=== PATIENT | female | born 1965 ===

== ENCOUNTER 2020-03-19 13:12 | Outpatient (REF) | payer OTHER, SELFPAY ==
[2020-03-19 14:03] LABS: Basophils Percent Auto 0.3 % (0-2); Eosinophils Percent Auto 1.1 % (0-4); Hematocrit 34.5 % (37-47); Hemoglobin 10.8 g/dl (12.0-16.0); Imm Gran Abs Auto 0.01 X10*3/uL (0.00-0.03); Imm Gran Pct Auto 0.3 % (0.0-0.4); Lymphocytes Absolute Auto 0.6 X10*3/uL (1.2-4.9); Lymphocytes Percent Auto 16.9 % (20-40); MANUAL DIFF FLAG SCAN; Mean Corpuscular HGB Conc 31.3 g/dl (31.0-35.0); Mean Corpuscular Hemoglobin 28.4 pg (27.0-33.0); Mean Corpuscular Volume 90.8 fL (80-98); Mean Platelet Volume 9.9 fL (9.4-12.3); Monocytes Absolute Auto 0.3 X10*3/uL (0.1-1.2); Monocytes Percent Auto 6.7 % (2-11); Neutrophils Absolute Auto 2.8 X10*3/uL (2.0-8.3); Neutrophils Percent Auto 74.7 % (45-73); Platelet Count 166 X10*3/uL (160-400); Red Cell Distribution Width 12.4 % (11.0-16.0); SCAN SMEAR FLAG 1; White Blood Count 3.7 X10*3/uL (4.8-10.8)
[2020-03-19 14:36] LABS: Alanine Aminotransferase 18 U/L (0-31); Albumin Level 4.2 g/dL (3.5-5.0); Alkaline Phosphatase 45 U/L (39-117); Anion Gap 12 (12-20); Aspartate Amino Transferase 18 U/L (5-31); Bilirubin Total 0.4 mg/dL (0.0-1.0); Blood Urea Nitrogen 21 mg/dL (9-16); Calcium 8.8 mg/dL (8.4-10.2); Carbon Dioxide 27 mmol/L (22-29); Chloride 103 mmol/L (96-108); Estimated Glomerular Filt Rate > 60; Glucose Random 76 mg/dL (60-115); Sodium 138 mmol/L (135-145); Total Protein 6.6 g/dL (6.5-8.0)
[2020-03-19 14:44] LABS: SLIDE REVIEW VERIFIED
[2020-03-20 13:01] LABS: CA 27.29 23 U/mL (<38)
== END 2020-03-19 13:13 | disposition home or self-care (01) ==
LOC: HO.LAB 13:12
PROVIDERS: Visit Provider Internal Medicine Medical Oncology
DX: D72.819 Decreased white blood cell count, unspecified (principal)
CPT/HCPCS: 36415; 80053; 85025; 86300

== ENCOUNTER 2020-03-30 11:50 | Outpatient (REF) | payer OTHER, SELFPAY ==
[2020-03-30 13:22] LABS: MANUAL DIFF FLAG NO
[2020-03-30 13:28] LABS: Basophils Percent Auto 0.3 % (0-2); Eosinophils Percent Auto 0.6 % (0-4); Hematocrit 35.1 % (37-47); Hemoglobin 11.1 g/dl (12.0-16.0); Imm Gran Abs Auto 0.02 X10*3/uL (0.00-0.03); Imm Gran Pct Auto 0.6 % (0.0-0.4); Lymphocytes Absolute Auto 0.8 X10*3/uL (1.2-4.9); Lymphocytes Percent Auto 22.8 % (20-40); Mean Corpuscular HGB Conc 31.6 g/dl (31.0-35.0); Mean Corpuscular Hemoglobin 28.9 pg (27.0-33.0); Mean Corpuscular Volume 91.4 fL (80-98); Mean Platelet Volume 9.8 fL (9.4-12.3); Monocytes Absolute Auto 0.3 X10*3/uL (0.1-1.2); Monocytes Percent Auto 9.8 % (2-11); Neutrophils Absolute Auto 2.2 X10*3/uL (2.0-8.3); Neutrophils Percent Auto 65.9 % (45-73); Platelet Count 177 X10*3/uL (160-400); Red Blood Count 3.84 X10*6/uL (4.20-5.50); White Blood Count 3.4 X10*3/uL (4.8-10.8)
[2020-03-30 13:56] LABS: Glucose Urine UA NEG (NEG); Leukocyte Esterase Urine NEG (NEG); Nitrite Urine NEG (NEG); Urine Blood NEG (NEG); Urine Ketones NEG (NEG); Urine Protein NEG (NEG-TRACE)
[2020-03-30 13:59] LABS: Alanine Aminotransferase 24 U/L (0-31); Albumin Level 4.3 g/dL (3.5-5.0); Alkaline Phosphatase 41 U/L (39-117); Anion Gap 12 (12-20); Aspartate Amino Transferase 22 U/L (5-31); Bilirubin Total 0.4 mg/dL (0.0-1.0); Blood Urea Nitrogen 18 mg/dL (9-16); C Reactive Protein 0.05 mg/dL (< or = 0.50); Calcium 8.7 mg/dL (8.4-10.2); Carbon Dioxide 29 mmol/L (22-29); Chloride 104 mmol/L (96-108); Estimated Glomerular Filt Rate > 60; Glucose Random 74 mg/dL (60-115); Potassium 4.4 mmol/l (3.3-5.1); Sodium 141 mmol/L (135-145); Total Protein 6.9 g/dL (6.5-8.0)
[2020-03-30 14:06] LABS: Appearance Urine HAZY; Color Urine YELLOW
[2020-03-30 14:13] LABS: Erythrocyte Sedimentation Rate 7 MM/HR (0-20)
[2020-03-31 12:08] LABS: Complement C3 99 mg/dL (83-193)
[2020-04-02 13:53] LABS: DNAds, Crithidia Antibody Negative (Negative)
== END 2020-03-30 11:51 | disposition home or self-care (01) ==
LOC: HO.LAB 11:50
PROVIDERS: PCP Internal Medicine; Visit Provider Student in an Organized Health Care Education/Training Program
DX: M05.79 Rheumatoid arthritis with rheumatoid factor of multiple sites without organ or systems involvement (principal); M32.9 Systemic lupus erythematosus, unspecified; I73.00 Raynaud's syndrome without gangrene
CPT/HCPCS: 36415; 80053; 81003; 85025; 85652; 86140; 86160; 86255

== ENCOUNTER → 2020-04-03 11:04 | Outpatient (BNVA) | payer OTHER, SELFPAY | PROVIDERS: PCP Internal Medicine; Referring Provider Internal Medicine; Visit Provider Nurse Practitioner | DX: Z76.89 Persons encountering health services in other specified circumstances (principal) ==

== ENCOUNTER 2020-05-26 15:23 | Outpatient (REF) | payer OTHER, SELFPAY ==
--- NOTE | 2020-05-26 17:15 | XR_ITS ---
EXAMINATION: XR MANDIBLE CLINICAL INFORMATION: Jaw pain. COMPARISON: None. TECHNIQUE: 4 views of the mandible were obtained. FINDINGS: No acute fracture or dislocation. No lytic or blastic osseous lesion. Mild asymmetric sclerosis at the right temporomandibular joint. The visualized paraspinal soft tissues are clear. No air-fluid level. No abnormal soft tissue calcification. XR/XR mandible min 4V IMPRESSION: Asymmetric sclerosis at the right temporomandibular joint.
[2020-05-26 18:20] LABS: Basophils Percent Auto 0.2 % (0-2); Eosinophils Percent Auto 0.5 % (0-4); Hematocrit 36.8 % (37-47); Hemoglobin 11.5 g/dl (12.0-16.0); Imm Gran Abs Auto 0.01 X10*3/uL (0.00-0.03); Imm Gran Pct Auto 0.2 % (0.0-0.4); Lymphocytes Absolute Auto 0.7 X10*3/uL (1.2-4.9); Lymphocytes Percent Auto 17.7 % (20-40); MANUAL DIFF FLAG NO; Mean Corpuscular HGB Conc 31.3 g/dl (31.0-35.0); Mean Corpuscular Hemoglobin 28.4 pg (27.0-33.0); Mean Corpuscular Volume 90.9 fL (80-98); Mean Platelet Volume 10.1 fL (9.4-12.3); Monocytes Absolute Auto 0.3 X10*3/uL (0.1-1.2); Monocytes Percent Auto 7.8 % (2-11); Neutrophils Percent Auto 73.6 % (45-73); Platelet Count 190 X10*3/uL (160-400); Red Blood Count 4.05 X10*6/uL (4.20-5.50); Red Cell Distribution Width 12.4 % (11.0-16.0); White Blood Count 4.1 X10*3/uL (4.8-10.8)
[2020-05-26 18:30] LABS: Glucose Urine UA NEG (NEG); Leukocyte Esterase Urine TRACE (NEG); Nitrite Urine NEG (NEG); Specific Gravity - Urine >= 1.030 (1.005-1.025); Urine Blood NEG (NEG); Urine Ketones NEG (NEG); Urine Protein TRACE MG/DL (NEG-TRACE)
[2020-05-26 18:32] LABS: Appearance Urine CLOUDY; Color Urine DARK YELLOW
[2020-05-26 18:41] LABS: Bacteria Urine 1+ /LPF; Calcium Oxalate Crystals Urine 1+ /LPF; Mucus Urine 1+ /LPF; RBC Urine 0 /HPF (0); Squamous Epithelial Cell Urine TRACE /LPF
[2020-05-26 18:54] LABS: Alanine Aminotransferase 36 U/L (0-31); Albumin Level 4.4 g/dL (3.5-5.0); Alkaline Phosphatase 50 U/L (39-117); Anion Gap 13 (12-20); Aspartate Amino Transferase 27 U/L (5-31); Bilirubin Total 0.6 mg/dL (0.0-1.0); Blood Urea Nitrogen 13 mg/dL (9-16); C Reactive Protein 0.12 mg/dL (< or = 0.50); Calcium 9.3 mg/dL (8.4-10.2); Carbon Dioxide 31 mmol/L (22-29); Chloride 105 mmol/L (96-108); Estimated Glomerular Filt Rate > 60; Glucose Random 76 mg/dL (60-115); Potassium 3.8 mmol/l (3.3-5.1); Sodium 145 mmol/L (135-145)
[2020-05-26 19:09] LABS: Erythrocyte Sedimentation Rate 12 MM/HR (0-20)
[2020-05-28 12:02] LABS: Complement C3 72 mg/dL (83-193)
[2020-05-28 12:26] LABS: Anti DNA DS Antibody 1 IU/mL
== END 2020-05-26 15:24 | disposition home or self-care (01) ==
LOC: HO.LAB 15:23
PROVIDERS: PCP Internal Medicine; Referring Provider Internal Medicine; Visit Provider Student in an Organized Health Care Education/Training Program
DX: M32.9 Systemic lupus erythematosus, unspecified (principal); R68.84 Jaw pain; E03.9 Hypothyroidism, unspecified
CPT/HCPCS: 36415; 70110; 80053; 81001; 85025; 85652; 86140; 86160; 86225; 99212

== ENCOUNTER 2020-06-01 12:24 | Outpatient (REF) | payer OTHER, SELFPAY ==
[2020-06-01 13:55] LABS: Alanine Aminotransferase 30 U/L (0-31); Albumin Level 4.2 g/dL (3.5-5.0); Alkaline Phosphatase 40 U/L (39-117); Anion Gap 12 (12-20); Aspartate Amino Transferase 21 U/L (5-31); Bilirubin Total 0.6 mg/dL (0.0-1.0); Blood Urea Nitrogen 18 mg/dL (9-16); Calcium 8.7 mg/dL (8.4-10.2); Carbon Dioxide 29 mmol/L (22-29); Chloride 107 mmol/L (96-108); Estimated Glomerular Filt Rate > 60; Glucose Fasting 88 mg/dL (60-99); Potassium 4.7 mmol/L (3.3-5.1); Sodium 143 mmol/L (135-145); Total Protein 6.7 g/dL (6.5-8.0)
[2020-06-01 14:03] LABS: Glucose Urine UA NEG (NEG); Leukocyte Esterase Urine 1+ (NEG); Nitrite Urine NEG (NEG); Specific Gravity - Urine >= 1.030 (1.005-1.025); Urine Blood TRACE (NEG); Urine Ketones NEG (NEG); Urine Protein NEG (NEG-TRACE)
[2020-06-01 14:06] LABS: Appearance Urine HAZY; Color Urine YELLOW
[2020-06-01 14:16] LABS: Free T4 (Free Thyroxine) 1.22 ng/dL (0.71-1.85); Thyroid Stimulating Hormone 0.39 uIU/mL (0.32-4.0); Vitamin D 25-OH Total 82.9 ng/mL (>30)
[2020-06-01 14:31] LABS: Bacteria Urine TRACE /LPF; Mucus Urine 4+ /LPF; RBC Urine 0-2 /HPF (0); Squamous Epithelial Cell Urine 2+ /LPF
[2020-06-04 16:42] LABS: N-Telopeptide 34 (see note); NTXCreaRU 207 mg/dL (20-275)
== END 2020-06-01 12:25 | disposition home or self-care (01) ==
LOC: HO.LAB 12:24
PROVIDERS: Internal Medicine Endocrinology, Diabetes & Metabolism; PCP Internal Medicine; Visit Provider Student in an Organized Health Care Education/Training Program
DX: M32.9 Systemic lupus erythematosus, unspecified (principal)
CPT/HCPCS: 36415; 80053; 81001; 82306; 82523; 84439; 84443

== ENCOUNTER → 2020-06-04 12:48 | Outpatient (BNVA) | payer OTHER, SELFPAY | PROVIDERS: PCP Internal Medicine; Visit Provider Internal Medicine Endocrinology, Diabetes & Metabolism ==

== ENCOUNTER 2020-06-05 14:21 | Outpatient (REF) | payer OTHER, SELFPAY | END 2020-06-05 14:22 | disposition home or self-care (01) | LOC: HO.LAB 14:21 | PROVIDERS: PCP Internal Medicine; Visit Provider Internal Medicine | DX: Z20.822 Contact with and (suspected) exposure to COVID-19 (principal) | CPT/HCPCS: 36415; C9803; U0003; U0005 ==

== ENCOUNTER → 2020-06-12 10:06 | Outpatient (BNVA) | payer OTHER, SELFPAY | PROVIDERS: PCP Internal Medicine; Visit Provider Nurse Practitioner ==

== ENCOUNTER 2020-06-12 16:46 | Outpatient (REF) | payer OTHER, SELFPAY | END 2020-06-12 16:47 | disposition home or self-care (01) | LOC: HO.LAB 16:46 | PROVIDERS: Visit Provider Internal Medicine | DX: Z20.822 Contact with and (suspected) exposure to COVID-19 (principal) | CPT/HCPCS: 36415; C9803; U0003; U0005 ==

== ENCOUNTER → 2020-07-02 12:46 | Outpatient (BNVA) | payer OTHER, SELFPAY | PROVIDERS: PCP Internal Medicine; Visit Provider Nurse Practitioner ==

== ENCOUNTER 2020-08-01 10:19 | Outpatient (REF) | payer OTHER, SELFPAY ==
[2020-08-01 11:30] LABS: MANUAL DIFF FLAG NO
[2020-08-01 11:37] LABS: Basophils Percent Auto 0.6 % (0-2); Eosinophils Percent Auto 0.6 % (0-4); Hematocrit 36.1 % (37-47); Hemoglobin 11.3 g/dl (12.0-16.0); Lymphocytes Absolute Auto 0.8 X10*3/uL (1.2-4.9); Lymphocytes Percent Auto 22.9 % (20-40); Mean Corpuscular HGB Conc 31.3 g/dl (31.0-35.0); Mean Corpuscular Hemoglobin 28.3 pg (27.0-33.0); Mean Corpuscular Volume 90.3 fL (80-98); Mean Platelet Volume 9.6 fL (9.4-12.3); Monocytes Absolute Auto 0.2 X10*3/uL (0.1-1.2); Monocytes Percent Auto 7.1 % (2-11); Neutrophils Absolute Auto 2.3 X10*3/uL (2.0-8.3); Neutrophils Percent Auto 68.8 % (45-73); Platelet Count 178 X10*3/uL (160-400); Red Cell Distribution Width 12.5 % (11.0-16.0); White Blood Count 3.4 X10*3/uL (4.8-10.8)
[2020-08-01 12:12] LABS: Alanine Aminotransferase 36 U/L (0-31); Albumin Level 4.3 g/dL (3.5-5.0); Alkaline Phosphatase 44 U/L (39-117); Anion Gap 13 (12-20); Aspartate Amino Transferase 29 U/L (5-31); Bilirubin Total 0.3 mg/dL (0.0-1.0); Blood Urea Nitrogen 18 mg/dL (9-16); Calcium 8.9 mg/dL (8.4-10.2); Carbon Dioxide 28 mmol/L (22-29); Chloride 104 mmol/L (96-108); Estimated Glomerular Filt Rate > 60; Glucose Random 75 mg/dL (60-115); Potassium 4.1 mmol/L (3.3-5.1); Sodium 141 mmol/L (135-145); Total Protein 7.1 g/dL (6.5-8.0)
[2020-08-01 12:37] LABS: Vitamin D 25-OH Total 59.1 ng/mL (>30)
[2020-08-03 11:11] LABS: CA 27.29 24 U/mL (<38)
== END 2020-08-01 10:20 | disposition home or self-care (01) ==
LOC: HO.LAB 10:19
PROVIDERS: Absent Provider Internal Medicine Endocrinology, Diabetes & Metabolism; PCP Internal Medicine; Visit Provider Internal Medicine Medical Oncology
DX: E55.9 Vitamin D deficiency, unspecified (principal); D72.819 Decreased white blood cell count, unspecified
CPT/HCPCS: 36415; 80053; 82306; 85025; 86300

== ENCOUNTER → 2020-08-26 16:23 | Outpatient (BNVA) | payer OTHER, SELFPAY | PROVIDERS: Visit Provider Student in an Organized Health Care Education/Training Program | DX: M05.9 Rheumatoid arthritis with rheumatoid factor, unspecified (principal); M32.9 Systemic lupus erythematosus, unspecified; I73.00 Raynaud's syndrome without gangrene | CPT/HCPCS: 99212 ==

== ENCOUNTER 2020-09-07 07:54 | Day surgery (SDC) | payer OTHER, SELFPAY ==
[2020-09-02 10:16] VITALS: BMI 18.8
--- NOTE | 2020-09-03 13:26 | P.CONAN_ITS ---
Documented by User: Henny Dolly 09/03/20 13:28 HPI - Anesthesia Eval Consult details Narrative: 55yo F for Upper Endoscopy Multiple med allergies PMFSH Active Problems Active Problems: All Active Problems (Updated 07/02/20 @ 13:51 by AICHA Manzo) Small bowel motility disorder (Acute) Tubular adenoma of colon (Acute) Chronic gastritis (Acute) Vitamin D deficiency (Acute) Hypothyroidism (Acute) Osteoporosis (Acute) Raynaud's disease without gangrene (Acute) Lupus (systemic lupus erythematosus) (Acute) Seropositive rheumatoid arthritis (Acute) Headache (Acute) Jaw pain (Acute) Small bowel motility disorder (Acute) GERD (gastroesophageal reflux disease) (Acute) Chronic idiopathic constipation (Acute) Bipolar depression (Acute) Anxiety (Acute) Primary insomnia (Acute) History of breast cancer (Acute) Polyarthralgia (Acute) Leukopenia (Acute) Acquired hypothyroidism (Acute) Systemic lupus erythematosus (Acute) Gingivitis (Acute) Left temporomandibular joint disorder, unspecified (Acute) Past Medical History Medical History Acquired hypothyroidism Anxiety Bipolar depression Constipation Gingivitis Headache History of breast cancer Hypothyroidism Jaw pain Left temporomandibular joint disorder, unspecified Leukopenia Lupus (systemic lupus erythematosus) Osteoporosis Polyarthralgia Primary insomnia Raynaud's disease without gangrene Seropositive rheumatoid arthritis Systemic lupus erythematosus Vitamin D deficiency Family History Family History Father Hypertension Prostate cancer Mother Breast cancer Hypertension Asthma Maternal Aunt Breast cancer Maternal Grandmother Colon cancer Maternal Aunt Breast cancer Surgical History Surgical History History of bilateral mastectomy History of section History of cholecystectomy History of esophagogastroduodenoscopy (EGD) History of total abdominal hysterectomy and bilateral salpingo-oophorectomy History of tubal ligation Hx of colonoscopy Social History Social History Household Members: Children Household Members Other:: 2 daughters Alcohol intake: current Alcohol intake frequency: does not drink Smoking Status: Never smoker Meds Allergies Allergy/AdvReac Type Severity Reaction Status Date / Time codeine [CODEINE] Allergy Intermediate ITCHING Verified 08/26/20 16:27 hydroxychloroquine Allergy Intermediate VOMITING Verified 08/26/20 16:27 [From PLAQUENIL] morphine [MORPHINE] Allergy Intermediate ITCHING Verified 08/26/20 16:27 oxycodone [From PERCOCET] Allergy Intermediate ITCHING Verified 08/26/20 16:27 tramadol [From ULTRAM] Allergy Intermediate ITCHING Verified 08/26/20 16:27 Cortisone Allergy Unknown Unknown Verified 08/26/20 16:27 levothyroxine sodium Allergy Unknown rash,throat Verified 08/26/20 16:27 closes prednisone Allergy Unknown unknown Verified 08/26/20 16:27 Corticosteroids AdvReac Severe DIFFICULTY Verified 07/02/20 12:50 (Glucocorticoids) BREATHING [CORTICOSTEROIDS (GLUCOCORTICOIDS)] acetaminophen [Percocet] AdvReac Unknown Unknown Verified 07/02/20 12:50 duloxetine AdvReac Unknown Unknown Verified 07/02/20 12:50 Home Medications Medication Instructions Recorded Confirmed Last Taken Type bupropion HCl 300 mg 24 hr tablet, 300 mg PO DAILY 02/24/20 06/04/20 Unknown History extended release docusate sodium 100 mg capsule 100 mg PO DAILY 04/03/20 06/04/20 Unknown History trazodone 150 mg tablet 150 mg PO BEDTIME tab 05/25/20 06/04/20 Unknown History aripiprazole 5 mg tablet 5 mg PO DAILY 06/04/20 06/04/20 Unknown History bupropion HCl 150 mg 24 hr tablet, 150 mg PO QAM 06/04/20 06/04/20 Unknown History extended release orphenadrine citrate 100 mg 100 mg PO BID tab 06/04/20 06/04/20 Unknown History tablet,extended release bisacodyl 5 mg tablet,delayed 10 mg PO DAILY tab 06/12/20 06/12/20 Unknown History release Exam Exam Date and Time: September 03, 2020 1326 Height,Weight and Vital Signs: Height 5 ft 2 in Weight 46.72 kg Pertinent Lab Results Pertinent Lab Results: Laboratory Tests 08/01/20 08/01/20 10:40 10:40 WBC 3.4 L Hgb 11.3 L Hct 36.1 L Plt Count 178 Sodium 141 Potassium 4.1 Chloride 104 Carbon Dioxide 28 BUN 18 H Creatinine 0.68 Assessment and Plan Assessment Anesthesia Assessment: Chart Reviewed Documented by User: Ursula Paz 09/07/20 14:09 [facility] Past Medical History Medical History Acquired hypothyroidism Anxiety Bipolar depression Constipation Gingivitis Headache History of breast cancer Hypothyroidism Jaw pain Left temporomandibular joint disorder, unspecified Leukopenia Lupus (systemic lupus erythematosus) Osteoporosis Polyarthralgia Primary insomnia Raynaud's disease without gangrene Seropositive rheumatoid arthritis Systemic lupus erythematosus Vitamin D deficiency Family History Family History Father Hypertension Prostate cancer Mother Breast cancer Hypertension Asthma Maternal Aunt Breast cancer Maternal Grandmother Colon cancer Maternal Aunt Breast cancer Family history of problems with anesthesia: No Surgical History Surgical History History of bilateral mastectomy History of section History of cholecystectomy History of esophagogastroduodenoscopy (EGD) History of total abdominal hysterectomy and bilateral salpingo-oophorectomy History of tubal ligation Hx of colonoscopy History of Problems with Anesthesia: No Social History Social History Household Members: Children Household Members Other:: 2 daughters Alcohol intake: current Alcohol intake frequency: does not drink Smoking Status: Never smoker Meds Allergies Allergy/AdvReac Type Severity Reaction Status Date / Time codeine [CODEINE] Allergy Intermediate ITCHING Verified 08/26/20 16:27 hydroxychloroquine Allergy Intermediate VOMITING Verified 08/26/20 16:27 [From PLAQUENIL] morphine [MORPHINE] Allergy Intermediate ITCHING Verified 08/26/20 16:27 oxycodone [From PERCOCET] Allergy Intermediate ITCHING Verified 08/26/20 16:27 tramadol [From ULTRAM] Allergy Intermediate ITCHING Verified 08/26/20 16:27 Cortisone Allergy Unknown Unknown Verified 08/26/20 16:27 levothyroxine sodium Allergy Unknown rash,throat Verified 08/26/20 16:27 closes prednisone Allergy Unknown unknown Verified 08/26/20 16:27 Corticosteroids AdvReac Severe DIFFICULTY Verified 07/02/20 12:50 (Glucocorticoids) BREATHING [CORTICOSTEROIDS (GLUCOCORTICOIDS)] acetaminophen [Percocet] AdvReac Unknown Unknown Verified 07/02/20 12:50 duloxetine AdvReac Unknown Unknown Verified 07/02/20 12:50 Home Medications Medication Instructions Recorded Confirmed Last Taken Type bupropion HCl 300 mg 24 hr tablet, 300 mg PO DAILY 02/24/20 06/04/20 Unknown History extended release docusate sodium 100 mg capsule 100 mg PO DAILY 04/03/20 06/04/20 Unknown History trazodone 150 mg tablet 150 mg PO BEDTIME tab 05/25/20 06/04/20 Unknown History aripiprazole 5 mg tablet 5 mg PO DAILY 06/04/20 06/04/20 Unknown History bupropion HCl 150 mg 24 hr tablet, 150 mg PO QAM 06/04/20 06/04/20 Unknown History extended release orphenadrine citrate 100 mg 100 mg PO BID tab 06/04/20 06/04/20 Unknown History tablet,extended release bisacodyl 5 mg tablet,delayed 10 mg PO DAILY tab 06/12/20 06/12/20 Unknown History release Exam Height,Weight and Vital Signs: Vital Signs Temp Pulse Resp BP Pulse Ox 97.6 F 72 15 127/78 99 09/07/20 08:53 09/07/20 08:53 09/07/20 08:53 09/07/20 08:53 09/07/20 08:53 Narrative Narrative: Jaw clicks occasionally but does not think dislocates Airway Mallampati Class: IV (Limited opening secondary to pain and ? TMJ syndrome. Sli ght overbite) TM Dist: >3cm Neck ROM: Full Heart: RRR Lungs: CTAB Assessment and Plan Assessment Anesthesia Assessment: Anesthesia Plan Discussed and Chart Reviewed Final Anesthetic Review NPO: Yes ASA Class: III Final Preanesthetic Review: No Changes in Pt Med Stat, Meds/Allgs Chart Reviewed, Consent Obtained/Reviewed and Anes Risks/Benef Reviewed Patient Risk: Intermediate Procedure Risk: Low Assessment/Block/Sedation in SS: Assess/Block/Sedation-SS Anesthetic Plan Anesthetic Plan: MAC: Disposition: Standard PACU
[2020-09-07 08:53] VITALS: BP 127/78; PULSE 72; RESP 15; TEMP 36.4; O2SAT 99; BMI 18.8
[2020-09-07] MEDS: Lactated Ringers 1,000 ML 100 ML IVCONT (09:11)
--- NOTE | 2020-09-07 09:12 | MHC.SHP ---
Pre-Procedural Eval Section B Chief Complaint: GERD Relevant Family History (Specify if Yes): No Relevant Social History: None Present Medications: see Short Stay Collaborative assessment Medical History: Significant History (Acquired hypothyroidism Anxiety Bipolar depression Constipation Gingivitis Headache History of breast cancer Hypothyroidism Jaw pain Left temporomandibular joint disorder, unspecified Leukopenia Lupus (systemic lupus erythematosus) Osteoporosis Polyarthralgia Primary insomnia Raynaud's disease witho) History of Previous Operations: Relevant previous surgery/procedure and date(s) (History of bilateral mastectomy History of section History of cholecystectomy History of esophagogastroduodenoscopy (EGD) History of total abdominal hysterectomy and bilateral salpingo-oophorectomy History of tubal ligation Hx of colonoscopy) Allergies: Allergies Allergy/AdvReac Type Severity Reaction Status Date / Time codeine [CODEINE] Allergy Intermediate ITCHING Verified 08/26/20 16:27 hydroxychloroquine Allergy Intermediate VOMITING Verified 08/26/20 16:27 [From PLAQUENIL] morphine [MORPHINE] Allergy Intermediate ITCHING Verified 08/26/20 16:27 oxycodone [From PERCOCET] Allergy Intermediate ITCHING Verified 08/26/20 16:27 tramadol [From ULTRAM] Allergy Intermediate ITCHING Verified 08/26/20 16:27 Cortisone Allergy Unknown Unknown Verified 08/26/20 16:27 levothyroxine sodium Allergy Unknown rash,throat Verified 08/26/20 16:27 closes prednisone Allergy Unknown unknown Verified 08/26/20 16:27 Corticosteroids AdvReac Severe DIFFICULTY Verified 07/02/20 12:50 (Glucocorticoids) BREATHING [CORTICOSTEROIDS (GLUCOCORTICOIDS)] acetaminophen [Percocet] AdvReac Unknown Unknown Verified 07/02/20 12:50 duloxetine AdvReac Unknown Unknown Verified 07/02/20 12:50 Review of Systems Sugical H&P ROS: Negative: Constitution, Cardiovascular, Respiratory, Neurological, Psychiatric, Hem-Onc, Allergic/Immunologic, Gastrointestinal, Genitourinary, Musculoskeletal, Integumentary, Endocrine and Eyes/Ears/Nose/Throat Exam Surgical H&P Exam: Normal: HEENT, Normal: Heart, Normal: Lungs, Normal: Extremities, Normal: Abdomen, Normal: Skin and Normal: Neurological Plan Diagnosis/Plan: Unchanged I have reviewed the history and physical and performed a pertinent physical examination on my patient. No changes have occurred unless specified.
--- NOTE | 2020-09-07 09:35 | P.BOP_ITS ---
Brief Operative Note Date of Service: 09/07/20 Pre-op diagnosis: epigastric pain and dysphagia Post-op diagnosis: same Procedure: see op note Surgeon: Adenike Shelton MD Anesthesia: MAC Was an Physical Therapy Assistant Instructor used for this Procedure?: No Estimated blood loss (mL): 0 Condition: stable Disposition: PACU
--- NOTE | 2020-09-07 09:47 | W.PM.OPN ---
Operative Note Operative Note Date of Service: 09/07/20 Narrative: Procedure Description: EGD FLEXIBLE TRANSORAL UPPER GASTROINTESTINAL ENDOSCOPY UPPER ENDOSCOPY Consent: Indications for the procedure and potential complications of bleeding, perforation, reaction to medications and missed diagnosis were discussed with the patient and informed consent was obtained. Instrument: Olympus GIF H 190 J mid size upper endoscope Monitoring: Vital signs and clinical assessment, continuous EKG monitoring, Pulse oximetry, Carbon Dioxide monitoring and blood pressure monitoring were done throughout the procedure. Procedure: The patient was placed in the left lateral decubitis position and pre-procedure medications were administered and a bite block was placed. The endoscope was inserted into the mouth and advanced under direct vision to the third part of duodenum. A careful inspection was made as the upper endoscope was withdrawn including a retroflexed examination of the proximal stomach; Findings and interventions are described below. Findings: Larynx:normal Esophagus: GE junction at 36 cm, diaphragm hiatus at 36 cm, no varices or esophagitis. Random esophageal bx taken as well as from GEJ. Balloon dilation done at GEJ to 20 mm-no disruption noted, balloon then stretched at UES to 19 mm with superficial tear and disruption noted Stomach: Patchy gastric erythema. Biopsies were obtained. Grade 2 flap valve on retroflexed examination of the cardia. There was also a lack of peristalsis. Duodenum: Patchy erythema, bx taken Intervention: Biopsies as noted above, ballon dilation Impression/Findings: duodenitis gastritis upper esophageal stricture possible gastroparesis PLAN: clears today and advance diet tomorrow will send magic mouthwash for any discomfort from stretching today stick to the PPi consider gastric emptying study
[2020-09-07 09:55] VITALS: BP 118/68; PULSE 77; TEMP 37.2; O2SAT 100
[2020-09-07 10:10] VITALS: BP 124/63; PULSE 72; RESP 18; TEMP 37.2; O2SAT 99
== END 2020-09-07 11:09 | disposition home or self-care (01) ==
PROVIDERS: PCP Internal Medicine; Visit Provider Internal Medicine Gastroenterology
PROC: 0DJ08ZZ Inspection of Upper Intestinal Tract, Via Natural or Artificial Opening Endoscopic (ICD-10-PCS; CPT 43235; principal; 2020-09-07 09:20)
DX: K21.9 Gastro-esophageal reflux disease without esophagitis (principal); R13.10 Dysphagia, unspecified; K20.80 Other esophagitis without bleeding; K31.84 Gastroparesis; K29.80 Duodenitis without bleeding; K59.04 Chronic idiopathic constipation; K44.9 Diaphragmatic hernia without obstruction or gangrene; M32.9 Systemic lupus erythematosus, unspecified; I73.00 Raynaud's syndrome without gangrene; M81.0 Age-related osteoporosis without current pathological fracture; M05.9 Rheumatoid arthritis with rheumatoid factor, unspecified; Z90.49 Acquired absence of other specified parts of digestive tract; Z85.3 Personal history of malignant neoplasm of breast; Z79.899 Other long term (current) drug therapy
CPT/HCPCS: 43249; 43239; 88305; 88312; 88342; C1726

== ENCOUNTER → 2020-10-19 09:08 | Outpatient (BNVA) | payer OTHER, SELFPAY | PROVIDERS: PCP Internal Medicine; Visit Provider Nurse Practitioner ==

== ENCOUNTER 2020-11-07 10:13 | Outpatient (REF) | payer OTHER, SELFPAY ==
[2020-11-07 11:04] LABS: MANUAL DIFF FLAG NO
[2020-11-07 11:06] LABS: Basophils Percent Auto 0.3 % (0-2); Hematocrit 34.4 % (37-47); Hemoglobin 10.9 g/dl (12.0-16.0); Imm Gran Abs Auto 0.01 X10*3/uL (0.00-0.03); Imm Gran Pct Auto 0.3 % (0.0-0.4); Lymphocytes Absolute Auto 0.7 X10*3/uL (1.2-4.9); Lymphocytes Percent Auto 24.9 % (20-40); Mean Corpuscular HGB Conc 31.7 g/dl (31.0-35.0); Mean Corpuscular Hemoglobin 27.9 pg (27.0-33.0); Mean Corpuscular Volume 88.2 fL (80-98); Mean Platelet Volume 9.4 fL (9.4-12.3); Monocytes Absolute Auto 0.3 X10*3/uL (0.1-1.2); Monocytes Percent Auto 10.7 % (2-11); Neutrophils Absolute Auto 1.8 X10*3/uL (2.0-8.3); Neutrophils Percent Auto 62.8 % (45-73); Platelet Count 167 X10*3/uL (160-400); Red Cell Distribution Width 13.1 % (11.0-16.0); White Blood Count 2.9 X10*3/uL (4.8-10.8)
[2020-11-07 11:09] LABS: Glucose Urine UA NEG (NEG); Leukocyte Esterase Urine NEG (NEG); Nitrite Urine NEG (NEG); PH 6.5 (5.0-8.0); Urine Blood NEG (NEG); Urine Ketones NEG (NEG); Urine Protein NEG (NEG-TRACE)
[2020-11-07 11:19] LABS: Appearance Urine CLEAR; Color Urine YELLOW
[2020-11-07 11:31] LABS: Alanine Aminotransferase 33 U/L (0-31); Albumin Level 4.1 g/dL (3.5-5.0); Alkaline Phosphatase 47 U/L (39-117); Anion Gap 13 (12-20); Aspartate Amino Transferase 28 U/L (5-31); Bilirubin Total 0.4 mg/dL (0.0-1.0); Blood Urea Nitrogen 16 mg/dL (9-16); C Reactive Protein 0.12 mg/dL (< or = 0.50); Calcium 9.4 mg/dL (8.4-10.2); Carbon Dioxide 29 mmol/L (22-29); Chloride 105 mmol/L (96-108); Estimated Glomerular Filt Rate > 60; Glucose Random 82 mg/dL (60-115); Potassium 4.1 mmol/L (3.3-5.1); Sodium 143 mmol/L (135-145); Total Protein 6.8 g/dL (6.5-8.0)
[2020-11-07 11:46] LABS: Erythrocyte Sedimentation Rate 11 MM/HR (0-20)
[2020-11-07 11:56] LABS: RBC Urine 0 /HPF (0); Squamous Epithelial Cell Urine 1+ /LPF; WBC Urine 0-2 /HPF (0-4)
[2020-11-09 11:37] LABS: Complement C3 81 mg/dL (83-193)
[2020-11-11 07:12] LABS: Anti DNA DS Antibody 1 IU/mL
== END 2020-11-07 10:14 | disposition home or self-care (01) ==
LOC: HO.LAB 10:13
PROVIDERS: Absent Provider Nurse Practitioner; PCP Internal Medicine; Visit Provider Student in an Organized Health Care Education/Training Program
DX: M32.9 Systemic lupus erythematosus, unspecified (principal)
CPT/HCPCS: 36415; 80053; 81001; 85025; 85652; 86140; 86160; 86225

== ENCOUNTER → 2020-11-19 08:38 | Outpatient (BNVA) | payer OTHER, SELFPAY | PROVIDERS: PCP Internal Medicine; Visit Provider Nurse Practitioner ==

== ENCOUNTER 2020-11-30 15:58 | Outpatient (REF) | payer OTHER, SELFPAY ==
--- NOTE | ~2020-11-30 | XR_ITS ---
EXAMINATION: XR LUMBOSACRAL SPINE CLINICAL INFORMATION: Low back pain COMPARISON: None TECHNIQUE: Three views of the lumbosacral spine. FINDINGS: The vertebral bodies and posterior elements are normal. The disc spaces are preserved and the vertebral alignment is normal. The paraspinal soft tissues are normal. There are postsurgical darrius along the right midabdomen. XR/XR lumbar spine 2-3V IMPRESSION: Unremarkable lumbar spine exam.
== END 2020-11-30 15:59 | disposition home or self-care (01) ==
LOC: HO.XRAY 15:58
PROVIDERS: PCP Internal Medicine; Visit Provider Internal Medicine
DX: M54.5 Low back pain (principal)
CPT/HCPCS: 72100

== ENCOUNTER 2021-01-02 10:21 | Outpatient (REF) | payer OTHER, SELFPAY ==
[2021-01-02 11:22] LABS: MANUAL DIFF FLAG NO
[2021-01-02 11:36] LABS: Prothrombin Time 11.6 SEC (9.9-13.0)
[2021-01-02 11:37] LABS: Basophils Percent Auto 0.4 % (0-2); Eosinophils Percent Auto 1.1 % (0-4); Hemoglobin 10.9 g/dl (12.0-16.0); Lymphocytes Absolute Auto 0.7 X10*3/uL (1.2-4.9); Lymphocytes Percent Auto 26.4 % (20-40); Mean Corpuscular HGB Conc 32.1 g/dl (31.0-35.0); Mean Corpuscular Hemoglobin 28.5 pg (27.0-33.0); Mean Platelet Volume 9.7 fL (9.4-12.3); Monocytes Absolute Auto 0.3 X10*3/uL (0.1-1.2); Monocytes Percent Auto 10.5 % (2-11); Neutrophils Absolute Auto 1.7 X10*3/uL (2.0-8.3); Neutrophils Percent Auto 61.6 % (45-73); Platelet Count 184 X10*3/uL (160-400); Red Blood Count 3.82 X10*6/uL (4.20-5.50); Retic HGB Equivalent 32.5 pg (30.0-35.0); Reticulocyte Percent 0.7 % (0.5-1.8); Reticulocytes Absolute 0.026 X10*6/uL (0.026-0.095); White Blood Count 2.8 X10*3/uL (4.8-10.8)
[2021-01-02 11:38] LABS: Partial Thromboplastin Time 32.1 SEC (24.1-38.0)
[2021-01-02 11:41] LABS: Iron 110 mcg/dL (30-160); Percent Iron Saturation 34 % (15-50); Total Iron Binding Capacity 324 mcg/dL (228-428); Unsaturated Iron Binding 214 ug/dL
[2021-01-02 12:03] LABS: TSH reflex Free T4 1.02 uIU/mL (0.32-4.0)
[2021-01-04 08:29] LABS: Folate 12.7 ng/mL (> or = 4.0); Vitamin B12 1663 pg/mL (200-900)
[2021-01-06 06:36] LABS: Erythropoietin (EPO) 14.7 mIU/mL (2.6-18.5)
== END 2021-01-02 10:22 | disposition home or self-care (01) ==
LOC: HO.LAB 10:21
PROVIDERS: Absent Provider Nurse Practitioner; PCP Internal Medicine; Visit Provider Internal Medicine
DX: I10 Essential (primary) hypertension (principal); R23.3 Spontaneous ecchymoses; E53.8 Deficiency of other specified B group vitamins; D50.9 Iron deficiency anemia, unspecified; K59.04 Chronic idiopathic constipation
CPT/HCPCS: 36415; 81241; 82607; 82668; 82746; 83540; 84443; 85025; 85045; 85610; 85730

== ENCOUNTER → 2021-02-03 08:33 | Outpatient (BNVA) | payer OTHER, SELFPAY | PROVIDERS: PCP Internal Medicine; Referring Provider Internal Medicine; Visit Provider Internal Medicine | DX: R06.02 Shortness of breath (principal) | CPT/HCPCS: 93005; 99202 ==

== ENCOUNTER → 2021-03-19 08:33 | Outpatient (REF) | payer OTHER, SELFPAY ==
--- NOTE | 2021-03-19 08:41 | CA_ITS ---
Transthoracic Echocardiogram Patient (Last, First, Middle): Zara Velez E Gender: Female Date of : 1965 Age: 55 Procedure Date: 03/19/2021 Procedure Type: Transthoracic Echocardiogram Location: OP Height: 157.48 cm Weight: 47.63 kg BSA: 1.45 m2 Heart Rate: bpm BP: 120 / 65 mmHg [employer] Systems Designer: KASANDRA Referring MD: Ian Mishra MD Symptoms: R06.02 - Shortness of breath Conclusions: - Normal left ventricular size, thickness, systolic function, and wall motion. - Normal right ventricular cavity size and systolic function. Findings Left Ventricle Normal left ventricular size, thickness, systolic function, and wall motion. The visually estimated ejection fraction is between 55-60%. Diastolic function is normal for age. Right Ventricle Normal right ventricular cavity size and systolic function. Atria Both atria are normal in size. Aortic Valve Normal aortic valve structure and function. There is no aortic valve stenosis. There is no aortic valve regurgitation. Mitral Valve Normal mitral valve structure and function. There is trace mitral valve regurgitation. There is no mitral valve stenosis. Pulmonic Valve The pulmonic valve was not well visualized. Tricuspid Valve Normal tricuspid valve structure and function. There is no tricuspid valve regurgitation. Normal right atrial pressure. There is no evidence of pulmonary hypertension. Great Vessels All visible segments of the aorta are normal in size. The visualized portions of the pulmonary artery and branches are normal. Venous The inferior vena cava is normal in size and collapses greater than 50% with inspiration. Pericardium/Pleural Prominent epicardial adipose tissue noted. There is no evidence of pericardial effusion. Prior Study Comparison No prior study available for comparison. Measurements M-Mode Liner Measurements Normals - Women/Men LVIDd: 4.19 3.9-5.3/4.2-5.9 cm LVIDd Index: 2.89 1.9-3.2 cm/m2 LVIDs: 2.94 2.0-3.8 cm M-Mode Volumes LV EDV: 78.10 LV ESV: 33.30 2D Linear Measurements IVSd: 0.62 0.6-0.9/0.6-1.0 cm LVIDd: 4.32 3.9-5.3/4.2-5.9 cm LVIDd Index: 2.98 2.4-3.2/2.2-3.1 cm/m2 LVIDs: 3.13 2.0-3.6 cm LVPWd: 0.62 0.7-1.1 cm Ao Root: 2.40 2.1-3.5 cm LA Diam: 2.40 2.7-3.8/3.0-4.0 cm LAIDs Index: 1.66 1.5-2.3 cm/m2 LV Mass: 95.29 67-162/88-224 g LV Mass Index: 65.72 43-95/49-115 g/m2 LVOT Diam: 1.80 3.0+(-)1.3 cm 2D Systolic Function EF 4C: 53.80 >55% EF 2C: 59.50 >55% EF BiP: 57.00 >55% M-Mode Systolic Function FS: 29.80 27-47/25-43% LVEF: 57.40 >55% Mitral Valve MV Pk E: 0.92 MV PK A: 1.00 MV Decel Time: 146.00 E/A: 0.90 E'Lateral: 7.72 E'Medial: 8.05 E/E' Med: 11.50 E/E' Lat: 12.00 PHT: 43.00 MVA PHT: 5.12 Decel [place]: 6.32 Aortic Valve AoV Pk Binh: 1.14 AoV Pk Grad: 5.00 LVOT LVOT Pk Binh: 0.90 LVOT Mn Binh: 0.58 LVOT VTI: 0.18 LVOT Pk Grad: 3.00 LVOT Mn Grad: 2.00 LVOT Diam: 1.80 LVOT Area: 2.54 Diastolic Function MV Pk E: 0.92 MV Pk A: 1.00 E/A: 0.90 E'Medial: 8.05 E/E' Med: 11.50 E' Laterial: 7.72 E/E' Lat: 12.00 Right Ventricle TAPSE (mm): 2.07 Tricuspid Valve TR Pk Binh: 2.29 TR Pk Grad: 21.00 RA Press: 3.00 RVSP: 24.00 Great Vessels Aorta Ao Root-2D: 2.40 2.0-3.7 cm Updated in Other Vendor System with Status of Final Cipriano Hudson MD electronically signed on 03/22/2021 9:39:43 PM with status of Final
== END ==
LOC: HO.CARD 08:33
PROVIDERS: PCP Internal Medicine; Visit Provider Internal Medicine
DX: R06.02 Shortness of breath (principal)
CPT/HCPCS: 93306

== ENCOUNTER 2021-03-23 15:35 | Outpatient (REF) | payer OTHER, SELFPAY ==
--- NOTE | ~2021-03-23 | XR_ITS ---
EXAMINATION: XR HAND, RIGHT. XR HUMERUS, RIGHT CLINICAL INFORMATION: Right hand and arm pain COMPARISON: None TECHNIQUE: AP and lateral views of the right humerus. 3 views of the right hand. FINDINGS: Right humerus: No fracture or focal osseous lesion. Multiple surgical clips are noted in the right axilla. Right hand: Normal mineralization. Normal alignment with no fracture. No periarticular osteopenia, erosions, or suspicious soft tissue calcifications. XR/XR humerus RT IMPRESSION: Right humerus: Normal. Right hand: Normal.
--- NOTE | ~2021-03-23 | XR_ITS ---
EXAMINATION: XR HAND, RIGHT. XR HUMERUS, RIGHT CLINICAL INFORMATION: Right hand and arm pain COMPARISON: None TECHNIQUE: AP and lateral views of the right humerus. 3 views of the right hand. FINDINGS: Right humerus: No fracture or focal osseous lesion. Multiple surgical clips are noted in the right axilla. Right hand: Normal mineralization. Normal alignment with no fracture. No periarticular osteopenia, erosions, or suspicious soft tissue calcifications. XR/XR hand RT min 3V IMPRESSION: Right humerus: Normal. Right hand: Normal.
== END 2021-03-23 15:36 | disposition home or self-care (01) ==
LOC: HO.XRAY 15:35
PROVIDERS: PCP Internal Medicine; Visit Provider Nurse Practitioner Family
DX: M79.641 Pain in right hand (principal); M79.601 Pain in right arm
CPT/HCPCS: 73060; 73130

== ENCOUNTER 2021-07-01 10:28 | Outpatient (REF) | payer OTHER, SELFPAY ==
[2021-07-01 11:12] LABS: MANUAL DIFF FLAG NO
[2021-07-01 11:40] LABS: Basophils Percent Auto 0.6 % (0-2); Eosinophils Percent Auto 0.8 % (0-4); Hematocrit 38.2 % (37.0-47.0); Hemoglobin 11.9 g/dl (12.0-16.0); Imm Gran Abs Auto 0.01 X10*3/uL (0.00-0.03); Imm Gran Pct Auto 0.3 % (0.0-0.4); Lymphocytes Absolute Auto 0.7 X10*3/uL (1.2-4.9); Lymphocytes Percent Auto 18.7 % (20-40); Mean Corpuscular HGB Conc 31.2 g/dl (31.0-35.0); Mean Corpuscular Hemoglobin 28.1 pg (27.0-33.0); Mean Corpuscular Volume 90.1 fL (80.0-98.0); Mean Platelet Volume 9.5 fL (9.4-12.3); Monocytes Absolute Auto 0.4 X10*3/uL (0.1-1.2); Monocytes Percent Auto 11.4 % (2-11); Neutrophils Absolute Auto 2.5 x10*3/uL (2.0-8.3); Neutrophils Percent Auto 68.2 % (45-73); Platelet Count 224 X10*3/uL (160-400); Red Blood Count 4.24 X10*6/uL (4.20-5.50); Red Cell Distribution Width 12.7 % (11.0-16.0); White Blood Count 3.6 X10*3/uL (4.8-10.8)
[2021-07-01 11:45] LABS: Appearance Urine CLEAR; Color Urine YELLOW; Glucose Urine UA NEG (NEG); Leukocyte Esterase Urine NEG (NEG); Nitrite Urine NEG (NEG); Specific Gravity - Urine 1.025 (1.005-1.025); Urine Blood NEG (NEG); Urine Ketones 5 MG/DL (NEG); Urine Protein TRACE MG/DL (NEG-TRACE)
[2021-07-01 12:21] LABS: Erythrocyte Sedimentation Rate 14 MM/HR (0-20)
[2021-07-01 12:47] LABS: Alanine Aminotransferase 21 U/L (0-31); Albumin Level 4.4 g/dL (3.5-5.0); Alkaline Phosphatase 54 U/L (39-117); Anion Gap 13 (12-20); Aspartate Amino Transferase 19 U/L (5-31); Bilirubin Total 0.4 mg/dL (0.0-1.0); Blood Urea Nitrogen 21 mg/dL (9-16); Calcium 9.8 mg/dL (8.4-10.2); Carbon Dioxide 30 mmol/L (22-29); Chloride 103 mmol/L (96-108); Estimated Glomerular Filt Rate > 60; Glucose Random 74 mg/dL (60-115); Potassium 4.6 mmol/L (3.3-5.1); Sodium 141 mmol/L (135-145); Total Protein 7.4 g/dL (6.5-8.0)
[2021-07-01 12:59] LABS: Free T4 (Free Thyroxine) 1.23 ng/dL (0.71-1.85); Thyroid Stimulating Hormone 1.16 uIU/mL (0.32-4.0); Vitamin D 25-OH Total 61.7 ng/mL (>30)
[2021-07-01 13:13] LABS: Folate 12.9 ng/mL (> or = 4.0); Vitamin B12 902 pg/mL (200-900)
== END 2021-07-01 10:29 | disposition home or self-care (01) ==
LOC: HO.LAB 10:28
PROVIDERS: Absent Provider Internal Medicine Endocrinology, Diabetes & Metabolism; PCP Internal Medicine; Visit Provider Internal Medicine
DX: I10 Essential (primary) hypertension (principal); M25.50 Pain in unspecified joint; R53.83 Other fatigue; E03.9 Hypothyroidism, unspecified; M81.0 Age-related osteoporosis without current pathological fracture; E53.8 Deficiency of other specified B group vitamins; E55.9 Vitamin D deficiency, unspecified; M79.7 Fibromyalgia
CPT/HCPCS: 36415; 80053; 81003; 82306; 82607; 82746; 84439; 84443; 85025; 85652

== ENCOUNTER → 2021-07-09 15:29 | Outpatient (BNVA) | payer OTHER, SELFPAY | PROVIDERS: PCP Internal Medicine; Visit Provider Internal Medicine Endocrinology, Diabetes & Metabolism | DX: M81.0 Age-related osteoporosis without current pathological fracture (principal); E03.9 Hypothyroidism, unspecified | CPT/HCPCS: 99212 ==

== ENCOUNTER 2021-07-12 08:47 | Outpatient (REF) | payer OTHER, SELFPAY ==
[2021-07-12 09:16] LABS: Total Volume 24 Hour Urine 1500 mL
[2021-07-12 09:26] LABS: Creatinine, mg/dL 67.73
[2021-07-14 16:41] LABS: Calcium, 24 Hr Urine 134 mg/24 h; Calcium/Creatinine Ratio 127 mg/g creat (30-275); Creatinine 24Hr Urine 1.05 g/24 h (0.50-2.15)
[2021-07-19 20:21] LABS: N-Telopeptide 30 (see note); NTXCreaRU 50 mg/dL (20-275)
== END 2021-07-12 08:48 | disposition home or self-care (01) ==
LOC: HO.LNP 08:47
PROVIDERS: Visit Provider Internal Medicine Endocrinology, Diabetes & Metabolism
DX: M81.0 Age-related osteoporosis without current pathological fracture (principal)
CPT/HCPCS: 82340; 82523; 82570

== ENCOUNTER → 2021-07-19 08:05 | Outpatient (BNVA) | payer OTHER, SELFPAY | PROVIDERS: PCP Internal Medicine; Referring Provider Internal Medicine; Visit Provider Internal Medicine | DX: R03.0 Elevated blood-pressure reading, without diagnosis of hypertension (principal) | CPT/HCPCS: 99212 ==

== ENCOUNTER → 2021-08-09 16:03 | Outpatient (BNVA) | payer OTHER, SELFPAY | PROVIDERS: PCP Internal Medicine; Referring Provider Internal Medicine; Visit Provider Nurse Practitioner | DX: K21.9 Gastro-esophageal reflux disease without esophagitis (principal); K59.04 Chronic idiopathic constipation; Z83.71 Family history of colonic polyps | CPT/HCPCS: 99212 ==

== ENCOUNTER 2021-08-13 13:10 | Outpatient (REF) | payer OTHER, SELFPAY ==
--- NOTE | ~2021-08-13 | MM_ITS ---
EXAMINATION: BONE DENSITOMETRY CLINICAL INDICATION: Age-related osteoporosis without current pathological fracture. COMPARISON: Baseline BD dated 05/02/2019. TECHNIQUE: Using a [employer] DXA System (software version: 13.1) manufactured by [employer], dual-energy x-ray absorptiometry was performed of the lumbar spine and left hip. The images are of good technical quality. Summary results are attached. FINDINGS: AP SPINE L1-L4: Current: BMD 1.074 g/cm2, Z-score 0.5, T-score -0.9, normal, 3.9% decrease from baseline (<5% change is not significant). Baseline: BMD 1.118 g/cm2. LEFT FEMUR, NECK: Current: BMD 0.913 g/cm2, Z-score 0.5, T-score -0.9, normal. Baseline: BMD 0.958 g/cm2. LEFT FEMUR, TOTAL: Current: BMD 0.983 g/cm2, Z-score 0.9, T-score -0.2, normal, 3.3% decrease from baseline (<5% change is not significant). Baseline: BMD 1.017 g/cm2. IDENTIFIED RISK FACTORS: Rheumatoid arthritis, recurrent falls, history of fracture (adult), menopause, hysterectomy, bilateral oophorectomy. HISTORY OF FRACTURE: Humerus. MEDICATIONS: Calcium supplements or multivitamin, vitamin D, bisphosphonate. MM/XR DEXA axial skeleton IMPRESSION: 1. DIAGNOSIS: Normal bone density based on the lowest T-score value of -0.9 in the femoral neck and lumbar spine applying World Health Organization criteria. 2. 10-YEAR FRACTURE RISK PREDICTION, FRAX: According to the guidelines, FRAX calculation should only be performed on patients in the osteopenia bone density category. Therefore, FRAX was not performed on this patient. 3. Treatment Recommendations: NOF guidelines recommend consideration for treatment in postmenopausal women and men age 50 and older presenting with the following: -A hip or vertebral (clinical or morphometric) fracture. -T-score less than or equal to -2.5 at the femoral neck or spine after appropriate evaluation to exclude secondary causes. -Low bone mass at the hip or spine and a 10-year fracture probability by FRAX of greater than or equal to 3% for hip fracture or greater than or equal to 20% for major osteoporotic fracture based on the [place] adapted WHO algorithm. 4. Other Recommendations: All treatment decisions require clinical judgment and consideration of individual patient factors, including patient preferences, comorbidities, previous drug use, risk factors not captured in the FRAX model (e.g. frailty, falls, vitamin D deficiency, increased bone turnover, interval significant decline in bone density) and possible under or overestimation of fracture risk by FRAX. FUTURE SCAN RECOMMENDATION: People with diagnosed cases of osteoporosis or at high risk for fracture should have regular bone mineral density tests. For patients eligible for Medicare, routine testing is allowed once every 2 years. The testing frequency can be increased to one year for patients who have rapidly progressing disease, those who are receiving or discontinuing medical therapy to restore bone mass, or have additional risk factors.
== END 2021-08-13 13:11 | disposition home or self-care (01) ==
LOC: HO.MAMMO 13:10
PROVIDERS: PCP Internal Medicine; Visit Provider Internal Medicine
DX: Z13.820 Encounter for screening for osteoporosis (principal); M81.0 Age-related osteoporosis without current pathological fracture; Z78.0 Asymptomatic menopausal state
CPT/HCPCS: 77080

== ENCOUNTER 2021-08-16 12:16 | Outpatient (REF) | payer OTHER, SELFPAY ==
[2021-08-16 12:53] LABS: MANUAL DIFF FLAG NO
[2021-08-16 13:25] LABS: Basophils Percent Auto 0.3 % (0-2); Eosinophils Percent Auto 0.3 % (0-4); Hematocrit 38.3 % (37.0-47.0); Hemoglobin 12.1 g/dl (12.0-16.0); Imm Gran Abs Auto 0.01 X10*3/uL (0.00-0.03); Imm Gran Pct Auto 0.3 % (0.0-0.4); Lymphocytes Absolute Auto 0.7 X10*3/uL (1.2-4.9); Mean Corpuscular HGB Conc 31.6 g/dl (31.0-35.0); Mean Corpuscular Hemoglobin 28.1 pg (27.0-33.0); Mean Corpuscular Volume 89.1 fL (80.0-98.0); Mean Platelet Volume 10.1 fL (9.4-12.3); Monocytes Absolute Auto 0.4 X10*3/uL (0.1-1.2); Monocytes Percent Auto 9.9 % (2-11); Neutrophils Absolute Auto 2.6 x10*3/uL (2.0-8.3); Neutrophils Percent Auto 70.2 % (45-73); Platelet Count 191 X10*3/uL (160-400); Red Cell Distribution Width 12.3 % (11.0-16.0); White Blood Count 3.6 X10*3/uL (4.8-10.8)
[2021-08-16 13:46] LABS: Albumin Level 4.2 g/dL (3.5-5.0); Calcium 9.7 mg/dL (8.4-10.2)
[2021-08-16 13:52] LABS: Alanine Aminotransferase 27 U/L (0-31); Albumin Level 4.2 g/dL (3.5-5.0); Alkaline Phosphatase 52 U/L (39-117); Anion Gap 14 (12-20); Aspartate Amino Transferase 23 U/L (5-31); Bilirubin Total 0.3 mg/dL (0.0-1.0); Blood Urea Nitrogen 23 mg/dL (9-16); Calcium 9.5 mg/dL (8.4-10.2); Carbon Dioxide 28 mmol/L (22-29); Chloride 102 mmol/L (96-108); Estimated Glomerular Filt Rate > 60; Glucose Random 87 mg/dL (60-115); Potassium 4.9 mmol/L (3.3-5.1); Sodium 139 mmol/L (135-145); Total Protein 6.9 g/dL (6.5-8.0)
[2021-08-16 14:14] LABS: Vitamin D 25-OH Total 51.6 ng/mL (>30)
[2021-08-20 12:02] LABS: CA 27.29 24 U/mL (<38)
[2021-08-22 15:07] LABS: N-Telopeptide 63 (see note); NTXCreaRU 185 mg/dL (20-275)
== END 2021-08-16 12:17 | disposition home or self-care (01) ==
LOC: HO.LAB 12:16
PROVIDERS: Internal Medicine Endocrinology, Diabetes & Metabolism; PCP Internal Medicine; Visit Provider Internal Medicine Medical Oncology
DX: D72.819 Decreased white blood cell count, unspecified (principal); M81.0 Age-related osteoporosis without current pathological fracture; C50.911 Malignant neoplasm of unspecified site of right female breast
CPT/HCPCS: 36415; 80053; 82040; 82306; 82310; 82523; 85025; 86300

== ENCOUNTER → 2021-11-05 15:48 | Outpatient (BNVA) | payer OTHER, SELFPAY | PROVIDERS: PCP Internal Medicine; Visit Provider Internal Medicine Endocrinology, Diabetes & Metabolism | DX: M81.0 Age-related osteoporosis without current pathological fracture (principal); E03.9 Hypothyroidism, unspecified; Z79.899 Other long term (current) drug therapy | CPT/HCPCS: 99212 ==

== ENCOUNTER 2021-12-16 10:06 | Outpatient (REF) | payer OTHER, SELFPAY ==
[2021-12-16 10:54] LABS: MANUAL DIFF FLAG NO
[2021-12-16 11:07] LABS: Basophils Percent Auto 0.3 % (0-2); Eosinophils Percent Auto 0.5 % (0-4); Hematocrit 37.5 % (37.0-47.0); Imm Gran Abs Auto 0.01 X10*3/uL (0.00-0.03); Imm Gran Pct Auto 0.3 % (0.0-0.4); Lymphocytes Absolute Auto 0.6 X10*3/uL (1.2-4.9); Lymphocytes Percent Auto 15.9 % (20-40); Mean Corpuscular Hemoglobin 28.4 pg (27.0-33.0); Mean Corpuscular Volume 88.7 fL (80.0-98.0); Mean Platelet Volume 9.8 fL (9.4-12.3); Monocytes Absolute Auto 0.3 X10*3/uL (0.1-1.2); Monocytes Percent Auto 8.6 % (2-11); Neutrophils Absolute Auto 2.8 x10*3/uL (2.0-8.3); Neutrophils Percent Auto 74.4 % (45-73); Platelet Count 226 X10*3/uL (160-400); Red Blood Count 4.23 X10*6/uL (4.20-5.50); Red Cell Distribution Width 12.7 % (11.0-16.0); White Blood Count 3.7 X10*3/uL (4.8-10.8)
[2021-12-16 11:46] LABS: Erythrocyte Sedimentation Rate 13 MM/HR (0-20)
[2021-12-16 11:57] LABS: Alanine Aminotransferase 40 U/L (0-31); Albumin Level 4.5 g/dL (3.5-5.0); Alkaline Phosphatase 62 U/L (39-117); Anion Gap 16 (12-20); Aspartate Amino Transferase 30 U/L (5-31); Bilirubin Total 0.2 mg/dL (0.0-1.0); Blood Urea Nitrogen 17 mg/dL (9-16); C Reactive Protein 0.07 mg/dL (< or = 0.50); Carbon Dioxide 26 mmol/L (22-29); Chloride 105 mmol/L (96-108); Estimated Glomerular Filt Rate > 60; Glucose Random 82 mg/dL (60-115); Phosphorus 4.1 mg/dL (2.7-4.5); Potassium 4.4 mmol/L (3.3-5.1); Sodium 143 mmol/L (135-145); Total Protein 7.6 g/dL (6.5-8.0)
[2021-12-16 15:39] LABS: Creatinine Urine 251.77 mg/dL; Microalbum/Creatinine Ratio Ur 10.7 ug/mg cr
[2021-12-20 21:03] LABS: Anti DNA DS Antibody 1 IU/mL; SM/Ribonucleoprotein Ab >8.0 POS AI (<1.0 NEG); Smith Protein <1.0 NEG AI (<1.0 NEG)
[2021-12-22 00:31] LABS: Prot Elec - Albumin 4.4 g/dL (3.8-4.8); Prot Elec - Alpha1 0.3 g/dL (0.2-0.3); Prot Elec - Alpha2 0.8 g/dL (0.5-0.9); Prot Elec - Beta 1 0.6 g/dL (0.4-0.6); Prot Elec - Beta 2 0.3 g/dL (0.2-0.5); Prot Elec - Total Protein 7.4 g/dL (6.1-8.1)
[2021-12-24 17:16] LABS: Histamine Plasma <1.5 ng/mL (< OR = 1.8)
== END 2021-12-16 10:07 | disposition home or self-care (01) ==
LOC: HO.LAB 10:06
PROVIDERS: Absent Provider Internal Medicine Endocrinology, Diabetes & Metabolism; PCP Internal Medicine; Visit Provider Nurse Practitioner Family
DX: M81.0 Age-related osteoporosis without current pathological fracture (principal); M25.551 Pain in right hip; M25.552 Pain in left hip; M05.9 Rheumatoid arthritis with rheumatoid factor, unspecified; I73.00 Raynaud's syndrome without gangrene; Z79.899 Other long term (current) drug therapy
CPT/HCPCS: 36415; 80053; 82043; 83088; 83520; 84100; 84165; 85025; 85652; 86140; 86225; 86235; 86335; 99212

== ENCOUNTER 2021-12-18 10:27 | Outpatient (REF) | payer OTHER, SELFPAY ==
--- NOTE | ~2021-12-18 | XR_ITS ---
EXAMINATION: XR HIP-BILATERAL CLINICAL INFORMATION: Bilateral hip pain. COMPARISON: None TECHNIQUE: Frontal, frog-leg lateral views of each hip were obtained. FINDINGS: Right hip: The bony alignments are intact. Cortices are intact. Articular margins, joint space appear unremarkable. Mild diffuse osteopenia is noted. Phleboliths are present, otherwise soft tissues are unremarkable. Left hip: The bony alignments are intact. The cortices are intact. Mild diffuse osteopenia. Soft tissues are unremarkable. XR/XR hip LT min 2V IMPRESSION: 1. Mild diffuse osteopenia. 2. Otherwise radiographically unremarkable appearance of both hips.
--- NOTE | ~2021-12-18 | XR_ITS ---
EXAMINATION: XR HIP-BILATERAL CLINICAL INFORMATION: Bilateral hip pain. COMPARISON: None TECHNIQUE: Frontal, frog-leg lateral views of each hip were obtained. FINDINGS: Right hip: The bony alignments are intact. Cortices are intact. Articular margins, joint space appear unremarkable. Mild diffuse osteopenia is noted. Phleboliths are present, otherwise soft tissues are unremarkable. Left hip: The bony alignments are intact. The cortices are intact. Mild diffuse osteopenia. Soft tissues are unremarkable. XR/XR hip RT min 2V IMPRESSION: 1. Mild diffuse osteopenia. 2. Otherwise radiographically unremarkable appearance of both hips.
[2021-12-18 11:06] LABS: Total Volume 24 Hour Urine 700 mL
[2021-12-18 11:26] LABS: Creatinine, 24Hr Urine 0.8 G/Day (1.0-2.0); Creatinine, mg/dL 109.27
[2021-12-27 08:23] LABS: Cortisol Free, 24 Hr Urine 6.8 mcg/24 h (4.0-50.0); Creatinine, 24 Hr Urine 0.77 g/24 h (0.50-2.15); Total Volume, 24 Hr Urine 700 mL
== END 2021-12-18 10:28 | disposition home or self-care (01) ==
LOC: HO.XRAY 10:27
PROVIDERS: Internal Medicine Endocrinology, Diabetes & Metabolism; PCP Internal Medicine; Visit Provider Nurse Practitioner Family
DX: M25.551 Pain in right hip (principal); M25.552 Pain in left hip; M81.0 Age-related osteoporosis without current pathological fracture
CPT/HCPCS: 73502; 82530; 82570

== ENCOUNTER 2022-02-04 13:56 | Outpatient (REF) | payer OTHER, SELFPAY ==
--- NOTE | ~2022-02-04 | XR_ITS ---
EXAMINATION: 1. RADIOGRAPHS LUMBAR SPINE 2. RADIOGRAPHS RIGHT KNEE 3. RADIOGRAPHS LEFT KNEE CLINICAL INFORMATION: Osteoporosis. Diffuse pain. COMPARISON: Lumbar spine x-rays 11/30/2020 and radiographs of the bilateral knees 12/10/2019 TECHNIQUE: 5 views of the lumbar spine and 4 views of each knee were obtained. FINDINGS: Lumbar spine: 5 nonrib-bearing lumbar vertebral bodies are visualized. There is mild dextroscoliosis of the lumbar spine which may be positional in nature. Lumbar vertebral body heights are maintained. There is mild narrowing of the L5/S1 disc space height. Surgical clips in the right upper abdomen. Right knee: No fracture or dislocation. No suprapatellar joint effusion. Mild narrowing of the medial joint space height. Tiny tricompartmental marginal osteophytes. No focal soft tissue swelling the anterior knee. Left knee: No fracture or dislocation of the left knee. No suprapatellar joint effusion. Mild narrowing of the medial joint space height. Tiny tricompartmental marginal osteophytes. No focal soft tissue swelling of the anterior knee. XR/XR knee LT 4V IMPRESSION: -Mild degenerative changes of the lower lumbar spine without compression deformity. -Mild degenerative changes of the bilateral knees, particularly involving the medial compartments.
--- NOTE | ~2022-02-04 | XR_ITS ---
EXAMINATION: 1. RADIOGRAPHS LUMBAR SPINE 2. RADIOGRAPHS RIGHT KNEE 3. RADIOGRAPHS LEFT KNEE CLINICAL INFORMATION: Osteoporosis. Diffuse pain. COMPARISON: Lumbar spine x-rays 11/30/2020 and radiographs of the bilateral knees 12/10/2019 TECHNIQUE: 5 views of the lumbar spine and 4 views of each knee were obtained. FINDINGS: Lumbar spine: 5 nonrib-bearing lumbar vertebral bodies are visualized. There is mild dextroscoliosis of the lumbar spine which may be positional in nature. Lumbar vertebral body heights are maintained. There is mild narrowing of the L5/S1 disc space height. Surgical clips in the right upper abdomen. Right knee: No fracture or dislocation. No suprapatellar joint effusion. Mild narrowing of the medial joint space height. Tiny tricompartmental marginal osteophytes. No focal soft tissue swelling the anterior knee. Left knee: No fracture or dislocation of the left knee. No suprapatellar joint effusion. Mild narrowing of the medial joint space height. Tiny tricompartmental marginal osteophytes. No focal soft tissue swelling of the anterior knee. XR/XR lumbar spine 4V min IMPRESSION: -Mild degenerative changes of the lower lumbar spine without compression deformity. -Mild degenerative changes of the bilateral knees, particularly involving the medial compartments.
--- NOTE | ~2022-02-04 | XR_ITS ---
EXAMINATION: 1. RADIOGRAPHS LUMBAR SPINE 2. RADIOGRAPHS RIGHT KNEE 3. RADIOGRAPHS LEFT KNEE CLINICAL INFORMATION: Osteoporosis. Diffuse pain. COMPARISON: Lumbar spine x-rays 11/30/2020 and radiographs of the bilateral knees 12/10/2019 TECHNIQUE: 5 views of the lumbar spine and 4 views of each knee were obtained. FINDINGS: Lumbar spine: 5 nonrib-bearing lumbar vertebral bodies are visualized. There is mild dextroscoliosis of the lumbar spine which may be positional in nature. Lumbar vertebral body heights are maintained. There is mild narrowing of the L5/S1 disc space height. Surgical clips in the right upper abdomen. Right knee: No fracture or dislocation. No suprapatellar joint effusion. Mild narrowing of the medial joint space height. Tiny tricompartmental marginal osteophytes. No focal soft tissue swelling the anterior knee. Left knee: No fracture or dislocation of the left knee. No suprapatellar joint effusion. Mild narrowing of the medial joint space height. Tiny tricompartmental marginal osteophytes. No focal soft tissue swelling of the anterior knee. XR/XR knee RT 4V IMPRESSION: -Mild degenerative changes of the lower lumbar spine without compression deformity. -Mild degenerative changes of the bilateral knees, particularly involving the medial compartments.
== END 2022-02-04 13:57 | disposition home or self-care (01) ==
LOC: HO.XRAY 13:56
PROVIDERS: Absent Provider Internal Medicine Endocrinology, Diabetes & Metabolism; PCP Internal Medicine; Visit Provider Internal Medicine
DX: M81.0 Age-related osteoporosis without current pathological fracture (principal); E03.9 Hypothyroidism, unspecified; M25.561 Pain in right knee; M25.562 Pain in left knee; M32.9 Systemic lupus erythematosus, unspecified; M06.9 Rheumatoid arthritis, unspecified; M79.7 Fibromyalgia; E55.9 Vitamin D deficiency, unspecified; Z85.3 Personal history of malignant neoplasm of breast
CPT/HCPCS: 72110; 73564; 99212

== ENCOUNTER 2022-02-16 14:39 | Outpatient (REF) | payer OTHER, SELFPAY ==
[2022-02-17 09:46] LABS: BV Int Neg Control Negative (Negative); BV Int Pos Control Positive (Positive)
== END 2022-02-16 14:40 | disposition home or self-care (01) ==
LOC: HO.LNP 14:39
PROVIDERS: Visit Provider Advanced Practice Midwife
DX: N89.8 Other specified noninflammatory disorders of vagina (principal); Z78.0 Asymptomatic menopausal state
CPT/HCPCS: 87480; 87510; 87660; 99202

== ENCOUNTER 2022-02-22 16:45 | Outpatient (REF) | payer OTHER, SELFPAY ==
[2022-02-22 17:00] LABS: MANUAL DIFF FLAG NO
[2022-02-22 17:14] LABS: Basophils Percent Auto 0.5 % (0-2); Eosinophils Absolute Auto 0.1 X10*3/uL (0.0-0.4); Eosinophils Percent Auto 1.4 % (0-4); Hematocrit 36.5 % (37.0-47.0); Hemoglobin 11.5 g/dl (12.0-16.0); Imm Gran Abs Auto 0.01 X10*3/uL (0.00-0.03); Imm Gran Pct Auto 0.2 % (0.0-0.4); Lymphocytes Absolute Auto 0.8 X10*3/uL (1.2-4.9); Lymphocytes Percent Auto 17.6 % (20-40); Mean Corpuscular HGB Conc 31.5 g/dl (31.0-35.0); Mean Corpuscular Hemoglobin 27.5 pg (27.0-33.0); Mean Corpuscular Volume 87.3 fL (80.0-98.0); Mean Platelet Volume 9.6 fL (9.4-12.3); Monocytes Absolute Auto 0.3 X10*3/uL (0.1-1.2); Neutrophils Absolute Auto 3.1 x10*3/uL (2.0-8.3); Neutrophils Percent Auto 72.3 % (45-73); Platelet Count 179 X10*3/uL (160-400); Red Blood Count 4.18 X10*6/uL (4.20-5.50); Red Cell Distribution Width 12.6 % (11.0-16.0); White Blood Count 4.3 X10*3/uL (4.8-10.8)
[2022-02-22 17:55] LABS: Alanine Aminotransferase 17 U/L (0-31); Albumin Level 4.5 g/dL (3.5-5.0); Alkaline Phosphatase 53 U/L (39-117); Anion Gap 18 (12-20); Aspartate Amino Transferase 26 U/L (5-31); Bilirubin Total 0.5 mg/dL (0.0-1.0); Blood Urea Nitrogen 26 mg/dL (9-16); Calcium 9.4 mg/dL (8.4-10.2); Carbon Dioxide 25 mmol/L (22-29); Chloride 103 mmol/L (96-108); Estimated Glomerular Filt Rate > 60; Glucose Random 70 mg/dL (60-115); Potassium 4.5 mmol/L (3.3-5.1); Sodium 141 mmol/L (135-145); Total Protein 7.5 g/dL (6.5-8.0)
[2022-02-22 18:02] LABS: Appearance Urine Cloudy; Color Urine Dark Yellow; Glucose Urine UA Negative (Negative); Leukocyte Esterase Urine Moderate (2+) (Negative); Nitrite Urine Positive (Negative); PH 5.5 (5.0-9.0); Specific Gravity - Urine >= 1.030 (1.005-1.025); UMIC TRIGGER UACC YES; Urine Blood Small (1+) (Negative); Urine Ketones 80 mg/dL (Negative); Urine Protein 30 (1+) mg/dL (Neg-Trace)
[2022-02-22 18:11] LABS: Erythrocyte Sedimentation Rate 12 MM/HR (0-20)
[2022-02-22 18:21] LABS: Bacteria Urine 4+ (None Seen); Hyaline Casts Urine 0-2 /LPF (0-2); RBC Urine 0-2 /HPF (0-2); Squamous Epithelial Cell Urine 0-2 /HPF (0-2); UACC Culture Trigger YES; WBC Urine >50 /HPF (0-5)
== END 2022-02-22 16:46 | disposition home or self-care (01) ==
LOC: HO.LAB 16:45
PROVIDERS: PCP Internal Medicine; Visit Provider Internal Medicine Medical Oncology
DX: D72.819 Decreased white blood cell count, unspecified (principal); R39.9 Unspecified symptoms and signs involving the genitourinary system
CPT/HCPCS: 36415; 80053; 81001; 85025; 85652; 87086; 87088; 87186

== ENCOUNTER → 2022-02-23 15:16 | Outpatient (BNVA) | payer OTHER, SELFPAY | PROVIDERS: PCP Internal Medicine; Visit Provider Nurse Practitioner | DX: K21.9 Gastro-esophageal reflux disease without esophagitis (principal); K59.04 Chronic idiopathic constipation; K59.9 Functional intestinal disorder, unspecified; Z79.899 Other long term (current) drug therapy | CPT/HCPCS: 99212 ==

== ENCOUNTER 2022-03-26 09:47 | Emergency (ER) | payer OTHER, SELFPAY ==
--- NOTE | ~2022-03-26 | CT_ITS ---
EXAMINATION: CT ABDOMEN AND PELVIS WITHOUT CONTRAST CLINICAL INFORMATION: Suprapubic and right flank pain COMPARISON: CT abdomen 10/30/2018 TECHNIQUE: Multidetector volumetric imaging was performed from the superior aspect of the liver through the pubic symphysis. Sagittal and coronal reformatted images were obtained on the technologist's workstation. This CT examination was performed using dose optimization techniques as appropriate, variously including the following: *Automated exposure control *Adjustment of mA and/or kV according to patient size (this includes techniques or standardized protocols for targeted exams where dose is matched to indication/reason for exam; i.e. extremities or head) *Use of iterative reconstruction technique DLP: 353 mGy-cm FINDINGS: LUNG BASES: Bibasilar atelectasis. No pericardial or pleural effusion. Partially imaged breast implants. LIVER, GALLBLADDER, AND BILIARY TREE: No focal liver lesions. The liver attenuation is within normal limits. There is a small air within the intrahepatic biliary tree, which could be related to postsurgical changes/cholecystectomy. Status postcholecystectomy. CBD proximally measures 8 mm, distally tapering, probably related to prior cholecystectomy. No radiodense calculi identified within the CBD. PANCREAS: Unremarkable. No inflammatory changes seen. SPLEEN: Unremarkable. ADRENAL GLANDS: Unremarkable. KIDNEYS AND URETERS: No renal calculi seen. No evidence of hydroureter or hydronephrosis. Portions of bilateral ureters are difficult to follow. No definite radiodense calculi in the ureter/expected course of the ureter is identified. Small hypodense left renal lesion, too small to characterize. No suspicious renal lesion seen.. No significant perinephric stranding. BLADDER: Partially distended. No significant abnormality identified. No radiodense calculi within the bladder. GASTROINTESTINAL TRACT: Stomach is nondistended limiting evaluation. Apparent wall thickening of the stomach, could be related to degree of distention. No dilated small bowel loops seen. There is moderate to large stool throughout the large colon. No focal colonic wall thickening seen. The appendix is difficult to visualize. Tubular structure containing air, suspected to be the appendix appears unremarkable. No inflammatory changes are seen in the expected region of the appendix. No free fluid. No free air. ABDOMINAL WALL: No significant hernia is appreciated. LYMPH NODES: No adenopathy is identified in the abdomen or pelvis. VASCULAR: Normal caliber aorta. Scattered atherosclerotic vascular calcification. PELVIC VISCERA: Uterus is absent. No adnexal masses seen. OSSEOUS STRUCTURES: No acute or suspicious osseous abnormality. CT/CT abdomen pelvis wo IV con IMPRESSION: 1. No definite radiodense renal or ureteral calculi seen. No evidence of significant hydronephrosis. 2. Status postcholecystectomy. There is small volume air within the intrahepatic biliary tree, which could be related to postsurgical changes/cholecystectomy. 3. Moderate to large volume stool in the large colon. 4. Apparent wall thickening of the stomach related to lack of distention. Clinically correlate, further evaluation with upper GI as clinically warranted. 5. No acute findings otherwise identified in the abdomen or pelvis. Fleischner guidelines were followed.
[2022-03-26 10:06] VITALS: BP 116/55; PULSE 82; RESP 18; TEMP 36.9; O2SAT 98; BMI 24.7
--- NOTE | 2022-03-26 11:05 | ED_ITS ---
HPI - Female Genitourinary General Chief complaint: Urogenital-Female Stated complaint: uti Time Seen by Provider: 03/26/22 10:32 Source: patient and family (daughter) Mode of arrival: ambulatory Limitations: no limitations History of Present Illness HPI Narrative: 56-year-old female came in for evaluation of suprapubic pain with dysuria and frequent urination now pain is moving to the right flank area, patient had a recent UTI that was treated with Bactrim and ciprofloxacin patient grew E coli in the urine culture, 5 days ago patient went to an urgent care for similar symptoms patient was started on Macrobid with no improvement of her symptoms and worsening of the right flank area pain. No fever or chills. No nausea, no vomiting. Related Data Home Medications Medication Instructions Recorded Confirmed amitriptyline 50 mg tablet 50 mg PO BEDTIME 02/04/22 aripiprazole 5 mg tablet 1.5 tab PO QAM 03/26/22 bupropion HCl 150 mg 24 hr tablet, 150 mg PO USEASDIRECTD 03/26/22 extended release fluconazole 150 mg tablet mg PO 03/26/22 fluvoxamine 50 mg tablet 1 tab DAILY 03/26/22 ketoconazole 2 % shampoo topical Q OTHER DAY 03/26/22 lidocaine 5 % topical patch 1 patch topical DAILY 03/26/22 nitrofurantoin 1 cap PO BID 03/26/22 monohydrate/macrocrystals 100 mg capsule Previous Rx's Medication Instructions Recorded ondansetron 4 mg disintegrating 4 mg PO Q8H PRN nausea and 07/01/21 tablet vomiting 30 days #90 tabs Synthroid 50 mcg tablet 50 mcg PO DAILY 90 days #90 tabs 07/09/21 (levothyroxine) bisacodyl 5 mg tablet,delayed 10 mg PO DAILY constipation #60 08/09/21 release tabs calcium citrate 500 mg PO BID #120 tabs 10/18/21 chlorhexidine gluconate 0.12 % 15 ml buccal BID #473 mL 01/10/22 mouthwash trazodone 50 mg tablet 50 mg PO BEDTIME PRN insomnia 30 02/28/22 days #30 tabs famotidine 40 mg tablet 40 mg PO BEDTIME #30 tabs 03/18/22 Denta 5000 Plus 1.1 % cream 1 appl dental DAILY #51 grams 03/20/22 (fluoride (sodium)) Magic Mouthwash 10 ml PO Q8H #240 mL 03/20/22 Diphen/Lido/Antacid 1:1:1 240 mL suspension clonazepam 1 mg tablet 1 mg PO BID PRN anxiety 30 days 03/21/22 #60 tabs oxyquinoline 0.025 %-sodium lauryl 1 ea vaginal .QD #113.4 grams 03/21/22 sulfate 0.01 % vaginal gel (Trimo-Dueñas Jelly) Allergies Allergy/AdvReac Type Severity Reaction Status Date / Time codeine [CODEINE] Allergy Intermediate ITCHING Verified 02/23/22 15:23 hydroxychloroquine Allergy Intermediate VOMITING Verified 02/23/22 15:23 [From PLAQUENIL] morphine [MORPHINE] Allergy Intermediate ITCHING Verified 02/23/22 15:23 oxycodone [From PERCOCET] Allergy Intermediate ITCHING Verified 02/23/22 15:23 tramadol [From ULTRAM] Allergy Intermediate ITCHING Verified 02/23/22 15:23 Cortisone Allergy Unknown Unknown Verified 02/23/22 15:23 levothyroxine sodium Allergy Unknown rash,throat Verified 02/23/22 15:23 closes prednisone Allergy Unknown unknown Verified 02/23/22 15:23 Corticosteroids AdvReac Severe DIFFICULTY Verified 02/23/22 15:23 (Glucocorticoids) BREATHING [CORTICOSTEROIDS (GLUCOCORTICOIDS)] acetaminophen [Percocet] AdvReac Unknown Unknown Verified 02/23/22 15:23 duloxetine AdvReac Unknown Unknown Verified 02/23/22 15:23 Review of Systems Review of Systems: All other systems are reviewed and are negative Constitutional: Reports as per HPI and Reports no additional constitutional complaints Eyes: Reports as per HPI and Reports no additional eye complaints Reports system reviewed and no additional complaints, except as documented Cardiovascular: Reports as per HPI and Reports no additional cardiovascular complaints Respiratory: Reports as per HPI and Reports no additional respiratory complaints Gastrointestinal: Reports as per HPI and Reports no additional gastrointestinal complaints Genitourinary: Reports no additional female genitourinary complaints Musculoskeletal: Reports no additional musculoskeletal complaints Skin/Breast: Reports system reviewed and no additional complaints, except as docu Psychiatric: Reports no additional psychiatric complaints Endocrine: Reports no additional endocrine complaints Hematologic/Lymphatic: Reports no additional hematologic/lymphatic complaints Allergic/Immunologic: Reports no additional allergic/immunologic complaints Reports system reviewed and no additional complaints, except as documented and Reports Abnormal speech present [facility] Past Medical History Medical History Acquired hypothyroidism Anxiety Bipolar depression Constipation Fibromyalgia Gingivitis History of breast cancer Hypothyroidism Insomnia Left temporomandibular joint disorder, unspecified Leukopenia Lupus (systemic lupus erythematosus) Osteoporosis Polyarthralgia Primary insomnia Raynaud's disease without gangrene Rheumatoid arthritis Schatzki's ring 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 Systemic lupus erythematosus Vitamin D deficiency Surgical History History of bilateral mastectomy History of section History of cholecystectomy History of esophagogastroduodenoscopy (EGD) History of total abdominal hysterectomy and bilateral salpingo-oophorectomy History of tubal ligation Hx of colonoscopy Family History Family History Father Hypertension Prostate cancer Mother Breast cancer Hypertension Asthma Maternal Aunt Breast cancer Maternal Grandmother Colon cancer Maternal Aunt Breast cancer Social History Social History Household Members: Children Household Members Other:: 2 daughters Housing: Apartment Alcohol intake: never Patient Tobacco Use Status: Never used Tobacco e-Cigarette/Vaping Use: Never Used Second Hand Smoke Exposure: Yes Advance Directives: Yes Advance Directives on File: Yes Advance Directives Date on File: 08/12/20 service: No Current occupational status: disabled Cognitive needs: Yes (cane) Hearing needs: No Vision needs: Yes (Glasses) Physical Exam Vital Signs: Vital Signs: Last Vital Signs Temp 98.1 F 03/26/22 11:08 Pulse 68 03/26/22 11:08 Resp 16 03/26/22 11:08 BP 114/58 L 03/26/22 11:08 Pulse Ox 100 03/26/22 11:08 O2 Del Method 03/26/22 11:08 BMI result Body Mass Index 24.7 Vital signs have been reviewed as appeared to be correct. Blood pressure normal. Heart rate normal. Respiration rate normal. Temperature normal. Oxygen saturation normal. Appearance: Alert. Oriented X3. No acute distress. Head: Normal external exam. Normocephalic. Atraumatic. No Schmidt signs noted. No raccoon eyes noted Eyes: PERRLA. EOMI. Conjunctiva and sclera normal. Eyelids normal. ENT: TM's Normal. Pharynx normal. Uvula midline. Moist mucous membranes. No trismus noted. No drooling noted. No muffled voice noted. Neck: Normal inspection. Neck supple. FROM. No adenopathy. Thyroid Normal. No meningeal signs. No neck mass noted. CVS: Normal heart rate and rhythm. Heart sound normal. No murmurs noted. Pulses normal throughout. Respiratory: No respiratory distress. Painless inspiration. Breath sounds normal. No wheezes/rales/rhonchi noted. Chest nontender. No accessory muscle usage noted or decreased air movement noted. Abdomen: Soft, mild suprapubic tenderness, no rebound tenderness, no guarding.. Bowel sounds normal in all 4 quadrants. No distention noted. No organomegaly noted. No visible injury noted. Back: Right CVA tenderness. Full range of motion noted. Skin: Skin warm and dry. Normal skin color. Normal skin turgor. No rashes/lesions/lacerations noted. Extremities: No lower extremity edema. Extremities exhibit normal range of motion. Extremities nontender. Neuro: Oriented X 3. Cranial nerve exam: II-XII are grossly intact No motor deficit. No sensory deficit. Reflexes normal. Course Course Course Narrative: 56-year-old female came in for evaluation of dysuria and increased frequency urination patient recently received Macrobid for symptoms today's labs are unremarkable no UTI, CT of the abdomen pelvis showed no acute intra-abdominal pathology to explain patient's symptoms patient was reassured and was encouraged to drink plenty of fluids. Medications Administered Discontinued Medications Generic Name Dose Route Start Last Admin Trade Name Freq PRN Reason Stop Dose Admin Sodium Chloride 1,000 mls @ 999 mls/hr 03/26/22 11:01 03/26/22 13:30 Ns IV 03/26/22 12:01 999 mls/hr .Q1H1M ONE Administration MDM - Female Genitourinary Medical Records Attestation: I reviewed the patient's medical records. Lab Data Attestation: I reviewed the patient's lab results. Result diagrams: 03/26/22 11:24 03/26/22 11:24 Labs: Lab Results 03/26/22 03/26/22 03/26/22 Range/Units 11:24 11:24 11:24 WBC 3.5 L (4.8-10.8) X10*3/uL RBC 4.37 (4.20-5.50) X10*6/uL Hgb 12.2 (12.0-16.0) g/dl Hct 38.2 (37.0-47.0) % MCV 87.4 (80.0-98.0) fL MCH 27.9 (27.0-33.0) pg MCHC 31.9 (31.0-35.0) g/dl RDW 12.8 (11.0-16.0) % Plt Count 179 (160-400) X10*3/uL MPV 9.6 (9.4-12.3) fL Immature Gran % (Auto) 0.0 (0.0-0.4) % Neut % (Auto) 60.5 (45-73) % Lymph % (Auto) 27.0 (20-40) % [place] % (Auto) 11.0 (2-11) % Eos % (Auto) 0.9 (0-4) % Baso % (Auto) 0.6 (0-2) % Lymph # (Auto) 0.9 L (1.2-4.9) X10*3/uL [place] # (Auto) 0.4 (0.1-1.2) X10*3/uL Eos # (Auto) 0.0 (0.0-0.4) X10*3/uL Baso # (Auto) 0.0 (0.0-0.2) X10*3/uL Abs Immat Gran (auto) 0.00 (0.00-0.03) X10*3/uL Absolute Neuts (auto) 2.1 (2.0-8.3) x10*3/uL Absolute Nucleated RBC 0.000 (0.0-0.012) X10*3/uL Nucleated RBC % (auto) 0.0 (0.0-0.2) /100WBC Sodium 141 (135-145) mmol/L Potassium 4.2 (3.3-5.1) mmol/L Chloride 104 (96-108) mmol/L Carbon Dioxide 27 (22-29) mmol/L Anion Gap 14 (12-20) BUN 18 H (9-16) mg/dL Creatinine 0.64 (0.5-1.4) mg/dL Estim Creat Clear Calc 82.5 Estimated GFR > 60 Random Glucose 82 (60-115) mg/dL Calcium 9.5 (8.4-10.2) mg/dL Total Bilirubin 0.3 (0.0-1.0) mg/dL Direct Bilirubin 0.2 (0.0-0.5) mg/dL AST 22 (5-31) U/L ALT 18 (0-31) U/L Alkaline Phosphatase 57 (39-117) U/L Total Protein 7.2 (6.5-8.0) g/dL Albumin 4.4 (3.5-5.0) g/dL Lipase 199 H (8-78) U/L Urine Color Yellow Urine Appearance Clear Urine pH 6.5 (5.0-9.0) Ur Specific Ellinger 1.015 (1.005-1.025) Urine Protein Negative (Neg-Trace) mg/dL Urine Glucose (UA) Negative (Negative) mg/dL Urine Ketones Negative (Negative) mg/dL Urine Blood Negative (Negative) Urine Nitrite Negative (Negative) Ur Leukocyte Esterase Negative (Negative) Influenza Type A (PCR) (Negative) Influenza Type B (PCR) (Negative) RSV RNA Qual (PCR) (Negative) SARS-CoV-2 RNA (RT-PCR) (Negative) 03/26/22 Range/Units 12:10 WBC (4.8-10.8) X10*3/uL RBC (4.20-5.50) X10*6/uL Hgb (12.0-16.0) g/dl Hct (37.0-47.0) % MCV (80.0-98.0) fL MCH (27.0-33.0) pg MCHC (31.0-35.0) g/dl RDW (11.0-16.0) % Plt Count (160-400) X10*3/uL MPV (9.4-12.3) fL Immature Gran % (Auto) (0.0-0.4) % Neut % (Auto) (45-73) % Lymph % (Auto) (20-40) % [place] % (Auto) (2-11) % Eos % (Auto) (0-4) % Baso % (Auto) (0-2) % Lymph # (Auto) (1.2-4.9) X10*3/uL [place] # (Auto) (0.1-1.2) X10*3/uL Eos # (Auto) (0.0-0.4) X10*3/uL Baso # (Auto) (0.0-0.2) X10*3/uL Abs Immat Gran (auto) (0.00-0.03) X10*3/uL Absolute Neuts (auto) (2.0-8.3) x10*3/uL Absolute Nucleated RBC (0.0-0.012) X10*3/uL Nucleated RBC % (auto) (0.0-0.2) /100WBC Sodium (135-145) mmol/L Potassium (3.3-5.1) mmol/L Chloride (96-108) mmol/L Carbon Dioxide (22-29) mmol/L Anion Gap (12-20) BUN (9-16) mg/dL Creatinine (0.5-1.4) mg/dL Estim Creat Clear Calc Estimated GFR Random Glucose (60-115) mg/dL Calcium (8.4-10.2) mg/dL Total Bilirubin (0.0-1.0) mg/dL Direct Bilirubin (0.0-0.5) mg/dL AST (5-31) U/L ALT (0-31) U/L Alkaline Phosphatase (39-117) U/L Total Protein (6.5-8.0) g/dL Albumin (3.5-5.0) g/dL Lipase (8-78) U/L Urine Color Urine Appearance Urine pH (5.0-9.0) Ur Specific Ellinger (1.005-1.025) Urine Protein (Neg-Trace) mg/dL Urine Glucose (UA) (Negative) mg/dL Urine Ketones (Negative) mg/dL Urine Blood (Negative) Urine Nitrite (Negative) Ur Leukocyte Esterase (Negative) Influenza Type A (PCR) NEGATIVE (Negative) Influenza Type B (PCR) NEGATIVE (Negative) RSV RNA Qual (PCR) NEGATIVE (Negative) SARS-CoV-2 RNA (RT-PCR) NEGATIVE (Negative) Imaging Data Abdomen and pelvis CT: Attestation: I personally reviewed and interpreted this imaging study as follows: Radiologist's impression: 1. No definite radiodense renal or ureteral calculi seen. No evidence of significant hydronephrosis. ? 2. Status postcholecystectomy. There is small volume air within the intrahepatic biliary tree, which could be related to postsurgical changes/cholecystectomy. ? 3. Moderate to large volume stool in the large colon. ? 4. Apparent wall thickening of the stomach related to lack of distention. Clinically correlate, further evaluation with upper GI as clinically warranted. ? 5. No acute findings otherwise identified in the abdomen or pelvis. ? Discharge Plan Discharge Clinical Impression: Dysuria Patient Disposition: Home, Self-Care Instructions: Dysuria (ED) Prescriptions: No Action calcium citrate 250 mg calcium tablet 500 mg PO BID Qty: 120 5RF trazodone 50 mg tablet 50 mg PO BEDTIME PRN (Reason: insomnia) 30 Days Qty: 30 1RF famotidine 40 mg tablet 40 mg PO BEDTIME Qty: 30 0RF fluoride (sodium) [Denta 5000 Plus] 1.1 % cream 1 appl dental DAILY Qty: 51 3RF Magic Mouthwash Diphen/Lido/Antacid 1:1:1 240 mL suspension 10 ml PO Q8H Qty: 240 0RF Rx Instructions: Lidocaine Viscous 2 % 80mL; diphenhydramine 12.5 mg/5 mL 80mL; aluminum-mag h ydrox-simeth [id number]/5mL 80mL clonazepam 1 mg tablet 1 mg PO BID PRN (Reason: anxiety) 30 Days Qty: 60 0RF Trimo-Dueñas Jelly 0.025-0.01 % gel 1 ea vaginal .QD Qty: 113.4 5RF ketoconazole 2 % shampoo topical Q OTHER DAY fluconazole 150 mg tablet PO lidocaine 5 % adhesive patch,medicated 1 patch topical DAILY fluvoxamine 50 mg tablet 1 tab DAILY aripiprazole 5 mg tablet 1.5 tab PO QAM nitrofurantoin monohyd/m-cryst 100 mg capsule 1 cap PO BID bupropion HCl 150 mg tablet extended release 24 hr 150 mg PO USEASDIRECTD Rx Instructions: EVERY OTHER DAY ondansetron 4 mg tablet,disintegrating 4 mg PO Q8H PRN (Reason: nausea and vomiting) 30 Days Qty: 90 3RF chlorhexidine gluconate 0.12 % mouthwash 15 ml buccal BID Qty: 473 3RF levothyroxine [Synthroid] 50 mcg tablet 50 mcg PO DAILY 90 Days Qty: 90 4RF bisacodyl 5 mg tablet,delayed release (DR/EC) 10 mg PO DAILY Qty: 60 6RF amitriptyline 50 mg tablet 50 mg PO BEDTIME Referrals: Chuck Davila MD [Primary Care Provider] -
[2022-03-26 11:08] VITALS: BP 114/58; PULSE 68; RESP 16; TEMP 36.7; O2SAT 100
[2022-03-26 11:28] LABS: MANUAL DIFF FLAG NO
[2022-03-26 11:29] LABS: Basophils Percent Auto 0.6 % (0-2); Eosinophils Percent Auto 0.9 % (0-4); Hematocrit 38.2 % (37.0-47.0); Hemoglobin 12.2 g/dl (12.0-16.0); Lymphocytes Absolute Auto 0.9 X10*3/uL (1.2-4.9); Mean Corpuscular HGB Conc 31.9 g/dl (31.0-35.0); Mean Corpuscular Hemoglobin 27.9 pg (27.0-33.0); Mean Corpuscular Volume 87.4 fL (80.0-98.0); Mean Platelet Volume 9.6 fL (9.4-12.3); Monocytes Absolute Auto 0.4 X10*3/uL (0.1-1.2); Neutrophils Absolute Auto 2.1 x10*3/uL (2.0-8.3); Neutrophils Percent Auto 60.5 % (45-73); Platelet Count 179 X10*3/uL (160-400); Red Blood Count 4.37 X10*6/uL (4.20-5.50); Red Cell Distribution Width 12.8 % (11.0-16.0); White Blood Count 3.5 X10*3/uL (4.8-10.8)
[2022-03-26 11:34] LABS: Appearance Urine Clear; Color Urine Yellow; Glucose Urine UA Negative (Negative); Leukocyte Esterase Urine Negative (Negative); Nitrite Urine Negative (Negative); PH 6.5 (5.0-9.0); Specific Gravity - Urine 1.015 (1.005-1.025); Urine Blood Negative (Negative); Urine Ketones Negative (Negative); Urine Protein Negative (Neg-Trace)
[2022-03-26 11:50] LABS: Alanine Aminotransferase 18 U/L (0-31); Albumin Level 4.4 g/dL (3.5-5.0); Alkaline Phosphatase 57 U/L (39-117); Anion Gap 14 (12-20); Aspartate Amino Transferase 22 U/L (5-31); Bilirubin Direct 0.2 mg/dL (0.0-0.5); Bilirubin Total 0.3 mg/dL (0.0-1.0); Blood Urea Nitrogen 18 mg/dL (9-16); Calcium 9.5 mg/dL (8.4-10.2); Carbon Dioxide 27 mmol/L (22-29); Chloride 104 mmol/L (96-108); Creatinine Clr Calc Pharmacy 82.5; Estimated Glomerular Filt Rate > 60; Glucose Random 82 mg/dL (60-115); Lipase 199 U/L (8-78); Potassium 4.2 mmol/L (3.3-5.1); Sodium 141 mmol/L (135-145); Total Protein 7.2 g/dL (6.5-8.0)
[2022-03-26 12:54] LABS: Influenza A PCR NEGATIVE (Negative); Influenza B PCR NEGATIVE (Negative); Resp Syncy Virus RNA Qual PCR NEGATIVE (Negative); SARS COV2 PCR INHOUSE NEGATIVE (Negative)
[2022-03-26] MEDS: 0.9 % Sodium Chloride 1,000 ML 999 ML IV (13:30)
[2022-03-26 14:11] VITALS: BP 114/61; PULSE 74; RESP 16; O2SAT 99
--- NOTE | 2022-03-26 14:15 | PHA.MEDREC ---
Pharmacy Consult ? Medication Reconciliation Pharmacy has completed the medication reconciliation. Patient had a medication list that she and her daughter helped me review. She recently finished courses of ciprofloxacin and fluconazole with only 3 tablets remaining on courses of bactrim ds and nitrofurantoin.
== END 2022-03-26 14:46 | disposition home or self-care (01) ==
PROVIDERS: Emergency Provider Emergency Medicine; PCP Internal Medicine
DX: R30.0 Dysuria (principal); R10.9 Unspecified abdominal pain; Z20.822 Contact with and (suspected) exposure to COVID-19
CPT/HCPCS: 0241U; 36415; 74176; 80048; 80076; 81003; 83690; 85025; 99284

== ENCOUNTER 2022-04-11 12:43 | Emergency (ER) | payer OTHER, SELFPAY ==
--- NOTE | ~2022-04-11 | XR_ITS ---
EXAMINATION: XR CHEST CLINICAL INFORMATION: Cough. COMPARISON: None TECHNIQUE: 2 views of the chest were obtained. FINDINGS: The lungs are well-expanded and clear of acute process. Heart size and pulmonary vascularity is normal. There are surgical darrius in the right anterior axilla from previous intervention. No gross bony abnormality seen. XR/XR chest 2V IMPRESSION: Unremarkable chest exam.
--- NOTE | 2022-04-11 12:55 | ED.URI ---
HPI - URI/Sore Throat General Chief Complaint: General Medical Stated Complaint: covid symptoms, low blood sugar Related Data Home Medications Medication Instructions Recorded Confirmed aripiprazole 5 mg tablet 5 mg PO QAM 03/26/22 03/26/22 bupropion HCl 150 mg 24 hr tablet, 150 mg PO Q48H 03/26/22 03/26/22 extended release cholecalciferol (vitamin D3) 1,250 1,250 mcg PO QWEEK 03/26/22 03/26/22 mcg (50,000 unit) capsule dexlansoprazole 60 mg 60 mg PO DAILY 03/26/22 03/26/22 capsule,biphase delayed release diclofenac sodium 1 % topical gel 2 g topical DAILY PRN pain 03/26/22 03/26/22 diclofenac sodium 75 mg 75 mg PO BID 03/26/22 03/26/22 tablet,delayed release diphenhydramine HCl 25 mg capsule 25 mg PO TID PRN Itching 03/26/22 03/26/22 (Benadryl) glycerin (adult) 1 supp [place] BID PRN Constipation 03/26/22 03/26/22 ibuprofen 800 mg tablet 800 mg PO Q8H PRN pain 03/26/22 03/26/22 lidocaine 5 % topical patch 1 patch topical DAILY 03/26/22 03/26/22 meloxicam 15 mg tablet 15 mg PO DAILY PRN Pain 03/26/22 03/26/22 nitrofurantoin 100 mg PO Q12H 03/26/22 03/26/22 monohydrate/macrocrystals 100 mg capsule sulfamethoxazole 800 1 tab PO Q12H 03/26/22 03/26/22 mg-trimethoprim 160 mg tablet (Bactrim DS) Previous Rx's Medication Instructions Recorded ondansetron 4 mg disintegrating 4 mg PO Q8H PRN nausea and 07/01/21 tablet vomiting 30 days #90 tabs Synthroid 50 mcg tablet 50 mcg PO DAILY 90 days #90 tabs 07/09/21 (levothyroxine) bisacodyl 5 mg tablet,delayed 10 mg PO DAILY constipation #60 08/09/21 release tabs calcium citrate 500 mg PO BID #120 tabs 10/18/21 Magic Mouthwash 10 ml PO Q8H #240 mL 03/20/22 Diphen/Lido/Antacid 1:1:1 240 mL suspension clonazepam 1 mg tablet 1 mg PO BID PRN anxiety 30 days 03/21/22 #60 tabs trazodone 50 mg tablet 50 mg PO BEDTIME PRN insomnia 30 03/27/22 days #30 tabs Allergies Allergy/AdvReac Type Severity Reaction Status Date / Time codeine [CODEINE] Allergy Intermediate ITCHING Verified 04/11/22 12:52 hydroxychloroquine Allergy Intermediate VOMITING Verified 04/11/22 12:52 [From PLAQUENIL] morphine [MORPHINE] Allergy Intermediate ITCHING Verified 04/11/22 12:52 oxycodone [From PERCOCET] Allergy Intermediate ITCHING Verified 04/11/22 12:52 tramadol [From ULTRAM] Allergy Intermediate ITCHING Verified 04/11/22 12:52 Cortisone Allergy Unknown Unknown Verified 04/11/22 12:52 levothyroxine sodium Allergy Unknown rash,throat Verified 04/11/22 12:52 closes prednisone Allergy Unknown unknown Verified 04/11/22 12:52 Corticosteroids AdvReac Severe DIFFICULTY Verified 04/11/22 12:52 (Glucocorticoids) BREATHING [CORTICOSTEROIDS (GLUCOCORTICOIDS)] acetaminophen [Percocet] AdvReac Unknown Unknown Verified 04/11/22 12:52 duloxetine AdvReac Unknown Unknown Verified 04/11/22 12:52 [facility] Past Medical History Medical History Acquired hypothyroidism Anxiety Bipolar depression Constipation Fibromyalgia Gingivitis History of breast cancer Hypothyroidism Insomnia Left temporomandibular joint disorder, unspecified Leukopenia Lupus (systemic lupus erythematosus) Osteoporosis Polyarthralgia Primary insomnia Raynaud's disease without gangrene Rheumatoid arthritis Schatzki's ring 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 Systemic lupus erythematosus Vitamin D deficiency Surgical History History of bilateral mastectomy History of section History of cholecystectomy History of esophagogastroduodenoscopy (EGD) History of total abdominal hysterectomy and bilateral salpingo-oophorectomy History of tubal ligation Hx of colonoscopy Family History Family History Father Hypertension Prostate cancer Mother Breast cancer Hypertension Asthma Maternal Aunt Breast cancer Maternal Grandmother Colon cancer Maternal Aunt Breast cancer Social History Social History Household Members: Children Household Members Other:: 2 daughters Housing: Apartment Alcohol intake: never Patient Tobacco Use Status: Never used Tobacco e-Cigarette/Vaping Use: Never Used Second Hand Smoke Exposure: Yes Advance Directives: Yes Advance Directives on File: Yes Advance Directives Date on File: 08/12/20 service: No Current occupational status: disabled Cognitive needs: Yes (cane) Hearing needs: No Vision needs: Yes (Glasses) Physical Exam Vital Signs: Vital Signs: Last Vital Signs Temp 98.2 F 04/11/22 12:57 Pulse 93 04/11/22 12:57 Resp 18 04/11/22 12:57 BP 110/69 04/11/22 12:57 Pulse Ox 97 04/11/22 12:57 O2 Del Method 04/11/22 12:57 BMI result Body Mass Index 20.3 Course Course Course Narrative: This is a rapid medical exam. Deferred additional HPI, ROS, PE to primary provider. 56 yo female with history hypothyroidism, lupus, anxiety, bipolar disorder, GERD, fibromyalgia here with complaints of headache, diarrhea, loss of taste and smell, cough, feeling like blood sugars are low (no history of DM but using a family members glucometer-lowest blood sugar 60). Diagnosed with COVID 04/05 but reports continued symptoms. VSS. Will check labs, CXR, UA, viral testing. Discharge Plan Discharge Clinical Impression: Weakness Patient Disposition: Elopement Prescriptions: No Action calcium citrate 250 mg calcium tablet 500 mg PO BID Qty: 120 5RF Magic Mouthwash Diphen/Lido/Antacid 1:1:1 240 mL suspension 10 ml PO Q8H Qty: 240 0RF Rx Instructions: Lidocaine Viscous 2 % 80mL; diphenhydramine 12.5 mg/5 mL 80mL; aluminum-mag hydrox-simeth [id number]/5mL 80mL clonazepam 1 mg tablet 1 mg PO BID PRN (Reason: anxiety) 30 Days Qty: 60 0RF trazodone 50 mg tablet 50 mg PO BEDTIME PRN (Reason: insomnia) 30 Days Qty: 30 1RF lidocaine 5 % adhesive patch,medicated 1 patch topical DAILY aripiprazole 5 mg tablet 5 mg PO QAM bupropion HCl 150 mg tablet extended release 24 hr 150 mg PO Q48H Rx Instructions: EVERY OTHER DAY glycerin (adult) Suppository 1 supp [place] BID PRN (Reason: Constipation) cholecalciferol (vitamin D3) 1,250 mcg (50,000 unit) capsule 1,250 mcg PO QWEEK diclofenac sodium 1 % gel 2 g topical DAILY PRN (Reason: pain) ibuprofen 800 mg tablet 800 mg PO Q8H PRN (Reason: pain) meloxicam 15 mg tablet 15 mg PO DAILY PRN (Reason: Pain) diclofenac sodium 75 mg tablet,delayed release (DR/EC) 75 mg PO BID dexlansoprazole 60 mg capsule,biphase delayed releas 60 mg PO DAILY sulfamethoxazole-trimethoprim [Bactrim DS] 800-160 mg Tablet 1 tab PO Q12H Rx Instructions: TREATMENT FOR 10 DAYS WITH 2 DAYS LEFT FINISHING ON 03/27/22 nitrofurantoin monohyd/m-cryst 100 mg capsule 100 mg PO Q12H Rx Instructions: FOR 10 DAYS WITH 2 DAYS OF TREATMENT LEFT ENDING ON 03/27/22 diphenhydramine HCl [Benadryl] 25 mg Capsule 25 mg PO TID PRN (Reason: Itching) ondansetron 4 mg tablet,disintegrating 4 mg PO Q8H PRN (Reason: nausea and vomiting) 30 Days Qty: 90 3RF levothyroxine [Synthroid] 50 mcg tablet 50 mcg PO DAILY 90 Days Qty: 90 4RF bisacodyl 5 mg tablet,delayed release (DR/EC) 10 mg PO DAILY Qty: 60 6RF Interventions: ED Discharge Assessment Last Done: 04/11/22 14:55 Discharge Date/Time: 04/11/22 15:58
[2022-04-11 12:57] VITALS: BP 110/69; PULSE 93; RESP 18; TEMP 36.8; O2SAT 97; BMI 20.3
== END 2022-04-11 15:58 | disposition left against medical advice (07) ==
LOC: HO.ED 15:47
PROVIDERS: Emergency Provider Emergency Medicine; PCP Internal Medicine
DX: R53.1 Weakness (principal); R05.9 Cough, unspecified
CPT/HCPCS: 71046; 99282; 99283

== ENCOUNTER 2022-04-20 10:54 | Outpatient (REF) | payer OTHER, SELFPAY ==
[2022-04-20 11:08] LABS: MANUAL DIFF FLAG NO
[2022-04-20 11:31] LABS: Basophils Percent Auto 0.7 % (0-2); Hematocrit 33.8 % (37.0-47.0); Hemoglobin 10.6 g/dl (12.0-16.0); Imm Gran Abs Auto 0.01 X10*3/uL (0.00-0.03); Imm Gran Pct Auto 0.3 % (0.0-0.4); Lymphocytes Percent Auto 33.8 % (20-40); Mean Corpuscular HGB Conc 31.4 g/dl (31.0-35.0); Mean Corpuscular Hemoglobin 27.6 pg (27.0-33.0); Mean Platelet Volume 9.7 fL (9.4-12.3); Monocytes Absolute Auto 0.4 X10*3/uL (0.1-1.2); Monocytes Percent Auto 13.6 % (2-11); Neutrophils Absolute Auto 1.5 x10*3/uL (2.0-8.3); Neutrophils Percent Auto 50.6 % (45-73); Platelet Count 224 X10*3/uL (160-400); Red Blood Count 3.84 X10*6/uL (4.20-5.50); Red Cell Distribution Width 12.7 % (11.0-16.0); White Blood Count 2.9 X10*3/uL (4.8-10.8)
[2022-04-20 11:58] LABS: Appearance Urine Clear; Color Urine Yellow; Glucose Urine UA Negative (Negative); Leukocyte Esterase Urine Negative (Negative); Nitrite Urine Negative (Negative); PH 8.5 (5.0-9.0); Specific Gravity - Urine 1.015 (1.005-1.025); Urine Blood Negative (Negative); Urine Ketones Negative (Negative); Urine Protein Negative (Neg-Trace)
[2022-04-20 12:05] LABS: Alanine Aminotransferase 20 U/L (0-31); Albumin Level 3.8 g/dL (3.5-5.0); Alkaline Phosphatase 59 U/L (39-117); Anion Gap 11 (12-20); Aspartate Amino Transferase 21 U/L (5-31); Bilirubin Total 0.5 mg/dL (0.0-1.0); Blood Urea Nitrogen 16 mg/dL (9-16); Carbon Dioxide 30 mmol/L (22-29); Chloride 106 mmol/L (96-108); Estimated Glomerular Filt Rate > 60; Glucose Random 84 mg/dL (60-115); Potassium 3.8 mmol/L (3.3-5.1); Sodium 143 mmol/L (135-145); Total Protein 6.2 g/dL (6.5-8.0)
== END 2022-04-20 10:55 | disposition home or self-care (01) ==
LOC: HO.LAB 10:54
PROVIDERS: PCP Internal Medicine; Visit Provider Internal Medicine
DX: R30.0 Dysuria (principal); R53.1 Weakness
CPT/HCPCS: 36415; 80053; 81003; 85025

== ENCOUNTER 2022-05-24 12:48 | Outpatient (REF) | payer OTHER, SELFPAY ==
[2022-05-24 16:10] LABS: C Reactive Protein < 0.10 mg/dL (< or = 0.50)
== END 2022-05-24 12:49 | disposition home or self-care (01) ==
LOC: HO.LAB 12:48
PROVIDERS: PCP Internal Medicine; Visit Provider Nurse Practitioner
DX: R19.7 Diarrhea, unspecified (principal); K59.04 Chronic idiopathic constipation; K21.9 Gastro-esophageal reflux disease without esophagitis
CPT/HCPCS: 36415; 86140; 99212

== ENCOUNTER 2022-06-01 16:39 | Outpatient (REF) | payer OTHER, SELFPAY ==
[2022-06-02 14:17] LABS: Adenovirus F 40/41 Not Detected (Not Detect.); Astrovirus Not Detected (Not Detect.); Campylobacter Not Detected (Not Detect.); Cryptosporidium Not Detected (Not Detect.); Cyclospora cayetanensis Not Detected (Not Detect.); E. coli EAEC Not Detected (Not Detect.); E. coli EPEC Not Detected (Not Detect.); E. coli ETEC Not Detected (Not Detect.); E. coli STEC Not Detected (Not Detect.); Entamoeba histolytica Not Detected (Not Detect.); Giardia lamblia Not Detected (Not Detect.); Norovirus GI/GII Not Detected (Not Detect.); Plesiomonas shigelloides Not Detected (Not Detect.); Rotavirus A Not Detected (Not Detect.); Salmonella Not Detected (Not Detect.); Sapovirus Not Detected (Not Detect.); Shigella sp./EIEC Not Detected (Not Detect.); Vibrio Not Detected (Not Detect.); Vibrio Cholerae Not Detected (Not Detect.); Yersinia enterocolitica Not Detected (Not Detect.)
== END 2022-06-01 16:40 | disposition home or self-care (01) ==
LOC: HO.LNP 16:39
PROVIDERS: Visit Provider Nurse Practitioner
DX: R19.7 Diarrhea, unspecified (principal)
CPT/HCPCS: 87507

== ENCOUNTER → 2022-06-15 14:13 | Outpatient (BNVA) | payer OTHER, SELFPAY | PROVIDERS: PCP Internal Medicine; Visit Provider Nurse Practitioner Family | DX: M05.9 Rheumatoid arthritis with rheumatoid factor, unspecified (principal); M32.9 Systemic lupus erythematosus, unspecified; I73.00 Raynaud's syndrome without gangrene; M79.7 Fibromyalgia; D64.9 Anemia, unspecified; Z79.899 Other long term (current) drug therapy | CPT/HCPCS: 99212 ==

== ENCOUNTER 2022-07-22 15:36 | Outpatient (REF) | payer OTHER, SELFPAY ==
--- NOTE | ~2022-07-22 | US_ITS ---
EXAMINATION: US PELVIS LIMITED (BLADDER) CLINICAL INFORMATION: Cystitis, unspecified without hematuria. COMPARISON: CT abdomen and pelvis 03/26/2022. TECHNIQUE: Real-time imaging of the bladder. FINDINGS: BLADDER: Well distended and normal. Bilateral ureteral jets are demonstrated. Prevoid bladder volume is 148 mL. Postvoid bladder volume is 12 mL. There are posterior wall trabeculations. US/US bladder IMPRESSION: There are posterior bladder wall trabeculations, possibly related to the provided history of cystitis or hypertrophy. There is no generalized bladder wall thickening. No mass or calculus is noted.
== END 2022-07-22 15:37 | disposition home or self-care (01) ==
LOC: HO.US 15:36
PROVIDERS: Visit Provider Internal Medicine
DX: N30.90 Cystitis, unspecified without hematuria (principal); R10.2 Pelvic and perineal pain
CPT/HCPCS: 76857

== ENCOUNTER 2022-07-25 10:18 | Outpatient (REF) | payer OTHER, SELFPAY ==
[2022-07-25 10:31] LABS: MANUAL DIFF FLAG NO
[2022-07-25 11:43] LABS: Appearance Urine Clear; Color Urine Yellow; Glucose Urine UA Negative (Negative); Leukocyte Esterase Urine Negative (Negative); Nitrite Urine Negative (Negative); PH 5.5 (5.0-9.0); Specific Gravity - Urine 1.015 (1.005-1.025); Urine Blood Negative (Negative); Urine Ketones Negative (Negative); Urine Protein Negative (Neg-Trace)
[2022-07-25 11:44] LABS: Basophils Percent Auto 0.3 % (0-2); Eosinophils Absolute Auto 0.1 X10*3/uL (0.0-0.4); Eosinophils Percent Auto 1.5 % (0-4); Hemoglobin 11.2 g/dl (12.0-16.0); Imm Gran Abs Auto 0.01 X10*3/uL (0.00-0.03); Imm Gran Pct Auto 0.3 % (0.0-0.4); Mean Corpuscular Hemoglobin 28.1 pg (27.0-33.0); Mean Corpuscular Volume 87.7 fL (80.0-98.0); Mean Platelet Volume 10.2 fL (9.4-12.3); Monocytes Absolute Auto 0.3 X10*3/uL (0.1-1.2); Monocytes Percent Auto 9.6 % (2-11); Neutrophils Absolute Auto 1.9 x10*3/uL (2.0-8.3); Neutrophils Percent Auto 58.3 % (45-73); Platelet Count 187 X10*3/uL (160-400); Red Blood Count 3.99 X10*6/uL (4.20-5.50); Red Cell Distribution Width 12.8 % (11.0-16.0); White Blood Count 3.3 X10*3/uL (4.8-10.8)
[2022-07-25 12:31] LABS: Creatinine Urine 92.31 mg/dL; Total Protein Urine Random 9 mg/dL (<12)
[2022-07-25 12:38] LABS: Erythrocyte Sedimentation Rate 10 MM/HR (0-20)
[2022-07-25 12:52] LABS: Alanine Aminotransferase 16 U/L (0-31); Alkaline Phosphatase 55 U/L (39-117); Anion Gap 15 (12-20); Aspartate Amino Transferase 19 U/L (5-31); Bilirubin Total 0.6 mg/dL (0.0-1.0); Blood Urea Nitrogen 13 mg/dL (9-16); C Reactive Protein < 0.10 mg/dL (< or = 0.50); Calcium 8.8 mg/dL (8.4-10.2); Carbon Dioxide 27 mmol/L (22-29); Chloride 101 mmol/L (96-108); Cholesterol 191 mg/dL; Estimated Glomerular Filt Rate > 60; Glucose Fasting 77 mg/dL (60-99); HDL Cholesterol 77 mg/dL; Iron 69 mcg/dL (30-160); LDL Cholesterol Calculated 103 mg/dl; Percent Iron Saturation 21 % (15-50); Potassium 3.7 mmol/L (3.3-5.1); Sodium 139 mmol/L (135-145); Total Iron Binding Capacity 329 mcg/dL (228-428); Total Protein 6.4 g/dL (6.5-8.0); Triglycerides 55 mg/dL; Unsaturated Iron Binding 260 ug/dL
[2022-07-25 13:12] LABS: Vitamin D 25-OH Total 43.3 ng/mL (>30)
[2022-07-25 13:24] LABS: Ferritin 20 ng/mL (10-250); Folate 12.6 ng/mL (> or = 4.0); Thyroid Stimulating Hormone 1.37 uIU/mL (0.32-4.0); Vitamin B12 543 pg/mL (200-900)
== END 2022-07-25 10:19 | disposition home or self-care (01) ==
LOC: HO.LAB 10:18
PROVIDERS: Internal Medicine; PCP Nurse Practitioner Family; Visit Provider Nurse Practitioner Family
DX: D64.9 Anemia, unspecified (principal); M32.9 Systemic lupus erythematosus, unspecified; M79.7 Fibromyalgia; E78.00 Pure hypercholesterolemia, unspecified; E03.9 Hypothyroidism, unspecified; E55.9 Vitamin D deficiency, unspecified; I10 Essential (primary) hypertension; R30.0 Dysuria
CPT/HCPCS: 36415; 80053; 80061; 81003; 82306; 82607; 82728; 82746; 83540; 84156; 84439; 84443; 85025; 85652; 86140

== ENCOUNTER → 2022-08-12 10:00 | Outpatient (BNVA) | payer OTHER, SELFPAY | PROVIDERS: PCP Internal Medicine; Visit Provider Nurse Practitioner Family | DX: R10.2 Pelvic and perineal pain (principal); R30.0 Dysuria; R35.0 Frequency of micturition | CPT/HCPCS: 51700; 51701; 51798; 99202; J1643 ==

== ENCOUNTER 2022-08-27 15:04 | Inpatient (IN) | payer OTHER, SELFPAY ==
[2022-08-27 15:16] VITALS: BP 133/82; PULSE 78; RESP 16; TEMP 36.6; O2SAT 100; BMI 20.8
--- NOTE | 2022-08-27 15:17 | ED_ITS ---
HPI - General Adult General Chief complaint: Anxiety <EMIR Singh Last Filed: 08/27/22 15:25> Stated complaint: panic attack <EMIR Singh Last Filed: 08/27/22 15:25> Time Seen by Provider: 08/27/22 15:32 <EMIR Singh Last Filed: 08/27/22 15:25> Source: patient <EMIR Gee Last Filed: 08/27/22 16:16> Mode of arrival: ambulatory <EMIR Gee Last Filed: 08/27/22 16:16> Limitations: no limitations <EMIR Gee Last Filed: 08/27/22 16:16> History of Present Illness HPI narrative: Patient is a 57 year old assigned female at with a history of depression presenting to the emergency department today with suicidal ideation. Patient states that she recently went through a medication change and is now having an increase in panic attacks with suicidal ideation. Patient denies any dizziness, lightheadedness, abdominal pain, nausea, vomiting, fever, chills, blurry vision, double vision, loss of vision, chest pain, difficulty breathing, shortness of breath, back pain, night sweats, pain with urination, increased urinary frequency, increased urinary urgency, blood in her urine or stool, syncope or a near syncopal episode, recent trauma or falls, bowel incontinence, bladder incontinence, bowel retention, bladder retention, or any other complaints at this time. <EMIR Gee Last Filed: 08/27/22 16:16> Onset (ago): day(s) <EMIR Gee Last Filed: 08/27/22 16:16> Relieving factors: none <EMIR Gee Last Filed: 08/27/22 16:16> Exacerbating factors: none <EMIR Gee Last Filed: 08/27/22 16:16> Associated symptoms: denies other symptoms <EMIR Gee Last Filed: 08/27/22 16:16> Related Data Home medications: Home Medications Medication Instructions Recorded Confirmed cholecalciferol (vitamin D3) 1,250 1,250 mcg PO QWEEK 03/26/22 08/12/22 mcg (50,000 unit) capsule dexlansoprazole 60 mg 60 mg PO DAILY 03/26/22 08/12/22 capsule,biphase delayed release diphenhydramine HCl 25 mg capsule 25 mg PO TID PRN Itching 03/26/22 08/12/22 (Benadryl) lidocaine 5 % topical patch 1 patch topical DAILY 03/26/22 08/12/22 cyclosporine 0.09 % eye drops in a 1 drp ophthalmic (eye) BID 05/24/22 08/12/22 dropperette (Cequa) onabotulinumtoxinA 200 unit 200 unit IM 05/24/22 08/12/22 solution for injection (Botox) oxyquinoline 0.025 %-sodium lauryl ea vaginal DAILY 05/24/22 08/12/22 sulfate 0.01 % vaginal gel (Trimo-Dueñas Jelly) Previous Rx's Medication Instructions Recorded Synthroid 50 mcg tablet 50 mcg PO DAILY 90 days #90 tabs 07/09/21 (levothyroxine) calcium citrate 500 mg PO BID #120 tabs 10/18/21 Magic Mouthwash 10 ml PO Q8H #240 mL 03/20/22 Diphen/Lido/Antacid 1:1:1 240 mL suspension gabapentin 300 mg capsule 300 mg PO TID 30 days #90 caps 05/19/22 clonazepam 1 mg tablet 1 mg PO BID PRN anxiety 30 days 07/04/22 #60 tabs trazodone 50 mg tablet 50 mg PO BEDTIME PRN insomnia 30 07/13/22 days #30 tabs Ventolin HFA 90 mcg/actuation 2 puff inhalation Q6H PRN 07/16/22 aerosol inhaler (albuterol sulfate) shortness of breath or wheezing 30 days #18 grams bisacodyl 5 mg tablet,delayed 10 mg PO DAILY constipation #60 07/18/22 release tabs diclofenac sodium 1 % topical gel 2 g topical DAILY PRN pain #100 07/29/22 grams diclofenac sodium 75 mg 75 mg PO BID PRN pain 30 days #60 07/29/22 tablet,delayed release tabs oxybutynin chloride 10 mg 10 mg PO DAILY 30 days #30 tabs 08/12/22 tablet,extended release 24 hr phenazopyridine 100 mg tablet 100 mg PO Q8H 6 doses #6 tabs 08/12/22 meloxicam 15 mg tablet 15 mg PO DAILY #30 tabs 08/20/22 <EMIR Singh Last Filed: 08/27/22 15:25> Allergies/adverse reactions: Allergies Allergy/AdvReac Type Severity Reaction Status Date / Time Sulfa (Sulfonamide Allergy Severe Itching Verified 08/12/22 10:48 Antibiotics) codeine [CODEINE] Allergy Intermediate ITCHING Verified 08/12/22 10:48 hydroxychloroquine Allergy Intermediate VOMITING Verified 08/12/22 10:48 [From PLAQUENIL] morphine [MORPHINE] Allergy Intermediate ITCHING Verified 08/12/22 10:48 oxycodone [From PERCOCET] Allergy Intermediate ITCHING Verified 08/12/22 10:48 tramadol [From ULTRAM] Allergy Intermediate ITCHING Verified 08/12/22 10:48 levothyroxine sodium Allergy Unknown rash,throat Verified 08/12/22 10:48 closes Corticosteroids AdvReac Severe DIFFICULTY Verified 08/12/22 10:48 (Glucocorticoids) BREATHING [CORTICOSTEROIDS (GLUCOCORTICOIDS)] acetaminophen [Percocet] AdvReac Unknown Unknown Verified 08/12/22 10:48 duloxetine AdvReac Unknown Unknown Verified 08/12/22 10:48 <EMIR Singh Last Filed: 08/27/22 15:25> Review of Systems Constitutional: Constitutional: Reports no additional constitutional com plaints, Denies chills, Denies fever(s) and Denies night sweats <EMIR Gee Last Filed: 08/27/22 16:16> Eyes: Eyes: Reports no additional eye complaints, Denies blurry vision, Denies change in vision, Denies diplopia, Denies eye discharge, Denies loss of vision and Denies eye pain <EMIR Gee Last Filed: 08/27/22 16:16> ENT: Denies dizziness <EMIR Gee Last Filed: 08/27/22 16:16> Cardiovascular: Cardiovascular: Reports no additional cardiovascular complaints, Denies chest pain, Denies lightheadedness, Denies Loss of Consciousness and Denies dyspnea <EMIR Gee Last Filed: 08/27/22 16:16> Respiratory: Respiratory: Reports no additional respiratory complaints and Denies dyspnea <EMIR Gee Last Filed: 08/27/22 16:16> Gastrointestinal: Gastrointestinal: Reports no additional gastrointestinal complaints, Denies abdominal pain, Denies melena, Denies hematochezia, Denies change in bowel habits and Denies change in stool character <EMIR Gee - Last Filed: 08/27/22 16:16> Genitourinary: Genitourinary: Denies hematuria, Denies urinary frequency, Denies dysuria, Denies urinary incontinence, Denies urinary hesitancy and Denies urinary urgency <EMIR Gee - Last Filed: 08/27/22 16:16> Musculoskeletal: Musculoskeletal: Reports no additional musculoskeletal complaints, Denies numbness and Denies tingling <EMIR Gee - Last Filed: 08/27/22 16:16> Neurologic: Denies dizziness, Denies loss of vision, Denies numbness and Denies tingling <EMIR Gee - Last Filed: 08/27/22 16:16> Psychiatric: Psychiatric: Reports homicidal ideation and Reports suicidal ideation <EMIR Gee - Last Filed: 08/27/22 16:16> Endocrine: Endocrine: Reports no additional endocrine complaints <EMIR Gee - Last Filed: 08/27/22 16:16> Hematologic/Lymphatic: Hematologic/Lymphatic: Reports no additional hematologic/lymphatic complaints <EMIR Gee - Last Filed: 08/27/22 16:16> Allergic/Immunologic: Allergic/Immunologic: Reports no additional allergic/immunologic complaints <EMIR Gee - Last Filed: 08/27/22 16:16> [facility] Past Medical History Attestation statement: The following information was validated with the patient. 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 Systemic lupus erythematosus Vitamin D deficiency <EMIR Singh - Last Filed: 08/27/22 15:25> Surgical History: Surgical History History of bilateral mastectomy History of section History of cholecystectomy History of esophagogastroduodenoscopy (EGD) History of total abdominal hysterectomy and bilateral salpingo-oophorectomy History of tubal ligation Hx of colonoscopy <EMIR Singh - Last Filed: 08/27/22 15:25> Family History Family History: Family History Father Hypertension Prostate cancer Mother Breast cancer Hypertension Asthma Maternal Aunt Breast cancer Maternal Grandmother Colon cancer Maternal Aunt Breast cancer <EMIR Singh - Last Filed: 08/27/22 15:25> Social History Social History: Social History Household Members: Children Household Members Other:: 2 daughters Housing: Apartment Alcohol intake: never Patient Tobacco Use Status: Never used Tobacco e-Cigarette/Vaping Use: Never Used Second Hand Smoke Exposure: Yes Advance Directives: Yes Advance Directives on File: Yes Advance Directives Date on File: 08/12/20 service: No Current occupational status: disabled Cognitive needs: Yes (cane) Hearing needs: No Vision needs: Yes (Glasses) <EMIR Singh - Last Filed: 08/27/22 15:25> Physical Exam ED Vital Signs: Vital Signs - 24 hr 08/27/22 15:16 Temperature 98 F Pulse Rate 78 Respiratory Rate 16 Blood Pressure 133/82 Pulse Oximetry 100 Oxygen Delivery Method Room Air BMI result Body Mass Index 20.8 <EMIR Singh - Last Filed: 08/27/22 15:25> Vital Signs - 24 hr 08/27/22 15:16 Temperature 98 F Pulse Rate 78 Respiratory Rate 16 Blood Pressure 133/82 Pulse Oximetry 100 Oxygen Delivery Method Room Air BMI result Body Mass Index 20.8 <EMIR Gee - Last Filed: 08/27/22 16:16> Const General: cooperative, no acute distress, alert and awake <Minerva Stuart [employer] Last Filed: 08/27/22 16:16> Nutritional Appearance: well nourished <Minerva Stuart [place] - Last Filed: 08/27/22 16:16> Orientation/consciousness: patient oriented x3 <Minerva Stuart [employer] [facility] Last Filed: 08/27/22 16:16> Limitations: no limitations <Minerva Stuart [employer] [facility] Last Filed: 08/27/22 16:16> HENMT Head: Yes normal to inspection and Yes atraumatic <Minerva Stuart [employer] [facility] Last Filed: 08/27/22 16:16> Ears: hearing grossly normal bilaterally and external ears normal <Minerva Stuart [employer] [facility] Last Filed: 08/27/22 16:16> General nose exam: Normal external nose present, no nasal discharge noted and no epistaxis <Minerva Stuart [employer] [facility] Last Filed: 08/27/22 16:16> Face and sinus: Yes normal facial exam, No abrasion and No laceration <Minerva Stuart [employer] [facility] Last Filed: 08/27/22 16:16> Mouth: Normal oral and palatal mucosa present, no drooling and no muffled voice <Minerva Stuart [employer] [facility] Last Filed: 08/27/22 16:16> Eyes General: appearance normal, both eyes and all related structures <Minerva Stuart [employer] [facility] Last Filed: 08/27/22 16:16> Periorbital: periorbital findings normal <Minerva Stuart [employer] [facility] Last Filed: 08/27/22 16:16> Eyelids: Yes eyelids normal <Minerva Stuart [employer] [facility] Last Filed: 08/27/22 16:16> Conjunctivae: conjunctivae normal <Minerva Stuart [employer] [facility] Last Filed: 08/27/22 16:16> Pupils: Equal, round and reactive pupils present <Minerva Stuart [employer] [facility] Last Filed: 08/27/22 16:16> EOM: EOMs intact bilaterally <Minerva Stuart [employer] [facility] Last Filed: 08/27/22 16:16> Neck Neck: Yes normal visual inspection, Yes full ROM and Yes no lymphadenopathy <Minerva Stuart [employer] [facility] Last Filed: 08/27/22 16:16> Chest Chest palpation & inspection: normal inspection of the chest <Minerva Stuart [place] - Last Filed: 08/27/22 16:16> Resp Effort & Inspection: normal respiratory effort and able to speak in complete sentences <Minerva Stuart [employer] [facility] Last Filed: 08/27/22 16:16> GI Inspection: Yes normal to inspection <Minerva Stuart [employer] [facility] Last Filed: 08/27/22 16:16> Neuro General: patient oriented x3 and moves all extremities <Minerva Stuart [employer] [facility] Last Filed: 08/27/22 16:16> Cranial nerves: Yes Equal, round and reactive pupils present <Minerva Stuart [employer] [facility] Last Filed: 08/27/22 16:16> Cognition (Neuro): normal cognition <Minerva Stuart [employer] [facility] Last Filed: 08/27/22 16:16> Motor exam (neuro): 5/5 motor strength present throughout <Minerva Stuart [employer] [facility] Last Filed: 08/27/22 16:16> Sensory Exam: Normal double simultaneous stimulation for sensation <Minerva Stuart [employer] [facility] Last Filed: 08/27/22 16:16> Coordination: [id number] test normal <Minerva Stuart [employer] [facility] Last Filed: 08/27/22 16:16> Extrem General: Yes normal to inspection, Yes full ROM and Yes capillary refill normal <Minerva Stuart [place] - Last Filed: 08/27/22 16:16> Psych Appearance: grossly normal <Minerva Stuart [employer] [facility] Last Filed: 08/27/22 16:16> Mental Status: mental status grossly normal <Minerva Stuart [employer] [facility] Last Filed: 08/27/22 16:16> Affect: normal affect <Minerva Stuart [employer] [facility] Last Filed: 08/27/22 16:16> Attitude: cooperative <Minerva Stuart [employer] [facility] Last Filed: 08/27/22 16:16> Thought process: Normal thought process present <Minerva Stuart [employer] [facility] Last Filed: 08/27/22 16:16> Thought content: Normal thought content present <Minerva Stuart [employer] [facility] Last Filed: 08/27/22 16:16> Insight: Good insight present (Psych) <Minerva Stuart [place] - Last Filed: 08/27/22 16:16> Course Course Course Narrative: This is an RME: Additional HPI, ROS, PE not included below will be deferred to primary provider. This is a 57 [id number], hx of hypothyroidism, bipolar depression, lupus, presenting to the ER for worsening anxiety and panic attacks. States that her doctor recently changed her medication from Wellbutrin to Lexapro on July 11. She has been calling the last two days to follow up but no one has been returning her phone calls. She has been having nausea, panic attacks, insomnia, and headaches since this medication adjustment. She is having suicidal and homicidal ideations. Plan: Labs, EKG, Psych pod notified about crisis <EMIR Singh - Last Filed: 08/27/22 15:25> Medical Decision Making Medical Decision Making [facility] Narrative: Patient is a 57 year old assigned female at with a history of depression presenting to the emergency department today with suicidal ideation. Patient's physical exam was unremarkable. Patient's blood work is pending. Patient is awaiting evaluation by CARE team. <EMIR Gee - Last Filed: 08/27/22 16:16> Differential Diagnosis Differential Diagnoses: The differential diagnosis associated with the presentation includes <EMIR Gee - Last Filed: 08/27/22 16:16> suicidal ideation <EMIR Gee - Last Filed: 08/27/22 16:16> Lab Data [facility] Lab Attestation statement: I reviewed the patient's lab results. <EMIR Gee - Last Filed: 08/27/22 16:16> Labs: Lab Results 08/27/22 Range/Units 15:59 Urine Color Yellow Urine Appearance Clear Urine pH 6.0 (5.0-9.0) Ur Specific [place] 1.015 (1.005-1.025) Urine Protein Negative (Neg-Trace) mg/dL Urine Glucose (UA) Negative (Negative) mg/dL Urine Ketones Negative (Negative) mg/dL Urine Blood Negative (Negative) Urine Nitrite Negative (Negative) Ur Leukocyte Esterase Small (1+) H (Negative) <EMIR Singh - Last Filed: 08/27/22 15:25> Lab Results 08/27/22 Range/Units 15:59 Urine Color Yellow Urine Appearance Clear Urine pH 6.0 (5.0-9.0) Ur Specific [place] 1.015 (1.005-1.025) Urine Protein Negative (Neg-Trace) mg/dL Urine Glucose (UA) Negative (Negative) mg/dL Urine Ketones Negative (Negative) mg/dL Urine Blood Negative (Negative) Urine Nitrite Negative (Negative) Ur Leukocyte Esterase Small (1+) H (Negative) <EMIR Gee - Last Filed: 08/27/22 16:16> Discharge Plan Discharge Clinical Impression: Feeling suicidal <EMIR Singh - Last Filed: 08/27/22 15:25> Patient Disposition: Still a Patient <EMIR Singh - Last Filed: 08/27/22 15:25> Prescriptions: No Action calcium citrate 250 mg calcium tablet 500 mg PO BID Qty: 120 5RF Magic Mouthwash Diphen/Lido/Antacid 1:1:1 240 mL suspension 10 ml PO Q8H Qty: 240 0RF Rx Instructions: Lidocaine Viscous 2 % 80mL; diphenhydramine 12.5 mg/5 mL 80mL; aluminum-mag hydrox-simeth [id number]/5mL 80mL clonazepam 1 mg tablet 1 mg PO BID PRN (Reason: anxiety) 30 Days Qty: 60 0RF trazodone 50 mg tablet 50 mg PO BEDTIME PRN (Reason: insomnia) 30 Days Qty: 30 1RF albuterol sulfate [Ventolin HFA] 90 mcg/actuation HFA aerosol inhaler 2 puff inhalation Q6H PRN (Reason: shortness of breath or wheezing) 30 Days Qty: 18 1RF bisacodyl 5 mg tablet,delayed release (DR/EC) 10 mg PO DAILY Qty: 60 1RF meloxicam 15 mg tablet 15 mg PO DAILY Qty: 30 0RF lidocaine 5 % adhesive patch,medicated 1 patch topical DAILY cholecalciferol (vitamin D3) 1,250 mcg (50,000 unit) capsule 1,250 mcg PO QWEEK dexlansoprazole 60 mg capsule,biphase delayed releas 60 mg PO DAILY diphenhydramine HCl [Benadryl] 25 mg Capsule 25 mg PO TID PRN (Reason: Itching) diclofenac sodium 1 % gel 2 g topical DAILY PRN (Reason: pain) Qty: 100 2RF diclofenac sodium 75 mg tablet,delayed release (DR/EC) 75 mg PO BID PRN (Reason: pain) 30 Days Qty: 60 1RF Rx Instructions: Take with food gabapentin 300 mg capsule 300 mg PO TID 30 Days Qty: 90 3RF levothyroxine [Synthroid] 50 mcg tablet 50 mcg PO DAILY 90 Days Qty: 90 4RF oxybutynin chloride 10 mg tablet extended release 24hr 10 mg PO DAILY 30 Days Qty: 30 1RF phenazopyridine 100 mg tablet 100 mg PO Q8H 0 Days Qty: 6 0RF Cequa 0.09 % dropperette 1 drp ophthalmic (eye) BID Botox 200 unit recon soln 200 unit IM Trimo-Dueñas Jelly 0.025-0.01 % gel vaginal DAILY <EMIR Singh - Last Filed: 08/27/22 15:25>
--- OUTSIDE RECORDS SUMMARY | 2022-08-27 15:32 | XMS_ITS ---
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 264496464 Problem Family history of breast cancer Z80.3 Active 755106302 Problem Leukopenia, unspecified type D72.819 Active 53334675 Problem Hypothyroidism (acquired) E03.9 Active 48834558 Problem Severe episode of recurrent major depressive disorder, without psychotic features F33.2 Active 13615239 Problem Estrogen receptor positive status [ER+] Z17.0 Active 471371655 Problem Malignant neoplasm of unspecified site of right female breast C50.911 Active 553954177 ALLERGIES Substance Reaction Event Type Date Status Percocet Unknown Drug Allergy Jul, Active OxyCODONE HCl ER Unknown Drug Allergy Jul, Acti ve Tramadol HCl Unknown Drug Allergy Jul, Active PredniSONE Unknown Drug Allergy Jul, Active Plaquenil Unknown Drug Allergy 15 Jul, 2022 Active Levothyroxine Sodium Unknown Drug Allergy 15 Jul, 2022 Active Cortisone Unknown Drug Allergy 15 Jul, 2022 Active Codeine Sulfate Unknown Drug Allergy 15 Jul, 2022 Activ e Morphine Sulfate Unknown Drug Allergy 15 Jul, 2022 Acti ve ENCOUNTERS Encounter Location Date Diagnosis Som Nevarez III, MD [address] [place] [address] [place] [address] 13 Jul, 2022 Leukopenia, unspecified type D72.819 ; Ductal carcinoma in situ (DCIS) of left breast D05.12 ; Malignant neoplasm of unspecified site of right female breast C50.911 ; Estrogen receptor positive status [ER+] Z17.0 ; Hypothyroidism (acquired) E03.9 and Family history of breast cancer Z80.3 Som Nevarez III, MD [address] [place] [address] [place] [address] 03 Jul, 2022 Som Nevarez III, MD [address] [place] [address] [place] [address] Jun, Leukopenia, unspecified type D72.819 ; Ductal carcinoma in situ (DCIS) of left breast D05.12 ; Malignant neoplasm of unspecified site of right female breast C50.911 ; Severe episode of recurrent major depressive disorder, without psychotic features F33.2 ; Hypothyroidism (acquired) E03.9 and Family history of breast cancer Z80.3 Som Nevarez III, MD [address] [place] [address] [place] [address] Jan, Som Nevarez III, MD [address] [place] [address] [place] [address] Jan, Som Nevarez III, MD [address] [place] [address] [place] [address] Jan, Som Nevarez III, MD [address] [place] [address] [place] [address] Jan, Leukopenia, unspecified type D72.819 ; UTI symptoms R39.9 ; Ductal carcinoma in situ (DCIS) of left breast D05.12 ; Malignant neoplasm of unspecified site of right female breast C50.911 ; Severe episode of recurrent major depressive disorder, without psychotic features F33.2 and Hypothyroidism (acquired) E03.9 Som Nevarez III, MD [address] [place] [address] [place] [address] Jul, Leukopenia, unspecified type D72.819 ; Hypothyroidism (acquired) E03.9 ; Severe episode of recurrent major depressive disorder, without psychotic features F33.2 ; Malignant neoplasm of unspecified site of right female breast C50.911 ; Family history of breast cancer Z80.3 and Weight loss R63.4 Som Nevarez III, MD [address] [place] [address] [place] [address] Jan, Leukopenia, unspecified type D72.819 ; Malignant neoplasm of unspecified site of right female breast C50.911 ; Ductal carcinoma in situ (DCIS) of left breast D05.12 and Underweight R63.6 Som Nevarez III, MD [address] [place] [address] [place] [address] Jul, Leukopenia, unspecified type D72.819 ; Ductal carcinoma in situ (DCIS) of left breast D05.12 ; Malignant neoplasm of unspecified site of right female breast C50.911 ; Severe episode of recurrent major depressive disorder, without psychotic features F33.2 ; Hypothyroidism (acquired) E03.9 and Weight loss R63.4 Som Nevarez III, MD [address] [place] [address] [place] [address] Mar, Leukopenia, unspecified type D72.819 ; Malignant neoplasm of unspecified site of right female breast C50.911 ; Hypothyroidism (acquired) E03.9 and Severe episode of recurrent major depressive disorder, without psychotic features F33.2 Som Nevarez III, MD [address] [place] [address] [place] [address] Dec, Som Nevarez III, MD [address] [place] [address] [place] [address] Nov, Leukopenia, unspecified type D72.819 ; HX: breast cancer Z85.3 ; Malignant neoplasm of unspecified site of right female breast C50.911 ; Ductal carcinoma in situ (DCIS) of left breast D05.12 ; Estrogen receptor positive status [ER+] Z17.0 ; Severe episode of recurrent major depressive disorder, without psychotic features F33.2 and Hypothyroidism (acquired) E03.9 Som Nevarez III, MD [address] [place] [address] [place] [address] August, Leukopenia, unspecified type D72.819 ; Ductal carcinoma in situ (DCIS) of left breast D05.12 ; Hypothyroidism (acquired) E03.9 and Family history of breast cancer Z80.3 Som Nevarez III, MD [address] [place] [address] [place] [address] Jun, Leukopenia, unspecified type D72.819 ; Ductal carcinoma in situ (DCIS) of left breast D05.12 ; Severe episode of recurrent major depressive disorder, without psychotic features F33.2 ; Hypothyroidism (acquired) E03.9 and Postmenopausal Z78.0 Som Nevarez III, MD [address] [place] [address] [place] [address] May, Leukopenia, unspecified type D72.819 Som Nevarez III, MD [address] [place] [address] [place] [address] Mar, Leukopenia, unspecified type D72.819 ; Ductal carcinoma in situ (DCIS) of left breast D05.12 ; Malignant neoplasm of unspecified site of right female breast C50.911 ; Estrogen receptor positive status [ER+] Z17.0 ; Severe episode of recurrent major depressive disorder, without psychotic features F33.2 ; Hypothyroidism (acquired) E03.9 ; Pulmonary nodule R91.1 ; Postmenopausal Z78.0 ; 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 and Family history of breast cancer Z80.3 IMMUNIZATIONS No Known Immunizations SOCIAL HISTORY Qualifiers Date Never Smoker REASON FOR REFERRAL FUNCTIONAL STATUS PLAN OF CARE Activity Details VITAL SIGNS Height 62 in 2022-08-11 Height 62 in 2022-07-29 Height 62 in 2022-02-22 Height 62 in 2021-08-23 Height 62 in 2021-02-10 Height 62 in 2020-08-04 Height 62 in 2020-03-30 Height 62 in 2019-12-25 Height 62 in 2019-05-16 Height 62 in 2019-04-08 Weight 116 lbs 2022-07-29 Weight 113 lbs 2022-02-22 Weight 111 lbs 2021-08-23 Weight 105 lbs 2021-02-10 Weight 103 lbs 2020-08-04 Weight 108 lbs 2020-03-30 Weight 112 lbs 2019-12-25 Weight 119 lbs 2019-05-16 Weight 118 lbs 2019-04-08 BMI 21.21 kg/m2 2022-07-29 BMI 20.67 kg/m2 2022-02-22 BMI 20.30 kg/m2 2021-08-23 BMI 19.20 kg/m2 2021-02-10 BMI 18.84 kg/m2 2020-08-04 BMI 19.75 kg/m2 2020-03-30 BMI 20.48 kg/m2 2019-12-25 BMI 21.76 kg/m2 2019-05-16 BMI 21.58 kg/m2 2019-04-08 Heart Rate 65 /min 2022-07-29 Heart Rate 84 /min 2022-02-22 Heart Rate 94 /min 2021-08-23 Heart Rate 82 /min 2021-02-10 Heart Rate 88 /min 2020-08-04 Heart Rate 86 /min 2020-03-30 Heart Rate 82 /min 2019-12-25 Heart Rate 80 /min 2019-05-16 Heart Rate 82 /min 2019-04-08 Temperature 98.6 degrees Fahrenheit Temperature 96.7 degrees Fahrenheit Temperature 96.7 degrees Fahrenheit Temperature 97.0 degrees Fahrenheit Temperature 97.0 degrees Fahrenheit Temperature 97.4 degrees Fahrenheit Temperature 96.5 degrees Fahrenheit Temperature 96.7 degrees Fahrenheit Blood pressure systolic 112 mm Hg Blood pressure diastolic 82 mm Hg 2022-01 MEDICATIONS Medication Instructions Dosage Frequency Start Date End Date Duration Status levoFLOXacin 500 MG TAKE 1 TABLET ORALLY DAILY FOR 7 DAYS Active Dexlansoprazole 60 MG Orally Once a day 1 capsule 24h Active clonazePAM 1 MG (Schedule IV Drug) (Prior Auth: Rx Ref#:[id number]) Active Ventolin HFA 108 (90 Base) MCG/ACT Inhalation every 4 hrs 1 puff as needed 4h Active diphenhydrAMINE HCl 25 MG Orally Once a day 1 capsule at bedtime as needed 24h Jun, Active cycloSPORINE (PF) 0.09 % Ophthalmic every 12 hrs 1 drop into affected eye 12h Active Bisacodyl 5 MG Orally Once a day 1 tablet as needed 24h Active Linzess 290 MCG Orally Once a day 1 capsule at least 30 minutes before the first meal of the day on an empty stomach 24h Active Lidocaine 5 % APLIQUE UN PARCHE AL VICKEY EXTERNALLY AND REMOVE AFTER 12 HOURS FOR 30 DAYS. Active traZODone HCl 50 MG Orally Once a day (Prior Auth: Rx Ref#:[id number]) 24h Active Botox 200 UNIT A ctive Trimo-Dueñas 0.025-0.01 % USE VAGINALLY ONCE DAILY Active Calcium Citrate 250 MG Orally Once a day 1 tablet 24h Active Escitalopram Oxalate 10 MG TOME TRUDY TABLETA TODOS LOS D EN LA MA DANA Active Meloxicam 15 MG Orally Once a day 1 tablet 24h Active D3-50 1.25 MG (13993 UT) TOME 1 C PSULA POR V A ORAL ONCE EVERY WEEK Active Gabapentin 100 MG TAKE 1 CAPSULE BY MOUTH 3 TIMES DAILY Active Diclofenac Sodium 1 % (Prior Auth: Rx Ref#:[id number]) Active PROCEDURES Procedure Date Ordered Result Body Site PHONE E/M BY PHYS -20 MIN September 24, 2019 PHONE E/M BY PHYS 11-20 MIN July 29, 2019 RESULTS Name Result Date Reference Range Complete Blood Count Auto Diff 2022-02-22 White Blood Count 4.3 4.8-10.8 Red Blood Count 4.18 4.20-5.50 Hemoglobin 11.5 12.0-16.0 Hematocrit 36.5 37.0-47.0 Mean Corpuscular Volume 87.3 80.0 -98.0 Mean Corpuscular Hemoglobin 27.5 27.0-33.0 Mean Corpuscular HGB Conc 31.5 31 .0-35.0 Red Cell Distribution Width 12.6 11.0-16.0 Platelet Count 179 160-400 Mean Platelet Volume 9.6 9.4-12. 3 Neutrophils Percent Auto 72.3 45- 73 Imm Gran Pct Auto 0.2 0.0-0.4 Lymphocytes Percent Auto 17.6 20- 40 Monocytes Percent Auto 8.0 2-11 Eosinophils Percent Auto 1.4 0-4 Basophils Percent Auto 0.5 0-2 NRBC Pct Auto 0.0 0.0-0.2 Neutrophils Absolute Auto 3.1 2. 0-8.3 Imm Gran Abs Auto 0.01 0.00-0.03 Lymphocytes Absolute Auto 0.8 1. 2-4.9 Monocytes Absolute Auto 0.3 0.1- 1.2 Eosinophils Absolute Auto 0.1 0. 0-0.4 Basophils Absolute Auto 0.0 0.0- 0.2 NRBC Abs Auto 0.000 0.0-0.012 Erythrocyte Sedimentation Rate 2022-02-22 Erythrocyte Sedimentation Rate 12 0-20 Comprehensive Met. Panel 2022-02-22 Sodium 141 135-145 Potassium 4.5 3.3-5.1 Chloride 103 96-108 Carbon Dioxide 25 22-29 Anion Gap 18 12-20 Blood Urea Nitrogen 26 9-16 Creatinine 0.65 0.5-1.4 Estimated Glomerular Filt Rate >60 Glucose Random 70 60-115 Calcium 9.4 8.4-10.2 Bilirubin Total 0.5 0.0-1.0 Aspartate Amino Transferase 26 5-31 Alanine Aminotransferase 17 0-3 1 Total Protein 7.5 6.5-8.0 Albumin Level 4.5 3.5-5.0 Alkaline Phosphatase 53 39-117 Urine Culture 2022-02-22 O:ESCCOL Escherichia coli Urine Culture Quant Urine Culture >100,000 cfu/mL Ampicillin 4 Extended Spectrum Beta Lactam NEG Ceftriaxone <=1 Gentamicin <=1 Levofloxacin <=0.12 Nitrofurantoin <=16 Trimethoprim/Sulfamethoxazole <=20 UA ClnCatch+Micro w/rflx Cult 2022-02-22 Color Urine Dark Yellow Appearance Urine Cloudy PH 5.5 5.0-9.0 Glucose Urine UA Negative Negative Urine Blood Small (1+) Negative Specific [facility] - Urine >= 1.030 1.0 05-1.025 Urine Protein 30 (1+) Neg-Trace Urine Ketones 80 Negative Nitrite Urine Positive Negative Leukocyte Esterase Urine Moderate (2+) Ne gative RBC Urine 0-2 0-2 WBC Urine >50 0-5 Squamous Epithelial Cell Urine 0-2 0-2 Bacteria Urine 4+ None Seen Hyaline Casts Urine 0-2 0-2 Yeast Urine Present Complete Blood Count Auto Diff 2021-08-16 White Blood Count 3.6 4.8-10.8 Red Blood Count 4.30 4.20-5.50 Hemoglobin 12.1 12.0-16.0 Hematocrit 38.3 37.0-47.0 Mean Corpuscular Volume 89.1 80.0 -98.0 Mean Corpuscular Hemoglobin 28.1 27.0-33.0 Mean Corpuscular HGB Conc 31.6 31 .0-35.0 Red Cell Distribution Width 12.3 11.0-16.0 Platelet Count 191 160-400 Mean Platelet Volume 10.1 9.4-12. 3 Neutrophils Percent Auto 70.2 45- 73 Imm Gran Pct Auto 0.3 0.0-0.4 Lymphocytes Percent Auto 19.0 20- 40 Monocytes Percent Auto 9.9 2-11 Eosinophils Percent Auto 0.3 0-4 Basophils Percent Auto 0.3 0-2 NRBC Pct Auto 0.0 0.0-0.2 Neutrophils Absolute Auto 2.6 2. 0-8.3 Imm Gran Abs Auto 0.01 0.00-0.03 Lymphocytes Absolute Auto 0.7 1. 2-4.9 Monocytes Absolute Auto 0.4 0.1- 1.2 Eosinophils Absolute Auto 0.0 0. 0-0.4 Basophils Absolute Auto 0.0 0.0- 0.2 NRBC Abs Auto 0.000 0.0-0.012 Comprehensive Met. Panel 2021-08-16 Sodium 139 135-145 Potassium 4.9 3.3-5.1 Chloride 102 96-108 Carbon Dioxide 28 22-29 Anion Gap 14 12-20 Blood Urea Nitrogen 23 9-16 Creatinine 0.70 0.5-1.4 Estimated Glomerular Filt Rate >60 Glucose Random 87 60-115 Calcium 9.5 8.4-10.2 Bilirubin Total 0.3 0.0-1.0 Aspartate Amino Transferase 23 5-31 Alanine Aminotransferase 27 0-3 1 Total Protein 6.9 6.5-8.0 Albumin Level 4.2 3.5-5.0 Alkaline Phosphatase 52 39-117 Albumin Level 2021-08-16 Albumin Level 4.2 3.5-5.0 Vitamin D 25-OH Total 2021-08-16 Vitamin D 25-OH Total 51.6 >30 Collagen Crosslinks NTX 2021-08-16 N-Telopeptide 63 see note NTXCreaRU 185 20-275 CA 27.29 2021-08-16 CA 27.29 24 <38 Complete Blood Count Auto Diff 2020-08-01 White Blood Count 3.4 4.8-10.8 Red Blood Count 4.00 4.20-5.50 Hemoglobin 11.3 12.0-16.0 Hematocrit 36.1 37-47 Mean Corpuscular Volume 90.3 80-9 8 Mean Corpuscular Hemoglobin 28.3 27.0-33.0 Mean Corpuscular HGB Conc 31.3 31 .0-35.0 Red Cell Distribution Width 12.5 11.0-16.0 Platelet Count 178 160-400 Mean Platelet Volume 9.6 9.4-12. 3 Neutrophils Percent Auto 68.8 45- 73 Imm Gran Pct Auto 0.0 0.0-0.4 Lymphocytes Percent Auto 22.9 20- 40 Monocytes Percent Auto 7.1 2-11 Eosinophils Percent Auto 0.6 0-4 Basophils Percent Auto 0.6 0-2 NRBC Pct Auto 0.0 0.0-0.2 Neutrophils Absolute Auto 2.3 2. 0-8.3 Imm Gran Abs Auto 0.00 0.00-0.03 Lymphocytes Absolute Auto 0.8 1. 2-4.9 Monocytes Absolute Auto 0.2 0.1- 1.2 Eosinophils Absolute Auto 0.0 0. 0-0.4 Basophils Absolute Auto 0.0 0.0- 0.2 NRBC Abs Auto 0.000 0.0-0.012 Comprehensive Met. Panel 2020-08-01 Sodium 141 135-145 Potassium 4.1 3.3-5.1 Chloride 104 96-108 Carbon Dioxide 28 22-29 Anion Gap 13 12-20 Blood Urea Nitrogen 18 9-16 Creatinine 0.68 0.5-1.4 Estimated Glomerular Filt Rate >60 Glucose Random 75 60-115 Calcium 8.9 8.4-10.2 Bilirubin Total 0.3 0.0-1.0 Aspartate Amino Transferase 29 5-31 Alanine Aminotransferase 36 0-3 1 Total Protein 7.1 6.5-8.0 Albumin Level 4.3 3.5-5.0 Alkaline Phosphatase 44 39-117 CA 27.29 2020-08-01 CA 27.29 24 <38 PROFILE, RANDOM (COMPREHENSI VE METABOLIC) 2019-12-17 NA 141 135-145 K 4.0 3.3-5.1 CL 105 96-108 CO2 29 22-29 ANION GAP 11 12-20 GLUCOSE,RANDOM 83 60-115 BUN 18 9-16 CREATININE 0.74 0.5-1.4 ESTIMATED GFR >60 PROTEIN, TOTAL 6.9 6.5-8.0 ALBUMIN 4.3 3.5-5.0 BILIRUBIN, TOTAL 0.3 0.0-1.0 CALCIUM 9.2 8.4-10.2 ALK. PHOS. 47 39-117 GOT 34 5-31 GPT 45 0-31 CBC w DIFF 2019-12-17 WBC 3.6 4.8-10.8 RBC 3.98 4.20-5.50 HEMOGLOBIN 11.2 12.0-16.0 HEMATOCRIT 35.8 37-47 MCV 89.9 80-98 MCH 28.1 27.0-33.0 MCHC 31.3 31.0-35.0 PLATELET COUNT 177 160-400 RDW 12.8 11.0-16.0 NEUTROPHILS 69.6 45-73 LYMPHOCYTES 18.7 20-40 MONOCYTES 10.0 2-11 EOSINOPHILS 1.1 0-4 BASOPHILS 0.3 0-2 ABSOLUTE NEUTROPHIL COUNT 2.5 2. 0-8.3 ABSOLUTE LYMPHOCYTE COUNT 0.7 1. 2-4.9 ABSOLUTE MONOCYTE COUNT 0.4 0.1- 1.2 ABSOLUTE EOSINOPHIL COUNT 0.0 0. 0-0.4 ABSOLUTE BASOPHIL COUNT 0.0 0.0- 0.2 PROFILE, RANDOM (COMPREHENSI VE METABOLIC) 2019-07-26 NA 142 135-145 K 3.8 3.3-5.1 CL 102 96-108 CO2 31 22-29 ANION GAP 13 12-20 GLUCOSE,RANDOM 77 60-115 BUN 16 9-16 CREATININE 0.74 0.5-1.4 ESTIMATED GFR >60 PROTEIN, TOTAL 7.0 6.5-8.0 ALBUMIN 4.4 3.5-5.0 BILIRUBIN, TOTAL 0.4 0.0-1.0 CALCIUM 9.2 8.4-10.2 ALK. PHOS. 47 39-117 GOT 26 5-31 GPT 33 0-31 FREE T4 (FT4) 2019-07-26 FREE T4 1.01 0.71-1.85 TSH (THYROID STIMULATING HORMONE) 2019-06 TSH 1.12 0.32-4.0 CBC w DIFF 2019-07-26 WBC 2.8 4.8-10.8 ABSOLUTE NEUTROPHIL COUNT 1.8 2. 2-7.9 RBC 4.12 4.20-5.50 HEMOGLOBIN 11.9 12.0-16.0 HEMATOCRIT 36.7 37-47 MCV 89.0 80-98 MCH 28.8 27.0-33.0 MCHC 32.4 31.0-35.0 PLATELET COUNT 184 160-400 RDW 13.1 11.0-16.0 NEUTROPHILS 61.6 45-73 LYMPHOCYTES 28.3 20-40 MONOCYTES 7.9 2-11 EOSINOPHILS 0.7 0-4 BASOPHILS 1.5 0-2 PROFILE, RANDOM (COMPREHENSI VE METABOLIC) 2019-05-14 NA 141 135-145 K 3.9 3.3-5.1 CL 104 96-108 CO2 28 22-29 ANION GAP 13 12-20 GLUCOSE,RANDOM 77 60-115 BUN 19 9-16 CREATININE 0.69 0.5-1.4 ESTIMATED GFR >60 PROTEIN, TOTAL 6.9 6.5-8.0 ALBUMIN 4.2 3.5-5.0 BILIRUBIN, TOTAL 0.4 0.0-1.0 CALCIUM 8.6 8.4-10.2 ALK. PHOS. 52 39-117 GOT 62 5-31 GPT 80 0-31 CBC with MANUAL DIFFERENTIAL 2019-05-14 WBC 2.5 4.8-10.8 ABSOLUTE NEUTROPHIL COUNT 1.3 2. 2-7.9 RBC 4.09 4.20-5.50 HEMOGLOBIN 11.7 12.0-16.0 HEMATOCRIT 35.0 37-47 MCV 85.5 80-98 MCH 28.7 27.0-33.0 MCHC 33.5 31.0-35.0 PLATELET COUNT 180 160-400 RDW 13.1 11.0-16.0 SEGS 55 45-73 LYMPHOCYTES 40 20-40 MONOCYTES 4 2-11 EOSINOPHILS 1 0-4 NUCLEATED RED CELLS 2 0-0 PLATELET ESTIMATE NORMAL NORMAL PLATELET MORPHOLOGY NORMAL NORMAL RBC MORPHOLOGY 1+ POIK NORMAL RBC MORPHOLOGY ELLIPTOCYTES NORMAL RBC MORPHOLOGY ACANTHOCYTES NORMAL PROTHROMBIN TIME (PT, INR) 2019-05-14 INTERNATIONAL NORM. RATIO 0.9 SE E NOTE PROTHROMBIN TIME 10.3 10.8-13.0 PARTIAL THROMBOPLASTIN TIME (PTT) 2019-05 PARTIAL THROMBOPLASTIN TIME 31.9 24.1-38.0 WBC NEUTROPHIL CYTOPLASMA AB (NCA ANCA) 2 NEUTROPHIL CYTO AB SCREEN Negative Ne gative C-ANCA TITER Test not performed P-ANCA TITER Test not performed ATYPICAL P-ANCA TITER Test not performed REASON FOR VISIT Followup, Hereditary Cancer Test, Hereditary Cancer Test, Hereditary Cancer Test, will not see patient , History of bilateral breast cancer, in remission, Chronic Leukopenia, Depression, Hypothyroid,Strong family history of breast cancer, lab results , Leukopenia, Breast Cancer, History of major depression, Hypothyroid, Followup, Leukopenia, Breast Cancer, DCIS left breast, Leukopenia, Carcinomaof the right breast, Hypothyroid, Major depression, leukopenia, History of Breast Cancer, Leukopenia, History of Breast Cancer, invasive ductal carcinoma of the right breast, 2010, DCIS left breast, leukopenia, major depression, hypothyroid, Updated Medication list, leukopenia, History of breast cancer, leukopenia, history of ductal carcinoma in situ right breast, major depression, hypothyroidism, leukopenia, right breast cancer, depression, hypothyroid, leukopenia/H/O breast cancer , leukopenia, history of breast cancer, major depression, hypothyroid, autoimmune disorder, leukopenia, invasive ductal carcinoma of the right breast. 2010, DCIS left breast. 2010, leukopenia/H/O breast cancer Insurance Providers Health Insurance Type Health Plan Insurance Address Health Plan Insurance Phone Health Plan Insurance Name Health Plan Coverage Dates Member ID Patient Relationship to Subscriber Patient Address Patient Phone Patient Name Patient Date of Subscriber ID Subscriber Name Subscriber Date of Group No [employer] [address] [address] [facility] [id number] [employer] self Iris Velez-V ega [id number]
[2022-08-27 16:10] LABS: Appearance Urine Clear; Color Urine Yellow; Glucose Urine UA Negative (Negative); Leukocyte Esterase Urine Small (1+) (Negative); Nitrite Urine Negative (Negative); Specific Gravity - Urine 1.015 (1.005-1.025); UMIC TRIGGER UACC YES; Urine Blood Negative (Negative); Urine Ketones Negative (Negative); Urine Protein Negative (Neg-Trace)
[2022-08-27 16:18] LABS: Bacteria Urine None Seen (None Seen); Hyaline Casts Urine 0-2 /LPF (0-2); RBC Urine 0-2 /HPF (0-2); Squamous Epithelial Cell Urine 0-2 /HPF (0-2); UACC Culture Trigger YES; WBC Urine 0-5 /HPF (0-5)
[2022-08-27 16:19] LABS: Amphetamine Screen Urine Not Detected (Not Detect); Barbiturates, Urine Not Detected (Not Detect); Benzodiazepines Screen Urine POSITIVE (Not Detect); Cannabinoid Screen Urine Not Detected (Not Detect); Cocaine Screen Urine Not Detected (Not Detect); Fentanyl, urine POSITIVE (Not Detect); Opiate Screen Urine Not Detected (Not Detect); Phencyclidine Screen Urine Not Detected (Not Detect)
[2022-08-27 16:22] LABS: COVID-19 Test Negative (Negative); IDNOW Serial# 08D9AD1C
[2022-08-27 17:31] LABS: MANUAL DIFF FLAG NO
[2022-08-27 17:34] LABS: Basophils Percent Auto 0.6 % (0-2); Eosinophils Absolute Auto 0.1 X10*3/uL (0.0-0.4); Eosinophils Percent Auto 2.6 % (0-4); Hematocrit 34.2 % (37.0-47.0); Hemoglobin 11.1 g/dl (12.0-16.0); Imm Gran Abs Auto 0.04 X10*3/uL (0.00-0.03); Imm Gran Pct Auto 0.8 % (0.0-0.4); Lymphocytes Absolute Auto 1.4 X10*3/uL (1.2-4.9); Mean Corpuscular HGB Conc 32.5 g/dl (31.0-35.0); Mean Corpuscular Volume 86.1 fL (80.0-98.0); Mean Platelet Volume 10.5 fL (9.4-12.3); Monocytes Absolute Auto 0.5 X10*3/uL (0.1-1.2); Monocytes Percent Auto 9.5 % (2-11); Neutrophils Absolute Auto 2.9 x10*3/uL (2.0-8.3); Neutrophils Percent Auto 58.5 % (45-73); Platelet Count 175 X10*3/uL (160-400); Red Blood Count 3.97 X10*6/uL (4.20-5.50); Red Cell Distribution Width 13.1 % (11.0-16.0)
[2022-08-27 17:57] LABS: Alanine Aminotransferase 11 U/L (0-31); Albumin Level 3.7 g/dL (3.5-5.0); Alkaline Phosphatase 55 U/L (39-117); Anion Gap 9 (12-20); Aspartate Amino Transferase 19 U/L (5-31); Bilirubin Direct 0.1 mg/dL (0.0-0.5); Bilirubin Total 0.3 mg/dL (0.0-1.0); Blood Urea Nitrogen 19 mg/dL (9-16); Calcium 8.8 mg/dL (8.4-10.2); Carbon Dioxide 25 mmol/L (22-29); Chloride 111 mmol/L (96-108); Creatinine Clr Calc Pharmacy 82.5; Estimated Glomerular Filt Rate > 60; Ethanol < 10 mg/dL; Glucose Random 88 mg/dL (60-115); Magnesium 1.9 mg/dL (1.6-2.6); Potassium 4.1 mmol/L (3.3-5.1); Sodium 141 mmol/L (135-145); Total Protein 6.3 g/dL (6.5-8.0)
[2022-08-27 18:10] LABS: TSH reflex Free T4 0.66 uIU/mL (0.32-4.0)
--- NOTE | 2022-08-27 19:14 | MHC.EDTECH ---
pt walked placed in laundry in [facility] POD.
[2022-08-28 00:11] VITALS: BP 129/69; PULSE 72; RESP 16; TEMP 36.5; O2SAT 100
[2022-08-28] MEDS: clonazePAM 1 MG TABLET PO ×3 (00:15→21:36)
[2022-08-28] MEDS: traZODone HCL 50 MG TABLET PO ×2 (00:53→21:40)
--- NOTE | 2022-08-28 00:58 | PC.NURSE ---
Patient requested for Trazodone and Klonopin, provider notified ordered Klonopin 1 mg PO and Trazodone 50 mg administered @ 0015 & 0053 respectively with pending effect, patient currently tearful wanted to go home, patient was made aware of her disposition, patient is primarily French speaking with limited Greek comprehension, VSS, disposition per care team is section 12 inpatient bed search, med rec completed/pending provider's approval, behavior non concerning, will continue to monitor.
--- NOTE | 2022-08-28 07:39 | HE.PHANOTE ---
Pharmacy has received patient own Synthyoid. While patient is located the ER, pharmacy will send med done daily in the morning until patient is either discharged or moved to a unit.
[2022-08-28] MEDS: NaPROXEN 500 MG TABLET PO ×2 (09:14→21:35)
[2022-08-28] MEDS: Gabapentin 300 MG CAPSULE PO ×3 (09:14→21:37)
[2022-08-28] MEDS: oxyBUTYnin chloride ER 5 MG TAB.ER.24 10 MG PO (09:15)
--- NOTE | 2022-08-28 14:23 | ECG_ITS ---
Test Reason : OVER 50 Blood Pressure : / mmHG Vent. Rate : 072 BPM Atrial Rate : 072 BPM P-R Int : 162 ms QRS Dur : 072 ms QT Int : 408 ms P-R-T Axes : 068 060 071 degrees QTc Int : 446 ms Normal sinus rhythm with sinus arrhythmia Normal ECG When compared with ECG of 03-JAN-2019 15:22, No significant change was found Referred By: Tiffany Rodriguez Electronically Signed By:ALISA ADAMS MD
[2022-08-28 19:20] VITALS: BP 113/56; PULSE 79; TEMP 36.4
[2022-08-28] MEDS: Amitriptyline HCl 50 MG TABLET PO (21:36)
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
[2022-08-29 08:58] VITALS: BP 135/69; PULSE 78; TEMP 36.6
[2022-08-29] MEDS: oxyBUTYnin chloride ER 5 MG TAB.ER.24 10 MG PO (08:59)
[2022-08-29] MEDS: NaPROXEN 500 MG TABLET PO (09:00)
[2022-08-29] MEDS: Gabapentin 300 MG CAPSULE PO ×3 (09:00→22:04)
[2022-08-29] MEDS: clonazePAM 1 MG TABLET PO ×2 (09:00→22:04)
[2022-08-29 09:53] LABS: Folate 8.5 ng/mL (> or = 4.0); Free T4 (Free Thyroxine) 0.95 ng/dL (0.71-1.85); Thyroid Stimulating Hormone 0.61 uIU/mL (0.32-4.0); Vitamin B12 402 pg/mL (200-900)
[2022-08-29 10:21] LABS: Cholesterol 173 mg/dL; HDL Cholesterol 69 mg/dL; LDL Cholesterol Calculated 96 mg/dl; Triglycerides 42 mg/dL
[2022-08-29] MEDS: hydrOXYzine HCL 25 MG TABLET PO (11:15)
[2022-08-29 12:40] LABS: Estimated Average Glucose 105 mg/dL; Hemoglobin A1c % 5.3 %
--- NOTE | 2022-08-29 17:05 | P.HPPS_ITS ---
HPI Date of Service: 08/29/22 Chief Complaint: Suicidal Ideation Sources of Information: patient interviewed, chart reviewed and crisis/core team assessment reviewed HPI Subjective Notes: Love Warning and Conditional Voluntary Healthcare Proxy: No Guardianship: No Medical Problems Affecting Mental Status: No Narrative: [facility] [place] present. 57 yo female, history of reported PTSD and bipolar depression to ER with SI/HI with a plan to OD on her medicine. Reports stopping Lexapro 2 weeks ago due to reported adverse response including SI and increase in depressive sx. Reports feeling impulsive and worries she will harm herself. Her daughters concur. Pt reports she has been unable to contact her out patient team to discuss effects and changes. States I want to feel peace. The Lexapro, Wellbutrin, Trazodone gave me an attack and my daughter found me on the ground. Reports seizure and damage as a result. Describes panic, thinking she would , pruritis, headache, stomach pain, elevated blood pressure, anxiety. Several medicine sensitivities/allergies. Pt asks for changes to feel her like herself again. Describes current target sx as insomnia, hearing her daughter calling, hearing others call her, panic, pain, shortness of breath, shaking, nausea and imbalance. Declines to re-initiated Calcium, Vitamin D3 with regime. Past Psychiatric History: IP: 2017, 2018, [facility] [facility] Ulloa, tanesha and Laura Haley-prescriber SA: One by history Medical Evaluation Reviewed: Yes [facility] Medical History (Updated 08/29/22 @ 20:57 by Hannah Alan APRN) Acquired hypothyroidism Anxiety Bipolar depression Constipation Fibromyalgia Gingivitis History of breast cancer Hypothyroidism Insomnia Left temporomandibular joint disorder, unspecified Leukopenia Lupus (systemic lupus erythematosus) Osteoporosis Polyarthralgia Primary insomnia PTSD (post-traumatic stress disorder) Raynaud's disease without gangrene Rheumatoid arthritis Schatzki's ring 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 Parents are in [place], 2 sisters 1 brother. 2014- and his family mistreated her. He left her when she was diagnosed with cancer and took their home. He attempted lawsuit for alimony. Two daughters, pt lives above one daughter. 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 She is a [employer] Substance History: Denies Trauma History: Childhood-father Chetan and in laws. Diagnostics Vital Signs (24Hr): Vital Signs - 24 hr 08/28/22 19:20 08/29/22 08:58 Temperature 97.5 F 97.8 F Pulse Rate 79 78 Blood Pressure 113/56 L 135/69 BMI result Body Mass Index 20.8 Labs 08/27/22 17:16 08/27/22 17:16 Labs: Laboratory Results - last 48 hr 08/27/22 08/27/22 08/29/22 17:16 17:16 08:21 WBC 5.0 RBC 3.97 L Hgb 11.1 L Hct 34.2 L MCV 86.1 MCH 28.0 MCHC 32.5 RDW 13.1 Plt Count 175 MPV 10.5 Immature Gran % (Auto) 0.8 H Neut % (Auto) 58.5 Lymph % (Auto) 28.0 Lares % (Auto) 9.5 Eos % (Auto) 2.6 Baso % (Auto) 0.6 Lymph # (Auto) 1.4 Lares # (Auto) 0.5 Eos # (Auto) 0.1 Baso # (Auto) 0.0 Abs Immat Gran (auto) 0.04 H Absolute Neuts (auto) 2.9 Absolute Nucleated RBC 0.000 Nucleated RBC % (auto) 0.0 Sodium 141 Potassium 4.1 Chloride 111 H Carbon Dioxide 25 Anion Gap 9 L BUN 19 H Creatinine 0.58 Estim Creat Clear Calc 82.5 Estimated GFR > 60 Random Glucose 88 Estimat Average Glucose 105 Hemoglobin A1c % 5.3 Calcium 8.8 Magnesium 1.9 Total Bilirubin 0.3 Direct Bilirubin 0.1 AST 19 ALT 11 Alkaline Phosphatase 55 Total Protein 6.3 L Albumin 3.7 Triglycerides Cholesterol LDL Cholesterol, Calc HDL Cholesterol Vitamin B12 Folate TSH 0.66 Free T4 Ethyl Alcohol < 10 08/29/22 08:21 WBC RBC Hgb Hct MCV MCH MCHC RDW Plt Count MPV Immature Gran % (Auto) Neut % (Auto) Lymph % (Auto) Lares % (Auto) Eos % (Auto) Baso % (Auto) Lymph # (Auto) Lares # (Auto) Eos # (Auto) Baso # (Auto) Abs Immat Gran (auto) Absolute Neuts (auto) Absolute Nucleated RBC Nucleated RBC % (auto) Sodium Potassium Chloride Carbon Dioxide Anion Gap BUN Creatinine Estim Creat Clear Calc Estimated GFR Random Glucose Estimat Average Glucose Hemoglobin A1c % Calcium Magnesium Total Bilirubin Direct Bilirubin AST ALT Alkaline Phosphatase Total Protein Albumin Triglycerides 42 Cholesterol 173 LDL Cholesterol, Calc 96 HDL Cholesterol 69 Vitamin B12 402 Folate 8.5 TSH 0.61 Free T4 0.95 Ethyl Alcohol Meds/Allergies Meds Home Medications Medication Instructions Recorded Confirmed Type albuterol sulfate 90 mcg/actuation 2 puff inhalation Q6H PRN wheezing 08/27/22 08/27/22 History aerosol inhaler (Ventolin HFA) amitriptyline 50 mg tablet 50 mg PO BEDTIME 08/27/22 08/27/22 History bupropion HCl 150 mg 24 hr tablet, 150 mg PO Q OTHER DAY 08/27/22 08/27/22 History extended release clonazepam 1 mg tablet 1 mg PO BID 08/27/22 08/27/22 History gabapentin 300 mg capsule 300 mg PO TID 08/27/22 08/27/22 History meloxicam 15 mg tablet 15 mg PO DAILY 08/27/22 08/27/22 History oxybutynin chloride 10 mg 10 mg PO DAILY 08/27/22 08/27/22 History tablet,extended release 24 hr trazodone 50 mg tablet 50 mg PO BEDTIME PRN insomnia 08/27/22 08/27/22 History Allergies Allergies Allergy/AdvReac Type Severity Reaction Status Date / Time Sulfa (Sulfonamide Allergy Severe Itching Verified 08/12/22 10:48 Antibiotics) codeine [CODEINE] Allergy Intermediate ITCHING Verified 08/12/22 10:48 hydroxychloroquine Allergy Intermediate VOMITING Verified 08/12/22 10:48 [From PLAQUENIL] morphine [MORPHINE] Allergy Intermediate ITCHING Verified 08/12/22 10:48 oxycodone [From PERCOCET] Allergy Intermediate ITCHING Verified 08/12/22 10:48 tramadol [From ULTRAM] Allergy Intermediate ITCHING Verified 08/12/22 10:48 levothyroxine sodium Allergy Unknown rash,throat Verified 08/12/22 10:48 closes bupropion [From Wellbutrin] AdvReac Severe Seizure Verified 08/28/22 09:28 Corticosteroids AdvReac Severe DIFFICULTY Verified 08/12/22 10:48 (Glucocorticoids) BREATHING [CORTICOSTEROIDS (GLUCOCORTICOIDS)] acetaminophen [Percocet] AdvReac Unknown Unknown Verified 08/12/22 10:48 duloxetine AdvReac Unknown Unknown Verified 08/12/22 10:48 Mental Status Exam Mental Status Exam Patient Appearance: Appropriate Patient Orientation: Person, Place, Time and Situation Level of Consciousness: Alert Patient Behavior: Appropriate, Talkative, Cooperative, Anxious and Good Eye Contact Mood Description: Depressed and Anxious Affect Description: Anxious Patient Cognition Impaired: No Ability to Follow Directions: Good Speech Pattern: Spontaneous Speech and Soft-Spoken Memory Description: Intact Hallucinations: Auditory Perceptual Disturbances: Depersonalization and Derealization Thought Process: Rumination Thought Content: positive for Perseveration and positive for Suicidal Ideation Depressive Symptoms: Increased Anxiety Judgement: Fair Assessment & Plan Assessment & Plan (1) PTSD (post-traumatic stress disorder): Status: Acute Code(s): F43.10 - Post-traumatic stress disorder, unspecified (2) Bipolar depression: Status: Acute Code(s): F31.9 - Bipolar disorder, unspecified Plan 57 yo female, presents with reports of recent seizure while on Wellbutrin after several years of compliance, changing to Lexapro and experiencing an increase in depression, SI and physical symptoms. Pt would like to make medication changes and target sleep, anxiety, pain. Review of medications with pt. Plan: Remeron 3.75 mg hs trial MVI 1 tab daily Med changes with close observation, pt describes feeling traumatized by the SE over the past few weeks with changes. Collateral contact Continue remainder of regime Patient educated on: medication risk/benefits and therapeutic strategies Informed Consent: further education needed Reason for continued inpatient stay Substantial Risk for: inability to function and rapid decompensation Statement Statement: I have reviewed the history and physical and performed a pertinent examination on my patient. No changes have occurred unless specified. If the History and Physical was not performed prior to admission, the Hospitalist's service will be consulted for completing the admission physical. Time Spent With Patient Time: Total time managing care of this patient today ____ minutes.
[2022-08-29 20:35] VITALS: BP 124/70; TEMP 36.7
[2022-08-29] MEDS: Amitriptyline HCl 50 MG TABLET PO (22:03)
[2022-08-29] MEDS: Mirtazapine 7.5 MG TABLET 3.75 MG PO (22:04)
[2022-08-29] MEDS: traZODone HCL 50 MG TABLET PO (22:07)
[2022-08-30 06:00] VITALS: BP 119/64; PULSE 71; RESP 16
[2022-08-30] MEDS: Gabapentin 300 MG CAPSULE PO ×3 (08:20→22:16)
[2022-08-30] MEDS: oxyBUTYnin chloride ER 5 MG TAB.ER.24 10 MG PO (08:20)
[2022-08-30] MEDS: clonazePAM 1 MG TABLET PO ×2 (08:20→22:16)
[2022-08-30] MEDS: Multivitamin TABLET 1 TAB PO (08:20)
[2022-08-30] MEDS: Lidocaine 4 % Patch ADH..PATCH 1 PATCH TRANSDERMA (11:08)
[2022-08-30] MEDS: hydrOXYzine HCL 25 MG TABLET PO ×2 (12:15→22:16)
--- NOTE | 2022-08-30 16:36 | HO.PSYCHPN ---
Subjective Subjective Date of Service: 08/30/22 Reason For Visit: Suicidal Ideation Subjective Notes: Conditional Voluntary Healthcare Proxy: No Guardianship: No Medical Problems Affecting Mental Status: No Interim History: Pt reports some improvement in sleep. She continues to hear voices. Discussed interventions. She continues with anxiety. She asks for a new referral as she does not want to return to [facility] at this time due to the conflict she has prior to her admission. Medication Compliance: Yes Side effects from medications: No Attending Groups: Yes Review of Systems Acute medical concerns: No Medical Review of Systems: unchanged Mental Status Exam Mental Status Exam Patient Appearance: Appropriate Patient Orientation: Person, Place, Time and Situation Level of Consciousness: Alert Patient Behavior: Appropriate, Talkative, Cooperative, Anxious and Good Eye Contact Mood Description: Depressed and Anxious Affect Description: Anxious Patient Cognition Impaired: No Ability to Follow Directions: Good Speech Pattern: Spontaneous Speech and Soft-Spoken Memory Description: Intact Hallucinations: Auditory Perceptual Disturbances: Depersonalization and Derealization Thought Process: Rumination Thought Content: positive for Perseveration and positive for Suicidal Ideation Depressive Symptoms: Increased Anxiety Judgement: Fair Diagnostics Vital Signs (24Hr): Vital Signs - 24 hr 08/29/22 20:35 08/30/22 06:00 Temperature 98.0 F Pulse Rate 71 Respiratory Rate 16 Blood Pressure 124/70 119/64 Oxygen Delivery Method Room Air BMI result Body Mass Index 20.8 Labs 08/27/22 17:16 08/27/22 17:16 Labs: Laboratory Results - last 48 hr 08/29/22 08/29/22 08:21 08:21 Estimat Average Glucose 105 Hemoglobin A1c % 5.3 Triglycerides 42 Cholesterol 173 LDL Cholesterol, Calc 96 HDL Cholesterol 69 Vitamin B12 402 Folate 8.5 TSH 0.61 Free T4 0.95 Medications Medications Current Medications Al Hydroxide/Mg Hydroxide (Magnesium Hydrox/Alum Hydrox 30 Ml Oral.Susp) 30 ml PO Q6H PRN PRN Reason: Heartburn/Nausea Albuterol Sulfate (Albuterol Sulfate 90 Mcg 8 Gm Inhaler) 2 puff INHALE Q6H PRN PRN Reason: wheezing Amitriptyline HCl (Amitriptyline Hcl 50 Mg Tablet) 50 mg PO BEDTIME [facility] Last Admin: 08/29/22 22:03 Dose: 50 mg Clonazepam (Clonazepam 1 Mg Tablet) 1 mg PO BID [facility] Last Admin: 08/30/22 08:20 Dose: 1 mg Gabapentin (Gabapentin 300 Mg Capsule) 300 mg PO TID [facility] Last Admin: 08/30/22 14:59 Dose: 300 mg Hydroxyzine HCl (Hydroxyzine Hcl 25 Mg Tablet) 25 mg PO Q6H PRN PRN Reason: Anxiety Last Admin: 08/30/22 12:15 Dose: 25 mg Lidocaine (Lidocaine 4 % Patch Adh..Patch) 1 patch TRANSDERMA DAILY [facility]; Protocol Last Admin: 08/30/22 11:08 Dose: 1 patch Magnesium Hydroxide (Milk Of Magnesia 30 Ml Oral.Susp) 30 ml PO DAILY PRN PRN Reason: Constipation Mirtazapine (Mirtazapine 7.5 Mg Tablet) 3.75 mg PO BEDTIME [facility] Last Admin: 08/29/22 22:04 Dose: 3.75 mg Multivitamins/Vitamin C (Multivitamin Tablet) 1 tab PO DAILY [facility] Last Admin: 08/30/22 08:20 Dose: 1 tab Pt Own (Synthroid ( Levothyroxine) 50 Mcg Tablet) 50 mcg PO DAILY@0600 [facility] Last Admin: 08/30/22 05:59 Dose: 50 mcg Oxybutynin Chloride (Oxybutynin Chloride Er 5 Mg Tab.Er.24) 10 mg PO DAILY [facility] Last Admin: 08/30/22 08:20 Dose: 10 mg Trazodone HCl (Trazodone Hcl 50 Mg Tablet) 50 mg PO BEDTIME PRN PRN Reason: insomnia Last Admin: 08/29/22 22:07 Dose: 50 mg Allergies Allergies Allergy/AdvReac Type Severity Reaction Status Date / Time Sulfa (Sulfonamide Allergy Severe Itching Verified 08/12/22 10:48 Antibiotics) codeine [CODEINE] Allergy Intermediate ITCHING Verified 08/12/22 10:48 hydroxychloroquine Allergy Intermediate VOMITING Verified 08/12/22 10:48 [From PLAQUENIL] morphine [MORPHINE] Allergy Intermediate ITCHING Verified 08/12/22 10:48 oxycodone [From PERCOCET] Allergy Intermediate ITCHING Verified 08/12/22 10:48 tramadol [From ULTRAM] Allergy Intermediate ITCHING Verified 08/12/22 10:48 levothyroxine sodium Allergy Unknown rash,throat Verified 08/12/22 10:48 closes bupropion [From Wellbutrin] AdvReac Severe Seizure Verified 08/28/22 09:28 Corticosteroids AdvReac Severe DIFFICULTY Verified 08/12/22 10:48 (Glucocorticoids) BREATHING [CORTICOSTEROIDS (GLUCOCORTICOIDS)] acetaminophen [Percocet] AdvReac Unknown Unknown Verified 08/12/22 10:48 duloxetine AdvReac Unknown Unknown Verified 08/12/22 10:48 Assessment & Plan Assessment & Plan (1) PTSD (post-traumatic stress disorder): Status: Acute Code(s): F43.10 - Post-traumatic stress disorder, unspecified (2) Bipolar depression: Status: Acute Code(s): F31.9 - Bipolar disorder, unspecified Plan 57 yo female, presents with reports of recent seizure while on Wellbutrin after several years of compliance, changing to Lexapro and experiencing an increase in depression, SI and physical symptoms. Pt would like to make medication changes and target sleep, anxiety, pain. Review of medications with pt. Plan: Remeron 3.75 mg hs trial MVI 1 tab daily Med changes with close observation, pt describes feeling traumatized by the SE over the past few weeks with changes. Collateral contact Continue remainder of regime 08/30/22: Risperdal 0.25 mg HS to address auditory perceptual alterations. Patient educated on: medication risk/benefits Informed Consent: further education needed Reason for continued inpatient stay Substantial Risk for: rapid decompensation Time Spent With Patient Time: Total time managing care of this patient today ____ minutes.
[2022-08-30 22:05] VITALS: BP 131/66; PULSE 79; TEMP 36.6
[2022-08-30] MEDS: Mirtazapine 7.5 MG TABLET 3.75 MG PO (22:14)
[2022-08-30] MEDS: Amitriptyline HCl 50 MG TABLET PO (22:14)
[2022-08-30] MEDS: risperiDONE 0.25 MG TABLET PO (22:16)
[2022-08-30] MEDS: traZODone HCL 50 MG TABLET PO (22:16)
[2022-08-31 07:50] VITALS: BP 138/60; PULSE 73; RESP 16; TEMP 36.2; O2SAT 97
[2022-08-31] MEDS: oxyBUTYnin chloride ER 5 MG TAB.ER.24 10 MG PO (07:52)
[2022-08-31] MEDS: Gabapentin 300 MG CAPSULE PO ×3 (07:52→21:58)
[2022-08-31] MEDS: Multivitamin TABLET 1 TAB PO (07:53)
[2022-08-31] MEDS: clonazePAM 1 MG TABLET PO ×2 (07:53→21:58)
[2022-08-31] MEDS: Lidocaine 4 % Patch ADH..PATCH 1 PATCH TRANSDERMA (07:53)
[2022-08-31] MEDS: hydrOXYzine HCL 25 MG TABLET PO (12:21)
--- NOTE | 2022-08-31 16:29 | HO.PSYCHPN ---
Subjective Subjective Date of Service: 08/31/22 Reason For Visit: Suicidal Ideation Subjective Notes: Conditional Voluntary Healthcare Proxy: No Guardianship: No Medical Problems Affecting Mental Status: No Interim History: Reports poor sleep, racing thoughts, anxiety. States this a.m. she experienced tremors, anxiety, crying and shortness of breath with her anxiety. Discussed medicine changes and rationale for small changes, allowing time given her history of sensitivity. Reports taking HS meds ~10:30 pm and being up at 1am, not due to interruptions or noise, just awakening. Reports some racing of thought, voices have decreased as well. Medication Compliance: Yes Side effects from medications: No Attending Groups: Intermittent Review of Systems Acute medical concerns: No Medical Review of Systems: unchanged Mental Status Exam Mental Status Exam Patient Appearance: Appropriate Patient Orientation: Person, Place, Time and Situation Level of Consciousness: Alert Patient Behavior: Appropriate, Talkative, Cooperative, Anxious and Good Eye Contact Mood Description: Depressed and Anxious Affect Description: Anxious Patient Cognition Impaired: No Ability to Follow Directions: Good Speech Pattern: Spontaneous Speech and Soft-Spoken Memory Description: Intact Hallucinations: Auditory Perceptual Disturbances: Depersonalization and Derealization Thought Process: Rumination Thought Content: positive for Perseveration and positive for Suicidal Ideation Depressive Symptoms: Increased Anxiety Judgement: Fair Diagnostics Vital Signs (24Hr): Vital Signs - 24 hr 08/30/22 22:05 08/31/22 07:50 Temperature 97.8 F 97.1 F Pulse Rate 79 73 Respiratory Rate 16 Blood Pressure 131/66 138/60 Pulse Oximetry 97 Oxygen Delivery Method Room Air Room Air BMI result Body Mass Index 20.8 Labs 08/27/22 17:16 08/27/22 17:16 Medications Medications Current Medications Al Hydroxide/Mg Hydroxide (Magnesium Hydrox/Alum Hydrox 30 Ml Oral.Susp) 30 ml PO Q6H PRN PRN Reason: Heartburn/Nausea Albuterol Sulfate (Albuterol Sulfate 90 Mcg 8 Gm Inhaler) 2 puff INHALE Q6H PRN PRN Reason: wheezing Amitriptyline HCl (Amitriptyline Hcl 50 Mg Tablet) 50 mg PO BEDTIME [facility] Last Admin: 08/30/22 22:14 Dose: 50 mg Clonazepam (Clonazepam 1 Mg Tablet) 1 mg PO BID [facility] Last Admin: 08/31/22 07:53 Dose: 1 mg Gabapentin (Gabapentin 300 Mg Capsule) 300 mg PO TID [facility] Last Admin: 08/31/22 14:20 Dose: 300 mg Hydroxyzine HCl (Hydroxyzine Hcl 25 Mg Tablet) 25 mg PO Q6H PRN PRN Reason: Anxiety Last Admin: 08/31/22 12:21 Dose: 25 mg Lidocaine (Lidocaine 4 % Patch Adh..Patch) 1 patch TRANSDERMA DAILY [facility]; Protocol Last Admin: 08/31/22 07:53 Dose: 1 patch Magnesium Hydroxide (Milk Of Magnesia 30 Ml Oral.Susp) 30 ml PO DAILY PRN PRN Reason: Constipation Mirtazapine (Mirtazapine 7.5 Mg Tablet) 3.75 mg PO BEDTIME [facility] Last Admin: 08/30/22 22:14 Dose: 3.75 mg Multivitamins/Vitamin C (Multivitamin Tablet) 1 tab PO DAILY [facility] Last Admin: 08/31/22 07:53 Dose: 1 tab Pt Own (Synthroid ( Levothyroxine) 50 Mcg Tablet) 50 mcg PO DAILY@0600 [facility] Last Admin: 08/31/22 07:51 Dose: 50 mcg Oxybutynin Chloride (Oxybutynin Chloride Er 5 Mg Tab.Er.24) 10 mg PO DAILY [facility] Last Admin: 08/31/22 07:52 Dose: 10 mg Risperidone (Risperidone 0.25 Mg Tablet) 0.25 mg PO BEDTIME [facility] Last Admin: 08/30/22 22:16 Dose: 0.25 mg Trazodone HCl (Trazodone Hcl 50 Mg Tablet) 50 mg PO BEDTIME PRN PRN Reason: insomnia Last Admin: 08/30/22 22:16 Dose: 50 mg Allergies Allergies Allergy/AdvReac Type Severity Reaction Status Date / Time Sulfa (Sulfonamide Allergy Severe Itching Verified 08/12/22 10:48 Antibiotics) codeine [CODEINE] Allergy Intermediate ITCHING Verified 08/12/22 10:48 hydroxychloroquine Allergy Intermediate VOMITING Verified 08/12/22 10:48 [From PLAQUENIL] morphine [MORPHINE] Allergy Intermediate ITCHING Verified 08/12/22 10:48 oxycodone [From PERCOCET] Allergy Intermediate ITCHING Verified 08/12/22 10:48 tramadol [From ULTRAM] Allergy Intermediate ITCHING Verified 08/12/22 10:48 levothyroxine sodium Allergy Unknown rash,throat Verified 08/12/22 10:48 closes bupropion [From Wellbutrin] AdvReac Severe Seizure Verified 08/28/22 09:28 Corticosteroids AdvReac Severe DIFFICULTY Verified 08/12/22 10:48 (Glucocorticoids) BREATHING [CORTICOSTEROIDS (GLUCOCORTICOIDS)] acetaminophen [Percocet] AdvReac Unknown Unknown Verified 08/12/22 10:48 duloxetine AdvReac Unknown Unknown Verified 08/12/22 10:48 Assessment & Plan Assessment & Plan (1) PTSD (post-traumatic stress disorder): Status: Acute Code(s): F43.10 - Post-traumatic stress disorder, unspecified (2) Bipolar depression: Status: Acute Code(s): F31.9 - Bipolar disorder, unspecified Plan 57 yo female, presents with reports of recent seizure while on Wellbutrin after several years of compliance, changing to Lexapro and experiencing an increase in depression, SI and physical symptoms. Pt would like to make medication changes and target sleep, anxiety, pain. Review of medications with pt. Plan: Remeron 3.75 mg hs trial MVI 1 tab daily Med changes with close observation, pt describes feeling traumatized by the SE over the past few weeks with changes. Collateral contact Continue remainder of regime 08/30/22: Risperdal 0.25 mg HS to address auditory perceptual alterations. 08/31/22: Increase Remeron to 7.5 mg HS Continue Risperdal Trileptal 150 mg bid Patient educated on: medication risk/benefits and therapeutic strategies Informed Consent: further education needed Reason for continued inpatient stay Substantial Risk for: rapid decompensation Time Spent With Patient Time: Total time managing care of this patient today ____ minutes.
[2022-08-31 18:40] VITALS: BP 124/60; PULSE 83; TEMP 36.6
[2022-08-31] MEDS: risperiDONE 0.25 MG TABLET PO (21:58)
[2022-08-31] MEDS: traZODone HCL 50 MG TABLET PO (21:58)
[2022-08-31] MEDS: Mirtazapine 7.5 MG TABLET PO (21:58)
[2022-08-31] MEDS: Amitriptyline HCl 50 MG TABLET PO (21:58)
[2022-09-01 07:00] VITALS: BMI 21.9
[2022-09-01] MEDS: oxyBUTYnin chloride ER 5 MG TAB.ER.24 10 MG PO (07:50)
[2022-09-01] MEDS: clonazePAM 1 MG TABLET PO ×2 (07:50→20:59)
[2022-09-01] MEDS: OXcarbazepine 150 MG TABLET PO ×2 (07:50→21:00)
[2022-09-01] MEDS: Multivitamin TABLET 1 TAB PO (07:50)
[2022-09-01] MEDS: Gabapentin 300 MG CAPSULE PO ×3 (07:50→20:59)
[2022-09-01] MEDS: Lidocaine 4 % Patch ADH..PATCH 1 PATCH TRANSDERMA (07:51)
[2022-09-01 08:00] VITALS: BP 110/63; PULSE 73; RESP 18; TEMP 36.4; O2SAT 97
[2022-09-01] MEDS: hydrOXYzine HCL 25 MG TABLET PO (11:10)
--- NOTE | 2022-09-01 15:04 | P.PNPSI_ITS ---
Subjective Subjective Date of Service: 09/01/22 Reason For Visit: Suicidal Ideation Subjective Notes: Conditional Voluntary Healthcare Proxy: No Guardianship: No Medical Problems Affecting Mental Status: No Interim History: Reports she is feeling much improved-able to sleep. Denies perceptual alterations. Saw one shadow yesterday briefly. Asks for discharge as she reports she has achieved relief. She is wanting to return to her dogs. Discussed remaining in pt for a few more days to make sure regime is tolerated and helpful. She declines. Will plan for discharge on 09/02/22. Medication Compliance: Yes Side effects from medications: No Attending Groups: Intermittent Review of Systems Acute medical concerns: No Medical Review of Systems: unchanged Mental Status Exam Mental Status Exam Patient Appearance: Appropriate Patient Orientation: Person, Place, Time and Situation Level of Consciousness: Alert Patient Behavior: Appropriate, Talkative, Cooperative, Anxious and Good Eye Con tact Mood Description: Depressed and Anxious Affect Description: Anxious Patient Cognition Impaired: No Ability to Follow Directions: Good Speech Pattern: Spontaneous Speech and Soft-Spoken Memory Description: Intact Hallucinations: Auditory Perceptual Disturbances: Depersonalization and Derealization Thought Process: Rumination Thought Content: positive for Perseveration and positive for Suicidal Ideation Depressive Symptoms: Increased Anxiety Judgement: Fair Diagnostics Vital Signs (24Hr): Vital Signs - 24 hr 08/31/22 18:40 09/01/22 08:00 Temperature 97.9 F 97.6 F Pulse Rate 83 73 Respiratory Rate 18 Blood Pressure 124/60 110/63 Pulse Oximetry 97 Oxygen Delivery Method Room Air BMI result Body Mass Index 21.9 Labs 08/27/22 17:16 08/27/22 17:16 Medications Medications Current Medications Al Hydroxide/Mg Hydroxide (Magnesium Hydrox/Alum Hydrox 30 Ml Oral.Susp) 30 ml PO Q6H PRN PRN Reason: Heartburn/Nausea Albuterol Sulfate (Albuterol Sulfate 90 Mcg 8 Gm Inhaler) 2 puff INHALE Q6H PRN PRN Reason: wheezing Amitriptyline HCl (Amitriptyline Hcl 50 Mg Tablet) 50 mg PO BEDTIME [facility] Last Admin: 08/31/22 21:58 Dose: 50 mg Clonazepam (Clonazepam 1 Mg Tablet) 1 mg PO BID [facility] Last Admin: 09/01/22 07:50 Dose: 1 mg Gabapentin (Gabapentin 300 Mg Capsule) 300 mg PO TID [facility] Last Admin: 09/01/22 14:18 Dose: 300 mg Hydroxyzine HCl (Hydroxyzine Hcl 25 Mg Tablet) 25 mg PO Q6H PRN PRN Reason: Anxiety Last Admin: 09/01/22 11:10 Dose: 25 mg Lidocaine (Lidocaine 4 % Patch Adh..Patch) 1 patch TRANSDERMA DAILY [facility]; Protocol Last Admin: 09/01/22 07:51 Dose: 1 patch Magnesium Hydroxide (Milk Of Magnesia 30 Ml Oral.Susp) 30 ml PO DAILY PRN PRN Reason: Constipation Mirtazapine (Mirtazapine 7.5 Mg Tablet) 7.5 mg PO BEDTIME [facility] Last Admin: 08/31/22 21:58 Dose: 7.5 mg Multivitamins/Vitamin C (Multivitamin Tablet) 1 tab PO DAILY [facility] Last Admin: 09/01/22 07:50 Dose: 1 tab Pt Own (Synthroid ( Levothyroxine) 50 Mcg Tablet) 50 mcg PO DAILY@0600 [facility] Last Admin: 09/01/22 07:54 Dose: 50 mcg Oxcarbazepine (Oxcarbazepine 150 Mg Tablet) 150 mg PO BID [facility] Last Admin: 09/01/22 08:48 Dose: Not Given Oxybutynin Chloride (Oxybutynin Chloride Er 5 Mg Tab.Er.24) 10 mg PO DAILY [facility] Last Admin: 09/01/22 07:50 Dose: 10 mg Risperidone (Risperidone 0.25 Mg Tablet) 0.25 mg PO BEDTIME [facility] Last Admin: 08/31/22 21:58 Dose: 0.25 mg Trazodone HCl (Trazodone Hcl 50 Mg Tablet) 50 mg PO BEDTIME PRN PRN Reason: insomnia Last Admin: 08/31/22 21:58 Dose: 50 mg Allergies Allergies Allergy/AdvReac Type Severity Reaction Status Date / Time Sulfa (Sulfonamide Allergy Severe Itching Verified 08/12/22 10:48 Antibiotics) codeine [CODEINE] Allergy Intermediate ITCHING Verified 08/12/22 10:48 hydroxychloroquine Allergy Intermediate VOMITING Verified 08/12/22 10:48 [From PLAQUENIL] morphine [MORPHINE] Allergy Intermediate ITCHING Verified 08/12/22 10:48 oxycodone [From PERCOCET] Allergy Intermediate ITCHING Verified 08/12/22 10:48 tramadol [From ULTRAM] Allergy Intermediate ITCHING Verified 08/12/22 10:48 levothyroxine sodium Allergy Unknown rash,throat Verified 08/12/22 10:48 closes bupropion [From Wellbutrin] AdvReac Severe Seizure Verified 08/28/22 09:28 Corticosteroids AdvReac Severe DIFFICULTY Verified 08/12/22 10:48 (Glucocorticoids) BREATHING [CORTICOSTEROIDS (GLUCOCORTICOIDS)] acetaminophen [Percocet] AdvReac Unknown Unknown Verified 08/12/22 10:48 duloxetine AdvReac Unknown Unknown Verified 08/12/22 10:48 Assessment & Plan Assessment & Plan (1) PTSD (post-traumatic stress disorder): Status: Acute Code(s): F43.10 - Post-traumatic stress disorder, unspecified (2) Bipolar depression: Status: Acute Code(s): F31.9 - Bipolar disorder, unspecified Plan 57 yo female, presents with reports of recent seizure while on Wellbutrin after several years of compliance, changing to Lexapro and experiencing an increase in depression, SI and physical symptoms. Pt would like to make medication changes and target sleep, anxiety, pain. Review of medications with pt. Plan: Remeron 3.75 mg hs trial MVI 1 tab daily Med changes with close observation, pt describes feeling traumatized by the SE over the past few weeks with changes. Collateral contact Continue remainder of regime 08/30/22: Risperdal 0.25 mg HS to address auditory perceptual alterations. 08/31/22: Increase Remeron to 7.5 mg HS Continue Risperdal Trileptal 150 mg bid 09/01/22: Continue current regime Discharge tentative for 09/02/22 if sx remain in appropriate control. Patient educated on: medication risk/benefits and therapeutic strategies Informed Consent: understands and further education needed Reason for continued inpatient stay Substantial Risk for: rapid decompensation Time Spent With Patient Time: Total time managing care of this patient today ____ minutes.
[2022-09-01 17:00] VITALS: BP 125/67; PULSE 98; TEMP 36
[2022-09-01 20:50] VITALS: O2SAT 100
[2022-09-01] MEDS: risperiDONE 0.25 MG TABLET PO (20:59)
[2022-09-01] MEDS: Amitriptyline HCl 50 MG TABLET PO (20:59)
[2022-09-01] MEDS: Mirtazapine 7.5 MG TABLET PO (20:59)
[2022-09-01] MEDS: traZODone HCL 50 MG TABLET PO (21:00)
--- NOTE | 2022-09-02 | ECG_ITS ---
Test Reason : cp Blood Pressure : / mmHG Vent. Rate : 083 BPM Atrial Rate : 083 BPM P-R Int : 158 ms QRS Dur : 076 ms QT Int : 384 ms P-R-T Axes : 074 065 069 degrees QTc Int : 451 ms Normal sinus rhythm Normal ECG When compared with ECG of 28-AUG-2022 14:27, No significant change was found Referred By: Hannah Alan Electronically Signed By:ALISA ADAMS MD
[2022-09-02] MEDS: hydrOXYzine HCL 25 MG TABLET PO (05:28)
[2022-09-02] MEDS: Lidocaine 4 % Patch ADH..PATCH 1 PATCH TRANSDERMA (08:11)
[2022-09-02] MEDS: OXcarbazepine 150 MG TABLET PO (08:12)
[2022-09-02] MEDS: Multivitamin TABLET 1 TAB PO (08:12)
[2022-09-02] MEDS: Gabapentin 300 MG CAPSULE PO (08:12)
[2022-09-02] MEDS: clonazePAM 1 MG TABLET PO (08:13)
[2022-09-02] MEDS: oxyBUTYnin chloride ER 5 MG TAB.ER.24 10 MG PO (08:13)
[2022-09-02 08:25] VITALS: BP 119/59; PULSE 88; RESP 18; TEMP 36.3; O2SAT 100
--- NOTE | 2022-09-02 15:02 | P.DS_ITS ---
DS: Providers Provider Date of Service: 09/02/22 Date of admission: 08/28/22 14:44 Date of discharge: 09/02/22 Primary care physician: Chuck Davila MD Admitting clinician: Hannah Alan Attending physician on admission: Dilshad Gimenez Attending physician on discharge: Dilshad Gimenez Discharging clinician: Hannah Alan DS: Diagnosis Discharge Diagnosis (1) PTSD (post-traumatic stress disorder): Status: Acute (2) Bipolar depression: Status: Acute DS: Medications Discharge Medications Home Medications: Home Medications Medication Instructions Recorded Confirmed albuterol sulfate 90 mcg/actuation 2 puff inhalation Q6H PRN wheezing 08/27/22 08/27/22 aerosol inhaler (Ventolin HFA) amitriptyline 50 mg tablet 50 mg PO BEDTIME 08/27/22 08/27/22 clonazepam 1 mg tablet 1 mg PO BID 08/27/22 08/27/22 gabapentin 300 mg capsule 300 mg PO TID 08/27/22 08/27/22 meloxicam 15 mg tablet 15 mg PO DAILY 08/27/22 08/27/22 oxybutynin chloride 10 mg 10 mg PO DAILY 08/27/22 08/27/22 tablet,extended release 24 hr Previous Rx's Medication Instructions Recorded Synthroid 50 mcg tablet 50 mcg PO DAILY 90 days 09/01/22 (levothyroxine) lidocaine 4 % topical patch 1 patch transdermal DAILY pain #30 09/01/22 (Lidocaine Pain Relief) ea mirtazapine 7.5 mg tablet 7.5 mg PO BEDTIME #30 tabs 09/01/22 multivitamin (Daily-Dottie tablet) 1 tab PO DAILY #30 tabs 09/01/22 oxcarbazepine 150 mg tablet 150 mg PO BID #60 tabs 09/01/22 risperidone 0.25 mg tablet 0.25 mg PO BEDTIME #30 tabs 09/01/22 Mental Status Exam Mental Status Exam Patient Appearance: Appropriate Patient Orientation: Person, Place, Time and Situation Level of Consciousness: Alert Patient Behavior: Appropriate, Talkative, Cooperative and Good Eye Contact Mood Description: Apprehensive Affect Description: Apprehensive Patient Cognition Impaired: No Ability to Follow Directions: Good Speech Pattern: Spontaneous Speech and Soft-Spoken Memory Description: Intact Hallucinations: None Perceptual Disturbances: Depersonalization and Derealization Thought Process: Intact Thought Content: positive for Suicidal Ideation (denies) Judgement: Good Data Data Completed and Pending Completed studies during hospitalization [Text1]: 08/27/22 08/27/22 08/27/22 15:59 15:59 15:59 WBC RBC Hgb Hct MCV MCH MCHC RDW Plt Count MPV Immature Gran % (Auto) Neut % (Auto) Lymph % (Auto) Humphreys % (Auto) Eos % (Auto) Baso % (Auto) Lymph # (Auto) Humphreys # (Auto) Eos # (Auto) Baso # (Auto) Abs Immat Gran (auto) Absolute Neuts (auto) Absolute Nucleated RBC Nucleated RBC % (auto) Sodium Potassium Chloride Carbon Dioxide Anion Gap BUN Creatinine Estim Creat Clear Calc Estimated GFR Random Glucose Estimat Average Glucose Hemoglobin A1c % Calcium Magnesium Total Bilirubin Direct Bilirubin AST ALT Alkaline Phosphatase Total Protein Albumin Triglycerides Cholesterol LDL Cholesterol, Calc HDL Cholesterol Vitamin B12 Folate TSH Free T4 Urine Color Yellow Urine Appearance Clear Urine pH 6.0 Ur Specific Garland 1.015 Urine Protein Negative Urine Glucose (UA) Negative Urine Ketones Negative Urine Blood Negative Urine Nitrite Negative Ur Leukocyte Esterase Small (1+) H Urine RBC 0-2 Urine WBC 0-5 Ur Squamous Epith Cells 0-2 Urine Bacteria None Seen Hyaline Casts 0-2 Urine Opiates Screen Not Detected Urine Fentanyl Screen POSITIVE H Ur Barbiturates Screen Not Detected Ur Phencyclidine Scrn Not Detected Ur Amphetamines Screen Not Detected U Benzodiazepines Scrn POSITIVE H Urine Cocaine Screen Not Detected U Marijuana (THC) Screen Not Detected Ethyl Alcohol COVID-19 (FRANK) Negative COVID-19 Clin Com See Note 08/27/22 08/27/22 08/29/22 17:16 17:16 08:21 WBC 5.0 RBC 3.97 L Hgb 11.1 L Hct 34.2 L MCV 86.1 MCH 28.0 MCHC 32.5 RDW 13.1 Plt Count 175 MPV 10.5 Immature Gran % (Auto) 0.8 H Neut % (Auto) 58.5 Lymph % (Auto) 28.0 Humphreys % (Auto) 9.5 Eos % (Auto) 2.6 Baso % (Auto) 0.6 Lymph # (Auto) 1.4 Humphreys # (Auto) 0.5 Eos # (Auto) 0.1 Baso # (Auto) 0.0 Abs Immat Gran (auto) 0.04 H Absolute Neuts (auto) 2.9 Absolute Nucleated RBC 0.000 Nucleated RBC % (auto) 0.0 Sodium 141 Potassium 4.1 Chloride 111 H Carbon Dioxide 25 Anion Gap 9 L BUN 19 H Creatinine 0.58 Estim Creat Clear Calc 82.5 Estimated GFR > 60 Random Glucose 88 Estimat Average Glucose 105 Hemoglobin A1c % 5.3 Calcium 8.8 Magnesium 1.9 Total Bilirubin 0.3 Direct Bilirubin 0.1 AST 19 ALT 11 Alkaline Phosphatase 55 Total Protein 6.3 L Albumin 3.7 Triglycerides Cholesterol LDL Cholesterol, Calc HDL Cholesterol Vitamin B12 Folate TSH 0.66 Free T4 Urine Color Urine Appearance Urine pH Ur Specific Gar[place] Urine Protein Urine Glucose (UA) Urine Ketones Urine Blood Urine Nitrite Ur Leukocyte Esterase Urine RBC Urine WBC Ur Squamous Epith Cells Urine Bacteria Hyaline Casts Urine Opiates Screen Urine Fentanyl Screen Ur Barbiturates Screen Ur Phencyclidine Scrn Ur Amphetamines Screen U Benzodiazepines Scrn Urine Cocaine Screen U Marijuana (THC) Screen Ethyl Alcohol < 10 COVID-19 (FRANK) COVID-Match 08/29/22 08:21 WBC RBC Hgb Hct MCV MCH MCHC RDW Plt Count MPV Immature Gran % (Auto) Neut % (Auto) Lymph % (Auto) Humphreys % (Auto) Eos % (Auto) Baso % (Auto) Lymph # (Auto) Humphreys # (Auto) Eos # (Auto) Baso # (Auto) Abs Immat Gran (auto) Absolute Neuts (auto) Absolute Nucleated RBC Nucleated RBC % (auto) Sodium Potassium Chloride Carbon Dioxide Anion Gap BUN Creatinine Estim Creat Clear Calc Estimated GFR Random Glucose Estimat Average Glucose Hemoglobin A1c % Calcium Magnesium Total Bilirubin Direct Bilirubin AST ALT Alkaline Phosphatase Total Protein Albumin Triglycerides 42 Cholesterol 173 LDL Cholesterol, Calc 96 HDL Cholesterol 69 Vitamin B12 402 Folate 8.5 TSH 0.61 Free T4 0.95 Urine Color Urine Appearance Urine pH Ur Specific [place] Urine Protein Urine Glucose (UA) Urine Ketones Urine Blood Urine Nitrite Ur Leukocyte Esterase Urine RBC Urine WBC Ur Squamous Epith Cells Urine Bacteria Hyaline Casts Urine Opiates Screen Urine Fentanyl Screen Ur Barbiturates Screen Ur Phencyclidine Scrn Ur Amphetamines Screen U Benzodiazepines Scrn Urine Cocaine Screen U Marijuana (THC) Screen Ethyl Alcohol COVID-19 (FRANK) COVID-19 [employer] 08/27/22 Unknown Urine clean catch - Urine messer top Urine Culture - Final DS: Summary Hospital Course Hospital Course: Admission to adult psychiatry for exacerbation of symptoms of PTSD, Bipolar Depression, SI as a result of an adverse medication reaction. By history, Zara reports medication sensitivity. She reported adverse response to a combination of Lexapro, Wellbutrin, and Trazodone with a reported seizure prior to admission. Low doses of Remeron and Risperdal were initiated with efficacy. Klonopin, Gabapentin, Trileptal and Amitriptyline were continued. Wellbutrin, Lexapro, and Trazodone were stopped. Iris reported feeling improved and without side effects and asked to return to her family. Time spent discussing smoking cessation with patient: 3 to 10 minutes Status at Discharge Functional status at discharge: independent ambulation Overall status at discharge: patient is progressing back to baseline Time Spent with Patient Time attestation: Total time managing care of this patient today ____ minutes. Time spent: Greater than 30 minutes Discharge Plan Discharge Anticipated Discharge Date/Time: 09/02/22 12:59 Patient Disposition: Home, Self-Care Discharge Diagnosis: Bipolar Disorder, Depressed PTSD Referrals: [facility] Therapy [Other] - 09/08/22 11:00 am (With Nando Menjivar - in office) [facility] Medication Management [Other] - 11/02/22 11:00 am (Telehealth with Samara Crowder) [facility] [Other] - 09/02/22 2:00 pm (Kwaku will call you today around 2 or 3pm.) [facility] Counseling Psyche Evaluation Samara Crowder [Other] - 10/03/22 11:00 am (Telehealth) Chuck Davila MD [Primary Care Provider] - 09/14/22 2:45 pm (in office) Discharge Medications: New risperidone 0.25 mg Tablet 0.25 mg PO BEDTIME Qty: 30 0RF mirtazapine 7.5 mg Tablet 7.5 mg PO BEDTIME Qty: 30 0RF multivitamin [Daily-Dottie] Tablet 1 tab PO DAILY Qty: 30 0RF lidocaine [Lidocaine Pain Relief] 4 % Adhesive Patch,Medicated 1 patch transdermal DAILY Qty: 30 0RF Protocol: Apply to: Apply to: lower back meloxicam 15 mg tablet 15 mg PO DAILY 30 Days Qty: 30 0RF Continued oxybutynin chloride 10 mg tablet extended release 24hr 10 mg PO DAILY gabapentin 300 mg capsule 300 mg PO TID clonazepam 1 mg tablet 1 mg PO BID Discontinued trazodone 50 mg tablet 50 mg PO BEDTIME PRN (Reason: insomnia) bupropion HCl 150 mg tablet extended release 24 hr 150 mg PO Q OTHER DAY levothyroxine [Synthroid] 50 mcg tablet 50 mcg PO DAILY 90 Days Qty: 90 4RF No Action albuterol sulfate [Ventolin HFA] 90 mcg/actuation HFA aerosol inhaler 2 puff inhalation Q6H PRN (Reason: for wheezing) Qty: 18 1RF levothyroxine [Synthroid] 50 mcg tablet 50 mcg PO DAILY 90 Days Qty: 90 1RF oxcarbazepine 150 mg tablet 150 mg PO BID Qty: 60 0RF amitriptyline 50 mg tablet 50 mg PO BEDTIME 30 Days Qty: 30 0RF clonazepam 1 mg tablet 1 mg PO BID PRN (Reason: anxiety) 30 Days Qty: 60 0RF bupropion HCl 150 mg tablet extended release 24 hr 150 mg PO Q OTHER DAY Qty: 15 1RF ondansetron 4 mg tablet,disintegrating PO ammonium lactate 12 % cream 1 appl topical BID multivitamin with folic acid [Daily-Dottie (with folic acid)] 400 mcg tablet 1 tab PO DAILY bisacodyl [Laxative (bisacodyl)] 5 mg tablet,delayed release (DR/EC) PO gabapentin 300 mg capsule 300 mg PO BEDTIME 30 Days Qty: 30 0RF simethicone 180 mg capsule 180 mg PO QID 30 Days Qty: 120 3RF Rx Instructions: after meals Discharge Orders: Discharge Order (Routine); Ordered 09/01/22 Ordered By: Hannah Alan Diet: Advance to usual diet Activity on Discharge: As tolerated Stand Alone Forms: Patient Portal Discharge page, Community Support Care Plan Goals: Mood and behavioral stabilization Health Concerns: Mood and behavioral stabilization Plan of Treatment: Follow up with scheduled provider appointments Take medications as directed Call and or return as needed Assessment: Pt interviewed prior to discharge and found to be fully oriented and without any SI/HI. Pt has insight and demonstrates good judgment in terms of wanting to pursue treatment. Pt is not in imminent risk of harm to self or others and has a safety plan that includes presenting to the closest ER or calling 911 if feeling unsafe. Pt has been observed closely by nursing and unit staff throughout admission. Pt has not engaged in any behaviors that suggest dangerousness to self or others and has demonstrated appropriate behaviors and impulse control. Discharge Date/Time: 09/02/22 11:42
== END 2022-09-02 11:42 | disposition home or self-care (01) | DRG 753 ==
LOC: HO.ED 16:16 → HO.PM5 08-28 14:51
PROVIDERS: Physician Assistant Medical; Psychiatry & Neurology Psychiatry; Admitting Provider Psychiatry & Neurology Psychiatry; Emergency Provider Emergency Medicine; PCP Internal Medicine; Visit Provider Clinical Nurse Specialist Psychiatric/Mental Health, Adult
DX: F31.30 Bipolar disorder, current episode depressed, mild or moderate severity, unspecified (principal); R45.851 Suicidal ideations; M32.9 Systemic lupus erythematosus, unspecified; F43.10 Post-traumatic stress disorder, unspecified; Z20.822 Contact with and (suspected) exposure to COVID-19; Z88.2 Allergy status to sulfonamides; Z88.5 Allergy status to narcotic agent; Z88.6 Allergy status to analgesic agent; Z88.8 Allergy status to other drugs, medicaments and biological substances; Z79.890 Hormone replacement therapy; Z79.899 Other long term (current) drug therapy
CPT/HCPCS: 36415; 80048; 80061; 80076; 80307; 81001; 82077; 82607; 82746; 83036; 83735; 84439; 84443; 85025; 87086; 87635; 93005; 99285; S9485

== ENCOUNTER → 2022-09-08 15:06 | Outpatient (BNVA) | payer OTHER, SELFPAY | PROVIDERS: PCP Internal Medicine; Visit Provider Urology | DX: N30.10 Interstitial cystitis (chronic) without hematuria (principal); R35.0 Frequency of micturition; R10.2 Pelvic and perineal pain; Z79.899 Other long term (current) drug therapy | CPT/HCPCS: 52000; 99212 ==

== ENCOUNTER → 2022-09-12 08:26 | Outpatient (BNVA) | payer OTHER, SELFPAY | PROVIDERS: PCP Internal Medicine; Visit Provider Urology | DX: N30.10 Interstitial cystitis (chronic) without hematuria (principal) | CPT/HCPCS: 51700; 51701; J1643 ==

== ENCOUNTER → 2022-09-13 08:30 | Outpatient (BNVA) | payer OTHER, SELFPAY | PROVIDERS: PCP Internal Medicine; Visit Provider Urology | DX: N30.10 Interstitial cystitis (chronic) without hematuria (principal) | CPT/HCPCS: 51700; 51701; J1643 ==

== ENCOUNTER → 2022-09-14 13:03 | Outpatient (BNVA) | payer OTHER, SELFPAY | PROVIDERS: PCP Internal Medicine; Visit Provider Urology | DX: N30.10 Interstitial cystitis (chronic) without hematuria (principal); E03.9 Hypothyroidism, unspecified | CPT/HCPCS: 51700; 51701; J1643 ==

== ENCOUNTER 2022-09-14 14:33 | Outpatient (AMB) | payer OTHER, SELFPAY ==
[2022-09-14 14:45] VITALS: BP 126/90; PULSE 80; O2SAT 96; BMI 21.3
--- NOTE | 2022-09-14 14:45 | MHC.PC.OV ---
Vital Signs 09/14/22 14:45 Height 5 ft 3 in Weight 120 lb 8 oz BMI 21.3 BP 126/90 H Blood Pressure Location Lt brachial Position Sitting Pulse 80 Pulse Source Pulse Oximeter Pulse Oximetry (%) 96 Oxygen Delivery Method Room Air Int[place] [facility] Intake Note: Patient is here for a discharge follow up patient was in [facility] due to depression. First Aid Director Required: No Accompanied by: Self / Same As Patient Allergies Sulfa (Sulfonamide Antibiotics) Allergy (Severe, Verified 06/07/23 12:33) Itching codeine [CODEINE] Allergy (Intermediate, Verified 06/07/23 12:33) ITCHING hydroxychloroquine [From PLAQUENIL] Allergy (Intermediate, Verified 06/07/23 12:33) VOMITING morphine [MORPHINE] Allergy (Intermediate, Verified 06/07/23 12:33) ITCHING oxycodone [From PERCOCET] Allergy (Intermediate, Verified 06/07/23 12:33) ITCHING tramadol [From ULTRAM] Allergy (Intermediate, Verified 06/07/23 12:33) ITCHING Estrogens Allergy (Mild, Verified 06/07/23 12:33) Unknown levothyroxine sodium Allergy (Unknown, Verified 06/07/23 12:33) rash,throat closes bupropion [From Wellbutrin] Adverse Reaction (Severe, Verified 06/07/23 12:33) Seizure Corticosteroids (Glucocorticoids) [CORTICOSTEROIDS (GLUCOCORTICOIDS)] Adverse Reaction (Severe, Verified 06/07/23 12:33) DIFFICULTY BREATHING escitalopram [From Lexapro] Adverse Reaction (Severe, Verified 06/07/23 12:33) seizure meloxicam Adverse Reaction (Severe, Verified 06/07/23 12:33) Gastrointestinal Upset trazodone Adverse Reaction (Severe, Verified 06/07/23 12:33) Seizure tadalafil [From Cialis] Adverse Reaction (Intermediate, Verified 06/07/23 12:33) Nausea and Vomiting acetaminophen [Percocet] Adverse Reaction (Unknown, Verified 06/07/23 12:33) Unknown duloxetine Adverse Reaction (Unknown, Verified 06/07/23 12:33) Unknown Medication List - Last Reconciled 09/14/22 by Chuck Davila MD amitriptyline 50 mg PO BEDTIME 30 days ammonium lactate 12% 1 appl topical BID bisacodyl (Laxative (bisacodyl)) mg PO clonazepam 1 mg PO BID clonazepam 1 mg PO BID PRN 30 days gabapentin 300 mg PO TID gabapentin 300 mg PO BEDTIME 30 days lidocaine 4% (Lidocaine Pain Relief) 1 patch See Protocol transdermal DAILY meloxicam 15 mg PO DAILY 30 days mirtazapine 7.5 mg PO BEDTIME multivitamin (Daily-Dottie tablet) 1 tab PO DAILY multivitamin with folic acid 400 mcg (Daily-Dottie (with folic acid)) 1 tab PO DAILY ondansetron mg PO oxcarbazepine 150 mg PO BID oxybutynin chloride ER 10 mg PO DAILY risperidone 0.25 mg PO BEDTIME Synthroid (levothyroxine) 50 mcg PO DAILY 90 days NS Ventolin HFA 90 mcg/actuation (albuterol sulfate) 2 puffs inhalation Q6H PRN NS Tobacco use date assessed: 09/14/22 H[place] [facility] [place] HPI Details Patient comes in today for her follow up visit She was admitted to the psychiatry unit at [facility] [place]/28/22 to 09/02/22 after she presented to the ER with increasing depression and suicidal and homicidal ideation as well as worsening anxiety and panic attacks She was taken off her Wellbutrin a couple of months ago due to concerns that the medication is increasing her risks of seizures in light of her recent seizure episodes and was switched over to Lexapro - feels her anxiety increasing lately and states that she has been calling psychiatry for help recently but no one is reportedly returning her phone calls Reports experiencing recurrent headaches, nausea, insomnia and recurrent panic attacks since her Rx was switched a couple of months ago Work ups done in the ER were unremarkable and she was eventually admitted for further management She was started additionally on Oxcarbazepine, Risperidone and Mirtazapine and taken off Escitalopram and Trazodone at discharge and she will continue to follow up closely with psychiatry for her mood disorder and psychiatry issues She was also diagnosed with interstitial cystitis by urology when she underwent an office cystoscopy last week and was started on Gabapentin 300 mg TID States that she is currently still experiencing increased anxiety but not to the extent of what she had a few weeks ago Is also still experiencing a lot of suprapubic discomfort and at times, pain, as well as frequent dysuria and urinary frequency She denies any fever or sore throat; still has on and off headaches and dizziness and reports feeling fatigued all the time She denies any exertional chest pains; has some HARTMAN but this is mostly due to her physical deconditioning (+) on and off nausea but no vomiting and no change in bowel habits recently [facility] Medical History Estrogen receptor positive status [ER+] Ductal carcinoma in situ (DCIS) of left breast Autoimmune disorder PTSD (post-traumatic stress disorder) COVID-19 Insomnia Bilateral knee pain Fibromyalgia Schatzki's ring Rheumatoid arthritis Small bowel motility disorder Vitamin D deficiency Hypothyroidism Osteoporosis Raynaud's disease without gangrene Lupus (systemic lupus erythematosus) Seropositive rheumatoid arthritis Bipolar depression Anxiety Primary insomnia History of breast cancer Constipation Polyarthralgia Leukopenia Acquired hypothyroidism Systemic lupus erythematosus Gingivitis Left temporomandibular joint disorder, unspecified Surgical History History of esophagogastroduodenoscopy (EGD) Hx of colonoscopy History of bilateral mastectomy History of total abdominal hysterectomy and bilateral salpingo-oophorectomy History of cholecystectomy History of tubal ligation History of section Family History Father Hypertension Prostate cancer Mother Breast cancer Hypertension Asthma Maternal Aunt Breast cancer Maternal Grandmother Colon cancer Maternal Aunt Breast cancer Social History Household Members: Children Household Members Other:: 2 daughters Housing: House Do you presently have visiting nurse or other home services: No Alcohol intake: current Alcohol intake frequency: does not drink Patient Tobacco Use Status: Never used Tobacco e-Cigarette/Vaping Use: Never Used Second Hand Smoke Exposure: No Advance Directives Date on File: 08/12/20 service: No Current occupational status: disabled Sexual orientation: Straight/Heterosexual Cognitive needs: Yes (cane) Hearing needs: No Vision needs: Yes (Glasses) Female Reproductive History Menstrual Age of Menarche: 10 Questionnaire PHQ-9 Over the last 2 weeks, how often have you been bothered by any of the following problems? 1. Little interest or pleasure in doing things: several days 2. Feeling down, depressed, or hopeless: several days 3. Trouble falling or staying asleep, or sleeping too much: several days 4. Feeling tired or having little energy: several days 5. Poor appetite or overeating: several days 6. Feeling bad about yourself - or that you are a failure or have let yourself or your family down: several days 7. Trouble concentrating on things, such as reading the newspaper or watching television: not at all 8. Moving or speaking so slowly that other people could have noticed. Or the opposite - being so fidgety or restless that you have been moving around a lot more than usual: not at all 9. Thoughts that you would be better off or of hurting yourself in some way: not at all Total score: 6 Depression Screening Interpretation: Positive Depression Screening Follow-up: Existing condition and In treatment 93795 - PHQ-9 Billing: Yes Source: Developed by Drs. Som Barrera, Stephy Taylor, Michele Li and colleagues, with an educational coleman from [employer]. Thrive Questionnaire Date Thrive assessed: 09/14/22 I am a: Patient What is your living situation today?: I have a steady place to live Within the past 12 months, did the food you bought not last and you didn't have the money to get more?: Never true Within the past 12 months, did you worry whether your food would run out before you got money to buy more?: Never true Do you have trouble paying for medicines?: No Do you have trouble getting transportation to medical appointments?: No Do you have trouble paying your heating and electricity bill?: No Do you have trouble taking care of your child, family member or friend?: No Do you have trouble with day-to-day activities such as bathing, preparing meals, shopping, managing finances, etc.?: No Are you currently unemployed and looking for a job?: No Are you interested in more education?: No Currently or been in a relationship where the following occur: no concerns reported AUDIT C Alcohol Use Questionnaire (AUDIT-C) 1. How often do you have a drink containing alcohol?: Never 3. How often do you have six or more drinks on one occasion?: Never Total Score: 0 Score Reviewed/Action Taken: Yes MOSHE-7 AMB Questionnaire MOSHE-7 Date MOSHE - 7 assessed: 09/14/22 Feeling nervous, anxious, or on edge: 1 = Several days Not being able to stop or control worryin = Several days Worrying too much about different things: 1 = Several days Trouble relaxin = Several days Being so restless that it is hard to sit still: 1 = Several days Becoming easily annoyed or irritable: 1 = Several days Feeling afraid as if something awful might happen: 1 = Several days Total MOSHE-7 score (0-4 normal; 5-9 mild; 10-14 moderate; 15-21 severe): 7 Source: Developed by Drs. Som Barrera, Stephy Taylor, Michele Li and colleagues, with an educational coleman from [employer]. Review of Systems Const Denies chills, Reports fatigue (chronic), Denies fever(s), Reports headache(s) (on and off) and Reports lethargy ENT Denies dysphagia, Reports dizziness (on and off), Reports headache(s) (on and off), Denies odynophagia, Denies sinus pain and Denies sore throat Card Denies chest pain, Denies palpitations and Reports dyspnea on exertion (mild, chronic) Resp Denies chest congestion, Denies cough and Reports dyspnea on exertion (mild, chronic) GI Reports abdominal pain (over the suprapubic area - see HPI), Reports constipation (Rx help), Denies dysphagia, Denies heartburn, Denies diarrhea, Reports nausea (on and off), Denies odynophagia and Denies vomiting Details: (+) suprapubic discomfort Denies hematuria, Reports nocturia, Reports dysuria, Reports urinary hesitancy and Reports urinary urgency Musc Reports back pain (over the lower back, on and off) Neuro Reports dizziness (on and off) and Reports headache(s) (on and off) Endo Reports fatigue (chronic) and Denies palpitations Physical exam (Primary Care) Vital Signs: Last Vital Signs Pulse 80 09/14/22 14:45 BP 126/90 H 09/14/22 14:45 Pulse Ox 96 09/14/22 14:45 Oxygen Delivery Method Room Air 09/14/22 14:45 BMI result Body Mass Index 21.3 Tobacco/Smoking Status: Tobacco use Status Tobacco use date assessed 09/14/22 09/14/22 14:56 Patient Tobacco Use Status Never used Tobacco 09/14/22 14:56 e-Cigarette/Vaping Use Never Used 09/14/22 14:56 PHQ-9: PHQ-9 Score PHQ-9: Total score 6 09/15/22 09:30 Depression Screening Interpretation: Positive Depression Screening Follow-up: Existing condition and In treatment Thrive Assessment: Date of Thrive Assessment Date Thrive assessed 09/14/22 09/14/22 14:56 Currently or been in a relationship where the following occur: no concerns reported Const General: no acute distress, alert and tired appearing HENMT Throat: Yes posterior oropharynx normal and Yes tonsils normal Neck Neck: Yes no lymphadenopathy and Yes supple Resp Auscultation: clear to auscultation bilaterally, no rales and no wheezes Cardio Rate: regular rate Rhythm: regular rhythm Heart sounds: no murmurs GI Palpation (GI): Soft to palpation, Tenderness to palpation present (GI) suprapubicly, no guarding, not rigid, no hernias and no masses Back/Spine/Pelvis Thoracic/Lumbar Spine: paraspinal muscle tenderness bilaterally in the mid lumbar and in the lower lumbar Skin Rashes: no rashes Extrem General: Yes no clubbing, cyanosis or edema Assessment and Plan Assessment & Plan (1) Interstitial cystitis: Code(s): N30.10 - Interstitial cystitis (chronic) without hematuria Plan: Urinary bladder US done a few months ago revealed (+) posterior wall trabeculations but no generalized bladder wall thickening and no masses or calculi noted Continue Gabapentin 300 mg TID Follow up with urology as scheduled (2) Fibromyalgia: Code(s): M79.7 - Fibromyalgia Plan: Was seeing Dr. Castrejon [facility] [place] previously Has been advised that although she tested positive for DANA, all other workups were negative and she has no clinical evidence of active disease and there is no indication for treatment for lupus or RA at the time She was seen by rheumatology here at [facility] more recently last year and was advised of the same - that she has no evidence of active inflammatory joint disease and there is no indication for therapy Lumbar spine x-rays done last year came back normal Continue Lidocaine patches PRN and Gabapentin 300 mg TID Patient is again encouraged to stay active and exercise regularly (as tolerated) to help manage her fibromyalgia symptoms (3) Polyarthralgia: Code(s): M25.50 - Pain in unspecified joint Plan: Continue Orphenadrine ER 100 mg BID, Diclofenac sodium 1% gel topically PRN Follow up with [facility] as scheduled She did not respond much to physical therapy previously and she was referred instead to physiatry at [facility] at her last visit for further evaluation and management (4) Dystonia: Code(s): G24.9 - Dystonia, unspecified Plan: Was being scheduled for botox injection by neurology sometime in mid-January 2022 but this was later postponed and has yet to be rescheduled Follow up with neurology as scheduled (5) Headache: Code(s): R51.9 - Headache, unspecified Qualifiers: Headache chronicity pattern: episodic headache Headache type: unspecified Intractability: not intractable Qualified Code(s): R51.9 - Headache, unspecified Plan: Was also seen by neurology a few months ago for this - was diagnosed with possible tension headaches and started on Amitriptyline 50 mg Q HS with (+) significant improvement of symptoms Follow up with neurology as scheduled (6) Acquired hypothyroidism: Code(s): E03.9 - Hypothyroidism, unspecified Plan: Continue Synthroid 50 mcg QD Follow up with endocrinology as scheduled (7) GERD (gastroesophageal reflux disease): Code(s): K21.9 - Gastro-esophageal reflux disease without esophagitis Qualifiers: Esophagitis presence: without esophagitis Qualified Code(s): K21.9 - Gastro-esophageal reflux disease without esophagitis Plan: Dietary restrictions reinforced Continue Dexilant 60 mg QD (8) Anemia: Code(s): D64.9 - Anemia, unspecified Qualifiers: Anemia type: unspecified type Qualified Code(s): D64.9 - Anemia, unspecified Plan: Continue Feosol 65 mg every other day - gets very constipated when she takes Rx daily Will continue to monitor her CBC regularly (9) Osteoporosis: Code(s): M81.0 - Age-related osteoporosis without current pathological fracture Qualifiers: Osteoporosis type: unspecified Presence of current pathological fracture: without current pathological fracture Qualified Code(s): M81.0 - Age-related osteoporosis without current pathological fracture Plan: Continue daily oral calcium and Vitamin D supplements Fall precautions reinforced Follow up with endocrinology as scheduled (10) Chronic idiopathic constipation: Code(s): K59.04 - Chronic idiopathic constipation Plan: Continue Bisacodyl PRN and Colace 100 mg QD PRN Encouraged increased oral fluids and disetary fiber Follow up with GI as scheduled (11) Vitamin D deficiency: Code(s): E55.9 - Vitamin D deficiency, unspecified Plan: Continue Vitamin D2 12445 units once a week (12) Insomnia: Code(s): G47.00 - Insomnia, unspecified Qualifiers: Insomnia type: unspecified Qualified Code(s): G47.00 - Insomnia, unspecified Plan: Sleep hygiene reinforced Continue Trazodone 50 mg Q HS (13) Anxiety: Code(s): F41.9 - Anxiety disorder, unspecified Plan: Continue Clonazepam 1 mg BID PRN (14) PTSD (post-traumatic stress disorder): Code(s): F43.10 - Post-traumatic stress disorder, unspecified Plan: Continue Bupropion ER 150 mg QOD Follow up with psychiatry as scheduled (15) Bipolar depression: Code(s): F31.9 - Bipolar disorder, unspecified Plan: Continue Bupropion ER 150 mg QOD, Oxcarbazepine 150 mg BID, Risperidone 0.25 mg Q HS and Mirtazapine 7.5 mg Q HS Follow-up with Psychiatry as scheduled Plan Follow up in 3 months Coding Level of Care Code Est Pt Level 4 (80468) Diagnoses Interstitial cystitis N30.10 Fibromyalgia M79.7 Polyarthralgia M25.50 Dystonia G24.9 Nonintractable episodic headache, unspecified headache type R51.9 Headache chronicity pattern: episodic headache Headache type: unspecified Intractability: not intractable Acquired hypothyroidism E03.9 Gastroesophageal reflux disease without esophagitis K21.9 Esophagitis presence: without esophagitis Anemia, unspecified type D64.9 Anemia type: unspecified type Osteoporosis without current pathological fracture, unspecified osteoporosis type M81.0 Osteoporosis type: unspecified Presence of current pathological fracture: without current pathological fracture Chronic idiopathic constipation K59.04 Vitamin D deficiency E55.9 Insomnia, unspecified type G47.00 Insomnia type: unspecified Anxiety F41.9 PTSD (post-traumatic stress disorder) F43.10 Bipolar depression F31.9
== END 2022-09-14 15:54 | disposition home or self-care (01) ==
LOC: HO.HMGH 14:33
PROVIDERS: PCP Internal Medicine; Visit Provider Internal Medicine
DX: N30.10 Interstitial cystitis (chronic) without hematuria (principal); F31.9 Bipolar disorder, unspecified; M79.7 Fibromyalgia; M25.50 Pain in unspecified joint; G24.9 Dystonia, unspecified; R51.9 Headache, unspecified; E03.9 Hypothyroidism, unspecified; K21.9 Gastro-esophageal reflux disease without esophagitis; D64.9 Anemia, unspecified; M81.0 Age-related osteoporosis without current pathological fracture; K59.04 Chronic idiopathic constipation; E55.9 Vitamin D deficiency, unspecified
CPT/HCPCS: 99214

== ENCOUNTER → 2022-09-15 08:33 | Outpatient (BNVA) | payer OTHER, SELFPAY | PROVIDERS: PCP Internal Medicine; Visit Provider Urology | DX: N30.10 Interstitial cystitis (chronic) without hematuria (principal); E03.9 Hypothyroidism, unspecified | CPT/HCPCS: 51700; 51701; J1643 ==

== ENCOUNTER → 2022-09-16 08:38 | Outpatient (BNVA) | payer OTHER, SELFPAY | PROVIDERS: PCP Internal Medicine; Visit Provider Urology | DX: N30.10 Interstitial cystitis (chronic) without hematuria (principal); E03.9 Hypothyroidism, unspecified | CPT/HCPCS: 51700; 51701; J1643 ==

== ENCOUNTER → 2022-09-19 12:50 | Outpatient (BNVA) | payer OTHER, SELFPAY | PROVIDERS: PCP Internal Medicine; Visit Provider Urology | DX: N30.10 Interstitial cystitis (chronic) without hematuria (principal) | CPT/HCPCS: 51700; 51701; J1643; J1885 ==

== ENCOUNTER → 2022-09-20 09:03 | Outpatient (BNVA) | payer OTHER, SELFPAY | PROVIDERS: PCP Internal Medicine; Visit Provider Urology | DX: N30.10 Interstitial cystitis (chronic) without hematuria (principal); R35.0 Frequency of micturition; N30.90 Cystitis, unspecified without hematuria; E03.9 Hypothyroidism, unspecified | CPT/HCPCS: 51700; 51701; J1643 ==

== ENCOUNTER → 2022-09-27 12:59 | Outpatient (BNVA) | payer OTHER, SELFPAY | PROVIDERS: PCP Internal Medicine; Visit Provider Urology | DX: N30.10 Interstitial cystitis (chronic) without hematuria (principal) | CPT/HCPCS: 51700; 51701; J1643; J1885 ==

== ENCOUNTER → 2022-10-03 10:40 | Outpatient (BNVA) | payer OTHER, SELFPAY | PROVIDERS: PCP Internal Medicine; Visit Provider Urology | DX: N30.10 Interstitial cystitis (chronic) without hematuria (principal); E03.9 Hypothyroidism, unspecified | CPT/HCPCS: 51700; 51701; J1643; J1885 ==

== ENCOUNTER → 2022-10-07 12:27 | Outpatient (BNVA) | payer OTHER, SELFPAY | PROVIDERS: PCP Internal Medicine; Visit Provider Nurse Practitioner | DX: K21.9 Gastro-esophageal reflux disease without esophagitis (principal); K59.04 Chronic idiopathic constipation; R19.7 Diarrhea, unspecified | CPT/HCPCS: 99212 ==

== ENCOUNTER 2022-11-24 13:04 | Outpatient (AMB) | payer OTHER, SELFPAY ==
--- NOTE | 2022-11-24 14:19 | AM.OFFWIN_ITS ---
Intake Vital Signs 11/24/22 14:27 BP 120/72 Blood Pressure Location Lt brachial Position Sitting Pulse 80 Pulse Source Pulse Oximeter Pulse Oximetry (%) 100 Oxygen Delivery Method Room Air Intake Visit Reasons: EP RT hand pain (lobby) Intake Note: Patient here for right hand pain that radiates to the neck, she is having a hard time using that hand and closing it. no known injury. Patient Tobacco Use Status: Never used Tobacco Allergies Sulfa (Sulfonamide Antibiotics) Allergy (Severe, Verified 11/24/22 14:26) Itching codeine [CODEINE] Allergy (Intermediate, Verified 11/24/22 14:26) ITCHING hydroxychloroquine [From PLAQUENIL] Allergy (Intermediate, Verified 11/24/22 14:26) VOMITING morphine [MORPHINE] Allergy (Intermediate, Verified 11/24/22 14:26) ITCHING oxycodone [From PERCOCET] Allergy (Intermediate, Verified 11/24/22 14:26) ITCHING tramadol [From ULTRAM] Allergy (Intermediate, Verified 11/24/22 14:26) ITCHING levothyroxine sodium Allergy (Unknown, Verified 11/24/22 14:26) rash,throat closes bupropion [From Wellbutrin] Adverse Reaction (Severe, Verified 11/24/22 14:26) Seizure Corticosteroids (Glucocorticoids) [CORTICOSTEROIDS (GLUCOCORTICOIDS)] Adverse Reaction (Severe, Verified 11/24/22 14:26) DIFFICULTY BREATHING escitalopram [From Lexapro] Adverse Reaction (Severe, Verified 11/24/22 14:26) seizure trazodone Adverse Reaction (Severe, Verified 11/24/22 14:26) Seizure acetaminophen [Percocet] Adverse Reaction (Unknown, Verified 11/24/22 14:26) Unknown duloxetine Adverse Reaction (Unknown, Verified 11/24/22 14:26) Unknown Do you need a note to return to daycare/school/sports/work: No HPI HPI Comments History of Present Illness Details 57-year-old female history fibromyalgia rheumatoid arthritis that presents for right arm pain. She states that for the past week his experience right hand arm in shoulder pain radiating up to the neck. States this feels like her normal rheumatoid arthritis flare ups. She currently does not have a bread molder a social is left the practice. She denies any fevers chills trauma to the area with sinuses 2 units [facility] Medical History Acquired hypothyroidism Anxiety Autoimmune disorder Bipolar depression Constipation Ductal carcinoma in situ (DCIS) of left breast Estrogen receptor positive status [ER+] Fibromyalgia Gingivitis History of breast cancer Hypothyroidism Insomnia Left temporomandibular joint disorder, unspecified Leukopenia Lupus (systemic lupus erythematosus) Osteoporosis Polyarthralgia Primary insomnia PTSD (post-traumatic stress disorder) Raynaud's disease without gangrene Rheumatoid arthritis Schatzki's ring 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 Systemic lupus erythematosus Vitamin D deficiency Surgical History History of bilateral mastectomy History of section History of cholecystectomy History of esophagogastroduodenoscopy (EGD) History of total abdominal hysterectomy and bilateral salpingo-oophorectomy History of tubal ligation Hx of colonoscopy Family History Father Hypertension Prostate cancer Mother Breast cancer Hypertension Asthma Maternal Aunt Breast cancer Maternal Grandmother Colon cancer Maternal Aunt Breast cancer Social History Household Members: Children Household Members Other:: 2 daughters Housing: House Do you presently have visiting nurse or other home services: No Alcohol intake: never Patient Tobacco Use Status: Never used Tobacco e-Cigarette/Vaping Use: Never Used Second Hand Smoke Exposure: No Advance Directives Date on File: 08/12/20 service: No Current occupational status: disabled Sexual orientation: Straight/Heterosexual Cognitive needs: Yes (cane) Hearing needs: No Vision needs: Yes (Glasses) Female Reproductive History Menstrual Age of Menarche: 10 Review of Systems Musc Reports arthralgias and Reports joint swelling Physical Exam Vital Signs: Last Vital Signs Pulse 80 11/24/22 14:27 BP 120/72 11/24/22 14:27 Pulse Ox 100 11/24/22 14:27 Oxygen Delivery Method Room Air 11/24/22 14:27 Const General: cooperative, healthy appearing, comfortable, no acute distress and alert Extrem Other: TTP with palpation to the right wrist forearm and shoulder. Mild pain with Range of motion pulses sensation intact. Office Meds ketorolac Performing Provider: EMIR Garcia Administered by: Radha Angelo RN on 11/24/22 15:17 Dose Route Admin Location Lot Number Expiration Date NDC [employer] Professor 30 mg IM left gluteal [id number] 08/30/23 77063-557-90 [employer] Assessment & Plan Assessment & Plan (1) Rheumatoid arthritis: Code(s): M06.9 - Rheumatoid arthritis, unspecified Qualifiers: Rheumatoid arthritis location: unspecified site Rheumatoid factor presence: with rheumatoid factor Qualified Code(s): M05.9 - Rheumatoid arthritis with rheumatoid factor, unspecified Plan 57-year-old female history fibromyalgia rheumatoid arthritis that presents for right arm pain. VSS. On exam patient presents alert and oriented no acute distress. Exam was notable tenderness to palpation on the right full on wrist and shoulder. Mild pain with range of motion. No overlying erythema. No concerning features for septic joint arthritis. Patient's symptoms consistent with past rheumatoid arthritis flares. Patient currently does not have a bread molder. Patient st ates previously Toradol a new reflects works she has significant allergies. Will provide prescription as well as referral for rheumatology. Discharge instructions, follow up and treatment are discussed with patient in my usual fashion. Alternatives in treatment are also discussed. The patient will return for worsening symptoms or as needed. Advised that any labs/imaging ordered will be followed up on and contact made if further treatment needed. Counseled that patient's condition may require further evaluation and/or treatment. Symptoms of concern for worsening disorder discussed in detail in my customary manner. Patient does verbalize understanding of the plan, there are no apparent barriers to communication. The patient is given the opportunity to ask questions and have them answered to his/her satisfaction Orders: Orders AMB Ketorolac Injection Today M06.9 - Rheumatoid arthritis, unspecified Referrals Rheumatology Referral M06.9 - Rheumatoid arthritis, unspecified Medications: New ketorolac 20 mg (2 x 10 mg) PO ONCE PRN 8 tabs 0RF pain 4 days orphenadrine citrate ER 100 mg PO BID 8 tabs 0RF 4 days Discontinued Synthroid 50 mcg PO DAILY 90 days 90 tabs 4RF NS E03.9 - Hypothyroidism, unspecified Patient Instructions: You were seen and evaluated in the walk-in clinic for your pain. You treated with Toradol. A short course of Toradol and Norflex as prescribed he states directed been given a referral for Rheumatology please establish care dispensing worsening symptoms such as fever worsening pain redness or swelling please present to the emergency Coding Level of Care Code Est Pt Level 4 (56444) Diagnoses Rheumatoid arthritis M05.9 Rheumatoid arthritis location: unspecified site Rheumatoid factor presence: with rheumatoid factor
[2022-11-24 14:27] VITALS: BP 120/72; PULSE 80; O2SAT 100
== END 2022-11-24 15:24 | disposition home or self-care (01) ==
PROVIDERS: PCP Internal Medicine; Visit Provider Physician Assistant
DX: M06.9 Rheumatoid arthritis, unspecified (principal); M05.9 Rheumatoid arthritis with rheumatoid factor, unspecified
CPT/HCPCS: 96372; 99214; J1885

== ENCOUNTER 2022-11-29 11:58 | Outpatient (AMB) | payer OTHER, SELFPAY ==
[2022-11-29 12:06] VITALS: BP 108/72; PULSE 77; TEMP 36.9; O2SAT 99; BMI 22.0
--- NOTE | 2022-11-29 12:06 | A.OFFVIS_ITS ---
Intake Vital Signs 11/29/22 12:06 Height 5 ft 3 in Weight 124 lb 1.924 oz BMI 22.0 BP 108/72 Blood Pressure Location Lt brachial Position Sitting Pulse 77 Pulse Source Pulse Oximeter Temp 98.4 F Temp Source Skin Pulse Oximetry (%) 99 Intake Visit Reasons: RA Electric Deicer Inspector Required: Yes Electric Deicer Inspector Language: Bolting Machine Operator Name: Daughter Accompanied by: Daughter Allergies Sulfa (Sulfonamide Antibiotics) Allergy (Severe, Verified 11/29/22 12:10) Itching codeine [CODEINE] Allergy (Intermediate, Verified 11/29/22 12:10) ITCHING hydroxychloroquine [From PLAQUENIL] Allergy (Intermediate, Verified 11/29/22 12:10) VOMITING morphine [MORPHINE] Allergy (Intermediate, Verified 11/29/22 12:10) ITCHING oxycodone [From PERCOCET] Allergy (Intermediate, Verified 11/29/22 12:10) ITCHING tramadol [From ULTRAM] Allergy (Intermediate, Verified 11/29/22 12:10) ITCHING levothyroxine sodium Allergy (Unknown, Verified 11/29/22 12:10) rash,throat closes bupropion [From Wellbutrin] Adverse Reaction (Severe, Verified 11/29/22 12:10) Seizure Corticosteroids (Glucocorticoids) [CORTICOSTEROIDS (GLUCOCORTICOIDS)] Adverse Reaction (Severe, Verified 11/29/22 12:10) DIFFICULTY BREATHING escitalopram [From Lexapro] Adverse Reaction (Severe, Verified 11/29/22 12:10) seizure meloxicam Adverse Reaction (Severe, Verified 11/29/22 12:10) Gastrointestinal Upset trazodone Adverse Reaction (Severe, Verified 11/29/22 12:10) Seizure acetaminophen [Percocet] Adverse Reaction (Unknown, Verified 11/29/22 12:10) Unknown duloxetine Adverse Reaction (Unknown, Verified 11/29/22 12:10) Unknown Medication List - Last Reconciled 11/29/22 by Candido Izquierdo MD amitriptyline 50 mg PO BEDTIME 30 days ammonium lactate 12% 1 appl topical BID bisacodyl (Laxative (bisacodyl)) mg PO bupropion HCl 150 mg PO Q OTHER DAY clonazepam 1 mg PO BID gabapentin 300 mg PO TID lidocaine 5% 0 patches topical multivitamin (Daily-Dottie tablet) 1 tab PO DAILY multivitamin with folic acid 400 mcg (Daily-Dottie (with folic acid)) 1 tab PO DAILY onabotulinumtoxinA (Botox) 200 units IM ondansetron mg PO orphenadrine citrate ER 100 mg PO BID 4 days oxcarbazepine 150 mg PO BID oxybutynin chloride ER 10 mg PO DAILY phenazopyridine (Pyridium) 100 mg PO Q8H PRN risperidone 0.25 mg PO BEDTIME simethicone 180 mg PO QID 30 days Synthroid (levothyroxine) 50 mcg PO DAILY 90 days NS trazodone 50 mg PO BEDTIME PRN Ventolin HFA 90 mcg/actuation (albuterol sulfate) 2 puffs inhalation Q6H PRN NS HPI HPI Comments History of Present Illness Details The patient returns with her daughter for evaluation of her fibromyalgi a and positive serologies for DANA and anti LYNNETTE. The daughter translates for us and adds additional history. The patient has in the past been treated for inflammatory arthritis with multiple regimens; they did not really help that much and seemed to cause side effects. Presently she is taking treatment for fibromyalgia. She is also on medications for her anxiety and depression. She was hospitalized in August for depression. She did visit an urgent care area recently. The gave her a Toradol shot and some Norflex and that seemed to help her pains. Mostly she complaining of pain in the neck, right shoulder, right hand and right wrist. This is on top of her otherwise widespread pains involving all muscles and bones in the body. She is getting occasional bruising which she has noted before. Her antidepressant regimen was recently changed. She says she is now on on bupropion, clonazepam, oxcarbazepine, risperidone, amitriptyline, and trazodone. She is on oxybutynin for urinary symptoms. She was on an antibiotic for and suppression of UTI but she stopped that. She takes simethicone and odansetron for stomach upset. She gets occasional Botox injection for headaches. For the fibromyalgia she is taking gabapentin 300 mg 3 times a day and uses lidocaine patches. [facility] Medical History (Updated 11/29/22 @ 12:17 by Candido Izquierdo MD) Acquired hypothyroidism Anxiety Autoimmune disorder Bilateral knee pain Bipolar depression Constipation Ductal carcinoma in situ (DCIS) of left breast Estrogen receptor positive status [ER+] Fibromyalgia Gingivitis History of breast cancer Hypothyroidism Insomnia Left temporomandibular joint disorder, unspecified Leukopenia Lupus (systemic lupus erythematosus) Osteoporosis Polyarthralgia Primary insomnia PTSD (post-traumatic stress disorder) Raynaud's disease without gangrene Rheumatoid arthritis Schatzki's ring 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 Systemic lupus erythematosus Vitamin D deficiency Surgical History History of bilateral mastectomy History of section History of cholecystectomy History of esophagogastroduodenoscopy (EGD) History of total abdominal hysterectomy and bilateral salpingo-oophorectomy History of tubal ligation Hx of colonoscopy Family History Father Hypertension Prostate cancer Mother Breast cancer Hypertension Asthma Maternal Aunt Breast cancer Maternal Grandmother Colon cancer Maternal Aunt Breast cancer Social History Household Members: Children Household Members Other:: 2 daughters Housing: House Do you presently have visiting nurse or other home services: No Alcohol intake: never Patient Tobacco Use Status: Never used Tobacco e-Cigarette/Vaping Use: Never Used Second Hand Smoke Exposure: No Advance Directives Date on File: 08/12/20 service: No Current occupational status: disabled Sexual orientation: Straight/Heterosexual Cognitive needs: Yes (cane) Hearing needs: No Vision needs: Yes (Glasses) Female Reproductive History Menstrual Age of Menarche: 10 Review of Systems Const Details: Fatigue and low energy. She does not sound like she does most physical activity at home. Negative for appetite change, weight change, fever, chills, malaise Card Details: Negative chest pain, edema and syncope Resp Details: Negative for SOB, cough and wheezing GI Details: Negative indigestion/heartburn, nausea, abdominal pain, bowel changes, diarrhea, constipation and bloody stool. Neuro Details: Intermittent tingling in the hands and feet. Negative for epilepsy, palsy, stroke, changes in speech and weakness Psych Details: anxiety, depression stable for now with current treatment. Endo Details: Negative for polyuria and polydypsia Mo/Lymph Details: Negative for excessive bruising or bleeding. Physical Exam Vital Signs: Last Vital Signs Temp 98.4 F 11/29/22 12:06 Pulse 77 11/29/22 12:06 BP 108/72 11/29/22 12:06 Pulse Ox 99 11/29/22 12:06 BMI result Body Mass Index 22.0 APPEARANCE: Patient in no acute distress EYES no redness, pupils equal and reactive to light, eyelids normal ABD: Normal bowel sounds, no organomegaly, masses or tenderness. EXTREMITIES: No edema, no calf tenderness, normal peripheral pulses. NEURO: Oriented and alert x3. No focal weakness. Reflexes symmetric. Gait normal. SKIN: No inflammatory or neoplastic lesions. There are few spots of nontender bruises on the left pretibial region. She does not recall any trauma. JOINT EXAM:.?? Cervical Spine:? Full range of motion with mild pain at the extremes. There is some posterior cervical muscle tenderness. Thoracic Spine:? No scoliosis.? No tenderness on palpation. Lumbar Spine:? Alignment normal.? Pain with flexion? at 45 degrees and pain with any attempts at hyperextension. There is tenderness to palpation lumbar spine and lumbar spinal muscles. Hands:? Right: There is tenderness across the 1st 3 MCP and 1st and 2nd PIP joints. There is pain with motion of the 1st 3 digits. There is no triggering or swelling. No redness or warmth. No sensory loss. Left: Normal pain-free range of motion without swelling, increased warmth or erythema. There is some slight MCP and PIP tenderness but no swelling. No triggering, sensory loss or thenar atrophy. Wrists:? Left: Mild to moderate pain with flexion of 45 degrees. There is some mild tenderness but no redness or swelling. Right: Normal pain-free range of motion without tenderness, swelling, increased warmth or erythema. Elbows: Right: Mild pain with full extension or flexion. Mild tenderness over the lateral epicondyle mostly but also over the joint space. No swelling, redness or warmth. Left: Normal pain-free range of motion with mild tenderness at the lateral epicondyle. Over the joint space there is no tenderness, swe lling, increased warmth or erythema. Shoulders:??Right: Mild to moderate pain with abduction 100 degrees or attempts at rotation. The pain is felt anteriorly but also up over the trapezius region. She has mild anterior, subacromial and posterior tenderness. There is no swelling or adenopathy. There may be some abductor weakness. Left: Full range of motion with mild pain at the extremes of motion. There is mild anterior tenderness without weakness, swelling, increased warmth or erythema over the joints.? Hips:? Full range of motion with buttock and lateral pain at the extremes of motion. She also has, widespread diffuse tenderness reported in all areas of both legs, from hill, calf, knee, thigh, hip regions. Hip bursa:? Tenderness to palpation bilaterally, widespread diffuse tenderness to palpation reported. Knees:?? Normal range of motion. No tenderness, swelling, increased warmth erythema.? No effusion or crepitation noted. Ankles:? Normal pain-free range of motion without tenderness, swelling, increased warmth or erythema. Feet: Normal pain-free range of motion with tenderness across the MTP joints and the insteps. However there is no swelling, increased warmth or erythema. Tender points:? Tenderness to digital palpation at the occiput, trapezius, second rib, lateral epicondyle, knees, greater trochanter and gluteal area bilaterally. ? Results Reviewed Results Reviewed: Laboratory Tests 07/25/22 07/25/22 08/27/22 10:30 10:30 17:16 WBC 5.0 Hgb 11.1 L Plt Count 175 ESR 10 C-Reactive Protein < 0.10 Assessment & Plan Assessment & Plan (1) Osteoarthritis of lumbar spine: Code(s): M47.816 - Spondylosis without myelopathy or radiculopathy, lumbar region (2) Osteoarthritis of knees, bilateral: Code(s): M17.0 - Bilateral primary osteoarthritis of knee (3) Positive sm/SUPERVISORY CLERK antibody: Code(s): R76.8 - Other specified abnormal immunological findings in serum (4) Fibromyalgia: Code(s): M79.7 - Fibromyalgia Plan She has widespread pain but no signs on exam of swelling to suggest an active inflammatory disease. She has many tender points so this is likely to be fibromyalgia. There is radiographic evidence of mild osteoarthritis in the knees. She is already on many medications for her fibromyalgia and psychiatric disorder. She wants me to prescribe Norflex. I told her given the multiple sedating drug she is already taking I think that would be somewhat risky and not likely to make a big difference in her pain syndrome. We did put her back on some diclofenac gel that she could put on painful areas once or twice a day. I talked to the daughter and told the daughter to encourage the patient to do more physical activity such as stretching and walking. Although this is likely to cause more pain she should not be damaged by that and in fact if she could improve her fitness she would have better functioning. We will recheck things again in 3-4 months. Medications: New diclofenac sodium 1% 2 grams topical QID 100 grams 3RF M17.0 - Bilateral primary osteoarthritis of knee Discontinued Synthroid 50 mcg PO DAILY 90 days 90 tabs 4RF NS E03.9 - Hypothyroidism, unspecified Coding Level of Care Code Est Pt Level 3 (62683) Diagnoses Osteoarthritis of lumbar spine M47.816 Osteoarthritis of knees, bilateral M17.0 Positive sm/SUPERVISORY CLERK antibody R76.8 Fibromyalgia M79.7
== END 2022-11-29 12:45 | disposition home or self-care (01) ==
LOC: HO.RHE 11:58
PROVIDERS: PCP Internal Medicine; Visit Provider Internal Medicine Rheumatology
DX: M47.816 Spondylosis without myelopathy or radiculopathy, lumbar region (principal); M17.0 Bilateral primary osteoarthritis of knee; R76.8 Other specified abnormal immunological findings in serum; M79.7 Fibromyalgia
CPT/HCPCS: 99213

== ENCOUNTER → 2022-11-29 11:58 | Outpatient (BNVA) | payer OTHER, SELFPAY | PROVIDERS: PCP Internal Medicine; Visit Provider Internal Medicine Rheumatology | DX: M79.7 Fibromyalgia (principal); R76.8 Other specified abnormal immunological findings in serum; M17.0 Bilateral primary osteoarthritis of knee; M05.9 Rheumatoid arthritis with rheumatoid factor, unspecified; M47.816 Spondylosis without myelopathy or radiculopathy, lumbar region | CPT/HCPCS: 99212 ==

== ENCOUNTER 2022-12-01 14:53 | Outpatient (AMB) | payer OTHER, SELFPAY ==
--- NOTE | 2022-12-01 14:57 | MHC.OFFVIS ---
Intake Vital Signs 12/01/22 14:58 Height 5 ft 3 in Weight 124 lb 5.451 oz BMI 22.0 BP 136/68 Blood Pressure Location Lt brachial Position Sitting Pulse 64 Intake Visit Reasons: follow up r/s from 11/18 Intake Note: Zara presents in office today in follow up of PT CC: Patient reports doing a lot better after starting Simethicone. She c/o epigastric pain, she states from gastritis. Denies other GI symptoms today. Leasing Representative Required: Yes Leasing Representative Language: Monegasque Accompanied by: Self / Same As Patient Allergies Sulfa (Sulfonamide Antibiotics) Allergy (Severe, Verified 12/01/22 15:06) Itching codeine [CODEINE] Allergy (Intermediate, Verified 12/01/22 15:06) ITCHING hydroxychloroquine [From PLAQUENIL] Allergy (Intermediate, Verified 12/01/22 15:06) VOMITING morphine [MORPHINE] Allergy (Intermediate, Verified 12/01/22 15:06) ITCHING oxycodone [From PERCOCET] Allergy (Intermediate, Verified 12/01/22 15:06) ITCHING tramadol [From ULTRAM] Allergy (Intermediate, Verified 12/01/22 15:06) ITCHING levothyroxine sodium Allergy (Unknown, Verified 12/01/22 15:06) rash,throat closes bupropion [From Wellbutrin] Adverse Reaction (Severe, Verified 12/01/22 15:06) Seizure Corticosteroids (Glucocorticoids) [CORTICOSTEROIDS (GLUCOCORTICOIDS)] Adverse Reaction (Severe, Verified 12/01/22 15:06) DIFFICULTY BREATHING escitalopram [From Lexapro] Adverse Reaction (Severe, Verified 12/01/22 15:06) seizure meloxicam Adverse Reaction (Severe, Verified 12/01/22 15:06) Gastrointestinal Upset trazodone Adverse Reaction (Severe, Verified 12/01/22 15:06) Seizure acetaminophen [Percocet] Adverse Reaction (Unknown, Verified 12/01/22 15:06) Unknown duloxetine Adverse Reaction (Unknown, Verified 12/01/22 15:06) Unknown HPI follow up r/s from 11/18 HPI Details Assessment & Plan (1) GERD (gastroesophageal reflux disease): ?Code(s): K21.9 - Gastro-esophageal reflux disease without esophagitis ?Qualifiers: ?Esophagitis presence:?without esophagitis? Qualified Code(s):?K21.9 - Gastro-esophageal reflux disease without esophagitis ?Plan: [place]ER #Desiree lIVE She is having pain in the RUQ that radiates to her back; for over a month. She is now moving her bowels normally and not taking any medications. It is described as a sharp/inflamed pain that moves from front to back. It is not r/t eating and it occurs every day for varying lengths of time. She will have some periods of no pain. She notes increased burping and some nausea - she is s/p shameka. She has a new dx of IC. She is due for colonoscopy next year. She asks about EGD but she just had one in 2019.? This may be gas trapping, so will try simethicone qid and eval. Does not sound GI, she has extensive problems with RA and other autoimmune problems so could be muscular as well. Could consider XR of t spine. ROV 4 weeks. . (2) Chronic idiopathic constipation: ?Code(s): K59.04 - Chronic idiopathic constipation (3) Diarrhea: ?Code(s): R19.7 - Diarrhea, unspecified ? ? ? Medications: New simethicone ?? aft er meals 180 mg PO QID 120 caps 3RF 30 days ? ? Discontinued Synthroid 50 mcg? PO DAILY 9 0 days 90 tabs 4RF NS E03.9 - Hypothyroi dism, unspecified ? phenazopyridine (P yridium) ?? Discon tinued Reason:? En tered in error 200 mg? PO TID 6 t abs 2RF ? ? nitrofurantoin mon ohyd/m-cryst 100 m g (Macrobid) ?? mu st administer with a meal/food ?? Di scontinued Reason: ? Entered in error 50 caps? PO DAILY 90 caps 0R TODAY'S VISIT [place]ER #Leigha Live She received the simethicone and it helped with her RUQ pain and back pain a great deal and right away. But, her upper stomach, my gastritis is now a problem as she has been out of the Dexilant for a few months. I was unaware of this, and it is likely because it needs a yearly PA. I will get our staff to work on this. In the past she has failed famotidine, omeprazole, pantoprazole, cimetiidne in the past. She has IC and is sensitive to many medicines. She also admits that she was restarted on meloxicam for her OA and this may be driving her stomach discomfort. ROV 6 weeks. [facility] Medical History (Updated 11/29/22 @ 12:17 by Candido Izquierdo MD) Acquired hypothyroidism Anxiety Autoimmune disorder Bilateral knee pain Bipolar depression Constipation Ductal carcinoma in situ (DCIS) of left breast Estrogen receptor positive status [ER+] Fibromyalgia Gingivitis History of breast cancer Hypothyroidism Insomnia Left temporomandibular joint disorder, unspecified Leukopenia Lupus (systemic lupus erythematosus) Osteoporosis Polyarthralgia Primary insomnia PTSD (post-traumatic stress disorder) Raynaud's disease without gangrene Rheumatoid arthritis Schatzki's ring 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 Systemic lupus erythematosus Vitamin D deficiency Surgical History History of bilateral mastectomy History of section History of cholecystectomy History of esophagogastroduodenoscopy (EGD) History of total abdominal hysterectomy and bilateral salpingo-oophorectomy History of tubal ligation Hx of colonoscopy Family History Father Hypertension Prostate cancer Mother Breast cancer Hypertension Asthma Maternal Aunt Breast cancer Maternal Grandmother Colon cancer Maternal Aunt Breast cancer Social History Household Members: Children Household Members Other:: 2 daughters Housing: House Do you presently have visiting nurse or other home services: No Alcohol intake: never Patient Tobacco Use Status: Never used Tobacco e-Cigarette/Vaping Use: Never Used Second Hand Smoke Exposure: No Advance Directives Date on File: 08/12/20 service: No Current occupational status: disabled Sexual orientation: Straight/Heterosexual Cognitive needs: Yes (cane) Hearing needs: No Vision needs: Yes (Glasses) Female Reproductive History Menstrual Age of Menarche: 10 Review of Systems Const Denies fatigue, Denies fever(s), Denies night sweats, Denies poor appetite and Denies weight loss Eyes Details: glasses Reports requires corrective lenses ENT Reports Normal hearing present, Denies dental pain, Denies dysphagia, Denies hearing loss, Denies mouth pain, Denies odynophagia, Denies throat swelling, Denies tongue swelling and Reports other (Dentition adequate) Card Reports no additional complaints Resp Reports no additional complaints GI Denies abdominal pain, Denies melena, Reports bloating, Denies hematochezia, Denies constipation, Denies GI cramping, Denies dysphagia, Denies excessive flatus, Denies early satiety, Reports heartburn, Denies diarrhea, Denies nausea, Denies odynophagia, Denies vomiting and Denies hematemesis Skin/Breast Denies pruritus, Denies lesions, Denies rash and Denies jaundice Neuro Reports Normal hearing present and Denies Abnormal speech present Endo Denies fatigue Aller/Immun Denies throat swelling and Denies tongue swelling Physical Exam Vital Signs: Last Vital Signs Pulse 64 12/01/22 14:58 BP 136/68 12/01/22 14:58 BMI result Body Mass Index 22.0 Const General: cooperative, no acute distress, well developed and well groomed Nutritional Appearance: average body habitus and well nourished Orientation/consciousness: oriented to person, oriented to place and oriented to time Limitations: language barrier HEENT Head: Yes normocephalic and Yes atraumatic Eyes General: appearance normal, both eyes and all related structures Pupils: Equal, round and reactive pupils present Neck Neck: Yes normal visual inspection and Yes no lymphadenopathy Thyroid: Thyroid normal Resp Effort & Inspection: normal respiratory effort and able to speak in complete sentences Auscultation: clear to auscultation bilaterally Cardio Rate: regular rate Rhythm: regular rhythm Heart sounds: Normal, physiologic split S2 sound present Peripheral pulses: radial pulses present and posterior tibial pulses present GI Inspection: No distended and No Abdominal panniculus present Palpation (GI): Soft to palpation, nontender, no guarding, not rigid and No hepatosplenomegaly present Percussion: Yes normal to percussion Auscultation: normal bowel sounds Rectal Exam - Female: deferred Skin General skin exam: no rashes or lesions noted, turgor normal, skin not dry, no jaundice, No spider nevi and no striae Rashes: no rashes Nails: normal Neuro General: oriented to person, oriented to place and oriented to time Cranial nerves: Yes Equal, round and reactive pupils present and Yes Normal hearing present Speech: No Abnormal speech present Extrem General: Yes normal to inspection, No clubbing, No cyanosis and No edema Psych Appearance: grossly normal and well kempt Mental Status: mental status grossly normal Speech and movement: Normal speech and movement present Affect: normal affect Attitude: cooperative Thought process: Normal thought process present and not confabulating Thought content: Normal thought content present Insight: Limited insight present (Psych) Judgement: Limited judgement present (Psych) Assessment & Plan Assessment & Plan (1) GERD (gastroesophageal reflux disease): Code(s): K21.9 - Gastro-esophageal reflux disease without esophagitis Qualifiers: Esophagitis presence: without esophagitis Qualified Code(s): K21.9 - Gastro-esophageal reflux disease without esophagitis Plan: [place] #Leigha Live She received the simethicone and it helped with her RUQ pain and back pain a great deal and right away. But, her upper stomach, my gastritis is now a problem as she has been out of the Dexilant for a few months. I was unaware of this, and it is likely because it needs a yearly PA. I will get our staff to work on this. In the past she has failed famotidine, omeprazole, pantoprazole, cimetiidne in the past. She has IC and is sensitive to many medicines. She also admits that she was restarted on meloxicam for her OA and this may be driving her stomach discomfort. ROV 6 weeks. (2) Tubular adenoma of colon: Comment: scope 2019 severe TICS, no polyps repeat 5 years 2023 Code(s): D12.6 - Benign neoplasm of colon, unspecified (3) Family history of polyps in the colon: Comment: father and maternal grandmother crc Code(s): Z83.71 - Family history of colonic polyps Medications: New dexlansoprazole (Dexilant) 60 mg PO DAILY 30 days 30 caps 6RF Discontinued Synthroid 50 mcg PO DAILY 90 days 90 tabs 4RF NS E03.9 - Hypothyroidism, unspecified Coding Level of Care Code Est Pt Level 3 (39430) Diagnoses GERD (gastroesophageal reflux disease) K21.9 Esophagitis presence: without esophagitis Tubular adenoma of colon D12.6 Family history of polyps in the colon Z83.71
[2022-12-01 14:58] VITALS: BP 136/68; PULSE 64; BMI 22.0
== END 2022-12-01 15:33 | disposition home or self-care (01) ==
PROVIDERS: PCP Internal Medicine; Visit Provider Nurse Practitioner
DX: K21.9 Gastro-esophageal reflux disease without esophagitis (principal); D12.6 Benign neoplasm of colon, unspecified; Z83.71 Family history of colonic polyps
CPT/HCPCS: 99213

== ENCOUNTER → 2022-12-01 14:53 | Outpatient (BNVA) | payer OTHER, SELFPAY | PROVIDERS: PCP Internal Medicine; Visit Provider Nurse Practitioner | DX: K21.9 Gastro-esophageal reflux disease without esophagitis (principal); D12.6 Benign neoplasm of colon, unspecified; Z83.71 Family history of colonic polyps | CPT/HCPCS: 99212 ==

== ENCOUNTER 2022-12-14 11:24 | Outpatient (REF) | payer OTHER, SELFPAY ==
[2022-12-14 11:55] LABS: MANUAL DIFF FLAG NO
[2022-12-14 12:13] LABS: Basophils Percent Auto 0.3 % (0-2); Eosinophils Percent Auto 0.8 % (0-4); Hematocrit 35.9 % (37.0-47.0); Hemoglobin 11.5 g/dl (12.0-16.0); Lymphocytes Absolute Auto 0.8 X10*3/uL (1.2-4.9); Lymphocytes Percent Auto 22.1 % (20-40); Mean Corpuscular Hemoglobin 27.4 pg (27.0-33.0); Mean Corpuscular Volume 85.7 fL (80.0-98.0); Mean Platelet Volume 10.3 fL (9.4-12.3); Monocytes Absolute Auto 0.3 X10*3/uL (0.1-1.2); Monocytes Percent Auto 7.2 % (2-11); Neutrophils Absolute Auto 2.6 x10*3/uL (2.0-8.3); Neutrophils Percent Auto 69.6 % (45-73); Platelet Count 180 X10*3/uL (160-400); Red Blood Count 4.19 X10*6/uL (4.20-5.50); Red Cell Distribution Width 13.2 % (11.0-16.0); White Blood Count 3.8 X10*3/uL (4.8-10.8)
[2022-12-14 12:44] LABS: Appearance Urine Clear; Color Urine Dark Yellow; Glucose Urine UA Negative (Negative); Leukocyte Esterase Urine Trace (Negative); Nitrite Urine Negative (Negative); UMIC TRIGGER UACC YES; Urine Blood Negative (Negative); Urine Ketones Trace mg/dL (Negative); Urine Protein 30 (1+) mg/dL (Neg-Trace)
[2022-12-14 12:46] LABS: Bacteria Urine None Seen (None Seen); RBC Urine 0-2 /HPF (0-2); WBC Urine 0-5 /HPF (0-5)
[2022-12-14 12:49] LABS: Alanine Aminotransferase 12 U/L (0-31); Albumin Level 4.1 g/dL (3.5-5.0); Alkaline Phosphatase 63 U/L (39-117); Anion Gap 13 (12-20); Aspartate Amino Transferase 17 U/L (5-31); Bilirubin Total 0.2 mg/dL (0.0-1.0); Blood Urea Nitrogen 17 mg/dL (9-16); Calcium 9.1 mg/dL (8.4-10.2); Carbon Dioxide 25 mmol/L (22-29); Chloride 108 mmol/L (96-108); Cholesterol 168 mg/dL; Estimated Glomerular Filt Rate > 60; Glucose Fasting 79 mg/dL (60-99); HDL Cholesterol 74 mg/dL; LDL Cholesterol Calculated 89 mg/dl; Potassium 3.7 mmol/L (3.3-5.1); Sodium 142 mmol/L (135-145); Total Protein 7.3 g/dL (6.5-8.0); Triglycerides 26 mg/dL
[2022-12-14 12:53] LABS: Erythrocyte Sedimentation Rate 13 MM/HR (0-20)
[2022-12-14 13:05] LABS: Free T4 (Free Thyroxine) 1.11 ng/dL (0.71-1.85); Thyroid Stimulating Hormone 1.12 uIU/mL (0.32-4.0); Vitamin D 25-OH Total 42.2 ng/mL (>30)
== END 2022-12-14 11:25 | disposition home or self-care (01) ==
LOC: HO.LAB 11:24
PROVIDERS: PCP Internal Medicine; Visit Provider Internal Medicine
DX: I10 Essential (primary) hypertension (principal); E78.00 Pure hypercholesterolemia, unspecified; M79.7 Fibromyalgia; E03.9 Hypothyroidism, unspecified; E55.9 Vitamin D deficiency, unspecified; R30.0 Dysuria
CPT/HCPCS: 36415; 80053; 80061; 81001; 82306; 84439; 84443; 85025; 85652

== ENCOUNTER 2022-12-19 16:55 | Outpatient (AMB) | payer OTHER, SELFPAY ==
--- NOTE | 2022-12-19 16:58 | MHC.PC.OV ---
Vital Signs 12/19/22 16:59 Height 5 ft 3 in Weight 120 lb 8 oz BMI 21.3 BP 122/78 Blood Pressure Location Lt brachial Position Sitting Pulse 90 Pulse Source Pulse Oximeter Pulse Oximetry (%) 97 Oxygen Delivery Method Room Air Intake Visit Reasons: 3 MONTH F/U Incident Response Consultant Required: No Accompanied by: Self / Same As Patient Allergies Sulfa (Sulfonamide Antibiotics) Allergy (Severe, Verified 12/19/22 17:25) Itching codeine [CODEINE] Allergy (Intermediate, Verified 12/19/22 17:25) ITCHING hydroxychloroquine [From PLAQUENIL] Allergy (Intermediate, Verified 12/19/22 17:25) VOMITING morphine [MORPHINE] Allergy (Intermediate, Verified 12/19/22 17:25) ITCHING oxycodone [From PERCOCET] Allergy (Intermediate, Verified 12/19/22 17:25) ITCHING tramadol [From ULTRAM] Allergy (Intermediate, Verified 12/19/22 17:25) ITCHING levothyroxine sodium Allergy (Unknown, Verified 12/19/22 17:25) rash,throat closes bupropion [From Wellbutrin] Adverse Reaction (Severe, Verified 12/19/22 17:25) Seizure Corticosteroids (Glucocorticoids) [CORTICOSTEROIDS (GLUCOCORTICOIDS)] Adverse Reaction (Severe, Verified 12/19/22 17:25) DIFFICULTY BREATHING escitalopram [From Lexapro] Adverse Reaction (Severe, Verified 12/19/22 17:25) seizure meloxicam Adverse Reaction (Severe, Verified 12/19/22 17:25) Gastrointestinal Upset trazodone Adverse Reaction (Severe, Verified 12/19/22 17:25) Seizure acetaminophen [Percocet] Adverse Reaction (Unknown, Verified 12/19/22 17:25) Unknown duloxetine Adverse Reaction (Unknown, Verified 12/19/22 17:25) Unknown Medication List - Last Reconciled 12/19/22 by Chuck Davila MD amitriptyline 50 mg PO BEDTIME 30 days ammonium lactate 12% 1 appl topical BID bisacodyl (Laxative (bisacodyl)) mg PO bupropion HCl 150 mg PO Q OTHER DAY chlorhexidine gluconate 0.12% 15 mL PO BID clonazepam 1 mg PO BID dexlansoprazole (Dexilant) 60 mg PO DAILY 30 days diclofenac sodium 1% 2 grams topical QID gabapentin 300 mg PO TID lidocaine 5% 1 patch topical DAILY PRN multivitamin with folic acid 400 mcg (Daily-Dottie (with folic acid)) 1 tab PO DAILY onabotulinumtoxinA (Botox) 200 units IM ondansetron mg PO orphenadrine citrate ER 100 mg PO BID 4 days oxcarbazepine 150 mg PO BID oxybutynin chloride ER 10 mg PO DAILY phenazopyridine (Pyridium) 100 mg PO Q8H PRN risperidone 0.25 mg PO BEDTIME simethicone 180 mg PO QID 30 days Synthroid (levothyroxine) 50 mcg PO DAILY 90 days NS trazodone 50 mg PO BEDTIME PRN Ventolin HFA 90 mcg/actuation (albuterol sulfate) 2 puffs inhalation Q6H PRN NS Tobacco use date assessed: 12/19/22 Dental Screening Dental Screen Date: 12/19/22 Did you have a dental visit in the last 12 months?: Yes Did you have a dental problem in the last 6 months where you did not have access to dental care?: No Was dental information given to patient?: Patient has dentist HPI 3 MONTH F/U HPI Details Patient comes in today for her follow up visit States that she continues to experience diffuse chronic aches and pains Also still has recurrent headaches and on and off dizziness - states that her current Rx help with her symptoms Denies any exertional chest pains but still has frequent HARTMAN, which appears to be mostly due to poor activity tolerance (+) on and off nausea but denies any vomiting or abdominal pain recently No change in bowel habits noted States that she had to stop taking her Meloxicam a few weeks ago as it was starting to bother her stomach Recalls being prescribed some Toradol at the walk-in clinic sometime last month and she has been able to take the Rx with no problems Recalls also taking Toradol in the past while she was in [place] with no issues and would like to see if she can be prescribed this again Would also like to get a referral to see a different bankruptcy legal assistant in [place] for her conditions as she feels that the bankruptcy legal assistant here at [facility] is not really doing anything helpful for her States that she has been experiencing some swelling and increased pain on her right hand (knuckles) lately and was reportedly told by rheumatology that this is just due to a fibromyalgia flare up Had her follow up labs done a few days ago - to discuss her results [facility] Medical History Acquired hypothyroidism Anxiety Autoimmune disorder Bilateral knee pain Bipolar depression Constipation Ductal carcinoma in situ (DCIS) of left breast Estrogen receptor positive status [ER+] Fibromyalgia Gingivitis History of breast cancer Hypothyroidism Insomnia Left temporomandibular joint disorder, unspecified Leukopenia Lupus (systemic lupus erythematosus) Osteoporosis Polyarthralgia Primary insomnia PTSD (post-traumatic stress disorder) Raynaud's disease without gangrene Rheumatoid arthritis Schatzki's ring 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 Systemic lupus erythematosus Vitamin D deficiency Surgical History History of bilateral mastectomy History of section History of cholecystectomy History of esophagogastroduodenoscopy (EGD) History of total abdominal hysterectomy and bilateral salpingo-oophorectomy History of tubal ligation Hx of colonoscopy Family History Father Hypertension Prostate cancer Mother Breast cancer Hypertension Asthma Maternal Aunt Breast cancer Maternal Grandmother Colon cancer Maternal Aunt Breast cancer Social History Household Members: Children Household Members Other:: 2 daughters Housing: House Do you presently have visiting nurse or other home services: No Alcohol intake: never Patient Tobacco Use Status: Never used Tobacco e-Cigarette/Vaping Use: Never Used Second Hand Smoke Exposure: No Advance Directives Date on File: 08/12/20 service: No Current occupational status: disabled Sexual orientation: Straight/Heterosexual Cognitive needs: Yes (cane) Hearing needs: No Vision needs: Yes (Glasses) Female Reproductive History Menstrual Age of Menarche: 10 Questionnaire PHQ-9 Over the last 2 weeks, how often have you been bothered by any of the following problems? 1. Little interest or pleasure in doing things: several days 2. Feeling down, depressed, or hopeless: several days 3. Trouble falling or staying asleep, or sleeping too much: several days 4. Feeling tired or having little energy: several days 5. Poor appetite or overeating: several days 6. Feeling bad about yourself - or that you are a failure or have let yourself or your family down: several days 7. Trouble concentrating on things, such as reading the newspaper or watching television: not at all 8. Moving or speaking so slowly that other people could have noticed. Or the opposite - being so fidgety or restless that you have been moving around a lot more than usual: not at all 9. Thoughts that you would be better off or of hurting yourself in some way: not at all Total score: 6 Depression Screening Interpretation: Positive Depression Screening Follow-up: Existing condition and In treatment 99969 - PHQ-9 Billing: Yes Source: Developed by Drs. Som Barrera, Stephy Taylor, Michele Li and colleagues, with an educational coleman from [employer]. Thrive Questionnaire Date Thrive assessed: 12/19/22 I am a: Patient What is your living situation today?: I have a steady place to live Within the past 12 months, did the food you bought not last and you didn't have the money to get more?: Never true Within the past 12 months, did you worry whether your food would run out before you got money to buy more?: Never true Do you have trouble paying for medicines?: No Do you have trouble getting transportation to medical appointments?: No Do you have trouble paying your heating and electricity bill?: No Do you have trouble taking care of your child, family member or friend?: No Do you have trouble with day-to-day activities such as bathing, preparing meals, shopping, managing finances, etc.?: No Are you currently unemployed and looking for a job?: No Are you interested in more education?: No Please select the resources that you would like help with: None Currently or been in a relationship where the following occur: no concerns reported AUDIT C Alcohol Use Questionnaire (AUDIT-C) 1. How often do you have a drink containing alcohol?: Never 3. How often do you have six or more drinks on one occasion?: Never Total Score: 0 Score Reviewed/Action Taken: Yes MOSHE-7 AMB Questionnaire MOSHE-7 Date MOSHE - 7 assessed: 12/19/22 Feeling nervous, anxious, or on edge: 1 = Several days Not being able to stop or control worryin = Several days Worrying too much about different things: 1 = Several days Trouble relaxin = Several days Being so restless that it is hard to sit still: 1 = Several days Becoming easily annoyed or irritable: 1 = Several days Feeling afraid as if something awful might happen: 1 = Several days Total MOSHE-7 score (0-4 normal; 5-9 mild; 10-14 moderate; 15-21 severe): 7 Source: Developed by Drs. Som Barrera, Stephy Taylor, Michele Li and colleagues, with an educational coleman from [employer]. Review of Systems Const Denies chills, Reports fatigue (chronic), Denies fever(s), Reports headache(s) (on and off) and Reports lethargy ENT Denies dysphagia, Reports dizziness (on and off), Reports headache(s) (on and off), Denies odynophagia, Denies sinus pain and Denies sore throat Card Denies chest pain, Denies palpitations and Reports dyspnea on exertion (mild, chronic) Resp Denies chest congestion, Denies cough and Reports dyspnea on exertion (mild, chronic) GI Denies abdominal pain, Reports constipation (Rx help), Denies dysphagia, Denies heartburn, Denies diarrhea, Reports nausea (on and off), Denies odynophagia and Denies vomiting Details: (+) suprapubic discomfort Denies hematuria, Reports nocturia, Reports dysuria (at times), Reports urinary hesitancy and Reports urinary urgency Musc Reports back pain (over the lower back, on and off) Neuro Reports dizziness (on and off) and Reports headache(s) (on and off) Endo Reports fatigue (chronic) and Denies palpitations Physical exam (Primary Care) Vital Signs: Last Vital Signs Pulse 90 12/19/22 16:59 BP 122/78 12/19/22 16:59 Pulse Ox 97 12/19/22 16:59 Oxygen Delivery Method Room Air 12/19/22 16:59 BMI result Body Mass Index 21.3 Tobacco/Smoking Status: Tobacco use Status Tobacco use date assessed 12/19/22 12/19/22 17:07 Patient Tobacco Use Status Never used Tobacco 12/19/22 17:07 e-Cigarette/Vaping Use Never Used 12/19/22 17:07 PHQ-9: PHQ-9 Score PHQ-9: Total score 6 12/20/22 03:07 Depression Screening Interpretation: Positive Depression Screening Follow-up: Existing condition and In treatment Thrive Assessment: Date of Thrive Assessment Date Thrive assessed 12/19/22 12/19/22 17:07 Currently or been in a relationship where the following occur: no concerns reported Const General: no acute distress, alert and tired appearing HENMT Ears: TM's normal bilaterally and EAC's normal Throat: Yes posterior oropharynx normal and Yes tonsils normal Neck Neck: Yes no lymphadenopathy and Yes supple Resp Auscultation: clear to auscultation bilaterally, no rales and no wheezes Cardio Rate: regular rate Rhythm: regular rhythm Heart sounds: no murmurs GI Palpation (GI): Soft to palpation, Tenderness to palpation present (GI) suprapubicly, no guarding, not rigid, no hernias and no masses Auscultation: normal bowel sounds Back/Spine/Pelvis Thoracic/Lumbar Spine: paraspinal muscle tenderness bilaterally in the mid lumbar and in the lower lumbar Skin Rashes: no rashes Extrem General: Yes no clubbing, cyanosis or edema Results Reviewed Results Reviewed: Laboratory Tests 12/14/22 12/14/22 12/14/22 11:53 11:53 11:53 WBC 3.8 L Hgb 11.5 L Hct 35.9 L Plt Count 180 ESR 13 Sodium 142 Potassium 3.7 Creatinine 0.74 Estimated GFR > 60 Fasting Glucose 79 Calcium 9.1 AST 17 ALT 12 Triglycerides 26 Cholesterol 168 LDL Cholesterol, Calc 89 HDL Cholesterol 74 25-OH Vitamin D Total 42.2 TSH 1.12 Free T4 1.11 Ur Specific [place] Urine Protein Urine Glucose (UA) Urine Blood 12/14/22 11:55 WBC Hgb Hct Plt Count ESR Sodium Potassium Creatinine Estimated GFR Fasting Glucose Calcium AST ALT Triglycerides Cholesterol LDL Cholesterol, Calc HDL Cholesterol 25-OH Vitamin D Total TSH Free T4 Ur Specific [place] 1.020 Urine Protein 30 (1+) H Urine Glucose (UA) Negative Urine Blood Negative Assessment and Plan Assessment & Plan (1) Fibromyalgia: Code(s): M79.7 - Fibromyalgia Plan: Patient was seeing [facility]re[facility] [place] previously and has been reportedly advised that although she tested positive for DANA, all other workups were negative and she has no clinical evidence of active disease and there is no indication for treatment for lupus or RA at the time She was seen by rheumatology here at [facility] and was advised of the same - that she has no evidence of active inflammatory joint disease and there is no indication for therapy Lumbar spine x-rays done last year came back normal Continue Lidocaine patches PRN and Gabapentin 300 mg TID Patient is again encouraged to stay active and exercise regularly (as tolerated) to help manage her fibromyalgia symptoms She currently feels that rheumatology here at [facility] is not really doing much to help her and she is requesting a referral again to go back to rheumatology in [place] - referral done, per request (2) Polyarthralgia: Code(s): M25.50 - Pain in unspecified joint Plan: Continue Orphenadrine ER 100 mg BID, Diclofenac sodium 1% gel topically PRN Follow up with [facility] Pain Management as scheduled Per request, will start her on Toradol 10 mg Q 8 hours with food PRN - have cautioned patient that Toradol, like Meloxicam, is an NSAID and may also potentially bother her stomach at some point Have also cautioned her that Toradol has been known to be associated with a slightly higher risk of GI side effects and bleeding compared to other NSAIDs and should be taken with caution Patient states that she has tried several other NSAIDs in the past, including Meloxicam, and so far, Toradol is the only one that she knows of that she can take and is kind of desperate at this point for anything that can help with her chronic symptoms but will keep my warnings in mind She was going to physical therapy previously but states that she did not experience any relief from PT; has been advised to consider a referral to physiatry in the past and a referral was done to [facility] for physiatry evaluation and management at her last visit (3) Bilateral hand pain: Code(s): M79.641 - Pain in right hand; M79.642 - Pain in left hand Plan: She currently also appears to have some painful swelling noted over some of the proximal IP joints (knuckles) of the right hand Will send her for x-rays of both hands for further evaluation (4) Dystonia: Code(s): G24.9 - Dystonia, unspecified Plan: Is receiving botox injections from neurology when needed Follow up with neurology as scheduled (5) Headache: Code(s): R51.9 - Headache, unspecified Qualifiers: Headache chronicity pattern: episodic headache Headache type: unspecified Intractability: not intractable Qualified Code(s): R51.9 - Headache, unspecified Plan: Was diagnosed with possible tension headaches by neurology and started on Amitriptyline 50 mg Q HS Follow up with neurology as scheduled (6) Acquired hypothyroidism: Code(s): E03.9 - Hypothyroidism, unspecified Plan: TFTs on her recent labs were normal Continue Synthroid 50 mcg QD Follow up with endocrinology as scheduled (7) Anemia: Code(s): D64.9 - Anemia, unspecified Qualifiers: Anemia type: unspecified type Qualified Code(s): D64.9 - Anemia, unspecified Plan: Results of her labs done a few days ago reviewed and discussed with patient - reassured that ALL of her recent labs came back NORMAL Her H/H have improved slightly on her recent labs Continue Feosol 65 mg every other day - patient gets very constipated when she takes Rx daily Will recheck CBC in 4 months for follow up (8) Osteoporosis: Code(s): M81.0 - Age-related osteoporosis without current pathological fracture Qualifiers: Osteoporosis type: unspecified Presence of current pathological fracture: without current pathological fracture Qualified Code(s): M81.0 - Age-related osteoporosis without current pathological fracture Plan: Continue daily oral calcium and Vitamin D supplements Fall precautions reinforced Follow up with endocrinology as scheduled (9) Vitamin D deficiency: Code(s): E55.9 - Vitamin D deficiency, unspecified Plan: Continue Vitamin D2 55116 units once a week (10) GERD (gastroesophageal reflux disease): Code(s): K21.9 - Gastro-esophageal reflux disease without esophagitis Qualifiers: Esophagitis presence: without esophagitis Qualified Code(s): K21.9 - Gastro-esophageal reflux disease without esophagitis Plan: Dietary restrictions reinforced Continue Dexilant 60 mg QD (11) Chronic idiopathic constipation: Code(s): K59.04 - Chronic idiopathic constipation Plan: Continue Bisacodyl PRN and Colace 100 mg QD PRN Encouraged increased oral fluids and disetary fiber Follow up with GI as scheduled (12) Interstitial cystitis: Code(s): N30.10 - Interstitial cystitis (chronic) without hematuria Plan: Her urinalysis on her recent labs is again mostly unremarkable - was negative for nitrates and leucocytes Her symptoms did not rspond to empiric Abx Tx (with Levofloxacin) in the past Urinary bladder US done a few months ago revealed (+) posterior wall trabeculations but no generalized bladder wall thickening and no masses or calculi noted Patient is again encouraged to increase her oral fluid intake; advised that drinking cranberry juice may help with her symptoms Follow up with urology as scheduled (13) Insomnia: Code(s): G47.00 - Insomnia, unspecified Qualifiers: Insomnia type: unspecified Qualified Code(s): G47.00 - Insomnia, unspecified Plan: Sleep hygiene reinforced Continue Trazodone 50 mg Q HS (14) Anxiety: Code(s): F41.9 - Anxiety disorder, unspecified Plan: Continue Clonazepam 1 mg BID PRN (15) Bipolar depression: Code(s): F31.9 - Bipolar disorder, unspecified Plan: Continue Bupropion ER 150 mg QOD Follow-up with Psychiatry as scheduled Plan Follow up in 4 months Orders: Orders XR hand LT min 3V 12/19/22 M79.641 - Pain in right hand, M79.642 - Pain in left hand XR hand RT min 3V 12/19/22 M79.641 - Pain in right hand, M79.642 - Pain in left hand Referrals Rheumatology Referral M25.50 - Pain in unspecified joint, M32.9 - Systemic lupus erythematosus, unspecified, M79.7 - Fibromyalgia Medications: New ketorolac Take WITH FOOD and ONLY NEEDED for severe pain 10 mg PO Q8H 7 days PRN 20 tabs 0RF pain Discontinued Synthroid 50 mcg PO DAILY 90 days 90 tabs 4RF NS E03.9 - Hypothyroidism, unspecified Coding Level of Care Code Est Pt Level 4 (00747) Diagnoses Fibromyalgia M79.7 Polyarthralgia M25.50 Bilateral hand pain M79.641; M79.642 Dystonia G24.9 Headache R51.9 Headache chronicity pattern: episodic headache Headache type: unspecified Intractability: not intractable Acquired hypothyroidism E03.9 Anemia D64.9 Anemia type: unspecified type Osteoporosis M81.0 Osteoporosis type: unspecified Presence of current pathological fracture: without current pathological fracture Vitamin D deficiency E55.9 GERD (gastroesophageal reflux disease) K21.9 Esophagitis presence: without esophagitis Chronic idiopathic constipation K59.04 Interstitial cystitis N30.10 Insomnia G47.00 Insomnia type: unspecified Anxiety F41.9 Bipolar depression F31.9
[2022-12-19 16:59] VITALS: BP 122/78; PULSE 90; O2SAT 97; BMI 21.3
== END 2022-12-19 17:43 | disposition home or self-care (01) ==
PROVIDERS: Visit Provider Internal Medicine
DX: E03.9 Hypothyroidism, unspecified (principal); E55.9 Vitamin D deficiency, unspecified; F41.9 Anxiety disorder, unspecified; K21.9 Gastro-esophageal reflux disease without esophagitis; M79.7 Fibromyalgia; M25.50 Pain in unspecified joint; M79.641 Pain in right hand; M79.642 Pain in left hand; G24.9 Dystonia, unspecified; R51.9 Headache, unspecified; D64.9 Anemia, unspecified; M81.0 Age-related osteoporosis without current pathological fracture
CPT/HCPCS: 99214

== ENCOUNTER 2022-12-20 09:15 | Outpatient (REF) | payer OTHER, SELFPAY ==
--- NOTE | ~2022-12-20 | XR_ITS ---
EXAMINATION: Bilateral hand x-ray CLINICAL INFORMATION: Pain COMPARISON: Previous x-ray July 2017 TECHNIQUE: 3 views of each hand FINDINGS: Bone alignment is normal. No fracture or dislocation. Normal joint spaces. Normal soft tissues. XR/XR hand RT min 3V IMPRESSION: Unremarkable examination.
--- NOTE | ~2022-12-20 | XR_ITS ---
EXAMINATION: Bilateral hand x-ray CLINICAL INFORMATION: Pain COMPARISON: Previous x-ray July 2017 TECHNIQUE: 3 views of each hand FINDINGS: Bone alignment is normal. No fracture or dislocation. Normal joint spaces. Normal soft tissues. XR/XR hand LT min 3V IMPRESSION: Unremarkable examination.
== END 2022-12-20 09:16 | disposition home or self-care (01) ==
LOC: HO.XRAY 09:15
PROVIDERS: PCP Internal Medicine; Visit Provider Internal Medicine
DX: M79.642 Pain in left hand (principal); M79.641 Pain in right hand
CPT/HCPCS: 73130

== ENCOUNTER 2023-01-03 12:32 | Outpatient (AMB) | payer OTHER, SELFPAY ==
--- NOTE | 2023-01-03 13:03 | MHC.OFFVIS ---
Intake Intake Visit Reasons: 3m/IC Intake Note: Patient is present for follow up interstitial cystitis Urology Med: oxybutynin Blood Thinner:none PVR: 0ml Spare Fixer Required: Yes Accompanied by: Daughter Allergies Sulfa (Sulfonamide Antibiotics) Allergy (Severe, Verified 01/03/23 22:18) Itching codeine [CODEINE] Allergy (Intermediate, Verified 01/03/23 22:18) ITCHING hydroxychloroquine [From PLAQUENIL] Allergy (Intermediate, Verified 01/03/23 22:18) VOMITING morphine [MORPHINE] Allergy (Intermediate, Verified 01/03/23 22:18) ITCHING oxycodone [From PERCOCET] Allergy (Intermediate, Verified 01/03/23 22:18) ITCHING tramadol [From ULTRAM] Allergy (Intermediate, Verified 01/03/23 22:18) ITCHING levothyroxine sodium Allergy (Unknown, Verified 01/03/23 22:18) rash,throat closes bupropion [From Wellbutrin] Adverse Reaction (Severe, Verified 01/03/23 22:18) Seizure Corticosteroids (Glucocorticoids) [CORTICOSTEROIDS (GLUCOCORTICOIDS)] Adverse Reaction (Severe, Verified 01/03/23 22:18) DIFFICULTY BREATHING escitalopram [From Lexapro] Adverse Reaction (Severe, Verified 01/03/23 22:18) seizure meloxicam Adverse Reaction (Severe, Verified 01/03/23 22:18) Gastrointestinal Upset trazodone Adverse Reaction (Severe, Verified 01/03/23 22:18) Seizure acetaminophen [Percocet] Adverse Reaction (Unknown, Verified 01/03/23 22:18) Unknown duloxetine Adverse Reaction (Unknown, Verified 01/03/23 22:18) Unknown Medication List - Last Reconciled 01/03/23 by TRINY Jiang amitriptyline 50 mg PO BEDTIME 30 days ammonium lactate 12% 1 appl topical BID bisacodyl (Laxative (bisacodyl)) mg PO bupropion HCl 150 mg PO Q OTHER DAY chlorhexidine gluconate 0.12% 15 mL PO BID clonazepam 1 mg PO BID dexlansoprazole (Dexilant) 60 mg PO DAILY 30 days diclofenac sodium 1% 2 grams topical QID gabapentin 300 mg PO TID ketorolac 10 mg PO Q8H PRN 7 days lidocaine 5% 1 patch topical DAILY PRN multivitamin with folic acid 400 mcg (Daily-Dottie (with folic acid)) 1 tab PO DAILY onabotulinumtoxinA (Botox) 200 units IM ondansetron mg PO orphenadrine citrate ER 100 mg PO BID 4 days oxcarbazepine 150 mg PO BID oxybutynin chloride ER 10 mg PO DAILY phenazopyridine (Pyridium) 100 mg PO Q8H PRN risperidone 0.25 mg PO BEDTIME simethicone 180 mg PO QID 30 days Synthroid (levothyroxine) 50 mcg PO DAILY 90 days NS trazodone 50 mg PO BEDTIME PRN Ventolin HFA 90 mcg/actuation (albuterol sulfate) 2 puffs inhalation Q6H PRN NS HPI HPI Comments History of Present Illness Details Zara is a very pleasant 57-year-old Belarusian-speaking female patient of Dr. Davila who was accompanied by her daughter at today's visit. She has a past medical history of hypothyroidism, anxiety, bipolar, depression, constipation, ductal carcinoma in Situ of left breast, fibromyalgia, insomnia, leukopenia, lupus, osteoporosis, polyarthralgia, PTSD, Raynaud's, rheumatoid arthritis, and vitamin-D deficiency. She presents to the office today for follow-up of her lower urinary tract symptoms (urinary urgency, frequency, dysuria with bladder spasm) most likely interstitial cystitis. Of note, patient previously underwent a series of daily rescue solutions as well as weekly for presumed interstitial cystitis. She underwent an office cystoscopy with Dr. Keita August 2022 noting low capacity bladder, injected mucosa with extensive submucosal vein patent. Consistent with cystitis. Most likely interstitial cystitis. In discussion with the patient today she reports she continues with urinary urgency, frequency, and bladder pressure. However, she does report symptoms to be much more improved since receiving bladder instillations. Previous workup has included a retroperitoneal ultrasound noting posterior bladder wall trabeculations possibly related to history of cystitis or hypertrophy. She has trialed low-dose Cialis however experienced reaction of swelling and itching. Initial trial of Pyridium with oxybutynin however she did not find this helpful. Discussed low-dose antibiotic therapy verses cystoscopy hydrodistention versus surveillance monitoring. Discussed risks and benefits of all interventions mention. Discussed and stressed the importance of bladder triggers/irritants. In office urinalysis results reviewed with the patient today. PVR 0ml's. 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 Systemic lupus erythematosus Vitamin D deficiency Surgical History History of bilateral mastectomy History of section History of cholecystectomy History of esophagogastroduodenoscopy (EGD) History of total abdominal hysterectomy and bilateral salpingo-oophorectomy History of tubal ligation Hx of colonoscopy Family History Father Hypertension Prostate cancer Mother Breast cancer Hypertension Asthma Maternal Aunt Breast cancer Maternal Grandmother Colon cancer Maternal Aunt Breast cancer Social History Household Members: Children Household Members Other:: 2 daughters Housing: House Do you presently have visiting nurse or other home services: No Alcohol intake: never Patient Tobacco Use Status: Never used Tobacco e-Cigarette/Vaping Use: Never Used Second Hand Smoke Exposure: No Advance Directives Date on File: 08/12/20 service: No Current occupational status: disabled Sexual orientation: Straight/Heterosexual Cognitive needs: Yes (cane) Hearing needs: No Vision needs: Yes (Glasses) Female Reproductive History Menstrual Age of Menarche: 10 Review of Systems Const Reports as per HPI Eyes Reports no additional complaints ENT Reports no additional complaints Card Reports as per HPI Resp Reports no additional complaints GI Reports as per HPI Reports as per HPI Musc Reports as per HPI Skin/Breast Reports as per HPI Neuro Reports as per HPI Psych Reports as per HPI Endo Reports as per HPI Aller/Immun Reports as per HPI Physical Exam Const General: cooperative, healthy appearing, comfortable, no acute distress, well developed, alert and awake Nutritional Appearance: average body habitus Orientation/consciousness: patient oriented x3 Limitations: ambulation with cane HEENT Head: Yes normal to inspection, Yes normocephalic and Yes atraumatic Ears: hearing grossly normal bilaterally Eyes General: appearance normal, both eyes and all related structures Neck Neck: Yes normal visual inspection and Yes trachea midline Chest Chest palpation & inspection: normal inspection of the chest Resp Effort & Inspection: normal respiratory effort and able to speak in complete sentences Cardio Rate: regular rate GI Inspection: Yes normal to inspection General: Yes no CVA tenderness Back/Spine/Pelvis Back: no CVA tenderness Skin General skin exam: no rashes or lesions noted Neuro General: patient oriented x3 Extrem General: Yes normal to inspection Psych Appearance: grossly normal and well kempt Mental Status: mental status grossly normal Speech and movement: Normal speech and movement present and Clear speech present Affect: normal affect Attitude: cooperative Thought process: Normal thought process present Thought content: Normal thought content present Insight: Fair insight present (Psych) Judgement: Fair judgement present (Psych) Office Procedures Post Void Residual Post Residual Void Post Void Residual (PVR): 0 86200-Cgbo Void Residual by ultrasound Results AMB Urinalysis, Automated UA Leukoctes 15 Kristie/uL Last Edit by [employer] on 01/03/23 13:31 UA Nitrite Negative Last Edit by [employer] on 01/03/23 13:31 UA Urobilinogen 0.2 mg/dL Last Edit by [employer] on 01/03/23 13:31 UA Protein 15 mg/dL Last Edit by [employer] on 01/03/23 13:31 UA pH 6.0 Last Edit by [employer] on 01/03/23 13:31 UA Blood 0 Josue/uL Last Edit by [employer] on 01/03/23 13:31 UA Specific [place] 1.030 Last Edit by [employer] on 01/03/23 13:31 UA Ketone Last Edit by [employer] on 01/03/23 13:31 UA Bilirubin 1 mg/dL Last Edit by [employer] on 01/03/23 13:31 UA Glucose 0 mg/dL Last Edit by [employer] on 01/03/23 13:31 Results Reviewed Results Reviewed: Laboratory Last Values Urine pH (Auto) 6.0 01/03/23 13:16 Specific [place] (Auto) 1.030 01/03/23 13:16 Urine Protein (Auto) 15 mg/dL 01/03/23 13:16 Glucose (UA)(Auto) 0 mg/dL 01/03/23 13:16 Urine Blood (Auto) 0 Josue/uL 01/03/23 13:16 Urine Nitrite (Auto) Negative 01/03/23 13:16 Urine Bilirubin (Auto) 1 mg/dL 01/03/23 13:16 Urine Urobilinogen (Auto) 0.2 mg/dL 01/03/23 13:16 Leukocyte Esterase (Auto) 15 Kristie/uL 01/03/23 13:16 Assessment & Plan Assessment & Plan (1) Recurrent cystitis: Code(s): N30.90 - Cystitis, unspecified without hematuria (2) Urinary frequency: Code(s): R35.0 - Frequency of micturition (3) Lower urinary tract symptoms: Code(s): R39.9 - Unspecified symptoms and signs involving the genitourinary system Plan: Risks, benefits and alternatives to therapy were discussed. These include but are not limited to infection, bleeding, damage to local organs and tissues, need for further interventions. ? Anesthetic risks regarding cardiac arrhythmia, blood clots, and potential mortality were discussed. The patient understands the typical recovery time and the outpatient nature of the procedure. After consideration of these risks the patient gives full informed consent and they wish to move ahead with the procedure. Plan In office urinalysis results reviewed with patient and her daughter today; as noted above. Discussed at length pelvic floor therapy, low-dose antibiotic, cystoscopy hydrodistention, and or surveillance monitoring of interstitial cystitis. Discussed risks and benefits of asforementioned treatment options/interventions All questions were answered. Discussed at length bladder triggers/irritants. Will schedule for cystoscopy hydrodistention in or as discussed and planned Follow-up postprocedure or sooner with any questions, concerns, and or issues. Orders: Orders AMB Urinalysis Automated Today Z13.9 - Encounter for screening, unspecified AMB Post Void Residual by ultrasound Today N30.10 - Interstitial cystitis (chronic) without hematuria Medications: Discontinued Synthroid 50 mcg PO DAILY 90 days 90 tabs 4RF NS E03.9 - Hypothyroidism, unspecified Patient Instructions: The patient had an opportunity to ask questions regarding the treatment plan. All questions were answered. Physical exam, labs, and imaging were discussed and reviewed in detail. As well as risks, benefits, and discussion of treatment choices. No major barriers to understanding were identified. The patient expressed understanding and agreement with the above treatment plan. The patient was made aware they should contact our office by phone for worsening of their current condition, the appearance of new symptoms, or with any questions or concerns. Compliance is encouraged with any medications and follow up testing that is ordered. It is a privilege to be allowed the opportunity to participate in? your urological care.? Again, if you have any questions or concerns If you have any questions or concerns please do not hesitate to contact me. The office is [phone]. This note is constructed using voice recognition software. While every effort has been made to ensure accuracy finger grip machine operator errors may have been included. Yours sincerely, TRINY Jiang Coding Level of Care Code Est Pt Level 4 (59741) Diagnoses Recurrent cystitis N30.90 Urinary frequency R35.0 Lower urinary tract symptoms R39.9 CPT Codes Post Residual Void - PVR CPT Code: 08850-Mldy Void Residual by ultrasound ([id number])
== END 2023-01-03 13:54 | disposition home or self-care (01) ==
PROVIDERS: PCP Internal Medicine; Visit Provider Nurse Practitioner Family
DX: N30.90 Cystitis, unspecified without hematuria (principal); R35.0 Frequency of micturition; R39.9 Unspecified symptoms and signs involving the genitourinary system
CPT/HCPCS: 99214

== ENCOUNTER → 2023-01-03 12:32 | Outpatient (BNVA) | payer OTHER, SELFPAY | PROVIDERS: PCP Internal Medicine; Visit Provider Nurse Practitioner Family | DX: N30.90 Cystitis, unspecified without hematuria (principal); R35.0 Frequency of micturition; R39.9 Unspecified symptoms and signs involving the genitourinary system | CPT/HCPCS: 51798; 81003; 99212 ==

== ENCOUNTER 2023-01-12 15:02 | Outpatient (AMB) | payer OTHER, SELFPAY ==
[2023-01-12 15:05] VITALS: BP 122/65; PULSE 91; BMI 21.3
--- NOTE | 2023-01-12 15:05 | MHC.OFFVIS ---
Intake Vital Signs 01/12/23 15:05 Height 5 ft 3 in Weight 120 lb 5.958 oz BMI 21.3 BP 122/65 Blood Pressure Location Lt brachial Position Sitting Pulse 91 Intake Visit Reasons: 6 week follow up Intake Note: Zara presents to in office visit for a 6 weeks follow up. CC: Patient reports she was not able to obtain Dexilant d/t insurance issuea. She continues to have epigastric pain. Injection Molding Operator Required: Yes Injection Molding Operator Language: Bengali Accompanied by: Self / Same As Patient Allergies Sulfa (Sulfonamide Antibiotics) Allergy (Severe, Verified 01/12/23 15:13) Itching codeine [CODEINE] Allergy (Intermediate, Verified 01/12/23 15:13) ITCHING hydroxychloroquine [From PLAQUENIL] Allergy (Intermediate, Verified 01/12/23 15:13) VOMITING morphine [MORPHINE] Allergy (Intermediate, Verified 01/12/23 15:13) ITCHING oxycodone [From PERCOCET] Allergy (Intermediate, Verified 01/12/23 15:13) ITCHING tramadol [From ULTRAM] Allergy (Intermediate, Verified 01/12/23 15:13) ITCHING levothyroxine sodium Allergy (Unknown, Verified 01/12/23 15:13) rash,throat closes bupropion [From Wellbutrin] Adverse Reaction (Severe, Verified 01/12/23 15:13) Seizure Corticosteroids (Glucocorticoids) [CORTICOSTEROIDS (GLUCOCORTICOIDS)] Adverse Reaction (Severe, Verified 01/12/23 15:13) DIFFICULTY BREATHING escitalopram [From Lexapro] Adverse Reaction (Severe, Verified 01/12/23 15:13) seizure meloxicam Adverse Reaction (Severe, Verified 01/12/23 15:13) Gastrointestinal Upset trazodone Adverse Reaction (Severe, Verified 01/12/23 15:13) Seizure acetaminophen [Percocet] Adverse Reaction (Unknown, Verified 01/12/23 15:13) Unknown duloxetine Adverse Reaction (Unknown, Verified 01/12/23 15:13) Unknown HPI 6 week follow up HPI Details Assessment & Plan (1) GERD (gastroesophageal reflux disease): Code(s): K21.9 - Gastro-esophageal reflux disease without esophagitis Qualifiers: Esophagitis presence: without esophagitis Qualified Code(s): K21.9 - Gastro-esophageal reflux disease without esophagitis Plan: POLISH #Leigha Live She received the simethicone and it helped with her RUQ pain and back pain a great deal and right away. But, her upper stomach, my gastritis is now a problem as she has been out of the Dexilant for a few months. I was unaware of this, and it is likely because it needs a yearly PA. I will get our staff to work on this. In the past she has failed famotidine, omeprazole, pantoprazole, cimetiidne in the past. She has IC and is sensitive to many medicines. She also admits that she was restarted on meloxicam for her OA and this may be driving her stomach discomfort. ROV 6 weeks. (2) Tubular adenoma of colon: Comment: scope 2019 severe TICS, no polyps repeat 5 years 2023 Code(s): D12.6 - Benign neoplasm of colon, unspecified (3) Family history of polyps in the colon: Comment: father and maternal grandmother crc Code(s): Z83.71 - Family history of colonic polyps Medications: New dexlansoprazole (D exilant) 60 mg PO DAILY 30 days 30 caps 6RF Discontinued Synthroid 50 mcg PO DAILY 9 0 days 90 tabs 4RF NS E03.9 - Hypothyroi dism, unspecified TODAY'S VISIT POLISH #Stephane Tatum translates per pt request She did not get the Dexilant and this is the only med that helps her. We have conflicting information as she says she got a letter from the insurance saying they would not pay anymore, but the pharmacist says she picked up a 90 day supple 12/01....She denies taking it more than qd. Dtjudie Deepti will recheck the medications and I will try to send a temp supply of cimetidine 800m gbid. She uses bisacodyl prn for CIC and has simethicone available for bloating ROV 4 weeks. [facility] Medical History (Updated 01/26/23 @ 16:51 by AICHA Manzo) Constipation Estrogen receptor positive status [ER+] Ductal carcinoma in situ (DCIS) of left breast Autoimmune disorder PTSD (post-traumatic stress disorder) Insomnia Bilateral knee pain Fibromyalgia Schatzki's ring Rheumatoid arthritis Small bowel motility disorder Vitamin D deficiency Hypothyroidism Osteoporosis Raynaud's disease without gangrene Lupus (systemic lupus erythematosus) Seropositive rheumatoid arthritis Bipolar depression Anxiety Primary insomnia History of breast cancer Polyarthralgia Leukopenia Acquired hypothyroidism Systemic lupus erythematosus Gingivitis Left temporomandibular joint disorder, unspecified Surgical History History of esophagogastroduodenoscopy (EGD) Hx of colonoscopy History of bilateral mastectomy History of total abdominal hysterectomy and bilateral salpingo-oophorectomy History of cholecystectomy History of tubal ligation History of section Family History Father Hypertension Prostate cancer Mother Breast cancer Hypertension Asthma Maternal Aunt Breast cancer Maternal Grandmother Colon cancer Maternal Aunt Breast cancer Social History Household Members: Children Household Members Other:: 2 daughters Housing: House Do you presently have visiting nurse or other home services: No Alcohol intake: never Patient Tobacco Use Status: Never used Tobacco e-Cigarette/Vaping Use: Never Used Second Hand Smoke Exposure: No Advance Directives Date on File: 08/12/20 service: No Current occupational status: disabled Sexual orientation: Straight/Heterosexual Cognitive needs: Yes (cane) Hearing needs: No Vision needs: Yes (Glasses) Female Reproductive History Menstrual Age of Menarche: 10 Review of Systems Const Denies fatigue, Denies fever(s), Denies night sweats, Denies poor appetite and Denies weight loss Eyes Details: glasses Reports requires corrective lenses ENT Reports Normal hearing present, Denies dental pain, Denies dysphagia, Denies hearing loss, Denies mouth pain, Denies odynophagia, Denies throat swelling, Denies tongue swelling and Reports other (Dentition adequate) Card Reports no additional complaints Resp Reports no additional complaints GI Denies abdominal pain, Denies melena, Denies bloating, Denies hematochezia, Reports constipation, Denies GI cramping, Denies dysphagia, Denies excessive flatus, Denies early satiety, Reports heartburn, Denies diarrhea, Denies nausea, Denies odynophagia, Denies vomiting and Denies hematemesis Skin/Breast Denies pruritus, Denies lesions, Denies rash and Denies jaundice Neuro Reports Normal hearing present and Denies Abnormal speech present Endo Denies fatigue Aller/Immun Denies throat swelling and Denies tongue swelling Physical Exam Vital Signs: Last Vital Signs Pulse 91 01/12/23 15:05 BP 122/65 01/12/23 15:05 BMI result Body Mass Index 21.3 Const General: cooperative, no acute distress, well developed and well groomed Nutritional Appearance: well nourished and thin Orientation/consciousness: oriented to person, oriented to place and oriented to time Limitations: language barrier HEENT Head: Yes normocephalic and Yes atraumatic Eyes General: appearance normal, both eyes and all related structures Pupils: Equal, round and reactive pupils present Neck Neck: Yes normal visual inspection and Yes no lymphadenopathy Thyroid: Thyroid normal Resp Effort & Inspection: normal respiratory effort and able to speak in complete sentences Auscultation: clear to auscultation bilaterally Cardio Rate: regular rate Rhythm: regular rhythm Heart sounds: Normal, physiologic split S2 sound present Peripheral pulses: radial pulses present and posterior tibial pulses present GI Inspection: No distended and No Abdominal panniculus present Palpation (GI): Soft to palpation, Tenderness to palpation present (GI) in the epigastrum, no guarding, not rigid and No hepatosplenomegaly present Percussion: Yes normal to percussion Auscultation: normal bowel sounds Rectal Exam - Female: deferred Skin General skin exam: no rashes or lesions noted, turgor normal, skin not dry, no jaundice, No spider nevi and no striae Rashes: no rashes Nails: normal Neuro General: oriented to person, oriented to place and oriented to time Cranial nerves: Yes Equal, round and reactive pupils present and Yes Normal hearing present Speech: No Abnormal speech present Extrem General: Yes normal to inspection, No clubbing, No cyanosis and No edema Psych Appearance: grossly normal and well kempt Mental Status: mental status grossly normal Speech and movement: Normal speech and movement present Affect: normal affect Attitude: cooperative Thought process: Normal thought process present and not confabulating Thought content: Normal thought content present Insight: Limited insight present (Psych) Judgement: Limited judgement present (Psych) Assessment & Plan Assessment & Plan (1) GERD (gastroesophageal reflux disease): Code(s): K21.9 - Gastro-esophageal reflux disease without esophagitis Qualifiers: Esophagitis presence: without esophagitis Qualified Code(s): K21.9 - Gastro-esophageal reflux disease without esophagitis Plan: POLISH #Dtr Deepti translates per pt request She did not get the Dexilant and this is the only med that helps her. We have conflicting information as she says she got a letter from the insurance saying they would not pay anymore, but the pharmacist says she picked up a 90 day supple 12/01....She denies taking it more than qd. Dtr Deepti will recheck the medications and I will try to send a temp supply of cimetidine 800m gbid. She uses bisacodyl prn for CIC and has simethicone available for bloating ROV 4 weeks. (2) Constipation: Code(s): K59.00 - Constipation, unspecified Medications: New cimetidine temp med until Dexilant is available 800 mg PO BID 60 tabs 0RF Changed From bisacodyl PO To bisacodyl (Laxative (bisacodyl)) 10 mg (2 x 5 mg) PO BEDTIME 60 tabs 3RF Refilled simethicone after meals 180 mg PO QID 120 caps 6RF 30 days Coding Level of Care Code Est Pt Level 3 (51465) Diagnoses Gastroesophageal reflux disease without esophagitis K21.9 Esophagitis presence: without esophagitis Constipation K59.00
== END 2023-01-12 15:28 | disposition home or self-care (01) ==
PROVIDERS: PCP Internal Medicine; Visit Provider Nurse Practitioner
DX: K21.9 Gastro-esophageal reflux disease without esophagitis (principal); K59.00 Constipation, unspecified
CPT/HCPCS: 99213

== ENCOUNTER → 2023-01-12 15:02 | Outpatient (BNVA) | payer OTHER, SELFPAY | PROVIDERS: PCP Internal Medicine; Visit Provider Nurse Practitioner | DX: K21.9 Gastro-esophageal reflux disease without esophagitis (principal); K59.00 Constipation, unspecified | CPT/HCPCS: 99212 ==

== ENCOUNTER 2023-01-20 10:38 | Outpatient (REF) | payer OTHER, SELFPAY ==
[2023-01-20 11:09] LABS: MANUAL DIFF FLAG NO
[2023-01-20 11:43] LABS: Basophils Percent Auto 0.6 % (0-2); Eosinophils Absolute Auto 0.1 X10*3/uL (0.0-0.4); Eosinophils Percent Auto 2.1 % (0-4); Hematocrit 38.6 % (37.0-47.0); Hemoglobin 12.1 g/dl (12.0-16.0); Lymphocytes Absolute Auto 0.7 X10*3/uL (1.2-4.9); Lymphocytes Percent Auto 21.3 % (20-40); Mean Corpuscular HGB Conc 31.3 g/dl (31.0-35.0); Mean Corpuscular Hemoglobin 27.1 pg (27.0-33.0); Mean Corpuscular Volume 86.4 fL (80.0-98.0); Mean Platelet Volume 10.1 fL (9.4-12.3); Monocytes Absolute Auto 0.3 X10*3/uL (0.1-1.2); Monocytes Percent Auto 9.6 % (2-11); Neutrophils Absolute Auto 2.2 x10*3/uL (2.0-8.3); Neutrophils Percent Auto 66.4 % (45-73); Platelet Count 184 X10*3/uL (160-400); Red Blood Count 4.47 X10*6/uL (4.20-5.50); Red Cell Distribution Width 13.3 % (11.0-16.0); White Blood Count 3.3 X10*3/uL (4.8-10.8)
[2023-01-20 13:09] LABS: Alanine Aminotransferase 17 U/L (0-31); Albumin Level 4.2 g/dL (3.5-5.0); Alkaline Phosphatase 57 U/L (39-117); Anion Gap 12 (12-20); Aspartate Amino Transferase 20 U/L (5-31); Bilirubin Total 0.4 mg/dL (0.0-1.0); Blood Urea Nitrogen 12 mg/dL (9-16); Calcium 9.2 mg/dL (8.4-10.2); Carbon Dioxide 26 mmol/L (22-29); Chloride 107 mmol/L (96-108); Estimated Glomerular Filt Rate > 60; Glucose Random 72 mg/dL (60-115); Potassium 3.9 mmol/L (3.3-5.1); Sodium 141 mmol/L (135-145); Total Protein 7.4 g/dL (6.5-8.0)
== END 2023-01-20 10:39 | disposition home or self-care (01) ==
LOC: HO.LAB 10:38
PROVIDERS: PCP Internal Medicine Medical Oncology; Visit Provider Internal Medicine Medical Oncology
DX: D72.819 Decreased white blood cell count, unspecified (principal); D05.12 Intraductal carcinoma in situ of left breast; C50.911 Malignant neoplasm of unspecified site of right female breast
CPT/HCPCS: 36415; 80053; 85025

== ENCOUNTER 2023-02-02 11:59 | Outpatient (AMB) | payer OTHER, SELFPAY ==
[2023-02-02 12:14] VITALS: BP 120/74; PULSE 68; O2SAT 97; BMI 21.1
--- NOTE | 2023-02-02 12:14 | MHC.PC.OV ---
Vital Signs 02/02/23 12:14 Height 5 ft 3 in Weight 119 lb 0.4 oz BMI 21.1 BP 120/74 Blood Pressure Location Lt brachial Position Sitting Pulse 68 Pulse Source Pulse Oximeter Temp Source Skin Pulse Oximetry (%) 97 Oxygen Delivery Method Room Air Intake Visit Reasons: Pre-Op Cyst Hydrodistension Dr. Keita 03/06/23 Intake Note: Patient is here for a Pre-op for Hydrodistention scheduled with Dr. Keita on 03/06/23. Hand Mica Plate Layer Required: No Allergies Sulfa (Sulfonamide Antibiotics) Allergy (Severe, Verified 02/02/23 12:24) Itching codeine [CODEINE] Allergy (Intermediate, Verified 02/02/23 12:24) ITCHING hydroxychloroquine [From PLAQUENIL] Allergy (Intermediate, Verified 02/02/23 12:24) VOMITING morphine [MORPHINE] Allergy (Intermediate, Verified 02/02/23 12:24) ITCHING oxycodone [From PERCOCET] Allergy (Intermediate, Verified 02/02/23 12:24) ITCHING tramadol [From ULTRAM] Allergy (Intermediate, Verified 02/02/23 12:24) ITCHING levothyroxine sodium Allergy (Unknown, Verified 02/02/23 12:24) rash,throat closes bupropion [From Wellbutrin] Adverse Reaction (Severe, Verified 02/02/23 12:24) Seizure Corticosteroids (Glucocorticoids) [CORTICOSTEROIDS (GLUCOCORTICOIDS)] Adverse Reaction (Severe, Verified 02/02/23 12:24) DIFFICULTY BREATHING escitalopram [From Lexapro] Adverse Reaction (Severe, Verified 02/02/23 12:24) seizure meloxicam Adverse Reaction (Severe, Verified 02/02/23 12:24) Gastrointestinal Upset trazodone Adverse Reaction (Severe, Verified 02/02/23 12:24) Seizure acetaminophen [Percocet] Adverse Reaction (Unknown, Verified 02/02/23 12:24) Unknown duloxetine Adverse Reaction (Unknown, Verified 02/02/23 12:24) Unknown Medication List - Last Reconciled 02/02/23 by FABIAN Santa amitriptyline 50 mg PO BEDTIME 30 days ammonium lactate 12% 1 appl topical BID bisacodyl (Laxative (bisacodyl)) 10 mg (2 x 5 mg) PO BEDTIME bupropion HCl 150 mg PO Q OTHER DAY chlorhexidine gluconate 0.12% 15 mL PO BID cimetidine 800 mg PO BID clonazepam 1 mg PO BID dexlansoprazole (Dexilant) 60 mg PO DAILY 30 days diclofenac sodium 1% 2 grams topical QID gabapentin 300 mg PO TID ketorolac 10 mg PO Q8H PRN 7 days lidocaine 5% 1 patch topical DAILY PRN multivitamin with folic acid 400 mcg (Daily-Dottie (with folic acid)) 1 tab PO DAILY onabotulinumtoxinA (Botox) 200 units IM ondansetron mg PO orphenadrine citrate ER 100 mg PO BID 4 days oxcarbazepine 150 mg PO BID oxybutynin chloride ER 10 mg PO DAILY phenazopyridine (Pyridium) 100 mg PO Q8H PRN risperidone 0.25 mg PO BEDTIME simethicone 180 mg PO QID 30 days Synthroid (levothyroxine) 50 mcg PO DAILY 90 days NS trazodone 50 mg PO BEDTIME PRN Ventolin HFA 90 mcg/actuation (albuterol sulfate) 2 puffs inhalation Q6H PRN NS Tobacco use date assessed: 02/02/23 Dental Screening Dental Screen Date: 02/02/23 Did you have a dental visit in the last 12 months?: Yes Did you have a dental problem in the last 6 months where you did not have access to dental care?: No Was dental information given to patient?: Patient has dentist HPI Pre-Op Cyst Hydrodistension Dr. Keita 03/06/23 HPI Details Patient is a 54-year-old female who presents today for preop clearance. Patient of Dr. Davila. Surgery: Cystoscopy hydrodistention - patient reports urinary urgency, frequency, and ongoing lower abdominal pain Date: 03/06/2023 Surgeon: Dr. Keita Location: [facility] Anaesthesia: General. Patient reports history of general anesthesia in the past that she tolerated well, except patient reports she feels shaky and cold after anaesthesia. Patient denies history of perioperative hypothermia or blood clotting disorders. She is not on anticoagulation. Medical history significant for SLE, hypothyroidism, polyarthralgia, history of breast cancer, insomnia, bipolar depression, anxiety, GERD, seropositive rheumatoid arthritis, osteoporosis fibromyalgia, anemia, bilateral sciatica, interstitial cystitis, PTSD, and constipation among others. Patient denies shortness of breath or chest pain. Patient is a Khmer-speaking and her daughter Deepti was helping with interpretation. [facility] Medical History COVID-19 Constipation Estrogen receptor positive status [ER+] Ductal carcinoma in situ (DCIS) of left breast Autoimmune disorder PTSD (post-traumatic stress disorder) Insomnia Bilateral knee pain Fibromyalgia Schatzki's ring Rheumatoid arthritis Small bowel motility disorder Vitamin D deficiency Hypothyroidism Osteoporosis Raynaud's disease without gangrene Lupus (systemic lupus erythematosus) Seropositive rheumatoid arthritis Bipolar depression Anxiety Primary insomnia History of breast cancer Polyarthralgia Leukopenia Acquired hypothyroidism Systemic lupus erythematosus Gingivitis Left temporomandibular joint disorder, unspecified Surgical History History of esophagogastroduodenoscopy (EGD) Hx of colonoscopy History of bilateral mastectomy History of total abdominal hysterectomy and bilateral salpingo-oophorectomy History of cholecystectomy History of tubal ligation History of section Family History Father Hypertension Prostate cancer Mother Breast cancer Hypertension Asthma Maternal Aunt Breast cancer Maternal Grandmother Colon cancer Maternal Aunt Breast cancer Social History Household Members: Children Household Members Other:: 2 daughters Housing: House Do you presently have visiting nurse or other home services: No Alcohol intake: never Patient Tobacco Use Status: Never used Tobacco e-Cigarette/Vaping Use: Never Used Second Hand Smoke Exposure: No Advance Directives Date on File: 08/12/20 service: No Current occupational status: disabled Sexual orientation: Straight/Heterosexual Cognitive needs: Yes (cane) Hearing needs: No Vision needs: Yes (Glasses) Female Reproductive History Menstrual Age of Menarche: 10 Questionnaire Thrive Questionnaire Date Thrive assessed: 12/19/22 AUDIT C Alcohol Use Questionnaire (AUDIT-C) 1. How often do you have a drink containing alcohol?: Never 3. How often do you have six or more drinks on one occasion?: Never Total Score: 0 Score Reviewed/Action Taken: No MOSHE-7 AMB Questionnaire MOSHE-7 Date MOSHE - 7 assessed: 12/19/22 Source: Developed by Drs. Sae L. Stephy Barrera, Michele Li and colleagues, with an educational coleman from [employer]. Review of Systems Const Denies body aches, Denies chills, Denies fever(s) and Denies headache(s) Eyes Denies change in vision ENT Denies dizziness, Denies otalgia, Denies headache(s), Denies nasal discharge, Denies sinus pain and Denies sore throat Card Denies chest pain, Denies edema, Denies lightheadedness and Denies dyspnea Resp Denies cough, Denies dyspnea and Denies wheezing GI Reports abdominal pain, Denies constipation, Denies diarrhea, Denies nausea and Denies vomiting Reports as per HPI, Denies hematuria, Denies dysuria, Denies flank pain and Reports urinary urgency Musc Denies myalgias Skin/Breast Denies rash Neuro Denies dizziness and Denies headache(s) Aller/Immun Denies wheezing Physical exam (Primary Care) Vital Signs: Last Vital Signs Pulse 68 02/02/23 12:14 BP 120/74 02/02/23 12:14 Pulse Ox 97 02/02/23 12:14 Oxygen Delivery Method Room Air 02/02/23 12:14 BMI result Body Mass Index 21.1 Tobacco/Smoking Status: Tobacco use Status Tobacco use date assessed 02/02/23 02/02/23 12:21 Patient Tobacco Use Status Never used Tobacco 02/02/23 12:21 e-Cigarette/Vaping Use Never Used 02/02/23 12:21 Thrive Assessment: Date of Thrive Assessment Date Thrive assessed 12/19/22 02/02/23 12:21 Const General: cooperative and no acute distress Orientation/consciousness: patient oriented x3 HENMT Head: Yes normocephalic and Yes atraumatic Ears: TM's normal bilaterally Face and sinus: Yes sinuses nontender Mouth: oropharynx normal and moist mucous membranes Throat: Yes posterior oropharynx normal Eyes General: appearance normal, both eyes and all related structures Pupils: Equal, round and reactive pupils present EOM: EOMs intact bilaterally Neck Neck: Yes normal visual inspection, Yes full ROM and Yes no lymphadenopathy Thyroid: Thyroid normal Resp Effort & Inspection: normal respiratory effort and able to speak in complete sentences Auscultation: clear to auscultation bilaterally, no crackles, no rales, no rhonchi and no wheezes Cardio Rate: regular rate Rhythm: regular rhythm Heart sounds: S1 normal heart sound present, S2 normal heart sound present and no murmurs GI Palpation (GI): Soft to palpation, not firm, Tenderness to palpation present (GI) suprapubicly; with no rebound tenderness, no guarding, not rigid and no hepatosplenomegaly Auscultation: normal bowel sounds General: No CVA tenderness Back/Spine/Pelvis Back: No CVA tenderness Skin General skin exam: no rashes or lesions noted Neuro General: patient oriented x3 Cranial nerves: Yes Equal, round and reactive pupils present Gait exam (Neuro): Normal gait present Extrem General: Yes full ROM and No edema Results Reviewed Results Reviewed: Laboratory Tests 02/02/23 13:08 WBC 3.5 L RBC 4.33 Hgb 12.0 Hct 37.4 MCV 86.4 MCH 27.7 MCHC 32.1 RDW 13.2 Plt Count 192 MPV 10.4 Absolute Nucleated RBC 0.000 Nucleated RBC % (auto) 0.0 PT 11.0 L INR 0.9 Sodium 142 Potassium 4.0 Chloride 104 Carbon Dioxide 26 Anion Gap 16 BUN 18 H Creatinine 0.62 Estim Creat Clear Calc Not Reportable Estimated GFR > 60 Random Glucose 77 Calcium 9.6 TSH 0.42 Assessment and Plan Assessment & Plan (1) Preoperative clearance: Code(s): Z01.818 - Encounter for other preprocedural examination Plan: METs > 4; RCRI Class 1 cardiovascular risk 0.4% for an intermediate risk surgery (recent blood work 01/2023) Regarding preop clearance, the patient is at acceptable risk for proposed surgery. Reviewed with the patient that no surgery is completely free of risk and that this examination is to assist the surgeon in reviewing informed consent. Postop care including DVT prophylaxis per surgeon. Patient is cleared for surgery. Patient is to hold NSAIDs 5 days before surgery. 02/02/2023 EKG with no acute findings, reviewed by Dr. Busch. Ordering Physician: Mercedes Lockett Date of Service: 02/02/23 Procedure(s): ECG 12 lead EKG Accession Number(s): [id number] cc: Mercedes Lockett~ Test Reason : PREOP Blood Pressure : / mmHG Vent. Rate : 068 BPM Atrial Rate : 068 BPM P-R Int : 152 ms QRS Dur : 074 ms QT Int : 402 ms P-R-T Axes : 064 057 072 degrees QTc Int : 427 ms Normal sinus rhythm Normal ECG When compared with ECG of 02-SEP-2022 11:16, No significant change was found Referred By: Mercedes Lockett Electronically Signed By:SAE SORENSON (2) Interstitial cystitis: Code(s): N30.10 - Interstitial cystitis (chronic) without hematuria Plan: Surgery: Cystoscopy hydrodistention - patient reports urinary urgency, frequency, and ongoing lower abdominal pain Date: 03/06/2023 Surgeon: Dr. Keita Location: [facility] Orders: Orders TSH reflex Free T4 02/02/23 Z.818 - Encounter for other preprocedural examination Complete Blood Count no Diff 02/02/23 Z.818 - Encounter for other preprocedural examination Basic Metabolic Panel 02/02/23 Z.818 - Encounter for other preprocedural examination ECG 12 lead EKG 02/02/23 Z.818 - Encounter for other preprocedural examination Prothrombin Time INR 02/02/23 Z.818 - Encounter for other preprocedural examination Coding Level of Care Code Est Pt Level 3 (57887) Diagnoses Preoperative clearance Z.818 Interstitial cystitis N30.10
== END 2023-02-02 13:14 | disposition home or self-care (01) ==
PROVIDERS: PCP Internal Medicine; Visit Provider Nurse Practitioner Family
DX: Z01.818 Encounter for other preprocedural examination (principal); N30.10 Interstitial cystitis (chronic) without hematuria
CPT/HCPCS: 99213

== ENCOUNTER 2023-02-02 12:45 | Outpatient (REF) | payer OTHER, SELFPAY ==
[2023-02-02 14:58] LABS: Anion Gap 16 (12-20); Blood Urea Nitrogen 18 mg/dL (9-16); Calcium 9.6 mg/dL (8.4-10.2); Carbon Dioxide 26 mmol/L (22-29); Chloride 104 mmol/L (96-108); Estimated Glomerular Filt Rate > 60; Glucose Random 77 mg/dL (60-115); Sodium 142 mmol/L (135-145)
[2023-02-02 15:16] LABS: TSH reflex Free T4 0.42 uIU/mL (0.32-4.0)
== END 2023-02-02 12:46 | disposition home or self-care (01) ==
LOC: HO.LAB 12:45
PROVIDERS: Visit Provider Nurse Practitioner Family
DX: Z01.818 Encounter for other preprocedural examination (principal)
CPT/HCPCS: 36415; 80048; 84443; 85027; 85610; 93005

== ENCOUNTER 2023-02-07 15:45 | Outpatient (AMB) | payer OTHER, SELFPAY ==
--- NOTE | 2023-02-07 15:49 | MHC.OFFVIS ---
Intake Vital Signs 02/07/23 15:50 Height 5 ft 3 in Weight 120 lb 2.431 oz BMI 21.3 BP 110/70 Blood Pressure Location Lt brachial Position Sitting Pulse 80 Pulse Source Pulse Oximeter Intake Visit Reasons: f/u osteoporosis, appt confirmed Intake Note: Patient present for Osteoporosis follow up visit. Peeler Operator Required: No Accompanied by: Daughter Allergies Sulfa (Sulfonamide Antibiotics) Allergy (Severe, Verified 02/02/23 12:24) Itching codeine [CODEINE] Allergy (Intermediate, Verified 02/02/23 12:24) ITCHING hydroxychloroquine [From PLAQUENIL] Allergy (Intermediate, Verified 02/02/23 12:24) VOMITING morphine [MORPHINE] Allergy (Intermediate, Verified 02/02/23 12:24) ITCHING oxycodone [From PERCOCET] Allergy (Intermediate, Verified 02/02/23 12:24) ITCHING tramadol [From ULTRAM] Allergy (Intermediate, Verified 02/02/23 12:24) ITCHING levothyroxine sodium Allergy (Unknown, Verified 02/02/23 12:24) rash,throat closes bupropion [From Wellbutrin] Adverse Reaction (Severe, Verified 02/02/23 12:24) Seizure Corticosteroids (Glucocorticoids) [CORTICOSTEROIDS (GLUCOCORTICOIDS)] Adverse Reaction (Severe, Verified 02/02/23 12:24) DIFFICULTY BREATHING escitalopram [From Lexapro] Adverse Reaction (Severe, Verified 02/02/23 12:24) seizure meloxicam Adverse Reaction (Severe, Verified 02/02/23 12:24) Gastrointestinal Upset trazodone Adverse Reaction (Severe, Verified 02/02/23 12:24) Seizure tadalafil [From Cialis] Adverse Reaction (Intermediate, Unverified 02/07/23 15:57) Nausea and Vomiting acetaminophen [Percocet] Adverse Reaction (Unknown, Verified 02/02/23 12:24) Unknown duloxetine Adverse Reaction (Unknown, Verified 02/02/23 12:24) Unknown Medication List - Last Reconciled 02/07/23 by Som Brandon MD amitriptyline 50 mg PO BEDTIME 30 days ammonium lactate 12% 1 appl topical BID bisacodyl (Laxative (bisacodyl)) 10 mg (2 x 5 mg) PO BEDTIME bupropion HCl 150 mg PO Q OTHER DAY chlorhexidine gluconate 0.12% 15 mL PO BID cimetidine 800 mg PO BID clonazepam 1 mg PO BID dexlansoprazole (Dexilant) 60 mg PO DAILY 30 days diclofenac sodium 1% 2 grams topical QID gabapentin 300 mg PO TID ketorolac 10 mg PO Q8H PRN 7 days lidocaine 5% 1 patch topical DAILY PRN multivitamin with folic acid 400 mcg (Daily-Dottie (with folic acid)) 1 tab PO DAILY onabotulinumtoxinA (Botox) 200 units IM ondansetron mg PO orphenadrine citrate ER 100 mg PO BID 4 days oxcarbazepine 150 mg PO BID oxybutynin chloride ER 10 mg PO DAILY phenazopyridine (Pyridium) 100 mg PO Q8H PRN risperidone 0.25 mg PO BEDTIME simethicone 180 mg PO QID 30 days Synthroid (levothyroxine) 50 mcg PO DAILY 90 days NS trazodone 50 mg PO BEDTIME PRN Ventolin HFA 90 mcg/actuation (albuterol sulfate) 2 puffs inhalation Q6H PRN NS HPI HPI Comments History of Present Illness Details 56-year-old female, today for follow-up visit, for evaluation of hypothyroidism and osteoporosis . Recetly fell forward and fx humerus in 03/2021 Has a subsequent fx of L shoulder . Shoulder fx happened after waking up felt a pop. . DEXA showed nl bone density She was diagnosed with breast cancer in 2010 she spent 7 years on aromatase inhibitors. No radiotherapy given. She took alendronate 70 mg weekly for 3 years. Medication was stopped the medication last year. She has lupus and rheumatoid arthritis she has never been on prednisone long-term she has adverse reactions to steroids. She has past medical history of breast cancer, SLE, rheumatoid arthritis, hypothyroidism, vitamin-D deficiency and depression, fibromyalgia. She denies prior fragilityb fractures, positive GERD on chronic PPI use, she has positive FH of osteoporosis in her mother, nephrolithiasis, never smoker, never on anti seizures medications. Bisphosphonates use: Alendronate 70 mg weekly since 2015. Stopped in May 2019. Calcium intake: 500 mg bid. Vitamin D: 100,000 international units weekly. Herbal medications. None. A complete secondary workup including workup for mastocytosis, Ely's, hypercalciuria, multiple myeloma was completely normal She reports she was diagnosed with hypothyroidism a 20 years ago. She has negative antibodies. She is currently on Synthroid 50 mcg daily. She reports she has been on the same dose for 20 years. She is 100% compliance with LT4, she takes Prilosec 1 hour after Synthroid. She has cold intolerance, she denies heat intolerance, she denies weigth loss or gain, is postmenopausal , denies diarrhea, positive constipation, positive imsomnia but results with treatment, positive fatigue, denies dry skin, denies dyspnea, dysphonia, tremors, palpitations, irritability, anxiety. She has a swallowing problem, she reports she has choking sensation with swallowing solid. She had normal EGD. The barium swallowing study was not completed due to choking with barium. Family History: Her sister has thyroid nodules. 03/13/19 US thyroid Right Thyroid Lobe: 4.4 x 1.3 x 1.3 cm, volume 3.4 mL. Parenchyma: The gland echotexture is homogeneous. Thyroid vascularity is increased. Left Thyroid Lobe: 3.7 x 1.0 x 1.3 cm, volume 2.5 mL. Parenchyma: The gland echotexture is homogeneous. Thyroid vascularity is increased. Isthmus: 0.3 cm in maximum AP dimension. RIGHT THYROID LOBE: There are 2 nodules seen. 1. Location: Mid/lower pole. Size: 0.1 x 0.1 x 0.2 cm. Nodule characteristics: Well-circumscribed hypoechoic cyst with a punctate echogenic focus. No calcification or intranodular flow. This has the appearance of a colloid cyst. 2. Location: Lower pole. Size: 0.2 x 0.1 x 0.2 cm. Nodule characteristics: Well-circumscribed anechoic simple cyst with no microcalcification or intranodular flow. ISTHMUS: No nodules. LEFT THYROID LOBE: No nodules. NODES: No lymphadenopathy is seen in the tissue surrounding the thyroid gland. Trended TSH from 2119-4393 range 0.39 to 2.44 mIU/mL. 05/02/2019 DEXA scan FINDINGS: AP SPINE L1-L4: BMD 1.118 g/cm2, Z-score 0.7, T-score -0.5, normal. LEFT FEMUR, NECK: BMD 0.958 g/cm2, Z-score 0.7, T-score -0.6, normal. LEFT FEMUR, TOTAL: BMD 1.017 g/cm2, Z-score 1.0, T-score 0.1, normal. Laboratory Tests 11/25/19 06/01/20 11:03 12:58 Sodium 143 Potassium 4.7 Creatinine 0.66 Estimated GFR > 60 Calcium 8.7 D Alkaline Phosphata se 40 Albumin 4.2 N-Telopeptide X-li nked 18 25-OH Vitamin D To carolann 82.9 TSH 0.39 Free T4 1.22 currently on calcium and vitamin-D supplementation [facility] Medical History COVID-19 Constipation Estrogen receptor positive status [ER+] Ductal carcinoma in situ (DCIS) of left breast Autoimmune disorder PTSD (post-traumatic stress disorder) Insomnia Bilateral knee pain Fibromyalgia Schatzki's ring Rheumatoid arthritis Small bowel motility disorder Vitamin D deficiency Hypothyroidism Osteoporosis Raynaud's disease without gangrene Lupus (systemic lupus erythematosus) Seropositive rheumatoid arthritis Bipolar depression Anxiety Primary insomnia History of breast cancer Polyarthralgia Leukopenia Acquired hypothyroidism Systemic lupus erythematosus Gingivitis Left temporomandibular joint disorder, unspecified Surgical History History of esophagogastroduodenoscopy (EGD) Hx of colonoscopy History of bilateral mastectomy History of total abdominal hysterectomy and bilateral salpingo-oophorectomy History of cholecystectomy History of tubal ligation History of section Family History Father Hypertension Prostate cancer Mother Breast cancer Hypertension Asthma Maternal Aunt Breast cancer Maternal Grandmother Colon cancer Maternal Aunt Breast cancer Social History Household Members: Children Household Members Other:: 2 daughters Housing: House Do you presently have visiting nurse or other home services: No Alcohol intake: current Alcohol intake frequency: does not drink Patient Tobacco Use Status: Never used Tobacco e-Cigarette/Vaping Use: Never Used Second Hand Smoke Exposure: No Advance Directives Date on File: 08/12/20 service: No Current occupational status: disabled Sexual orientation: Straight/Heterosexual Cognitive needs: Yes (cane) Hearing needs: No Vision needs: Yes (Glasses) Female Reproductive History Menstrual Age of Menarche: 10 Physical Exam Vital Signs: Last Vital Signs Pulse 80 02/07/23 15:50 BP 110/70 02/07/23 15:50 BMI result Body Mass Index 21.3 Assessment & Plan Assessment & Plan (1) Hypothyroidism: Code(s): E03.9 - Hypothyroidism, unspecified Plan: This is a 56-year-old female with a history of hypothyroidism being treated with 50 mcg levothyroxine appears to be clinically and biochemically euthyroid. Plan is to continue the current therapy. (2) Osteoporosis: Code(s): M81.0 - Age-related osteoporosis without current pathological fracture Qualifiers: Osteoporosis type: unspecified Presence of current pathological fracture: without current pathological fracture Qualified Code(s): M81.0 - Age-related osteoporosis without current pathological fracture Plan: Multiple risk factors for osteoporosis with normal DEXA and completed a course of multiple years of bisphosphonate with suppressed but treading upward NTX. She recently sustained a fragility fracture of the shoulder. Concurrently taking calcium and vitamin-D supplementation. F/U DeXA was nl . Mal[place] syndrome, multiple myeloma and systemic mastocytosis and hypophosphatemia have been ruled out Plan is to continue calcium and vitamin-D supplementation. Will check urine NTX and if elevated may consider using an anti resorptive agent like resumption of bisphosphonate or Prolia . . . I will atempt to get the records regarding the recent fx from [facility]. I may arrange a second opinion with one of the bone units [facility]. Orders: Orders Collagen Crosslinks NTX Today M81.0 - Age-related osteoporosis without current pathological fracture Referrals Endocrinology Referral M81.0 - Age-related osteoporosis without current pathological fracture Medications: New calcium citrate 500 mg (2 x 250 mg calcium) PO BID 60 tabs 5RF cholecalciferol (vitamin D3) 50 mcg PO DAILY 30 caps 5RF Coding Level of Care Code Est Pt Level 3 (06850) Diagnoses Hypothyroidism E03.9 Osteoporosis without current pathological fracture, unspecified osteoporosis type M81.0 Osteoporosis type: unspecified Presence of current pathological fracture: without current pathological fracture
[2023-02-07 15:50] VITALS: BP 110/70; PULSE 80; BMI 21.3
== END 2023-02-07 16:40 | disposition home or self-care (01) ==
PROVIDERS: PCP Internal Medicine Medical Oncology; Visit Provider Internal Medicine Endocrinology, Diabetes & Metabolism
DX: E03.9 Hypothyroidism, unspecified (principal); M81.0 Age-related osteoporosis without current pathological fracture
CPT/HCPCS: 99213

== ENCOUNTER → 2023-02-07 15:45 | Outpatient (BNVA) | payer OTHER, SELFPAY | PROVIDERS: Visit Provider Internal Medicine Endocrinology, Diabetes & Metabolism | DX: E03.9 Hypothyroidism, unspecified (principal); M81.0 Age-related osteoporosis without current pathological fracture | CPT/HCPCS: 99212 ==

== ENCOUNTER 2023-02-28 09:39 | Outpatient (REF) | payer OTHER, SELFPAY ==
[2023-03-08 09:03] LABS: N-Telopeptide 66 (see note); NTXCreaRU 139 mg/dL (20-275)
== END 2023-02-28 09:40 | disposition home or self-care (01) ==
LOC: HO.LAB 09:39
PROVIDERS: Absent Provider Internal Medicine Endocrinology, Diabetes & Metabolism; PCP Internal Medicine; Visit Provider Internal Medicine
DX: M81.0 Age-related osteoporosis without current pathological fracture (principal)
CPT/HCPCS: 82523

== ENCOUNTER 2023-03-06 06:11 | Day surgery (SDC) | payer OTHER, SELFPAY ==
[2023-03-02 10:43] VITALS: BMI 21.1
--- NOTE | 2023-03-03 09:05 | HO.ANESPROP2 ---
Documented by User: Henny Alberto NP 03/03/23 09:07 HPI - Anesthesia Eval Consult details Narrative: 57yo F for Cystoscopy Hydrodistention of Bladder Medically optimized per PCP *Multiple Allergies* PMFSH Active Problems Active Problems: All Active Problems (Updated 02/02/23 @ 12:31 by FABIAN Santa) Preoperative clearance (Acute) Lower urinary tract symptoms (Acute) Bilateral hand pain (Acute) Positive sm/[employer] antibody (Acute) Osteoarthritis of lumbar spine (Acute) Osteoarthritis of knees, bilateral (Acute) Interstitial cystitis (Acute) Urinary frequency (Acute) Recurrent cystitis (Acute) Bilateral carpal tunnel syndrome (Acute) Dry mouth and eyes (Acute) Dystonia (Acute) Bilateral sciatica (Acute) Urticaria (Acute) Seborrhea capitis in adult (Acute) Family history of polyps in the colon (Acute) Elevated BP without diagnosis of hypertension (Acute) Fracture of neck of left humerus (Acute) Humeral head fracture (Acute) Mild depression (Acute) Anemia (Acute) Dyspnea (Acute) Tubular adenoma of colon (Acute) Chronic gastritis (Acute) Small bowel motility disorder (Acute) GERD (gastroesophageal reflux disease) (Acute) Constipation (Acute) PTSD (post-traumatic stress disorder) (Acute) Insomnia (Acute) Fibromyalgia (Acute) Vitamin D deficiency (Acute) Hypothyroidism (Acute) Osteoporosis (Acute) Raynaud's disease without gangrene (Acute) Lupus (systemic lupus erythematosus) (Acute) Seropositive rheumatoid arthritis (Acute) Bipolar depression (Acute) Anxiety (Acute) Primary insomnia (Acute) History of breast cancer (Acute) Polyarthralgia (Acute) Leukopenia (Acute) Acquired hypothyroidism (Acute) Systemic lupus erythematosus (Acute) Gingivitis (Acute) Left temporomandibular joint disorder, unspecified (Acute) Past Medical History Medical History Estrogen receptor positive status [ER+] Ductal carcinoma in situ (DCIS) of left breast Autoimmune disorder PTSD (post-traumatic stress disorder) COVID-19 Insomnia Bilateral knee pain Fibromyalgia Schatzki's ring Rheumatoid arthritis Small bowel motility disorder Vitamin D deficiency Hypothyroidism Osteoporosis Raynaud's disease without gangrene Lupus (systemic lupus erythematosus) Seropositive rheumatoid arthritis Bipolar depression Anxiety Primary insomnia History of breast cancer Constipation Polyarthralgia Leukopenia Acquired hypothyroidism Systemic lupus erythematosus Gingivitis Left temporomandibular joint disorder, unspecified Family History Family History Father Hypertension Prostate cancer Mother Breast cancer Hypertension Asthma Maternal Aunt Breast cancer Maternal Grandmother Colon cancer Maternal Aunt Breast cancer Family history of problems with anesthesia: No Surgical History Surgical History History of esophagogastroduodenoscopy (EGD) Hx of colonoscopy History of bilateral mastectomy History of total abdominal hysterectomy and bilateral salpingo-oophorectomy History of cholecystectomy History of tubal ligation History of section History of Problems with Anesthesia: No Social History Social History Household Members: Children Household Members Other:: 2 daughters Housing: House Do you presently have visiting nurse or other home services: No Alcohol intake: current Alcohol intake frequency: does not drink Patient Tobacco Use Status: Never used Tobacco e-Cigarette/Vaping Use: Never Used Second Hand Smoke Exposure: No Use of substances other than those prescribed or required for medical reasons: No Are you DNR?: No Advance Directives: No Advance Directives Information Provided: Yes Advance Directives Date on File: 08/12/20 service: No Current occupational status: disabled Sexual orientation: Straight/Heterosexual Cognitive needs: Yes (cane) Hearing needs: No Vision needs: Yes (Glasses) Meds Allergies Allergy/AdvReac Type Severity Reaction Status Date / Time Sulfa (Sulfonamide Allergy Severe Itching Verified 03/06/23 06:24 Antibiotics) codeine [CODEINE] Allergy Intermediate ITCHING Verified 03/06/23 06:24 hydroxychloroquine Allergy Intermediate VOMITING Verified 03/06/23 06:24 [From PLAQUENIL] morphine [MORPHINE] Allergy Intermediate ITCHING Verified 03/06/23 06:24 oxycodone [From PERCOCET] Allergy Intermediate ITCHING Verified 03/06/23 06:24 tramadol [From ULTRAM] Allergy Intermediate ITCHING Verified 03/06/23 06:24 levothyroxine sodium Allergy Unknown rash,throat Verified 03/06/23 06:24 closes bupropion [From Wellbutrin] AdvReac Severe Seizure Verified 03/06/23 06:24 Corticosteroids AdvReac Severe DIFFICULTY Verified 03/06/23 06:24 (Glucocorticoids) BREATHING [CORTICOSTEROIDS (GLUCOCORTICOIDS)] escitalopram [From Lexapro] AdvReac Severe seizure Verified 03/06/23 06:24 meloxicam AdvReac Severe Gastrointestinal Verified 03/06/23 06:24 Upset trazodone AdvReac Severe Seizure Verified 03/06/23 06:24 tadalafil [From Cialis] AdvReac Intermediate Nausea and Verified 03/06/23 06:24 Vomiting acetaminophen [Percocet] AdvReac Unknown Unknown Verified 03/06/23 06:24 duloxetine AdvReac Unknown Unknown Verified 03/06/23 06:24 Home Medications Medication Instructions Recorded Confirmed Last Taken Type clonazepam 1 mg tablet 1 mg PO BID 08/27/22 03/06/23 03/06/23 History gabapentin 300 mg capsule 300 mg PO TID 08/27/22 03/02/23 Unknown History ammonium lactate 12 % topical cream 1 appl topical BID 09/14/22 03/02/23 Unknown History multivitamin with folic acid 400 1 tab PO DAILY 09/14/22 03/02/23 Unknown History mcg tablet (Daily-Dottie (with folic acid)) ondansetron 4 mg disintegrating mg PO 09/14/22 02/02/23 Unknown History tablet onabotulinumtoxinA 200 unit 200 unit IM 11/29/22 02/02/23 Unknown History solution for injection (Botox) trazodone 50 mg tablet 50 mg PO BEDTIME PRN Insomnia 11/29/22 03/02/23 Unknown History chlorhexidine gluconate 0.12 % 15 ml PO BID 12/01/22 03/02/23 Unknown History mouthwash lidocaine 5 % topical patch 1 patch topical DAILY PRN Pain 12/01/22 03/02/23 Unknown History Exam Exam Date and Time: March 03, 2023 0905 Height,Weight and Vital Signs: Height 5 ft 3 in Weight 53.977 kg Pertinent Lab Results Pertinent Lab Results: Laboratory Tests 02/02/23 13:08 WBC 3.5 L Hgb 12.0 Hct 37.4 Plt Count 192 Sodium 142 Potassium 4.0 Chloride 104 Carbon Dioxide 26 BUN 18 H Creatinine 0.62 Narrative Narrative: EKG 01/2023 Vent. Rate : 068 BPM Atrial Rate : 068 BPM P-R Int : 152 ms QRS Dur : 074 ms QT Int : 402 ms P-R-T Axes : 064 057 072 degrees QTc Int : 427 ms Normal sinus rhythm Normal ECG When compared with ECG of 02-SEP-2022 11:16, No significant change was found Assessment and Plan Assessment Anesthesia Assessment: Chart Reviewed Final Anesthetic Review Family History of Problems with Anesthesia: No History of Problems with Anesthesia: No Documented by User: Maldonado Martin MD 03/06/23 07:38 PMFSH Past Medical History Medical History Estrogen receptor positive status [ER+] Ductal carcinoma in situ (DCIS) of left breast Autoimmune disorder PTSD (post-traumatic stress disorder) COVID-19 Insomnia Bilateral knee pain Fibromyalgia Schatzki's ring Rheumatoid arthritis Small bowel motility disorder Vitamin D deficiency Hypothyroidism Osteoporosis Raynaud's disease without gangrene Lupus (systemic lupus erythematosus) Seropositive rheumatoid arthritis Bipolar depression Anxiety Primary insomnia History of breast cancer Constipation Polyarthralgia Leukopenia Acquired hypothyroidism Systemic lupus erythematosus Gingivitis Left temporomandibular joint disorder, unspecified Family History Family History Father Hypertension Prostate cancer Mother Breast cancer Hypertension Asthma Maternal Aunt Breast cancer Maternal Grandmother Colon cancer Maternal Aunt Breast cancer Surgical History Surgical History History of esophagogastroduodenoscopy (EGD) Hx of colonoscopy History of bilateral mastectomy History of total abdominal hysterectomy and bilateral salpingo-oophorectomy History of cholecystectomy History of tubal ligation History of section Social History Social History Household Members: Children Household Members Other:: 2 daughters Housing: House Do you presently have visiting nurse or other home services: No Alcohol intake: current Alcohol intake frequency: does not drink Patient Tobacco Use Status: Never used Tobacco e-Cigarette/Vaping Use: Never Used Second Hand Smoke Exposure: No Use of substances other than those prescribed or required for medical reasons: No Are you DNR?: No Advance Directives: No Advance Directives Information Provided: Yes Advance Directives Date on File: 08/12/20 service: No Current occupational status: disabled Sexual orientation: Straight/Heterosexual Cognitive needs: Yes (cane) Hearing needs: No Vision needs: Yes (Glasses) Meds Allergies Allergy/AdvReac Type Severity Reaction Status Date / Time Sulfa (Sulfonamide Allergy Severe Itching Verified 03/06/23 06:24 Antibiotics) codeine [CODEINE] Allergy Intermediate ITCHING Verified 03/06/23 06:24 hydroxychloroquine Allergy Intermediate VOMITING Verified 03/06/23 06:24 [From PLAQUENIL] morphine [MORPHINE] Allergy Intermediate ITCHING Verified 03/06/23 06:24 oxycodone [From PERCOCET] Allergy Intermediate ITCHING Verified 03/06/23 06:24 tramadol [From ULTRAM] Allergy Intermediate ITCHING Verified 03/06/23 06:24 levothyroxine sodium Allergy Unknown rash,throat Verified 03/06/23 06:24 closes bupropion [From Wellbutrin] AdvReac Severe Seizure Verified 03/06/23 06:24 Corticosteroids AdvReac Severe DIFFICULTY Verified 03/06/23 06:24 (Glucocorticoids) BREATHING [CORTICOSTEROIDS (GLUCOCORTICOIDS)] escitalopram [From Lexapro] AdvReac Severe seizure Verified 03/06/23 06:24 meloxicam AdvReac Severe Gastrointestinal Verified 03/06/23 06:24 Upset trazodone AdvReac Severe Seizure Verified 03/06/23 06:24 tadalafil [From Cialis] AdvReac Intermediate Nausea and Verified 03/06/23 06:24 Vomiting acetaminophen [Percocet] AdvReac Unknown Unknown Verified 03/06/23 06:24 duloxetine AdvReac Unknown Unknown Verified 03/06/23 06:24 Home Medications Medication Instructions Recorded Confirmed Last Taken Type clonazepam 1 mg tablet 1 mg PO BID 08/27/22 03/06/23 03/06/23 History gabapentin 300 mg capsule 300 mg PO TID 08/27/22 03/02/23 Unknown History ammonium lactate 12 % topical cream 1 appl topical BID 09/14/22 03/02/23 Unknown History multivitamin with folic acid 400 1 tab PO DAILY 09/14/22 03/02/23 Unknown History mcg tablet (Daily-Dottie (with folic acid)) ondansetron 4 mg disintegrating mg PO 09/14/22 02/02/23 Unknown History tablet onabotulinumtoxinA 200 unit 200 unit IM 11/29/22 02/02/23 Unknown History solution for injection (Botox) trazodone 50 mg tablet 50 mg PO BEDTIME PRN Insomnia 11/29/22 03/02/23 Unknown History chlorhexidine gluconate 0.12 % 15 ml PO BID 12/01/22 03/02/23 Unknown History mouthwash lidocaine 5 % topical patch 1 patch topical DAILY PRN Pain 12/01/22 03/02/23 Unknown History Exam Airway Mallampati Class: I TM Dist: >3cm Neck ROM: Full Loose/Missing/Broken Teeth: No Heart: ok Lungs: ok Assessment and Plan Assessment Anesthesia Assessment: Anesthesia Plan Discussed Final Anesthetic Review NPO: Yes ASA Class: III Final Preanesthetic Review: No Changes in Pt Med Stat, Meds/Allgs Chart Reviewed, Consent Obtained/Reviewed and Anes Risks/Benef Reviewed Patient Risk: Intermediate Procedure Risk: Low Anesthetic Plan Anesthetic Plan: GA and Agree w/ Assess. and Plan Disposition: Standard PACU
[2023-03-06] VITALS (7 sets, daily range): BP systolic 103–130; BP diastolic 61–69; PULSE 67–79; RESP 12–17; TEMP 36.1–37.1; O2SAT 95–100; BMI 20.7
[2023-03-06] MEDS: Lactated Ringers 1,000 ML 100 ML IVCONT (06:45)
--- NOTE | 2023-03-06 07:27 | MHC.SHP ---
Pre-Procedural Eval Section A Date of Service: 03/06/23 The patient is an INPATIENT: No Changes since office visit: No Cold of Flu in the past 2 weeks, No New Medical Problems, No Changes in Medication and No Patient answered all questions The History & Physical has been completed within 30 days and I have reviewed it.: Yes Section B Chief Complaint: Interstitial cystitis (chronic) without hematuria Allergies: Allergies Allergy/AdvReac Type Severity Reaction Status Date / Time Sulfa (Sulfonamide Allergy Severe Itching Verified 03/06/23 06:24 Antibiotics) codeine [CODEINE] Allergy Intermediate ITCHING Verified 03/06/23 06:24 hydroxychloroquine Allergy Intermediate VOMITING Verified 03/06/23 06:24 [From PLAQUENIL] morphine [MORPHINE] Allergy Intermediate ITCHING Verified 03/06/23 06:24 oxycodone [From PERCOCET] Allergy Intermediate ITCHING Verified 03/06/23 06:24 tramadol [From ULTRAM] Allergy Intermediate ITCHING Verified 03/06/23 06:24 levothyroxine sodium Allergy Unknown rash,throat Verified 03/06/23 06:24 closes bupropion [From Wellbutrin] AdvReac Severe Seizure Verified 03/06/23 06:24 Corticosteroids AdvReac Severe DIFFICULTY Verified 03/06/23 06:24 (Glucocorticoids) BREATHING [CORTICOSTEROIDS (GLUCOCORTICOIDS)] escitalopram [From Lexapro] AdvReac Severe seizure Verified 03/06/23 06:24 meloxicam AdvReac Severe Gastrointestinal Verified 03/06/23 06:24 Upset trazodone AdvReac Severe Seizure Verified 03/06/23 06:24 tadalafil [From Cialis] AdvReac Intermediate Nausea and Verified 03/06/23 06:24 Vomiting acetaminophen [Percocet] AdvReac Unknown Unknown Verified 03/06/23 06:24 duloxetine AdvReac Unknown Unknown Verified 03/06/23 06:24 Plan Diagnosis/Plan: Unchanged (interstitial cystitis) I have reviewed the history and physical and performed a pertinent physical examination on my patient. No changes have occurred unless specified. Time Spent With Patient Time: Total time managing care of this patient today ____ minutes.
[2023-03-06] MEDS: levoFLOXacin 500 MG TABLET PO (07:40)
--- NOTE | 2023-03-06 08:24 | P.OP_ITS ---
Operative Note Operative Note Date of Service: 03/06/23 Narrative: PreOperative Diagnosis: Interstitial cystitis with pelvic pain Post Operative Diagnosis: Interstitial cystitis with pelvic pain Procedure: Hydrodistention Surgeon: Dr Randall Keita Anesthesia: General Indications for procedure: IC symptoms Procedure: After informed consent was verified the patient was brought to the operating room and placed in a supine position. Anesthesia was administered per protocol. The patient was placed in a modified dorsal lithotomy position and prepped and draped in sterile fashion. Safety pause time-out was observed. Antibiotics being given. A 22 Portuguese cystoscope was used to empty the bladder. A mixture of bupivacaine lidocaine gel 20 cc was instilled into the bladder and allowed to sit for 2-3 minutes. A belladonna and opiate rectal suppository was placed. Urethral atrophy noted. Hydrodistention of the bladder was performed. The bladder was filled and allowed to sit for 2 minutes. Filling was from a height of 1 m. On the 1st fill there was 700 cc within the bladder. Cystoscopy revealed increased collagen deposition with submucosal vessel proliferation consistent with interstitial cystitis. Second filling of the bladder was performed in similar fashion. Volume was approximately 700 cc. Terminal hematuria noted. The the bladder was emptied. The patient tolerated procedure well was extubated in operating room transferred in stable condition to the recovery area. Appropriate postprocedure pain medication was provided. Pathology: Drains: None
[2023-03-06] MEDS: Acetaminophen 325 MG TABLET 650 MG PO (08:31)
[2023-03-06] MEDS: Ketorolac Tromethamine 15 MG/ML VIAL IVPUSH (08:33)
[2023-03-06] MEDS: Phenazopyridine HCL 100 MG TABLET PO (08:42)
[2023-03-06] MEDS: diphenhydrAMINE HCL 25 MG CAPSULE PO (09:01)
== END 2023-03-06 09:57 | disposition home or self-care (01) ==
PROVIDERS: PCP Internal Medicine Medical Oncology; Visit Provider Urology
PROC: 0T7B7ZZ Dilation of Bladder, Via Natural or Artificial Opening (ICD-10-PCS; CPT 52260; principal; 2023-03-06 07:30)
DX: N30.10 Interstitial cystitis (chronic) without hematuria (principal); R10.2 Pelvic and perineal pain; R35.0 Frequency of micturition; R39.15 Urgency of urination; M32.9 Systemic lupus erythematosus, unspecified; M79.7 Fibromyalgia; M81.0 Age-related osteoporosis without current pathological fracture; M05.9 Rheumatoid arthritis with rheumatoid factor, unspecified; D64.9 Anemia, unspecified; E03.9 Hypothyroidism, unspecified; F31.9 Bipolar disorder, unspecified; Z85.3 Personal history of malignant neoplasm of breast; Z88.2 Allergy status to sulfonamides; Z88.5 Allergy status to narcotic agent; Z88.8 Allergy status to other drugs, medicaments and biological substances; Z79.899 Other long term (current) drug therapy
CPT/HCPCS: 52260; J1885; J3010

== ENCOUNTER → 2023-03-06 06:11 | Outpatient (BNV) | payer OTHER, SELFPAY | PROVIDERS: PCP Internal Medicine Medical Oncology; Visit Provider Urology | DX: N30.10 Interstitial cystitis (chronic) without hematuria (principal) | CPT/HCPCS: 52260 ==

== ENCOUNTER → 2023-03-21 11:23 | Outpatient (BNVA) | payer OTHER, SELFPAY | PROVIDERS: PCP Internal Medicine; Visit Provider Urology ==

== ENCOUNTER 2023-03-28 09:53 | Outpatient (REF) | payer OTHER, SELFPAY ==
[2023-03-28 10:12] LABS: MANUAL DIFF FLAG NO
[2023-03-28 10:22] LABS: Basophils Percent Auto 0.7 % (0-2); Eosinophils Percent Auto 0.7 % (0-4); Hematocrit 36.5 % (37.0-47.0); Hemoglobin 11.5 g/dl (12.0-16.0); Imm Gran Abs Auto 0.01 X10*3/uL (0.00-0.03); Imm Gran Pct Auto 0.3 % (0.0-0.4); Lymphocytes Absolute Auto 0.7 X10*3/uL (1.2-4.9); Lymphocytes Percent Auto 24.4 % (20-40); Mean Corpuscular HGB Conc 31.5 g/dl (31.0-35.0); Mean Corpuscular Hemoglobin 27.6 pg (27.0-33.0); Mean Corpuscular Volume 87.5 fL (80.0-98.0); Mean Platelet Volume 9.7 fL (9.4-12.3); Monocytes Absolute Auto 0.3 X10*3/uL (0.1-1.2); Monocytes Percent Auto 9.8 % (2-11); Neutrophils Absolute Auto 1.9 x10*3/uL (2.0-8.3); Neutrophils Percent Auto 64.1 % (45-73); Platelet Count 165 X10*3/uL (160-400); Red Blood Count 4.17 X10*6/uL (4.20-5.50); Red Cell Distribution Width 13.5 % (11.0-16.0)
[2023-03-28 10:58] LABS: Alanine Aminotransferase 17 U/L (0-31); Albumin Level 4.2 g/dL (3.5-5.0); Alkaline Phosphatase 56 U/L (39-117); Anion Gap 13 (12-20); Aspartate Amino Transferase 20 U/L (5-31); Bilirubin Total 0.5 mg/dL (0.0-1.0); Blood Urea Nitrogen 19 mg/dL (9-16); Calcium 9.3 mg/dL (8.4-10.2); Carbon Dioxide 28 mmol/L (22-29); Chloride 104 mmol/L (96-108); Cholesterol 195 mg/dL (<200); Estimated Glomerular Filt Rate > 60; Glucose Fasting 77 mg/dL (60-99); HDL Cholesterol 66 mg/dL (>40); LDL Cholesterol Calculated 113 mg/dL (<100); Potassium 3.6 mmol/L (3.3-5.1); Sodium 141 mmol/L (135-145); Total Protein 7.3 g/dL (6.5-8.0); Triglycerides 80 mg/dL (<150)
[2023-03-28 11:18] LABS: Vitamin D 25-OH Total 40.3 ng/mL (>30)
== END 2023-03-28 09:54 | disposition home or self-care (01) ==
LOC: HO.LAB 09:53
PROVIDERS: PCP Internal Medicine; Visit Provider Internal Medicine Medical Oncology
DX: R63.4 Abnormal weight loss (principal); D72.819 Decreased white blood cell count, unspecified; E55.9 Vitamin D deficiency, unspecified
CPT/HCPCS: 36415; 80053; 80061; 82306; 85025

== ENCOUNTER 2023-03-28 10:00 | Outpatient (RCR) | payer OTHER, SELFPAY ==
--- NOTE | 2023-02-21 12:50 | MHC.PT.EP ---
[facility] [place] [facility] [place] [facility] [place] [facility] [address] Britton Lee [address] [phone] F: [phone] F: [phone] F: [phone] F: [phone] Physical Therapy Plan of Care Date of Evaluation: 02/21/23 Date of Surgery: Diagnosis: IC Assessment: 57 y/o female referred to PT with IC. She reports lower abdominal stabbing pain with urinating, bowel movements, sitting > 10min, standing > 10min, walking > 15min, and lying down. She also reports UI with strong urge as well as functional mobility when her bladder is full. She has a PMH significant for Breast CA 2010 with B radical mastectomy, hysterectomy, osteoporosis, RA, lupus, fibromyalgia. Pt provided consent for pelvic floor assessment and will perform next visit. Currently she presents with impaired posture, poor breathing mechanics, decreased LE strength, decreased hip mobility, and impaired gait pattern. Recommend PT 1x/week for 8 weeks to address impairments, implement HEP, and optimize functional mobility. Frequency and Duration: The patient will be seen 1x/week for 8 weeks Short Term Goals: 4 weeks 1. Pt to be able to correctly activate and relax her PFM to allow improved support to bowel and bladder. 2. Pt to be able to demonstrate diaphragmatic breathing to improve pressure exchange and intra abdominal load management. 3. Pt to be educated on bladder irritants in order to decrease UI triggers 4. Pt to complete a voiding log in order to accurately assess her bladder habits 5. Pt to be educated on behavior training to help decrease urge incontinence. Assisted Goals: 8 weeks 1. Pt to be able to show improved PFM contraction during functional movements such as a bridge or squat to help prevent or limit POP. 2. Pt to reduce # of episodes of MADINA during the day by 50% to help improve quality of life and reduce pad usage. 3. Pt to be independent with her final HEP for PFM in order to help maintain gains made in therapy. Treatment Plan: Modalities to reduce pain, spasms and effusion. Manual therapy to restore motion and function. Therapeutic exercise to improve strength and flexibility. Neuromuscular re-education for posture and balance. Therapeutic activities to return to functional activities of daily living. Electronically signed by: Please sign and return to therapist. Thank you for your referral.
--- NOTE | 2023-05-04 08:20 | MHC.PT.DC ---
[facility] [place] Office [place] Office [place] Office [address] Britton Lee [address] [phone] F: [phone] F: [phone] F: [phone] F: [phone] Physical Therapy Discharge Report Diagnosis: IC Date of Surgery: Date of Evaluation: 02/21/23 Date of Discharge: 05/04/23 Treatments to Date: 4 Cancellations to Date: 3 No Shows to Date: 0 Discharge Status: Improved Function Independent with HEP Discharge Summary: Pt did not f/u with final visit d/t illness, however at time of last attended visit, pt had less abdominal pain, I with HEP and urge deferment strategies. Will d/c chart at this time. Electronically signed by: Cyndi Santacruz PT Please sign and return to therapist. Thank you for your referral.
== END 2023-05-04 08:21 | disposition home or self-care (01) ==
LOC: HO.PT 10:00
PROVIDERS: PCP Internal Medicine; Visit Provider Nurse Practitioner Family
DX: N30.10 Interstitial cystitis (chronic) without hematuria (principal); R35.0 Frequency of micturition; N30.90 Cystitis, unspecified without hematuria
CPT/HCPCS: 97110; 97112; 97140; 97162

== ENCOUNTER 2023-04-17 12:25 | Outpatient (AMB) | payer OTHER, SELFPAY ==
--- NOTE | 2023-04-17 12:35 | A.OFFPC_ITS ---
Vital Signs 04/17/23 12:36 Height 5 ft 3 in Weight 116 lb 6 oz BMI 20.6 BP 100/68 Blood Pressure Location Lt brachial Position Sitting Pulse 83 Pulse Source Pulse Oximeter Pulse Oximetry (%) 98 Oxygen Delivery Method Room Air Intake Visit Reasons: 4 month f/u Nuisance Animal Damage Control Agent Required: No Accompanied by: Self / Same As Patient Allergies Sulfa (Sulfonamide Antibiotics) Allergy (Severe, Verified 04/17/23 12:50) Itching codeine [CODEINE] Allergy (Intermediate, Verified 04/17/23 12:50) ITCHING hydroxychloroquine [From PLAQUENIL] Allergy (Intermediate, Verified 04/17/23 12:50) VOMITING morphine [MORPHINE] Allergy (Intermediate, Verified 04/17/23 12:50) ITCHING oxycodone [From PERCOCET] Allergy (Intermediate, Verified 04/17/23 12:50) ITCHING tramadol [From ULTRAM] Allergy (Intermediate, Verified 04/17/23 12:50) ITCHING Estrogens Allergy (Mild, Verified 04/17/23 12:50) Unknown levothyroxine sodium Allergy (Unknown, Verified 04/17/23 12:50) rash,throat closes bupropion [From Wellbutrin] Adverse Reaction (Severe, Verified 04/17/23 12:50) Seizure Corticosteroids (Glucocorticoids) [CORTICOSTEROIDS (GLUCOCORTICOIDS)] Adverse Reaction (Severe, Verified 04/17/23 12:50) DIFFICULTY BREATHING escitalopram [From Lexapro] Adverse Reaction (Severe, Verified 04/17/23 12:50) seizure meloxicam Adverse Reaction (Severe, Verified 04/17/23 12:50) Gastrointestinal Upset trazodone Adverse Reaction (Severe, Verified 04/17/23 12:50) Seizure tadalafil [From Cialis] Adverse Reaction (Intermediate, Verified 04/17/23 12:50) Nausea and Vomiting acetaminophen [Percocet] Adverse Reaction (Unknown, Verified 04/17/23 12:50) Unknown duloxetine Adverse Reaction (Unknown, Verified 04/17/23 12:50) Unknown Medication List - Last Reconciled 04/17/23 by Chuck Davila MD amitriptyline 50 mg PO BEDTIME ammonium lactate 12% 1 appl topical BID bisacodyl (Laxative (bisacodyl)) 10 mg (2 x 5 mg) PO BEDTIME bupropion HCl 150 mg PO Q OTHER DAY calcipotriene 0.005% 1 appl topical QAM calcium citrate 500 mg (2 x 250 mg calcium) PO BID chlorhexidine gluconate 0.12% 15 mL PO BID cholecalciferol (vitamin D3) 50 mcg PO DAILY cimetidine 800 mg PO BID 90 days clonazepam 1 mg PO BID dexlansoprazole (Dexilant) 60 mg PO DAILY 30 days diclofenac sodium 1% 2 grams topical QID gabapentin 300 mg PO TID ketorolac 10 mg PO Q8H PRN 7 days ketorolac 10 mg PO Q8H PRN 7 days lidocaine 5% 1 patch topical DAILY PRN multivitamin with folic acid 400 mcg (Daily-Dottie (with folic acid)) 1 tab PO DAILY nitrofurantoin macrocrystal 50 mg PO DAILY onabotulinumtoxinA (Botox) 200 units IM ondansetron mg PO orphenadrine citrate ER 100 mg PO BID 4 days oxcarbazepine 150 mg PO BID oxybutynin chloride ER 10 mg PO DAILY phenazopyridine (Pyridium) 100 mg PO TID PRN 4 days phenazopyridine (Pyridium) 100 mg PO Q8H PRN risperidone 0.25 mg PO BEDTIME simethicone 180 mg PO QID 30 days Synthroid (levothyroxine) 50 mcg PO DAILY 90 days NS tramadol 50 mg PO Q6H PRN trazodone 50 mg PO BEDTIME PRN Ventolin HFA 90 mcg/actuation (albuterol sulfate) 2 puffs inhalation Q6H PRN NS Tobacco use date assessed: 04/17/23 Dental Screening Dental Screen Date: 04/17/23 Did you have a dental visit in the last 12 months?: Yes Did you have a dental problem in the last 6 months where you did not have access to dental care?: No Was dental information given to patient?: Patient has dentist HPI 4 month f/u HPI Details Patient comes in today for her follow up visit States that she currently feels okay Still has on and off headaches and dizziness (has migraine headaches) but states that they have been fairly well-controlled lately She denies any chest pains, no increased SOB No nausea/vomiting, no abdominal pain No change in bowel habits noted Would like to get a refill on her Toradol, which she states she only takes as needed Had her follow up labs done a couple of weeks ago - to discuss her results She was also seen at [facility] last month and she is planning to have abdominoplasty with liposuction done although this has not been scheduled yet She was advised that she will need a medical clearance from her PCP before she can go for her surgery and is wondering when she can be scheduled for this [facility] Medical History Estrogen receptor positive status [ER+] Ductal carcinoma in situ (DCIS) of left breast Autoimmune disorder PTSD (post-traumatic stress disorder) COVID-19 Insomnia Bilateral knee pain Fibromyalgia Schatzki's ring Rheumatoid arthritis Small bowel motility disorder Vitamin D deficiency Hypothyroidism Osteoporosis Raynaud's disease without gangrene Lupus (systemic lupus erythematosus) Seropositive rheumatoid arthritis Bipolar depression Anxiety Primary insomnia History of breast cancer Constipation Polyarthralgia Leukopenia Acquired hypothyroidism Systemic lupus erythematosus Gingivitis Left temporomandibular joint disorder, unspecified Surgical History History of esophagogastroduodenoscopy (EGD) Hx of colonoscopy History of bilateral mastectomy History of total abdominal hysterectomy and bilateral salpingo-oophorectomy History of cholecystectomy History of tubal ligation History of section Family History Father Hypertension Prostate cancer Mother Breast cancer Hypertension Asthma Maternal Aunt Breast cancer Maternal Grandmother Colon cancer Maternal Aunt Breast cancer Social History Household Members: Children Household Members Other:: 2 daughters Housing: House Do you presently have visiting nurse or other home services: No Alcohol intake: never Patient Tobacco Use Status: Never used Tobacco e-Cigarette/Vaping Use: Never Used Second Hand Smoke Exposure: No Advance Directives Date on File: 08/12/20 service: No Current occupational status: disabled Sexual orientation: Straight/Heterosexual Cognitive needs: Yes (cane) Hearing needs: No Vision needs: Yes (Glasses) Female Reproductive History Menstrual Age of Menarche: 10 Questionnaire PHQ-9 Over the last 2 weeks, how often have you been bothered by any of the following problems? 1. Little interest or pleasure in doing things: several days 2. Feeling down, depressed, or hopeless: several days 3. Trouble falling or staying asleep, or sleeping too much: several days 4. Feeling tired or having little energy: several days 5. Poor appetite or overeating: several days 6. Feeling bad about yourself - or that you are a failure or have let yourself or your family down: several days 7. Trouble concentrating on things, such as reading the newspaper or watching television: not at all 8. Moving or speaking so slowly that other people could have noticed. Or the opposite - being so fidgety or restless that you have been moving around a lot more than usual: not at all 9. Thoughts that you would be better off or of hurting yourself in some way: not at all Total score: 6 Depression Screening Interpretation: Positive Depression Screening Follow-up: Existing condition and In treatment Depression Screening Done: Yes 69323 - PHQ-9 Billing: Yes Source: Developed by Drs. Som Barrera, Stephy Taylor, Michele Li and colleagues, with an educational coleman from [employer]. Thrive Questionnaire Date Thrive assessed: 04/17/23 I am a: Patient What is your living situation today?: I have a steady place to live Within the past 12 months, did the food you bought not last and you didn't have the money to get more?: Never true Within the past 12 months, did you worry whether your food would run out before you got money to buy more?: Never true Do you have trouble paying for medicines?: No Do you have trouble getting transportation to medical appointments?: No Do you have trouble paying your heating and electricity bill?: No Do you have trouble taking care of your child, family member or friend?: No Do you have trouble with day-to-day activities such as bathing, preparing meals, shopping, managing finances, etc.?: No Are you currently unemployed and looking for a job?: No Are you interested in more education?: No Please select the resources that you would like help with: None Currently or been in a relationship where the following occur: no concerns reported AUDIT C Alcohol Use Questionnaire (AUDIT-C) 1. How often do you have a drink containing alcohol?: Never 3. How often do you have six or more drinks on one occasion?: Never Total Score: 0 Score Reviewed/Action Taken: Yes MOSHE-7 AMB Questionnaire MOSHE-7 Date MOSHE - 7 assessed: 04/17/23 Feeling nervous, anxious, or on edge: 0 = Not at all Not being able to stop or control worryin = Not at all Worrying too much about different things: 0 = Not at all Trouble relaxin = Not at all Being so restless that it is hard to sit still: 0 = Not at all Becoming easily annoyed or irritable: 0 = Not at all Feeling afraid as if something awful might happen: 0 = Not at all Total MOSHE-7 score (0-4 normal; 5-9 mild; 10-14 moderate; 15-21 severe): 0 Source: Developed by Drs. Som Barrera, Stephy Taylor, Michele Li and colleagues, with an educational coleman from [employer]. Review of Systems Const Denies chills, Reports fatigue (chronic), Denies fever(s) and Reports headache(s) (on and off) ENT Denies dysphagia, Reports dizziness (on and off), Denies otalgia, Reports headache(s) (on and off), Denies odynophagia, Denies sinus pain and Denies sore throat Card Denies chest pain, Denies palpitations and Reports dyspnea on exertion (mild, chronic) Resp Denies chest congestion, Denies cough and Reports dyspnea on exertion (mild, chronic) GI Denies abdominal pain, Reports constipation (Rx helping), Denies dysphagia, Denies heartburn, Denies diarrhea, Denies nausea, Denies odynophagia and Denies vomiting Denies hematuria, Reports nocturia, Denies dysuria and Denies urinary urgency Musc Reports back pain (over the lower back, on and off) Skin/Breast Denies rash Neuro Reports dizziness (on and off) and Reports headache(s) (on and off) Endo Reports fatigue (chronic) and Denies palpitations Physical exam (Primary Care) Vital Signs: Last Vital Signs Pulse 83 04/17/23 12:36 BP 100/68 04/17/23 12:36 Pulse Ox 98 04/17/23 12:36 Oxygen Delivery Method Room Air 12/18/23 12:36 BMI result Body Mass Index 20.6 Tobacco/Smoking Status: Tobacco use Status Tobacco use date assessed 04/17/23 04/17/23 12:45 Patient Tobacco Use Status Never used Tobacco 04/17/23 12:45 e-Cigarette/Vaping Use Never Used 04/17/23 12:45 PHQ-9: PHQ-9 Score PHQ-9: Total score 6 04/17/23 12:45 Depression Screening Interpretation: Positive Depression Screening Follow-up: Existing condition and In treatment Thrive Assessment: Date of Thrive Assessment Date Thrive assessed 04/17/23 12 12:45 Currently or been in a relationship where the following occur: no concerns reported Const General: no acute distress and alert HENMT Ears: TM's normal bilaterally and EAC's normal Throat: Yes posterior oropharynx normal and Yes tonsils normal Neck Neck: Yes no lymphadenopathy and Yes supple Resp Auscultation: clear to auscultation bilaterally, no rales and no wheezes Cardio Rate: regular rate Rhythm: regular rhythm Heart sounds: no murmurs GI Palpation (GI): Soft to palpation and nontender Auscultation: normal bowel sounds Back/Spine/Pelvis Thoracic/Lumbar Spine: paraspinal muscle tenderness bilaterally in the mid lumbar and in the lower lumbar Skin Rashes: no rashes Extrem General: Yes no clubbing, cyanosis or edema Results Reviewed Results Reviewed: Laboratory Tests 03/28/23 10:11 WBC 3.0 L Hgb 11.5 L Hct 36.5 L Plt Count 165 Sodium 141 Potassium 3.6 Creatinine 0.66 Estimated GFR > 60 Fasting Glucose 77 Calcium 9.3 AST 20 ALT 17 Triglycerides 80 Cholesterol 195 LDL Cholesterol, Calc 113 H HDL Cholesterol 66 25-OH Vitamin D Total 40.3 Assessment and Plan Assessment & Plan (1) Fibromyalgia: Code(s): M79.7 - Fibromyalgia Plan: Patient was seeing Dr. Castrejon [facility] [place] previously and has been reportedly advised that although she tested positive for DANA, all other workups were negative and she has no clinical evidence of active disease and there is no indication for treatment for lupus or RA at the time She was seen by rheumatology [place] [facility] and was advised of the same - that she has no evidence of active inflammatory joint disease and there is no indication for therapy Lumbar spine x-rays done last year came back normal Continue Lidocaine patches PRN and Gabapentin 300 mg TID Patient is again encouraged to stay active and exercise regularly (as tolerated) to help manage her fibromyalgia symptoms She previously requested for a referral to rheumatology in [place] as she felt that rheumatology here at [facility] is not really doing much to help her (2) Polyarthralgia: Code(s): M25.50 - Pain in unspecified joint Plan: Continue Orphenadrine ER 100 mg BID, Diclofenac sodium 1% gel topically PRN and Toradol 10 mg Q 8 hours PRN (Rx refilled) Follow up with [facility] as scheduled She was going to physical therapy previously but states that she did not experience any relief from PT; has been advised to consider a referral to physiatry in the past and a referral was done to [facility] for physiatry evaluation and management at one of her previous visits (3) Dystonia: Code(s): G24.9 - Dystonia, unspecified Plan: Is receiving botox injections from neurology when needed Follow up with neurology as scheduled (4) Headache: Code(s): R51.9 - Headache, unspecified Qualifiers: Headache type: unspecified Headache chronicity pattern: episodic headache Intractability: not intractable Qualified Code(s): R51.9 - Headache, unspecified Plan: Was diagnosed with possible tension headaches by neurology and started on Amitriptyline 50 mg Q HS - states that Rx has been helping a lot Follow up with neurology as scheduled (5) Acquired hypothyroidism: Code(s): E03.9 - Hypothyroidism, unspecified Plan: Results of her labs done a couple of weeks ago reviewed and discussed with patient - TFTs were normal on her recent labs but her LDL cholesterol has increased from previous Continue Synthroid 50 mcg QD Follow up with endocrinology as scheduled (6) Anemia: Code(s): D64.9 - Anemia, unspecified Qualifiers: Anemia type: unspecified type Qualified Code(s): D64.9 - Anemia, unspecified Plan: Results of her labs done a couple of weeks ago reviewed and discussed with patient - she still has mild anemis but reassured that ALL of her other labs have come back NORMAL Continue Feosol 65 mg every other day - patient gets very constipated when she takes Rx daily Will recheck her CBC in 4 months for follow up (7) Osteoporosis: Code(s): M81.0 - Age-related osteoporosis without current pathological fracture Qualifiers: Osteoporosis type: unspecified Presence of current pathological fracture: without current pathological fracture Qualified Code(s): M81.0 - Age- related osteoporosis without current pathological fracture Plan: Continue daily oral calcium and Vitamin D supplements Fall precautions reinforced Follow up with endocrinology as scheduled but she has been referred by Dr. Brandon to [place] for a second opinion (8) Vitamin D deficiency: Code(s): E55.9 - Vitamin D deficiency, unspecified Plan: Continue Vitamin D2 91536 units once a week (9) GERD (gastroesophageal reflux disease): Code(s): K21.9 - Gastro-esophageal reflux disease without esophagitis Qualifiers: Esophagitis presence: without esophagitis Qualified Code(s): K21.9 - Gastro-esophageal reflux disease without esophagitis Plan: Dietary restrictions reinforced Continue Dexilant 60 mg QD (10) Chronic idiopathic constipation: Code(s): K59.04 - Chronic idiopathic constipation Plan: Continue Bisacodyl PRN and Colace 100 mg QD PRN Encouraged increased oral fluids and disetary fiber Follow up with GI as scheduled (11) Interstitial cystitis: Code(s): N30.10 - Interstitial cystitis (chronic) without hematuria Plan: Urinary bladder US done a few months ago revealed (+) posterior wall trabeculations but no generalized bladder wall thickening and no masses or calculi noted S/P cystoscopy with hydrodistention by urology last month - she appears to have experienced significant improvement of her symptoms with the procedure Patient is again encouraged to increase her oral fluid intake and advised that drinking cranberry juice may help with her symptoms Follow up with urology as scheduled (12) Insomnia: Code(s): G47.00 - Insomnia, unspecified Qualifiers: Insomnia type: unspecified Qualified Code(s): G47.00 - Insomnia, unspecified Plan: Sleep hygiene reinforced Continue Trazodone 50 mg Q HS (13) Anxiety: Code(s): F41.9 - Anxiety disorder, unspecified Plan: Continue Clonazepam 1 mg BID PRN (14) Bipolar depression: Code(s): F31.9 - Bipolar disorder, unspecified Plan: Continue Bupropion ER 150 mg QOD Follow-up with Psychiatry as scheduled Plan Patient is advised that she will need to find out first when she will be scheduled for her abdominoplasty with liposuction before we can schedule her for a preop exam as the medical clearance for surgery has to be provided WITHIN A MONTH of her surgery date Follow up in 4 months Orders: Orders Comprehensive [place]. Panel Fast 4 Months E78.00 - Pure hypercholesterolemia, unspecified Complete Blood Count Auto Diff 4 Months I10 - Essential (primary) hypertension UA CC w/rflx Micro + Cult 4 Months R30.0 - Dysuria Lipid Panel 4 Months E78.00 - Pure hypercholesterolemia, unspecified Thyroid Stimulating Hormone 4 Months E03.9 - Hypothyroidism, unspecified Free T4 (Free Thyroxine) 4 Months E03.9 - Hypothyroidism, unspecified Vitamin D 25-OH Total 4 Months E55.9 - Vitamin D deficiency, unspecified Medications: Refilled ketorolac Take WITH FOOD and ONLY NEEDED for severe pain 10 mg PO Q8H 7 days PRN 20 tabs 1RF pain Coding Level of Care Code Est Pt Level 4 (49336) Diagnoses Fibromyalgia M79.7 Polyarthralgia M25.50 Dystonia G24.9 Nonintractable episodic headache, unspecified headache type R51.9 Headache type: unspecified Headache chronicity pattern: episodic headache Intractability: not intractable Acquired hypothyroidism E03.9 Anemia, unspecified type D64.9 Anemia type: unspecified type Osteoporosis without current pathological fracture, unspecified osteoporosis type M81.0 Osteoporosis type: unspecified Presence of current pathological fracture: without current pathological fracture Vitamin D deficiency E55.9 Gastroesophageal reflux disease without esophagitis K21.9 Esophagitis presence: without esophagitis Chronic idiopathic constipation K59.04 Interstitial cystitis N30.10 Insomnia, unspecified type G47.00 Insomnia type: unspecified Anxiety F41.9 Bipolar depression F31.9
[2023-04-17 12:36] VITALS: BP 100/68; PULSE 83; O2SAT 98; BMI 20.6
== END 2023-04-17 13:19 | disposition home or self-care (01) ==
PROVIDERS: PCP Internal Medicine; Visit Provider Internal Medicine
DX: M79.7 Fibromyalgia (principal); M25.50 Pain in unspecified joint; G24.9 Dystonia, unspecified; F31.9 Bipolar disorder, unspecified; R51.9 Headache, unspecified; E03.9 Hypothyroidism, unspecified; D64.9 Anemia, unspecified; M81.0 Age-related osteoporosis without current pathological fracture; E55.9 Vitamin D deficiency, unspecified; K21.9 Gastro-esophageal reflux disease without esophagitis; K59.04 Chronic idiopathic constipation; N30.10 Interstitial cystitis (chronic) without hematuria
CPT/HCPCS: 99214

== ENCOUNTER 2023-05-09 11:36 | Outpatient (AMB) | payer OTHER, SELFPAY ==
[2023-05-09 11:41] VITALS: BP 135/63; BMI 20.9
--- NOTE | 2023-05-09 11:41 | MHC.OFFVIS ---
Intake Vital Signs 05/09/23 11:41 Height 5 ft 3 in Weight 118 lb 2.684 oz BMI 20.9 BP 135/63 Blood Pressure Location Lt brachial Position Sitting Intake Visit Reasons: Follow Up Colonoscopy Intake Note: Patient presents to in office visit today in follow up to discuss colonoscopy. CC: Patient reports having abdominal pain and GERD and she would like to have EGD done with colonoscopy. [place]p[employer] Buyer Required: Yes Pulpwood Buyer Name: daughter Accompanied by: Daughter Allergies Sulfa (Sulfonamide Antibiotics) Allergy (Severe, Verified 05/09/23 11:46) Itching codeine [CODEINE] Allergy (Intermediate, Verified 05/09/23 11:46) ITCHING hydroxychloroquine [From PLAQUENIL] Allergy (Intermediate, Verified 05/09/23 11:46) VOMITING morphine [MORPHINE] Allergy (Intermediate, Verified 05/09/23 11:46) ITCHING oxycodone [From PERCOCET] Allergy (Intermediate, Verified 05/09/23 11:46) ITCHING tramadol [From ULTRAM] Allergy (Intermediate, Verified 05/09/23 11:46) ITCHING Estrogens Allergy (Mild, Verified 05/09/23 11:46) Unknown levothyroxine sodium Allergy (Unknown, Verified 05/09/23 11:46) rash,throat closes bupropion [From Wellbutrin] Adverse Reaction (Severe, Verified 05/09/23 11:46) Seizure Corticosteroids (Glucocorticoids) [CORTICOSTEROIDS (GLUCOCORTICOIDS)] Adverse Reaction (Severe, Verified 05/09/23 11:46) DIFFICULTY BREATHING escitalopram [From Lexapro] Adverse Reaction (Severe, Verified 05/09/23 11:46) seizure meloxicam Adverse Reaction (Severe, Verified 05/09/23 11:46) Gastrointestinal Upset trazodone Adverse Reaction (Severe, Verified 05/09/23 11:46) Seizure tadalafil [From Cialis] Adverse Reaction (Intermediate, Verified 05/09/23 11:46) Nausea and Vomiting acetaminophen [Percocet] Adverse Reaction (Unknown, Verified 05/09/23 11:46) Unknown duloxetine Adverse Reaction (Unknown, Verified 05/09/23 11:46) Unknown HPI Follow Up Colonoscopy HPI Details Assessment & Plan (1) GERD (gastroesophageal reflux disease): Code(s): K21.9 - Gastro-esophageal reflux disease without esophagitis Qualifiers: Esophagitis presence: without esophagitis Qualified Code(s): K21.9 - Gastro-esophageal reflux disease without esophagitis Plan: AFGHAN #Dtr Deepti translates per pt request She did not get the Dexilant and this is the only med that helps her. We have conflicting information as she says she got a letter from the insurance saying they would not pay anymore, but the pharmacist says she picked up a 90 day supple 12/01....She denies taking it more than qd. Dtr Deepti will recheck the medications and I will try to send a temp supply of cimetidine 800m gbid. She uses bisacodyl prn for CIC and has simethicone available for bloating ROV 4 weeks. (2) Constipation: Code(s): K59.00 - Constipation, unspecified Medications: New cimetidine temp med until Dexilan t is available 800 mg PO BID 60 t abs 0RF Changed From bisacodyl PO To bisacodyl (Laxativ e (bisacodyl)) 10 mg (2 x 5 mg) P O BEDTIME 60 tabs 3RF Refilled simethicone aft er meals 180 mg PO QID 120 caps 6RF 30 days Laboratory Tests 02/02/23 03/28/23 13:08 10:11 WBC 3.0 L Hgb 11.5 L Hct 36.5 L MCV 87.5 MCH 27.6 Plt Count 165 Estimated GFR > 60 Total Bilirubin 0.5 AST 20 ALT 17 Alkaline Phosphata se 56 TSH 0.42 2018 EGD/COLONOSCOPY Findings: Terminal Ileum Not evaluated Cecum Patchy erythema in the right colon - random biopsies were obtained to check for microscopic colitis. Ascending Colon Patchy erythema in the right colon - random biopsies were obtained to check for microscopic colitis. Transverse Colon - Normal Descending Colon Moderate diverticulosis Sigmoid Colon Severe divsrticulosis with luminal narrowing Rectum Normal Anorectum - Lax anal sphincter. Colon preparation: Excellent. Impression and Post Procedure Diagnosis: Endoscopy Findings: LARYNX: Normal ESOPHAGUS: Dysphagia likely due to esophageal motility disorder versus EOE STOMACH: Decreased fundal folds suggetive of atrophic gastritis DUODENUM: normal Colonoscopy Findings: No polyps were detected. Moderate to severe diverticulosis seen in the left colon Plan: Await pathology results Patient has an appointment on 10/16/18 in the GI Clinic with Dianne Rodgers, SHUTTLE PREPARATION SUPERVISOR. Repeat Colonoscopy interval in 5 years due to past history of colon polyps. BIOPSY A. Stomach, biops y: Mild chronic, inactive gastritis ; no Helicobacter pylori organisms 0 seen. B. Esophagus, biopsy: Scant fra gments of squamous epithelium with r eactive features 0 suggestive of reflux disease; ne gative for dysplas ia. C. Colon, righ t, biopsies: Carson alyce mucosa within normal limits. TODAY'S VISIT AFGHAN #dtr interprets per pt request She is telling us she is due for colonoscopy. She also wants and EGD but she just had one in 2020, I explain this and that it is not warranted given the benign findings on her last exam. Apparently, the patient is worried because she has 2 relatives dx'ed with bone cancer and multiple myeloma. She is not getting her Dexilant but also still has the cimetidine. She says she has been using both of these because she has been having more abdominal cramping recently. She says that this starts in the lower abdomen but then progresses upwards although appt to her throat. She is also complaining of a dry mouth and very dry throat and trouble swallowing in the early oral phase. She has apparently had a couple of episodes of choking especially on grapes. While I feel this is likely r/t her autoimmune conditions, she seems to feel that these have been in remission for many years. She expresses concern that her blood pressure has suddenly increased from being around 100 systolic to 130. She has discussed this with her primary care provider who is monitoring the situation and does not seem overly concerned. I did tell her that taking her blood pressure twice a day at the same time every day and writing it down so that she can give her Dr. Of all get a better idea of what is happening on a daily basis might be helpful in determining if there is actually a problem. Likewise she says she is concerned that her ?bad? cholesterol has jumped and she does not eat meat as she is a vegetarian. She only eats cheese very rarely and does not do fried or fatty foods only uses extra virgin olive oil. I did tell her that we do monitor cholesterol at 3 to 6 month intervals and sometimes 1 reading can be misleading so I think that her primary care provider will likely continue to monitor this. I did try to reassure her that her good cholesterol is quite high and this frequently will offset the effects of the bad cholesterol. There are no prior problems with anesthesia or sedation. She denies any cardiac or respiratory problems. No ID problems. She has a past hx of TA many years back. ROV 6 mos, and after barium swallow and colonoscopy. [facility] Medical History Estrogen receptor positive status [ER+] Ductal carcinoma in situ (DCIS) of left breast Autoimmune disorder PTSD (post-traumatic stress disorder) COVID-19 Insomnia Bilateral knee pain Fibromyalgia Schatzki's ring Rheumatoid arthritis Small bowel motility disorder Vitamin D deficiency Hypothyroidism Osteoporosis Raynaud's disease without gangrene Lupus (systemic lupus erythematosus) Seropositive rheumatoid arthritis Bipolar depression Anxiety Primary insomnia History of breast cancer Constipation Polyarthralgia Leukopenia Acquired hypothyroidism Systemic lupus erythematosus Gingivitis Left temporomandibular joint disorder, unspecified Surgical History History of esophagogastroduodenoscopy (EGD) Hx of colonoscopy History of bilateral mastectomy History of total abdominal hysterectomy and bilateral salpingo-oophorectomy History of cholecystectomy History of tubal ligation History of section Family History Father Hypertension Prostate cancer Mother Breast cancer Hypertension Asthma Maternal Aunt Breast cancer Maternal Grandmother Colon cancer Maternal Aunt Breast cancer Social History Household Members: Children Household Members Other:: 2 daughters Housing: House Do you presently have visiting nurse or other home services: No Alcohol intake: current Alcohol intake frequency: does not drink Patient Tobacco Use Status: Never used Tobacco e-Cigarette/Vaping Use: Never Used Second Hand Smoke Exposure: No Advance Directives Date on File: 08/12/20 service: No Current occupational status: disabled Sexual orientation: Straight/Heterosexual Cognitive needs: Yes (cane) Hearing needs: No Vision needs: Yes (Glasses) Female Reproductive History Menstrual Age of Menarche: 10 Review of Systems Const Denies fatigue, Denies fever(s), Denies night sweats, Denies poor appetite and Denies weight loss Eyes Details: glasses Reports requires corrective lenses ENT Details: dry mouith and throat Reports Normal hearing present, Denies dental pain, Reports dysphagia, Denies hearing loss, Denies mouth pain, Denies odynophagia, Denies throat swelling, Denies tongue swelling and Reports other (Dentition adequate) Card Reports no additional complaints Resp Reports no additional complaints GI Denies abdominal pain, Denies melena, Denies bloating, Denies hematochezia, Reports constipation, Reports GI cramping, Reports dysphagia, Denies excessive flatus, Denies early satiety, Reports heartburn, Denies diarrhea, Reports nausea, Denies odynophagia, Denies vomiting and Denies hematemesis Skin/Breast Denies pruritus, Denies lesions, Denies rash and Denies jaundice Neuro Reports Normal hearing present and Denies Abnormal speech present Psych Reports anxiety Endo Denies fatigue Aller/Immun Denies throat swelling and Denies tongue swelling Physical Exam Vital Signs: Last Vital Signs BP 135/63 05/09/23 11:41 BMI result Body Mass Index 20.9 Const General: cooperative, no acute distress, well developed and well groomed Nutritional Appearance: average body habitus and well nourished Orientation/consciousness: oriented to person, oriented to place and oriented to time Limitations: language barrier HEENT Head: Yes normocephalic and Yes atraumatic Eyes General: appearance normal, both eyes and all related structures Pupils: Equal, round and reactive pupils present Neck Neck: Yes normal visual inspection and Yes no lymphadenopathy Thyroid: Thyroid normal Resp Effort & Inspection: normal respiratory effort and able to speak in complete sentences Auscultation: clear to auscultation bilaterally Cardio Rate: regular rate Rhythm: regular rhythm Heart sounds: Normal, physiologic split S2 sound present Peripheral pulses: radial pulses present and posterior tibial pulses present GI Inspection: No distended and No Abdominal panniculus present Palpation (GI): Soft to palpation, nontender, no guarding, not rigid and No hepatosplenomegaly present Percussion: Yes normal to percussion Auscultation: normal bowel sounds Rectal Exam - Female: deferred Skin General skin exam: no rashes or lesions noted, turgor normal, skin not dry, no jaundice, No spider nevi and no striae Rashes: no rashes Nails: normal Neuro General: oriented to person, oriented to place and oriented to time Cranial nerves: Yes Equal, round and reactive pupils present and Yes Normal hearing present Speech: No Abnormal speech present Extrem General: Yes normal to inspection, No clubbing, No cyanosis and No edema Psych Appearance: grossly normal and well kempt Mental Status: mental status grossly normal Speech and movement: Normal speech and movement present Affect: normal affect Attitude: cooperative Thought process: Circumstantial thought process present and not confabulating Thought content: Normal thought content present Insight: Limited insight present (Psych) Judgement: Limited judgement present (Psych) Assessment & Plan Assessment & Plan (1) Constipation: Code(s): K59.00 - Constipation, unspecified (2) GERD (gastroesophageal reflux disease): Code(s): K21.9 - Gastro-esophageal reflux disease without esophagitis Qualifiers: Esophagitis presence: without esophagitis Qualified Code(s): K21.9 - Gastro-esophageal reflux disease without esophagitis (3) Preoperative clearance: Code(s): Z01.818 - Encounter for other preprocedural examination (4) Family history of polyps in the colon: Comment: father and maternal grandmother crc Code(s): Z83.71 - Family history of colonic polyps (5) Tubular adenoma of colon: Comment: scope 2019 severe TICS, no polyps repeat 5 years 2023 Code(s): D12.6 - Benign neoplasm of colon, unspecified (6) Dysphagia: Comment: ORAL PHASE WITH CHOKING ON SOLID FOODS Code(s): R13.10 - Dysphagia, unspecified (7) Nausea: Code(s): R11.0 - Nausea Plan AFGHAN #dtr interprets per pt request She is telling us she is due for colonoscopy. She also wants and EGD but she just had one in 2020, I explain this and that it is not warranted given the benign findings on her last exam. Apparently, the patient is worried because she has 2 relatives dx'ed with bone cancer and multiple myeloma. She is not getting her Dexilant but also still has the cimetidine. She says she has been using both of these because she has been having more abdominal cramping recently. She says that this starts in the lower abdomen but then progresses upwards although appt to her throat. She is also complaining of a dry mouth and very dry throat and trouble swallowing in the early oral phase. She has apparently had a couple of episodes of choking especially on grapes. While I feel this is likely r/t her autoimmune conditions, she seems to feel that these have been in remission for many years. She expresses concern that her blood pressure has suddenly increased from being around 100 systolic to 130. She has discussed this with her primary care provider who is monitoring the situation and does not seem overly concerned. I did tell her that taking her blood pressure twice a day at the same time every day and writing it down so that she can give her Dr. Of all get a better idea of what is happening on a daily basis might be helpful in determining if there is actually a problem. Likewise she says she is concerned that her ?bad? cholesterol has jumped and she does not eat meat as she is a vegetarian. She only eats cheese very rarely and does not do fried or fatty foods only uses extra virgin olive oil. I did tell her that we do monitor cholesterol at 3 to 6 month intervals and sometimes 1 reading can be misleading so I think that her primary care provider will likely continue to monitor this. I did try to reassure her that her good cholesterol is quite high and this frequently will offset the effects of the bad cholesterol. She is for refill of her Zofran but she does not do well with the sublingual version so I will see if I can get her the tablet version. She has frequent nausea but no vomiting. There are no prior problems with anesthesia or sedation. She denies any cardiac or respiratory problems. No ID problems. She has a past hx of TA many years back. ROV 6 mos, and after barium swallow and colonoscopy. Orders: Orders EGD/[place] Combo - GI Use Only Today D12.6 - Benign neoplasm of colon, unspecified, R13.10 - Dysphagia, unspecified, Z01.818 - Encounter for other preprocedural examination, Z83.71 - Family history of colonic polyps [place] barium swallow modified Today R13.10 - Dysphagia, unspecified Medications: New ondansetron HCl 4 mg PO BID-TID 30 days PRN 60 tabs 6RF nausea and vomiting R11.0 - Nausea Refilled dexlansoprazole (Dexilant) 60 mg PO DAILY 30 days 30 caps 6RF bisacodyl (Laxative (bisacodyl)) 10 mg (2 x 5 mg) PO BEDTIME 60 tabs 6RF K21.9 - Gastro-esophageal reflux disease without esophagitis, K59.00 - Constipation, unspecified simethicone after meals 180 mg PO QID 30 days 120 caps 6RF Discontinued ondansetron Discontinued Reason: Doctor's Order 4 mg PO Q8H PRN 30 tabs 3RF for nausea/vomiting Coding Level of Care Code Est Pt Level 4 (93784) Diagnoses Constipation K59.00 Gastroesophageal reflux disease without esophagitis K21.9 Esophagitis presence: without esophagitis Preoperative clearance Z01.818 Family history of polyps in the colon Z83.71 Tubular adenoma of colon D12.6 Dysphagia R13.10 Nausea R11.0
== END 2023-05-09 12:44 | disposition home or self-care (01) ==
PROVIDERS: PCP Internal Medicine; Visit Provider Nurse Practitioner
DX: K59.00 Constipation, unspecified (principal); K21.9 Gastro-esophageal reflux disease without esophagitis; Z01.818 Encounter for other preprocedural examination; Z83.71 Family history of colonic polyps; D12.6 Benign neoplasm of colon, unspecified; R13.10 Dysphagia, unspecified; R11.0 Nausea
CPT/HCPCS: 99214

== ENCOUNTER → 2023-05-09 11:36 | Outpatient (BNVA) | payer OTHER, SELFPAY | PROVIDERS: PCP Internal Medicine; Visit Provider Nurse Practitioner | DX: Z01.818 Encounter for other preprocedural examination (principal); K59.00 Constipation, unspecified; K21.9 Gastro-esophageal reflux disease without esophagitis; D12.6 Benign neoplasm of colon, unspecified; R13.10 Dysphagia, unspecified; R11.0 Nausea; Z83.719 Family history of colon polyps, unspecified | CPT/HCPCS: 99212 ==

== ENCOUNTER 2023-05-24 12:26 | Outpatient (AMB) | payer OTHER, SELFPAY ==
[2023-05-24 12:37] VITALS: BP 126/70; PULSE 77; TEMP 36.6; O2SAT 97; BMI 20.5
--- NOTE | 2023-05-24 12:37 | AM.OFFWIN_ITS ---
Intake Vital Signs 05/24/23 12:37 Height 5 ft 3 in Weight 116 lb BMI 20.5 BP 126/70 Blood Pressure Location Lt brachial Position Sitting Pulse 77 Pulse Source Pulse Oximeter Temp 97.9 F Temp Source Temporal Artery Scan Pulse Oximetry (%) 97 Oxygen Delivery Method Room Air Intake Visit Reasons: EP [place] on head due to fall/Headache/neck pain Intake Note: pt is here today for myrtle on head due to fall/headache/neck pain started monday Patient Tobacco Use Status: Never used Tobacco Allergies Sulfa (Sulfonamide Antibiotics) Allergy (Severe, Verified 05/24/23 13:33) Itching codeine [CODEINE] Allergy (Intermediate, Verified 05/24/23 13:33) ITCHING hydroxychloroquine [From PLAQUENIL] Allergy (Intermediate, Verified 05/24/23 13:33) VOMITING morphine [MORPHINE] Allergy (Intermediate, Verified 05/24/23 13:33) ITCHING oxycodone [From PERCOCET] Allergy (Intermediate, Verified 05/24/23 13:33) ITCHING tramadol [From ULTRAM] Allergy (Intermediate, Verified 05/24/23 13:33) ITCHING Estrogens Allergy (Mild, Verified 05/24/23 13:33) Unknown levothyroxine sodium Allergy (Unknown, Verified 05/24/23 13:33) rash,throat closes bupropion [From Wellbutrin] Adverse Reaction (Severe, Verified 05/24/23 13:33) Seizure Corticosteroids (Glucocorticoids) [CORTICOSTEROIDS (GLUCOCORTICOIDS)] Adverse Reaction (Severe, Verified 05/24/23 13:33) DIFFICULTY BREATHING escitalopram [From Lexapro] Adverse Reaction (Severe, Verified 05/24/23 13:33) seizure meloxicam Adverse Reaction (Severe, Verified 05/24/23 13:33) Gastrointestinal Upset trazodone Adverse Reaction (Severe, Verified 05/24/23 13:33) Seizure tadalafil [From Cialis] Adverse Reaction (Intermediate, Verified 05/24/23 13:33) Nausea and Vomiting acetaminophen [Percocet] Adverse Reaction (Unknown, Verified 05/24/23 13:33) Unknown duloxetine Adverse Reaction (Unknown, Verified 05/24/23 13:33) Unknown Medication List - Last Reconciled 05/24/23 by Harsh Shah MD amitriptyline 50 mg PO BEDTIME ammonium lactate 12% 1 appl topical BID bisacodyl (Laxative (bisacodyl)) 10 mg (2 x 5 mg) PO BEDTIME bupropion HCl 150 mg PO Q OTHER DAY calcipotriene 0.005% 1 appl topical QAM calcium citrate 500 mg (2 x 250 mg calcium) PO BID chlorhexidine gluconate 0.12% 15 mL PO BID cholecalciferol (vitamin D3) 50 mcg PO DAILY cimetidine 800 mg PO BID 90 days clonazepam 1 mg PO BID dexlansoprazole (Dexilant) 60 mg PO DAILY 30 days diclofenac sodium 1% 2 grams topical QID gabapentin 300 mg PO TID ketorolac 10 mg PO Q8H PRN 7 days lidocaine 5% 1 patch topical DAILY PRN multivitamin with folic acid 400 mcg (Daily-Dottie (with folic acid)) 1 tab PO DAILY onabotulinumtoxinA (Botox) 200 units IM ondansetron HCl 4 mg PO BID-TID PRN 30 days orphenadrine citrate ER 100 mg PO BID 4 days oxcarbazepine 150 mg PO BID oxybutynin chloride ER 10 mg PO DAILY simethicone 180 mg PO QID 30 days sod picosulf-mag ox-citric ac 10 mg-3.5 gram- 12 gram/160 mL (Clenpiq) 160 mL PO DAILY 2 doses Synthroid (levothyroxine) 50 mcg PO DAILY 90 days NS tramadol 50 mg PO Q6H PRN trazodone 50 mg PO BEDTIME PRN Ventolin HFA 90 mcg/actuation (albuterol sulfate) 2 puffs inhalation Q6H PRN NS Do you need a note to return to daycare/school/sports/work: No HPI EP [place] on head due to fall/Headache/neck pain HPI Details 57 yr old female presents to the office for a sick visit. She is accompanied by her daughter who is also her LEGAL ADMINISTRATIVE ASSISTANT. Daughter is translating. Patient had a fall insided the house a few days ago. This caused a scalp laceration. She was seen at [facility] and 4 myrtle placed. Patient was discharged home on Motrin. Patient returns here today with persisting pain in the neck. She reports her neck is stiff. She already has chronic medical problems with pain including lupus. No nausea, vomiting or double vision. [facility] Medical History Estrogen receptor positive status [ER+] Ductal carcinoma in situ (DCIS) of left breast Autoimmune disorder PTSD (post-traumatic stress disorder) COVID-19 Insomnia Bilateral knee pain Fibromyalgia Schatzki's ring Rheumatoid arthritis Small bowel motility disorder Vitamin D deficiency Hypothyroidism Osteoporosis Raynaud's disease without gangrene Lupus (systemic lupus erythematosus) Seropositive rheumatoid arthritis Bipolar depression Anxiety Primary insomnia History of breast cancer Constipation Polyarthralgia Leukopenia Acquired hypothyroidism Systemic lupus erythematosus Gingivitis Left temporomandibular joint disorder, unspecified Surgical History History of esophagogastroduodenoscopy (EGD) Hx of colonoscopy History of bilateral mastectomy History of total abdominal hysterectomy and bilateral salpingo-oophorectomy History of cholecystectomy History of tubal ligation History of section Family History Father Hypertension Prostate cancer Mother Breast cancer Hypertension Asthma Maternal Aunt Breast cancer Maternal Grandmother Colon cancer Maternal Aunt Breast cancer Social History Household Members: Children Household Members Other:: 2 daughters Housing: House Do you presently have visiting nurse or other home services: No Alcohol intake: current Alcohol intake frequency: does not drink Patient Tobacco Use Status: Never used Tobacco e-Cigarette/Vaping Use: Never Used Second Hand Smoke Exposure: No Advance Directives Date on File: 08/12/20 service: No Current occupational status: disabled Sexual orientation: Straight/Heterosexual Cognitive needs: Yes (cane) Hearing needs: No Vision needs: Yes (Glasses) Female Reproductive History Menstrual Age of Menarche: 10 Physical Exam Vital Signs: Last Vital Signs Temp 97.9 F 05/24/23 12:37 Pulse 77 05/24/23 12:37 BP 126/70 05/24/23 12:37 Pulse Ox 97 05/24/23 12:37 Oxygen Delivery Method Room Air 05/24/23 12:37 BMI result Body Mass Index 20.5 Const General: cooperative and healthy appearing Nutritional Appearance: well nourished Orientation/consciousness: patient oriented x3 Limitations: no limitations HEENT Head: Yes normal to inspection Eyes General: appearance normal, both eyes and all related structures Neck Other: Bilateral trapezius muscle tenderness Neck: Yes normal visual inspection Chest Chest palpation & inspection: normal palpation of entire chest wall Resp Effort & Inspection: normal respiratory effort Skin Other: Myrtle in place on the scalp. Wound approx is adequate. Neuro General: patient oriented x3 Assessment & Plan Assessment & Plan (1) Acute neck sprain: Code(s): S13.9XXA - Sprain of joints and ligaments of unspecified parts of neck, initial encounter Plan: Pt reassured that scalp wound looks intact. Muscle relaxants added to the regimen. If sx do not improve to follow up here. Coding Level of Care Code Est Pt Level 3 (00674) Diagnoses Acute neck sprain S13.9XXA
== END 2023-05-24 13:48 | disposition home or self-care (01) ==
PROVIDERS: PCP Internal Medicine; Visit Provider Internal Medicine
DX: S13.9XXA Sprain of joints and ligaments of unspecified parts of neck, initial encounter (principal)
CPT/HCPCS: 99213

== ENCOUNTER 2023-07-04 11:43 | Outpatient (REF) | payer OTHER, SELFPAY | END 2023-07-04 11:44 | disposition home or self-care (01) | LOC: HO.LAB 11:43 | PROVIDERS: PCP Internal Medicine; Visit Provider Internal Medicine | DX: Z13.89 Encounter for screening for other disorder (principal) ==

== ENCOUNTER 2023-07-07 12:02 | Outpatient (REF) | payer OTHER, SELFPAY ==
[2023-07-11 21:34] LABS: Antibody to SS-A Antigen <1.0 NEG AI (<1.0 NEG); Antibody to SS-B Antigen <1.0 NEG AI (<1.0 NEG); Scleroderma 70 Antibody <1.0 NEG AI (<1.0 NEG)
== END 2023-07-07 12:03 | disposition home or self-care (01) ==
LOC: HO.LAB 12:02
PROVIDERS: PCP Internal Medicine; Visit Provider Internal Medicine
DX: R76.8 Other specified abnormal immunological findings in serum (principal); R68.2 Dry mouth, unspecified; H04.123 Dry eye syndrome of bilateral lacrimal glands; M79.7 Fibromyalgia
CPT/HCPCS: 36415; 86235

== ENCOUNTER 2023-07-26 08:55 | Outpatient (REF) | payer OTHER, SELFPAY ==
--- NOTE | 2023-07-26 09:03 | ECG_ITS ---
Test Reason : preop Blood Pressure : / mmHG Vent. Rate : 074 BPM Atrial Rate : 074 BPM P-R Int : 156 ms QRS Dur : 074 ms QT Int : 398 ms P-R-T Axes : 073 061 074 degrees QTc Int : 441 ms Normal sinus rhythm Normal ECG When compared with ECG of 02-FEB-2023 13:02, No significant change was found Referred By: Chuck Davila Electronically Signed By:Cipriano Hudson
[2023-07-26 09:10] LABS: MANUAL DIFF FLAG NO
[2023-07-26 09:37] LABS: Basophils Percent Auto 0.3 % (0-2); Eosinophils Percent Auto 1.3 % (0-4); Hematocrit 34.6 % (37.0-47.0); Hemoglobin 11.2 g/dl (12.0-16.0); Imm Gran Abs Auto 0.01 X10*3/uL (0.00-0.03); Imm Gran Pct Auto 0.3 % (0.0-0.4); Lymphocytes Absolute Auto 0.8 X10*3/uL (1.2-4.9); Lymphocytes Percent Auto 25.4 % (20-40); Mean Corpuscular HGB Conc 32.4 g/dl (31.0-35.0); Mean Corpuscular Hemoglobin 27.4 pg (27.0-33.0); Mean Corpuscular Volume 84.6 fL (80.0-98.0); Mean Platelet Volume 9.8 fL (9.4-12.3); Monocytes Absolute Auto 0.2 X10*3/uL (0.1-1.2); Monocytes Percent Auto 7.8 % (2-11); Neutrophils Percent Auto 64.9 % (45-73); Platelet Count 189 X10*3/uL (160-400); Red Blood Count 4.09 X10*6/uL (4.20-5.50); Red Cell Distribution Width 13.2 % (11.0-16.0); White Blood Count 3.1 X10*3/uL (4.8-10.8)
[2023-07-26 10:06] LABS: Alanine Aminotransferase 11 U/L (0-31); Alkaline Phosphatase 59 U/L (39-117); Anion Gap 12 (12-20); Aspartate Amino Transferase 17 U/L (5-31); Bilirubin Total 0.5 mg/dL (0.0-1.0); Blood Urea Nitrogen 16 mg/dL (9-16); Calcium 9.5 mg/dL (8.4-10.2); Carbon Dioxide 28 mmol/L (22-29); Chloride 104 mmol/L (96-108); Cholesterol 208 mg/dL (<200); Estimated Glomerular Filt Rate > 60; Glucose Fasting 68 mg/dL (60-99); Glucose Random 68 mg/dL (60-115); HDL Cholesterol 76 mg/dL (>40); LDL Cholesterol Calculated 120 mg/dL (<100); Potassium 3.6 mmol/L (3.3-5.1); Sodium 140 mmol/L (135-145); Total Protein 6.9 g/dL (6.5-8.0); Triglycerides 63 mg/dL (<150)
[2023-07-26 10:26] LABS: Free T4 (Free Thyroxine) 1.08 ng/dL (0.71-1.85); Thyroid Stimulating Hormone 1.23 uIU/mL (0.32-4.0); Vitamin D 25-OH Total 39.4 ng/mL (>30)
[2023-07-26 10:27] LABS: Appearance Urine Hazy; Color Urine Yellow; Glucose Urine UA Negative (Negative); Leukocyte Esterase Urine Negative (Negative); Nitrite Urine Negative (Negative); Urine Blood Negative (Negative); Urine Ketones Negative (Negative); Urine Protein Negative (Neg-Trace)
== END 2023-07-26 08:56 | disposition home or self-care (01) ==
LOC: HO.LAB 08:55
PROVIDERS: PCP Internal Medicine; Visit Provider Internal Medicine
DX: Z01.818 Encounter for other preprocedural examination (principal); I10 Essential (primary) hypertension; E03.9 Hypothyroidism, unspecified; E78.00 Pure hypercholesterolemia, unspecified; R30.0 Dysuria; E55.9 Vitamin D deficiency, unspecified
CPT/HCPCS: 36415; 80053; 80061; 81003; 82306; 84439; 84443; 85025; 93005

== ENCOUNTER → 2023-07-26 09:03 | Outpatient (BNV) | payer OTHER, SELFPAY | PROVIDERS: PCP Internal Medicine; Visit Provider Internal Medicine Cardiovascular Disease | DX: I10 Essential (primary) hypertension (principal); Z01.810 Encounter for preprocedural cardiovascular examination | CPT/HCPCS: 93010 ==

== ENCOUNTER 2023-07-26 09:32 | Outpatient (AMB) | payer OTHER, SELFPAY ==
--- NOTE | 2023-07-26 09:34 | A.OFFPC_ITS ---
Vital Signs 07/26/23 09:40 Height 5 ft 3 in Weight 118 lb 6 oz BMI 21.0 BP 118/74 Blood Pressure Location Lt brachial Position Sitting Pulse 81 Pulse Source Pulse Oximeter Pulse Oximetry (%) 97 Oxygen Delivery Method Room Air Intake Visit Reasons: Clearance for Tummy Tuck08/01/23 Intake Note: Patient is here for a Pre-op for Tummy Tuck scheduled with Dr Jayde Quick([facility] fax [phone]) on 08/01/23. Sensor Technician Required: Yes Sensor Technician Language: High Density Talc Coater Operator Name: Trudi (daughter) Information Interpreted: non-clinical & clinical Resist Coater Developer: Present Accompanied by: Daughter Allergies Sulfa (Sulfonamide Antibiotics) Allergy (Severe, Verified 07/26/23 10:28) Itching codeine [CODEINE] Allergy (Intermediate, Verified 07/26/23 10:28) ITCHING hydroxychloroquine [From PLAQUENIL] Allergy (Intermediate, Verified 07/26/23 10:28) VOMITING morphine [MORPHINE] Allergy (Intermediate, Verified 07/26/23 10:28) ITCHING Estrogens Allergy (Mild, Verified 07/26/23 10:28) Unknown levothyroxine sodium Allergy (Unknown, Verified 07/26/23 10:28) rash,throat closes prednisone Allergy (Unknown, Verified 07/26/23 10:28) Unknown Corticosteroids (Glucocorticoids) [CORTICOSTEROIDS (GLUCOCORTICOIDS)] Adverse Reaction (Severe, Verified 07/26/23 10:28) DIFFICULTY BREATHING escitalopram [From Lexapro] Adverse Reaction (Severe, Verified 07/26/23 10:28) seizure meloxicam Adverse Reaction (Severe, Verified 07/26/23 10:28) Gastrointestinal Upset tadalafil [From Cialis] Adverse Reaction (Intermediate, Verified 07/26/23 10:28) Nausea and Vomiting acetaminophen [Percocet] Adverse Reaction (Unknown, Verified 07/26/23 10:28) Unknown duloxetine Adverse Reaction (Unknown, Verified 07/26/23 10:28) Unknown Medication List - Last Reconciled 07/26/23 by Chuck Davila MD amitriptyline 50 mg PO BEDTIME ammonium lactate 12% 1 appl topical BID bisacodyl (Laxative (bisacodyl)) 10 mg (2 x 5 mg) PO BEDTIME bupropion HCl 150 mg PO Q OTHER DAY calcipotriene 0.005% 1 appl topical QAM calcium citrate 500 mg (2 x 250 mg calcium) PO BID chlorhexidine gluconate 0.12% 15 mL PO BID cholecalciferol (vitamin D3) 50 mcg PO DAILY cimetidine 800 mg PO BID 90 days clonazepam 1 mg PO BID dexlansoprazole (Dexilant) 60 mg PO DAILY 30 days diclofenac sodium 1% 2 grams topical QID doxepin 10 mg PO BEDTIME PRN 30 days [EMERGENCY ALERT BRACELET As directed] gabapentin 300 mg PO TID ketorolac 10 mg PO Q8H PRN 7 days lidocaine 5% 1 patch topical DAILY PRN lifitegrast 5% (Xiidra) 1 drp ophthalmic (eye) BID [LIGHTWEIGHT WALKER (child size) As directed] multivitamin with folic acid 400 mcg (Daily-Dottie (with folic acid)) 1 tab PO DAILY onabotulinumtoxinA (Botox) 200 units IM ondansetron HCl 4 mg PO BID-TID PRN 30 days orphenadrine citrate ER 100 mg PO BID 4 days oxcarbazepine 150 mg PO BID oxybutynin chloride ER 10 mg PO DAILY simethicone 180 mg PO QID 30 days sod picosulf-mag ox-citric ac 10 mg-3.5 gram- 12 gram/160 mL (Clenpiq) 160 mL PO DAILY 2 doses sod picosulf-mag ox-citric ac 10 mg-3.5 gram- 12 gram/175 mL (Clenpiq) 175 mL PO ONCE 2 doses Synthroid (levothyroxine) 50 mcg PO DAILY 90 days NS tramadol 50 mg PO Q6H PRN trazodone 50 mg PO BEDTIME PRN Ventolin HFA 90 mcg/actuation (albuterol sulfate) 2 puffs inhalation Q6H PRN NS Tobacco use date assessed: 07/26/23 Dental Screening Dental Screen Date: 07/26/23 Did you have a dental visit in the last 12 months?: Yes Did you have a dental problem in the last 6 months where you did not have access to dental care?: No Was dental information given to patient?: Patient has dentist HPI Clearance for Doc [facility]08/01/23 HPI Details Patient comes in today at the request of Dr. Jayde Quick for a preoperative medical examination for clearance for surgery She is scheduled for abdominoplasty with liposuction under general anesthesia on 08/01/2023 Patient states that she still has occasional headaches (migraine) but they have been better controlled lately; denies any dizziness She denies any chest pains, no increased SOB No nausea/vomiting, no abdominal pain No change in bowel habits noted States that she had her preop EKG and labs done at the hospital earlier today She continues to [place] [facility] and at her last visit with Dr. Izquierdo in November 2022, was advised that she did not appear to have any evidence of an inflammatory joint disease even though some of her disease markers were positive and that most of her symptoms are likely due to fibromyalgia and her mood disorder She does have a follow up appointment scheduled with Dr. Jimenez on 07/31/[address] Izquierdo has since retired from active practice [facility] Medical History Estrogen receptor positive status [ER+] Ductal carcinoma in situ (DCIS) of left breast Autoimmune disorder PTSD (post-traumatic stress disorder) COVID-19 Insomnia Bilateral knee pain Fibromyalgia Schatzki's ring Rheumatoid arthritis Small bowel motility disorder Vitamin D deficiency Hypothyroidism Osteoporosis Raynaud's disease without gangrene Lupus (systemic lupus erythematosus) Seropositive rheumatoid arthritis Bipolar depression Anxiety Primary insomnia History of breast cancer Constipation Polyarthralgia Leukopenia Acquired hypothyroidism Systemic lupus erythematosus Gingivitis Left temporomandibular joint disorder, unspecified Surgical History History of esophagogastroduodenoscopy (EGD) Hx of colonoscopy History of bilateral mastectomy History of total abdominal hysterectomy and bilateral salpingo-oophorectomy History of cholecystectomy History of tubal ligation History of section Family History Father Hypertension Prostate cancer Mother Breast cancer Hypertension Asthma Maternal Aunt Breast cancer Maternal Grandmother Colon cancer Maternal Aunt Breast cancer Social History Household Members: Children Household Members Other:: 2 daughters Housing: House Do you presently have visiting nurse or other home services: No Alcohol intake: current Alcohol intake frequency: does not drink Patient Tobacco Use Status: Never used Tobacco e-Cigarette/Vaping Use: Never Used Second Hand Smoke Exposure: No Advance Directives Date on File: 08/12/20 service: No Current occupational status: disabled Sexual orientation: Straight/Heterosexual Cognitive needs: Yes (cane) Hearing needs: No Vision needs: Yes (Glasses) Female Reproductive History Menstrual Age of Menarche: 10 Questionnaire Thrive Questionnaire Date Thrive assessed: 04/17/23 I am a: Patient What is your living situation today?: I have a steady place to live Within the past 12 months, did the food you bought not last and you didn't have the money to get more?: Never true Within the past 12 months, did you worry whether your food would run out before you got money to buy more?: Never true Do you have trouble paying for medicines?: No Do you have trouble getting transportation to medical appointments?: No Do you have trouble paying your heating and electricity bill?: No Do you have trouble taking care of your child, family member or friend?: No Do you have trouble with day-to-day activities such as bathing, preparing meals, shopping, managing finances, etc.?: No Are you currently unemployed and looking for a job?: No Are you interested in more education?: No THRIVE Score: 0 MOSHE-7 AMB Questionnaire MOSHE-7 Date MOSHE - 7 assessed: 07/26/23 Feeling nervous, anxious, or on edge: 1 = Several days (on medication) Not being able to stop or control worryin = Not at all Worrying too much about different things: 0 = Not at all Trouble relaxin = Not at all Being so restless that it is hard to sit still: 0 = Not at all Becoming easily annoyed or irritable: 0 = Not at all Feeling afraid as if something awful might happen: 0 = Not at all Total MOSHE-7 score (0-4 normal; 5-9 mild; 10-14 moderate; 15-21 severe): 1 Source: Developed by Drs. Som Barrera, Stephy Taylor, Michele Li and colleagues, with an educational coleman from [employer]. Review of Systems Const Denies chills, Reports fatigue (chronic), Denies fever(s) and Reports headache(s) (on and off) ENT Denies dysphagia, Denies dizziness, Denies otalgia, Reports headache(s) (on and off), Reports neck pain, Denies odynophagia, Denies sinus pain and Denies sore throat Card Denies chest pain, Denies palpitations and Reports dyspnea on exertion (mild, chronic) Resp Denies chest congestion, Denies cough, Reports dyspnea on exertion (mild, chronic) and Denies wheezing GI Denies abdominal pain, Reports constipation (Rx helping), Denies dysphagia, Denies heartburn, Denies diarrhea, Denies nausea, Denies odynophagia and Denies vomiting Denies hematuria, Reports nocturia, Denies dysuria and Denies urinary urgency Musc Reports back pain (over the lower back, on and off), Reports arthralgias (involving multiple joints but no consistency noted) and Reports neck pain Skin/Breast Denies rash Neuro Denies dizziness and Reports headache(s) (on and off) Psych Reports anxiety Endo Reports fatigue (chronic) and Denies palpitations Aller/Immun Denies wheezing Physical exam (Primary Care) Vital Signs: Last Vital Signs Pulse 81 07/26/23 09:40 BP 118/74 07/26/23 09:40 Pulse Ox 97 07/26/23 09:40 Oxygen Delivery Method Room Air 07/26/23 09:40 BMI result Body Mass Index 21.0 Tobacco/Smoking Status: Tobacco use Status Tobacco use date assessed 07/26/23 07/26/23 09:52 Patient Tobacco Use Status Never used Tobacco 07/26/23 09:52 e-Cigarette/Vaping Use Never Used 07/26/23 09:52 Thrive Assessment: Date of Thrive Assessment Date Thrive assessed 04/17/23 07/26/23 09:52 Const General: no acute distress and alert HENMT Ears: TM's normal bilaterally and EAC's normal Throat: Yes posterior oropharynx normal and Yes tonsils normal Neck Neck: Yes no lymphadenopathy and Yes supple Thyroid: Thyroid normal Resp Auscultation: clear to auscultation bilaterally, no rales and no wheezes Cardio Rate: regular rate Rhythm: regular rhythm Heart sounds: no murmurs GI Other: (+) excess pannus over the entire anterior aspect of her lower abdomen Palpation (GI): Soft to palpation and nontender Auscultation: normal bowel sounds General: Yes no CVA tenderness Back/Spine/Pelvis Back: no CVA tenderness Thoracic/Lumbar Spine: paraspinal muscle tenderness (mild) bilaterally in the mid lumbar and in the lower lumbar Skin Rashes: no rashes Extrem General: Yes no clubbing, cyanosis or edema Results Reviewed Results Reviewed: Laboratory Tests 07/26/23 09:04 WBC 3.1 L Hgb 11.2 L Hct 34.6 L Plt Count 189 Sodium 140 Potassium 3.6 Creatinine 0.65 Estimated GFR > 60 Fasting Glucose 68 Calcium 9.5 AST 17 ALT 11 Triglycerides 63 Cholesterol 208 H LDL Cholesterol, Calc 120 H HDL Cholesterol 76 Laboratory Tests 07/26/23 09:04 25-OH Vitamin D Total 39.4 TSH 1.23 Free T4 1.08 Assessment and Plan Assessment & Plan (1) Preoperative examination: Code(s): Z01.818 - Encounter for other preprocedural examination Plan: Patient presents with acceptable risks for planned intermediate cardiac risk procedure She does not have any preexisting cardiac history or diabetes that can significantly elevate her risks for abdominoplasty and currently does not appear to have any medical contraindications to undergo said procedure Her 12 lead EKG done at the hospital earlier today came out normal Results of her labs done earlier today reviewed and discussed with patient - labs are all mostly within normal or acceptable range (2) Abdominal pannus: Code(s): E65 - Localized adiposity Plan: She is scheduled for abdominoplasty with liposuction under general anesthesia on 08/01/[address] Jayde Quick (3) Fibromyalgia: Code(s): M79.7 - Fibromyalgia Plan: Patient was seeing Dr. [facility]re[facility] [place] previously and has been reportedly advised that although she tested positive for DANA, all other workups were negative and she has no clinical evidence of active disease and there is no indication for treatment for lupus or RA at the time She was seen by rheumatology here [place] [facility] and was advised of the same - that she has no evidence of active inflammatory joint disease and there is no indication for therapy Lumbar spine x-rays done last year came back normal Continue Lidocaine patches PRN and Gabapentin 300 mg TID Patient is again encouraged to stay active and exercise regularly (as tolerated) to help manage her fibromyalgia symptoms (4) Polyarthralgia: Code(s): M25.50 - Pain in unspecified joint Plan: Continue Orphenadrine ER 100 mg BID, Diclofenac sodium 1% gel topically PRN and Toradol 10 mg Q 8 hours PRN Follow up with [facility] as scheduled She was going to physical therapy previously but states that she did not experience any relief from PT and has been advised to consider a referral to physiatry instead (5) Dystonia: Code(s): G24.9 - Dystonia, unspecified Plan: She is receiving botox injections from neurology when needed Follow up with neurology as scheduled (6) Headache: Code(s): R51.9 - Headache, unspecified Qualifiers: Headache type: unspecified Headache chronicity pattern: episodic headache Intractability: not intractable Qualified Code(s): R51.9 - Headache, unspecified Plan: She was diagnosed with possible tension headaches by neurology and started on Amitriptyline 50 mg Q HS and states that Rx has been helping a lot Follow up with neurology as scheduled (7) Acquired hypothyroidism: Code(s): E03.9 - Hypothyroidism, unspecified Plan: Her TFTs were normal on her recent labs Continue Synthroid 50 mcg QD Follow up with endocrinology as scheduled (8) Anemia: Code(s): D64.9 - Anemia, unspecified Qualifiers: Anemia type: unspecified type Qualified Code(s): D64.9 - Anemia, unspecified Plan: Mild Continue Feosol 65 mg every other day - patient gets very constipated when she takes Rx daily Will recheck her CBC in 4 months for follow up (9) Osteoporosis: Code(s): M81.0 - Age-related osteoporosis without current pathological fracture Qualifiers: Osteoporosis type: unspecified Presence of current pathological fracture: without current pathological fracture Qualified Code(s): M81.0 - Age- related osteoporosis without current pathological fracture Plan: Continue daily oral calcium and Vitamin D supplements Fall precautions reinforced Follow up with endocrinology as scheduled - she has been referred by Dr. Brandon to [place] for a second opinion (10) Vitamin D deficiency: Code(s): E55.9 - Vitamin D deficiency, unspecified Plan: Continue Vitamin D2 [id number] units once a week (11) GERD (gastroesophageal reflux disease): Code(s): K21.9 - Gastro-esophageal reflux disease without esophagitis Qualifiers: Esophagitis presence: without esophagitis Qualified Code(s): K21.9 - Gastro-esophageal reflux disease without esophagitis Plan: Dietary restrictions reinforced Continue Dexilant 60 mg QD (12) Chronic idiopathic constipation: Code(s): K59.04 - Chronic idiopathic constipation Plan: Continue Bisacodyl PRN and Colace 100 mg QD PRN Encouraged increased oral fluids and disetary fiber Follow up with GI as scheduled (13) Interstitial cystitis: Code(s): N30.10 - Interstitial cystitis (chronic) without hematuria Plan: Urinary bladder US done a few months ago revealed (+) posterior wall trabeculations but no generalized bladder wall thickening and no masses or calculi noted S/P cystoscopy with hydrodistention by urology a couple of months ago - she appears to have experienced significant improvement of her symptoms with the procedure Patient is again encouraged to increase her oral fluid intake and advised that drinking cranberry juice may help with her symptoms Follow up with urology as scheduled (14) Insomnia: Code(s): G47.00 - Insomnia, unspecified Qualifiers: Insomnia type: unspecified Qualified Code(s): G47.00 - Insomnia, uns pecified Plan: Sleep hygiene reinforced Continue Trazodone 50 mg Q HS (15) Anxiety: Code(s): F41.9 - Anxiety disorder, unspecified Plan: Continue Clonazepam 1 mg BID PRN (16) Bipolar depression: Code(s): F31.9 - Bipolar disorder, unspecified Plan: Continue Bupropion ER 150 mg QOD Follow-up with Psychiatry as scheduled Plan Patient is currently medically optimized and has NO CONTRAINDICATIONS to undergo abdominoplasty with liposuction next week as planned Follow up in 4 months Orders: Orders Complete Blood Count Auto Diff 4 Months D64.9 - Anemia, unspecified Comprehensive [place]. Panel Fast 4 Months E78.00 - Pure hypercholesterolemia, unspecified Free T4 (Free Thyroxine) 4 Months E03.9 - Hypothyroidism, unspecified Lipid Panel 4 Months E78.00 - Pure hypercholesterolemia, unspecified Vitamin D 25-OH Total 4 Months E55.9 - Vitamin D deficiency, unspecified UA CC w/rflx Micro + Cult 4 Months R30.0 - Dysuria Thyroid Stimulating Hormone 4 Months E03.9 - Hypothyroidism, unspecified Coding Level of Care Code Est Pt Level 4 (87110) Diagnoses Preoperative examination Z01.818 Abdominal pannus E65 Fibromyalgia M79.7 Polyarthralgia M25.50 Dystonia G24.9 Nonintractable episodic headache, unspecified headache type R51.9 Headache type: unspecified Headache chronicity pattern: episodic headache Intractability: not intractable Acquired hypothyroidism E03.9 Anemia, unspecified type D64.9 Anemia type: unspecified type Osteoporosis without current pathological fracture, unspecified osteoporosis type M81.0 Osteoporosis type: unspecified Presence of current pathological fracture: without current pathological fracture Vitamin D deficiency E55.9 Gastroesophageal reflux disease without esophagitis K21.9 Esophagitis presence: without esophagitis Chronic idiopathic constipation K59.04 Interstitial cystitis N30.10 Insomnia, unspecified type G47.00 Insomnia type: unspecified Anxiety F41.9 Bipolar depression F31.9
[2023-07-26 09:40] VITALS: BP 118/74; PULSE 81; O2SAT 97; BMI 21.0
== END 2023-07-26 10:30 | disposition home or self-care (01) ==
PROVIDERS: PCP Internal Medicine; Visit Provider Internal Medicine
DX: E65 Localized adiposity (principal); F31.9 Bipolar disorder, unspecified; Z01.818 Encounter for other preprocedural examination; M79.7 Fibromyalgia; M25.50 Pain in unspecified joint; G24.9 Dystonia, unspecified; R51.9 Headache, unspecified; E03.9 Hypothyroidism, unspecified; D64.9 Anemia, unspecified; M81.0 Age-related osteoporosis without current pathological fracture; E55.9 Vitamin D deficiency, unspecified; K21.9 Gastro-esophageal reflux disease without esophagitis
CPT/HCPCS: 99214

== ENCOUNTER 2023-09-11 10:00 | Outpatient (AMB) | payer OTHER, SELFPAY ==
--- NOTE | 2023-09-11 10:24 | A.OFFVIS_ITS ---
Intake Visit Reasons: 6m follow up Intake Note: Patient is present for follow up interstitial cystitis Urology Medications: oxybutynin Blood Thinner:none PVR: 31ml's Modeling Director Required: Yes Accompanied by: Daughter Allergies Sulfa (Sulfonamide Antibiotics) Allergy (Severe, Verified 09/11/23 11:00) Itching codeine [CODEINE] Allergy (Intermediate, Verified 09/11/23 11:00) ITCHING hydroxychloroquine [From PLAQUENIL] Allergy (Intermediate, Verified 09/11/23 11:00) VOMITING morphine [MORPHINE] Allergy (Intermediate, Verified 09/11/23 11:00) ITCHING Estrogens Allergy (Mild, Verified 09/11/23 11:00) Unknown levothyroxine sodium Allergy (Unknown, Verified 09/11/23 11:00) rash,throat closes prednisone Allergy (Unknown, Verified 09/11/23 11:00) Unknown Corticosteroids (Glucocorticoids) [CORTICOSTEROIDS (GLUCOCORTICOIDS)] Adverse Reaction (Severe, Verified 09/11/23 11:00) DIFFICULTY BREATHING escitalopram [From Lexapro] Adverse Reaction (Severe, Verified 09/11/23 11:00) seizure meloxicam Adverse Reaction (Severe, Verified 09/11/23 11:00) Gastrointestinal Upset tadalafil [From Cialis] Adverse Reaction (Intermediate, Verified 09/11/23 11:00) Nausea and Vomiting acetaminophen [Percocet] Adverse Reaction (Unknown, Verified 09/11/23 11:00) Unknown duloxetine Adverse Reaction (Unknown, Verified 09/11/23 11:00) Unknown Medication List - Last Reconciled 09/11/23 by TRINY Jiang amitriptyline 50 mg PO BEDTIME ammonium lactate 12% 1 appl topical BID bisacodyl (Laxative (bisacodyl)) 10 mg (2 x 5 mg) PO BEDTIME bupropion HCl XL 150 mg PO Q OTHER DAY calcipotriene 0.005% 1 appl topical QAM calcium citrate 500 mg (2 x 250 mg calcium) PO BID chlorhexidine gluconate 0.12% 15 mL PO BID cholecalciferol (vitamin D3) (Vitamin D3) 50 mcg PO DAILY cimetidine 800 mg PO BID 90 days clonazepam 1 mg PO BID dexlansoprazole (Dexilant) 60 mg PO DAILY 30 days diclofenac sodium 1% 2 grams topical QID doxepin 10 mg PO BEDTIME PRN 30 days [EMERGENCY ALERT BRACELET As directed] gabapentin 300 mg PO TID ketorolac 10 mg PO Q8H PRN 7 days lidocaine 5% 1 patch topical DAILY PRN lifitegrast 5% (Xiidra) 1 drp ophthalmic (eye) BID [LIGHTWEIGHT WALKER (child size) As directed] multivitamin with folic acid 400 mcg (Daily-Dottie (with folic acid)) 1 tab PO DAILY onabotulinumtoxinA (Botox) 200 units IM ondansetron HCl 4 mg PO BID-TID PRN 30 days orphenadrine citrate ER 100 mg PO BID 4 days oxcarbazepine 150 mg PO BID oxybutynin chloride ER 10 mg PO DAILY simethicone 180 mg PO QID 30 days sod picosulf-mag ox-citric ac 10 mg-3.5 gram- 12 gram/160 mL (Clenpiq) 160 mL PO DAILY 2 doses sod picosulf-mag ox-citric ac 10 mg-3.5 gram- 12 gram/175 mL (Clenpiq) 175 mL PO ONCE 2 doses Synthroid (levothyroxine) 50 mcg PO DAILY 90 days NS tramadol 50 mg PO Q6H PRN trazodone 50 mg PO BEDTIME PRN Ventolin HFA 90 mcg/actuation (albuterol sulfate) 2 puffs inhalation Q6H PRN NS HPI Comments Details: Zara is a very pleasant 57-year-old Danish-speaking female patient of Dr. Davila who was accompanied by her daughter at today's visit. She has a past medical history of hypothyroidism, anxiety, bipolar, depression, constipation, ductal carcinoma in Situ of left breast, fibromyalgia, insomnia, leukopenia, lupus, osteoporosis, polyarthralgia, PTSD, Raynaud's, rheumatoid arthritis, and vitamin-D deficiency. She presents to the office today for follow-up of her lo wer urinary tract symptoms (urinary urgency, frequency, dysuria with bladder spasm) most likely interstitial cystitis. In discussion with the patient today she reports to be doing and feeling well. She reports having had no flare-ups of her interstitial cystitis. She reports ever since she underwent cystoscopy hydrodistention with Dr. Keita 03/23 she has been doing and feeling well. She currently denies any bothersome urinary issues or concerns. She denies urinary urgency, urinary frequency, incontinence, nocturia, hematuria, dysuria, foul smelling urine, changes to urinary stream, flank pain, fever, and or chills. She is happy with her current voiding parameters. In office urinalysis results reviewed with the patient today. PVR 31 mL. Previous workup has included a retroperitoneal ultrasound noting posterior bladder wall trabeculations possibly related to history of cystitis or hypertrophy. She has trialed low-dose Cialis however experienced reaction of swelling and itching. Initial trial of Pyridium with oxybutynin however she did not find this helpful. Discussed and stressed the importance of bladder triggers/irritants. She otherwise offers no other issues or concerns at this time. [facility] Medical History Estrogen receptor positive status [ER+] Ductal carcinoma in situ (DCIS) of left breast Autoimmune disorder PTSD (post-traumatic stress disorder) COVID-19 Insomnia Bilateral knee pain Fibromyalgia Schatzki's ring Rheumatoid arthritis Small bowel motility disorder Vitamin D deficiency Hypothyroidism Osteoporosis Raynaud's disease without gangrene Lupus (systemic lupus erythematosus) Seropositive rheumatoid arthritis Bipolar depression Anxiety Primary insomnia History of breast cancer Constipation Polyarthralgia Leukopenia Acquired hypothyroidism Systemic lupus erythematosus Gingivitis Left temporomandibular joint disorder, unspecified Surgical History History of esophagogastroduodenoscopy (EGD) Hx of colonoscopy History of bilateral mastectomy History of total abdominal hysterectomy and bilateral salpingo-oophorectomy History of cholecystectomy History of tubal ligation History of section Family History Father Hypertension Prostate cancer Mother Breast cancer Hypertension Asthma Maternal Aunt Breast cancer Maternal Grandmother Colon cancer Maternal Aunt Breast cancer Social History Household Members: Children Household Members Other:: 2 daughters Housing: House Do you presently have visiting nurse or other home services: No Alcohol intake: current Alcohol intake frequency: does not drink Patient Tobacco Use Status: Never used Tobacco e-Cigarette/Vaping Use: Never Used Second Hand Smoke Exposure: No Advance Directives Date on File: 08/12/20 service: No Current occupational status: disabled Sexual orientation: Straight/Heterosexual Cognitive needs: Yes (cane) Hearing needs: No Vision needs: Yes (Glasses) Female Reproductive History Menstrual Age of Menarche: 10 Review of Systems Const Reports as per [facility] Eyes Reports no additional complaints ENT Reports no additional complaints Card Reports as per [facility] Resp Reports no additional complaints GI Reports as per [facility] Reports as per [facility] Musc Reports as per [facility] Skin/Breast Reports as per [facility] Neuro Reports as per [facility] Psych Reports as per [facility] Endo Reports as per HPI Aller/Immun Reports as per HPI Physical Exam Const General: cooperative, healthy appearing, comfortable, no acute distress, well developed, alert and awake Nutritional Appearance: average body habitus Orientation/consciousness: patient oriented x3 Limitations: ambulation with cane HEENT Head: Yes normal to inspection, Yes normocephalic and Yes atraumatic Ears: hearing grossly normal bilaterally Eyes General: appearance normal, both eyes and all related structures Neck Neck: Yes normal visual inspection and Yes trachea midline Chest Chest palpation & inspection: normal inspection of the chest Resp Effort & Inspection: normal respiratory effort and able to speak in complete sentences Cardio Rate: regular rate GI Inspection: Yes normal to inspection General: Yes no CVA tenderness Back/Spine/Pelvis Back: no CVA tenderness Skin General skin exam: no rashes or lesions noted Neuro General: patient oriented x3 Extrem General: Yes normal to inspection Psych Appearance: grossly normal and well kempt Mental Status: mental status grossly normal Speech and movement: Normal speech and movement present and Clear speech present Affect: normal affect Attitude: cooperative Thought process: Normal thought process present Thought content: Normal thought content present Insight: Fair insight present (Psych) Judgement: Fair judgement present (Psych) Office Procedures Post Void Residual Post Residual Void Post Void Residual (PVR): 31 [id number] Void Residual by ultrasound Results AMB Urinalysis, Automated UA Leukoctes 0 Kristie/uL Last Edit by Tina Cabral on 09/11/23 10:45 UA Nitrite Negative Last Edit by Tina Cabral on 09/11/23 10:45 UA Urobilinogen 0.2 mg/dL Last Edit by [employer] Cabral on 09/11/23 10:45 UA Protein 15 mg/dL Last Edit by Tina Cabral on 09/11/23 10:45 UA pH 6.0 Last Edit by Tina Cabral on 09/11/23 10:45 UA Blood 0 Josue/uL Last Edit by Tina Mariamcolby on 09/11/23 10:45 UA Specific [place] 1.025 Last Edit by Tina Mariamcolby on 09/11/23 10:45 UA Ketone Negative Last Edit by Tina Cabral on 09/11/23 10:45 UA Bilirubin 1 mg/dL Last Edit by Tina Cabral on 09/11/23 10:45 UA Glucose 0 mg/dL Last Edit by Tina Cabral on 09/11/23 10:45 Results Reviewed Results Reviewed: Laboratory Last Values Urine pH (Auto) 6.0 09/11/23 10:31 Specific [place] (Auto) 1.025 09/11/23 10:31 Urine Protein (Auto) 15 mg/dL 09/11/23 10:31 Glucose (UA)(Auto) 0 mg/dL 09/11/23 10:31 Urine Ketones (Auto) Negative 09/11/23 10:31 Urine Blood (Auto) 0 Josue/uL 09/11/23 10:31 Urine Nitrite (Auto) Negative 09/11/23 10:31 Urine Bilirubin (Auto) 1 mg/dL 09/11/23 10:31 Urine Urobilinogen (Auto) 0.2 mg/dL 09/11/23 10:31 Leukocyte Esterase (Auto) 0 Kristie/uL 09/11/23 10:31 Assessment & Plan Assessment & Plan (1) Lower urinary tract symptoms: Code(s): R39.9 - Unspecified symptoms and signs involving the genitourinary system Category: Medical (2) Interstitial cystitis: Code(s): N30.10 - Interstitial cystitis (chronic) without hematuria Category: Medical (3) Urinary frequency: Code(s): R35.0 - Frequency of micturition Category: Medical (4) Recurrent cystitis: Code(s): N30.90 - Cystitis, unspecified without hematuria Category: Medical Plan In office urinalysis results reviewed with the patient today; as noted above. PVR 31 mL. Continue oxybutynin as needed for bladder spasms; however patient reports she has not needed to utilize this medication since March of 2023. Patient currently denies any bothersome urinary issues or concerns. She reports be happy with current voiding parameters. Discussed bladder triggers/irritants. Discussed importance of drinking plenty of water daily. Follow-up in 6 months with PVR; or sooner with any issues, concerns, and or questions. Orders: Orders AMB Urinalysis Automated Today Z13.9 - Encounter for screening, unspecified AMB Post Void Residual by ultrasound Today R39.9 - Unspecified symptoms and signs involving the genitourinary system Medications: Discontinued tramadol Discontinued Reason: Patient Completed Course 50 mg PO Q6H PRN 14 tabs 0RF pain (scale score 4-6) Patient Instructions: The patient had an opportunity to ask questions regarding the treatment plan. All questions were answered. Physical exam, labs, and imaging were discussed and reviewed in detail. As well as risks, benefits, and discussion of treatment choices. No major barriers to understanding were identified. The patient expressed understanding and agreement with the above treatment plan. The patient was made aware they should contact our office by phone for worsening of their current condition, the appearance of new symptoms, or with any questions or concerns. Compliance is encouraged with any medications and follow up testing that is ordered. It is a privilege to be allowed the opportunity to participate in? your urological care.? Again, if you have any questions or concerns If you have any questions or concerns please do not hesitate to contact me. The office is [phone]. This note is constructed using voice recognition software. While every effort has been made to ensure accuracy pain medicine physician errors may have been included. Yours sincerely, TRINY Jiang Coding Level of Care Code Est Pt Level 3 (74357) Diagnoses Lower urinary tract symptoms R39.9 Interstitial cystitis N30.10 Urinary frequency R35.0 Recurrent cystitis N30.90 CPT Codes Post Residual Void - PVR CPT Code: 90599-Ffmj Void Residual by ultrasound ([id number])
== END 2023-09-11 10:59 | disposition home or self-care (01) ==
PROVIDERS: PCP Internal Medicine; Visit Provider Nurse Practitioner Family
DX: R39.9 Unspecified symptoms and signs involving the genitourinary system (principal); N30.10 Interstitial cystitis (chronic) without hematuria; R35.0 Frequency of micturition; N30.90 Cystitis, unspecified without hematuria; Z13.9 Encounter for screening, unspecified
CPT/HCPCS: 99213

== ENCOUNTER → 2023-09-11 10:00 | Outpatient (BNVA) | payer OTHER, SELFPAY | PROVIDERS: PCP Internal Medicine; Visit Provider Nurse Practitioner Family | DX: R39.9 Unspecified symptoms and signs involving the genitourinary system (principal); R35.0 Frequency of micturition; N30.10 Interstitial cystitis (chronic) without hematuria; N30.90 Cystitis, unspecified without hematuria | CPT/HCPCS: 51798; 81003; 99212 ==

== ENCOUNTER 2023-11-15 12:28 | Outpatient (AMB) | payer OTHER, SELFPAY ==
--- NOTE | 2023-11-15 12:30 | MHC.OFFVIS ---
Vital Signs 11/15/23 12:33 Height 5 ft 3 in BP 110/61 Blood Pressure Location Rt brachial Position Sitting Pulse 86 Pulse Source Monitor Intake Visit Reasons: 6 months follow up Intake Note: Patient is present for follow up Sales Contracts Analyst Required: Yes Sales Contracts Analyst Language: Field Support Rep Services: Sales Contracts Analyst Present Sales Contracts Analyst Name: Daughter Information Interpreted: non-clinical & clinical Surgical Services Tech: Surgical Services Tech Present Accompanied by: Daughter Allergies Sulfa (Sulfonamide Antibiotics) Allergy (Severe, Verified 11/15/23 12:36) Itching codeine [CODEINE] Allergy (Intermediate, Verified 11/15/23 12:36) ITCHING hydroxychloroquine [From PLAQUENIL] Allergy (Intermediate, Verified 11/15/23 12:36) VOMITING morphine [MORPHINE] Allergy (Intermediate, Verified 11/15/23 12:36) ITCHING Estrogens Allergy (Mild, Verified 11/15/23 12:36) Unknown levothyroxine sodium Allergy (Unknown, Verified 11/15/23 12:36) rash,throat closes prednisone Allergy (Unknown, Verified 11/15/23 12:36) Unknown Corticosteroids (Glucocorticoids) [CORTICOSTEROIDS (GLUCOCORTICOIDS)] Adverse Reaction (Severe, Verified 11/15/23 12:36) DIFFICULTY BREATHING escitalopram [From Lexapro] Adverse Reaction (Severe, Verified 11/15/23 12:36) seizure meloxicam Adverse Reaction (Severe, Verified 11/15/23 12:36) Gastrointestinal Upset tadalafil [From Cialis] Adverse Reaction (Intermediate, Verified 11/15/23 12:36) Nausea and Vomiting acetaminophen [Percocet] Adverse Reaction (Unknown, Verified 11/15/23 12:36) Unknown duloxetine Adverse Reaction (Unknown, Verified 11/15/23 12:36) Unknown HPI HPI 6 months follow up: Details: Assessment & Plan (1) Constipation: Code(s): K59.00 - Constipation, unspecified (2) GERD (gastroesophageal reflux disease): Code(s): K21.9 - Gastro-esophageal reflux disease without esophagitis Qualifiers: Esophagitis presence: without esophagitis Qualified Code(s): K21.9 - Gastro-esophageal reflux disease without esophagitis (3) Preoperative clearance: Code(s): Z01.818 - Encounter for other preprocedural examination (4) Family history of polyps in the colon: Comment: father and maternal grandmother crc Code(s): Z83.71 - Family history of colonic polyps (5) Tubular adenoma of colon: Comment: scope 2019 severe TICS, no polyps repeat 5 years 2023 Code(s): D12.6 - Benign neoplasm of colon, unspecified (6) Dysphagia: Comment: ORAL PHASE WITH CHOKING ON SOLID FOODS Code(s): R13.10 - Dysphagia, unspecified (7) Nausea: Code(s): R11.0 - Nausea Plan TURKISH #dtr interprets per pt request She is telling us she is due for colonoscopy. She also wants and EGD but she just had one in 2020, I explain this and that it is not warranted given the benign findings on her last exam. Apparently, the patient is worried because she has 2 relatives dx'ed with bone cancer and multiple myeloma. She is not getting her Dexilant but also still has the cimetidine. She says she has been using both of these because she has been having more abdominal cramping recently. She says that this starts in the lower abdomen but then progresses upwards although appt to her throat. She is also complaining of a dry mouth and very dry throat and trouble swallowing in the early oral phase. She has apparently had a couple of episodes of choking especially on grapes. While I feel this is likely r/t her autoimmune conditions, she seems to feel that these have been in remission for many years. She expresses concern that her blood pressure has suddenly increased from being around 100 systolic to 130. She has discussed this with her primary care provider who is monitoring the situation and does not seem overly concerned. I did tell her that taking her blood pressure twice a day at the same time every day and writing it down so that she can give her Dr. Of all get a better idea of what is happening on a daily basis might be helpful in determining if there is actually a problem. Likewise she says she is concerned that her ?bad? cholesterol has jumped and she does not eat meat as she is a vegetarian. She only eats cheese very rarely and does not do fried or fatty foods only uses extra virgin olive oil. I did tell her that we do monitor cholesterol at 3 to 6 month intervals and sometimes 1 reading can be misleading so I think that her primary care provider will likely continue to monitor this. I did try to reassure her that her good cholesterol is quite high and this frequently will offset the effects of the bad cholesterol. She is for refill of her Zofran but she does not do well with the sublingual version so I will see if I can get her the tablet version. She has frequent nausea but no vomiting. There are no prior problems with anesthesia or sedation. She denies any cardiac or respiratory problems. No ID problems. She has a past hx of TA many years back. ROV 6 mos, and after barium swallow and colonoscopy. Orders: Orders EGD/[place] [facility] - GI Use Only Today D12.6 - Benign neoplasm of colon, unspecified, R13.10 - Dysphagia, unspecified, Z01.818 - Encounter for other preprocedural examination, Z83.71 - Family history of colonic polyps [place] barium swallow modified Today R13.10 - Dysphagia, unspecified Medications: New ondansetron HCl 4 mg PO BID-TID 30 days PRN 60 tabs 6RF nausea and vomiting R11.0 - Nausea Refilled dexlansoprazole (Dexilant) 60 mg PO DAILY 30 days 30 caps 6RF bisacodyl (Laxative (bisacodyl)) 10 mg (2 x 5 mg) PO BEDTIME 60 tabs 6RF K21.9 - Gastro-esophageal reflux disease without esophagitis, K59.00 - Constipation, unspecified simethicone after meals 180 mg PO QID 30 days 120 caps 6RF Discontinued ondansetron Discontinued Reason: Doctor's Order 4 mg PO Q8H PRN 30 tabs 3RF for nausea/vomiting BARIUM SWALLOW 11/29/2023 EGD/COLONOSCOPY BIOPSY TODAY'S VISIT TURK[place] #dtr translates per pt request They had a scope date but she had a surgery that was earlier than expected and s/p surgery she had a bad infection. She had abdminoplasty. They are now ready for scope scheduling. Her nausea. which is not every day but intermittent is more severe and the zofran is no longer working well for her. The pt feels it may be tension or stress induced. She continues on her Dexilant, simethicone. She still has dysphagia in the oral phase with solid foods and at times it jose roberto not go up or down. She is aware of upcoming barium swallow. FORMERLY [facility], [facility]1983 Medical History (Updated 11/30/23 @ 13:31 by AICHA Manzo) Dry mouth and eyes Urticaria Mild depression Vitamin D deficiency Polyarthralgia Dyspnea Seborrhea capitis in adult Bilateral sciatica Urinary frequency Abdominal pannus Preoperative examination Preoperative clearance Lower urinary tract symptoms Bilateral hand pain Positive sm/VOUCHER CLERK antibody Family history of polyps in the colon Fracture of neck of left humerus Humeral head fracture Chronic gastritis Insomnia Hypothyroidism Lupus (systemic lupus erythematosus) Seropositive rheumatoid arthritis Leukopenia Gingivitis History of breast cancer Estrogen receptor positive status [ER+] Ductal carcinoma in situ (DCIS) of left breast Autoimmune disorder PTSD (post-traumatic stress disorder) COVID-19 Bilateral knee pain Fibromyalgia Schatzki's ring Rheumatoid arthritis Small bowel motility disorder Osteoporosis Raynaud's disease without gangrene Bipolar depression Anxiety Primary insomnia Constipation Acquired hypothyroidism Systemic lupus erythematosus Left temporomandibular joint disorder, unspecified Surgical History History of esophagogastroduodenoscopy (EGD) Hx of colonoscopy History of bilateral mastectomy History of total abdominal hysterectomy and bilateral salpingo-oophorectomy History of cholecystectomy History of tubal ligation History of section Family History Father Hypertension Prostate cancer Mother Breast cancer Hypertension Asthma Maternal Aunt Breast cancer Maternal Grandmother Colon cancer Maternal Aunt Breast cancer Social History Household Members: Children Household Members Other:: 2 daughters Housing: House Do you presently have visiting nurse or other home services: No Alcohol intake: current Alcohol intake frequency: does not drink Patient Tobacco Use Status: Never used Tobacco e-Cigarette/Vaping Use: Never Used Second Hand Smoke Exposure: No Advance Directives Date on File: 08/12/20 service: No Current occupational status: disabled Sexual orientation: Straight/Heterosexual Cognitive needs: Yes (cane) Hearing needs: No Vision needs: Yes (Glasses) Female Reproductive History Menstrual Age of Menarche: 10 Review of Systems Const Denies fatigue, Denies fever(s), Denies night sweats, Denies poor appetite and Denies weight loss ENT Reports Normal hearing present, Denies dental pain, Reports dysphagia, Denies hearing loss, Denies mouth pain, Denies odynophagia, Denies throat swelling, Denies tongue swelling and Reports other (Dentition adequate) Card Reports no additional complaints Resp Reports no additional complaints GI Details: Denies abdominal pain, Denies melena, Denies bloating, Denies hematochezia, Denies constipation, Denies GI cramping, Reports dysphagia, Denies excessive flatus, Denies early satiety, Reports heartburn, Denies diarrhea, Reports nausea, Denies odynophagia, Denies vomiting and Denies hematemesis Skin/Breast Denies pruritus, Denies lesions, Denies rash and Denies jaundice Neuro Reports Normal hearing present and Denies Abnormal speech present Endo Denies fatigue Aller/Immun Denies throat swelling and Denies tongue swelling Physical Exam Vital Signs: Last Vital Signs Pulse 86 11/15/23 12:33 BP 110/61 11/15/23 12:33 Const General: cooperative, no acute distress, well developed and well groomed Nutritional Appearance: average body habitus and well nourished Orientation/consciousness: oriented to person, oriented to place and oriented to time Limitations: language barrier HEENT Head: Yes normocephalic and Yes atraumatic Eyes General: appearance normal, both eyes and all related structures Pupils: Equal, round and reactive pupils present Neck Neck: Yes normal visual inspection and Yes no lymphadenopathy Thyroid: Thyroid normal Resp Effort & Inspection: normal respiratory effort and able to speak in complete sentences Auscultation: clear to auscultation bilaterally Cardio Rate: regular rate Rhythm: regular rhythm Heart sounds: Normal, physiologic split S2 sound present Peripheral pulses: radial pulses present and posterior tibial pulses present GI Other: did not visualize abd r/t clothing Inspection: No distended and No Abdominal panniculus present Palpation (GI): Soft to palpation, nontender, no guarding, not rigid and No hepatosplenomegaly present Percussion: Yes normal to percussion Auscultation: normal bowel sounds Rectal Exam - Female: deferred Skin General skin exam: no rashes or lesions noted, turgor normal, skin not dry, no jaundice, No spider nevi and no striae Rashes: no rashes Nails: normal Neuro General: oriented to person, oriented to place and oriented to time Cranial nerves: Yes Equal, round and reactive pupils present and Yes Normal hearing present Speech: No Abnormal speech present Extrem General: Yes normal to inspection, No clubbing, No cyanosis and No edema Psych Appearance: grossly normal and well kempt Mental Status: mental status grossly normal Speech and movement: Normal speech and movement present Affect: normal affect Attitude: cooperative Thought process: Normal thought process present and not confabulating Thought content: Normal thought content present Insight: Limited insight present (Psych) Judgement: Limited judgement present (Psych) Assessment & Plan Assessment & Plan (1) Dysphagia: Comment: ORAL PHASE WITH CHOKING ON SOLID FOODS Code(s): R13.10 - Dysphagia, unspecified Category: Medical (2) Tubular adenoma of colon: Comment: scope 2019 severe TICS, no polyps repeat 5 years 2023 Code(s): D12.6 - Benign neoplasm of colon, unspecified Category: Medical (3) GERD (gastroesophageal reflux disease): Code(s): K21.9 - Gastro-esophageal reflux disease without esophagitis Category: Medical Qualifiers: Esophagitis presence: without esophagitis Qualified Code(s): K21.9 - Gastro-esophageal reflux disease without esophagitis (4) Small bowel motility disorder: Code(s): K59.9 - Functional intestinal disorder, unspecified Category: Medical (5) Constipation: Code(s): K59.00 - Constipation, unspecified Category: Medical Plan TURK[place] #dtr translates per pt request They had a scope date but she had a surgery that was earlier than expected and s/p surgery she had a bad infection. She had abdminoplasty. They are now ready for scope scheduling. Her nausea. which is not every day but intermittent is more severe and the zofran is no longer working well for her. The pt feels it may be tension or stress induced. She continues on her Dexilant, simethicone. She still has dysphagia in the oral phase with solid foods and at times it jose roberto not go up or down. She is aware of upcoming barium swallow. Medications: New ondansetron HCl 8 mg PO BEDTIME 15 tabs 3RF 15 days Coding Level of Care Code Est Pt Level 3 (82853) Diagnoses Dysphagia R13.10 Tubular adenoma of colon D12.6 Gastroesophageal reflux disease without esophagitis K21.9 Esophagitis presence: without esophagitis Small bowel motility disorder K59.9 Constipation K59.00
[2023-11-15 12:33] VITALS: BP 110/61; PULSE 86
== END 2023-11-15 12:54 | disposition home or self-care (01) ==
PROVIDERS: PCP Internal Medicine; Visit Provider Nurse Practitioner
DX: R13.10 Dysphagia, unspecified (principal); D12.6 Benign neoplasm of colon, unspecified; K21.9 Gastro-esophageal reflux disease without esophagitis; K59.9 Functional intestinal disorder, unspecified; K59.00 Constipation, unspecified
CPT/HCPCS: 99213

== ENCOUNTER → 2023-11-15 12:28 | Outpatient (BNVA) | payer OTHER, SELFPAY | PROVIDERS: PCP Internal Medicine; Visit Provider Nurse Practitioner | DX: K59.00 Constipation, unspecified (principal); K21.9 Gastro-esophageal reflux disease without esophagitis; K59.9 Functional intestinal disorder, unspecified; R13.10 Dysphagia, unspecified; R11.0 Nausea; Z86.010 Personal history of colon polyps; Z80.0 Family history of malignant neoplasm of digestive organs | CPT/HCPCS: 99212 ==

== ENCOUNTER 2023-11-29 10:21 | Outpatient (REF) | payer OTHER, SELFPAY ==
--- NOTE | ~2023-11-29 | FL_ITS ---
EXAMINATION: Modified Barium Swallow CLINICAL INFORMATION: Dysphagia. COMPARISON: None. TECHNIQUE: Modified barium swallow was performed under lateral fluoroscopy with patient in standing position. Barium mixed with solids and liquids of different consistencies was administered by the speech pathologist. Examination was recorded in the fluoroscopy suite. FINDINGS: No laryngeal penetration or aspiration was observed during this examination. 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 FLUOROSCOPY TIME: 39 seconds Number of Spot Images: N/A DOSE AREA PRODUCT: 264.7 uGy-m2 (microgray-meter squared) FL/FL barium swallow modified IMPRESSION: 1. No laryngeal penetration or aspiration was observed during this examination. 2. 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 Refer to the speech therapy report for further clarification This procedure was performed by Ravin Treviño PA-C, and supervised by Dr. Beltran
--- NOTE | 2023-12-11 12:14 | MHC.SL.IMP ---
Date of Plan of Treatment: 11/29/23 Onset of Symptoms/Illness: 11/14/23 Date Treatment Started: 11/29/23 Admitting Diagnosis: Dysphagia, unspecified (R13.10) Primary Speech & Language Diagnosis: R13.10 Dysphagia Reason for Today's Visit: 40981 Modified Barium Swallow Study Pre-evaluation Dietary Consistencies: Regular Pre-evaluation Liquid Consistency: Thin Pre-evaluation Medication Administration: Whole with Liquid Medical History: Other: See below Comments: Medical History (Updated 11/30/23 @ 13:31 by AICHA Manzo) Dry mouth and eyes Urticaria Mild depression Vitamin D deficiency Polyarthralgia Dyspnea Seborrhea capitis in adult Bilateral sciatica Urinary frequency Abdominal pannus Preoperative examination Preoperative clearance Lower urinary tract symptoms Bilateral hand pain Positive sm/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 antibody Family history of polyps in the colon Fracture of neck of left humerus Humeral head fracture Chronic gastritis Insomnia Hypothyroidism Lupus (systemic lupus erythematosus) Seropositive rheumatoid arthritis Leukopenia Gingivitis History of breast cancer Estrogen receptor positive status [ER+] Ductal carcinoma in situ (DCIS) of left breast Autoimmune disorder PTSD (post-traumatic stress disorder) COVID-19 Bilateral knee pain Fibromyalgia Schatzki's ring Rheumatoid arthritis Small bowel motility disorder Osteoporosis Raynaud's disease without gangrene Bipolar depression Anxiety Primary insomnia Constipation Acquired hypothyroidism Systemic lupus erythematosus Left temporomandibular joint disorder, unspecified Surgical History History of esophagogastroduodenoscopy (EGD) Hx of colonoscopy History of bilateral mastectomy History of total abdominal hysterectomy and bilateral salpingo-oophorectomy History of cholecystectomy History of tubal ligation History of section Oral Motor Exam Facial Symmetry: Normal for Patient Symmetrical Mouth Occlusion: Normal Oral-Facial Teeth Characteristics: Partially Missing Oral-Facial Teeth Miscellaneous Observation: Oral-Facial Lip Pucker Description: Normal Oral-Facial Smile (Lips) Description: Normal Oral-Facial Puff Cheeks Description: Normal Oral Expression Ability: No Impairment Is patient able to manage secretions?: Yes Is patient able to produce volitional cough?: Yes Food and Liquid Trials: Oral Impairment: Lip Closure: Did not test Oral Impairment: Tongue Control During Bolus Hold: 0=Cohesive bolus between tongue to palatal seal Oral Impairment: Bolus Preparation/Mastication: 1=Slow prolonged chewing/mashing with complete re-collection Oral Impairment: Bolus Transport/Lingual Motion: 0=Brisk tongue motion Oral Impairment: Oral Residue: 3=Majority of bolus remaining Oral Impairment:Initiation of Pharyngeal Swallow: 0=Bolus head at posterior angle of ramus (first hyoid excursion) Pharyngeal Impairment: Soft Palate Elevation: 0=No bolus between soft palate (SP)/pharyngeal wall (PW) Pharyngeal Impairment: Laryngeal Elevation: 0=Complete superior movement of thyroid cartilage (see description) Pharyngeal Impairment: Anterior Hyoid Excursion: 0=Complete anterior movement Pharyngeal Impairment: Epiglottic Movement: 0=Complete inversion Pharyngeal Impairment: Laryngeal Vestibular Closure:: 0=Complete: no air/contrast in laryngeal vestibule Pharyngeal Impairment: Pharyngeal Stripping Wave: 0=Present: complete Pharyngeal Impairment: Pharyngeal Contraction: Did not test Pharyngeal Impairment: Pharyngoesophageal Segment Openin=Partial distention/partial duration: partial obstruction of flow Pharyngeal Impairment: Tongue Base (TB) Retraction: 1=Trace column of contrast/air between TB and posterior PW Pharyngeal Impairment: Pharyngeal Residue: 1=Trace residue within or on pharyngeal structures Pharyngeal Impairment: Esophageal Clearance Upright Position: Did not test Impressions and Recommendations Clinical Observations: Current (pre-evaluation) Intake/Diet: Pre-Study Functional Oral Intake Scale (FOIS): 7- Total oral intake with no restrictions [id number] ID: [id number] [facility] [place] [facility]: Lip closure for intraoral bolus containment could not be assessed due to logistical reasons not related to physiologic impairment. Tongue control during bolus hold maintained a cohesive bolus held between tongue to palate seal. Bolus preparation and mastication resulted in slow, prolonged chewing/mashing but with complete re-collection. Bolus transport/lingual motion was with brisk tongue motion. Oral residue was a trace, lining oral structures. Initiation of the pharyngeal swallow occurred when the bolus head was in the pyriform sinuses. Soft palate elevation resulted in no bolus between the soft palate and the pharyngeal wall. Laryngeal elevation demonstrated complete superior movement of the thyroid cartilage with complete approximation of the arytenoids to the epiglottic petiole. Anterior hyoid excursion demonstrated complete anterior movement. Epiglottic movement resulted in complete inversion. Laryngeal vestibular closure was complete, as indicated by no air or contrast within the laryngeal vestibule at the height of the swallow. Pharyngeal stripping wave was present and complete. Pharyngeal contraction could not be determined due to logistical reasons not related to physiologic impairment. Pharyngoesophageal segment opening demonstrated partial distension/partial duration, with partial obstruction of bolus flow. Tongue base retraction allowed a trace column of contrast or air between the retracted tongue base and the posterior pharyngeal wall. Pharyngeal residue was a trace within or on pharyngeal structures. Esophageal clearance in the upright position could not be assessed due to logistical reasons not related to physiologic impairment. Oral Impairment Score: 4 (absence of score, component 1) Pharyngeal Impairment Score: 1 (absence of score, component 13) Esophageal Impairment Score: --- (absence of score, component 17) Laryngeal Penetration and Aspiration: Neither penetration nor aspiration was observed in today's study with Cookie, Pudding-thick, Thin. SUMMARY: Zara was provided Thin Liquids, Puree and Regular Solids coated in barium contrast. She was observed in the lateral position while standing. No aspiration or penetration into the airway was observed across all consistencies and trial conditions. Mild oral and pharyngeal residue was present, but cleared eventually with secondary swallows. The attending Radiologist notes mild esophageal webbing at the level of C5. The results of today's study demonstrate a functional oral and pharyngeal phase of the swallow. Further correlation of her symptoms may benefit from and Upper GI series or Esophagram. Liquid Intake Recommendation: Thin Liquid Intake Strategies: Unrestricted Dietary Recommendations: Regular Medication Administration: Whole with Liquid Please contact the pharmacy regarding appropriate crushable or liquid drug formulations that are available whenever modified delivery is recommended. Compensatory Strategies Recommended: Sitting Upright (90 deg) Small Bites and Sips Alternate Liquids/Solids Rate of Ingestion Change Supervision during eating and or drinking: NA Recommended Treatments: Compens. Strategy Educat. Recommendation for Speech Therapy: NA:Typical Evaluation Timeline to reassess: PRN Assistant Accounting Manager Clinician/Clinical Fellow: No Supervisory Statement: N/A Speech Language Pathologist: Rm Ramírez M.A., CCC-BOOKKEEPERS SUPERVISOR
== END 2023-11-29 10:22 | disposition home or self-care (01) ==
LOC: HO.XRAY 10:21
PROVIDERS: PCP Internal Medicine; Visit Provider Nurse Practitioner
DX: R13.10 Dysphagia, unspecified (principal)
CPT/HCPCS: 74230; 92611

== ENCOUNTER → 2023-11-29 10:30 | Outpatient (BNV) | payer OTHER, SELFPAY | PROVIDERS: PCP Internal Medicine; Visit Provider Physician Assistant Surgical | DX: R13.10 Dysphagia, unspecified (principal) | CPT/HCPCS: 74230 ==

== ENCOUNTER 2024-01-08 15:54 | Outpatient (AMB) | payer OTHER, SELFPAY ==
--- NOTE | 2024-01-08 16:00 | MHC.PC.OV ---
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 Required: No Accompanied by: Self / Same As Patient Allergies Sulfa (Sulfonamide Antibiotics) Allergy (Severe, Verified 01/08/24 16:32) Itching codeine [CODEINE] Allergy (Intermediate, Verified 01/08/24 16:32) ITCHING hydroxychloroquine [From PLAQUENIL] Allergy (Intermediate, Verified 01/08/24 16:32) VOMITING morphine [MORPHINE] Allergy (Intermediate, Verified 01/08/24 16:32) ITCHING Estrogens Allergy (Mild, Verified 01/08/24 16:32) Unknown levothyroxine sodium Allergy (Unknown, Verified 01/08/24 16:32) rash,throat closes prednisone Allergy (Unknown, Verified 01/08/24 16:32) Unknown Corticosteroids (Glucocorticoids) [CORTICOSTEROIDS (GLUCOCORTICOIDS)] Adverse Reaction (Severe, Verified 01/08/24 16:32) DIFFICULTY BREATHING escitalopram [From Lexapro] Adverse Reaction (Severe, Verified 01/08/24 16:32) seizure meloxicam Adverse Reaction (Severe, Verified 01/08/24 16:32) Gastrointestinal Upset tadalafil [From Cialis] Adverse Reaction (Intermediate, Verified 01/08/24 16:32) Nausea and Vomiting acetaminophen [Percocet] Adverse Reaction (Unknown, Verified 01/08/24 16:32) Unknown duloxetine Adverse Reaction (Unknown, Verified 01/08/24 16:32) Unknown Medication List - Last Reconciled 01/08/24 by Chuck Davila MD amitriptyline 50 mg PO BEDTIME ammonium lactate 12% 1 appl topical BID bisacodyl (Laxative (bisacodyl)) 10 mg (2 x 5 mg) PO BEDTIME bupropion HCl XL 150 mg PO Q OTHER DAY calcipotriene 0.005% 1 appl topical QAM calcium citrate 500 mg (2 x 250 mg calcium) PO BID chlorhexidine gluconate 0.12% 15 mL PO BID cholecalciferol (vitamin D3) (Vitamin D3) 50 mcg PO DAILY cimetidine 800 mg PO BID 90 days clonazepam 1 mg PO BID dexlansoprazole (Dexilant) 60 mg PO DAILY 90 days diclofenac sodium 1% 2 grams topical QID doxepin 10 mg PO BEDTIME PRN 30 days [EMERGENCY ALERT BRACELET As directed] gabapentin 300 mg PO TID ketorolac 10 mg PO Q8H PRN 7 days lidocaine 5% 1 patch topical DAILY PRN lifitegrast 5% (Xiidra) 1 drp ophthalmic (eye) BID [LIGHTWEIGHT WALKER (child size) As directed] multivitamin with folic acid 400 mcg (Daily-Dottie (with folic acid)) 1 tab PO DAILY onabotulinumtoxinA (Botox) 200 units IM ondansetron HCl 4 mg PO BID-TID PRN 30 days ondansetron HCl 8 mg PO BEDTIME 15 days orphenadrine citrate ER 100 mg PO BID 4 days oxcarbazepine 150 mg PO BID oxybutynin chloride ER 10 mg PO DAILY simethicone 180 mg PO QID 30 days sod picosulf-mag ox-citric ac 10 mg-3.5 gram- 12 gram/160 mL (Clenpiq) 160 mL PO DAILY 2 doses sod picosulf-mag ox-citric ac 10 mg-3.5 gram- 12 gram/175 mL (Clenpiq) 175 mL PO ONCE 2 doses Synthroid (levothyroxine) 50 mcg PO DAILY 90 days NS trazodone 50 mg PO BEDTIME PRN Ventolin HFA 90 mcg/actuation (albuterol sulfate) 2 puffs inhalation Q6H PRN NS Tobacco use date assessed: 01/08/24 Dental Screening Dental Screen Date: 01/08/24 Did you have a dental visit in the last 12 months?: Yes Did you have a dental problem in the last 6 months where you did not have access to dental care?: No Was dental information given to patient?: Patient has dentist HPI neck pain, headaches, trouble sleeping HPI Details Patient comes in today for her follow up visit States that she did undergo abdominoplasty with liposuction with Dr. Jayde Quick as scheduled on 08/01/2023 but apparently developed some post-op cellulitis around the surgical site and she was prescribed Bactrim DS x 2 weeks, which she states cleared up her infection initially but the infection recurred after she was done with the Abx She went back to the ER at [facility] in mid-August 2023 and this time, was started on oral Doxycycline x 14 days States that her infection gradually cleared up with Abx Tx and this time did not recur after she completed her Abx regimen States that her surgical wounds have all completely healed up since and she's had no further issues there She continues to complain of diffuse pain, especially over her cervical area and around the back of both shoulders and over the scapular areas bilaterally She has been advised that she'd had these pain and symptoms for years now and they are mostly due to her fibromyalgia, which she's struggled with for many years She relates (+) fatigue often, which is also commonly seen in fibromyalgia She is still experiencing frequent dysphagia and recently had a modified barium swallow done for further evaluation and she has a follow up appointment coming up with Dianne Rodgers next month regarding this She denies any increased headaches or dizziness lately Denies any exertional chest pains or increased SOB No nausea/vomiting, no abdominal pain No change in bowel habits noted She has not had her follow up labs done recently [facility] Medical History (Updated 01/08/24 @ 17:53 by Chuck Davila MD) Dry mouth and eyes Urticaria Mild depression Vitamin D deficiency Polyarthralgia Dyspnea Seborrhea capitis in adult Bilateral sciatica Urinary frequency Abdominal pannus Preoperative examination Preoperative clearance Lower urinary tract symptoms Bilateral hand pain Positive sm/QUOTATION CLERK antibody Family history of polyps in the colon Fracture of neck of left humerus Humeral head fracture Chronic gastritis Insomnia Hypothyroidism Lupus (systemic lupus erythematosus) Seropositive rheumatoid arthritis Leukopenia Gingivitis History of breast cancer Estrogen receptor positive status [ER+] Ductal carcinoma in situ (DCIS) of left breast Autoimmune disorder PTSD (post-traumatic stress disorder) COVID-19 Bilateral knee pain Fibromyalgia Schatzki's ring Rheumatoid arthritis Small bowel motility disorder Osteoporosis Raynaud's disease without gangrene Bipolar depression Anxiety Primary insomnia Constipation Acquired hypothyroidism Systemic lupus erythematosus Left temporomandibular joint disorder, unspecified Surgical History (Updated 01/08/24 @ 17:44 by Chuck Davila MD) Hx of abdominoplasty History of esophagogastroduodenoscopy (EGD) Hx of colonoscopy History of bilateral mastectomy History of total abdominal hysterectomy and bilateral salpingo-oophorectomy History of cholecystectomy History of tubal ligation History of section Family History Father Hypertension Prostate cancer Mother Breast cancer Hypertension Asthma Maternal Aunt Breast cancer Maternal Grandmother Colon cancer Maternal Aunt Breast cancer Social History Household Members: Children Household Members Other:: 2 daughters Housing: House Do you presently have visiting nurse or other home services: No Alcohol intake: current Alcohol intake frequency: does not drink Patient Tobacco Use Status: Never used Tobacco e-Cigarette/Vaping Use: Never Used Second Hand Smoke Exposure: No Advance Directives Date on File: 08/12/20 service: No Current occupational status: disabled Sexual orientation: Straight/Heterosexual Cognitive needs: Yes (cane) Hearing needs: No Vision needs: Yes (Glasses) Female Reproductive History Menstrual Age of Menarche: 10 Questionnaire PHQ-9 Over the last 2 weeks, how often have you been bothered by any of the following problems? 1. Little interest or pleasure in doing things: several days 2. Feeling down, depressed, or hopeless: several days 3. Trouble falling or staying asleep, or sleeping too much: several days 4. Feeling tired or having little energy: several days 5. Poor appetite or overeating: several days 6. Feeling bad about yourself - or that you are a failure or have let yourself or your family down: several days 7. Trouble concentrating on things, such as reading the newspaper or watching television: not at all 8. Moving or speaking so slowly that other people could have noticed. Or the opposite - being so fidgety or restless that you have been moving around a lot more than usual: not at all 9. Thoughts that you would be better off or of hurting yourself in some way: not at all Total score: 6 Depression Screening Interpretation: Positive Depression Screening Follow-up: Existing condition and In treatment Depression Screening Done: Yes 92237 - PHQ-9 Billing: Yes Source: Developed by Drs. Som Barrera, Stephy Taylor, Michele Li and colleagues, with an educational coleman from [employer]. Thrive Questionnaire Date Thrive assessed: 01/08/24 I am a: Patient What is your living situation today?: I have a steady place to live Within the past 12 months, did the food you bought not last and you didn't have the money to get more?: Never true Within the past 12 months, did you worry whether your food would run out before you got money to buy more?: Never true Do you have trouble paying for medicines?: No Do you have trouble getting transportation to medical appointments?: No Do you have trouble paying your heating and electricity bill?: No Do you have trouble taking care of your child, family member or friend?: No Do you have trouble with day-to-day activities such as bathing, preparing meals, shopping, managing finances, etc.?: No Are you currently unemployed and looking for a job?: No Are you interested in more education?: No Please select the resources that you would like help with: None Currently or been in a relationship where the following occur: No concerns reported THRIVE Score: 0 AUDIT C Alcohol Use Questionnaire (AUDIT-C) 1. How often do you have a drink containing alcohol?: Never 3. How often do you have six or more drinks on one occasion?: Never Total Score: 0 Score Reviewed/Action Taken: Yes MOSHE-7 AMB Questionnaire MOSHE-7 Date MOSHE - 7 assessed: 01/08/24 Feeling nervous, anxious, or on edge: 1 = Several days (on medication) Not being able to stop or control worryin = Not at all Worrying too much about different things: 0 = Not at all Trouble relaxin = Not at all Being so restless that it is hard to sit still: 0 = Not at all Becoming easily annoyed or irritable: 0 = Not at all Feeling afraid as if something awful might happen: 0 = Not at all Total MOSHE-7 score (0-4 normal; 5-9 mild; 10-14 moderate; 15-21 severe): 1 Source: Developed by Drs. Som Barrera, Stephy Taylor, Michele Li and colleagues, with an educational coleman from [employer]. Review of Systems Const Denies chills, Reports fatigue (chronic), Denies fever(s) and Denies headache(s) ENT Reports dysphagia (see HPI), Denies dizziness, Denies otalgia, Denies headache(s), Reports neck pain (chronic), Denies odynophagia and Denies sore throat Card Denies chest pain, Denies palpitations and Reports dyspnea on exertion (mild, chronic) Resp Denies chest congestion, Denies cough, Reports dyspnea on exertion (mild, chronic) and Denies wheezing GI Denies abdominal pain, Reports constipation (Rx helping), Reports dysphagia (see HPI), Denies heartburn, Denies diarrhea, Denies nausea, Denies odynophagia and Denies vomiting Denies hematuria, Reports nocturia, Denies dysuria and Denies urinary urgency Musc Reports back pain (over the lower back, on and off; also over both shoulder areas ), Reports arthralgias (involving multiple joints, especially both shoulders/scapular areas) and Reports neck pain (chronic) Skin/Breast Denies rash Neuro Denies dizziness and Denies headache(s) Psych Reports anxiety Endo Reports fatigue (chronic) and Denies palpitations Aller/Immun Denies wheezing Physical exam (Primary Care) Vital Signs: Last Vital Signs Pulse 77 01/08/24 16:01 BP 110/78 01/08/24 16:01 Pulse Ox 98 01/08/24 16:01 Oxygen Delivery Method Room Air 01/08/24 16:01 BMI result Body Mass Index 20.5 Tobacco/Smoking Status: Tobacco use Status Tobacco use date assessed 01/08/24 01/08/24 16:03 Patient Tobacco Use Status Never used Tobacco 01/08/24 16:03 e-Cigarette/Vaping Use Never Used 01/08/24 16:03 PHQ-9: PHQ-9 Score PHQ-9: Total score 6 01/08/24 16:52 Depression Screening Interpretation: Positive Depression Screening Follow-up: Existing condition and In treatment Thrive Assessment: Date of Thrive Assessment Date Thrive assessed 01/08/24 01/08/24 16:03 Currently or been in a relationship where the following occur: No concerns reported Const General: no acute distress and alert HENMT Ears: TM's normal bilaterally and EAC's normal Throat: Yes posterior oropharynx normal and Yes tonsils normal Neck Neck: Yes no lymphadenopathy and Yes tender (over the cervical spine and paraspinal areas bilaterally) Thyroid: Thyroid normal Resp Auscultation: clear to auscultation bilaterally, no rales and no wheezes Cardio Rate: regular rate Rhythm: regular rhythm Heart sounds: no murmurs GI Palpation (GI): Soft to palpation and nontender Auscultation: normal bowel sounds General: Yes no CVA tenderness Back/Spine/Pelvis Back: no CVA tenderness Thoracic/Lumbar Spine: paraspinal muscle tenderness bilaterally (over the cervical and thoracolumbar spine (diffuse)) and lumbar spinal tenderness Skin Rashes: no rashes Extrem General: Yes no clubbing, cyanosis or edema Right upper extremity: shoulder/upper arm Details: tenderness (diffusely over the scapular area) Left upper extremity: shoulder/upper arm Details: tenderness (diffusely over the scapular areas) Assessment and Plan Assessment & Plan (1) Fibromyalgia: Code(s): M79.7 - Fibromyalgia Plan: She is advised that her current neck and shoulder/scapular pains are consistent with symptoms from her fibromyalgia Patient was seeing Dr. Castrejon at [facility] [place] previously and has been reportedly advised that although she tested positive for DANA, all other workups were negative and she has no clinical evidence of active disease and there is no indication for treatment for lupus or RA at the time She was seen by rheumatology here at [facility] and was advised of the same - that she has no evidence of active inflammatory joint disease and there is no indication for therapy Lumbar spine x-rays done last year came back normal Continue Lidocaine patches PRN and Gabapentin 300 mg TID Patient is again encouraged to stay active and exercise regularly (as tolerated) to help manage her fibromyalgia symptoms (2) Polyarthralgia: Code(s): M25.50 - Pain in unspecified joint Plan: Continue Orphenadrine ER 100 mg BID, Diclofenac sodium 1% gel topically PRN and Toradol 10 mg Q 8 hours PRN Follow up with [facility] Pain Management as scheduled She was going to physical therapy previously but states that she did not experience any relief from PT and has been advised to consider a referral to physiatry instead (3) Dystonia: Code(s): G24.9 - Dystonia, unspecified Plan: She is receiving botox injections from neurology when needed for cervical dystonia Follow up with neurology as scheduled (4) Dysphagia: Comment: ORAL PHASE WITH CHOKING ON SOLID FOODS Code(s): R13.10 - Dysphagia, unspecified Qualifiers: Dysphagia type: oral phase Qualified Code(s): R13.11 - Dysphagia, oral phase Plan: She had a modified barium swallow done last month, which apparently revealed the presence of a mild esophageal webbing at the level of C5 Follow up with GI as scheduled - she has an appointment with Dianne Rodgers of GI early next month (5) Headache: Code(s): R51.9 - Headache, unspecified Qualifiers: Headache type: unspecified Headache chronicity pattern: episodic headache Intractability: not intractable Qualified Code(s): R51.9 - Headache, unspecified Plan: She was diagnosed with possible tension headaches by neurology and started on Amitriptyline 50 mg Q HS - states that the Rx has been helping a lot Follow up with neurology as scheduled (6) Acquired hypothyroidism: Code(s): E03.9 - Hypothyroidism, unspecified Plan: Her TFTs were normal on her recent labs Continue Synthroid 50 mcg QD Follow up with endocrinology as scheduled (7) Anemia: Comment: mild Code(s): D64.9 - Anemia, unspecified Qualifiers: Anemia type: unspecified type Qualified Code(s): D64.9 - Anemia, unspecified Plan: Continue Feosol 65 mg every other day - patient gets very constipated when she takes Rx daily Will recheck her CBC in a couple of months for follow up (8) Osteoporosis: Code(s): M81.0 - Age-related osteoporosis without current pathological fracture Qualifiers: Osteoporosis type: unspecified Presence of current pathological fracture: without current pathological fracture Qualified Code(s): M81.0 - Age-related osteoporosis without current pathological fracture Plan: Continue daily oral calcium and Vitamin D supplements Fall precautions reinforced Follow up with endocrinology as scheduled - she has been referred by Dr. Brandon to [facility] for a second opinion (9) Vitamin D deficiency: Code(s): E55.9 - Vitamin D deficiency, unspecified Plan: Continue Vitamin D2 80348 units once a week (10) GERD (gastroesophageal reflux disease): Code(s): K21.9 - Gastro-esophageal reflux disease without esophagitis Qualifiers: Esophagitis presence: without esophagitis Qualified Code(s): K21.9 - Gastro-esophageal reflux disease without esophagitis Plan: Dietary restrictions reinforced Continue Dexilant 60 mg QD (11) Chronic idiopathic constipation: Code(s): K59.04 - Chronic idiopathic constipation Plan: Continue Bisacodyl PRN and Colace 100 mg QD PRN Encouraged increased oral fluids and disetary fiber Follow up with GI as scheduled (12) Interstitial cystitis: Code(s): N30.10 - Interstitial cystitis (chronic) without hematuria Plan: Urinary bladder US done months ago revealed (+) posterior wall trabeculations but no generalized bladder wall thickening and no masses or calculi noted S/P cystoscopy with hydrodistention by urology a few months ago, with apparent significant improvement of her symptoms following the procedure Patient is again encouraged to increase her oral fluid intake and advised that drinking cranberry juice may help with her symptoms Follow up with urology as scheduled (13) Insomnia: Code(s): G47.00 - Insomnia, unspecified Qualifiers: Insomnia type: unspecified Qualified Code(s): G47.00 - Insomnia, unspecified Plan: Sleep hygiene reinforced Continue Trazodone 50 mg Q HS (14) Anxiety: Code(s): F41.9 - Anxiety disorder, unspecified Plan: Continue Clonazepam 1 mg BID PRN (15) Bipolar depression: Code(s): F31.9 - Bipolar disorder, unspecified Plan: Continue Bupropion ER 150 mg QOD Follow-up with Psychiatry as scheduled Plan Follow up as scheduled in March 2024 She is advised to just get her follow up labs done (updated) before her next appointment in March 2024 Coding Level of Care Code Est Pt Level 4 (84729) Diagnoses Fibromyalgia M79.7 Polyarthralgia M25.50 Dystonia G24.9 Oral phase dysphagia R13.11 Dysphagia type: oral phase Nonintractable episodic headache, unspecified headache type R51.9 Headache type: unspecified Headache chronicity pattern: episodic headache Intractability: not intractable Acquired hypothyroidism E03.9 Anemia, unspecified type D64.9 Anemia type: unspecified type Osteoporosis without current pathological fracture, unspecified osteoporosis type M81.0 Osteoporosis type: unspecified Presence of current pathological fracture: without current pathological fracture Vitamin D deficiency E55.9 Gastroesophageal reflux disease without esophagitis K21.9 Esophagitis presence: without esophagitis Chronic idiopathic constipation K59.04 Interstitial cystitis N30.10 Insomnia, unspecified type G47.00 Insomnia type: unspecified Anxiety F41.9 Bipolar depression F31.9
[2024-01-08 16:01] VITALS: BP 110/78; PULSE 77; O2SAT 98; BMI 20.5
== END 2024-01-08 16:38 | disposition home or self-care (01) ==
PROVIDERS: PCP Internal Medicine; Visit Provider Internal Medicine
DX: M79.7 Fibromyalgia (principal); F31.9 Bipolar disorder, unspecified; M25.50 Pain in unspecified joint; G24.9 Dystonia, unspecified; R13.11 Dysphagia, oral phase; R51.9 Headache, unspecified; E03.9 Hypothyroidism, unspecified; D64.9 Anemia, unspecified; M81.0 Age-related osteoporosis without current pathological fracture; E55.9 Vitamin D deficiency, unspecified
CPT/HCPCS: 99214

== ENCOUNTER 2024-01-09 11:04 | Outpatient (REF) | payer OTHER, SELFPAY ==
[2024-01-09 11:36] LABS: MANUAL DIFF FLAG NO
[2024-01-09 12:36] LABS: Basophils Percent Auto 0.5 % (0-2); Eosinophils Percent Auto 0.2 % (0-4); Hematocrit 36.4 % (37.0-47.0); Hemoglobin 11.3 g/dl (12.0-16.0); Imm Gran Abs Auto 0.01 X10*3/uL (0.00-0.03); Imm Gran Pct Auto 0.2 % (0.0-0.4); Lymphocytes Absolute Auto 0.9 X10*3/uL (1.2-4.9); Lymphocytes Percent Auto 22.4 % (20-40); Mean Corpuscular Hemoglobin 26.7 pg (27.0-33.0); Mean Corpuscular Volume 86.1 fL (80.0-98.0); Mean Platelet Volume 10.8 fL (9.4-12.3); Monocytes Absolute Auto 0.4 X10*3/uL (0.1-1.2); Monocytes Percent Auto 9.2 % (2-11); Neutrophils Absolute Auto 2.7 x10*3/uL (2.0-8.3); Neutrophils Percent Auto 67.5 % (45-73); Platelet Count 214 X10*3/uL (160-400); Red Blood Count 4.23 X10*6/uL (4.20-5.50); Red Cell Distribution Width 14.5 % (11.0-16.0)
[2024-01-09 13:15] LABS: Alanine Aminotransferase 15 U/L (0-31); Albumin Level 4.2 g/dL (3.5-5.0); Alkaline Phosphatase 57 U/L (39-117); Anion Gap 12 (12-20); Aspartate Amino Transferase 22 U/L (5-31); Bilirubin Total 0.5 mg/dL (0.0-1.0); Blood Urea Nitrogen 14 mg/dL (9-16); Calcium 9.4 mg/dL (8.4-10.2); Carbon Dioxide 25 mmol/L (22-29); Chloride 108 mmol/L (96-108); Estimated Glomerular Filt Rate > 60; Glucose Random 84 mg/dL (60-115); Potassium 4.5 mmol/L (3.3-5.1); Sodium 140 mmol/L (135-145); Total Protein 7.4 g/dL (6.5-8.0)
[2024-01-09 13:20] LABS: Free T4 (Free Thyroxine) 1.09 ng/dL (0.71-1.85); Vitamin D 25-OH Total 41.3 ng/mL (>30)
[2024-01-10 22:33] LABS: Immunoglobulin E 9 kU/L (<OR=114)
== END 2024-01-09 11:05 | disposition home or self-care (01) ==
LOC: HO.LAB 11:04
PROVIDERS: PCP Internal Medicine; Visit Provider Physician Assistant
DX: L50.9 Urticaria, unspecified (principal)
CPT/HCPCS: 36415; 80053; 82306; 82785; 83520; 84439; 84443; 85025

== ENCOUNTER 2024-01-31 11:21 | Outpatient (AMB) | payer OTHER, SELFPAY ==
[2024-01-31 11:25] VITALS: BP 134/80; PULSE 84; BMI 20.3
--- NOTE | 2024-01-31 11:25 | A.OFFVIS_ITS ---
Vital Signs 01/31/24 11:25 Height 5 ft 3 in Weight 114 lb 10.246 oz BMI 20.3 BP 134/80 Blood Pressure Location Lt brachial Position Sitting Pulse 84 Intake Visit Reasons: barrium swallow f/u Intake Note: Iris returns to in office follow up of Barium swallow. CC: Patient reports that she continues to choke with food. 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 Accompanied by: Self / Same As Patient Allergies Sulfa (Sulfonamide Antibiotics) Allergy (Severe, Verified 01/31/24 11:32) Itching codeine [CODEINE] Allergy (Intermediate, Verified 01/31/24 11:32) ITCHING hydroxychloroquine [From PLAQUENIL] Allergy (Intermediate, Verified 01/31/24 11:32) VOMITING morphine [MORPHINE] Allergy (Intermediate, Verified 01/31/24 11:32) ITCHING Estrogens Allergy (Mild, Verified 01/31/24 11:32) Unknown levothyroxine sodium Allergy (Unknown, Verified 01/31/24 11:32) rash,throat closes prednisone Allergy (Unknown, Verified 01/31/24 11:32) Unknown Corticosteroids (Glucocorticoids) [CORTICOSTEROIDS (GLUCOCORTICOIDS)] Adverse Reaction (Severe, Verified 01/31/24 11:32) DIFFICULTY BREATHING escitalopram [From Lexapro] Adverse Reaction (Severe, Verified 01/31/24 11:32) seizure meloxicam Adverse Reaction (Severe, Verified 01/31/24 11:32) Gastrointestinal Upset tadalafil [From Cialis] Adverse Reaction (Intermediate, Verified 01/31/24 11:32) Nausea and Vomiting acetaminophen [Percocet] Adverse Reaction (Unknown, Verified 01/31/24 11:32) Unknown duloxetine Adverse Reaction (Unknown, Verified 01/31/24 11:32) Unknown HPI HPI barrium swallow f/u: Details: Assessment & Plan (1) Dysphagia: Comment: ORAL PHASE WITH CHOKING ON SOLID FOODS Code(s): R13.10 - Dysphagia, unspecified Category: Medical (2) Tubular adenoma of colon: Comment: scope 2019 severe TICS, no polyps repeat 5 years 2023 Code(s): D12.6 - Benign neoplasm of colon, unspecified Category: Medical (3) GERD (gastroesophageal reflux disease): Code(s): K21.9 - Gastro-esophageal reflux disease without esophagitis Category: Medical Qualifiers: Esophagitis presence: without esophagitis Qualified Code(s): K21.9 - Gastro-esophageal reflux disease without esophagitis (4) Small bowel motility disorder: Code(s): K59.9 - Functional intestinal disorder, unspecified Category: Medical (5) Constipation: Code(s): K59.00 - Constipation, unspecified Category: Medical Plan TURKMEN #dtr translates per pt request They had a scope date but she had a surgery that was earlier than expected and s/p surgery she had a bad infection. She had abdminoplasty. They are now ready for scope scheduling. Her nausea. which is not every day but intermittent is more severe and the zofran is no longer working well for her. The pt feels it may be tension or stress induced. She continues on her Dexilant, simethicone. She still has dysphagia in the oral phase with solid foods and at times it willing not go up or down. She is aware of upcoming barium swallow. Medications: New ondansetron HCl 8 mg PO BEDTIME 15 tabs 3RF 15 days BARIUM SWALLOW 12/04/23 IMPRESSION: 1. No laryngeal penetration or aspiration was observed during this examination. 2. 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 Refer to the speech therapy report for further clarification This procedure was performed by Ravin Treviño PA-C, and supervised by Dr. Beltran SPEECH THERAPY REPORT SUMMARY: Zara was provided Thin Liquids, Puree and Regular Solids coated in barium contrast. She was observed in the lateral position while standing. No aspiration or penetration into the airway was observed across all consistencies and trial conditions. Mild oral and pharyngeal residue was present, but cleared eventually with secondary swallows. The attending Radiologist notes mild esophageal webbing at the level of C5. The results of today's study demonstrate a functional oral and pharyngeal phase of the swallow. Further correlation of her symptoms may benefit from and Upper GI series or Esophagram. Liquid Intake Recommendation: Thin Liquid Intake Strategies: Unrestricted Dietary Recommendations: Regular Medication Administration: Whole with Liquid Please contact the pharmacy regarding appropriate crushable or liquid drug formulations that are available whenever modified delivery is recommended. Compensatory Strategies Recommended: Sitting Upright (90 deg)Small Bites and Sips Alternate Liquids/Solids Rate of Ingestion Change EGD/COLONOSCOPY 03/19/2024 BIOPSY TODAY'S VISIT TURKMEN #Emelia Card She was very upset at the radiologist who did the study because he told her she was not having choking, but she feels that the amt they gave even a child would not choke. She feels this was disrespectful. 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 She also is having increasing constipation. This is likely because she can only eat very small amounts as she is very fearful of choking. She eats mostly salads and does try to get fiber via Chick peas it etc. but she probably isn't having much ball. We do discuss using something like Citrucel since she has less choking with liquids and this may facilitate the constipation until we can salt the swallowing problem. She also continues on her Dexilant, simethicone and Zofran. The insurance did not approve the lower volume prep so she says she will do all right with a MiraLax and Dulcolax prep so I will send this to the pharmacy. I also treat her daughter! She has an appt 04/02 after the EGD/colonoscopy. [facility] Medical History (Updated 01/31/24 @ 12:16 by AICHA Manzo) Small bowel motility disorder Dry mouth and eyes Urticaria Mild depression Vitamin D deficiency Polyarthralgia Dyspnea Seborrhea capitis in adult Bilateral sciatica Urinary frequency Abdominal pannus Preoperative examination Preoperative clearance Lower urinary tract symptoms Bilateral hand pain Positive sm/[employer] antibody Family history of polyps in the colon Fracture of neck of left humerus Humeral head fracture Chronic gastritis Insomnia Hypothyroidism Lupus (systemic lupus erythematosus) Seropositive rheumatoid arthritis Leukopenia Gingivitis History of breast cancer Estrogen receptor positive status [ER+] Ductal carcinoma in situ (DCIS) of left breast Autoimmune disorder PTSD (post-traumatic stress disorder) COVID-19 Bilateral knee pain Fibromyalgia Schatzki's ring Rheumatoid arthritis Small bowel motility disorder Osteoporosis Raynaud's disease without gangrene Bipolar depression Anxiety Primary insomnia Constipation Acquired hypothyroidism Systemic lupus erythematosus Left temporomandibular joint disorder, unspecified Surgical History Hx of abdominoplasty History of esophagogastroduodenoscopy (EGD) Hx of colonoscopy History of bilateral mastectomy History of total abdominal hysterectomy and bilateral salpingo-oophorectomy History of cholecystectomy History of tubal ligation History of section Family History Father Hypertension Prostate cancer Mother Breast cancer Hypertension Asthma Maternal Aunt Breast cancer Maternal Grandmother Colon cancer Maternal Aunt Breast cancer Social History Household Members: Children Household Members Other:: 2 daughters Housing: House Do you presently have visiting nurse or other home services: No Alcohol intake: current Alcohol intake frequency: does not drink Patient Tobacco Use Status: Never used Tobacco e-Cigarette/Vaping Use: Never Used Second Hand Smoke Exposure: No Advance Directives Date on File: 08/12/20 service: No Current occupational status: disabled Sexual orientation: Straight/Heterosexual Cognitive needs: Yes (cane) Hearing needs: No Vision needs: Yes (Glasses) Female Reproductive History Menstrual Age of Menarche: 10 Review of Systems Const Denies fatigue, Denies fever(s), Denies night sweats, Reports poor appetite and Denies weight loss Eyes Details: glasses Reports requires corrective lenses ENT Reports Normal hearing present, Denies dental pain, Reports dysphagia, Denies hearing loss, Denies mouth pain, Denies odynophagia, Denies throat swelling, Denies tongue swelling and Reports other (Dentition adequate) Card Reports no additional complaints Resp Reports no additional complaints GI Details: Denies abdominal pain, Denies melena, Denies bloating, Denies hematochezia, Reports constipation, Denies GI cramping, Reports dysphagia, Denies excessive flatus, Denies early satiety, Reports heartburn, Denies diarrhea, Reports nausea, Denies odynophagia, Denies vomiting and Denies hematemesis Skin/Breast Denies pruritus, Denies lesions, Denies rash and Denies jaundice Neuro Reports Normal hearing present and Denies Abnormal speech present Endo Denies fatigue Aller/Immun Denies throat swelling and Denies tongue swelling Physical Exam Vital Signs: Last Vital Signs Pulse 84 01/31/24 11:25 BP 134/80 01/31/24 11:25 BMI result Body Mass Index 20.3 Const General: cooperative, no acute distress, well developed and well groomed Nutritional Appearance: average body habitus and well nourished Orientation/consciousness: oriented to person, oriented to place and oriented to time Limitations: language barrier HEENT Head: Yes normocephalic and Yes atraumatic Eyes General: appearance normal, both eyes and all related structures Pupils: Equal, round and reactive pupils present Neck Neck: Yes normal visual inspection and Yes no lymphadenopathy Thyroid: Thyroid normal Resp Effort & Inspection: normal respiratory effort and able to speak in complete sentences Auscultation: clear to auscultation bilaterally Cardio Rate: regular rate Rhythm: regular rhythm Heart sounds: Normal, physiologic split S2 sound present Peripheral pulses: radial pulses present and posterior tibial pulses present GI Inspection: No distended and No Abdominal panniculus present Palpation (GI): Soft to palpation, nontender, no guarding, not rigid and No hepatosplenomegaly present Percussion: Yes normal to percussion Auscultation: normal bowel sounds Rectal Exam - Female: deferred Skin General skin exam: no rashes or lesions noted, turgor normal, skin not dry, no jaundice, No spider nevi and no striae Rashes: no rashes Nails: normal Neuro General: oriented to person, oriented to place and oriented to time Cranial nerves: Yes Equal, round and reactive pupils present and Yes Normal hearing present Speech: No Abnormal speech present Extrem General: Yes normal to inspection, No clubbing, No cyanosis and No edema Psych Appearance: grossly normal and well kempt Mental Status: mental status grossly normal Speech and movement: Normal speech and movement present Affect: normal affect Attitude: cooperative Thought process: Normal thought process present and not confabulating Thought content: Normal thought content present Insight: Fair insight present (Psych) Judgement: Fair judgement present (Psych) Results Reviewed Results Reviewed: BARIUM SWALLOW 12/04/23 IMPRESSION: 1. No laryngeal penetration or aspiration was observed during this examination. 2. 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 Refer to the speech therapy report for further clarification This procedure was performed by Ravin Treviño PA-C, and supervised by Dr. Beltran SPEECH THERAPY REPORT SUMMARY: Iris was provided Thin Liquids, Puree and Regular Solids coated in barium contrast. She was observed in the lateral position while standing. No aspiration or penetration into the airway was observed across all consistencies and trial conditions. Mild oral and pharyngeal residue was present, but cleared eventually with secondary swallows. The attending Radiologist notes mild esophageal webbing at the level of C5. The results of today's study demonstrate a functional oral and pharyngeal phase of the swallow. Further correlation of her symptoms may benefit from and Upper GI series or Esophagram. Liquid Intake Recommendation: Thin Liquid Intake Strategies: Unrestricted Dietary Recommendations: Regular Medication Administration: Whole with Liquid Please contact the pharmacy regarding appropriate crushable or liquid drug formulations that are available whenever modified delivery is recommended. Compensatory Strategies Recommended: Sitting Upright (90 deg)Small Bites and Sips Alternate Liquids/Solids Rate of Ingestion Change Assessment & Plan Assessment & Plan (1) Dysphagia: Comment: ORAL PHASE WITH CHOKING ON SOLID FOODS Code(s): R13.10 - Dysphagia, unspecified Category: Medical Qualifiers: Dysphagia type: oral phase Qualified Code(s): R13.11 - Dysphagia, oral phase (2) Nausea: Code(s): R11.0 - Nausea Category: Medical (3) Tubular adenoma of colon: Comment: scope 2019 severe TICS, no polyps repeat 5 years 2023 Code(s): D12.6 - Benign neoplasm of colon, unspecified Category: Medical (4) GERD (gastroesophageal reflux disease): Code(s): K21.9 - Gastro-esophageal reflux disease without esophagitis Category: Medical Qualifiers: Esophagitis presence: without esophagitis Qualified Code(s): K21.9 - Gastro-esophageal reflux disease without esophagitis (5) Constipation: Code(s): K59.00 - Constipation, unspecified Category: Medical Plan TURKMEN #Emelia Card She was very upset at the radiologist who did the study because he told her she was not having choking, but she feels that the amt they gave even a child would not choke. She feels this was disrespectful. 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 She also is having increasing constipation. This is likely because she can only eat very small amounts as she is very fearful of choking. She eats mostly salads and does try to get fiber via Chick peas it etc. but she probably isn't having much ball. We do discuss using something like Citrucel since she has less choking with liquids and this may facilitate the constipation until we can salt the swallowing problem. She also continues on her Dexilant, simethicone and Zofran. The insurance did not approve the lower volume prep so she says she will do all right with a MiraLax and Dulcolax prep so I will send this to the pharmacy. I also treat her daughter! She has an appt 04/02 after the EGD/colonoscopy. EGD/COLONOSCOPY 03/19/2024 BIOPSY Medications: New polyethylene glycol 3350 (Miralax) 238 grams PO ONCE 238 grams 0RF 1 day bisacodyl (Dulcolax (bisacodyl)) 10 mg (2 x 5 mg) PO BEDTIME 4 tabs 0RF 2 days Discontinued sod picosulf-mag ox-citric ac 10 mg-3.5 gram- 12 gram/175 mL (Clenpiq) take first bottle at 5PM evening before colonoscopy follow with at least 5cups (40oz) of clear liquids within 5 hours ; 2nd bottle the next day approximately 8 hours before colonoscopy follow by 4cups (32oz) of clear liquids- need to finish the 4cups of clear liquids 4 hours before your colonoscopy. Discontinued Reason: Insurance Denied 175 mL PO ONCE 350 mL 0RF Coding Level of Care Code Est Pt Level 3 (86478) Diagnoses Oral phase dysphagia R13.11 Dysphagia type: oral phase Nausea R11.0 Tubular adenoma of colon D12.6 Gastroesophageal reflux disease without esophagitis K21.9 Esophagitis presence: without esophagitis Constipation K59.00
== END 2024-01-31 13:21 | disposition home or self-care (01) ==
PROVIDERS: PCP Internal Medicine; Visit Provider Nurse Practitioner
DX: R13.11 Dysphagia, oral phase (principal); R11.0 Nausea; D12.6 Benign neoplasm of colon, unspecified; K21.9 Gastro-esophageal reflux disease without esophagitis; K59.00 Constipation, unspecified
CPT/HCPCS: 99213

== ENCOUNTER → 2024-01-31 11:21 | Outpatient (BNVA) | payer OTHER, SELFPAY | PROVIDERS: PCP Internal Medicine; Visit Provider Nurse Practitioner | DX: K21.9 Gastro-esophageal reflux disease without esophagitis (principal); K59.00 Constipation, unspecified; R13.11 Dysphagia, oral phase; R11.0 Nausea; D12.6 Benign neoplasm of colon, unspecified | CPT/HCPCS: 99212 ==

== ENCOUNTER 2024-02-21 12:07 | Outpatient (REF) | payer OTHER, SELFPAY ==
[2024-02-24 12:12] LABS: TS Negative Control Passed; TS Panel A 0; TS Panel B 0; TS Positive Control Passed; TSpotTB Negative (Negative)
== END 2024-02-21 12:08 | disposition home or self-care (01) ==
LOC: HO.HMGCLNP 12:07
PROVIDERS: PCP Internal Medicine; Visit Provider Internal Medicine
DX: Z11.1 Encounter for screening for respiratory tuberculosis (principal)
CPT/HCPCS: 86481

== ENCOUNTER 2024-03-12 11:06 | Outpatient (REF) | payer OTHER, SELFPAY ==
[2024-03-12 13:17] LABS: MANUAL DIFF FLAG NO
[2024-03-12 13:31] LABS: Appearance Urine Turbid; Color Urine Dark Yellow; Glucose Urine UA Negative (Negative); Leukocyte Esterase Urine Trace (Negative); Nitrite Urine Negative (Negative); PH 5.5 (5.0-9.0); UMIC TRIGGER UACC YES; Urine Blood Negative (Negative); Urine Ketones Trace mg/dL (Negative); Urine Protein Trace mg/dL (Neg-Trace)
[2024-03-12 13:34] LABS: Basophils Percent Auto 0.6 % (0-2); Eosinophils Absolute Auto 0.1 X10*3/uL (0.0-0.4); Eosinophils Percent Auto 1.7 % (0-4); Hematocrit 35.3 % (37.0-47.0); Hemoglobin 11.5 g/dl (12.0-16.0); Imm Gran Abs Auto 0.01 X10*3/uL (0.00-0.03); Imm Gran Pct Auto 0.2 % (0.0-0.4); Lymphocytes Absolute Auto 0.8 X10*3/uL (1.2-4.9); Lymphocytes Percent Auto 14.8 % (20-40); Mean Corpuscular HGB Conc 32.6 g/dl (31.0-35.0); Mean Corpuscular Hemoglobin 27.6 pg (27.0-33.0); Mean Corpuscular Volume 84.9 fL (80.0-98.0); Mean Platelet Volume 10.7 fL (9.4-12.3); Monocytes Absolute Auto 0.5 X10*3/uL (0.1-1.2); Monocytes Percent Auto 8.7 % (2-11); Neutrophils Absolute Auto 3.8 x10*3/uL (2.0-8.3); Platelet Count 198 X10*3/uL (160-400); Red Blood Count 4.16 X10*6/uL (4.20-5.50); Red Cell Distribution Width 14.1 % (11.0-16.0); White Blood Count 5.2 X10*3/uL (4.8-10.8)
[2024-03-12 13:36] LABS: Bacteria Urine None Seen (None Seen); Hyaline Casts Urine 0-2 /LPF (0-2); RBC Urine 0-2 /HPF (0-2); Squamous Epithelial Cell Urine 0-2 /HPF (0-2); WBC Urine 0-5 /HPF (0-5)
[2024-03-12 14:30] LABS: Alanine Aminotransferase 17 U/L (0-31); Albumin Level 4.1 g/dL (3.5-5.0); Alkaline Phosphatase 67 U/L (39-117); Anion Gap 11 (12-20); Aspartate Amino Transferase 25 U/L (5-31); Bilirubin Total 0.4 mg/dL (0.0-1.0); Blood Urea Nitrogen 13 mg/dL (9-16); Calcium 9.4 mg/dL (8.4-10.2); Carbon Dioxide 28 mmol/L (22-29); Chloride 106 mmol/L (96-108); Cholesterol 202 mg/dL (<200); Estimated Glomerular Filt Rate > 60; Glucose Fasting 75 mg/dL (60-99); HDL Cholesterol 74 mg/dL (>40); LDL Cholesterol Calculated 111 mg/dL (<100); Potassium 3.9 mmol/L (3.3-5.1); Sodium 141 mmol/L (135-145); Total Protein 7.3 g/dL (6.5-8.0); Triglycerides 89 mg/dL (<150)
[2024-03-12 14:34] LABS: Free T4 (Free Thyroxine) 1.13 ng/dL (0.71-1.85); Thyroid Stimulating Hormone 0.42 uIU/mL (0.32-4.0); Vitamin D 25-OH Total 42.4 ng/mL (>30)
== END 2024-03-12 11:07 | disposition home or self-care (01) ==
LOC: HO.HMGCLDS 11:06
PROVIDERS: PCP Internal Medicine; Visit Provider Internal Medicine
DX: E78.00 Pure hypercholesterolemia, unspecified (principal); E03.9 Hypothyroidism, unspecified; D64.9 Anemia, unspecified; E55.9 Vitamin D deficiency, unspecified
CPT/HCPCS: 36415; 80053; 80061; 81001; 82306; 84439; 84443; 85025

== ENCOUNTER 2024-03-13 13:42 | Outpatient (AMB) | payer OTHER, SELFPAY ==
--- NOTE | 2024-03-13 13:44 | MHC.OFFVIS ---
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 Accompanied by: Daughter Allergies Sulfa (Sulfonamide Antibiotics) Allergy (Severe, Verified 03/13/24 14:14) Itching codeine [CODEINE] Allergy (Intermediate, Verified 03/13/24 14:14) ITCHING hydroxychloroquine [From PLAQUENIL] Allergy (Intermediate, Verified 03/13/24 14:14) VOMITING morphine [MORPHINE] Allergy (Intermediate, Verified 03/13/24 14:14) ITCHING Estrogens Allergy (Mild, Verified 03/13/24 14:14) Unknown levothyroxine sodium Allergy (Unknown, Verified 03/13/24 14:14) rash,throat closes prednisone Allergy (Unknown, Verified 03/13/24 14:14) Unknown Corticosteroids (Glucocorticoids) [CORTICOSTEROIDS (GLUCOCORTICOIDS)] Adverse Reaction (Severe, Verified 03/13/24 14:14) DIFFICULTY BREATHING escitalopram [From Lexapro] Adverse Reaction (Severe, Verified 03/13/24 14:14) seizure meloxicam Adverse Reaction (Severe, Verified 03/13/24 14:14) Gastrointestinal Upset tadalafil [From Cialis] Adverse Reaction (Intermediate, Verified 03/13/24 14:14) Nausea and Vomiting acetaminophen [Percocet] Adverse Reaction (Unknown, Verified 03/13/24 14:14) Unknown duloxetine Adverse Reaction (Unknown, Verified 03/13/24 14:14) Unknown Medication List - Last Reconciled 03/13/24 by TRINY Jiang amitriptyline 50 mg PO BEDTIME ammonium lactate 12% 1 appl topical BID bisacodyl (Laxative (bisacodyl)) 10 mg (2 x 5 mg) PO BEDTIME bisacodyl (Dulcolax (bisacodyl)) 10 mg (2 x 5 mg) PO BEDTIME 2 days bupropion HCl XL 150 mg PO Q OTHER DAY calcipotriene 0.005% 1 appl topical QAM calcium citrate 500 mg (2 x 250 mg calcium) PO BID cetirizine mg PO chlorhexidine gluconate 0.12% 15 mL PO BID cholecalciferol (vitamin D3) (Vitamin D3) 50 mcg PO DAILY cimetidine 800 mg PO BID clonazepam 1 mg PO BID cyclosporine 0.05% (Restasis) drps ophthalmic (eye) cyproheptadine mg PO dexlansoprazole (Dexilant) 60 mg PO DAILY 90 days diclofenac sodium 1% 2 grams topical QID doxepin 10 mg PO BEDTIME PRN 30 days [EMERGENCY ALERT BRACELET As directed] gabapentin 300 mg PO TID hydroxyzine HCl 25 mg PO TID ketorolac 10 mg PO Q8H PRN 7 days lidocaine 5% 1 patch topical DAILY PRN lifitegrast 5% (Xiidra) 1 drp ophthalmic (eye) BID [LIGHTWEIGHT WALKER (child size) As directed] loratadine 10 mg PO DAILY multivitamin with folic acid 400 mcg (Daily-Dottie (with folic acid)) 1 tab PO DAILY ofloxacin 0.3% drps ophthalmic (eye) ONCE onabotulinumtoxinA (Botox) 200 units IM ondansetron HCl 4 mg PO BID-TID PRN 30 days ondansetron HCl 8 mg PO BEDTIME 15 days orphenadrine citrate ER 100 mg PO BID 4 days oxcarbazepine 150 mg PO BID oxybutynin chloride ER 10 mg PO DAILY polyethylene glycol 3350 (Miralax) 238 grams PO ONCE 1 day simethicone 180 mg PO QID 30 days Synthroid (levothyroxine) 50 mcg PO DAILY 90 days NS trazodone 50 mg PO BEDTIME PRN Ventolin HFA 90 mcg/actuation (albuterol sulfate) 2 puffs inhalation Q6H PRN NS HPI Comments Details: Zara is a very pleasant 58-year-old [place]ayan-speaking female patient of Dr. Davila who was accompanied by her daughter at today's visit. She has a past medical history of hypothyroidism, anxiety, bipolar, depression, constipation, ductal carcinoma in Situ of left breast, fibromyalgia, insomnia, leukopenia, lupus, osteoporosis, polyarthralgia, PTSD, Raynaud's, rheumatoid arthritis, and vitamin-D deficiency. She presents to the office today for follow-up of her lower urinary tract symptoms (urinary urgency, frequency, dysuria with bladder spasm) most likely interstitial cystitis. In discussion with the patient today she reports to be doing and feeling well. She reports having had no flare-ups of her interstitial cystitis. She discusses at length the significant improvement she has been feeling. She denies any bothersome urinary issues or concerns. In office urinalysis results reviewed with the patient today. PVR 0 mL. Of note patient has a history of undergoing cystoscopy hydrodistention with Dr. Keita 03/23. She denies urinary urgency, urinary frequency, incontinence, nocturia, hematuria, dysuria, foul smelling urine, changes to urinary stream, flank pain, fever, and or chills. She is happy with her current voiding parameters. Previous workup has included a retroperitoneal ultrasound noting posterior bladder wall trabeculations possibly related to history of cystitis or hypertrophy. She has trialed low-dose Cialis however experienced reaction of swelling and itching. Discussed and stressed the importance of avoiding bladder triggers/irritants. She otherwise offers no other issues or concerns at this time. 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 Family history of polyps in the colon Fracture of neck of left humerus Humeral head fracture Chronic gastritis Insomnia Hypothyroidism Lupus (systemic lupus erythematosus) Seropositive rheumatoid arthritis Leukopenia Gingivitis History of breast cancer Estrogen receptor positive status [ER+] Ductal carcinoma in situ (DCIS) of left breast Autoimmune disorder PTSD (post-traumatic stress disorder) COVID-19 Bilateral knee pain Fibromyalgia Schatzki's ring Rheumatoid arthritis Small bowel motility disorder Osteoporosis Raynaud's disease without gangrene Bipolar depression Anxiety Primary insomnia Constipation Acquired hypothyroidism Systemic lupus erythematosus Left temporomandibular joint disorder, unspecified Surgical History Hx of abdominoplasty History of esophagogastroduodenoscopy (EGD) Hx of colonoscopy History of bilateral mastectomy History of total abdominal hysterectomy and bilateral salpingo-oophorectomy History of cholecystectomy History of tubal ligation History of section Family History Father Hypertension Prostate cancer Mother Breast cancer Hypertension Asthma Maternal Aunt Breast cancer Maternal Grandmother Colon cancer Maternal Aunt Breast cancer Social History Household Members: Children Household Members Other:: 2 daughters Housing: House Do you presently have visiting nurse or other home services: No Alcohol intake: current Alcohol intake frequency: does not drink Patient Tobacco Use Status: Never used Tobacco e-Cigarette/Vaping Use: Never Used Second Hand Smoke Exposure: No Advance Directives Date on File: 08/12/20 service: No Current occupational status: disabled Sexual orientation: Straight/Heterosexual Cognitive needs: Yes (cane) Hearing needs: No Vision needs: Yes (Glasses) Female Reproductive History Menstrual Age of Menarche: 10 Review of Systems Const Reports as per [facility] Eyes Reports no additional complaints ENT Reports no additional complaints Card Reports as per [facility] Resp Reports no additional complaints GI Reports as per [facility] Reports as per [facility] Musc Reports as per [facility] Skin/Breast Reports as per [facility] Neuro Reports as per [facility] Psych Reports as per [facility] Endo Reports as per [facility] Aller/Immun Reports as per HPI Physical Exam Const General: cooperative, healthy appearing, comfortable, no acute distress, well developed, alert and awake Nutritional Appearance: average body habitus Orientation/consciousness: patient oriented x3 Limitations: ambulation with cane HEENT Head: Yes normal to inspection, Yes normocephalic and Yes atraumatic Ears: hearing grossly normal bilaterally Eyes General: appearance normal, both eyes and all related structures Neck Neck: Yes normal visual inspection and Yes trachea midline Chest Chest palpation & inspection: normal inspection of the chest Resp Effort & Inspection: normal respiratory effort and able to speak in complete sentences Cardio Rate: regular rate GI Inspection: Yes normal to inspection General: Yes no CVA tenderness Back/Spine/Pelvis Back: no CVA tenderness Skin General skin exam: no rashes or lesions noted Neuro General: patient oriented x3 Extrem General: Yes normal to inspection Psych Appearance: grossly normal and well kempt Mental Status: mental status grossly normal Speech and movement: Normal speech and movement present and Clear speech present Affect: normal affect Attitude: cooperative Thought process: Normal thought process present Thought content: Normal thought content present Insight: Fair insight present (Psych) Judgement: Fair judgement present (Psych) Office Procedures Post Void Residual Post Residual Void Post Void Residual (PVR): 0 20570-Mmix Void Residual by ultrasound Results AMB Urinalysis, Automated UA Leukoctes 15 Kristie/uL Last Edit by Tina Cabral on 03/13/24 14:16 UA Nitrite Last Edit by Tina Cabral on 03/13/24 14:16 UA Urobilinogen 0.2 mg/dL Last Edit by Tina Cabral on 03/13/24 14:16 UA Protein 15 mg/dL Last Edit by Tina Cabral on 03/13/24 14:16 UA pH 6.0 Last Edit by Tina Cabral on 03/13/24 14:16 UA Blood 0 Josue/uL Last Edit by Tina Cabral on 03/13/24 14:16 UA Specific Pana 1.020 Last Edit by Tina Cabral on 03/13/24 14:16 UA Ketone Negative Last Edit by Tina Cabral on 03/13/24 14:16 UA Bilirubin 0 mg/dL Last Edit by Tina Cabral on 03/13/24 14:16 UA Glucose 0 mg/dL Last Edit by Tina Cabral on 03/13/24 14:16 Assessment & Plan Assessment & Plan (1) Interstitial cystitis: Code(s): N30.10 - Interstitial cystitis (chronic) without hematuria Category: Medical (2) Recurrent cystitis: Code(s): N30.90 - Cystitis, unspecified without hematuria Category: Medical Plan In office urinalysis results reviewed the patient today; as noted above. PVR 0 mL. Continue oxybutynin 10 mg daily as discussed and prescribed. Patient currently denies any bothersome urinary issues or concerns. She reports be happy with her current voiding parameters. We discussed importance of avoiding bladder triggers/irritants. Follow-up in 1 year straining with PVR; or sooner with any issues, concerns, and or questions. Orders: Orders AMB Urinalysis Automated Today Z13.9 - Encounter for screening, unspecified AMB Post Void Residual by ultrasound Today N30.10 - Interstitial cystitis (chronic) without hematuria Medications: Refilled oxybutynin chloride ER 10 mg PO DAILY 90 tabs 1RF Patient Instructions: The patient had an opportunity to ask questions regarding the treatment plan. All questions were answered. Physical exam, labs, and imaging were discussed and reviewed in detail. As well as risks, benefits, and discussion of treatment choices. No major barriers to understanding were identified. The patient expressed understanding and agreement with the above treatment plan. The patient was made aware they should contact our office by phone for worsening of their current condition, the appearance of new symptoms, or with any questions or concerns. Compliance is encouraged with any medications and follow up testing that is ordered. It is a privilege to be allowed the opportunity to participate in? your urological care.? Again, if you have any questions or concerns If you have any questions or concerns please do not hesitate to contact me. The office is [phone]. This note is constructed using voice recognition software. While every effort has been made to ensure accuracy blog writer errors may have been included. Yours sincerely, TRINY Jiang Coding Level of Care Code Est Pt Level 3 (79538) Complex EM visit Add On G2211 Diagnoses Interstitial cystitis N30.10 Recurrent cystitis N30.90 CPT Codes Post Residual Void - PVR CPT Code: 68016-Vhco Void Residual by ultrasound ([id number])
== END 2024-03-13 14:38 | disposition home or self-care (01) ==
PROVIDERS: PCP Internal Medicine; Visit Provider Nurse Practitioner Family
DX: N30.10 Interstitial cystitis (chronic) without hematuria (principal); N30.90 Cystitis, unspecified without hematuria; Z13.9 Encounter for screening, unspecified
CPT/HCPCS: 99213; G2211

== ENCOUNTER → 2024-03-13 13:42 | Outpatient (BNVA) | payer OTHER, SELFPAY | PROVIDERS: PCP Internal Medicine; Visit Provider Nurse Practitioner Family | DX: N30.10 Interstitial cystitis (chronic) without hematuria (principal); N30.90 Cystitis, unspecified without hematuria | CPT/HCPCS: 51798; 81003; 99212 ==

== ENCOUNTER 2024-03-15 15:46 | Outpatient (AMB) | payer OTHER, SELFPAY ==
[2024-03-15 16:01] VITALS: BP 100/72; PULSE 76; O2SAT 97; BMI 20.4
--- NOTE | 2024-03-15 16:01 | A.OFFPC_ITS ---
Vital Signs 03/15/24 16:01 Height 5 ft 3 in Weight 115 lb BMI 20.4 BP 100/72 Blood Pressure Location Lt brachial Position Sitting Pulse 76 Pulse Source Pulse Oximeter Pulse Oximetry (%) 97 Oxygen Delivery Method Room Air Intake Visit Reasons: hypothyroidism, asthma, fibromyalgia Contact Manager Required: No Accompanied by: Self / Same As Patient Allergies Sulfa (Sulfonamide Antibiotics) Allergy (Severe, Verified 03/15/24 17:11) Itching codeine [CODEINE] Allergy (Intermediate, Verified 03/15/24 17:11) ITCHING hydroxychloroquine [From PLAQUENIL] Allergy (Intermediate, Verified 03/15/24 17:11) VOMITING morphine [MORPHINE] Allergy (Intermediate, Verified 03/15/24 17:11) ITCHING Estrogens Allergy (Mild, Verified 03/15/24 17:11) Unknown levothyroxine sodium Allergy (Unknown, Verified 03/15/24 17:11) rash,throat closes prednisone Allergy (Unknown, Verified 03/15/24 17:11) Unknown Corticosteroids (Glucocorticoids) [CORTICOSTEROIDS (GLUCOCORTICOIDS)] Adverse Reaction (Severe, Verified 03/15/24 17:11) DIFFICULTY BREATHING escitalopram [From Lexapro] Adverse Reaction (Severe, Verified 03/15/24 17:11) seizure meloxicam Adverse Reaction (Severe, Verified 03/15/24 17:11) Gastrointestinal Upset tadalafil [From Cialis] Adverse Reaction (Intermediate, Verified 03/15/24 17:11) Nausea and Vomiting acetaminophen [Percocet] Adverse Reaction (Unknown, Verified 03/15/24 17:11) Unknown duloxetine Adverse Reaction (Unknown, Verified 03/15/24 17:11) Unknown Medication List - Last Reconciled 03/15/24 by Chuck Davila MD amitriptyline 50 mg PO BEDTIME ammonium lactate 12% 1 appl topical BID bisacodyl (Laxative (bisacodyl)) 10 mg (2 x 5 mg) PO BEDTIME bisacodyl (Dulcolax (bisacodyl)) 10 mg (2 x 5 mg) PO BEDTIME 2 days bupropion HCl XL 150 mg PO Q OTHER DAY calcipotriene 0.005% 1 appl topical QAM calcium citrate 500 mg (2 x 250 mg calcium) PO BID cetirizine mg PO chlorhexidine gluconate 0.12% 15 mL PO BID cholecalciferol (vitamin D3) (Vitamin D3) 50 mcg PO DAILY cimetidine 800 mg PO BID clonazepam 1 mg PO BID cyclosporine 0.05% (Restasis) drps ophthalmic (eye) cyproheptadine mg PO dexlansoprazole (Dexilant) 60 mg PO DAILY 90 days diclofenac sodium 1% 2 grams topical QID doxepin 10 mg PO BEDTIME PRN 30 days [EMERGENCY ALERT BRACELET As directed] gabapentin 300 mg PO TID hydroxyzine HCl 25 mg PO TID ketorolac 10 mg PO Q8H PRN 7 days lidocaine 5% 1 patch topical DAILY PRN lifitegrast 5% (Xiidra) 1 drp ophthalmic (eye) BID [LIGHTWEIGHT WALKER (child size) As directed] loratadine 10 mg PO DAILY multivitamin with folic acid 400 mcg (Daily-Dottie (with folic acid)) 1 tab PO DAILY ofloxacin 0.3% drps ophthalmic (eye) ONCE onabotulinumtoxinA (Botox) 200 units IM ondansetron HCl 4 mg PO BID-TID PRN 30 days ondansetron HCl 8 mg PO BEDTIME 15 days orphenadrine citrate ER 100 mg PO BID 4 days oxcarbazepine 150 mg PO BID oxybutynin chloride ER 10 mg PO DAILY polyethylene glycol 3350 (Miralax) 238 grams PO ONCE 1 day simethicone 180 mg PO QID 30 days Synthroid (levothyroxine) 50 mcg PO DAILY 90 days NS trazodone 50 mg PO BEDTIME PRN Ventolin HFA 90 mcg/actuation (albuterol sulfate) 2 puffs inhalation Q6H PRN NS Tobacco use date assessed: 03/15/24 Dental Screening Dental Screen Date: 03/15/24 Did you have a dental visit in the last 12 months?: Yes Did you have a dental problem in the last 6 months where you did not have access to dental care?: No Was dental information given to patient?: Patient has dentist HPI hypothyroidism, asthma, fibromyalgia HPI Details Patient comes in today for her follow up visit She continues to complain of increased pain all over due to her fibromyalgia She is requesting a referral to another transmission and protection engineer she states that the last one she saw in [place] advised her that they do not need to continue following her up for her fibromyalgia, which she finds strange Adds that she also needs a referral to Dr. Gale at [facility] for follow-up of her breast cancer as her previous oncologist, Dr. Nevarez, just recently retired from active practice Patient states that she has been experiencing recurrent sore throat for the past few days Relates that she had sore throat a couple weeks ago as well as some respiratory symptoms, which gradually improved, but other members of the family got sick afterwards and states that over the past couple weeks, they have just been spreading the cold and respiratory symptoms from one family member to another She also relates (+) nasal and sinus congestion and occasional nonproductive cough as well as some fatigue She denies any fever but reports (+) on and off headaches and she is concerned that her migraine headaches are starting to flare up again and she currently does not have any medication to take for migraine Denies any dizziness Denies any exertional chest pains but she still has recurrent HARTMAN No nausea/vomiting, no abdominal pain No change in bowel habits noted She had her follow-up labs done a few days ago - to discuss her results [facility] Medical History (Updated 03/16/24 @ 08:41 by Chuck Davila MD) Chronic pruritus Urticaria Vitamin D deficiency Polyarthralgia Small bowel motility disorder Dry mouth and eyes Seborrhea capitis in adult Bilateral sciatica Urinary frequency Abdominal pannus Positive sm/LDR RN antibody Family history of polyps in the colon Fracture of neck of left humerus Humeral head fracture Chronic gastritis Insomnia Hypothyroidism Seropositive rheumatoid arthritis Leukopenia Gingivitis History of breast cancer Estrogen receptor positive status [ER+] Ductal carcinoma in situ (DCIS) of left breast Autoimmune disorder PTSD (post-traumatic stress disorder) COVID-19 Bilateral knee pain Fibromyalgia Schatzki's ring Rheumatoid arthritis Small bowel motility disorder Osteoporosis Raynaud's disease without gangrene Bipolar depression Anxiety Primary insomnia Constipation Acquired hypothyroidism Systemic lupus erythematosus Left temporomandibular joint disorder, unspecified Surgical History Hx of abdominoplasty History of esophagogastroduodenoscopy (EGD) Hx of colonoscopy History of bilateral mastectomy History of total abdominal hysterectomy and bilateral salpingo-oophorectomy History of cholecystectomy History of tubal ligation History of section Family History Father Hypertension Prostate cancer Mother Breast cancer Hypertension Asthma Maternal Aunt Breast cancer Maternal Grandmother Colon cancer Maternal Aunt Breast cancer Social History Household Members: Children Household Members Other:: 2 daughters Housing: House Do you presently have visiting nurse or other home services: No Alcohol intake: current Alcohol intake frequency: does not drink Patient Tobacco Use Status: Never used Tobacco e-Cigarette/Vaping Use: Never Used Second Hand Smoke Exposure: No Advance Directives Date on File: 08/12/20 service: No Current occupational status: disabled Sexual orientation: Straight/Heterosexual Cognitive needs: Yes (cane) Hearing needs: No Vision needs: Yes (Glasses) Female Reproductive History Menstrual Age of Menarche: 10 Questionnaire PHQ-9 Over the last 2 weeks, how often have you been bothered by any of the following problems? 1. Little interest or pleasure in doing things: several days 2. Feeling down, depressed, or hopeless: several days 3. Trouble falling or staying asleep, or sleeping too much: several days 4. Feeling tired or having little energy: several days 5. Poor appetite or overeating: several days 6. Feeling bad about yourself - or that you are a failure or have let yourself or your family down: several days 7. Trouble concentrating on things, such as reading the newspaper or watching television: not at all 8. Moving or speaking so slowly that other people could have noticed. Or the opposite - being so fidgety or restless that you have been moving around a lot more than usual: not at all 9. Thoughts that you would be better off or of hurting yourself in some way: not at all Total score: 6 Depression Screening Interpretation: Positive Depression Screening Follow-up: Existing condition and In treatment Depression Screening Done: Yes 67697 - PHQ-9 Billing: Yes Source: Developed by Drs. Som Barrera, Stephy Taylor, Michele Li and colleagues, with an educational coleman from [employer]. Thrive Questionnaire Date Thrive assessed: 03/15/24 I am a: Patient What is your living situation today?: I have a steady place to live Within the past 12 months, did the food you bought not last and you didn't have the money to get more?: Never true Within the past 12 months, did you worry whether your food would run out before you got money to buy more?: Never true Do you have trouble paying for medicines?: No Do you have trouble getting transportation to medical appointments?: No Do you have trouble paying your heating and electricity bill?: No Do you have trouble taking care of your child, family member or friend?: No Do you have trouble with day-to-day activities such as bathing, preparing meals, shopping, managing finances, etc.?: No Are you currently unemployed and looking for a job?: No Are you interested in more education?: No Please select the resources that you would like help with: None Currently or been in a relationship where the following occur: No concerns reported THRIVE Score: 0 AUDIT C Alcohol Use Questionnaire (AUDIT-C) 1. How often do you have a drink containing alcohol?: Never 3. How often do you have six or more drinks on one occasion?: Never Total Score: 0 Score Reviewed/Action Taken: Yes MOSHE-7 AMB Questionnaire MOSHE-7 Date MOSHE - 7 assessed: 03/15/24 Feeling nervous, anxious, or on edge: 1 = Several days (on medication) Not being able to stop or control worryin = Not at all Worrying too much about different things: 0 = Not at all Trouble relaxin = Not at all Being so restless that it is hard to sit still: 0 = Not at all Becoming easily annoyed or irritable: 0 = Not at all Feeling afraid as if something awful might happen: 0 = Not at all Total MOSHE-7 score (0-4 normal; 5-9 mild; 10-14 moderate; 15-21 severe): 1 Source: Developed by Drs. Som Barrera, Stephy Taylor, Michele Li and colleagues, with an educational coleman from [employer]. Review of Systems Const Reports body aches (diffuse), Denies chills, Reports fatigue (chronic), Denies fever(s) and Reports headache(s) (recurrent lately) ENT Reports dysphagia (on and off), Denies dizziness, Denies otalgia, Reports headache(s) (recurrent lately), Reports neck pain (chronic), Denies odynophagia and Reports sore throat Card Denies chest pain, Denies palpitations and Reports dyspnea on exertion (mild, chronic) Resp Denies chest congestion, Reports cough (on and off, nonproductive), Reports dyspnea on exertion (mild, chronic) and Denies wheezing GI Denies abdominal pain, Reports constipation (Rx helping), Reports dysphagia (on and off), Denies heartburn, Denies diarrhea, Denies nausea, Denies odynophagia and Denies vomiting Denies hematuria, Reports nocturia, Denies dysuria and Denies urinary urgency Musc Reports back pain (over the lower back, on and off; also over both shoulder areas ), Reports arthralgias (involving multiple joints, especially both s houlders/scapular areas) and Reports neck pain (chronic) Skin/Breast Denies rash Neuro Denies dizziness and Reports headache(s) (recurrent lately) Psych Reports anxiety Endo Reports fatigue (chronic) and Denies palpitations Aller/Immun Denies wheezing Physical exam (Primary Care) Vital Signs: Last Vital Signs Pulse 76 03/15/24 16:01 BP 100/72 03/15/24 16:01 Pulse Ox 97 03/15/24 16:01 Oxygen Delivery Method Room Air 03/15/24 16:01 BMI result Body Mass Index 20.4 Tobacco/Smoking Status: Tobacco use Status Tobacco use date assessed 03/15/24 03/15/24 16:06 Patient Tobacco Use Status Never used Tobacco 03/15/24 16:06 e-Cigarette/Vaping Use Never Used 03/15/24 16:06 PHQ-9: PHQ-9 Score PHQ-9: Total score 6 03/15/24 17:14 Depression Screening Interpretation: Positive Depression Screening Follow-up: Existing condition and In treatment Thrive Assessment: Date of Thrive Assessment Date Thrive assessed 03/15/24 03/15/24 16:06 Currently or been in a relationship where the following occur: No concerns reported Const General: no acute distress and alert HENMT Ears: TM's normal bilaterally and EAC's normal Throat: Yes tonsils normal and Yes posterior oropharynx abnormal (increased erythema of the posterior pharynx) Neck Neck: Yes no lymphadenopathy and Yes tender (over the cervical spine and paraspinal areas bilaterally) Thyroid: Thyroid normal Resp Auscultation: clear to auscultation bilaterally, no rales and no wheezes Cardio Rate: regular rate Rhythm: regular rhythm Heart sounds: no murmurs GI Palpation (GI): Soft to palpation and nontender Auscultation: normal bowel sounds General: Yes no CVA tenderness Back/Spine/Pelvis Back: no CVA tenderness Thoracic/Lumbar Spine: paraspinal muscle tenderness bilaterally (over the cervical and thoracolumbar spine (diffuse)) and lumbar spinal tenderness Skin Rashes: no rashes Extrem General: Yes no clubbing, cyanosis or edema Right upper extremity: shoulder/upper arm Details: tenderness (diffusely over the scapular area) Left upper extremity: shoulder/upper arm Details: tenderness (diffusely over the scapular areas) Results Reviewed Results Reviewed: Laboratory Tests 03/12/24 03/13/24 11:10 13:52 WBC 5.2 Hgb 11.5 L Hct 35.3 L Plt Count 198 Sodium 141 Potassium 3.9 Creatinine 0.67 Estimated GFR > 60 Fasting Glucose 75 Calcium 9.4 AST 25 ALT 17 Triglycerides 89 Cholesterol 202 H LDL Cholesterol, Calc 111 H HDL Cholesterol 74 25-OH Vitamin D Total 42.4 TSH 0.42 Free T4 1.13 Ur Specific [place] 1.020 Specific [place] (Auto) 1.020 Urine Protein Trace Urine Glucose (UA) Negative Urine Blood Negative Urine Nitrite Negative Ur Leukocyte Esterase Trace H Coding Level of Care Code Est Pt Level 4 (40017) Complex EM visit Add On G2211 Diagnoses Pharyngitis, unspecified etiology J02.9 Pharyngitis/tonsillitis etiology: unspecified etiology Fibromyalgia M79.7 Polyarthralgia M25.50 Systemic lupus erythematosus, unspecified SLE type, unspecified organ involvement status M32.9 Systemic lupus erythematosus type: unspecified Systemic lupus erythematosus organ involvement: unspecified Dystonia G24.9 Nonintractable episodic headache, unspecified headache type R51.9 Headache type: unspecified Headache chronicity pattern: episodic headache Intractability: not intractable Oral phase dysphagia R13.11 Dysphagia type: oral phase Acquired hypothyroidism E03.9 Chronic pruritus L29.9 Anemia, unspecified type D64.9 Anemia type: unspecified type Osteoporosis without current pathological fracture, unspecified osteoporosis type M81.0 Osteoporosis type: unspecified Presence of current pathological fracture: without current pathological fracture Vitamin D deficiency E55.9 Gastroesophageal reflux disease without esophagitis K21.9 Esophagitis presence: without esophagitis Chronic idiopathic constipation K59.04 Interstitial cystitis N30.10 Primary insomnia F51.01 Anxiety F41.9 Bipolar depression F31.9 Additional Codes PHQ-9 - 00030 - PHQ-9 Billing: Yes ([id number]) Assessment & Plan Assessment & Plan (1) Pharyngitis: Code(s): J02.9 - Acute pharyngitis, unspecified Category: Medical Qualifiers: Pharyngitis/tonsillitis etiology: unspecified etiology Qualified Code(s): J02.9 - Acute pharyngitis, unspecified Plan: Will go ahead and start patient empirically on Amxocillin 875 mg BID x 7 days (2) Fibromyalgia: Code(s): M79.7 - Fibromyalgia Category: Medical Plan: She is advised again that a lot of her current symptoms, including her recurrent neck and shoulder/scapular pains, are consistent with symptoms of fibromyalgia Patient was seeing Dr. Castrejon at [facility] in [place] previously and has been reportedly advised that although she tested positive for DANA, all other workups were negative and she has no clinical evidence of active disease and there is no indication for treatment for lupus or RA at the time She was seen by rheumatology here at [facility] previously and was advised of the same - that she has no evidence of active inflammatory joint disease and there is no indication for therapy; was also reportedly advised that she may have fibromyalgia but to continue following up with her PCP for this, which she finds strange Have advised patient that rheumatology nowadays mostly do not see fibromyalgia patients anymore and management of these are often left up to the patient's PCP to handle Her lumbar spine x-rays done last year came back normal Patient is again encouraged to stay active and exercise regularly (as tolerated) to help manage her fibromyalgia symptoms Continue Lidocaine patches PRN and Gabapentin 300 mg TID (3) Polyarthralgia: Code(s): M25.50 - Pain in unspecified joint Category: Medical Plan: Continue Orphenadrine ER 100 mg BID, Diclofenac sodium 1% gel topically PRN and Toradol 10 mg Q 8 hours PRN Follow up with [facility] Pain Management as scheduled She was going to physical therapy previously but states that she did not experience any relief from PT and has been advised to consider a referral to physiatry instead Per her request we did refer her back to Rheumatology for reassessment and also to recheck her history of SLE (4) Systemic lupus erythematosus: Code(s): M32.9 - Systemic lupus erythematosus, unspecified Category: Medical Qualifiers: Systemic lupus erythematosus type: unspecified Systemic lupus erythematosus organ involvement: unspecified Qualified Code(s): M32.9 - Systemic lupus erythematosus, unspecified Plan: Patient reports (+) Hx of SLE and she received some unrecalled Tx for lupus while she was still living in [place] many years ago but did not tolerate the Tx (5) Dystonia: Code(s): G24.9 - Dystonia, unspecified Category: Medical Plan: She continues to receive botox injections from neurology when needed for cervical dystonia Follow up with neurology as scheduled (6) Headache: Code(s): R51.9 - Headache, unspecified Category: Medical Qualifiers: Headache type: unspecified Headache chronicity pattern: episodic headache Intractability: not intractable Qualified Code(s): R51.9 - Headache, unspecified Plan: Patient reports that she has been experiencing frequent headaches lately and is concerned that her migraine headaches may be flaring up again Have advised her that she needs to discuss this with Neurology at her next appointment with them to see if Botox injection can also be an option for her headaches, especially if they do not respond adequately to medications Will start her back on Sumatriptan 50 mg PRN for now Patient is reminded to continue avoiding any potential migraine triggers as best as she can (7) Dysphagia: Comment: ORAL PHASE WITH CHOKING ON SOLID FOODS Code(s): R13.10 - Dysphagia, unspecified Category: Medical Qualifiers: Dysphagia type: oral phase Qualified Code(s): R13.11 - Dysphagia, oral phase Plan: Modified barium swallow done last month revealed the presence of a mild esophageal webbing at the level of C5 She was seen by GI for follow up last month and she is now scheduled for her EGD as well as her colonoscopy next week for further evaluation (8) Acquired hypothyroidism: Code(s): E03.9 - Hypothyroidism, unspecified Category: Medical Plan: Her TFTs were normal on her recent labs Continue Synthroid 50 mcg QD Follow up with endocrinology as scheduled (9) Chronic pruritus: Code(s): L29.9 - Pruritus, unspecified Category: Medical Plan: She is currently still taking Loratadine 10 mg Q AM and Cetirizine 10 mg 1 to 2 tablets Q HS PRN for her symptoms She has been seeing allergists at [facility] for a couple of years now She recently failed Xolair and is being started on a trial of Dupixent instead (10) Anemia: Comment: mild Code(s): D64.9 - Anemia, unspecified Category: Medical Qualifiers: Anemia type: unspecified type Qualified Code(s): D64.9 - Anemia, unspecified Plan: Continue Feosol 65 mg every other day - patient gets very constipated when she takes Rx daily She is also undergoing colonoscopy next week further evaluation (11) Osteoporosis: Code(s): M81.0 - Age-related osteoporosis without current pathological fracture Category: Medical Qualifiers: Osteoporosis type: unspecified Presence of current pathological fracture: without current pathological fracture Qualified Code(s): M81.0 - Age- related osteoporosis without current pathological fracture Plan: Continue oral calcium and Vitamin D supplements daily Fall precautions reinforced Follow up with endocrinology as scheduled - she was referred by Dr. Brandon to the [facility] Vitamin D and bone metabolism unit for a second opinion but states that she has not yet been contacted for an appointment Have advised patient / daughter to reach out to Dr. Brandon regarding this as I am not familiar with the place that she was referred to nor with the reason as to why she is being referred there (12) Vitamin D deficiency: Code(s): E55.9 - Vitamin D deficiency, unspecified Category: Medical Plan: Continue Vitamin D2 75254 units once a week (13) GERD (gastroesophageal reflux disease): Code(s): K21.9 - Gastro-esophageal reflux disease without esophagitis Category: Medical Qualifiers: Esophagitis presence: without esophagitis Qualified Code(s): K21.9 - Gastro-esophageal reflux disease without esophagitis Plan: Dietary restrictions reinforced Continue Dexilant 60 mg QD (14) Chronic idiopathic constipation: Code(s): K59.04 - Chronic idiopathic constipation Category: Medical Plan: Continue Bisacodyl PRN and Colace 100 mg QD PRN Patient is again encouraged on increased oral fluids and dietary fiber Follow up with GI as scheduled (15) Interstitial cystitis: Code(s): N30.10 - Interstitial cystitis (chronic) without hematuria Category: Medical Plan: Her urinary bladder US done months ago revealed (+) posterior wall trabeculations but no generalized bladder wall thickening and no masses or calculi noted S/P cystoscopy with hydrodistention by urology a few months ago, with reported significant improvement of her symptoms following the procedure Patient is again encouraged to increase her oral fluid intake and was advised that drinking cranberry juice may help with her symptoms Follow up with urology as scheduled (16) Primary insomnia: Code(s): F51.01 - Primary insomnia Category: Medical Plan: Sleep hygiene reinforced Continue Trazodone 50 mg Q HS (17) Anxiety: Code(s): F41.9 - Anxiety disorder, unspecified Category: Medical Plan: Continue Clonazepam 1 mg BID PRN (18) Bipolar depression: Code(s): F31.9 - Bipolar disorder, unspecified Category: Medical Plan: Continue Bupropion XL 150 mg QOD Follow-up with Psychiatry as scheduled Plan Follow up in 4 months Orders: Orders Lipid Panel 4 Months E78.00 - Pure hypercholesterolemia, unspecified Erythrocyte Sedimentation Rate 4 Months M25.50 - Pain in unspecified joint, M79.7 - Fibromyalgia Free T4 (Free Thyroxine) 4 Months E03.9 - Hypothyroidism, unspecified Vitamin B12 and Folate 4 Months E53.8 - Deficiency of other specified B group vitamins Complete Blood Count Auto Diff 4 Months D64.9 - Anemia, unspecified Comprehensive [place]. Panel Fast 4 Months E78.00 - Pure hypercholesterolemia, unspecified C Reactive Protein 4 Months M25.50 - Pain in unspecified joint Thyroid Stimulating Hormone 4 Months E03.9 - Hypothyroidism, unspecified UA CC w/rflx Micro + Cult 4 Months R30.0 - Dysuria Vitamin D 25-OH Total 4 Months E55.9 - Vitamin D deficiency, unspecified Referrals Hematology & Oncology Referral Z85.3 - Personal history of malignant neoplasm of breast Rheumatology Referral M25.50 - Pain in unspecified joint, M32.9 - Systemic lupus erythematosus, unspecified Medications: New amoxicillin 875 mg PO BID 7 days 14 tabs 0RF sumatriptan succinate take 1 tab at onset of headache; if no relief may repeat 1 tab after at least 2 hrs; max = 4 tabs/24 hr PO 10 tabs 3RF Changed From cetirizine PO To cetirizine 10 mg PO DAILY PRN allergy symptoms
== END 2024-03-15 17:25 | disposition home or self-care (01) ==
PROVIDERS: PCP Internal Medicine; Visit Provider Internal Medicine
DX: J02.9 Acute pharyngitis, unspecified (principal); M32.9 Systemic lupus erythematosus, unspecified; F31.9 Bipolar disorder, unspecified; M79.7 Fibromyalgia; M25.50 Pain in unspecified joint; G24.9 Dystonia, unspecified; R51.9 Headache, unspecified; R13.11 Dysphagia, oral phase; E03.9 Hypothyroidism, unspecified; L29.9 Pruritus, unspecified; D64.9 Anemia, unspecified; M81.0 Age-related osteoporosis without current pathological fracture

== ENCOUNTER → 2024-03-15 15:46 | Outpatient (BNVA) | payer OTHER, SELFPAY | PROVIDERS: PCP Internal Medicine; Visit Provider Internal Medicine | DX: J02.9 Acute pharyngitis, unspecified (principal); M79.7 Fibromyalgia; M32.9 Systemic lupus erythematosus, unspecified; G24.9 Dystonia, unspecified; R51.9 Headache, unspecified; R13.11 Dysphagia, oral phase; E03.9 Hypothyroidism, unspecified; L29.9 Pruritus, unspecified; D64.9 Anemia, unspecified; M81.0 Age-related osteoporosis without current pathological fracture; E55.9 Vitamin D deficiency, unspecified; K21.9 Gastro-esophageal reflux disease without esophagitis; K59.04 Chronic idiopathic constipation; N30.01 Acute cystitis with hematuria; F51.01 Primary insomnia; F41.9 Anxiety disorder, unspecified; F31.9 Bipolar disorder, unspecified | CPT/HCPCS: 96127; 99212 ==

== ENCOUNTER 2024-03-19 12:02 | Day surgery (SDC) | payer OTHER, SELFPAY ==
--- NOTE | 2024-03-19 12:59 | P.HPSUR_ITS ---
Pre-Procedural Eval Section A - 24 Hr Update-Section A only Date of Service: 03/19/24 Section B - Complete if H&P > 30 days Chief Complaint: Benign neoplasm of colon, unspecified Relevant Family History (Specify if Yes): No Relevant Social History: None Present Medications: see Short Stay Collaborative assessment Medical History: Significant History (Chronic pruritus Urticaria Vitamin D deficiency Polyarthralgia Small bowel motility disorder Dry mouth and eyes Seborrhea capitis in adult Bilateral sciatica Urinary frequency Abdominal pannus Positive sm/[employer] antibody Family history of polyps in the colon Fracture of neck of left humerus Humeral hea) History of Previous Operations: Relevant previous surgery/procedure and date(s) ( Hx of abdominoplasty History of esophagogastroduodenoscopy (EGD) Hx of colonoscopy History of bilateral mastectomy History of total abdominal hysterectomy and bilateral salpingo-oophorectomy History of cholecystectomy History of tubal ligation History of section) Allergies: Allergies Allergy/AdvReac Type Severity Reaction Status Date / Time Sulfa (Sulfonamide Allergy Severe Itching Verified 03/15/24 17:11 Antibiotics) codeine [CODEINE] Allergy Intermediate ITCHING Verified 03/15/24 17:11 hydroxychloroquine Allergy Intermediate VOMITING Verified 03/15/24 17:11 [From PLAQUENIL] morphine [MORPHINE] Allergy Intermediate ITCHING Verified 03/15/24 17:11 Estrogens Allergy Mild Unknown Verified 03/15/24 17:11 levothyroxine sodium Allergy Unknown rash,throat Verified 03/15/24 17:11 closes prednisone Allergy Unknown Unknown Verified 03/15/24 17:11 Corticosteroids AdvReac Severe DIFFICULTY Verified 03/15/24 17:11 (Glucocorticoids) BREATHING [CORTICOSTEROIDS (GLUCOCORTICOIDS)] escitalopram [From Lexapro] AdvReac Severe seizure Verified 03/15/24 17:11 meloxicam AdvReac Severe Gastrointestinal Verified 03/15/24 17:11 Upset tadalafil [From Cialis] AdvReac Intermediate Nausea and Verified 03/15/24 17:11 Vomiting acetaminophen [Percocet] AdvReac Unknown Unknown Verified 03/15/24 17:11 duloxetine AdvReac Unknown Unknown Verified 03/15/24 17:11 Review of Systems Sugical H&P ROS: Negative: Constitution, Cardiovascular, Respiratory, Neurolo gical, Psychiatric, Hem-Onc, Allergic/Immunologic, Gastrointestinal, Genitourinary, Musculoskeletal, Integumentary, Endocrine and Eyes/Ears/Nose/Throat Exam Surgical H&P Exam: Normal: HEENT, Normal: Heart, Normal: Lungs, Normal: Extremities, Normal: Abdomen, Normal: Skin and Normal: Neurological Plan Diagnosis/Plan: Unchanged I have reviewed the history and physical and performed a pertinent physical examination on my patient. No changes have occurred unless specified. Time Spent With Patient Time: Total time managing care of this patient today ____ minutes.
[2024-03-19 13:07] VITALS: BMI 20.8
--- NOTE | 2024-03-19 13:15 | P.CONAN_ITS ---
Documented by User: Henny Alberto NP 03/18/24 13:39 HPI - Anesthesia Eval Consult details Narrative: 58yo F for Upper Endoscopy Multiple Allergies PMFSH Active Problems Active Problems: All Active Problems Chronic pruritus (Acute) Chronic idiopathic constipation (Acute) Vitamin D deficiency (Acute) Headache (Acute) Polyarthralgia (Acute) Pharyngitis (Acute) Arthralgia (Acute) History of breast cancer in female (Acute) Screening for tuberculosis (Acute) Nausea (Acute) Dysphagia (Acute) Osteoarthritis of lumbar spine (Acute) Osteoarthritis of knees, bilateral (Acute) Interstitial cystitis (Acute) Recurrent cystitis (Acute) Bilateral carpal tunnel syndrome (Acute) Dystonia (Acute) Elevated BP without diagnosis of hypertension (Acute) Anemia (Acute) Tubular adenoma of colon (Acute) GERD (gastroesophageal reflux disease) (Acute) Constipation (Acute) PTSD (post-traumatic stress disorder) (Acute) Fibromyalgia (Acute) Osteoporosis (Acute) Raynaud's disease without gangrene (Acute) Bipolar depression (Acute) Anxiety (Acute) Primary insomnia (Acute) Acquired hypothyroidism (Acute) Systemic lupus erythematosus (Acute) Left temporomandibular joint disorder, unspecified (Acute) Past Medical History Medical History (Updated 03/16/24 @ 08:41 by Chuck Davila MD) Chronic pruritus Urticaria Vitamin D deficiency Polyarthralgia Small bowel motility disorder Dry mouth and eyes Seborrhea capitis in adult Bilateral sciatica Urinary frequency Abdominal pannus 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 Family history of polyps in the colon Fracture of neck of left humerus Humeral head fracture Chronic gastritis Insomnia Hypothyroidism Seropositive rheumatoid arthritis Leukopenia Gingivitis History of breast cancer Estrogen receptor positive status [ER+] Ductal carcinoma in situ (DCIS) of left breast Autoimmune disorder PTSD (post-traumatic stress disorder) COVID-19 Bilateral knee pain Fibromyalgia Schatzki's ring Rheumatoid arthritis Small bowel motility disorder Osteoporosis Raynaud's disease without gangrene Bipolar depression Anxiety Primary insomnia Constipation Acquired hypothyroidism Systemic lupus erythematosus Left temporomandibular joint disorder, unspecified Family History Family History Father Hypertension Prostate cancer Mother Breast cancer Hypertension Asthma Maternal Aunt Breast cancer Maternal Grandmother Colon cancer Maternal Aunt Breast cancer Family history of problems with anesthesia: No Surgical History Surgical History Hx of abdominoplasty History of esophagogastroduodenoscopy (EGD) Hx of colonoscopy History of bilateral mastectomy History of total abdominal hysterectomy and bilateral salpingo-oophorectomy History of cholecystectomy History of tubal ligation History of section History of Problems with Anesthesia: No Social History Social History Household Members: Children Household Members Other:: 2 daughters Housing: House Do you presently have visiting nurse or other home services: No Alcohol intake: current Alcohol intake frequency: does not drink Patient Tobacco Use Status: Never used Tobacco e-Cigarette/Vaping Use: Never Used Second Hand Smoke Exposure: No Advance Directives: No Advance Directives Information Provided: Yes Advance Directives Date on File: 08/12/20 service: No Current occupational status: disabled Sexual orientation: Straight/Heterosexual Cognitive needs: Yes (cane) Hearing needs: No Vision needs: Yes (Glasses) Meds Allergies Allergy/AdvReac Type Severity Reaction Status Date / Time Sulfa (Sulfonamide Allergy Severe Itching Verified 03/15/24 17:11 Antibiotics) codeine [CODEINE] Allergy Intermediate ITCHING Verified 03/15/24 17:11 hydroxychloroquine Allergy Intermediate VOMITING Verified 03/15/24 17:11 [From PLAQUENIL] morphine [MORPHINE] Allergy Intermediate ITCHING Verified 03/15/24 17:11 Estrogens Allergy Mild Unknown Verified 03/15/24 17:11 levothyroxine sodium Allergy Unknown rash,throat Verified 03/15/24 17:11 closes prednisone Allergy Unknown Unknown Verified 03/15/24 17:11 Corticosteroids AdvReac Severe DIFFICULTY Verified 03/15/24 17:11 (Glucocorticoids) BREATHING [CORTICOSTEROIDS (GLUCOCORTICOIDS)] escitalopram [From Lexapro] AdvReac Severe seizure Verified 03/15/24 17:11 meloxicam AdvReac Severe Gastrointestinal Verified 03/15/24 17:11 Upset tadalafil [From Cialis] AdvReac Intermediate Nausea and Verified 03/15/24 17:11 Vomiting acetaminophen [Percocet] AdvReac Unknown Unknown Verified 03/15/24 17:11 duloxetine AdvReac Unknown Unknown Verified 03/15/24 17:11 Home Medications ?Medication ?Instructions ?Recorded ?Confirmed ?Last Taken ?Type clonazepam 1 mg tablet 1 mg PO BID 08/27/22 03/15/24 03/06/23 History ammonium lactate 12 % topical cream 1 appl topical BID 09/14/22 03/15/24 Unknown History multivitamin with folic acid 400 1 tab PO DAILY 09/14/22 03/15/24 Unknown History mcg tablet (Daily-Dottie (with folic acid)) onabotulinumtoxinA 200 unit 200 unit IM 11/29/22 03/15/24 Unknown History solution for injection (Botox) trazodone 50 mg tablet 50 mg PO BEDTIME PRN Insomnia 11/29/22 03/15/24 Unknown History chlorhexidine gluconate 0.12 % 15 ml PO BID 12/01/22 03/15/24 Unknown History mouthwash lidocaine 5 % topical patch 1 patch topical DAILY PRN Pain 12/01/22 03/15/24 Unknown History amitriptyline 50 mg tablet 50 mg PO BEDTIME 04/17/23 03/15/24 Unknown History calcipotriene 0.005 % topical cream 1 appl topical QAM 04/17/23 03/15/24 Unknown History lifitegrast 5 % eye drops in a 1 drp ophthalmic (eye) BID 07/26/23 03/15/24 Unknown History dropperette (Xiidra) cyclosporine 0.05 % eye drops in a drp ophthalmic (eye) 01/31/24 03/15/24 Unknown History dropperette (Restasis) cyproheptadine 4 mg tablet mg PO 01/31/24 03/15/24 Unknown History hydroxyzine HCl 25 mg tablet 25 mg PO TID 01/31/24 03/15/24 Unknown History loratadine 10 mg tablet 10 mg PO DAILY 01/31/24 03/15/24 Unknown History ofloxacin 0.3 % eye drops drp ophthalmic (eye) ONCE 03/13/24 03/15/24 Unknown History cetirizine 10 mg tablet 10 mg PO DAILY PRN allergy symptoms 03/15/24 03/15/24 Unknown History Exam Pertinent Lab Results Pertinent Lab Results: Laboratory Tests 03/12/24 11:10 WBC 5.2 Hgb 11.5 L Hct 35.3 L Plt Count 198 Sodium 141 Potassium 3.9 Chloride 106 Carbon Dioxide 28 BUN 13 Creatinine 0.67 Assessment and Plan Assessment Anesthesia Assessment: Chart Reviewed Final Anesthetic Review Family History of Problems with Anesthesia: No History of Problems with Anesthesia: No Documented by User: Jocy Chamberlain DO 03/19/24 13:35 [facility] Past Medical History Medical History (Updated 03/16/24 @ 08:41 by Chuck Davila MD) Chronic pruritus Urticaria Vitamin D deficiency Polyarthralgia Small bowel motility disorder Dry mouth and eyes Seborrhea capitis in adult Bilateral sciatica Urinary frequency Abdominal pannus 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 Family history of polyps in the colon Fracture of neck of left humerus Humeral head fracture Chronic gastritis Insomnia Hypothyroidism Seropositive rheumatoid arthritis Leukopenia Gingivitis History of breast cancer Estrogen receptor positive status [ER+] Ductal carcinoma in situ (DCIS) of left breast Autoimmune disorder PTSD (post-traumatic stress disorder) COVID-19 Bilateral knee pain Fibromyalgia Schatzki's ring Rheumatoid arthritis Small bowel motility disorder Osteoporosis Raynaud's disease without gangrene Bipolar depression Anxiety Primary insomnia Constipation Acquired hypothyroidism Systemic lupus erythematosus Left temporomandibular joint disorder, unspecified Family History Family History Father Hypertension Prostate cancer Mother Breast cancer Hypertension Asthma Maternal Aunt Breast cancer Maternal Grandmother Colon cancer Maternal Aunt Breast cancer Family history of problems with anesthesia: No Surgical History Surgical History Hx of abdominoplasty History of esophagogastroduodenoscopy (EGD) Hx of colonoscopy History of bilateral mastectomy History of total abdominal hysterectomy and bilateral salpingo-oophorectomy History of cholecystectomy History of tubal ligation History of section History of Problems with Anesthesia: No Social History Social History Household Members: Children Household Members Other:: 2 daughters Housing: House Do you presently have visiting nurse or other home services: No Alcohol intake: current Alcohol intake frequency: does not drink Patient Tobacco Use Status: Never used Tobacco e-Cigarette/Vaping Use: Never Used Second Hand Smoke Exposure: No Advance Directives: No Advance Directives Information Provided: Yes Advance Directives Date on File: 08/12/20 service: No Current occupational status: disabled Sexual orientation: Straight/Heterosexual Cognitive needs: Yes (cane) Hearing needs: No Vision needs: Yes (Glasses) Meds Allergies Allergy/AdvReac Type Severity Reaction Status Date / Time Sulfa (Sulfonamide Allergy Severe Itching Verified 03/15/24 17:11 Antibiotics) codeine [CODEINE] Allergy Intermediate ITCHING Verified 03/15/24 17:11 hydroxychloroquine Allergy Intermediate VOMITING Verified 03/15/24 17:11 [From PLAQUENIL] morphine [MORPHINE] Allergy Intermediate ITCHING Verified 03/15/24 17:11 Estrogens Allergy Mild Unknown Verified 03/15/24 17:11 levothyroxine sodium Allergy Unknown rash,throat Verified 03/15/24 17:11 closes prednisone Allergy Unknown Unknown Verified 03/15/24 17:11 Corticosteroids AdvReac Severe DIFFICULTY Verified 03/15/24 17:11 (Glucocorticoids) BREATHING [CORTICOSTEROIDS (GLUCOCORTICOIDS)] escitalopram [From Lexapro] AdvReac Severe seizure Verified 03/15/24 17:11 meloxicam AdvReac Severe Gastrointestinal Verified 03/15/24 17:11 Upset tadalafil [From Cialis] AdvReac Intermediate Nausea and Verified 03/15/24 17:11 Vomiting acetaminophen [Percocet] AdvReac Unknown Unknown Verified 03/15/24 17:11 duloxetine AdvReac Unknown Unknown Verified 03/15/24 17:11 Home Medications ?Medication ?Instructions ?Recorded ?Confirmed ?Last Taken ?Type clonazepam 1 mg tablet 1 mg PO BID 08/27/22 03/15/24 03/06/23 History ammonium lactate 12 % topical cream 1 appl topical BID 09/14/22 03/15/24 Unknown History multivitamin with folic acid 400 1 tab PO DAILY 09/14/22 03/15/24 Unknown History mcg tablet (Daily-Dottie (with folic acid)) onabotulinumtoxinA 200 unit 200 unit IM 11/29/22 03/15/24 Unknown History solution for injection (Botox) trazodone 50 mg tablet 50 mg PO BEDTIME PRN Insomnia 11/29/22 03/15/24 Unknown History chlorhexidine gluconate 0.12 % 15 ml PO BID 12/01/22 03/15/24 Unknown History mouthwash lidocaine 5 % topical patch 1 patch topical DAILY PRN Pain 12/01/22 03/15/24 Unknown History amitriptyline 50 mg tablet 50 mg PO BEDTIME 04/17/23 03/15/24 Unknown History calcipotriene 0.005 % topical cream 1 appl topical QAM 04/17/23 03/15/24 Unknown History lifitegrast 5 % eye drops in a 1 drp ophthalmic (eye) BID 07/26/23 03/15/24 Unknown History dropperette (Xiidra) cyclosporine 0.05 % eye drops in a drp ophthalmic (eye) 01/31/24 03/15/24 Unknown History dropperette (Restasis) cyproheptadine 4 mg tablet mg PO 01/31/24 03/15/24 Unknown History hydroxyzine HCl 25 mg tablet 25 mg PO TID 01/31/24 03/15/24 Unknown History loratadine 10 mg tablet 10 mg PO DAILY 01/31/24 03/15/24 Unknown History ofloxacin 0.3 % eye drops drp ophthalmic (eye) ONCE 03/13/24 03/15/24 Unknown History cetirizine 10 mg tablet 10 mg PO DAILY PRN allergy symptoms 03/15/24 03/15/24 Unknown History Exam Exam Date and Time: 03/19/24 1315 Height,Weight and Vital Signs: Height 5 ft 2 in Weight 51.71 kg Airway Mallampati Class: II TM Dist: >3cm Neck ROM: Full Loose/Missing/Broken Teeth: Yes (Several missing teeth - dentures removed already) Heart: S1S2 Lungs: CTAB Assessment and Plan Assessment Anesthesia Assessment: Anesthesia Plan Discussed and Chart Reviewed Final Anesthetic Review Family History of Problems with Anesthesia: No History of Problems with Anesthesia: No NPO: Yes ASA Class: II Final Preanesthetic Review: No Changes in Pt Med Stat, Meds/Allgs Chart Reviewed, Consent Obtained/Reviewed (electronic operator at bedside for translation) and Anes Risks/Benef Reviewed Patient Risk: Low Procedure Risk: Low Anesthetic Plan Anesthetic Plan: MAC: and Agree w/ Assess. and Plan Disposition: Standard PACU
[2024-03-19 13:32] VITALS: BP 133/73; PULSE 72; RESP 16; TEMP 36.6; O2SAT 98
[2024-03-19] MEDS: Lactated Ringers 1,000 ML 100 ML IVCONT (13:43)
--- NOTE | 2024-03-19 14:00 | P.OPN-COLO_ITS ---
Colonoscopy Operative Note Operative Note Date of Service: 03/19/24 Narrative: Operative Information Procedure Description: EGD, Colonoscopy Indication: dysphagia, colon screening Anesthesia: MAC FLEXIBLE TRANSORAL UPPER GASTROINTESTINAL ENDOSCOPY AND COLONOSCOPY PROCEDURE NOTE UPPER ENDOSCOPY Consent: Indications for the procedure and potential complications of bleeding, perforation, reaction to medications and missed diagnosis were discussed with the patient and informed consent was obtained. Instrument: Olympus GIF H 190 J mid size upper endoscope Monitoring: Vital signs and clinical assessment, continuous EKG monitoring, Pulse oximetry, Carbon Dioxide monitoring and blood pressure monitoring were done throughout the procedure. Procedure: The patient was placed in the left lateral decubitis position and pre-procedure medications were administered and a bite block was placed. The endoscope was inserted into the mouth and advanced under direct vision to the third part of duodenum. A careful inspection was made as the upper endoscope was withdrawn including a retroflexed examination of the proximal stomach; Findings and interventions are described below. Findings: Larynx:normal Esophagus: GE junction at 35 cm, diaphragm hiatus at 35 cm, mild esophagitis, bx taken from GEJ, dsital and proximal esophagus, balloon dilation done to 18 mm at LES and UES-no tears seen Stomach: Patchy erythema and scarring with few erosions seen. Biopsies were obtained. Grade 2 flap valve on retroflexed examination of the cardia. Duodenum: Normal bulb and descending duodenum, Intervention: Biopsies as noted above, balloon dilation COLONOSCOPY Instrument: Olympus variable stiffness pediatric scope 190L Colonoscopy Monitoring: Vital signs and clinical assessment, continuous EKG monitoring, Pulse oximetry, Carbon Dioxide monitoring and blood pressure monitoring were done throughout the procedure. Colon withdrawal time was 10 minutes. Procedure: The patient was placed in the left lateral decubitis position and pre-procedure medications were administered. After a digital rectal examination of the ano-rectum, the video colonoscope was inserted into the rectum and advanced through the colon to the cecum/TI. The colonoscope was slowly withdrawn in a retrograde panoramic fashion and the colon mucosa was carefully examined including a retroflexed view of the rectum. Findings and interventions are described below. Procedure Difficulty:moderate Findings: Terminal Ileum-not intubated due to looping melanosis coli noted Cecum:normal Right sided retroflexion- normal Ascending Colon: normal Transverse Colon -normal Descending Colon:normal Sigmoid Colon: normal Rectum: Retroflexion with small internal hemorrhoids, grade I Anorectum - normal Colon preparation: [place] Bowel Preparation Scale Right colon; 2 Transverse colon: 2 Left colon; 2 (0 = Unprepared colon segment with mucosa not seen due to solid stool that cannot be cleared. 1 = Portion of mucosa of the colon segment seen, but other areas of the colon segment not well seen due to staining, residual stool and/or opaque liquid. 2 = Minor amount of residual staining, small fragments of stool and/or opaque liquid, but mucosa of colon segment seen well. 3 = Entire mucosa of colon segment seen well with no residual staining, small fragments of stool or opaque liquid) Impression and Post Procedure Diagnosis: Endoscopy Findings: mild esophagitis gastritis Colonoscopy Findings: melanosis coli internal hemorrhoids Plan: Await Pathology results Repeat Colonoscopy in 5 years due to some areas with fair prep or earlier if clinically indicated High fiber diet leaflet avoid straining at stool, epsom salts and sitz bath, anusol supps or cream if H pylori pos then treat Above findings were reviewed with the patient and relevant handouts were provided if indicated.
[2024-03-19 14:25] VITALS: BP 124/63; PULSE 71; RESP 16; TEMP 36.9; O2SAT 99
[2024-03-19 14:40] VITALS: BP 113/50; PULSE 70; RESP 16; TEMP 36.6; O2SAT 98
== END 2024-03-19 15:07 | disposition home or self-care (01) ==
PROVIDERS: PCP Internal Medicine; Visit Provider Internal Medicine Gastroenterology
PROC: (CPT 45378; principal; 2024-03-19 14:10)
DX: Z12.11 Encounter for screening for malignant neoplasm of colon (principal); Z86.0101 Personal history of adenomatous and serrated colon polyps; Z83.719 Family history of colon polyps, unspecified; K63.89 Other specified diseases of intestine; K64.0 First degree hemorrhoids; R13.10 Dysphagia, unspecified; K29.50 Unspecified chronic gastritis without bleeding; K44.9 Diaphragmatic hernia without obstruction or gangrene; K20.80 Other esophagitis without bleeding; K59.89 Other specified functional intestinal disorders; M25.50 Pain in unspecified joint; E55.9 Vitamin D deficiency, unspecified; Z85.3 Personal history of malignant neoplasm of breast; L29.89 Other pruritus; L50.9 Urticaria, unspecified; L21.0 Seborrhea capitis; Z79.899 Other long term (current) drug therapy; Z88.8 Allergy status to other drugs, medicaments and biological substances; Z98.890 Other specified postprocedural states
CPT/HCPCS: 45378; 43249; 43239; 88305; 88313; 88342; C1726; J2003; J2704

== ENCOUNTER → 2024-03-19 12:02 | Outpatient (BNV) | payer OTHER, SELFPAY | PROVIDERS: PCP Internal Medicine; Visit Provider Internal Medicine Gastroenterology | DX: Z12.11 Encounter for screening for malignant neoplasm of colon (principal); K63.89 Other specified diseases of intestine; K64.0 First degree hemorrhoids; R13.10 Dysphagia, unspecified; K20.90 Esophagitis, unspecified without bleeding; K29.70 Gastritis, unspecified, without bleeding | CPT/HCPCS: 43239; 43249; 45378 ==

== ENCOUNTER 2024-04-05 11:44 | Outpatient (AMB) | payer OTHER, SELFPAY ==
--- NOTE | 2024-04-05 11:57 | AM.OFFWIN_ITS ---
Intake Vital Signs 04/05/24 12:01 Weight 117 lb BP 120/82 Blood Pressure Location Lt brachial Position Sitting Pulse 80 Pulse Source Pulse Oximeter Pulse Oximetry (%) 100 Oxygen Delivery Method Room Air Intake Visit Reasons: EP sore throat, vomiting, nauseaus Intake Note: Patient here for gum sensitivity, vomiting, nausea, gums are peeling, tongue weird sensation which has been going on for about 1 week. she states she recently had an endoscopy. Patient Tobacco Use Status: Never used Tobacco Allergies Sulfa (Sulfonamide Antibiotics) Allergy (Severe, Verified 04/05/24 12:04) Itching codeine [CODEINE] Allergy (Intermediate, Verified 04/05/24 12:04) ITCHING hydroxychloroquine [From PLAQUENIL] Allergy (Intermediate, Verified 04/05/24 1 2:04) VOMITING morphine [MORPHINE] Allergy (Intermediate, Verified 04/05/24 12:04) ITCHING Estrogens Allergy (Mild, Verified 04/05/24 12:04) Unknown levothyroxine sodium Allergy (Unknown, Verified 04/05/24 12:04) rash,throat closes prednisone Allergy (Unknown, Verified 04/05/24 12:04) Unknown Corticosteroids (Glucocorticoids) [CORTICOSTEROIDS (GLUCOCORTICOIDS)] Adverse Reaction (Severe, Verified 04/05/24 12:04) DIFFICULTY BREATHING escitalopram [From Lexapro] Adverse Reaction (Severe, Verified 04/05/24 12:04) seizure meloxicam Adverse Reaction (Severe, Verified 04/05/24 12:04) Gastrointestinal Upset tadalafil [From Cialis] Adverse Reaction (Intermediate, Verified 04/05/24 12:04) Nausea and Vomiting acetaminophen [Percocet] Adverse Reaction (Unknown, Verified 04/05/24 12:04) Unknown duloxetine Adverse Reaction (Unknown, Verified 04/05/24 12:04) Unknown Do you need a note to return to daycare/school/sports/work: No HPI HPI Comments History of Present Illness Details History of Present Illness The patient is a 58-year-old female presenting with oral discomfort and swallowing difficulties post-upper endoscopy. Approximately one week ago, she underwent an upper endoscopy to investigate swallowing issues. The procedure revealed esophagitis. Since then, she has experienced sensitive gums, a peeling sensation, an unusual coating on her tongue, and nausea with episodes of vomiting, most recently occurring last night. These symptoms have impeded her ability to eat, as her throat also causes her pain and discomfort in swallowing. She reports the presence of headaches associated with the symptoms. Treatments tried include sulfram for nausea, which has been ineffective. Upon examination, oral candidiasis was suspected as there is a white coating in the oral cavity, indicative of thrush. The patient denies cough, respiratory distress, or signs of infection such as fever. Her medical history is notable for episodes of blood pressure elevation, with recent spikes to 167/139, lasting 3-4 hours. Normally, she reports having low blood pressure but notes her discomfort with these episodes as it feels like her heart is racing. Regular monitoring shows her blood pressure normalizes thereafter. Physical Exam General: Cooperative, healthy appearing, comfortable, no acute distress and well developed Orientation: Patient oriented x3 Limitations: Yi speaking Head: Normal to inspection mouth: erythematous mucosa with white spots and small white patches Ears: Hearing grossly normal bilaterally Nose: Normal external nose present Face and sinus: Normal facial exam Eyes: Appearance normal, both eyes and all related structures Neck: Normal visual inspection and Yes full ROM Respiratory: Normal respiratory effort and able to speak in complete sentences. Skin: No rashes or lesions noted Neuro: Patient oriented x3 Extremities: Normal to inspection [facility] Medical History (Updated 04/05/24 @ 12:35 by Hedy Cerda PA-C) Chronic pruritus Urticaria Vitamin D deficiency Polyarthralgia Small bowel motility disorder Dry mouth and eyes Seborrhea capitis in adult Bilateral sciatica Urinary frequency Abdominal pannus Positive sm/[employer] antibody Family history of polyps in the colon Fracture of neck of left humerus Humeral head fracture Chronic gastritis Insomnia Hypothyroidism Seropositive rheumatoid arthritis Leukopenia Gingivitis History of breast cancer Estrogen receptor positive status [ER+] Ductal carcinoma in situ (DCIS) of left breast Autoimmune disorder PTSD (post-traumatic stress disorder) COVID-19 Bilateral knee pain Fibromyalgia Schatzki's ring Rheumatoid arthritis Small bowel motility disorder Osteoporosis Raynaud's disease without gangrene Bipolar depression Anxiety Primary insomnia Constipation Acquired hypothyroidism Systemic lupus erythematosus Left temporomandibular joint disorder, unspecified Surgical History Hx of abdominoplasty History of esophagogastroduodenoscopy (EGD) Hx of colonoscopy History of bilateral mastectomy History of total abdominal hysterectomy and bilateral salpingo-oophorectomy History of cholecystectomy History of tubal ligation History of section Family History Father Hypertension Prostate cancer Mother Breast cancer Hypertension Asthma Maternal Aunt Breast cancer Maternal Grandmother Colon cancer Maternal Aunt Breast cancer Social History Household Members: Children Household Members Other:: 2 daughters Housing: House Do you presently have visiting nurse or other home services: No Alcohol intake: never Patient Tobacco Use Status: Never used Tobacco e-Cigarette/Vaping Use: Never Used Second Hand Smoke Exposure: No Advance Directives Date on File: 08/12/20 service: No Current occupational status: disabled Sexual orientation: Straight/Heterosexual Cognitive needs: Yes (cane) Hearing needs: No Vision needs: Yes (Glasses) Female Reproductive History Menstrual Age of Menarche: 10 Review of Systems Const All systems reviewed & are unremarkable except as noted in HPI and below Physical Exam Vital Signs: Last Vital Signs Pulse 80 04/05/24 12:01 BP 120/82 04/05/24 12:01 Pulse Ox 100 04/05/24 12:01 Oxygen Delivery Method Room Air 04/05/24 12:01 Assessment & Plan Assessment & Plan (1) Oral pharyngeal candidiasis: Code(s): B37.0 - Candidal stomatitis Plan: Plan 1. Oral candidiasis thrush: - Recommend the use of magic mouthwash as needed for symptomatic relief without ingestion. Advise against using hydroxyzine due to possible QT prolongation. Prescribed oral fluconazole and recommended she take it for 1 week. If symptoms improve, advised we will do an EKG in 1 week to ensure the medication did not prolong her QT, last QT was 441 milliseconds on 07/26/2023. As long as her QT is still normal, we can prescribe it for another week. If her symptoms do not improve, recommended she follow up with her PCP. 2. Upper gastrointestinal esophagitis: - The management of esophagitis will continue with the GI specialist. Ensure the patient maintains adequate hydration and nutrition, suggesting liquids use through a straw if easier to swallow. 3. Hypertension: - Blood pressure spikes will be monitored. Advise seeking emergency care if symptoms such as dizziness, lightheadedness, or unresolved severe headaches occur. Ensure recording of any future blood pressure fluctuations for continued monitoring. Patient was informed and verbally consented to the use of an ambient scribe for clinic note documentation during this visit. Medications: New fluconazole (Diflucan) take 2 tablets on day one and 1 tablet daily for days 2-7 100 mg PO DAILY 8 tabs 0RF Magic Mouthwash Diphen/Nystat/Antacid 1:1:1 nystatin 100,000 unit/mL oral suspension 80 mL; diphenhydramine 12.5 mg/5 mL oral liquid 80 mL; aluminum-mag hydroxide-simethicone 400 mg-400 mg-40 mg/5 mL oral susp 80 mL; Per 240 mL 5 mL PO Q8H PRN 240 mL 0RF mouth pain Coding Level of Care Code Est Pt Level 4 (77240) Diagnoses Oral pharyngeal candidiasis B37.0
[2024-04-05 12:01] VITALS: BP 120/82; PULSE 80; O2SAT 100
== END 2024-04-05 12:55 | disposition home or self-care (01) ==
PROVIDERS: PCP Internal Medicine; Visit Provider Physician Assistant
DX: B37.0 Candidal stomatitis (principal)

== ENCOUNTER → 2024-04-05 11:44 | Outpatient (BNVA) | payer OTHER, SELFPAY | PROVIDERS: PCP Internal Medicine; Visit Provider Physician Assistant | DX: B37.0 Candidal stomatitis (principal) | CPT/HCPCS: 99212 ==

== ENCOUNTER 2024-04-10 12:38 | Outpatient (AMB) | payer OTHER, SELFPAY ==
[2024-04-10 13:26] VITALS: BP 126/82; PULSE 89; TEMP 36.6; O2SAT 99; BMI 20.7
--- NOTE | 2024-04-10 13:26 | MHC.OFFWIV ---
Intake Vital Signs 04/10/24 13:26 Height 5 ft 2 in Weight 113 lb 4 oz BMI 20.7 BP 126/82 Blood Pressure Location Lt brachial Position Sitting Pulse 89 Pulse Source Pulse Oximeter Temp 97.8 F Temp Source Temporal Artery Scan Pulse Oximetry (%) 99 Oxygen Delivery Method Room Air Intake Visit Reasons: EP re-eval/ekg Patient Tobacco Use Status: Never used Tobacco Allergies Sulfa (Sulfonamide Antibiotics) Allergy (Severe, Verified 04/10/24 13:29) Itching codeine [CODEINE] Allergy (Intermediate, Verified 04/10/24 13:29) ITCHING hydroxychloroquine [From PLAQUENIL] Allergy (Intermediate, Verified 04/10/24 13:29) VOMITING morphine [MORPHINE] Allergy (Intermediate, Verified 04/10/24 13:29) ITCHING Estrogens Allergy (Mild, Verified 04/10/24 13:29) Unknown levothyroxine sodium Allergy (Unknown, Verified 04/10/24 13:29) rash,throat closes prednisone Allergy (Unknown, Verified 04/10/24 13:29) Unknown Corticosteroids (Glucocorticoids) [CORTICOSTEROIDS (GLUCOCORTICOIDS)] Adverse Reaction (Severe, Verified 04/10/24 13:29) DIFFICULTY BREATHING escitalopram [From Lexapro] Adverse Reaction (Severe, Verified 04/10/24 13:29) seizure meloxicam Adverse Reaction (Severe, Verified 04/10/24 13:29) Gastrointestinal Upset tadalafil [From Cialis] Adverse Reaction (Intermediate, Verified 04/10/24 13:29) Nausea and Vomiting acetaminophen [Percocet] Adverse Reaction (Unknown, Verified 04/10/24 13:29) Unknown duloxetine Adverse Reaction (Unknown, Verified 04/10/24 13:29) Unknown HPI EP re-eval/ekg HPI Details This note is constructed using voice recognition software. While every effort has been made to ensure accuracy, harvesting supervisor errors may have been included. The patient is a 58 year old female who presents to the clinic today with request for EKG. Patient was last seen in the clinic on 04/05/2024 for oral candidiasis, which she was treated with fluconazole and magic mouthwash. She was advised if the symptoms were not resolve to return for evaluation including EKG due to risk of prolonged QT with use of fluconazole. She reports the symptoms have improved, however have not completely resolved, and the pain is worse on the side of her tongue, and the corners of her mouth. She denies fever, chills, difficulty swallowing. She feels the symptoms have improved since onset. [facility] Medical History (Updated 04/05/24 @ 12:35 by Hedy Cerda PA-C) Chronic pruritus Urticaria Vitamin D deficiency Polyarthralgia Small bowel motility disorder Dry mouth and eyes Seborrhea capitis in adult Bilateral sciatica Urinary frequency Abdominal pannus Positive sm/[employer] antibody Family history of polyps in the colon Fracture of neck of left humerus Humeral head fracture Chronic gastritis Insomnia Hypothyroidism Seropositive rheumatoid arthritis Leukopenia Gingivitis History of breast cancer Estrogen receptor positive status [ER+] Ductal carcinoma in situ (DCIS) of left breast Autoimmune disorder PTSD (post-traumatic stress disorder) COVID-19 Bilateral knee pain Fibromyalgia Schatzki's ring Rheumatoid arthritis Small bowel motility disorder Osteoporosis Raynaud's disease without gangrene Bipolar depression Anxiety Primary insomnia Constipation Acquired hypothyroidism Systemic lupus erythematosus Left temporomandibular joint disorder, unspecified Surgical History Hx of abdominoplasty History of esophagogastroduodenoscopy (EGD) Hx of colonoscopy History of bilateral mastectomy History of total abdominal hysterectomy and bilateral salpingo-oophorectomy History of cholecystectomy History of tubal ligation History of section Family History Father Hypertension Prostate cancer Mother Breast cancer Hypertension Asthma Maternal Aunt Breast cancer Maternal Grandmother Colon cancer Maternal Aunt Breast cancer Social History Household Members: Children Household Members Other:: 2 daughters Housing: House Do you presently have visiting nurse or other home services: No Alcohol intake: never Patient Tobacco Use Status: Never used Tobacco e-Cigarette/Vaping Use: Never Used Second Hand Smoke Exposure: No Advance Directives Date on File: 08/12/20 service: No Current occupational status: disabled Sexual orientation: Straight/Heterosexual Cognitive needs: Yes (cane) Hearing needs: No Vision needs: Yes (Glasses) Female Reproductive History Menstrual Age of Menarche: 10 Review of Systems Const All systems reviewed & are unremarkable except as noted in HPI and below Physical Exam Vital Signs: Last Vital Signs Temp 97.8 F 04/10/24 13:26 Pulse 89 04/10/24 13:26 BP 126/82 04/10/24 13:26 Pulse Ox 99 04/10/24 13:26 Oxygen Delivery Method Room Air 04/10/24 13:26 BMI result Body Mass Index 20.7 Const General: cooperative, healthy appearing, comfortable, no acute distress and well developed Orientation/consciousness: patient oriented x3 Limitations: no limitations HEENT Other: Patient is done with patches of erythema, with slight amount of white. No discharge, lesions, odor present Head: Yes normal to inspection Ears: hearing grossly normal bilaterally General nose exam: Normal external nose present Face and sinus: Yes normal facial exam Neck Neck: Yes normal visual inspection and Yes full ROM Resp Effort & Inspection: normal respiratory effort and able to speak in complete sentences Cardio Rate: regular rate Rhythm: regular rhythm Heart sounds: normal S1 and S2 Neuro General: patient oriented x3 Assessment & Plan Assessment & Plan (1) Oral pharyngeal candidiasis: Code(s): B37.0 - Candidal stomatitis Plan: Case discussed with previous provider. Previous notes reviewed. In office EKG with slight prolongation in QT, discussed with patient avoidance of use of fluconazole. Patient has had significant improvement since symptom onset, we will refill magic mouthwash. Advised follow up as needed with worsening or failure to resolve. Patient happy with plan of care. Plan See above for full details and plan. Orders: Orders AMB EKG-In Office Today B37.0 - Candidal stomatitis Medications: Refilled Magic Mouthwash Diphen/Nystat/Antacid 1:1:1 nystatin 100,000 unit/mL oral suspension 80 mL; diphenhydramine 12.5 mg/5 mL oral liquid 80 mL; aluminum-mag hydroxide-simethicone 400 mg-400 mg-40 mg/5 mL oral susp 80 mL; Per 240 mL 5 mL PO Q8H PRN 240 mL 0RF mouth pain Coding Level of Care Code Est Pt Level 4 (52000) Diagnoses Oral pharyngeal candidiasis B37.0
== END 2024-04-10 13:56 | disposition home or self-care (01) ==
PROVIDERS: PCP Internal Medicine; Visit Provider Registered Nurse
DX: B37.0 Candidal stomatitis (principal)

== ENCOUNTER → 2024-04-10 12:38 | Outpatient (BNVA) | payer OTHER, SELFPAY | PROVIDERS: PCP Internal Medicine; Visit Provider Registered Nurse | DX: B37.0 Candidal stomatitis (principal) | CPT/HCPCS: 99212 ==

== ENCOUNTER 2024-04-12 15:14 | Outpatient (AMB) | payer OTHER, SELFPAY ==
[2024-04-12 15:15] VITALS: BP 110/80; PULSE 83; O2SAT 95; BMI 20.1
--- NOTE | 2024-04-12 15:15 | A.OFFPC_ITS ---
Vital Signs 04/12/24 15:15 Height 5 ft 2 in Weight 110 lb 2 oz BMI 20.1 BP 110/80 Blood Pressure Location Lt brachial Position Sitting Pulse 83 Pulse Source Pulse Oximeter Pulse Oximetry (%) 95 Oxygen Delivery Method Room Air Intake Visit Reasons: heart rate is prolonging Torch Heater Required: No Accompanied by: Self / Same As Patient Allergies Sulfa (Sulfonamide Antibiotics) Allergy (Severe, Verified 04/12/24 15:16) Itching codeine [CODEINE] Allergy (Intermediate, Verified 04/12/24 15:16) ITCHING hydroxychloroquine [From PLAQUENIL] Allergy (Intermediate, Verified 04/12/24 15:16) VOMITING morphine [MORPHINE] Allergy (Intermediate, Verified 04/12/24 15:16) ITCHING Estrogens Allergy (Mild, Verified 04/12/24 15:16) Unknown levothyroxine sodium Allergy (Unknown, Verified 04/12/24 15:16) rash,throat closes prednisone Allergy (Unknown, Verified 04/12/24 15:16) Unknown Corticosteroids (Glucocorticoids) [CORTICOSTEROIDS (GLUCOCORTICOIDS)] Adverse Reaction (Severe, Verified 04/12/24 15:16) DIFFICULTY BREATHING escitalopram [From Lexapro] Adverse Reaction (Severe, Verified 04/12/24 15:16) seizure meloxicam Adverse Reaction (Severe, Verified 04/12/24 15:16) Gastrointestinal Upset tadalafil [From Cialis] Adverse Reaction (Intermediate, Verified 04/12/24 15:16) Nausea and Vomiting acetaminophen [Percocet] Adverse Reaction (Unknown, Verified 04/12/24 15:16) Unknown duloxetine Adverse Reaction (Unknown, Verified 04/12/24 15:16) Unknown Tobacco use date assessed: 04/12/24 Dental Screening Dental Screen Date: 04/12/24 Did you have a dental visit in the last 12 months?: Yes Did you have a dental problem in the last 6 months where you did not have access to dental care?: No Was dental information given to patient?: Patient has dentist HPI heart rate is prolonging HPI Details Patient comes in today for follow-up of a prolonged QT noted on her EKG done at the walk-in clinic a couple of days ago following treatment with oral fluconazole x1 week for oral thrush, which was diagnosed when she presented to the walk-in clinic for increasing sore throat and alteration of taste in her mouth about 1 week ago States that she was advised to see her PCP for further evaluation when her EKG done showed (+) QT prolongation Patient states that her previous throat and mouth symptoms have all mostly cleared up but she continues to notice excessive peeling on her lips and she is wondering if this is considered normal She denies any sore throat or fever and states that she has had no problems swallowing when she eats or drinks Reports that she continues to feel very fatigued often although this is not new for her and has been going on for the past few years now She denies any chest pains, no increased shortness of breath but she continues to experience on and off fluttering sensation/palpitation from her heart - would like to see Cardiology for further evaluation of these symptoms No nausea/vomiting, no abdominal pain No change in bowel habits noted [facility] Medical History (Updated 04/12/24 @ 15:48 by Chuck Davila MD) Chronic pruritus Urticaria Vitamin D deficiency Polyarthralgia Small bowel motility disorder Dry mouth and eyes Seborrhea capitis in adult Bilateral sciatica Urinary frequency Abdominal pannus 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 antibody Family history of polyps in the colon Fracture of neck of left humerus Humeral head fracture Chronic gastritis Insomnia Hypothyroidism Seropositive rheumatoid arthritis Leukopenia Gingivitis History of breast cancer Estrogen receptor positive status [ER+] Ductal carcinoma in situ (DCIS) of left breast Autoimmune disorder PTSD (post-traumatic stress disorder) COVID-19 Bilateral knee pain Fibromyalgia Schatzki's ring Rheumatoid arthritis Small bowel motility disorder Osteoporosis Raynaud's disease without gangrene Bipolar depression Anxiety Primary insomnia Constipation Acquired hypothyroidism Systemic lupus erythematosus Left temporomandibular joint disorder, unspecified Surgical History Hx of abdominoplasty History of esophagogastroduodenoscopy (EGD) Hx of colonoscopy History of bilateral mastectomy History of total abdominal hysterectomy and bilateral salpingo-oophorectomy History of cholecystectomy History of tubal ligation History of section Family History Father Hypertension Prostate cancer Mother Breast cancer Hypertension Asthma Maternal Aunt Breast cancer Maternal Grandmother Colon cancer Maternal Aunt Breast cancer Social History Household Members: Children Household Members Other:: 2 daughters Housing: House Do you presently have visiting nurse or other home services: No Alcohol intake: never Patient Tobacco Use Status: Never used Tobacco e-Cigarette/Vaping Use: Never Used Second Hand Smoke Exposure: No Advance Directives Date on File: 08/12/20 service: No Current occupational status: disabled Sexual orientation: Straight/Heterosexual Cognitive needs: Yes (cane) Hearing needs: No Vision needs: Yes (Glasses) Female Reproductive History Menstrual Age of Menarche: 10 Questionnaire PHQ-9 Over the last 2 weeks, how often have you been bothered by any of the following problems? 1. Little interest or pleasure in doing things: several days 2. Feeling down, depressed, or hopeless: several days 3. Trouble falling or staying asleep, or sleeping too much: several days 4. Feeling tired or having little energy: several days 5. Poor appetite or overeating: several days 6. Feeling bad about yourself - or that you are a failure or have let yourself or your family down: several days 7. Trouble concentrating on things, such as reading the newspaper or watching television: not at all 8. Moving or speaking so slowly that other people could have noticed. Or the opposite - being so fidgety or restless that you have been moving around a lot more than usual: not at all 9. Thoughts that you would be better off or of hurting yourself in some way: not at all Total score: 6 Depression Screening Interpretation: Positive Depression Screening Follow-up: Existing condition and In treatment Depression Screening Done: Yes 61998 - PHQ-9 Billing: Yes Source: Developed by Drs. Som Barrera, Stephy Taylor, Michele Li and colleagues, with an educational coleman from [employer]. Thrive Questionnaire Date Thrive assessed: 04/12/24 I am a: Patient What is your living situation today?: I have a steady place to live Within the past 12 months, did the food you bought not last and you didn't have the money to get more?: Never true Within the past 12 months, did you worry whether your food would run out before you got money to buy more?: Never true Do you have trouble paying for medicines?: No Do you have trouble getting transportation to medical appointments?: No Do you have trouble paying your heating and electricity bill?: No Do you have trouble taking care of your child, family member or friend?: No Do you have trouble with day-to-day activities such as bathing, preparing meals, shopping, managing finances, etc.?: No Are you currently unemployed and looking for a job?: No Are you interested in more education?: No Please select the resources that you would like help with: None Currently or been in a relationship where the following occur: No concerns reported THRIVE Score: 0 AUDIT C Alcohol Use Questionnaire (AUDIT-C) 1. How often do you have a drink containing alcohol?: Never 3. How often do you have six or more drinks on one occasion?: Never Total Score: 0 Score Reviewed/Action Taken: Yes MOSHE-7 AMB Questionnaire MOSHE-7 Date MOSHE - 7 assessed: 04/12/24 Feeling nervous, anxious, or on edge: 1 = Several days (on medication) Not being able to stop or control worryin = Not at all Worrying too much about different things: 0 = Not at all Trouble relaxin = Not at all Being so restless that it is hard to sit still: 0 = Not at all Becoming easily annoyed or irritable: 0 = Not at all Feeling afraid as if something awful might happen: 0 = Not at all Total MOSHE-7 score (0-4 normal; 5-9 mild; 10-14 moderate; 15-21 severe): 1 Source: Developed by Drs. Som Barrera, Stephy Taylor, Michele Li and colleagues, with an educational coleman from [employer]. Review of Systems Const Reports body aches (diffuse), Denies chills, Reports fatigue (chronic), Denies fever(s) and Denies headache(s) ENT Denies dysphagia, Denies dizziness, Denies otalgia, Denies headache(s), Reports neck pain (chronic), Denies odynophagia and Denies sore throat Card Denies chest pain, Reports irregular heart rhythm (c/o on and off sensations of flutterring or palpitations of her heart), Denies palpitations and Reports dyspnea on exertion (mild, chronic) Resp Denies chest congestion, Denies cough, Reports dyspnea on exertion (mild, chronic) and Denies wheezing GI Denies abdominal pain, Reports constipation (Rx helping), Denies dysphagia, Denies heartburn, Denies diarrhea, Denies nausea, Denies odynophagia and Denies vomiting Denies hematuria, Reports nocturia, Denies dysuria and Denies urinary urgency Musc Reports back pain (over the lower back, on and off; also over both shoulder areas ), Reports arthralgias (involving multiple joints, especially both shoulders/scapular areas) and Reports neck pain (chronic) Skin/Breast Denies rash Neuro Denies dizziness and Denies headache(s) Psych Reports anxiety Endo Reports fatigue (chronic) and Denies palpitations Aller/Immun Denies wheezing Physical exam (Primary Care) Vital Signs: Last Vital Signs Pulse 83 04/12/24 15:15 BP 110/80 04/12/24 15:15 Pulse Ox 95 04/12/24 15:15 Oxygen Delivery Method Room Air 04/12/24 15:15 BMI result Body Mass Index 20.1 Tobacco/Smoking Status: Tobacco use Status Tobacco use date assessed 04/12/24 04/12/24 15:21 Patient Tobacco Use Status Never used Tobacco 04/12/24 15:21 e-Cigarette/Vaping Use Never Used 04/12/24 15:21 PHQ-9: PHQ-9 Score PHQ-9: Total score 6 04/12/24 15:53 Depression Screening Interpretation: Positive Depression Screening Follow-up: Existing condition and In treatment Thrive Assessment: Date of Thrive Assessment Date Thrive assessed 04/12/24 04/12/24 15:21 Currently or been in a relationship where the following occur: No concerns reported Const General: no acute distress and alert HENMT Ears: TM's normal bilaterally and EAC's normal Throat: Yes posterior oropharynx normal and Yes tonsils normal Neck Neck: No lymphadenopathy and Yes tender (over the cervical spine and paraspinal areas bilaterally) Thyroid: Thyroid normal Resp Auscultation: clear to auscultation bilaterally, no rales and no wheezes Cardio Rate: regular rate Rhythm: regular rhythm Heart sounds: no murmurs GI Palpation (GI): Soft to palpation and nontender Auscultation: normal bowel sounds General: Yes no CVA tenderness Back/Spine/Pelvis Back: no CVA tenderness Thoracic/Lumbar Spine: paraspinal muscle tenderness bilaterally (over the cervical and thoracolumbar spine (diffuse)) and lumbar spinal tenderness Skin Rashes: no rashes Extrem General: Yes no clubbing, cyanosis or edema Right upper extremity: shoulder/upper arm Details: tenderness (diffusely over the scapular area) Left upper extremity: shoulder/upper arm Details: tenderness (diffusely over the scapular areas) Coding Level of Care Code Est Pt Level 3 (37544) Diagnoses Prolonged Q-T interval on ECG R94.31 Anxiety F41.9 Bipolar depression F31.9 Additional Codes PHQ-9 - 51729 - PHQ-9 Billing: Yes ([id number]) Assessment & Plan Assessment & Plan (1) Prolonged Q-T interval on ECG: Code(s): R94.31 - Abnormal electrocardiogram [ECG] [EKG] Category: Medical Plan: This is most likely due to her recent treatment with oral fluconazole for a week Have advised patient that one would normally not experience any evident symptoms in prolonged QT so her recurrent sensations of chest pains and fluttering are not related to this condition Will just have her recheck her EKG in 1 week for follow-up as it usually takes about 6 days for fluconazole to clear out completely from her system Per request, will refer her to Cardiology as well for further evaluation and management of her recurrent dyspnea and palpitations/fluttering (2) Anxiety: Code(s): F41.9 - Anxiety disorder, unspecified Category: Medical Plan: Continue Clonazepam 1 mg BID PRN (3) Bipolar depression: Code(s): F31.9 - Bipolar disorder, unspecified Category: Medical Plan: Continue Bupropion XL 150 mg QOD Follow-up with Psychiatry as scheduled Plan Follow up as scheduled in June 2024 Orders: Orders ECG 12 lead EKG 04/18/24 R94.31 - Abnormal electrocardiogram [ECG] [EKG] Referrals Cardiology Referral R06.09 - Other forms of dyspnea, R42 - Dizziness and giddiness
== END 2024-04-12 16:31 | disposition home or self-care (01) ==
PROVIDERS: PCP Internal Medicine; Visit Provider Internal Medicine
DX: R94.31 Abnormal electrocardiogram [ECG] [EKG] (principal); F41.9 Anxiety disorder, unspecified; F31.9 Bipolar disorder, unspecified

== ENCOUNTER → 2024-04-12 15:14 | Outpatient (BNVA) | payer OTHER, SELFPAY | PROVIDERS: PCP Internal Medicine; Visit Provider Internal Medicine | DX: R94.31 Abnormal electrocardiogram [ECG] [EKG] (principal); F41.9 Anxiety disorder, unspecified; F31.9 Bipolar disorder, unspecified | CPT/HCPCS: 96127; 99212 ==

== ENCOUNTER → 2024-04-18 11:08 | Outpatient (REF) | payer OTHER, SELFPAY ==
--- NOTE | 2024-04-18 11:13 | ECG_ITS ---
Test Reason : abn ekg Blood Pressure : / mmHG Vent. Rate : 088 BPM Atrial Rate : 088 BPM P-R Int : 142 ms QRS Dur : 080 ms QT Int : 380 ms P-R-T Axes : 076 063 077 degrees QTc Int : 459 ms Normal sinus rhythm Normal ECG When compared with ECG of 26-JUL-2023 09:22, No significant change was found Referred By: Chuck Davila Electronically Signed By:ASIF GORDON
== END ==
LOC: HO.CARD 11:08
PROVIDERS: PCP Internal Medicine; Visit Provider Internal Medicine
DX: R94.31 Abnormal electrocardiogram [ECG] [EKG] (principal)
CPT/HCPCS: 93005

== ENCOUNTER → 2024-04-18 11:13 | Outpatient (BNV) | payer OTHER, SELFPAY | PROVIDERS: PCP Internal Medicine; Visit Provider Internal Medicine | DX: R94.31 Abnormal electrocardiogram [ECG] [EKG] (principal) | CPT/HCPCS: 93010 ==

== ENCOUNTER → 2024-04-18 13:00 | Outpatient (BNV) | payer OTHER, SELFPAY | PROVIDERS: PCP Internal Medicine; Referring Provider Internal Medicine; Visit Provider Internal Medicine | DX: D64.9 Anemia, unspecified (principal); Z85.3 Personal history of malignant neoplasm of breast; Z92.21 Personal history of antineoplastic chemotherapy; Z80.3 Family history of malignant neoplasm of breast | CPT/HCPCS: 99204; G2211 ==

== ENCOUNTER 2024-04-30 13:39 | Outpatient (AMB) | payer OTHER, SELFPAY ==
--- NOTE | 2024-04-30 13:45 | A.OFFVIS_ITS ---
Vital Signs 04/30/24 13:49 Height 5 ft 1.26 in Weight 117 lb 4.575 oz BMI 22.0 BP 100/70 Blood Pressure Location Lt brachial Position Sitting Pulse 81 Pulse Source Pulse Oximeter Intake Visit Reasons: F/u-osteoporosis Intake Note: Patient present today for Osteoporosis follow up. News Librarian Required: Yes News Librarian Language: Outside Parts Sales Services: News Librarian Offered & Declined News Librarian Name: Daughter will interpret Accompanied by: Daughter Allergies Sulfa (Sulfonamide Antibiotics) Allergy (Severe, Verified 04/30/24 13:51) Itching codeine [CODEINE] Allergy (Intermediate, Verified 04/30/24 13:51) ITCHING hydroxychloroquine [From PLAQUENIL] Allergy (Intermediate, Verified 04/30/24 13:51) VOMITING morphine [MORPHINE] Allergy (Intermediate, Verified 04/30/24 13:51) ITCHING Estrogens Allergy (Mild, Verified 04/30/24 13:51) Unknown levothyroxine sodium Allergy (Unknown, Verified 04/30/24 13:51) rash,throat closes prednisone Allergy (Unknown, Verified 04/30/24 13:51) Unknown Corticosteroids (Glucocorticoids) [CORTICOSTEROIDS (GLUCOCORTICOIDS)] Adverse Reaction (Severe, Verified 04/30/24 13:51) DIFFICULTY BREATHING escitalopram [From Lexapro] Adverse Reaction (Severe, Verified 04/30/24 13:51) seizure meloxicam Adverse Reaction (Severe, Verified 04/30/24 13:51) Gastrointestinal Upset tadalafil [From Cialis] Adverse Reaction (Intermediate, Verified 04/30/24 13:51) Nausea and Vomiting acetaminophen [Percocet] Adverse Reaction (Unknown, Verified 04/30/24 13:51) Unknown duloxetine Adverse Reaction (Unknown, Verified 04/30/24 13:51) Unknown fluconazole Adverse Reaction (Unknown, Verified 04/30/24 13:56) Itch, pain, HPI Comments Details: 56-year-old female, today for follow-up visit, for evaluation of hypothyroidism and osteoporosis . Recetly fell forward and fx humerus in 03/2021 Has a subsequent fx of L shoulder . Shoulder fx happened after waking up felt a pop. . DEXA showed nl bone density She was diagnosed with breast cancer in 2010 she spent 7 years on aromat ase inhibitors. No radiotherapy given. She took alendronate 70 mg weekly for 3 years. Medication was stopped the medication last year. She has lupus and rheumatoid arthritis she has never been on prednisone long-term she has adverse reactions to steroids. She has past medical history of breast cancer, SLE, rheumatoid arthritis, hypothyroidism, vitamin-D deficiency and depression, fibromyalgia. She denies prior fragilityb fractures, positive GERD on chronic PPI use, she has positive FH of osteoporosis in her mother, nephrolithiasis, never smoker, never on anti seizures medications. Bisphosphonates use: Alendronate 70 mg weekly since 2015. Stopped in May 2019. Calcium intake: 500 mg bid. Vitamin D: 100,000 international units weekly. Herbal medications. None. A complete secondary workup including workup for mastocytosis, Ely's, hypercalciuria, multiple myeloma was completely normal She reports she was diagnosed with hypothyroidism a 20 years ago. She has negative antibodies. She is currently on Synthroid 50 mcg daily. She reports she has been on the same dose for 20 years. She is 100% compliance with LT4, she takes Prilosec 1 hour after Synthroid. She has cold intolerance, she denies heat intolerance, she denies weigth loss or gain, is postmenopausal , denies diarrhea, positive constipation, positive imsomnia but results with treatment, positive fatigue, denies dry skin, denies dyspnea, dysphonia, tremors, palpitations, irritability, anxiety. She has a swallowing problem, she reports she has choking sensation with swallowing solid. She had normal EGD. The barium swallowing study was not completed due to choking with barium. Family History: Her sister has thyroid nodules. 03/13/19 US thyroid Right Thyroid Lobe: 4.4 x 1.3 x 1.3 cm, volume 3.4 mL. Parenchyma: The gland echotexture is homogeneous. Thyroid vascularity is increased. Left Thyroid Lobe: 3.7 x 1.0 x 1.3 cm, volume 2.5 mL. Parenchyma: The gland echotexture is homogeneous. Thyroid vascularity is increased. Isthmus: 0.3 cm in maximum AP dimension. RIGHT THYROID LOBE: There are 2 nodules seen. 1. Location: Mid/lower pole. Size: 0.1 x 0.1 x 0.2 cm. Nodule characteristics: Well-circumscribed hypoechoic cyst with a punctate echogenic focus. No calcification or intranodular flow. This has the appearance of a colloid cyst. 2. Location: Lower pole. Size: 0.2 x 0.1 x 0.2 cm. Nodule characteristics: Well-circumscribed anechoic simple cyst with no microcalcification or intranodular flow. ISTHMUS: No nodules. LEFT THYROID LOBE: No nodules. NODES: No lymphadenopathy is seen in the tissue surrounding the thyroid gland. Trended TSH from 5601-8454 range 0.39 to 2.44 mIU/mL. 05/02/2019 DEXA scan FINDINGS: AP SPINE L1-L4: BMD 1.118 g/cm2, Z-score 0.7, T-score -0.5, normal. LEFT FEMUR, NECK: BMD 0.958 g/cm2, Z-score 0.7, T-score -0.6, normal. LEFT FEMUR, TOTAL: BMD 1.017 g/cm2, Z-score 1.0, T-score 0.1, normal. Laboratory Tests 11/25/19 06/01/20 11:03 12:58 Sodium 143 Potassium 4.7 Creatinine 0.66 Estimated GFR > 60 Calcium 8.7 D Alkaline Phosphatase 40 Albumin 4.2 N-Telopeptide X-linked 18 25-OH Vitamin D Total 82.9 TSH 0.39 Free T4 1.22 currently on calcium and vitamin-D supplementation. 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 Family history of polyps in the colon Fracture of neck of left humerus Humeral head fracture Chronic gastritis Insomnia Hypothyroidism Seropositive rheumatoid arthritis Leukopenia Gingivitis History of breast cancer Estrogen receptor positive status [ER+] Ductal carcinoma in situ (DCIS) of left breast Autoimmune disorder PTSD (post-traumatic stress disorder) COVID-19 Bilateral knee pain Fibromyalgia Schatzki's ring Rheumatoid arthritis Small bowel motility disorder Osteoporosis Raynaud's disease without gangrene Bipolar depression Anxiety Primary insomnia Constipation Acquired hypothyroidism Systemic lupus erythematosus Left temporomandibular joint disorder, unspecified Surgical History Hx of abdominoplasty History of esophagogastroduodenoscopy (EGD) Hx of colonoscopy History of bilateral mastectomy History of total abdominal hysterectomy and bilateral salpingo-oophorectomy History of cholecystectomy History of tubal ligation History of section Family History Father Hypertension Prostate cancer Mother Breast cancer Hypertension Asthma Maternal Aunt Breast cancer Maternal Grandmother Colon cancer Maternal Aunt Breast cancer Social History (Updated 04/18/24 @ 13:13 by Alverto Shrestha) Household Members: Children Household Members Other:: 2 daughters Housing: House Do you presently have visiting nurse or other home services: No Alcohol intake: never Patient Tobacco Use Status: Never used Tobacco e-Cigarette/Vaping Use: Never Used Second Hand Smoke Exposure: No Advance Directives Date on File: 08/12/20 service: No Current occupational status: disabled Sexual orientation: Straight/Heterosexual Gender identity: Female Cognitive needs: Yes (cane) Hearing needs: No Vision needs: Yes (Glasses) Female Reproductive History Menstrual Age of Menarche: 10 Physical Exam Vital Signs: Last Vital Signs Pulse 81 04/30/24 13:49 BP 100/70 04/30/24 13:49 BMI result Body Mass Index 22.0 Assessment & Plan Assessment & Plan (1) Osteoporosis: Code(s): M81.0 - Age-related osteoporosis without current pathological fracture Category: Medical Qualifiers: Osteoporosis type: unspecified Presence of current pathological fracture: without current pathological fracture Qualified Code(s): M81.0 - Age- related osteoporosis without current pathological fracture Plan: Multiple risk factors for osteoporosis with normal DEXA and completed a course of multiple years of bisphosphonate with suppressed but treading upward NTX. She recently sustained a fragility fracture of the shoulder. Concurrently taking calcium and vitamin-D supplementation. F/U DeXA was nl . Ely syndrome, multiple myeloma and systemic mastocytosis and hypophosphatemia have been ruled out Plan is to continue calcium and vitamin-D supplementation. Will recheck DEXA and urine NTX and if elevated may consider using an anti resorptive agent like resumption of bisphosphonate or Prolia . I sent another referral for 2nd opinion to [facility] [place] [facility] Orders: Orders Collagen Crosslinks NTX Today M81.0 - Age-related osteoporosis without current pathological fracture XR DEXA axial skeleton Today M81.0 - Age-related osteoporosis without current pathological fracture Medications: Refilled Synthroid (levothyroxine) 50 mcg PO DAILY 90 days 90 tabs 1RF NS E03.9 - Hypothyroidism, unspecified Coding Level of Care Code Est Pt Level 3 (17424) Diagnoses Osteoporosis without current pathological fracture, unspecified osteoporosis type M81.0 Osteoporosis type: unspecified Presence of current pathological fracture: without current pathological fracture
[2024-04-30 13:49] VITALS: BP 100/70; PULSE 81; BMI 22.0
== END 2024-04-30 14:09 | disposition home or self-care (01) ==
PROVIDERS: PCP Internal Medicine; Visit Provider Internal Medicine Endocrinology, Diabetes & Metabolism
DX: M81.0 Age-related osteoporosis without current pathological fracture (principal)
CPT/HCPCS: 99213

== ENCOUNTER → 2024-04-30 13:39 | Outpatient (BNVA) | payer OTHER, SELFPAY | PROVIDERS: PCP Internal Medicine; Visit Provider Internal Medicine Endocrinology, Diabetes & Metabolism | DX: M81.0 Age-related osteoporosis without current pathological fracture (principal) | CPT/HCPCS: 99212 ==

== ENCOUNTER 2024-05-16 18:37 | Inpatient (IN) | payer OTHER, SELFPAY ==
--- NOTE | ~2024-05-16 | CT_ITS ---
EXAMINATION: CT HEAD WITHOUT CONTRAST CLINICAL INFORMATION: Unwitnessed fall with head strike. COMPARISON: None available. TECHNIQUE: Contiguous axial imaging was performed from the skull base to vertex without intravenous administration of contrast. This CT examination was performed using dose optimization techniques as appropriate, variously including the following: *Automated exposure control *Adjustment of mA and/or kV according to patient size (this includes techniques or standardized protocols for targeted exams where dose is matched to indication/reason for exam; i.e. extremities or head) *Use of iterative reconstruction technique DLP: 858 mGy/cm. FINDINGS: There is no acute intra-axial, extra-axial bleed, masses or midline shift. There is no acute infarction evolution. There is no edema. The zee to white matter differentiation is maintained normal. The lateral ventricles are symmetrical in size and configuration without enlargement. Bone windows reveal no calvarial abnormality. There is no scalp soft tissue abnormality. There is mild mucoperiosteal thickening right sphenoid and posterior ethmoid sinus. There is polyp or retention cyst in the left sphenoid sinus. CT/CT head/brain wo IV con IMPRESSION: No acute intracranial process seen. Electronically signed by: Augusto Ozuna MD 06/06/2024 07:10 AM BI
--- NOTE | ~2024-05-16 | CT_ITS ---
EXAMINATION: CT CERVICAL SPINE WITHOUT CONTRAST CLINICAL INFORMATION: Unwitnessed fall with head strike and neck pain COMPARISON: None available. TECHNIQUE: Axial 3 mm thin and reformatted 2 mm thin sagittal and coronal images of cervical spine were obtained without contrast. This CT examination was performed using dose optimization techniques as appropriate, variously including the following: *Automated exposure control *Adjustment of mA and/or kV according to patient size (this includes techniques or standardized protocols for targeted exams where dose is matched to indication/reason for exam; i.e. extremities or head) *Use of iterative reconstruction technique DLP: 858 FINDINGS: There is mild straightening of cervical lordosis. The vertebral heights, alignment and disc heights are normal. There is mild rotatory subluxation or spasm at the C1-C2 alignment. No visible acute fracture, dislocation or subluxation seen. The prevertebral and paravertebral soft tissues are normal. Lung apices are clear. The pharyngeal and tracheal airway appears widely patent. CT/CT cervical spine wo IV con IMPRESSION: Mild Rotary subluxation or spasm C1-C2 alignment. Otherwise no acute fracture or dislocation seen. Mild straightening of cervical lordosis likely spasm Fleischner guidelines were followed. Electronically signed by: Augusto Ozuna MD 06/06/2024 07:17 AM BI
--- NOTE | 2024-05-16 19:10 | ED.PSYCH ---
HPI - Psych General Chief Complaint: Psychiatric Symptoms Stated Complaint: SI , tried to OD 5 days ago Time Seen by Provider: 05/16/24 18:56 History of Present Illness ED Provider: Nas Arellano MD HPI Narrative: 58-year-old female with history of depression comes to the ED by ambulance after crisis and/or therapist over the phone had a meeting with her today and felt she was extremely depressed and suicidal. The patient endorses as suicidal intent and intentional overdose of her home medication she is unclear exactly how much she describes to me essentially pouring a few of the bottles into her hand she can not even estimated exactly how many tablets she took this was Monday, 5 he gets. She tells me she laid in bed all day felt dizzy. She did not vomit she denies losing consciousness or having other symptoms after taking his meds. Subsequent to this she has continued to feel suicidal but felt she would go back to taking her regular prescribed dosing of her medications yesterday. No acute medical complaints she has lupus underlying Related Data Home Medications ?Medication ?Instructions ?Recorded ?Confirmed clonazepam 1 mg tablet 1 mg PO TID Anxiety 08/27/22 05/17/24 trazodone 50 mg tablet 50 mg PO BEDTIME Insomnia 11/29/22 05/17/24 hydroxyzine HCl 25 mg tablet 25 mg PO TID 01/31/24 05/17/24 Synthroid 50 mcg PO DAILY 05/17/24 05/17/24 bisacodyl 5 mg tablet,delayed 10 mg PO BEDTIME PRN Constipation 05/17/24 05/17/24 release bupropion HCl 150 mg 24 hr tablet, 150 mg PO DAILY 05/17/24 05/17/24 extended release cimetidine 800 mg tablet 800 mg PO BID PRN Acid Reflux 05/17/24 05/17/24 cyclosporine 0.05 % eye drops in a 1 drp ophthalmic (eye) BID 05/17/24 05/17/24 dropperette (Restasis) dexlansoprazole 60 mg 60 mg PO DAILY PRN Acid Reflux 05/17/24 05/17/24 capsule,biphase delayed release (Dexilant) doxepin 10 mg capsule 10 mg PO BEDTIME PRN itch 05/17/24 05/17/24 lidocaine 5 % topical patch 1 patch topical DAILY 05/17/24 05/17/24 lifitegrast 5 % eye drops in a 1 drp ophthalmic (eye) BID 05/17/24 05/17/24 dropperette (Xiidra) ondansetron HCl 8 mg tablet 8 mg PO BEDTIME PRN Nausea 05/17/24 05/17/24 oxybutynin chloride 10 mg 10 mg PO DAILY PRN OVERACTIVE 05/17/24 05/17/24 tablet,extended release 24 hr BLADDER perfluorohexyloctane (PF) 100 % 1 drp ophthalmic (eye) TID 05/17/24 05/17/24 eye drops (Miebo (PF)) simethicone 180 mg capsule 180 mg PO QID PRN Abdominal 05/17/24 05/17/24 Distention Previous Rx's ?Medication ?Instructions ?Recorded gabapentin 300 mg capsule 300 mg PO TID #90 caps 02/16/24 Ventolin HFA 90 mcg/actuation 2 puff inhalation Q6H PRN for 03/06/24 aerosol inhaler (albuterol sulfate) wheezing #18 ea sumatriptan succinate 50 mg tablet See Rx Instructions PO .COMPLEX 03/15/24 #10 tabs cholecalciferol (vitamin D3) 50 50 mcg PO DAILY #90 caps 04/18/24 mcg (2,000 unit) capsule (Vitamin D3) diclofenac sodium 1 % topical gel 2 g topical QID #100 grams 04/19/24 Allergies Allergy/AdvReac Type Severity Reaction Status Date / Time Sulfa (Sulfonamide Allergy Severe Itching Verified 05/16/24 19:20 Antibiotics) codeine [CODEINE] Allergy Intermediate ITCHING Verified 05/16/24 19:20 hydroxychloroquine Allergy Intermediate VOMITING Verified 05/16/24 19:20 [From PLAQUENIL] morphine [MORPHINE] Allergy Intermediate ITCHING Verified 05/16/24 19:20 Estrogens Allergy Mild Unknown Verified 05/16/24 19:20 levothyroxine sodium Allergy Unknown rash,throat Verified 05/16/24 19:20 closes prednisone Allergy Unknown Unknown Verified 05/16/24 19:20 Corticosteroids AdvReac Severe DIFFICULTY Verified 05/16/24 19:20 (Glucocorticoids) BREATHING [CORTICOSTEROIDS (GLUCOCORTICOIDS)] escitalopram [From Lexapro] AdvReac Severe seizure Verified 05/16/24 19:20 meloxicam AdvReac Severe Gastrointestinal Verified 05/16/24 19:20 Upset tadalafil [From Cialis] AdvReac Intermediate Nausea and Verified 05/16/24 19:20 Vomiting acetaminophen [Percocet] AdvReac Unknown Unknown Verified 05/16/24 19:20 duloxetine AdvReac Unknown Unknown Verified 05/16/24 19:20 fluconazole AdvReac Unknown Itch, pain, Verified 05/16/24 19:20 PMFSH Past Medical History Medical History (Updated 05/18/24 @ 15:07 by Nas Arellano MD) Chronic pruritus Urticaria Vitamin D deficiency Polyarthralgia Small bowel motility disorder Dry mouth and eyes Seborrhea capitis in adult Bilateral sciatica Urinary frequency Abdominal pannus Positive sm/[employer] antibody Family history of polyps in the colon Fracture of neck of left humerus Humeral head fracture Chronic gastritis Insomnia Hypothyroidism Seropositive rheumatoid arthritis Leukopenia Gingivitis History of breast cancer Estrogen receptor positive status [ER+] Ductal carcinoma in situ (DCIS) of left breast Autoimmune disorder PTSD (post-traumatic stress disorder) COVID-19 Bilateral knee pain Fibromyalgia Schatzki's ring Rheumatoid arthritis Small bowel motility disorder Osteoporosis Raynaud's disease without gangrene Bipolar depression Anxiety Primary insomnia Constipation Acquired hypothyroidism Systemic lupus erythematosus Left temporomandibular joint disorder, unspecified Surgical History Hx of abdominoplasty History of esophagogastroduodenoscopy (EGD) Hx of colonoscopy History of bilateral mastectomy History of total abdominal hysterectomy and bilateral salpingo-oophorectomy History of cholecystectomy History of tubal ligation History of section Family History Family History Father Hypertension Prostate cancer Mother Breast cancer Hypertension Asthma Maternal Aunt Breast cancer Maternal Grandmother Colon cancer Maternal Aunt Breast cancer Social History Social History Household Members: Children Household Members Other:: 2 daughters Housing: House Do you presently have visiting nurse or other home services: No Alcohol intake: never Patient Tobacco Use Status: Never used Tobacco Smoked in Last 30 Days: No e-Cigarette/Vaping Use: Never Used Second Hand Smoke Exposure: No Use of substances other than those prescribed or required for medical reasons: No Advance Directives: Yes Advance Directives on File: Yes Advance Directives Date on File: 08/12/20 Do you have a plan to hurt others: No Plan Patient : No service: No Current occupational status: disabled Sexual orientation: Straight/Heterosexual Gender identity: Female Cognitive needs: Yes (cane) Hearing needs: No Vision needs: Yes (Glasses) Physical Exam Vital Signs: Vital Signs: Last Vital Signs Temp 98.0 F 05/18/24 06:00 Pulse 73 05/18/24 06:00 Resp 16 05/18/24 06:00 BP 111/63 05/18/24 06:00 Pulse Ox 98 05/18/24 06:00 O2 Del Method Room Air 05/18/24 06:00 BMI result Body Mass Index 18.9 Const: Other: EXAM: Gen: Alert, awake, well appearing, anxious, dry mouth, tearful and sad Head: Atraumatic Eyes: Anicteric, Normal conjunctiva. ENT: Dry mouth Neck: Supple. Respiratory: Breathing comfortably, No distress.Clear to auscultation bilaterally, symmetric chest expansion, No wheeze, rales, ronchi. Cardiovascular: Regular rate and rhythm. No murmurs or rub. Well perfused periphery, warm extremities. No edema. ? Abdominal: Soft, no objective distension. No palpable masses or obvious organomegaly. No focal tenderness, no guarding, no rebound tenderness or other peritoneal findings. : No flank tenderness. Neuro: Alert. Gross movement of all extremities intact. ? Psych home suicidal depressed, continues to have suicidal ideation feeling hopeless. Vital signs: See flowsheet Course Course Course Narrative: Physician observation continued. VS stable, no acute events overnight, IPLOC. will continue to monitor MARGARETTE 05/18/24 724am Medications Administered Generic Name Dose Route Start Last Admin Trade Name Freq PRN Reason Stop Dose Admin Bupropion HCl 150 mg 05/17/24 11:00 05/18/24 08:01 Bupropion Hcl Xl 150 Mg Tab.Er.24h PO 150 mg DAILY TINO Administration Clonazepam 1 mg 05/17/24 10:57 05/18/24 13:41 Clonazepam 1 Mg Tablet PO 1 mg TID PRN Administration Anxiety Famotidine 40 mg 05/17/24 21:00 05/18/24 08:00 Famotidine 20 Mg Tablet PO 40 mg BID TINO Administration Gabapentin 300 mg 05/17/24 15:00 05/18/24 08:03 Gabapentin 300 Mg Capsule PO 300 mg TID TINO Administration Pt Own (Lifitegrast 1 drop 05/17/24 21:00 05/18/24 08:01 [Xiidra] 5 % EYE-BOTH 1 drop Dropperette) BID TINO Administration Pt Own (Synthroid 50 mcg 05/17/24 12:00 05/18/24 06:07 50 Mcg Tablet) PO 50 mcg DAILY@0600 TINO Administration Trazodone HCl 50 mg 05/17/24 21:00 05/17/24 22:14 Trazodone Hcl 50 Mg Tablet PO 50 mg BEDTIME TINO Administration Vitamin D 50 mcg 05/18/24 09:00 05/18/24 08:00 Cholecalciferol (Vitamin D3) 25 Mcg Tablet PO 50 mcg DAILY TINO Administration Discontinued Medications Generic Name Dose Route Start Last Admin Trade Name Freq PRN Reason Stop Dose Admin Acetaminophen 975 mg 05/17/24 01:20 05/17/24 01:36 Acetaminophen 325 Mg Tablet PO 05/17/24 01:21 975 mg ONCE ONE Administration Lorazepam 1 mg 05/17/24 01:39 05/17/24 02:10 Lorazepam 1 Mg Tablet PO 05/17/24 01:40 1 mg ONCE ONE Administration Lorazepam 1 mg 05/17/24 14:34 05/17/24 14:40 Lorazepam 1 Mg Tablet PO 05/17/24 14:35 1 mg ONCE ONE Administration Non-Formulary Medication 2 gm 05/17/24 13:00 05/17/24 14:33 Diclofenac Sodium TOPICAL Not Given QID [facility] Non-Formulary Medication 180 mg 05/17/24 13:00 05/17/24 14:33 Simethicone PO Not Given QID [facility] Trazodone HCl 50 mg 05/17/24 01:39 05/17/24 02:10 Trazodone Hcl 50 Mg Tablet PO 05/17/24 01:40 50 mg ONCE ONE Administration Medical Decision Making Medical Decision Making MDM Narrative: [age] female with lupus, depression, suicidal ideation and polypharmacy overdose several days ago. Given the time delay since presentation and clinical examination unlikely to represent and current toxidrome/overdose we will get basic labs and ECG check QT given the underlying prolonged QT. needs crisis evaluation. After medical clearance PTs labs and ECG ok. No acute medical issues. Medically clear Crisis accepts pt for IPLOC. 12a signed. Lab Data 05/16/24 19:53 05/16/24 19:53 Labs: Lab Results 05/16/24 05/16/24 Range/Units 19: 19:53 WBC 4.2 L (4.8-10.8) X10*3/uL RBC 4.15 L (4.20-5.50) X10*6/uL Hgb 11.3 L (12.0-16.0) g/dl Hct 34.8 L (37.0-47.0) % MCV 83.9 (80.0-98.0) fL MCH 27.2 (27.0-33.0) pg MCHC 32.5 (31.0-35.0) g/dl RDW 14.6 (11.0-16.0) % Plt Count 211 (160-400) X10*3/uL MPV 10.3 (9.4-12.3) fL Immature Gran % (Auto) 0.2 (0.0-0.4) % Neut % (Auto) 55.5 (45-73) % Lymph % (Auto) 33.4 (20-40) % Ware % (Auto) 10.0 (2-11) % Eos % (Auto) 0.7 (0-4) % Baso % (Auto) 0.2 (0-2) % Lymph # (Auto) 1.4 (1.2-4.9) X10*3/uL [place] # (Auto) 0.4 (0.1-1.2) X10*3/uL Eos # (Auto) 0.0 (0.0-0.4) X10*3/uL Baso # (Auto) 0.0 (0.0-0.2) X10*3/uL Abs Immat Gran (auto) 0.01 (0.00-0.03) X10*3/uL Absolute Neuts (auto) 2.3 (2.0-8.3) x10*3/uL Absolute Nucleated RBC 0.000 (0.0-0.012) X10*3/uL Nucleated RBC % (auto) 0.0 (0.0-0.2) /100WBC Sodium 146 H (135-145) mmol/L Potassium 4.1 (3.3-5.1) mmol/L Chloride 112 H (96-108) mmol/L Carbon Dioxide 28 (22-29) mmol/L Anion Gap 10 L (12-20) BUN 11 (9-16) mg/dL Creatinine 0.63 (0.5-1.4) mg/dL Estim Creat Clear Calc 67.9 Estimated GFR > 60 Random Glucose 72 (60-115) mg/dL Calcium 9.0 (8.4-10.2) mg/dL Magnesium 2.1 (1.6-2.6) mg/dL Total Bilirubin 0.3 (0.0-1.0) mg/dL AST 22 (5-31) U/L ALT 20 (0-31) U/L Alkaline Phosphatase 57 (39-117) U/L Total Protein 7.1 (6.5-8.0) g/dL Albumin 3.9 (3.5-5.0) g/dL TSH 0.87 (0.32-4.0) uIU/mL Urine Color Yellow Urine Appearance Clear Urine pH 6.0 (5.0-9.0) Ur Specific [place] 1.015 (1.005-1.025) Urine Protein Negative (Neg-Trace) mg/dL Urine Glucose (UA) Negative (Negative) mg/dL Urine Ketones Negative (Negative) mg/dL Urine Blood Negative (Negative) Urine Nitrite Negative (Negative) Ur Leukocyte Esterase Negative (Negative) Salicylates < 5.0 L (15-30) mg/dL Urine Opiates Screen Not Detected (Not Detect) Ur Buprenorphine Scrn Not Detected (Not Detect) ng/mL Ur Oxycodone Screen Not Detected (Not Detect) ng/mL Urine Methadone Screen Not Detected (Not Detect) ng/mL Urine Fentanyl Screen Not Detected (Not Detect) Acetaminophen < 3 (<30) mcg/mL Ur Barbiturates Screen Not Detected (Not Detect) Ur Phencyclidine Scrn Not Detected (Not Detect) Ur Amphetamines Screen Not Detected (Not Detect) U Benzodiazepines Scrn Not Detected (Not Detect) Urine Cocaine Screen Not Detected (Not Detect) U Marijuana (THC) Screen Not Detected (Not Detect) Ethyl Alcohol < 10 mg/dL COVID-19 (FRANK) Negative (Negative) COVID-19 Clin Com See Note Independent Interpretation I performed an independent interpretation of an: EKG Independent Historian Clinical information obtained from an independent historian. History obtained from or confirmed by: EMS Chronic Conditions Patient?s care impacted by: Hypertension Discharge Plan Discharge Clinical Impression: Bipolar depression Patient Disposition: Admitted As Inpatient Interventions: Chaves-Suicide Risk Severity Scale Last Done: 05/18/24 06:44 Admission Worksheet (ED) Last Done: 05/18/24 14:52
[2024-05-16 19:13] VITALS: BP 150/76; BP 153/87; PULSE 42; PULSE 74; RESP 16; TEMP 37.1; O2SAT 97; BMI 18.9
--- NOTE | 2024-05-16 19:15 | ECG_ITS ---
Test Reason : OVERDOSE Blood Pressure : */* mmHG Vent. Rate : 69 BPM Atrial Rate : 69 BPM P-R Int : 158 ms QRS Dur : 132 ms QT Int : 458 ms P-R-T Axes : 67 -4 88 degrees QTcB Int : 490 ms Normal sinus rhythm Left bundle branch block Abnormal ECG When compared with ECG of 18-Apr-2024 11:12, Left bundle branch block is now Present Referred By: Nas Arellano Electronically Signed By: ALISA ADAMS MD
--- NOTE | 2024-05-16 19:38 | PC.NURSE ---
daughter relays that client cant take generic synthroid and that client has medication with her in a purple bag.
[2024-05-16 19:40] LABS: Appearance Urine Clear; Color Urine Yellow; Glucose Urine UA Negative (Negative); Leukocyte Esterase Urine Negative (Negative); Nitrite Urine Negative (Negative); Specific Gravity - Urine 1.015 (1.005-1.025); Urine Blood Negative (Negative); Urine Ketones Negative (Negative); Urine Protein Negative (Neg-Trace)
[2024-05-16 19:46] LABS: COVID-19 Test Negative (Negative); IDNOW Serial# 55D5AD1C
[2024-05-16 19:49] LABS: Amphetamine Screen Urine Not Detected (Not Detect); Barbiturates, Urine Not Detected (Not Detect); Benzodiazepines Screen Urine Not Detected (Not Detect); Buprenorphine Scr Not Detected (Not Detect); Cannabinoid Screen Urine Not Detected (Not Detect); Cocaine Screen Urine Not Detected (Not Detect); Fentanyl, urine Not Detected (Not Detect); Methadone Screen, Urine Not Detected (Not Detect); Opiate Screen Urine Not Detected (Not Detect); Oxycodone Screen Urine Not Detected (Not Detect); Phencyclidine Screen Urine Not Detected (Not Detect)
[2024-05-16 19:58] LABS: MANUAL DIFF FLAG NO
[2024-05-16 20:14] LABS: Acetaminophen LAB < 3 mcg/mL (<30); Salicylate < 5.0 mg/dL (15-30)
[2024-05-16 20:22] LABS: Alanine Aminotransferase 20 U/L (0-31); Albumin Level 3.9 g/dL (3.5-5.0); Alkaline Phosphatase 57 U/L (39-117); Anion Gap 10 (12-20); Aspartate Amino Transferase 22 U/L (5-31); Bilirubin Total 0.3 mg/dL (0.0-1.0); Blood Urea Nitrogen 11 mg/dL (9-16); Carbon Dioxide 28 mmol/L (22-29); Chloride 112 mmol/L (96-108); Creatinine Clr Calc Pharmacy 67.9; Estimated Glomerular Filt Rate > 60; Ethanol < 10 mg/dL; Glucose Random 72 mg/dL (60-115); Magnesium 2.1 mg/dL (1.6-2.6); Potassium 4.1 mmol/L (3.3-5.1); Sodium 146 mmol/L (135-145); Total Protein 7.1 g/dL (6.5-8.0)
[2024-05-16 20:34] LABS: Basophils Percent Auto 0.2 % (0-2); Eosinophils Percent Auto 0.7 % (0-4); Hematocrit 34.8 % (37.0-47.0); Hemoglobin 11.3 g/dl (12.0-16.0); Imm Gran Abs Auto 0.01 X10*3/uL (0.00-0.03); Imm Gran Pct Auto 0.2 % (0.0-0.4); Lymphocytes Absolute Auto 1.4 X10*3/uL (1.2-4.9); Lymphocytes Percent Auto 33.4 % (20-40); Mean Corpuscular HGB Conc 32.5 g/dl (31.0-35.0); Mean Corpuscular Hemoglobin 27.2 pg (27.0-33.0); Mean Corpuscular Volume 83.9 fL (80.0-98.0); Mean Platelet Volume 10.3 fL (9.4-12.3); Monocytes Absolute Auto 0.4 X10*3/uL (0.1-1.2); Neutrophils Absolute Auto 2.3 x10*3/uL (2.0-8.3); Neutrophils Percent Auto 55.5 % (45-73); Platelet Count 211 X10*3/uL (160-400); Red Blood Count 4.15 X10*6/uL (4.20-5.50); Red Cell Distribution Width 14.6 % (11.0-16.0); Thyroid Stimulating Hormone 0.87 uIU/mL (0.32-4.0); White Blood Count 4.2 X10*3/uL (4.8-10.8)
[2024-05-16 22:48] VITALS: BP 123/61; PULSE 72; RESP 20; TEMP 36.7; O2SAT 98
--- NOTE | 2024-05-16 23:22 | PC.NURSE ---
pt moved to [address]. sitter in place. pt is calm, drinking water
[2024-05-17 00:17] VITALS: BP 119/71; PULSE 63; RESP 18; TEMP 36.7; O2SAT 98
[2024-05-17] MEDS: Acetaminophen 325 MG TABLET 975 MG PO (01:36)
[2024-05-17] MEDS: traZODone HCL 50 MG TABLET PO ×2 (02:10→22:14)
[2024-05-17] MEDS: LORazepam 1 MG TABLET PO ×2 (02:10→14:40)
[2024-05-17 02:35] VITALS: RESP 16
--- NOTE | 2024-05-17 03:22 | PC.NURSE ---
pt received home dose of trazodone and clonazepam. pt currently sleeping with eyes closed in fowlers position with even, nonlabored respirations. sitter remains in place
--- NOTE | 2024-05-17 07:45 | PC.NURSE ---
patient was okayd to be in pod with compression sleeve on arm for breast CA. No 1:1 needed per CC Sixto
[2024-05-17 09:17] VITALS: BP 138/72; PULSE 67; RESP 14; TEMP 36.3; O2SAT 98
[2024-05-17] MEDS: clonazePAM 1 MG TABLET PO ×2 (11:23→21:25)
[2024-05-17] MEDS: SYNTHROID 50 MCG 50 EACH PO (11:39)
[2024-05-17] MEDS: buPROPion HCl XL 150 MG TAB.ER.24H PO (14:25)
--- NOTE | 2024-05-17 14:30 | PHA.MEDREC ---
Pharmacy Consult ? Medication Reconciliation Pharmacy has reviewed the medication reconciliation done by nursing and also spoke to patient and Deepti (daughter) at bedside. They confirmed patient is on multiple eye drops (Xiidra, Miebo and Restasis). Patient takes cimetidine, doxepin, simethicone, sumatriptan, ventolin, dexilant, bisacodyl, oxybutynin and ondansetron as PRN. She takes clonazepam and trazodone on SCHEDULED.
[2024-05-17] MEDS: Gabapentin 300 MG CAPSULE PO ×2 (14:57→21:25)
--- NOTE | 2024-05-17 18:08 | PC.NURSE ---
Patient has had uneventful day, ambulating around BH pod with steady gait, calm and cooperative, alert and oriented x4, reporting generalized sadness. Patient's medications were reviewed by pharmacy, all medications were ordered. patient has spent most of her day sleeping, daughter did come to visit for a bit. Daughter aware of plan of care for inpatient bedsearch. patient offers no complaints to this RN at this time. Now eating dinner
[2024-05-17] MEDS: LIFITEGRAST 5% 1 EACH EYE-BOTH (21:24)
[2024-05-17] MEDS: Famotidine 20 MG TABLET 40 MG PO (21:24)
[2024-05-17 21:43] VITALS: BP 131/68; PULSE 70; RESP 18; TEMP 36.8; O2SAT 97
[2024-05-18 06:00] VITALS: BP 111/63; PULSE 73; RESP 16; TEMP 36.7; O2SAT 98
[2024-05-18] MEDS: SYNTHROID 50 MCG 50 EACH PO (06:07)
[2024-05-18] MEDS: Cholecalciferol (Vitamin D3) 25 MCG TABLET 50 MCG PO (08:00)
[2024-05-18] MEDS: Famotidine 20 MG TABLET 40 MG PO ×2 (08:00→21:05)
[2024-05-18] MEDS: LIFITEGRAST 5% 1 EACH EYE-BOTH (08:01)
[2024-05-18] MEDS: buPROPion HCl XL 150 MG TAB.ER.24H PO (08:01)
[2024-05-18] MEDS: Gabapentin 300 MG CAPSULE PO ×3 (08:03→21:06)
[2024-05-18] MEDS: clonazePAM 1 MG TABLET PO ×3 (08:07→21:07)
--- NOTE | 2024-05-18 14:03 | PC.NURSE ---
Nurse to Nurse given to S1 RN.
--- NOTE | 2024-05-18 15:11 | PC.NURSE ---
new section 12 signed by care team prior to transfer upstairs. patient transported by 2 RN in wheelchair, with all belongings.
[2024-05-18 15:20] VITALS: BP 117/61; PULSE 81; RESP 18; TEMP 36.2; O2SAT 99
[2024-05-18 15:22] VITALS: BMI 21.4
[2024-05-18 16:10] LABS: Alanine Aminotransferase 14 U/L (0-31); Albumin Level 4.1 g/dL (3.5-5.0); Alkaline Phosphatase 62 U/L (39-117); Anion Gap 12 (12-20); Aspartate Amino Transferase 23 U/L (5-31); Bilirubin Total 0.4 mg/dL (0.0-1.0); Blood Urea Nitrogen 11 mg/dL (9-16); Calcium 9.2 mg/dL (8.4-10.2); Carbon Dioxide 26 mmol/L (22-29); Chloride 108 mmol/L (96-108); Creatinine Clr Calc Pharmacy 68.3; Estimated Glomerular Filt Rate > 60; Glucose Random 90 mg/dL (60-115); Potassium 3.4 mmol/L (3.3-5.1); Sodium 143 mmol/L (135-145); Total Protein 7.6 g/dL (6.5-8.0)
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
[2024-05-18 20:00] VITALS: BP 135/68; PULSE 79; RESP 18; TEMP 36.2; O2SAT 100
[2024-05-18] MEDS: traZODone HCL 50 MG TABLET PO ×2 (21:06→22:58)
[2024-05-19] MEDS: SYNTHROID 50 MCG 50 EACH PO (06:32)
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
[2024-05-19 08:23] LABS: Cholesterol 175 mg/dL (<200); HDL Cholesterol 64 mg/dL (>40); LDL Cholesterol Calculated 99 mg/dL (<100); Triglycerides 63 mg/dL (<150)
[2024-05-19 08:34] VITALS: BP 121/78; PULSE 81; RESP 18; TEMP 2.7; TEMP 36.9; O2SAT 99
[2024-05-19] MEDS: Gabapentin 300 MG CAPSULE PO ×3 (08:41→20:19)
[2024-05-19] MEDS: Cholecalciferol (Vitamin D3) 25 MCG TABLET 50 MCG PO (08:41)
[2024-05-19] MEDS: Famotidine 20 MG TABLET 40 MG PO ×2 (08:41→20:19)
[2024-05-19] MEDS: buPROPion HCl XL 150 MG TAB.ER.24H PO (08:41)
[2024-05-19] MEDS: LIFITEGRAST 5% 1 EACH EYE-BOTH ×2 (08:42→20:19)
[2024-05-19] MEDS: clonazePAM 1 MG TABLET PO ×3 (08:49→20:22)
[2024-05-19 20:00] VITALS: BP 134/63; PULSE 80; RESP 16; TEMP 36.6; O2SAT 100
[2024-05-19] MEDS: OLANZapine 2.5 MG TABLET PO (20:19)
[2024-05-19] MEDS: traZODone HCL 50 MG TABLET PO (20:19)
[2024-05-19] MEDS: hydrOXYzine HCL 25 MG TABLET PO (20:20)
[2024-05-20] MEDS: SYNTHROID 50 MCG 50 EACH PO (05:50)
[2024-05-20 08:00] VITALS: BP 122/60; PULSE 88; RESP 18; TEMP 36.8; O2SAT 98
[2024-05-20] MEDS: Cholecalciferol (Vitamin D3) 25 MCG TABLET 50 MCG PO (08:36)
[2024-05-20] MEDS: buPROPion HCl XL 150 MG TAB.ER.24H PO (08:37)
[2024-05-20] MEDS: Ondansetron ODT 4 MG TAB.RAPDIS TRANSLINGU (08:37)
[2024-05-20] MEDS: Famotidine 20 MG TABLET 40 MG PO ×2 (08:37→20:38)
[2024-05-20] MEDS: Gabapentin 300 MG CAPSULE PO ×3 (08:37→20:38)
[2024-05-20] MEDS: LIFITEGRAST 5% 1 EACH EYE-BOTH ×2 (08:49→20:45)
[2024-05-20] MEDS: clonazePAM 1 MG TABLET PO ×3 (08:50→20:39)
--- NOTE | 2024-05-20 12:21 | P.PNPSI_ITS ---
Subjective Subjective Date of Service: 05/20/24 Reason For Visit: SI Subjective Notes: Conditional Voluntary Interim History: The nursing staff reported the patient has verbalized suicidal ideation but she is able to contract for safety in the facility. Yesterday I started her on a low dose of olanzapine as a mood stabilizer. Today on interview the patient reported that she wants the Klonopin t.i.d. schedule since she had been taking that for years, she reports anxiety and dysphoria. Mental Status Exam Mental Status Exam Patient Appearance: Appropriate Patient Orientation: Person and Situation Level of Consciousness: Awake Patient Behavior: Guarded and Passive Mood Description: Withdrawn Affect Description: Constricted Patient Cognition Impaired: Yes Ability to Follow Directions: Good Speech Pattern: Clear Hallucinations: None Delusions: Paranoid Ideation and Ideas of Reference Thought Process: Distracted and Slowed Thinking Thought Content: positive for [place] and positive for Poverty of Content Judgement: Fair Diagnostics Vital Signs (24Hr): Vital Signs - 24 hr 05/19/24 20:00 05/20/24 08:00 Temperature 98 F 98.2 F Pulse Rate 80 88 Respiratory Rate 16 18 Blood Pressure 134/63 122/60 Pulse Oximetry 100 98 Oxygen Delivery Method Room Air Room Air BMI result Body Mass Index 21.4 Labs 05/16/24 19:53 05/18/24 15:34 Labs: Laboratory Results - last 48 hr 05/18/24 05/19/24 15:34 07:22 Sodium 143 Potassium 3.4 Chloride 108 Carbon Dioxide 26 Anion Gap 12 BUN 11 Creatinine 0.66 Estim Creat Clear Calc 68.3 Estimated GFR > 60 Random Glucose 90 Calcium 9.2 Total Bilirubin 0.4 AST 23 ALT 14 Alkaline Phosphatase 62 Total Protein 7.6 Albumin 4.1 Triglycerides 63 Cholesterol 175 LDL Cholesterol, Calc 99 HDL Cholesterol 64 Medications Medications Current Medications Al Hydroxide/Mg Hydroxide (Magnesium Hydrox/Alum Hydrox 30 Ml Oral.Susp) 30 ml PO Q6H PRN PRN Reason: Heartburn/Nausea Albuterol Sulfate (Albuterol Sulfate 90 Mcg 8 Gm Inhaler) 2 puff INHALE Q6H PRN PRN Reason: for wheezing Bupropion HCl (Bupropion Hcl Xl 150 Mg Tab.Er.24h) 150 mg PO DAILY [facility] Last Admin: 05/20/24 08:37 Dose: 150 mg Clonazepam (Clonazepam 1 Mg Tablet) 1 mg PO TID PRN PRN Reason: Anxiety Last Admin: 05/20/24 08:50 Dose: 1 mg Famotidine (Famotidine 20 Mg Tablet) 40 mg PO BID [facility] Last Admin: 05/20/24 08:37 Dose: 40 mg Gabapentin (Gabapentin 300 Mg Capsule) 300 mg PO TID [facility] Last Admin: 05/20/24 08:37 Dose: 300 mg Hydroxyzine HCl (Hydroxyzine Hcl 25 Mg Tablet) 25 mg PO Q6H PRN PRN Reason: Anxiety Last Admin: 05/19/24 20:20 Dose: 25 mg Magnesium Hydroxide (Milk Of Magnesia 30 Ml Oral.Susp) 30 ml PO DAILY PRN PRN Reason: Constipation Pt Own (Lifitegrast [Xiidra] 5 % Dropperette) 1 drop EYE-BOTH BID [facility] Last Admin: 05/20/24 08:49 Dose: 1 drop Non-Formulary Medication (Perfluorohexyloctane (Pf) [Miebo (Pf)]) 1 drop EYE- BOTH BID [facility] Pt Own (Synthroid (50 Mcg Tablet)) 50 mcg PO DAILY@0600 [facility] Last Admin: 05/20/24 05:50 Dose: 50 mcg Olanzapine (Olanzapine 2.5 Mg Tablet) 2.5 mg PO BEDTIME [facility] Last Admin: 05/19/24 20:19 Dose: 2.5 mg Ondansetron HCl (Ondansetron Odt 4 Mg Tab.Rapdis) 4 mg TRANSLINGU Q8H PRN PRN Reason: Nausea and Vomiting Last Admin: 05/20/24 08:37 Dose: 4 mg Simethicone (Simethicone 80 Mg Tab.Chew) 160 mg PO QID PRN PRN Reason: Gas Sumatriptan Succinate (Sumatriptan Succinate 50 Mg Tablet) 50 mg PO DAILY PRN PRN Reason: Migraine Headache Trazodone HCl (Trazodone Hcl 50 Mg Tablet) 50 mg PO BEDTIME [facility] Last Admin: 05/19/24 20:19 Dose: 50 mg Trazodone HCl (Trazodone Hcl 50 Mg Tablet) 50 mg PO BEDTIME MRX1 PRN PRN Reason: Insomnia Last Admin: 05/18/24 22:58 Dose: 50 mg Vitamin D (Cholecalciferol (Vitamin D3) 25 Mcg Tablet) 50 mcg PO DAILY [facility] Last Admin: 05/20/24 08:36 Dose: 50 mcg Allergies Allergies Allergy/AdvReac Type Severity Reaction Status Date / Time Sulfa (Sulfonamide Allergy Severe Itching Verified 05/16/24 19:20 Antibiotics) codeine [CODEINE] Allergy Intermediate ITCHING Verified 05/16/24 19:20 hydroxychloroquine Allergy Intermediate VOMITING Verified 05/16/24 19:20 [From PLAQUENIL] morphine [MORPHINE] Allergy Intermediate ITCHING Verified 05/16/24 19:20 Estrogens Allergy Mild Unknown Verified 05/16/24 19:20 levothyroxine sodium Allergy Unknown rash,throat Verified 05/16/24 19:20 closes prednisone Allergy Unknown Unknown Verified 05/16/24 19:20 Corticosteroids AdvReac Severe DIFFICULTY Verified 05/16/24 19:20 (Glucocorticoids) BREATHING [CORTICOSTEROIDS (GLUCOCORTICOIDS)] escitalopram [From Lexapro] AdvReac Severe seizure Verified 05/16/24 19:20 meloxicam AdvReac Severe Gastrointestinal Verified 05/16/24 19:20 Upset tadalafil [From Cialis] AdvReac Intermediate Nausea and Verified 05/16/24 19:20 Vomiting acetaminophen [Percocet] AdvReac Unknown Unknown Verified 05/16/24 19:20 duloxetine AdvReac Unknown Unknown Verified 05/16/24 19:20 fluconazole AdvReac Unknown Itch, pain, Verified 05/16/24 19:20 Assessment & Plan Assessment & Plan (1) Bipolar depression: Status: Acute Code(s): F31.9 - Bipolar disorder, unspecified (2) PTSD (post-traumatic stress disorder): Status: Acute Code(s): F43.10 - Post-traumatic stress disorder, unspecified Plan The patient is a middle-aged black female with a past history of bipolar disorder who had been depressed with suicidal ideation for the last weeks. The patient had been admitted before and she had had traumatic experiences in the past with signs and symptoms compatible with PTSD. The patient overdosed on medications a few days ago but so far she is medically cleared. Plan 1. 15 minute checks since the patient is able to contract for safety in the facility. 2. Gather more collateral information. 3. Continue with Wellbutrin as prescribed. 4. We will start a mood stabilizer in order to help her on her depression. Started on Zyprexa 2.5 p.o. q.h.s. on May 19. 5. Continue with medical workout. 6. Reassessment with results. Reason for continued inpatient stay Substantial Risk for: inability to function, rapid decompensation and med/psych decompensation Time Spent With Patient Time: Total time managing care of this patient today __20__ minutes.
[2024-05-20 20:00] VITALS: BP 123/57; PULSE 96; TEMP 37.7; O2SAT 97
[2024-05-20 20:38] VITALS: BP 123/57
[2024-05-20] MEDS: Prazosin HCL 1 MG CAPSULE PO (20:38)
[2024-05-20] MEDS: traZODone HCL 50 MG TABLET PO (20:39)
[2024-05-20] MEDS: OLANZapine 2.5 MG TABLET PO (20:39)
[2024-05-21] MEDS: SYNTHROID 50 MCG 50 EACH PO (05:30)
[2024-05-21] MEDS: SUMAtriptan succinate 50 MG TABLET PO (05:34)
[2024-05-21 08:00] VITALS: BP 93/56; PULSE 97; RESP 18; TEMP 36.8; O2SAT 97
[2024-05-21] MEDS: Cholecalciferol (Vitamin D3) 25 MCG TABLET 50 MCG PO (08:48)
[2024-05-21] MEDS: LIFITEGRAST 5% 1 EACH EYE-BOTH ×2 (08:48→20:05)
[2024-05-21] MEDS: buPROPion HCl XL 150 MG TAB.ER.24H PO (08:48)
[2024-05-21] MEDS: Famotidine 20 MG TABLET 40 MG PO ×2 (08:48→20:04)
[2024-05-21] MEDS: clonazePAM 1 MG TABLET PO ×3 (08:48→20:04)
[2024-05-21] MEDS: Gabapentin 300 MG CAPSULE PO ×3 (08:48→20:04)
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
[2024-05-21 17:20] VITALS: BP 100/59; PULSE 95; RESP 18; TEMP 36.7; O2SAT 97
--- NOTE | 2024-05-21 17:52 | PC.NURSE ---
Zara was eating dinner per [facility] she held hands up and and clutched at her throat, per [facility] she approached Zara, she reported that she appeared to be choking, she started to perform the heimlich maneuver. She reported that after the third thrust Iris spit out food and then saliva, HAND LEATHER TRIMMER was called. When automobile and property underwriter arrived Zara was sipping on water, she appeared tearful, was assessed by HAND LEATHER TRIMMER. VS obtained, she denied having pain, Tonio FENCE MAKER notified.
[2024-05-21 20:00] VITALS: BP 118/62; PULSE 77; RESP 16; TEMP 2.7; TEMP 36.9; O2SAT 97
[2024-05-21 20:04] VITALS: BP 118/62
[2024-05-21] MEDS: OLANZapine 2.5 MG TABLET PO (20:04)
[2024-05-21] MEDS: Prazosin HCL 1 MG CAPSULE PO (20:04)
[2024-05-21] MEDS: traZODone HCL 50 MG TABLET PO (20:05)
[2024-05-22] MEDS: SYNTHROID 50 MCG 50 EACH PO (06:21)
[2024-05-22 08:19] VITALS: BP 95/54; PULSE 85; RESP 15; TEMP 36.8; O2SAT 97
[2024-05-22] MEDS: Gabapentin 300 MG CAPSULE PO ×3 (08:21→20:51)
[2024-05-22] MEDS: Famotidine 20 MG TABLET 40 MG PO ×2 (08:21→20:52)
[2024-05-22] MEDS: clonazePAM 1 MG TABLET PO ×3 (08:21→20:52)
[2024-05-22] MEDS: Cholecalciferol (Vitamin D3) 25 MCG TABLET 50 MCG PO (08:21)
[2024-05-22] MEDS: buPROPion HCl XL 150 MG TAB.ER.24H PO (08:21)
[2024-05-22] MEDS: LIFITEGRAST 5% 1 EACH EYE-BOTH ×2 (08:29→20:48)
--- NOTE | 2024-05-22 09:52 | PC.NURSE ---
Pt was seen by speech for a swallow evaluation, due to choking at meal time yesterday, and requiring the Heimlich maneuver. Speech is recommending that pt be seen by ENT due to several other complaints (please see report for specific information). This tech writer texted Dr Zuluaga via [employer], and send recommendations to him. Answer/action pending.
--- NOTE | 2024-05-22 10:16 | MHC.SL.SWA ---
Speech Pathologist Impression: Adequate oropharyngeal coordination; pt c/o pain on swallow, hx of nasal and oral regurgitation, changes to her voice, and dry mouth Risk of Aspiration Due to: Weak Voice Dysphasia Diet Status: Hx of difficulty with swallowing reported by pt, nasopharyngeal involvement endorsed[facility] for more comprehensive assessment of pathology Liquid Consistency and Strategies for Safe Swallow: Liquid Intake Recommendation: Thin Liquid Intake Strategies: Unrestricted Solid Food Consistency: Dietary Recommendations: Regular Additional Modifications to Solid Foods: Oral Medication Intake: Whole with Liquid Please contact the pharmacy regarding appropriate crushable or liquid drug formulations that are available whenever modified delivery is recommended. Compensatory Strategies and Precautions to be Taken for Safe Swallow: Sitting Upright (90 deg) Double Swallow Small Bites and Sips Alternate Liquids/Solids Supervision While Eating and Drinking for Safe Swallow: Intermittent Supervision Foods to Avoid: Swallowing Recommended Treatments: Compens. Strategy Educat. Recommendation for Speech: Further Testing Needed Inpatient Speech Therapy Comment: Pt is Vegan Frequency/Duration: Daily M-F Date Range for Service Req: Timeline to reassess: Technology Advisor Clinican/Clinical Fellow: No Supervisory Statement: I have reviewed and agree with the student/clinical fellow's documentation: N/A Speech Language Pathologist: Bety Back M.S., CCC-LEAD BURNER SUPERVISOR
[2024-05-22] MEDS: Ondansetron ODT 4 MG TAB.RAPDIS TRANSLINGU (11:24)
[2024-05-22] MEDS: Simethicone 80 MG TAB.CHEW 160 MG PO (11:24)
--- NOTE | 2024-05-22 11:35 | PC.NURSE ---
Pt c/o nasea and gas. VSS. Dr Zuluaga made aware via [employer] connect-response/action pending. Shannen and Alex provided.
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
[2024-05-22 20:00] VITALS: BP 124/68; PULSE 81; RESP 16; TEMP 36.8; O2SAT 100
[2024-05-22 20:51] VITALS: BP 124/68
[2024-05-22] MEDS: Prazosin HCL 1 MG CAPSULE PO (20:51)
[2024-05-22] MEDS: traZODone HCL 50 MG TABLET PO (20:52)
[2024-05-22] MEDS: lamoTRIgine 25 MG TABLET PO (20:52)
[2024-05-22] MEDS: OLANZapine 2.5 MG TABLET PO (20:52)
[2024-05-23] MEDS: SYNTHROID 50 MCG 50 EACH PO (06:05)
[2024-05-23 09:21] VITALS: BP 106/56; PULSE 95; RESP 18; TEMP 36.6; O2SAT 98
[2024-05-23] MEDS: Cholecalciferol (Vitamin D3) 25 MCG TABLET 50 MCG PO (09:24)
[2024-05-23] MEDS: Milk of Magnesia 30 ML ORAL.SUSP PO (09:24)
[2024-05-23] MEDS: Gabapentin 300 MG CAPSULE PO ×3 (09:25→20:23)
[2024-05-23] MEDS: buPROPion HCl XL 150 MG TAB.ER.24H PO (09:25)
[2024-05-23] MEDS: clonazePAM 1 MG TABLET PO ×3 (09:25→20:23)
[2024-05-23] MEDS: Famotidine 20 MG TABLET 40 MG PO ×2 (09:25→20:22)
[2024-05-23] MEDS: LIFITEGRAST 5% 1 EACH EYE-BOTH ×2 (10:00→20:31)
--- NOTE | 2024-05-23 13:37 | PC.NURSE ---
I asked patient about NF eye medication Miebo and she stated that she does not have it at home because it has not been delivered yet. When it does come in, her daughter will bring it in.
[2024-05-23 16:05] VITALS: BMI 21.4
--- NOTE | 2024-05-23 16:05 | P.PNPSI_ITS ---
Subjective Subjective Date of Service: 05/23/24 Reason For Visit: SI Subjective Notes: Conditional Voluntary Interim History: The nursing staff reported the patient has some nausea and received Zofran. The occupational therapist will do a [place] in Amharic today. On interview the patient reports that she still dysphoric she agreed to continue with Lamictal. Mental Status Exam Mental Status Exam Patient Appearance: Well Grooomed Patient Orientation: Person and Situation Level of Consciousness: Awake Patient Behavior: Guarded and Passive Mood Description: Withdrawn Affect Description: Constricted Patient Cognition Impaired: Yes Ability to Follow Directions: Good Speech Pattern: Clear Hallucinations: None Delusions: Not Present Thought Process: Distracted and Slowed Thinking Thought Content: positive for [place] and positive for Poverty of Content Judgement: Fair Diagnostics Vital Signs (24Hr): Vital Signs - 24 hr 05/22/24 20:00 05/22/24 20:51 05/23/24 09:21 Temperature 98.2 F 97.9 F Pulse Rate 81 95 Respiratory Rate 16 18 Blood Pressure 124/68 124/68 106/56 L Pulse Oximetry 100 98 Oxygen Delivery Method Room Air Room Air BMI result Body Mass Index 21.4 Labs 05/16/24 19:53 05/18/24 15:34 Medications Medications Current Medications Al Hydroxide/Mg Hydroxide (Magnesium Hydrox/Alum Hydrox 30 Ml Oral.Susp) 30 ml PO Q6H PRN PRN Reason: Heartburn/Nausea Albuterol Sulfate (Albuterol Sulfate 90 Mcg 8 Gm Inhaler) 2 puff INHALE Q6H PRN PRN Reason: for wheezing Bupropion HCl (Bupropion Hcl Xl 150 Mg Tab.Er.24h) 150 mg PO DAILY [facility] Last Admin: 05/23/24 09:25 Dose: 150 mg Clonazepam (Clonazepam 1 Mg Tablet) 1 mg PO TID [facility] Last Admin: 05/23/24 14:43 Dose: 1 mg Famotidine (Famotidine 20 Mg Tablet) 40 mg PO BID [facility] Last Admin: 05/23/24 09:25 Dose: 40 mg Gabapentin (Gabapentin 300 Mg Capsule) 300 mg PO TID [facility] Last Admin: 05/23/24 14:43 Dose: 300 mg Hydroxyzine HCl (Hydroxyzine Hcl 25 Mg Tablet) 25 mg PO Q6H PRN PRN Reason: Anxiety Last Admin: 05/19/24 20:20 Dose: 25 mg Lamotrigine (Lamotrigine 25 Mg Tablet) 25 mg PO BEDTIME [facility] Last Admin: 05/22/24 20:52 Dose: 25 mg Magnesium Hydroxide (Milk Of Magnesia 30 Ml Oral.Susp) 30 ml PO DAILY PRN PRN Reason: Constipation Last Admin: 05/23/24 09:24 Dose: 30 ml Pt Own (Lifitegrast [Xiidra] 5 % Dropperette) 1 drop EYE-BOTH BID [facility] Last Admin: 05/23/24 10:00 Dose: 1 drop Non-Formulary Medication (Perfluorohexyloctane (Pf) [Miebo (Pf)]) 1 drop EYE- BOTH BID [facility] Pt Own (Synthroid (50 Mcg Tablet)) 50 mcg PO DAILY@0600 [facility] Last Admin: 05/23/24 06:05 Dose: 50 mcg Olanzapine (Olanzapine 2.5 Mg Tablet) 2.5 mg PO BEDTIME [facility] Last Admin: 05/22/24 20:52 Dose: 2.5 mg Ondansetron HCl (Ondansetron Odt 4 Mg Tab.Rapdis) 4 mg TRANSLINGU Q8H PRN PRN Reason: Nausea and Vomiting Last Admin: 05/22/24 11:24 Dose: 4 mg Prazosin HCl (Prazosin Hcl 1 Mg Capsule) 1 mg PO BEDTIME [facility]; Protocol Last Admin: 05/22/24 20:51 Dose: 1 mg Simethicone (Simethicone 80 Mg Tab.Chew) 160 mg PO QID PRN PRN Reason: Gas Last Admin: 05/22/24 11:24 Dose: 160 mg Sumatriptan Succinate (Sumatriptan Succinate 50 Mg Tablet) 50 mg PO DAILY PRN PRN Reason: Migraine Headache Last Admin: 05/21/24 05:34 Dose: 50 mg Trazodone HCl (Trazodone Hcl 50 Mg Tablet) 50 mg PO BEDTIME [facility] Last Admin: 05/22/24 20:52 Dose: 50 mg Trazodone HCl (Trazodone Hcl 50 Mg Tablet) 50 mg PO BEDTIME MRX1 PRN PRN Reason: Insomnia Last Admin: 05/18/24 22:58 Dose: 50 mg Vitamin D (Cholecalciferol (Vitamin D3) 25 Mcg Tablet) 50 mcg PO DAILY [facility] Last Admin: 05/23/24 09:24 Dose: 50 mcg Allergies Allergies Allergy/AdvReac Type Severity Reaction Status Date / Time Sulfa (Sulfonamide Allergy Severe Itching Verified 05/16/24 19:20 Antibiotics) codeine [CODEINE] Allergy Intermediate ITCHING Verified 05/16/24 19:20 hydroxychloroquine Allergy Intermediate VOMITING Verified 05/16/24 19:20 [From PLAQUENIL] morphine [MORPHINE] Allergy Intermediate ITCHING Verified 05/16/24 19:20 Estrogens Allergy Mild Unknown Verified 05/16/24 19:20 levothyroxine sodium Allergy Unknown rash,throat Verified 05/16/24 19:20 closes prednisone Allergy Unknown Unknown Verified 05/16/24 19:20 Corticosteroids AdvReac Severe DIFFICULTY Verified 05/16/24 19:20 (Glucocorticoids) BREATHING [CORTICOSTEROIDS (GLUCOCORTICOIDS)] escitalopram [From Lexapro] AdvReac Severe seizure Verified 05/16/24 19:20 meloxicam AdvReac Severe Gastrointestinal Verified 05/16/24 19:20 Upset tadalafil [From Cialis] AdvReac Intermediate Nausea and Verified 05/16/24 19:20 Vomiting acetaminophen [Percocet] AdvReac Unknown Unknown Verified 05/16/24 19:20 duloxetine AdvReac Unknown Unknown Verified 05/16/24 19:20 fluconazole AdvReac Unknown Itch, pain, Verified 05/16/24 19:20 Assessment & Plan Assessment & Plan (1) Bipolar depression: Status: Acute Code(s): F31.9 - Bipolar disorder, unspecified (2) PTSD (post-traumatic stress disorder): Status: Acute Code(s): F43.10 - Post-traumatic stress disorder, unspecified Plan The patient is a middle-aged black female with a past history of bipolar disorder who had been depressed with suicidal ideation for the last weeks. The patient had been admitted before and she had had traumatic experiences in the past with signs and symptoms compatible with PTSD. The patient overdosed on medications a few days ago but so far she is medically cleared. Plan 1. 15 minute checks since the patient is able to contract for safety in the facility. 2. Gather more collateral information. 3. Continue with Wellbutrin as prescribed. 4. We will start a mood stabilizer in order to help her on her depression. Started on Zyprexa 2.5 p.o. q.h.s. on May 19. 5. Continue with medical workout. 6. Reassessment with results. 7. On May 22 we started Lamictal 25 p.o. daily. Reason for continued inpatient stay Substantial Risk for: inability to function, rapid decompensation and med/psych decompensation Time Spent With Patient Time: Total time managing care of this patient today __20__ minutes.
[2024-05-23 20:00] VITALS: BP 120/59; PULSE 78; RESP 16; TEMP 37.2; O2SAT 98
[2024-05-23 20:23] VITALS: BP 120/59
[2024-05-23] MEDS: Prazosin HCL 1 MG CAPSULE PO (20:23)
[2024-05-23] MEDS: traZODone HCL 50 MG TABLET PO (20:23)
[2024-05-23] MEDS: lamoTRIgine 25 MG TABLET PO (20:24)
[2024-05-23] MEDS: OLANZapine 2.5 MG TABLET PO (20:24)
[2024-05-24] MEDS: SYNTHROID 50 MCG 50 EACH PO (05:27)
[2024-05-24 08:15] VITALS: BP 121/69; PULSE 80; RESP 18; TEMP 36.6; O2SAT 98
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
[2024-05-24] MEDS: Gabapentin 300 MG CAPSULE PO ×3 (08:58→20:29)
[2024-05-24] MEDS: LIFITEGRAST 5% 1 EACH EYE-BOTH ×2 (08:58→20:29)
[2024-05-24] MEDS: clonazePAM 1 MG TABLET PO ×3 (08:58→20:29)
[2024-05-24] MEDS: Cholecalciferol (Vitamin D3) 25 MCG TABLET 50 MCG PO (08:59)
[2024-05-24] MEDS: buPROPion HCl XL 150 MG TAB.ER.24H PO (08:59)
[2024-05-24] MEDS: Famotidine 20 MG TABLET 40 MG PO ×2 (08:59→20:28)
--- NOTE | 2024-05-24 17:03 | MHC.SPEECHCO ---
Per review of EMR, patient had an outpatient MBSS on 11/29/23 demonstrating a functional oral and pharyngeal phase of swallow. Findings showed no aspiration or penetration into the airway. Mild oral and pharyngeal residue cleared eventually with secondary swallows. PRIMARY CARE NURSE PRACTITIONER recommended continue with unmodified diet textures regular solids and thin liquids. The attending Radiologist noted mild esophageal webbing at the level of C5. Further speech therapy was not indicated for dysphagia at the time and patient was recommended further workup with upper GI series or Esophagram. Patient currently admitted [facility]. Patient managed liquid and solid textures well with no overt difficulties when patient was seen for bedside dysphagia evaluation 05/22. Patient reported odynophagia and voice changes over the past few months. Patient is recommended ENT consult and GI followup d/t nature of complaints and recent changes to nasopharyngeal anatomy.
[2024-05-24 20:00] VITALS: BP 121/88; PULSE 83; RESP 18; TEMP 36.9; O2SAT 99
[2024-05-24] MEDS: Prazosin HCL 1 MG CAPSULE PO (20:28)
[2024-05-24] MEDS: traZODone HCL 50 MG TABLET PO (20:29)
[2024-05-24] MEDS: OLANZapine 2.5 MG TABLET PO (20:29)
[2024-05-24] MEDS: lamoTRIgine 25 MG TABLET PO (20:29)
[2024-05-25] MEDS: SYNTHROID 50 MCG 50 EACH PO (06:05)
[2024-05-25 08:00] VITALS: BP 116/75; PULSE 87; RESP 18; TEMP 36.4; O2SAT 99
[2024-05-25] MEDS: Famotidine 20 MG TABLET 40 MG PO ×2 (08:37→20:30)
[2024-05-25] MEDS: Cholecalciferol (Vitamin D3) 25 MCG TABLET 50 MCG PO (08:38)
[2024-05-25] MEDS: buPROPion HCl XL 150 MG TAB.ER.24H PO (08:38)
[2024-05-25] MEDS: Gabapentin 300 MG CAPSULE PO ×3 (08:38→20:30)
[2024-05-25] MEDS: clonazePAM 1 MG TABLET PO ×3 (08:38→20:30)
[2024-05-25] MEDS: LIFITEGRAST 5% 1 EACH EYE-BOTH ×2 (08:39→20:29)
[2024-05-25] MEDS: SUMAtriptan succinate 50 MG TABLET PO (10:44)
[2024-05-25] MEDS: bisacodyL 5 MG TABLET.DR 10 MG PO (11:09)
--- NOTE | 2024-05-25 14:58 | P.PNPSI_ITS ---
Subjective Subjective Date of Service: 05/25/24 Reason For Visit: SI Interim History: Pt seen, reviewed with the team. Reports constipation and migraine Prefers miralax prn and imitrex which are ordered along with dulcolax Tells team anxiety is a 9/10, no SI, voices at times. Medication Compliance: Yes Side effects from medications: No Attending Groups: Intermittent Review of Systems Acute medical concerns: No Medical Review of Systems: unchanged Review of Systems Review of Systems constipation, migraine Mental Status Exam Mental Status Exam Patient Appearance: Well Grooomed Patient Orientation: Person and Situation Level of Consciousness: Awake Patient Behavior: Guarded and Passive Mood Description: Withdrawn Affect Description: Constricted Patient Cognition Impaired: Yes Ability to Follow Directions: Good Speech Pattern: Clear Diagnostics Vital Signs (24Hr): Vital Signs - 24 hr 05/24/24 20:00 05/25/24 08:00 Temperature 98.4 F 97.5 F Pulse Rate 83 87 Respiratory Rate 18 18 Blood Pressure 121/88 116/75 Pulse Oximetry 99 99 Oxygen Delivery Method Room Air Room Air BMI result Body Mass Index 21.4 Labs 05/16/24 19:53 05/18/24 15:34 Medications Medications Current Medications Al Hydroxide/Mg Hydroxide (Magnesium Hydrox/Alum Hydrox 30 Ml Oral.Susp) 30 ml PO Q6H PRN PRN Reason: Heartburn/Nausea Albuterol Sulfate (Albuterol Sulfate 90 Mcg 8 Gm Inhaler) 2 puff INHALE Q6H PRN PRN Reason: for wheezing Bisacodyl (Bisacodyl 5 Mg Tablet.Dr) 10 mg PO DAILY PRN PRN Reason: Constipation Last Admin: 05/25/24 11:09 Dose: 10 mg Bupropion HCl (Bupropion Hcl Xl 150 Mg Tab.Er.24h) 150 mg PO DAILY [facility] Last Admin: 05/25/24 08:38 Dose: 150 mg Clonazepam (Clonazepam 1 Mg Tablet) 1 mg PO TID [facility] Last Admin: 05/25/24 08:38 Dose: 1 mg Famotidine (Famotidine 20 Mg Tablet) 40 mg PO BID [facility] Last Admin: 05/25/24 08:37 Dose: 40 mg Gabapentin (Gabapentin 300 Mg Capsule) 300 mg PO TID [facility] Last Admin: 05/25/24 08:38 Dose: 300 mg Hydroxyzine HCl (Hydroxyzine Hcl 25 Mg Tablet) 25 mg PO Q6H PRN PRN Reason: Anxiety Last Admin: 05/19/24 20:20 Dose: 25 mg Lamotrigine (Lamotrigine 25 Mg Tablet) 25 mg PO BEDTIME [facility] Last Admin: 05/24/24 20:29 Dose: 25 mg Magnesium Hydroxide (Milk Of Magnesia 30 Ml Oral.Susp) 30 ml PO DAILY PRN PRN Reason: Constipation Last Admin: 05/23/24 09:24 Dose: 30 ml Pt Own (Lifitegrast [Xiidra] 5 % Dropperette) 1 drop EYE-BOTH BID [facility] Last Admin: 05/25/24 08:39 Dose: 1 drop Pt Own (Synthroid (50 Mcg Tablet)) 50 mcg PO DAILY@0600 [facility] Last Admin: 05/25/24 06:05 Dose: 50 mcg Olanzapine (Olanzapine 2.5 Mg Tablet) 2.5 mg PO BEDTIME [facility] Last Admin: 05/24/24 20:29 Dose: 2.5 mg Ondansetron HCl (Ondansetron Odt 4 Mg Tab.Rapdis) 4 mg TRANSLINGU Q8H PRN PRN Reason: Nausea and Vomiting Last Admin: 05/22/24 11:24 Dose: 4 mg Prazosin HCl (Prazosin Hcl 1 Mg Capsule) 1 mg PO BEDTIME [facility]; Protocol Last Admin: 05/24/24 20:28 Dose: 1 mg Simethicone (Simethicone 80 Mg Tab.Chew) 160 mg PO QID PRN PRN Reason: Gas Last Admin: 05/22/24 11:24 Dose: 160 mg Sumatriptan Succinate (Sumatriptan Succinate 50 Mg Tablet) 50 mg PO DAILY PRN PRN Reason: Migraine Headache Last Admin: 05/25/24 10:44 Dose: 50 mg Trazodone HCl (Trazodone Hcl 50 Mg Tablet) 50 mg PO BEDTIME [facility]INO Last Admin: 05/24/24 20:29 Dose: 50 mg Trazodone HCl (Trazodone Hcl 50 Mg Tablet) 50 mg PO BEDTIME MRX1 PRN PRN Reason: Insomnia Last Admin: 05/18/24 22:58 Dose: 50 mg Vitamin D (Cholecalciferol (Vitamin D3) 25 Mcg Tablet) 50 mcg PO DAILY [facility] Last Admin: 05/25/24 08:38 Dose: 50 mcg Allergies Allergies Allergy/AdvReac Type Severity Reaction Status Date / Time Sulfa (Sulfonamide Allergy Severe Itching Verified 05/16/24 19:20 Antibiotics) codeine [CODEINE] Allergy Intermediate ITCHING Verified 05/16/24 19:20 hydroxychloroquine Allergy Intermediate VOMITING Verified 05/16/24 19:20 [From PLAQUENIL] morphine [MORPHINE] Allergy Intermediate ITCHING Verified 05/16/24 19:20 Estrogens Allergy Mild Unknown Verified 05/16/24 19:20 levothyroxine sodium Allergy Unknown rash,throat Verified 05/16/24 19:20 closes prednisone Allergy Unknown Unknown Verified 05/16/24 19:20 Corticosteroids AdvReac Severe DIFFICULTY Verified 05/16/24 19:20 (Glucocorticoids) BREATHING [CORTICOSTEROIDS (GLUCOCORTICOIDS)] escitalopram [From Lexapro] AdvReac Severe seizure Verified 05/16/24 19:20 meloxicam AdvReac Severe Gastrointestinal Verified 05/16/24 19:20 Upset tadalafil [From Cialis] AdvReac Intermediate Nausea and Verified 05/16/24 19:20 Vomiting acetaminophen [Percocet] AdvReac Unknown Unknown Verified 05/16/24 19:20 duloxetine AdvReac Unknown Unknown Verified 05/16/24 19:20 fluconazole AdvReac Unknown Itch, pain, Verified 05/16/24 19:20 Assessment & Plan Assessment & Plan (1) Bipolar depression: Status: Acute Code(s): F31.9 - Bipolar disorder, unspecified (2) PTSD (post-traumatic stress disorder): Status: Acute Code(s): F43.10 - Post-traumatic stress disorder, unspecified Plan The patient is a middle-aged black female with a past history of bipolar disorder who had been depressed with suicidal ideation for the last weeks. The patient had been admitted before and she had had traumatic experiences in the past with signs and symptoms compatible with PTSD. The patient overdosed on medications a few days ago but so far she is medically cleared. Plan 05/24 continue tx. 05/25 continue plan of care Reason for continued inpatient stay Substantial Risk for: rapid decompensation Time Spent With Patient Time: Total time managing care of this patient today ____ minutes.
[2024-05-25] MEDS: polyethylene glycoL 3350 17 GM POWD.PACK PO (15:40)
[2024-05-25] MEDS: Simethicone 80 MG TAB.CHEW 160 MG PO (15:49)
[2024-05-25 19:56] VITALS: BP 117/61; PULSE 81; TEMP 36.9; O2SAT 100
[2024-05-25] MEDS: lamoTRIgine 25 MG TABLET PO (20:29)
[2024-05-25] MEDS: traZODone HCL 50 MG TABLET PO (20:30)
[2024-05-25] MEDS: Prazosin HCL 1 MG CAPSULE PO (20:30)
[2024-05-25] MEDS: OLANZapine 2.5 MG TABLET PO (20:30)
[2024-05-26] MEDS: SUMAtriptan succinate 50 MG TABLET PO (04:43)
[2024-05-26] MEDS: SYNTHROID 50 MCG 50 EACH PO (06:03)
[2024-05-26 08:00] VITALS: BP 129/60; PULSE 73; RESP 18; TEMP 36.8; O2SAT 98
[2024-05-26] MEDS: Famotidine 20 MG TABLET 40 MG PO ×2 (08:37→20:10)
[2024-05-26] MEDS: Gabapentin 300 MG CAPSULE PO ×3 (08:37→20:10)
[2024-05-26] MEDS: Cholecalciferol (Vitamin D3) 25 MCG TABLET 50 MCG PO (08:37)
[2024-05-26] MEDS: clonazePAM 1 MG TABLET PO ×3 (08:38→20:11)
[2024-05-26] MEDS: LIFITEGRAST 5% 1 EACH EYE-BOTH ×2 (08:38→20:15)
[2024-05-26] MEDS: buPROPion HCl XL 150 MG TAB.ER.24H PO (08:38)
[2024-05-26] MEDS: polyethylene glycoL 3350 17 GM POWD.PACK PO (08:40)
--- NOTE | 2024-05-26 08:43 | HO.PSYCHPN ---
Subjective Subjective Date of Service: 05/26/24 Reason For Visit: SI Interim History: Pt seen, discussed with the team Participating in group this a.m. Team reports migraine relief. Constipation persists. Team also reports that pt appears to have an increase in anxiety and confusion in the afternoon with an increase in physical reports of symptoms and distress. Medication Compliance: Yes Side effects from medications: Yes (?constipation) Attending Groups: Yes Review of Systems Medical Review of Systems: unchanged Review of Systems Review of Systems constipation Mental Status Exam Mental Status Exam Patient Appearance: Well Grooomed Patient Orientation: Person and Situation Level of Consciousness: Awake Patient Behavior: Guarded and Passive Mood Description: Withdrawn Affect Description: Constricted Patient Cognition Impaired: Yes Ability to Follow Directions: Good Speech Pattern: Clear Diagnostics Vital Signs (24Hr): Vital Signs - 24 hr 05/25/24 19:56 Temperature 98.4 F Pulse Rate 81 Blood Pressure 117/61 Pulse Oximetry 100 Oxygen Delivery Method Room Air BMI result Body Mass Index 21.4 Labs 05/16/24 19:53 05/18/24 15:34 Medications Medications Current Medications Al Hydroxide/Mg Hydroxide (Magnesium Hydrox/Alum Hydrox 30 Ml Oral.Susp) 30 ml PO Q6H PRN PRN Reason: Heartburn/Nausea Albuterol Sulfate (Albuterol Sulfate 90 Mcg 8 Gm Inhaler) 2 puff INHALE Q6H PRN PRN Reason: for wheezing Bisacodyl (Bisacodyl 5 Mg Tablet.Dr) 10 mg PO DAILY PRN PRN Reason: Constipation Last Admin: 05/25/24 11:09 Dose: 10 mg Bupropion HCl (Bupropion Hcl Xl 150 Mg Tab.Er.24h) 150 mg PO DAILY [facility] Last Admin: 05/25/24 08:38 Dose: 150 mg Clonazepam (Clonazepam 1 Mg Tablet) 1 mg PO TID [facility] Last Admin: 05/25/24 20:30 Dose: 1 mg Famotidine (Famotidine 20 Mg Tablet) 40 mg PO BID [facility] Last Admin: 05/25/24 20:30 Dose: 40 mg Gabapentin (Gabapentin 300 Mg Capsule) 300 mg PO TID [facility] Last Admin: 05/25/24 20:30 Dose: 300 mg Hydroxyzine HCl (Hydroxyzine Hcl 25 Mg Tablet) 25 mg PO Q6H PRN PRN Reason: Anxiety Last Admin: 05/19/24 20:20 Dose: 25 mg Lamotrigine (Lamotrigine 25 Mg Tablet) 25 mg PO BEDTIME [facility] Last Admin: 05/25/24 20:29 Dose: 25 mg Pt Own (Lifitegrast [Xiidra] 5 % Dropperette) 1 drop EYE-BOTH BID [facility] Last Admin: 05/25/24 20:29 Dose: 1 drop Pt Own (Synthroid (50 Mcg Tablet)) 50 mcg PO DAILY@0600 [facility] Last Admin: 05/26/24 06:03 Dose: 50 mcg Olanzapine (Olanzapine 2.5 Mg Tablet) 2.5 mg PO BEDTIME [facility] Last Admin: 05/25/24 20:30 Dose: 2.5 mg Ondansetron HCl (Ondansetron Odt 4 Mg Tab.Rapdis) 4 mg TRANSLINGU Q8H PRN PRN Reason: Nausea and Vomiting Last Admin: 05/22/24 11:24 Dose: 4 mg Polyethylene Glycol (Polyethylene Glycol 3350 17 Gm Powd.Pack) 17 gm PO DAILY PRN PRN Reason: Constipation Last Admin: 05/25/24 15:40 Dose: 17 gm Prazosin HCl (Prazosin Hcl 1 Mg Capsule) 1 mg PO BEDTIME [facility]; Protocol Last Admin: 05/25/24 20:30 Dose: 1 mg Simethicone (Simethicone 80 Mg Tab.Chew) 160 mg PO QID PRN PRN Reason: Gas Last Admin: 05/25/24 15:49 Dose: 160 mg Sumatriptan Succinate (Sumatriptan Succinate 50 Mg Tablet) 50 mg PO DAILY PRN PRN Reason: Migraine Headache Last Admin: 05/26/24 04:43 Dose: 50 mg Trazodone HCl (Trazodone Hcl 50 Mg Tablet) 50 mg PO BEDTIME [facility] Last Admin: 05/25/24 20:30 Dose: 50 mg Trazodone HCl (Trazodone Hcl 50 Mg Tablet) 50 mg PO BEDTIME MRX1 PRN PRN Reason: Insomnia Last Admin: 05/18/24 22:58 Dose: 50 mg Vitamin D (Cholecalciferol (Vitamin D3) 25 Mcg Tablet) 50 mcg PO DAILY [facility] Last Admin: 05/25/24 08:38 Dose: 50 mcg Allergies Allergies Allergy/AdvReac Type Severity Reaction Status Date / Time Sulfa (Sulfonamide Allergy Severe Itching Verified 05/16/24 19:20 Antibiotics) codeine [CODEINE] Allergy Intermediate ITCHING Verified 05/16/24 19:20 hydroxychloroquine Allergy Intermediate VOMITING Verified 05/16/24 19:20 [From PLAQUENIL] morphine [MORPHINE] Allergy Intermediate ITCHING Verified 05/16/24 19:20 Estrogens Allergy Mild Unknown Verified 05/16/24 19:20 levothyroxine sodium Allergy Unknown rash,throat Verified 05/16/24 19:20 closes prednisone Allergy Unknown Unknown Verified 05/16/24 19:20 Corticosteroids AdvReac Severe DIFFICULTY Verified 05/16/24 19:20 (Glucocorticoids) BREATHING [CORTICOSTEROIDS (GLUCOCORTICOIDS)] escitalopram [From Lexapro] AdvReac Severe seizure Verified 05/16/24 19:20 meloxicam AdvReac Severe Gastrointestinal Verified 05/16/24 19:20 Upset tadalafil [From Cialis] AdvReac Intermediate Nausea and Verified 05/16/24 19:20 Vomiting acetaminophen [Percocet] AdvReac Unknown Unknown Verified 05/16/24 19:20 duloxetine AdvReac Unknown Unknown Verified 05/16/24 19:20 fluconazole AdvReac Unknown Itch, pain, Verified 05/16/24 19:20 Assessment & Plan Assessment & Plan (1) Bipolar depression: Status: Acute Code(s): F31.9 - Bipolar disorder, unspecified (2) PTSD (post-traumatic stress disorder): Status: Acute Code(s): F43.10 - Post-traumatic stress disorder, unspecified Plan The patient is a middle-aged black female with a past history of bipolar disorder who had been depressed with suicidal ideation for the last weeks. The patient had been admitted before and she had had traumatic experiences in the past with signs and symptoms compatible with PTSD. The patient overdosed on medications a few days ago but so far she is medically cleared. Plan 05/24 continue tx. 05/25 continue plan of care 05/26 continue tx monitor constipation Reason for continued inpatient stay Substantial Risk for: rapid decompensation Time Spent With Patient Time: Total time managing care of this patient today ____ minutes.
[2024-05-26] MEDS: bisacodyL 5 MG TABLET.DR 10 MG PO (14:17)
[2024-05-26] MEDS: Simethicone 80 MG TAB.CHEW 160 MG PO (14:18)
[2024-05-26 20:00] VITALS: BP 113/63; PULSE 79; TEMP 36.6; O2SAT 99
[2024-05-26 20:10] VITALS: BP 113/63
[2024-05-26] MEDS: Prazosin HCL 1 MG CAPSULE PO (20:10)
[2024-05-26] MEDS: lamoTRIgine 25 MG TABLET PO (20:10)
[2024-05-26] MEDS: traZODone HCL 50 MG TABLET PO (20:10)
[2024-05-26] MEDS: OLANZapine 2.5 MG TABLET PO (20:11)
[2024-05-27] MEDS: SYNTHROID 50 MCG 50 EACH PO (05:00)
[2024-05-27 08:00] VITALS: BP 128/66; PULSE 88; RESP 18; TEMP 36.3; O2SAT 100
[2024-05-27] MEDS: LIFITEGRAST 5% 1 EACH EYE-BOTH ×2 (08:33→21:34)
[2024-05-27] MEDS: Cholecalciferol (Vitamin D3) 25 MCG TABLET 50 MCG PO (08:33)
[2024-05-27] MEDS: Gabapentin 300 MG CAPSULE PO ×3 (08:34→19:47)
[2024-05-27] MEDS: Famotidine 20 MG TABLET 40 MG PO ×2 (08:34→19:47)
[2024-05-27] MEDS: buPROPion HCl XL 150 MG TAB.ER.24H PO (08:34)
[2024-05-27] MEDS: clonazePAM 1 MG TABLET PO ×3 (08:34→19:48)
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
[2024-05-27] MEDS: lamoTRIgine 25 MG TABLET PO ×2 (10:54→19:45)
[2024-05-27 19:20] VITALS: BP 139/72; PULSE 91; RESP 16; TEMP 36.3; O2SAT 96
--- NOTE | 2024-05-27 19:39 | PM.EVENT ---
Event Note Date of Service: 05/27/24 Event Note: Patient had mechanical unwitnessed fall, so she was leaning towards her night stand and fell on her left knee with some pain. But she was able to stand ambulate and put full weight on her left leg no obvious deformities. Continue fall precautions, pain control. Time Spent With Patient Time: Total time managing care of this patient today ____ minutes.
[2024-05-27 19:44] VITALS: BP 130/69
[2024-05-27] MEDS: Prazosin HCL 1 MG CAPSULE PO (19:44)
[2024-05-27] MEDS: OLANZapine 2.5 MG TABLET PO (19:46)
[2024-05-27] MEDS: traZODone HCL 50 MG TABLET PO (19:46)
[2024-05-27 20:00] VITALS: BP 130/65; PULSE 87; RESP 16; TEMP 36.9; O2SAT 98
[2024-05-27] MEDS: Ketorolac Tromethamine 10 MG TABLET PO (21:32)
--- NOTE | 2024-05-28 00:58 | PC.NURSE ---
1919 pt rang call kerr and staff found pt kneeling on floor next to her bed. bed states that she fell by her night stand landing on her knees. she is ambulatory and there appears to be no apparent injury. pt does have c/o of bilat knee pain. the following implemented. 1. vital signs 97.3 p 91 bpm rr 1 sao2 96% b/p 139/72 2. mill platform supervisor therese notified of fall 3. hospitalist dr magaña notified of fall and bedside evaluation performed 4. absorption plant operator helper provider dr cdaet notified of fall and x1 toradol 10 mg po order obtained for bilat knee pain 5. daughter erica notified of unwitnessed fall.
[2024-05-28 02:46] VITALS: BP 139/72; PULSE 91; RESP 16; TEMP 36.3; O2SAT 96
[2024-05-28] MEDS: SYNTHROID 50 MCG 50 EACH PO (06:26)
[2024-05-28 08:00] VITALS: BP 131/63; PULSE 69; RESP 18; TEMP 36.8; O2SAT 98
[2024-05-28] MEDS: Gabapentin 300 MG CAPSULE PO ×3 (08:44→20:09)
[2024-05-28] MEDS: Cholecalciferol (Vitamin D3) 25 MCG TABLET 50 MCG PO (08:44)
[2024-05-28] MEDS: clonazePAM 1 MG TABLET PO ×3 (08:44→20:09)
[2024-05-28] MEDS: Famotidine 20 MG TABLET 40 MG PO ×2 (08:44→20:10)
[2024-05-28] MEDS: lamoTRIgine 25 MG TABLET PO ×2 (08:44→20:10)
[2024-05-28] MEDS: buPROPion HCl XL 150 MG TAB.ER.24H PO (08:44)
[2024-05-28] MEDS: LIFITEGRAST 5% 1 EACH EYE-BOTH ×2 (09:32→20:24)
--- NOTE | 2024-05-28 11:21 | P.PNPSI_ITS ---
Subjective Subjective Date of Service: 05/28/24 Reason For Visit: SI Subjective Notes: Conditional Voluntary Interim History: The nursing staff reported the patient had been intrusive with peers, tearful at times, last night there was the possible report of an unwitnessed fall. The in the afternoon the patient have an emotional dysregulation and she started throwing all her staff on the floor crying stating that she needs to go to see the neurologist for her appointment. I de- escalate her and explained her that her appointment can be rescheduled, she agreed to take Zydis 10 and Ativan 2. It seems that the patient has emotional dysregulation with episodes of agitation so we are going to increase Zyprexa tomorrow. Mental Status Exam Mental Status Exam Patient Appearance: Appropriate Patient Orientation: Person and Situation Level of Consciousness: Awake and Appropriate Patient Behavior: Guarded and Passive Mood Description: Withdrawn Affect Description: Constricted Patient Cognition Impaired: Yes Ability to Follow Directions: Good Speech Pattern: Clear Hallucinations: None Delusions: Ideas of Reference Thought Process: Distracted and Slowed Thinking Thought Content: positive for [place] and positive for [place] of Content Judgement: Fair Diagnostics Vital Signs (24Hr): Vital Signs - 24 hr 05/27/24 19:20 05/27/24 19:44 05/27/24 20:00 Temperature 97.3 F 98.5 F Pulse Rate 91 87 Respiratory Rate 16 16 Blood Pressure 139/72 130/69 130/65 Pulse Oximetry 96 98 Oxygen Delivery Method Room Air Room Air 05/28/24 02:46 05/28/24 08:00 Temperature 97.3 F 98.2 F Pulse Rate 91 69 Respiratory Rate 16 18 Blood Pressure 139/72 131/63 Pulse Oximetry 96 98 Oxygen Delivery Method Room Air BMI result Body Mass Index 21.4 Labs 05/16/24 19:53 05/18/24 15:34 Medications Medications Current Medications Al Hydroxide/Mg Hydroxide (Magnesium Hydrox/Alum Hydrox 30 Ml Oral.Susp) 30 ml PO Q6H PRN PRN Reason: Heartburn/Nausea Albuterol Sulfate (Albuterol Sulfate 90 Mcg 8 Gm Inhaler) 2 puff INHALE Q6H PRN PRN Reason: for wheezing Bisacodyl (Bisacodyl 5 Mg Tablet.Dr) 10 mg PO DAILY PRN PRN Reason: Constipation Last Admin: 05/26/24 14:17 Dose: 10 mg Bupropion HCl (Bupropion Hcl Xl 150 Mg Tab.Er.24h) 150 mg PO DAILY [facility] Last Admin: 05/28/24 08:44 Dose: 150 mg Clonazepam (Clonazepam 1 Mg Tablet) 1 mg PO TID [facility] Last Admin: 05/28/24 08:44 Dose: 1 mg Famotidine (Famotidine 20 Mg Tablet) 40 mg PO BID [facility] Last Admin: 05/28/24 08:44 Dose: 40 mg Gabapentin (Gabapentin 300 Mg Capsule) 300 mg PO TID [facility] Last Admin: 05/28/24 08:44 Dose: 300 mg Hydroxyzine HCl (Hydroxyzine Hcl 25 Mg Tablet) 25 mg PO Q6H PRN PRN Reason: Anxiety Last Admin: 05/19/24 20:20 Dose: 25 mg Lamotrigine (Lamotrigine 25 Mg Tablet) 25 mg PO BID [facility] Last Admin: 05/28/24 08:44 Dose: 25 mg Pt Own (Lifitegrast [Xiidra] 5 % Dropperette) 1 drop EYE-BOTH BID [facility] Last Admin: 05/28/24 09:32 Dose: 1 drop Pt Own (Synthroid (50 Mcg Tablet)) 50 mcg PO DAILY@0600 [facility] Last Admin: 05/28/24 06:26 Dose: 50 mcg Olanzapine (Olanzapine 2.5 Mg Tablet) 2.5 mg PO BEDTIME [facility] Last Admin: 05/27/24 19:46 Dose: 2.5 mg Ondansetron HCl (Ondansetron Odt 4 Mg Tab.Rapdis) 4 mg TRANSLINGU Q8H PRN PRN Reason: Nausea and Vomiting Last Admin: 05/22/24 11:24 Dose: 4 mg Polyethylene Glycol (Polyethylene Glycol 3350 17 Gm Powd.Pack) 17 gm PO DAILY PRN PRN Reason: Constipation Last Admin: 05/26/24 08:40 Dose: 17 gm Prazosin HCl (Prazosin Hcl 1 Mg Capsule) 1 mg PO BEDTIME [facility]; Protocol Last Admin: 05/27/24 19:44 Dose: 1 mg Simethicone (Simethicone 80 Mg Tab.Chew) 160 mg PO QID PRN PRN Reason: Gas Last Admin: 05/26/24 14:18 Dose: 160 mg Sumatriptan Succinate (Sumatriptan Succinate 50 Mg Tablet) 50 mg PO DAILY PRN PRN Reason: Migraine Headache Last Admin: 05/26/24 04:43 Dose: 50 mg Trazodone HCl (Trazodone Hcl 50 Mg Tablet) 50 mg PO BEDTIME [facility] Last Admin: 05/27/24 19:46 Dose: 50 mg Trazodone HCl (Trazodone Hcl 50 Mg Tablet) 50 mg PO BEDTIME MRX1 PRN PRN Reason: Insomnia Last Admin: 05/18/24 22:58 Dose: 50 mg Vitamin D (Cholecalciferol (Vitamin D3) 25 Mcg Tablet) 50 mcg PO DAILY [facility] Last Admin: 05/28/24 08:44 Dose: 50 mcg Allergies Allergies Allergy/AdvReac Type Severity Reaction Status Date / Time Sulfa (Sulfonamide Allergy Severe Itching Verified 05/16/24 19:20 Antibiotics) codeine [CODEINE] Allergy Intermediate ITCHING Verified 05/16/24 19:20 hydroxychloroquine Allergy Intermediate VOMITING Verified 05/16/24 19:20 [From PLAQUENIL] morphine [MORPHINE] Allergy Intermediate ITCHING Verified 05/16/24 19:20 Estrogens Allergy Mild Unknown Verified 05/16/24 19:20 levothyroxine sodium Allergy Unknown rash,throat Verified 05/16/24 19:20 closes prednisone Allergy Unknown Unknown Verified 05/16/24 19:20 Corticosteroids AdvReac Severe DIFFICULTY Verified 05/16/24 19:20 (Glucocorticoids) BREATHING [CORTICOSTEROIDS (GLUCOCORTICOIDS)] escitalopram [From Lexapro] AdvReac Severe seizure Verified 05/16/24 19:20 meloxicam AdvReac Severe Gastrointestinal Verified 05/16/24 19:20 Upset tadalafil [From Cialis] AdvReac Intermediate Nausea and Verified 05/16/24 19:20 Vomiting acetaminophen [Percocet] AdvReac Unknown Unknown Verified 05/16/24 19:20 duloxetine AdvReac Unknown Unknown Verified 05/16/24 19:20 fluconazole AdvReac Unknown Itch, pain, Verified 05/16/24 19:20 Assessment & Plan Assessment & Plan (1) Bipolar depression: Status: Acute Code(s): F31.9 - Bipolar disorder, unspecified (2) PTSD (post-traumatic stress disorder): Status: Acute Code(s): F43.10 - Post-traumatic stress disorder, unspecified Plan The patient is a middle-aged black female with a past history of bipolar disorder who had been depressed with suicidal ideation for the last weeks. The patient had been admitted before and she had had traumatic experiences in the past with signs and symptoms compatible with PTSD. The patient overdosed on medications a few days ago but so far she is medically cleared. Plan 05/24 continue tx. 05/25 continue plan of care 05/26 continue tx monitor constipation 05/27 we are going to increase Lamictal up to 25 mg p.o. b.i.d.. Also we are going to contact Neurology. We are keeping Zyprexa 2.5 p.o. q.h.s. and Wellbutrin for depression. 05/28 keep same treatment, we are going to titrate Lamictal the day after tomorrow. Tomorrow we will increase Zyprexa to 5 mg p.o. q.h.s. to target mood lability. Reason for continued inpatient stay Substantial Risk for: inability to function, rapid decompensation and med/psych decompensation Time Spent With Patient Time: Total time managing care of this patient today ___20_ minutes.
[2024-05-28] MEDS: hydrOXYzine HCL 25 MG TABLET PO (13:05)
[2024-05-28] MEDS: OLANZapine ODT 10 MG TAB.RAPDIS TRANSLINGU (14:41)
[2024-05-28] MEDS: Lidocaine 4 % Patch ADH..PATCH 2 PATCH TRANSDERMA (14:50)
[2024-05-28] MEDS: LORazepam 1 MG TABLET 2 MG PO (15:39)
[2024-05-28 20:00] VITALS: BP 132/65; PULSE 82; RESP 16; TEMP 35.8; O2SAT 98
[2024-05-28] MEDS: OLANZapine 2.5 MG TABLET PO (20:09)
[2024-05-28] MEDS: traZODone HCL 50 MG TABLET PO (20:09)
[2024-05-28 20:10] VITALS: BP 132/65
[2024-05-28] MEDS: Prazosin HCL 1 MG CAPSULE PO (20:10)
[2024-05-29] MEDS: SYNTHROID 50 MCG 50 EACH PO (05:54)
[2024-05-29 08:00] VITALS: BP 116/56; PULSE 96; RESP 18; TEMP 36.4; O2SAT 97
[2024-05-29] MEDS: buPROPion HCl XL 150 MG TAB.ER.24H PO (08:57)
[2024-05-29] MEDS: Cholecalciferol (Vitamin D3) 25 MCG TABLET 50 MCG PO (08:57)
[2024-05-29] MEDS: clonazePAM 1 MG TABLET PO ×3 (08:57→20:39)
[2024-05-29] MEDS: Famotidine 20 MG TABLET 40 MG PO ×2 (08:57→20:39)
[2024-05-29] MEDS: Gabapentin 300 MG CAPSULE PO ×3 (08:57→20:40)
[2024-05-29] MEDS: lamoTRIgine 25 MG TABLET 50 MG PO ×2 (09:42→20:39)
[2024-05-29] MEDS: LIFITEGRAST 5% 1 EACH EYE-BOTH ×2 (09:48→20:40)
--- NOTE | 2024-05-29 14:56 | HO.PSYCHPN ---
Subjective Subjective Date of Service: 05/29/24 Reason For Visit: SI Subjective Notes: Conditional Voluntary Interim History: The nursing staff reported the patient slept well after she was agitated in the afternoon and received Zyprexa and Ativan. She woke up like attend 30 p.m.. On interview the patient reports that she is feeling more anxious and she was ashamed of her behavior yesterday. We had a family meeting her daughter and explained her diagnosis we are continue with the titration of Lamictal and Zyprexa. Mental Status Exam Mental Status Exam Patient Appearance: Appropriate Patient Orientation: Person and Situation Level of Consciousness: Awake and Appropriate Patient Behavior: Guarded and Passive Mood Description: Calm Affect Description: Constricted Patient Cognition Impaired: Yes Ability to Follow Directions: Good Speech Pattern: Clear Hallucinations: None Delusions: Not Present Thought Process: Distracted and Slowed Thinking Thought Content: positive for [place] and positive for Circumstantial Judgement: Fair Diagnostics Vital Signs (24Hr): Vital Signs - 24 hr 05/28/24 20:00 05/28/24 20:10 05/29/24 08:00 Temperature 96.4 F L 97.5 F Pulse Rate 82 96 Respiratory Rate 16 18 Blood Pressure 132/65 132/65 116/56 L Pulse Oximetry 98 97 Oxygen Delivery Method Room Air Room Air BMI result Body Mass Index 21.4 Labs 05/16/24 19:53 05/18/24 15:34 Medications Medications Current Medications Al Hydroxide/Mg Hydroxide (Magnesium Hydrox/Alum Hydrox 30 Ml Oral.Susp) 30 ml PO Q6H PRN PRN Reason: Heartburn/Nausea Albuterol Sulfate (Albuterol Sulfate 90 Mcg 8 Gm Inhaler) 2 puff INHALE Q6H PRN PRN Reason: for wheezing Bisacodyl (Bisacodyl 5 Mg Tablet.Dr) 10 mg PO DAILY PRN PRN Reason: Constipation Last Admin: 05/26/24 14:17 Dose: 10 mg Bupropion HCl (Bupropion Hcl Xl 150 Mg Tab.Er.24h) 150 mg PO DAILY [facility] Last Admin: 05/29/24 08:57 Dose: 150 mg Clonazepam (Clonazepam 1 Mg Tablet) 1 mg PO TID [facility] Last Admin: 05/29/24 08:57 Dose: 1 mg Famotidine (Famotidine 20 Mg Tablet) 40 mg PO BID [facility] Last Admin: 05/29/24 08:57 Dose: 40 mg Gabapentin (Gabapentin 300 Mg Capsule) 300 mg PO TID [facility] Last Admin: 05/29/24 08:57 Dose: 300 mg Hydroxyzine HCl (Hydroxyzine Hcl 25 Mg Tablet) 25 mg PO Q6H PRN PRN Reason: Anxiety Last Admin: 05/28/24 13:05 Dose: 25 mg Lamotrigine (Lamotrigine 25 Mg Tablet) 50 mg PO BID [facility] Last Admin: 05/29/24 09:42 Dose: 50 mg Pt Own (Lifitegrast [Xiidra] 5 % Dropperette) 1 drop EYE-BOTH BID [facility] Last Admin: 05/29/24 09:48 Dose: 1 drop Pt Own (Synthroid (50 Mcg Tablet)) 50 mcg PO DAILY@0600 [facility] Last Admin: 05/29/24 05:54 Dose: 50 mcg Olanzapine (Olanzapine 5 Mg Tablet) 5 mg PO BEDTIME [facility] Ondansetron HCl (Ondansetron Odt 4 Mg Tab.Rapdis) 4 mg TRANSLINGU Q8H PRN PRN Reason: Nausea and Vomiting Last Admin: 05/22/24 11:24 Dose: 4 mg Polyethylene Glycol (Polyethylene Glycol 3350 17 Gm Powd.Pack) 17 gm PO DAILY PRN PRN Reason: Constipation Last Admin: 05/26/24 08:40 Dose: 17 gm Prazosin HCl (Prazosin Hcl 1 Mg Capsule) 1 mg PO BEDTIME [facility]; Protocol Last Admin: 05/28/24 20:10 Dose: 1 mg Simethicone (Simethicone 80 Mg Tab.Chew) 160 mg PO QID PRN PRN Reason: Gas Last Admin: 05/26/24 14:18 Dose: 160 mg Sumatriptan Succinate (Sumatriptan Succinate 50 Mg Tablet) 50 mg PO DAILY PRN PRN Reason: Migraine Headache Last Admin: 05/26/24 04:43 Dose: 50 mg Trazodone HCl (Trazodone Hcl 50 Mg Tablet) 50 mg PO BEDTIME [facility] Last Admin: 05/28/24 20:09 Dose: 50 mg Trazodone HCl (Trazodone Hcl 50 Mg Tablet) 50 mg PO BEDTIME MRX1 PRN PRN Reason: Insomnia Last Admin: 05/18/24 22:58 Dose: 50 mg Vitamin D (Cholecalciferol (Vitamin D3) 25 Mcg Tablet) 50 mcg PO DAILY [facility] Last Admin: 05/29/24 08:57 Dose: 50 mcg Allergies Allergies Allergy/AdvReac Type Severity Reaction Status Date / Time Sulfa (Sulfonamide Allergy Severe Itching Verified 05/16/24 19:20 Antibiotics) codeine [CODEINE] Allergy Intermediate ITCHING Verified 05/16/24 19:20 hydroxychloroquine Allergy Intermediate VOMITING Verified 05/16/24 19:20 [From PLAQUENIL] morphine [MORPHINE] Allergy Intermediate ITCHING Verified 05/16/24 19:20 Estrogens Allergy Mild Unknown Verified 05/16/24 19:20 levothyroxine sodium Allergy Unknown rash,throat Verified 05/16/24 19:20 closes prednisone Allergy Unknown Unknown Verified 05/16/24 19:20 Corticosteroids AdvReac Severe DIFFICULTY Verified 05/16/24 19:20 (Glucocorticoids) BREATHING [CORTICOSTEROIDS (GLUCOCORTICOIDS)] escitalopram [From Lexapro] AdvReac Severe seizure Verified 05/16/24 19:20 meloxicam AdvReac Severe Gastrointestinal Verified 05/16/24 19:20 Upset tadalafil [From Cialis] AdvReac Intermediate Nausea and Verified 05/16/24 19:20 Vomiting acetaminophen [Percocet] AdvReac Unknown Unknown Verified 05/16/24 19:20 duloxetine AdvReac Unknown Unknown Verified 05/16/24 19:20 fluconazole AdvReac Unknown Itch, pain, Verified 05/16/24 19:20 Assessment & Plan Assessment & Plan (1) Bipolar depression: Status: Acute Code(s): F31.9 - Bipolar disorder, unspecified (2) PTSD (post-traumatic stress disorder): Status: Acute Code(s): F43.10 - Post-traumatic stress disorder, unspecified Plan The patient is a middle-aged black female with a past history of bipolar disorder who had been depressed with suicidal ideation for the last weeks. The patient had been admitted before and she had had traumatic experiences in the past with signs and symptoms compatible with PTSD. The patient overdosed on medications a few days ago but so far she is medically cleared. Plan 05/24 continue tx. 05/25 continue plan of care 05/26 continue tx monitor constipation 05/27 we are going to increase Lamictal up to 25 mg p.o. b.i.d.. Also we are going to contact Neurology. We are keeping Zyprexa 2.5 p.o. q.h.s. and Wellbutrin for depression. 05/28 keep same treatment, we are going to titrate Lamictal the day after tomorrow. Tomorrow we will increase Zyprexa to 5 mg p.o. q.h.s. to target mood lability. 05/29 Lamictal 50 mg p.o. b.i.d. and Zyprexa 5 p.o. q.h.s.. Family meeting done with her daughter and psychoeducation into her condition was provided. Reason for continued inpatient stay Substantial Risk for: inability to function, rapid decompensation and med/psych decompensation Time Spent With Patient Time: Total time managing care of this patient today __20__ minutes.
[2024-05-29] MEDS: hydrOXYzine HCL 25 MG TABLET PO (17:55)
--- NOTE | 2024-05-29 18:02 | PC.NURSE ---
Patient put herself on the floor [id number], VS within normal limits 97.1-88-131/74-99% PRN hydroxyzine 25 mg administered.
[2024-05-29 20:00] VITALS: BP 139/63; PULSE 87; RESP 18; TEMP 36.8; O2SAT 98
[2024-05-29] MEDS: traZODone HCL 50 MG TABLET PO (20:39)
[2024-05-29] MEDS: Prazosin HCL 1 MG CAPSULE PO (20:40)
[2024-05-29] MEDS: OLANZapine 5 MG TABLET PO (20:40)
[2024-05-30] MEDS: hydrOXYzine HCL 25 MG TABLET PO ×2 (02:06→20:36)
[2024-05-30] MEDS: SUMAtriptan succinate 50 MG TABLET PO (02:06)
[2024-05-30] MEDS: SYNTHROID 50 MCG 50 EACH PO (06:28)
[2024-05-30 08:00] VITALS: BP 120/67; PULSE 81; RESP 16; TEMP 36; O2SAT 97
[2024-05-30] MEDS: lamoTRIgine 25 MG TABLET 50 MG PO ×2 (08:53→20:36)
[2024-05-30] MEDS: Cholecalciferol (Vitamin D3) 25 MCG TABLET 50 MCG PO (08:53)
[2024-05-30] MEDS: Famotidine 20 MG TABLET 40 MG PO ×2 (08:53→20:38)
[2024-05-30] MEDS: clonazePAM 1 MG TABLET PO ×3 (08:53→20:36)
[2024-05-30] MEDS: buPROPion HCl XL 150 MG TAB.ER.24H PO (08:53)
[2024-05-30] MEDS: Gabapentin 300 MG CAPSULE PO ×3 (08:53→20:36)
[2024-05-30] MEDS: LIFITEGRAST 5% 1 EACH EYE-BOTH ×2 (09:20→23:09)
[2024-05-30] MEDS: Lidocaine 4 % Patch ADH..PATCH 2 PATCH TRANSDERMA (12:08)
[2024-05-30 14:55] VITALS: BMI 21.0
--- NOTE | 2024-05-30 16:07 | HO.PSYCHPN ---
Subjective Subjective Date of Service: 05/30/24 Reason For Visit: SI Interim History: The nursing staff reported the patient slept at night and she put herself on the floor in the evening. She was anxious slept 6 hours. The social insurance adviser reported that we had a meeting her daughters and apparently they are going to be problems with housing later on. On interview the patient complained of pain, we are going to keep on Zyprexa 5 p.o. q.h.s. and Lamictal 50 b.i.d. Mental Status Exam Mental Status Exam Patient Appearance: Appropriate Patient Orientation: Person and Situation Level of Consciousness: Awake and Appropriate Patient Behavior: Guarded and Passive Mood Description: Withdrawn and Constricted Affect Description: Constricted Patient Cognition Impaired: Yes Ability to Follow Directions: Good Speech Pattern: Clear Hallucinations: None Delusions: Not Present Thought Process: [place] and Distracted Thought Content: positive for [place] Judgement: Poor Diagnostics Vital Signs (24Hr): Vital Signs - 24 hr 05/29/24 20:00 05/30/24 08:00 Temperature 98.3 F 96.8 F Pulse Rate 87 81 Respiratory Rate 18 16 Blood Pressure 139/63 120/67 Pulse Oximetry 98 97 Oxygen Delivery Method Room Air Room Air BMI result Body Mass Index 21.0 Labs 05/16/24 19:53 05/18/24 15:34 Medications Medications Current Medications Al Hydroxide/Mg Hydroxide (Magnesium Hydrox/Alum Hydrox 30 Ml Oral.Susp) 30 ml PO Q6H PRN PRN Reason: Heartburn/Nausea Albuterol Sulfate (Albuterol Sulfate 90 Mcg 8 Gm Inhaler) 2 puff INHALE Q6H PRN PRN Reason: for wheezing Bisacodyl (Bisacodyl 5 Mg Tablet.Dr) 10 mg PO DAILY PRN PRN Reason: Constipation Last Admin: 05/26/24 14:17 Dose: 10 mg Bupropion HCl (Bupropion Hcl Xl 150 Mg Tab.Er.24h) 150 mg PO DAILY [facility] Last Admin: 05/30/24 08:53 Dose: 150 mg Clonazepam (Clonazepam 1 Mg Tablet) 1 mg PO TID [facility] Last Admin: 05/30/24 14:37 Dose: 1 mg Famotidine (Famotidine 20 Mg Tablet) 40 mg PO BID [facility] Last Admin: 05/30/24 08:53 Dose: 40 mg Gabapentin (Gabapentin 300 Mg Capsule) 300 mg PO TID [facility] Last Admin: 05/30/24 14:32 Dose: 300 mg Hydroxyzine HCl (Hydroxyzine Hcl 25 Mg Tablet) 25 mg PO Q6H PRN PRN Reason: Anxiety Last Admin: 05/30/24 02:06 Dose: 25 mg Lamotrigine (Lamotrigine 25 Mg Tablet) 50 mg PO BID [facility] Last Admin: 05/30/24 08:53 Dose: 50 mg Lidocaine (Lidocaine 4 % Patch Adh..Patch) 2 patch TRANSDERMA DAILY [facility]; Protocol Pt Own (Lifitegrast [Xiidra] 5 % Dropperette) 1 drop EYE-BOTH BID [facility] Last Admin: 05/30/24 09:20 Dose: 1 drop Pt Own (Synthroid (50 Mcg Tablet)) 50 mcg PO DAILY@0600 [facility] Last Admin: 05/30/24 06:28 Dose: 50 mcg Olanzapine (Olanzapine 5 Mg Tablet) 5 mg PO BEDTIME [facility] Last Admin: 05/29/24 20:40 Dose: 5 mg Ondansetron HCl (Ondansetron Odt 4 Mg Tab.Rapdis) 4 mg TRANSLINGU Q8H PRN PRN Reason: Nausea and Vomiting Last Admin: 05/22/24 11:24 Dose: 4 mg Polyethylene Glycol (Polyethylene Glycol 3350 17 Gm Powd.Pack) 17 gm PO DAILY PRN PRN Reason: Constipation Last Admin: 05/26/24 08:40 Dose: 17 gm Prazosin HCl (Prazosin Hcl 1 Mg Capsule) 1 mg PO BEDTIME [facility]; Protocol Last Admin: 05/29/24 20:40 Dose: 1 mg Simethicone (Simethicone 80 Mg Tab.Chew) 160 mg PO QID PRN PRN Reason: Gas Last Admin: 05/26/24 14:18 Dose: 160 mg Sumatriptan Succinate (Sumatriptan Succinate 50 Mg Tablet) 50 mg PO DAILY PRN PRN Reason: Migraine Headache Last Admin: 05/30/24 02:06 Dose: 50 mg Trazodone HCl (Trazodone Hcl 50 Mg Tablet) 50 mg PO BEDTIME [facility] Last Admin: 05/29/24 20:39 Dose: 50 mg Trazodone HCl (Trazodone Hcl 50 Mg Tablet) 50 mg PO BEDTIME MRX1 PRN PRN Reason: Insomnia Last Admin: 05/18/24 22:58 Dose: 50 mg Vitamin D (Cholecalciferol (Vitamin D3) 25 Mcg Tablet) 50 mcg PO DAILY [facility] Last Admin: 05/30/24 08:53 Dose: 50 mcg Allergies Allergies Allergy/AdvReac Type Severity Reaction Status Date / Time Sulfa (Sulfonamide Allergy Severe Itching Verified 05/16/24 19:20 Antibiotics) codeine [CODEINE] Allergy Intermediate ITCHING Verified 05/16/24 19:20 hydroxychloroquine Allergy Intermediate VOMITING Verified 05/16/24 19:20 [From PLAQUENIL] morphine [MORPHINE] Allergy Intermediate ITCHING Verified 05/16/24 19:20 Estrogens Allergy Mild Unknown Verified 05/16/24 19:20 levothyroxine sodium Allergy Unknown rash,throat Verified 05/16/24 19:20 closes prednisone Allergy Unknown Unknown Verified 05/16/24 19:20 Corticosteroids AdvReac Severe DIFFICULTY Verified 05/16/24 19:20 (Glucocorticoids) BREATHING [CORTICOSTEROIDS (GLUCOCORTICOIDS)] escitalopram [From Lexapro] AdvReac Severe seizure Verified 05/16/24 19:20 meloxicam AdvReac Severe Gastrointestinal Verified 05/16/24 19:20 Upset tadalafil [From Cialis] AdvReac Intermediate Nausea and Verified 05/16/24 19:20 Vomiting acetaminophen [Percocet] AdvReac Unknown Unknown Verified 05/16/24 19:20 duloxetine AdvReac Unknown Unknown Verified 05/16/24 19:20 fluconazole AdvReac Unknown Itch, pain, Verified 05/16/24 19:20 Assessment & Plan Assessment & Plan (1) Bipolar depression: Status: Acute Code(s): F31.9 - Bipolar disorder, unspecified (2) PTSD (post-traumatic stress disorder): Status: Acute Code(s): F43.10 - Post-traumatic stress disorder, unspecified Plan The patient is a middle-aged black female with a past history of bipolar disorder who had been depressed with suicidal ideation for the last weeks. The patient had been admitted before and she had had traumatic experiences in the past with signs and symptoms compatible with PTSD. The patient overdosed on medications a few days ago but so far she is medically cleared. Plan 05/24 continue tx. 05/25 continue plan of care 05/26 continue tx monitor constipation 05/27 we are going to increase Lamictal up to 25 mg p.o. b.i.d.. Also we are going to contact Neurology. We are keeping Zyprexa 2.5 p.o. q.h.s. and Wellbutrin for depression. 05/28 keep same treatment, we are going to titrate Lamictal the day after tomorrow. Tomorrow we will increase Zyprexa to 5 mg p.o. q.h.s. to target mood lability. 05/29 Lamictal 50 mg p.o. b.i.d. and Zyprexa 5 p.o. q.h.s.. Family meeting done with her daughter and psychoeducation into her condition was provided. 05/30 keep on the same doses rhino Reason for continued inpatient stay Substantial Risk for: inability to function, rapid decompensation and med/psych decompensation Time Spent With Patient Time: Total time managing care of this patient today __20__ minutes.
[2024-05-30 20:00] VITALS: BP 130/61; PULSE 83; RESP 17; TEMP 36.6; O2SAT 98
[2024-05-30] MEDS: traZODone HCL 50 MG TABLET PO (20:36)
[2024-05-30] MEDS: OLANZapine 5 MG TABLET PO (20:36)
[2024-05-30 20:37] VITALS: BP 130/61
[2024-05-30] MEDS: Prazosin HCL 1 MG CAPSULE PO (20:37)
[2024-05-31] MEDS: SYNTHROID 50 MCG 50 EACH PO (05:44)
[2024-05-31 08:00] VITALS: BP 132/67; PULSE 67; TEMP 36.6; O2SAT 97
[2024-05-31] MEDS: buPROPion HCl XL 150 MG TAB.ER.24H PO (08:20)
[2024-05-31] MEDS: clonazePAM 1 MG TABLET PO ×3 (08:21→20:40)
[2024-05-31] MEDS: Famotidine 20 MG TABLET 40 MG PO ×2 (08:21→20:39)
[2024-05-31] MEDS: lamoTRIgine 25 MG TABLET 50 MG PO ×2 (08:22→20:40)
[2024-05-31] MEDS: Gabapentin 300 MG CAPSULE PO ×3 (08:22→20:39)
[2024-05-31] MEDS: Cholecalciferol (Vitamin D3) 25 MCG TABLET 50 MCG PO (08:23)
[2024-05-31] MEDS: Lidocaine 4 % Patch ADH..PATCH 2 PATCH TRANSDERMA (08:27)
--- NOTE | 2024-05-31 13:43 | HO.PSYCHPN ---
Subjective Subjective Date of Service: 05/31/24 Reason For Visit: SI Subjective Notes: Conditional Voluntary Interim History: The nursing staff reported the patient had been attention seeking, she reports better sleep in the last days but still with episodes of restlessness. On interview the patient was complaining about a fall that she had but there is no evidence according to the nursing staff. We are going to increase her Zyprexa to 7.5 p.o. q.h.s. to target mood lability. Mental Status Exam Mental Status Exam Patient Appearance: Appropriate Patient Orientation: Person and Situation Level of Consciousness: Awake and Appropriate Patient Behavior: Guarded and Passive Mood Description: Withdrawn Affect Description: Constricted Patient Cognition Impaired: Yes Ability to Follow Directions: Good Speech Pattern: Clear Hallucinations: None Delusions: Ideas of Reference Thought Process: Distracted and Slowed Thinking Thought Content: positive for [place] and positive for Poverty of Content Judgement: Fair Diagnostics Vital Signs (24Hr): Vital Signs - 24 hr 05/30/24 20:00 05/30/24 20:37 05/31/24 08:00 Temperature 97.9 F 97.8 F Pulse Rate 83 67 Respiratory Rate 17 Blood Pressure 130/61 130/61 132/67 Pulse Oximetry 98 97 Oxygen Delivery Method Room Air Room Air BMI result Body Mass Index 21.0 Labs 05/16/24 19:53 05/18/24 15:34 Medications Medications Current Medications Al Hydroxide/Mg Hydroxide (Magnesium Hydrox/Alum Hydrox 30 Ml Oral.Susp) 30 ml PO Q6H PRN PRN Reason: Heartburn/Nausea Albuterol Sulfate (Albuterol Sulfate 90 Mcg 8 Gm Inhaler) 2 puff INHALE Q6H PRN PRN Reason: for wheezing Bisacodyl (Bisacodyl 5 Mg Tablet.Dr) 10 mg PO DAILY PRN PRN Reason: Constipation Last Admin: 05/26/24 14:17 Dose: 10 mg Bupropion HCl (Bupropion Hcl Xl 150 Mg Tab.Er.24h) 150 mg PO DAILY COUNTS [facility]CLUDE 234 BEDS AT THE [facility] Last Admin: 05/31/24 08:20 Dose: 150 mg Clonazepam (Clonazepam 1 Mg Tablet) 1 mg PO TID COUNTS INCLUDE 234 BEDS AT THE [facility] Last Admin: 05/31/24 08:21 Dose: 1 mg Famotidine (Famotidine 20 Mg Tablet) 40 mg PO BID COUNTS INCLUDE 234 BEDS AT THE [facility] Last Admin: 05/31/24 08:21 Dose: 40 mg Gabapentin (Gabapentin 300 Mg Capsule) 300 mg PO TID COUNTS INCLUDE 234 BEDS AT THE [facility] Last Admin: 05/31/24 08:22 Dose: 300 mg Hydroxyzine HCl (Hydroxyzine Hcl 25 Mg Tablet) 25 mg PO Q6H PRN PRN Reason: Anxiety Last Admin: 05/30/24 20:36 Dose: 25 mg Lamotrigine (Lamotrigine 25 Mg Tablet) 50 mg PO BID COUNTS INCLUDE 234 BEDS AT THE [facility] Last Admin: 05/31/24 08:22 Dose: 50 mg Lidocaine (Lidocaine 4 % Patch Adh..Patch) 2 patch TRANSDERMA DAILY COUNTS INCLUDE 234 BEDS AT THE [facility]; Protocol Last Admin: 05/31/24 08:27 Dose: 2 patch Pt Own (Lifitegrast [Xiidra] 5 % Dropperette) 1 drop EYE-BOTH BID COUNTS INCLUDE 234 BEDS AT THE [facility] Last Admin: 05/30/24 23:09 Dose: 1 drop Pt Own (Synthroid (50 Mcg Tablet)) 50 mcg PO DAILY@0600 COUNTS INCLUDE 234 BEDS AT THE [facility] Last Admin: 05/31/24 05:44 Dose: 50 mcg Olanzapine (Olanzapine 7.5 Mg Tablet) 7.5 mg PO BEDTIME COUNTS INCLUDE 234 BEDS AT THE [facility] Ondansetron HCl (Ondansetron Odt 4 Mg Tab.Rapdis) 4 mg TRANSLINGU Q8H PRN PRN Reason: Nausea and Vomiting Last Admin: 05/22/24 11:24 Dose: 4 mg Polyethylene Glycol (Polyethylene Glycol 3350 17 Gm Powd.Pack) 17 gm PO DAILY PRN PRN Reason: Constipation Last Admin: 05/26/24 08:40 Dose: 17 gm Prazosin HCl (Prazosin Hcl 1 Mg Capsule) 1 mg PO BEDTIME COUNTS INCLUDE 234 BEDS AT THE [facility]; Protocol Last Admin: 05/30/24 20:37 Dose: 1 mg Simethicone (Simethicone 80 Mg Tab.Chew) 160 mg PO QID PRN PRN Reason: Gas Last Admin: 05/26/24 14:18 Dose: 160 mg Sumatriptan Succinate (Sumatriptan Succinate 50 Mg Tablet) 50 mg PO DAILY PRN PRN Reason: Migraine Headache Last Admin: 05/30/24 02:06 Dose: 50 mg Trazodone HCl (Trazodone Hcl 50 Mg Tablet) 50 mg PO BEDTIME [facility] Last Admin: 05/30/24 20:36 Dose: 50 mg Trazodone HCl (Trazodone Hcl 50 Mg Tablet) 50 mg PO BEDTIME MRX1 PRN PRN Reason: Insomnia Last Admin: 05/18/24 22:58 Dose: 50 mg Vitamin D (Cholecalciferol (Vitamin D3) 25 Mcg Tablet) 50 mcg PO DAILY [facility] Last Admin: 05/31/24 08:23 Dose: 50 mcg Allergies Allergies Allergy/AdvReac Type Severity Reaction Status Date / Time Sulfa (Sulfonamide Allergy Severe Itching Verified 05/16/24 19:20 Antibiotics) codeine [CODEINE] Allergy Intermediate ITCHING Verified 05/16/24 19:20 hydroxychloroquine Allergy Intermediate VOMITING Verified 05/16/24 19:20 [From PLAQUENIL] morphine [MORPHINE] Allergy Intermediate ITCHING Verified 05/16/24 19:20 Estrogens Allergy Mild Unknown Verified 05/16/24 19:20 levothyroxine sodium Allergy Unknown rash,throat Verified 05/16/24 19:20 closes prednisone Allergy Unknown Unknown Verified 05/16/24 19:20 Corticosteroids AdvReac Severe DIFFICULTY Verified 05/16/24 19:20 (Glucocorticoids) BREATHING [CORTICOSTEROIDS (GLUCOCORTICOIDS)] escitalopram [From Lexapro] AdvReac Severe seizure Verified 05/16/24 19:20 meloxicam AdvReac Severe Gastrointestinal Verified 05/16/24 19:20 Upset tadalafil [From Cialis] AdvReac Intermediate Nausea and Verified 05/16/24 19:20 Vomiting acetaminophen [Percocet] AdvReac Unknown Unknown Verified 05/16/24 19:20 duloxetine AdvReac Unknown Unknown Verified 05/16/24 19:20 fluconazole AdvReac Unknown Itch, pain, Verified 05/16/24 19:20 Assessment & Plan Assessment & Plan (1) Bipolar depression: Status: Acute Code(s): F31.9 - Bipolar disorder, unspecified (2) PTSD (post-traumatic stress disorder): Status: Acute Code(s): F43.10 - Post-traumatic stress disorder, unspecified Plan The patient is a middle-aged black female with a past history of bipolar disorder who had been depressed with suicidal ideation for the last weeks. The patient had been admitted before and she had had traumatic experiences in the past with signs and symptoms compatible with PTSD. The patient overdosed on medications a few days ago but so far she is medically cleared. Plan 05/24 continue tx. 05/25 continue plan of care 05/26 continue tx monitor constipation 05/27 we are going to increase Lamictal up to 25 mg p.o. b.i.d.. Also we are going to contact Neurology. We are keeping Zyprexa 2.5 p.o. q.h.s. and Wellbutrin for depression. 05/28 keep same treatment, we are going to titrate Lamictal the day after tomorrow. Tomorrow we will increase Zyprexa to 5 mg p.o. q.h.s. to target mood lability. 05/29 Lamictal 50 mg p.o. b.i.d. and Zyprexa 5 p.o. q.h.s.. Family meeting done with her daughter and psychoeducation into her condition was provided. 05/30 keep on the same doses 05/31 increase Zyprexa to 7.5 p.o. q.h.s. Reason for continued inpatient stay Substantial Risk for: inability to function, rapid decompensation and med/psych decompensation Time Spent With Patient Time: Total time managing care of this patient today _20___ minutes.
[2024-05-31] MEDS: LIFITEGRAST 5% 1 EACH EYE-BOTH ×2 (14:04→20:50)
[2024-05-31 20:00] VITALS: BP 131/79; PULSE 91; RESP 18; TEMP 36.7; O2SAT 100
[2024-05-31 20:39] VITALS: BP 131/79
[2024-05-31] MEDS: Prazosin HCL 1 MG CAPSULE PO (20:39)
[2024-05-31] MEDS: traZODone HCL 50 MG TABLET PO (20:39)
[2024-05-31] MEDS: OLANZapine 7.5 MG TABLET PO (20:40)
[2024-06-01] MEDS: SYNTHROID 50 MCG 50 EACH PO (05:40)
[2024-06-01 08:00] VITALS: BP 137/67; PULSE 81; RESP 18; TEMP 36.8; O2SAT 99
[2024-06-01] MEDS: Famotidine 20 MG TABLET 40 MG PO ×2 (08:56→20:35)
[2024-06-01] MEDS: Cholecalciferol (Vitamin D3) 25 MCG TABLET 50 MCG PO (08:56)
[2024-06-01] MEDS: Gabapentin 300 MG CAPSULE PO ×3 (08:56→20:36)
[2024-06-01] MEDS: lamoTRIgine 25 MG TABLET 50 MG PO ×2 (08:56→20:35)
[2024-06-01] MEDS: buPROPion HCl XL 150 MG TAB.ER.24H PO (08:56)
[2024-06-01] MEDS: clonazePAM 1 MG TABLET PO ×3 (08:56→20:37)
[2024-06-01] MEDS: Lidocaine 4 % Patch ADH..PATCH 2 PATCH TRANSDERMA (09:00)
[2024-06-01] MEDS: LIFITEGRAST 5% 1 EACH EYE-BOTH ×2 (09:11→20:39)
--- NOTE | 2024-06-01 14:10 | PC.NURSE ---
Patient lowered herself to the ground, got back to bed with minimal assistance.
--- NOTE | 2024-06-01 17:49 | P.PNPSI_ITS ---
Subjective Subjective Date of Service: 06/01/24 Reason For Visit: SI Subjective Notes: Conditional Voluntary Interim History: Patient anxious and withdrawn reportedly intermittently dramatic and attention seeking. Patient has been depressed and tearful Medication Compliance: Yes Mental Status Exam Mental Status Exam Patient Appearance: Appropriate Patient Orientation: Person, Place and Situation Level of Consciousness: Awake and Appropriate Patient Behavior: Guarded and Passive Mood Description: Withdrawn and Depressed Affect Description: Constricted Patient Cognition Impaired: Yes Ability to Follow Directions: Good Speech Pattern: Clear Hallucinations: None Delusions: Ideas of Reference Thought Process: Distracted and Slowed Thinking Thought Content: positive for [place] and positive for Poverty of Content Depressive Symptoms: Thoughts of /Suicide Judgement: Fair Diagnostics Vital Signs (24Hr): Vital Signs - 24 hr 05/31/24 20:00 05/31/24 20:39 06/01/24 08:00 Temperature 98.0 F 98.2 F Pulse Rate 91 81 Respiratory Rate 18 18 Blood Pressure 131/79 131/79 137/67 Pulse Oximetry 100 99 Oxygen Delivery Method Room Air Room Air BMI result Body Mass Index 21.0 Labs 05/16/24 19:53 05/18/24 15:34 Medications Medications Current Medications Al Hydroxide/Mg Hydroxide (Magnesium Hydrox/Alum Hydrox 30 Ml Oral.Susp) 30 ml PO Q6H PRN PRN Reason: Heartburn/Nausea Albuterol Sulfate (Albuterol Sulfate 90 Mcg 8 Gm Inhaler) 2 puff INHALE Q6H PRN PRN Reason: for wheezing Bisacodyl (Bisacodyl 5 Mg Tablet.Dr) 10 mg PO DAILY PRN PRN Reason: Constipation Last Admin: 05/26/24 14:17 Dose: 10 mg Bupropion HCl (Bupropion Hcl Xl 150 Mg Tab.Er.24h) 150 mg PO DAILY [facility] Last Admin: 06/01/24 08:56 Dose: 150 mg Clonazepam (Clonazepam 1 Mg Tablet) 1 mg PO TID [facility] Last Admin: 06/01/24 15:28 Dose: 1 mg Famotidine (Famotidine 20 Mg Tablet) 40 mg PO BID [facility] Last Admin: 06/01/24 08:56 Dose: 40 mg Gabapentin (Gabapentin 300 Mg Capsule) 300 mg PO TID [facility] Last Admin: 06/01/24 15:28 Dose: 300 mg Hydroxyzine HCl (Hydroxyzine Hcl 25 Mg Tablet) 25 mg PO Q6H PRN PRN Reason: Anxiety Last Admin: 05/30/24 20:36 Dose: 25 mg Lamotrigine (Lamotrigine 25 Mg Tablet) 50 mg PO BID [facility] Last Admin: 06/01/24 08:56 Dose: 50 mg Lidocaine (Lidocaine 4 % Patch Adh..Patch) 2 patch TRANSDERMA DAILY [facility]; Protocol Last Admin: 06/01/24 09:00 Dose: 2 patch Pt Own (Lifitegrast [Xiidra] 5 % Dropperette) 1 drop EYE-BOTH BID [facility] Last Admin: 06/01/24 09:11 Dose: 1 drop Pt Own (Synthroid (50 Mcg Tablet)) 50 mcg PO DAILY@0600 [facility] Last Admin: 06/01/24 05:40 Dose: 50 mcg Olanzapine (Olanzapine 7.5 Mg Tablet) 7.5 mg PO BEDTIME [facility] Last Admin: 05/31/24 20:40 Dose: 7.5 mg Ondansetron HCl (Ondansetron Odt 4 Mg Tab.Rapdis) 4 mg TRANSLINGU Q8H PRN PRN Reason: Nausea and Vomiting Last Admin: 05/22/24 11:24 Dose: 4 mg Polyethylene Glycol (Polyethylene Glycol 3350 17 Gm Powd.Pack) 17 gm PO DAILY PRN PRN Reason: Constipation Last Admin: 05/26/24 08:40 Dose: 17 gm Prazosin HCl (Prazosin Hcl 1 Mg Capsule) 1 mg PO BEDTIME [facility]; Protocol Last Admin: 05/31/24 20:39 Dose: 1 mg Simethicone (Simethicone 80 Mg Tab.Chew) 160 mg PO QID PRN PRN Reason: Gas Last Admin: 05/26/24 14:18 Dose: 160 mg Sumatriptan Succinate (Sumatriptan Succinate 50 Mg Tablet) 50 mg PO DAILY PRN PRN Reason: Migraine Headache Last Admin: 05/30/24 02:06 Dose: 50 mg Trazodone HCl (Trazodone Hcl 50 Mg Tablet) 50 mg PO BEDTIME [facility] Last Admin: 05/31/24 20:39 Dose: 50 mg Trazodone HCl (Trazodone Hcl 50 Mg Tablet) 50 mg PO BEDTIME MRX1 PRN PRN Reason: Insomnia Last Admin: 05/18/24 22:58 Dose: 50 mg Vitamin D (Cholecalciferol (Vitamin D3) 25 Mcg Tablet) 50 mcg PO DAILY [facility] Last Admin: 06/01/24 08:56 Dose: 50 mcg Allergies Allergies Allergy/AdvReac Type Severity Reaction Status Date / Time Sulfa (Sulfonamide Allergy Severe Itching Verified 05/16/24 19:20 Antibiotics) codeine [CODEINE] Allergy Intermediate ITCHING Verified 05/16/24 19:20 hydroxychloroquine Allergy Intermediate VOMITING Verified 05/16/24 19:20 [From PLAQUENIL] morphine [MORPHINE] Allergy Intermediate ITCHING Verified 05/16/24 19:20 Estrogens Allergy Mild Unknown Verified 05/16/24 19:20 levothyroxine sodium Allergy Unknown rash,throat Verified 05/16/24 19:20 closes prednisone Allergy Unknown Unknown Verified 05/16/24 19:20 Corticosteroids AdvReac Severe DIFFICULTY Verified 05/16/24 19:20 (Glucocorticoids) BREATHING [CORTICOSTEROIDS (GLUCOCORTICOIDS)] escitalopram [From Lexapro] AdvReac Severe seizure Verified 05/16/24 19:20 meloxicam AdvReac Severe Gastrointestinal Verified 05/16/24 19:20 Upset tadalafil [From Cialis] AdvReac Intermediate Nausea and Verified 05/16/24 19:20 Vomiting acetaminophen [Percocet] AdvReac Unknown Unknown Verified 05/16/24 19:20 duloxetine AdvReac Unknown Unknown Verified 05/16/24 19:20 fluconazole AdvReac Unknown Itch, pain, Verified 05/16/24 19:20 Assessment & Plan Assessment & Plan (1) Bipolar depression: Status: Acute Code(s): F31.9 - Bipolar disorder, unspecified (2) PTSD (post-traumatic stress disorder): Status: Acute Code(s): F43.10 - Post-traumatic stress disorder, unspecified Plan The patient is a middle-aged black female with a past history of bipolar disorder who had been depressed with suicidal ideation for the last weeks. The patient had been admitted before and she had had traumatic experiences in the past with signs and symptoms compatible with PTSD. The patient overdosed on medications a few days ago but so far she is medically cleared. Plan 05/24 continue tx. 05/25 continue plan of care 05/26 continue tx monitor constipation 05/27 we are going to increase Lamictal up to 25 mg p.o. b.i.d.. Also we are going to contact Neurology. We are keeping Zyprexa 2.5 p.o. q.h.s. and Wellbutrin for depression. 05/28 keep same treatment, we are going to titrate Lamictal the day after tomorrow. Tomorrow we will increase Zyprexa to 5 mg p.o. q.h.s. to target mood lability. 05/29 Lamictal 50 mg p.o. b.i.d. and Zyprexa 5 p.o. q.h.s.. Family meeting done with her daughter and psychoeducation into her condition was provided. 05/30 keep on the same doses 05/31 increase Zyprexa to 7.5 p.o. q.h.s. 06/01/24 The pt has had previous good response to ect in 2019 6 rul tx. pt quite depressed hopeless helpless passive si consider vyralar latuda if does not stabilize ? bipolar dep sig ptsd Patient educated on: medication risk/benefits Informed Consent: further education needed Reason for continued inpatient stay Substantial Risk for: harm to self and rapid decompensation Time Spent With Patient Time: Total time managing care of this patient today ____ minutes.
[2024-06-01 20:00] VITALS: BP 120/60; PULSE 95; RESP 16; TEMP 36.9; O2SAT 98
[2024-06-01 20:36] VITALS: BP 120/68
[2024-06-01] MEDS: Prazosin HCL 1 MG CAPSULE PO (20:36)
[2024-06-01] MEDS: traZODone HCL 50 MG TABLET PO (20:37)
[2024-06-01] MEDS: OLANZapine 7.5 MG TABLET PO (20:37)
[2024-06-01] MEDS: hydrOXYzine HCL 25 MG TABLET PO (20:38)
[2024-06-02] MEDS: SYNTHROID 50 MCG 50 EACH PO (06:30)
[2024-06-02 08:00] VITALS: BP 103/60; PULSE 99; RESP 16; TEMP 36.2; O2SAT 97
[2024-06-02] MEDS: clonazePAM 1 MG TABLET PO ×3 (08:42→20:50)
[2024-06-02] MEDS: lamoTRIgine 25 MG TABLET 50 MG PO ×2 (08:42→20:51)
[2024-06-02] MEDS: Gabapentin 300 MG CAPSULE PO ×3 (08:42→20:49)
[2024-06-02] MEDS: buPROPion HCl XL 150 MG TAB.ER.24H PO (08:43)
[2024-06-02] MEDS: Cholecalciferol (Vitamin D3) 25 MCG TABLET 50 MCG PO (08:43)
[2024-06-02] MEDS: Famotidine 20 MG TABLET 40 MG PO ×2 (08:43→20:49)
[2024-06-02] MEDS: LIFITEGRAST 5% 1 EACH EYE-BOTH ×2 (08:46→20:52)
[2024-06-02] MEDS: Lidocaine 4 % Patch ADH..PATCH 2 PATCH TRANSDERMA (08:49)
[2024-06-02 20:00] VITALS: BP 131/86; PULSE 102; RESP 16; TEMP 37.2; O2SAT 98
[2024-06-02] MEDS: Prazosin HCL 1 MG CAPSULE PO (20:49)
[2024-06-02] MEDS: traZODone HCL 50 MG TABLET PO (20:50)
[2024-06-02] MEDS: OLANZapine 7.5 MG TABLET PO (20:50)
[2024-06-02] MEDS: hydrOXYzine HCL 25 MG TABLET PO (20:50)
--- NOTE | 2024-06-02 23:54 | HO.PSYCHPN ---
Subjective Subjective Date of Service: 06/02/24 Reason For Visit: SI Subjective Notes: Conditional Voluntary Interim History: Patient seen she is quite anxious despondent. Has had intermittent anxiety mood instability in the milieu. Cooperative with care Medication Compliance: Yes Mental Status Exam Mental Status Exam Patient Appearance: Appropriate Patient Orientation: Person, Place and Situation Level of Consciousness: Awake and Appropriate Patient Behavior: Appropriate and Cooperative Mood Description: Withdrawn, Depressed and Apprehensive Affect Description: Constricted Patient Cognition Impaired: Yes Ability to Follow Directions: Good Speech Pattern: Clear Hallucinations: None Delusions: Ideas of Reference Thought Process: Rumination Thought Content: positive for [place] and positive for Preoccup[place] Depressive Symptoms: Increased Anxiety and Thoughts of /Suicide Judgement: Fair Diagnostics Vital Signs (24Hr): Vital Signs - 24 hr 06/02/24 08:00 06/02/24 20:00 Temperature 97.2 F 98.9 F Pulse Rate 99 102 H Respiratory Rate 16 16 Blood Pressure 103/60 131/86 Pulse Oximetry 97 98 Oxygen Delivery Method Room Air Room Air BMI result Body Mass Index 21.0 Labs 05/16/24 19:53 05/18/24 15:34 Medications Medications Current Medications Al Hydroxide/Mg Hydroxide (Magnesium Hydrox/Alum Hydrox 30 Ml Oral.Susp) 30 ml PO Q6H PRN PRN Reason: Heartburn/Nausea Albuterol Sulfate (Albuterol Sulfate 90 Mcg 8 Gm Inhaler) 2 puff INHALE Q6H PRN PRN Reason: for wheezing Bisacodyl (Bisacodyl 5 Mg Tablet.Dr) 10 mg PO DAILY PRN PRN Reason: Constipation Last Admin: 05/26/24 14:17 Dose: 10 mg Bupropion HCl (Bupropion Hcl Xl 150 Mg Tab.Er.24h) 150 mg PO DAILY [facility] [place] Last Admin: 06/02/24 08:43 Dose: 150 mg Clonazepam (Clonazepam 1 Mg Tablet) 1 mg PO TID [facility] Last Admin: 06/02/24 20:50 Dose: 1 mg Famotidine (Famotidine 20 Mg Tablet) 40 mg PO BID [facility] [place] Last Admin: 06/02/24 20:49 Dose: 40 mg Gabapentin (Gabapentin 300 Mg Capsule) 300 mg PO TID [facility] Last Admin: 06/02/24 20:49 Dose: 300 mg Hydroxyzine HCl (Hydroxyzine Hcl 25 Mg Tablet) 25 mg PO Q6H PRN PRN Reason: Anxiety Last Admin: 06/02/24 20:50 Dose: 25 mg Lamotrigine (Lamotrigine 25 Mg Tablet) 50 mg PO BID [facility] [place] Last Admin: 06/02/24 20:51 Dose: 50 mg Lidocaine (Lidocaine 4 % Patch Adh..Patch) 2 patch TRANSDERMA DAILY [facility]; Protocol Last Admin: 06/02/24 08:49 Dose: 2 patch Pt Own (Lifitegrast [Xiidra] 5 % Dropperette) 1 drop EYE-BOTH BID [facility] Last Admin: 06/02/24 20:52 Dose: 1 drop Pt Own (Synthroid (50 Mcg Tablet)) 50 mcg PO DAILY@0600 [facility] [place] Last Admin: 06/02/24 06:30 Dose: 50 mcg Olanzapine (Olanzapine 7.5 Mg Tablet) 7.5 mg PO BEDTIME [facility] [place] Last Admin: 06/02/24 20:50 Dose: 7.5 mg Ondansetron HCl (Ondansetron Odt 4 Mg Tab.Rapdis) 4 mg TRANSLINGU Q8H PRN PRN Reason: Nausea and Vomiting Last Admin: 05/22/24 11:24 Dose: 4 mg Polyethylene Glycol (Polyethylene Glycol 3350 17 Gm Powd.Pack) 17 gm PO DAILY PRN PRN Reason: Constipation Last Admin: 05/26/24 08:40 Dose: 17 gm Prazosin HCl (Prazosin Hcl 1 Mg Capsule) 1 mg PO BEDTIME [facility] [place]; Protocol Last Admin: 06/02/24 20:49 Dose: 1 mg Simethicone (Simethicone 80 Mg Tab.Chew) 160 mg PO QID PRN PRN Reason: Gas Last Admin: 05/26/24 14:18 Dose: 160 mg Sumatriptan Succinate (Sumatriptan Succinate 50 Mg Tablet) 50 mg PO DAILY PRN PRN Reason: Migraine Headache Last Admin: 05/30/24 02:06 Dose: 50 mg Trazodone HCl (Trazodone Hcl 50 Mg Tablet) 50 mg PO BEDTIME [facility] Last Admin: 06/02/24 20:50 Dose: 50 mg Trazodone HCl (Trazodone Hcl 50 Mg Tablet) 50 mg PO BEDTIME MRX1 PRN PRN Reason: Insomnia Last Admin: 05/18/24 22:58 Dose: 50 mg Vitamin D (Cholecalciferol (Vitamin D3) 25 Mcg Tablet) 50 mcg PO DAILY [facility] [place] Last Admin: 06/02/24 08:43 Dose: 50 mcg Allergies Allergies Allergy/AdvReac Type Severity Reaction Status Date / Time Sulfa (Sulfonamide Allergy Severe Itching Verified 05/16/24 19:20 Antibiotics) codeine [CODEINE] Allergy Intermediate ITCHING Verified 05/16/24 19:20 hydroxychloroquine Allergy Intermediate VOMITING Verified 05/16/24 19:20 [From PLAQUENIL] morphine [MORPHINE] Allergy Intermediate ITCHING Verified 05/16/24 19:20 Estrogens Allergy Mild Unknown Verified 05/16/24 19:20 levothyroxine sodium Allergy Unknown rash,throat Verified 05/16/24 19:20 closes prednisone Allergy Unknown Unknown Verified 05/16/24 19:20 Corticosteroids AdvReac Severe DIFFICULTY Verified 05/16/24 19:20 (Glucocorticoids) BREATHING [CORTICOSTEROIDS (GLUCOCORTICOIDS)] escitalopram [From Lexapro] AdvReac Severe seizure Verified 05/16/24 19:20 meloxicam AdvReac Severe Gastrointestinal Verified 05/16/24 19:20 Upset tadalafil [From Cialis] AdvReac Intermediate Nausea and Verified 05/16/24 19:20 Vomiting acetaminophen [Percocet] AdvReac Unknown Unknown Verified 05/16/24 19:20 duloxetine AdvReac Unknown Unknown Verified 05/16/24 19:20 fluconazole AdvReac Unknown Itch, pain, Verified 05/16/24 19:20 Assessment & Plan Assessment & Plan (1) Bipolar depression: Status: Acute Code(s): F31.9 - Bipolar disorder, unspecified (2) PTSD (post-traumatic stress disorder): Status: Acute Code(s): F43.10 - Post-traumatic stress disorder, unspecified Plan The patient is a middle-aged black female with a past history of bipolar disorder who had been depressed with suicidal ideation for the last weeks. The patient had been admitted before and she had had traumatic experiences in the past with signs and symptoms compatible with PTSD. The patient overdosed on medications a few days ago but so far she is medically cleared. Plan 05/24 continue tx. 05/25 continue plan of care 05/26 continue tx monitor constipation 05/27 we are going to increase Lamictal up to 25 mg p.o. b.i.d.. Also we are going to contact Neurology. We are keeping Zyprexa 2.5 p.o. q.h.s. and Wellbutrin for depression. 05/28 keep same treatment, we are going to titrate Lamictal the day after tomorrow. Tomorrow we will increase Zyprexa to 5 mg p.o. q.h.s. to target mood lability. 05/29 Lamictal 50 mg p.o. b.i.d. and Zyprexa 5 p.o. q.h.s.. Family meeting done with her daughter and psychoeducation into her condition was provided. 05/30 keep on the same doses 05/31 increase Zyprexa to 7.5 p.o. q.h.s. 06/01/24 The pt has had previous good response to ect in 2019 6 rul tx. pt quite depressed hopeless helpless passive si consider vyralar latuda if does not stabilize ? bipolar dep sig ptsd 06/02/2024 Question patient with dysarthric speech has history of question lupus no current active treatment. Hopeless helpless needs much reassurance feels rejected by her daughters. No active SI question visual hallucination unclear if patient has had imaging would consider brain imaging check DANA rheumatoid factor sed rate TSH unremarkable. Patient did have a response to ECT in 2019 this could be a potential option. If clear bipolar which is not totally clear to me by history would consider Vraylar Patient educated on: diagnosis, medication risk/benefits and medical condition Informed Consent: further education needed Reason for continued inpatient stay Substantial Risk for: harm to self and rapid decompensation Time Spent With Patient Time: Total time managing care of this patient today _35___ minutes.
[2024-06-03] MEDS: SYNTHROID 50 MCG 50 EACH PO (06:21)
[2024-06-03 08:03] LABS: Erythrocyte Sedimentation Rate 12 MM/HR (0-20)
[2024-06-03 08:18] VITALS: BP 115/65; PULSE 84; RESP 16; TEMP 36.2; O2SAT 97
[2024-06-03 08:39] LABS: Rheumatoid Factor 15.6 IU/mL (<15.0)
[2024-06-03] MEDS: Gabapentin 300 MG CAPSULE PO ×3 (08:50→20:28)
[2024-06-03] MEDS: clonazePAM 1 MG TABLET PO ×3 (08:50→20:29)
[2024-06-03] MEDS: Cholecalciferol (Vitamin D3) 25 MCG TABLET 50 MCG PO (08:50)
[2024-06-03] MEDS: buPROPion HCl XL 150 MG TAB.ER.24H PO (08:50)
[2024-06-03] MEDS: Famotidine 20 MG TABLET 40 MG PO ×2 (08:50→20:29)
[2024-06-03] MEDS: Lidocaine 4 % Patch ADH..PATCH 2 PATCH TRANSDERMA (08:51)
[2024-06-03] MEDS: LIFITEGRAST 5% 1 EACH EYE-BOTH ×2 (08:52→20:34)
[2024-06-03] MEDS: lamoTRIgine 25 MG TABLET 50 MG PO (08:53)
[2024-06-03] MEDS: SUMAtriptan succinate 50 MG TABLET PO (14:44)
--- NOTE | 2024-06-03 14:49 | P.PNPSI_ITS ---
Subjective Subjective Date of Service: 06/03/24 Reason For Visit: SI Subjective Notes: Conditional Voluntary Interim History: The nursing staff reported the patient had been attention seeking irritable at times. She slept 6 hours. On interview the patient was complaining about nursing staff, we are increasing Lamictal up to 100 mg p.o. b.i.d. to target depression. Mental Status Exam Mental Status Exam Patient Appearance: Appropriate Patient Orientation: Person and Situation Level of Consciousness: Awake Patient Behavior: Guarded and Passive Mood Description: Withdrawn Affect Description: Constricted Patient Cognition Impaired: Yes Ability to Follow Directions: Good Speech Pattern: Clear Hallucinations: None Delusions: Ideas of Reference Thought Process: Distracted and Slowed Thinking Thought Content: positive for [place] and positive for Poverty of Content Judgement: Fair Diagnostics Vital Signs (24Hr): Vital Signs - 24 hr 06/02/24 20:00 06/03/24 08:18 Temperature 98.9 F 97.2 F Pulse Rate 102 H 84 Respiratory Rate 16 16 Blood Pressure 131/86 115/65 Pulse Oximetry 98 97 Oxygen Delivery Method Room Air Room Air BMI result Body Mass Index 21.0 Labs 05/16/24 19:53 05/18/24 15:34 Labs: Laboratory Results - last 48 hr 06/03/24 07:11 ESR 12 Rheumatoid Factor 15.6 H Medications Medications Current Medications Al Hydroxide/Mg Hydroxide (Magnesium Hydrox/Alum Hydrox 30 Ml Oral.Susp) 30 ml PO Q6H PRN PRN Reason: Heartburn/Nausea Albuterol Sulfate (Albuterol Sulfate 90 Mcg 8 Gm Inhaler) 2 puff INHALE Q6H PRN PRN Reason: for wheezing Bisacodyl (Bisacodyl 5 Mg Tablet.) 10 mg PO DAILY PRN PRN Reason: Constipation Last Admin: 05/26/24 14:17 Dose: 10 mg Bupropion HCl (Bupropion Hcl Xl 150 Mg Tab.Er.24h) 150 mg PO DAILY [facility] Last Admin: 06/03/24 08:50 Dose: 150 mg Clonazepam (Clonazepam 1 Mg Tablet) 1 mg PO TID [facility] Last Admin: 06/03/24 14:41 Dose: 1 mg Famotidine (Famotidine 20 Mg Tablet) 40 mg PO BID [facility] Last Admin: 06/03/24 08:50 Dose: 40 mg Gabapentin (Gabapentin 300 Mg Capsule) 300 mg PO TID [facility] Last Admin: 06/03/24 14:41 Dose: 300 mg Hydroxyzine HCl (Hydroxyzine Hcl 25 Mg Tablet) 25 mg PO Q6H PRN PRN Reason: Anxiety Last Admin: 06/02/24 20:50 Dose: 25 mg Lamotrigine (Lamotrigine 100 Mg Tablet) 100 mg PO BID [facility] Last Admin: 06/03/24 09:44 Dose: Not Given Lidocaine (Lidocaine 4 % Patch Adh..Patch) 2 patch TRANSDERMA DAILY [facility]; Protocol Last Admin: 06/03/24 08:51 Dose: 2 patch Pt Own (Lifitegrast [Xiidra] 5 % Dropperette) 1 drop EYE-BOTH BID [facility] Last Admin: 06/03/24 08:52 Dose: 1 drop Pt Own (Synthroid (50 Mcg Tablet)) 50 mcg PO DAILY@0600 [facility] Last Admin: 06/03/24 06:21 Dose: 50 mcg Non-Formulary Medication (Cyclosporine [Restasis]) 1 drop EYE-BOTH BID [facility] Olanzapine (Olanzapine 7.5 Mg Tablet) 7.5 mg PO BEDTIME [facility] Last Admin: 06/02/24 20:50 Dose: 7.5 mg Ondansetron HCl (Ondansetron Odt 4 Mg Tab.Rapdis) 4 mg TRANSLINGU Q8H PRN PRN Reason: Nausea and Vomiting Last Admin: 05/22/24 11:24 Dose: 4 mg Oxybutynin Chloride (Oxybutynin Chloride Er 5 Mg Tab.Er.24) 10 mg PO DAILY PRN PRN Reason: OVERACTIVE BLADDER Polyethylene Glycol (Polyethylene Glycol 3350 17 Gm Powd.Pack) 17 gm PO DAILY PRN PRN Reason: Constipation Last Admin: 05/26/24 08:40 Dose: 17 gm Prazosin HCl (Prazosin Hcl 1 Mg Capsule) 1 mg PO BEDTIME [facility]; Protocol Last Admin: 06/02/24 20:49 Dose: 1 mg Simethicone (Simethicone 80 Mg Tab.Chew) 160 mg PO QID PRN PRN Reason: Gas Last Admin: 05/26/24 14:18 Dose: 160 mg Sumatriptan Succinate (Sumatriptan Succinate 50 Mg Tablet) 50 mg PO DAILY PRN PRN Reason: Migraine Headache Last Admin: 06/03/24 14:44 Dose: 50 mg Trazodone HCl (Trazodone Hcl 50 Mg Tablet) 50 mg PO BEDTIME [facility] Last Admin: 06/02/24 20:50 Dose: 50 mg Trazodone HCl (Trazodone Hcl 50 Mg Tablet) 50 mg PO BEDTIME MRX1 PRN PRN Reason: Insomnia Last Admin: 05/18/24 22:58 Dose: 50 mg Vitamin D (Cholecalciferol (Vitamin D3) 25 Mcg Tablet) 50 mcg PO DAILY [facility] Last Admin: 06/03/24 08:50 Dose: 50 mcg Allergies Allergies Allergy/AdvReac Type Severity Reaction Status Date / Time Sulfa (Sulfonamide Allergy Severe Itching Verified 05/16/24 19:20 Antibiotics) codeine [CODEINE] Allergy Intermediate ITCHING Verified 05/16/24 19:20 hydroxychloroquine Allergy Intermediate VOMITING Verified 05/16/24 19:20 [From PLAQUENIL] morphine [MORPHINE] Allergy Intermediate ITCHING Verified 05/16/24 19:20 Estrogens Allergy Mild Unknown Verified 05/16/24 19:20 levothyroxine sodium Allergy Unknown rash,throat Verified 05/16/24 19:20 closes prednisone Allergy Unknown Unknown Verified 05/16/24 19:20 Corticosteroids AdvReac Severe DIFFICULTY Verified 05/16/24 19:20 (Glucocorticoids) BREATHING [CORTICOSTEROIDS (GLUCOCORTICOIDS)] escitalopram [From Lexapro] AdvReac Severe seizure Verified 05/16/24 19:20 meloxicam AdvReac Severe Gastrointestinal Verified 05/16/24 19:20 Upset tadalafil [From Cialis] AdvReac Intermediate Nausea and Verified 05/16/24 19:20 Vomiting acetaminophen [Percocet] AdvReac Unknown Unknown Verified 05/16/24 19:20 duloxetine AdvReac Unknown Unknown Verified 05/16/24 19:20 fluconazole AdvReac Unknown Itch, pain, Verified 05/16/24 19:20 Assessment & Plan Assessment & Plan (1) Bipolar depression: Status: Acute Code(s): F31.9 - Bipolar disorder, unspecified (2) PTSD (post-traumatic stress disorder): Status: Acute Code(s): F43.10 - Post-traumatic stress disorder, unspecified Plan The patient is a middle-aged black female with a past history of bipolar disorder who had been depressed with suicidal ideation for the last weeks. The patient had been admitted before and she had had traumatic experiences in the past with signs and symptoms compatible with PTSD. The patient overdosed on medications a few days ago but so far she is medically cleared. Plan 05/24 continue tx. 05/25 continue plan of care 05/26 continue tx monitor constipation 05/27 we are going to increase Lamictal up to 25 mg p.o. b.i.d.. Also we are going to contact Neurology. We are keeping Zyprexa 2.5 p.o. q.h.s. and Wellbutrin for depression. 05/28 keep same treatment, we are going to titrate Lamictal the day after tomorrow. Tomorrow we will increase Zyprexa to 5 mg p.o. q.h.s. to target mood lability. 05/29 Lamictal 50 mg p.o. b.i.d. and Zyprexa 5 p.o. q.h.s.. Family meeting done with her daughter and psychoeducation into her condition was provided. 05/30 keep on the same doses 05/31 increase Zyprexa to 7.5 p.o. q.h.s. 06/01/24 The pt has had previous good response to ect in 2019 6 rul tx. pt quite depressed hopeless helpless passive si consider vyralar latuda if does not stabilize ? bipolar dep sig ptsd 06/02/2024 Question patient with dysarthric speech has history of question lupus no current active treatment. Hopeless helpless needs much reassurance feels rejected by her daughters. No active SI question visual hallucination unclear if patient has had imaging would consider brain imaging check DANA rheumatoid factor sed rate TSH unremarkable. Patient did have a response to ECT in 2019 this could be a potential option. If clear bipolar which is not totally clear to me by history would consider Vraylar. 06/03 increase Lamictal up to 100 mg p.o. b.i.d. to target depression Reason for continued inpatient stay Substantial Risk for: inability to function, rapid decompensation and med/psych decompensation Time Spent With Patient Time: Total time managing care of this patient today __20__ minutes.
[2024-06-03 20:00] VITALS: BP 138/75; PULSE 97; TEMP 35.9; O2SAT 98
[2024-06-03 20:28] VITALS: BP 138/75
[2024-06-03] MEDS: Prazosin HCL 1 MG CAPSULE PO (20:28)
[2024-06-03] MEDS: lamoTRIgine 100 MG TABLET PO (20:28)
[2024-06-03] MEDS: OLANZapine 7.5 MG TABLET PO (20:29)
[2024-06-03] MEDS: traZODone HCL 50 MG TABLET PO (20:29)
[2024-06-04] MEDS: SUMAtriptan succinate 50 MG TABLET PO (02:05)
--- NOTE | 2024-06-04 02:10 | PC.NURSE ---
Unscheduled PRN Imitrex administered per provider's order
[2024-06-04] MEDS: SYNTHROID 50 MCG 50 EACH PO (05:16)
[2024-06-04 07:55] VITALS: BP 138/75; PULSE 97; RESP 18; TEMP 36.6; O2SAT 98
[2024-06-04] MEDS: Lidocaine 4 % Patch ADH..PATCH 2 PATCH TRANSDERMA (08:46)
[2024-06-04] MEDS: Famotidine 20 MG TABLET 40 MG PO ×2 (08:46→20:11)
[2024-06-04] MEDS: clonazePAM 1 MG TABLET PO ×3 (08:46→20:12)
[2024-06-04] MEDS: Cholecalciferol (Vitamin D3) 25 MCG TABLET 50 MCG PO (08:46)
[2024-06-04] MEDS: lamoTRIgine 100 MG TABLET PO ×2 (08:46→20:13)
[2024-06-04] MEDS: buPROPion HCl XL 150 MG TAB.ER.24H PO (08:46)
[2024-06-04] MEDS: Gabapentin 300 MG CAPSULE PO ×3 (08:46→20:12)
[2024-06-04] MEDS: LIFITEGRAST 5% 1 EACH EYE-BOTH ×2 (09:26→20:13)
[2024-06-04] MEDS: hydrOXYzine HCL 25 MG TABLET PO (11:52)
[2024-06-04] MEDS: Ibuprofen 400 MG TABLET PO (14:12)
--- NOTE | 2024-06-04 15:39 | HO.PSYCHPN ---
Subjective Subjective Date of Service: 06/04/24 Reason For Visit: SI Subjective Notes: Conditional Voluntary Interim History: The nursing staff reported the patient can pleasant eating her meals she had been tearful in the afternoon. She slept well. On interview the patient reports that she is more anxious and needed Ativan p.r.n.. Mental Status Exam Mental Status Exam Patient Appearance: Well Grooomed Patient Orientation: Person and Situation Level of Consciousness: Awake and Appropriate Patient Behavior: Guarded and Passive Mood Description: Withdrawn Affect Description: Calm Patient Cognition Impaired: Yes Ability to Follow Directions: Good Speech Pattern: Clear Hallucinations: None Delusions: Ideas of Reference Thought Process: Distracted and Slowed Thinking Thought Content: positive for [place] and positive for Poverty of Content Judgement: Fair Diagnostics Vital Signs (24Hr): Vital Signs - 24 hr 06/03/24 20:00 06/03/24 20:28 06/04/24 07:55 Temperature 96.7 F L 97.9 F Pulse Rate 97 97 Respiratory Rate 18 Blood Pressure 138/75 138/75 138/75 Pulse Oximetry 98 98 Oxygen Delivery Method Room Air Room Air BMI result Body Mass Index 21.0 Labs 05/16/24 19:53 05/18/24 15:34 Labs: Laboratory Results - last 48 hr 06/03/24 07:11 ESR 12 Rheumatoid Factor 15.6 H Medications Medications Current Medications Al Hydroxide/Mg Hydroxide (Magnesium Hydrox/Alum Hydrox 30 Ml Oral.Susp) 30 ml PO Q6H PRN PRN Reason: Heartburn/Nausea Albuterol Sulfate (Albuterol Sulfate 90 Mcg 8 Gm Inhaler) 2 puff INHALE Q6H PRN PRN Reason: for wheezing Bisacodyl (Bisacodyl 5 Mg Tablet.Dr) 10 mg PO DAILY PRN PRN Reason: Constipation Last Admin: 05/26/24 14:17 Dose: 10 mg Bupropion HCl (Bupropion Hcl Xl 150 Mg Tab.Er.24h) 150 mg PO DAILY [facility] Last Admin: 06/04/24 08:46 Dose: 150 mg Clonazepam (Clonazepam 1 Mg Tablet) 1 mg PO TID [facility] Last Admin: 06/04/24 14:12 Dose: 1 mg Famotidine (Famotidine 20 Mg Tablet) 40 mg PO BID [facility] Last Admin: 06/04/24 08:46 Dose: 40 mg Gabapentin (Gabapentin 300 Mg Capsule) 300 mg PO TID [facility] Last Admin: 06/04/24 14:12 Dose: 300 mg Hydroxyzine HCl (Hydroxyzine Hcl 25 Mg Tablet) 25 mg PO Q6H PRN PRN Reason: Anxiety Last Admin: 06/04/24 11:52 Dose: 25 mg Ibuprofen (Ibuprofen 400 Mg Tablet) 400 mg PO Q6H PRN PRN Reason: Pain, Moderate(Pain Scale 4-6) Last Admin: 06/04/24 14:12 Dose: 400 mg Lamotrigine (Lamotrigine 100 Mg Tablet) 100 mg PO BID [facility] Last Admin: 06/04/24 08:46 Dose: 100 mg Lidocaine (Lidocaine 4 % Patch Adh..Patch) 2 patch TRANSDERMA DAILY [facility]; Protocol Last Admin: 06/04/24 08:46 Dose: 2 patch Lorazepam (Lorazepam 1 Mg Tablet) 1 mg PO Q4H PRN PRN Reason: Anxiety Pt Own (Lifitegrast [Xiidra] 5 % Dropperette) 1 drop EYE-BOTH BID [facility] Last Admin: 06/04/24 09:26 Dose: 1 drop Pt Own (Synthroid (50 Mcg Tablet)) 50 mcg PO DAILY@0600 [facility] Last Admin: 06/04/24 05:16 Dose: 50 mcg Non-Formulary Medication (Cyclosporine [Restasis]) 1 drop EYE-BOTH BID [facility] Olanzapine (Olanzapine 7.5 Mg Tablet) 7.5 mg PO BEDTIME [facility] Last Admin: 06/03/24 20:29 Dose: 7.5 mg Ondansetron HCl (Ondansetron Odt 4 Mg Tab.Rapdis) 4 mg TRANSLINGU Q8H PRN PRN Reason: Nausea and Vomiting Last Admin: 05/22/24 11:24 Dose: 4 mg Oxybutynin Chloride (Oxybutynin Chloride Er 5 Mg Tab.Er.24) 10 mg PO DAILY PRN PRN Reason: OVERACTIVE BLADDER Polyethylene Glycol (Polyethylene Glycol 3350 17 Gm Powd.Pack) 17 gm PO DAILY PRN PRN Reason: Constipation Last Admin: 05/26/24 08:40 Dose: 17 gm Prazosin HCl (Prazosin Hcl 1 Mg Capsule) 1 mg PO BEDTIME [facility]; Protocol Last Admin: 06/03/24 20:28 Dose: 1 mg Simethicone (Simethicone 80 Mg Tab.Chew) 160 mg PO QID PRN PRN Reason: Gas Last Admin: 05/26/24 14:18 Dose: 160 mg Sumatriptan Succinate (Sumatriptan Succinate 50 Mg Tablet) 50 mg PO DAILY PRN PRN Reason: Migraine Headache Last Admin: 06/04/24 02:05 Dose: 50 mg Trazodone HCl (Trazodone Hcl 50 Mg Tablet) 50 mg PO BEDTIME [facility] Last Admin: 06/03/24 20:29 Dose: 50 mg Trazodone HCl (Trazodone Hcl 50 Mg Tablet) 50 mg PO BEDTIME MRX1 PRN PRN Reason: Insomnia Last Admin: 05/18/24 22:58 Dose: 50 mg Vitamin D (Cholecalciferol (Vitamin D3) 25 Mcg Tablet) 50 mcg PO DAILY [facility] Last Admin: 06/04/24 08:46 Dose: 50 mcg Allergies Allergies Allergy/AdvReac Type Severity Reaction Status Date / Time Sulfa (Sulfonamide Allergy Severe Itching Verified 05/16/24 19:20 Antibiotics) codeine [CODEINE] Allergy Intermediate ITCHING Verified 05/16/24 19:20 hydroxychloroquine Allergy Intermediate VOMITING Verified 05/16/24 19:20 [From PLAQUENIL] morphine [MORPHINE] Allergy Intermediate ITCHING Verified 05/16/24 19:20 Estrogens Allergy Mild Unknown Verified 05/16/24 19:20 levothyroxine sodium Allergy Unknown rash,throat Verified 05/16/24 19:20 closes prednisone Allergy Unknown Unknown Verified 05/16/24 19:20 Corticosteroids AdvReac Severe DIFFICULTY Verified 05/16/24 19:20 (Glucocorticoids) BREATHING [CORTICOSTEROIDS (GLUCOCORTICOIDS)] escitalopram [From Lexapro] AdvReac Severe seizure Verified 05/16/24 19:20 meloxicam AdvReac Severe Gastrointestinal Verified 05/16/24 19:20 Upset tadalafil [From Cialis] AdvReac Intermediate Nausea and Verified 05/16/24 19:20 Vomiting acetaminophen [Percocet] AdvReac Unknown Unknown Verified 05/16/24 19:20 duloxetine AdvReac Unknown Unknown Verified 05/16/24 19:20 fluconazole AdvReac Unknown Itch, pain, Verified 05/16/24 19:20 Assessment & Plan Assessment & Plan (1) Bipolar depression: Status: Acute Code(s): F31.9 - Bipolar disorder, unspecified (2) PTSD (post-traumatic stress disorder): Status: Acute Code(s): F43.10 - Post-traumatic stress disorder, unspecified Plan The patient is a middle-aged black female with a past history of bipolar disorder who had been depressed with suicidal ideation for the last weeks. The patient had been admitted before and she had had traumatic experiences in the past with signs and symptoms compatible with PTSD. The patient overdosed on medications a few days ago but so far she is medically cleared. Plan 05/24 continue tx. 05/25 continue plan of care 05/26 continue tx monitor constipation 05/27 we are going to increase Lamictal up to 25 mg p.o. b.i.d.. Also we are going to contact Neurology. We are keeping Zyprexa 2.5 p.o. q.h.s. and Wellbutrin for depression. 05/28 keep same treatment, we are going to titrate Lamictal the day after tomorrow. Tomorrow we will increase Zyprexa to 5 mg p.o. q.h.s. to target mood lability. 05/29 Lamictal 50 mg p.o. b.i.d. and Zyprexa 5 p.o. q.h.s.. Family meeting done with her daughter and psychoeducation into her condition was provided. 05/30 keep on the same doses 05/31 increase Zyprexa to 7.5 p.o. q.h.s. 06/01/24 The pt has had previous good response to ect in 2019 6 rul tx. pt quite depressed hopeless helpless passive si consider vyralar latuda if does not stabilize ? bipolar dep sig ptsd 06/02/2024 Question patient with dysarthric speech has history of question lupus no current active treatment. Hopeless helpless needs much reassurance feels rejected by her daughters. No active SI question visual hallucination unclear if patient has had imaging would consider brain imaging check DANA rheumatoid factor sed rate TSH unremarkable. Patient did have a response to ECT in 2019 this could be a potential option. If clear bipolar which is not totally clear to me by history would consider Vraylar. 06/03 increase Lamictal up to 100 mg p.o. b.i.d. to target depression. 06/04 continue same treatment, add Ativan p.r.n. Reason for continued inpatient stay Substantial Risk for: inability to function, rapid decompensation and med/psych decompensation Time Spent With Patient Time: Total time managing care of this patient today __20__ minutes.
[2024-06-04 20:00] VITALS: BP 98/56; PULSE 77; RESP 18; TEMP 36.7; O2SAT 98
[2024-06-04 20:12] VITALS: BP 98/56
[2024-06-04] MEDS: Prazosin HCL 1 MG CAPSULE PO (20:12)
[2024-06-04] MEDS: OLANZapine 7.5 MG TABLET PO (20:12)
[2024-06-04] MEDS: traZODone HCL 50 MG TABLET PO (20:12)
[2024-06-05] MEDS: SYNTHROID 50 MCG 50 EACH PO (05:17)
[2024-06-05] MEDS: Ibuprofen 400 MG TABLET PO ×2 (05:20→12:22)
[2024-06-05] MEDS: hydrOXYzine HCL 25 MG TABLET PO (05:21)
[2024-06-05 08:00] VITALS: BP 119/78; PULSE 92; RESP 18; TEMP 36.4; O2SAT 98
[2024-06-05] MEDS: LIFITEGRAST 5% 1 EACH EYE-BOTH ×2 (09:02→20:57)
[2024-06-05] MEDS: Lidocaine 4 % Patch ADH..PATCH 2 PATCH TRANSDERMA (09:04)
[2024-06-05] MEDS: buPROPion HCl XL 150 MG TAB.ER.24H PO (09:05)
[2024-06-05] MEDS: lamoTRIgine 100 MG TABLET PO ×2 (09:05→20:45)
[2024-06-05] MEDS: Gabapentin 300 MG CAPSULE PO ×3 (09:05→20:47)
[2024-06-05] MEDS: clonazePAM 1 MG TABLET PO ×3 (09:05→20:47)
[2024-06-05] MEDS: Famotidine 20 MG TABLET 40 MG PO ×2 (09:05→20:45)
[2024-06-05] MEDS: Cholecalciferol (Vitamin D3) 25 MCG TABLET 50 MCG PO (09:05)
--- NOTE | 2024-06-05 14:35 | P.PNPSI_ITS ---
Subjective Subjective Date of Service: 06/05/24 Reason For Visit: SI Subjective Notes: Conditional Voluntary Interim History: The nursing staff reported the patient had been attention seeking, she slept 8 hours. On interview the patient reported that she fell several times and the staff was not taking care of her but apparently she is putting herself on the floor. We are going to increase Zyprexa to 10 mg p.o. q.h.s., she is asking for a nearly discharge. Mental Status Exam Mental Status Exam Patient Appearance: Well Grooomed and Appropriate Patient Orientation: Person and Situation Level of Consciousness: Awake Patient Behavior: Guarded and Passive Mood Description: Withdrawn Affect Description: Constricted Patient Cognition Impaired: Yes Ability to Follow Directions: Good Speech Pattern: Clear Hallucinations: None Delusions: Ideas of Reference Thought Process: Distracted and Slowed Thinking Thought Content: positive for [place] and positive for Poverty of Content Judgement: Fair Diagnostics Vital Signs (24Hr): Vital Signs - 24 hr 06/04/24 20:00 06/04/24 20:12 06/05/24 08:00 Temperature 98.0 F 97.6 F Pulse Rate 77 92 Respiratory Rate 18 18 Blood Pressure 98/56 L 98/56 L 119/78 Pulse Oximetry 98 98 Oxygen Delivery Method Room Air Room Air BMI result Body Mass Index 21.0 Labs 05/16/24 19:53 05/18/24 15:34 Medications Medications Current Medications Al Hydroxide/Mg Hydroxide (Magnesium Hydrox/Alum Hydrox 30 Ml Oral.Susp) 30 ml PO Q6H PRN PRN Reason: Heartburn/Nausea Albuterol Sulfate (Albuterol Sulfate 90 Mcg 8 Gm Inhaler) 2 puff INHALE Q6H PRN PRN Reason: for wheezing Bisacodyl (Bisacodyl 5 Mg Tablet.Dr) 10 mg PO DAILY PRN PRN Reason: Constipation Last Admin: 05/26/24 14:17 Dose: 10 mg Bupropion HCl (Bupropion Hcl Xl 150 Mg Tab.Er.24h) 150 mg PO DAILY [facility] Last Admin: 06/05/24 09:05 Dose: 150 mg Clonazepam (Clonazepam 1 Mg Tablet) 1 mg PO TID [facility] Last Admin: 06/05/24 09:05 Dose: 1 mg Famotidine (Famotidine 20 Mg Tablet) 40 mg PO BID [facility] Last Admin: 06/05/24 09:05 Dose: 40 mg Gabapentin (Gabapentin 300 Mg Capsule) 300 mg PO TID [facility] Last Admin: 06/05/24 09:05 Dose: 300 mg Hydroxyzine HCl (Hydroxyzine Hcl 25 Mg Tablet) 25 mg PO Q6H PRN PRN Reason: Anxiety Last Admin: 06/05/24 05:21 Dose: 25 mg Ibuprofen (Ibuprofen 400 Mg Tablet) 400 mg PO Q6H PRN PRN Reason: Pain, Moderate(Pain Scale 4-6) Last Admin: 06/05/24 12:22 Dose: 400 mg Lamotrigine (Lamotrigine 100 Mg Tablet) 100 mg PO BID [facility] Last Admin: 06/05/24 09:05 Dose: 100 mg Lidocaine (Lidocaine 4 % Patch Adh..Patch) 2 patch TRANSDERMA DAILY [facility]; Protocol Last Admin: 06/05/24 09:04 Dose: 2 patch Lorazepam (Lorazepam 1 Mg Tablet) 1 mg PO Q4H PRN PRN Reason: Anxiety Pt Own (Lifitegrast [Xiidra] 5 % Dropperette) 1 drop EYE-BOTH BID [facility] Last Admin: 06/05/24 09:02 Dose: 1 drop Pt Own (Synthroid (50 Mcg Tablet)) 50 mcg PO DAILY@0600 [facility] Last Admin: 06/05/24 05:17 Dose: 50 mcg Non-Formulary Medication (Cyclosporine [Restasis]) 1 drop EYE-BOTH BID [facility] Olanzapine (Olanzapine 10 Mg Tablet) 10 mg PO BEDTIME [facility] Ondansetron HCl (Ondansetron Odt 4 Mg Tab.Rapdis) 4 mg TRANSLINGU Q8H PRN PRN Reason: Nausea and Vomiting Last Admin: 05/22/24 11:24 Dose: 4 mg Oxybutynin Chloride (Oxybutynin Chloride Er 5 Mg Tab.Er.24) 10 mg PO DAILY PRN PRN Reason: OVERACTIVE BLADDER Polyethylene Glycol (Polyethylene Glycol 3350 17 Gm Powd.Pack) 17 gm PO DAILY PRN PRN Reason: Constipation Last Admin: 05/26/24 08:40 Dose: 17 gm Prazosin HCl (Prazosin Hcl 1 Mg Capsule) 1 mg PO BEDTIME [facility]; Protocol Last Admin: 06/04/24 20:12 Dose: 1 mg Simethicone (Simethicone 80 Mg Tab.Chew) 160 mg PO QID PRN PRN Reason: Gas Last Admin: 05/26/24 14:18 Dose: 160 mg Sumatriptan Succinate (Sumatriptan Succinate 50 Mg Tablet) 50 mg PO DAILY PRN PRN Reason: Migraine Headache Last Admin: 06/04/24 02:05 Dose: 50 mg Trazodone HCl (Trazodone Hcl 50 Mg Tablet) 50 mg PO BEDTIME [facility] Last Admin: 06/04/24 20:12 Dose: 50 mg Trazodone HCl (Trazodone Hcl 50 Mg Tablet) 50 mg PO BEDTIME MRX1 PRN PRN Reason: Insomnia Last Admin: 05/18/24 22:58 Dose: 50 mg Vitamin D (Cholecalciferol (Vitamin D3) 25 Mcg Tablet) 50 mcg PO DAILY [facility] Last Admin: 06/05/24 09:05 Dose: 50 mcg Allergies Allergies Allergy/AdvReac Type Severity Reaction Status Date / Time Sulfa (Sulfonamide Allergy Severe Itching Verified 05/16/24 19:20 Antibiotics) codeine [CODEINE] Allergy Intermediate ITCHING Verified 05/16/24 19:20 hydroxychloroquine Allergy Intermediate VOMITING Verified 05/16/24 19:20 [From PLAQUENIL] morphine [MORPHINE] Allergy Intermediate ITCHING Verified 05/16/24 19:20 Estrogens Allergy Mild Unknown Verified 05/16/24 19:20 levothyroxine sodium Allergy Unknown rash,throat Verified 05/16/24 19:20 closes prednisone Allergy Unknown Unknown Verified 05/16/24 19:20 Corticosteroids AdvReac Severe DIFFICULTY Verified 05/16/24 19:20 (Glucocorticoids) BREATHING [CORTICOSTEROIDS (GLUCOCORTICOIDS)] escitalopram [From Lexapro] AdvReac Severe seizure Verified 05/16/24 19:20 meloxicam AdvReac Severe Gastrointestinal Verified 05/16/24 19:20 Upset tadalafil [From Cialis] AdvReac Intermediate Nausea and Verified 05/16/24 19:20 Vomiting acetaminophen [Percocet] AdvReac Unknown Unknown Verified 05/16/24 19:20 duloxetine AdvReac Unknown Unknown Verified 05/16/24 19:20 fluconazole AdvReac Unknown Itch, pain, Verified 05/16/24 19:20 Assessment & Plan Assessment & Plan (1) Bipolar depression: Status: Acute Code(s): F31.9 - Bipolar disorder, unspecified (2) PTSD (post-traumatic stress disorder): Status: Acute Code(s): F43.10 - Post-traumatic stress disorder, unspecified Plan The patient is a middle-aged black female with a past history of bipolar disorder who had been depressed with suicidal ideation for the last weeks. The patient had been admitted before and she had had traumatic experiences in the past with signs and symptoms compatible with PTSD. The patient overdosed on medications a few days ago but so far she is medically cleared. Plan 05/24 continue tx. 05/25 continue plan of care 05/26 continue tx monitor constipation 05/27 we are going to increase Lamictal up to 25 mg p.o. b.i.d.. Also we are going to contact Neurology. We are keeping Zyprexa 2.5 p.o. q.h.s. and Wellbutrin for depression. 05/28 keep same treatment, we are going to titrate Lamictal the day after tomorrow. Tomorrow we will increase Zyprexa to 5 mg p.o. q.h.s. to target mood lability. 05/29 Lamictal 50 mg p.o. b.i.d. and Zyprexa 5 p.o. q.h.s.. Family meeting done with her daughter and psychoeducation into her condition was provided. 05/30 keep on the same doses 05/31 increase Zyprexa to 7.5 p.o. q.h.s. 06/01/24 The pt has had previous good response to ect in 2019 6 rul tx. pt quite depressed hopeless helpless passive si consider vyralar latuda if does not stabilize ? bipolar dep sig ptsd 06/02/2024 Question patient with dysarthric speech has history of question lupus no current active treatment. Hopeless helpless needs much reassurance feels rejected by her daughters. No active SI question visual hallucination unclear if patient has had imaging would consider brain imaging check DANA rheumatoid factor sed rate TSH unremarkable. Patient did have a response to ECT in 2019 this could be a potential option. If clear bipolar which is not totally clear to me by history would consider Vraylar. 06/03 increase Lamictal up to 100 mg p.o. b.i.d. to target depression. 06/04 continue same treatment, add Ativan p.r.n. 06/05 increased Zyprexa to 10 mg p.o. q.h.s. Reason for continued inpatient stay Substantial Risk for: inability to function, rapid decompensation and med/psych decompensation Time Spent With Patient Time: Total time managing care of this patient today __20__ minutes.
[2024-06-05] MEDS: LORazepam 1 MG TABLET PO (18:15)
[2024-06-05 20:00] VITALS: BP 129/70; PULSE 102; TEMP 36.2; O2SAT 96
[2024-06-05 20:45] VITALS: BP 129/70
[2024-06-05] MEDS: Prazosin HCL 1 MG CAPSULE PO (20:45)
[2024-06-05] MEDS: OLANZapine 10 MG TABLET PO (20:47)
[2024-06-05] MEDS: traZODone HCL 50 MG TABLET PO (20:47)
--- NOTE | 2024-06-06 | ECG_ITS ---
Test Reason : Dizziness with fall Blood Pressure : */* mmHG Vent. Rate : 86 BPM Atrial Rate : 86 BPM P-R Int : 158 ms QRS Dur : 130 ms QT Int : 434 ms P-R-T Axes : -20 27 89 degrees QTcB Int : 519 ms Normal sinus rhythm Left bundle branch block Abnormal ECG When compared with ECG of 16-May-2024 20:13, No significant change was found Referred By: Angelo Bolton Electronically Signed By: Cipriano Hudson
[2024-06-06] MEDS: Ibuprofen 400 MG TABLET PO (03:30)
[2024-06-06 05:40] VITALS: BP 129/82; PULSE 89; RESP 20; O2SAT 96
[2024-06-06 05:41] VITALS: BP 123/80; PULSE 87; RESP 16; TEMP 36.4; O2SAT 96
--- NOTE | 2024-06-06 05:55 | PM.EVENT ---
Event Note Date of Service: 06/06/24 Event Note: RAPID RESPONSE Rapid response called for patient with an unwitnessed fall. The patient is a middle-aged black female with a past history of bipolar disorder who had been depressed with suicidal ideation for the last weeks and admitted for further care. She apparently fell when she went to use the bathroom. The fall was not witnessed and her roommate who alerted the staff only saw her on the floor. She however admits to being dizzy just before the fall an also admits to head strike and now with neck pain. She however did not loose consciousness. Ass/Plan 1. Fall - with head trike and now with neck pain - will get CT head and cervical spine - will get EKG given reported dizziness Time Spent With Patient Time: Total time managing care of this patient today _30_ minutes.
--- NOTE | 2024-06-06 06:22 | MHC.EVENTN ---
@0541 pt had an unwitnessed fall. Per pt, she had gotten up to use the BR. she reports she lost balance walking back to her bed, she tried to hold unot the sink for support, missed it and landed on the floor, hitting the back of her head. pt reports headache, having dizziness and neck pain. ACADEMY EDUCATION DIRECTOR called. on call pharmacy technician psych provider notified. Vitals unremarkable. STAT orders for CT of cervical spine, head/brain and EKG ordered by Dr Caron Bolton. pt was taken down to tests by hearing aid consultant HS brush fabrication supervisor. Pt to remiain in [facility] until results are read.
[2024-06-06 07:55] VITALS: BP 123/80; PULSE 87; RESP 16; TEMP 36.4; O2SAT 96
[2024-06-06 08:00] VITALS: BP 111/73; PULSE 95; RESP 18; TEMP 36.3; O2SAT 99
[2024-06-06 09:20] LABS: MANUAL DIFF FLAG NO
[2024-06-06 09:23] LABS: Basophils Percent Auto 0.8 % (0-2); Eosinophils Percent Auto 0.4 % (0-4); Hematocrit 33.8 % (37.0-47.0); Hemoglobin 10.9 g/dl (12.0-16.0); Imm Gran Abs Auto 0.01 X10*3/uL (0.00-0.03); Imm Gran Pct Auto 0.4 % (0.0-0.4); Lymphocytes Absolute Auto 0.7 X10*3/uL (1.2-4.9); Lymphocytes Percent Auto 26.5 % (20-40); Mean Corpuscular HGB Conc 32.2 g/dl (31.0-35.0); Mean Corpuscular Volume 83.9 fL (80.0-98.0); Mean Platelet Volume 9.8 fL (9.4-12.3); Monocytes Absolute Auto 0.2 X10*3/uL (0.1-1.2); Monocytes Percent Auto 8.8 % (2-11); Neutrophils Absolute Auto 1.6 x10*3/uL (2.0-8.3); Neutrophils Percent Auto 63.1 % (45-73); Platelet Count 171 X10*3/uL (160-400); Red Blood Count 4.03 X10*6/uL (4.20-5.50); Red Cell Distribution Width 14.6 % (11.0-16.0); White Blood Count 2.6 X10*3/uL (4.8-10.8)
[2024-06-06] MEDS: Gabapentin 300 MG CAPSULE PO ×3 (09:40→20:21)
[2024-06-06] MEDS: lamoTRIgine 100 MG TABLET PO ×2 (09:40→20:21)
[2024-06-06] MEDS: buPROPion HCl XL 150 MG TAB.ER.24H PO (09:40)
[2024-06-06] MEDS: SYNTHROID 50 MCG 50 EACH PO (09:40)
[2024-06-06] MEDS: clonazePAM 1 MG TABLET PO ×3 (09:41→20:21)
[2024-06-06] MEDS: Lidocaine 4 % Patch ADH..PATCH 2 PATCH TRANSDERMA (09:41)
[2024-06-06] MEDS: Cholecalciferol (Vitamin D3) 25 MCG TABLET 50 MCG PO (09:41)
[2024-06-06] MEDS: Famotidine 20 MG TABLET 40 MG PO ×2 (09:41→20:21)
[2024-06-06 09:44] LABS: Alanine Aminotransferase 16 U/L (0-31); Albumin Level 3.7 g/dL (3.5-5.0); Alkaline Phosphatase 61 U/L (39-117); Anion Gap 12 (12-20); Aspartate Amino Transferase 35 U/L (5-31); Bilirubin Total 0.2 mg/dL (0.0-1.0); Blood Urea Nitrogen 16 mg/dL (9-16); Calcium 8.7 mg/dL (8.4-10.2); Carbon Dioxide 26 mmol/L (22-29); Chloride 106 mmol/L (96-108); Creatinine Clr Calc Pharmacy 62.7; Estimated Glomerular Filt Rate > 60; Glucose Random 77 mg/dL (60-115); Potassium 3.6 mmol/L (3.3-5.1); Sodium 140 mmol/L (135-145); Total Protein 6.6 g/dL (6.5-8.0)
[2024-06-06 09:47] LABS: Troponin-I High Sensitivity 3.4 ng/L (<3.5-17.0)
[2024-06-06] MEDS: LIFITEGRAST 5% 1 EACH EYE-BOTH ×2 (09:57→20:21)
[2024-06-06] MEDS: LORazepam 1 MG TABLET PO (13:59)
--- NOTE | 2024-06-06 14:05 | PC.NURSE ---
Patient attention seeking, wandering, restless and wobbly while ambulating. She lowered herself to the floor at 11:56, then lowered herself to the floor in her room. Desktop Publishing Associate, RN, and staff attempted to redirect Patient several times without success, PRN Ativan administered at 1359 with some effect.
--- NOTE | 2024-06-06 14:47 | P.PNPSI_ITS ---
Subjective Subjective Date of Service: 06/06/24 Reason For Visit: SI Subjective Notes: Conditional Voluntary Interim History: The nursing staff reported the patient had being attention seeking she reported she fell at 5 defined in the morning the in the bathroom and she was CT scan, EKG within normal limits. She requested to be discharged as soon as possible. On interview the patient asking for her discharge she reports that she is not suicidal anymore. We will prepare the discharge paperwork and aftercare for tomorrow morning. Mental Status Exam Mental Status Exam Patient Appearance: Appropriate Patient Orientation: Person and Situation Level of Consciousness: Awake Patient Behavior: Guarded and Passive Mood Description: Withdrawn Affect Description: Constricted Patient Cognition Impaired: Yes Ability to Follow Directions: Good Speech Pattern: Clear Hallucinations: None Delusions: Ideas of Reference Thought Process: Distracted and Slowed Thinking Thought Content: positive for [place] and positive for [place] of Content Judgement: Fair Diagnostics Vital Signs (24Hr): Vital Signs - 24 hr 06/05/24 20:00 06/05/24 20:45 06/06/24 05:40 Temperature 97.1 F Pulse Rate 102 H 89 Respiratory Rate 20 Blood Pressure 129/70 129/70 129/82 Pulse Oximetry 96 96 Oxygen Delivery Method Room Air Room Air 06/06/24 05:41 06/06/24 07:55 06/06/24 08:00 Temperature 97.6 F 97.6 F 97.4 F Pulse Rate 87 87 95 Respiratory Rate 16 16 18 Blood Pressure 123/80 123/80 111/73 Pulse Oximetry 96 96 99 Oxygen Delivery Method Room Air Room Air BMI result Body Mass Index 21.0 Labs 06/06/24 08:49 06/06/24 08:49 Labs: Laboratory Results - last 48 hr 06/06/24 08:49 WBC 2.6 L RBC 4.03 L Hgb 10.9 L Hct 33.8 L MCV 83.9 MCH 27.0 MCHC 32.2 RDW 14.6 Plt Count 171 MPV 9.8 Immature Gran % (Auto) 0.4 Neut % (Auto) 63.1 Lymph % (Auto) 26.5 Boundary % (Auto) 8.8 Eos % (Auto) 0.4 Baso % (Auto) 0.8 Lymph # (Auto) 0.7 L Boundary # (Auto) 0.2 Eos # (Auto) 0.0 Baso # (Auto) 0.0 Abs Immat Gran (auto) 0.01 Absolute Neuts (auto) 1.6 L Absolute Nucleated RBC 0.000 Nucleated RBC % (auto) 0.0 Sodium 140 Potassium 3.6 Chloride 106 Carbon Dioxide 26 Anion Gap 12 BUN 16 Creatinine 0.71 Estim Creat Clear Calc 62.7 Estimated GFR > 60 Random Glucose 77 Calcium 8.7 Total Bilirubin 0.2 AST 35 H ALT 16 Alkaline Phosphatase 61 Troponin I High Sens 3.4 Total Protein 6.6 Albumin 3.7 Imaging Radiology Impressions: ITS Impressions Head CT 06/06/24 06:00 IMPRESSION: No acute intracranial process seen. Electronically signed by: Augusto Ozuna MD 06/06/2024 07:10 AM EST RP Cervical Spine CT 06/06/24 06:27 IMPRESSION: Mild Rotary subluxation or spasm C1-C2 alignment. Otherwise no acute fracture or dislocation seen. Mild straightening of cervical lordosis likely spasm Fleischner guidelines were followed. Electronically signed by: Augusto Ozuna MD 06/06/2024 07:17 AM EST RP Medications Medications Current Medications Al Hydroxide/Mg Hydroxide (Magnesium Hydrox/Alum Hydrox 30 Ml Oral.Susp) 30 ml PO Q6H PRN PRN Reason: Heartburn/Nausea Albuterol Sulfate (Albuterol Sulfate 90 Mcg 8 Gm Inhaler) 2 puff INHALE Q6H PRN PRN Reason: for wheezing Bisacodyl (Bisacodyl 5 Mg Tablet.Dr) 10 mg PO DAILY PRN PRN Reason: Constipation Last Admin: 05/26/24 14:17 Dose: 10 mg Bupropion HCl (Bupropion Hcl Xl 150 Mg Tab.Er.24h) 150 mg PO DAILY [facility] Last Admin: 06/06/24 09:40 Dose: 150 mg Clonazepam (Clonazepam 1 Mg Tablet) 1 mg PO TID [facility] Last Admin: 06/06/24 09:41 Dose: 1 mg Famotidine (Famotidine 20 Mg Tablet) 40 mg PO BID [facility] Last Admin: 06/06/24 09:41 Dose: 40 mg Gabapentin (Gabapentin 300 Mg Capsule) 300 mg PO TID [facility] Last Admin: 06/06/24 09:40 Dose: 300 mg Hydroxyzine HCl (Hydroxyzine Hcl 25 Mg Tablet) 25 mg PO Q6H PRN PRN Reason: Anxiety Last Admin: 06/05/24 05:21 Dose: 25 mg Ibuprofen (Ibuprofen 400 Mg Tablet) 400 mg PO Q6H PRN PRN Reason: Pain, Moderate(Pain Scale 4-6) Last Admin: 06/06/24 03:30 Dose: 400 mg Lamotrigine (Lamotrigine 100 Mg Tablet) 100 mg PO BID [facility] Last Admin: 06/06/24 09:40 Dose: 100 mg Lidocaine (Lidocaine 4 % Patch Adh..Patch) 2 patch TRANSDERMA DAILY [facility]; Protocol Last Admin: 06/06/24 09:41 Dose: 2 patch Lorazepam (Lorazepam 1 Mg Tablet) 1 mg PO Q4H PRN PRN Reason: Anxiety Last Admin: 06/06/24 13:59 Dose: 1 mg Pt Own (Lifitegrast [Xiidra] 5 % Dropperette) 1 drop EYE-BOTH BID [facility] Last Admin: 06/06/24 09:57 Dose: 1 drop Pt Own (Synthroid (50 Mcg Tablet)) 50 mcg PO DAILY@0600 [facility] Last Admin: 06/06/24 09:40 Dose: 50 mcg Non-Formulary Medication (Cyclosporine [Restasis]) 1 drop EYE-BOTH BID [facility] Olanzapine (Olanzapine 10 Mg Tablet) 10 mg PO BEDTIME [facility] Last Admin: 06/05/24 20:47 Dose: 10 mg Ondansetron HCl (Ondansetron Odt 4 Mg Tab.Rapdis) 4 mg TRANSLINGU Q8H PRN PRN Reason: Nausea and Vomiting Last Admin: 05/22/24 11:24 Dose: 4 mg Oxybutynin Chloride (Oxybutynin Chloride Er 5 Mg Tab.Er.24) 10 mg PO DAILY PRN PRN Reason: OVERACTIVE BLADDER Polyethylene Glycol (Polyethylene Glycol 3350 17 Gm Powd.Pack) 17 gm PO DAILY PRN PRN Reason: Constipation Last Admin: 05/26/24 08:40 Dose: 17 gm Prazosin HCl (Prazosin Hcl 1 Mg Capsule) 1 mg PO BEDTIME [facility]; Protocol Last Admin: 06/05/24 20:45 Dose: 1 mg Simethicone (Simethicone 80 Mg Tab.Chew) 160 mg PO QID PRN PRN Reason: Gas Last Admin: 05/26/24 14:18 Dose: 160 mg Sumatriptan Succinate (Sumatriptan Succinate 50 Mg Tablet) 50 mg PO DAILY PRN PRN Reason: Migraine Headache Last Admin: 06/04/24 02:05 Dose: 50 mg Trazodone HCl (Trazodone Hcl 50 Mg Tablet) 50 mg PO BEDTIME [facility] Last Admin: 06/05/24 20:47 Dose: 50 mg Trazodone HCl (Trazodone Hcl 50 Mg Tablet) 50 mg PO BEDTIME MRX1 PRN PRN Reason: Insomnia Last Admin: 05/18/24 22:58 Dose: 50 mg Vitamin D (Cholecalciferol (Vitamin D3) 25 Mcg Tablet) 50 mcg PO DAILY [facility] Last Admin: 06/06/24 09:41 Dose: 50 mcg Allergies Allergies Allergy/AdvReac Type Severity Reaction Status Date / Time Sulfa (Sulfonamide Allergy Severe Itching Verified 05/16/24 19:20 Antibiotics) codeine [CODEINE] Allergy Intermediate ITCHING Verified 05/16/24 19:20 hydroxychloroquine Allergy Intermediate VOMITING Verified 05/16/24 19:20 [From PLAQUENIL] morphine [MORPHINE] Allergy Intermediate ITCHING Verified 05/16/24 19:20 Estrogens Allergy Mild Unknown Verified 05/16/24 19:20 levothyroxine sodium Allergy Unknown rash,throat Verified 05/16/24 19:20 closes prednisone Allergy Unknown Unknown Verified 05/16/24 19:20 Corticosteroids AdvReac Severe DIFFICULTY Verified 05/16/24 19:20 (Glucocorticoids) BREATHING [CORTICOSTEROIDS (GLUCOCORTICOIDS)] escitalopram [From Lexapro] AdvReac Severe seizure Verified 05/16/24 19:20 meloxicam AdvReac Severe Gastrointestinal Verified 05/16/24 19:20 Upset tadalafil [From Cialis] AdvReac Intermediate Nausea and Verified 05/16/24 19:20 Vomiting acetaminophen [Percocet] AdvReac Unknown Unknown Verified 05/16/24 19:20 duloxetine AdvReac Unknown Unknown Verified 05/16/24 19:20 fluconazole AdvReac Unknown Itch, pain, Verified 05/16/24 19:20 Assessment & Plan Assessment & Plan (1) Bipolar depression: Status: Acute Code(s): F31.9 - Bipolar disorder, unspecified (2) PTSD (post-traumatic stress disorder): Status: Acute Code(s): F43.10 - Post-traumatic stress disorder, unspecified Plan The patient is a middle-aged black female with a past history of bipolar disorder who had been depressed with suicidal ideation for the last weeks. The patient had been admitted before and she had had traumatic experiences in the past with signs and symptoms compatible with PTSD. The patient overdosed on medications a few days ago but so far she is medically cleared. Plan 05/24 continue tx. 05/25 continue plan of care 05/26 continue tx monitor constipation 05/27 we are going to increase Lamictal up to 25 mg p.o. b.i.d.. Also we are going to contact Neurology. We are keeping Zyprexa 2.5 p.o. q.h.s. and Wellbutrin for depression. 05/28 keep same treatment, we are going to titrate Lamictal the day after tomorrow. Tomorrow we will increase Zyprexa to 5 mg p.o. q.h.s. to target mood lability. 05/29 Lamictal 50 mg p.o. b.i.d. and Zyprexa 5 p.o. q.h.s.. Family meeting done with her daughter and psychoeducation into her condition was provided. 05/30 keep on the same doses 05/31 increase Zyprexa to 7.5 p.o. q.h.s. 06/01/24 The pt has had previous good response to ect in 2018 6 rul tx. pt quite depressed hopeless helpless passive si consider vyralar latuda if does not stabilize ? bipolar dep sig ptsd 06/02/2024 Question patient with dysarthric speech has history of question lupus no current active treatment. Hopeless helpless needs much reassurance feels rejected by her daughters. No active SI question visual hallucination unclear if patient has had imaging would consider brain imaging check DANA rheumatoid factor sed rate TSH unremarkable. Patient did have a response to ECT in 2019 this could be a potential option. If clear bipolar which is not totally clear to me by history would consider Vraylar. 06/03 increase Lamictal up to 100 mg p.o. b.i.d. to target depression. 06/04 continue same treatment, add Ativan p.r.n. 06/05 increased Zyprexa to 10 mg p.o. q.h.s. 06/06 continue same treatment discharge tomorrow. Reason for continued inpatient stay Substantial Risk for: inability to function, rapid decompensation and med/psych decompensation Time Spent With Patient Time: Total time managing care of this patient today __20__ minutes.
--- NOTE | 2024-06-06 14:58 | PM.PSYDC ---
DS: Providers Provider Date of Service: 06/06/24 Date of admission: 05/18/24 14:42 Date of discharge: 06/07/24 Primary care physician: Chuck Davila MD DS: Diagnosis Discharge Diagnosis (1) Bipolar depression: Status: Acute (2) PTSD (post-traumatic stress disorder): Status: Acute DS: Medications Discharge Medications Home Medications: Home Medications ?Medication ?Instructions ?Recorded ?Confirmed clonazepam 1 mg tablet 1 mg PO TID Anxiety 08/27/22 05/17/24 trazodone 50 mg tablet 50 mg PO BEDTIME Insomnia 11/29/22 05/17/24 hydroxyzine HCl 25 mg tablet 25 mg PO TID 01/31/24 05/17/24 Synthroid 50 mcg PO DAILY 05/17/24 05/17/24 bisacodyl 5 mg tablet,delayed 10 mg PO BEDTIME PRN Constipation 05/17/24 05/17/24 release bupropion HCl 150 mg 24 hr tablet, 150 mg PO DAILY 05/17/24 05/17/24 extended release cimetidine 800 mg tablet 800 mg PO BID PRN Acid Reflux 05/17/24 05/17/24 cyclosporine 0.05 % eye drops in a 1 drp ophthalmic (eye) BID 05/17/24 05/17/24 dropperette (Restasis) dexlansoprazole 60 mg 60 mg PO DAILY PRN Acid Reflux 05/17/24 05/17/24 capsule,biphase delayed release (Dexilant) lidocaine 5 % topical patch 1 patch topical DAILY 05/17/24 05/17/24 lifitegrast 5 % eye drops in a 1 drp ophthalmic (eye) BID 05/17/24 05/17/24 dropperette (Xiidra) ondansetron HCl 8 mg tablet 8 mg PO BEDTIME PRN Nausea 05/17/24 05/17/24 oxybutynin chloride 10 mg 10 mg PO DAILY PRN OVERACTIVE 05/17/24 05/17/24 tablet,extended release 24 hr BLADDER perfluorohexyloctane (PF) 100 % 1 drp ophthalmic (eye) TID 05/17/24 05/17/24 eye drops (Miebo (PF)) Previous Rx's ?Medication ?Instructions ?Recorded gabapentin 300 mg capsule 300 mg PO TID #90 caps 02/16/24 sumatriptan succinate 50 mg tablet See Rx Instructions PO .COMPLEX 03/15/24 #10 tabs cholecalciferol (vitamin D3) 50 50 mcg PO DAILY #90 caps 04/18/24 mcg (2,000 unit) capsule (Vitamin D3) diclofenac sodium 1 % topical gel 2 g topical QID #100 grams 04/19/24 Ventolin HFA 90 mcg/actuation 2 puff inhalation Q6H PRN for 05/25/24 aerosol inhaler (albuterol sulfate) wheezing #18 ea simethicone 180 mg capsule 180 mg PO QID #120 caps 05/27/24 doxepin 10 mg capsule 10 mg PO BEDTIME PRN for itch #90 06/03/24 caps Mental Status Exam Mental Status Exam Patient Appearance: Well Grooomed and Appropriate Patient Orientation: Person and Situation Level of Consciousness: Awake and Appropriate Patient Behavior: Guarded Mood Description: Calm Affect Description: Constricted Patient Cognition Impaired: Yes Ability to Follow Directions: Good Speech Pattern: Clear Hallucinations: None Delusions: Not Present Thought Process: Distracted and Slowed Thinking Thought Content: positive for [place] and positive for Circumstantial Judgement: Fair Data Data Completed and Pending Completed studies during hospitalization [Text1]: 06/03/24 06/06/24 07:11 08:49 WBC 2.6 L RBC 4.03 L Hgb 10.9 L Hct 33.8 L MCV 83.9 MCH 27.0 MCHC 32.2 RDW 14.6 Plt Count 171 MPV 9.8 Immature Gran % (Auto) 0.4 Neut % (Auto) 63.1 Lymph % (Auto) 26.5 [place] % (Auto) 8.8 Eos % (Auto) 0.4 Baso % (Auto) 0.8 Lymph # (Auto) 0.7 L [place] # (Auto) 0.2 Eos # (Auto) 0.0 Baso # (Auto) 0.0 Abs Immat Gran (auto) 0.01 Absolute Neuts (auto) 1.6 L Absolute Nucleated RBC 0.000 Nucleated RBC % (auto) 0.0 ESR 12 Sodium 140 Potassium 3.6 Chloride 106 Carbon Dioxide 26 Anion Gap 12 BUN 16 Creatinine 0.71 Estim Creat Clear Calc 62.7 Estimated GFR > 60 Random Glucose 77 Calcium 8.7 Total Bilirubin 0.2 AST 35 H ALT 16 Alkaline Phosphatase 61 Troponin I High Sens 3.4 Total Protein 6.6 Albumin 3.7 Rheumatoid Factor 15.6 H DANA Screen Pending DANA Titer Pending DANA Titer 2 Pending DANA Titer 3 Pending DANA Pattern Pending DANA Pattern 2 Pending DANA Pattern 3 Pending Imaging Diagnostic Imaging Impressions Head CT 06/06/24 06:00 IMPRESSION: No acute intracranial process seen. Electronically signed by: Augusto Ozuna MD 06/06/2024 07:10 AM EST RP Cervical Spine CT 06/06/24 06:27 IMPRESSION: Mild Rotary subluxation or spasm C1-C2 alignment. Otherwise no acute fracture or dislocation seen. Mild straightening of cervical lordosis likely spasm Fleischner guidelines were followed. Electronically signed by: Augusto Ozuna MD 06/06/2024 07:17 AM EST RP DS: Summary Hospital Course Hospital Course: The patient is a 59-year-old [place]ian female with a past history of bipolar depression who was brought to the emergency room for exacerbation of depression with suicidal ideation. The patient was assessed by the crisis team and transferring to this facility for psychiatric stabilization. Please see the HPI of the admission note for further details. On admission we review her list of medications and she was taking Wellbutrin but no mood stabilizers. We decided to add a mood stabilizer a low dose of Zyprexa 2.5 mg p.o. q.h.s. and reassess. While she was in the unit, we had a family meeting and the daughters reported the patient has episodes of violence with flight of ideas and irritability. When she was admitted, the 1st day she was doing fairly well she was able to contract for safety but later on, after a small altercation, she trashed her room and she was very angry and irritable. We decided to titrate Zyprexa to 10 mg p.o. q.h.s. and add Lamictal as an antidepressant/mood stabilizer titrated up to 100 mg p.o. b.i.d. with for improvement. The patient's behavior in the unit was compatible with cluster B traits with splitting and she reported that she was feeling not suicidal anymore since there were no safety concerns discharge planning was discussed. Time spent discussing smoking cessation with patient: 3 to 10 minutes Status at Discharge Functional status at discharge: uses cane/walker Overall status at discharge: patient is back to baseline Time Spent with Patient Time attestation: Total time managing care of this patient today __30__ minutes. Discharge Plan Discharge Anticipated Discharge Date/Time: 06/07/24 11:00 Patient Disposition: Home, Self-Care Discharge Diagnosis: Bipolar depression PTSD Cluster B personality traits. Referrals: Salvador Chang (Therapist) [Other] - 07/05/24 3:20 pm (You will see Salvador via telehealth on 07/05/24 at 3:20pm. If you have any questions or concerns about the appointment please call the number provided.) [facility] [Other] - 3-5 Days (You were referred to [facility] for medication management. They will come in daily to give you your medication and in between keep them safely locked up. They will start shortly after your discharge. If you have any questions or concerns please call the number listed.) Chuck Davila MD [Primary Care Provider] - 06/14/24 11:00 am Polly Key MD [Physician] - 08/07/24 10:30 am (Your original appointment had to be rescheduled due to your hospitalization. it was rescheduled for 08/07/24 at 10:30 AM. Your usual doctor will be on a sabbatical until then. if you have any questions or concerns please call the number listed) Gualberto Velasco ARNP [Advanced Practice Nurse] - 06/13/24 2:00 pm (You will be Brittany on 06/13/24 via telehealth. If you have any questions or concerns please call the number listed.) Discharge Medications: New trazodone 50 mg Tablet 50 mg PO BEDTIME 30 Days Qty: 30 0RF prazosin 1 mg Capsule 1 mg PO BEDTIME 30 Days Qty: 30 0RF Protocol: Hold for SBP< HOLD for SBP < : 90 clonazepam 1 mg Tablet 1 mg PO TID 30 Days Qty: 90 0RF olanzapine 10 mg Tablet 10 mg PO BEDTIME 30 Days Qty: 30 0RF ibuprofen 400 mg Tablet 400 mg PO Q6H PRN (Reason: Pain, Moderate(Pain Scale 4-6)) 30 Days Qty: 60 0RF gabapentin 300 mg Capsule 300 mg PO TID 30 Days Qty: 90 0RF hydroxyzine HCl 25 mg Tablet 25 mg PO Q6H PRN (Reason: Anxiety) 30 Days Qty: 60 0RF albuterol sulfate [Ventolin HFA] 90 mcg/actuation Hfa Aerosol Inhaler 2 puff inhalation Q6H PRN (Reason: for wheezing) 30 Days Qty: 1 0RF lamotrigine 100 mg Tablet 100 mg PO BID 30 Days Qty: 60 0RF cyclosporine 0.05 % Dropperette 1 drp ophthalmic (eye) BID 30 Days Qty: 60 0RF bupropion HCl 150 mg Tablet Extended Release 24 Hr 150 mg PO DAILY 30 Days Qty: 30 0RF lifitegrast 5 % Dropperette 1 drp ophthalmic (eye) BID Qty: 60 0RF bisacodyl 5 mg Tablet,Delayed Release (Dr/Ec) 10 mg PO DAILY PRN (Reason: Constipation) 30 Days Qty: 30 0RF lidocaine [Lidocaine Pain Relief] 4 % Adhesive Patch,Medicated 2 patch transdermal DAILY 30 Days Qty: 60 0RF Protocol: Apply to: Apply to: both knees oxybutynin chloride 5 mg Tablet Extended Release 24hr 10 mg PO DAILY PRN (Reason: OVERACTIVE BLADDER) 30 Days Qty: 30 0RF simethicone [Gas Relief (simethicone)] 80 mg Tablet,Chewable 160 mg PO QID PRN (Reason: Gas) 30 Days Qty: 60 0RF cholecalciferol (vitamin D3) 25 mcg (1,000 unit) Tablet 50 mcg PO DAILY 30 Days Qty: 60 0RF famotidine 40 mg tablet 40 mg PO BID 30 Days Qty: 60 0RF sumatriptan succinate 50 mg Tablet 50 mg PO DAILY PRN (Reason: Migraine Headache) 30 Days Qty: 30 0RF Continued ondansetron HCl 8 mg tablet 8 mg PO BEDTIME PRN (Reason: Nausea) 30 Days Qty: 30 0RF dexlansoprazole [Dexilant] 60 mg capsule,biphase delayed releas 60 mg PO DAILY PRN (Reason: Acid Reflux) 30 Days Qty: 30 0RF Synthroid 50 mcg tablet 50 mcg PO DAILY 30 Days Qty: 30 0RF Discontinued gabapentin 300 mg capsule 300 mg PO TID Qty: 90 3RF cholecalciferol (vitamin D3) [Vitamin D3] 50 mcg (2,000 unit) capsule 50 mcg PO DAILY Qty: 90 1RF diclofenac sodium 1 % gel 2 g topical QID Qty: 100 3RF albuterol sulfate [Ventolin HFA] 90 mcg/actuation HFA aerosol inhaler 2 puff inhalation Q6H PRN (Reason: for wheezing) Qty: 18 1RF simethicone 180 mg capsule 180 mg PO QID Qty: 120 6RF doxepin 10 mg capsule 10 mg PO BEDTIME PRN (Reason: for itch) Qty: 90 0RF clonazepam 1 mg tablet 1 mg PO TID Xiidra 5 % dropperette 1 drp ophthalmic (eye) BID cimetidine 800 mg tablet 800 mg PO BID PRN (Reason: Acid Reflux) lidocaine 5 % Adhesive Patch,Medicated 1 patch TOPICAL DAILY Rx Instructions: leave on most painful area for up to 12 hrs bupropion HCl 150 mg tablet extended release 24 hr 150 mg PO DAILY oxybutynin chloride 10 mg tablet extended release 24hr 10 mg PO DAILY PRN (Reason: OVERACTIVE BLADDER) bisacodyl 5 mg tablet,delayed release (DR/EC) 10 mg PO BEDTIME PRN (Reason: Constipation) cyclosporine [Restasis] 0.05 % dropperette 1 drp ophthalmic (eye) BID trazodone 50 mg tablet 50 mg PO BEDTIME sumatriptan succinate 50 mg tablet See Rx Instructions PO .COMPLEX Qty: 10 3RF Rx Instructions: take 1 tab at onset of headache; if no relief may repeat 1 tab after at least 2 hrs; max = 4 tabs/24 hr PO hydroxyzine HCl 25 mg tablet 25 mg PO TID No Action Miebo (PF) 100 % drops 1 drp ophthalmic (eye) TID Discharge Orders: Discharge Order (Routine); Ordered 06/07/24 Ordered By: Tristin Zuluaga Diet: Advance to usual diet Activity on Discharge: As tolerated Stand Alone Forms: Patient Portal Discharge page Print Language: Upper Sorbian Care Plan Goals: Care plan goals achieved in this admission Health Concerns: Continue treatment with primary care physician and other specialists as an outpatient. Plan of Treatment: Continue medication management and psychotherapy as an outpatient. Assessment: The patient is an elderly [place]ian female with bipolar depression, PTSD and cluster B personality traits admitted for exacerbation of depression in the context of several psychosocial stressors. We added a mood stabilizer Zyprexa titrated up to 10 mg p.o. q.h.s. and Lamictal titrated up to 100 mg p.o. b.i.d. on top of her regular Wellbutrin with for improvement. Since there were no safety concerns discharge planning was discussed.
[2024-06-06 20:00] VITALS: BP 131/74; PULSE 103; RESP 18; TEMP 37.2; O2SAT 100
[2024-06-06] MEDS: OLANZapine 10 MG TABLET PO (20:21)
[2024-06-06] MEDS: Prazosin HCL 1 MG CAPSULE PO (20:21)
[2024-06-06] MEDS: hydrOXYzine HCL 25 MG TABLET PO (20:21)
[2024-06-06] MEDS: traZODone HCL 50 MG TABLET PO (20:21)
[2024-06-07] MEDS: SYNTHROID 50 MCG 50 EACH PO (06:49)
[2024-06-07] MEDS: lamoTRIgine 100 MG TABLET PO (09:21)
[2024-06-07] MEDS: Famotidine 20 MG TABLET 40 MG PO (09:21)
[2024-06-07] MEDS: clonazePAM 1 MG TABLET PO (09:21)
[2024-06-07] MEDS: Cholecalciferol (Vitamin D3) 25 MCG TABLET 50 MCG PO (09:21)
[2024-06-07] MEDS: Lidocaine 4 % Patch ADH..PATCH 2 PATCH TRANSDERMA (09:21)
[2024-06-07] MEDS: buPROPion HCl XL 150 MG TAB.ER.24H PO (09:21)
[2024-06-07] MEDS: Gabapentin 300 MG CAPSULE PO (09:21)
[2024-06-07] MEDS: LIFITEGRAST 5% 1 EACH EYE-BOTH (09:23)
[2024-06-07 09:35] VITALS: BP 121/56; PULSE 104; RESP 18; TEMP 37.3
[2024-06-10 11:07] LABS: Anti Nuclear Antibody Pattern Nuclear, Speckled; Anti Nuclear Antibody Screen POSITIVE (NEGATIVE)
== END 2024-06-07 11:15 | disposition home or self-care (01) | DRG 753 ==
LOC: HO.ED 05-17 09:49 → HO.PGERI 05-18 14:46
PROVIDERS: Internal Medicine; Psychiatry & Neurology Psychiatry; Admitting Provider Psychiatry & Neurology Psychiatry; Emergency Provider Emergency Medicine; PCP Internal Medicine; Visit Provider Psychiatry & Neurology Psychiatry
DX: F31.9 Bipolar disorder, unspecified (principal); R45.851 Suicidal ideations; F43.10 Post-traumatic stress disorder, unspecified; W19.XXXA Unspecified fall, initial encounter; Z20.822 Contact with and (suspected) exposure to COVID-19; Z91.51 Personal history of suicidal behavior; Z79.899 Other long term (current) drug therapy
CPT/HCPCS: 36415; 70450; 72125; 80053; 80061; 80143; 80179; 80307; 81003; 83735; 84443; 84484; 85025; 85652; 86038; 86039; 86431; 87635; 92610; 93005; 99285; S9485

== ENCOUNTER → 2024-05-16 19:15 | Outpatient (BNV) | payer OTHER, SELFPAY | PROVIDERS: Emergency Provider Emergency Medicine; PCP Internal Medicine; Visit Provider Internal Medicine Cardiovascular Disease | DX: R94.31 Abnormal electrocardiogram [ECG] [EKG] (principal); I44.7 Left bundle-branch block, unspecified | CPT/HCPCS: 93010 ==

== ENCOUNTER 2024-05-18 14:42 | Outpatient (BNV) | payer OTHER, SELFPAY | END 2024-06-06 05:56 | CPT/HCPCS: 93010 ==

== ENCOUNTER 2024-05-18 14:42 | Outpatient (BNV) | payer OTHER, SELFPAY | END 2024-06-06 06:00 | PROVIDERS: Admitting Provider Psychiatry & Neurology Psychiatry; Emergency Provider Emergency Medicine; PCP Internal Medicine; Visit Provider Radiology Diagnostic Radiology | DX: M54.2 Cervicalgia (principal); S09.90XA Unspecified injury of head, initial encounter; W19.XXXA Unspecified fall, initial encounter | CPT/HCPCS: 70450; 72125 ==

== ENCOUNTER → 2024-05-18 14:42 | Outpatient (BNV) | payer OTHER, SELFPAY | PROVIDERS: Admitting Provider Psychiatry & Neurology Psychiatry; Emergency Provider Emergency Medicine; PCP Internal Medicine; Visit Provider Psychiatry & Neurology Psychiatry | DX: F31.4 Bipolar disorder, current episode depressed, severe, without psychotic features (principal); F43.10 Post-traumatic stress disorder, unspecified | CPT/HCPCS: 99232 ==

== ENCOUNTER → 2024-05-18 14:42 | Outpatient (BNV) | payer OTHER, SELFPAY | PROVIDERS: Admitting Provider Psychiatry & Neurology Psychiatry; Emergency Provider Emergency Medicine; PCP Internal Medicine; Visit Provider Psychiatry & Neurology Psychiatry | DX: F31.9 Bipolar disorder, unspecified (principal); F43.10 Post-traumatic stress disorder, unspecified | CPT/HCPCS: 90792; 99232 ==

== ENCOUNTER → 2024-05-18 14:42 | Outpatient (BNV) | payer OTHER, SELFPAY | PROVIDERS: Admitting Provider Psychiatry & Neurology Psychiatry; Emergency Provider Emergency Medicine; PCP Internal Medicine; Visit Provider Internal Medicine | DX: M54.2 Cervicalgia (principal) | CPT/HCPCS: 99232; 99499 ==

== ENCOUNTER 2024-06-13 16:39 | Inpatient (IN) | payer OTHER, SELFPAY ==
--- NOTE | ~2024-06-13 | XR_ITS ---
CLINICAL HISTORY: fall swelling 4 view right wrist Comparison: None Findings: No fracture or malalignment. No significant osteoarthritis. IMPRESSION: No acute findings. This document has been electronically signed by: Maxime Andres DO on 06/17/2024 10:30:58
--- NOTE | ~2024-06-13 | XR_ITS ---
CLINICAL HISTORY: R hip pain s p unwittnessed fall 3 view, pelvis and right hip Comparison: None Findings: The bones are intact. No significant arthritic change. The soft tissues are unremarkable. IMPRESSION: No acute findings. This document has been electronically signed by: Nai Gresham MD on 06/17/2024 08:23:52
--- NOTE | 2024-06-13 17:15 | MHC.CARE ---
Patient was assessed by [facility] in the community. Disposition is [facility]. [facility] will fax assessment once completed.
[2024-06-13 17:19] VITALS: BP 118/80; PULSE 74; PULSE 86; RESP 18; TEMP 37; O2SAT 97; O2SAT 98; BMI 19.4
--- NOTE | 2024-06-13 17:25 | ED.PSYCH ---
HPI - Psych General Chief Complaint: Psychiatric Symptoms Stated Complaint: si, sect 12 Time Seen by Provider: 06/13/24 17:08 Source: patient and EMS Mode of arrival: EMS Limitations: no limitations History of Present Illness ED Provider: Dr. Adele Mccormack HPI Narrative: Patient comes to the emergency room complaining of suicidal ideation. Patient states that yesterday she had an argument with her daughter which triggered patient's SI. According to the patient, today she had telehealth appointment with her therapist. Patient initially did not call, patient states that she was contemplating to take all of her medications at once and commit suicide. Patient states that just before she did not, her therapist called and the patient told her therapist what was on her mind. Patient's therapist called 911 in patient was brought to the emergency room. Patient states that she did not take any medications prior to arrival. Patient denies HI Related Data Previous Rx's ?Medication ?Instructions ?Recorded Synthroid 50 mcg PO DAILY 30 days #30 tabs 06/06/24 albuterol sulfate 90 mcg/actuation 2 puff inhalation Q6H PRN for 06/06/24 aerosol inhaler (Ventolin HFA) wheezing 30 days #1 inhaler bisacodyl 5 mg tablet,delayed 10 mg (2 x 5 mg) PO DAILY PRN 06/06/24 release Constipation 30 days #30 tabs bupropion HCl 150 mg 24 hr tablet, 150 mg PO DAILY 30 days #30 tabs 06/06/24 extended release cholecalciferol (vitamin D3) 25 50 mcg (2 x 25 mcg (1,000 unit)) 06/06/24 mcg (1,000 unit) tablet PO DAILY 30 days #60 tabs clonazepam 1 mg tablet 1 mg PO TID 30 days #90 tabs 06/06/24 cyclosporine 0.05 % eye drops in a 1 drp ophthalmic (eye) BID 30 days 06/06/24 dropperette #60 ea dexlansoprazole 60 mg 60 mg PO DAILY PRN Acid Reflux 30 06/06/24 capsule,biphase delayed release days #30 caps (Dexilant) famotidine 40 mg tablet 40 mg PO BID 30 days #60 tabs 06/06/24 gabapentin 300 mg capsule 300 mg PO TID 30 days #90 caps 06/06/24 hydroxyzine HCl 25 mg tablet 25 mg PO Q6H PRN Anxiety 30 days 06/06/24 #60 tabs ibuprofen 400 mg tablet 400 mg PO Q6H PRN Pain, 06/06/24 Moderate(Pain Scale 4-6) 30 days #60 tabs lamotrigine 100 mg tablet 100 mg PO BID 30 days #60 tabs 06/06/24 lidocaine 4 % topical patch 2 patch transdermal DAILY 30 days 06/06/24 (Lidocaine Pain Relief) #60 ea lifitegrast 5 % eye drops in a 1 drp ophthalmic (eye) BID #60 ea 06/06/24 dropperette olanzapine 10 mg tablet 10 mg PO BEDTIME 30 days #30 tabs 06/06/24 ondansetron HCl 8 mg tablet 8 mg PO BEDTIME PRN Nausea 30 days 06/06/24 #30 tabs oxybutynin chloride 5 mg 10 mg (2 x 5 mg) PO DAILY PRN 06/06/24 tablet,extended release 24 hr OVERACTIVE BLADDER 30 days #30 tabs perfluorohexyloctane (PF) 100 % 1 drp ophthalmic (eye) TID #5 mL 06/06/24 eye drops (Miebo (PF)) prazosin 1 mg capsule 1 mg PO BEDTIME 30 days #30 caps 06/06/24 simethicone 80 mg chewable tablet 160 mg (2 x 80 mg) PO QID PRN Gas 06/06/24 (Gas Relief (simethicone)) 30 days #60 tabs sumatriptan succinate 50 mg tablet 50 mg PO DAILY PRN Migraine 06/06/24 Headache 30 days #30 tabs trazodone 50 mg tablet 50 mg PO BEDTIME 30 days #30 tabs 06/06/24 Allergies Allergy/AdvReac Type Severity Reaction Status Date / Time Sulfa (Sulfonamide Allergy Severe Itching Verified 06/13/24 17:23 Antibiotics) codeine [CODEINE] Allergy Intermediate ITCHING Verified 06/13/24 17:23 hydroxychloroquine Allergy Intermediate VOMITING Verified 06/13/24 17:23 [From PLAQUENIL] morphine [MORPHINE] Allergy Intermediate ITCHING Verified 06/13/24 17:23 Estrogens Allergy Mild Unknown Verified 06/13/24 17:23 levothyroxine sodium Allergy Unknown rash,throat Verified 06/13/24 17:23 closes prednisone Allergy Unknown Unknown Verified 06/13/24 17:23 Corticosteroids AdvReac Severe DIFFICULTY Verified 06/13/24 17:23 (Glucocorticoids) BREATHING [CORTICOSTEROIDS (GLUCOCORTICOIDS)] escitalopram [From Lexapro] AdvReac Severe seizure Verified 06/13/24 17:23 meloxicam AdvReac Severe Gastrointestinal Verified 06/13/24 17:23 Upset tadalafil [From Cialis] AdvReac Intermediate Nausea and Verified 06/13/24 17:23 Vomiting acetaminophen [Percocet] AdvReac Unknown Unknown Verified 06/13/24 17:23 duloxetine AdvReac Unknown Unknown Verified 06/13/24 17:23 fluconazole AdvReac Unknown Itch, pain, Verified 06/13/24 17:23 Review of Systems Review of Systems: Constitutional : No Weight loss, No Fever, No Chills, No Night Sweats, No Fatigue, No Malaise ENT/Mouth : No Hearing loss, No Ear Pain, No Nasal Congestion, No Sinus Pain, No Hoarseness, No sore throat, No Rhinorrhea, No Swallowing Difficulty Eyes: No Eye Pain, No Swelling, No Redness, No Foreign Body, No Discharge, No Vision Changes Cardiovascular : No Chest Pain, No SOB, No Dyspnea on Exertion, No Orthopnea, No Edema, No Palpitations Respiratory : No Cough, No Sputum, No Wheezing, No Smoke Exposure, No Dyspnea Gastrointestinal : No Nausea, No Vomiting, No Diarrhea, No Constipation, No abdominal Pain, No Hematochezia, No Melena Genitourinary : no irregular bleeding, No Dysuria, No Urinary Frequency, No Hematuria, No Urinary Incontinence, No Urgency, No Flank Pain, No Urinary Flow Changes, No Hesitancy Musculoskeletal : No joint pain, No Myalgias, No Joint Swelling Skin : No Skin Lesions, No rash Neuro : No Weakness, No Numbness, No Paresthesias, No Loss of Consciousness, No Dizziness, No Headache Psych : No Anxiety/Panic, complaining of depression, suicidal ideation Heme/Lymph: No Bruising, No Bleeding,No Lymphadenopathy Endocrine : No Polyuria, No Polydipsia, No Temperature Intolerance PMFSH Past Medical History Medical History Chronic pruritus Urticaria Vitamin D deficiency Polyarthralgia Small bowel motility disorder Dry mouth and eyes Seborrhea capitis in adult Bilateral sciatica Urinary frequency Abdominal pannus 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 Family history of polyps in the colon Fracture of neck of left humerus Humeral head fracture Chronic gastritis Insomnia Hypothyroidism Seropositive rheumatoid arthritis Leukopenia Gingivitis History of breast cancer Estrogen receptor positive status [ER+] Ductal carcinoma in situ (DCIS) of left breast Autoimmune disorder PTSD (post-traumatic stress disorder) COVID-19 Bilateral knee pain Fibromyalgia Schatzki's ring Rheumatoid arthritis Small bowel motility disorder Osteoporosis Raynaud's disease without gangrene Bipolar depression Anxiety Primary insomnia Constipation Acquired hypothyroidism Systemic lupus erythematosus Left temporomandibular joint disorder, unspecified Surgical History Hx of abdominoplasty History of esophagogastroduodenoscopy (EGD) Hx of colonoscopy History of bilateral mastectomy History of total abdominal hysterectomy and bilateral salpingo-oophorectomy History of cholecystectomy History of tubal ligation History of section Family History Family History Father Hypertension Prostate cancer Mother Breast cancer Hypertension Asthma Maternal Aunt Breast cancer Maternal Grandmother Colon cancer Maternal Aunt Breast cancer Social History Social History Household Members: Children Household Members Other:: 2 daughters Housing: House Do you presently have visiting nurse or other home services: Yes Alcohol intake: never Patient Tobacco Use Status: Never used Tobacco Smoked in Last 30 Days: No e-Cigarette/Vaping Use: Never Used Second Hand Smoke Exposure: No Use of substances other than those prescribed or required for medical reasons: No Advance Directives Date on File: 08/12/20 Do you have a plan to hurt others: No Plan service: No Current occupational status: disabled Sexual orientation: Straight/Heterosexual Gender identity: Female Cognitive needs: Yes (cane) Hearing needs: No Vision needs: Yes (Glasses) Physical Exam Vital Signs: Vital Signs: Last Vital Signs Temp 98.6 F 06/13/24 17:19 Pulse 86 06/13/24 17:19 Resp 18 06/13/24 17:19 Pulse Ox 97 06/13/24 17:19 O2 Del Method Room Air 06/13/24 17:19 BMI result Body Mass Index 19.4 Const: Other: Constitutional : No Weight loss, No Fever, No Chills, No Night Sweats, No Fatigue, No Malaise ENT/Mouth : No Hearing loss, No Ear Pain, No Nasal Congestion, No Sinus Pain, No Hoarseness, No sore throat, No Rhinorrhea, No Swallowing Difficulty Eyes: No Eye Pain, No Swelling, No Redness, No Foreign Body, No Discharge, No Vision Changes Cardiovascular : No Chest Pain, No SOB, No Dyspnea on Exertion, No Orthopnea, No Edema, No Palpitations Respiratory : No Cough, No Sputum, No Wheezing, No Smoke Exposure, No Dyspnea Gastrointestinal : No Nausea, No Vomiting, No Diarrhea, No Constipation, No abdominal Pain, No Hematochezia, No Melena Genitourinary : no irregular bleeding, No Dysuria, No Urinary Frequency, No Hematuria, No Urinary Incontinence, No Urgency, No Flank Pain, No Urinary Flow Changes, No Hesitancy Musculoskeletal : No joint pain, No Myalgias, No Joint Swelling Skin : No Skin Lesions, No rash Neuro : No Weakness, No Numbness, No Paresthesias, No Loss of Consciousness, No Dizziness, No Headache Psych : No Anxiety/Panic, No Depression, No SI/HI/AH/VH, No Social Issues, Heme/Lymph: No Bruising, No Bleeding,No Lymphadenopathy Endocrine : No Polyuria, No Polydipsia, No Temperature Intolerance Course Course Course Narrative: All of patient's labs pending Patient is on a Section 12 Care team consult pending Physician observation started at 19:30 Medical Decision Making Differential Diagnosis Differential Diagnoses: The differential diagnosis associated with the presentation includes (Anxiety, depression, bipolar depression, suicidal ideation) Discharge Plan Discharge Clinical Impression: Depression Prescriptions: No Action trazodone 50 mg Tablet 50 mg PO BEDTIME 30 Days Qty: 30 0RF prazosin 1 mg Capsule 1 mg PO BEDTIME 30 Days Qty: 30 0RF Protocol: Hold for SBP< HOLD for SBP < : 90 clonazepam 1 mg Tablet 1 mg PO TID 30 Days Qty: 90 0RF sumatriptan succinate 50 mg Tablet 50 mg PO DAILY PRN (Reason: Migraine Headache) 30 Days Qty: 30 0RF olanzapine 10 mg Tablet 10 mg PO BEDTIME 30 Days Qty: 30 0RF ibuprofen 400 mg Tablet 400 mg PO Q6H PRN (Reason: Pain, Moderate(Pain Scale 4-6)) 30 Days Qty: 60 0RF gabapentin 300 mg Capsule 300 mg PO TID 30 Days Qty: 90 0RF hydroxyzine HCl 25 mg Tablet 25 mg PO Q6H PRN (Reason: Anxiety) 30 Days Qty: 60 0RF albuterol sulfate [Ventolin HFA] 90 mcg/actuation Hfa Aerosol Inhaler 2 puff inhalation Q6H PRN (Reason: for wheezing) 30 Days Qty: 1 0RF lamotrigine 100 mg Tablet 100 mg PO BID 30 Days Qty: 60 0RF cyclosporine 0.05 % Dropperette 1 drp ophthalmic (eye) BID 30 Days Qty: 60 0RF bupropion HCl 150 mg Tablet Extended Release 24 Hr 150 mg PO DAILY 30 Days Qty: 30 0RF lifitegrast 5 % Dropperette 1 drp ophthalmic (eye) BID Qty: 60 0RF bisacodyl 5 mg Tablet,Delayed Release (Dr/Ec) 10 mg PO DAILY PRN (Reason: Constipation) 30 Days Qty: 30 0RF famotidine 40 mg tablet 40 mg PO BID 30 Days Qty: 60 0RF lidocaine [Lidocaine Pain Relief] 4 % Adhesive Patch,Medicated 2 patch transdermal DAILY 30 Days Qty: 60 0RF Protocol: Apply to: Apply to: both knees oxybutynin chloride 5 mg Tablet Extended Release 24hr 10 mg PO DAILY PRN (Reason: OVERACTIVE BLADDER) 30 Days Qty: 30 0RF simethicone [Gas Relief (simethicone)] 80 mg Tablet,Chewable 160 mg PO QID PRN (Reason: Gas) 30 Days Qty: 60 0RF cholecalciferol (vitamin D3) 25 mcg (1,000 unit) Tablet 50 mcg PO DAILY 30 Days Qty: 60 0RF ondansetron HCl 8 mg tablet 8 mg PO BEDTIME PRN (Reason: Nausea) 30 Days Qty: 30 0RF dexlansoprazole [Dexilant] 60 mg capsule,biphase delayed releas 60 mg PO DAILY PRN (Reason: Acid Reflux) 30 Days Qty: 30 0RF Synthroid 50 mcg tablet 50 mcg PO DAILY 30 Days Qty: 30 0RF Miebo (PF) 100 % drops 1 drp ophthalmic (eye) TID Qty: 5 0RF Interventions: [place]-Suicide Risk Severity Scale Last Done: 06/13/24 17:23 Print Language: Iraqi
--- OUTSIDE RECORDS SUMMARY | 2024-06-13 17:41 | XMS_ITS | Clinical Summary ---
Author Organization [facility] Address [address] [place] [address] Care Team Providers Care Gear Finisher Name Role Phone Chuck Davila MD Primary Care Provider [phone] Surgical History Surgery Date Site/Laterality Comments SECTION PROCEDURE: SECTION TUBAL LIGATION PROCEDURE:TUBAL LIGATION MASTECTOMY PROCEDURE:MASTECTOMY COLONOSCOPY PROCEDURE:COLONOSCOPY HYSTERECTOMY PROCEDURE:HYSTERECTOMY Medical History Medical History Date Comments Breast cancer (CMS/HCC) DX:Breas t cancer (HCC) Disease of thyroid gland DX:Dise ase of thyroid gland Severe depression (CMS/HCC) DX:S evere depression (HCC) Family History Medical History Relation Name Comments Cancer Father prostate Cancer Mother breast Relation Name Status Comments Father Mother Social History Tobacco Use Types Packs/Day Years Used Date Smoking Tobacco: Never Smokeless Tobacco: Never Alcohol Use Standard Drinks/Week Comments Not Currently 0 (1 standard drink = 0.6 oz pur e alcohol) Comments Unknown Sex and Gender Information Value Date Recorded Sex Assigned at Not on file Legal Sex Female 10:11 AM EST Gender Identity Not on file Sexual Orientation Not on file Obstetrics History Last Filed Vital Signs Vital Sign Reading Time Taken Comments Blood Pressure 122/68 07/12/2023 4:11 PM EDT Sitting Left arm Pulse 73 07/12/2023 4:11 PM EDT Temperature - - Respiratory Rate - - Oxygen Saturation - - Inhaled Oxygen Concentration - - Weight 53.8 kg (118 lb 9.6 oz) 07/12/2023 4:11 PM EDT Height 152.4 cm (5') 07/12/2023 4:11 PM EDT Body Mass Index 23.16 07/12/2023 4:11 PM EDT Plan of Treatment Health Maintenance Due Date Last Done Comments Breast Cancer Screening 1963 COVID-19 Vaccine (#1) 1968 DTaP,Tdap,and Td Vaccines (1 - Tdap) 1982 Pneumococcal Vaccine: 50+ Ye ars (1 of 2 - PCV) 1982 Pneumococcal Vaccine: Pediat rics (0 to 5 Years) and At-Risk Patients (6 to 64 Years) (1 of 2 - PCV) 1982 Zoster Vaccines (1 of 2) 1982 Cervical Cancer Screening: P ap Smear 1984 Colorectal Cancer Screening: Colonoscopy 03/29/2022 Depression Screening 03/29/2022 HIV Screening 03/29/2022 Hepatitis C Screening 03/29/2022 Social Influencers of Health Screening 03/29/2022 Influenza Vaccine (#1) 2023 RSV Immunization Patients 60 + Years Old (1 - 1-dose 75+ series) 2038 HIB Vaccines Aged Out No longer eligi ble based on patient's age to complete this topic HPV Vaccines Aged Out No longer eligi ble based on patient's age to complete this topic Hepatitis A Vaccines Aged Out No long er eligible based on patient's age to complete this topic Hepatitis B Vaccines Aged Out No long er eligible based on patient's age to complete this topic IPV Vaccines Aged Out No longer eligi ble based on patient's age to complete this topic MMR Vaccines Aged Out No longer eligi ble based on patient's age to complete this topic Meningococcal ACWY Vaccine Aged Out N o longer eligible based on patient's age to complete this topic Meningococcal B Vacine Aged Out No lo nger eligible based on patient's age to complete this topic RSV Immunization Patients Un dana 20 months Aged Out No longer eligible b ased on patient's age to complete this topic Varicella Vaccines Aged Out No longer eligible based on patient's age to complete this topic Care Teams Gear Finisher Relationship Specialty Start Date End Date Chuck Davila MD [address] [place] [address] Dr [address] [place], [place] PCP - General 04/07/23
--- OUTSIDE RECORDS SUMMARY | 2024-06-13 17:41 | XMS_ITS | Clinical Summary ---
Author Organization [facility] Address [address] [place] [address] Care Team Providers Care Terrazzo Mechanic Name Role Phone Chuck Davila MD Primary Care Provider [phone] Allergies Active Allergy Reactions Criticality Noted Date Comments Codeine 06/09/2023 Levothyroxine 06/09/2023 Morphine 06/09/2023 Oxycodone 06/09/2023 Oxycodone-Acetaminophen 06/09/2023 Hydroxychloroquine 06/09/2023 Prednisone 06/09/2023 Tramadol 06/09/2023 Medications Medication Sig Dispensed Refills Start Date End Date Status amitriptyline (ELAVIL) tablet 50 mg TOME TRUDY TABLETA TODOS LOS POSADAS AL ACOSTARSE FOR 30 DAYS 0 04/07/2023 Active bisacodyl 5 MG EC tablet TOME DOS TABLETAS POR V A ORAL AL ACOSTARSE 0 05/07/2023 Active buPROPion (WELLBUTRIN XL) 150 MG 24 hr tablet TOME TRUDY TABLETA TODOS LOS D EN LA MA DANA SEG N LO INDICADO 0 05/01/2023 Active calcipotriene (DOVONOX) 0.005 % cream APPLY TO ARMS, TRUNK, AND LEGS TWICE DAILY 0 05/04/2023 Active Calcium Citrate 250 MG TABS TAKE 500 MG (2 X 250 MG CALCIUM) ORALLY 2 TIMES A DAY 0 04/20/2023 Active D3 Super Strength 50 MCG (1999) CAPS TOME TRUDY C PSULA TODOS LOS D 0 05/06/2023 Active clonazePAM (KlonoPIN) 1 MG tablet TOME TRUDY TABLETA QING VECES AL D A CUANDO SEA NECESARIO 0 05/29/2023 Active Dexilant 60 MG capsule TAKE 1 CAPSULE ORALLY DAILY FOR 30 DAYS 0 05/28/2023 Active doxepin (SINEquan) 10 MG capsule 0 06/05/2023 Active Synthroid 50 MCG tablet TOME TRUDY TABLETA TODOS LOS D 0 03/13/2023 Active ondansetron (ZOFRAN-ODT) 4 MG disintegrating tablet DISSOLVE 1 TABLET ORALLY EVERY 8 HOURS NEEDED FOR FOR NAUSEA/VOMITING 0 05/05/2023 Active Simethicone Ultra Strength 180 MG capsule TOME 1 C PSULA POR V A ORAL CUATRO VECES AL D A AFTER MEALS FOR 30 DAYS 0 05/30/2023 Active traMADol (ULTRAM) 50 MG tablet TOME TRUDY TABLETA CADA SEIS HORAS CUANDO SEA NECESARIO PARA EL DOLOR SCALE SCORE 4-6 0 05/08/2023 Active traZODone (DESYREL) 50 MG tablet TOME TRUDY TABLETA TODOS LOS D AL ACOSTARSE CUANDO SEA NECESARIO 0 04/28/2023 Active Active Problems Problem Noted Date Diagnosed Date Malignant neoplasm of overla pping sites of both breasts in female, estrogen receptor positive 06/09/2023 Leukopenia 06/09/2023 Family History Medical History Relation Name Comments Cancer Father prostate Cancer Mother breast Relation Name Status Comments Father Mother Social History Tobacco Use Types Packs/Day Years Used Date Smoking Tobacco: Never Smokeless Tobacco: Never Alcohol Use Standard Drinks/Week Comments Not Currently 0 (1 standard drink = 0.6 oz pur e alcohol) Sex and Gender Information Value Date Recorded Sex Assigned at Female 04/07/2023 2:18 PM EST Gender Identity Not on file Sexual Orientation Not on file Job Start Date Occupation Industry Not on file Not on file Not on file Last Filed Vital Signs Vital Sign Reading Time Taken Comments Blood Pressure 122/68 07/12/2023 4:11 PM EDT Pulse 73 07/12/2023 4:11 PM EDT Temperature 36.9 ??C (98.4 ??F) 07/12/2023 4:11 PM ED T Respiratory Rate - - Oxygen Saturation 100% 07/12/2023 4:11 PM EDT Inhaled Oxygen Concentration - - Weight 53.8 kg (118 lb 9.6 oz) 07/12/2023 4:11 P M EDT Height 152.4 cm (5') 07/12/2023 4:11 PM EDT Body Mass Index 23.16 07/12/2023 4:11 PM EDT Plan of Treatment Health Maintenance Due Date Last Done Comments Hepatitis C Screening 1963 COVID-19 Vaccine (#1) 1968 Pneumococcal Vaccine (1 of 2 - PCV) 1969 Depression Screening 1975 Preventative Health Evaluation 1981 DTap / Tdap / Td (1 - Tdap) 1982 Shingrix-Zoster Vaccine (1 of 2) 1982 Cervical Cancer Screening (P ap Smear) 1984 Colon Cancer Screening (Colonoscopy) 2008 Breast Cancer Screening (Mammogram) 2013 Influenza Vaccine (#1) 2023 RSV Adult > 60+ Yrs or Pregn ant (1 - 1-dose 75+ series) 2038 Hepatitis B Vaccines Aged Out No long er eligible based on patient's age to complete this topic RSV Ped < 20 months Aged Out No longe r eligible based on patient's age to complete this topic Care Teams Terrazzo Mechanic Relationship Specialty Start Date End Date Chuck Davila MD [address] [place] [address] [place] [address] PCP - General Internal Medicine 04/07/23
--- OUTSIDE RECORDS SUMMARY | 2024-06-13 17:41 | XMS_ITS | Clinical Summary ---
Author Organization Unknown Care Team Providers Care Assistant Import Manager Name Role Phone FELIPE GAMBOA, BETHANY Unavailable Unavailable NICHOLE PASTOR, CHRISTIE Unavailable Unavailable Payers Payer Name Policy Type Policy Number Effective Date Expira tion Date [facility] ([facility] [place] [facility] [id number] MEDICAID [facility] [id number] Problems Condition Name Condition Details Condition Category Status Onset Date Resolution Date Last Treatment Date Treating Clinician Comments BIPOLAR DISORDER, UNSPECIFIED Active 05-19 00:00: 00 MAJOR DEPRESSV DISORDER, RECURRENT SEVERE W/O PSYCH FEATURES Active 06-05 00:00: 00 POST-TRAUMAT IC STRESS DISORDER, UNSPECIFIED Active 05-19 00:00: 00 Allergies, Adverse Reactions, Alerts Allergy Name Allergy Type Status Severity Reaction(s) Onset Date Inactive Date Treating Clinician Comments STEROIDS Propensity to adverse reactions Active 06-08 10:20: 27 CODEINE SULFATES Propensity to adverse reactions Active 06-08 10:20: 53 MORPHINE ANALOUGES Propensity to adverse reactions Active 06-08 10:21: 14 LEVOTHYROXIN E SODIUM Propensity to adverse reactions Active 06-08 10:25: 15 DULOXETINE HCL Propensity to adverse reactions Active 06-08 10:26: 50 FLUCONAZOLE Propensity to adverse reactions Active 06-08 10:27: 14 HYDROXYCHLOR OQUINE Propensity to adverse reactions Active 06-10 09:32: 23 ESTROGEN Propensity to adverse reactions Active 06-10 09:32: 35 Medications Ordered Medication Name Filled Medication Name Start Date Stop Date Current Medication? Ordering Clinician Indication Dosage Frequency Signature (SIG) Comments Components ACETAMINOPH EN ORAL 11-16 00:00: 00 12-16 00:00 :00 No 500 mg 500 mg (route: ) Alternate Route: TOME DOS TABLETAS POR V?A ORAL . Med Classific ation: ANALGESIC , ANTI-INFL AMMATORY OR ANTIPYRET IC TIZANIDINE ORAL 0 8-14 00:00: 00 12-26 00:00 :00 No 2 mg 2 mg (route: ) Med Classific ation: LOCOMOTOR SYSTEM ALENDRONATE ORAL 0 2-13 00:00: 00 07-11 00:00 :00 No 70 mg EN LA MA?DANA SEMANALMEN TE AT 70 mg EN LA MA?DANA SEMANALMEN TE AT (route: ) Alternate Route: TOME TRUDY TABLETA POR V?A ORAL . Med Classific ation: ENDOCRINE AMOXICILLIN ORAL 0 7-08 00:00: 00 11-12 00:00 :00 No 500 mg 500 mg (route: ) Med Classific ation: ANTI-INFE CTIVE AGENTS AMOXICILLIN ORAL 2017-05 0-09 00:00: 00 02-13 00:00 :00 No 500 mg1 CAPSULE EVERY 8 HOURS 500 mg1 CAPSULE EVERY 8 HOURS (route: ) Alternate Route: BY MOUTH . Med Classific ation: ANTI-INFE CTIVE AGENTS SENNA ORAL 0 4-12 00:00: 00 09-09 00:00 :00 No 8.6 mg 8.6 mg (route: ) Alternate Route: TOME DOS TABLETAS POR V?A ORAL . Med Classific ation: GASTROINT ESTINAL THERAPY AGENTS AMOXICILLIN -POTASSIUM CLAVULANATE ORAL 0 5-14 00:00: 00 09-21 00:00 :00 No 500-125 mg 500-125 mg (route: ) Med Classific ation: ANTI-INFE CTIVE AGENTS OMEPRAZOLE ORAL 0 9-06 00:00: 00 01-14 14:30 :50 No 20 mg 20 mg (route: ) Med Classific ation: GASTROINT ESTINAL THERAPY AGENTS KETOROLAC ORAL 0 4-11 00:00: 00 08-13 00:00 :00 No 10 mg 10 mg (route: ) Alternate Route: TOME TRUDY TABLETA POR V?A ORAL . Med Classific ation: ANALGESIC , ANTI-INFL AMMATORY OR ANTIPYRET IC MECLIZINE ORAL 3-15 00:00: 00 08-12 00:00 :00 No 25 mg 25 mg (route: ) Med Classific ation: GASTROINT ESTINAL THERAPY AGENTS IBUPROFEN ORAL 2017-05 1-05 00:00: 00 03-06 00:00 :00 No 400 mg1 TABLET EVERY 4 TO 6 HOURS NEEDED 400 mg1 TABLET EVERY 4 TO 6 HOURS NEEDED (route: ) Alternate Route: BY MOUTH . Med Classific ation: ANALGESIC , ANTI-INFL AMMATORY OR ANTIPYRET IC IBUPROFEN ORAL 7- 00:00: 00 11-03 00:00 :00 No 800 mg 800 mg (route: ) Med Classific ation: ANALGESIC , ANTI-INFL AMMATORY OR ANTIPYRET IC CHLORHEXIDI NE GLUCONATE MOUTH AND THROAT 7-29 00:00: 00 12-11 00:00 :00 No 0.12 %ENJUAG UE CON 15 ML 0.12 %ENJUAGUE CON 15 ML (route: ) Med Classific ation: MOUTH-THR OAT-DENTA L - PREPARATI ONS BUTALBITAL- ACETAMINOPH EN-CAFFEINE ORAL 09 00:00: 00 12-06 00:00 :00 No 50-325- 40 mg 50-325-40 mg (route: ) Med Classific ation: ANALGESIC , ANTI-INFL AMMATORY OR ANTIPYRET IC BUTALBITAL- ACETAMINOPH EN-CAFFEINE ORAL 5-22 00:00: 00 10-19 00:00 :00 No 50-325- 40 mg 50-325-40 mg (route: ) Med Classific ation: ANALGESIC , ANTI-INFL AMMATORY OR ANTIPYRET IC RISPERIDONE ORAL 0 4-25 00:00: 00 09-22 00:00 :00 No 1 mg 1 mg (route: ) Med Classific ation: CENTRAL NERVOUS SYSTEM AGENTS HYDROXYZINE HCL ORAL 8-09 00:00: 00 12-17 00:00 :00 No 25 mg [place]A [place] SE[place] NECESARIO FOR 10 DAYS 25 mg CADA [place] CU[place] SEA NECESARIO FOR 10 DAYS (route: ) Alternate Route: TOME TRUDY TABLETA POR V?A ORAL . Med Classific ation: CENTRAL NERVOUS SYSTEM AGENTS FOLIC ACID ORAL 2017-05 00:00: 00 03-11 00:00 :00 No 1 mg1 TABLET EVERY DAY 1 mg1 TABLET EVERY DAY (route: ) Med Classific ation: ELECTROLY TE BALANCE-N UTRITIONA L PRODUCTS BUSPIRONE ORAL 19 00:00: 00 12-16 00:00 :00 No 10 mg 10 mg (route: ) Alternate Route: TOME TRUDY TABLETA POR V?A ORAL . Med Classific ation: CENTRAL NERVOUS SYSTEM AGENTS CYCLOBENZAP RINE ORAL 4-29 00:00: 00 09-01 00:00 :00 No 10 mg 10 mg (route: ) Med Classific ation: LOCOMOTOR SYSTEM CYCLOBENZAP RINE ORAL 3-28 00:00: 00 08-25 00:00 :00 No 5 mg 5 mg (route: ) Med Classific ation: LOCOMOTOR SYSTEM CYCLOBENZAP RINE ORAL 2017-05 00:00: 00 03-11 00:00 :00 No 5 mg1 TABLET AT BEDTIME NEEDED 5 mg1 TABLET AT BEDTIME NEEDED (route: ) Alternate Route: BY MOUTH . Med Classific ation: LOCOMOTOR SYSTEM TRAZODONE ORAL 2017-05 00:00: 00 03-31 00:00 :00 No 100 mg2 TABLETS AT BEDTIME 100 mg2 TABLETS AT BEDTIME (route: ) Alternate Route: BY MOUTH . Med Classific ation: CENTRAL NERVOUS SYSTEM AGENTS CLINDAMYCIN HCL ORAL 2017-05 00:00: 00 03-09 00:00 :00 No 150 mg1 CAPSULE EVERY 6 HOURS 150 mg1 CAPSULE EVERY 6 HOURS (route: ) Alternate Route: BY MOUTH . Med Classific ation: ANTI-INFE CTIVE AGENTS BISACODYL ORAL 16 00:00: 00 11-14 00:00 :00 No 5 mg2 TABLETS FOR 1 DOSE AT BEDTIME 5 mg2 TABLETS FOR 1 DOSE AT BEDTIME (route: ) Alternate Route: BY MOUTH . Med Classific ation: GASTROINT ESTINAL THERAPY AGENTS BISACODYL ORAL 12 00:00: 00 07-11 00:00 :00 No 5 mg 5 mg (route: ) Alternate Route: TOME DOS TABLETAS POR V?A ORAL . Med Classific ation: GASTROINT ESTINAL THERAPY AGENTS FLUOROMETHO LONE OPHTHALMIC (EYE) 2017-05 0-05 00:00: 00 03-04 00:00 :00 No 0.1 %1 DROP THREE TIMES DAILY 0.1 %1 DROP THREE TIMES DAILY (route: ) Alternate Route: IN THE RIGHT EYE . Med Classific ation: OPHTHALMI C AGENTS BUPROPION HCL ORAL 906 00:00: 00 01-14 14:30 :26 No 150 mg 150 mg (route: ) Med Classific ation: CENTRAL NERVOUS SYSTEM AGENTS BUPROPION HCL ORAL 2017-05 00:00: 00 03-31 00:00 :00 No 150 mg1 TABLET EVERY 150 mg1 TABLET EVERY (route: ) Alternate Route: BY MOUTH . Med Classific ation: CENTRAL NERVOUS SYSTEM AGENTS BUPROPION HCL ORAL 2017-05 00:00: 00 03-31 00:00 :00 No 300 mg1 TABLET EVERY 300 mg1 TABLET EVERY (route: ) Alternate Route: BY MOUTH . Med Classific ation: CENTRAL NERVOUS SYSTEM AGENTS PREDNISOLON E ACETATE OPHTHALMIC (EYE) 2017-05 00:00: 00 02-28 00:00 :00 No 1 %1 DROP EVERY DAY DIRECTED 1 %1 DROP EVERY DAY DIRECTED (route: ) Alternate Route: IN THE LEFT EYE . Med Classific ation: OPHTHALMI C AGENTS GABAPENTIN ORAL 12-14 00:00: 00 01-14 14:30 :09 No 300 mg 300 mg (route: ) Med Classific ation: CENTRAL NERVOUS SYSTEM AGENTS CLONAZEPAM ORAL 12-25 00:00: 00 01-14 14:30 :37 No 1 mg 1 mg (route: ) Med Classific ation: CENTRAL NERVOUS SYSTEM AGENTS CLONAZEPAM ORAL 06-27 00:00: 00 07-27 00:00 :00 No 1 mg 1 mg (route: ) Alternate Route: TOME TRUDY TABLETA QING VECES AL D?A CUANDO SEA NECESARIO PARA LA ANSIED AD . Med Classific ation: CENTRAL NERVOUS SYSTEM AGENTS CLONAZEPAM ORAL 2017-05 00:00: 05-02 00:00 :00 No 1 mg 1 mg (route: ) Med Classific ation: CENTRAL NERVOUS SYSTEM AGENTS CLONAZEPAM ORAL 2017-05 00:00: 00 03-31 00:00 :00 No 1 mg1 TABLET THREE TIMES DAILY NEEDED 1 mg1 TABLET THREE TIMES DAILY NEEDED (route: ) Alternate Route: BY MOUTH . Med Classific ation: CENTRAL NERVOUS SYSTEM AGENTS CLONAZEPAM ORAL 01-17 00:00: 02-16 00:00 :00 No 1 mg1 TABLET THREE TIMES DAILY NEEDED 1 mg1 TABLET THREE TIMES DAILY NEEDED (route: ) Alternate Route: BY MOUTH . Med Classific ation: CENTRAL NERVOUS SYSTEM AGENTS TYLENOL ARTHRITIS PAIN ORAL 04 00:00: 00 09-01 00:00 :00 No 650 mg 650 mg (route: ) Med Classific ation: ANALGESIC , ANTI-INFL AMMATORY OR ANTIPYRET IC METHOTREXAT E SODIUM ORAL 125 00:00: 00 06-22 00:00 :00 No 2.5 mg 2.5 mg (route: ) Alternate Route: TOME CUATRO TABLETAS POR V?A ORAL . Med Classific ation: ANALGESIC , ANTI-INFL AMMATORY OR ANTIPYRET IC METHOTREXAT E SODIUM ORAL 2017-05 00:00: 00 03-09 00:00 :00 No 2.5 mg4 TABLETS ONCE A WEEK 2.5 mg4 TABLETS ONCE A WEEK (route: ) Alternate Route: BY MOUTH . Med Classific ation: ANALGESIC , ANTI-INFL AMMATORY OR ANTIPYRET IC SENNA LAX ORAL 3-12 00:00: 00 08-09 00:00 :00 No 8.6 mg 8.6 mg (route: ) Alternate Route: TOME DOS TABLETAS POR V?A ORAL . Med Classific ation: GASTROINT ESTINAL THERAPY AGENTS DICLOFENAC SODIUM TOPICAL 8-05 00:00: 00 01-02 00:00 :00 No 1 % 1 % (route: ) Med Classific ation: DERMATOLO GICAL ARIPIPRAZOL E ORAL 2017-05 0-09 00:00: 00 03-08 00:00 :00 No 10 mg1 TABLET AT BEDTIME DIRECTED 10 mg1 TABLET AT BEDTIME DIRECTED (route: ) Alternate Route: BY MOUTH . Med Classific ation: CENTRAL NERVOUS SYSTEM AGENTS ARIPIPRAZOL E ORAL 01-17 00:00: 00 02-16 00:00 :00 No 5 mg1 TABLET AT BEDTIME DIRECTED 5 mg1 TABLET AT BEDTIME DIRECTED (route: ) Med Classific ation: CENTRAL NERVOUS SYSTEM AGENTS ARIPIPRAZOL E ORAL 08-06 00:00: 00 09-05 00:00 :00 No 15 mg 15 mg (route: ) Med Classific ation: CENTRAL NERVOUS SYSTEM AGENTS MOXIFLOXACI N OPHTHALMIC (EYE) 2017-05 0 00:00: 00 03-15 00:00 :00 No 0.5 %1 DROP THREE TIMES DAILY START 2 DAYS BEFOR E SURGERY THEN INCREASE OR DECREASE DIRECTED 0.5 %1 DROP THREE TIMES DAILY START 2 DAYS BEFOR E SURGERY THEN INCREASE OR DECREASE DIRECTED (route: ) Alternate Route: IN THE AFFECTED EYE . Med Classific ation: OPHTHALMI C AGENTS MOXIFLOXACI N OPHTHALMIC (EYE) 18 00:00: 00 02-05 00:00 :00 No 0.5 %1 DROP THREE TIMES DAILY START 2 DAYS BEFOR E SURGERY THEN INCREASE OR DECREASE DIRECTED 0.5 %1 DROP THREE TIMES DAILY START 2 DAYS BEFOR E SURGERY THEN INCREASE OR DECREASE DIRECTED (route: ) Alternate Route: IN THE AFFECTED EYE . Med Classific ation: OPHTHALMI C AGENTS READI-CAT 2 ORAL 18 00:00: 00 10-17 00:00 :00 No 2 % (w/v) 2 % (w/v) (route: ) Alternate Route: SEG?N LO INDICADO BY . Med Classific ation: DIAGNOSTI C AGENTS NITROFURANT OIN MONOHYDRATE /MACROCRYST ALS ORAL 2-27 00:00: 00 07-02 00:00 :00 No 100 mg1 CAPSULE EVERY TWELVE HOURS WITH FOOD FOR 5 DAYS 100 mg1 CAPSULE EVERY TWELVE HOURS WITH FOOD FOR 5 DAYS (route: ) Alternate Route: BY MOUTH . Med Classific ation: ANTI-INFE CTIVE AGENTS VOLTAREN TOPICAL 5-20 00:00: 00 10-17 00:00 :00 No 1 % 1 % (route: ) Med Classific ation: DERMATOLO GICAL GAVILYTE-G ORAL 3-12 00:00: 00 07-11 00:00 :00 No 236-22. 74-6.74 -5.86 gram 236-22.74- 6.74 -5.86 gram (route: ) Alternate Route: SEG?N LO INDICADO BY . Med Classific ation: GASTROINT ESTINAL THERAPY AGENTS LATUDA ORAL 10-02 00:00: 00 11-01 00:00 :00 No 20 mg1 TABLET ONCE A DAY 20 mg1 TABLET ONCE A DAY (route: ) Alternate Route: BY MOUTH . Med Classific ation: CENTRAL NERVOUS SYSTEM AGENTS ASPERCREME (LIDOCAINE HCL) TOPICAL 12-07 00:00: 00 12-17 00:00 :00 No 4 % APLIQUE AL ?JORGE AFECTADA DOS VECES AL D?A SEG?N LO INDICADO FOR 10 DAY 4 % APLIQUE AL ?JORGE AFECTADA DOS VECES AL D?A SEG?N LO INDICADO FOR 10 DAY (route: ) Med Classific ation: DERMATOLO GICAL Vital Signs Vital Name Observation Time Observation Value Commen ts Temperature 2024-06-10 16:17:00.000 96.9 [degF] Temperature 2024-06-08 10:07:00.000 98.6 [degF] BMI (%) 2024-06-08 10:07:00.000 21 kg/m2 Height 2024-06-08 10:07:00.000 61 [in_us] Pulse 2024-06-10 16:17:00.000 72 /min Pulse 2024-06-08 10:07:00.000 60 /min O2 Saturation (%) 2024-06-08 10:09:00.000 98 % Respirations 2024-06-10 16:17:00.000 16 /min Respirations 2024-06-08 10:07:00.000 18 /min Weight (lbs) 2024-06-08 10:07:00.000 112 [lb_av] Systolic Blood Pressure 2024-06-10 16:17:00.000 132 mm [Hg] Systolic Blood Pressure 2024-06-08 10:07:00.000 120 mm [Hg] Diastolic Blood Pressure 2024-06-10 16:17:00.000 70 mm [Hg] Diastolic Blood Pressure 2024-06-08 10:07:00.000 70 mm [Hg] Plan of Treatment Planned Activity Planned Date Details Comments Future Scheduled Test SKILLED NU RSE TO EVALUATE PATIENT, IDENTIFY PRIMARY AND CO-MORBID CONDITIONS CODED PER CODING GUIDELINES, AND DEVELOP PATIENT SPECIFIC PLAN OF CARE THAT INCLUDES PATIENT GOAL FOR HOME HEALTH. [code = SKILLED NURSE TO EVALUATE PATIENT, IDENTIFY PRIMARY AND CO-MORBID CONDITIONS CODED PER CODING GUIDELINES, AND DEVELOP PATIENT SPECIFIC PLAN OF CARE THAT INCLUDES PATIENT GOAL FOR HOME HEALTH.] Future Scheduled Test SKILLED NU RSE TO O/A OF PATIENTS MENTAL/BEHAVIORAL STATUS, ASSESS VITAL SIGNS 3WK8 ALLOW 2 PRNS FOR MEDICATION MANAGEMENT. [code = SKILLED NURSE TO O/A OF PATIENTS MENTAL/BEHAVIORAL STATUS, ASSESS VITAL SIGNS 3WK8 ALLOW 2 PRNS FOR MEDICATION MANAGEMENT.] Future Scheduled Test SKILLED NU RSE FOR O/A OF PATIENT'S RISK FOR VIOLENCE TOWARD SELF AND TO PROVIDE INTERVENTION TECHNIQUES TO PROMOTE SAFETY TO PATIENT AND OTHERS [code = SKILLED NURSE FOR O/A OF PATIENT'S RISK FOR VIOLENCE TOWARD SELF AND TO PROVIDE INTERVENTION TECHNIQUES TO PROMOTE SAFETY TO PATIENT AND OTHERS] Future Scheduled Test SKILLED NU RSE FOR O/A OF ALTERED MOOD [code = SKILLED NURSE FOR O/A OF ALTERED MOOD] Future Scheduled Test MEDICATION S WILL BE HELD AND STORED IN LOCKBOX [code = MEDICATIONS WILL BE HELD AND STORED IN LOCKBOX] Future Scheduled Test SKILLED NU RSE FOR O/A OF GENERAL HEALTH STATUS OF PAIN, CARDIAC, RESPIRATORY, GASTROINTESTINAL, GENITOURINARY, SKIN, NEUROLOGIC, ENDOCRINE SYSTEMS TO IDENTIFY CHANGES ASSOCIATED WITH EXACERBATION FOR EARLY INTERVENTION OF COMPLICATIONS 3WK8 [code = SKILLED NURSE FOR O/A OF GENERAL HEALTH STATUS OF PAIN, CARDIAC, RESPIRATORY, GASTROINTESTINAL, GENITOURINARY, SKIN, NEUROLOGIC, ENDOCRINE SYSTEMS TO IDENTIFY CHANGES ASSOCIATED WITH EXACERBATION FOR EARLY INTERVENTION OF COMPLICATIONS 3WK8 ] Future Scheduled Test SKILLED NU RSE FOR O/A AND SKILLED TEACHING OF COPING SKILLS TO MANAGE ANXIETY AND MAINTAIN SAFETY. [code = SKILLED NURSE FOR O/A AND SKILLED TEACHING OF COPING SKILLS TO MANAGE ANXIETY AND MAINTAIN SAFETY.] Future Scheduled Test SKILLED NU RSE FOR O/A AND SKILLED TEACHING RELATED TO MANAGEMENT OF DEPRESSIVE SYMPTOMS AND/OR DEPRESSION. SN TO REPORT SIGNIFICANT CHANGE IN DEPRESSIVE SYMPTOMS TO CLINICAL PROVIDER FOR EARLY INTERVENTION. [code = SKILLED NURSE FOR O/A AND SKILLED TEACHING RELATED TO MANAGEMENT OF DEPRESSIVE SYMPTOMS AND/OR DEPRESSION. SN TO REPORT SIGNIFICANT CHANGE IN DEPRESSIVE SYMPTOMS TO CLINICAL PROVIDER FOR EARLY INTERVENTION.] Future Scheduled Test SKILLED NU RSE FOR O/A OF SELF-CARE DEFICITS AND TO PROVIDE TEACHING RELATED TO SAFE PROVISION OF ADLS. [code = SKILLED NURSE FOR O/A OF SELF-CARE DEFICITS AND TO PROVIDE TEACHING RELATED TO SAFE PROVISION OF ADLS.] Future Scheduled Test SKILLED NU RSE TO PERFORM HOME SAFETY AND FALL ASSESSMENT AND PROVIDE INSTRUCTION TO IMPLEMENT HOME SAFETY AND FALL PREVENTION STRATEGIES. [code = SKILLED NURSE TO PERFORM HOME SAFETY AND FALL ASSESSMENT AND PROVIDE INSTRUCTION TO IMPLEMENT HOME SAFETY AND FALL PREVENTION STRATEGIES.] Future Scheduled Test SKILLED NU RSE FOR OBSERVATION AND ASSESSMENT OF PATIENTS PAIN LEVEL AND EFFECTIVENESS OF PAIN MANAGEMENT REGIMEN. SKILLED NURSE TO INSTRUCT PATIENT/CAREGIVER REGARDING PHARMACOLOGIC AND NON-PHARMACOLOGIC PAIN CONTROL MEASURES. SKILLED NURSE TO REPORT TO PHYSICIAN IF PAIN IS UNCONTROLLED WITH CURRENT PAIN MANAGEMENT REGIMEN. [code = SKILLED NURSE FOR OBSERVATION AND ASSESSMENT OF PATIENTS PAIN LEVEL AND EFFECTIVENESS OF PAIN MANAGEMENT REGIMEN. SKILLED NURSE TO INSTRUCT PATIENT/CAREGIVER REGARDING PHARMACOLOGIC AND NON-PHARMACOLOGIC PAIN CONTROL MEASURES. SKILLED NURSE TO REPORT TO PHYSICIAN IF PAIN IS UNCONTROLLED WITH CURRENT PAIN MANAGEMENT REGIMEN.] Future Scheduled Test SKILLED NU RSE TO ASSESS PATIENT'S SKIN INTEGRITY AND INSTRUCT PATIENT/CAREGIVER ON MEASURES TO PREVENT PRESSURE ULCERS. [code = SKILLED NURSE TO ASSESS PATIENT'S SKIN INTEGRITY AND INSTRUCT PATIENT/CAREGIVER ON MEASURES TO PREVENT PRESSURE ULCERS.] Future Scheduled Test SKILLED NU RSE FOR O/A OF RESPIRATORY SYSTEM TO IDENTIFY CHANGES ASSOCIATED WITH EXACERBATION AND TO PROVIDE SKILLED TEACHING ON MANAGEMENT OF SOB RESPIRATORY DISEASE PROCESS. [code = SKILLED NURSE FOR O/A OF RESPIRATORY SYSTEM TO IDENTIFY CHANGES ASSOCIATED WITH EXACERBATION AND TO PROVIDE SKILLED TEACHING ON MANAGEMENT OF SOB RESPIRATORY DISEASE PROCESS.] Future Scheduled Test SKILLED NU RSE FOR O/A AND TEACHING RELATED TO HISTORYOFBREASTCANCER) INCLUDING SIGNS AND SYMPTOMS OF DISEASE PROGRESSION, TREATMENT, AND MANAGEMENT OF POTENTIAL SIDE EFFECTS. [code = SKILLED NURSE FOR O/A AND TEACHING RELATED TO HISTORYOFBREASTCANCER) INCLUDING SIGNS AND SYMPTOMS OF DISEASE PROGRESSION, TREATMENT, AND MANAGEMENT OF POTENTIAL SIDE EFFECTS.] Future Scheduled Test PHYSICAL T HERAPIST TO EVALUATE PATIENT FOR EVALUATION [code = PHYSICAL THERAPIST TO EVALUATE PATIENT FOR EVALUATION ] Future Scheduled Test OCCUPATION AL THERAPIST TO EVALUATE PATIENT FOR OT EVALUATION [code = OCCUPATIONAL THERAPIST TO EVALUATE PATIENT FOR OT EVALUATION ] Future Scheduled Test SKILLED NU RSE TO PROVIDE TEACHING/REINFORCEMENT RELATED TO URINARY INCONTINENCE. [code = SKILLED NURSE TO PROVIDE TEACHING/REINFORCEMENT RELATED TO URINARY INCONTINENCE.] Future Scheduled Test PATIENT STOVALL S A RISK OF HOSPITALIZATION AND ED USE. SKILLED NURSE TO ESTABLISH SUPPORT MEASURES TO MINIMIZE RISK OF HOSPITALIZATION AND ED USE, AND INSTRUCT PATIENT/CAREGIVER ON METHODS TO REDUCE AVOIDABLE HOSPITALIZATION AND ED USE. [code = PATIENT HAS A RISK OF HOSPITALIZATION AND ED USE. SKILLED NURSE TO ESTABLISH SUPPORT MEASURES TO MINIMIZE RISK OF HOSPITALIZATION AND ED USE, AND INSTRUCT PATIENT/CAREGIVER ON METHODS TO REDUCE AVOIDABLE HOSPITALIZATION AND ED USE.] Future Scheduled Test SKILLED NU RSE TO REVIEW PATIENT MEDICATIONS. INSTRUCT PATIENT/CAREGIVER ON MONITORING OF EFFECTIVENESS, ADVERSE DRUG REACTIONS, SIDE EFFECTS OF ALL MEDICATIONS (PRESCRIPTION/-OTC), AND HOW AND WHEN TO REPORT PROBLEMS. [code = SKILLED NURSE TO REVIEW PATIENT MEDICATIONS. INSTRUCT PATIENT/CAREGIVER ON MONITORING OF EFFECTIVENESS, ADVERSE DRUG REACTIONS, SIDE EFFECTS OF ALL MEDICATIONS (PRESCRIPTION/-OTC), AND HOW AND WHEN TO REPORT PROBLEMS.] Future Scheduled Test SKILLED NU RSE FOR O/A AND SKILLED TEACHING RELATED TO SIGNS AND SYMPTOMS AND MANAGEMENT OF FIBROMYALGIA [code = SKILLED NURSE FOR O/A AND SKILLED TEACHING RELATED TO SIGNS AND SYMPTOMS AND MANAGEMENT OF FIBROMYALGIA ] Future Scheduled Test SKILLED NU RSE FOR O/A OF MUSCULOSKELETAL STATUS AND TEACHING ON MEASURES TO MANAGE MUSCLE WEAKNESS WHEN AND TO MAINTAIN SAFETY WITH ACTIVITY [code = SKILLED NURSE FOR O/A OF MUSCULOSKELETAL STATUS AND TEACHING ON MEASURES TO MANAGE MUSCLE WEAKNESS WHEN AND TO MAINTAIN SAFETY WITH ACTIVITY] Future Scheduled Test SKILLED NU RSE TO ASSESS PATIENTS PSYCHOSOCIAL STATUS TO IDENTIFY POTENTIAL ISSUES THAT MAY COMPLICATE THE PROVISION OF THE PLAN OF CARE INCLUDING THE PATIENTS ABILITY TO ACCESS COMMUNITY RESOURCES AND PSYCHOSOCIAL SUPPORT SERVICES. [code = SKILLED NURSE TO ASSESS PATIENTS PSYCHOSOCIAL STATUS TO IDENTIFY POTENTIAL ISSUES THAT MAY COMPLICATE THE PROVISION OF THE PLAN OF CARE INCLUDING THE PATIENTS ABILITY TO ACCESS COMMUNITY RESOURCES AND PSYCHOSOCIAL SUPPORT SERVICES.] Future Scheduled Test SKILLED NU RSE WILL MAINTAIN SITUATIONAL AWARENESS FOR SAFETY AND WILL NOTIFY CLINICAL CONDUCTOR SLEEPING CAR AND PHYSICIAN/PROVIDER WITH ANY CHANGE IN CONDITION. [code = SKILLED NURSE WILL MAINTAIN SITUATIONAL AWARENESS FOR SAFETY AND WILL NOTIFY CLINICAL CONDUCTOR SLEEPING CAR AND PHYSICIAN/PROVIDER WITH ANY CHANGE IN CONDITION.] Future Scheduled Test SKILLED NU RSE TO PROVIDE INSTRUCTION TO PATIENT/CAREGIVER RELATED TO DISCHARGE PLANNING. [code = SKILLED NURSE TO PROVIDE INSTRUCTION TO PATIENT/CAREGIVER RELATED TO DISCHARGE PLANNING.] Goal Patient Goal - P ATIENT VERBALIZED GOAL FOR IMPROVED STRENGTH AN ENDURANCE Goal Provider Goal - A PLAN OF CARE WILL BE ESTABLISHED THAT MEETS PATIENT'S NURSING HOME NEEDS AND INCLUDES PATIENT GOAL FOR HOME HEALTH. Goal Provider Goal - ALTERED MENTAL/BEHAVIORAL STATUS WILL BE IDENTIFIED PROMPTLY AND INTERVENTION INITIATED QUICKLY TO MINIMIZE ASSOCIATED RISKS THROUGHOUT CERTIFICATION PERIOD. Goal Provider Goal - PATIENT WILL REMAIN SAFE IN COMMUNITY WITHOUT EVIDENCE OF INJURY/HARM TO SELF OR OTHERS THROUGHOUT CERTIFICATION PERIOD. Goal Provider Goal - PATIENT WILL BE ABLE TO PERFORM DAILY FUNCTIONS AND HAVE OPTIMAL IMPROVEMENT IN MOOD STABILITY THROUGHOUT CERTIFICATION PERIOD. Goal Provider Goal - MEDICATION WILL BE STORED IN LOCKBOX FOR SAFETY. Goal Provider Goal - CHANGE IN GENERAL HEALTH STATUS WILL BE IDENTIFIED AND REPORTED TO PHYSICIAN FOR PROMPT INTERVENTION TO MINIMIZE ASSOCIATED RISKS THROUGHOUT CERTIFICATION PERIOD. Goal Provider Goal - PATIENT WILL BE ABLE TO PERFORM DAILY FUNCTIONS AND HAVE OPTIMAL IMPROVEMENT IN LEVEL OF ANXIETY THROUGHOUT CERTIFICATION PERIOD. Goal Provider Goal - PATIENT WILL REMAIN SAFE WITHOUT DECOMPENSATION IN DEPRESSIVE CONDITION, WHILE MAINTAINING OPTIMAL LEVEL OF MENTAL HEALTH AND WELL BEING THROUGHOUT CERTIFICATION PERIOD. Goal Provider Goal - PATIENT/CAREGIVER WILL VERBALIZE/DEMONSTRATE UNDERSTANDING OF SAFE PROVISION OF ADLS BY THE END OF THE CERTIFICATION PERIOD. Goal Provider Goal - PATIENT/CAREGIVER WILL VERBALIZE/DEMONSTRATE EFFECTIVE HOME SAFETY AND FALL PREVENTION STRATEGIES THROUGHOUT CERTIFICATION PERIOD. Goal Provider Goal - PATIENT/CAREGIVER WILL DEMONSTRATE UNDERSTANDING OF PHARMACOLOGIC AND NONPHARMACOLOGIC PAIN CONTROL MEASURES AND PATIENT WILL HAVE IMPROVEMENT IN PAIN INTERFERING WITH ACTIVITY EVIDENCED BY PAIN CONTROLLED AT LEVEL OF 0 OR LESS BY END OF CERTIFICATION PERIOD. Goal Provider Goal - PATIENT/CAREGIVER WILL VERBALIZE UNDERSTANDING OF PRESSURE ULCER PREVENTION BY END OF THE EPISODE. Goal Provider Goal - PATIENT/CAREGIVER WILL VERBALIZE/DEMONSTRATE MANAGEMENT OF SOB RESPIRATORY DISEASE PROCESS. CHANGES IN RESPIRATORY STATUS WILL BE IDENTIFIED AND REPORTED TO PHYSICIAN FOR PROMPT INTERVENTION THROUGHOUT THE CERTIFICATION PERIOD. Goal Provider Goal - PATIENT/CAREGIVER WILL VERBALIZE/DEMONSTRATE MANAGEMENT OF HISTORY OF BREAST CANCER CANCER/NEOPLASM DISEASE AND THE SIDE EFFECTS OF TREATMENTS DURING THIS EPISODE. Goal Provider Goal - A PHYSICAL THERAPY EVALUATION TO BE COMPLETED WITH RECOMMENDATIONS AND/OR WRITTEN PLAN OF TREATMENT ESTABLISHED FOR PHYSICIANS SIGNATURE. Goal Provider Goal - OCCUPATIONAL THERAPY EVALUATION TO BE COMPLETED WITH RECOMMENDATIONS AND WRITTEN PLAN OF TREATMENT ESTABLISHED FOR THE PHYSICIANS SIGNATURE. Goal Provider Goal - PATIENT / CAREGIVER WILL VERBALIZE UNDERSTANDING OF EFFECTS OF URINARY INCONTINENCE BY THE END OF THE CERTIFICATION PERIOD. Goal Provider Goal - PATIENT WILL HAVE SUPPORT MEASURES ESTABLISHED TO PREVENT HOSPITALIZATION AND ED USE AND PATIENT/CAREGIVER WILL VERBALIZE/DEMONSTRATE METHODS TO REDUCE AVOIDABLE HOSPITALIZATION AND ED USE BY END OF EPISODE. Goal Provider Goal - PATIENT/CAREGIVER WILL VERBALIZE UNDERSTANDING OF EDUCATION PROVIDED ON MEDICATIONS BY THE END OF THE CERTIFICATION PERIOD. Goal Provider Goal - PATIENT/CAREGIVER WILL VERBALIZE UNDERSTANDING OF FIBROMYALGIA MUSCULOSKELETAL DISEASE INCLUDING SIGNS AND SYMPTOMS, MANAGEMENT, AND PRESCRIBED TREATMENT REGIMEN BY END OF EPISODE. Goal Provider Goal - PATIENT/CAREGIVER WILL VERBALIZE/DEMONSTRATE ABILITY TO MANAGE MUSCLE WEAKNESS MUSCULOSKELETAL DISEASE WHILE MAINTAINING SAFETY THROUGHOUT THE EPISODE. Goal Provider Goal - PSYCHOSOCIAL NEEDS WILL BE IDENTIFIED AND PLAN IMPLEMENTED TO MINIMIZE RISK THROUGHOUT CERTIFICATION PERIOD. Goal Provider Goal - PATIENT WILL REMAIN SAFE IN THE COMMUNITY AND WILL BE FREE OF DANGER TO SELF AND OTHERS THROUGHOUT THE CERTIFICATION PERIOD. Goal Provider Goal - PATIENT/CAREGIVER WILL VERBALIZE UNDERSTANDING OF DISCHARGE PLANNING INSTRUCTIONS BY DATE OF DISCHARGE. Progress Notes Progress Notes <paragraph>[Visit Date: 2024 by PILY ACEVEDO RN]:</paragraph><paragraph>PETS TWO DOGS THAT ARE CONTAINED ALLERGIES MORPHINE MOTRIN CODEINE, STEROIDS LEVOTHYROXINE DULOXETINE FLUCONAZOLE IRIS EEmely ROSARIOS A 59 YEAR OLD FEMALE LIVING IN A SINGLE FAMILY HOME WITH HER TWO (2) ADULT DAUGHTER. SHE PRESENTS TODAY FOR NURSING HOME SERVICES WITH SHEREEN. ADMITTED TO [facility] [place] ON [25 FOR SUICIDAL IDEATION DISCHARGED ON 06/07/2024. 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, FAMILY HISTORY OF LOLYPS OF COLON, FRACTURE OF NECK OF LEFT HUMERUS, HUMERAL HEAD FRACTURE, CHRONIC GASTRITIS, INSOMNIA, HYPOTHYROIDISM, SEROPOSITIVE RHEUMATOUD ARTHRITIS, LEUKOPENIA, GINGIVITIS, HISTORY OF BREAST CANCER, ESTROGEN RECEPTOR POSITIVE STATUS (ER+1), DUCTAL CARCINOMA IN SITU, AUTOIMMUNE DISORDER, PTSD, COVID-19, BILATERAL KNEE PAIN, FIBROMYALGIA, SCHATZIS RING, RHEUMATOID ARTHRITIS, SMALL BOWEL MKTILIYY DISORDER, OSTEOPOROSIS, RAYNAUDS DISEASE WITHOUT GANGRENE, BIPOLAR DEPRESSION, ANXIETY, PRIMARY INSOMNIA, CONSTIPATION, ACQUIRED HYPOTHYROIDISM, SYSTEMIC LUPUS ERYTH MATOSIS, TMJ. PATIENT AOX3 FORGETFUL, AND SLIGHTLY CONFUSED. AMBULATES WITH WALKER, CG/DAUGHTER MUST MONITOR ALL FUNCTIONAL ACTIVITIES. BILATERAL LEG WEAKNESS. HIS OF FALLS LAST FALL IN BEDROOM DAUGHTER WAS PRESENT, NO INJURIES. APPETITE FAIR. SKIN DRY AND INTACT. DENIES SI AND AH, CONTINUES TO HAVE VH. CG/DAUGHTER AWARE. MEDICATIONS RECONCILED AND PREPOURED FOR WEEK. PCP INFORMED OF START OF CARE PATIENT TO RECEIVE NURSING HOME VISITS 3WK8 FOR MEDICATION EDUCATION AND MANAGEMENT. PATIENTS MEDICATIONS PREPOURED AND SECURED IN LOCKBOX. BIMS 10 MODERATELY IMPAIRED. PATIENT REMAINS HOMEBOUND DUE TO TAXING EFFORT TO LEAVE HOME SAFELY WITHOUT ASSISTANCE AND WEAKNESS. NEXT PCP FOLLOW-UP APPOINTMENT 06/14/2024, MENTAL HEALTH THERAPIST 07/05/2024, NEUROLOGIST 08/07/2024. PT AND OT EVALUATIONS</paragraph> Encounters Start Date/Time End Date/Time Encounter Type Admission Type Attending Clinicians Care Facility Care Department Encounter ID Discharge Date Discharge Status Discharge Condition Discharge Reason Percent Goals Met 2024-06-08 00:00:00 2024-08-06 00:00:00 Outpatient CHRISTIE VILLELA [facility] [id number] 12.20
[2024-06-13 17:48] VITALS: BP 119/62
[2024-06-13 17:49] LABS: Basophils Percent Auto 0.4 % (0-2); Eosinophils Absolute Auto 0.1 X10*3/uL (0.0-0.4); Eosinophils Percent Auto 1.2 % (0-4); Hematocrit 29.4 % (37.0-47.0); Hemoglobin 9.5 g/dl (12.0-16.0); Imm Gran Abs Auto 0.01 X10*3/uL (0.00-0.03); Imm Gran Pct Auto 0.2 % (0.0-0.4); Lymphocytes Absolute Auto 0.9 X10*3/uL (1.2-4.9); Lymphocytes Percent Auto 17.4 % (20-40); MANUAL DIFF FLAG NO; Mean Corpuscular HGB Conc 32.3 g/dl (31.0-35.0); Mean Corpuscular Hemoglobin 27.3 pg (27.0-33.0); Mean Corpuscular Volume 84.5 fL (80.0-98.0); Monocytes Absolute Auto 0.6 X10*3/uL (0.1-1.2); Monocytes Percent Auto 11.6 % (2-11); Neutrophils Absolute Auto 3.6 x10*3/uL (2.0-8.3); Neutrophils Percent Auto 69.2 % (45-73); Platelet Count 226 X10*3/uL (160-400); Red Blood Count 3.48 X10*6/uL (4.20-5.50); Red Cell Distribution Width 14.7 % (11.0-16.0); White Blood Count 5.2 X10*3/uL (4.8-10.8)
--- NOTE | 2024-06-13 17:53 | PC.NURSE ---
pt is a bed search from the community sitter in place patient is resting at this time, respirations even and unlabored
[2024-06-13 18:00] LABS: Amphetamine Screen Urine Not Detected (Not Detect); Barbiturates, Urine Not Detected (Not Detect); Benzodiazepines Screen Urine POSITIVE (Not Detect); Buprenorphine Scr Not Detected (Not Detect); Cannabinoid Screen Urine Not Detected (Not Detect); Cocaine Screen Urine Not Detected (Not Detect); Fentanyl, urine Not Detected (Not Detect); Methadone Screen, Urine Not Detected (Not Detect); Opiate Screen Urine Not Detected (Not Detect); Oxycodone Screen Urine Not Detected (Not Detect); Phencyclidine Screen Urine Not Detected (Not Detect)
[2024-06-13 18:07] LABS: Acetaminophen LAB < 3 mcg/mL (<30); Alanine Aminotransferase 21 U/L (0-31); Albumin Level 3.5 g/dL (3.5-5.0); Alkaline Phosphatase 57 U/L (39-117); Anion Gap 12 (12-20); Aspartate Amino Transferase 21 U/L (5-31); Bilirubin Direct 0.1 mg/dL (0.0-0.5); Bilirubin Total 0.3 mg/dL (0.0-1.0); Blood Urea Nitrogen 17 mg/dL (9-16); Calcium 8.7 mg/dL (8.4-10.2); Carbon Dioxide 28 mmol/L (22-29); Chloride 111 mmol/L (96-108); Creatinine Clr Calc Pharmacy 77.3; Estimated Glomerular Filt Rate > 60; Ethanol < 10 mg/dL; Glucose Random 96 mg/dL (60-115); Salicylate < 5.0 mg/dL (15-30); Sodium 147 mmol/L (135-145); Total Protein 6.4 g/dL (6.5-8.0)
[2024-06-13 23:58] VITALS: BP 129/69; PULSE 81; RESP 15; TEMP 36.4; O2SAT 99
[2024-06-14] MEDS: Gabapentin 300 MG CAPSULE PO ×4 (01:27→20:24)
[2024-06-14 01:28] VITALS: BP 129/69
[2024-06-14] MEDS: Prazosin HCL 1 MG CAPSULE PO ×2 (01:28→20:24)
[2024-06-14] MEDS: OLANZapine 10 MG TABLET PO ×2 (01:29→20:24)
[2024-06-14] MEDS: clonazePAM 1 MG TABLET PO ×4 (01:29→20:24)
[2024-06-14] MEDS: traZODone HCL 50 MG TABLET PO ×2 (01:43→20:24)
--- NOTE | 2024-06-14 07:06 | ECG_ITS ---
Test Reason : check qt Blood Pressure : */* mmHG Vent. Rate : 86 BPM Atrial Rate : 86 BPM P-R Int : 156 ms QRS Dur : 130 ms QT Int : 414 ms P-R-T Axes : 72 -5 84 degrees QTcB Int : 495 ms Normal sinus rhythm Left bundle branch block Abnormal ECG When compared with ECG of 06-Jun-2024 05:56, No significant change was found Referred By: Felisa Berry Electronically Signed By: ALISA ADAMS MD
[2024-06-14 07:39] LABS: Hematocrit 30.3 % (37.0-47.0); Hemoglobin 9.8 g/dl (12.0-16.0); Mean Corpuscular HGB Conc 32.3 g/dl (31.0-35.0); Mean Corpuscular Hemoglobin 27.1 pg (27.0-33.0); Mean Corpuscular Volume 83.9 fL (80.0-98.0); Mean Platelet Volume 9.1 fL (9.4-12.3); Platelet Count 228 X10*3/uL (160-400); Red Blood Count 3.61 X10*6/uL (4.20-5.50); Red Cell Distribution Width 14.8 % (11.0-16.0); White Blood Count 3.9 X10*3/uL (4.8-10.8)
[2024-06-14 08:29] LABS: Appearance Urine Clear; Color Urine Yellow; Glucose Urine UA Negative (Negative); Leukocyte Esterase Urine Negative (Negative); Nitrite Urine Negative (Negative); PH 6.5 (5.0-9.0); Urine Blood Negative (Negative); Urine Ketones Negative (Negative); Urine Protein Negative (Neg-Trace)
[2024-06-14] MEDS: Lidocaine 4 % Patch ADH..PATCH 2 PATCH TRANSDERMA (08:31)
[2024-06-14] MEDS: Cholecalciferol (Vitamin D3) 25 MCG TABLET 50 MCG PO (08:32)
[2024-06-14] MEDS: Famotidine 20 MG TABLET 40 MG PO ×2 (08:32→20:25)
[2024-06-14] MEDS: buPROPion HCl XL 150 MG TAB.ER.24H PO (08:32)
[2024-06-14] MEDS: lamoTRIgine 100 MG TABLET PO ×2 (08:32→20:24)
[2024-06-14 11:15] VITALS: BP 134/73; PULSE 81; RESP 16; TEMP 36.8; O2SAT 99
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
[2024-06-14 13:37] VITALS: BMI 20.3
--- NOTE | 2024-06-14 13:41 | PC.NURSE ---
pt refused flu vaccine at this time
[2024-06-14 14:42] LABS: Alanine Aminotransferase 22 U/L (0-31); Albumin Level 3.7 g/dL (3.5-5.0); Alkaline Phosphatase 67 U/L (39-117); Anion Gap 13 (12-20); Aspartate Amino Transferase 29 U/L (5-31); Bilirubin Total 0.5 mg/dL (0.0-1.0); Blood Urea Nitrogen 14 mg/dL (9-16); Calcium 8.8 mg/dL (8.4-10.2); Carbon Dioxide 23 mmol/L (22-29); Chloride 109 mmol/L (96-108); Creatinine Clr Calc Pharmacy 77.9; Estimated Glomerular Filt Rate > 60; Glucose Random 86 mg/dL (60-115); Potassium 3.5 mmol/L (3.3-5.1); Sodium 141 mmol/L (135-145); Total Protein 7.1 g/dL (6.5-8.0)
[2024-06-14 20:00] VITALS: RESP 14; TEMP 36.4; O2SAT 100
[2024-06-14 20:24] VITALS: BP 123/69
[2024-06-14] MEDS: Ibuprofen 400 MG TABLET PO (20:29)
[2024-06-15 07:54] VITALS: BP 108/62; PULSE 91; RESP 16; TEMP 36.5; O2SAT 100
[2024-06-15] MEDS: Lidocaine 4 % Patch ADH..PATCH 2 PATCH TRANSDERMA (08:44)
[2024-06-15] MEDS: Famotidine 20 MG TABLET 40 MG PO ×2 (08:44→21:17)
[2024-06-15] MEDS: SUMAtriptan succinate 50 MG TABLET PO (08:44)
[2024-06-15] MEDS: lamoTRIgine 100 MG TABLET PO ×2 (08:45→21:18)
[2024-06-15] MEDS: Cholecalciferol (Vitamin D3) 25 MCG TABLET 50 MCG PO (08:45)
[2024-06-15] MEDS: buPROPion HCl XL 150 MG TAB.ER.24H PO (08:45)
[2024-06-15] MEDS: clonazePAM 1 MG TABLET PO ×3 (08:45→21:17)
[2024-06-15] MEDS: Gabapentin 300 MG CAPSULE PO ×3 (08:45→21:17)
--- NOTE | 2024-06-15 09:17 | HO.PSYCHPN ---
Subjective Subjective Date of Service: 06/15/24 Reason For Visit: Crisis Subjective Notes: Conditional Voluntary Interim History: Patient was seen and discussed in rounds today. Records and plans were reviewed. She is settling in slowly. She uses a walker and is on 5 minute checks. Has been reported to have racing thoughts and auditory hallucinations. She had a suicide attempt 3 weeks ago with an overdose. Here she has been cooperative and compliant with treatment and meds. No complaints or side effects. Eating and sleeping adequately. No dangerous behaviors. No SI reported. Review of Systems Review of Systems Yes all other systems are reviewed and are negative Mental Status Exam Mental Status Exam Narrative: In today's visit she is alert, pleasant, cooperative and interactive. Soft-spoken speech. Broken Syriac. Able to understand. No acute signs of psychosis. Moderate dysphoria to depression present. No SI. Cognitively is grossly intact. Judgment is hard to assess Diagnostics Vital Signs (24Hr): Vital Signs - 24 hr 06/14/24 11:15 06/14/24 20:00 06/14/24 20:24 Temperature 98.2 F 97.5 F Pulse Rate 81 Respiratory Rate 16 14 Blood Pressure 134/73 123/69 Pulse Oximetry 99 100 Oxygen Delivery Method Room Air Room Air 06/15/24 07:54 Temperature 97.7 F Pulse Rate 91 Respiratory Rate 16 Blood Pressure 108/62 Pulse Oximetry 100 Oxygen Delivery Method Room Air BMI result Body Mass Index 20.3 Labs 06/14/24 07:33 06/14/24 14:03 Labs: Laboratory Results - last 48 hr 06/13/24 06/13/24 06/14/24 17:38 17:44 07:33 WBC 5.2 3.9 L RBC 3.48 L 3.61 L Hgb 9.5 L 9.8 L Hct 29.4 L 30.3 L MCV 84.5 83.9 MCH 27.3 27.1 MCHC 32.3 32.3 RDW 14.7 14.8 Plt Count 226 D 228 MPV 9.0 L 9.1 L Immature Gran % (Auto) 0.2 Neut % (Auto) 69.2 Lymph % (Auto) 17.4 L Monroe % (Auto) 11.6 H Eos % (Auto) 1.2 Baso % (Auto) 0.4 Lymph # (Auto) 0.9 L Monroe # (Auto) 0.6 Eos # (Auto) 0.1 Baso # (Auto) 0.0 Abs Immat Gran (auto) 0.01 Absolute Neuts (auto) 3.6 Absolute Nucleated RBC 0.000 0.000 Nucleated RBC % (auto) 0.0 0.0 Sodium 147 H Potassium 4.0 Chloride 111 H Carbon Dioxide 28 Anion Gap 12 BUN 17 H Creatinine 0.58 Estim Creat Clear Calc 77.3 Estimated GFR > 60 Random Glucose 96 Calcium 8.7 Total Bilirubin 0.3 Direct Bilirubin 0.1 AST 21 ALT 21 Alkaline Phosphatase 57 Total Protein 6.4 L Albumin 3.5 Urine Color Urine Appearance Urine pH Ur Specific [place] Urine Protein Urine Glucose (UA) Urine Ketones Urine Blood Urine Nitrite Ur Leukocyte Esterase Salicylates < 5.0 L Urine Opiates Screen Not Detected Ur Buprenorphine Scrn Not Detected Ur Oxycodone Screen Not Detected Urine Methadone Screen Not Detected Urine Fentanyl Screen Not Detected Acetaminophen < 3 Ur Barbiturates Screen Not Detected Ur Phencyclidine Scrn Not Detected Ur Amphetamines Screen Not Detected U Benzodiazepines Scrn POSITIVE H Urine Cocaine Screen Not Detected U Marijuana (THC) Screen Not Detected Ethyl Alcohol < 10 06/14/24 06/14/24 08:15 14:03 WBC RBC Hgb Hct MCV MCH MCHC RDW Plt Count MPV Immature Gran % (Auto) Neut % (Auto) Lymph % (Auto) Monroe % (Auto) Eos % (Auto) Baso % (Auto) Lymph # (Auto) Monroe # (Auto) Eos # (Auto) Baso # (Auto) Abs Immat Gran (auto) Absolute Neuts (auto) Absolute Nucleated RBC Nucleated RBC % (auto) Sodium 141 Potassium 3.5 Chloride 109 H Carbon Dioxide 23 Anion Gap 13 BUN 14 Creatinine 0.60 Estim Creat Clear Calc 77.9 Estimated GFR > 60 Random Glucose 86 Calcium 8.8 Total Bilirubin 0.5 Direct Bilirubin AST 29 ALT 22 Alkaline Phosphatase 67 Total Protein 7.1 Albumin 3.7 Urine Color Yellow Urine Appearance Clear Urine pH 6.5 Ur Specific [place] 1.020 Urine Protein Negative Urine Glucose (UA) Negative Urine Ketones Negative Urine Blood Negative Urine Nitrite Negative Ur Leukocyte Esterase Negative Salicylates Urine Opiates Screen Ur Buprenorphine Scrn Ur Oxycodone Screen Urine Methadone Screen Urine Fentanyl Screen Acetaminophen Ur Barbiturates Screen Ur Phencyclidine Scrn Ur Amphetamines Screen U Benzodiazepines Scrn Urine Cocaine Screen U Marijuana (THC) Screen Ethyl Alcohol Medications Medications Current Medications Al Hydroxide/Mg Hydroxide (Magnesium Hydrox/Alum Hydrox 30 Ml Oral.Susp) 30 ml PO Q6H PRN PRN Reason: Heartburn/Nausea Albuterol Sulfate (Albuterol Sulfate 90 Mcg 8 Gm Inhaler) 2 puff INHALE Q6H PRN PRN Reason: Wheezing Bisacodyl (Bisacodyl 5 Mg Tablet.Dr) 10 mg PO DAILY PRN PRN Reason: Constipation Bupropion HCl (Bupropion Hcl Xl 150 Mg Tab.Er.24h) 150 mg PO DAILY [facility] Last Admin: 06/15/24 08:45 Dose: 150 mg Clonazepam (Clonazepam 1 Mg Tablet) 1 mg PO TID [facility] Last Admin: 06/15/24 08:45 Dose: 1 mg Famotidine (Famotidine 20 Mg Tablet) 40 mg PO BID [facility] Last Admin: 06/15/24 08:44 Dose: 40 mg Gabapentin (Gabapentin 300 Mg Capsule) 300 mg PO TID [facility] Last Admin: 06/15/24 08:45 Dose: 300 mg Ibuprofen (Ibuprofen 400 Mg Tablet) 400 mg PO Q6H PRN PRN Reason: Pain, Moderate(Pain Scale 4-6) Last Admin: 06/14/24 20:29 Dose: 400 mg Lamotrigine (Lamotrigine 100 Mg Tablet) 100 mg PO BID [facility] Last Admin: 06/15/24 08:45 Dose: 100 mg Lidocaine (Lidocaine 4 % Patch Adh..Patch) 2 patch TRANSDERMA DAILY [facility]; Protocol Last Admin: 06/15/24 08:44 Dose: 2 patch Magnesium Hydroxide (Milk Of Magnesia 30 Ml Oral.Susp) 30 ml PO DAILY PRN PRN Reason: Constipation Nicotine (Nicotine 21 Mg Patch.Td24) 21 mg TRANSDERMA DAILY [facility] Last Admin: 06/15/24 08:50 Dose: Not Given Nicotine Polacrilex (Nicotine Polacrilex 2 Mg Gum) 4 mg BUCCAL Q2H PRN PRN Reason: Nicotine Cravings Non-Formulary Medication (Cyclosporine) 1 drop EYE-BOTH BID [facility] Non-Formulary Medication (Lifitegrast) 1 drop EYE-BOTH BID [facility] Non-Formulary Medication (Perfluorohexyloctane (Pf) [Miebo (Pf)]) 1 drop EYE-BOTH TID [facility] Last Admin: 06/14/24 01:38 Dose: Not Given Non-Formulary Medication (Synthroid) 50 mcg PO DAILY [facility]INO Olanzapine (Olanzapine 10 Mg Tablet) 10 mg PO BEDTIME [facility]INO Last Admin: 06/14/24 20:24 Dose: 10 mg Omeprazole (Omeprazole 40 Mg Capsule.Dr) 40 mg PO DAILY PRN PRN Reason: Acid Reflux Ondansetron HCl (Ondansetron Odt 8 Mg Tab.Rapdis) 8 mg TRANSLINGU BEDTIME PRN PRN Reason: Nausea Oxybutynin Chloride (Oxybutynin Chloride Er 5 Mg Tab.Er.24) 10 mg PO DAILY PRN PRN Reason: OVERACTIVE BLADDER Prazosin HCl (Prazosin Hcl 1 Mg Capsule) 1 mg PO BEDTIME [facility]INO; Protocol Last Admin: 06/14/24 20:24 Dose: 1 mg Simethicone (Simethicone 80 Mg Tab.Chew) 160 mg PO QID PRN PRN Reason: Gas Sumatriptan Succinate (Sumatriptan Succinate 50 Mg Tablet) 50 mg PO DAILY PRN PRN Reason: Migraine Headache Last Admin: 06/15/24 08:44 Dose: 50 mg Trazodone HCl (Trazodone Hcl 50 Mg Tablet) 50 mg PO BEDTIME TINO Last Admin: 06/14/24 20:24 Dose: 50 mg Vitamin D (Cholecalciferol (Vitamin D3) 25 Mcg Tablet) 50 mcg PO DAILY [facility] Last Admin: 06/15/24 08:45 Dose: 50 mcg Allergies Allergies Allergy/AdvReac Type Severity Reaction Status Date / Time Sulfa (Sulfonamide Allergy Severe Itching Verified 06/13/24 17:23 Antibiotics) codeine [CODEINE] Allergy Intermediate ITCHING Verified 06/13/24 17:23 hydroxychloroquine Allergy Intermediate VOMITING Verified 06/13/24 17:23 [From PLAQUENIL] morphine [MORPHINE] Allergy Intermediate ITCHING Verified 06/13/24 17:23 Estrogens Allergy Mild Unknown Verified 06/13/24 17:23 levothyroxine sodium Allergy Unknown rash,throat Verified 06/13/24 17:23 closes prednisone Allergy Unknown Unknown Verified 06/13/24 17:23 Corticosteroids AdvReac Severe DIFFICULTY Verified 06/13/24 17:23 (Glucocorticoids) BREATHING [CORTICOSTEROIDS (GLUCOCORTICOIDS)] escitalopram [From Lexapro] AdvReac Severe seizure Verified 06/13/24 17:23 meloxicam AdvReac Severe Gastrointestinal Verified 06/13/24 17:23 Upset tadalafil [From Cialis] AdvReac Intermediate Nausea and Verified 06/13/24 17:23 Vomiting acetaminophen [Percocet] AdvReac Unknown Unknown Verified 06/13/24 17:23 duloxetine AdvReac Unknown Unknown Verified 06/13/24 17:23 fluconazole AdvReac Unknown Itch, pain, Verified 06/13/24 17:23 Assessment & Plan Assessment & Plan (1) Bipolar 1 disorder: Status: Acute Code(s): F31.9 - Bipolar disorder, unspecified (2) PTSD (post-traumatic stress disorder): Status: Acute Code(s): F43.10 - Post-traumatic stress disorder, unspecified Plan Patient is a 59-year-old female with history of bipolar disorder and PTSD who presented to ER due to suicidal ideation with plan to overdose on her prescription medications secondary to increased life stressors. Plan: CV 5 minute safety checks due to walker Continue home medications Obtain collateral Encourage groups Discharge planning 06/15: Continue current regimen and plans Reason for continued inpatient stay Substantial Risk for: harm to self and med/psych decompensation Time Spent With Patient Time: Total time managing care of this patient today ____ minutes.
[2024-06-15 11:44] LABS: Cholesterol 159 mg/dL (<200); HDL Cholesterol 59 mg/dL (>40); LDL Cholesterol Calculated 85 mg/dL (<100); Triglycerides 76 mg/dL (<150)
[2024-06-15 20:00] VITALS: BP 118/58; PULSE 105; RESP 16; TEMP 36.3; O2SAT 99
[2024-06-15 21:17] VITALS: BP 132/67
[2024-06-15] MEDS: Prazosin HCL 1 MG CAPSULE PO (21:17)
[2024-06-15] MEDS: traZODone HCL 50 MG TABLET PO (21:17)
[2024-06-15] MEDS: OLANZapine 10 MG TABLET PO (21:18)
[2024-06-16 08:00] VITALS: BP 100/66; PULSE 99; RESP 16; TEMP 37.3; O2SAT 96
[2024-06-16] MEDS: lamoTRIgine 100 MG TABLET PO ×2 (08:38→22:46)
[2024-06-16] MEDS: Gabapentin 300 MG CAPSULE PO ×3 (08:38→22:46)
[2024-06-16] MEDS: buPROPion HCl XL 150 MG TAB.ER.24H PO (08:38)
[2024-06-16] MEDS: Cholecalciferol (Vitamin D3) 25 MCG TABLET 50 MCG PO (08:38)
[2024-06-16] MEDS: Famotidine 20 MG TABLET 40 MG PO ×2 (08:38→22:45)
[2024-06-16] MEDS: clonazePAM 1 MG TABLET PO ×3 (08:38→22:45)
[2024-06-16] MEDS: Lidocaine 4 % Patch ADH..PATCH 2 PATCH TRANSDERMA (08:40)
--- NOTE | 2024-06-16 09:47 | HO.PSYCHPN ---
Subjective Subjective Date of Service: 06/16/24 Reason For Visit: Crisis Subjective Notes: Conditional Voluntary Interim History: Patient was seen and discussed in rounds today. Records and plans were reviewed. She has been stable and continues to be on the fringe is an isolative. She is still having nightmares but I am a little reluctant to raise her prazosin billet assembler her frailty and marginal blood pressure. She also had an episode of incontinence last night. No SI. No changes were made today Review of Systems Review of Systems Yes all other systems are reviewed and are negative Mental Status Exam Mental Status Exam Narrative: In today's visit she is alert, pleasant, cooperative and interactive. Soft-spoken speech. Broken Kazakh. Able to understand. No acute signs of psychosis. Moderate dysphoria to depression present. Affect is a little better than yesterday. No SI. Cognitively is grossly intact. Judgment is hard to assess Diagnostics Vital Signs (24Hr): Vital Signs - 24 hr 06/15/24 20:00 06/15/24 21:17 06/16/24 08:00 Temperature 97.3 F 99.2 F Pulse Rate 105 H 99 Respiratory Rate 16 16 Blood Pressure 118/58 L 132/67 100/66 Pulse Oximetry 99 96 Oxygen Delivery Method Room Air Room Air BMI result Body Mass Index 20.3 Labs 06/14/24 07:33 06/14/24 14:03 Labs: Laboratory Results - last 48 hr 06/14/24 06/15/24 14:03 10:49 Sodium 141 Potassium 3.5 Chloride 109 H Carbon Dioxide 23 Anion Gap 13 BUN 14 Creatinine 0.60 Estim Creat Clear Calc 77.9 Estimated GFR > 60 Random Glucose 86 Calcium 8.8 Total Bilirubin 0.5 AST 29 ALT 22 Alkaline Phosphatase 67 Total Protein 7.1 Albumin 3.7 Triglycerides 76 Cholesterol 159 LDL Cholesterol, Calc 85 HDL Cholesterol 59 Medications Medications Current Medications Al Hydroxide/Mg Hydroxide (Magnesium Hydrox/Alum Hydrox 30 Ml Oral.Susp) 30 ml PO Q6H PRN PRN Reason: Heartburn/Nausea Albuterol Sulfate (Albuterol Sulfate 90 Mcg 8 Gm Inhaler) 2 puff INHALE Q6H PRN PRN Reason: Wheezing Bisacodyl (Bisacodyl 5 Mg Tablet.Dr) 10 mg PO DAILY PRN PRN Reason: Constipation Bupropion HCl (Bupropion Hcl Xl 150 Mg Tab.Er.24h) 150 mg PO DAILY [facility] Last Admin: 06/16/24 08:38 Dose: 150 mg Clonazepam (Clonazepam 1 Mg Tablet) 1 mg PO TID [facility] Last Admin: 06/16/24 08:38 Dose: 1 mg Famotidine (Famotidine 20 Mg Tablet) 40 mg PO BID [facility] Last Admin: 06/16/24 08:38 Dose: 40 mg Gabapentin (Gabapentin 300 Mg Capsule) 300 mg PO TID [facility] Last Admin: 06/16/24 08:38 Dose: 300 mg Ibuprofen (Ibuprofen 400 Mg Tablet) 400 mg PO Q6H PRN PRN Reason: Pain, Moderate(Pain Scale 4-6) Last Admin: 06/14/24 20:29 Dose: 400 mg Lamotrigine (Lamotrigine 100 Mg Tablet) 100 mg PO BID [facility] Last Admin: 06/16/24 08:38 Dose: 100 mg Lidocaine (Lidocaine 4 % Patch Adh..Patch) 2 patch TRANSDERMA DAILY [facility]; Protocol Last Admin: 06/16/24 08:40 Dose: 2 patch Magnesium Hydroxide (Milk Of Magnesia 30 Ml Oral.Susp) 30 ml PO DAILY PRN PRN Reason: Constipation Nicotine (Nicotine 21 Mg Patch.Td24) 21 mg TRANSDERMA DAILY [facility] Last Admin: 06/16/24 08:43 Dose: Not Given Nicotine Polacrilex (Nicotine Polacrilex 2 Mg Gum) 4 mg BUCCAL Q2H PRN PRN Reason: Nicotine Cravings Non-Formulary Medication (Cyclosporine) 1 drop EYE-BOTH BID [facility] Non-Formulary Medication (Lifitegrast) 1 drop EYE-BOTH BID [facility] Non-Formulary Medication (Perfluorohexyloctane (Pf) [Miebo (Pf)]) 1 drop EYE-BOTH TID [facility] Last Admin: 06/14/24 01:38 Dose: Not Given Non-Formulary Medication (Synthroid) 50 mcg PO DAILY [facility] Olanzapine (Olanzapine 10 Mg Tablet) 10 mg PO BEDTIME [facility] Last Admin: 06/15/24 21:18 Dose: 10 mg Omeprazole (Omeprazole 40 Mg Capsule.Dr) 40 mg PO DAILY PRN PRN Reason: Acid Reflux Ondansetron HCl (Ondansetron Odt 8 Mg Tab.Rapdis) 8 mg TRANSLINGU BEDTIME PRN PRN Reason: Nausea Oxybutynin Chloride (Oxybutynin Chloride Er 5 Mg Tab.Er.24) 10 mg PO DAILY PRN PRN Reason: OVERACTIVE BLADDER Prazosin HCl (Prazosin Hcl 1 Mg Capsule) 1 mg PO BEDTIME [facility]; Protocol Last Admin: 06/15/24 21:17 Dose: 1 mg Simethicone (Simethicone 80 Mg Tab.Chew) 160 mg PO QID PRN PRN Reason: Gas Sumatriptan Succinate (Sumatriptan Succinate 50 Mg Tablet) 50 mg PO DAILY PRN PRN Reason: Migraine Headache Last Admin: 06/15/24 08:44 Dose: 50 mg Trazodone HCl (Trazodone Hcl 50 Mg Tablet) 50 mg PO BEDTIME [facility] Last Admin: 06/15/24 21:17 Dose: 50 mg Vitamin D (Cholecalciferol (Vitamin D3) 25 Mcg Tablet) 50 mcg PO DAILY [facility] Last Admin: 06/16/24 08:38 Dose: 50 mcg Allergies Allergies Allergy/AdvReac Type Severity Reaction Status Date / Time Sulfa (Sulfonamide Allergy Severe Itching Verified 06/13/24 17:23 Antibiotics) codeine [CODEINE] Allergy Intermediate ITCHING Verified 06/13/24 17:23 hydroxychloroquine Allergy Intermediate VOMITING Verified 06/13/24 17:23 [From PLAQUENIL] morphine [MORPHINE] Allergy Intermediate ITCHING Verified 06/13/24 17:23 Estrogens Allergy Mild Unknown Verified 06/13/24 17:23 levothyroxine sodium Allergy Unknown rash,throat Verified 06/13/24 17:23 closes prednisone Allergy Unknown Unknown Verified 06/13/24 17:23 Corticosteroids AdvReac Severe DIFFICULTY Verified 06/13/24 17:23 (Glucocorticoids) BREATHING [CORTICOSTEROIDS (GLUCOCORTICOIDS)] escitalopram [From Lexapro] AdvReac Severe seizure Verified 06/13/24 17:23 meloxicam AdvReac Severe Gastrointestinal Verified 06/13/24 17:23 Upset tadalafil [From Cialis] AdvReac Intermediate Nausea and Verified 06/13/24 17:23 Vomiting acetaminophen [Percocet] AdvReac Unknown Unknown Verified 06/13/24 17:23 duloxetine AdvReac Unknown Unknown Verified 06/13/24 17:23 fluconazole AdvReac Unknown Itch, pain, Verified 06/13/24 17:23 Assessment & Plan Assessment & Plan (1) Bipolar 1 disorder: Status: Acute Code(s): F31.9 - Bipolar disorder, unspecified (2) PTSD (post-traumatic stress disorder): Status: Acute Code(s): F43.10 - Post-traumatic stress disorder, unspecified Plan Patient is a 59-year-old female with history of bipolar disorder and PTSD who presented to ER due to suicidal ideation with plan to overdose on her prescription medications secondary to increased life stressors. Plan: CV 5 minute safety checks due to walker Continue home medications Obtain collateral Encourage groups Discharge planning 06/15: Continue current regimen and plans 06/16: Continue current regimen and plans. Reason for continued inpatient stay Substantial Risk for: harm to self and med/psych decompensation Time Spent With Patient Time: Total time managing care of this patient today ____ minutes.
[2024-06-16 17:55] VITALS: TEMP 36.7
[2024-06-16] MEDS: OLANZapine 5 MG TABLET PO (18:27)
[2024-06-16 19:11] VITALS: BP 117/64; PULSE 99; RESP 16; TEMP 36.7; O2SAT 97
[2024-06-16 20:12] VITALS: BP 127/64; PULSE 100; TEMP 37; O2SAT 96
[2024-06-16 22:46] VITALS: BP 124/56
[2024-06-16] MEDS: traZODone HCL 50 MG TABLET PO (22:46)
[2024-06-16] MEDS: OLANZapine 10 MG TABLET PO (22:46)
[2024-06-16] MEDS: Prazosin HCL 1 MG CAPSULE PO (22:46)
[2024-06-16] MEDS: Ibuprofen 400 MG TABLET PO (23:00)
[2024-06-17 02:55] VITALS: BP 127/64; PULSE 100; TEMP 37; O2SAT 96
--- NOTE | 2024-06-17 03:09 | PC.NURSE ---
Entry for 06/16: At approx. 2000 the call kerr for room 322 alarmed at the nurses station. Upon arrival to the room staff observed pt sitting on the floor in the bathroom, stating she had just fallen. No evidence of altered mental status or injury was noted. Pt denied any complaints at this time. There were no apparent deficits of ROM, as pt was assisted to standing position with minimal assistance and able to ambulate using her walker, which she uses at baseline. Pt stated that she did not use her walker when she went to the bathroom. Vital signs were stable. Nursing transformer shop supervisor, Marcy Ta RN and provider employee relations director, Hannah Alan NP were notified of event.? Later in the evening while taking bedtime medications, pt c/o pain on her right side. She was observed changing positions without issue. PRN ibuprofen was administered. At approx. 0030 pt was observed in the hallway coming to the nurses station. Pt was ambulating with her walker, however appeared to have an unsteady gait. She continued to report pain on her right side, and stated that she did not feel any relief after taking the ibuprofen. A hospitalist consult was ordered for post-fall assessment; hospitalist Miles Campbell notified.?
--- NOTE | 2024-06-17 06:49 | PM.EVENT ---
Event Note Date of Service: 06/17/24 Event Note: S: Consult placed for unwitnessed fall complaining of R hip pain. rates pain 10/10. sounds to be mechanical, no CP, lightheadedness or SOB. no LOC. O: MSK: R hip pain with palpation. able to flex and extend hip. no obvious internal or external rotation. no obvious bruising. A/P: xray R hip, plan dependent on results. no SOB, headache, or additional pain. rest, ice and pain management in the interim. Thank you for allowing me to participate in the pt's care. Will follow for now. Please contact the medical team if any questions or concerns. Time Spent With Patient Time: Total time managing care of this patient today ____ minutes.
[2024-06-17 08:00] VITALS: BP 118/57; PULSE 93; RESP 14; TEMP 36.9; O2SAT 96
[2024-06-17] MEDS: Cholecalciferol (Vitamin D3) 25 MCG TABLET 50 MCG PO (09:01)
[2024-06-17] MEDS: buPROPion HCl XL 150 MG TAB.ER.24H PO (09:01)
[2024-06-17] MEDS: clonazePAM 1 MG TABLET PO ×2 (09:01→21:11)
[2024-06-17] MEDS: Famotidine 20 MG TABLET 40 MG PO ×2 (09:01→21:11)
[2024-06-17] MEDS: lamoTRIgine 100 MG TABLET PO ×2 (09:01→21:12)
[2024-06-17] MEDS: Gabapentin 300 MG CAPSULE PO ×2 (09:01→21:11)
[2024-06-17] MEDS: Lidocaine 4 % Patch ADH..PATCH 2 PATCH TRANSDERMA (09:07)
--- NOTE | 2024-06-17 09:10 | P.PNPSI_ITS ---
Subjective Subjective Date of Service: 06/17/24 Reason For Visit: Crisis Subjective Notes: Conditional Voluntary Interim History: Patient was seen and discussed in rounds today. Records and plans were reviewed. She had a fall yesterday evening and it appears to have been maybe self-induced because she rang the kerr before she went down because the kerr is not reachable from the floor. X-ray of the pelvis did not show any fractures. She also had another episode of incontinence and a urinalysis ordered. No other complaints or difficulties. She is on one-to-one for now Review of Systems Review of Systems Yes all other systems are reviewed and are negative Mental Status Exam Mental Status Exam Narrative: In today's visit she is alert, pleasant, cooperative and interactive. Soft- spoken speech. Broken Tristanian. Able to understand. No acute signs of psychosis. Moderate dysphoria to depression present. Affect is a little better than yesterday. No SI. Cognitively is grossly intact. Judgment is hard to assess Diagnostics Vital Signs (24Hr): Vital Signs - 24 hr 06/16/24 17:55 06/16/24 19:11 06/16/24 20:12 Temperature 98.1 F 98.0 F 98.6 F Pulse Rate 99 100 Respiratory Rate 16 Blood Pressure 117/64 127/64 Pulse Oximetry 97 96 Oxygen Delivery Method Room Air Room Air 06/16/24 22:46 06/17/24 02:55 06/17/24 08:00 Temperature 98.6 F 98.5 F Pulse Rate 100 93 Respiratory Rate 14 Blood Pressure 124/56 L 127/64 118/57 L Pulse Oximetry 96 96 Oxygen Delivery Method Room Air BMI result Body Mass Index 20.3 Labs 06/14/24 07:33 06/14/24 14:03 Labs: Laboratory Results - last 48 hr 06/15/24 10:49 Triglycerides 76 Cholesterol 159 LDL Cholesterol, Calc 85 HDL Cholesterol 59 Medications Medications Current Medications Al Hydroxide/Mg Hydroxide (Magnesium Hydrox/Alum Hydrox 30 Ml Oral.Susp) 30 ml PO Q6H PRN PRN Reason: Heartburn/Nausea Albuterol Sulfate (Albuterol Sulfate 90 Mcg 8 Gm Inhaler) 2 puff INHALE Q6H PRN PRN Reason: Wheezing Bisacodyl (Bisacodyl 5 Mg Tablet.Dr) 10 mg PO DAILY PRN PRN Reason: Constipation Bupropion HCl (Bupropion Hcl Xl 150 Mg Tab.Er.24h) 150 mg PO DAILY [facility] Last Admin: 06/16/24 08:38 Dose: 150 mg Clonazepam (Clonazepam 1 Mg Tablet) 1 mg PO TID [facility] Last Admin: 06/16/24 22:45 Dose: 1 mg Famotidine (Famotidine 20 Mg Tablet) 40 mg PO BID [facility] Last Admin: 06/16/24 22:45 Dose: 40 mg Gabapentin (Gabapentin 300 Mg Capsule) 300 mg PO TID [facility] Last Admin: 06/16/24 22:46 Dose: 300 mg Ibuprofen (Ibuprofen 400 Mg Tablet) 400 mg PO Q6H PRN PRN Reason: Pain, Moderate(Pain Scale 4-6) Last Admin: 06/16/24 23:00 Dose: 400 mg Lamotrigine (Lamotrigine 100 Mg Tablet) 100 mg PO BID [facility] Last Admin: 06/16/24 22:46 Dose: 100 mg Lidocaine (Lidocaine 4 % Patch Adh..Patch) 2 patch TRANSDERMA DAILY [facility]; Protocol Last Admin: 06/16/24 08:40 Dose: 2 patch Magnesium Hydroxide (Milk Of Magnesia 30 Ml Oral.Susp) 30 ml PO DAILY PRN PRN Reason: Constipation Nicotine (Nicotine 21 Mg Patch.Td24) 21 mg TRANSDERMA DAILY [facility] Last Admin: 06/16/24 08:43 Dose: Not Given Nicotine Polacrilex (Nicotine Polacrilex 2 Mg Gum) 4 mg BUCCAL Q2H PRN PRN Reason: Nicotine Cravings Non-Formulary Medication (Cyclosporine) 1 drop EYE-BOTH BID [facility] Non-Formulary Medication (Lifitegrast) 1 drop EYE-BOTH BID [facility] Non-Formulary Medication (Perfluorohexyloctane (Pf) [Miebo (Pf)]) 1 drop EYE- BOTH TID [facility] Last Admin: 06/14/24 01:38 Dose: Not Given Non-Formulary Medication (Synthroid) 50 mcg PO DAILY [facility] Olanzapine (Olanzapine 10 Mg Tablet) 10 mg PO BEDTIME [facility] Last Admin: 06/16/24 22:46 Dose: 10 mg Olanzapine (Olanzapine 5 Mg Tablet) 5 mg PO Q4H PRN PRN Reason: agitation, anxiety sx Last Admin: 06/16/24 18:27 Dose: 5 mg Omeprazole (Omeprazole 40 Mg Capsule.Dr) 40 mg PO DAILY PRN PRN Reason: Acid Reflux Ondansetron HCl (Ondansetron Odt 8 Mg Tab.Rapdis) 8 mg TRANSLINGU BEDTIME PRN PRN Reason: Nausea Oxybutynin Chloride (Oxybutynin Chloride Er 5 Mg Tab.Er.24) 10 mg PO DAILY PRN PRN Reason: OVERACTIVE BLADDER Prazosin HCl (Prazosin Hcl 1 Mg Capsule) 1 mg PO BEDTIME [facility]; Protocol Last Admin: 06/16/24 22:46 Dose: 1 mg Simethicone (Simethicone 80 Mg Tab.Chew) 160 mg PO QID PRN PRN Reason: Gas Sumatriptan Succinate (Sumatriptan Succinate 50 Mg Tablet) 50 mg PO DAILY PRN PRN Reason: Migraine Headache Last Admin: 06/15/24 08:44 Dose: 50 mg Trazodone HCl (Trazodone Hcl 50 Mg Tablet) 50 mg PO BEDTIME [facility] Last Admin: 06/16/24 22:46 Dose: 50 mg Vitamin D (Cholecalciferol (Vitamin D3) 25 Mcg Tablet) 50 mcg PO DAILY [facility] Last Admin: 06/16/24 08:38 Dose: 50 mcg Allergies Allergies Allergy/AdvReac Type Severity Reaction Status Date / Time Sulfa (Sulfonamide Allergy Severe Itching Verified 06/13/24 17:23 Antibiotics) codeine [CODEINE] Allergy Intermediate ITCHING Verified 06/13/24 17:23 hydroxychloroquine Allergy Intermediate VOMITING Verified 06/13/24 17:23 [From PLAQUENIL] morphine [MORPHINE] Allergy Intermediate ITCHING Verified 06/13/24 17:23 Estrogens Allergy Mild Unknown Verified 06/13/24 17:23 levothyroxine sodium Allergy Unknown rash,throat Verified 06/13/24 17:23 closes prednisone Allergy Unknown Unknown Verified 06/13/24 17:23 Corticosteroids AdvReac Severe DIFFICULTY Verified 06/13/24 17:23 (Glucocorticoids) BREATHING [CORTICOSTEROIDS (GLUCOCORTICOIDS)] escitalopram [From Lexapro] AdvReac Severe seizure Verified 06/13/24 17:23 meloxicam AdvReac Severe Gastrointestinal Verified 06/13/24 17:23 Upset tadalafil [From Cialis] AdvReac Intermediate Nausea and Verified 06/13/24 17:23 Vomiting acetaminophen [Percocet] AdvReac Unknown Unknown Verified 06/13/24 17:23 duloxetine AdvReac Unknown Unknown Verified 06/13/24 17:23 fluconazole AdvReac Unknown Itch, pain, Verified 06/13/24 17:23 Assessment & Plan Assessment & Plan (1) Bipolar 1 disorder: Status: Acute Code(s): F31.9 - Bipolar disorder, unspecified (2) PTSD (post-traumatic stress disorder): Status: Acute Code(s): F43.10 - Post-traumatic stress disorder, unspecified Plan Patient is a 59-year-old female with history of bipolar disorder and PTSD who presented to ER due to suicidal ideation with plan to overdose on her prescription medications secondary to increased life stressors. Plan: CV 5 minute safety checks due to walker Continue home medications Obtain collateral Encourage groups Discharge planning 06/15: Continue current regimen and plans 06/16: Continue current regimen and plans. 06/17: Continue current regimen and plans. X-rays to be done. UA to be done Reason for continued inpatient stay Substantial Risk for: med/psych decompensation Time Spent With Patient Time: Total time managing care of this patient today ____ minutes.
[2024-06-17 20:00] VITALS: BP 142/67; PULSE 100; RESP 16; TEMP 38.6; O2SAT 96
[2024-06-17] MEDS: Ibuprofen 400 MG TABLET PO (20:56)
[2024-06-17] MEDS: traZODone HCL 50 MG TABLET PO (21:11)
[2024-06-17] MEDS: OLANZapine 10 MG TABLET PO (21:11)
[2024-06-17] MEDS: Prazosin HCL 1 MG CAPSULE PO (21:12)
[2024-06-17] MEDS: bisacodyL 5 MG TABLET.DR 10 MG PO (21:31)
[2024-06-17] MEDS: CYCLOSPORINE 0.05% 1 EACH EYE-BOTH (21:33)
[2024-06-17] MEDS: LIFITEGRAST 5% 1 EACH EYE-BOTH (21:34)
--- NOTE | 2024-06-17 22:13 | PC.NURSE ---
Pt temp was 101.5, PRN Ibuprofen given at 2053, temp recheck @ 2129 reads 100.2. No c/o vomiting, diarrhoea, headache or body pains. Pt c/o constipation, PRN Ducolax given.
[2024-06-18 07:53] VITALS: BP 93/54; PULSE 79; RESP 16; TEMP 36.4; O2SAT 98
[2024-06-18] MEDS: Cholecalciferol (Vitamin D3) 25 MCG TABLET 50 MCG PO (09:24)
[2024-06-18] MEDS: buPROPion HCl XL 150 MG TAB.ER.24H PO (09:24)
[2024-06-18] MEDS: Famotidine 20 MG TABLET 40 MG PO ×2 (09:25→21:18)
[2024-06-18] MEDS: lamoTRIgine 100 MG TABLET PO ×2 (09:25→21:18)
[2024-06-18] MEDS: clonazePAM 1 MG TABLET PO ×3 (09:25→23:34)
[2024-06-18] MEDS: Gabapentin 300 MG CAPSULE PO ×3 (09:25→21:19)
[2024-06-18] MEDS: Lidocaine 4 % Patch ADH..PATCH 2 PATCH TRANSDERMA (09:26)
[2024-06-18] MEDS: CYCLOSPORINE 0.05% 1 EACH EYE-BOTH ×2 (09:32→21:30)
[2024-06-18] MEDS: LIFITEGRAST 5% 1 EACH EYE-BOTH ×2 (09:32→21:30)
--- NOTE | 2024-06-18 11:09 | HO.PSYCHPN ---
Subjective Subjective Date of Service: 06/18/24 Reason For Visit: Crisis Subjective Notes: Conditional Voluntary Interim History: Attending some groups. Pt continues focused on issues with her daughter and selling their home. Pt states she is aware that she needs to work on this problem with her daughters outpatient. She reports suicidal ideation that comes and goes ;denies HI/VH/AH. Discussed possibly discharging home this week if continues to improve. Medication Compliance: Yes Side effects from medications: No Attending Groups: Intermittent Mental Status Exam Mental Status Exam Narrative: Pt is alert and oriented; behavior is cooperative, calm; dressed in casual attire; mood is described as sad ; eye contact appropriate; Speech is normal rate, volume and not pressured; thought process is organized and goal directed; Thought content is on tx; denies HI/VH/AH. Pt reports suicidal ideation that comes and goes . Diagnostics Vital Signs (24Hr): Vital Signs - 24 hr 06/17/24 20:00 06/18/24 07:53 Temperature 101.5 F H 97.5 F Pulse Rate 100 79 Respiratory Rate 16 16 Blood Pressure 142/67 H 93/54 L Pulse Oximetry 96 98 Oxygen Delivery Method Room Air Room Air BMI result Body Mass Index 20.3 Labs 06/14/24 07:33 06/14/24 14:03 Medications Medications Current Medications Al Hydroxide/Mg Hydroxide (Magnesium Hydrox/Alum Hydrox 30 Ml Oral.Susp) 30 ml PO Q6H PRN PRN Reason: Heartburn/Nausea Albuterol Sulfate (Albuterol Sulfate 90 Mcg 8 Gm Inhaler) 2 puff INHALE Q6H PRN PRN Reason: Wheezing Bisacodyl (Bisacodyl 5 Mg Tablet.) 10 mg PO DAILY PRN PRN Reason: Constipation Last Admin: 06/17/24 21:31 Dose: 10 mg Bupropion HCl (Bupropion Hcl Xl 150 Mg Tab.Er.24h) 150 mg PO DAILY [facility] Last Admin: 06/18/24 09:24 Dose: 150 mg Clonazepam (Clonazepam 1 Mg Tablet) 1 mg PO TID [facility] Last Admin: 06/18/24 09:25 Dose: 1 mg Famotidine (Famotidine 20 Mg Tablet) 40 mg PO BID [facility] Last Admin: 06/18/24 09:25 Dose: 40 mg Gabapentin (Gabapentin 300 Mg Capsule) 300 mg PO TID [facility] Last Admin: 06/18/24 09:25 Dose: 300 mg Ibuprofen (Ibuprofen 400 Mg Tablet) 400 mg PO Q6H PRN PRN Reason: Pain, Moderate(Pain Scale 4-6) Last Admin: 06/17/24 20:56 Dose: 400 mg Lamotrigine (Lamotrigine 100 Mg Tablet) 100 mg PO BID [facility] Last Admin: 06/18/24 09:25 Dose: 100 mg Lidocaine (Lidocaine 4 % Patch Adh..Patch) 2 patch TRANSDERMA DAILY [facility]; Protocol Last Admin: 06/18/24 09:26 Dose: 2 patch Magnesium Hydroxide (Milk Of Magnesia 30 Ml Oral.Susp) 30 ml PO DAILY PRN PRN Reason: Constipation Nicotine (Nicotine 21 Mg Patch.Td24) 21 mg TRANSDERMA DAILY [facility] Last Admin: 06/18/24 09:24 Dose: Not Given Nicotine Polacrilex (Nicotine Polacrilex 2 Mg Gum) 4 mg BUCCAL Q2H PRN PRN Reason: Nicotine Cravings Pt Own Medication ( Cyclosporine 0.05 % Dropperette) 1 drop EYE-BOTH BID [facility] Last Admin: 06/18/24 09:32 Dose: 1 drop Pt Own Medication ( Lifitegrast 5 % Dropperette) 1 drop EYE-BOTH BID [facility] Last Admin: 06/18/24 09:32 Dose: 1 drop Non-Formulary Medication (Perfluorohexyloctane (Pf) [Miebo (Pf)]) 1 drop EYE-BOTH TID [facility] Last Admin: 06/14/24 01:38 Dose: Not Given Non-Formulary Medication (Synthroid) 50 mcg PO DAILY [facility] Olanzapine (Olanzapine 10 Mg Tablet) 10 mg PO BEDTIME [facility] Last Admin: 06/17/24 21:11 Dose: 10 mg Olanzapine (Olanzapine 5 Mg Tablet) 5 mg PO Q4H PRN PRN Reason: agitation, anxiety sx Last Admin: 06/16/24 18:27 Dose: 5 mg Omeprazole (Omeprazole 40 Mg Capsule.Dr) 40 mg PO DAILY PRN PRN Reason: Acid Reflux Ondansetron HCl (Ondansetron Odt 8 Mg Tab.Rapdis) 8 mg TRANSLINGU BEDTIME PRN PRN Reason: Nausea Oxybutynin Chloride (Oxybutynin Chloride Er 5 Mg Tab.Er.24) 10 mg PO DAILY PRN PRN Reason: OVERACTIVE BLADDER Prazosin HCl (Prazosin Hcl 1 Mg Capsule) 1 mg PO BEDTIME [facility]; Protocol Last Admin: 06/17/24 21:12 Dose: 1 mg Simethicone (Simethicone 80 Mg Tab.Chew) 160 mg PO QID PRN PRN Reason: Gas Sumatriptan Succinate (Sumatriptan Succinate 50 Mg Tablet) 50 mg PO DAILY PRN PRN Reason: Migraine Headache Last Admin: 06/15/24 08:44 Dose: 50 mg Trazodone HCl (Trazodone Hcl 50 Mg Tablet) 50 mg PO BEDTIME [facility] Last Admin: 06/17/24 21:11 Dose: 50 mg Vitamin D (Cholecalciferol (Vitamin D3) 25 Mcg Tablet) 50 mcg PO DAILY [facility] Last Admin: 06/18/24 09:24 Dose: 50 mcg Allergies Allergies Allergy/AdvReac Type Severity Reaction Status Date / Time Sulfa (Sulfonamide Allergy Severe Itching Verified 06/13/24 17:23 Antibiotics) codeine [CODEINE] Allergy Intermediate ITCHING Verified 06/13/24 17:23 hydroxychloroquine Allergy Intermediate VOMITING Verified 06/13/24 17:23 [From PLAQUENIL] morphine [MORPHINE] Allergy Intermediate ITCHING Verified 06/13/24 17:23 Estrogens Allergy Mild Unknown Verified 06/13/24 17:23 levothyroxine sodium Allergy Unknown rash,throat Verified 06/13/24 17:23 closes prednisone Allergy Unknown Unknown Verified 06/13/24 17:23 Corticosteroids AdvReac Severe DIFFICULTY Verified 06/13/24 17:23 (Glucocorticoids) BREATHING [CORTICOSTEROIDS (GLUCOCORTICOIDS)] escitalopram [From Lexapro] AdvReac Severe seizure Verified 06/13/24 17:23 meloxicam AdvReac Severe Gastrointestinal Verified 06/13/24 17:23 Upset tadalafil [From Cialis] AdvReac Intermediate Nausea and Verified 06/13/24 17:23 Vomiting acetaminophen [Percocet] AdvReac Unknown Unknown Verified 06/13/24 17:23 duloxetine AdvReac Unknown Unknown Verified 06/13/24 17:23 fluconazole AdvReac Unknown Itch, pain, Verified 06/13/24 17:23 Assessment & Plan Assessment & Plan (1) Bipolar 1 disorder: Status: Acute Code(s): F31.9 - Bipolar disorder, unspecified (2) PTSD (post-traumatic stress disorder): Status: Acute Code(s): F43.10 - Post-traumatic stress disorder, unspecified Plan Patient is a 59-year-old female with history of bipolar disorder and PTSD who presented to ER due to suicidal ideation with plan to overdose on her prescription medications secondary to increased life stressors. Plan: CV 5 minute safety checks due to walker Continue home medications Obtain collateral Encourage groups Discharge planning 06/15: Continue current regimen and plans 06/16: Continue current regimen and plans. 06/17: Continue current regimen and plans. X-rays to be done. UA to be done 06/18: Attending some groups. Pt continues focused on issues with her daughter and selling their home. Pt states she is aware that she needs to work on this problem with her daughters outpatient. She reports suicidal ideation that comes and goes ;denies HI/VH/AH. Discussed possibly discharging home this week if continues to improve. Patient educated on: diagnosis, medication risk/benefits and therapeutic strategies Reason for continued inpatient stay Substantial Risk for: med/psych decompensation Time Spent With Patient Time: Total time managing care of this patient today _20___ minutes.
[2024-06-18 11:15] VITALS: BP 124/69; PULSE 80
[2024-06-18 20:00] VITALS: BP 100/56; PULSE 89; RESP 16; TEMP 37.6; O2SAT 100
[2024-06-18] MEDS: OLANZapine 10 MG TABLET PO (21:18)
[2024-06-18] MEDS: traZODone HCL 50 MG TABLET PO (21:19)
[2024-06-18] MEDS: Prazosin HCL 1 MG CAPSULE PO (21:19)
[2024-06-19 07:44] VITALS: BP 114/56; PULSE 93; RESP 16; TEMP 36.6; O2SAT 98
[2024-06-19] MEDS: Gabapentin 300 MG CAPSULE PO ×3 (08:50→20:44)
[2024-06-19] MEDS: Cholecalciferol (Vitamin D3) 25 MCG TABLET 50 MCG PO (08:51)
[2024-06-19] MEDS: lamoTRIgine 100 MG TABLET PO ×2 (08:52→20:43)
[2024-06-19] MEDS: clonazePAM 1 MG TABLET PO ×3 (08:52→20:43)
[2024-06-19] MEDS: Famotidine 20 MG TABLET 40 MG PO ×2 (08:52→20:43)
[2024-06-19] MEDS: buPROPion HCl XL 150 MG TAB.ER.24H PO (08:52)
[2024-06-19] MEDS: CYCLOSPORINE 0.05% 1 EACH EYE-BOTH ×2 (08:53→20:42)
[2024-06-19] MEDS: LIFITEGRAST 5% 1 EACH EYE-BOTH ×2 (08:55→20:44)
[2024-06-19] MEDS: Lidocaine 4 % Patch ADH..PATCH 2 PATCH TRANSDERMA (08:57)
--- NOTE | 2024-06-19 09:13 | P.PNPSI_ITS ---
Subjective Subjective Date of Service: 06/19/24 Reason For Visit: Crisis Subjective Notes: Conditional Voluntary Interim History: Napping throughout the morning. active later in the day. Pt continues focused on issues with her daughter, states this is causing her anxiety and stress. denies SI/HI/VH/AH. Discussed plan for her daughter to filler picker pt when discharged. Per social work, pt has VNA services and lock box in place. Medication Compliance: Yes Side effects from medications: No Attending Groups: No Mental Status Exam Mental Status Exam Narrative: Pt is alert and oriented; behavior is cooperative, calm; dressed in casual attire; mood is described as anxious ; eye contact appropriate; Speech is normal rate, volume and not pressured; thought process is organized; Thought content is on discharge; denies SI/HI/VH/AH. Diagnostics Vital Signs (24Hr): Vital Signs - 24 hr 06/18/24 11:15 06/18/24 20:00 06/19/24 07:44 Temperature 99.6 F 97.8 F Pulse Rate 80 89 93 Respiratory Rate 16 16 Blood Pressure 124/69 100/56 L 114/56 L Pulse Oximetry 100 98 Oxygen Delivery Method Room Air Room Air BMI result Body Mass Index 20.3 Labs 06/14/24 07:33 06/14/24 14:03 Medications Medications Current Medications Al Hydroxide/Mg Hydroxide (Magnesium Hydrox/Alum Hydrox 30 Ml Oral.Susp) 30 ml PO Q6H PRN PRN Reason: Heartburn/Nausea Albuterol Sulfate (Albuterol Sulfate 90 Mcg 8 Gm Inhaler) 2 puff INHALE Q6H PRN PRN Reason: Wheezing Bisacodyl (Bisacodyl 5 Mg Tablet.Dr) 10 mg PO DAILY PRN PRN Reason: Constipation Last Admin: 06/17/24 21:31 Dose: 10 mg Bupropion HCl (Bupropion Hcl Xl 150 Mg Tab.Er.24h) 150 mg PO DAILY [facility] Last Admin: 06/19/24 08:52 Dose: 150 mg Clonazepam (Clonazepam 1 Mg Tablet) 1 mg PO TID [facility] Last Admin: 06/19/24 08:52 Dose: 1 mg Famotidine (Famotidine 20 Mg Tablet) 40 mg PO BID [facility] Last Admin: 06/19/24 08:52 Dose: 40 mg Gabapentin (Gabapentin 300 Mg Capsule) 300 mg PO TID [facility] Last Admin: 06/19/24 08:50 Dose: 300 mg Ibuprofen (Ibuprofen 400 Mg Tablet) 400 mg PO Q6H PRN PRN Reason: Pain, Moderate(Pain Scale 4-6) Last Admin: 06/17/24 20:56 Dose: 400 mg Lamotrigine (Lamotrigine 100 Mg Tablet) 100 mg PO BID [facility] Last Admin: 06/19/24 08:52 Dose: 100 mg Lidocaine (Lidocaine 4 % Patch Adh..Patch) 2 patch TRANSDERMA DAILY [facility]; Protocol Last Admin: 06/19/24 08:57 Dose: 2 patch Magnesium Hydroxide (Milk Of Magnesia 30 Ml Oral.Susp) 30 ml PO DAILY PRN PRN Reason: Constipation Nicotine (Nicotine 21 Mg Patch.Td24) 21 mg TRANSDERMA DAILY [facility] Last Admin: 06/18/24 09:24 Dose: Not Given Nicotine Polacrilex (Nicotine Polacrilex 2 Mg Gum) 4 mg BUCCAL Q2H PRN PRN Reason: Nicotine Cravings Pt Own Medication ( Cyclosporine 0.05 % Dropperette) 1 drop EYE-BOTH BID [facility] Last Admin: 06/19/24 08:53 Dose: 1 drop Pt Own Medication ( Lifitegrast 5 % Dropperette) 1 drop EYE-BOTH BID [facility] Last Admin: 06/19/24 08:55 Dose: 1 drop Non-Formulary Medication (Perfluorohexyloctane (Pf) [Miebo (Pf)]) 1 drop EYE- BOTH TID [facility] Last Admin: 06/14/24 01:38 Dose: Not Given Non-Formulary Medication (Synthroid) 50 mcg PO DAILY [facility] Olanzapine (Olanzapine 10 Mg Tablet) 10 mg PO BEDTIME [facility] Last Admin: 06/18/24 21:18 Dose: 10 mg Olanzapine (Olanzapine 5 Mg Tablet) 5 mg PO Q4H PRN PRN Reason: agitation, anxiety sx Last Admin: 06/16/24 18:27 Dose: 5 mg Omeprazole (Omeprazole 40 Mg Capsule.Dr) 40 mg PO DAILY PRN PRN Reason: Acid Reflux Ondansetron HCl (Ondansetron Odt 8 Mg Tab.Rapdis) 8 mg TRANSLINGU BEDTIME PRN PRN Reason: Nausea Oxybutynin Chloride (Oxybutynin Chloride Er 5 Mg Tab.Er.24) 10 mg PO DAILY PRN PRN Reason: OVERACTIVE BLADDER Prazosin HCl (Prazosin Hcl 1 Mg Capsule) 1 mg PO BEDTIME [facility]; Protocol Last Admin: 06/18/24 21:19 Dose: 1 mg Simethicone (Simethicone 80 Mg Tab.Chew) 160 mg PO QID PRN PRN Reason: Gas Sumatriptan Succinate (Sumatriptan Succinate 50 Mg Tablet) 50 mg PO DAILY PRN PRN Reason: Migraine Headache Last Admin: 06/15/24 08:44 Dose: 50 mg Trazodone HCl (Trazodone Hcl 50 Mg Tablet) 50 mg PO BEDTIME [facility] Last Admin: 06/18/24 21:19 Dose: 50 mg Vitamin D (Cholecalciferol (Vitamin D3) 25 Mcg Tablet) 50 mcg PO DAILY [facility] Last Admin: 06/19/24 08:51 Dose: 50 mcg Allergies Allergies Allergy/AdvReac Type Severity Reaction Status Date / Time Sulfa (Sulfonamide Allergy Severe Itching Verified 06/13/24 17:23 Antibiotics) codeine [CODEINE] Allergy Intermediate ITCHING Verified 06/13/24 17:23 hydroxychloroquine Allergy Intermediate VOMITING Verified 06/13/24 17:23 [From PLAQUENIL] morphine [MORPHINE] Allergy Intermediate ITCHING Verified 06/13/24 17:23 Estrogens Allergy Mild Unknown Verified 06/13/24 17:23 levothyroxine sodium Allergy Unknown rash,throat Verified 06/13/24 17:23 closes prednisone Allergy Unknown Unknown Verified 06/13/24 17:23 Corticosteroids AdvReac Severe DIFFICULTY Verified 06/13/24 17:23 (Glucocorticoids) BREATHING [CORTICOSTEROIDS (GLUCOCORTICOIDS)] escitalopram [From Lexapro] AdvReac Severe seizure Verified 06/13/24 17:23 meloxicam AdvReac Severe Gastrointestinal Verified 06/13/24 17:23 Upset tadalafil [From Cialis] AdvReac Intermediate Nausea and Verified 06/13/24 17:23 Vomiting acetaminophen [Percocet] AdvReac Unknown Unknown Verified 06/13/24 17:23 duloxetine AdvReac Unknown Unknown Verified 06/13/24 17:23 fluconazole AdvReac Unknown Itch, pain, Verified 06/13/24 17:23 Assessment & Plan Assessment & Plan (1) Bipolar 1 disorder: Status: Acute Code(s): F31.9 - Bipolar disorder, unspecified (2) PTSD (post-traumatic stress disorder): Status: Acute Code(s): F43.10 - Post-traumatic stress disorder, unspecified Plan Patient is a 59-year-old female with history of bipolar disorder and PTSD who presented to ER due to suicidal ideation with plan to overdose on her prescription medications secondary to increased life stressors. Plan: CV 5 minute safety checks due to walker Continue home medications Obtain collateral Encourage groups Discharge planning 06/15: Continue current regimen and plans 06/16: Continue current regimen and plans. 06/17: Continue current regimen and plans. X-rays to be done. UA to be done 06/18: Attending some groups. Pt continues focused on issues with her daughter and selling their home. Pt states she is aware that she needs to work on this problem with her daughters outpatient. She reports suicidal ideation that comes and goes ;denies HI/VH/AH. Discussed possibly discharging home this week if continues to improve. 06/19: Napping throughout the morning. active later in the day. Pt continues focused on issues with her daughter, states this is causing her anxiety and stress. denies SI/HI/VH/AH. Discussed plan for her daughter to filler picker pt when discharged. Per social work, pt has VNA services and lock box in place. Plan to discharge home tomorrow and to follow up with outpatient providers. Patient educated on: diagnosis, medication risk/benefits and therapeutic strategies Reason for continued inpatient stay Substantial Risk for: stable for discharge Time Spent With Patient Time: Total time managing care of this patient today _20___ minutes.
[2024-06-19 20:00] VITALS: BP 128/62; PULSE 95; RESP 16; TEMP 36.3; O2SAT 97
[2024-06-19 20:43] VITALS: BP 128/62
[2024-06-19] MEDS: traZODone HCL 50 MG TABLET PO (20:43)
[2024-06-19] MEDS: OLANZapine 10 MG TABLET PO (20:43)
[2024-06-19] MEDS: Prazosin HCL 1 MG CAPSULE PO (20:43)
[2024-06-20 07:50] VITALS: BP 125/63; PULSE 92; RESP 14; TEMP 37.2; O2SAT 97
[2024-06-20] MEDS: LIFITEGRAST 5% 1 EACH EYE-BOTH (09:45)
[2024-06-20] MEDS: CYCLOSPORINE 0.05% 1 EACH EYE-BOTH (09:45)
[2024-06-20] MEDS: Lidocaine 4 % Patch ADH..PATCH 2 PATCH TRANSDERMA (09:46)
[2024-06-20] MEDS: buPROPion HCl XL 150 MG TAB.ER.24H PO (09:50)
[2024-06-20] MEDS: Famotidine 20 MG TABLET 40 MG PO (09:51)
[2024-06-20] MEDS: clonazePAM 1 MG TABLET PO (09:51)
[2024-06-20] MEDS: Gabapentin 300 MG CAPSULE PO (09:51)
[2024-06-20] MEDS: lamoTRIgine 100 MG TABLET PO (09:51)
[2024-06-20] MEDS: Cholecalciferol (Vitamin D3) 25 MCG TABLET 50 MCG PO (09:52)
--- NOTE | 2024-06-20 10:15 | P.DS_ITS ---
DS: Providers Provider Date of Service: 06/20/24 Date of admission: 06/14/24 10:26 Date of discharge: 06/20/24 Primary care physician: Unknown Physician Admitting clinician: Mary Elizalde Attending physician on admission: Dilshad Gimenez Consults: 06/17/24 00:41 Consult to Hospitalist Routine Comment: Consulting Provider: [facility] Hospitalists Reason For Exam: s/p unwitnessed fall, c/o pain on R side Attending physician on discharge: Dilshad Gimenez Discharging clinician: Mary Elizalde DS: Diagnosis Discharge Diagnosis (1) Bipolar 1 disorder: Status: Acute (2) PTSD (post-traumatic stress disorder): Status: Acute DS: Medications Discharge Medications Home Medications: Previous Rx's ?Medication ?Instructions ?Recorded Synthroid 50 mcg PO DAILY 30 days #30 tabs 06/06/24 albuterol sulfate 90 mcg/actuation 2 puff inhalation Q6H PRN for 06/06/24 aerosol inhaler (Ventolin HFA) wheezing 30 days #1 inhaler bisacodyl 5 mg tablet,delayed 10 mg (2 x 5 mg) PO DAILY PRN 06/06/24 release Constipation 30 days #30 tabs bupropion HCl 150 mg 24 hr tablet, 150 mg PO DAILY 30 days #30 tabs 06/06/24 extended release cholecalciferol (vitamin D3) 25 50 mcg (2 x 25 mcg (1,000 unit)) 06/06/24 mcg (1,000 unit) tablet PO DAILY 30 days #60 tabs clonazepam 1 mg tablet 1 mg PO TID 30 days #90 tabs 06/06/24 cyclosporine 0.05 % eye drops in a 1 drp ophthalmic (eye) BID 30 days 06/06/24 dropperette #60 ea dexlansoprazole 60 mg 60 mg PO DAILY PRN Acid Reflux 30 06/06/24 capsule,biphase delayed release days #30 caps (Dexilant) famotidine 40 mg tablet 40 mg PO BID 30 days #60 tabs 06/06/24 gabapentin 300 mg capsule 300 mg PO TID 30 days #90 caps 06/06/24 ibuprofen 400 mg tablet 400 mg PO Q6H PRN Pain, 06/06/24 Moderate(Pain Scale 4-6) 30 days #60 tabs lamotrigine 100 mg tablet 100 mg PO BID 30 days #60 tabs 02/06/25 lidocaine 4 % topical patch 2 patch transdermal DAILY 30 days 06/06/24 (Lidocaine Pain Relief) #60 ea lifitegrast 5 % eye drops in a 1 drp ophthalmic (eye) BID #60 ea 06/06/24 dropperette olanzapine 10 mg tablet 10 mg PO BEDTIME 30 days #30 tabs 06/06/24 ondansetron HCl 8 mg tablet 8 mg PO BEDTIME PRN Nausea 30 days 06/06/24 #30 tabs oxybutynin chloride 5 mg 10 mg (2 x 5 mg) PO DAILY PRN 06/06/24 tablet,extended release 24 hr OVERACTIVE BLADDER 30 days #30 tabs perfluorohexyloctane (PF) 100 % 1 drp ophthalmic (eye) TID #5 mL 06/06/24 eye drops (Miebo (PF)) prazosin 1 mg capsule 1 mg PO BEDTIME 30 days #30 caps 06/06/24 simethicone 80 mg chewable tablet 160 mg (2 x 80 mg) PO QID PRN Gas 06/06/24 (Gas Relief (simethicone)) 30 days #60 tabs sumatriptan succinate 50 mg tablet 50 mg PO DAILY PRN Migraine 06/06/24 Headache 30 days #30 tabs trazodone 50 mg tablet 50 mg PO BEDTIME 30 days #30 tabs 06/06/24 Mental Status Exam Mental Status Exam Narrative: Pt is alert and oriented; behavior is cooperative, calm; dressed in casual attire; mood is described as anxious ; eye contact appropriate; Speech is normal rate, volume and not pressured; thought process is organized; Thought content is on discharge; denies SI/HI/VH/AH. Data Data Completed and Pending Completed studies during hospitalization [Text1]: 06/13/24 06/13/24 06/14/24 17:38 17:44 07:33 WBC 5.2 3.9 L RBC 3.48 L 3.61 L Hgb 9.5 L 9.8 L Hct 29.4 L 30.3 L MCV 84.5 83.9 MCH 27.3 27.1 MCHC 32.3 32.3 RDW 14.7 14.8 Plt Count 226 D 228 MPV 9.0 L 9.1 L Immature Gran % (Auto) 0.2 Neut % (Auto) 69.2 Lymph % (Auto) 17.4 L [place] % (Auto) 11.6 H Eos % (Auto) 1.2 Baso % (Auto) 0.4 Lymph # (Auto) 0.9 L [place] # (Auto) 0.6 Eos # (Auto) 0.1 Baso # (Auto) 0.0 Abs Immat Gran (auto) 0.01 Absolute Neuts (auto) 3.6 Absolute Nucleated RBC 0.000 0.000 Nucleated RBC % (auto) 0.0 0.0 Sodium 147 H Potassium 4.0 Chloride 111 H Carbon Dioxide 28 Anion Gap 12 BUN 17 H Creatinine 0.58 Estim Creat Clear Calc 77.3 Estimated GFR > 60 Random Glucose 96 Calcium 8.7 Total Bilirubin 0.3 Direct Bilirubin 0.1 AST 21 ALT 21 Alkaline Phosphatase 57 Total Protein 6.4 L Albumin 3.5 Triglycerides Cholesterol LDL Cholesterol, Calc HDL Cholesterol Urine Color Urine Appearance Urine pH Ur Specific [place] Urine Protein Urine Glucose (UA) Urine Ketones Urine Blood Urine Nitrite Ur Leukocyte Esterase Salicylates < 5.0 L Urine Opiates Screen Not Detected Ur Buprenorphine Scrn Not Detected Ur Oxycodone Screen Not Detected Urine Methadone Screen Not Detected Urine Fentanyl Screen Not Detected Acetaminophen < 3 Ur Barbiturates Screen Not Detected Ur Phencyclidine Scrn Not Detected Ur Amphetamines Screen Not Detected U Benzodiazepines Scrn POSITIVE H Urine Cocaine Screen Not Detected U Marijuana (THC) Screen Not Detected Ethyl Alcohol < 10 06/14/24 06/14/24 06/15/24 08:15 14:03 10:49 WBC RBC Hgb Hct MCV MCH MCHC RDW Plt Count MPV Immature Gran % (Auto) Neut % (Auto) Lymph % (Auto) [place] % (Auto) Eos % (Auto) Baso % (Auto) Lymph # (Auto) [place] # (Auto) Eos # (Auto) Baso # (Auto) Abs Immat Gran (auto) Absolute Neuts (auto) Absolute Nucleated RBC Nucleated RBC % (auto) Sodium 141 Potassium 3.5 Chloride 109 H Carbon Dioxide 23 Anion Gap 13 BUN 14 Creatinine 0.60 Estim Creat Clear Calc 77.9 Estimated GFR > 60 Random Glucose 86 Calcium 8.8 Total Bilirubin 0.5 Direct Bilirubin AST 29 ALT 22 Alkaline Phosphatase 67 Total Protein 7.1 Albumin 3.7 Triglycerides 76 Cholesterol 159 LDL Cholesterol, Calc 85 HDL Cholesterol 59 Urine Color Yellow Urine Appearance Clear Urine pH 6.5 Ur Specific [place] 1.020 Urine Protein Negative Urine Glucose (UA) Negative Urine Ketones Negative Urine Blood Negative Urine Nitrite Negative Ur Leukocyte Esterase Negative Salicylates Urine Opiates Screen Ur Buprenorphine Scrn Ur Oxycodone Screen Urine Methadone Screen Urine Fentanyl Screen Acetaminophen Ur Barbiturates Screen Ur Phencyclidine Scrn Ur Amphetamines Screen U Benzodiazepines Scrn Urine Cocaine Screen U Marijuana (THC) Screen Ethyl Alcohol DS: Summary Hospital Course Hospital Course: Patient is a 59-year-old female with history of bipolar disorder and PTSD who presented to ER due to suicidal ideation with plan to overdose on her prescription medications secondary to increased life stressors. Per crisis report, patient reports feeling depressed and anxious due to distress over the prospect of being homeless because her daughter wants to sell the home she lives in. She was recently discharged from [facility] following a suicide attempt on 05/20/2024. History of multiple SA via OD on prescription medications. She reports poor appetite and poor sleep. During admission assessment, patient presents alert and oriented x3. Calm and cooperative. historical interpreter present. Patient reports increased depression due to having problems at home with her daughter . Patient stated, my daughter wants me to sign the ownership paperwork for the house so she can sell it. I don't know where I would live. I'm feeling suicidal from all the stress because I see no light at the end of the tunnel. With what money and my supposed to go live somewhere . Patient reports suicidal ideation with no plan. Patient stated, I have hopes to . Denies HI/VH/AH. Denies any substance use. She reports being medication compliant. Plan: CV 5 minute safety checks due to walker Continue home medications Obtain collateral Encourage groups Discharge planning Continue current regimen and plans. X-rays to be done. UA to be done Attending some groups. Pt continues focused on issues with her daughter and selling their home. Pt states she is aware that she needs to work on this problem with her daughters outpatient. She reports suicidal ideation that comes and goes ;denies HI/VH/AH. Discussed possibly discharging home this week if continues to improve. Napping throughout the morning. active later in the day. Pt continues focused on issues with her daughter, states this is causing her anxiety and stress. denies SI/HI/VH/AH. Discussed plan for her daughter to picker feeder pt when discharged. Per social work, pt has VNA services and lock box in place. Plan to discharge home tomorrow and to follow up with outpatient providers. Patient reports feeling anxious about returning home; she states she plans on bringing up family counseling with her daughters. Denies SI/HI/VH/AH. Patient plans on following up with her outpatient providers. Status at Discharge Cognitive/behavioral status at discharge: Patient has insight and demonstrates good judgment in terms of wanting to pursue treatment. Patient has a safety plan that includes presenting to the closest ER or calling 911 if feeling unsafe. Functional status at discharge: independent ambulation Overall status at discharge: patient is back to baseline Time Spent with Patient Time attestation: Total time managing care of this patient today _20___ minutes. Time spent: Less than 30 minutes Discharge Plan Discharge Anticipated Discharge Date/Time: 06/20/24 12:30 Patient Disposition: Home, Self-Care Discharge Diagnosis: Bipolar d/o, PTSD Referrals: Salvador Hendricks (Therapy) [Other] - 06/27/24 2:00 pm (IN OFFICE APPOINTMENT) Gualberto Velasco (Psychiatry) [Other] - 07/05/24 3:20 pm (TELEHEALTH APPOINTMENT) Chuck Davila MD [Physician] - 06/25/24 11:00 am (06-19-24 We have contacted your primary care physician office and advised them of your upcoming discharge. They will contact either you or us with your follow up appt information. PCP's office returned call. 06-19-24 PCP F.U. scheduled for 06/25/24 @ 11:00AM. EMIR Nova will be seeing patient with Dr. Davila popping in. Please let PCP know if D/C date changes. T.Y.) Discharge Medications: Continued trazodone 50 mg Tablet 50 mg PO BEDTIME 30 Days Qty: 30 0RF prazosin 1 mg Capsule 1 mg PO BEDTIME 30 Days Qty: 30 0RF Protocol: Hold for SBP< HOLD for SBP < : 90 clonazepam 1 mg Tablet 1 mg PO TID 30 Days Qty: 90 0RF sumatriptan succinate 50 mg Tablet 50 mg PO DAILY PRN (Reason: Migraine Headache) 30 Days Qty: 30 0RF olanzapine 10 mg Tablet 10 mg PO BEDTIME 30 Days Qty: 30 0RF ibuprofen 400 mg Tablet 400 mg PO Q6H PRN (Reason: Pain, Moderate(Pain Scale 4-6)) 30 Days Qty: 60 0RF gabapentin 300 mg Capsule 300 mg PO TID 30 Days Qty: 90 0RF albuterol sulfate [Ventolin HFA] 90 mcg/actuation Hfa Aerosol Inhaler 2 puff inhalation Q6H PRN (Reason: for wheezing) 30 Days Qty: 1 0RF lamotrigine 100 mg Tablet 100 mg PO BID 30 Days Qty: 60 0RF cyclosporine 0.05 % Dropperette 1 drp ophthalmic (eye) BID 30 Days Qty: 60 0RF bupropion HCl 150 mg Tablet Extended Release 24 Hr 150 mg PO DAILY 30 Days Qty: 30 0RF lifitegrast 5 % Dropperette 1 drp ophthalmic (eye) BID Qty: 60 0RF bisacodyl 5 mg Tablet,Delayed Release (Dr/Ec) 10 mg PO DAILY PRN (Reason: Constipation) 30 Days Qty: 30 0RF famotidine 40 mg tablet 40 mg PO BID 30 Days Qty: 60 0RF lidocaine [Lidocaine Pain Relief] 4 % Adhesive Patch,Medicated 2 patch transdermal DAILY 30 Days Qty: 60 0RF Protocol: Apply to: Apply to: both knees oxybutynin chloride 5 mg Tablet Extended Release 24hr 10 mg PO DAILY PRN (Reason: OVERACTIVE BLADDER) 30 Days Qty: 30 0RF simethicone [Gas Relief (simethicone)] 80 mg Tablet,Chewable 160 mg PO QID PRN (Reason: Gas) 30 Days Qty: 60 0RF cholecalciferol (vitamin D3) 25 mcg (1,000 unit) Tablet 50 mcg PO DAILY 30 Days Qty: 60 0RF ondansetron HCl 8 mg tablet 8 mg PO BEDTIME PRN (Reason: Nausea) 30 Days Qty: 30 0RF dexlansoprazole [Dexilant] 60 mg capsule,biphase delayed releas 60 mg PO DAILY PRN (Reason: Acid Reflux) 30 Days Qty: 30 0RF Synthroid 50 mcg tablet 50 mcg PO DAILY 30 Days Qty: 30 0RF Miebo (PF) 100 % drops 1 drp ophthalmic (eye) TID Qty: 5 0RF Discontinued hydroxyzine HCl 25 mg Tablet 25 mg PO Q6H PRN (Reason: Anxiety) 30 Days Qty: 60 0RF Discharge Orders: Discharge Order (Routine); Ordered 06/20/24 Ordered By: Mary Elizalde Diet: Regular diet Activity on Discharge: As tolerated Stand Alone Forms: Patient Portal Discharge page, Community Support Print Language: Zambian Care Plan Goals: Maintain mood and safe behaviors Take medications as prescribed Practice coping skills Continue with outpatient providers and reach out to them as needed Health Concerns: Mood stability and behaviors Plan of Treatment: Follow up with your PCP, psychiatric provider and other outpatient providers regarding above concerns Take medications as prescribed Assessment: Patient has insight and demonstrates good judgment in terms of wanting to pursue treatment. Patient has a safety plan that includes presenting to the closest ER or calling 911 if feeling unsafe.
[2024-06-20] MEDS: OLANZapine 5 MG TABLET PO (11:09)
== END 2024-06-20 14:35 | disposition home or self-care (01) | DRG 753 ==
LOC: HO.ED 19:00 → HO.PADLT16 06-14 10:26
PROVIDERS: Emergency Medicine; Admitting Provider Registered Nurse; Emergency Provider Emergency Medicine; Responsible Provider Registered Nurse; Visit Provider Psychiatry & Neurology Psychiatry
DX: F31.9 Bipolar disorder, unspecified (principal); R45.851 Suicidal ideations; F43.10 Post-traumatic stress disorder, unspecified; E03.9 Hypothyroidism, unspecified; Z79.890 Hormone replacement therapy; Z79.899 Other long term (current) drug therapy
CPT/HCPCS: 36415; 73110; 73130; 73502; 80048; 80053; 80061; 80076; 80143; 80179; 80307; 81003; 85025; 85027; 93005; 99285

== ENCOUNTER → 2024-06-14 07:06 | Outpatient (BNV) | payer OTHER, SELFPAY | PROVIDERS: Admitting Provider Registered Nurse; Emergency Provider Emergency Medicine; Responsible Provider Registered Nurse; Visit Provider Internal Medicine Cardiovascular Disease | DX: I44.7 Left bundle-branch block, unspecified (principal) | CPT/HCPCS: 93010 ==

== ENCOUNTER 2024-06-14 10:26 | Outpatient (BNV) | payer OTHER, SELFPAY | END 2024-06-17 07:50 | PROVIDERS: Admitting Provider Registered Nurse; Emergency Provider Emergency Medicine; Responsible Provider Registered Nurse; Visit Provider Radiology Diagnostic Radiology | DX: M25.551 Pain in right hip (principal); M25.431 Effusion, right wrist | CPT/HCPCS: 73130; 73502 ==

== ENCOUNTER → 2024-06-14 10:26 | Outpatient (BNV) | payer OTHER, SELFPAY | PROVIDERS: Admitting Provider Registered Nurse; Emergency Provider Emergency Medicine; Responsible Provider Registered Nurse; Visit Provider Psychiatry & Neurology Psychiatry | DX: F31.4 Bipolar disorder, current episode depressed, severe, without psychotic features (principal); F43.11 Post-traumatic stress disorder, acute | CPT/HCPCS: 90792; 99231; 99232; 99238 ==

== ENCOUNTER 2024-06-25 11:03 | Outpatient (AMB) | payer OTHER, SELFPAY ==
[2024-06-25 11:15] VITALS: BP 132/78; PULSE 81; O2SAT 97; BMI 21.7
--- NOTE | 2024-06-25 11:15 | MHC.PC.OV ---
Vital Signs 06/25/24 11:15 Height 5 ft 1.26 in Weight 116 lb BMI 21.7 BP 132/78 Blood Pressure Location Lt brachial Position Sitting Pulse 81 Pulse Source Pulse Oximeter Pulse Oximetry (%) 97 Oxygen Delivery Method Room Air Intake Visit Reasons: [facility] 06/20 Major Depressive Disorder Clinical Research Nurse Coordinator Required: Yes Clinical Research Nurse Coordinator Language: Lithuanian Allergies Sulfa (Sulfonamide Antibiotics) Allergy (Severe, Verified 06/25/24 11:31) Itching codeine [CODEINE] Allergy (Intermediate, Verified 06/25/24 11:31) ITCHING hydroxychloroquine [From PLAQUENIL] Allergy (Intermediate, Verified 06/25/24 11:31) VOMITING morphine [MORPHINE] Allergy (Intermediate, Verified 06/25/24 11:31) ITCHING Estrogens Allergy (Mild, Verified 06/25/24 11:31) Unknown levothyroxine sodium Allergy (Unknown, Verified 06/25/24 11:31) rash,throat closes prednisone Allergy (Unknown, Verified 06/25/24 11:31) Unknown Corticosteroids (Glucocorticoids) [CORTICOSTEROIDS (GLUCOCORTICOIDS)] Adverse Reaction (Severe, Verified 06/25/24 11:31) DIFFICULTY BREATHING escitalopram [From Lexapro] Adverse Reaction (Severe, Verified 06/25/24 11:31) seizure meloxicam Adverse Reaction (Severe, Verified 06/25/24 11:31) Gastrointestinal Upset tadalafil [From Cialis] Adverse Reaction (Intermediate, Verified 06/25/24 11:31) Nausea and Vomiting acetaminophen [Percocet] Adverse Reaction (Unknown, Verified 06/25/24 11:31) Unknown duloxetine Adverse Reaction (Unknown, Verified 06/25/24 11:31) Unknown fluconazole Adverse Reaction (Unknown, Verified 06/25/24 11:31) Itch, pain, Medication List - Last Reconciled 06/25/24 by KATH Nova albuterol sulfate 90 mcg/actuation (Ventolin HFA) 2 puffs inhalation Q6H PRN 30 days bisacodyl 10 mg (2 x 5 mg) PO DAILY PRN 30 days bupropion HCl XL 150 mg PO DAILY 30 days cholecalciferol (vitamin D3) 50 mcg (2 x 25 mcg (1,000 unit)) PO DAILY 30 days clonazepam 1 mg PO TID 30 days cyclosporine 0.05% 1 drp ophthalmic (eye) BID 30 days dexlansoprazole (Dexilant) 60 mg PO DAILY PRN 30 days famotidine 40 mg PO BID 30 days gabapentin 300 mg PO TID 30 days ibuprofen 400 mg PO Q6H PRN 30 days lamotrigine 100 mg PO BID 30 days lidocaine 4% (Lidocaine Pain Relief) 2 patches See Protocol transdermal DAILY 30 days lifitegrast 5% 1 drp ophthalmic (eye) BID olanzapine 10 mg PO BEDTIME 30 days ondansetron HCl 8 mg PO BEDTIME PRN 30 days oxybutynin chloride ER 10 mg (2 x 5 mg) PO DAILY PRN 30 days perfluorohexyloctane (PF) 100% (Miebo (PF)) 1 drp ophthalmic (eye) TID prazosin 1 mg See Protocol PO BEDTIME 30 days simethicone (Gas Relief (simethicone)) 160 mg (2 x 80 mg) PO QID PRN 30 days sumatriptan succinate 50 mg PO DAILY PRN 30 days [Synthroid 50 mcg PO DAILY 30 days] trazodone 50 mg PO BEDTIME 30 days Tobacco use date assessed: 06/25/24 Dental Screening Dental Screen Date: 06/25/24 Did you have a dental visit in the last 12 months?: Yes Did you have a dental problem in the last 6 months where you did not have access to dental care?: No Was dental information given to patient?: Patient has dentist [facility] 06/20 Major Depressive Disorder [facility] Details The patient is a 59-year-old female with significant past medical history of bipolar disorder and PTSD, acquired hypothyroidism, systemic lupus erythematosus The patient is presenting today for post hospital visit follow up appointment The patient was hospitalized due to suicidal ideation secondary to increase life stressors Patient is accompanied by her daughter who reported that the patient has swelling in hands and feet that she never had before mild edema in bilateral hands and +1 pitting edema in lower extremities The patient denies pain to her extremities. Discussed with the patient's daughter and patient about the different possible causes of the swelling in her hands and feet Explained that this could be due to the patient recent hospitalization and possible that the patient was not moving around in the hospital The patient also have a diagnosis of Raynaud's disease and systemic lupus which might be playing a role in the patient mild swelling in her extremities The patient lungs are clear and no sign of respiratory distress noted. 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 applied for a medical bracelet for the patient due to her fall risk The daughter wanted to know if we had anything do with this process-informed the daughter that weren't involved The patient reports that she could feel that her legs are swollen because they feel slightly numb We will order ESR, CRP, BNP, B12 and folate due to the patient vegetarian status The patient daughter reports that the patient has a lazy bowel and sometimes she does not go for 2 weeks or sometimes she could go 3 times in 1 day The patient denies stomach pain, reports heartburn sometimes The patient also complained of left ear pain. Reports that she has on and off nasal congestion On exam: The right ear is impacted with cerumen-Debrox was ordered. Left ear TM was opaque and had no cone of light We will treat the patient with Augmentin b.i.d. times 10 days for otitis media The patient denies shortness of breath, denies chest pain, denies heart palpitation or dizziness The patient denies SI/HI PFSH Medical History Chronic pruritus Urticaria Vitamin D deficiency Polyarthralgia Small bowel motility disorder Dry mouth and eyes Seborrhea capitis in adult Bilateral sciatica Urinary frequency Abdominal pannus Positive sm/PRODUCT DEVELOPMENT COORDINATOR antibody Family history of polyps in the colon Fracture of neck of left humerus Humeral head fracture Chronic gastritis Insomnia Hypothyroidism Seropositive rheumatoid arthritis Leukopenia Gingivitis History of breast cancer Estrogen receptor positive status [ER+] Ductal carcinoma in situ (DCIS) of left breast Autoimmune disorder PTSD (post-traumatic stress disorder) COVID-19 Bilateral knee pain Fibromyalgia Schatzki's ring Rheumatoid arthritis Small bowel motility disorder Osteoporosis Raynaud's disease without gangrene Bipolar depression Anxiety Primary insomnia Constipation Acquired hypothyroidism Systemic lupus erythematosus Left temporomandibular joint disorder, unspecified Surgical History Hx of abdominoplasty History of esophagogastroduodenoscopy (EGD) Hx of colonoscopy History of bilateral mastectomy History of total abdominal hysterectomy and bilateral salpingo-oophorectomy History of cholecystectomy History of tubal ligation History of section Family History Father Hypertension Prostate cancer Mother Breast cancer Hypertension Asthma Maternal Aunt Breast cancer Maternal Grandmother Colon cancer Maternal Aunt Breast cancer Social History Household Members: Children Household Members Other:: 2 daughters Housing: House Do you presently have visiting nurse or other home services: Yes Alcohol intake: never Patient Tobacco Use Status: Never used Tobacco Tobacco use type: Cigarette e-Cigarette/Vaping Use: Never Used Second Hand Smoke Exposure: No Advance Directives Date on File: 08/12/20 service: No Current occupational status: disabled Sexual orientation: Straight/Heterosexual Gender identity: Female Cognitive needs: Yes (cane) Hearing needs: No Vision needs: Yes (Glasses) Female Reproductive History Menstrual Age of Menarche: 10 Questionnaire Thrive Questionnaire Date Thrive assessed: 06/18/24 MOSHE-7 AMB Questionnaire MOSHE-7 Date MOSHE - 7 assessed: 04/12/24 Source: Developed by Drs. Som Barrera, Stephy Taylor, Michele Li and colleagues, with an educational coleman from [employer]. Review of Systems Const Details: Denies chills, Denies fatigue, Denies fever(s), Denies headache(s) and Denies weakness HEENT Denies change in vision, Denies dizziness, Denies headache(s), Denies hearing loss, + left ear., reports intermittent nasal congestion, Denies sinus pain, Denies sinus pressure and Denies sore throat Card Denies chest pain, Denies lightheadedness, Denies dyspnea and Denies other (palpitations) Resp Denies cough, Denies dyspnea and Denies wheezing GI Denies abdominal pain, Denies melena, Denies hematochezia, Denies change in bowel habits, Denies dyspepsia and Denies nausea Denies hematuria and Denies dysuria Musc Denies abnormal gait, Denies myalgias, Denies arthralgias, +numbness (bilateral lower extremities) and Denies tingling Skin/Breast Denies rash, Denies unusual bruising and Denies wounds Neuro Denies abnormal gait, Denies dizziness, Denies headache(s), Denies memory loss, + numbness (bilateral lower extremities), Denies Sensory deficit (Neuro), Denies tingling and Denies weakness Psych + anxiety, + depression and Denies memory loss, + insomnia Endo Denies cold intolerance, Denies fatigue, Denies heat intolerance, Denies polydipsia and Denies polyuria Mo/Lymph Denies easy bleeding and Denies easy bruising Aller/Immun Denies wheezing Physical exam (Primary Care) Vital Signs: Last Vital Signs Pulse 81 06/25/24 11:15 BP 132/78 06/25/24 11:15 Pulse Ox 97 06/25/24 11:15 Oxygen Delivery Method Room Air 06/25/24 11:15 BMI result Body Mass Index 21.7 Tobacco/Smoking Status: Tobacco use Status Tobacco use date assessed 06/25/24 06/25/24 11:24 Patient Tobacco Use Status Never used Tobacco 06/25/24 11:24 Tobacco use type Cigarette 06/25/24 11:24 e-Cigarette/Vaping Use Never Used 06/25/24 11:24 Thrive Assessment: Date of Thrive Assessment Date Thrive assessed 06/18/24 06/25/24 11:24 Const Other: General: no acute distress, well developed, alert and awake Nutritional Appearance: well nourished Orientation/consciousness: patient oriented x3 HENMT Head: Yes normocephalic and Yes atraumatic Ears: hearing grossly normal bilaterally Detail: right ear impacted with cerumen blocking TM, left TM opaque without cone of light General nose exam: Normal external nose present and Normal nares present Mouth: Normal oral and palatal mucosa present and moist mucous membranes Throat: Yes oropharynx normal Eyes Pupils: Equal, round and reactive pupils present and Pupil accommodation reflex normal EOM: EOMs intact bilaterally Neck Neck: Yes normal visual inspection, Yes no lymphadenopathy and Yes trachea midline Thyroid: Thyroid normal Lymphatic: no lymphadenopathy noted Resp Effort & Inspection: normal respiratory effort Auscultation: clear to auscultation bilaterally Cardio Rate: regular rate Rhythm: regular rhythm Heart sounds: S1 normal heart sound present, S2 normal heart sound present, no gallops, no murmurs and no rubs GI Palpation (GI): Abdomen is soft and nontender to palpation Auscultation: normal bowel sounds General: Yes no CVA tenderness Back/Spine/Pelvis Back: no CVA tenderness Cervical Spine: cervical ROM normal and No Cervical spine tenderness Thoracic/Lumbar Spine: No lumbar tenderness Skin General: warm and dry. Normal skin color. Normal skin turgor Lesions: no lesions Nails: normal Neuro General: patient oriented x3, gait normal Cranial nerves: Yes Equal, round and reactive pupils present Cognition (Neuro): normal cognition Gait exam (Neuro): Normal gait present Extrem General: Yes normal to inspection, +pitting edema in BLE and No calf tenderness Psych Appearance: grossly normal Affect: normal affect Attitude: cooperative Thought process: Normal thought process present Coding Level of Care Code Est Pt Level 4 (28937) Diagnoses Bipolar 1 disorder F31.9 PTSD (post-traumatic stress disorder) F43.10 Impacted cerumen of right ear H61.21 Laterality: right Left non-suppurative otitis media H65.92 Otitis media type: unspecified nonsuppurative Laterality: left Time Spent (min) 39 Assessment & Plan Assessment & Plan (1) Bipolar 1 disorder: Code(s): F31.9 - Bipolar disorder, unspecified Category: Medical Plan: The patient present was brought to the ER due to suicidal ideation. She was recently discharged from [facility] following suicide attempt on 05/20/2024. History of multiple a SA via OD on prescription medications. She reports not sleeping and poor appetite. The patient was placed on 5 minutes safety checks and was continued on home medications. The patient showed good judgment in terms of wanting to pursue treatment. Patient had safety plan that includes presenting to the closest ER or calling 911 if feeling unsafe. The patient to follow up with Salvador Hendricks (therapy) and Gualberto Velasco (Psychiatry) (2) PTSD (post-traumatic stress disorder): Code(s): F43.10 - Post-traumatic stress disorder, unspecified Category: Medical Plan: same as above (3) Cerumen impaction: Code(s): H61.20 - Impacted cerumen, unspecified ear Category: Medical Qualifiers: Laterality: right Qualified Code(s): H61.21 - Impacted cerumen, right ear Plan: Debrox ear drops ordered (4) Otitis media: Code(s): H66.90 - Otitis media, unspecified, unspecified ear Category: Medical Qualifiers: Otitis media type: unspecified nonsuppurative Laterality: left Qualified Code(s): H65.92 - Unspecified nonsuppurative otitis media, left ear Plan: Augmentin bid x 10 days ordered Medications: New amoxicillin-pot clavulanate 500-125 mg (Augmentin) 1 tab PO BID 20 tabs 0RF 10 days H66.90 - Otitis media, unspecified, unspecified ear carbamide peroxide 6.5% (Debrox) 5 drps otic (ears) Q12H 15 mL 0RF 4 days
--- OUTSIDE RECORDS SUMMARY | 2024-06-25 13:27 | XMS_ITS | Clinical Summary ---
Author Organization [facility] Address [address] [place] [address] Care Team Providers Care Chief Embalmer Name Role Phone Chuck Davila MD Primary Care Provider [phone] Allergies Active Allergy Reactions Criticality Noted Date [...] Active traMADol (ULTRAM) 50 MG tablet TOME TURDY TABLETA CADA SEIS HORAS CUANDO SEA NECESARIO [...] age to complete this topic Care Teams Chief Embalmer Relationship Specialty Start Date End Date Chuck Davila MD [address] [place] [address] [place] [address] PCP - General Internal Medicine 04/07/23
--- OUTSIDE RECORDS SUMMARY | 2024-06-25 13:27 | XMS_ITS | Encounter Summary ---
Author Organization [employer] Address [address] [place] [address] Care Team Providers Care Dinkey Engineer Name Role Phone Unavailable Primary Care Provider Unavailabl e Encounter Details Date Type Department Care Team (Latest Contact Info) Description 07/09/2018 Abstract [facility] CONVERSIONS Dental, Provider, DDS Social History Tobacco Use Types Packs/Day Years Used Date Smoking Tobacco: Never Assessed Comments Unknown Sex and Gender Information Value Date Recorded Sex Assigned at Female 02/28/2022 10:14 AM EDT Legal Sex Female 10:14 AM EDT Gender Identity Not on file Sexual Orientation Not on file documented as of this encounter Plan of Treatment Not on file documented as of this encounter Visit Diagnoses Not on filedocumented in this encounter
--- OUTSIDE RECORDS SUMMARY | 2024-06-25 13:27 | XMS_ITS | Clinical Summary ---
Author Organization [employer] Address [address] [place] [address] [address] [place] [address] Care Team Providers Care Extruding Press Adjuster Name Role Phone Unavailable Primary Care Provider Unavailabl e Social History Tobacco Use Types Packs/Day Years Used Date Smoking Tobacco: Never Assessed Comments Unknown Sex and Gender Information Value Date Recorded Sex Assigned at Female 02/28/2022 10:14 AM EDT Legal Sex Female 10:14 AM EDT Gender Identity Not on file Sexual Orientation Not on file Plan of Treatment Health Maintenance Due Date Last Done Comments CT Colonography 1963 Colonoscopy 1963 Colorectal Cancer Screening 1963 Depression Screening 1963 FIT DNA/Cologuard 1963 FIT 1963 FOBT 1963 Sigmoidoscopy 1963 Alcohol/Substance Use Screening 1975 Tobacco Screening 1975 DTaP/Tdap/Td Vaccines (1 - Tdap) 1982 Pap Smear 1984 Cervical Cancer Screening 1993 HPV/Cotest 1993 Mammogram 2003 Pneumococcal Vaccine: 50+ Ye ars (1 of 1 - PCV) 2013 Zoster Vaccines (1 of 2) 2013 COVID-19 Vaccine ( - 2023-2 5 season) 2023 Influenza Vaccine (#1) 2023 RSV Patients and Pa tients Aged 60 years or older (1 - 1-dose 75+ series) 2038 HIB [...] patient's age to complete this topic Meningococcal Vaccine Aged Out No jesús warren eligible based on patient's age to complete this topic Pneumococcal Vaccine: Pediat rics (0 to 5 Years) and At-Risk Patients (6 to 49) Years) Aged Out No longer eligible b ased on patient's age to complete this topic RSV under 20 months Aged Out No longe r eligible based on patient's age to complete this topic Rotavirus Vaccines Aged Out No longer eligible based on patient's age to complete this topic
--- OUTSIDE RECORDS SUMMARY | 2024-06-25 13:27 | XMS_ITS | Clinical Summary ---
Author Organization [facility] Address [address] [place] [address] Care Team Providers Care Benefits Consultant Name Role Phone Chuck Davila MD Primary Care Provider [phone] Surgical History Surgery Date Site/Laterality Comments SECTION [...] age to complete this topic Care Teams Benefits Consultant Relationship Specialty Start Date End Date Chuck Davila MD [address] [place] [address] Dr [address] [place], [place] PCP - General 04/07/23
== END 2024-06-25 12:16 | disposition home or self-care (01) ==
PROVIDERS: PCP Internal Medicine
DX: F31.9 Bipolar disorder, unspecified (principal); F43.10 Post-traumatic stress disorder, unspecified; H61.21 Impacted cerumen, right ear; H65.92 Unspecified nonsuppurative otitis media, left ear

== ENCOUNTER → 2024-06-25 11:03 | Outpatient (BNVA) | payer OTHER, SELFPAY | PROVIDERS: PCP Internal Medicine | DX: F31.9 Bipolar disorder, unspecified (principal); F43.10 Post-traumatic stress disorder, unspecified; H61.21 Impacted cerumen, right ear; H65.92 Unspecified nonsuppurative otitis media, left ear | CPT/HCPCS: 99212 ==

== ENCOUNTER 2024-07-20 10:25 | Outpatient (REF) | payer OTHER, SELFPAY ==
[2024-07-20 10:53] LABS: MANUAL DIFF FLAG NO
[2024-07-20 11:15] LABS: Basophils Percent Auto 0.6 % (0-2); Eosinophils Absolute Auto 0.1 X10*3/uL (0.0-0.4); Eosinophils Percent Auto 2.1 % (0-4); Hematocrit 31.3 % (37.0-47.0); Hemoglobin 9.8 g/dl (12.0-16.0); Imm Gran Abs Auto 0.01 X10*3/uL (0.00-0.03); Imm Gran Pct Auto 0.2 % (0.0-0.4); Lymphocytes Absolute Auto 0.7 X10*3/uL (1.2-4.9); Lymphocytes Percent Auto 15.4 % (20-40); Mean Corpuscular HGB Conc 31.3 g/dl (31.0-35.0); Mean Corpuscular Hemoglobin 26.3 pg (27.0-33.0); Mean Corpuscular Volume 83.9 fL (80.0-98.0); Mean Platelet Volume 10.5 fL (9.4-12.3); Monocytes Absolute Auto 0.4 X10*3/uL (0.1-1.2); Monocytes Percent Auto 9.1 % (2-11); Neutrophils Absolute Auto 3.5 x10*3/uL (2.0-8.3); Neutrophils Percent Auto 72.6 % (45-73); Platelet Count 249 X10*3/uL (160-400); Red Blood Count 3.73 X10*6/uL (4.20-5.50); Red Cell Distribution Width 14.6 % (11.0-16.0); White Blood Count 4.8 X10*3/uL (4.8-10.8)
[2024-07-20 11:50] LABS: Alanine Aminotransferase 24 U/L (0-31); Albumin Level 3.9 g/dL (3.5-5.0); Alkaline Phosphatase 68 U/L (39-117); Anion Gap 13 (12-20); Aspartate Amino Transferase 26 U/L (5-31); Bilirubin Total 0.3 mg/dL (0.0-1.0); Blood Urea Nitrogen 19 mg/dL (9-16); C Reactive Protein 0.47 mg/dL (< or = 0.50); Calcium 8.9 mg/dL (8.4-10.2); Carbon Dioxide 24 mmol/L (22-29); Chloride 103 mmol/L (96-108); Cholesterol 178 mg/dL (<200); Estimated Glomerular Filt Rate > 60; Glucose Fasting 74 mg/dL (60-99); HDL Cholesterol 76 mg/dL (>40); LDL Cholesterol Calculated 93 mg/dL (<100); Sodium 136 mmol/L (135-145); Total Protein 7.5 g/dL (6.5-8.0); Triglycerides 45 mg/dL (<150)
[2024-07-20 11:50] LABS: Appearance Urine Turbid; Color Urine Dark Yellow; Glucose Urine UA Negative (Negative); Leukocyte Esterase Urine Moderate (2+) (Negative); Nitrite Urine Negative (Negative); PH 6.5 (5.0-9.0); Specific Gravity - Urine 1.015 (1.005-1.025); UMIC TRIGGER UACC YES; Urine Blood Trace (Negative); Urine Ketones Negative (Negative); Urine Protein Trace mg/dL (Neg-Trace)
[2024-07-20 12:00] LABS: Erythrocyte Sedimentation Rate 44 MM/HR (0-20)
[2024-07-20 12:06] LABS: Bacteria Urine 4+ (None Seen); Hyaline Casts Urine 0-2 /LPF (0-2); UACC Culture Trigger YES; WBC Urine 0-5 /HPF (0-5)
[2024-07-20 12:08] LABS: Free T4 (Free Thyroxine) 1.18 ng/dL (0.71-1.85); Thyroid Stimulating Hormone 0.68 uIU/mL (0.32-4.0)
[2024-07-20 12:18] LABS: Folate 9.4 ng/mL (> or = 4.0); Vitamin B12 452 pg/mL (200-900)
== END 2024-07-20 10:26 | disposition home or self-care (01) ==
LOC: HO.LAB 10:25
PROVIDERS: Absent Provider Nurse Practitioner Family; PCP Internal Medicine; Visit Provider Internal Medicine
DX: D64.9 Anemia, unspecified (principal); E78.00 Pure hypercholesterolemia, unspecified; M79.7 Fibromyalgia; M25.50 Pain in unspecified joint; E03.9 Hypothyroidism, unspecified; E53.8 Deficiency of other specified B group vitamins; E55.9 Vitamin D deficiency, unspecified; R39.9 Unspecified symptoms and signs involving the genitourinary system
CPT/HCPCS: 36415; 80053; 80061; 81001; 82306; 82607; 82746; 84439; 84443; 85025; 85652; 86140; 87086; 87088; 87186

== ENCOUNTER 2024-07-22 15:48 | Outpatient (AMB) | payer OTHER, SELFPAY ==
[2024-07-22 16:09] VITALS: BP 124/80; PULSE 86; O2SAT 99; BMI 21.9
--- NOTE | 2024-07-22 16:09 | A.OFFPC_ITS ---
Vital Signs 07/22/24 16:09 Height 5 ft 1.26 in Weight 117 lb 2 oz BMI 21.9 BP 124/80 Blood Pressure Location Lt brachial Position Sitting Pulse 86 Pulse Source Pulse Oximeter Pulse Oximetry (%) 99 Oxygen Delivery Method Room Air Intake Visit Reasons: 4 months Janitorial Cleaner Required: No Accompanied by: Self / Same As Patient Allergies Sulfa (Sulfonamide Antibiotics) Allergy (Severe, Verified 07/22/24 16:43) Itching codeine [CODEINE] Allergy (Intermediate, Verified 07/22/24 16:43) ITCHING hydroxychloroquine [From PLAQUENIL] Allergy (Intermediate, Verified 07/22/24 16:43) VOMITING morphine [MORPHINE] Allergy (Intermediate, Verified 07/22/24 16:43) ITCHING Estrogens Allergy (Mild, Verified 07/22/24 16:43) Unknown levothyroxine sodium Allergy (Unknown, Verified 07/22/24 16:43) rash,throat closes prednisone Allergy (Unknown, Verified 07/22/24 16:43) Unknown Corticosteroids (Glucocorticoids) [CORTICOSTEROIDS (GLUCOCORTICOIDS)] Adverse Reaction (Severe, Verified 07/22/24 16:43) DIFFICULTY BREATHING escitalopram [From Lexapro] Adverse Reaction (Severe, Verified 07/22/24 16:43) seizure meloxicam Adverse Reaction (Severe, Verified 07/22/24 16:43) Gastrointestinal Upset tadalafil [From Cialis] Adverse Reaction (Intermediate, Verified 07/22/24 16:43) Nausea and Vomiting acetaminophen [Percocet] Adverse Reaction (Unknown, Verified 07/22/24 16:43) Unknown duloxetine Adverse Reaction (Unknown, Verified 07/22/24 16:43) Unknown fluconazole Adverse Reaction (Unknown, Verified 07/22/24 16:43) Itch, pain, Medication List - Last Reconciled 07/22/24 by Chuck Davila MD albuterol sulfate 90 mcg/actuation (Ventolin HFA) 2 puffs inhalation Q6H PRN 30 days bisacodyl 10 mg (2 x 5 mg) PO DAILY PRN 30 days bupropion HCl XL 150 mg PO DAILY 30 days carbamide peroxide 6.5% (Debrox) 5 drps otic (ears) Q12H 4 days cholecalciferol (vitamin D3) 50 mcg (2 x 25 mcg (1,000 unit)) PO DAILY 30 days clonazepam 1 mg PO TID 30 days cyclosporine 0.05% 1 drp ophthalmic (eye) BID 30 days dexlansoprazole (Dexilant) 60 mg PO DAILY PRN 30 days famotidine 40 mg PO BID 30 days gabapentin 300 mg PO TID 30 days ibuprofen 400 mg PO Q6H PRN 30 days lamotrigine 100 mg PO BID 30 days lidocaine 4% (Lidocaine Pain Relief) 2 patches See Protocol transdermal DAILY 30 days lifitegrast 5% 1 drp ophthalmic (eye) BID olanzapine 10 mg PO BEDTIME 30 days ondansetron HCl 8 mg PO BEDTIME PRN 30 days oxybutynin chloride ER 10 mg (2 x 5 mg) PO DAILY PRN 30 days perfluorohexyloctane (PF) 100% (Miebo (PF)) 1 drp ophthalmic (eye) TID prazosin 1 mg See Protocol PO BEDTIME 30 days simethicone (Gas Relief (simethicone)) 160 mg (2 x 80 mg) PO QID PRN 30 days sumatriptan succinate 50 mg PO DAILY PRN 30 days [Synthroid 50 mcg PO DAILY 30 days] trazodone 50 mg PO BEDTIME 30 days Tobacco use date assessed: 07/22/24 Dental Screening Dental Screen Date: 07/22/24 Did you have a dental visit in the last 12 months?: No Did you have a dental problem in the last 6 months where you did not have access to dental care?: No Was dental information given to patient?: Patient has dentist HPI 4 months HPI Details Patient comes in today for her follow-up visit States that she has been experiencing increased pain over her lower back for the past couple of weeks She denies any recent injury or trauma to her lower back She also continues to complain of diffuse pain due to her fibromyalgia Relates feeling fatigued more than usual lately and is wondering if she is anemic again on her recent labs She was also admitted to [facility] Behavioral unit for a few days last month for increasing depression and suicide attempt She currently still has occasional migraine headaches but denies any dizziness Denies any chest pains, no increased shortness of breath No nausea/vomiting, no abdominal pain No change in bowel habits noted She is now following up with Dr. Gale for history breast cancer as her previous oncologist, Dr. Nevarez, is no longer practicing Oncology She had her follow-up labs done a couple of days ago - to discuss her results [facility] Medical History Depression Chronic pruritus Urticaria Vitamin D deficiency Polyarthralgia Small bowel motility disorder Dry mouth and eyes Seborrhea capitis in adult Bilateral sciatica Urinary frequency Abdominal pannus Positive sm/[employer]URNER antibody Family history of polyps in the colon Fracture of neck of left humerus Humeral head fracture Chronic gastritis Insomnia Hypothyroidism Seropositive rheumatoid arthritis Leukopenia Gingivitis History of breast cancer Estrogen receptor positive status [ER+] Ductal carcinoma in situ (DCIS) of left breast Autoimmune disorder PTSD (post-traumatic stress disorder) COVID-19 Bilateral knee pain Fibromyalgia Schatzki's ring Rheumatoid arthritis Small bowel motility disorder Osteoporosis Raynaud's disease without gangrene Bipolar depression Anxiety Primary insomnia Constipation Acquired hypothyroidism Systemic lupus erythematosus Left temporomandibular joint disorder, unspecified Surgical History Hx of abdominoplasty History of esophagogastroduodenoscopy (EGD) Hx of colonoscopy History of bilateral mastectomy History of total abdominal hysterectomy and bilateral salpingo-oophorectomy History of cholecystectomy History of tubal ligation History of section Family History Father Hypertension Prostate cancer Mother Breast cancer Hypertension Asthma Maternal Aunt Breast cancer Maternal Grandmother Colon cancer Maternal Aunt Breast cancer Social History Household Members: Children Household Members Other:: 2 daughters Housing: House Do you presently have visiting nurse or other home services: Yes Alcohol intake: never Patient Tobacco Use Status: Never used Tobacco Tobacco use type: Cigarette e-Cigarette/Vaping Use: Never Used Second Hand Smoke Exposure: No Advance Directives Date on File: 08/12/20 service: No Current occupational status: disabled Current occupational exposures/hazards: No Sexual orientation: Straight/Heterosexual Gender identity: Female Cognitive needs: Yes (cane) Hearing needs: No Vision needs: Yes (Glasses) Female Reproductive History Menstrual Age of Menarche: 10 Questionnaire PHQ-9 Over the last 2 weeks, how often have you been bothered by any of the following problems? 1. Little interest or pleasure in doing things: several days 2. Feeling down, depressed, or hopeless: several days 3. Trouble falling or staying asleep, or sleeping too much: several days 4. Feeling tired or having little energy: several days 5. Poor appetite or overeating: several days 6. Feeling bad about yourself - or that you are a failure or have let yourself or your family down: several days 7. Trouble concentrating on things, such as reading the newspaper or watching television: not at all 8. Moving or speaking so slowly that other people could have noticed. Or the opposite - being so fidgety or restless that you have been moving around a lot more than usual: not at all 9. Thoughts that you would be better off or of hurting yourself in some wa y: not at all Total score: 6 Depression Screening Interpretation: Positive Depression Screening Follow-up: Existing condition and In treatment Depression Screening Done: Yes 73922 - PHQ-9 Billing: Yes Source: Developed by Drs. Som Barrera, Stephy Taylor, Michele Li and colleagues, with an educational coleman from [employer] website. Thrive Questionnaire Date Thrive assessed: 07/22/24 I am a: Patient What is your living situation today?: I have a steady place to live Within the past 12 months, did the food you bought not last and you didn't have the money to get more?: Never true Within the past 12 months, did you worry whether your food would run out before you got money to buy more?: Never true Do you have trouble paying for medicines?: No Do you have trouble getting transportation to medical appointments?: No Do you have trouble paying your heating and electricity bill?: No Do you have trouble taking care of your child, family member or friend?: No Do you have trouble with day-to-day activities such as bathing, preparing meals, shopping, managing finances, etc.?: No Are you currently unemployed and looking for a job?: No Are you interested in more education?: No Please select the resources that you would like help with: None Currently or been in a relationship where the following occur: No concerns reported THRIVE Score: 0 AUDIT C Alcohol Use Questionnaire (AUDIT-C) 1. How often do you have a drink containing alcohol?: Never 3. How often do you have six or more drinks on one occasion?: Never Total Score: 0 Score Reviewed/Action Taken: Yes MOSHE-7 AMB Questionnaire MOSHE-7 Date MOSHE - 7 assessed: 07/22/24 Feeling nervous, anxious, or on edge: 0 = Not at all Not being able to stop or control worryin = Not at all Worrying too much about different things: 0 = Not at all Trouble relaxin = Not at all Being so restless that it is hard to sit still: 0 = Not at all Becoming easily annoyed or irritable: 0 = Not at all Feeling afraid as if something awful might happen: 0 = Not at all Total MOSHE-7 score (0-4 normal; 5-9 mild; 10-14 moderate; 15-21 severe): 0 Source: Developed by Drs. Som Barrera, Stephy Taylor, Michele Li and colleagues, with an educational coleman from [employer] website. Review of Systems Const Reports body aches (diffuse), Denies chills, Reports fatigue (chronic), Denies fever(s) and Reports headache(s) (occasional) ENT Denies dysphagia, Denies dizziness, Denies otalgia, Reports headache(s) (occasional), Reports neck pain (chronic), Denies odynophagia and Denies sore throat Card Denies chest pain, Reports irregular heart rhythm (c/o on and off sensations of flutterring or palpitations of her heart), Denies palpitations and Reports dyspnea on exertion (mild, chronic) Resp Denies chest congestion, Denies cough and Reports dyspnea on exertion (mild, chronic) GI Denies abdominal pain, Reports constipation (Rx helping), Denies dysphagia, Denies heartburn, Denies diarrhea, Denies nausea, Denies odynophagia and Denies vomiting Denies hematuria, Reports nocturia, Denies dysuria and Denies urinary urgency Musc Reports back pain (over the lower back, on and off; also over both shoulder areas ), Reports arthralgias (involving multiple joints, especially both shoulders/scapular areas) and Reports neck pain (chronic) Skin/Breast Denies rash Neuro Denies dizziness and Reports headache(s) (occasional) Psych Reports anxiety and Reports depression Endo Reports fatigue (chronic) and Denies palpitations Physical exam (Primary Care) Vital Signs: Last Vital Signs Pulse 86 07/22/24 16:09 BP 124/80 07/22/24 16:09 Pulse Ox 99 07/22/24 16:09 Oxygen Delivery Method Room Air 07/22/24 16:09 BMI result Body Mass Index 21.9 Tobacco/Smoking Status: Tobacco use Status Tobacco use date assessed 07/22/24 07/22/24 16:15 Patient Tobacco Use Status Never used Tobacco 07/22/24 16:15 Tobacco use type Cigarette 07/22/24 16:15 e-Cigarette/Vaping Use Never Used 07/22/24 16:15 PHQ-9: PHQ-9 Score PHQ-9: Total score 6 07/23/24 00:21 Depression Screening Interpretation: Positive Depression Screening Follow-up: Existing condition and In treatment Thrive Assessment: Date of Thrive Assessment Date Thrive assessed 07/22/24 07/22/24 16:15 Currently or been in a relationship where the following occur: No concerns reported Const General: no acute distress and alert HENMT Ears: TM's normal bilaterally and EAC's normal Throat: Yes posterior oropharynx normal and Yes tonsils normal Neck Neck: No lymphadenopathy and Yes tender (over the cervical spine and paraspinal areas bilaterally) Thyroid: Thyroid normal Resp Auscultation: clear to auscultation bilaterally, no rales and no wheezes Cardio Rate: regular rate Rhythm: regular rhythm Heart sounds: no murmurs GI Palpation (GI): Soft to palpation and nontender Auscultation: normal bowel sounds General: Yes no CVA tenderness Back/Spine/Pelvis Back: no CVA tenderness Thoracic/Lumbar Spine: paraspinal muscle tenderness bilaterally (over the cervical and thoracolumbar spine (diffuse)) and lumbar spinal tenderness Skin Rashes: no rashes Extrem General: Yes no clubbing, cyanosis or edema Right upper extremity: shoulder/upper arm Details: tenderness (diffusely over the scapular area) Left upper extremity: shoulder/upper arm Details: tenderness (diffusely over the scapular areas) Results Reviewed Results Reviewed: Laboratory Tests 07/20/24 07/20/24 10:51 10:52 WBC 4.8 Hgb 9.8 L Hct 31.3 L Plt Count 249 Sodium 136 Potassium 4.0 Creatinine 0.54 Estimated GFR > 60 Fasting Glucose 74 Calcium 8.9 AST 26 ALT 24 C-Reactive Protein 0.47 Triglycerides 45 Cholesterol 178 LDL Cholesterol, Calc 93 HDL Cholesterol 76 Vitamin B12 452 25-OH Vitamin D Total 40.0 TSH 0.68 Free T4 1.18 Ur Specific Crum 1.015 Urine Protein Trace Urine Glucose (UA) Negative Urine Ketones Negative Urine Blood Trace H Urine Nitrite Negative Ur Leukocyte Esterase Moderate (2+) H Coding Level of Care Code Est Pt Level 4 (77060) Complex EM visit Add On G2211 Diagnoses Fibromyalgia M79.7 Polyarthralgia M25.50 Systemic lupus erythematosus, unspecified SLE type, unspecified organ involvement status M32.9 Systemic lupus erythematosus type: unspecified Systemic lupus erythematosus organ involvement: unspecified Dystonia G24.9 Nonintractable episodic headache, unspecified headache type R51.9 Headache type: unspecified Headache chronicity pattern: episodic headache Intractability: not intractable Oral phase dysphagia R13.11 Dysphagia type: oral phase Acquired hypothyroidism E03.9 Chronic pruritus L29.9 Anemia, unspecified type D64.9 Anemia type: unspecified type Osteoporosis without current pathological fracture, unspecified osteoporosis type M81.0 Osteoporosis type: unspecified Presence of current pathological fracture: without current pathological fracture Midline low back pain without sciatica, unspecified chronicity M54.50 Chronicity: unspecified Back pain laterality: midline Sciatica presence: without sciatica Vitamin D deficiency E55.9 Gastroesophageal reflux disease without esophagitis K21.9 Esophagitis presence: without esophagitis Chronic idiopathic constipation K59.04 Interstitial cystitis N30.10 Primary insomnia F51.01 Anxiety F41.9 Bipolar depression F31.9 Additional Codes PHQ-9 - 19074 - PHQ-9 Billing: Yes ([id number]) Assessment & Plan Assessment & Plan (1) Fibromyalgia: Code(s): M79.7 - Fibromyalgia Category: Medical Plan: Patient used to see Dr. Castrejon at [facility] in [place] previously and was reportedly advised that although she tested positive for DANA, all other workups were negative and she has no clinical evidence of active disease and there is no indication for treatment for lupus or RA at the time Was advised that most of her pain symptoms are due to fibromyalgia She was seen by rheumatology here at [facility] previously and was advised of the same - that she has no evidence of active inflammatory joint disease and there is no indication for therapy; was also reportedly advised that she may have fibromyalgia but to continue following up with her PCP for this as they do NOT treat or manage fibromyalgia, which patient finds strange Have advised patient that rheumatology nowadays mostly do not see fibromyalgia patients anymore and management of these are often left up to the patient's PCP to handle Patient is again encouraged to stay active and exercise regularly (as tolerated) to help manage her fibromyalgia symptoms Continue Lidocaine patches PRN and Gabapentin 300 mg TID (2) Polyarthralgia: Code(s): M25.50 - Pain in unspecified joint Category: Medical Plan: Continue Orphenadrine ER 100 mg BID and Diclofenac sodium 1% gel topically PRN Follow up with [facility] Pain Management as scheduled She was going to physical therapy previously but states that she did not experience any relief from PT and has been advised to consider a referral to physiatry instead (3) Systemic lupus erythematosus: Code(s): M32.9 - Systemic lupus erythematosus, unspecified Category: Medical Qualifiers: Systemic lupus erythematosus type: unspecified Systemic lupus erythematosus organ involvement: unspecified Qualified Code(s): M32.9 - Systemic lupus erythematosus, unspecified Plan: Patient reports (+) Hx of SLE and she received some unrecalled Tx for lupus while she was still living in [place] many years ago but did not tolerate the Tx She has been advised by Rheumatology here on more than one occasion that although she tested positive for DANA, she has no clinical evidence of active disease and there is no indication for treatment for lupus or RA at this time (4) Dystonia: Code(s): G24.9 - Dystonia, unspecified Category: Medical Plan: She continues to receive botox injections from neurology when needed for cervical dystonia Follow up with neurology as scheduled (5) Headache: Code(s): R51.9 - Headache, unspecified Category: Medical Qualifiers: Headache type: unspecified Headache chronicity pattern: episodic headache Intractability: not intractable Qualified Code(s): R51.9 - Headache, unspecified Plan: Continue Sumatriptan 50 mg PRN Patient is reminded to continue avoiding any potential migraine triggers as best as she can Follow up with neurology as scheduled (6) Dysphagia: Comment: ORAL PHASE WITH CHOKING ON SOLID FOODS Code(s): R13.10 - Dysphagia, unspecified Category: Medical Qualifiers: Dysphagia type: oral phase Qualified Code(s): R13.11 - Dysphagia, oral phase Plan: Modified barium swallow done last year revealed the presence of a mild esophageal webbing at the level of C5 She was seen by GI for follow up and underwent EGD and colonoscopy a few months ago on 03/19/2024 EGD revealed findings of mild esophagitis and gastritis and she also underwent balloon dilatation of her esophagus, with (+) perceived improvement of her dysphagia since (7) Acquired hypothyroidism: Code(s): E03.9 - Hypothyroidism, unspecified Category: Medical Plan: Her TFTs were normal on her recent labs Continue Synthroid 50 mcg QD Follow up with endocrinology as scheduled (8) Chronic pruritus: Code(s): L29.9 - Pruritus, unspecified Category: Medical Plan: She is currently still taking Loratadine 10 mg Q AM and Cetirizine 10 mg 1 to 2 tablets Q HS PRN for her symptoms She has been seeing allergists at [facility] for the past couple of years She recently failed Xolair and was started on Dupixent instead (9) Anemia: Comment: mild Code(s): D64.9 - Anemia, unspecified Category: Medical Qualifiers: Anemia type: unspecified type Qualified Code(s): D64.9 - Anemia, unspecified Plan: Have advised patient that her anemia appears to have gotten worse lately and that she should go back on her iron supplements Will start her back on Ferrous Sulfate 325 mg QD - she is reminded that this can make her constipated and she needs to make sure she is taking her stool softeners daily to help alleviate her constipation symptoms Her colonoscopy done back in March 2024 came back showing only findings of melanosis coli and (+) internal hemorrhoids Due to fair colon prep, she was recommended to get a repeat colonoscopy in 5 years Will have patient recheck her labs in 4 months for follow up (10) Osteoporosis: Code(s): M81.0 - Age-related osteoporosis without current pathological fracture Category: Medical Qualifiers: Osteoporosis type: unspecified Presence of current pathological fracture: without current pathological fracture Qualified Code(s): M81.0 - Age- related osteoporosis without current pathological fracture Plan: Continue oral calcium and Vitamin D supplements daily Fall precautions reinforced Follow up with endocrinology as scheduled - she was referred by Dr. Brandon to the [facility] Vitamin D and bone metabolism unit for a second opinion but states that she has not yet been contacted for an appointment Have advised patient / daughter to reach out to Dr. Brandon regarding this as I am not familiar with the place that she was referred to nor with the reason as to why she is being referred there (11) Low back pain: Code(s): M54.5 - Low back pain Category: Medical Qualifiers: Chronicity: unspecified Back pain laterality: midline Sciatica presence: without sciatica Qualified Code(s): M54.50 - Low back pain, unspecified Plan: Will send patient for repeat lumbar spine x-rays for further evaluation (12) Vitamin D deficiency: Code(s): E55.9 - Vitamin D deficiency, unspecified Category: Medical Plan: Continue Vitamin D2 07201 units once a week (13) GERD (gastroesophageal reflux disease): Code(s): K21.9 - Gastro-esophageal reflux disease without esophagitis Category: Medical Qualifiers: Esophagitis presence: without esophagitis Qualified Code(s): K21.9 - Gastro-esophageal reflux disease without esophagitis Plan: Dietary restrictions reinforced Continue Dexilant 60 mg QD (14) Chronic idiopathic constipation: Code(s): K59.04 - Chronic idiopathic constipation Category: Medical Plan: Continue Bisacodyl PRN and Colace 100 mg QD PRN Patient is again encouraged on increased oral fluids and dietary fiber Follow up with GI as scheduled (15) Interstitial cystitis: Code(s): N30.10 - Interstitial cystitis (chronic) without hematuria Category: Medical Plan: Her urinary bladder US done last year revealed (+) posterior wall trabeculations but no generalized bladder wall thickening and no masses or calculi noted S/P cystoscopy with hydrodistention by urology last year, with reported significant improvement of her symptoms following the procedure Patient is again encouraged to increase her oral fluid intake and was advised that drinking cranberry juice may help with her symptoms Follow up with urology as scheduled (16) Primary insomnia: Code(s): F51.01 - Primary insomnia Category: Medical Plan: Sleep hygiene reinforced Continue Trazodone 50 mg Q HS (17) Anxiety: Code(s): F41.9 - Anxiety disorder, unspecified Category: Medical Plan: Continue Clonazepam 1 mg TID PRN Follow up with psychiatry as scheduled (18) Bipolar depression: Code(s): F31.9 - Bipolar disorder, unspecified Category: Medical Plan: Continue Bupropion XL 150 mg QD, Lamotrigine 100 mg BID, Prazosin 1 mg Q HS and Olanzapine 10 mg Q HS Follow-up with Psychiatry as scheduled Plan Follow-up in 4 months Orders: Orders Lipid Panel 4 Months E78.00 - Pure hypercholesterolemia, unspecified IRON PROFILE 4 Months D50.9 - Iron deficiency anemia, unspecified Complete Blood Count Auto Diff 4 Months D64.9 - Anemia, unspecified Comprehensive Story. Panel Fast 4 Months E78.00 - Pure hypercholesterolemia, unspecified TSH reflex Free T4 4 Months E78.00 - Pure hypercholesterolemia, unspecified UA CC w/rflx Micro + Cult 4 Months R30.0 - Dysuria Vitamin B12 and Folate 4 Months E53.8 - Deficiency of other specified B group vitamins XR lumbar spine 2-3V 07/22/24 M54.50 - Low back pain, unspecified Medications: New ferrous sulfate (Feosol) 325 mg PO DAILY 30 days 30 tabs 5RF
== END 2024-07-22 17:07 | disposition home or self-care (01) ==
LOC: HO.HMCH 15:49
PROVIDERS: PCP Internal Medicine; Visit Provider Internal Medicine
DX: M79.7 Fibromyalgia (principal); M32.9 Systemic lupus erythematosus, unspecified; F31.9 Bipolar disorder, unspecified; M25.50 Pain in unspecified joint; G24.9 Dystonia, unspecified; R51.9 Headache, unspecified; R13.11 Dysphagia, oral phase; E03.9 Hypothyroidism, unspecified; L29.9 Pruritus, unspecified; D64.9 Anemia, unspecified; M81.0 Age-related osteoporosis without current pathological fracture; M54.50 Low back pain, unspecified

== ENCOUNTER → 2024-07-22 15:48 | Outpatient (BNVA) | payer OTHER, SELFPAY | PROVIDERS: PCP Internal Medicine; Visit Provider Internal Medicine | DX: M79.7 Fibromyalgia (principal); M25.50 Pain in unspecified joint; M32.9 Systemic lupus erythematosus, unspecified; G24.9 Dystonia, unspecified; R51.9 Headache, unspecified; R13.11 Dysphagia, oral phase; E03.9 Hypothyroidism, unspecified; L29.9 Pruritus, unspecified; D64.9 Anemia, unspecified; M81.0 Age-related osteoporosis without current pathological fracture; M54.50 Low back pain, unspecified; E55.9 Vitamin D deficiency, unspecified; K21.9 Gastro-esophageal reflux disease without esophagitis; K59.04 Chronic idiopathic constipation; N30.10 Interstitial cystitis (chronic) without hematuria; F41.9 Anxiety disorder, unspecified; F31.9 Bipolar disorder, unspecified; F51.01 Primary insomnia | CPT/HCPCS: 96127; 99212 ==

== ENCOUNTER 2024-08-02 13:16 | Outpatient (AMB) | payer OTHER, SELFPAY ==
[2024-08-02 13:22] VITALS: BP 122/80; PULSE 78; O2SAT 97
--- NOTE | 2024-08-02 13:22 | MHC.OFFWIV ---
Intake Vital Signs 08/02/24 13:22 Height 5 ft 1 in BP 122/80 Blood Pressure Location Lt brachial Position Sitting Pulse 78 Pulse Source Pulse Oximeter Pulse Oximetry (%) 97 Oxygen Delivery Method Room Air Intake Visit Reasons: EP-uti Patient Tobacco Use Status: Never used Tobacco Allergies Sulfa (Sulfonamide Antibiotics) Allergy (Severe, Verified 08/02/24 13:22) Itching codeine [CODEINE] Allergy (Intermediate, Verified 08/02/24 13:22) ITCHING hydroxychloroquine [From PLAQUENIL] Allergy (Intermediate, Verified 08/02/24 13:22) VOMITING morphine [MORPHINE] Allergy (Intermediate, Verified 08/02/24 13:22) ITCHING Estrogens Allergy (Mild, Verified 08/02/24 13:22) Unknown levothyroxine sodium Allergy (Unknown, Verified 08/02/24 13:22) rash,throat closes prednisone Allergy (Unknown, Verified 08/02/24 13:22) Unknown Corticosteroids (Glucocorticoids) [CORTICOSTEROIDS (GLUCOCORTICOIDS)] Adverse Reaction (Severe, Verified 08/02/24 13:22) DIFFICULTY BREATHING escitalopram [From Lexapro] Adverse Reaction (Severe, Verified 08/02/24 13:22) seizure meloxicam Adverse Reaction (Severe, Verified 08/02/24 13:22) Gastrointestinal Upset tadalafil [From Cialis] Adverse Reaction (Intermediate, Verified 08/02/24 13:22) Nausea and Vomiting acetaminophen [Percocet] Adverse Reaction (Unknown, Verified 08/02/24 13:22) Unknown duloxetine Adverse Reaction (Unknown, Verified 08/02/24 13:22) Unknown fluconazole Adverse Reaction (Unknown, Verified 08/02/24 13:22) Itch, pain, Do you need a note to return to daycare/school/sports/work: No HPI EP-uti HPI Details This is a 59-year-old female patient who presents to the walk-in Clinic with report of UTI symptoms. She states that several weeks ago, she was diagnosed with a UTI and was prescribed nitrofurantoin for this. Unfortunately she only took 2 tablets, and then she misplaced the bottle, so did not continue the course. She continues to have urinary odor, frequency, urgency, burning. She denies any fever, however reports feeling ?hot and cold . Denies flank pain. [facility] Medical History Depression Chronic pruritus Urticaria Vitamin D deficiency Polyarthralgia Small bowel motility disorder Dry mouth and eyes Seborrhea capitis in adult Bilateral sciatica Urinary frequency Abdominal pannus Positive sm/[employer] antibody Family history of polyps in the colon Fracture of neck of left humerus Humeral head fracture Chronic gastritis Insomnia Hypothyroidism Seropositive rheumatoid arthritis Leukopenia Gingivitis History of breast cancer Estrogen receptor positive status [ER+] Ductal carcinoma in situ (DCIS) of left breast Autoimmune disorder PTSD (post-traumatic stress disorder) COVID-19 Bilateral knee pain Fibromyalgia Schatzki's ring Rheumatoid arthritis Small bowel motility disorder Osteoporosis Raynaud's disease without gangrene Bipolar depression Anxiety Primary insomnia Constipation Acquired hypothyroidism Systemic lupus erythematosus Left temporomandibular joint disorder, unspecified Surgical History Hx of abdominoplasty History of esophagogastroduodenoscopy (EGD) Hx of colonoscopy History of bilateral mastectomy History of total abdominal hysterectomy and bilateral salpingo-oophorectomy History of cholecystectomy History of tubal ligation History of section Family History Father Hypertension Prostate cancer Mother Breast cancer Hypertension Asthma Maternal Aunt Breast cancer Maternal Grandmother Colon cancer Maternal Aunt Breast cancer Social History Household Members: Children Household Members Other:: 2 daughters Housing: House Do you presently have visiting nurse or other home services: Yes Alcohol intake: never Patient Tobacco Use Status: Never used Tobacco Tobacco use type: Cigarette e-Cigarette/Vaping Use: Never Used Second Hand Smoke Exposure: No Advance Directives Date on File: 08/12/20 service: No Current occupational status: disabled Current occupational exposures/hazards: No Sexual orientation: Straight/Heterosexual Gender identity: Female Cognitive needs: Yes (cane) Hearing needs: No Vision needs: Yes (Glasses) Female Reproductive History Menstrual Age of Menarche: 10 Review of Systems Const All systems reviewed & are unremarkable except as noted in HPI and below Physical Exam Vital Signs: Last Vital Signs Pulse 78 08/02/24 13:22 BP 122/80 08/02/24 13:22 Pulse Ox 97 08/02/24 13:22 Oxygen Delivery Method Room Air 08/02/24 13:22 Const General: cooperative, healthy appearing, comfortable and no acute distress Resp Effort & Inspection: normal respiratory effort Auscultation: clear to auscultation bilaterally Cardio Rate: regular rate Rhythm: regular rhythm General: Yes bladder normal to palpation (mild pressure with palp) and Yes no CVA tenderness Bimanual exam- vagina & uterus: bladder normal to palpation (mild pressure with palp) Back/Spine/Pelvis Back: no CVA tenderness Skin General skin exam: no rashes or lesions noted Extrem General: Yes capillary refill normal and Yes no clubbing, cyanosis or edema Psych Appearance: grossly normal Mental Status: mental status grossly normal Speech and movement: Normal speech and movement present Results AMB Urinalysis, Automated UA Leukoctes 15 Kristie/uL Last Edit by Tyson Latif CMA on 08/02/24 15:00 UA Nitrite Negative Last Edit by Tysno Latif CMA on 08/02/24 15:00 UA Urobilinogen 0.2 mg/dL Last Edit by Tyson Latif CMA on 08/02/24 15:00 UA Protein 30 mg/dL Last Edit by Tyson Latif CMA on 08/02/24 15:00 UA pH 6.0 Last Edit by Tyson Latif CMA on 08/02/24 15:00 UA Blood 0 Josue/uL Last Edit by Tyson Latif CMA on 08/02/24 15:00 UA Specific [place] 1.030 Last Edit by Tyson Latif CMA on 08/02/24 15:00 UA Ketone Positive Last Edit by Tyson Latif CMA on 08/02/24 15:00 UA Bilirubin 1 mg/dL Last Edit by Tyson Latif CMA on 08/02/24 15:00 UA Glucose 0 mg/dL Last Edit by Tyson Latif CMA on 08/02/24 15:00 Assessment & Plan Assessment & Plan (1) UTI (urinary tract infection): Code(s): N39.0 - Urinary tract infection, site not specified Plan: Will restart the nitrofurantoin course. She only had 2 tablets of the prior course several weeks ago. Also will prescribe Pyridium for her dysuria. We reviewed indications, use, possible side effects of these medications. I encouraged increased hydration. She can also take Tylenol/Motrin as needed. If she does not improve with treatment, or if symptoms worsen, she can return to the clinic for further evaluation. Patient and her daughter present at visit verbalized understanding and agreed to plan. (2) Dysuria: Code(s): R30.0 - Dysuria Plan: As above Orders: Orders AMB Urinalysis Automated Today Z13.9 - Encounter for screening, unspecified Medications: New nitrofurantoin macrocrystal Take twice a day with food for 5 days. 100 mg PO BID 10 caps 0RF 5 days N39.0 - Urinary tract infection, site not specified phenazopyridine 200 mg PO TID PRN 6 tabs 0RF pain 6 doses R30.0 - Dysuria Coding Level of Care Code Est Pt Level 4 (08188) Diagnoses UTI (urinary tract infection) N39.0 Dysuria R30.0
--- OUTSIDE RECORDS SUMMARY | 2024-08-02 15:08 | XMS_ITS | Clinical Summary ---
Author Organization [facility] Address [address] [place] [address] Care Team Providers Care Brick Stacker Name Role Phone Chuck Davila MD Primary Care Provider Surgical History Surgery Date Site/Laterality Comments SECTION PROCEDURE: SECTION TUBAL LIGATION PROCEDURE:TUBAL LIGATION MASTECTOMY PROCEDURE:MASTECTOMY COLONOSCOPY PROCEDURE:COLONOSCOPY HYSTERECTOMY PROCEDURE:HYSTERECTOMY Medical History Medical History Date Comments Breast cancer DX:Breast cancer (HCC) Disease of thyroid gland DX:Dise [...] Last Done Comments Breast Cancer Screening 1963 DTaP,Tdap,and Td Vaccines (1 - Tdap) 1982 Cervical Cancer Screening: P ap Smear 1984 Pneumococcal Vaccine: 50+ Ye ars (1 of 1 - PCV) 2013 Zoster Vaccines (1 of 2) 2013 Colorectal Cancer Screening: Colonoscopy 03/29/2022 Depression Screening 03/29/2022 HIV Screening 03/29/2022 Hepatitis C Screening 03/29/2022 Social Influencers of Health Screening 03/29/2022 COVID-19 Vaccine ( - 2023-2 5 season) 2023 Influenza Vaccine (#1) 2023 RSV Immunization Adult Patie nts (1 - 1-dose 75+ series) 2038 HIB [...] and At-Risk Patients (6 to 64 Years) Aged Out No longer eligible b ased on patient's age to complete this topic RSV Immunization Patients Un dana 20 months Aged Out No longer eligible b ased on patient's age to complete this topic Varicella Vaccines Aged Out No longer eligible based on patient's age to complete this topic Care Teams Brick Stacker Relationship Specialty Start Date End Date Chuck Davila MD [address] [place] [address] Dr [address] [place] PCP - General 04/07/23
--- OUTSIDE RECORDS SUMMARY | 2024-08-02 15:08 | XMS_ITS | Clinical Summary ---
Author Organization [employer] Address [address] [place] [address] [address] [place] [address] Care Team Providers Care Vice President Fixed Income Name Role Phone Unavailable Primary Care Provider [...]
--- OUTSIDE RECORDS SUMMARY | 2024-08-02 15:08 | XMS_ITS | Encounter Summary ---
Author Organization [employer] Address [address] [place] [address] Care Team Providers Care Occupational Health And Safety Manager Name Role Phone Unavailable Primary Care Provider Unavailabl e Encounter Details Date Type Department Care Team (Latest Contact Info) Description 07/09/2018 Abstract [facility] CONVERSIONS Dental, Provider, DDS Social History Tobacco [...]
--- OUTSIDE RECORDS SUMMARY | 2024-08-02 15:08 | XMS_ITS | Clinical Summary ---
Author Organization [facility] Address [address] [place] [address] Care Team Providers Care Instructional Developer Name Role Phone Chuck Davila MD Primary Care Provider [phone]- [phone] Allergies Active Allergy Reactions Criticality Noted Date [...] age to complete this topic Care Teams Instructional Developer Relationship Specialty Start Date End Date Chuck Davila MD [address] [place] [address] [place] [address] PCP - General Internal Medicine 04/07/23
== END 2024-08-02 14:11 | disposition home or self-care (01) ==
PROVIDERS: PCP Internal Medicine; Visit Provider Nurse Practitioner Family
DX: N39.0 Urinary tract infection, site not specified (principal); R30.0 Dysuria; Z13.9 Encounter for screening, unspecified

== ENCOUNTER → 2024-08-02 13:16 | Outpatient (BNVA) | payer OTHER, SELFPAY | PROVIDERS: PCP Internal Medicine | DX: N39.0 Urinary tract infection, site not specified (principal); R30.0 Dysuria | CPT/HCPCS: 81003; 99212 ==

== ENCOUNTER → 2024-08-07 15:22 | Outpatient (BNV) | payer OTHER, SELFPAY | PROVIDERS: PCP Internal Medicine; Referring Provider Internal Medicine; Visit Provider Radiology Diagnostic Radiology | DX: M54.50 Low back pain, unspecified (principal); M47.896 Other spondylosis, lumbar region | CPT/HCPCS: 72100 ==

== ENCOUNTER 2024-08-12 15:38 | Inpatient (IN) | payer OTHER, SELFPAY ==
--- NOTE | 2024-08-12 | ECG_ITS ---
Test Reason : TOXIC INGESTION Blood Pressure : */* mmHG Vent. Rate : 76 BPM Atrial Rate : 76 BPM P-R Int : 148 ms QRS Dur : 78 ms QT Int : 406 ms P-R-T Axes : 72 65 79 degrees QTcB Int : 456 ms Normal sinus rhythm Normal ECG When compared with ECG of 12-Aug-2024 16:17, No significant change was found Referred By: Sarah Huber Electronically Signed By: ALISA ADAMS MD
--- NOTE | 2024-08-12 16:03 | ECG_ITS ---
Test Reason : OVERDOSE Blood Pressure : */* mmHG Vent. Rate : 80 BPM Atrial Rate : 80 BPM P-R Int : 148 ms QRS Dur : 72 ms QT Int : 396 ms P-R-T Axes : 71 60 79 degrees QTcB Int : 456 ms Normal sinus rhythm Septal infarct , age undetermined Abnormal ECG When compared with ECG of 14-Jun-2024 07:39, Left bundle branch block is no longer Present Septal infarct is now Present Referred By: Minerva Stuart Electronically Signed By: ALISA ADAMS MD
[2024-08-12 16:04] VITALS: BP 128/72; PULSE 79; O2SAT 100
[2024-08-12 16:16] VITALS: BP 134/73; PULSE 79; RESP 14; TEMP 36.4; O2SAT 99
[2024-08-12 16:22] VITALS: BP 134/73; PULSE 81; RESP 18; TEMP 36.3; O2SAT 99; BMI 19.9
--- NOTE | 2024-08-12 16:41 | MHC.EDTECH ---
pt belongings secured in bottom shelf of [facility] closet
[2024-08-12 16:56] LABS: MANUAL DIFF FLAG NO
[2024-08-12 16:57] LABS: Basophils Percent Auto 0.5 % (0-2); Eosinophils Absolute Auto 0.1 X10*3/uL (0.0-0.4); Eosinophils Percent Auto 1.6 % (0-4); Hematocrit 31.8 % (37.0-47.0); Hemoglobin 10.1 g/dl (12.0-16.0); Imm Gran Abs Auto 0.01 X10*3/uL (0.00-0.03); Imm Gran Pct Auto 0.2 % (0.0-0.4); Lymphocytes Absolute Auto 1.1 X10*3/uL (1.2-4.9); Lymphocytes Percent Auto 25.1 % (20-40); Mean Corpuscular HGB Conc 31.8 g/dl (31.0-35.0); Mean Corpuscular Hemoglobin 26.4 pg (27.0-33.0); Mean Corpuscular Volume 83.2 fL (80.0-98.0); Monocytes Absolute Auto 0.5 X10*3/uL (0.1-1.2); Monocytes Percent Auto 10.8 % (2-11); Neutrophils Absolute Auto 2.7 x10*3/uL (2.0-8.3); Neutrophils Percent Auto 61.8 % (45-73); Platelet Count 212 X10*3/uL (160-400); Red Blood Count 3.82 X10*6/uL (4.20-5.50); Red Cell Distribution Width 14.7 % (11.0-16.0); White Blood Count 4.4 X10*3/uL (4.8-10.8)
[2024-08-12 17:16] LABS: Acetaminophen LAB < 3 mcg/mL (<30); Alanine Aminotransferase 13 U/L (0-31); Albumin Level 3.6 g/dL (3.5-5.0); Alkaline Phosphatase 58 U/L (39-117); Anion Gap 9 (12-20); Aspartate Amino Transferase 20 U/L (5-31); Bilirubin Total 0.2 mg/dL (0.0-1.0); Blood Urea Nitrogen 13 mg/dL (9-16); Calcium 8.8 mg/dL (8.4-10.2); Carbon Dioxide 30 mmol/L (22-29); Chloride 110 mmol/L (96-108); Creatinine Clr Calc Pharmacy 80.8; Estimated Glomerular Filt Rate > 60; Ethanol < 10 mg/dL; Glucose Random 79 mg/dL (60-115); Potassium 3.9 mmol/L (3.3-5.1); Salicylate < 5.0 mg/dL (15-30); Sodium 145 mmol/L (135-145); Total Protein 6.4 g/dL (6.5-8.0)
--- NOTE | 2024-08-12 17:24 | ED_ITS ---
HPI - General Adult General Chief complaint: Psychiatric Symptoms Stated complaint: took pills, suicidal x bipolar depression Time Seen by Provider: 08/12/24 16:33 Source: patient Limitations: no limitations History of Present Illness ED Provider: Jessica Allred PA-C HPI narrative: 59-year-old female with a history of bipolar disorder, PTSD, depression, anxiety, lupus, hypothyroidism, Raynaud's, fibromyalgia, osteoarthritis, osteoporosis, chronic pain who presents with toxic ingestion. Patient states she has numerous psychosocial stressors in regard to her finances. She states she is having difficulty making ends me, that she is afraid she is not going to pay her mortgage. She states that her daughter is a co-employment specialist/program manager of the home. She states that the daughter left and now has her own apartment. Patient states ?I want to , I have too many problems, they are getting worse?. Patient consumed an unknown quantity of some of her prescribed medications. The patient was not being forthcoming about how many pills she took of each medication, she is also not being forthcoming about which medications she consumed. The patient has bupropion 150 mg, clonazepam 1 mg, gabapentin 300 mg, trazodone 50 mg, at her disposal. Related Data Home Medications ?Medication ?Instructions ?Recorded ?Confirmed cholecalciferol (vitamin D3) 50 50 mcg PO DAILY 08/02/24 mcg (2,000 unit) capsule (Vitamin D3) cimetidine 800 mg tablet 800 mg PO BID 08/02/24 diclofenac sodium 1 % topical gel topical BID 08/02/24 diclofenac sodium 75 mg 75 mg PO BID 08/02/24 tablet,delayed release doxepin 10 mg capsule 10 mg PO BEDTIME 08/02/24 levothyroxine 50 mcg tablet 50 mcg PO DAILY 08/02/24 (Synthroid) oxybutynin chloride 10 mg 10 mg PO DAILY 08/02/24 tablet,extended release 24 hr sertraline 50 mg tablet 50 mg PO DAILY 08/02/24 Previous Rx's ?Medication ?Instructions ?Recorded bisacodyl 5 mg tablet,delayed 10 mg (2 x 5 mg) PO DAILY PRN 06/06/24 release Constipation 30 days #30 tabs bupropion HCl 150 mg 24 hr tablet, 150 mg PO DAILY 30 days #30 tabs 06/06/24 extended release cholecalciferol (vitamin D3) 25 50 mcg (2 x 25 mcg (1,000 unit)) 06/06/24 mcg (1,000 unit) tablet PO DAILY 30 days #60 tabs clonazepam 1 mg tablet 1 mg PO TID 30 days #90 tabs 06/06/24 cyclosporine 0.05 % eye drops in a 1 drp ophthalmic (eye) BID 30 days 06/06/24 dropperette #60 ea famotidine 40 mg tablet 40 mg PO BID 30 days #60 tabs 06/06/24 gabapentin 300 mg capsule 300 mg PO TID 30 days #90 caps 06/06/24 ibuprofen 400 mg tablet 400 mg PO Q6H PRN Pain, 06/06/24 Moderate(Pain Scale 4-6) 30 days #60 tabs lamotrigine 100 mg tablet 100 mg PO BID 30 days #60 tabs 06/06/24 lidocaine 4 % topical patch 2 patch transdermal DAILY 30 days 06/06/24 (Lidocaine Pain Relief) #60 ea lifitegrast 5 % eye drops in a 1 drp ophthalmic (eye) BID #60 ea 06/06/24 dropperette olanzapine 10 mg tablet 10 mg PO BEDTIME 30 days #30 tabs 06/06/24 ondansetron HCl 8 mg tablet 8 mg PO BEDTIME PRN Nausea 30 days 06/06/24 #30 tabs perfluorohexyloctane (PF) 100 % 1 drp ophthalmic (eye) TID #5 mL 06/06/24 eye drops (Miebo (PF)) prazosin 1 mg capsule 1 mg PO BEDTIME 30 days #30 caps 06/06/24 simethicone 80 mg chewable tablet 160 mg (2 x 80 mg) PO QID PRN Gas 06/06/24 (Gas Relief (simethicone)) 30 days #60 tabs sumatriptan succinate 50 mg tablet 50 mg PO DAILY PRN Migraine 06/06/24 Headache 30 days #30 tabs trazodone 50 mg tablet 50 mg PO BEDTIME 30 days #30 tabs 06/06/24 dexlansoprazole 60 mg 60 mg PO DAILY PRN Acid Reflux 30 06/28/24 capsule,biphase delayed release days #30 caps (Dexilant) albuterol sulfate 90 mcg/actuation 2 puff inhalation Q6H PRN for 07/10/24 aerosol inhaler (Ventolin HFA) wheezing 30 days #1 inhaler ferrous sulfate 325 mg (65 mg 325 mg PO DAILY 30 days #30 tabs 07/22/24 iron) tablet (Feosol) phenazopyridine 200 mg tablet 200 mg PO TID PRN pain 6 doses #6 08/02/24 tabs nitrofurantoin 100 mg PO Q12H 5 days #10 caps 08/06/24 monohydrate/macrocrystals 100 mg capsule (Macrobid) Allergies Allergy/AdvReac Type Severity Reaction Status Date / Time Sulfa (Sulfonamide Allergy Severe Itching Verified 08/12/24 16:28 Antibiotics) codeine [CODEINE] Allergy Intermediate ITCHING Verified 08/12/24 16:28 hydroxychloroquine Allergy Intermediate VOMITING Verified 08/12/24 16:28 [From PLAQUENIL] morphine [MORPHINE] Allergy Intermediate ITCHING Verified 08/12/24 16:28 Estrogens Allergy Mild Unknown Verified 08/12/24 16:28 levothyroxine sodium Allergy Unknown rash,throat Verified 08/12/24 16:28 closes prednisone Allergy Unknown Unknown Verified 08/12/24 16:28 Corticosteroids AdvReac Severe DIFFICULTY Verified 08/12/24 16:28 (Glucocorticoids) BREATHING [CORTICOSTEROIDS (GLUCOCORTICOIDS)] escitalopram [From Lexapro] AdvReac Severe seizure Verified 08/12/24 16:28 meloxicam AdvReac Severe Gastrointestinal Verified 08/12/24 16:28 Upset tadalafil [From Cialis] AdvReac Intermediate Nausea and Verified 08/12/24 16:28 Vomiting acetaminophen [Percocet] AdvReac Unknown Unknown Verified 08/12/24 16:28 duloxetine AdvReac Unknown Unknown Verified 08/12/24 16:28 fluconazole AdvReac Unknown Itch, pain, Verified 08/12/24 16:28 Review of Systems 2 Review of Systems: Yes all other systems are reviewed and are negative Constitutional: Constitutional: Denies fatigue and Denies fever(s) Cardiovascular: Cardiovascular: Denies chest pain and Denies dyspnea Respiratory: Respiratory: Denies cough and Denies dyspnea Gastrointestinal: Gastrointestinal: Denies abdominal pain, Reports nausea and Denies vomiting Endocrine: Endocrine: Denies fatigue PMFSH Past Medical History Attestation statement: The following information was validated with the patient. Medical History Depression Chronic pruritus Urticaria Vitamin D deficiency Polyarthralgia Small bowel motility disorder Dry mouth and eyes Seborrhea capitis in adult Bilateral sciatica Urinary frequency Abdominal pannus Positive sm/CIRCUS HAND antibody Family history of polyps in the colon Fracture of neck of left humerus Humeral head fracture Chronic gastritis Insomnia Hypothyroidism Seropositive rheumatoid arthritis Leukopenia Gingivitis History of breast cancer Estrogen receptor positive status [ER+] Ductal carcinoma in situ (DCIS) of left breast Autoimmune disorder PTSD (post-traumatic stress disorder) COVID-19 Bilateral knee pain Fibromyalgia Schatzki's ring Rheumatoid arthritis Small bowel motility disorder Osteoporosis Raynaud's disease without gangrene Bipolar depression Anxiety Primary insomnia Constipation Acquired hypothyroidism Systemic lupus erythematosus Left temporomandibular joint disorder, unspecified Surgical History Hx of abdominoplasty History of esophagogastroduodenoscopy (EGD) Hx of colonoscopy History of bilateral mastectomy History of total abdominal hysterectomy and bilateral salpingo-oophorectomy History of cholecystectomy History of tubal ligation History of section Family History Family History (Updated 08/07/24 @ 14:57 by Alverto Shrestha) Father Prostate cancer Hypertension Mother Breast cancer Hypertension Asthma Maternal Aunt Breast cancer Maternal Grandmother Colon cancer Maternal Aunt Breast cancer Sister Bone cancer Social History Social History Household Members: Children Household Members Other:: 2 daughters Housing: House Do you presently have visiting nurse or other home services: Yes Alcohol intake: never Patient Tobacco Use Status: Never used Tobacco Tobacco use type: Cigarette Smoked in Last 30 Days: No e-Cigarette/Vaping Use: Never Used Second Hand Smoke Exposure: No Use of substances other than those prescribed or required for medical reasons: No Advance Directives: Yes Advance Directives on File: Yes Advance Directives Date on File: 08/12/20 Do you have a plan to hurt others: No Plan Patient : No service: No Current occupational status: disabled Current occupational exposures/hazards: No Sexual orientation: Straight/Heterosexual Gender identity: Female Cognitive needs: Yes (cane) Hearing needs: No Vision needs: Yes (Glasses) Physical Exam ED Vital Signs: Vital Signs - 24 hr 08/12/24 16:16 08/12/24 16:22 Temperature 97.6 F 97.3 F Pulse Rate 79 81 Respiratory Rate 14 18 Blood Pressure 134/73 134/73 Pulse Oximetry 99 99 Oxygen Delivery Method Room Air Room Air BMI result Body Mass Index 19.9 Const Other: Alert well-appearing Orientation/consciousness: oriented to person and oriented to place Eyes Other: Pupils equal in size and reactive to light not pinpoint Resp Effort & Inspection: normal respiratory effort Cardio Other: Normal peripheral perfusion Skin Other: Warm dry no rash Neuro General: oriented to person, oriented to place, gait normal, no focal motor deficits and CN's II-XI intact bilaterally Psych Other: Cooperative, tearful at times Course Consultations Consultation #1: poison control Recs as follow up. 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 She requires an observation of 24 hours, she is at risk to develop seizures if she consumed too much bupropion. It was also recommended to watch for QT prolongation, she should have EKGs Q 2 hours x2, followed by EKGs Q 4 hour. She can then be medically cleared. Time: 17:24 Medical Decision Making Medical Decision Making MDM Narrative: 59-year-old female with a history of bipolar disorder, PTSD, depression, anxiety, lupus, hypothyroidism, Raynaud's, fibromyalgia, osteoarthritis, osteoporosis, chronic pain who presents with toxic ingestion. Patient states she has numerous psychosocial stressors in regard to her finances. She states she is having difficulty making ends me, that she is afraid she is not going to pay her mortgage. She states that her daughter is a co-employment specialist/program manager of the home. She states that the daughter left and now has her own apartment. Patient states ?I want to , I have too many problems, they are getting worse?. Patient consumed an unknown quantity of some of her prescribed medications. The patient was not being forthcoming about how many pills she took of each medication, she is also not being forthcoming about which medications she consumed. The patient has bupropion 150 mg, clonazepam 1 mg, gabapentin 300 mg, trazodone 50 mg, at her disposal. Problem: Psychiatric illness History: Per patient I have considered the following differential diagnoses: Toxic ingestion, SI, HI, decompensated psychiatric illness, drug/alcohol intoxication Plan: We will be reaching out to poison control. In the meantime we are screening broad labs including basics, salicylate and Tylenol levels, drug screen, ethanol, LFTs and an EKG. The patient was currently stable. Labs: No leukocytosis, not anemic, chloride 110, bicarb 30, gap of 9, no other electrolyte abnormalities, Tylenol and salicylate levels are normal, ethanol less than 10, U tox negative EKG: Normal sinus rhythm, rate 80, no ischemic changes no ectopy QTC 456 DC 148, QRS 72 EKG 2. At the 2 hour cassius: Normal sinus rhythm, rate of 76, DC 148, QRS duration 78, QTC 456 Lab Data 08/12/24 16:52 08/12/24 16:52 Labs: Lab Results 08/12/24 08/12/24 Range/Units 16:31 16:52 WBC 4.4 L (4.8-10.8) X10*3/uL RBC 3.82 L (4.20-5.50) X10*6/uL Hgb 10.1 L (12.0-16.0) g/dl Hct 31.8 L (37.0-47.0) % MCV 83.2 (80.0-98.0) fL MCH 26.4 L (27.0-33.0) pg MCHC 31.8 (31.0-35.0) g/dl RDW 14.7 (11.0-16.0) % Plt Count 212 (160-400) X10*3/uL MPV 10.0 (9.4-12.3) fL Immature Gran % (Auto) 0.2 (0.0-0.4) % Neut % (Auto) 61.8 (45-73) % Lymph % (Auto) 25.1 (20-40) % Pitkin % (Auto) 10.8 (2-11) % Eos % (Auto) 1.6 (0-4) % Baso % (Auto) 0.5 (0-2) % Lymph # (Auto) 1.1 L (1.2-4.9) X10*3/uL Pitkin # (Auto) 0.5 (0.1-1.2) X10*3/uL Eos # (Auto) 0.1 (0.0-0.4) X10*3/uL Baso # (Auto) 0.0 (0.0-0.2) X10*3/uL Abs Immat Gran (auto) 0.01 (0.00-0.03) X10*3/uL Absolute Neuts (auto) 2.7 (2.0-8.3) x10*3/uL Absolute Nucleated RBC 0.000 (0.0-0.012) X10*3/uL Nucleated RBC % (auto) 0.0 (0.0-0.2) /100WBC Sodium 145 (135-145) mmol/L Potassium 3.9 (3.3-5.1) mmol/L Chloride 110 H (96-108) mmol/L Carbon Dioxide 30 H (22-29) mmol/L Anion Gap 9 L (12-20) BUN 13 (9-16) mg/dL Creatinine 0.57 (0.5-1.4) mg/dL Estim Creat Clear Calc 80.8 Estimated GFR > 60 Random Glucose 79 (60-115) mg/dL Calcium 8.8 (8.4-10.2) mg/dL Total Bilirubin 0.2 (0.0-1.0) mg/dL AST 20 (5-31) U/L ALT 13 (0-31) U/L Alkaline Phosphatase 58 (39-117) U/L Total Protein 6.4 L (6.5-8.0) g/dL Albumin 3.6 (3.5-5.0) g/dL Urine Color Yellow Urine Appearance Clear Urine pH 6.5 (5.0-9.0) Ur Specific Cyp[place] <= 1.005 (1.005-1.025) Urine Protein Negative (Neg-Trace) mg/dL Urine Glucose (UA) Negative (Negative) mg/dL Urine Ketones Negative (Negative) mg/dL Urine Blood Negative (Negative) Urine Nitrite Negative (Negative) Ur Leukocyte Esterase Trace H (Negative) Urine RBC 0-2 (0-2) /HPF Urine WBC 0-5 (0-5) /HPF Ur Squamous Epith Cells 0-2 (0-2) /HPF Urine Bacteria None Seen (None Seen) Hyaline Casts 0-2 (0-2) /LPF Salicylates < 5.0 L (15-30) mg/dL Urine Opiates Screen Not Detected (Not Detect) Ur Buprenorphine Scrn Not Detected (Not Detect) ng/mL Ur Oxycodone Screen Not Detected (Not Detect) ng/mL Urine Methadone Screen Not Detected (Not Detect) ng/mL Urine Fentanyl Screen Not Detected (Not Detect) Acetaminophen < 3 (<30) mcg/mL Ur Barbiturates Screen Not Detected (Not Detect) Ur Phencyclidine Scrn Not Detected (Not Detect) Ur Amphetamines Screen Not Detected (Not Detect) U Benzodiazepines Scrn Not Detected (Not Detect) Urine Cocaine Screen Not Detected (Not Detect) U Marijuana (THC) Screen Not Detected (Not Detect) Ethyl Alcohol < 10 mg/dL COVID-19 (FRANK) Negative (Negative) COVID-19 Clin Com See Note Discharge Plan Discharge Patient Disposition: Admitted As Inpatient Interventions: Beltrami-Suicide Risk Severity Scale Last Done: 08/12/24 17:21 Print Language: Nepali
[2024-08-12 17:30] LABS: Appearance Urine Clear; Color Urine Yellow; Glucose Urine UA Negative (Negative); Leukocyte Esterase Urine Trace (Negative); Nitrite Urine Negative (Negative); PH 6.5 (5.0-9.0); Specific Gravity - Urine <= 1.005 (1.005-1.025); UMIC TRIGGER UA YES; Urine Blood Negative (Negative); Urine Ketones Negative (Negative); Urine Protein Negative (Neg-Trace)
[2024-08-12 17:39] LABS: Amphetamine Screen Urine Not Detected (Not Detect); Barbiturates, Urine Not Detected (Not Detect); Benzodiazepines Screen Urine Not Detected (Not Detect); Buprenorphine Scr Not Detected (Not Detect); Cannabinoid Screen Urine Not Detected (Not Detect); Cocaine Screen Urine Not Detected (Not Detect); Fentanyl, urine Not Detected (Not Detect); Methadone Screen, Urine Not Detected (Not Detect); Opiate Screen Urine Not Detected (Not Detect); Oxycodone Screen Urine Not Detected (Not Detect); Phencyclidine Screen Urine Not Detected (Not Detect)
[2024-08-12 17:53] LABS: COVID-19 Test Negative (Negative); IDNOW Serial# 55D5AD1C
[2024-08-12 17:55] LABS: Bacteria Urine None Seen (None Seen); Hyaline Casts Urine 0-2 /LPF (0-2); RBC Urine 0-2 /HPF (0-2); Squamous Epithelial Cell Urine 0-2 /HPF (0-2); WBC Urine 0-5 /HPF (0-5)
--- NOTE | 2024-08-12 18:03 | ECG_ITS ---
Test Reason : ARRYTHMIA Blood Pressure : */* mmHG Vent. Rate : 75 BPM Atrial Rate : 75 BPM P-R Int : 148 ms QRS Dur : 72 ms QT Int : 404 ms P-R-T Axes : 65 57 70 degrees QTcB Int : 451 ms Normal sinus rhythm Normal ECG When compared with ECG of 12-Aug-2024 18:13, No significant change was found Referred By: Sarah Huber Electronically Signed By: ALISA ADAMS MD
--- OUTSIDE RECORDS SUMMARY | 2024-08-12 18:30 | XMS_ITS | Clinical Summary ---
Author Organization [employer] Address [address] [place] [address] [address] [place] [address] Care Team Providers Care Weight Tester Name Role Phone Unavailable Primary Care Provider [...]
--- OUTSIDE RECORDS SUMMARY | 2024-08-12 18:30 | XMS_ITS | Clinical Summary ---
Author Organization [facility] Address [address] [place] [address] Care Team Providers Care Consumer Lending Manager Name Role Phone Chuck Davila MD Primary Care Provider Surgical History Surgery Date Site/Laterality Comments SECTION PROCEDURE: SECTION TUBAL LIGATION PROCEDURE:TUBAL LIGATION MASTECTOMY PROCEDURE:MASTECTOMY COLONOSCOPY PROCEDURE:COLONOSCOPY HYSTERECTOMY PROCEDURE:HYSTERECTOMY Medical History Medical History Date Comments Breast cancer (CMS/HCC V24, CMS/[facility] V28) DX:Breast cancer (HCC) Disease of thyroid gland DX:Dise ase of thyroid gland Severe depression (CMS/HCC V24, CMS/HCC V28) DX:Severe depression (HCC) Family History Medical History Relation [...] Influencers of Health Screening 03/29/2022 COVID-19 Vaccine (1 - 2023-2 5 season) 2023 Influenza Vaccine (Season Ended) 2024 RSV Immunization Adult Patie nts (1 - [...] age to complete this topic Meningococcal B Vaccine Aged Out No l onger eligible based on patient's age to complete [...] age to complete this topic Care Teams Consumer Lending Manager Relationship Specialty Start Date End Date Chuck Davila MD [address] [place] [address] Dr [address] ANJU Huerta PCP - General 04/07/23
--- OUTSIDE RECORDS SUMMARY | 2024-08-12 18:30 | XMS_ITS | Clinical Summary ---
Author Organization [facility] Address [address] [place] [address] Care Team Providers Care Slubber Hand Name Role Phone Chuck Davila MD Primary Care Provider [phone] Allergies Active Allergy Reactions Criticality Noted Date [...] age to complete this topic Care Teams Slubber Hand Relationship Specialty Start Date End Date Chuck Davila MD [address] [place] [address] [place] [id number] PCP - General Internal Medicine 04/07/23
--- OUTSIDE RECORDS SUMMARY | 2024-08-12 18:30 | XMS_ITS | Encounter Summary ---
Author Organization [employer] Address [address] [place] [address] Care Team Providers Care Basketball Scout Name Role Phone Unavailable Primary Care Provider Unavailabl e Encounter Details Date Type Department Care Team (Latest Contact Info) Description 07/09/2018 Abstract [facility] CONVERSIONS Dental, Provider, DDS Social History [...]
[2024-08-12 19:18] LABS: Magnesium 2.1 mg/dL (1.6-2.6)
--- NOTE | 2024-08-12 19:59 | PM.IMHP ---
History of Present Illness Date of Service: 08/12/24 Attending physician on admission: Chasidy Campbell Chief Complaint: suicide attempt with medication I want to Pt is a 59yo female Czech speaking with PMH migraine, Breast cancer s/p B mastectomy and implants in [place], scoliosis, lumbar spondylosis, Bipolar depression, SI in the past, hypothyroidism, VIT D deficiency, constipation, thrush, UTI Ecoli 07/20/24 presents to ED after ingesting unknown number of pills (trazadone, clonazepam are possible sources per pt's daughter) at approximately 230 PM. Pt was not wearing her glasses and is not sure how much of each medication she took but pt clearly states I want to . Pt also offers that she is considering throwing herself down the stairs or getting in the car and driving into a wall. Pt is currently on a Section 12 with a 1:[address] The ED did call poison control and we are admitting patient monitoring ECG every 2 Hours X2 then Q4 hours until the morning when pt would likely be medically cleared. Pt may be at risk for seizures as well if she took too much buproprion. Psychiatric consult ordered. Pt has been dealing with financial strain since her other daughter left. Pt is not able to afford the house without her daughter's financial support. Both the pt and daughter are on the mortgage. Pt's other daughter is very present and currently living with her mother and helping by paying rent but this is still not enough. Next mortgage payment is due in August and they do not have the funds. Daughter states there are no weapons in the home and pt does not use alcohol, marijuana or illicit drugs. Pt follows with [facility] for psychiatry and therapy. Pt was admitted to [facility] in May and was discharged and supposed to start new medications including a mood stabilizer but pt never received the new prescriptions (per Daughter's recollection). ECG notes Qtc 451 1800. Repeat ECG pending. VSS. Toxicology screen negative. ETOH and tylenol levels are not detected. Pt had recent UTI with ecoli and reports dysuria today. UA with trace LE only, no bacteria or WBCs. Urine culture requested. Pt also lives with chronic pain, has 2 breast implants that are causing pain in her back due to her scoliosis. Pt has seen 4 plastic surgeons here in the local area and no one is able to surgically remove implants and replace with smaller one. Pt had original surgery in [place]. Pt's chronic pain may be contributing to her overall depression and unstable mood. Recent Lumbar Xray on 08/07/24 notes Mild spondylosis lower lumbar spine. Review of Systems Review of Systems: Patient denies chest pain, shortness of breath, nausea, vomiting, visual changes, lower leg pain, recent falls. Patient offers she is having a mild headache in the frontal and parietal areas which is considered chronic. Pt reports chronic low back pain as well and upper back related to her implants and the size. 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 antibody Family history of polyps in the colon Fracture of neck of left humerus Humeral head fracture Chronic gastritis Insomnia Hypothyroidism Seropositive rheumatoid arthritis Leukopenia Gingivitis History of breast cancer Estrogen receptor positive status [ER+] Ductal carcinoma in situ (DCIS) of left breast Autoimmune disorder PTSD (post-traumatic stress disorder) COVID-19 Bilateral knee pain Fibromyalgia Schatzki's ring Rheumatoid arthritis Small bowel motility disorder Osteoporosis Raynaud's disease without gangrene Bipolar depression Anxiety Primary insomnia Constipation Acquired hypothyroidism Systemic lupus erythematosus Left temporomandibular joint disorder, unspecified Functional capacity: independent ambulation Family History Father Prostate cancer Hypertension Mother Breast cancer Hypertension Asthma Maternal Aunt Breast cancer Maternal Grandmother Colon cancer Maternal Aunt Breast cancer Sister Bone cancer Surgical History Hx of abdominoplasty History of esophagogastroduodenoscopy (EGD) Hx of colonoscopy History of bilateral mastectomy History of total abdominal hysterectomy and bilateral salpingo-oophorectomy History of cholecystectomy History of tubal ligation History of section Social History Household Members: Children Household Members Other:: 2 daughters Housing: House Do you presently have visiting nurse or other home services: Yes Alcohol intake: never Patient Tobacco Use Status: Never used Tobacco Tobacco use type: Cigarette Smoked in Last 30 Days: No e-Cigarette/Vaping Use: Never Used Second Hand Smoke Exposure: No Use of substances other than those prescribed or required for medical reasons: No Advance Directives: Yes Advance Directives on File: Yes Advance Directives Date on File: 08/12/20 Do you have a plan to hurt others: No Plan Patient : No service: No Current occupational status: disabled Current occupational exposures/hazards: No Sexual orientation: Straight/Heterosexual Gender identity: Female Cognitive needs: Yes (cane) Hearing needs: No Vision needs: Yes (Glasses) Ebola Risk: Travel/Contact With Anyone From Affected Area/s: No Has Patient Experienced Ebola Symptoms: No Meds Allergies Allergy/AdvReac Type Severity Reaction Status Date / Time Sulfa (Sulfonamide Allergy Severe Itching Verified 08/12/24 16:28 Antibiotics) codeine [CODEINE] Allergy Intermediate ITCHING Verified 08/12/24 16:28 hydroxychloroquine Allergy Intermediate VOMITING Verified 08/12/24 16:28 [From PLAQUENIL] morphine [MORPHINE] Allergy Intermediate ITCHING Verified 08/12/24 16:28 Estrogens Allergy Mild Unknown Verified 08/12/24 16:28 levothyroxine sodium Allergy Unknown rash,throat Verified 08/12/24 16:28 closes prednisone Allergy Unknown Unknown Verified 08/12/24 16:28 Corticosteroids AdvReac Severe DIFFICULTY Verified 08/12/24 16:28 (Glucocorticoids) BREATHING [CORTICOSTEROIDS (GLUCOCORTICOIDS)] escitalopram [From Lexapro] AdvReac Severe seizure Verified 08/12/24 16:28 meloxicam AdvReac Severe Gastrointestinal Verified 08/12/24 16:28 Upset tadalafil [From Cialis] AdvReac Intermediate Nausea and Verified 08/12/24 16:28 Vomiting acetaminophen [Percocet] AdvReac Unknown Unknown Verified 08/12/24 16:28 duloxetine AdvReac Unknown Unknown Verified 08/12/24 16:28 fluconazole AdvReac Unknown Itch, pain, Verified 08/12/24 16:28 Active Medications: Current Medications Calcium Carbonate (Calcium Carbonate 750 Mg Tab.Chew) 750 mg PO Q4H PRN PRN Reason: Heartburn Enoxaparin Sodium (Enoxaparin Sodium 40 Mg/0.4 Ml Syringe) 40 mg SUBCUT Q24H TINO Magnesium Hydroxide (Milk Of Magnesia 30 Ml Oral.Susp) 30 ml PO DAILY PRN PRN Reason: Constipation Melatonin (Melatonin 3 Mg Tablet) 6 mg PO BEDTIME PRN PRN Reason: Insomnia Senna (Sennosides 8.6 Mg Tablet) 17.2 mg PO BEDTIME TINO Sodium Chloride (0.9 % Sodium Chloride Flush 3 Ml Syringe) 3 ml IVFLUSH QSHIFT TINO Home Medications ?Medication ?Instructions ?Recorded ?Confirmed ?Last Taken ?Type cholecalciferol (vitamin D3) 50 50 mcg PO DAILY 08/02/24 08/12/24 Unknown History mcg (2,000 unit) capsule (Vitamin D3) cimetidine 800 mg tablet 800 mg PO BID 08/02/24 08/12/24 Unknown History diclofenac sodium 1 % topical gel 1 ea topical BID 08/02/24 08/12/24 Unknown History diclofenac sodium 75 mg 75 mg PO BID 08/02/24 08/12/24 Unknown History tablet,delayed release doxepin 10 mg capsule 10 mg PO BEDTIME 08/02/24 08/12/24 Unknown History levothyroxine 50 mcg tablet 50 mcg PO DAILY 08/02/24 08/12/24 Unknown History (Synthroid) oxybutynin chloride 10 mg 10 mg PO DAILY 08/02/24 08/12/24 Unknown History tablet,extended release 24 hr onabotulinumtoxinA 200 unit 200 unit IM [id number] 08/12/24 08/12/24 07/29/24 History solution for injection (Botox) Physical Exam Vital Signs and Narrative: Vital Signs: Last Vital Signs Temp 97.3 F 08/12/24 16:22 Pulse 81 08/12/24 16:22 Resp 18 08/12/24 16:22 BP 134/73 08/12/24 16:22 Pulse Ox 99 08/12/24 16:22 O2 Del Method Room Air 08/12/24 16:22 BMI result Body Mass Index 19.9 Alert and orientated X3, bahamian speaking, able to follow commands, answer questions Neuro: CN II-X11 intact, no deficits, visual acuity intact, glasses on EYES: PERRLA, EOM intact ENT: hearing intact, no issues with swallowing, uvula midline, lips moist, nares patent no epistaxis Cardiac: S1 S2 RRR, no murmur, no JVD, no edema in Lower ext Pulmonary: lungs clear to auscultation B Abdominal: BS active in all 4 quadrants, no guarding, tenderness, rebounding MSK: strength 4/5 upper and lower extremities : no CVA tenderness no bladder distension Extremities: no edema in lower extremities, PT and DP pulses palpable +2 Psych: mood sad, pt tearful at times Skin: pale, no open wounds noted Results Labs 08/12/24 16:52 08/12/24 16:52 Labs: Laboratory Results - last 24 hr 08/12/24 08/12/24 16:31 16:52 MCV 83.2 MCH 26.4 L MCHC 31.8 RDW 14.7 Plt Count 212 MPV 10.0 Immature Gran % (Auto) 0.2 Neut % (Auto) 61.8 Lymph % (Auto) 25.1 Posey % (Auto) 10.8 Eos % (Auto) 1.6 Baso % (Auto) 0.5 Lymph # (Auto) 1.1 L Posey # (Auto) 0.5 Eos # (Auto) 0.1 Baso # (Auto) 0.0 Abs Immat Gran (auto) 0.01 Absolute Neuts (auto) 2.7 Absolute Nucleated RBC 0.000 Nucleated RBC % (auto) 0.0 Anion Gap 9 L Estim Creat Clear Calc 80.8 Estimated GFR > 60 Random Glucose 79 Calcium 8.8 Magnesium 2.1 Total Bilirubin 0.2 AST 20 ALT 13 Alkaline Phosphatase 58 Total Protein 6.4 L Albumin 3.6 Urine Color Yellow Urine Appearance Clear Urine pH 6.5 Ur Specific Combs <= 1.005 Urine Protein Negative Urine Glucose (UA) Negative Urine Ketones Negative Urine Blood Negative Urine Nitrite Negative Ur Leukocyte Esterase Trace H Urine RBC 0-2 Urine WBC 0-5 Ur Squamous Epith Cells 0-2 Urine Bacteria None Seen Hyaline Casts 0-2 Salicylates < 5.0 L Urine Opiates Screen Not Detected Ur Buprenorphine Scrn Not Detected Ur Oxycodone Screen Not Detected Urine Methadone Screen Not Detected Urine Fentanyl Screen Not Detected Acetaminophen < 3 Ur Barbiturates Screen Not Detected Ur Phencyclidine Scrn Not Detected Ur Amphetamines Screen Not Detected U Benzodiazepines Scrn Not Detected Urine Cocaine Screen Not Detected U Marijuana (THC) Screen Not Detected Ethyl Alcohol < 10 COVID-19 (FRANK) Negative COVID-19 Clin Com See Note ECG Attestation: I personally reviewed and interpreted this ECG as follows: (Vent. Rate : 75 BPM Atrial Rate : 75 BPM P-R Int : 148 ms QRS Dur : 72 ms QT Int : 404 ms P-R-T Axes : 65 57 70 degrees QTcB Int : 451 ms Normal sinus rhythm Normal ECG) Prior ECG tracings: available for review Assessment and Plan (1) Overdose by ingestion: Status: Acute (2) Suicidal ideation: Status: Acute (3) Dysuria: Status: Acute (4) Bipolar 1 disorder: Status: Acute (5) Chronic idiopathic constipation: Status: Acute (6) Vitamin D deficiency: Status: Acute (7) Acquired hypothyroidism: Status: Acute Plan Pt is a 59yo female Czech speaking with PMH migraine, Breast cancer s/p B mastectomy and implants in [place], scoliosis, lumbar spondylosis, constipaton, VIT D deficiency, Bipolar depression, SI in the past, hypothyroidism, thrush, UTI Ecoli is being admitted for suicidal attempt via prescription medications currently on a section 12 awaiting psychiatric review and medical clearance. 1. Suicide ideation with overdose attempt using prescription medication (unclear which medications and how much) -patient is on a one-to-one and a section 12 awaiting psychiatric consultation for possible inpatient admission as pt is still suicidal with ideations including overdosing again, throwing self down the stairs and or driving car into a wall -poison control recommended EKG every 2 hours x2 and if QTC remains normal can go to every 4 hours until the morning. If QTC remained stable patient can be medically cleared. QTC currently 451 -Telemetry, neuro checks Q2H -Seizure precautions in case pt took too much Bupropion per poison control -holding current routine meds 2. Dysuria -UA positive for trace leukocyte esterase but negative for bacteria nitrites or white blood cells. Urine culture requested -no indication to start antibiotics -encourage hydration 3. Bipolar 1 disorder -holding usual medication until patient is seen by Psychiatry 4. Chronic idiopathic constipation -adding senna at bedtime and MiraLax p.r.n. 5. Vitamin-D deficiency -we will check vitamin-D level, resume vitamin-D likely tomorrow 6. Acquired hypothyroidism -checking TSH and free T4 prior to resuming patient's levothyroxine. Patient can only take the brand name Synthroid. Lovenox for DVT prophylaxis No PPI at this time Patient requires inpatient hospitalization for suicidal attempt with continued ideations on a section 12. Psychiatric consult pending. EKGs continue as we are monitoring patient's QTC which currently has remained normal. Total time managing care of this patient today: 45 minutes. Quality Stroke Does the patient have a stroke diagnosis?: No Reason for No Anti-thrombotic by Day Two: N/A - Med Ordered VTE Prior VTE?: No VTE Risk Level:: Medical - moderate - high VTE Device Contraindication: N/A - Device Ordered VTE Drug Contraindication: N/A - Med Ordered
[2024-08-12 20:00] VITALS: BP 118/70; PULSE 74; RESP 18; TEMP 36.3; O2SAT 97
--- NOTE | 2024-08-12 20:22 | PHA.MEDREC ---
Addendum entered by Lyle Rojo [facility] 08/12/24 21:08: MED REC CHECKED BY [facility] Original Note: Pharmacy Consult ? Medication Reconciliation Pharmacy has completed the medication reconciliation. Spoke to patient to confirm med list , however she only could confirm a few medications. Patient states that her daughter gives her the medications to take. Patient states she took over 20 pills , however she doesn't remember which one she took. Called and spoke to patients Daughter over the phone and she was able to confirm patient medications. Daughter states patient no longer takes Ferrous Sulfate 325 mg, Lidocain patch, Olonzipine 10 mg, Ondasertron 8 mg, Phenazopyridine 200 mg, Prazosin 1 mg, Sertraline 50 mg, Simethicone 160 mg. Daughter states patient last had Botox 2 weeks ago. Patient and Daughter states patient can only have brand name Synthroid 50 mcg. Daughter states she will bring patient medication tomorrow.
[2024-08-12 20:33] LABS: TSH reflex Free T4 0.12 uIU/mL (0.32-4.0)
[2024-08-12] MEDS: Enoxaparin Sodium 40 MG/0.4 ML SYRINGE SUBCUT (20:42)
[2024-08-12] MEDS: Sennosides 8.6 MG TABLET 17.2 MG PO (20:42)
[2024-08-12 21:08] LABS: Free T4 (Free Thyroxine) 1.19 ng/dL (0.71-1.85)
--- NOTE | 2024-08-12 22:20 | PC.NURSE ---
Spoke to Poison Control , updated them on VS and f/u information that EMIR Ruiz has previously spoke to them.
[2024-08-12 22:39] VITALS: BP 115/58; PULSE 72; RESP 16; TEMP 36.6; O2SAT 94
--- NOTE | 2024-08-12 23:00 | ECG_ITS ---
Test Reason : repeat Blood Pressure : */* mmHG Vent. Rate : 78 BPM Atrial Rate : 78 BPM P-R Int : 154 ms QRS Dur : 84 ms QT Int : 418 ms P-R-T Axes : 60 57 75 degrees QTcB Int : 476 ms Normal sinus rhythm Normal ECG When compared with ECG of 12-Aug-2024 20:09, No significant change was found Referred By: Sarah Huber Electronically Signed By: ALISA ADAMS MD
[2024-08-13 00:16] VITALS: BP 116/60; PULSE 76; RESP 12; TEMP 36.6; O2SAT 97
[2024-08-13] MEDS: 0.9 % Sodium Chloride Flush 3 ML SYRINGE IVFLUSH ×2 (00:17→09:39)
--- NOTE | 2024-08-13 02:46 | PC.NURSE ---
this rn assumed care of pt, pt neuros in tact with substitute teacher at bedside. pt noted to have belongings at bedside, as pt is endorsing si, belonings removed and placed in vladimir port shelf 3. belongings list updated. sitter remains at bedside for safety.
--- NOTE | 2024-08-13 03:00 | ECG_ITS ---
Test Reason : OD/REPEAT Blood Pressure : */* mmHG Vent. Rate : 69 BPM Atrial Rate : 69 BPM P-R Int : 160 ms QRS Dur : 76 ms QT Int : 414 ms P-R-T Axes : 39 52 69 degrees QTcB Int : 443 ms Normal sinus rhythm with sinus arrhythmia Normal ECG When compared with ECG of 13-Aug-2024 00:13, No significant change was found Referred By: Sarah Huber Electronically Signed By: ALISA ADAMS MD
--- NOTE | 2024-08-13 03:13 | PC.NURSE ---
pt verbally upset with the inability to have belongings at bedside. gaming cage worker and chargemaster specialist Esme at bedside. explained to pt that it is for her safety to not have belongings, pt stated frustration and stated she will leave and take more pills. this rn stated to pt that she can not leave due to being at risk of harm to self. pt requesting medications to relax. aware, plan to have medications ordered.
--- NOTE | 2024-08-13 03:27 | PC.NURSE ---
ekg obtained at this time and sent via tiger text to
[2024-08-13 06:13] VITALS: BP 110/57; PULSE 70; RESP 14; TEMP 37; O2SAT 97
[2024-08-13 06:42] LABS: Basophils Percent Auto 0.6 % (0-2); Eosinophils Absolute Auto 0.1 X10*3/uL (0.0-0.4); Eosinophils Percent Auto 2.9 % (0-4); Hematocrit 32.1 % (37.0-47.0); Hemoglobin 10.3 g/dl (12.0-16.0); Imm Gran Abs Auto 0.01 X10*3/uL (0.00-0.03); Imm Gran Pct Auto 0.3 % (0.0-0.4); Lymphocytes Absolute Auto 0.8 X10*3/uL (1.2-4.9); Mean Corpuscular HGB Conc 32.1 g/dl (31.0-35.0); Mean Corpuscular Hemoglobin 26.8 pg (27.0-33.0); Mean Corpuscular Volume 83.4 fL (80.0-98.0); Mean Platelet Volume 11.3 fL (9.4-12.3); Monocytes Absolute Auto 0.3 X10*3/uL (0.1-1.2); Monocytes Percent Auto 10.4 % (2-11); Neutrophils Absolute Auto 1.8 x10*3/uL (2.0-8.3); Neutrophils Percent Auto 59.8 % (45-73); Platelet Count 208 X10*3/uL (160-400); Red Blood Count 3.85 X10*6/uL (4.20-5.50); Red Cell Distribution Width 14.8 % (11.0-16.0); White Blood Count 3.1 X10*3/uL (4.8-10.8)
[2024-08-13 06:45] LABS: Alanine Aminotransferase 14 U/L (0-31); Albumin Level 3.6 g/dL (3.5-5.0); Alkaline Phosphatase 55 U/L (39-117); Anion Gap 10 (12-20); Aspartate Amino Transferase 26 U/L (5-31); Bilirubin Total 0.3 mg/dL (0.0-1.0); Blood Urea Nitrogen 11 mg/dL (9-16); Calcium 8.9 mg/dL (8.4-10.2); Carbon Dioxide 23 mmol/L (22-29); Chloride 111 mmol/L (96-108); Creatinine Clr Calc Pharmacy 75.5; Estimated Glomerular Filt Rate > 60; Glucose Random 85 mg/dL (60-115); Potassium 4.3 mmol/L (3.3-5.1); Sodium 140 mmol/L (135-145); Total Protein 6.6 g/dL (6.5-8.0)
[2024-08-13 08:26] VITALS: BP 120/61; PULSE 75; RESP 13; TEMP 36.7; O2SAT 96
--- NOTE | 2024-08-13 10:34 | MHC.CM.PN ---
EMR REVIEWED, PER HOSPITALIST PT MEDICALLY CLEARED AND WILL REMAIN IN ED BED 6 FOR CARE TEAM D/T SUICIDAL IDEATION, PER RECORDS PT LIVES W/DTR WHO IS PT'S CARE PROVIDER/CUSTOMER EXPERIENCE LEADER FOR YEARS, PT'S DTR MANAGES MEDS FOR PT, REFERRAL PLACED TO [facility] PT RECENTLY ACTIVE. PT WILL MEET W/PT.
[2024-08-13] MEDS: clonazePAM 1 MG TABLET PO (12:06)
[2024-08-13] MEDS: Nitrofurantoin Monohyd/M-Cryst 100 MG CAPSULE PO (12:06)
[2024-08-13] MEDS: Gabapentin 300 MG CAPSULE PO (12:06)
--- NOTE | 2024-08-13 13:17 | MHC.CARE ---
Patient evaluated by the CARE Team, determined to require inpatient psychiatric treatment. ED provider, Dr. Perez updated with plan
--- NOTE | 2024-08-13 13:28 | P.DS_ITS ---
DS: Providers Provider Date of Service: 08/13/24 Date of admission: 08/12/24 19:49 Date of discharge: 08/13/24 Primary care physician: Unknown Physician Consults: 08/12/24 16:03 ED CARE Team Crisis Consult Stat Comment: Reason for consultation: SI, overdose. 08/12/24 19:53 Consult to Psychiatry Routine Consulting Provider: [facility] Reason for consultation: suicide attempt with medications, hx of SI Has provider been notified: No 08/13/24 07:17 Inpt CARE Team Crisis Consult Routine Comment: Reason for consultation: SI, Medically clear DS: Diagnosis Discharge Diagnosis (1) Overdose by ingestion: Status: Acute (2) Suicidal ideation: Status: Acute (3) Dysuria: Status: Acute (4) Bipolar 1 disorder: Status: Acute (5) Chronic idiopathic constipation: Status: Acute (6) Vitamin D deficiency: Status: Acute (7) Acquired hypothyroidism: Status: Acute DS: Summary Hospital Course Hospital Course: History and physical as per admitting provider. Pt is a 59yo female Grenadian speaking with PMH migraine, Breast cancer s/p B mastectomy and implants in [place], scoliosis, lumbar spondylosis, Bipolar depression, SI in the past, hypothyroidism, VIT D deficiency, constipation, thrush, UTI Ecoli 07/20/24 presents to ED after ingesting unknown number of pills (trazadone, clonazepam are possible sources per pt's daughter) at approximately 230 PM. Pt was not wearing her glasses and is not sure how much of each medication she took but pt clearly states I want to . Pt also offers that she is considering throwing herself down the stairs or getting in the car and driving into a wall. Pt is currently on a Section 12 with a 1:[address] The ED did call poison control and we are admitting patient monitoring ECG every 2 Hours X2 then Q4 hours until the morning when pt would likely be medically cleared. Pt may be at risk for seizures as well if she took too much buproprion. Psychiatric consult ordered. Pt has been dealing with financial strain since her other daughter left. Pt is not able to afford the house without her daughter's financial support. Both the pt and daughter are on the mortgage. Pt's other daughter is very present and currently living with her mother and helping by paying rent but this is still not enough. Next mortgage payment is due in August and they do not have the funds. Daughter states there are no weapons in the home and pt does not use alcohol, marijuana or illicit drugs. Pt follows with [facility] for psychiatry and therapy. Pt was admitted to [facility] in May and was discharged and supposed to start new medications including a mood stabilizer but pt never received the new prescriptions (per Daughter's recollection). ECG notes Qtc 451 1800. Repeat ECG pending. VSS. Toxicology screen negative. ETOH and tylenol levels are not detected. Pt had recent UTI with ecoli and reports dysuria today. UA with trace LE only, no bacteria or WBCs. Urine culture requested. Pt also lives with chronic pain, has 2 breast implants that are causing pain in her back due to her scoliosis. Pt has seen 4 plastic surgeons here in the local area and no one is able to surgically remove implants and replace with smaller one. Pt had original surgery in [place]. Pt's chronic pain may be contributing to her overall depression and unstable mood. Recent Lumbar Xray on 08/07/24 notes Mild spondylosis lower lumbar spine. 59-year-old woman admitted after a suicide overdose attempt using prescription medication however she was vague and unclear about how much medication she actually took. She was under a section 12 due to making suicidal statements. Due to the potential overdose poison control was called who recommended serial EKGs. QTC is have remained stable, she was monitored on telemetry with no arrhythmia noted, no seizures during hospitalization, normal neuro checks. All of her routine meds has been on hold. Plan is to transfer patient to Geriatric Psychiatry for further treatment of depression. Patient complained of dysuria, UA positive with trace leukocyte however no indication for antibiotics at this time. Chronic idiopathic constipation. Continue bowel regimen Vitamin-D deficiency. May resume oral supplements. Asymptomatic subclinical hyperthyroidism. TSH 0.12, normal free T4. Stopped levothyroxine and recheck TSH in 1 week Time Attestation Discharge Coordination Time (in mins): 40 Quality: Safe Use of Opioids Does Pt have an Active Cancer Diagnosis on the Problem List?: No Quality: Stroke Does the patient have a stroke diagnosis?: No Physical Exam Vital Signs: Vital Signs: Last Vital Signs Temp 98.0 F 08/13/24 08:26 Pulse 75 08/13/24 08:26 Resp 13 08/13/24 08:26 BP 120/61 08/13/24 08:26 Pulse Ox 96 08/13/24 08:26 O2 Del Method Room Air 08/13/24 08:26 BMI result Body Mass Index 19.9 Appearing in no acute distress head is normocephalic atraumatic eyes pupils are PERRLA sclera is anicteric mouth throat mucous membranes are intact and moist neck is supple no lymphadenopathy, no JVD noted lung sounds are clear to auscultation heart regular rate rhythm, clear S1, S2 positive bowel sounds, abdomen is soft, nontender neuro patient is alert x3, no focal deficits DS: Data Data Completed and Pending Labs on day of discharge: Laboratory Results - last 24 hr 08/12/24 08/12/24 08/13/24 16:31 16:52 05:36 WBC 4.4 L 3.1 L RBC 3.82 L 3.85 L Hgb 10.1 L 10.3 L Hct 31.8 L 32.1 L MCV 83.2 83.4 MCH 26.4 L 26.8 L MCHC 31.8 32.1 RDW 14.7 14.8 Plt Count 212 208 MPV 10.0 11.3 Immature Gran % (Auto) 0.2 0.3 Neut % (Auto) 61.8 59.8 Lymph % (Auto) 25.1 26.0 Gooding % (Auto) 10.8 10.4 Eos % (Auto) 1.6 2.9 Baso % (Auto) 0.5 0.6 Lymph # (Auto) 1.1 L 0.8 L Gooding # (Auto) 0.5 0.3 Eos # (Auto) 0.1 0.1 Baso # (Auto) 0.0 0.0 Abs Immat Gran (auto) 0.01 0.01 Absolute Neuts (auto) 2.7 1.8 L Absolute Nucleated RBC 0.000 0.000 Nucleated RBC % (auto) 0.0 0.0 Sodium 145 140 Potassium 3.9 4.3 Chloride 110 H 111 H Carbon Dioxide 30 H 23 Anion Gap 9 L 10 L BUN 13 11 Creatinine 0.57 0.61 Estim Creat Clear Calc 80.8 75.5 Estimated GFR > 60 > 60 Random Glucose 79 85 Calcium 8.8 8.9 Magnesium 2.1 Total Bilirubin 0.2 0.3 AST 20 26 ALT 13 14 Alkaline Phosphatase 58 55 Total Protein 6.4 L 6.6 Albumin 3.6 3.6 TSH 0.12 L Free T4 1.19 Urine Color Yellow Urine Appearance Clear Urine pH 6.5 Ur Specific Goehner <= 1.005 Urine Protein Negative Urine Glucose (UA) Negative Urine Ketones Negative Urine Blood Negative Urine Nitrite Negative Ur Leukocyte Esterase Trace H Urine RBC 0-2 Urine WBC 0-5 Ur Squamous Epith Cells 0-2 Urine Bacteria None Seen Hyaline Casts 0-2 Salicylates < 5.0 L Urine Opiates Screen Not Detected Ur Buprenorphine Scrn Not Detected Ur Oxycodone Screen Not Detected Urine Methadone Screen Not Detected Urine Fentanyl Screen Not Detected Acetaminophen < 3 Ur Barbiturates Screen Not Detected Ur Phencyclidine Scrn Not Detected Ur Amphetamines Screen Not Detected U Benzodiazepines Scrn Not Detected Urine Cocaine Screen Not Detected U Marijuana (THC) Screen Not Detected Ethyl Alcohol < 10 COVID-19 (FRANK) Negative COVID-19 Clin Com See Note Preliminary micro results at discharge 08/12/24 Unknown Urine Culture - Preliminary Urine clean catch - Clean Catch Midstream Culture in progress. Discharge Plan Discharge Anticipated Discharge Date/Time: 08/13/24 13:21 Patient Disposition: Xfer Psychiatric Hosp Discharge Diagnosis: Suicide ideation Subclinical hypothyroidism Discharge Medications: Continued dexlansoprazole [Dexilant] 60 mg capsule,biphase delayed releas 60 mg PO DAILY PRN (Reason: Acid Reflux) 30 Days Qty: 30 0RF albuterol sulfate [Ventolin HFA] 90 mcg/actuation HFA aerosol inhaler 2 puff inhalation Q6H PRN (Reason: for wheezing) 30 Days Qty: 1 0RF Botox 200 unit recon soln 200 unit IM [id number] trazodone 50 mg Tablet 50 mg PO BEDTIME 30 Days Qty: 30 0RF prazosin 1 mg Capsule 1 mg PO BEDTIME 30 Days Qty: 30 0RF Protocol: Hold for SBP< HOLD for SBP < : 90 clonazepam 1 mg Tablet 1 mg PO TID 30 Days Qty: 90 0RF sumatriptan succinate 50 mg Tablet 50 mg PO DAILY PRN (Reason: Migraine Headache) 30 Days Qty: 30 0RF ibuprofen 400 mg Tablet 400 mg PO Q6H PRN (Reason: Pain, Moderate(Pain Scale 4-6)) 30 Days Qty: 60 0RF gabapentin 300 mg Capsule 300 mg PO TID 30 Days Qty: 90 0RF bupropion HCl 150 mg Tablet Extended Release 24 Hr 150 mg PO DAILY 30 Days Qty: 30 0RF famotidine 40 mg tablet 40 mg PO BID 30 Days Qty: 60 0RF oxybutynin chloride 10 mg tablet extended release 24hr 10 mg PO DAILY cimetidine 800 mg tablet 800 mg PO BID doxepin 10 mg capsule 10 mg PO BEDTIME diclofenac sodium 75 mg tablet,delayed release (DR/EC) 75 mg PO BID diclofenac sodium 1 % gel 1 ea topical BID cholecalciferol (vitamin D3) [Vitamin D3] 50 mcg (2,000 unit) capsule 50 mcg PO DAILY Discontinued nitrofurantoin monohyd/m-cryst [Macrobid] 100 mg capsule 100 mg PO Q12H 5 Days Qty: 10 0RF Rx Instructions: must administer with a meal/food levothyroxine [Synthroid] 50 mcg tablet 50 mcg PO DAILY Diet: Advance to usual diet Activity on Discharge: As tolerated Stand Alone Forms: Patient Portal Discharge page Print Language: Grenadian Other Ambulatory Orders: TSH reflex Free T4 (Routine) Timeframe: 1 Week Facility: [facility] - Location: Laboratory Ordered By: Sara [facility] Concerns: Suicidal ideation Subclinical hyperthyroidism Plan of Treatment: Levothyroxine stopped, chest TSH in 1 week Assessment: See discharge summary
--- NOTE | 2024-08-13 13:55 | MHC.CM.PN ---
EMR REVIEWED, PT W/SUICIDE ATTEMPT BY OD ON PRESCRIPTION PILLS, CM MET W/PT VIA COMMERCIAL INTELLIGENCE MANAGER, PT LIVES W/2 DTRS, USES A CANE FOR DME AND RECENTLY HAD [facility] FOR HOME OT HOWEVER REQUESTED IT END D/T NOT BEING COMFORTABLE ON STAIRS W/OUT HER DTRS HOME D/T DIZZINESS/VERTIGO. 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 PT'S GOAL FRO DC IS PSYCH IPLOC AND PT REPORTS CARE TEAM TOLD HER SHE WOULD GO LATER TODAY. PT VERIFIES PCP IS BETHANY BORREGO AND HAS BEEN EDUCATED AND DECLINES TO COMPLETE A HCP AT THIS TIME.
[2024-08-13 15:46] VITALS: BP 122/63; PULSE 81; RESP 24; TEMP 36.6; O2SAT 97
[2024-08-17 15:03] LABS: Vitamin D 25-OH, D2 <4 ng/mL; Vitamin D 25-OH, D3 29 ng/mL; Vitamin D 25-OH, Total 29 ng/mL (30-100)
== END 2024-08-13 16:30 | DRG 817 ==
LOC: HO.ED 19:04 → HO.EDOVER 20:11 → HO.IMC 08-13 07:44 → HO.EDOVER 08-13 08:22
PROVIDERS: Physician Assistant Medical; Admitting Provider Nurse Practitioner Family; Emergency Provider Emergency Medicine; PCP Internal Medicine; Visit Provider Nurse Practitioner Acute Care
DX: T50.912A Poisoning by multiple unspecified drugs, medicaments and biological substances, intentional self-harm, initial encounter (principal); E03.8 Other specified hypothyroidism; E55.9 Vitamin D deficiency, unspecified; G89.29 Other chronic pain; K59.04 Chronic idiopathic constipation; M43.06 Spondylolysis, lumbar region; Z20.822 Contact with and (suspected) exposure to COVID-19; Z90.13 Acquired absence of bilateral breasts and nipples; F31.9 Bipolar disorder, unspecified; Z59.86 Financial insecurity; Z98.82 Breast implant status; Z79.890 Hormone replacement therapy; Z79.899 Other long term (current) drug therapy
CPT/HCPCS: 36415; 80053; 80143; 80179; 80307; 81001; 82306; 83735; 84439; 84443; 85025; 87086; 87635; 93005; 99285; J1650; S9485

== ENCOUNTER → 2024-08-12 16:03 | Outpatient (BNV) | payer OTHER, SELFPAY | PROVIDERS: Admitting Provider Nurse Practitioner Family; Emergency Provider Emergency Medicine; Visit Provider Internal Medicine Cardiovascular Disease | DX: T65.91XA Toxic effect of unspecified substance, accidental (unintentional), initial encounter (principal); R94.31 Abnormal electrocardiogram [ECG] [EKG]; T50.901A Poisoning by unspecified drugs, medicaments and biological substances, accidental (unintentional), initial encounter; I49.9 Cardiac arrhythmia, unspecified; Z13.6 Encounter for screening for cardiovascular disorders | CPT/HCPCS: 93010 ==

== ENCOUNTER 2024-08-12 19:49 | Outpatient (BNV) | payer OTHER, SELFPAY | END 2024-08-13 03:00 | PROVIDERS: Admitting Provider Nurse Practitioner Family; Emergency Provider Emergency Medicine; Visit Provider Internal Medicine Cardiovascular Disease | DX: T50.901A Poisoning by unspecified drugs, medicaments and biological substances, accidental (unintentional), initial encounter (principal) | CPT/HCPCS: 93010 ==

== ENCOUNTER → 2024-08-12 19:49 | Outpatient (BNV) | payer OTHER, SELFPAY | PROVIDERS: Admitting Provider Nurse Practitioner Family; Emergency Provider Emergency Medicine; Visit Provider Nurse Practitioner Family | DX: T50.901A Poisoning by unspecified drugs, medicaments and biological substances, accidental (unintentional), initial encounter (principal); R45.851 Suicidal ideations; R30.0 Dysuria; F31.9 Bipolar disorder, unspecified; K59.04 Chronic idiopathic constipation; E55.9 Vitamin D deficiency, unspecified; E03.9 Hypothyroidism, unspecified | CPT/HCPCS: 99223; 99239 ==

== ENCOUNTER 2024-08-13 15:45 | Inpatient (IN) | payer OTHER, SELFPAY ==
[2024-08-13 16:30] VITALS: BP 119/53; PULSE 83; RESP 18; TEMP 36.3; O2SAT 98; BMI 21.1
--- OUTSIDE RECORDS SUMMARY | 2024-08-13 19:07 | XMS_ITS | Clinical Summary ---
Author Organization [employer] Address [address] [place] [address] [address] [place] [address] Care Team Providers Care Electric Repair Supervisor Name Role Phone Unavailable Primary Care Provider [...]
--- OUTSIDE RECORDS SUMMARY | 2024-08-13 19:07 | XMS_ITS | Clinical Summary ---
Author Organization [facility] Address [address] [place] [address] Care Team Providers Care Source Inspector Name Role Phone Chuck Davila MD Primary Care Provider [phone] Allergies Active Allergy Reactions Criticality Noted Date [...] age to complete this topic Care Teams Source Inspector Relationship Specialty Start Date End Date Chuck Davila MD [address] [place] [address] [place] [id number] PCP - General Internal Medicine 04/07/23
--- OUTSIDE RECORDS SUMMARY | 2024-08-13 19:07 | XMS_ITS | Clinical Summary ---
Author Organization [facility] Address [address] [place] [address] Care Team Providers Care Drapery Inspector Name Role Phone Chuck Davila MD Primary Care Provider Surgical History Surgery Date Site/Laterality Comments SECTION PROCEDURE: SECTION TUBAL LIGATION PROCEDURE:TUBAL LIGATION MASTECTOMY PROCEDURE:MASTECTOMY COLONOSCOPY PROCEDURE:COLONOSCOPY HYSTERECTOMY PROCEDURE:HYSTERECTOMY Medical History Medical History Date Comments Breast cancer (CMS/HCC V24, CMS/FORMERLY [facility] V28) DX:Breast cancer (HCC) Disease of thyroid [...] age to complete this topic Care Teams Drapery Inspector Relationship Specialty Start Date End Date Chuck Davila MD [address] [place] [address] [address] ANJU Huerta PCP - General 04/07/23
--- OUTSIDE RECORDS SUMMARY | 2024-08-13 19:07 | XMS_ITS | Encounter Summary ---
Author Organization [employer] Address [address] [place] [address] Care Team Providers Care School Health Aide Name Role Phone Unavailable Primary Care Provider Unavailabl e Encounter Details Date Type Department Care Team (Latest Contact Info) Description 07/09/2018 Abstract [facility] Dental, Provider, DDS Social History Tobacco [...]
[2024-08-13 19:22] LABS: Alanine Aminotransferase 15 U/L (0-31); Albumin Level 3.9 g/dL (3.5-5.0); Alkaline Phosphatase 60 U/L (39-117); Anion Gap 13 (12-20); Aspartate Amino Transferase 23 U/L (5-31); Bilirubin Total 0.2 mg/dL (0.0-1.0); Blood Urea Nitrogen 11 mg/dL (9-16); Calcium 9.1 mg/dL (8.4-10.2); Carbon Dioxide 24 mmol/L (22-29); Chloride 109 mmol/L (96-108); Estimated Glomerular Filt Rate > 60; Glucose Random 113 mg/dL (60-115); Potassium 4.3 mmol/L (3.3-5.1); Sodium 142 mmol/L (135-145); Total Protein 6.9 g/dL (6.5-8.0)
--- NOTE | 2024-08-13 19:55 | PC.ADMIT ---
Patient arrived to the unit at 16:30 from [facility]. Per N to N done by Rich TELLES the reason for her admission was stress. Pt has Hx of cognitive impairment, HTN, Hyperlipidemia, worsening confusion. Family stated pt had worsening episodes of confusion and agitation. Pt was not listed in the computer/Jennifer until about 18:30. Upon admission pt was alert and oriented to self, place, date. Pt has IV line in left hand. Skin check completed and intact. VS: 97.4, p 83, BP 119/53, Otsat 98% on RA. WT 115.2 lbs. Patient signed CV with Chelsey PAEZ. Iris signed all consents, oriented to the unit, provided toiletries and completed menu for tomorrow.
[2024-08-13 20:00] VITALS: BP 112/62; PULSE 76; RESP 16; TEMP 36.8; O2SAT 99
[2024-08-13] MEDS: Acetaminophen 325 MG TABLET 650 MG PO (20:19)
[2024-08-13] MEDS: hydrOXYzine HCL 25 MG TABLET PO (20:19)
[2024-08-13] MEDS: Gabapentin 300 MG CAPSULE PO (22:35)
[2024-08-13] MEDS: Famotidine 20 MG TABLET 40 MG PO (22:35)
[2024-08-13] MEDS: bisacodyL 5 MG TABLET.DR 10 MG PO (22:35)
[2024-08-13] MEDS: Diclofenac Sodium Delayed Rel 75 MG TABLET.DR PO (22:36)
[2024-08-14] MEDS: Omeprazole 40 MG CAPSULE.DR PO (05:56)
[2024-08-14] MEDS: Diclofenac Sodium Delayed Rel 75 MG TABLET.DR PO ×2 (08:13→20:32)
[2024-08-14] MEDS: oxyBUTYnin chloride ER 5 MG TAB.ER.24 10 MG PO (08:14)
[2024-08-14] MEDS: buPROPion HCl XL 150 MG TAB.ER.24H PO (08:14)
[2024-08-14] MEDS: Gabapentin 300 MG CAPSULE PO ×3 (08:15→20:32)
[2024-08-14] MEDS: Ferrous Sulfate 324 MG TABLET.DR PO (08:16)
[2024-08-14] MEDS: Sertraline HCL 50 MG TABLET PO (08:16)
[2024-08-14] MEDS: clonazePAM 1 MG TABLET PO ×3 (08:26→20:32)
[2024-08-14 08:29] VITALS: BP 110/65; PULSE 81; RESP 16; TEMP 36.3; O2SAT 97
[2024-08-14 09:24] LABS: Cholesterol 193 mg/dL (<200); HDL Cholesterol 75 mg/dL (>40); LDL Cholesterol Calculated 106 mg/dL (<100); Triglycerides 62 mg/dL (<150)
[2024-08-14 09:36] LABS: Estimated Average Glucose 103 mg/dL; Hemoglobin A1C 109.4077 umol/L; Hemoglobin A1c % 5.2 % (<6.0); Total Hemoglobin (HGBA1C) 3242.5392 umol/L
[2024-08-14 09:47] LABS: Thyroid Stimulating Hormone 0.28 uIU/mL (0.32-4.0)
[2024-08-14 09:52] LABS: Vitamin B12 593 pg/mL (200-900)
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
[2024-08-14] MEDS: Loperamide HCl 2 MG CAPSULE PO (14:16)
[2024-08-14 20:00] VITALS: BP 107/53; PULSE 72; RESP 16; TEMP 36; O2SAT 98
[2024-08-14] MEDS: bisacodyL 5 MG TABLET.DR 10 MG PO (20:33)
[2024-08-14] MEDS: traZODone HCL 50 MG TABLET PO (20:36)
[2024-08-15] MEDS: Omeprazole 40 MG CAPSULE.DR PO (05:48)
[2024-08-15] MEDS: clonazePAM 1 MG TABLET PO ×3 (09:10→22:13)
[2024-08-15] MEDS: oxyBUTYnin chloride ER 5 MG TAB.ER.24 10 MG PO (09:10)
[2024-08-15] MEDS: Gabapentin 300 MG CAPSULE PO ×3 (09:10→22:13)
[2024-08-15] MEDS: buPROPion HCl XL 150 MG TAB.ER.24H PO (09:10)
[2024-08-15] MEDS: Ferrous Sulfate 324 MG TABLET.DR PO (09:10)
[2024-08-15] MEDS: Diclofenac Sodium Delayed Rel 75 MG TABLET.DR PO ×2 (09:11→22:12)
[2024-08-15 09:14] VITALS: BMI 20.7
[2024-08-15 09:15] VITALS: BP 152/80; PULSE 86; RESP 18; TEMP 36.4; O2SAT 94
[2024-08-15] MEDS: Magnesium Hydrox/Alum Hydrox 30 ML ORAL.SUSP PO (12:12)
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
[2024-08-15 20:00] VITALS: BP 99/58; PULSE 63; RESP 17; TEMP 36.3; O2SAT 99
[2024-08-15] MEDS: bisacodyL 5 MG TABLET.DR 10 MG PO (22:11)
[2024-08-15] MEDS: traZODone HCL 50 MG TABLET PO (22:11)
[2024-08-15] MEDS: lamoTRIgine 25 MG TABLET PO (22:13)
[2024-08-16 10:05] VITALS: BP 116/56; PULSE 75; RESP 18; TEMP 36.6; O2SAT 99
[2024-08-16] MEDS: Magnesium Hydrox/Alum Hydrox 30 ML ORAL.SUSP PO ×2 (10:09→20:24)
[2024-08-16] MEDS: Diclofenac Sodium Delayed Rel 75 MG TABLET.DR PO ×2 (10:09→20:19)
[2024-08-16] MEDS: Ferrous Sulfate 324 MG TABLET.DR PO (10:10)
[2024-08-16] MEDS: oxyBUTYnin chloride ER 5 MG TAB.ER.24 10 MG PO (10:10)
[2024-08-16] MEDS: Gabapentin 300 MG CAPSULE PO ×3 (10:10→20:19)
[2024-08-16] MEDS: buPROPion HCl XL 150 MG TAB.ER.24H PO (10:10)
[2024-08-16] MEDS: clonazePAM 1 MG TABLET PO ×3 (10:10→20:19)
[2024-08-16] MEDS: hydrOXYzine HCL 25 MG TABLET PO (14:59)
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
[2024-08-16 20:00] VITALS: BP 101/54; PULSE 67; RESP 18; TEMP 36.7; O2SAT 99
[2024-08-16] MEDS: bisacodyL 5 MG TABLET.DR 10 MG PO (20:19)
[2024-08-16] MEDS: lamoTRIgine 25 MG TABLET PO (20:19)
[2024-08-16] MEDS: traZODone HCL 50 MG TABLET PO (20:19)
[2024-08-17] MEDS: Ondansetron ODT 8 MG TAB.RAPDIS TRANSLINGU (03:51)
[2024-08-17 07:43] VITALS: BP 115/57; PULSE 77; RESP 18; TEMP 36.6; O2SAT 98
[2024-08-17] MEDS: hydrOXYzine HCL 25 MG TABLET PO (08:08)
[2024-08-17] MEDS: clonazePAM 1 MG TABLET PO ×3 (08:08→20:47)
[2024-08-17] MEDS: oxyBUTYnin chloride ER 5 MG TAB.ER.24 10 MG PO (08:08)
[2024-08-17] MEDS: buPROPion HCl XL 150 MG TAB.ER.24H PO (08:08)
[2024-08-17] MEDS: Gabapentin 300 MG CAPSULE PO ×3 (08:09→20:45)
[2024-08-17] MEDS: Ferrous Sulfate 324 MG TABLET.DR PO (08:09)
[2024-08-17] MEDS: Diclofenac Sodium Delayed Rel 75 MG TABLET.DR PO ×2 (08:09→20:46)
--- NOTE | 2024-08-17 10:33 | PC.NURSE ---
Iris c/o 9/10 back pain. Has Tylenol allergy. Notified provider Chelsey Fitzpatrick asking for pain medication and awaiting response.
[2024-08-17] MEDS: Lidocaine 4 % Patch ADH..PATCH 1 PATCH TRANSDERMA (16:10)
[2024-08-17] MEDS: traMADoL HCL 50 MG TABLET PO ×2 (16:10→20:45)
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
[2024-08-17 20:00] VITALS: BP 95/49; PULSE 70; RESP 16; TEMP 36.1; O2SAT 97
[2024-08-17] MEDS: bisacodyL 5 MG TABLET.DR 10 MG PO (20:44)
[2024-08-17] MEDS: lamoTRIgine 25 MG TABLET PO (20:45)
[2024-08-17] MEDS: traZODone HCL 50 MG TABLET PO (20:47)
[2024-08-18] MEDS: SYNTHROID 50 MCG 50 EACH PO (05:44)
[2024-08-18] MEDS: Magnesium Hydrox/Alum Hydrox 30 ML ORAL.SUSP PO (05:48)
[2024-08-18 08:20] VITALS: BP 100/55; PULSE 77; RESP 15; TEMP 37; O2SAT 99
[2024-08-18] MEDS: Diclofenac Sodium Delayed Rel 75 MG TABLET.DR PO ×2 (08:23→20:27)
[2024-08-18] MEDS: clonazePAM 1 MG TABLET PO ×3 (08:23→20:27)
[2024-08-18] MEDS: Ferrous Sulfate 324 MG TABLET.DR PO (08:23)
[2024-08-18] MEDS: oxyBUTYnin chloride ER 5 MG TAB.ER.24 10 MG PO (08:23)
[2024-08-18] MEDS: Gabapentin 300 MG CAPSULE PO ×3 (08:23→20:27)
[2024-08-18] MEDS: buPROPion HCl XL 150 MG TAB.ER.24H PO (08:23)
[2024-08-18 20:00] VITALS: BP 113/56; PULSE 69; RESP 18; TEMP 36.1; O2SAT 98
[2024-08-18] MEDS: bisacodyL 5 MG TABLET.DR 10 MG PO (20:27)
[2024-08-18] MEDS: lamoTRIgine 25 MG TABLET PO (20:28)
[2024-08-18] MEDS: traZODone HCL 50 MG TABLET PO (20:51)
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
[2024-08-19] MEDS: SYNTHROID 50 MCG 50 EACH PO (05:27)
[2024-08-19] MEDS: Magnesium Hydrox/Alum Hydrox 30 ML ORAL.SUSP PO (05:39)
[2024-08-19 08:00] VITALS: BP 108/58; PULSE 76; RESP 18; TEMP 36.5; O2SAT 99
[2024-08-19] MEDS: buPROPion HCl XL 150 MG TAB.ER.24H PO (08:46)
[2024-08-19] MEDS: Gabapentin 300 MG CAPSULE PO ×3 (08:46→20:32)
[2024-08-19] MEDS: Ferrous Sulfate 324 MG TABLET.DR PO (08:47)
[2024-08-19] MEDS: oxyBUTYnin chloride ER 5 MG TAB.ER.24 10 MG PO (08:47)
[2024-08-19] MEDS: clonazePAM 1 MG TABLET PO ×3 (08:47→20:31)
[2024-08-19] MEDS: Diclofenac Sodium Delayed Rel 75 MG TABLET.DR PO ×2 (08:48→20:32)
[2024-08-19] MEDS: Lidocaine 4 % Patch ADH..PATCH 1 PATCH TRANSDERMA (08:51)
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
[2024-08-19 20:00] VITALS: BP 97/56; PULSE 74; RESP 16; TEMP 36.6; O2SAT 98
[2024-08-19] MEDS: lamoTRIgine 25 MG TABLET PO (20:32)
[2024-08-19] MEDS: bisacodyL 5 MG TABLET.DR 10 MG PO (20:32)
[2024-08-19] MEDS: traZODone HCL 50 MG TABLET PO (20:37)
[2024-08-20] MEDS: SYNTHROID 50 MCG 50 EACH PO (05:37)
[2024-08-20 08:00] VITALS: BP 118/65; PULSE 81; RESP 15; TEMP 36.6; O2SAT 99
[2024-08-20] MEDS: Lidocaine 4 % Patch ADH..PATCH 1 PATCH TRANSDERMA (09:01)
[2024-08-20] MEDS: oxyBUTYnin chloride ER 5 MG TAB.ER.24 10 MG PO (09:01)
[2024-08-20] MEDS: Diclofenac Sodium Delayed Rel 75 MG TABLET.DR PO (09:02)
[2024-08-20] MEDS: buPROPion HCl XL 150 MG TAB.ER.24H PO (09:02)
[2024-08-20] MEDS: Ferrous Sulfate 324 MG TABLET.DR PO (09:02)
[2024-08-20] MEDS: clonazePAM 1 MG TABLET PO ×2 (09:02→15:03)
[2024-08-20] MEDS: Gabapentin 300 MG CAPSULE PO ×2 (09:02→15:03)
[2024-08-20] MEDS: Magnesium Hydrox/Alum Hydrox 30 ML ORAL.SUSP PO (09:05)
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
== END 2024-08-20 15:15 | disposition home or self-care (01) | DRG 753 ==
PROVIDERS: Admitting Provider Social Worker; Visit Provider Social Worker
DX: F31.81 Bipolar II disorder (principal); E03.9 Hypothyroidism, unspecified; Z91.51 Personal history of suicidal behavior; Z85.3 Personal history of malignant neoplasm of breast; Z79.890 Hormone replacement therapy; Z79.899 Other long term (current) drug therapy
CPT/HCPCS: 36415; 80053; 80061; 82607; 83036; 84443

== ENCOUNTER → 2024-08-13 15:45 | Outpatient (BNV) | payer OTHER, SELFPAY | PROVIDERS: Admitting Provider Social Worker; Visit Provider Social Worker | DX: F31.81 Bipolar II disorder (principal) | CPT/HCPCS: 99231; 99232; 99238 ==

== ENCOUNTER 2024-08-23 13:44 | Outpatient (REF) | payer OTHER, SELFPAY ==
--- NOTE | ~2024-08-23 | MM_ITS ---
EXAMINATION: DXA BONE DENSITY AXIAL HISTORY: Z78.0 - Asymptomatic menopausal state TECHNIQUE: Erly Dual energy absorptiometry (DEXA) of the lumbar spine, total left hip, and femoral neck was performed. COMPARISON: Comparison is made with the prior examination dated 08/13/2021. FINDINGS: The bone mineral density of the lumbar spine is 1.054 with a T-score of -1.0, and a Z-score of 0.7. This is indicative of normal bone mineral density. This represents a BMD change of -1.9% compared to the prior exam. This is not statistically significant. The bone mineral density of the left total hip is 0.951 with a T-score of -0.5, and a Z-score of 0.8. This is indicative of normal bone mineral density. This represents a BMD change of -3.3% compared to the prior exam. This is not statistically significant. The bone mineral density of the left femoral neck is 0.871 with a T-score of -1.2, and a Z-score of 0.4. This is indicative of osteopenia. This represents a BMD change of -4.6% compared to the prior exam. FRACTURE RISK: The FRAX index suggests a ten year probability of major osteoporotic fracture of 8.6%, and of hip fracture 0.7%. MM/XR DEXA axial skeleton IMPRESSION: Based on bone mineral density, and according to World Health Organization (WHO) criteria, the diagnosis is consistent with osteopenia. All bone density values are in grams per centimeter squared (g/cm2). Statistically, 68% of repeat scans fall within 1 SD (+/- 0.010 g/cm2 for AP spine L1-L4) and 1 SD (+/- 0.012 g/cm2 for femur total) FRAX is a trademark of the [employer] [place] for Metabolic Bone Disease, a World Health Organization (WHO) Collaborating Center. Electronically signed by: Som Guerrero MD 08/23/2024 02:47 PM EDT
--- OUTSIDE RECORDS SUMMARY | 2024-08-23 14:27 | XMS_ITS | Clinical Summary ---
Author Organization [employer] Address [address] [place] [address] [address] [place] [address] Care Team Providers Care Enginehouse Brakeman Name Role Phone Unavailable Primary Care Provider [...]
--- OUTSIDE RECORDS SUMMARY | 2024-08-23 14:27 | XMS_ITS | Clinical Summary ---
Author Organization Unknown Care Team Providers Care Flight Data Technician Name Role Phone FELIPE GAMBOA, BETHANY Unavailable Unavailable ROLAN OLIVA, ANIA Unavailable Unavailable JOSE MIGUEL PASTOR, DANTE Unavailable Unavailable Payers Payer Name Policy Type Policy Number Effective Date Expira tion Date [facility] ([facility] [id number] MEDICAID [facility] [id number] Problems Condition Name Condition Details Condition Category Status Onset Date Resolution Date Last Treatment Date Treating Clinician Comments BIPOLAR DISORDER, UNSPECIFIED Active 08-12 00:00: 00 Allergies, Adverse Reactions, Alerts Allergy Name Allergy Type Status Severity Reaction(s) Onset Date Inactive Date Treating Clinician Comments ESTERIFIED ESTROGENS Propensity to adverse reactions Active 08-21 17:48: 59 HYDROXYCHLOR OQUINE Propensity to adverse reactions Active 08-21 17:48: 28 MORPHINE Propensity to adverse reactions Active 08-21 17:48: 37 SULFA (SULFONAMIDE ANTIBIOTICS) Propensity to adverse reactions Active 08-21 17:48: 03 LEVOTHYROXIN E Propensity to adverse reactions Active 08-21 17:49: 13 PREDNISONE Propensity to adverse reactions Active 08-21 17:49: 34 CORTICOSTERO IDS Propensity to adverse reactions Active 08-21 17:49: 52 LEXAPRO Propensity to adverse reactions Active 08-21 17:50: 01 TADALAFIL Propensity to adverse reactions Active 08-21 17:50: 12 MELOXICAM Propensity to adverse reactions Active 08-21 17:50: 22 ACETAMINOPHE N Propensity to adverse reactions Active 08-21 17:50: 54 PERCACET Propensity to adverse reactions Active 08-21 17:51: 07 DULOXETINE Propensity to adverse reactions Active 08-21 17:51: 19 FLUCONAZOLE Propensity to adverse reactions Active 08-21 17:51: 29 Medications Ordered Medication Name Filled Medication Name Start Date Stop Date Current Medication? Ordering Clinician Indication Dosage Frequency Signature (SIG) Comments Components albuterol sulfate HFA 90 mcg/actuati on aerosol inhaler 2-08 00:00: 00 08-13 23:59 :00 No [id number] 2 puff EVERY 6 HOURS 2 puff EVERY 6 HOURS (route: inhalation ) Med Classific ation: Respirato ry Therapy Agents bisacodyl 5 mg tablet,cecile yed release 2-08 00:00: 00 08-13 23:59 :00 No [id number] 1 tablet EVERY AM 1 tablet EVERY AM (route: oral) Med Classific ation: Gastroint estinal Therapy Agents bupropion HCl SR 150 mg tablet,12 hr sustained-r elease 2-08 00:00: 00 08-13 23:59 :00 No [id number] 1 tablet EVERY AM 1 tablet EVERY AM (route: oral) Med Classific ation: Central Nervous System Agents cholecalcif danelle (vitamin D3) 25 mcg (1,000 unit) tablet 2 00:00: 00 08-13 23:59 :00 No [id number] 1 tablet EVERY AM 1 tablet EVERY AM (route: oral) Med Classific ation: Electroly te Balance-N utritiona l Products clonazepam 1 mg tablet 208 00:00: 00 08-13 23:59 :00 No [id number] 1 tablet 3 TIMES DAILY 1 tablet 3 TIMES DAILY (route: oral) Med Classific ation: Central Nervous System Agents Dexilant 60 mg capsule, delayed release 2-08 00:00: 00 08-13 23:59 :00 No [id number] 1 capsule EVERY AM 1 capsule EVERY AM (route: oral) Med Classific ation: Gastroint estinal Therapy Agents famotidine 40 mg tablet 2-08 00:00: 00 08-13 23:59 :00 No [id number] 1 tablet 2 TIMES DAILY 1 tablet 2 TIMES DAILY (route: oral) Med Classific ation: Gastroint estinal Therapy Agents gabapentin 300 mg capsule 2-08 00:00: 00 08-13 23:59 :00 No [id number] 1 capsule 3 TIMES DAILY 1 capsule 3 TIMES DAILY (route: oral) Med Classific ation: Central Nervous System Agents hydroxyzine HCl 25 mg tablet 2-08 00:00: 00 08-13 23:59 :00 No [id number] 1 tablet EVERY 6 HOURS 1 tablet EVERY 6 HOURS (route: oral) Med Classific ation: Central Nervous System Agents ibuprofen 400 mg tablet 2-08 00:00: 00 08-13 23:59 :00 No [id number] 1 tablet EVERY 6 HOURS 1 tablet EVERY 6 HOURS (route: oral) Med Classific ation: Analgesic , Anti-infl ammatory or Antipyret ic lamotrigine 100 mg tablet 2-08 00:00: 00 08-13 23:59 :00 No [id number] 1 tablet 2 TIMES DAILY 1 tablet 2 TIMES DAILY (route: oral) Med Classific ation: Central Nervous System Agents Lidocare 4 % topical patch 2-08 00:00: 00 08-13 23:59 :00 No [id number] 1 adhesiv e patch, medicat ed 2 TIMES DAILY 1 adhesive patch, medicated 2 TIMES DAILY (route: topical) Med Classific ation: Dermatolo gical Miebo (PF) 100 % eye drops 2-08 00:00: 00 08-13 23:59 :00 No [id number] 1 drops 3 TIMES DAILY 1 drops 3 TIMES DAILY (route: ophthalmic (eye)) Med Classific ation: Ophthalmi c Agents olanzapine 10 mg tablet 2-08 00:00: 00 08-13 23:59 :00 No [id number] 1 tablet BEDTIME 1 tablet BEDTIME (route: oral) Med Classific ation: Central Nervous System Agents ondansetron 8 mg disintegrat ing tablet 2-08 00:00: 00 08-13 23:59 :00 No [id number] 1 tablet EVERY OTHER DAY 1 tablet EVERY OTHER DAY (route: oral) Med Classific ation: Gastroint estinal Therapy Agents oxybutynin chloride 5 mg tablet 2-08 00:00: 00 08-13 23:59 :00 No [id number] 1 tablet EVERY AM 1 tablet EVERY AM (route: oral) Med Classific ation: Genitouri nary Therapy prazosin 1 mg capsule 2-08 00:00: 00 08-13 23:59 :00 No [id number] 1 capsule BEDTIME 1 capsule BEDTIME (route: oral) Med Classific ation: Cardiovas cular Therapy Agents Restasis 0.05 % eye drops in a dropperette 2-08 00:00: 00 08-13 23:59 :00 No [id number] 1 dropper ette 2 TIMES DAILY 1 dropperett e 2 TIMES DAILY (route: ophthalmic (eye)) Med Classific ation: Ophthalmi c Agents simethicone 80 mg chewable tablet 2-08 00:00: 00 08-13 23:59 :00 No [id number] 1 tablet 4 TIMES DAILY 1 tablet 4 TIMES DAILY (route: oral) Med Classific ation: Gastroint estinal Therapy Agents sumatriptan 50 mg tablet 2-08 00:00: 00 08-13 23:59 :00 No [id number] 1 tablet BEDTIME 1 tablet BEDTIME (route: oral) Med Classific ation: Central Nervous System Agents Synthroid 50 mcg tablet 2-08 00:00: 00 08-13 23:59 :00 No [id number] 1 tablet EVERY AM 1 tablet EVERY AM (route: oral) Med Classific ation: Endocrine trazodone 50 mg tablet 2-08 00:00: 00 08-13 23:59 :00 No [id number] 1 tablet BEDTIME 1 tablet BEDTIME (route: oral) Med Classific ation: Central Nervous System Agents Xiidra 5 % eye drops in a dropperette 2-08 00:00: 00 08-13 23:59 :00 No [id number] 1 dropper ette, single- use drop dispens er 2 TIMES DAILY 1 dropperett e, single-use drop dispenser 2 TIMES DAILY (route: ophthalmic (eye)) Med Classific ation: Ophthalmi c Agents amitriptyli ne 50 mg tablet 08-21 00:00: 00 Yes [id number] 1 tablet DAILY 1 tablet DAILY (route: oral) Med Classific ation: Central Nervous System Agents bisacodyl 5 mg tablet,cecile yed release 08-21 00:00: 00 Yes [id number] 1 tablet 2 TIMES DAILY 1 tablet 2 TIMES DAILY (route: oral) Med Classific ation: Gastroint estinal Therapy Agents bupropion HCl XL 150 mg 24 hr tablet, extended release 08-21 00:00: 00 Yes [id number] 1 tablet EVERY AM 1 tablet EVERY AM (route: oral) Med Classific ation: Central Nervous System Agents cimetidine 800 mg tablet 08-21 00:00: 00 Yes [id number] 1 tablet 2 TIMES DAILY 1 tablet 2 TIMES DAILY (route: oral) Med Classific ation: Gastroint estinal Therapy Agents clonazepam 1 mg tablet 08-21 00:00: 00 Yes [id number] 1 tablet 3 TIMES DAILY 1 tablet 3 TIMES DAILY (route: oral) Med Classific ation: Central Nervous System Agents Dexilant 60 mg capsule, delayed release 08-21 00:00: 00 Yes [id number] 1 capsule EVERY AM 1 capsule EVERY AM (route: oral) Med Classific ation: Gastroint estinal Therapy Agents diclofenac sodium 75 mg tablet,cecile yed release 08-21 00:00: 00 Yes [id number] 1 tablet 2 TIMES DAILY 1 tablet 2 TIMES DAILY (route: oral) Med Classific ation: Analgesic , Anti-infl ammatory or Antipyret ic doxepin 10 mg capsule 08-21 00:00: 00 Yes [id number] 1 capsule BEDTIME 1 capsule BEDTIME (route: oral) Med Classific ation: Central Nervous System Agents famotidine 40 mg tablet 08-21 00:00: 00 Yes [id number] 1 tablet 2 TIMES DAILY 1 tablet 2 TIMES DAILY (route: oral) Med Classific ation: Gastroint estinal Therapy Agents ferrous sulfate 325 mg (65 mg iron) tablet 08-21 00:00: 00 Yes [id number] 1 tablet DAILY 1 tablet DAILY (route: oral) Med Classific ation: Electroly te Balance-N utritiona l Products gabapentin 300 mg capsule 08-21 00:00: 00 Yes [id number] 1 capsule 3 TIMES DAILY 1 capsule 3 TIMES DAILY (route: oral) Med Classific ation: Central Nervous System Agents levothyroxi ne 50 mcg tablet 08-21 00:00: 00 Yes [id number] 1 tablet EVERY AM 1 tablet EVERY AM (route: oral) Med Classific ation: Endocrine ondansetron 8 mg disintegrat ing tablet 08-21 00:00: 00 Yes [id number] 1 tablet BEDTIME 1 tablet BEDTIME (route: oral) Med Classific ation: Gastroint estinal Therapy Agents oxybutynin chloride ER 10 mg tablet,exte nded release 24 hr 08-21 00:00: 00 Yes [id number] 1 tablet EVERY AM 1 tablet EVERY AM (route: oral) Med Classific ation: Genitouri nary Therapy phenazopyri dine 200 mg tablet 08-21 00:00: 00 Yes [id number] 1 tablet 3 TIMES DAILY 1 tablet 3 TIMES DAILY (route: oral) Med Classific ation: Genitouri nary Therapy sertraline 50 mg tablet 08-21 00:00: 00 Yes [id number] 1 tablet EVERY AM 1 tablet EVERY AM (route: oral) Med Classific ation: Central Nervous System Agents sumatriptan 50 mg tablet 08-21 00:00: 00 Yes [id number] 1 tablet DAILY 1 tablet DAILY (route: oral) Med Classific ation: Central Nervous System Agents trazodone 50 mg tablet 08-21 00:00: 00 Yes [id number] 1 tablet BEDTIME 1 tablet BEDTIME (route: oral) Med Classific ation: Central Nervous System Agents ACETAMINOPH EN ORAL 11-16 00:00: 00 12-16 [...] ANTI-INFL AMMATORY OR ANTIPYRET IC MECLIZINE ORAL 0 3-15 00:00: 00 08-12 00:00 :00 No [...] ANTI-INFL AMMATORY OR ANTIPYRET IC IBUPROFEN ORAL 10-29 00:00: 00 11-03 00:00 :00 No 800 mg 800 mg (route: ) Med Classific ation: ANALGESIC , ANTI-INFL AMMATORY OR ANTIPYRET IC CHLORHEXIDI NE GLUCONATE MOUTH AND THROAT 11-26 00:00: 00 12-11 00:00 :00 No 0.12 %ENJUAG UE CON 15 ML 0.12 %ENJUAGUE CON 15 ML (route: ) Med Classific ation: MOUTH-THR OAT-DENTA L - PREPARATI ONS BUTALBITAL- ACETAMINOPH EN-CAFFEINE ORAL 11-06 00:00: 00 12-06 00:00 :00 No 50-325- 40 mg 50-325-40 mg (route: ) Med Classific ation: ANALGESIC , ANTI-INFL AMMATORY OR ANTIPYRET IC BUTALBITAL- ACETAMINOPH EN-CAFFEINE ORAL 5-22 00:00: 00 10-19 00:00 :00 No 50-325- 40 mg 50-325-40 mg (route: ) Med Classific ation: ANALGESIC , ANTI-INFL AMMATORY OR ANTIPYRET IC RISPERIDONE ORAL 4-25 00:00: 00 09-22 00:00 :00 No [...] SYSTEM AGENTS FOLIC ACID ORAL 2017-05 00:00: 03-11 00:00 :00 No 1 mg1 TABLET EVERY DAY 1 mg1 TABLET EVERY DAY (route: ) Med Classific ation: ELECTROLY TE BALANCE-N UTRITIONA L PRODUCTS BUSPIRONE ORAL -19 00:00: 00 12-16 00:00 :00 No 10 mg 10 mg (route: ) Alternate Route: TOME TRUDY TABLETA POR V?A ORAL . Med Classific ation: CENTRAL NERVOUS SYSTEM AGENTS CYCLOBENZAP RINE ORAL 4-29 00:00: 00 09-01 00:00 :00 No 10 mg 10 mg (route: ) Med Classific ation: LOCOMOTOR SYSTEM CYCLOBENZAP RINE ORAL 07-26 00:00: 00 08-25 00:00 :00 No 5 [...] Classific ation: ANTI-INFE CTIVE AGENTS BISACODYL ORAL -16 00:00: 00 11-14 00:00 :00 No 5 mg2 TABLETS FOR 1 DOSE AT BEDTIME 5 mg2 TABLETS FOR 1 DOSE AT BEDTIME (route: ) Alternate Route: BY MOUTH . Med Classific ation: GASTROINT ESTINAL THERAPY AGENTS BISACODYL ORAL -12 00:00: 00 07-11 00:00 :00 No 5 [...] ation: OPHTHALMI C AGENTS BUPROPION HCL ORAL 9-06 00:00: 00 01-14 14:30 :26 No 150 [...] AGENTS PREDNISOLON E ACETATE OPHTHALMIC (EYE) 2017-05 0 00:00: 00 02-28 00:00 :00 No 1 %1 DROP EVERY DAY DIRECTED 1 %1 DROP EVERY DAY DIRECTED (route: ) Alternate Route: IN THE LEFT EYE . Med Classific ation: OPHTHALMI C AGENTS GABAPENTIN ORAL 12-14 00:00: 00 01-14 14:30 :09 No 300 mg 300 mg (route: ) Med Classific ation: CENTRAL NERVOUS SYSTEM AGENTS CLONAZEPAM ORAL 8 00:00: 00 01-14 14:30 :37 No 1 mg 1 mg (route: ) Med Classific ation: CENTRAL NERVOUS SYSTEM AGENTS CLONAZEPAM ORAL 2 00:00: 00 07-27 00:00 :00 No 1 mg 1 mg (route: ) Alternate Route: TOME TRUDY TABLETA QING VECES AL D?A CUANDO SEA NECESARIO PARA LA ANSIED AD . Med Classific ation: CENTRAL NERVOUS SYSTEM AGENTS CLONAZEPAM ORAL 2017-05 2 00:00: 00 05-02 00:00 :00 No 1 mg 1 mg (route: ) Med Classific ation: CENTRAL NERVOUS SYSTEM AGENTS CLONAZEPAM ORAL 2017-05 00:00: 00 03-31 00:00 :00 No 1 mg1 TABLET THREE TIMES DAILY NEEDED 1 mg1 TABLET THREE TIMES DAILY NEEDED (route: ) Alternate Route: BY MOUTH . Med Classific ation: CENTRAL NERVOUS SYSTEM AGENTS CLONAZEPAM ORAL 01-17 00:00: 00 02-16 00:00 :00 No 1 mg1 TABLET THREE TIMES DAILY NEEDED 1 mg1 TABLET THREE TIMES DAILY NEEDED (route: ) Alternate Route: BY MOUTH . Med Classific ation: CENTRAL NERVOUS SYSTEM AGENTS TYLENOL ARTHRITIS PAIN ORAL 4-04 00:00: 00 09-01 00:00 :00 No 650 mg 650 mg (route: ) Med Classific ation: ANALGESIC , ANTI-INFL AMMATORY OR ANTIPYRET IC METHOTREXAT E SODIUM ORAL 1-25 00:00: 00 06-22 00:00 :00 No 2.5 mg 2.5 mg (route: ) Alternate Route: TOME CUATRO TABLETAS POR V?A ORAL . Med Classific ation: ANALGESIC , ANTI-INFL AMMATORY OR ANTIPYRET IC METHOTREXAT E SODIUM ORAL 2017-05 0- 00:00: 00 03-09 00:00 :00 No 2.5 [...] OPHTHALMI C AGENTS MOXIFLOXACI N OPHTHALMIC (EYE) 01-16 00:00: 00 02-05 00:00 :00 No 0.5 [...] Name Observation Time Observation Value Commen ts Pulse 2024-08-21 16:54:00.000 68 /min O2 Saturation (%) 2024-08-21 16:54:00.000 98 % Respirations 2024-08-21 16:54:00.000 12 /min Systolic Blood Pressure 2024-08-21 16:54:00.000 120 mm [Hg] Diastolic Blood Pressure 2024-08-21 16:54:00.000 64 mm [Hg] Plan of Treatment Planned Activity [...] CURRENT PAIN MANAGEMENT REGIMEN.] Future Scheduled Test PATIENT STOVALL S A [...] OF PATIENTS MENTAL/BEHAVIORAL STATUS, ASSESS VITAL SIGNS WEEKLY. ALLOW 2 PRNS FOR MEDICATION MANAGEMENT. [code = SKILLED NURSE TO O/A OF PATIENTS MENTAL/BEHAVIORAL STATUS, ASSESS VITAL SIGNS WEEKLY. ALLOW 2 PRNS FOR MEDICATION MANAGEMENT.] Future Scheduled Test SKILLED NU RSE WILL MAINTAIN SITUATIONAL AWARENESS FOR SAFETY AND WILL NOTIFY CLINICAL SHREDDING MACHINE OPERATOR AND PHYSICIAN/PROVIDER WITH ANY CHANGE IN CONDITION. [code = SKILLED NURSE WILL MAINTAIN SITUATIONAL AWARENESS FOR SAFETY AND WILL NOTIFY CLINICAL SHREDDING MACHINE OPERATOR AND PHYSICIAN/PROVIDER WITH ANY CHANGE IN CONDITION.] Future Scheduled Test SKILLED NU RSE FOR O/A OF GENERAL HEALTH STATUS OF PAIN, CARDIAC, RESPIRATORY, GASTROINTESTINAL, GENITOURINARY, SKIN, NEUROLOGIC, ENDOCRINE SYSTEMS TO IDENTIFY CHANGES ASSOCIATED WITH EXACERBATION FOR EARLY INTERVENTION OF COMPLICATIONS WEEKLY. [code = SKILLED NURSE FOR O/A OF GENERAL HEALTH STATUS OF PAIN, CARDIAC, RESPIRATORY, GASTROINTESTINAL, GENITOURINARY, SKIN, NEUROLOGIC, ENDOCRINE SYSTEMS TO IDENTIFY CHANGES ASSOCIATED WITH EXACERBATION FOR EARLY INTERVENTION OF COMPLICATIONS WEEKLY. ] Future Scheduled Test SKILLED NU RSE [...] PROBLEMS.] Future Scheduled Test SKILLED NU RSE TO ADMINISTER MEDICATIONS EACH VISIT AND PRE-POUR MEDICATIONS THROUGH TO PROCEEDING NURSE VISIT PER MEDICATION LIST. [code = SKILLED NURSE TO ADMINISTER MEDICATIONS EACH VISIT AND PRE-POUR MEDICATIONS THROUGH TO PROCEEDING NURSE VISIT PER MEDICATION LIST.] Future Scheduled Test PATIENT ANJU Y HAVE ONE SET OF EMERGENCY MEDICATION NOT TO BE PRE-POURED ANY SOONER THAN 24 HOURS BEFORE SEVERE INCLEMENT WEATHER OR EMERGENT EVENT AND FOLLOWING SKILLED NURSE EVALUATION OF PATIENT SAFETY. [code = PATIENT MAY HAVE ONE SET OF EMERGENCY MEDICATION NOT TO BE PRE-POURED ANY SOONER THAN 24 HOURS BEFORE SEVERE INCLEMENT WEATHER OR EMERGENT EVENT AND FOLLOWING SKILLED NURSE EVALUATION OF PATIENT SAFETY.] Future Scheduled Test SKILLED NU RSE [...] O/A OF ALTERED MOOD] Future Scheduled Test SKILLED NU RSE FOR O/A OF CLIENT'S SLEEP PATTERNS. MAY TEACH INTERVENTIONS R/T ACQUIRING IMPROVED REST [code = SKILLED NURSE FOR O/A OF CLIENT'S SLEEP PATTERNS. MAY TEACH INTERVENTIONS R/T ACQUIRING IMPROVED REST] Future Scheduled Test SKILLED NU RSE MAY PICKUP AND TRANSPORT MEDICATIONS [code = SKILLED NURSE MAY PICKUP AND TRANSPORT MEDICATIONS] Future Scheduled Test MEDICATION S WILL BE HELD AND STORED IN LOCKBOX [code = MEDICATIONS WILL BE HELD AND STORED IN LOCKBOX] Future Scheduled Test SKILLED NU RSE FOR O/A TO IDENTIFY CHANGES ASSOCIATED WITH VERTIGO AND PROVIDE INSTRUCTION RELATED TO SAFETY MEASURES TO PREVENT INJURY SECONDARY TO IMPAIRED NEUROLOGICAL STATUS. SKILLED NURSE TO REPORT SIGNIFICANT CHANGES OF NEUROLOGIC STATUS TO PHYSICIAN FOR EARLY INTERVENTION. [code = SKILLED NURSE FOR O/A TO IDENTIFY CHANGES ASSOCIATED WITH VERTIGO AND PROVIDE INSTRUCTION RELATED TO SAFETY MEASURES TO PREVENT INJURY SECONDARY TO IMPAIRED NEUROLOGICAL STATUS. SKILLED NURSE TO REPORT SIGNIFICANT CHANGES OF NEUROLOGIC STATUS TO PHYSICIAN FOR EARLY INTERVENTION.] Future Scheduled Test SKILLED NU RSE FOR O/A OF MUSCULOSKELETAL STATUS AND TEACHING ON MEASURES TO MANAGE WEAKNESS AND TO MAINTAIN SAFETY WITH ACTIVITY [code = SKILLED NURSE FOR O/A OF MUSCULOSKELETAL STATUS AND TEACHING ON MEASURES TO MANAGE WEAKNESS AND TO MAINTAIN SAFETY WITH ACTIVITY] Future Scheduled Test MEDICAL SO CIAL WORKER TO EVALUATE PATIENT FOR NEED OF HOUSING AND SOCIAL SUPPORTS. [code = FELT MACHINE MECHANIC TO EVALUATE PATIENT FOR NEED OF HOUSING AND SOCIAL SUPPORTS.] Goal Patient Goal - I WANT TO STA Y SAFE Goal Provider Goal - A PLAN OF CARE WILL BE ESTABLISHED THAT MEETS PATIENT'S [facility] NEEDS AND INCLUDES PATIENT GOAL FOR HOME HEALTH. Goal Provider Goal - PATIENT/CAREGIVER WILL VERBALIZE/DEMONSTRATE EFFECTIVE HOME SAFETY AND FALL PREVENTION STRATEGIES THROUGHOUT CERTIFICATION PERIOD. Goal Provider Goal - PATIENT/CAREGIVER WILL DEMONSTRATE UNDERSTANDING OF PHARMACOLOGIC AND NONPHARMACOLOGIC PAIN CONTROL MEASURES AND PATIENT WILL HAVE IMPROVEMENT IN PAIN INTERFERING WITH ACTIVITY EVIDENCED BY PAIN CONTROLLED AT LEVEL THAT IS ACCEPTABLE TO THE PATIENT BY END OF CERTIFICATION PERIOD. Goal Provider Goal - PATIENT WILL HAVE SUPPORT MEASURES ESTABLISHED TO PREVENT HOSPITALIZATION AND ED USE AND PATIENT/CAREGIVER WILL VERBALIZE/DEMONSTRATE METHODS TO REDUCE AVOIDABLE HOSPITALIZATION AND ED USE BY END OF EPISODE. Goal Provider Goal - ALTERED MENTAL/BEHAVIORAL STATUS WILL BE IDENTIFIED PROMPTLY AND INTERVENTION INITIATED QUICKLY TO MINIMIZE ASSOCIATED RISKS THROUGHOUT CERTIFICATION PERIOD. Goal Provider Goal - PATIENT WILL REMAIN SAFE IN THE COMMUNITY AND WILL BE FREE OF DANGER TO SELF AND OTHERS THROUGHOUT THE CERTIFICATION PERIOD. Goal Provider Goal - CHANGE IN GENERAL HEALTH STATUS WILL BE IDENTIFIED AND REPORTED TO PHYSICIAN FOR PROMPT INTERVENTION TO MINIMIZE ASSOCIATED RISKS THROUGHOUT CERTIFICATION PERIOD. Goal Provider Goal - PATIENT/CAREGIVER WILL VERBALIZE UNDERSTANDING OF EDUCATION PROVIDED ON MEDICATIONS BY THE END OF THE CERTIFICATION PERIOD. Goal Provider Goal - PATIENT WILL COMPLY WITH MEDICATION WHEN SKILLED NURSE ADMINISTERS AND PRE-POURS MEDICATION THROUGHOUT CERTIFICATION PERIOD. Goal Provider Goal - MEDICATION WILL BE AVAILABLE DURING INCLEMENT WEATHER OR EMERGENT EVENT THROUGHOUT CERTIFICATION PERIOD. Goal Provider Goal - [...] PERIOD. Goal Provider Goal - PATIENT WILL REPORT AT LEAST 6-8 HOURS A NIGHT, RESTFUL SLEEP PATTERNS ACHIEVED USING THERAPEUTIC INTERVENTIONS BEFORE THE END OF THE CERTIFICATION PERIOD. Goal Provider Goal - SKILLED NURSE PICKED UP AND TRANSPORTED MEDICATIONS FOR SAFETY. Goal Provider Goal - MEDICATION WILL BE STORED IN LOCKBOX FOR SAFETY. Goal Provider Goal - CHANGES IN NEUROLOGIC STATUS WILL BE IDENTIFIED AND REPORTED TO THE PHYSICIAN FOR PROMPT INTERVENTION OF ASSOCIATED RISK. PATIENT/CAREGIVER WILL VERBALIZE/DEMONSTRATE APPROPRIATE SAFETY MEASURES TO PREVENT INJURY BY THE END OF THE CERTIFICATION PERIOD. Goal Provider Goal - PATIENT/CAREGIVER WILL VERBALIZE/DEMONSTRATE ABILITY TO MANAGE WEAKNESS WHILE MAINTAINING SAFETY THROUGHOUT THE EPISODE. Goal Provider Goal - FELT MACHINE MECHANIC TO COMPLETE EVALUATION TO ADDRESS THE PATIENTS SOCIAL AND EMOTIONAL FACTORS AND/OR WRITTEN PLAN OF TREATMENT ESTABLISHED FOR THE PHYSICIAN'S SIGNATURE. Progress Notes Progress Notes <paragraph>[Visit Date: 2024 by MAYA LEIJA RN, CLINICAL NAVIGATOR]:</paragraph><paragraph>59-YEAR-OLD [place] WOMAN. RECENTLY ADMITTED FOR SUICIDE ATTEMPT WITH OVERDOSE ON MEDICATIONS. CURRENTLY DENIES SUICIDAL IMPULSE BUT CIRCUMSTANCES THAT LED TO SUICIDE ATTEMPT HAVE NOT CHANGED. UPPER SORBIAN SPEAKING ONLY REQUESTS CREDIT INTERVIEWER. PAST MEDICAL HISTORY OF DOUBLE MASECTOMY, DO. NOT USE RIGHT ARM DUE TO HISTORY OF LYMPHEDEMA AND SIGNIFICANT LYMPH NODE REMOVAL. SCOLIOSIS BIPOLAR DEPRESSION HISTORY OF SUICIDE ATTEMPT. IN ADDITION TO OVERDOSE FOR SUICIDE PATIENT ALSO IDENTIFIES METHODS OF FALLING DOWN THE STAIRS AND DRIVING A CAR INTO A WALL. STATES THAT SHE LIVES WITH BOTH DAUGHTERS.HOWEVER , THE DAUGHTER THAT HELPS SUPPORT THE MORTGAGE IS MOVING OUT AND SHE DOES NOT HAVE MONEY TO PAY FOR AUGUST. STATES IDEA OF LOSING HOME IS DRIVING FACTOR OF SUICIDAL IDEATION. PATIENT ALSO ENDURES CHRONIC PAIN ICLUDING BACK PAIN. 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 SUFFERS FROM CHRONIC VERTIGO WELL IS A HIGH FALL RISK AND HER DAUGHTER MUST HELP HER WITH ANY MOBILITY TASKS INCLUDING USING THE BATHROOM, SHOWERING, TRANSFERRING. PATIENT IS NOT INITIALLY AGREEABLE TO USE OF LOCK BOX. RECONSTRUCTIVE DENTIST WILL HAVE TO REVIEW IF THIS IS A CONDITION OF ONGOING NURSING SERVICES. PATIENT WOULD NOT BRING HER MEDICATIONS DOWNSTAIRS TO SHOW NURSE, INSTEAD HANDED OVER A PHARMACY PRINT OUT OF MEDICATIONS ISSUED. AT THIS TIME PATIENTS STATES SHE HAS NO SELF HARM IDEATIONS OR PLAN. EXTENSIVE LIST OF ALLERGIES. HOME IS ALSO OCCUPIED BY THREE DOGS AND FOUR GUINEA PIGS. THE DOGS AND GUINEA PIGS WERE STOWED AWAY DURING THIS VISIT. IT IS A SINGLE FAMILY HOME WITH TWO FLOORS. IT APPEARS. PATIENT PRIMARILY SPENDS HER TIME ON THE SECOND FLOOR AND NEEDS SUPERVISION AND ASSISTANCE TIMES 1 TO NAVIGATE THE STAIRS.</paragraph> Encounters Start Date/Time End Date/Time Encounter Type Admission Type Attending [facility] Care Department Encounter ID Discharge Date Discharge Status Discharge Condition Discharge Reason Percent Goals Met 2024-08-21 00:00:00 2024-10-19 00:00:00 Outpatient DANTE [facility]AS [facility] [id number] 100.0 0
--- OUTSIDE RECORDS SUMMARY | 2024-08-23 14:27 | XMS_ITS | Clinical Summary ---
Author Organization [facility] Address [address] [place] [address] Care Team Providers Care [employer] Technology Teacher Name Role Phone Chuck Davila MD Primary Care Provider [phone] Allergies Active Allergy Reactions Criticality Noted Date [...] age to complete this topic Care Teams Middle [employer] Technology Teacher Relationship Specialty Start Date End Date Chuck Davila MD [address] [place] [address] [place] [address] PCP - General Internal Medicine 04/07/23
--- OUTSIDE RECORDS SUMMARY | 2024-08-23 14:27 | XMS_ITS | Clinical Summary ---
Author Organization [facility] Address [address] [place] [address] Care Team Providers Care Fare Register Repairer Name Role Phone Chuck Davila MD Primary Care Provider Surgical History Surgery Date Site/Laterality Comments SECTION PROCEDURE: SECTION TUBAL LIGATION PROCEDURE:TUBAL LIGATION MASTECTOMY PROCEDURE:MASTECTOMY COLONOSCOPY PROCEDURE:COLONOSCOPY HYSTERECTOMY PROCEDURE:HYSTERECTOMY Medical History Medical History Date Comments Breast cancer (CMS/HCC V24, CMS/[facility] V28) DX:Breast cancer (HCC) Disease of [...] age to complete this topic Care Teams Fare Register Repairer Relationship Specialty Start Date End Date Chuck Davila MD [address] [place] [address] Dr [address] ANJU Huerta PCP - General 04/07/23
--- OUTSIDE RECORDS SUMMARY | 2024-08-23 14:27 | XMS_ITS | Clinical Summary ---
Author Organization Unknown Care Team Providers Care Youth Care Professional Name Role Phone FELIPE GAMBOA, BETHANY Unavailable Unavailable ROLAN OLIVA, ANIA Unavailable Unavailable JOSE MIGUEL PASTOR, DANTE Unavailable Unavailable Payers Payer Name Policy Type Policy Number Effective Date Expira tion Date [facility] [place] [id number] MEDICAID [facility] [id number] Problems Condition Name Condition Details Condition Category [...] 2-08 00:00: 00 08-13 23:59 :00 No [id number] 2 puff EVERY 6 HOURS 2 puff EVERY 6 HOURS (route: inhalation ) Med Classific ation: Respirato ry Therapy Agents bisacodyl 5 mg tablet,cecile yed release 2-08 00:00: 00 08-13 23:59 :00 No [id number] 1 tablet EVERY AM 1 tablet EVERY AM (route: oral) Med Classific ation: Gastroint estinal Therapy Agents bupropion HCl SR 150 mg tablet,12 hr sustained-r elease 2-08 00:00: 00 08-13 23:59 :00 No [id number] 1 tablet EVERY AM 1 tablet EVERY AM (route: oral) Med Classific ation: Central Nervous System Agents cholecalcif danelle (vitamin D3) 25 mcg (1,000 unit) tablet 2 00:00: 00 08-13 23:59 :00 No [id number] 1 tablet EVERY AM 1 tablet EVERY AM (route: oral) Med Classific ation: Electroly te Balance-N utritiona l Products clonazepam 1 mg tablet 208 00:00: 00 08-13 23:59 :00 No [id number] 1 tablet 3 TIMES DAILY 1 tablet 3 TIMES DAILY (route: oral) Med Classific ation: Central Nervous System Agents Dexilant 60 mg capsule, delayed release 2-08 00:00: 00 08-13 23:59 :00 No [id number] 1 capsule EVERY AM 1 capsule EVERY AM (route: oral) Med Classific ation: Gastroint estinal Therapy Agents famotidine 40 mg tablet 2-08 00:00: 00 08-13 23:59 :00 No [id number] 1 tablet 2 TIMES DAILY 1 tablet 2 TIMES DAILY (route: oral) Med Classific ation: Gastroint estinal Therapy Agents gabapentin 300 mg capsule 2-08 00:00: 00 08-13 23:59 :00 No [id number] 1 capsule 3 TIMES DAILY 1 capsule 3 TIMES DAILY (route: oral) Med Classific ation: Central Nervous System Agents hydroxyzine HCl 25 mg tablet 2-08 00:00: 00 08-13 23:59 :00 No [id number] 1 tablet EVERY 6 HOURS 1 tablet EVERY 6 HOURS (route: oral) Med Classific ation: Central Nervous System Agents ibuprofen 400 mg tablet 2-08 00:00: 00 08-13 23:59 :00 No [id number] 1 tablet EVERY 6 HOURS 1 tablet EVERY 6 HOURS (route: oral) Med Classific ation: Analgesic , Anti-infl ammatory or Antipyret ic lamotrigine 100 mg tablet 2-08 00:00: 00 08-13 23:59 :00 No [id number] 1 tablet 2 TIMES DAILY 1 tablet 2 TIMES DAILY (route: oral) Med Classific ation: Central Nervous System Agents Lidocare 4 % topical patch 2-08 00:00: 00 08-13 23:59 :00 No [id number] 1 adhesiv e patch, medicat ed 2 TIMES DAILY 1 adhesive patch, medicated 2 TIMES DAILY (route: topical) Med Classific ation: Dermatolo gical Miebo (PF) 100 % eye drops 2-08 00:00: 00 08-13 23:59 :00 No [id number] 1 drops 3 TIMES DAILY 1 drops 3 TIMES DAILY (route: ophthalmic (eye)) Med Classific ation: Ophthalmi c Agents olanzapine 10 mg tablet 2-08 00:00: 00 08-13 23:59 :00 No [id number] 1 tablet BEDTIME 1 tablet BEDTIME (route: oral) Med Classific ation: Central Nervous System Agents ondansetron 8 mg disintegrat ing tablet 2-08 00:00: 00 08-13 23:59 :00 No [id number] 1 tablet EVERY OTHER DAY 1 tablet EVERY OTHER DAY (route: oral) Med Classific ation: Gastroint estinal Therapy Agents oxybutynin chloride 5 mg tablet 2-08 00:00: 00 08-13 23:59 :00 No [id number] 1 tablet EVERY AM 1 tablet EVERY AM (route: oral) Med Classific ation: Genitouri nary Therapy prazosin 1 mg capsule 2-08 00:00: 00 08-13 23:59 :00 No [id number] 1 capsule BEDTIME 1 capsule BEDTIME (route: oral) Med Classific ation: Cardiovas cular Therapy Agents Restasis 0.05 % eye drops in a dropperette 2-08 00:00: 00 08-13 23:59 :00 No [id number] 1 dropper ette 2 TIMES DAILY 1 dropperett e 2 TIMES DAILY (route: ophthalmic (eye)) Med Classific ation: Ophthalmi c Agents simethicone 80 mg chewable tablet 2-08 00:00: 00 08-13 23:59 :00 No [id number] 1 tablet 4 TIMES DAILY 1 tablet 4 TIMES DAILY (route: oral) Med Classific ation: Gastroint estinal Therapy Agents sumatriptan 50 mg tablet 2-08 00:00: 00 08-13 23:59 :00 No [id number] 1 tablet BEDTIME 1 tablet BEDTIME (route: oral) Med Classific ation: Central Nervous System Agents Synthroid 50 mcg tablet 2-08 00:00: 00 08-13 23:59 :00 No [id number] 1 tablet EVERY AM 1 tablet EVERY AM (route: oral) Med Classific ation: Endocrine trazodone 50 mg tablet 2-08 00:00: 00 08-13 23:59 :00 No [id number] 1 tablet BEDTIME 1 tablet BEDTIME (route: oral) Med Classific ation: Central Nervous System Agents Xiidra 5 % eye drops in a dropperette 2-08 00:00: 00 08-13 23:59 :00 No [id number] 1 dropper ette, single- use drop dispens er 2 TIMES DAILY 1 dropperett e, single-use drop dispenser 2 TIMES DAILY (route: ophthalmic (eye)) Med Classific ation: Ophthalmi c Agents amitriptyli ne 50 mg tablet 08-21 00:00: 00 Yes [id number] 1 tablet DAILY 1 tablet DAILY (route: oral) Med Classific ation: Central Nervous System Agents bisacodyl 5 mg tablet,cecile yed release 08-21 00:00: 00 Yes [id number] 1 tablet 2 TIMES DAILY 1 tablet 2 TIMES DAILY (route: oral) Med Classific ation: Gastroint estinal Therapy Agents bupropion HCl XL 150 mg 24 hr tablet, extended release 08-21 00:00: 00 Yes [id number] 1 tablet EVERY AM 1 tablet EVERY AM (route: oral) Med Classific ation: Central Nervous System Agents cimetidine 800 mg tablet 08-21 00:00: 00 Yes [id number] 1 tablet 2 TIMES DAILY 1 tablet 2 TIMES DAILY (route: oral) Med Classific ation: Gastroint estinal Therapy Agents clonazepam 1 mg tablet 08-21 00:00: 00 Yes [id number] 1 tablet 3 TIMES DAILY 1 tablet 3 TIMES DAILY (route: oral) Med Classific ation: Central Nervous System Agents Dexilant 60 mg capsule, delayed release 08-21 00:00: 00 Yes [id number] 1 capsule EVERY AM 1 capsule EVERY AM (route: oral) Med Classific ation: Gastroint estinal Therapy Agents diclofenac sodium 75 mg tablet,cecile yed release 08-21 00:00: 00 Yes [id number] 1 tablet 2 TIMES DAILY 1 tablet 2 TIMES DAILY (route: oral) Med Classific ation: Analgesic , Anti-infl ammatory or Antipyret ic doxepin 10 mg capsule 08-21 00:00: 00 Yes [id number] 1 capsule BEDTIME 1 capsule BEDTIME (route: oral) Med Classific ation: Central Nervous System Agents famotidine 40 mg tablet 08-21 00:00: 00 Yes [id number] 1 tablet 2 TIMES DAILY 1 tablet 2 TIMES DAILY (route: oral) Med Classific ation: Gastroint estinal Therapy Agents ferrous sulfate 325 mg (65 mg iron) tablet 08-21 00:00: 00 Yes [id number] 1 tablet DAILY 1 tablet DAILY (route: oral) Med Classific ation: Electroly te Balance-N utritiona l Products gabapentin 300 mg capsule 08-21 00:00: 00 Yes [id number] 1 capsule 3 TIMES DAILY 1 capsule 3 TIMES DAILY (route: oral) Med Classific ation: Central Nervous System Agents levothyroxi ne 50 mcg tablet 08-21 00:00: 00 Yes [id number] 1 tablet EVERY AM 1 tablet EVERY AM (route: oral) Med Classific ation: Endocrine ondansetron 8 mg disintegrat ing tablet 08-21 00:00: 00 Yes [id number] 1 tablet BEDTIME 1 tablet BEDTIME (route: oral) Med Classific ation: Gastroint estinal Therapy Agents oxybutynin chloride ER 10 mg tablet,exte nded release 24 hr 08-21 00:00: 00 Yes [id number] 1 tablet EVERY AM 1 tablet EVERY AM (route: oral) Med Classific ation: Genitouri nary Therapy phenazopyri dine 200 mg tablet 08-21 00:00: 00 Yes [id number] 1 tablet 3 TIMES DAILY 1 tablet 3 TIMES DAILY (route: oral) Med Classific ation: Genitouri nary Therapy sertraline 50 mg tablet 08-21 00:00: 00 Yes [id number] 1 tablet EVERY AM 1 tablet EVERY AM (route: oral) Med Classific ation: Central Nervous System Agents sumatriptan 50 mg tablet 08-21 00:00: 00 Yes [id number] 1 tablet DAILY 1 tablet DAILY (route: oral) Med Classific ation: Central Nervous System Agents trazodone 50 mg tablet 08-21 00:00: 00 Yes [id number] 1 tablet BEDTIME 1 tablet BEDTIME (route: oral) Med Classific ation: Central Nervous System Agents ASPERCREME (LIDOCAINE HCL) TOPICAL 12-07 00:00: 00 12-17 00:00 :00 No 4 % APLIQUE AL ?JORGE AFECTADA DOS VECES AL D?A SEG?N LO INDICADO FOR 10 DAY 4 % APLIQUE AL ?JORGE AFECTADA DOS VECES AL D?A SEG?N LO INDICADO FOR 10 DAY (route: ) Med Classific ation: DERMATOLO GICAL LATUDA ORAL 6-04 00:00: 00 11-01 00:00 :00 No 20 mg1 TABLET ONCE A DAY 20 mg1 TABLET ONCE A DAY (route: ) Alternate Route: BY MOUTH . Med Classific ation: CENTRAL NERVOUS SYSTEM AGENTS GAVILYTE-G ORAL 3-12 00:00: 00 07-11 00:00 :00 No 236-22. 74-6.74 -5.86 gram 236-22.74- 6.74 -5.86 gram (route: ) Alternate Route: SEG?N LO INDICADO BY . Med Classific ation: GASTROINT ESTINAL THERAPY AGENTS VOLTAREN TOPICAL 5-20 00:00: 00 10-17 00:00 :00 No 1 % 1 % (route: ) Med Classific ation: DERMATOLO GICAL NITROFURANT OIN MONOHYDRATE /MACROCRYST ALS ORAL 2-27 00:00: 00 07-02 00:00 :00 No 100 mg1 CAPSULE EVERY TWELVE HOURS WITH FOOD FOR 5 DAYS 100 mg1 CAPSULE EVERY TWELVE HOURS WITH FOOD FOR 5 DAYS (route: ) Alternate Route: BY MOUTH . Med Classific ation: ANTI-INFE CTIVE AGENTS READI-CAT 2 ORAL 18 00:00: 00 10-17 00:00 :00 No 2 % (w/v) 2 % (w/v) (route: ) Alternate Route: SEG?N LO INDICADO BY . Med Classific ation: DIAGNOSTI C AGENTS MOXIFLOXACI N OPHTHALMIC (EYE) -18 00:00: 00 02-05 00:00 :00 No 0.5 %1 DROP THREE TIMES DAILY START 2 DAYS BEFOR E SURGERY THEN INCREASE OR DECREASE DIRECTED 0.5 %1 DROP THREE TIMES DAILY START 2 DAYS BEFOR E SURGERY THEN INCREASE OR DECREASE DIRECTED (route: ) Alternate Route: IN THE AFFECTED EYE . Med Classific ation: OPHTHALMI C AGENTS MOXIFLOXACI N OPHTHALMIC (EYE) 2017-05 0-26 00:00: 00 03-15 00:00 :00 No 0.5 %1 DROP THREE TIMES DAILY START 2 DAYS BEFOR E SURGERY THEN INCREASE OR DECREASE DIRECTED 0.5 %1 DROP THREE TIMES DAILY START 2 DAYS BEFOR E SURGERY THEN INCREASE OR DECREASE DIRECTED (route: ) Alternate Route: IN THE AFFECTED EYE . Med Classific ation: OPHTHALMI C AGENTS ARIPIPRAZOL E ORAL 4-08 00:00: 00 09-05 00:00 :00 No 15 mg 15 mg (route: ) Med Classific ation: CENTRAL NERVOUS SYSTEM AGENTS ARIPIPRAZOL E ORAL 9-19 00:00: 00 02-16 00:00 :00 No 5 mg1 TABLET AT BEDTIME DIRECTED 5 mg1 TABLET AT BEDTIME DIRECTED (route: ) Med Classific ation: CENTRAL NERVOUS SYSTEM AGENTS ARIPIPRAZOL E ORAL 2017-05 0- 00:00: 00 03-08 00:00 :00 No 10 mg1 TABLET AT BEDTIME DIRECTED 10 mg1 TABLET AT BEDTIME DIRECTED (route: ) Alternate Route: BY MOUTH . Med Classific ation: CENTRAL NERVOUS SYSTEM AGENTS DICLOFENAC SODIUM TOPICAL 8-05 00:00: 00 01-02 00:00 :00 No 1 % 1 % (route: ) Med Classific ation: DERMATOLO GICAL SENNA LAX ORAL 0 3-12 00:00: 00 08-09 00:00 :00 No 8.6 mg 8.6 mg (route: ) Alternate Route: TOME DOS TABLETAS POR V?A ORAL . Med Classific ation: GASTROINT ESTINAL THERAPY AGENTS METHOTREXAT E SODIUM ORAL 2017-05 0-12 00:00: 00 03-09 00:00 :00 No 2.5 mg4 TABLETS ONCE A WEEK 2.5 mg4 TABLETS ONCE A WEEK (route: ) Alternate Route: BY MOUTH . Med Classific ation: ANALGESIC , ANTI-INFL AMMATORY OR ANTIPYRET IC METHOTREXAT E SODIUM ORAL 0 1-25 00:00: 00 06-22 00:00 :00 No 2.5 mg 2.5 mg (route: ) Alternate Route: TOME CUATRO TABLETAS POR V?A ORAL . Med Classific ation: ANALGESIC , ANTI-INFL AMMATORY OR ANTIPYRET IC TYLENOL ARTHRITIS PAIN ORAL 4-04 00:00: 00 09-01 00:00 :00 No 650 mg 650 mg (route: ) Med Classific ation: ANALGESIC , ANTI-INFL AMMATORY OR ANTIPYRET IC CLONAZEPAM ORAL 9-19 00:00: 00 02-16 00:00 :00 No 1 [...] CENTRAL NERVOUS SYSTEM AGENTS CLONAZEPAM ORAL 2017-05 203 00:00: 00 05-02 00:00 :00 No 1 mg 1 mg (route: ) Med Classific ation: CENTRAL NERVOUS SYSTEM AGENTS CLONAZEPAM ORAL 2-27 00:00: 00 07-27 00:00 :00 No 1 mg 1 mg (route: ) Alternate Route: TOME TRUDY TABLETA QING VECES AL D?A CUANDO SEA NECESARIO PARA LA ANSIED AD . Med Classific ation: CENTRAL NERVOUS SYSTEM AGENTS CLONAZEPAM ORAL 8-27 00:00: 00 01-14 14:30 :37 No 1 mg 1 mg (route: ) Med Classific ation: CENTRAL NERVOUS SYSTEM AGENTS GABAPENTIN ORAL 16 00:00: 00 01-14 14:30 :09 No 300 mg 300 mg (route: ) Med Classific ation: CENTRAL NERVOUS SYSTEM AGENTS PREDNISOLON E ACETATE OPHTHALMIC (EYE) 2017-05 00:00: 00 02-28 00:00 :00 No 1 %1 DROP EVERY DAY DIRECTED 1 %1 DROP EVERY DAY DIRECTED (route: ) Alternate Route: IN THE LEFT EYE . Med Classific ation: OPHTHALMI C AGENTS BUPROPION HCL ORAL 2017-05 00:00: 00 [...] CENTRAL NERVOUS SYSTEM AGENTS BUPROPION HCL ORAL 9-06 00:00: 00 01-14 14:30 :26 No 150 mg 150 mg (route: ) Med Classific ation: CENTRAL NERVOUS SYSTEM AGENTS FLUOROMETHO LONE OPHTHALMIC (EYE) 2017-05 0-05 00:00: 00 03-04 00:00 :00 No 0.1 %1 DROP THREE TIMES DAILY 0.1 %1 DROP THREE TIMES DAILY (route: ) Alternate Route: IN THE RIGHT EYE . Med Classific ation: OPHTHALMI C AGENTS BISACODYL ORAL 3-12 00:00: 00 07-11 00:00 :00 No 5 mg 5 mg (route: ) Alternate Route: TOME DOS TABLETAS POR V?A ORAL . Med Classific ation: GASTROINT ESTINAL THERAPY AGENTS BISACODYL ORAL -16 00:00: 00 11-14 00:00 :00 No 5 mg2 TABLETS FOR 1 DOSE AT BEDTIME 5 mg2 TABLETS FOR 1 DOSE AT BEDTIME (route: ) Alternate Route: BY MOUTH . Med Classific ation: GASTROINT ESTINAL THERAPY AGENTS CLINDAMYCIN HCL ORAL 2017-05 00:00: 00 03-09 00:00 :00 No 150 mg1 CAPSULE EVERY 6 HOURS 150 mg1 CAPSULE EVERY 6 HOURS (route: ) Alternate Route: BY MOUTH . Med Classific ation: ANTI-INFE CTIVE AGENTS TRAZODONE ORAL 2017-05 00:00: 00 03-31 00:00 :00 No 100 mg2 TABLETS AT BEDTIME 100 mg2 TABLETS AT BEDTIME (route: ) Alternate Route: BY MOUTH . Med Classific ation: CENTRAL NERVOUS SYSTEM AGENTS CYCLOBENZAP RINE ORAL 2017-05 0-12 00:00: 00 03-11 00:00 :00 No 5 mg1 TABLET AT BEDTIME NEEDED 5 mg1 TABLET AT BEDTIME NEEDED (route: ) Alternate Route: BY MOUTH . Med Classific ation: LOCOMOTOR SYSTEM CYCLOBENZAP RINE ORAL 328 00:00: 00 08-25 00:00 :00 No 5 mg 5 mg (route: ) Med Classific ation: LOCOMOTOR SYSTEM CYCLOBENZAP RINE ORAL 08-27 00:00: 00 09-01 00:00 :00 No 10 mg 10 mg (route: ) Med Classific ation: LOCOMOTOR SYSTEM BUSPIRONE ORAL 11-16 00:00: 00 12-16 00:00 :00 No 10 mg 10 mg (route: ) Alternate Route: TOME TRUDY TABLETA POR V?A ORAL . Med Classific ation: CENTRAL NERVOUS SYSTEM AGENTS FOLIC ACID ORAL 2017-05 00:00: 00 03-11 00:00 :00 No 1 mg1 TABLET EVERY DAY 1 mg1 TABLET EVERY DAY (route: ) Med Classific ation: ELECTROLY TE BALANCE-N UTRITIONA L PRODUCTS HYDROXYZINE HCL ORAL 12-07 00:00: 00 12-17 00:00 :00 No 25 mg CADA [place] CUANDO SEA NECESARIO FOR 10 DAYS 25 mg CADA [place] CUANDO SEA NECESARIO FOR 10 DAYS (route: ) Alternate Route: TOME TRUDY TABLETA POR V?A ORAL . Med Classific ation: CENTRAL NERVOUS SYSTEM AGENTS RISPERIDONE ORAL 08-23 00:00: 00 09-22 00:00 :00 No 1 mg 1 mg (route: ) Med Classific ation: CENTRAL NERVOUS SYSTEM AGENTS BUTALBITAL- ACETAMINOPH EN-CAFFEINE ORAL 09-19 00:00: 00 10-19 00:00 :00 No 50-325- 40 mg 50-325-40 mg (route: ) Med Classific ation: ANALGESIC , ANTI-INFL AMMATORY OR ANTIPYRET IC BUTALBITAL- ACETAMINOPH EN-CAFFEINE ORAL 11-06 00:00: 12-06 00:00 :00 No 50-325- 40 mg 50-325-40 mg (route: ) Med Classific ation: ANALGESIC , ANTI-INFL AMMATORY OR ANTIPYRET IC CHLORHEXIDI NE GLUCONATE MOUTH AND THROAT 2019-0 7-29 00:00: 00 12-11 00:00 :00 No 0.12 %ENJUAG UE CON 15 ML 0.12 %ENJUAGUE CON 15 ML (route: ) Med Classific ation: MOUTH-THR OAT-DENTA L - PREPARATI ONS IBUPROFEN ORAL 7- 00:00: 00 11-03 00:00 :00 No 800 mg 800 mg (route: ) Med Classific ation: ANALGESIC , ANTI-INFL AMMATORY OR ANTIPYRET IC IBUPROFEN ORAL 2017-05 1-05 00:00: 00 03-06 [...] ation: GASTROINT ESTINAL THERAPY AGENTS KETOROLAC ORAL 4-11 00:00: 00 08-13 00:00 :00 No 10 mg 10 mg (route: ) Alternate Route: TOME TRUDY TABLETA POR V?A ORAL . Med Classific ation: ANALGESIC , ANTI-INFL AMMATORY OR ANTIPYRET IC OMEPRAZOLE ORAL 906 00:00: 00 01-14 14:30 :50 No 20 mg 20 mg (route: ) Med Classific ation: GASTROINT ESTINAL THERAPY AGENTS AMOXICILLIN -POTASSIUM CLAVULANATE ORAL 5-14 00:00: 00 09-21 00:00 :00 No 500-125 mg 500-125 mg (route: ) Med Classific ation: ANTI-INFE CTIVE AGENTS SENNA ORAL 4-12 00:00: 00 09-09 00:00 :00 No 8.6 mg 8.6 mg (route: ) Alternate Route: TOME DOS TABLETAS POR V?A ORAL . Med Classific ation: GASTROINT ESTINAL THERAPY AGENTS AMOXICILLIN ORAL 2017-05 0-09 00:00: 00 02-13 00:00 :00 No 500 mg1 CAPSULE EVERY 8 HOURS 500 mg1 CAPSULE EVERY 8 HOURS (route: ) Alternate Route: BY MOUTH . Med Classific ation: ANTI-INFE CTIVE AGENTS AMOXICILLIN ORAL 08 00:00: 00 11-12 00:00 :00 No 500 mg 500 mg (route: ) Med Classific ation: ANTI-INFE CTIVE AGENTS ALENDRONATE ORAL 2-13 00:00: 00 07-11 00:00 :00 No 70 mg EN LA MA?DANA SEMANALMEN TE AT 70 mg EN LA MA?DANA SEMANALMEN TE AT (route: ) Alternate Route: TOME TRUDY TABLETA POR V?A ORAL . Med Classific ation: ENDOCRINE TIZANIDINE ORAL 8-14 00:00: 00 12-26 00:00 :00 No 2 mg 2 mg (route: ) Med Classific ation: LOCOMOTOR SYSTEM ACETAMINOPH EN ORAL 19 00:00: 00 12-16 00:00 :00 No 500 mg 500 mg (route: ) Alternate Route: TOME DOS TABLETAS POR V?A ORAL . Med Classific ation: ANALGESIC , ANTI-INFL AMMATORY OR ANTIPYRET IC Vital Signs Vital Name Observation Time Observation [...] AWARENESS FOR SAFETY AND WILL NOTIFY CLINICAL COMMERCIAL FISHING VESSEL OPERATOR AND PHYSICIAN/PROVIDER WITH ANY CHANGE IN CONDITION. [code = SKILLED NURSE WILL MAINTAIN SITUATIONAL AWARENESS FOR SAFETY AND WILL NOTIFY CLINICAL COMMERCIAL FISHING VESSEL OPERATOR AND PHYSICIAN/PROVIDER WITH ANY CHANGE IN [...] OF HOUSING AND SOCIAL SUPPORTS. [code = ACID CORRECTION HAND TO EVALUATE PATIENT FOR NEED OF HOUSING AND SOCIAL SUPPORTS.] Goal Patient Goal - I WANT TO STA Y SAFE Goal Provider Goal - A PLAN OF CARE WILL BE ESTABLISHED THAT MEETS PATIENT'S RESIDENTIAL NEEDS AND INCLUDES PATIENT GOAL FOR HOME [...] THROUGHOUT THE EPISODE. Goal Provider Goal - ACID CORRECTION HAND TO COMPLETE EVALUATION TO ADDRESS THE PATIENTS SOCIAL AND EMOTIONAL FACTORS AND/OR WRITTEN PLAN OF TREATMENT ESTABLISHED FOR THE PHYSICIAN'S SIGNATURE. Progress Notes Progress Notes <paragraph>[Visit Date: 2024 by MAYA LEIJA RN, CLINICAL NAVIGATOR]:</paragraph><paragraph>59-YEAR-OLD [place] WOMAN. RECENTLY ADMITTED FOR SUICIDE ATTEMPT WITH OVERDOSE ON MEDICATIONS. CURRENTLY DENIES SUICIDAL IMPULSE BUT CIRCUMSTANCES THAT LED TO SUICIDE ATTEMPT HAVE NOT CHANGED. GREEK SPEAKING ONLY REQUESTS SECURITY INSPECTOR. PAST MEDICAL HISTORY OF DOUBLE MASECTOMY, DO. [...] INITIALLY AGREEABLE TO USE OF LOCK BOX. 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
--- OUTSIDE RECORDS SUMMARY | 2024-08-23 14:27 | XMS_ITS | Encounter Summary ---
Author Organization [employer] Address [address] [place] [address] Care Team Providers Care Instructor Apparel Manufacture Name Role Phone Unavailable Primary Care Provider Unavailabl e Encounter Details Date Type Department Care Team (Latest Contact Info) Description 07/09/2018 Abstract [facility] CONVERSIONS Dental, Provider, DDS Social History [...]
== END 2024-08-23 13:45 | disposition home or self-care (01) ==
LOC: HO.MAMMO 13:44
PROVIDERS: PCP Internal Medicine; Visit Provider Internal Medicine Endocrinology, Diabetes & Metabolism
DX: Z13.820 Encounter for screening for osteoporosis (principal); Z78.0 Asymptomatic menopausal state
CPT/HCPCS: 77080

== ENCOUNTER → 2024-08-23 14:00 | Outpatient (BNV) | payer OTHER, SELFPAY | PROVIDERS: PCP Internal Medicine; Visit Provider Radiology Diagnostic Radiology | DX: E28.39 Other primary ovarian failure (principal) | CPT/HCPCS: 77080 ==

== ENCOUNTER 2024-08-30 14:15 | Outpatient (AMB) | payer OTHER, SELFPAY ==
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
[2024-08-30 14:27] VITALS: BP 130/90; PULSE 70; TEMP 36.4; O2SAT 97; BMI 20.3
--- OUTSIDE RECORDS SUMMARY | 2024-08-30 14:34 | XMS_ITS | Clinical Summary ---
Author Organization [facility] Address [address] [place] [address] Care Team Providers Care Nutrition Representative Name Role Phone Chuck Davila MD Primary Care Provider Surgical History Surgery Date Site/Laterality Comments SECTION PROCEDURE: SECTION TUBAL LIGATION PROCEDURE:TUBAL LIGATION MASTECTOMY PROCEDURE:MASTECTOMY COLONOSCOPY PROCEDURE:COLONOSCOPY HYSTERECTOMY PROCEDURE:HYSTERECTOMY Medical History Medical History Date Comments Breast cancer (CMS/HCC V24, CMS/[facility] V28) DX:Breast cancer (HCC) Disease of thyroid [...] age to complete this topic Care Teams Nutrition Representative Relationship Specialty Start Date End Date Chuck Davila MD [address] [place] [address] Dr [address] ANJU Huerta PCP - General 04/07/23
--- OUTSIDE RECORDS SUMMARY | 2024-08-30 14:34 | XMS_ITS | Encounter Summary ---
Author Organization [email or web address] Address [address] [place] [address] Care Team Providers Care Manager Water Name Role Phone Unavailable Primary Care Provider [...]
--- OUTSIDE RECORDS SUMMARY | 2024-08-30 14:34 | XMS_ITS | Clinical Summary ---
Author Organization Unknown Care Team Providers Care Ticket Taker Ferryboat Name Role Phone FELIPE GAMBOA, BETHANY Unavailable Unavailable ROLAN OLIVA, ANIA Unavailable Unavailable JOSE MIGUEL PASTOR, DANTE Unavailable Unavailable Payers Payer Name Policy Type Policy Number Effective Date Expira tion Date [employer] [place] [place] [facility] [id number] [facility] [id number] Problems Condition Name Condition Details Condition Category [...] 2-08 00:00: 00 08-13 23:59 :00 No [id number] 2 puff EVERY 6 HOURS 2 puff EVERY 6 HOURS (route: inhalation ) Med Classific ation: Respirato ry Therapy Agents bisacodyl 5 mg tablet,cecile yed release 2-08 00:00: 00 08-13 23:59 :00 No [id number] 1 tablet EVERY AM 1 tablet EVERY AM (route: oral) Med Classific ation: Gastroint estinal Therapy Agents bupropion HCl SR 150 mg tablet,12 hr sustained-r elease 2-08 00:00: 00 08-13 23:59 :00 No [id number] 1 tablet EVERY AM 1 tablet EVERY AM (route: oral) Med Classific ation: Central Nervous System Agents cholecalcif danelle (vitamin D3) 25 mcg (1,000 unit) tablet 2 00:00: 00 08-13 23:59 :00 No [id number] 1 tablet EVERY AM 1 tablet EVERY AM (route: oral) Med Classific ation: Electroly te Balance-N utritiona l Products clonazepam 1 mg tablet 208 00:00: 00 08-13 23:59 :00 No [id number] 1 tablet 3 TIMES DAILY 1 tablet 3 TIMES DAILY (route: oral) Med Classific ation: Central Nervous System Agents Dexilant 60 mg capsule, delayed release 2-08 00:00: 00 08-13 23:59 :00 No [id number] 1 capsule EVERY AM 1 capsule EVERY AM (route: oral) Med Classific ation: Gastroint estinal Therapy Agents famotidine 40 mg tablet 2-08 00:00: 00 08-13 23:59 :00 No [id number] 1 tablet 2 TIMES DAILY 1 tablet 2 TIMES DAILY (route: oral) Med Classific ation: Gastroint estinal Therapy Agents gabapentin 300 mg capsule 2-08 00:00: 00 08-13 23:59 :00 No [id number] 1 capsule 3 TIMES DAILY 1 capsule 3 TIMES DAILY (route: oral) Med Classific ation: Central Nervous System Agents hydroxyzine HCl 25 mg tablet 2-08 00:00: 00 08-13 23:59 :00 No [id number] 1 tablet EVERY 6 HOURS 1 tablet EVERY 6 HOURS (route: oral) Med Classific ation: Central Nervous System Agents ibuprofen 400 mg tablet 2-08 00:00: 00 08-13 23:59 :00 No [id number] 1 tablet EVERY 6 HOURS 1 tablet EVERY 6 HOURS (route: oral) Med Classific ation: Analgesic , Anti-infl ammatory or Antipyret ic lamotrigine 100 mg tablet 2-08 00:00: 00 08-13 23:59 :00 No [id number] 1 tablet 2 TIMES DAILY 1 tablet 2 TIMES DAILY (route: oral) Med Classific ation: Central Nervous System Agents Lidocare 4 % topical patch 2-08 00:00: 00 08-13 23:59 :00 No [id number] 1 adhesiv e patch, medicat ed 2 TIMES DAILY 1 adhesive patch, medicated 2 TIMES DAILY (route: topical) Med Classific ation: Dermatolo gical Miebo (PF) 100 % eye drops 2-08 00:00: 00 08-13 23:59 :00 No [id number] 1 drops 3 TIMES DAILY 1 drops 3 TIMES DAILY (route: ophthalmic (eye)) Med Classific ation: Ophthalmi c Agents olanzapine 10 mg tablet 2-08 00:00: 00 08-13 23:59 :00 No [id number] 1 tablet BEDTIME 1 tablet BEDTIME (route: oral) Med Classific ation: Central Nervous System Agents ondansetron 8 mg disintegrat ing tablet 2-08 00:00: 00 08-13 23:59 :00 No [id number] 1 tablet EVERY OTHER DAY 1 tablet EVERY OTHER DAY (route: oral) Med Classific ation: Gastroint estinal Therapy Agents oxybutynin chloride 5 mg tablet 2-08 00:00: 00 08-13 23:59 :00 No [id number] 1 tablet EVERY AM 1 tablet EVERY AM (route: oral) Med Classific ation: Genitouri nary Therapy prazosin 1 mg capsule 2-08 00:00: 00 08-13 23:59 :00 No [id number] 1 capsule BEDTIME 1 capsule BEDTIME (route: oral) Med Classific ation: Cardiovas cular Therapy Agents Restasis 0.05 % eye drops in a dropperette 2-08 00:00: 00 08-13 23:59 :00 No [id number] 1 dropper ette 2 TIMES DAILY 1 dropperett e 2 TIMES DAILY (route: ophthalmic (eye)) Med Classific ation: Ophthalmi c Agents simethicone 80 mg chewable tablet 2-08 00:00: 00 08-13 23:59 :00 No [id number] 1 tablet 4 TIMES DAILY 1 tablet 4 TIMES DAILY (route: oral) Med Classific ation: Gastroint estinal Therapy Agents sumatriptan 50 mg tablet 2-08 00:00: 00 08-13 23:59 :00 No [id number] 1 tablet BEDTIME 1 tablet BEDTIME (route: oral) Med Classific ation: Central Nervous System Agents Synthroid 50 mcg tablet 2-08 00:00: 00 08-13 23:59 :00 No [id number] 1 tablet EVERY AM 1 tablet EVERY AM (route: oral) Med Classific ation: Endocrine trazodone 50 mg tablet 2-08 00:00: 00 08-13 23:59 :00 No [id number] 1 tablet BEDTIME 1 tablet BEDTIME (route: oral) Med Classific ation: Central Nervous System Agents Xiidra 5 % eye drops in a dropperette 2-08 00:00: 00 08-13 23:59 :00 No [id number] 1 dropper ette, single- use drop dispens er 2 TIMES DAILY 1 dropperett e, single-use drop dispenser 2 TIMES DAILY (route: ophthalmic (eye)) Med Classific ation: Ophthalmi c Agents amitriptyli ne 50 mg tablet 08-21 00:00: 00 Yes [id number] 1 tablet DAILY 1 tablet DAILY (route: oral) Med Classific ation: Central Nervous System Agents bisacodyl 5 mg tablet,cecile yed release 08-21 00:00: 00 Yes [id number] 1 tablet 2 TIMES DAILY 1 tablet 2 TIMES DAILY (route: oral) Med Classific ation: Gastroint estinal Therapy Agents bupropion HCl XL 150 mg 24 hr tablet, extended release 08-21 00:00: 00 Yes [id number] 1 tablet EVERY AM 1 tablet EVERY AM (route: oral) Med Classific ation: Central Nervous System Agents cimetidine 800 mg tablet 08-21 00:00: 00 Yes [id number] 1 tablet 2 TIMES DAILY 1 tablet 2 TIMES DAILY (route: oral) Med Classific ation: Gastroint estinal Therapy Agents clonazepam 1 mg tablet 08-21 00:00: 00 Yes [id number] 1 tablet 3 TIMES DAILY 1 tablet 3 TIMES DAILY (route: oral) Med Classific ation: Central Nervous System Agents Dexilant 60 mg capsule, delayed release 08-21 00:00: 00 Yes [id number] 1 capsule EVERY AM 1 capsule EVERY AM (route: oral) Med Classific ation: Gastroint estinal Therapy Agents diclofenac sodium 75 mg tablet,cecile yed release 08-21 00:00: 00 Yes [id number] 1 tablet 2 TIMES DAILY 1 tablet 2 TIMES DAILY (route: oral) Med Classific ation: Analgesic , Anti-infl ammatory or Antipyret ic doxepin 10 mg capsule 08-21 00:00: 00 Yes [id number] 1 capsule BEDTIME 1 capsule BEDTIME (route: oral) Med Classific ation: Central Nervous System Agents famotidine 40 mg tablet 08-21 00:00: 00 Yes [id number] 1 tablet 2 TIMES DAILY 1 tablet 2 TIMES DAILY (route: oral) Med Classific ation: Gastroint estinal Therapy Agents ferrous sulfate 325 mg (65 mg iron) tablet 08-21 00:00: 00 Yes [id number] 1 tablet DAILY 1 tablet DAILY (route: oral) Med Classific ation: Electroly te Balance-N utritiona l Products gabapentin 300 mg capsule 08-21 00:00: 00 Yes [id number] 1 capsule 3 TIMES DAILY 1 capsule 3 TIMES DAILY (route: oral) Med Classific ation: Central Nervous System Agents levothyroxi ne 50 mcg tablet 08-21 00:00: 00 Yes [id number] 1 tablet EVERY AM 1 tablet EVERY AM (route: oral) Med Classific ation: Endocrine ondansetron 8 mg disintegrat ing tablet 08-21 00:00: 00 Yes [id number] 1 tablet BEDTIME 1 tablet BEDTIME (route: oral) Med Classific ation: Gastroint estinal Therapy Agents oxybutynin chloride ER 10 mg tablet,exte nded release 24 hr 08-21 00:00: 00 Yes [id number] 1 tablet EVERY AM 1 tablet EVERY AM (route: oral) Med Classific ation: Genitouri nary Therapy phenazopyri dine 200 mg tablet 08-21 00:00: 00 Yes [id number] 1 tablet 3 TIMES DAILY 1 tablet 3 TIMES DAILY (route: oral) Med Classific ation: Genitouri nary Therapy sertraline 50 mg tablet 08-21 00:00: 00 Yes [id number] 1 tablet EVERY AM 1 tablet EVERY AM (route: oral) Med Classific ation: Central Nervous System Agents sumatriptan 50 mg tablet 08-21 00:00: 00 Yes [id number] 1 tablet DAILY 1 tablet DAILY (route: oral) Med Classific ation: Central Nervous System Agents trazodone 50 mg tablet 08-21 00:00: 00 Yes [id number] 1 tablet BEDTIME 1 tablet BEDTIME (route: [...] AWARENESS FOR SAFETY AND WILL NOTIFY CLINICAL CARTON FILLER AND PHYSICIAN/PROVIDER WITH ANY CHANGE IN CONDITION. [code = SKILLED NURSE WILL MAINTAIN SITUATIONAL AWARENESS FOR SAFETY AND WILL NOTIFY CLINICAL CARTON FILLER AND PHYSICIAN/PROVIDER WITH ANY CHANGE IN CONDITION.] [...] OF HOUSING AND SOCIAL SUPPORTS. [code = WOOD DRILLING MACHINE OPERATOR TO EVALUATE PATIENT FOR NEED OF HOUSING AND SOCIAL SUPPORTS.] Goal Patient Goal - I WANT TO STA Y SAFE Goal Provider Goal - A PLAN OF CARE WILL BE ESTABLISHED THAT MEETS PATIENT'S CUSTODIAL NEEDS AND INCLUDES PATIENT GOAL FOR HOME [...] THROUGHOUT THE EPISODE. Goal Provider Goal - WOOD DRILLING MACHINE OPERATOR TO COMPLETE EVALUATION TO ADDRESS THE PATIENTS SOCIAL AND EMOTIONAL FACTORS AND/OR WRITTEN PLAN OF TREATMENT ESTABLISHED FOR THE PHYSICIAN'S SIGNATURE. Encounters Start Date/Time End Date/Time Encounter Type Admission Type Attending [facility] Care Department Encounter ID Discharge Date Discharge Status Discharge Condition Discharge Reason Percent Goals Met 2024-08-21 00:00:00 2024-10-19 00:00:00 Outpatient DANTE VERAS [facility] [id number] 100.0 0
--- OUTSIDE RECORDS SUMMARY | 2024-08-30 14:34 | XMS_ITS | Clinical Summary ---
Author Organization Unknown Care Team Providers Care Plate Maker Zinc Name Role Phone FELIPE GAMBOA, BETHANY Unavailable Unavailable ROLAN OLIVA, ANIA Unavailable Unavailable JOSE MIGUEL PASTOR, DANTE Unavailable Unavailable Payers Payer Name Policy Type Policy Number Effective Date Expira tion Date [facility] [facility] [id number] MEDICAID [facility] [id number] Problems Condition Name Condition Details Condition Category [...] 2-08 00:00: 00 08-13 23:59 :00 No [id number] 2 puff EVERY 6 HOURS 2 puff EVERY 6 HOURS (route: inhalation ) Med Classific ation: Respirato ry Therapy Agents bisacodyl 5 mg tablet,cecile yed release 2-08 00:00: 00 08-13 23:59 :00 No [id number] 1 tablet EVERY AM 1 tablet EVERY AM (route: oral) Med Classific ation: Gastroint estinal Therapy Agents bupropion HCl SR 150 mg tablet,12 hr sustained-r elease 2-08 00:00: 00 08-13 23:59 :00 No [id number] 1 tablet EVERY AM 1 tablet EVERY AM (route: oral) Med Classific ation: Central Nervous System Agents cholecalcif danelle (vitamin D3) 25 mcg (1,000 unit) tablet 2 00:00: 00 08-13 23:59 :00 No [id number] 1 tablet EVERY AM 1 tablet EVERY AM (route: oral) Med Classific ation: Electroly te Balance-N utritiona l Products clonazepam 1 mg tablet 208 00:00: 00 08-13 23:59 :00 No [id number] 1 tablet 3 TIMES DAILY 1 tablet 3 TIMES DAILY (route: oral) Med Classific ation: Central Nervous System Agents Dexilant 60 mg capsule, delayed release 2-08 00:00: 00 08-13 23:59 :00 No [id number] 1 capsule EVERY AM 1 capsule EVERY AM (route: oral) Med Classific ation: Gastroint estinal Therapy Agents famotidine 40 mg tablet 2-08 00:00: 00 08-13 23:59 :00 No [id number] 1 tablet 2 TIMES DAILY 1 tablet 2 TIMES DAILY (route: oral) Med Classific ation: Gastroint estinal Therapy Agents gabapentin 300 mg capsule 2-08 00:00: 00 08-13 23:59 :00 No [id number] 1 capsule 3 TIMES DAILY 1 capsule 3 TIMES DAILY (route: oral) Med Classific ation: Central Nervous System Agents hydroxyzine HCl 25 mg tablet 2-08 00:00: 00 08-13 23:59 :00 No [id number] 1 tablet EVERY 6 HOURS 1 tablet EVERY 6 HOURS (route: oral) Med Classific ation: Central Nervous System Agents ibuprofen 400 mg tablet 2-08 00:00: 00 08-13 23:59 :00 No [id number] 1 tablet EVERY 6 HOURS 1 tablet EVERY 6 HOURS (route: oral) Med Classific ation: Analgesic , Anti-infl ammatory or Antipyret ic lamotrigine 100 mg tablet 2-08 00:00: 00 08-13 23:59 :00 No [id number] 1 tablet 2 TIMES DAILY 1 tablet 2 TIMES DAILY (route: oral) Med Classific ation: Central Nervous System Agents Lidocare 4 % topical patch 2-08 00:00: 00 08-13 23:59 :00 No [id number] 1 adhesiv e patch, medicat ed 2 TIMES DAILY 1 adhesive patch, medicated 2 TIMES DAILY (route: topical) Med Classific ation: Dermatolo gical Miebo (PF) 100 % eye drops 2-08 00:00: 00 08-13 23:59 :00 No [id number] 1 drops 3 TIMES DAILY 1 drops 3 TIMES DAILY (route: ophthalmic (eye)) Med Classific ation: Ophthalmi c Agents olanzapine 10 mg tablet 2-08 00:00: 00 08-13 23:59 :00 No [id number] 1 tablet BEDTIME 1 tablet BEDTIME (route: oral) Med Classific ation: Central Nervous System Agents ondansetron 8 mg disintegrat ing tablet 2-08 00:00: 00 08-13 23:59 :00 No [id number] 1 tablet EVERY OTHER DAY 1 tablet EVERY OTHER DAY (route: oral) Med Classific ation: Gastroint estinal Therapy Agents oxybutynin chloride 5 mg tablet 2-08 00:00: 00 08-13 23:59 :00 No [id number] 1 tablet EVERY AM 1 tablet EVERY AM (route: oral) Med Classific ation: Genitouri nary Therapy prazosin 1 mg capsule 2-08 00:00: 00 08-13 23:59 :00 No [id number] 1 capsule BEDTIME 1 capsule BEDTIME (route: oral) Med Classific ation: Cardiovas cular Therapy Agents Restasis 0.05 % eye drops in a dropperette 2-08 00:00: 00 08-13 23:59 :00 No [id number] 1 dropper ette 2 TIMES DAILY 1 dropperett e 2 TIMES DAILY (route: ophthalmic (eye)) Med Classific ation: Ophthalmi c Agents simethicone 80 mg chewable tablet 2-08 00:00: 00 08-13 23:59 :00 No [id number] 1 tablet 4 TIMES DAILY 1 tablet 4 TIMES DAILY (route: oral) Med Classific ation: Gastroint estinal Therapy Agents sumatriptan 50 mg tablet 2-08 00:00: 00 08-13 23:59 :00 No [id number] 1 tablet BEDTIME 1 tablet BEDTIME (route: oral) Med Classific ation: Central Nervous System Agents Synthroid 50 mcg tablet 2-08 00:00: 00 08-13 23:59 :00 No [id number] 1 tablet EVERY AM 1 tablet EVERY AM (route: oral) Med Classific ation: Endocrine trazodone 50 mg tablet 2-08 00:00: 00 08-13 23:59 :00 No [id number] 1 tablet BEDTIME 1 tablet BEDTIME (route: oral) Med Classific ation: Central Nervous System Agents Xiidra 5 % eye drops in a dropperette 2-08 00:00: 00 08-13 23:59 :00 No [id number] 1 dropper ette, single- use drop dispens er 2 TIMES DAILY 1 dropperett e, single-use drop dispenser 2 TIMES DAILY (route: ophthalmic (eye)) Med Classific ation: Ophthalmi c Agents amitriptyli ne 50 mg tablet 08-21 00:00: 00 Yes [id number] 1 tablet DAILY 1 tablet DAILY (route: oral) Med Classific ation: Central Nervous System Agents bisacodyl 5 mg tablet,cecile yed release 08-21 00:00: 00 Yes [id number] 1 tablet 2 TIMES DAILY 1 tablet 2 TIMES DAILY (route: oral) Med Classific ation: Gastroint estinal Therapy Agents bupropion HCl XL 150 mg 24 hr tablet, extended release 08-21 00:00: 00 Yes [id number] 1 tablet EVERY AM 1 tablet EVERY AM (route: oral) Med Classific ation: Central Nervous System Agents cimetidine 800 mg tablet 08-21 00:00: 00 Yes [id number] 1 tablet 2 TIMES DAILY 1 tablet 2 TIMES DAILY (route: oral) Med Classific ation: Gastroint estinal Therapy Agents clonazepam 1 mg tablet 08-21 00:00: 00 Yes [id number] 1 tablet 3 TIMES DAILY 1 tablet 3 TIMES DAILY (route: oral) Med Classific ation: Central Nervous System Agents Dexilant 60 mg capsule, delayed release 08-21 00:00: 00 Yes [id number] 1 capsule EVERY AM 1 capsule EVERY AM (route: oral) Med Classific ation: Gastroint estinal Therapy Agents diclofenac sodium 75 mg tablet,cecile yed release 08-21 00:00: 00 Yes [id number] 1 tablet 2 TIMES DAILY 1 tablet 2 TIMES DAILY (route: oral) Med Classific ation: Analgesic , Anti-infl ammatory or Antipyret ic doxepin 10 mg capsule 08-21 00:00: 00 Yes [id number] 1 capsule BEDTIME 1 capsule BEDTIME (route: oral) Med Classific ation: Central Nervous System Agents famotidine 40 mg tablet 08-21 00:00: 00 Yes [id number] 1 tablet 2 TIMES DAILY 1 tablet 2 TIMES DAILY (route: oral) Med Classific ation: Gastroint estinal Therapy Agents ferrous sulfate 325 mg (65 mg iron) tablet 08-21 00:00: 00 Yes [id number] 1 tablet DAILY 1 tablet DAILY (route: oral) Med Classific ation: Electroly te Balance-N utritiona l Products gabapentin 300 mg capsule 08-21 00:00: 00 Yes [id number] 1 capsule 3 TIMES DAILY 1 capsule 3 TIMES DAILY (route: oral) Med Classific ation: Central Nervous System Agents levothyroxi ne 50 mcg tablet 08-21 00:00: 00 Yes [id number] 1 tablet EVERY AM 1 tablet EVERY AM (route: oral) Med Classific ation: Endocrine ondansetron 8 mg disintegrat ing tablet 08-21 00:00: 00 Yes [id number] 1 tablet BEDTIME 1 tablet BEDTIME (route: oral) Med Classific ation: Gastroint estinal Therapy Agents oxybutynin chloride ER 10 mg tablet,exte nded release 24 hr 08-21 00:00: 00 Yes [id number] 1 tablet EVERY AM 1 tablet EVERY AM (route: oral) Med Classific ation: Genitouri nary Therapy phenazopyri dine 200 mg tablet 08-21 00:00: 00 Yes [id number] 1 tablet 3 TIMES DAILY 1 tablet 3 TIMES DAILY (route: oral) Med Classific ation: Genitouri nary Therapy sertraline 50 mg tablet 08-21 00:00: 00 Yes [id number] 1 tablet EVERY AM 1 tablet EVERY AM (route: oral) Med Classific ation: Central Nervous System Agents sumatriptan 50 mg tablet 08-21 00:00: 00 Yes [id number] 1 tablet DAILY 1 tablet DAILY (route: oral) Med Classific ation: Central Nervous System Agents trazodone 50 mg tablet 08-21 00:00: 00 Yes [id number] 1 tablet BEDTIME 1 tablet BEDTIME (route: [...] AWARENESS FOR SAFETY AND WILL NOTIFY CLINICAL METEOROLOGY PROFESSOR AND PHYSICIAN/PROVIDER WITH ANY CHANGE IN CONDITION. [code = SKILLED NURSE WILL MAINTAIN SITUATIONAL AWARENESS FOR SAFETY AND WILL NOTIFY CLINICAL METEOROLOGY PROFESSOR AND PHYSICIAN/PROVIDER WITH ANY CHANGE IN CONDITION.] [...] OF HOUSING AND SOCIAL SUPPORTS. [code = BOLT CUTTER TO EVALUATE PATIENT FOR NEED OF HOUSING AND SOCIAL SUPPORTS.] Goal Patient Goal - I WANT TO STA Y SAFE Goal Provider Goal - A PLAN OF CARE WILL BE ESTABLISHED THAT MEETS PATIENT'S FCI NEEDS AND INCLUDES PATIENT GOAL FOR HOME [...] THROUGHOUT THE EPISODE. Goal Provider Goal - BOLT CUTTER TO COMPLETE EVALUATION TO ADDRESS THE PATIENTS SOCIAL AND EMOTIONAL FACTORS AND/OR WRITTEN PLAN OF TREATMENT ESTABLISHED FOR THE PHYSICIAN'S SIGNATURE. Encounters Start Date/Time End Date/Time Encounter Type Admission Type Attending [facility] Care Department Encounter ID Discharge Date Discharge Status Discharge Condition Discharge Reason Percent Goals Met 2024-08-21 00:00:00 2024-10-19 00:00:00 Outpatient DANTE VERAS [facility] [id number] 100.0 0
--- OUTSIDE RECORDS SUMMARY | 2024-08-30 14:34 | XMS_ITS | Clinical Summary ---
Author Organization [employer] Address [address] [place] [address] [address] [place] [address] Care Team Providers Care Boat Person Name Role Phone Unavailable Primary Care Provider [...]
--- OUTSIDE RECORDS SUMMARY | 2024-08-30 14:34 | XMS_ITS | Clinical Summary ---
Author Organization [facility] Address [address] [place] [address] Care Team Providers Care Tank Truck Loader Name Role Phone Chuck Davila MD Primary Care Provider [phone] Allergies Active Allergy Reactions Criticality Noted Date [...] age to complete this topic Care Teams Tank Truck Loader Relationship Specialty Start Date End Date Chuck Davila MD [address] [place] [address] [place] [id number] PCP - General Internal Medicine 04/07/23
== END 2024-08-30 15:29 | disposition home or self-care (01) ==
LOC: HO.HMCH 14:16
PROVIDERS: PCP Internal Medicine; Visit Provider Nurse Practitioner Family
DX: F31.81 Bipolar II disorder (principal); R45.851 Suicidal ideations; B37.0 Candidal stomatitis

== ENCOUNTER → 2024-08-30 14:15 | Outpatient (BNVA) | payer OTHER, SELFPAY | PROVIDERS: PCP Internal Medicine; Visit Provider Nurse Practitioner Family | DX: G43.909 Migraine, unspecified, not intractable, without status migrainosus (principal); M47.816 Spondylosis without myelopathy or radiculopathy, lumbar region; F41.9 Anxiety disorder, unspecified; E03.9 Hypothyroidism, unspecified; E55.9 Vitamin D deficiency, unspecified; K59.00 Constipation, unspecified; F31.81 Bipolar II disorder; R45.851 Suicidal ideations; B37.0 Candidal stomatitis; Z90.13 Acquired absence of bilateral breasts and nipples; Z85.3 Personal history of malignant neoplasm of breast | CPT/HCPCS: 99212 ==

== ENCOUNTER 2024-09-02 15:52 | Outpatient (AMB) | payer OTHER, SELFPAY ==
--- NOTE | 2024-09-02 15:52 | A.OFFVIS_ITS ---
Intake Visit Reasons: follow up IC Intake Note: Patient is present via telehealth for a follow up/IC Urology Medications:oxybutynin Blood Thinner:none Easement Man Required: No Accompanied by: Daughter Allergies Sulfa (Sulfonamide Antibiotics) Allergy (Severe, Verified 09/02/24 20:32) Itching codeine [CODEINE] Allergy (Intermediate, Verified 09/02/24 20:32) ITCHING hydroxychloroquine [From PLAQUENIL] Allergy (Intermediate, Verified 09/02/24 20:32) VOMITING morphine [MORPHINE] Allergy (Intermediate, Verified 09/02/24 20:32) ITCHING Estrogens Allergy (Mild, Verified 09/02/24 20:32) Unknown levothyroxine sodium Allergy (Unknown, Verified 09/02/24 20:32) rash,throat closes prednisone Allergy (Unknown, Verified 09/02/24 20:32) Unknown Corticosteroids (Glucocorticoids) [CORTICOSTEROIDS (GLUCOCORTICOIDS)] Adverse Reaction (Severe, Verified 09/02/24 20:32) DIFFICULTY BREATHING escitalopram [From Lexapro] Adverse Reaction (Severe, Verified 09/02/24 20:32) seizure meloxicam Adverse Reaction (Severe, Verified 09/02/24 20:32) Gastrointestinal Upset tadalafil [From Cialis] Adverse Reaction (Intermediate, Verified 09/02/24 20:32) Nausea and Vomiting acetaminophen [Percocet] Adverse Reaction (Unknown, Verified 09/02/24 20:32) Unknown duloxetine Adverse Reaction (Unknown, Verified 09/02/24 20:32) Unknown fluconazole Adverse Reaction (Unknown, Verified 09/02/24 20:32) Itch, pain, Medication List - Last Reconciled 09/02/24 by TRINY Jiang albuterol sulfate 90 mcg/actuation (Ventolin HFA) 2 puffs inhalation Q6H PRN bisacodyl 10 mg PO BEDTIME bupropion HCl XL 150 mg PO QAM cimetidine 800 mg PO BID clonazepam 1 mg PO TID PRN dexlansoprazole (Dexilant) 60 mg PO DAILY diclofenac sodium 75 mg PO BID famotidine 40 mg PO BID ferrous sulfate 324 mg PO DAILY gabapentin 300 mg PO TID lamotrigine 50 mg (2 x 25 mg) PO BEDTIME levothyroxine (Synthroid) 50 mcg PO DAILY nystatin 1 mL PO DAILY onabotulinumtoxinA (Botox) 200 units IM [id number] ondansetron HCl 8 mg PO BEDTIME PRN oxybutynin chloride ER 10 mg PO DAILY phenazopyridine 200 mg PO TID PRN sumatriptan succinate 50 mg PO DAILY PRN trazodone 50 mg PO BEDTIME PRN HPI Comments Details: Zara is a very pleasant 58-year-old Sammarinese-speaking female patient of Dr. Davila who was accompanied by her daughter during [facility] video telehealth visit. She has a past medical history of hypothyroidism, anxiety, bipolar, depression, constipation, ductal carcinoma in Situ of left breast, fibromyalgia, insomnia, leukopenia, lupus, osteoporosis, polyarthralgia, PTSD, Raynaud's, rheumatoid arthritis, and vitamin-D deficiency. In discussion with the patient today she reports having followed up with urgent care for lower urinary tract symptoms she had been experiencing at which time she was diagnosed with a urinary tract infection. She reports having completed Macrobid as prescribed however continues with dysuria and urinary frequency. Patient also with a longstanding history of interstitial cystitis and had had no flare-ups in over the last year. We discussed potential for flare-up of cystitis verses urinary tract infection. Today's appointment is via telehealth therefore unable to assess urine for urinalysis. We discussed follow-up in office with nursing to assess urine as well as send for microgen. She denies incontinence, hematuria, foul smelling urine, changes to urinary stream, flank pain, fever, and or chills. Of note patient has a history of undergoing cystoscopy hydrodistention with Dr. Keita 03/23. Previous workup has included a retroperitoneal ultrasound noting posterior bladder wall trabeculations possibly related to history of c ystitis or hypertrophy. She has trialed low-dose Cialis however experienced reaction of swelling and itching. Discussed and stressed the importance of avoiding bladder triggers/irritants. She otherwise offers no other issues or concerns at this time. [facility] Medical History Bipolar 1 disorder Chronic idiopathic constipation Depression Chronic pruritus Urticaria Vitamin D deficiency Polyarthralgia Small bowel motility disorder Dry mouth and eyes Seborrhea capitis in adult Bilateral sciatica Urinary frequency Abdominal pannus Positive sm/DRYWALL T[employer]ER antibody Family history of polyps in the colon Fracture of neck of left humerus Humeral head fracture Chronic gastritis Insomnia Hypothyroidism Seropositive rheumatoid arthritis Leukopenia Gingivitis History of breast cancer Estrogen receptor positive status [ER+] Ductal carcinoma in situ (DCIS) of left breast Autoimmune disorder PTSD (post-traumatic stress disorder) COVID-19 Bilateral knee pain Fibromyalgia Schatzki's ring Rheumatoid arthritis Small bowel motility disorder Osteoporosis Raynaud's disease without gangrene Bipolar depression Anxiety Primary insomnia Constipation Acquired hypothyroidism Systemic lupus erythematosus Left temporomandibular joint disorder, unspecified Surgical History Hx of abdominoplasty History of esophagogastroduodenoscopy (EGD) Hx of colonoscopy History of bilateral mastectomy History of total abdominal hysterectomy and bilateral salpingo-oophorectomy History of cholecystectomy History of tubal ligation History of section Family History Father Prostate cancer Hypertension Mother Breast cancer Hypertension Asthma Maternal Aunt Breast cancer Maternal Grandmother Colon cancer Maternal Aunt Breast cancer Sister Bone cancer Social History Household Members: Children Household Members Other:: 2 daughters and 3 dogs Housing: House Do you presently have visiting nurse or other home services: No Alcohol intake: never Comment: 5 min safety checks Patient Tobacco Use Status: Never used Tobacco Tobacco use type: Cigarette e-Cigarette/Vaping Use: Never Used Second Hand Smoke Exposure: No Advance Directives Date on File: 08/12/20 service: No Current occupational status: disabled Current occupational exposures/hazards: No Sexual orientation: Straight/Heterosexual Gender identity: Female Cognitive needs: Yes (cane) Hearing needs: No Vision needs: Yes (Glasses) Female Reproductive History Menstrual Age of Menarche: 10 Review of Systems Const Reports as per HPI Eyes Reports no additional complaints ENT Reports no additional complaints Card Reports as per HPI Resp Reports no additional complaints GI Reports as per HPI Reports as per HPI Musc Reports as per HPI Skin/Breast Reports as per HPI Neuro Reports as per HPI Psych Reports as per HPI Endo Reports as per HPI Aller/Immun Reports as per HPI Physical Exam Const General: cooperative, healthy appearing, comfortable, no acute distress, well developed, alert and awake Orientation/consciousness: patient oriented x3 Resp Effort & Inspection: normal respiratory effort and able to speak in complete sentences Neuro General: patient oriented x3 Psych Appearance: well kempt Speech and movement: Clear speech present Affect: normal affect Attitude: cooperative Thought process: Normal thought process present Thought content: Normal thought content present Insight: Fair insight present (Psych) Judgement: Fair judgement present (Psych) Telehealth Telehealth Telehealth Platform: [employer] Temperature Management Location of provider rendering services: practice address Location of patient: address on file Patient Identification confirmed using: Name, : Yes Telehealth method: video Patient verbally consented to treatment: Yes Patient verbally consented to billing insurance company: Yes Patient informed of any privacy concerns related to visit: Yes Minutes spent on Phone/Video with Pt.: 15 Assessment & Plan Assessment & Plan (1) Sensation of pressure in bladder area: Code(s): R39.89 - Other symptoms and signs involving the genitourinary system Category: Medical (2) Dysuria: Code(s): R30.0 - Dysuria Category: Medical Plan We discussed potential causes of lower urinary tract symptoms patient was experiencing. We discussed nursing visit to further assess urine with urinalysis as well as microgen. We discussed worsening symptoms. Discussed, educated, and stressed the importance of adequate hydration relation to lower urinary tract symptoms as well as overall health and well-being. We discussed bladder triggers/irritants. Follow-up next available in office nurse visit as discussed. Follow-up with provider in 1-2 months with [facility]; or sooner with any issues, concerns, and or questions. Patient Instructions: The patient had an opportunity to ask questions regarding the treatment plan. All questions were answered. Physical exam, labs, and imaging were discussed and reviewed in detail. As well as risks, benefits, and discussion of treatment choices. No major barriers to understanding were identified. The patient expressed understanding and agreement with the above treatment plan. The patient was made aware they should contact our office by phone for worsening of their current condition, the appearance of new symptoms, or with any questions or concerns. Compliance is encouraged with any medications and follow up testing that is ordered. It is a privilege to be allowed the opportunity to participate in? your urological care.? Again, if you have any questions or concerns If you have any questions or concerns please do not hesitate to contact me. The office is [phone]. This note is constructed using voice recognition software. While every effort has been made to ensure accuracy cardiovascular invasive specialist errors may have been included. Yours sincerely, Lisa Thurman, ASSESSMENT COUNSELOR-BC Coding Level of Care Code Tele Est Pt Level 3 (97819) Diagnoses Sensation of pressure in bladder area R39.89 Dysuria R30.0
--- OUTSIDE RECORDS SUMMARY | 2024-09-02 17:18 | XMS_ITS | Encounter Summary ---
Author Organization [employer] Address [address] [place] [address] Care Team Providers Care Kindergarten Aide Name Role Phone Unavailable Primary Care Provider Unavailabl e Encounter Details Date Type Department Care Team (Latest Contact Info) Description 07/09/2018 Abstract [facility] CONVERSIONS Dental, Provider, DDS Social [...]
--- OUTSIDE RECORDS SUMMARY | 2024-09-02 17:18 | XMS_ITS | Clinical Summary ---
Author Organization [employer] Address [address] [place] [address] [address] [place] [address] Care Team Providers Care Intake Coordinator Name Role Phone Unavailable Primary Care Provider [...]
--- OUTSIDE RECORDS SUMMARY | 2024-09-02 17:19 | XMS_ITS | Clinical Summary ---
Author Organization [facility] Address [address] [place] [address] Care Team Providers Care Locomotive Switch Operator Name Role Phone Chuck Davila MD Primary Care Provider [phone]- [phone] Allergies Active Allergy Reactions Criticality Noted Date [...] age to complete this topic Care Teams Locomotive Switch Operator Relationship Specialty Start Date End Date Chuck Davila MD [address] [place] [address] [place] [id number] PCP - General Internal Medicine 04/07/23
--- OUTSIDE RECORDS SUMMARY | 2024-09-02 17:19 | XMS_ITS | Clinical Summary ---
Author Organization Unknown Care Team Providers Care Sand Mill Operator Name Role Phone FELIPE GAMBOA, BETHANY Unavailable Unavailable ROLAN OLIVA, ANIA Unavailable Unavailable JOSE MIGUEL PASTOR, DANTE Unavailable Unavailable Payers Payer Name Policy Type Policy Number Effective Date Expira tion Date [facility] ([facility] [id number] MEDICAID [facility] [id number] Problems Condition Name Condition Details Condition Category [...] 2-08 00:00: 00 08-13 23:59 :00 No [id number] 2 puff EVERY 6 HOURS 2 puff EVERY 6 HOURS (route: inhalation ) Med Classific ation: Respirato ry Therapy Agents bisacodyl 5 mg tablet,cecile yed release 2-08 00:00: 00 08-13 23:59 :00 No [id number] 1 tablet EVERY AM 1 tablet EVERY AM (route: oral) Med Classific ation: Gastroint estinal Therapy Agents bupropion HCl SR 150 mg tablet,12 hr sustained-r elease 2-08 00:00: 00 08-13 23:59 :00 No [id number] 1 tablet EVERY AM 1 tablet EVERY AM (route: oral) Med Classific ation: Central Nervous System Agents cholecalcif danelle (vitamin D3) 25 mcg (1,000 unit) tablet 2 00:00: 00 08-13 23:59 :00 No [id number] 1 tablet EVERY AM 1 tablet EVERY AM (route: oral) Med Classific ation: Electroly te Balance-N utritiona l Products clonazepam 1 mg tablet 208 00:00: 00 08-13 23:59 :00 No [id number] 1 tablet 3 TIMES DAILY 1 tablet 3 TIMES DAILY (route: oral) Med Classific ation: Central Nervous System Agents Dexilant 60 mg capsule, delayed release 2-08 00:00: 00 08-13 23:59 :00 No [id number] 1 capsule EVERY AM 1 capsule EVERY AM (route: oral) Med Classific ation: Gastroint estinal Therapy Agents famotidine 40 mg tablet 2-08 00:00: 00 08-13 23:59 :00 No [id number] 1 tablet 2 TIMES DAILY 1 tablet 2 TIMES DAILY (route: oral) Med Classific ation: Gastroint estinal Therapy Agents gabapentin 300 mg capsule 2-08 00:00: 00 08-13 23:59 :00 No [id number] 1 capsule 3 TIMES DAILY 1 capsule 3 TIMES DAILY (route: oral) Med Classific ation: Central Nervous System Agents hydroxyzine HCl 25 mg tablet 2-08 00:00: 00 08-13 23:59 :00 No [id number] 1 tablet EVERY 6 HOURS 1 tablet EVERY 6 HOURS (route: oral) Med Classific ation: Central Nervous System Agents ibuprofen 400 mg tablet 2-08 00:00: 00 08-13 23:59 :00 No [id number] 1 tablet EVERY 6 HOURS 1 tablet EVERY 6 HOURS (route: oral) Med Classific ation: Analgesic , Anti-infl ammatory or Antipyret ic lamotrigine 100 mg tablet 2-08 00:00: 00 08-13 23:59 :00 No [id number] 1 tablet 2 TIMES DAILY 1 tablet 2 TIMES DAILY (route: oral) Med Classific ation: Central Nervous System Agents Lidocare 4 % topical patch 2-08 00:00: 00 08-13 23:59 :00 No [id number] 1 adhesiv e patch, medicat ed 2 TIMES DAILY 1 adhesive patch, medicated 2 TIMES DAILY (route: topical) Med Classific ation: Dermatolo gical Miebo (PF) 100 % eye drops 2-08 00:00: 00 08-13 23:59 :00 No [id number] 1 drops 3 TIMES DAILY 1 drops 3 TIMES DAILY (route: ophthalmic (eye)) Med Classific ation: Ophthalmi c Agents olanzapine 10 mg tablet 2-08 00:00: 00 08-13 23:59 :00 No [id number] 1 tablet BEDTIME 1 tablet BEDTIME (route: oral) Med Classific ation: Central Nervous System Agents ondansetron 8 mg disintegrat ing tablet 2-08 00:00: 00 08-13 23:59 :00 No [id number] 1 tablet EVERY OTHER DAY 1 tablet EVERY OTHER DAY (route: oral) Med Classific ation: Gastroint estinal Therapy Agents oxybutynin chloride 5 mg tablet 2-08 00:00: 00 08-13 23:59 :00 No [id number] 1 tablet EVERY AM 1 tablet EVERY AM (route: oral) Med Classific ation: Genitouri nary Therapy prazosin 1 mg capsule 2-08 00:00: 00 08-13 23:59 :00 No [id number] 1 capsule BEDTIME 1 capsule BEDTIME (route: oral) Med Classific ation: Cardiovas cular Therapy Agents Restasis 0.05 % eye drops in a dropperette 2-08 00:00: 00 08-13 23:59 :00 No [id number] 1 dropper ette 2 TIMES DAILY 1 dropperett e 2 TIMES DAILY (route: ophthalmic (eye)) Med Classific ation: Ophthalmi c Agents simethicone 80 mg chewable tablet 2-08 00:00: 00 08-13 23:59 :00 No [id number] 1 tablet 4 TIMES DAILY 1 tablet 4 TIMES DAILY (route: oral) Med Classific ation: Gastroint estinal Therapy Agents sumatriptan 50 mg tablet 2-08 00:00: 00 08-13 23:59 :00 No [id number] 1 tablet BEDTIME 1 tablet BEDTIME (route: oral) Med Classific ation: Central Nervous System Agents Synthroid 50 mcg tablet 2-08 00:00: 00 08-13 23:59 :00 No [id number] 1 tablet EVERY AM 1 tablet EVERY AM (route: oral) Med Classific ation: Endocrine trazodone 50 mg tablet 2-08 00:00: 00 08-13 23:59 :00 No [id number] 1 tablet BEDTIME 1 tablet BEDTIME (route: oral) Med Classific ation: Central Nervous System Agents Xiidra 5 % eye drops in a dropperette 2-08 00:00: 00 08-13 23:59 :00 No [id number] 1 dropper ette, single- use drop dispens er 2 TIMES DAILY 1 dropperett e, single-use drop dispenser 2 TIMES DAILY (route: ophthalmic (eye)) Med Classific ation: Ophthalmi c Agents amitriptyli ne 50 mg tablet 08-21 00:00: 00 Yes [id number] 1 tablet DAILY 1 tablet DAILY (route: oral) Med Classific ation: Central Nervous System Agents bisacodyl 5 mg tablet,cecile yed release 08-21 00:00: 00 Yes [id number] 1 tablet 2 TIMES DAILY 1 tablet 2 TIMES DAILY (route: oral) Med Classific ation: Gastroint estinal Therapy Agents bupropion HCl XL 150 mg 24 hr tablet, extended release 08-21 00:00: 00 Yes [id number] 1 tablet EVERY AM 1 tablet EVERY AM (route: oral) Med Classific ation: Central Nervous System Agents cimetidine 800 mg tablet 08-21 00:00: 00 Yes [id number] 1 tablet 2 TIMES DAILY 1 tablet 2 TIMES DAILY (route: oral) Med Classific ation: Gastroint estinal Therapy Agents clonazepam 1 mg tablet 08-21 00:00: 00 Yes [id number] 1 tablet 3 TIMES DAILY 1 tablet 3 TIMES DAILY (route: oral) Med Classific ation: Central Nervous System Agents Dexilant 60 mg capsule, delayed release 08-21 00:00: 00 Yes [id number] 1 capsule EVERY AM 1 capsule EVERY AM (route: oral) Med Classific ation: Gastroint estinal Therapy Agents diclofenac sodium 75 mg tablet,cecile yed release 08-21 00:00: 00 Yes [id number] 1 tablet 2 TIMES DAILY 1 tablet 2 TIMES DAILY (route: oral) Med Classific ation: Analgesic , Anti-infl ammatory or Antipyret ic doxepin 10 mg capsule 08-21 00:00: 00 Yes [id number] 1 capsule BEDTIME 1 capsule BEDTIME (route: oral) Med Classific ation: Central Nervous System Agents famotidine 40 mg tablet 08-21 00:00: 00 Yes [id number] 1 tablet 2 TIMES DAILY 1 tablet 2 TIMES DAILY (route: oral) Med Classific ation: Gastroint estinal Therapy Agents ferrous sulfate 325 mg (65 mg iron) tablet 08-21 00:00: 00 Yes [id number] 1 tablet DAILY 1 tablet DAILY (route: oral) Med Classific ation: Electroly te Balance-N utritiona l Products gabapentin 300 mg capsule 08-21 00:00: 00 Yes [id number] 1 capsule 3 TIMES DAILY 1 capsule 3 TIMES DAILY (route: oral) Med Classific ation: Central Nervous System Agents levothyroxi ne 50 mcg tablet 08-21 00:00: 00 Yes [id number] 1 tablet EVERY AM 1 tablet EVERY AM (route: oral) Med Classific ation: Endocrine ondansetron 8 mg disintegrat ing tablet 08-21 00:00: 00 Yes [id number] 1 tablet BEDTIME 1 tablet BEDTIME (route: oral) Med Classific ation: Gastroint estinal Therapy Agents oxybutynin chloride ER 10 mg tablet,exte nded release 24 hr 08-21 00:00: 00 Yes [id number] 1 tablet EVERY AM 1 tablet EVERY AM (route: oral) Med Classific ation: Genitouri nary Therapy phenazopyri dine 200 mg tablet 08-21 00:00: 00 Yes [id number] 1 tablet 3 TIMES DAILY 1 tablet 3 TIMES DAILY (route: oral) Med Classific ation: Genitouri nary Therapy sertraline 50 mg tablet 08-21 00:00: 00 Yes [id number] 1 tablet EVERY AM 1 tablet EVERY AM (route: oral) Med Classific ation: Central Nervous System Agents sumatriptan 50 mg tablet 08-21 00:00: 00 Yes [id number] 1 tablet DAILY 1 tablet DAILY (route: oral) Med Classific ation: Central Nervous System Agents trazodone 50 mg tablet 08-21 00:00: 00 Yes [id number] 1 tablet BEDTIME 1 tablet BEDTIME (route: [...] AWARENESS FOR SAFETY AND WILL NOTIFY CLINICAL RD SCIENTIST AND PHYSICIAN/PROVIDER WITH ANY CHANGE IN CONDITION. [code = SKILLED NURSE WILL MAINTAIN SITUATIONAL AWARENESS FOR SAFETY AND WILL NOTIFY CLINICAL RD SCIENTIST AND PHYSICIAN/PROVIDER WITH ANY CHANGE IN CONDITION.] [...] OF HOUSING AND SOCIAL SUPPORTS. [code = COMMISSIONS SPECIALIST TO EVALUATE PATIENT FOR NEED OF HOUSING AND SOCIAL SUPPORTS.] Goal Patient Goal - I WANT TO STA Y SAFE Goal Provider Goal - A PLAN OF CARE WILL BE ESTABLISHED THAT MEETS PATIENT'S USP NEEDS AND INCLUDES PATIENT GOAL FOR HOME [...] THROUGHOUT THE EPISODE. Goal Provider Goal - COMMISSIONS SPECIALIST TO COMPLETE EVALUATION TO ADDRESS THE PATIENTS SOCIAL AND EMOTIONAL FACTORS AND/OR WRITTEN PLAN OF TREATMENT ESTABLISHED FOR THE PHYSICIAN'S SIGNATURE. Encounters Start Date/Time End Date/Time Encounter Type Admission Type Attending [facility] Care Department Encounter ID Discharge Date Discharge Status Discharge Condition Discharge Reason Percent Goals Met 2024-08-21 00:00:00 2024-10-19 00:00:00 Outpatient DANTE VERAS [facility] [id number] 100.0 0
--- OUTSIDE RECORDS SUMMARY | 2024-09-02 17:19 | XMS_ITS | Clinical Summary ---
Author Organization [facility] Address [address] [place] [address] Care Team Providers Care Set Up And Lay Out Inspector Name Role Phone Chuck Davila MD Primary Care Provider [phone] Surgical History Surgery Date Site/Laterality Comments SECTION PROCEDURE: SECTION TUBAL LIGATION PROCEDURE:TUBAL LIGATION MASTECTOMY PROCEDURE:MASTECTOMY COLONOSCOPY PROCEDURE:COLONOSCOPY HYSTERECTOMY PROCEDURE:HYSTERECTOMY Medical History Medical History Date Comments Breast cancer (CMS/HCC V24, CMS/FORMERLY [facility] V28) DX:Breast cancer (HCC) Disease of thyroid [...] age to complete this topic Care Teams Set Up And Lay Out Inspector Relationship Specialty Start Date End Date Chuck Davila MD [address] [place] [address] Dr [address] ANJU Huerta PCP - General 04/07/23
--- OUTSIDE RECORDS SUMMARY | 2024-09-02 17:19 | XMS_ITS | Clinical Summary ---
Author Organization Unknown Care Team Providers Care Certified Master Locksmith Name Role Phone FELIPE GAMBOA, BETHANY Unavailable Unavailable ROLAN OLIVA, ANIA Unavailable Unavailable JOSE MIGUEL PASTOR, DANTE Unavailable Unavailable Payers Payer Name Policy Type Policy Number Effective Date Expira tion Date [facility] [place] [place] [facility] [id number] MEDICAID [facility] [id number] Problems Condition Name Condition Details Condition Category [...] 2-08 00:00: 00 08-13 23:59 :00 No [id number] 2 puff EVERY 6 HOURS 2 puff EVERY 6 HOURS (route: inhalation ) Med Classific ation: Respirato ry Therapy Agents bisacodyl 5 mg tablet,cecile yed release 2-08 00:00: 00 08-13 23:59 :00 No [id number] 1 tablet EVERY AM 1 tablet EVERY AM (route: oral) Med Classific ation: Gastroint estinal Therapy Agents bupropion HCl SR 150 mg tablet,12 hr sustained-r elease 2-08 00:00: 00 08-13 23:59 :00 No [id number] 1 tablet EVERY AM 1 tablet EVERY AM (route: oral) Med Classific ation: Central Nervous System Agents cholecalcif danelle (vitamin D3) 25 mcg (1,000 unit) tablet 2 00:00: 00 08-13 23:59 :00 No [id number] 1 tablet EVERY AM 1 tablet EVERY AM (route: oral) Med Classific ation: Electroly te Balance-N utritiona l Products clonazepam 1 mg tablet 208 00:00: 00 08-13 23:59 :00 No [id number] 1 tablet 3 TIMES DAILY 1 tablet 3 TIMES DAILY (route: oral) Med Classific ation: Central Nervous System Agents Dexilant 60 mg capsule, delayed release 2-08 00:00: 00 08-13 23:59 :00 No [id number] 1 capsule EVERY AM 1 capsule EVERY AM (route: oral) Med Classific ation: Gastroint estinal Therapy Agents famotidine 40 mg tablet 2-08 00:00: 00 08-13 23:59 :00 No [id number] 1 tablet 2 TIMES DAILY 1 tablet 2 TIMES DAILY (route: oral) Med Classific ation: Gastroint estinal Therapy Agents gabapentin 300 mg capsule 2-08 00:00: 00 08-13 23:59 :00 No [id number] 1 capsule 3 TIMES DAILY 1 capsule 3 TIMES DAILY (route: oral) Med Classific ation: Central Nervous System Agents hydroxyzine HCl 25 mg tablet 2-08 00:00: 00 08-13 23:59 :00 No [id number] 1 tablet EVERY 6 HOURS 1 tablet EVERY 6 HOURS (route: oral) Med Classific ation: Central Nervous System Agents ibuprofen 400 mg tablet 2-08 00:00: 00 08-13 23:59 :00 No [id number] 1 tablet EVERY 6 HOURS 1 tablet EVERY 6 HOURS (route: oral) Med Classific ation: Analgesic , Anti-infl ammatory or Antipyret ic lamotrigine 100 mg tablet 2-08 00:00: 00 08-13 23:59 :00 No [id number] 1 tablet 2 TIMES DAILY 1 tablet 2 TIMES DAILY (route: oral) Med Classific ation: Central Nervous System Agents Lidocare 4 % topical patch 2-08 00:00: 00 08-13 23:59 :00 No [id number] 1 adhesiv e patch, medicat ed 2 TIMES DAILY 1 adhesive patch, medicated 2 TIMES DAILY (route: topical) Med Classific ation: Dermatolo gical Miebo (PF) 100 % eye drops 2-08 00:00: 00 08-13 23:59 :00 No [id number] 1 drops 3 TIMES DAILY 1 drops 3 TIMES DAILY (route: ophthalmic (eye)) Med Classific ation: Ophthalmi c Agents olanzapine 10 mg tablet 2-08 00:00: 00 08-13 23:59 :00 No [id number] 1 tablet BEDTIME 1 tablet BEDTIME (route: oral) Med Classific ation: Central Nervous System Agents ondansetron 8 mg disintegrat ing tablet 2-08 00:00: 00 08-13 23:59 :00 No [id number] 1 tablet EVERY OTHER DAY 1 tablet EVERY OTHER DAY (route: oral) Med Classific ation: Gastroint estinal Therapy Agents oxybutynin chloride 5 mg tablet 2-08 00:00: 00 08-13 23:59 :00 No [id number] 1 tablet EVERY AM 1 tablet EVERY AM (route: oral) Med Classific ation: Genitouri nary Therapy prazosin 1 mg capsule 2-08 00:00: 00 08-13 23:59 :00 No [id number] 1 capsule BEDTIME 1 capsule BEDTIME (route: oral) Med Classific ation: Cardiovas cular Therapy Agents Restasis 0.05 % eye drops in a dropperette 2-08 00:00: 00 08-13 23:59 :00 No [id number] 1 dropper ette 2 TIMES DAILY 1 dropperett e 2 TIMES DAILY (route: ophthalmic (eye)) Med Classific ation: Ophthalmi c Agents simethicone 80 mg chewable tablet 2-08 00:00: 00 08-13 23:59 :00 No [id number] 1 tablet 4 TIMES DAILY 1 tablet 4 TIMES DAILY (route: oral) Med Classific ation: Gastroint estinal Therapy Agents sumatriptan 50 mg tablet 2-08 00:00: 00 08-13 23:59 :00 No [id number] 1 tablet BEDTIME 1 tablet BEDTIME (route: oral) Med Classific ation: Central Nervous System Agents Synthroid 50 mcg tablet 2-08 00:00: 00 08-13 23:59 :00 No [id number] 1 tablet EVERY AM 1 tablet EVERY AM (route: oral) Med Classific ation: Endocrine trazodone 50 mg tablet 2-08 00:00: 00 08-13 23:59 :00 No [id number] 1 tablet BEDTIME 1 tablet BEDTIME (route: oral) Med Classific ation: Central Nervous System Agents Xiidra 5 % eye drops in a dropperette 2-08 00:00: 00 08-13 23:59 :00 No [id number] 1 dropper ette, single- use drop dispens er 2 TIMES DAILY 1 dropperett e, single-use drop dispenser 2 TIMES DAILY (route: ophthalmic (eye)) Med Classific ation: Ophthalmi c Agents amitriptyli ne 50 mg tablet 08-21 00:00: 00 Yes [id number] 1 tablet DAILY 1 tablet DAILY (route: oral) Med Classific ation: Central Nervous System Agents bisacodyl 5 mg tablet,cecile yed release 08-21 00:00: 00 Yes [id number] 1 tablet 2 TIMES DAILY 1 tablet 2 TIMES DAILY (route: oral) Med Classific ation: Gastroint estinal Therapy Agents bupropion HCl XL 150 mg 24 hr tablet, extended release 08-21 00:00: 00 Yes [id number] 1 tablet EVERY AM 1 tablet EVERY AM (route: oral) Med Classific ation: Central Nervous System Agents cimetidine 800 mg tablet 08-21 00:00: 00 Yes [id number] 1 tablet 2 TIMES DAILY 1 tablet 2 TIMES DAILY (route: oral) Med Classific ation: Gastroint estinal Therapy Agents clonazepam 1 mg tablet 08-21 00:00: 00 Yes [id number] 1 tablet 3 TIMES DAILY 1 tablet 3 TIMES DAILY (route: oral) Med Classific ation: Central Nervous System Agents Dexilant 60 mg capsule, delayed release 08-21 00:00: 00 Yes [id number] 1 capsule EVERY AM 1 capsule EVERY AM (route: oral) Med Classific ation: Gastroint estinal Therapy Agents diclofenac sodium 75 mg tablet,cecile yed release 08-21 00:00: 00 Yes [id number] 1 tablet 2 TIMES DAILY 1 tablet 2 TIMES DAILY (route: oral) Med Classific ation: Analgesic , Anti-infl ammatory or Antipyret ic doxepin 10 mg capsule 08-21 00:00: 00 Yes [id number] 1 capsule BEDTIME 1 capsule BEDTIME (route: oral) Med Classific ation: Central Nervous System Agents famotidine 40 mg tablet 08-21 00:00: 00 Yes [id number] 1 tablet 2 TIMES DAILY 1 tablet 2 TIMES DAILY (route: oral) Med Classific ation: Gastroint estinal Therapy Agents ferrous sulfate 325 mg (65 mg iron) tablet 08-21 00:00: 00 Yes [id number] 1 tablet DAILY 1 tablet DAILY (route: oral) Med Classific ation: Electroly te Balance-N utritiona l Products gabapentin 300 mg capsule 08-21 00:00: 00 Yes [id number] 1 capsule 3 TIMES DAILY 1 capsule 3 TIMES DAILY (route: oral) Med Classific ation: Central Nervous System Agents levothyroxi ne 50 mcg tablet 08-21 00:00: 00 Yes [id number] 1 tablet EVERY AM 1 tablet EVERY AM (route: oral) Med Classific ation: Endocrine ondansetron 8 mg disintegrat ing tablet 08-21 00:00: 00 Yes [id number] 1 tablet BEDTIME 1 tablet BEDTIME (route: oral) Med Classific ation: Gastroint estinal Therapy Agents oxybutynin chloride ER 10 mg tablet,exte nded release 24 hr 08-21 00:00: 00 Yes [id number] 1 tablet EVERY AM 1 tablet EVERY AM (route: oral) Med Classific ation: Genitouri nary Therapy phenazopyri dine 200 mg tablet 08-21 00:00: 00 Yes [id number] 1 tablet 3 TIMES DAILY 1 tablet 3 TIMES DAILY (route: oral) Med Classific ation: Genitouri nary Therapy sertraline 50 mg tablet 08-21 00:00: 00 Yes [id number] 1 tablet EVERY AM 1 tablet EVERY AM (route: oral) Med Classific ation: Central Nervous System Agents sumatriptan 50 mg tablet 08-21 00:00: 00 Yes [id number] 1 tablet DAILY 1 tablet DAILY (route: oral) Med Classific ation: Central Nervous System Agents trazodone 50 mg tablet 08-21 00:00: 00 Yes [id number] 1 tablet BEDTIME 1 tablet BEDTIME (route: [...] AWARENESS FOR SAFETY AND WILL NOTIFY CLINICAL DESIZING MACHINE OFFBEARER AND PHYSICIAN/PROVIDER WITH ANY CHANGE IN CONDITION. [code = SKILLED NURSE WILL MAINTAIN SITUATIONAL AWARENESS FOR SAFETY AND WILL NOTIFY CLINICAL DESIZING MACHINE OFFBEARER AND PHYSICIAN/PROVIDER WITH ANY CHANGE IN CONDITION.] [...] OF HOUSING AND SOCIAL SUPPORTS. [code = HAND COLLATOR TO EVALUATE PATIENT FOR NEED OF HOUSING AND SOCIAL SUPPORTS.] Goal Patient Goal - I WANT TO STA Y SAFE Goal Provider Goal - A PLAN OF CARE WILL BE ESTABLISHED THAT MEETS PATIENT'S CORRECTION NEEDS AND INCLUDES PATIENT GOAL FOR HOME [...] THROUGHOUT THE EPISODE. Goal Provider Goal - HAND COLLATOR TO COMPLETE EVALUATION TO ADDRESS THE PATIENTS SOCIAL AND EMOTIONAL FACTORS AND/OR WRITTEN PLAN OF TREATMENT ESTABLISHED FOR THE PHYSICIAN'S SIGNATURE. Encounters Start Date/Time End Date/Time Encounter Type Admission Type Attending [facility] Care Department Encounter ID Discharge Date Discharge Status Discharge Condition Discharge Reason Percent Goals Met 2024-08-21 00:00:00 2024-10-19 00:00:00 Outpatient DANTE VERAS [facility] [id number] 100.0 0
== END 2024-09-02 16:03 | disposition home or self-care (01) ==
LOC: HO.HUSH 15:52
PROVIDERS: PCP Internal Medicine; Visit Provider Nurse Practitioner Family
DX: R39.89 Other symptoms and signs involving the genitourinary system (principal); R30.0 Dysuria
CPT/HCPCS: 99213

== ENCOUNTER → 2024-09-02 15:52 | Outpatient (BNVA) | payer OTHER, SELFPAY | PROVIDERS: PCP Internal Medicine; Visit Provider Nurse Practitioner Family ==

== ENCOUNTER 2024-09-03 14:29 | Outpatient (AMB) | payer OTHER, SELFPAY ==
--- NOTE | 2024-09-03 14:57 | AM.OFFVISNUR ---
Intake Visit Reasons: [facility]/ u/a urine in office Allergies Sulfa (Sulfonamide Antibiotics) Allergy (Severe, Verified 09/02/24 20:32) Itching codeine [CODEINE] Allergy (Intermediate, Verified 09/02/24 20:32) ITCHING hydroxychloroquine [From PLAQUENIL] Allergy (Intermediate, Verified 09/02/24 20:32) VOMITING morphine [MORPHINE] Allergy (Intermediate, Verified 09/02/24 20:32) ITCHING Estrogens Allergy (Mild, Verified 09/02/24 20:32) Unknown levothyroxine sodium Allergy (Unknown, Verified 09/02/24 20:32) rash,throat closes prednisone Allergy (Unknown, Verified 09/02/24 20:32) Unknown Corticosteroids (Glucocorticoids) [CORTICOSTEROIDS (GLUCOCORTICOIDS)] Adverse Reaction (Severe, Verified 09/02/24 20:32) DIFFICULTY BREATHING escitalopram [From Lexapro] Adverse Reaction (Severe, Verified 09/02/24 20:32) seizure meloxicam Adverse Reaction (Severe, Verified 09/02/24 20:32) Gastrointestinal Upset tadalafil [From Cialis] Adverse Reaction (Intermediate, Verified 09/02/24 20:32) Nausea and Vomiting acetaminophen [Percocet] Adverse Reaction (Unknown, Verified 09/02/24 20:32) Unknown duloxetine Adverse Reaction (Unknown, Verified 09/02/24 20:32) Unknown fluconazole Adverse Reaction (Unknown, Verified 09/02/24 20:32) Itch, pain, Nursing Note Patient presents to the office today to provide a urine sample for a [facility] test. Offered american sign language interpreter, but patient declined and daughter was present for translation. Patient signed order form and clean catch sample given. Sample sent to [facility] lab via [facility]. Advised patient that the results can take up to a week to come back. Urine dipped in office showing (-) nitrites, wbcs, or blood. Lisa Thurman NP notified of results. Will call patient with plan once [facility] results come in. Results AMB Urinalysis, Automated UA Leukoctes 0 Kristie/uL Last Edit by Jessica Solomon RN on 09/03/24 14:57 UA Nitrite Negative Last Edit by Jessica Solomon RN on 09/03/24 14:57 UA Urobilinogen 0.2 mg/dL Last Edit by Jessica Solomon RN on 09/03/24 14:57 UA Protein 0 mg/dL Last Edit by Jessica Solomon RN on 09/03/24 14:57 UA pH 7.0 Last Edit by Jessica Solomno RN on 09/03/24 14:57 UA Blood 0 Josue/uL Last Edit by Jessica Solomon RN on 09/03/24 14:57 UA Specific [place] 1.0 Last Edit by Jessica Solomon RN on 09/03/24 14:57 UA Ketone Negative Last Edit by Jessica Solomon RN on 09/03/24 14:57 UA Bilirubin 0 mg/dL Last Edit by Jessica Solomon RN on 09/03/24 14:57 UA Glucose 0 mg/dL Last Edit by Jessica Solomon RN on 09/03/24 14:57 Assessment & Plan Assessment & Plan Orders: Orders AMB Urinalysis Automated Today Z13.9 - Encounter for screening, unspecified Coding
--- OUTSIDE RECORDS SUMMARY | 2024-09-03 15:42 | XMS_ITS | Encounter Summary ---
Author Organization [employer] Address [address] [place] [address] Care Team Providers Care Painter Touch Up Name Role Phone Unavailable Primary Care Provider Unavailabl e Encounter Details Date Type Department Care Team (Latest Contact Info) Description 07/09/2018 Abstract [facility] CONVERSIONS Dental, Provider, DDS Social History [...]
--- OUTSIDE RECORDS SUMMARY | 2024-09-03 15:42 | XMS_ITS | Clinical Summary ---
Author Organization [employer] Address [address] [place] [address] [address] [place] [address] Care Team Providers Care Open Hearth Helper Name Role Phone Unavailable Primary Care Provider [...]
--- OUTSIDE RECORDS SUMMARY | 2024-09-03 15:43 | XMS_ITS | Clinical Summary ---
Author Organization Unknown Care Team Providers Care Shuttle Operator Name Role Phone FELIPE GAMBOA, BETHANY Unavailable Unavailable ROLAN OLIVA, ANIA Unavailable Unavailable JOSE MIGUEL PASTOR, DANTE Unavailable Unavailable Payers Payer Name Policy Type Policy Number Effective Date Expira tion Date [facility] ([facility] [id number] MEDICAID [facility] [id number] Problems Condition Name Condition Details Condition Category [...] 2-08 00:00: 00 08-13 23:59 :00 No [id number] 2 puff EVERY 6 HOURS 2 puff EVERY 6 HOURS (route: inhalation ) Med Classific ation: Respirato ry Therapy Agents bisacodyl 5 mg tablet,cecile yed release 2-08 00:00: 00 08-13 23:59 :00 No [id number] 1 tablet EVERY AM 1 tablet EVERY AM (route: oral) Med Classific ation: Gastroint estinal Therapy Agents bupropion HCl SR 150 mg tablet,12 hr sustained-r elease 2-08 00:00: 00 08-13 23:59 :00 No [id number] 1 tablet EVERY AM 1 tablet EVERY AM (route: oral) Med Classific ation: Central Nervous System Agents cholecalcif danelle (vitamin D3) 25 mcg (1,000 unit) tablet 2 00:00: 00 08-13 23:59 :00 No [id number] 1 tablet EVERY AM 1 tablet EVERY AM (route: oral) Med Classific ation: Electroly te Balance-N utritiona l Products clonazepam 1 mg tablet 208 00:00: 00 08-13 23:59 :00 No [id number] 1 tablet 3 TIMES DAILY 1 tablet 3 TIMES DAILY (route: oral) Med Classific ation: Central Nervous System Agents Dexilant 60 mg capsule, delayed release 2-08 00:00: 00 08-13 23:59 :00 No [id number] 1 capsule EVERY AM 1 capsule EVERY AM (route: oral) Med Classific ation: Gastroint estinal Therapy Agents famotidine 40 mg tablet 2-08 00:00: 00 08-13 23:59 :00 No [id number] 1 tablet 2 TIMES DAILY 1 tablet 2 TIMES DAILY (route: oral) Med Classific ation: Gastroint estinal Therapy Agents gabapentin 300 mg capsule 2-08 00:00: 00 08-13 23:59 :00 No [id number] 1 capsule 3 TIMES DAILY 1 capsule 3 TIMES DAILY (route: oral) Med Classific ation: Central Nervous System Agents hydroxyzine HCl 25 mg tablet 2-08 00:00: 00 08-13 23:59 :00 No [id number] 1 tablet EVERY 6 HOURS 1 tablet EVERY 6 HOURS (route: oral) Med Classific ation: Central Nervous System Agents ibuprofen 400 mg tablet 2-08 00:00: 00 08-13 23:59 :00 No [id number] 1 tablet EVERY 6 HOURS 1 tablet EVERY 6 HOURS (route: oral) Med Classific ation: Analgesic , Anti-infl ammatory or Antipyret ic lamotrigine 100 mg tablet 2-08 00:00: 00 08-13 23:59 :00 No [id number] 1 tablet 2 TIMES DAILY 1 tablet 2 TIMES DAILY (route: oral) Med Classific ation: Central Nervous System Agents Lidocare 4 % topical patch 2-08 00:00: 00 08-13 23:59 :00 No [id number] 1 adhesiv e patch, medicat ed 2 TIMES DAILY 1 adhesive patch, medicated 2 TIMES DAILY (route: topical) Med Classific ation: Dermatolo gical Miebo (PF) 100 % eye drops 2-08 00:00: 00 08-13 23:59 :00 No [id number] 1 drops 3 TIMES DAILY 1 drops 3 TIMES DAILY (route: ophthalmic (eye)) Med Classific ation: Ophthalmi c Agents olanzapine 10 mg tablet 2-08 00:00: 00 08-13 23:59 :00 No [id number] 1 tablet BEDTIME 1 tablet BEDTIME (route: oral) Med Classific ation: Central Nervous System Agents ondansetron 8 mg disintegrat ing tablet 2-08 00:00: 00 08-13 23:59 :00 No [id number] 1 tablet EVERY OTHER DAY 1 tablet EVERY OTHER DAY (route: oral) Med Classific ation: Gastroint estinal Therapy Agents oxybutynin chloride 5 mg tablet 2-08 00:00: 00 08-13 23:59 :00 No [id number] 1 tablet EVERY AM 1 tablet EVERY AM (route: oral) Med Classific ation: Genitouri nary Therapy prazosin 1 mg capsule 2-08 00:00: 00 08-13 23:59 :00 No [id number] 1 capsule BEDTIME 1 capsule BEDTIME (route: oral) Med Classific ation: Cardiovas cular Therapy Agents Restasis 0.05 % eye drops in a dropperette 2-08 00:00: 00 08-13 23:59 :00 No [id number] 1 dropper ette 2 TIMES DAILY 1 dropperett e 2 TIMES DAILY (route: ophthalmic (eye)) Med Classific ation: Ophthalmi c Agents simethicone 80 mg chewable tablet 2-08 00:00: 00 08-13 23:59 :00 No [id number] 1 tablet 4 TIMES DAILY 1 tablet 4 TIMES DAILY (route: oral) Med Classific ation: Gastroint estinal Therapy Agents sumatriptan 50 mg tablet 2-08 00:00: 00 08-13 23:59 :00 No [id number] 1 tablet BEDTIME 1 tablet BEDTIME (route: oral) Med Classific ation: Central Nervous System Agents Synthroid 50 mcg tablet 2-08 00:00: 00 08-13 23:59 :00 No [id number] 1 tablet EVERY AM 1 tablet EVERY AM (route: oral) Med Classific ation: Endocrine trazodone 50 mg tablet 2-08 00:00: 00 08-13 23:59 :00 No [id number] 1 tablet BEDTIME 1 tablet BEDTIME (route: oral) Med Classific ation: Central Nervous System Agents Xiidra 5 % eye drops in a dropperette 2-08 00:00: 00 08-13 23:59 :00 No [id number] 1 dropper ette, single- use drop dispens er 2 TIMES DAILY 1 dropperett e, single-use drop dispenser 2 TIMES DAILY (route: ophthalmic (eye)) Med Classific ation: Ophthalmi c Agents amitriptyli ne 50 mg tablet 08-21 00:00: 00 Yes [id number] 1 tablet DAILY 1 tablet DAILY (route: oral) Med Classific ation: Central Nervous System Agents bisacodyl 5 mg tablet,cecile yed release 08-21 00:00: 00 Yes [id number] 1 tablet 2 TIMES DAILY 1 tablet 2 TIMES DAILY (route: oral) Med Classific ation: Gastroint estinal Therapy Agents bupropion HCl XL 150 mg 24 hr tablet, extended release 08-21 00:00: 00 Yes [id number] 1 tablet EVERY AM 1 tablet EVERY AM (route: oral) Med Classific ation: Central Nervous System Agents cimetidine 800 mg tablet 08-21 00:00: 00 Yes [id number] 1 tablet 2 TIMES DAILY 1 tablet 2 TIMES DAILY (route: oral) Med Classific ation: Gastroint estinal Therapy Agents clonazepam 1 mg tablet 08-21 00:00: 00 Yes [id number] 1 tablet 3 TIMES DAILY 1 tablet 3 TIMES DAILY (route: oral) Med Classific ation: Central Nervous System Agents Dexilant 60 mg capsule, delayed release 08-21 00:00: 00 Yes [id number] 1 capsule EVERY AM 1 capsule EVERY AM (route: oral) Med Classific ation: Gastroint estinal Therapy Agents diclofenac sodium 75 mg tablet,cecile yed release 08-21 00:00: 00 Yes [id number] 1 tablet 2 TIMES DAILY 1 tablet 2 TIMES DAILY (route: oral) Med Classific ation: Analgesic , Anti-infl ammatory or Antipyret ic doxepin 10 mg capsule 08-21 00:00: 00 Yes [id number] 1 capsule BEDTIME 1 capsule BEDTIME (route: oral) Med Classific ation: Central Nervous System Agents famotidine 40 mg tablet 08-21 00:00: 00 Yes [id number] 1 tablet 2 TIMES DAILY 1 tablet 2 TIMES DAILY (route: oral) Med Classific ation: Gastroint estinal Therapy Agents ferrous sulfate 325 mg (65 mg iron) tablet 08-21 00:00: 00 Yes [id number] 1 tablet DAILY 1 tablet DAILY (route: oral) Med Classific ation: Electroly te Balance-N utritiona l Products gabapentin 300 mg capsule 08-21 00:00: 00 Yes [id number] 1 capsule 3 TIMES DAILY 1 capsule 3 TIMES DAILY (route: oral) Med Classific ation: Central Nervous System Agents levothyroxi ne 50 mcg tablet 08-21 00:00: 00 Yes [id number] 1 tablet EVERY AM 1 tablet EVERY AM (route: oral) Med Classific ation: Endocrine ondansetron 8 mg disintegrat ing tablet 08-21 00:00: 00 Yes [id number] 1 tablet BEDTIME 1 tablet BEDTIME (route: oral) Med Classific ation: Gastroint estinal Therapy Agents oxybutynin chloride ER 10 mg tablet,exte nded release 24 hr 08-21 00:00: 00 Yes [id number] 1 tablet EVERY AM 1 tablet EVERY AM (route: oral) Med Classific ation: Genitouri nary Therapy phenazopyri dine 200 mg tablet 08-21 00:00: 00 Yes [id number] 1 tablet 3 TIMES DAILY 1 tablet 3 TIMES DAILY (route: oral) Med Classific ation: Genitouri nary Therapy sertraline 50 mg tablet 08-21 00:00: 00 Yes [id number] 1 tablet EVERY AM 1 tablet EVERY AM (route: oral) Med Classific ation: Central Nervous System Agents sumatriptan 50 mg tablet 08-21 00:00: 00 Yes [id number] 1 tablet DAILY 1 tablet DAILY (route: oral) Med Classific ation: Central Nervous System Agents trazodone 50 mg tablet 08-21 00:00: 00 Yes [id number] 1 tablet BEDTIME 1 tablet BEDTIME (route: [...] AWARENESS FOR SAFETY AND WILL NOTIFY CLINICAL WOOD CALKER AND PHYSICIAN/PROVIDER WITH ANY CHANGE IN CONDITION. [code = SKILLED NURSE WILL MAINTAIN SITUATIONAL AWARENESS FOR SAFETY AND WILL NOTIFY CLINICAL WOOD CALKER AND PHYSICIAN/PROVIDER WITH ANY CHANGE IN CONDITION.] [...] OF HOUSING AND SOCIAL SUPPORTS. [code = CRYSTALLOGRAPHER TO EVALUATE PATIENT FOR NEED OF HOUSING AND SOCIAL SUPPORTS.] Goal Patient Goal - I WANT TO STA Y SAFE Goal Provider Goal - A PLAN OF CARE WILL BE ESTABLISHED THAT MEETS PATIENT'S HALF-WAY NEEDS AND INCLUDES PATIENT GOAL FOR HOME [...] THROUGHOUT THE EPISODE. Goal Provider Goal - CRYSTALLOGRAPHER TO COMPLETE EVALUATION TO ADDRESS THE PATIENTS SOCIAL AND EMOTIONAL FACTORS AND/OR WRITTEN PLAN OF TREATMENT ESTABLISHED FOR THE PHYSICIAN'S SIGNATURE. Encounters Start Date/Time End Date/Time Encounter Type Admission Type Attending [facility] Care Department Encounter ID Discharge Date Discharge Status Discharge Condition Discharge Reason Percent Goals Met 2024-08-21 00:00:00 2024-10-19 00:00:00 Outpatient DANTE VERAS [facility] [id number] 100.0 0
--- OUTSIDE RECORDS SUMMARY | 2024-09-03 15:43 | XMS_ITS | Clinical Summary ---
Author Organization Unknown Care Team Providers Care Director Of Social Work Name Role Phone FELIPE GAMBOA, BETHANY Unavailable Unavailable ROLAN OLIVA, ANIA Unavailable Unavailable JOSE MIGUEL PASTOR, DANTE Unavailable Unavailable Payers Payer Name Policy Type Policy Number Effective Date Expira tion Date [facility] [place] [place] [facility] [id number] MEDICAID [facility] [id number] Problems Condition Name Condition Details Condition Category [...] 2-08 00:00: 00 08-13 23:59 :00 No [id number] 2 puff EVERY 6 HOURS 2 puff EVERY 6 HOURS (route: inhalation ) Med Classific ation: Respirato ry Therapy Agents bisacodyl 5 mg tablet,cecile yed release 2-08 00:00: 00 08-13 23:59 :00 No [id number] 1 tablet EVERY AM 1 tablet EVERY AM (route: oral) Med Classific ation: Gastroint estinal Therapy Agents bupropion HCl SR 150 mg tablet,12 hr sustained-r elease 2-08 00:00: 00 08-13 23:59 :00 No [id number] 1 tablet EVERY AM 1 tablet EVERY AM (route: oral) Med Classific ation: Central Nervous System Agents cholecalcif danelle (vitamin D3) 25 mcg (1,000 unit) tablet 2 00:00: 00 08-13 23:59 :00 No [id number] 1 tablet EVERY AM 1 tablet EVERY AM (route: oral) Med Classific ation: Electroly te Balance-N utritiona l Products clonazepam 1 mg tablet 208 00:00: 00 08-13 23:59 :00 No [id number] 1 tablet 3 TIMES DAILY 1 tablet 3 TIMES DAILY (route: oral) Med Classific ation: Central Nervous System Agents Dexilant 60 mg capsule, delayed release 2-08 00:00: 00 08-13 23:59 :00 No [id number] 1 capsule EVERY AM 1 capsule EVERY AM (route: oral) Med Classific ation: Gastroint estinal Therapy Agents famotidine 40 mg tablet 2-08 00:00: 00 08-13 23:59 :00 No [id number] 1 tablet 2 TIMES DAILY 1 tablet 2 TIMES DAILY (route: oral) Med Classific ation: Gastroint estinal Therapy Agents gabapentin 300 mg capsule 2-08 00:00: 00 08-13 23:59 :00 No [id number] 1 capsule 3 TIMES DAILY 1 capsule 3 TIMES DAILY (route: oral) Med Classific ation: Central Nervous System Agents hydroxyzine HCl 25 mg tablet 2-08 00:00: 00 08-13 23:59 :00 No [id number] 1 tablet EVERY 6 HOURS 1 tablet EVERY 6 HOURS (route: oral) Med Classific ation: Central Nervous System Agents ibuprofen 400 mg tablet 2-08 00:00: 00 08-13 23:59 :00 No [id number] 1 tablet EVERY 6 HOURS 1 tablet EVERY 6 HOURS (route: oral) Med Classific ation: Analgesic , Anti-infl ammatory or Antipyret ic lamotrigine 100 mg tablet 2-08 00:00: 00 08-13 23:59 :00 No [id number] 1 tablet 2 TIMES DAILY 1 tablet 2 TIMES DAILY (route: oral) Med Classific ation: Central Nervous System Agents Lidocare 4 % topical patch 2-08 00:00: 00 08-13 23:59 :00 No [id number] 1 adhesiv e patch, medicat ed 2 TIMES DAILY 1 adhesive patch, medicated 2 TIMES DAILY (route: topical) Med Classific ation: Dermatolo gical Miebo (PF) 100 % eye drops 2-08 00:00: 00 08-13 23:59 :00 No [id number] 1 drops 3 TIMES DAILY 1 drops 3 TIMES DAILY (route: ophthalmic (eye)) Med Classific ation: Ophthalmi c Agents olanzapine 10 mg tablet 2-08 00:00: 00 08-13 23:59 :00 No [id number] 1 tablet BEDTIME 1 tablet BEDTIME (route: oral) Med Classific ation: Central Nervous System Agents ondansetron 8 mg disintegrat ing tablet 2-08 00:00: 00 08-13 23:59 :00 No [id number] 1 tablet EVERY OTHER DAY 1 tablet EVERY OTHER DAY (route: oral) Med Classific ation: Gastroint estinal Therapy Agents oxybutynin chloride 5 mg tablet 2-08 00:00: 00 08-13 23:59 :00 No [id number] 1 tablet EVERY AM 1 tablet EVERY AM (route: oral) Med Classific ation: Genitouri nary Therapy prazosin 1 mg capsule 2-08 00:00: 00 08-13 23:59 :00 No [id number] 1 capsule BEDTIME 1 capsule BEDTIME (route: oral) Med Classific ation: Cardiovas cular Therapy Agents Restasis 0.05 % eye drops in a dropperette 2-08 00:00: 00 08-13 23:59 :00 No [id number] 1 dropper ette 2 TIMES DAILY 1 dropperett e 2 TIMES DAILY (route: ophthalmic (eye)) Med Classific ation: Ophthalmi c Agents simethicone 80 mg chewable tablet 2-08 00:00: 00 08-13 23:59 :00 No [id number] 1 tablet 4 TIMES DAILY 1 tablet 4 TIMES DAILY (route: oral) Med Classific ation: Gastroint estinal Therapy Agents sumatriptan 50 mg tablet 2-08 00:00: 00 08-13 23:59 :00 No [id number] 1 tablet BEDTIME 1 tablet BEDTIME (route: oral) Med Classific ation: Central Nervous System Agents Synthroid 50 mcg tablet 2-08 00:00: 00 08-13 23:59 :00 No [id number] 1 tablet EVERY AM 1 tablet EVERY AM (route: oral) Med Classific ation: Endocrine trazodone 50 mg tablet 2-08 00:00: 00 08-13 23:59 :00 No [id number] 1 tablet BEDTIME 1 tablet BEDTIME (route: oral) Med Classific ation: Central Nervous System Agents Xiidra 5 % eye drops in a dropperette 2-08 00:00: 00 08-13 23:59 :00 No [id number] 1 dropper ette, single- use drop dispens er 2 TIMES DAILY 1 dropperett e, single-use drop dispenser 2 TIMES DAILY (route: ophthalmic (eye)) Med Classific ation: Ophthalmi c Agents amitriptyli ne 50 mg tablet 08-21 00:00: 00 Yes [id number] 1 tablet DAILY 1 tablet DAILY (route: oral) Med Classific ation: Central Nervous System Agents bisacodyl 5 mg tablet,cecile yed release 08-21 00:00: 00 Yes [id number] 1 tablet 2 TIMES DAILY 1 tablet 2 TIMES DAILY (route: oral) Med Classific ation: Gastroint estinal Therapy Agents bupropion HCl XL 150 mg 24 hr tablet, extended release 08-21 00:00: 00 Yes [id number] 1 tablet EVERY AM 1 tablet EVERY AM (route: oral) Med Classific ation: Central Nervous System Agents cimetidine 800 mg tablet 08-21 00:00: 00 Yes [id number] 1 tablet 2 TIMES DAILY 1 tablet 2 TIMES DAILY (route: oral) Med Classific ation: Gastroint estinal Therapy Agents clonazepam 1 mg tablet 08-21 00:00: 00 Yes [id number] 1 tablet 3 TIMES DAILY 1 tablet 3 TIMES DAILY (route: oral) Med Classific ation: Central Nervous System Agents Dexilant 60 mg capsule, delayed release 08-21 00:00: 00 Yes [id number] 1 capsule EVERY AM 1 capsule EVERY AM (route: oral) Med Classific ation: Gastroint estinal Therapy Agents diclofenac sodium 75 mg tablet,cecile yed release 08-21 00:00: 00 Yes [id number] 1 tablet 2 TIMES DAILY 1 tablet 2 TIMES DAILY (route: oral) Med Classific ation: Analgesic , Anti-infl ammatory or Antipyret ic doxepin 10 mg capsule 08-21 00:00: 00 Yes [id number] 1 capsule BEDTIME 1 capsule BEDTIME (route: oral) Med Classific ation: Central Nervous System Agents famotidine 40 mg tablet 08-21 00:00: 00 Yes [id number] 1 tablet 2 TIMES DAILY 1 tablet 2 TIMES DAILY (route: oral) Med Classific ation: Gastroint estinal Therapy Agents ferrous sulfate 325 mg (65 mg iron) tablet 08-21 00:00: 00 Yes [id number] 1 tablet DAILY 1 tablet DAILY (route: oral) Med Classific ation: Electroly te Balance-N utritiona l Products gabapentin 300 mg capsule 08-21 00:00: 00 Yes [id number] 1 capsule 3 TIMES DAILY 1 capsule 3 TIMES DAILY (route: oral) Med Classific ation: Central Nervous System Agents levothyroxi ne 50 mcg tablet 08-21 00:00: 00 Yes [id number] 1 tablet EVERY AM 1 tablet EVERY AM (route: oral) Med Classific ation: Endocrine ondansetron 8 mg disintegrat ing tablet 08-21 00:00: 00 Yes [id number] 1 tablet BEDTIME 1 tablet BEDTIME (route: oral) Med Classific ation: Gastroint estinal Therapy Agents oxybutynin chloride ER 10 mg tablet,exte nded release 24 hr 08-21 00:00: 00 Yes [id number] 1 tablet EVERY AM 1 tablet EVERY AM (route: oral) Med Classific ation: Genitouri nary Therapy phenazopyri dine 200 mg tablet 08-21 00:00: 00 Yes [id number] 1 tablet 3 TIMES DAILY 1 tablet 3 TIMES DAILY (route: oral) Med Classific ation: Genitouri nary Therapy sertraline 50 mg tablet 08-21 00:00: 00 Yes [id number] 1 tablet EVERY AM 1 tablet EVERY AM (route: oral) Med Classific ation: Central Nervous System Agents sumatriptan 50 mg tablet 08-21 00:00: 00 Yes [id number] 1 tablet DAILY 1 tablet DAILY (route: oral) Med Classific ation: Central Nervous System Agents trazodone 50 mg tablet 08-21 00:00: 00 Yes [id number] 1 tablet BEDTIME 1 tablet BEDTIME (route: [...] 10 DAYS (route: ) Alternate Route: TOME TURDY TABLETA POR V?A ORAL . Med Classific [...] AWARENESS FOR SAFETY AND WILL NOTIFY CLINICAL DEVULCANIZER HEAD AND PHYSICIAN/PROVIDER WITH ANY CHANGE IN CONDITION. [code = SKILLED NURSE WILL MAINTAIN SITUATIONAL AWARENESS FOR SAFETY AND WILL NOTIFY CLINICAL DEVULCANIZER HEAD AND PHYSICIAN/PROVIDER WITH ANY CHANGE IN CONDITION.] [...] OF HOUSING AND SOCIAL SUPPORTS. [code = INFANT NANNY TO EVALUATE PATIENT FOR NEED OF HOUSING [...] THROUGHOUT THE EPISODE. Goal Provider Goal - INFANT NANNY TO COMPLETE EVALUATION TO ADDRESS THE PATIENTS SOCIAL AND EMOTIONAL FACTORS AND/OR WRITTEN PLAN OF TREATMENT ESTABLISHED FOR THE PHYSICIAN'S SIGNATURE. Encounters Start Date/Time End Date/Time Encounter Type Admission Type Attending [facility] Care Department Encounter ID Discharge Date Discharge Status Discharge Condition Discharge Reason Percent Goals Met 2024-08-21 00:00:00 2024-10-19 00:00:00 Outpatient DANTE VERAS [facility] [id number] 100.0 0
--- OUTSIDE RECORDS SUMMARY | 2024-09-03 15:43 | XMS_ITS | Clinical Summary ---
Author Organization [facility] Address [address] [place] [address] Care Team Providers Care Registered Respiratory Therapist Name Role Phone Chuck Davila MD Primary Care Provider [phone]- [phone] Allergies Active Allergy Reactions Criticality Noted Date [...] age to complete this topic Care Teams Registered Respiratory Therapist Relationship Specialty Start Date End Date Chuck Davila MD [address] [place] [address] [place] [id number] PCP - General Internal Medicine 04/07/23
--- OUTSIDE RECORDS SUMMARY | 2024-09-03 15:43 | XMS_ITS | Clinical Summary ---
Author Organization [facility] Address [address] [place] [address] Care Team Providers Care Etl Informatica Architect Name Role Phone Chuck Davila MD Primary Care Provider Surgical History Surgery Date Site/Laterality Comments SECTION PROCEDURE: SECTION TUBAL LIGATION PROCEDURE:TUBAL LIGATION MASTECTOMY PROCEDURE:MASTECTOMY COLONOSCOPY PROCEDURE:COLONOSCOPY HYSTERECTOMY PROCEDURE:HYSTERECTOMY Medical History Medical History Date Comments Breast cancer (CMS/HCC V24, CMS/[facility] V28) DX:Breast cancer (HCC) Disease of [...] age to complete this topic Care Teams Etl Informatica Architect Relationship Specialty Start Date End Date Chuck Davila MD [address] [place] [address] Dr [address] ANJU Huerta PCP - General 04/07/23
== END 2024-09-04 07:51 | disposition home or self-care (01) ==
LOC: HO.HUSH 14:29
PROVIDERS: PCP Internal Medicine; Visit Provider Nurse Practitioner Family
DX: Z13.9 Encounter for screening, unspecified (principal)

== ENCOUNTER → 2024-09-03 14:29 | Outpatient (BNVA) | payer OTHER, SELFPAY | PROVIDERS: PCP Internal Medicine; Visit Provider Nurse Practitioner Family | DX: Z11.59 Encounter for screening for other viral diseases (principal) | CPT/HCPCS: 81003 ==

== ENCOUNTER 2024-09-09 13:25 | Outpatient (REF) | payer OTHER, SELFPAY ==
--- OUTSIDE RECORDS SUMMARY | 2024-09-09 13:47 | XMS_ITS | Encounter Summary ---
Author Organization [employer] Address [address] [facility] [address] [place] [address] Care Team Providers Care Hydrocrane Operator Name Role Phone Unavailable Primary Care Provider Unavailabl e Encounter Details Date Type Department Care Team (Latest Contact Info) Description 07/09/2018 Abstract [facility] CONVERSIONS Dental, Provider, DDS Social History Tobacco [...]
--- OUTSIDE RECORDS SUMMARY | 2024-09-09 13:47 | XMS_ITS | Clinical Summary ---
Author Organization [employer] Address [address] [place] [address] [address] [place] [address] Care Team Providers Care Chief School Finance Officer Name Role Phone Unavailable Primary Care Provider [...]
--- OUTSIDE RECORDS SUMMARY | 2024-09-09 13:47 | XMS_ITS | Clinical Summary ---
Author Organization [facility] Address [address] [place] [address] Care Team Providers Care Bulk Receiver Name Role Phone Chuck Davila MD Primary Care Provider [phone]- [phone] Allergies Active Allergy Reactions Criticality Noted Date Comments Codeine 06/09/2023 Levothyroxine 06/09/2023 Morphine 06/09/2023 Oxycodone 06/09/2023 Oxycodone-Acetaminophen 06/09/2023 Hydroxychloroquine 06/09/2023 Prednisone 06/09/2023 Tramadol 06/09/2023 Medications Medication Sig Dispensed Refills Start Date End Date Status amitriptyline (ELAVIL) tablet 50 mg TOME TRUDY TABLETA TODOS [place] ACOSTARSE FOR 30 DAYS 0 04/07/2023 [...] age to complete this topic Care Teams Bulk Receiver Relationship Specialty Start Date End Date Chuck Davila MD [address] [place] [address] [place] [address] PCP - General Internal Medicine 04/07/23
--- OUTSIDE RECORDS SUMMARY | 2024-09-09 13:47 | XMS_ITS | Clinical Summary ---
Author Organization [facility] Address [address] [place] [address] Care Team Providers Care Scooping Machine Tender Name Role Phone Chuck Davila MD Primary Care Provider Surgical History Surgery Date Site/Laterality Comments SECTION PROCEDURE: SECTION TUBAL LIGATION PROCEDURE:TUBAL LIGATION MASTECTOMY PROCEDURE:MASTECTOMY COLONOSCOPY PROCEDURE:COLONOSCOPY HYSTERECTOMY PROCEDURE:HYSTERECTOMY Medical History Medical History Date Comments Breast cancer (CMS/HCC V24, CMS/[facility] V28) DX:Breast cancer (HCC) Disease of thyroid [...] age to complete this topic Care Teams Scooping Machine Tender Relationship Specialty Start Date End Date Chuck Davila MD [address] [place] [address] Dr [address] ANJU Huerta PCP - General 04/07/23
[2024-09-09 14:33] LABS: Appearance Urine Clear; Color Urine Dark Yellow; Glucose Urine UA Negative (Negative); Leukocyte Esterase Urine Trace (Negative); Nitrite Urine Negative (Negative); PH 6.5 (5.0-9.0); UMIC TRIGGER UACC YES; Urine Blood Negative (Negative); Urine Ketones Trace mg/dL (Negative); Urine Protein Trace mg/dL (Neg-Trace)
[2024-09-09 14:37] LABS: Bacteria Urine None Seen (None Seen); Hyaline Casts Urine 0-2 /LPF (0-2); RBC Urine 0-2 /HPF (0-2); Squamous Epithelial Cell Urine 0-2 /HPF (0-2); WBC Urine 0-5 /HPF (0-5)
== END 2024-09-09 13:26 | disposition home or self-care (01) ==
LOC: HO.LAB 13:25
PROVIDERS: PCP Internal Medicine; Visit Provider Internal Medicine Endocrinology, Diabetes & Metabolism
DX: E05.90 Thyrotoxicosis, unspecified without thyrotoxic crisis or storm (principal)
CPT/HCPCS: 81001

== ENCOUNTER 2024-09-16 13:58 | Outpatient (AMB) | payer OTHER, SELFPAY ==
--- NOTE | 2024-09-16 14:00 | MHC.OFFVIS ---
Vital Signs 09/16/24 14:01 Height 5 ft 2 in Weight 110 lb 3.698 oz BMI 20.2 BP 120/68 Blood Pressure Location Lt brachial Position Sitting Pulse 70 Pulse Source Pulse Oximeter Intake Visit Reasons: f/u per/Aquillino/dizziness/Dyspnea Cytology Manager Required: Yes Cytology Manager Name: [id number] Allergies Sulfa (Sulfonamide Antibiotics) Allergy (Severe, Verified 09/02/24 20:32) Itching codeine [CODEINE] Allergy (Intermediate, Verified 09/02/24 20:32) ITCHING hydroxychloroquine [From PLAQUENIL] Allergy (Intermediate, Verified 09/02/24 20:32) VOMITING morphine [MORPHINE] Allergy (Intermediate, Verified 09/02/24 20:32) ITCHING Estrogens Allergy (Mild, Verified 09/02/24 20:32) Unknown levothyroxine sodium Allergy (Unknown, Verified 09/02/24 20:32) rash,throat closes prednisone Allergy (Unknown, Verified 09/02/24 20:32) Unknown Corticosteroids (Glucocorticoids) [CORTICOSTEROIDS (GLUCOCORTICOIDS)] Adverse Reaction (Severe, Verified 09/02/24 20:32) DIFFICULTY BREATHING escitalopram [From Lexapro] Adverse Reaction (Severe, Verified 09/02/24 20:32) seizure meloxicam Adverse Reaction (Severe, Verified 09/02/24 20:32) Gastrointestinal Upset tadalafil [From Cialis] Adverse Reaction (Intermediate, Verified 09/02/24 20:32) Nausea and Vomiting acetaminophen [Percocet] Adverse Reaction (Unknown, Verified 09/02/24 20:32) Unknown duloxetine Adverse Reaction (Unknown, Verified 09/02/24 20:32) Unknown fluconazole Adverse Reaction (Unknown, Verified 09/02/24 20:32) Itch, pain, Medication List - Last Reconciled 09/16/24 by Ian Mishra MD albuterol sulfate 90 mcg/actuation (Ventolin HFA) 2 puffs inhalation Q6H PRN bisacodyl 10 mg PO BEDTIME bupropion HCl XL 150 mg PO QAM cimetidine 800 mg PO BID clonazepam 1 mg PO TID PRN dexlansoprazole (Dexilant) 60 mg PO DAILY diclofenac sodium 75 mg PO BID famotidine 40 mg PO BID ferrous sulfate 324 mg PO DAILY gabapentin 300 mg PO TID lamotrigine 50 mg (2 x 25 mg) PO BEDTIME levothyroxine (Synthroid) 50 mcg PO DAILY nystatin 1 mL PO DAILY onabotulinumtoxinA (Botox) 200 units IM [id number] ondansetron HCl 8 mg PO BEDTIME PRN oxybutynin chloride ER 10 mg PO DAILY phenazopyridine 200 mg PO TID PRN sumatriptan succinate 50 mg PO DAILY PRN trazodone 50 mg PO BEDTIME PRN HPI Comments Details: Zara has been referred for cardiac consultation. In the past, she was referred for shortness of breath but echocardiogram then was unremarkable. Per last notes, it had resolved. Today, she states that she is again feeling short of breath at different times. No specific patterns and can happen essentially any time. With and without exertion. She also feels heart racing type sensations as well as feeling dizzy again in no specific patterns. These are all rheumatic symptoms that happen any time. Nothing clearly exertional. No previously documented cardiovascular issues. Has psychiatric issues including bipolar and recent suicidal ideation. [facility] Medical History Bipolar 1 disorder Chronic idiopathic constipation Depression Chronic pruritus Urticaria Vitamin D deficiency Polyarthralgia Small bowel motility disorder Dry mouth and eyes Seborrhea capitis in adult Bilateral sciatica Urinary frequency Abdominal pannus Positive sm/ENTRY LEVEL PARALEGAL antibody Family history of polyps in the colon Fracture of neck of left humerus Humeral head fracture Chronic gastritis Insomnia Hypothyroidism Seropositive rheumatoid arthritis Leukopenia Gingivitis History of breast cancer Estrogen receptor positive status [ER+] Ductal carcinoma in situ (DCIS) of left breast Autoimmune disorder PTSD (post-traumatic stress disorder) COVID-19 Bilateral knee pain Fibromyalgia Schatzki's ring Rheumatoid arthritis Small bowel motility disorder Osteoporosis Raynaud's disease without gangrene Bipolar depression Anxiety Primary insomnia Constipation Acquired hypothyroidism Systemic lupus erythematosus Left temporomandibular joint disorder, unspecified Surgical History Hx of abdominoplasty History of esophagogastroduodenoscopy (EGD) Hx of colonoscopy History of bilateral mastectomy History of total abdominal hysterectomy and bilateral salpingo-oophorectomy History of cholecystectomy History of tubal ligation History of section Family History Father Prostate cancer Hypertension Mother Breast cancer Hypertension Asthma Maternal Aunt Breast cancer Maternal Grandmother Colon cancer Maternal Aunt Breast cancer Sister Bone cancer Social History Household Members: Children Household Members Other:: 2 daughters and 3 dogs Housing: House Do you presently have visiting nurse or other home services: No Alcohol intake: never Comment: 5 min safety checks Patient Tobacco Use Status: Never used Tobacco Tobacco use type: Cigarette e-Cigarette/Vaping Use: Never Used Second Hand Smoke Exposure: No Advance Directives Date on File: 08/12/20 service: No Current occupational status: disabled Current occupational exposures/hazards: No Sexual orientation: Straight/Heterosexual Gender identity: Female Cognitive needs: Yes (cane) Hearing needs: No Vision needs: Yes (Glasses) Female Reproductive History Menstrual Age of Menarche: 10 Review of Systems Const Denies weakness ENT Reports dizziness Card Denies chest pain, Denies chest pain with activity, Denies syncope, Denies rapid heart rate, Denies pedal edema, Denies edema, Denies leg edema, Denies lightheadedness, Reports palpitations, Reports dyspnea, Denies dyspnea on exertion and Denies orthopnea Resp Denies cough, Reports dyspnea and Denies dyspnea on exertion GI Denies hematochezia and Denies change in stool character Musc Denies abnormal gait, Denies muscle cramps, Denies muscle weakness, Denies numbness, Denies radiating pain into limb and Denies tingling Neuro Denies abnormal gait, Reports dizziness, Denies syncope, Denies numbness, Denies tingling and Denies weakness Endo Reports palpitations Physical Exam Vital Signs: Last Vital Signs Pulse 70 09/16/24 14:01 BP 120/68 09/16/24 14:01 BMI result Body Mass Index 20.2 Const General: comfortable and no acute distress Orientation/consciousness: patient oriented x3 HEENT Other: Unremarkable Head: Yes normal to inspection Neck Neck: Yes normal visual inspection Chest Chest palpation & inspection: normal inspection of the chest Resp Auscultation: clear to auscultation bilaterally Cardio Palpation: normal PMI Heart sounds: S1 normal heart sound present, S2 normal heart sound present, no gallops, no murmurs and no rubs GI Palpation (GI): Soft to palpation Back/Spine/Pelvis Other: unremarkable Skin General skin exam: no rashes or lesions noted Neuro General: patient oriented x3 Extrem General: Yes normal to inspection Psych Mental Status: mental status grossly normal Assessment & Plan Assessment & Plan (1) Dizziness: Code(s): R42 - Dizziness and giddiness Category: Medical (2) SOB (shortness of breath): Code(s): R06.02 - Shortness of breath Category: Medical (3) Heart palpitations: Code(s): R00.2 - Palpitations Category: Medical (4) LBBB (left bundle branch block): Code(s): I44.7 - Left bundle-branch block, unspecified Category: Medical Plan EKG with underlying sinus rhythm, sinus arrhythmia; no ischemic findings; normal NC and corrected QT. EKGs from June 2024 had shown left bundle-branch block. Available high sensitivity troponin is within range. An echocardiogram from 2020 showed normal biventricular function and no significant valvular findings. Due to complaints of recurrent shortness of breath, palpitations and dizziness as well as the finding of intermittent left bundle-branch block, we will pursue further workup. Recommend an echocardiogram/Holter monitor for further evaluation. She is agreeable with this plan. Orders: Orders CA echo transthoracic complete Today R06.02 - Shortness of breath ECG 7 day holter monitor Today R00.2 - Palpitations Coding Level of Care Code New Pt Level 4 (09798) Complex EM visit Add On G2211 Diagnoses Dizziness R42 SOB (shortness of breath) R06.02 Heart palpitations R00.2 LBBB (left bundle branch block) I44.7
[2024-09-16 14:01] VITALS: BP 120/68; PULSE 70; BMI 20.2
--- OUTSIDE RECORDS SUMMARY | 2024-09-16 14:03 | XMS_ITS | Clinical Summary ---
Author Organization [employer] Address [address] [place] [address] [address] [place] [address] Care Team Providers Care Sourcing Intern Name Role Phone Unavailable Primary Care Provider [...]
--- OUTSIDE RECORDS SUMMARY | 2024-09-16 14:03 | XMS_ITS | Clinical Summary ---
Author Organization Unknown Care Team Providers Care Engineering Mgr Name Role Phone FELIPE GAMBOA, BETHANY Unavailable Unavailable ROLAN OLIVA, ANIA Unavailable Unavailable JOSE MIGUEL PASTOR, DANTE Unavailable Unavailable Payers Payer Name Policy Type Policy Number Effective Date Expira tion Date [facility] ([facility] [place] [employer] [id number] MEDICAID [facility] [id number] Problems Condition Name Condition Details Condition Category [...] 2-08 00:00: 00 08-13 23:59 :00 No [id number] 2 puff EVERY 6 HOURS 2 puff EVERY 6 HOURS (route: inhalation ) Med Classific ation: Respirato ry Therapy Agents bisacodyl 5 mg tablet,cecile yed release 2-08 00:00: 00 08-13 23:59 :00 No [id number] 1 tablet EVERY AM 1 tablet EVERY AM (route: oral) Med Classific ation: Gastroint estinal Therapy Agents bupropion HCl SR 150 mg tablet,12 hr sustained-r elease 2-08 00:00: 00 08-13 23:59 :00 No [id number] 1 tablet EVERY AM 1 tablet EVERY AM (route: oral) Med Classific ation: Central Nervous System Agents cholecalcif danelle (vitamin D3) 25 mcg (1,000 unit) tablet 2 00:00: 00 08-13 23:59 :00 No [id number] 1 tablet EVERY AM 1 tablet EVERY AM (route: oral) Med Classific ation: Electroly te Balance-N utritiona l Products clonazepam 1 mg tablet 208 00:00: 00 08-13 23:59 :00 No [id number] 1 tablet 3 TIMES DAILY 1 tablet 3 TIMES DAILY (route: oral) Med Classific ation: Central Nervous System Agents Dexilant 60 mg capsule, delayed release 2-08 00:00: 00 08-13 23:59 :00 No [id number] 1 capsule EVERY AM 1 capsule EVERY AM (route: oral) Med Classific ation: Gastroint estinal Therapy Agents famotidine 40 mg tablet 2-08 00:00: 00 08-13 23:59 :00 No [id number] 1 tablet 2 TIMES DAILY 1 tablet 2 TIMES DAILY (route: oral) Med Classific ation: Gastroint estinal Therapy Agents gabapentin 300 mg capsule 2-08 00:00: 00 08-13 23:59 :00 No [id number] 1 capsule 3 TIMES DAILY 1 capsule 3 TIMES DAILY (route: oral) Med Classific ation: Central Nervous System Agents hydroxyzine HCl 25 mg tablet 2-08 00:00: 00 08-13 23:59 :00 No [id number] 1 tablet EVERY 6 HOURS 1 tablet EVERY 6 HOURS (route: oral) Med Classific ation: Central Nervous System Agents ibuprofen 400 mg tablet 2-08 00:00: 00 08-13 23:59 :00 No [id number] 1 tablet EVERY 6 HOURS 1 tablet EVERY 6 HOURS (route: oral) Med Classific ation: Analgesic , Anti-infl ammatory or Antipyret ic lamotrigine 100 mg tablet 2-08 00:00: 00 08-13 23:59 :00 No [id number] 1 tablet 2 TIMES DAILY 1 tablet 2 TIMES DAILY (route: oral) Med Classific ation: Central Nervous System Agents Lidocare 4 % topical patch 2-08 00:00: 00 08-13 23:59 :00 No [id number] 1 adhesiv e patch, medicat ed 2 TIMES DAILY 1 adhesive patch, medicated 2 TIMES DAILY (route: topical) Med Classific ation: Dermatolo gical Miebo (PF) 100 % eye drops 2-08 00:00: 00 08-13 23:59 :00 No [id number] 1 drops 3 TIMES DAILY 1 drops 3 TIMES DAILY (route: ophthalmic (eye)) Med Classific ation: Ophthalmi c Agents olanzapine 10 mg tablet 2-08 00:00: 00 08-13 23:59 :00 No [id number] 1 tablet BEDTIME 1 tablet BEDTIME (route: oral) Med Classific ation: Central Nervous System Agents ondansetron 8 mg disintegrat ing tablet 2-08 00:00: 00 08-13 23:59 :00 No [id number] 1 tablet EVERY OTHER DAY 1 tablet EVERY OTHER DAY (route: oral) Med Classific ation: Gastroint estinal Therapy Agents oxybutynin chloride 5 mg tablet 2-08 00:00: 00 08-13 23:59 :00 No [id number] 1 tablet EVERY AM 1 tablet EVERY AM (route: oral) Med Classific ation: Genitouri nary Therapy prazosin 1 mg capsule 2-08 00:00: 00 08-13 23:59 :00 No [id number] 1 capsule BEDTIME 1 capsule BEDTIME (route: oral) Med Classific ation: Cardiovas cular Therapy Agents Restasis 0.05 % eye drops in a dropperette 2-08 00:00: 00 08-13 23:59 :00 No [id number] 1 dropper ette 2 TIMES DAILY 1 dropperett e 2 TIMES DAILY (route: ophthalmic (eye)) Med Classific ation: Ophthalmi c Agents simethicone 80 mg chewable tablet 2-08 00:00: 00 08-13 23:59 :00 No [id number] 1 tablet 4 TIMES DAILY 1 tablet 4 TIMES DAILY (route: oral) Med Classific ation: Gastroint estinal Therapy Agents sumatriptan 50 mg tablet 2-08 00:00: 00 08-13 23:59 :00 No [id number] 1 tablet BEDTIME 1 tablet BEDTIME (route: oral) Med Classific ation: Central Nervous System Agents Synthroid 50 mcg tablet 2-08 00:00: 00 08-13 23:59 :00 No [id number] 1 tablet EVERY AM 1 tablet EVERY AM (route: oral) Med Classific ation: Endocrine trazodone 50 mg tablet 2-08 00:00: 00 08-13 23:59 :00 No [id number] 1 tablet BEDTIME 1 tablet BEDTIME (route: oral) Med Classific ation: Central Nervous System Agents Xiidra 5 % eye drops in a dropperette 2-08 00:00: 00 08-13 23:59 :00 No [id number] 1 dropper ette, single- use drop dispens er 2 TIMES DAILY 1 dropperett e, single-use drop dispenser 2 TIMES DAILY (route: ophthalmic (eye)) Med Classific ation: Ophthalmi c Agents amitriptyli ne 50 mg tablet 08-21 00:00: 00 Yes [id number] 1 tablet DAILY 1 tablet DAILY (route: oral) Med Classific ation: Central Nervous System Agents bisacodyl 5 mg tablet,cecile yed release 08-21 00:00: 00 Yes [id number] 1 tablet 2 TIMES DAILY 1 tablet 2 TIMES DAILY (route: oral) Med Classific ation: Gastroint estinal Therapy Agents bupropion HCl XL 150 mg 24 hr tablet, extended release 08-21 00:00: 00 Yes [id number] 1 tablet EVERY AM 1 tablet EVERY AM (route: oral) Med Classific ation: Central Nervous System Agents cimetidine 800 mg tablet 08-21 00:00: 00 Yes [id number] 1 tablet 2 TIMES DAILY 1 tablet 2 TIMES DAILY (route: oral) Med Classific ation: Gastroint estinal Therapy Agents clonazepam 1 mg tablet 08-21 00:00: 00 Yes [id number] 1 tablet 3 TIMES DAILY 1 tablet 3 TIMES DAILY (route: oral) Med Classific ation: Central Nervous System Agents Dexilant 60 mg capsule, delayed release 08-21 00:00: 00 Yes [id number] 1 capsule EVERY AM 1 capsule EVERY AM (route: oral) Med Classific ation: Gastroint estinal Therapy Agents diclofenac sodium 75 mg tablet,cecile yed release 08-21 00:00: 00 Yes [id number] 1 tablet 2 TIMES DAILY 1 tablet 2 TIMES DAILY (route: oral) Med Classific ation: Analgesic , Anti-infl ammatory or Antipyret ic doxepin 10 mg capsule 08-21 00:00: 00 Yes [id number] 1 capsule BEDTIME 1 capsule BEDTIME (route: oral) Med Classific ation: Central Nervous System Agents famotidine 40 mg tablet 08-21 00:00: 00 Yes [id number] 1 tablet 2 TIMES DAILY 1 tablet 2 TIMES DAILY (route: oral) Med Classific ation: Gastroint estinal Therapy Agents ferrous sulfate 325 mg (65 mg iron) tablet 08-21 00:00: 00 Yes [id number] 1 tablet DAILY 1 tablet DAILY (route: oral) Med Classific ation: Electroly te Balance-N utritiona l Products gabapentin 300 mg capsule 08-21 00:00: 00 Yes [id number] 1 capsule 3 TIMES DAILY 1 capsule 3 TIMES DAILY (route: oral) Med Classific ation: Central Nervous System Agents levothyroxi ne 50 mcg tablet 08-21 00:00: 00 Yes [id number] 1 tablet EVERY AM 1 tablet EVERY AM (route: oral) Med Classific ation: Endocrine ondansetron 8 mg disintegrat ing tablet 08-21 00:00: 00 Yes [id number] 1 tablet BEDTIME 1 tablet BEDTIME (route: oral) Med Classific ation: Gastroint estinal Therapy Agents oxybutynin chloride ER 10 mg tablet,exte nded release 24 hr 08-21 00:00: 00 Yes [id number] 1 tablet EVERY AM 1 tablet EVERY AM (route: oral) Med Classific ation: Genitouri nary Therapy phenazopyri dine 200 mg tablet 08-21 00:00: 00 Yes [id number] 1 tablet 3 TIMES DAILY 1 tablet 3 TIMES DAILY (route: oral) Med Classific ation: Genitouri nary Therapy sertraline 50 mg tablet 08-21 00:00: 00 Yes [id number] 1 tablet EVERY AM 1 tablet EVERY AM (route: oral) Med Classific ation: Central Nervous System Agents sumatriptan 50 mg tablet 08-21 00:00: 00 Yes [id number] 1 tablet DAILY 1 tablet DAILY (route: oral) Med Classific ation: Central Nervous System Agents trazodone 50 mg tablet 08-21 00:00: 00 Yes [id number] 1 tablet BEDTIME 1 tablet BEDTIME (route: [...] Observation Time Observation Value Commen ts Temperature 2024-09-04 14:51:00.000 98 [degF] Pulse 2024-09-04 14:51:00.000 80 /min Pulse 2024-08-21 16:54:00.000 68 /min O2 Saturation (%) 2024-09-04 14:51:00.000 98 % O2 Saturation (%) 2024-08-21 16:54:00.000 98 % Respirations 2024-09-04 14:51:00.000 18 /min Respirations 2024-08-21 16:54:00.000 12 /min Systolic Blood Pressure 2024-09-04 14:51:00.000 120 mm [Hg] Systolic Blood Pressure 2024-08-21 16:54:00.000 120 mm [Hg] Diastolic Blood Pressure 2024-09-04 14:51:00.000 78 mm [Hg] Diastolic Blood Pressure 2024-08-21 16:54:00.000 [...] AWARENESS FOR SAFETY AND WILL NOTIFY CLINICAL COMPLIANCE CLERK AND PHYSICIAN/PROVIDER WITH ANY CHANGE IN CONDITION. [code = SKILLED NURSE WILL MAINTAIN SITUATIONAL AWARENESS FOR SAFETY AND WILL NOTIFY CLINICAL COMPLIANCE CLERK AND PHYSICIAN/PROVIDER WITH ANY CHANGE IN CONDITION.] [...] PER MEDICATION LIST.] Future Scheduled Test PATIENT MA Y HAVE ONE SET OF EMERGENCY MEDICATION [...] OF HOUSING AND SOCIAL SUPPORTS. [code = CREDIT PORTFOLIO ADVISOR TO EVALUATE PATIENT FOR NEED OF HOUSING AND SOCIAL SUPPORTS.] Goal Patient Goal - I WANT TO STA Y SAFE Goal Provider Goal - A PLAN OF CARE WILL BE ESTABLISHED THAT MEETS PATIENT'S CARE HOME NEEDS AND INCLUDES PATIENT GOAL FOR [...] THROUGHOUT THE EPISODE. Goal Provider Goal - CREDIT PORTFOLIO ADVISOR TO COMPLETE EVALUATION TO ADDRESS THE PATIENTS SOCIAL AND EMOTIONAL FACTORS AND/OR WRITTEN PLAN OF TREATMENT ESTABLISHED FOR THE PHYSICIAN'S SIGNATURE. Encounters Start Date/Time End Date/Time Encounter Type Admission Type Attending Rust Care Department Encounter ID Discharge Date Discharge Status Discharge Condition Discharge Reason Percent Goals Met 2024-08-21 00:00:00 2024-10-19 00:00:00 Outpatient [facility]ANTE VERAS [facility] [id number] 12.50
--- OUTSIDE RECORDS SUMMARY | 2024-09-16 14:03 | XMS_ITS | Clinical Summary ---
Author Organization Unknown Care Team Providers Care Clinic Supervisor Name Role Phone FELIPE GAMBOA, BETHANY Unavailable Unavailable ROLAN OLIVA, ANIA Unavailable Unavailable JOSE MIGUEL PASTOR, DANTE Unavailable Unavailable Payers Payer Name Policy Type Policy Number Effective Date Expira tion Date [facility] ([facility] [place] [facility] [id number] MEDICAID [facility] [id number] Problems Condition Name Condition Details Condition Category [...] 2-08 00:00: 00 08-13 23:59 :00 No [id number] 2 puff EVERY 6 HOURS 2 puff EVERY 6 HOURS (route: inhalation ) Med Classific ation: Respirato ry Therapy Agents bisacodyl 5 mg tablet,cecile yed release 2-08 00:00: 00 08-13 23:59 :00 No [id number] 1 tablet EVERY AM 1 tablet EVERY AM (route: oral) Med Classific ation: Gastroint estinal Therapy Agents bupropion HCl SR 150 mg tablet,12 hr sustained-r elease 2-08 00:00: 00 08-13 23:59 :00 No [id number] 1 tablet EVERY AM 1 tablet EVERY AM (route: oral) Med Classific ation: Central Nervous System Agents cholecalcif danelle (vitamin D3) 25 mcg (1,000 unit) tablet 2 00:00: 00 08-13 23:59 :00 No [id number] 1 tablet EVERY AM 1 tablet EVERY AM (route: oral) Med Classific ation: Electroly te Balance-N utritiona l Products clonazepam 1 mg tablet 208 00:00: 00 08-13 23:59 :00 No [id number] 1 tablet 3 TIMES DAILY 1 tablet 3 TIMES DAILY (route: oral) Med Classific ation: Central Nervous System Agents Dexilant 60 mg capsule, delayed release 2-08 00:00: 00 08-13 23:59 :00 No [id number] 1 capsule EVERY AM 1 capsule EVERY AM (route: oral) Med Classific ation: Gastroint estinal Therapy Agents famotidine 40 mg tablet 2-08 00:00: 00 08-13 23:59 :00 No [id number] 1 tablet 2 TIMES DAILY 1 tablet 2 TIMES DAILY (route: oral) Med Classific ation: Gastroint estinal Therapy Agents gabapentin 300 mg capsule 2-08 00:00: 00 08-13 23:59 :00 No [id number] 1 capsule 3 TIMES DAILY 1 capsule 3 TIMES DAILY (route: oral) Med Classific ation: Central Nervous System Agents hydroxyzine HCl 25 mg tablet 2-08 00:00: 00 08-13 23:59 :00 No [id number] 1 tablet EVERY 6 HOURS 1 tablet EVERY 6 HOURS (route: oral) Med Classific ation: Central Nervous System Agents ibuprofen 400 mg tablet 2-08 00:00: 00 08-13 23:59 :00 No [id number] 1 tablet EVERY 6 HOURS 1 tablet EVERY 6 HOURS (route: oral) Med Classific ation: Analgesic , Anti-infl ammatory or Antipyret ic lamotrigine 100 mg tablet 2-08 00:00: 00 08-13 23:59 :00 No [id number] 1 tablet 2 TIMES DAILY 1 tablet 2 TIMES DAILY (route: oral) Med Classific ation: Central Nervous System Agents Lidocare 4 % topical patch 2-08 00:00: 00 08-13 23:59 :00 No [id number] 1 adhesiv e patch, medicat ed 2 TIMES DAILY 1 adhesive patch, medicated 2 TIMES DAILY (route: topical) Med Classific ation: Dermatolo gical Miebo (PF) 100 % eye drops 2-08 00:00: 00 08-13 23:59 :00 No [id number] 1 drops 3 TIMES DAILY 1 drops 3 TIMES DAILY (route: ophthalmic (eye)) Med Classific ation: Ophthalmi c Agents olanzapine 10 mg tablet 2-08 00:00: 00 08-13 23:59 :00 No [id number] 1 tablet BEDTIME 1 tablet BEDTIME (route: oral) Med Classific ation: Central Nervous System Agents ondansetron 8 mg disintegrat ing tablet 2-08 00:00: 00 08-13 23:59 :00 No [id number] 1 tablet EVERY OTHER DAY 1 tablet EVERY OTHER DAY (route: oral) Med Classific ation: Gastroint estinal Therapy Agents oxybutynin chloride 5 mg tablet 2-08 00:00: 00 08-13 23:59 :00 No [id number] 1 tablet EVERY AM 1 tablet EVERY AM (route: oral) Med Classific ation: Genitouri nary Therapy prazosin 1 mg capsule 2-08 00:00: 00 08-13 23:59 :00 No [id number] 1 capsule BEDTIME 1 capsule BEDTIME (route: oral) Med Classific ation: Cardiovas cular Therapy Agents Restasis 0.05 % eye drops in a dropperette 2-08 00:00: 00 08-13 23:59 :00 No [id number] 1 dropper ette 2 TIMES DAILY 1 dropperett e 2 TIMES DAILY (route: ophthalmic (eye)) Med Classific ation: Ophthalmi c Agents simethicone 80 mg chewable tablet 2-08 00:00: 00 08-13 23:59 :00 No [id number] 1 tablet 4 TIMES DAILY 1 tablet 4 TIMES DAILY (route: oral) Med Classific ation: Gastroint estinal Therapy Agents sumatriptan 50 mg tablet 2-08 00:00: 00 08-13 23:59 :00 No [id number] 1 tablet BEDTIME 1 tablet BEDTIME (route: oral) Med Classific ation: Central Nervous System Agents Synthroid 50 mcg tablet 2-08 00:00: 00 08-13 23:59 :00 No [id number] 1 tablet EVERY AM 1 tablet EVERY AM (route: oral) Med Classific ation: Endocrine trazodone 50 mg tablet 2-08 00:00: 00 08-13 23:59 :00 No [id number] 1 tablet BEDTIME 1 tablet BEDTIME (route: oral) Med Classific ation: Central Nervous System Agents Xiidra 5 % eye drops in a dropperette 2-08 00:00: 00 08-13 23:59 :00 No [id number] 1 dropper ette, single- use drop dispens er 2 TIMES DAILY 1 dropperett e, single-use drop dispenser 2 TIMES DAILY (route: ophthalmic (eye)) Med Classific ation: Ophthalmi c Agents amitriptyli ne 50 mg tablet 08-21 00:00: 00 Yes [id number] 1 tablet DAILY 1 tablet DAILY (route: oral) Med Classific ation: Central Nervous System Agents bisacodyl 5 mg tablet,cecile yed release 08-21 00:00: 00 Yes [id number] 1 tablet 2 TIMES DAILY 1 tablet 2 TIMES DAILY (route: oral) Med Classific ation: Gastroint estinal Therapy Agents bupropion HCl XL 150 mg 24 hr tablet, extended release 08-21 00:00: 00 Yes [id number] 1 tablet EVERY AM 1 tablet EVERY AM (route: oral) Med Classific ation: Central Nervous System Agents cimetidine 800 mg tablet 08-21 00:00: 00 Yes [id number] 1 tablet 2 TIMES DAILY 1 tablet 2 TIMES DAILY (route: oral) Med Classific ation: Gastroint estinal Therapy Agents clonazepam 1 mg tablet 08-21 00:00: 00 Yes [id number] 1 tablet 3 TIMES DAILY 1 tablet 3 TIMES DAILY (route: oral) Med Classific ation: Central Nervous System Agents Dexilant 60 mg capsule, delayed release 08-21 00:00: 00 Yes [id number] 1 capsule EVERY AM 1 capsule EVERY AM (route: oral) Med Classific ation: Gastroint estinal Therapy Agents diclofenac sodium 75 mg tablet,cecile yed release 08-21 00:00: 00 Yes [id number] 1 tablet 2 TIMES DAILY 1 tablet 2 TIMES DAILY (route: oral) Med Classific ation: Analgesic , Anti-infl ammatory or Antipyret ic doxepin 10 mg capsule 08-21 00:00: 00 Yes [id number] 1 capsule BEDTIME 1 capsule BEDTIME (route: oral) Med Classific ation: Central Nervous System Agents famotidine 40 mg tablet 08-21 00:00: 00 Yes [id number] 1 tablet 2 TIMES DAILY 1 tablet 2 TIMES DAILY (route: oral) Med Classific ation: Gastroint estinal Therapy Agents ferrous sulfate 325 mg (65 mg iron) tablet 08-21 00:00: 00 Yes [id number] 1 tablet DAILY 1 tablet DAILY (route: oral) Med Classific ation: Electroly te Balance-N utritiona l Products gabapentin 300 mg capsule 08-21 00:00: 00 Yes [id number] 1 capsule 3 TIMES DAILY 1 capsule 3 TIMES DAILY (route: oral) Med Classific ation: Central Nervous System Agents levothyroxi ne 50 mcg tablet 08-21 00:00: 00 Yes [id number] 1 tablet EVERY AM 1 tablet EVERY AM (route: oral) Med Classific ation: Endocrine ondansetron 8 mg disintegrat ing tablet 08-21 00:00: 00 Yes [id number] 1 tablet BEDTIME 1 tablet BEDTIME (route: oral) Med Classific ation: Gastroint estinal Therapy Agents oxybutynin chloride ER 10 mg tablet,exte nded release 24 hr 08-21 00:00: 00 Yes [id number] 1 tablet EVERY AM 1 tablet EVERY AM (route: oral) Med Classific ation: Genitouri nary Therapy phenazopyri dine 200 mg tablet 08-21 00:00: 00 Yes [id number] 1 tablet 3 TIMES DAILY 1 tablet 3 TIMES DAILY (route: oral) Med Classific ation: Genitouri nary Therapy sertraline 50 mg tablet 08-21 00:00: 00 Yes [id number] 1 tablet EVERY AM 1 tablet EVERY AM (route: oral) Med Classific ation: Central Nervous System Agents sumatriptan 50 mg tablet 08-21 00:00: 00 Yes [id number] 1 tablet DAILY 1 tablet DAILY (route: oral) Med Classific ation: Central Nervous System Agents trazodone 50 mg tablet 08-21 00:00: 00 Yes [id number] 1 tablet BEDTIME 1 tablet BEDTIME (route: [...] AWARENESS FOR SAFETY AND WILL NOTIFY CLINICAL ETHYLBENZENE CONVERTER HELPER AND PHYSICIAN/PROVIDER WITH ANY CHANGE IN CONDITION. [code = SKILLED NURSE WILL MAINTAIN SITUATIONAL AWARENESS FOR SAFETY AND WILL NOTIFY CLINICAL ETHYLBENZENE CONVERTER HELPER AND PHYSICIAN/PROVIDER WITH ANY CHANGE IN CONDITION.] [...] OF HOUSING AND SOCIAL SUPPORTS. [code = CHART COMPUTER TO EVALUATE PATIENT FOR NEED OF HOUSING [...] THROUGHOUT THE EPISODE. Goal Provider Goal - CHART COMPUTER TO COMPLETE EVALUATION TO ADDRESS THE PATIENTS SOCIAL AND EMOTIONAL FACTORS AND/OR WRITTEN PLAN OF TREATMENT ESTABLISHED FOR THE PHYSICIAN'S SIGNATURE. Encounters Start Date/Time End Date/Time Encounter Type Admission Type Attending [facility] Care Department Encounter ID Discharge Date Discharge Status Discharge Condition Discharge Reason Percent Goals Met 2024-08-21 00:00:00 2024-10-19 00:00:00 Outpatient DANTE VERAS [facility] [id number] 12.50
--- OUTSIDE RECORDS SUMMARY | 2024-09-16 14:03 | XMS_ITS | Encounter Summary ---
Author Organization [employer] Address [address] [place] [address] Care Team Providers Care Dry Cleaning Machine Operator Name Role Phone Unavailable Primary Care Provider Unavailabl e Encounter Details Date Type Department Care Team (Latest Contact Info) Description 07/09/2018 Abstract [facility] CONVERSIONS Dental, Provider, DDS Social History [...]
--- OUTSIDE RECORDS SUMMARY | 2024-09-16 14:03 | XMS_ITS | Clinical Summary ---
Author Organization [facility] Address [address] [place] [address] Care Team Providers Care Weld Fitter Name Role Phone Chuck Davila MD Primary Care Provider [phone] Allergies Active Allergy Reactions Criticality Noted Date [...] age to complete this topic Care Teams Weld Fitter Relationship Specialty Start Date End Date Chuck Davila MD [address] [place] [address] [place] [address] PCP - General Internal Medicine 04/07/23
--- OUTSIDE RECORDS SUMMARY | 2024-09-16 14:03 | XMS_ITS | Clinical Summary ---
Author Organization [facility] Address [address] [place] [address] Care Team Providers Care Grout Pump Operator Name Role Phone Chuck Davila MD [...] age to complete this topic Care Teams Grout Pump Operator Relationship Specialty Start Date End Date Chuck Davila MD [address] [place] [address] Dr [address] ANJU Huerta PCP - General 04/07/23
== END 2024-09-16 14:47 | disposition home or self-care (01) ==
LOC: HO.HCS 13:59
PROVIDERS: PCP Internal Medicine; Visit Provider Internal Medicine
DX: R42 Dizziness and giddiness (principal); R06.02 Shortness of breath; R00.2 Palpitations; I44.7 Left bundle-branch block, unspecified
CPT/HCPCS: 99214; G2211

== ENCOUNTER → 2024-09-16 13:58 | Outpatient (BNVA) | payer OTHER, SELFPAY | PROVIDERS: PCP Internal Medicine; Visit Provider Internal Medicine | DX: I44.7 Left bundle-branch block, unspecified (principal); R42 Dizziness and giddiness; R06.02 Shortness of breath; R00.2 Palpitations | CPT/HCPCS: 99212 ==

== ENCOUNTER 2024-09-25 15:48 | Outpatient (AMB) | payer OTHER, SELFPAY ==
--- NOTE | 2024-09-25 15:51 | A.OFFVIS_ITS ---
Vital Signs 09/25/24 15:55 Height 5 ft 1.3 in Weight 114 lb 3.191 oz BMI 21.4 BP 124/74 Blood Pressure Location Lt brachial Position Sitting Pulse 74 Pulse Source Pulse Oximeter Pulse Oximetry (%) 100 Oxygen Delivery Method Room Air Intake Visit Reasons: Osteoporosis Intake Note: Patient present today for Osteoporosis follow up. Senior Windows Administrator Required: Yes Senior Windows Administrator Language: Drapery Examiner Services: Senior Windows Administrator Offered & Declined Accompanied by: Daughter Allergies Sulfa (Sulfonamide Antibiotics) Allergy (Severe, Verified 09/25/24 15:56) Itching codeine [CODEINE] Allergy (Intermediate, Verified 09/25/24 15:56) ITCHING hydroxychloroquine [From PLAQUENIL] Allergy (Intermediate, Verified 09/25/24 15:56) VOMITING morphine [MORPHINE] Allergy (Intermediate, Verified 09/25/24 15:56) ITCHING Estrogens Allergy (Mild, Verified 09/25/24 15:56) Unknown levothyroxine sodium Allergy (Unknown, Verified 09/25/24 15:56) rash,throat closes prednisone Allergy (Unknown, Verified 09/25/24 15:56) Unknown Corticosteroids (Glucocorticoids) [CORTICOSTEROIDS (GLUCOCORTICOIDS)] Adverse Reaction (Severe, Verified 09/25/24 15:56) DIFFICULTY BREATHING escitalopram [From Lexapro] Adverse Reaction (Severe, Verified 09/25/24 15:56) seizure meloxicam Adverse Reaction (Severe, Verified 09/25/24 15:56) Gastrointestinal Upset tadalafil [From Cialis] Adverse Reaction (Intermediate, Verified 09/25/24 15:56) Nausea and Vomiting acetaminophen [Percocet] Adverse Reaction (Unknown, Verified 09/25/24 15:56) Unknown duloxetine Adverse Reaction (Unknown, Verified 09/25/24 15:56) Unknown fluconazole Adverse Reaction (Unknown, Verified 09/25/24 15:56) Itch, pain, Medication List - Last Reconciled 09/25/24 by Som Brandon MD albuterol sulfate 90 mcg/actuation (Ventolin HFA) 2 puffs inhalation Q6H PRN bisacodyl 10 mg PO BEDTIME bupropion HCl XL 150 mg PO QAM cimetidine 800 mg PO BID clonazepam 1 mg PO TID PRN dexlansoprazole (Dexilant) 60 mg PO DAILY diclofenac sodium 75 mg PO BID famotidine 40 mg PO BID ferrous sulfate 324 mg PO DAILY gabapentin 300 mg PO TID lamotrigine 50 mg (2 x 25 mg) PO BEDTIME levothyroxine (Synthroid) 50 mcg PO DAILY nystatin 1 mL PO DAILY onabotulinumtoxinA (Botox) 200 units IM [id number] ondansetron HCl 8 mg PO BEDTIME PRN oxybutynin chloride ER 10 mg PO DAILY phenazopyridine 200 mg PO TID PRN sumatriptan succinate 50 mg PO DAILY PRN trazodone 50 mg PO BEDTIME PRN HPI Comments Details: 56-year-old female, today for follow-up visit, for evaluation of hypothyroidism and osteoporosis . Recetly fell forward and fx humerus in 03/2021 Has a subsequent fx of L shoulder . Shoulder fx happened after waking up felt a pop. . DEXA showed nl bone density She was diagnosed with breast cancer in 2010 she spent 7 years on aromatase inhibitors. No radiotherapy given. She took alendronate 70 mg weekly for 3 years. Medication was stopped the medication last year. She has lupus and rheumatoid arthritis she has never been on prednisone long-term she has adverse reactions to steroids. She has past medical history of breast cancer, SLE, rheumatoid arthritis, hypothyroidism, vitamin-D deficiency and depression, fibromyalgia. She denies prior fragilityb fractures, positive GERD on chronic PPI use, she has positive FH of osteoporosis in her mother, nephrolithiasis, never smoker, never on anti seizures medications. Bisphosphonates use: Alendronate 70 mg weekly since 2015. Stopped in May. Calcium intake: 500 mg bid. Vitamin D: 100,000 international units weekly. Herbal medications. None. A complete secondary workup including workup for mastocytosis, Ely's, hypercalciuria, multiple myeloma was completely normal She reports she was diagnosed with hypothyroidism a 20 years ago. She has negative antibodies. She is currently on Synthroid 50 mcg daily. She reports she has been on the same dose for 20 years. She is 100% compliance with LT4, she takes Prilosec 1 hour after Synthroid. She has cold intolerance, she denies heat intolerance, she denies weigth loss or gain, is postmenopausal , denies diarrhea, positive constipation, positive imsomnia but results with treatment, positive fatigue, denies dry skin, denies dyspnea, dysphonia, tremors, palpitations, irritability, anxiety. She has a swallowing problem, she reports she has choking sensation with swallowing solid. She had normal EGD. The barium swallowing study was not completed due to choking with barium. Family History: Her sister has thyroid nodules. 03/13/19 US thyroid Right Thyroid Lobe: 4.4 x 1.3 x 1.3 cm, volume 3.4 mL. Parenchyma: The gland echotexture is homogeneous. Thyroid vascularity is increased. Left Thyroid Lobe: 3.7 x 1.0 x 1.3 cm, volume 2.5 mL. Parenchyma: The gland echotexture is homogeneous. Thyroid vascularity is increased. Isthmus: 0.3 cm in maximum AP dimension. RIGHT THYROID LOBE: There are 2 nodules seen. 1. Location: Mid/lower pole. Size: 0.1 x 0.1 x 0.2 cm. Nodule characteristics: Well-circumscribed hypoechoic cyst with a punctate echogenic focus. No calcification or intranodular flow. This has the appearance of a colloid cyst. 2. Location: Lower pole. Size: 0.2 x 0.1 x 0.2 cm. Nodule characteristics: Well-circumscribed anechoic simple cyst with no microcalcification or intranodular flow. ISTHMUS: No nodules. LEFT THYROID LOBE: No nodules. NODES: No lymphadenopathy is seen in the tissue surrounding the thyroid gland. Trended TSH from 2375-6861 range 0.39 to 2.44 mIU/mL. 05/02/2019 DEXA scan FINDINGS: AP SPINE L1-L4: BMD 1.118 g/cm2, Z-score 0.7, T-score -0.5, normal. LEFT FEMUR, NECK: BMD 0.958 g/cm2, Z-score 0.7, T-score -0.6, normal. LEFT FEMUR, TOTAL: BMD 1.017 g/cm2, Z-score 1.0, T-score 0.1, normal. Laboratory Tests 11/25/19 06/01/20 11:03 12:58 Sodium 143 Potassium 4.7 Creatinine 0.66 Estimated GFR > 60 Calcium 8.7 D Alkaline Phosphatase 40 Albumin 4.2 N-Telopeptide X-linked 18 25-OH Vitamin D Total 82.9 TSH 0.39 Free T4 1.22 currently on calcium and vitamin-D supplementation. No fractures since last visit. Repeat DEXA showed stable bone density with the presence of low bone mass. The patient is a 59-year-old female presenting with concerns regarding bone health and the management of systemic lupus erythematosus (SLE). She recently fell but did not suffer any fractures. A recent bone density test revealed osteopenia but no osteoporosis. The patient has a history of shoulder fractures in the same location, occurring twice several years ago, which likely led to the initial prescription of alendronate, a bisphosphonate. Her SLE, which had been dormant for a period, has reactivated, causing a significant increase in Antimitochondrial Antibody (AMT) levels and considerable pain. The patient cannot take steroids due to an allergy, a factor that aids in preventing the exacerbation of her osteopenia. She has been experiencing dizzy spells, particularly when descending stairs, raising concerns about potential neurological issues. The absence of recent fractures suggests that her bone condition has been stable since the previous injuries. [facility] Medical History Bipolar 1 disorder Chronic idiopathic constipation Depression Chronic pruritus Urticaria Vitamin D deficiency Polyarthralgia Small bowel motility disorder Dry mouth and eyes Seborrhea capitis in adult Bilateral sciatica Urinary frequency Abdominal pannus Positive sm/[employer] antibody Family history of polyps in the colon Fracture of neck of left humerus Humeral head fracture Chronic gastritis Insomnia Hypothyroidism Seropositive rheumatoid arthritis Leukopenia Gingivitis History of breast cancer Estrogen receptor positive status [ER+] Ductal carcinoma in situ (DCIS) of left breast Autoimmune disorder PTSD (post-traumatic stress disorder) COVID-19 Bilateral knee pain Fibromyalgia Schatzki's ring Rheumatoid arthritis Small bowel motility disorder Osteoporosis Raynaud's disease without gangrene Bipolar depression Anxiety Primary insomnia Constipation Acquired hypothyroidism Systemic lupus erythematosus Left temporomandibular joint disorder, unspecified Surgical History Hx of abdominoplasty History of esophagogastroduodenoscopy (EGD) Hx of colonoscopy History of bilateral mastectomy History of total abdominal hysterectomy and bilateral salpingo-oophorectomy History of cholecystectomy History of tubal ligation History of section Family History Father Prostate cancer Hypertension Mother Breast cancer Hypertension Asthma Maternal Aunt Breast cancer Maternal Grandmother Colon cancer Maternal Aunt Breast cancer Sister Bone cancer Social History Household Members: Children Household Members Other:: 2 daughters and 3 dogs Housing: House Do you presently have visiting nurse or other home services: No Alcohol intake: never Comment: 5 min safety checks Patient Tobacco Use Status: Never used Tobacco Tobacco use type: Cigarette e-Cigarette/Vaping Use: Never Used Second Hand Smoke Exposure: No Advance Directives Date on File: 08/12/20 service: No Current occupational status: disabled Current occupational exposures/hazards: No Sexual orientation: Straight/Heterosexual Gender identity: Female Cognitive needs: Yes (cane) Hearing needs: No Vision needs: Yes (Glasses) Female Reproductive History Menstrual Age of Menarche: 10 Physical Exam Vital Signs: BMI result Body Mass Index 21.4 Assessment & Plan Assessment & Plan (1) Osteoporosis: Code(s): M81.0 - Age-related osteoporosis without current pathological fracture Category: Medical Qualifiers: Osteoporosis type: unspecified Presence of current pathological fracture: without current pathological fracture Qualified Code(s): M81.0 - Age- related osteoporosis without current pathological fracture Plan: Multiple risk factors for osteoporosis with normal DEXA and completed a course of multiple years of bisphosphonate with suppressed but treading upward NTX. She recently sustained a fragility fracture of the shoulder. Concurrently taking calcium and vitamin-D supplementation. F/U DeXA showed low bone mass with stable bone density . Ely syndrome, multiple myeloma and systemic mastocytosis and hypophosphatemia have been ruled out Plan is to continue calcium and vitamin-D supplementation. Will recheck urine NTX and if elevated may consider using an anti resorptive agent like resumption of bisphosphonate or Prolia . 1. Osteopenia The patient has been previously treated with alendronate, and a fasting urine test will be conducted to assess its current effectiveness. Calcium and vitamin D supplementation will continue, and further treatment will depend on test results and her risk factors as she approaches 68 years old. I discussed with the patient the current status of her osteopenia and the reactivation of her systemic lupus erythematosus (SLE). We agreed on conducting a fasting urine test to evaluate the efficacy of past alendronate use. I explained that depending on the results, we might continue with calcium and vitamin D or consider other treatments. The risks and benefits of managing SLE without steroids were discussed, emphasizing the importance of follow-up in three months to re-evaluate her condition. Additionally, I advised her to emerald wilde with her neurologist to investigate the cause of her dizziness. - Schedule a fasting urine NTX as directed. - Continue taking calcium and vitamin D supplements. - Follow up with your primary care provider and neurologist regarding dizziness. - Return for follow-up in three months or sooner if a fracture occurs or symptoms worsen. - Contact your primary care provider for pain management options. 3 The patient had an opportunity to ask questions regarding treatment plan. The patient expressed understanding and agreement with the above treatment plan. Patient was informed and verbally consented to the use of an ambient scribe for clinic note documentation during this visit. Coding Level of Care Code Est Pt Level 3 (81077) Diagnoses Osteoporosis without current pathological fracture, unspecified osteoporosis type M81.0 Osteoporosis type: unspecified Presence of current pathological fracture: without current pathological fracture
[2024-09-25 15:55] VITALS: BP 124/74; PULSE 74; O2SAT 100; BMI 21.4
--- OUTSIDE RECORDS SUMMARY | 2024-09-25 16:10 | XMS_ITS | Clinical Summary ---
Author Organization Unknown Care Team Providers Care Studio Engineer Name Role Phone FELIPE GAMBOA, BETHANY Unavailable Unavailable ROLAN OLIVA, ANIA Unavailable Unavailable JOSE MIGUEL PASTOR, DANTE Unavailable Unavailable Payers Payer Name Policy Type Policy Number Effective Date Expira tion Date [facility] ([facility] [place]) [facility] [id number] MEDICAID [facility] [id number] Problems Condition Name Condition Details Condition Category [...] 2-08 00:00: 00 08-13 23:59 :00 No [id number] 2 puff EVERY 6 HOURS 2 puff EVERY 6 HOURS (route: inhalation ) Med Classific ation: Respirato ry Therapy Agents bisacodyl 5 mg tablet,cecile yed release 2-08 00:00: 00 08-13 23:59 :00 No [id number] 1 tablet EVERY AM 1 tablet EVERY AM (route: oral) Med Classific ation: Gastroint estinal Therapy Agents bupropion HCl SR 150 mg tablet,12 hr sustained-r elease 2-08 00:00: 00 08-13 23:59 :00 No [id number] 1 tablet EVERY AM 1 tablet EVERY AM (route: oral) Med Classific ation: Central Nervous System Agents cholecalcif danelle (vitamin D3) 25 mcg (1,000 unit) tablet 2 00:00: 00 08-13 23:59 :00 No [id number] 1 tablet EVERY AM 1 tablet EVERY AM (route: oral) Med Classific ation: Electroly te Balance-N utritiona l Products clonazepam 1 mg tablet 208 00:00: 00 08-13 23:59 :00 No [id number] 1 tablet 3 TIMES DAILY 1 tablet 3 TIMES DAILY (route: oral) Med Classific ation: Central Nervous System Agents Dexilant 60 mg capsule, delayed release 2-08 00:00: 00 08-13 23:59 :00 No [id number] 1 capsule EVERY AM 1 capsule EVERY AM (route: oral) Med Classific ation: Gastroint estinal Therapy Agents famotidine 40 mg tablet 2-08 00:00: 00 08-13 23:59 :00 No [id number] 1 tablet 2 TIMES DAILY 1 tablet 2 TIMES DAILY (route: oral) Med Classific ation: Gastroint estinal Therapy Agents gabapentin 300 mg capsule 2-08 00:00: 00 08-13 23:59 :00 No [id number] 1 capsule 3 TIMES DAILY 1 capsule 3 TIMES DAILY (route: oral) Med Classific ation: Central Nervous System Agents hydroxyzine HCl 25 mg tablet 2-08 00:00: 00 08-13 23:59 :00 No [id number] 1 tablet EVERY 6 HOURS 1 tablet EVERY 6 HOURS (route: oral) Med Classific ation: Central Nervous System Agents ibuprofen 400 mg tablet 2-08 00:00: 00 08-13 23:59 :00 No [id number] 1 tablet EVERY 6 HOURS 1 tablet EVERY 6 HOURS (route: oral) Med Classific ation: Analgesic , Anti-infl ammatory or Antipyret ic lamotrigine 100 mg tablet 2-08 00:00: 00 08-13 23:59 :00 No [id number] 1 tablet 2 TIMES DAILY 1 tablet 2 TIMES DAILY (route: oral) Med Classific ation: Central Nervous System Agents Lidocare 4 % topical patch 2-08 00:00: 00 08-13 23:59 :00 No [id number] 1 adhesiv e patch, medicat ed 2 TIMES DAILY 1 adhesive patch, medicated 2 TIMES DAILY (route: topical) Med Classific ation: Dermatolo gical Miebo (PF) 100 % eye drops 2-08 00:00: 00 08-13 23:59 :00 No [id number] 1 drops 3 TIMES DAILY 1 drops 3 TIMES DAILY (route: ophthalmic (eye)) Med Classific ation: Ophthalmi c Agents olanzapine 10 mg tablet 2-08 00:00: 00 08-13 23:59 :00 No [id number] 1 tablet BEDTIME 1 tablet BEDTIME (route: oral) Med Classific ation: Central Nervous System Agents ondansetron 8 mg disintegrat ing tablet 2-08 00:00: 00 08-13 23:59 :00 No [id number] 1 tablet EVERY OTHER DAY 1 tablet EVERY OTHER DAY (route: oral) Med Classific ation: Gastroint estinal Therapy Agents oxybutynin chloride 5 mg tablet 2-08 00:00: 00 08-13 23:59 :00 No [id number] 1 tablet EVERY AM 1 tablet EVERY AM (route: oral) Med Classific ation: Genitouri nary Therapy prazosin 1 mg capsule 2-08 00:00: 00 08-13 23:59 :00 No [id number] 1 capsule BEDTIME 1 capsule BEDTIME (route: oral) Med Classific ation: Cardiovas cular Therapy Agents Restasis 0.05 % eye drops in a dropperette 2-08 00:00: 00 08-13 23:59 :00 No [id number] 1 dropper ette 2 TIMES DAILY 1 dropperett e 2 TIMES DAILY (route: ophthalmic (eye)) Med Classific ation: Ophthalmi c Agents simethicone 80 mg chewable tablet 2-08 00:00: 00 08-13 23:59 :00 No [id number] 1 tablet 4 TIMES DAILY 1 tablet 4 TIMES DAILY (route: oral) Med Classific ation: Gastroint estinal Therapy Agents sumatriptan 50 mg tablet 2-08 00:00: 00 08-13 23:59 :00 No [id number] 1 tablet BEDTIME 1 tablet BEDTIME (route: oral) Med Classific ation: Central Nervous System Agents Synthroid 50 mcg tablet 2-08 00:00: 00 08-13 23:59 :00 No [id number] 1 tablet EVERY AM 1 tablet EVERY AM (route: oral) Med Classific ation: Endocrine trazodone 50 mg tablet 2-08 00:00: 00 08-13 23:59 :00 No [id number] 1 tablet BEDTIME 1 tablet BEDTIME (route: oral) Med Classific ation: Central Nervous System Agents Xiidra 5 % eye drops in a dropperette 2-08 00:00: 00 08-13 23:59 :00 No [id number] 1 dropper ette, single- use drop dispens er 2 TIMES DAILY 1 dropperett e, single-use drop dispenser 2 TIMES DAILY (route: ophthalmic (eye)) Med Classific ation: Ophthalmi c Agents amitriptyli ne 50 mg tablet 08-21 00:00: 00 Yes [id number] 1 tablet DAILY 1 tablet DAILY (route: oral) Med Classific ation: Central Nervous System Agents bisacodyl 5 mg tablet,cecile yed release 08-21 00:00: 00 Yes [id number] 1 tablet 2 TIMES DAILY 1 tablet 2 TIMES DAILY (route: oral) Med Classific ation: Gastroint estinal Therapy Agents bupropion HCl XL 150 mg 24 hr tablet, extended release 08-21 00:00: 00 Yes [id number] 1 tablet EVERY AM 1 tablet EVERY AM (route: oral) Med Classific ation: Central Nervous System Agents cimetidine 800 mg tablet 08-21 00:00: 00 Yes [id number] 1 tablet 2 TIMES DAILY 1 tablet 2 TIMES DAILY (route: oral) Med Classific ation: Gastroint estinal Therapy Agents clonazepam 1 mg tablet 08-21 00:00: 00 Yes [id number] 1 tablet 3 TIMES DAILY 1 tablet 3 TIMES DAILY (route: oral) Med Classific ation: Central Nervous System Agents Dexilant 60 mg capsule, delayed release 08-21 00:00: 00 Yes [id number] 1 capsule EVERY AM 1 capsule EVERY AM (route: oral) Med Classific ation: Gastroint estinal Therapy Agents diclofenac sodium 75 mg tablet,cecile yed release 08-21 00:00: 00 Yes [id number] 1 tablet 2 TIMES DAILY 1 tablet 2 TIMES DAILY (route: oral) Med Classific ation: Analgesic , Anti-infl ammatory or Antipyret ic doxepin 10 mg capsule 08-21 00:00: 00 Yes [id number] 1 capsule BEDTIME 1 capsule BEDTIME (route: oral) Med Classific ation: Central Nervous System Agents famotidine 40 mg tablet 08-21 00:00: 00 Yes [id number] 1 tablet 2 TIMES DAILY 1 tablet 2 TIMES DAILY (route: oral) Med Classific ation: Gastroint estinal Therapy Agents ferrous sulfate 325 mg (65 mg iron) tablet 08-21 00:00: 00 Yes [id number] 1 tablet DAILY 1 tablet DAILY (route: oral) Med Classific ation: Electroly te Balance-N utritiona l Products gabapentin 300 mg capsule 08-21 00:00: 00 Yes [id number] 1 capsule 3 TIMES DAILY 1 capsule 3 TIMES DAILY (route: oral) Med Classific ation: Central Nervous System Agents levothyroxi ne 50 mcg tablet 08-21 00:00: 00 Yes [id number] 1 tablet EVERY AM 1 tablet EVERY AM (route: oral) Med Classific ation: Endocrine ondansetron 8 mg disintegrat ing tablet 08-21 00:00: 00 Yes [id number] 1 tablet BEDTIME 1 tablet BEDTIME (route: oral) Med Classific ation: Gastroint estinal Therapy Agents oxybutynin chloride ER 10 mg tablet,exte nded release 24 hr 08-21 00:00: 00 Yes [id number] 1 tablet EVERY AM 1 tablet EVERY AM (route: oral) Med Classific ation: Genitouri nary Therapy phenazopyri dine 200 mg tablet 08-21 00:00: 00 Yes [id number] 1 tablet 3 TIMES DAILY 1 tablet 3 TIMES DAILY (route: oral) Med Classific ation: Genitouri nary Therapy sertraline 50 mg tablet 08-21 00:00: 00 Yes [id number] 1 tablet EVERY AM 1 tablet EVERY AM (route: oral) Med Classific ation: Central Nervous System Agents sumatriptan 50 mg tablet 08-21 00:00: 00 Yes [id number] 1 tablet DAILY 1 tablet DAILY (route: oral) Med Classific ation: Central Nervous System Agents trazodone 50 mg tablet 08-21 00:00: 00 Yes [id number] 1 tablet BEDTIME 1 tablet BEDTIME (route: [...] AWARENESS FOR SAFETY AND WILL NOTIFY CLINICAL LADLE REPAIRMAN AND PHYSICIAN/PROVIDER WITH ANY CHANGE IN CONDITION. [code = SKILLED NURSE WILL MAINTAIN SITUATIONAL AWARENESS FOR SAFETY AND WILL NOTIFY CLINICAL LADLE REPAIRMAN AND PHYSICIAN/PROVIDER WITH ANY CHANGE IN CONDITION.] [...] OF HOUSING AND SOCIAL SUPPORTS. [code = SAP SECURITY ARCHITECT TO EVALUATE PATIENT FOR NEED OF HOUSING AND SOCIAL SUPPORTS.] Goal Patient Goal - I WANT TO STA Y SAFE Goal Provider Goal - A PLAN OF CARE WILL BE ESTABLISHED THAT MEETS PATIENT'S ALF NEEDS AND INCLUDES PATIENT GOAL FOR HOME [...] THROUGHOUT THE EPISODE. Goal Provider Goal - SAP SECURITY ARCHITECT TO COMPLETE EVALUATION TO ADDRESS THE PATIENTS SOCIAL AND EMOTIONAL FACTORS AND/OR WRITTEN PLAN OF TREATMENT ESTABLISHED FOR THE PHYSICIAN'S SIGNATURE. Encounters Start Date/Time End Date/Time Encounter Type Admission Type Attending [facility] Care Department Encounter ID Discharge Date Discharge Status Discharge Condition Discharge Reason Percent Goals Met 2024-08-21 00:00:00 2024-10-19 00:00:00 Outpatient DANTE VERAS [facility] [id number] 12.50
== END 2024-09-25 16:18 | disposition home or self-care (01) ==
LOC: HO.ENCR 15:49
PROVIDERS: PCP Internal Medicine; Visit Provider Internal Medicine Endocrinology, Diabetes & Metabolism
DX: M81.0 Age-related osteoporosis without current pathological fracture (principal)
CPT/HCPCS: 99213

== ENCOUNTER → 2024-09-25 15:48 | Outpatient (BNVA) | payer OTHER, SELFPAY | PROVIDERS: PCP Internal Medicine; Visit Provider Internal Medicine Endocrinology, Diabetes & Metabolism | DX: M81.0 Age-related osteoporosis without current pathological fracture (principal) | CPT/HCPCS: 99212 ==

== ENCOUNTER 2024-10-02 12:08 | Outpatient (REF) | payer OTHER, SELFPAY ==
[2024-10-02 12:26] LABS: MANUAL DIFF FLAG NO
--- OUTSIDE RECORDS SUMMARY | 2024-10-02 12:45 | XMS_ITS | Clinical Summary ---
Author Organization [employer] Address [address] [place] [address] [address] [place] [address] Care Team Providers Care Box Gluer Name Role Phone Unavailable Primary Care Provider [...] 1963 FIT 1963 FOBT 1963 Sigmoidoscopy 1963 Disability Screening 1963 Alcohol/Substance Use Screening 1975 Tobacco Screening 1975 DTaP/Tdap/Td Vaccines (1 - Tdap) 1982 Pap Smear 1984 Cervical Cancer Screening 1993 HPV/Cotest 1993 Mammogram 2003 Pneumococcal Vaccine: 50+ Ye ars (1 of 1 - PCV) 2013 Zoster Vaccines (1 of 2) 2013 COVID-19 Vaccine ( - 2023-2 5 season) 2023 Influenza Vaccine (Season Ended) 2024 RSV Patients and Pa tients Aged 60 [...]
[2024-10-02 13:07] LABS: Basophils Percent Auto 0.3 % (0-2); Eosinophils Percent Auto 0.5 % (0-4); Hematocrit 31.9 % (37.0-47.0); Hemoglobin 10.1 g/dl (12.0-16.0); Imm Gran Abs Auto 0.02 X10*3/uL (0.00-0.03); Imm Gran Pct Auto 0.5 % (0.0-0.4); Immature Retic Fraction 7.7 % (3.0-15.9); Lymphocytes Absolute Auto 0.9 X10*3/uL (1.2-4.9); Lymphocytes Percent Auto 24.8 % (20-40); Mean Corpuscular HGB Conc 31.7 g/dl (31.0-35.0); Mean Corpuscular Hemoglobin 26.2 pg (27.0-33.0); Mean Corpuscular Volume 82.6 fL (80.0-98.0); Mean Platelet Volume 10.2 fL (9.4-12.3); Monocytes Absolute Auto 0.3 X10*3/uL (0.1-1.2); Monocytes Percent Auto 8.9 % (2-11); Neutrophils Absolute Auto 2.4 x10*3/uL (2.0-8.3); Platelet Count 188 X10*3/uL (160-400); Red Blood Count 3.86 X10*6/uL (4.20-5.50); Red Cell Distribution Width 15.8 % (11.0-16.0); Reticulocyte Percent 0.5 % (0.5-1.8); Reticulocytes Absolute 0.019 X10*6/uL (0.026-0.095); White Blood Count 3.7 X10*3/uL (4.8-10.8)
[2024-10-02 13:46] LABS: Ferritin 11 ng/mL (10-250)
[2024-10-07 13:29] LABS: CA 27.29 33 U/mL (<38)
== END 2024-10-02 12:09 | disposition home or self-care (01) ==
LOC: HO.LAB 12:08
PROVIDERS: PCP Internal Medicine; Visit Provider Internal Medicine
DX: D64.9 Anemia, unspecified (principal)
CPT/HCPCS: 36415; 82728; 85025; 85045; 86300

== ENCOUNTER 2024-10-11 13:40 | Outpatient (AMB) | payer OTHER, SELFPAY ==
--- NOTE | 2024-10-11 13:43 | A.OFFVIS_ITS ---
Vital Signs 10/11/24 13:52 Height 5 ft 2 in Weight 114 lb BMI 20.8 BP 128/62 Blood Pressure Location Rt brachial Position Sitting Pulse 74 Pulse Source Pulse Oximeter Pulse Oximetry (%) 97 Oxygen Delivery Method Room Air Intake Visit Reasons: Follow up abd pain Intake Note: Established patient for mgmt of dysphagia, GERD, CIC CC; C/O epigastric pain + GERD, severe persistence over the last couple months per pt despite current therapies. Pt is looking to discuss possible imaging / diagnostics as well as egd and colo. Pt just had EGD/[place] w/ Dr. Shelton in 2023 and is not due for another 4 years. Pantograph Transferrer Required: Yes Pantograph Transferrer Services: Pantograph Transferrer Present Pantograph Transferrer Name: Elfego [id number] Information Interpreted: clinical only Accompanied by: Self / Same As Patient Allergies Sulfa (Sulfonamide Antibiotics) Allergy (Severe, Verified 10/11/24 13:43) Itching codeine [CODEINE] Allergy (Intermediate, Verified 10/11/24 13:43) ITCHING hydroxychloroquine [From PLAQUENIL] Allergy (Intermediate, Verified 10/11/24 13:43) VOMITING morphine [MORPHINE] Allergy (Intermediate, Verified 10/11/24 13:43) ITCHING Estrogens Allergy (Mild, Verified 10/11/24 13:43) Unknown levothyroxine sodium Allergy (Unknown, Verified 10/11/24 13:43) rash,throat closes prednisone Allergy (Unknown, Verified 10/11/24 13:43) Unknown Corticosteroids (Glucocorticoids) [CORTICOSTEROIDS (GLUCOCORTICOIDS)] Adverse Reaction (Severe, Verified 10/11/24 13:43) DIFFICULTY BREATHING escitalopram [From Lexapro] Adverse Reaction (Severe, Verified 10/11/24 13:43) seizure meloxicam Adverse Reaction (Severe, Verified 10/11/24 13:43) Gastrointestinal Upset tadalafil [From Cialis] Adverse Reaction (Intermediate, Verified 10/11/24 13:43) Nausea and Vomiting acetaminophen [Percocet] Adverse Reaction (Unknown, Verified 10/11/24 13:43) Unknown duloxetine Adverse Reaction (Unknown, Verified 10/11/24 13:43) Unknown fluconazole Adverse Reaction (Unknown, Verified 10/11/24 13:43) Itch, pain, HPI HPI Follow up abd pain: Details: Assessment & Plan (1) Dysphagia: Comment: ORAL PHASE WITH CHOKING ON SOLID FOODS Code(s): R13.10 - Dysphagia, unspecified Category: Medical Qualifiers: Dysphagia type: oral phase Qualified Code(s): R13.11 - Dysphagia, oral phase (2) Nausea: Code(s): R11.0 - Nausea Category: Medical (3) Tubular adenoma of colon: Comment: scope 2019 severe TICS, no polyps repeat 5 years 2023 Code(s): D12.6 - Benign neoplasm of colon, unspecified Category: Medical (4) GERD (gastroesophageal reflux disease): Code(s): K21.9 - Gastro-esophageal reflux disease without esophagitis Category: Medical Qualifiers: Esophagitis presence: without esophagitis Qualified Code(s): K21.9 - Gastro-esophageal reflux disease without esophagitis (5) Constipation: Code(s): K59.00 - Constipation, unspecified Category: Medical Plan DJIBOUTIAN #Emelia Card She was very upset at the radiologist who did the study because he told her she was not having choking, but she feels that the amt they gave even a child would not choke. She feels this was disrespectful. 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 She also is having increasing constipation. This is likely because she can only eat very small amounts as she is very fearful of choking. She eats mostly salads and does try to get fiber via Chick peas it etc. but she probably isn't having much ball. We do discuss using something like Citrucel since she has less choking with liquids and this may facilitate the constipation until we can salt the swallowing problem. She also continues on her Dexilant, simethicone and Zofran. The insurance did not approve the lower volume prep so she says she will do all right with a MiraLax and Dulcolax prep so I will send this to the pharmacy. I also treat her daughter! She has an appt 04/02 after the EGD/colonoscopy. Medications: New polyethylene glycol 3350 (Miralax) 238 grams PO ONCE 238 grams 0RF 1 day bisacodyl (Dulcolax (bisacodyl)) 10 mg (2 x 5 mg) PO BEDTIME 4 tabs 0RF 2 days Discontinued sod picosulf-mag ox-citric ac 10 mg-3.5 gram- 12 gram/175 mL (Clenpiq) take first bottle at 5PM evening before colonoscopy follow with at least 5cups (40oz) of clear liquids within 5 hours ; 2nd bottle the next day approximately 8 hours before colonoscopy follow by 4cups (32oz) of clear liquids- need to finish the 4cups of clear liquids 4 hours before your colonoscopy. Discontinued Reason: Insurance Denied 175 mL PO ONCE 350 mL 0 EGD/COLONOSCOPY 03/20/24 Findings: Larynx:normal Esophagus: GE junction at 35 cm, diaphragm hiatus at 35 cm, mild esophagitis, bx taken from GEJ, dsital and proximal esophagus, balloon dilation done to 18 mm at LES and UES-no tears seen Stomach: Patchy erythema and scarring with few erosions seen. Biopsies were obtained. Grade 2 flap valve on retroflexed examination of the cardia. Duodenum: Normal bulb and descending duodenum, Findings: Terminal Ileum-not intubated due to looping melanosis coli noted Cecum:normal Right sided retroflexion- normal Ascending Colon: normal Transverse Colon -normal Descending Colon:normal Sigmoid Colon: normal Rectum: Retroflexion with small internal hemorrhoids, grade I Anorectum - normal Impression and Post Procedure Diagnosis: Endoscopy Findings: mild esophagitis gastritis Colonoscopy Findings: melanosis coli internal hemorrhoids Plan: Await Pathology results Repeat Colonoscopy in 5 years due to some areas with fair prep or earlier if clinically indicated High fiber diet leaflet avoid straining at stool, epsom salts and sitz bath, anusol supps or cream if H pylori pos then treat BIOPSY Received: 03/20/24 ADDENDUM REPORT Addendum Addendum #1 Immunostain for H. pylori on A is negative. Additional level with AB/PAS on B is negative for intestinal metaplasia. Controls stain appropriately. Electronically Signed By: Zahra Bojorquez 03/25/24 1035 Diagnosis A. Stomach, biopsy: Gastric antral and body mucosa with mild reactive changes and focal minimal chronic inactive inflammation; negative for intestinal metaplasia and dysplasia. B. Gastroesophageal junction, biopsy: Columnar mucosa with minimal-mild chronic active inflammation; no intestinal metaplasia seen on initial levels; no squamous component present. C. Esophagus, proximal, biopsy: Squamous mucosa with spongiosis and focal increased intraepithelial lymphocytes, and focal submucosal glands; no columnar mucosa present (see comment). D. Esophagus, distal, biopsy: Squamous mucosa with focal mild intraepithelial lymphocytes and rare neutrophils suggesting esophagitis; no columnar mucosa present. Comment: (A): Immunostain for H. pylori pending; addendum to follow. (B): Additional level with AB/PAS stain pending; addendum to follow. (C): The findings may represent a nonspecific reaction pattern, but lymphocytic esophagitis is not excluded and clinical correlation is necessary. TODAY'S VISIT DJIBOUTIAN #Niki Card She feels that the dilation helped a little bit she has found that she needs to cut her food small and eat slowly and relax or she will choke. She still will choke about 5 times a month. I think that esophageal spasm may be a large factor, especially since she admits that it happens more if she is not relaxed. We will give a trial of hyoscamine. She also continues on her Dexilant, bisacodyl, simethicone and Zofran. The bisaocydl is helping her well to move her bowels. ROV 6 weeks. [facility] Medical History (Updated 10/11/24 @ 16:04 by AICHA Manzo) SOB (shortness of breath) Bipolar depression Headache Cerumen impaction Otitis media Arthralgia Nausea Recurrent cystitis Screening for tuberculosis History of breast cancer in female Pharyngitis Oral pharyngeal candidiasis Bipolar 1 disorder Chronic idiopathic constipation Depression Chronic pruritus Urticaria Vitamin D deficiency Polyarthralgia Small bowel motility disorder Dry mouth and eyes Seborrhea capitis in adult Bilateral sciatica Urinary frequency Abdominal pannus Positive sm/NUCLEAR TEST TECHNICIAN antibody Family history of polyps in the colon Fracture of neck of left humerus Humeral head fracture Chronic gastritis Insomnia Hypothyroidism Seropositive rheumatoid arthritis Leukopenia Gingivitis History of breast cancer Estrogen receptor positive status [ER+] Ductal carcinoma in situ (DCIS) of left breast Autoimmune disorder PTSD (post-traumatic stress disorder) COVID-19 Bilateral knee pain Fibromyalgia Schatzki's ring Rheumatoid arthritis Small bowel motility disorder Osteoporosis Raynaud's disease without gangrene Anxiety Primary insomnia Constipation Acquired hypothyroidism Systemic lupus erythematosus Left temporomandibular joint disorder, unspecified Surgical History Hx of abdominoplasty History of esophagogastroduodenoscopy (EGD) Hx of colonoscopy History of bilateral mastectomy History of total abdominal hysterectomy and bilateral salpingo-oophorectomy History of cholecystectomy History of tubal ligation History of section Family History Father Prostate cancer Hypertension Mother Breast cancer Hypertension Asthma Maternal Aunt Breast cancer Maternal Grandmother Colon cancer Maternal Aunt Breast cancer Sister Bone cancer Social History Household Members: Children Household Members Other:: 2 daughters and 3 dogs Housing: House Do you presently have visiting nurse or other home services: No Alcohol intake: never Comment: 5 min safety checks Patient Tobacco Use Status: Never used Tobacco Tobacco use type: Cigarette e-Cigarette/Vaping Use: Never Used Second Hand Smoke Exposure: No Advance Directives Date on File: 08/12/20 service: No Current occupational status: disabled Current occupational exposures/hazards: No Sexual orientation: Straight/Heterosexual Gender identity: Female Cognitive needs: Yes (cane) Hearing needs: No Vision needs: Yes (Glasses) Female Reproductive History Menstrual Age of Menarche: 10 Review of Systems Const Denies fatigue, Denies fever(s), Denies night sweats, Denies poor appetite and Denies weight loss ENT Reports Normal hearing present, Denies dental pain, Reports dysphagia, Denies hearing loss, Denies mouth pain, Denies odynophagia, Denies throat swelling, Denies tongue swelling and Reports other (Dentition adequate) Card Reports no additional complaints Resp Reports no additional complaints GI Details: Denies abdominal pain, Denies melena, Denies bloating, Denies hematochezia, Reports constipation, Denies GI cramping, Reports dysphagia, Denies excessive flatus, Denies early satiety, Reports heartburn, Denies diarrhea, Denies nausea, Denies odynophagia, Denies vomiting and Denies hematemesis Skin/Breast Denies pruritus, Denies lesions, Denies rash and Denies jaundice Neuro Reports Normal hearing present and Denies Abnormal speech present Endo Denies fatigue Aller/Immun Denies throat swelling and Denies tongue swelling Physical Exam Vital Signs: Last Vital Signs Pulse 74 10/11/24 13:52 BP 128/62 10/11/24 13:52 Pulse Ox 97 10/11/24 13:52 Oxygen Delivery Method Room Air 10/11/24 13:52 BMI result Body Mass Index 20.8 Const General: cooperative, no acute distress, well developed and well groomed Nutritional Appearance: average body habitus and well nourished Orientation/consciousness: oriented to person, oriented to place and oriented to time Limitations: language barrier HEENT Head: Yes normocephalic and Yes atraumatic Eyes General: appearance normal, both eyes and all related structures Pupils: Equal, round and reactive pupils present Neck Neck: Yes normal visual inspection and Yes no lymphadenopathy Thyroid: Thyroid normal Resp Effort & Inspection: normal respiratory effort and able to speak in complete sentences Auscultation: clear to auscultation bilaterally Cardio Rate: regular rate Rhythm: regular rhythm Heart sounds: Normal, physiologic split S2 sound present Peripheral pulses: radial pulses present and posterior tibial pulses present GI Inspection: No distended and No Abdominal panniculus present Palpation (GI): Soft to palpation, nontender, no guarding, not rigid and No hepatosplenomegaly present Percussion: Yes normal to percussion Auscultation: normal bowel sounds Rectal Exam - Female: deferred Skin General skin exam: no rashes or lesions noted, turgor normal, skin not dry, no jaundice, No spider nevi and no striae Rashes: no rashes Nails: normal Neuro General: oriented to person, oriented to place and oriented to time Cranial nerves: Yes Equal, round and reactive pupils present and Yes Normal hearing present Speech: No Abnormal speech present Extrem General: Yes normal to inspection, No clubbing, No cyanosis and No edema Psych Appearance: grossly normal and well kempt Mental Status: mental status grossly normal Speech and movement: Normal speech and movement present Affect: normal affect Attitude: cooperative Thought process: not confabulating and Impoverished thought process present Thought content: Normal thought content present Insight: Limited insight present (Psych) Judgement: Limited judgement present (Psych) Results Reviewed Results Reviewed: EGD/COLONOSCOPY 03/20/24 Findings: Larynx:normal Esophagus: GE junction at 35 cm, diaphragm hiatus at 35 cm, mild esophagitis, bx taken from GEJ, dsital and proximal esophagus, balloon dilation done to 18 mm at LES and UES-no tears seen Stomach: Patchy erythema and scarring with few erosions seen. Biopsies were obtained. Grade 2 flap valve on retroflexed examination of the cardia. Duodenum: Normal bulb and descending duodenum, Findings: Terminal Ileum-not intubated due to looping melanosis coli noted Cecum:normal Right sided retroflexion- normal Ascending Colon: normal Transverse Colon -normal Descending Colon:normal Sigmoid Colon: normal Rectum: Retroflexion with small internal hemorrhoids, grade I Anorectum - normal Impression and Post Procedure Diagnosis: Endoscopy Findings: mild esophagitis gastritis Colonoscopy Findings: melanosis coli internal hemorrhoids Plan: Await Pathology results Repeat Colonoscopy in 5 years due to some areas with fair prep or earlier if clinically indicated High fiber diet leaflet avoid straining at stool, epsom salts and sitz bath, anusol supps or cream if H pylori pos then treat BIOPSY Received: 03/20/24 ADDENDUM REPORT Addendum Addendum #1 Immunostain for H. pylori on A is negative. Additional level with AB/PAS on B is negative for intestinal metaplasia. Controls stain appropriately. Electronically Signed By: Zahra Bojorquez 03/25/24 0403 Diagnosis A. Stomach, biopsy: Gastric antral and body mucosa with mild reactive changes and focal minimal chronic inactive inflammation; negative for intestinal metaplasia and dysplasia. B. Gastroesophageal junction, biopsy: Columnar mucosa with minimal-mild chronic active inflammation; no intestinal metaplasia seen on initial levels; no squamous component present. C. Esophagus, proximal, biopsy: Squamous mucosa with spongiosis and focal increased intraepithelial lymphocytes, and focal submucosal glands; no columnar mucosa present (see comment). D. Esophagus, distal, biopsy: Squamous mucosa with focal mild intraepithelial lymphocytes and rare neutrophils suggesting esophagitis; no columnar mucosa present. Comment: (A): Immunostain for H. pylori pending; addendum to follow. (B): Additional level with AB/PAS stain pending; addendum to follow. (C): The findings may represent a nonspecific reaction pattern, but lymphocytic esophagitis is not excluded and clinical correlation is necessary. Assessment & Plan Assessment & Plan (1) Dysphagia: Comment: ORAL PHASE WITH CHOKING ON SOLID FOODS Code(s): R13.10 - Dysphagia, unspecified Category: Medical Qualifiers: Dysphagia type: oral phase Qualified Code(s): R13.11 - Dysphagia, oral phase (2) GERD (gastroesophageal reflux disease): Code(s): K21.9 - Gastro-esophageal reflux disease without esophagitis Category: Medical Qualifiers: Esophagitis presence: without esophagitis Qualified Code(s): K21.9 - Gastro-esophageal reflux disease without esophagitis (3) Constipation: Code(s): K59.00 - Constipation, unspecified Category: Medical (4) Tubular adenoma of colon: Comment: 03/2024 scope= negative study repeat in 5 years, fair prep; 2019 severe TICS, no polyps Code(s): D12.6 - Benign neoplasm of colon, unspecified Category: Medical Plan DJIBOUTIAN #Niki Live She feels that the dilation helped a little bit she has found that she needs to cut her food small and eat slowly and relax or she will choke. She still will choke about 5 times a month. I think that esophageal spasm may be a large factor, especially since she admits that it happens more if she is not relaxed. We will give a trial of hyoscamine. She also continues on her Dexilant, bisacodyl, simethicone and Zofran. The bisaocydl is helping her well to move her bowels. ROV 6 weeks. Medications: New hyoscyamine sulfate (Levsin/SL) 0.125 mg PO .tidac 90 tabs 6RF dyspepsia R13.11 - Dysphagia, oral phase dexlansoprazole (Dexilant) 60 mg PO DAILY 30 caps 6RF K21.9 - Gastro-esophageal reflux disease without esophagitis bisacodyl 10 mg (2 x 5 mg) PO BEDTIME 60 tabs 6RF simethicone (Gas Relief (simethicone)) 125 mg PO BID-QID PRN 90 tabs 6RF abdominal distention Coding Level of Care Code Est Pt Level 4 (04268) Diagnoses Oral phase dysphagia R13.11 Dysphagia type: oral phase Gastroesophageal reflux disease without esophagitis K21.9 Esophagitis presence: without esophagitis Constipation K59.00 Tubular adenoma of colon D12.6
--- OUTSIDE RECORDS SUMMARY | 2024-10-11 13:49 | XMS_ITS | Clinical Summary ---
Author Organization [employer] Address [address] [place] [address] [address] [place] [address] Care Team Providers Care Shaker Repairer Name Role Phone Unavailable Primary Care Provider [...]
[2024-10-11 13:52] VITALS: BP 128/62; PULSE 74; O2SAT 97; BMI 20.8
== END 2024-10-11 14:17 | disposition home or self-care (01) ==
LOC: HO.HGI 13:41
PROVIDERS: PCP Internal Medicine; Visit Provider Nurse Practitioner
DX: R13.11 Dysphagia, oral phase (principal); K21.9 Gastro-esophageal reflux disease without esophagitis; K59.00 Constipation, unspecified; D12.6 Benign neoplasm of colon, unspecified
CPT/HCPCS: 99214

== ENCOUNTER → 2024-10-11 13:40 | Outpatient (BNVA) | payer OTHER, SELFPAY | PROVIDERS: PCP Internal Medicine; Visit Provider Nurse Practitioner | DX: R11.0 Nausea (principal); R13.10 Dysphagia, unspecified; D12.5 Benign neoplasm of sigmoid colon; K21.9 Gastro-esophageal reflux disease without esophagitis; K59.00 Constipation, unspecified | CPT/HCPCS: 99212 ==

== ENCOUNTER → 2024-10-14 13:54 | Outpatient (REF) | payer OTHER, SELFPAY ==
--- NOTE | 2024-10-14 13:58 | CA_ITS ---
Transthoracic Echocardiogram Patient (Last, First, Middle): Zara Velez E Gender: Female Date of : 1965 Age: 59 Procedure Date: 10/14/2024 Procedure Type: Transthoracic Echocardiogram Location: OP Height: 157. cm Weight: 50.8 kg BSA: 1.49 m2 Heart Rate: 73 bpm BP: 140 / 80 mmHg Electrical Test Technician: AMOL Referring MD: Ian Mishra MD Symptoms: R06.02 - Shortness of breath Study Quality: Fair/ Breast implants ECG Rhythm: Sinus Conclusions: - The left ventricular systolic function is mildly decreased. The calculated ejection fraction is 44% by biplane method. - The inferoseptal wall, the basal inferior, and basal inferolateral segments are hypokinetic. - There is a small loculated pericardial effusion overlying the left ventricle. Findings Left Ventricle Normal left ventricular cavity size. There is normal left ventricular wall thickness. The left ventricular systolic function is mildly decreased. The calculated ejection fraction is 44% by biplane method. There is mild global hypokinesis. Evidence suggests grade I (mild) diastolic dysfunction. Wall Motion Rest Echo Findings The inferoseptal wall, the basal inferior, and basal inferolateral segments are hypokinetic. Right Ventricle Normal right ventricular cavity size and systolic function. Atria Both atria are normal in size. Aortic Valve There is a normal trileaflet aortic valve. There is no aortic valve stenosis. There is no aortic valve regurgitation. Mitral Valve The mitral valve appears normal. There is trace mitral valve regurgitation. There is no mitral valve stenosis. Pulmonic Valve The pulmonic valve is likely normal. Tricuspid Valve There is trace tricuspid valve regurgitation. There is no evidence of pulmonary hypertension. Great Vessels The asc aorta is normal in size. Venous The inferior vena cava is normal in size and collapses greater than 50% with inspiration. Pericardium/Pleural There is a small loculated pericardial effusion overlying the left ventricle. Prior Study Comparison Changes noted compared to prior study dated: 03/19/2021. Slight decrease from reported LVEF, but on comparison of images, no major change including wall motion. Measurements 2D Linear Measurements IVSd: 0.64 0.6-0.9/0.6-1.0 cm LVIDd: 5.14 3.9-5.3/4.2-5.9 cm LVIDd Index: 3.45 2.4-3.2/2.2-3.1 cm/m2 LVIDs: 3.89 2.0-3.6 cm LVPWd: 0.68 0.7-1.1 cm LA Diam: 2.70 2.7-3.8/3.0-4.0 cm LAIDs Index: 1.81 1.5-2.3 cm/m2 LV Mass: 139.01 67-162/88-224 g LV Mass Index: 93.30 43-95/49-115 g/m2 LVOT Diam: 1.80 3.0+(-)1.3 cm 2D Systolic Function EF 4C: 43.40 >55% EF 2C: 44.40 >55% EF BiP: 44.40 >55% Mitral Valve MV Pk E: 0.92 MV PK A: 1.22 MV Decel Time: 174.00 E/A: 0.80 E'Lateral: 5.55 E'Medial: 5.00 E/E' Med: 18.50 E/E' Lat: 16.60 PHT: 51.00 MVA PHT: 4.31 Decel [place]: 5.30 Aortic Valve AoV Pk Binh: 1.39 AoV Mn Binh: 0.98 AoV VTI: 0.31 AoV Pk Grad: 8.00 Aov Mn Grad: 4.00 CHERYL Cont.VTI: 1.71 LVOT LVOT Pk Binh: 0.94 LVOT Mn Binh: 0.64 LVOT VTI: 0.21 LVOT Pk Grad: 3.00 LVOT Mn Grad: 2.00 LVOT Diam: 1.80 LVOT Area: 2.54 Diastolic Function MV Pk E: 0.92 MV Pk A: 1.22 E/A: 0.80 E'Medial: 5.00 E/E' Med: 18.50 E' Laterial: 5.55 E/E' Lat: 16.60 Right Ventricle TAPSE (mm): 26.90 TVS' Binh: 13.30 Tricuspid Valve TR Pk Binh: 1.77 TR Pk Grad: 13.00 RA Press: 3.00 RVSP: 16.00 Great Vessels Aorta Sinus of Valsalva: 2.70 2.0-3.5 cm Ao Asc: 2.60 2.1-3.4 cm Ao Arch: 3.00 Pulmonary Valve PV Pk Binh: 0.81 Peak PV Grad: 3.00 Updated in Other Vendor System with Status of Final Ian Mishra MD electronically signed on 10/15/2024 11:32:53 AM with status of Final
--- NOTE | 2024-10-14 13:58 | HM_ITS ---
Conclusion: 1. Patient was monitored for total period of 7 days 2. Baseline was normal sinus rhythm with average heart of 79 beats per minute 3. No significant pauses noted 4. Rare PACs noted 5. Patient marked the counter 13 times with different symptoms of nausea, vomiting, shortness of breath, chest pain, dizziness all correlating with sinus rhythm MTDD
--- OUTSIDE RECORDS SUMMARY | 2024-10-14 15:32 | XMS_ITS | Clinical Summary ---
Author Organization [employer] Address [address] [place] [address] [address] [place] [address] Care Team Providers Care Vision Therapist Name Role Phone Unavailable Primary Care Provider [...]
== END ==
LOC: HO.CARD 13:54
PROVIDERS: PCP Internal Medicine; Visit Provider Internal Medicine
DX: R06.02 Shortness of breath (principal); R00.2 Palpitations
CPT/HCPCS: 93242; 93306

== ENCOUNTER → 2024-10-14 13:58 | Outpatient (BNV) | payer OTHER, SELFPAY | PROVIDERS: PCP Internal Medicine; Visit Provider Internal Medicine | DX: I31.39 Other pericardial effusion (noninflammatory) (principal); I51.89 Other ill-defined heart diseases | CPT/HCPCS: 93306 ==

== ENCOUNTER 2024-11-25 15:27 | Outpatient (AMB) | payer OTHER, SELFPAY ==
[2024-11-25 15:29] VITALS: BP 112/74; PULSE 85; O2SAT 97; BMI 21.1
--- NOTE | 2024-11-25 15:29 | A.OFFPC_ITS ---
Vital Signs 11/25/24 15:29 Height 5 ft 2 in Weight 115 lb 6 oz BMI 21.1 BP 112/74 Blood Pressure Location Lt brachial Position Sitting Pulse 85 Pulse Source Pulse Oximeter Pulse Oximetry (%) 97 Oxygen Delivery Method Room Air Intake Visit Reasons: 4 Months Rn New Grad Required: No Accompanied by: Self / Same As Patient Allergies Sulfa (Sulfonamide Antibiotics) Allergy (Severe, Verified 11/25/24 15:58) Itching codeine (CODEINE) Allergy (Intermediate, Verified 11/25/24 15:58) ITCHING hydroxychloroquine (From PLAQUENIL) Allergy (Intermediate, Verified 11/25/24 15:58) VOMITING morphine (MORPHINE) Allergy (Intermediate, Verified 11/25/24 15:58) ITCHING Estrogens Allergy (Mild, Verified 11/25/24 15:58) Unknown levothyroxine sodium Allergy (Unknown, Verified 11/25/24 15:58) rash,throat closes prednisone Allergy (Unknown, Verified 11/25/24 15:58) Unknown Corticosteroids (Glucocorticoids) (CORTICOSTEROIDS (GLUCOCORTICOIDS)) Adverse Reaction (Severe, Verified 11/25/24 15:58) DIFFICULTY BREATHING escitalopram (From Lexapro) Adverse Reaction (Severe, Verified 11/25/24 15:58) seizure meloxicam Adverse Reaction (Severe, Verified 11/25/24 15:58) Gastrointestinal Upset tadalafil (From Cialis) Adverse Reaction (Intermediate, Verified 11/25/24 15:58) Nausea and Vomiting acetaminophen (Percocet) Adverse Reaction (Unknown, Verified 11/25/24 15:58) Unknown duloxetine Adverse Reaction (Unknown, Verified 11/25/24 15:58) Unknown fluconazole Adverse Reaction (Unknown, Verified 11/25/24 15:58) Itch, pain, Medication List - Last Reconciled 11/25/24 by Chuck Davila MD albuterol sulfate 90 mcg/actuation (Ventolin HFA) 2 puffs inhalation Q6H PRN bisacodyl 10 mg (2 x 5 mg) PO BEDTIME bupropion HCl XL 150 mg PO QAM clonazepam 1 mg PO TID PRN dexlansoprazole (Dexilant) 60 mg PO DAILY diclofenac sodium 75 mg PO BID diclofenac sodium 1% 2 grams topical ONCE PRN ferrous sulfate 324 mg PO DAILY gabapentin 300 mg PO TID hyoscyamine sulfate (Levsin/SL) 0.125 mg PO .tidac lamotrigine 50 mg (2 x 25 mg) PO BEDTIME levothyroxine (Synthroid) 50 mcg PO DAILY lidocaine 5% 1 patch topical DAILY nystatin 1 mL PO DAILY onabotulinumtoxinA (Botox) 200 units IM [id number] ondansetron HCl 8 mg PO BEDTIME PRN oxybutynin chloride ER 10 mg PO DAILY simethicone (Gas Relief (simethicone)) 125 mg PO BID-QID PRN sumatriptan succinate 50 mg PO DAILY PRN trazodone 100 mg PO BEDTIME Tobacco use date assessed: 11/25/24 Dental Screening Dental Screen Date: 11/25/24 Did you have a dental visit in the last 12 months?: No Did you have a dental problem in the last 6 months where you did not have access to dental care?: No Was dental information given to patient?: No HPI 4 Months HPI Details Patient comes in today for her follow-up visit She continues to present with multiple complaints, some of them vague symptoms, during each visit as she has done so in the past She also continues to complain of diffuse pain due to her fibromyalgia She currently still has occasional migraine headaches and reports frequent dizziness as well lately Notes that she gets so dizzy just moving around sometimes that she reports fal ling 4 times separately in the same day due to her increased dizziness She continues to complain of difficulty swallowing and has a tendency to choke when she eats too fast or eats larger portions so she tends to keep her food portions small and tends not to eat too much She is being seen by GI and has some procedure(s) coming up over the next month for further evaluation She denies any exertional chest pains but reports (+) mild shortness of breath on exertion She is also scheduled to be seen by cardiology next month and has a nuclear stress testing ordered No nausea/vomiting, no abdominal pain No change in bowel habits noted She is now following up with Dr. Gale for history breast cancer as her previous oncologist, Dr. Nevarez, is no longer practicing Oncology She has appointment coming up with rheumatology as well in December 2024 She had some follow-up labs done last month - to discuss her results [facility] Medical History SOB (shortness of breath) Bipolar depression Headache Cerumen impaction Otitis media Arthralgia Nausea Recurrent cystitis Screening for tuberculosis History of breast cancer in female Pharyngitis Oral pharyngeal candidiasis Bipolar 1 disorder Chronic idiopathic constipation Depression Chronic pruritus Urticaria Vitamin D deficiency Polyarthralgia Small bowel motility disorder Dry mouth and eyes Seborrhea capitis in adult Bilateral sciatica Urinary frequency Abdominal pannus Positive sm/[employer] antibody Family history of polyps in the colon Fracture of neck of left humerus Humeral head fracture Chronic gastritis Insomnia Hypothyroidism Seropositive rheumatoid arthritis Leukopenia Gingivitis History of breast cancer Estrogen receptor positive status [ER+] Ductal carcinoma in situ (DCIS) of left breast Autoimmune disorder PTSD (post-traumatic stress disorder) COVID-19 Bilateral knee pain Fibromyalgia Schatzki's ring Rheumatoid arthritis Small bowel motility disorder Osteoporosis Raynaud's disease without gangrene Anxiety Primary insomnia Constipation Acquired hypothyroidism Systemic lupus erythematosus Left temporomandibular joint disorder, unspecified Surgical History Hx of abdominoplasty History of esophagogastroduodenoscopy (EGD) Hx of colonoscopy History of bilateral mastectomy History of total abdominal hysterectomy and bilateral salpingo-oophorectomy History of cholecystectomy History of tubal ligation History of section Family History Father Prostate cancer Hypertension Mother Breast cancer Hypertension Asthma Maternal Aunt Breast cancer Maternal Grandmother Colon cancer Maternal Aunt Breast cancer Sister Bone cancer Social History Household Members: Children Household Members Other:: 2 daughters and 3 dogs Housing: House Do you presently have visiting nurse or other home services: No Alcohol intake: never Comment: 5 min safety checks Patient Tobacco Use Status: Never used Tobacco Tobacco use type: Cigarette e-Cigarette/Vaping Use: Never Used Second Hand Smoke Exposure: No Advance Directives Date on File: 08/12/20 service: No Current occupational status: disabled Current occupational exposures/hazards: No Sexual orientation: Straight/Heterosexual Gender identity: Female Cognitive needs: Yes (cane) Hearing needs: No Vision needs: Yes (Glasses) Female Reproductive History Menstrual Age of Menarche: 10 Questionnaire PHQ-9 Over the last 2 weeks, how often have you been bothered by any of the following problems? 1. Little interest or pleasure in doing things: not at all 2. Feeling down, depressed, or hopeless: nearly every day 3. Trouble falling or staying asleep, or sleeping too much: more than half the days 4. Feeling tired or having little energy: more than half the days 5. Poor appetite or overeating: more than half the days 6. Feeling bad about yourself - or that you are a failure or have let yourself or your family down: nearly every day 7. Trouble concentrating on things, such as reading the newspaper or watching television: nearly every day 8. Moving or speaking so slowly that other people could have noticed. Or the opposite - being so fidgety or restless that you have been moving around a lot more than usual: nearly every day 9. Thoughts that you would be better off or of hurting yourself in some way: nearly every day Total score: 21 Depression Screening Interpretation: Positive Depression Screening Follow-up: Existing condition and In treatment Depression Screening Done: Yes 22686 - PHQ-9 Billing: Yes Source: Developed by Drs. Som Barrera, Stephy Taylor, Michele Li and colleagues, with an educational coleman from [employer]. Thrive Questionnaire Date Thrive assessed: 11/25/24 I am a: Patient What is your living situation today?: I choose not to answer this question Within the past 12 months, did the food you bought not last and you didn't have the money to get more?: Sometimes True Within the past 12 months, did you worry whether your food would run out before you got money to buy more?: Sometimes True Do you have trouble paying for medicines?: No Do you have trouble getting transportation to medical appointments?: No Do you have trouble paying your heating and electricity bill?: I choose not to answer this question Do you have trouble taking care of your child, family member or friend?: I choose not to answer this question Do you have trouble with day-to-day activities such as bathing, preparing meals, shopping, managing finances, etc.?: Yes Are you currently unemployed and looking for a job?: No Are you interested in more education?: Yes Please select the resources that you would like help with: Transportation Currently or been in a relationship where the following occur: I choose not to answer THRIVE Score: 2 AUDIT C Alcohol Use Questionnaire (AUDIT-C) 1. How often do you have a drink containing alcohol?: Never 3. How often do you have six or more drinks on one occasion?: Never Total Score: 0 Score Reviewed/Action Taken: Yes MOSHE-7 AMB Questionnaire MOSHE-7 Date MOSHE - 7 assessed: 11/25/24 Feeling nervous, anxious, or on edge: 1 = Several days Not being able to stop or control worryin = Several days Worrying too much about different things: 1 = Several days Trouble relaxin = Several days Being so restless that it is hard to sit still: 1 = Several days Becoming easily annoyed or irritable: 1 = Several days Feeling afraid as if something awful might happen: 1 = Several days Total MOSHE-7 score (0-4 normal; 5-9 mild; 10-14 moderate; 15-21 severe): 7 Source: Developed by Drs. Som Barrera, Stephy Taylor, Michele Li and colleagues, with an educational coleman from [employer]. Review of Systems Const Reports body aches (diffuse), Denies chills, Reports fatigue (chronic), Denies fever(s) and Reports headache(s) (recurrent) ENT Reports dysphagia (see HPI), Reports dizziness (frequent lately), Denies otalgia, Reports headache(s) (recurrent), Reports neck pain (chronic), Denies odynophagia and Denies sore throat Card Denies chest pain, Reports irregular heart rhythm (c/o on and off sensations of fluttering or palpitations of her heart), Denies palpitations and Reports dysp rambo on exertion (mild, chronic) Resp Denies chest congestion, Denies cough, Reports dyspnea on exertion (mild, chronic) and Denies wheezing GI Denies abdominal pain, Reports constipation (Rx helping), Reports dysphagia (see HPI), Denies heartburn, Denies diarrhea, Denies nausea, Denies odynophagia and Denies vomiting Denies hematuria, Reports nocturia, Denies dysuria and Denies urinary urgency Musc Reports back pain (over the lower back, on and off; also over both shoulder areas ), Reports arthralgias (involving multiple joints, especially both shoulders/scapular areas) and Reports neck pain (chronic) Skin/Breast Denies rash Neuro Reports dizziness (frequent lately) and Reports headache(s) (recurrent) Psych Reports anxiety and Reports depression Endo Reports fatigue (chronic) and Denies palpitations Aller/Immun Denies wheezing Physical exam (Primary Care) Vital Signs: Last Vital Signs Pulse 85 11/25/24 15:29 BP 112/74 11/25/24 15:29 Pulse Ox 97 11/25/24 15:29 Oxygen Delivery Method Room Air 11/25/24 15:29 BMI result Body Mass Index 21.1 Tobacco/Smoking Status: Tobacco use Status Tobacco use date assessed 11/25/24 11/25/24 15:32 Patient Tobacco Use Status Never used Tobacco 11/25/24 15:32 Tobacco use type Cigarette 11/25/24 15:32 e-Cigarette/Vaping Use Never Used 11/25/24 15:32 PHQ-9: PHQ-9 Score PHQ-9: Total score 21 11/25/24 15:32 Depression Screening Interpretation: Positive Depression Screening Follow-up: Existing condition and In treatment Thrive Assessment: Date of Thrive Assessment Date Thrive assessed 11/25/24 11/25/24 15:32 Currently or been in a relationship where the following occur: I choose not to answer Const General: no acute distress, alert and tired appearing HENMT Ears: TM's normal bilaterally and EAC's normal Throat: Yes posterior oropharynx normal and Yes tonsils normal Neck Neck: No lymphadenopathy and Yes tender (over the cervical spine and paraspinal areas bilaterally) Thyroid: Thyroid normal Resp Auscultation: clear to auscultation bilaterally, no rales and no wheezes Cardio Rate: regular rate Rhythm: regular rhythm Heart sounds: no murmurs GI Palpation (GI): Soft to palpation and nontender Auscultation: normal bowel sounds General: Yes no CVA tenderness Back/Spine/Pelvis Back: no CVA tenderness Thoracic/Lumbar Spine: paraspinal muscle tenderness bilaterally (over the cervical and thoracolumbar spine (diffuse)) and lumbar spinal tenderness Skin Rashes: no rashes Extrem General: Yes no clubbing, cyanosis or edema Right upper extremity: shoulder/upper arm Details: tenderness (diffusely over the scapular area) Left upper extremity: shoulder/upper arm Details: tenderness (diffusely over the scapular areas) Results Reviewed Results Reviewed: Laboratory Tests 10/02/24 12:25 WBC 3.7 L Hgb 10.1 L Hct 31.9 L Plt Count 188 Ferritin 11 CA 27-29 33 Coding Level of Care Code Est Pt Level 4 (45175) Diagnoses Fibromyalgia M79.7 Polyarthralgia M25.50 Systemic lupus erythematosus, unspecified SLE type, unspecified organ involvement status M32.9 Systemic lupus erythematosus type: unspecified Systemic lupus erythematosus organ involvement: unspecified Dystonia G24.9 Nonintractable episodic headache, unspecified headache type R51.9 Headache type: unspecified Headache chronicity pattern: episodic headache Intractability: not intractable Heart palpitations R00.2 Oral phase dysphagia R13.11 Dysphagia type: oral phase Acquired hypothyroidism E03.9 Chronic pruritus L29.9 Anemia, unspecified type D64.9 Anemia type: unspecified type Osteoporosis without current pathological fracture, unspecified osteoporosis type M81.0 Osteoporosis type: unspecified Presence of current pathological fracture: without current pathological fracture Midline low back pain without sciatica, unspecified chronicity M54.50 Chronicity: unspecified Back pain laterality: midline Sciatica presence: without sciatica Vitamin D deficiency E55.9 Gastroesophageal reflux disease without esophagitis K21.9 Esophagitis presence: without esophagitis Chronic idiopathic constipation K59.04 Interstitial cystitis N30.10 Primary insomnia F51.01 Anxiety F41.9 Bipolar depression F31.9 Additional Codes PHQ-9 - 89197 - PHQ-9 Billing: Yes ([id number]) Assessment & Plan Assessment & Plan (1) Fibromyalgia: Code(s): M79.7 - Fibromyalgia Category: Medical Plan: Patient used to see Dr. Castrejon at the [facility] [place] previously and was reportedly advised that although she tested positive for DANA, all other workups were negative and she has no clinical evidence of active disease and there is no indication for treatment for lupus or RA at the time She was also reportedly advised that most of her pain symptoms are due to fibromyalgia She was seen by [place]ology [place] [facility] and was advised of the same - that she has no evidence of active inflammatory joint disease and there is no indication for therapy; was also reportedly advised that she may have fibromyalgia but to continue following up with her PCP for this as they do NOT treat or manage fibromyalgia, which patient finds strange Have advised patient that rheumatology nowadays mostly do not see fibromyalgia patients anymore and management of these are often left up to the patient's PCP to handle Patient is again encouraged to stay active and exercise regularly (as tolerated) to help manage her fibromyalgia symptoms Continue Lidocaine patches PRN and Gabapentin 300 mg TID (2) Polyarthralgia: Code(s): M25.50 - Pain in unspecified joint Category: Medical Plan: Continue Diclofenac sodium 1% gel topically PRN Follow up with [facility] [place] [facility] as scheduled She was going to physical therapy previously but states that she did not experience any relief from PT and has been advised to consider a referral to physiatry instead (3) Systemic lupus erythematosus: Code(s): M32.9 - Systemic lupus erythematosus, unspecified Category: Medical Qualifiers: Systemic lupus erythematosus type: unspecified Systemic lupus erythematosus organ involvement: unspecified Qualified Code(s): M32.9 - Systemic lupus erythematosus, unspecified Plan: Patient reports (+) Hx of SLE and she received some unrecalled Tx for lupus while she was still living in [place] many years ago but did not tolerate the Tx She has been advised by Rheumatology here on more than one occasion that alth ough she tested positive for DANA, she has no clinical evidence of active disease and there is no indication for treatment for lupus or RA at this time Per her request, she was again referred for rheumatology consultation and she is scheduled to be seen again by [facility] [place] in December 2024 for reevaluation (4) Dystonia: Code(s): G24.9 - Dystonia, unspecified Category: Medical Plan: She continues to receive botox injections from neurology when needed for cervical dystonia Follow up with neurology as scheduled (5) Headache: Code(s): R51.9 - Headache, unspecified Category: Medical Qualifiers: Headache type: unspecified Headache chronicity pattern: episodic headache Intractability: not intractable Qualified Code(s): R51.9 - Headache, unspecified Plan: Continue Sumatriptan 50 mg PRN Patient is reminded to continue avoiding any potential migraine triggers as best as she can Follow up with neurology as scheduled (6) Heart palpitations: Code(s): R00.2 - Palpitations Category: Medical Plan: Her extended Holter monitor done a few months ago was unrevealing as her reportedly multiple vague symptoms all correlated with NSR She does have a decreased EF and mild left ventricular dysfunction seen on her recent echocardiogram and she is scheduled for nuclear stress testing with cardiology next month for further evaluation Patient also reports experiencing frequent dizziness lately that she feels are triggered or related to movement and changes in position She is advised to mention this to cardiology at her upcoming appointment as she may also need to be tested for orthostasis or POTS and may need additional testing like tilt table test done (7) Dysphagia: Comment: ORAL PHASE WITH CHOKING ON SOLID FOODS Code(s): R13.10 - Dysphagia, unspecified Category: Medical Qualifiers: Dysphagia type: oral phase Qualified Code(s): R13.11 - Dysphagia, oral phase Plan: Modified barium swallow done last year revealed the presence of a mild esophageal webbing at the level of C5 She was seen by GI for follow up and underwent EGD and colonoscopy back on 03/19/2024 - EGD revealed findings of mild esophagitis and gastritis She also underwent balloon dilatation of her esophagus, with (+) perceived improvement of her dysphagia since She is again scheduled for some procedure with GI sometime in the next 1 to 2 months Follow up with GI as scheduled (8) Acquired hypothyroidism: Code(s): E03.9 - Hypothyroidism, unspecified Category: Medical Plan: Continue Synthroid 50 mcg QD Will recheck her TFTs in 4 months for follow up Follow up with endocrinology as scheduled (9) Chronic pruritus: Code(s): L29.9 - Pruritus, unspecified Category: Medical Plan: She is currently still taking Loratadine 10 mg Q AM and Cetirizine 10 mg 1 to 2 tablets Q HS PRN for her symptoms She recently failed Xolair and was started on Dupixent instead She has been seeing allergists at [facility] for the past couple of years and is encouraged to continue following up with them as scheduled (10) Anemia: Comment: mild Code(s): D64.9 - Anemia, unspecified Category: Medical Qualifiers: Anemia type: unspecified type Qualified Code(s): D64.9 - Anemia, unspecified Plan: She remains anemic on her recent labs but her H/H has been stable for the past year Continue Ferrous Sulfate 325 mg QD States that she was advised that she will get iron infusions only on an as- needed basis Her colonoscopy done back in March 2024 came back showing only findings of melanosis coli and (+) internal hemorrhoids Due to fair colon prep, she was recommended to get a repeat colonoscopy in 5 years Will have patient recheck her labs in 4 months for follow up (11) Osteoporosis: Code(s): M81.0 - Age-related osteoporosis without current pathological fracture Category: Medical Qualifiers: Osteoporosis type: unspecified Presence of current pathological fracture: without current pathological fracture Qualified Code(s): M81.0 - Age- related osteoporosis without current pathological fracture Plan: Continue oral calcium and Vitamin D supplements daily Fall precautions reinforced Follow up with endocrinology as scheduled - she was referred by Dr. Brandon to the [facility] Vitamin D and bone metabolism unit for a second opinion but states that she has not yet been contacted for an appointment Have advised patient / daughter to reach out to Dr. Brandon regarding this as I am not familiar with the place that she was referred to nor with the reason as to why she is being referred there (12) Low back pain: Code(s): M54.5 - Low back pain Category: Medical Qualifiers: Chronicity: unspecified Back pain laterality: midline Sciatica presence: without sciatica Qualified Code(s): M54.50 - Low back pain, unspecified Plan: Repeat lumbar spine x-rays done back in July 2024 revealed (+) mild spondylosis in the lower lumbar spine with no acute findings Reinforced activity and weight-lifting restrictions to minimize aggravating her low back pain (13) Vitamin D deficiency: Code(s): E55.9 - Vitamin D deficiency, unspecified Category: Medical Plan: Continue Vitamin D2 75332 units once a week (14) GERD (gastroesophageal reflux disease): Code(s): K21.9 - Gastro-esophageal reflux disease without esophagitis Category: Medical Qualifiers: Esophagitis presence: without esophagitis Qualified Code(s): K21.9 - Gastro-esophageal reflux disease without esophagitis Plan: Dietary restrictions reinforced Continue Dexilant 60 mg QD (15) Chronic idiopathic constipation: Code(s): K59.04 - Chronic idiopathic constipation Category: Medical Plan: Continue Bisacodyl PRN and Colace 100 mg QD PRN Patient is again encouraged on increased oral fluids and dietary fiber Follow up with GI as scheduled (16) Interstitial cystitis: Code(s): N30.10 - Interstitial cystitis (chronic) without hematuria Category: Medical Plan: Her urinary bladder US done last year revealed (+) posterior wall trabeculations but no generalized bladder wall thickening and no masses or calculi noted S/P cystoscopy with hydrodistention by urology last year, with reported significant improvement of her symptoms following the procedure Patient is again encouraged to increase her oral fluid intake and was advised that drinking cranberry juice may help with her symptoms Follow up with urology as scheduled (17) Primary insomnia: Code(s): F51.01 - Primary insomnia Category: Medical Plan: Sleep hygiene reinforced Continue Trazodone 50 mg Q HS (18) Anxiety: Code(s): F41.9 - Anxiety disorder, unspecified Category: Medical Plan: Continue Clonazepam 1 mg TID PRN Follow up with psychiatry as scheduled (19) Bipolar depression: Code(s): F31.9 - Bipolar disorder, unspecified Category: Medical Plan: Continue Bupropion XL 150 mg QD, Lamotrigine 100 mg BID, Prazosin 1 mg Q HS and Olanzapine 10 mg Q HS Follow-up with Psychiatry as scheduled Plan Follow up in 4 months
--- OUTSIDE RECORDS SUMMARY | 2024-11-25 15:45 | XMS_ITS | Clinical Summary ---
Author Organization [facility] Address [address] [place] [address] Care Team Providers Care Fitness Services Manager Name Role Phone Chuck Davila MD Primary Care Provider [phone]- [phone] Allergies Active Allergy Reactions Criticality Noted Date [...] 73 07/12/2023 4:11 PM EDT Temperature 36.9 C (98.4 F) 07/12/2023 4:11 PM EDT Respiratory Rate - - Oxygen Saturation 100% [...] Cancer Screening (Mammogram) 2013 Influenza Vaccine (#1) 2024 RSV Adult > 60+ Yrs or Pregn ant (1 - 1-dose 75+ series) 2038 Hepatitis B Vaccines Aged Out No long er eligible based on patient's age to complete this topic RSV Ped < 20 months Aged Out No longe r eligible based on patient's age to complete this topic Care Teams Fitness Services Manager Relationship Specialty Start Date End Date Chuck Davila MD [address] [place] [address] [place] [address] PCP - General Internal Medicine 04/07/23
--- OUTSIDE RECORDS SUMMARY | 2024-11-25 15:45 | XMS_ITS | Clinical Summary ---
Author Organization [employer] Address [address] [place] [address] 7[address] [place] [address] Care Team Providers Care Crystal Syrup Maker Name Role Phone Unavailable Primary Care Provider [...] 2023-2 5 season) 2023 Influenza Vaccine (#1) 2024 RSV Patients and Pa tients Aged [...]
--- OUTSIDE RECORDS SUMMARY | 2024-11-25 15:45 | XMS_ITS | Clinical Summary ---
Author Organization [facility] Address [address] [place] [address] Care Team Providers Care Community Youth Secretary Name Role Phone Chuck Davila MD Primary Care Provider [phone] Surgical History Surgery Date Site/Laterality Comments SECTION PROCEDURE: SECTION TUBAL LIGATION PROCEDURE:TUBAL LIGATION MASTECTOMY PROCEDURE:MASTECTOMY COLONOSCOPY PROCEDURE:COLONOSCOPY HYSTERECTOMY PROCEDURE:HYSTERECTOMY Medical History Medical History Date Comments Breast cancer (CMS/HCC V24, CMS/[facility] V28) DX:Breast cancer (HCC) Disease of [...] 2) 2013 Colorectal Cancer Screening: Colonoscopy 03/29/2022 HIV Screening 03/29/2022 Hepatitis C Screening 03/29/2022 Social Influencers of Health Screening 03/29/2022 COVID-19 Vaccine (1 - 2023-2 5 season) 2023 Depression Screening 05/01/2024 Influenza Vaccine (#1) 2024 RSV Immunization Adult Patie nts (1 [...] age to complete this topic Care Teams Community Youth Secretary Relationship Specialty Start Date End Date Chuck Davila MD [address] [place] [address] Dr [address] ANJU Huerta PCP - General 04/07/23
== END 2024-11-25 16:14 | disposition home or self-care (01) ==
LOC: HO.HMCH 15:28
PROVIDERS: PCP Internal Medicine; Visit Provider Internal Medicine
DX: M79.7 Fibromyalgia (principal); M32.9 Systemic lupus erythematosus, unspecified; F31.9 Bipolar disorder, unspecified; M25.50 Pain in unspecified joint; G24.9 Dystonia, unspecified; R51.9 Headache, unspecified; R00.2 Palpitations; R13.11 Dysphagia, oral phase; E03.9 Hypothyroidism, unspecified; L29.9 Pruritus, unspecified; D64.9 Anemia, unspecified; M81.0 Age-related osteoporosis without current pathological fracture

== ENCOUNTER → 2024-11-25 15:27 | Outpatient (BNVA) | payer OTHER, SELFPAY | PROVIDERS: PCP Internal Medicine; Visit Provider Internal Medicine | DX: M79.7 Fibromyalgia (principal); R42 Dizziness and giddiness; M25.50 Pain in unspecified joint; M32.9 Systemic lupus erythematosus, unspecified; G24.9 Dystonia, unspecified; R51.9 Headache, unspecified; R00.2 Palpitations; R13.11 Dysphagia, oral phase; E03.9 Hypothyroidism, unspecified; L29.9 Pruritus, unspecified; D64.9 Anemia, unspecified; M81.0 Age-related osteoporosis without current pathological fracture; M54.50 Low back pain, unspecified; E55.9 Vitamin D deficiency, unspecified; K21.9 Gastro-esophageal reflux disease without esophagitis; K59.04 Chronic idiopathic constipation; N30.10 Interstitial cystitis (chronic) without hematuria; F51.01 Primary insomnia; F41.9 Anxiety disorder, unspecified; F31.9 Bipolar disorder, unspecified | CPT/HCPCS: 96127; 99212 ==

== ENCOUNTER → 2024-12-11 09:46 | Outpatient (REF) | payer OTHER, SELFPAY ==
--- NOTE | ~2024-12-11 | NM_ITS ---
Lexiscan Myocardial perfusion study Indication: Left bundle-branch block Technique: The patient was brought in for a Lexiscan perfusion study on 12/11/2024 and was injected 0.4 mg of Lexiscan intravenously. Within a minute of this injection 25 mCi of sestamibi was given intravenously. Images were obtained using the SPECT gamma camera interlaced with the gating device. Images were obtained in supine position. Resting perfusion study was performed on 12/12/2024. Patient was administered 25 mCi of sestamibi intravenously at rest. Images were then obtained in supine position. Total DLP 94 mGy-cm. Images were processed with the software and compared side to side in short axis, horizontal long axis and vertical long axis views. Findings: Raw aquisition reviewed. Arms by the patient's side. The stress perfusion study showed diminished tracer uptake in the apex. With CT attenuation correction, there is globally reduced uptake most likely artifactual due to adjacent subdiaphragmatic tracer uptake. The gated study shows slightly diminished LV systolic function with calculated LVEF of 48%. LV cavity is normal in size. The gated study shows normal wall thickening and contraction of segments. Resting study shows mildly reduced tracer uptake in the apex. There is improvement with CT attenuation correction suggestive of soft tissue attenuation artifact. Gating at rest reveals normal wall motion with ejection fraction at 41%. The findings are consistent with fixed apical defect. No clear reversible defects. MA/MA cardiolite stress test Impression: 1. Myocardial perfusion imaging study shows fixed apical defect, either artifactual or related to left bundle branch block. No clear evidence of ischemia or infarction otherwise. 2. Gated LVEF is 48% during stress and 41% during rest. Correlate with echocardiogram. 3. Transient ischemic dilatation not present. EKG component of the test reported separately. Electronically signed by: Ian Mishra MD 12/12/2024 03:43 PM EDT
--- NOTE | 2024-12-11 09:48 | CA_ITS ---
Acquisition Time: 2024-12-11 10:00:17 Total Exercise Time: 00:02:00 Test Indications: LBBB Medications: SEE H&P Protocol: LEXISCAN Max HR: 98 BPM 61% of Pred: 159 BPM Max BP: 134/88 mmHG Max Work Load: 1.0 METS Pharmacological stress test with Lexiscan while pt swings her legs in chair, with reports of SOB, without any arrythmias, with normotensive repsonse to injection. Nondiagnostic EKG for ischemia. In recovery, pt treated with IVP Aminophylline 75 mg to reverse Lexiscan after which pt feeling back to baseline. Nuclear images pending. Test reviewed with Dr. Hudson. Referred By: Ian Mishra Electronically Signed By: Sadiq Purvis
--- OUTSIDE RECORDS SUMMARY | 2024-12-11 10:19 | XMS_ITS | Clinical Summary ---
Author Organization [facility] Address [address] [place] [address] Care Team Providers Care Chocolate Maker Name Role Phone Chuck Davila MD Primary [...] age to complete this topic Care Teams Chocolate Maker Relationship Specialty Start Date End Date Chuck Davila MD [address] [place] [address] Dr [address] ANJU Huerta PCP - General 04/07/23
--- OUTSIDE RECORDS SUMMARY | 2024-12-11 10:19 | XMS_ITS | Clinical Summary ---
Author Organization [facility] Address [address] [place] [address] Care Team Providers Care Hub Bander Name Role Phone Chuck Davila MD Primary Care Provider [phone]- [phone] Allergies Active Allergy Reactions Criticality Noted Date [...] age to complete this topic Care Teams Hub Bander Relationship Specialty Start Date End Date Chuck Davila MD [address] [place] [address] [place] [address] PCP - General Internal Medicine 04/07/23
--- OUTSIDE RECORDS SUMMARY | 2024-12-11 10:19 | XMS_ITS | Clinical Summary ---
Author Organization [employer] Address [address] [place] [address] 7[address] [place] [address] Care Team Providers Care Hot Cell Technician Name Role Phone Unavailable Primary Care Provider [...]
== END ==
LOC: HO.CARD 09:46
PROVIDERS: PCP Internal Medicine; Visit Provider Internal Medicine
DX: R07.2 Precordial pain (principal); I20.9 Angina pectoris, unspecified; I42.9 Cardiomyopathy, unspecified; I44.7 Left bundle-branch block, unspecified
CPT/HCPCS: 78452; 93017; A9500; J0280; J2785

== ENCOUNTER → 2024-12-11 09:48 | Outpatient (BNV) | payer OTHER, SELFPAY | PROVIDERS: PCP Internal Medicine | DX: R94.31 Abnormal electrocardiogram [ECG] [EKG] (principal); I44.7 Left bundle-branch block, unspecified | CPT/HCPCS: 78452; 93016; 93018 ==

== ENCOUNTER 2024-12-24 07:32 | Outpatient (REF) | payer OTHER, SELFPAY ==
--- OUTSIDE RECORDS SUMMARY | 2024-12-24 07:37 | XMS_ITS | Clinical Summary ---
Author Organization [employer] Address [address] [place] [address] [address] [place] [address] Care Team Providers Care Drying Tumbler Operator Name Role Phone Unavailable Primary Care [...]
--- OUTSIDE RECORDS SUMMARY | 2024-12-24 07:37 | XMS_ITS | Clinical Summary ---
Author Organization [facility] Address [address] [place] [address] Care Team Providers Care Transit Police Officer Name Role Phone Chuck Davila MD Primary Care Provider [phone] Allergies Active Allergy Reactions Criticality Noted Date [...] age to complete this topic Care Teams Transit Police Officer Relationship Specialty Start Date End Date Chuck aDvila MD [address] [place] [address] [place] [address] PCP - General Internal Medicine 04/07/23
--- OUTSIDE RECORDS SUMMARY | 2024-12-24 07:37 | XMS_ITS | Encounter Summary ---
Author Organization [employer] Address [address] [place] [address] [address] [place] [address] Care Team Providers Care Water Attendant Name Role Phone Unavailable Primary Care Provider Unavailabl e Encounter Details Date Type Department Care Team (Latest Contact Info) Description 07/09/2018 Abstract [facility] CONVERSIONS Dental, Provider, DDS Social History [...]
--- OUTSIDE RECORDS SUMMARY | 2024-12-24 07:37 | XMS_ITS | Clinical Summary ---
Author Organization [facility] Address [address] [place] [address] Care Team Providers Care Remedial Reading Teacher Name Role Phone Chuck Davila MD Primary Care Provider Surgical History Surgery Date Site/Laterality Comments SECTION PROCEDURE: SECTION TUBAL LIGATION PROCEDURE:TUBAL LIGATION MASTECTOMY PROCEDURE:MASTECTOMY COLONOSCOPY PROCEDURE:COLONOSCOPY HYSTERECTOMY PROCEDURE:HYSTERECTOMY Medical History Medical History Date Comments Breast cancer (CMS/HCC V24, CMS/[facility] V28) DX:Breast cancer (HCC) Disease of [...] age to complete this topic Care Teams Remedial Reading Teacher Relationship Specialty Start Date End Date Chuck Davila MD [address] [place] [address] Dr [address] ANJU Huerta PCP - General 04/07/23
[2024-12-29 07:53] LABS: NTXCreaRU 58 mg/dL (20-275)
== END 2024-12-24 07:33 | disposition home or self-care (01) ==
LOC: HO.LNP 07:32
PROVIDERS: Visit Provider Internal Medicine Endocrinology, Diabetes & Metabolism
DX: M81.0 Age-related osteoporosis without current pathological fracture (principal)
CPT/HCPCS: 82523

== ENCOUNTER 2024-12-31 13:20 | Outpatient (AMB) | payer OTHER, SELFPAY ==
[2024-12-31 13:23] VITALS: BP 122/64; PULSE 79; BMI 21.2
--- NOTE | 2024-12-31 13:23 | A.OFFVIS_ITS ---
Vital Signs 12/31/24 13:23 Height 5 ft 2 in Weight 115 lb 15.41 oz BMI 21.2 BP 122/64 Blood Pressure Location Lt brachial Position Sitting Pulse 79 Intake Visit Reasons: 6 wks Dysphagia , Eval Levsin Intake Note: Iris returns in follow up dysphagia and to evaluate Levsin. CC: Patient c/o chocking, vomiting, epigastric pain, and acid reflux. She states that she is able to have BMs as long as she takes the bisacodyl. Housekeeper Caregiver Required: Yes Housekeeper Caregiver Name: Daughter will interpret Accompanied by: Self / Same As Patient Allergies Sulfa (Sulfonamide Antibiotics) Allergy (Severe, Verified 11/25/24 15:58) Itching codeine (CODEINE) Allergy (Intermediate, Verified 11/25/24 15:58) ITCHING hydroxychloroquine (From PLAQUENIL) Allergy (Intermediate, Verified 11/25/24 15:58) VOMITING morphine (MORPHINE) Allergy (Intermediate, Verified 11/25/24 15:58) ITCHING Estrogens Allergy (Mild, Verified 11/25/24 15:58) Unknown levothyroxine sodium Allergy (Unknown, Verified 11/25/24 15:58) rash,throat closes prednisone Allergy (Unknown, Verified 11/25/24 15:58) Unknown Corticosteroids (Glucocorticoids) (CORTICOSTEROIDS (GLUCOCORTICOIDS)) Adverse Reaction (Severe, Verified 11/25/24 15:58) DIFFICULTY BREATHING escitalopram (From Lexapro) Adverse Reaction (Severe, Verified 11/25/24 15:58) seizure meloxicam Adverse Reaction (Severe, Verified 11/25/24 15:58) Gastrointestinal Upset tadalafil (From Cialis) Adverse Reaction (Intermediate, Verified 11/25/24 15:58) Nausea and Vomiting acetaminophen (Percocet) Adverse Reaction (Unknown, Verified 11/25/24 15:58) Unknown duloxetine Adverse Reaction (Unknown, Verified 11/25/24 15:58) Unknown fluconazole Adverse Reaction (Unknown, Verified 11/25/24 15:58) Itch, pain, HPI HPI 6 wks Dysphagia , Eval Levsin: Details: Assessment & Plan (1) Dysphagia: Comment: ORAL PHASE WITH CHOKING ON SOLID FOODS Code(s): R13.10 - Dysphagia, unspecified Category: Medical Qualifiers: Dysphagia type: oral phase Qualified Code(s): R13.11 - Dysphagia, oral phase (2) GERD (gastroesophageal reflux disease): Code(s): K21.9 - Gastro-esophageal reflux disease without esophagitis Category: Medical Qualifiers: Esophagitis presence: without esophagitis Qualified Code(s): K21.9 - Gastro-esophageal reflux disease without esophagitis (3) Constipation: Code(s): K59.00 - Constipation, unspecified Category: Medical (4) Tubular adenoma of colon: Comment: 03/2024 scope= negative study repeat in 5 years, fair prep; 2019 severe TICS, no polyps Code(s): D12.6 - Benign neoplasm of colon, unspecified Category: Medical Plan TUVALUAN #Niki Live She feels that the dilation helped a little bit she has found that she needs to cut her food small and eat slowly and relax or she will choke. She still will choke about 5 times a month. I think that esophageal spasm may be a large factor, especially since she admits that it happens more if she is not relaxed. We will give a trial of hyoscam ine. She also continues on her Dexilant, bisacodyl, simethicone and Zofran. The bisaocydl is helping her well to move her bowels. ROV 6 weeks. Medications: New hyoscyamine sulfate (Levsin/SL) 0.125 mg PO .tidac 90 tabs 6RF dyspepsia R13.11 - Dysphagia, oral phase dexlansoprazole (Dexilant) 60 mg PO DAILY 30 caps 6RF K21.9 - Gastro-esophageal reflux disease without esophagitis bisacodyl 10 mg (2 x 5 mg) PO BEDTIME 60 tabs 6RF simethicone (Gas Relief (simethicone)) 125 mg PO BID-QID PRN 90 tabs 6RF abdominal distention Today's visit Lao #dtr translates per pt request [facility] Medical History SOB (shortness of breath) Bipolar depression Headache Cerumen impaction Otitis media Arthralgia Nausea Recurrent cystitis Screening for tuberculosis History of breast cancer in female Pharyngitis Oral pharyngeal candidiasis Bipolar 1 disorder Chronic idiopathic constipation Depression Chronic pruritus Urticaria Vitamin D deficiency Polyarthralgia Small bowel motility disorder Dry mouth and eyes Seborrhea capitis in adult Bilateral sciatica Urinary frequency Abdominal pannus Positive sm/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 antibody Family history of polyps in the colon Fracture of neck of left humerus Humeral head fracture Chronic gastritis Insomnia Hypothyroidism Seropositive rheumatoid arthritis Leukopenia Gingivitis History of breast cancer Estrogen receptor positive status [ER+] Ductal carcinoma in situ (DCIS) of left breast Autoimmune disorder PTSD (post-traumatic stress disorder) COVID-19 Bilateral knee pain Fibromyalgia Schatzki's ring Rheumatoid arthritis Small bowel motility disorder Osteoporosis Raynaud's disease without gangrene Anxiety Primary insomnia Constipation Acquired hypothyroidism Systemic lupus erythematosus Left temporomandibular joint disorder, unspecified Surgical History Hx of abdominoplasty History of esophagogastroduodenoscopy (EGD) Hx of colonoscopy History of bilateral mastectomy History of total abdominal hysterectomy and bilateral salpingo-oophorectomy History of cholecystectomy History of tubal ligation History of section Family History Father Prostate cancer Hypertension Mother Breast cancer Hypertension Asthma Maternal Aunt Breast cancer Maternal Grandmother Colon cancer Maternal Aunt Breast cancer Sister Bone cancer Social History Household Members: Children Household Members Other:: 2 daughters and 3 dogs Housing: House Do you presently have visiting nurse or other home services: No Alcohol intake: never Comment: 5 min safety checks Patient Tobacco Use Status: Never used Tobacco Tobacco use type: Cigarette e-Cigarette/Vaping Use: Never Used Second Hand Smoke Exposure: No Advance Directives Date on File: 08/12/20 service: No Current occupational status: disabled Current occupational exposures/hazards: No Sexual orientation: Straight/Heterosexual Gender identity: Female Cognitive needs: Yes (cane) Hearing needs: No Vision needs: Yes (Glasses) Female Reproductive History Menstrual Age of Menarche: 10 Review of Systems Const Denies fatigue, Denies fever(s), Denies night sweats, Denies poor appetite and Denies weight loss Eyes Details: glasses Reports requires corrective lenses ENT Reports Normal hearing present, Denies dental pain, Reports dysphagia, Reports dizziness, Denies hearing loss, Denies mouth pain, Denies odynophagia, Denies throat swelling, Denies tongue swelling and Reports other (Dentition adequate) Card Reports no additional complaints Resp Reports no additional complaints GI Details: Denies abdominal pain, Denies melena, Denies bloating, Denies hematochezia, Denies constipation, Denies GI cramping, Reports dysphagia, Denies excessive flatus, Denies early satiety, Reports heartburn, Denies diarrhea, Denies nausea, Denies odynophagia, Denies vomiting and Denies hematemesis Skin/Breast Denies pruritus, Denies lesions, Denies rash and Denies jaundice Neuro Reports Normal hearing present, Denies Abnormal speech present and Reports dizziness Endo Denies fatigue Aller/Immun Denies throat swelling and Denies tongue swelling Physical Exam Vital Signs: Last Vital Signs Pulse 79 12/31/24 13:23 BP 122/64 12/31/24 13:23 BMI result Body Mass Index 21.2 Const General: cooperative, no acute distress, well developed and well groomed Nutritional Appearance: average body habitus and well nourished Orientation/consciousness: oriented to person, oriented to place and oriented to time Limitations: language barrier HEENT Head: Yes normocephalic and Yes atraumatic Eyes General: appearance normal, both eyes and all related structures Pupils: Equal, round and reactive pupils present Neck Neck: Yes normal visual inspection and Yes no lymphadenopathy Thyroid: Thyroid normal Resp Effort & Inspection: normal respiratory effort and able to speak in complete sentences Auscultation: clear to auscultation bilaterally Cardio Rate: regular rate Rhythm: regular rhythm Heart sounds: Normal, physiologic split S2 sound present Peripheral pulses: radial pulses present and posterior tibial pulses present GI Inspection: No distended and No Abdominal panniculus present Palpation (GI): Soft to palpation, nontender, no guarding, not rigid and No hepatosplenomegaly present Percussion: Yes normal to percussion Auscultation: normal bowel sounds Rectal Exam - Female: deferred Skin General skin exam: no rashes or lesions noted, turgor normal, skin not dry, no jaundice, No spider nevi and no striae Rashes: no rashes Nails: normal Neuro General: oriented to person, oriented to place and oriented to time Cranial nerves: Yes Equal, round and reactive pupils present and Yes Normal hearing present Speech: No Abnormal speech present Extrem General: Yes normal to inspection, No clubbing, No cyanosis and No edema Psych Appearance: grossly normal and well kempt Mental Status: mental status grossly normal Speech and movement: Normal speech and movement present Affect: normal affect Attitude: cooperative Thought process: Normal thought process present and not confabulating Thought content: Normal thought content present Insight: Limited insight present (Psych) Judgement: Limited judgement present (Psych) Assessment & Plan Assessment & Plan (1) Vertigo: Code(s): R42 - Dizziness and giddiness Category: Medical (2) Dysphagia: Comment: ORAL PHASE WITH CHOKING ON SOLID FOODS, but no finding on mod barium swallow with speech therapy, no help with bentyl or hyoscamine. Did not try CCB r/t vertigo. Code(s): R13.10 - Dysphagia, unspecified Category: Medical Qualifiers: Dysphagia type: oral phase Qualified Code(s): R13.11 - Dysphagia, oral phase Plan Lao #dtr translates per pt request She also continues on her Dexilant, bisacodyl, simethicone and Zofran. The bisacodyl is helping her well to move her bowels. - The patient is a 59-year-old female presenting with persistent dysphagia and vertigo. - Troubles swallowing, diagnosed as esophageal spasm, with no improvement from Hyoscyamine treatment and minimal relief from dilation. - Concerns about the potential dizziness inducing effect of calcium channel blockers, given the patient's existing vertigo symptoms. - Vertigo symptoms include continuous dizziness, occasionally profound enough to feel like inversion or falling, particularly problematic with stairs. - Anterior cervical web found at C5 upon a previous modified barium swallow. speech therapy evaluation did not show any signs of neuromuscular coordination problems therapy was not effective, and symptoms persisted. - The patient has not yet tried physical therapy for vertigo but has tried Meclizine without success. At this point we will stop the hyoscyamine and she has also failed Bentyl for her swallowing. We will schedule a repeat endoscopy to see if serial dilations help. I would be reluctant to try calcium channel mckenna until she gets to physical therapy and can get some resolution to her vertigo. Return office visit in 6 months Orders: Orders EGD - GI Use Only Today R13.11 - Dysphagia, oral phase Referrals Physical Medicine and Rehabilitation Referral R42 - Dizziness and giddiness Medications: Discontinued hyoscyamine sulfate (Levsin/SL) Discontinued Reason: Doctor's Order 0.125 mg PO .tidac 90 tabs 6RF dyspepsia R13.11 - Dysphagia, oral phase Coding Level of Care Code Est Pt Level 4 (95561) Diagnoses Vertigo R42 Oral phase dysphagia R13.11 Dysphagia type: oral phase
--- OUTSIDE RECORDS SUMMARY | 2024-12-31 14:37 | XMS_ITS | Encounter Summary ---
Author Organization [employer] Address [address] [place] [address] 7t [place] [address] Care Team Providers Care Public Health Aide Name Role Phone Unavailable Primary Care Provider Unavailabl e Encounter Details Date Type Department Care Team (Latest Contact Info) Description 07/09/2018 Abstract [facility] CONVERSIONS Dental, Provider, DDS Social History Tobacco [...]
--- OUTSIDE RECORDS SUMMARY | 2024-12-31 14:37 | XMS_ITS | Clinical Summary ---
Author Organization [facility] Address [address] [place] [address] Care Team Providers Care Stem Setter Name Role Phone Chuck Davila MD Primary Care Provider Surgical History Surgery Date Site/Laterality Comments SECTION PROCEDURE: SECTION TUBAL LIGATION PROCEDURE:TUBAL LIGATION MASTECTOMY PROCEDURE:MASTECTOMY COLONOSCOPY PROCEDURE:COLONOSCOPY HYSTERECTOMY PROCEDURE:HYSTERECTOMY Medical History Medical History Date Comments Breast cancer (CMS/HCC V24, CMS/[facility] V28) DX:Breast cancer (HCC) Disease [...] age to complete this topic Care Teams Stem Setter Relationship Specialty Start Date End Date Chuck Davila MD [address] [place] [address] Dr [address] ANJU Huerta PCP - General 04/07/23
--- OUTSIDE RECORDS SUMMARY | 2024-12-31 14:37 | XMS_ITS | Clinical Summary ---
Author Organization [facility] Address [address] [place] [address] Care Team Providers Care Mine Car Dispatcher Name Role Phone Chuck Davila MD Primary Care Provider +1- [phone] Allergies Active Allergy Reactions Criticality Noted Date [...] age to complete this topic Care Teams Mine Car Dispatcher Relationship Specialty Start Date End Date Chuck Davila MD [address] [place] [address] [place] [address] PCP - General Internal Medicine 04/07/23
--- OUTSIDE RECORDS SUMMARY | 2024-12-31 14:37 | XMS_ITS | Clinical Summary ---
Author Organization [employer] Address [address] [place] [address] 7t [place] [address] Care Team Providers Care Information Security Manager Name Role Phone Unavailable Primary Care [...]
== END 2024-12-31 14:08 | disposition home or self-care (01) ==
LOC: HO.HGI 13:21
PROVIDERS: PCP Internal Medicine; Visit Provider Nurse Practitioner
DX: R42 Dizziness and giddiness (principal); R13.11 Dysphagia, oral phase
CPT/HCPCS: 99214

== ENCOUNTER → 2024-12-31 13:20 | Outpatient (BNVA) | payer OTHER, SELFPAY | PROVIDERS: PCP Internal Medicine; Visit Provider Nurse Practitioner | DX: R13.11 Dysphagia, oral phase (principal); K21.9 Gastro-esophageal reflux disease without esophagitis; K59.00 Constipation, unspecified; D12.6 Benign neoplasm of colon, unspecified | CPT/HCPCS: 99212 ==

== ENCOUNTER 2025-01-01 15:00 | Outpatient (AMB) | payer OTHER, SELFPAY ==
[2025-01-01 15:02] VITALS: BP 110/64; PULSE 69; BMI 21.0
--- NOTE | 2025-01-01 15:02 | MHC.OFFVIS ---
Vital Signs 01/01/25 15:02 Height 5 ft 2 in Weight 115 lb 1.301 oz BMI 21.0 BP 110/64 Blood Pressure Location Lt brachial Position Sitting Pulse 69 Pulse Source Monitor Intake Visit Reasons: follow up stress test Crackling Press Operator Services: Crackling Press Operator Offered & Declined Accompanied by: Daughter Allergies Sulfa (Sulfonamide Antibiotics) Allergy (Severe, Verified 01/01/25 15:07) Itching codeine (CODEINE) Allergy (Intermediate, Verified 01/01/25 15:07) ITCHING hydroxychloroquine (From PLAQUENIL) Allergy (Intermediate, Verified 01/01/25 15:07) VOMITING morphine (MORPHINE) Allergy (Intermediate, Verified 01/01/25 15:07) ITCHING Estrogens Allergy (Mild, Verified 01/01/25 15:07) Unknown levothyroxine sodium Allergy (Unknown, Verified 01/01/25 15:07) rash,throat closes prednisone Allergy (Unknown, Verified 01/01/25 15:07) Unknown Corticosteroids (Glucocorticoids) (CORTICOSTEROIDS (GLUCOCORTICOIDS)) Adverse Reaction (Severe, Verified 01/01/25 15:07) DIFFICULTY BREATHING escitalopram (From Lexapro) Adverse Reaction (Severe, Verified 01/01/25 15:07) seizure meloxicam Adverse Reaction (Severe, Verified 01/01/25 15:07) Gastrointestinal Upset tadalafil (From Cialis) Adverse Reaction (Intermediate, Verified 01/01/25 15:07) Nausea and Vomiting acetaminophen (Percocet) Adverse Reaction (Unknown, Verified 01/01/25 15:07) Unknown duloxetine Adverse Reaction (Unknown, Verified 01/01/25 15:07) Unknown fluconazole Adverse Reaction (Unknown, Verified 01/01/25 15:07) Itch, pain, Medication List - Last Reconciled 01/01/25 by Sadiq Purvis NP albuterol sulfate 90 mcg/actuation (Ventolin HFA) 2 puffs inhalation Q6H PRN bisacodyl 10 mg (2 x 5 mg) PO BEDTIME bupropion HCl XL 150 mg PO QAM clonazepam 1 mg PO TID PRN dexlansoprazole (Dexilant) 60 mg PO DAILY diclofenac sodium 75 mg PO BID diclofenac sodium 1% 2 grams topical ONCE PRN ferrous sulfate 324 mg PO DAILY gabapentin 300 mg PO TID lamotrigine 50 mg (2 x 25 mg) PO BEDTIME lidocaine 5% 1 patch topical DAILY 30 days nystatin 1 mL PO DAILY onabotulinumtoxinA (Botox) 200 units IM [id number] ondansetron HCl 8 mg PO BEDTIME PRN oxybutynin chloride ER 10 mg PO DAILY simethicone (Gas Relief (simethicone)) 125 mg PO BID-QID PRN sumatriptan succinate 50 mg PO DAILY PRN Synthroid (levothyroxine) 50 mcg PO DAILY 90 days NS trazodone 100 mg PO BEDTIME HPI Comments Details: This is a 59-year-old female patient coming in for a follow-up visit, accompanied by her daughter who helped with interpretation throughout the visit.. Patient was previously seen in the office for dizziness and shortness of breath for which patient underwent a Holter study and an echocardiogram that was abnormal and therefore underwent a myocardial perfusion study. Today, patient is here to review the results of these and is reporting ongoing dizziness and shortness of breath. Patient reports that these symptoms could be random in nature and is sometimes accompanied with chest discomfort. Patient is otherwise denying any palpitations, orthopnea, PND, leg edema, presyncope, or syncope. Patient is reporting compliance with all her medications. 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 antibody Family history of polyps in the colon Fracture of neck of left humerus Humeral head fracture Chronic gastritis Insomnia Hypothyroidism Seropositive rheumatoid arthritis Leukopenia Gingivitis History of breast cancer Estrogen receptor positive status [ER+] Ductal carcinoma in situ (DCIS) of left breast Autoimmune disorder PTSD (post-traumatic stress disorder) COVID-19 Bilateral knee pain Fibromyalgia Schatzki's ring Rheumatoid arthritis Small bowel motility disorder Osteoporosis Raynaud's disease without gangrene Anxiety Primary insomnia Constipation Acquired hypothyroidism Systemic lupus erythematosus Left temporomandibular joint disorder, unspecified Surgical History Hx of abdominoplasty History of esophagogastroduodenoscopy (EGD) Hx of colonoscopy History of bilateral mastectomy History of total abdominal hysterectomy and bilateral salpingo-oophorectomy History of cholecystectomy History of tubal ligation History of section Family History Father Prostate cancer Hypertension Mother Breast cancer Hypertension Asthma Maternal Aunt Breast cancer Maternal Grandmother Colon cancer Maternal Aunt Breast cancer Sister Bone cancer Social History Household Members: Children Household Members Other:: 2 daughters and 3 dogs Housing: House Do you presently have visiting nurse or other home services: No Alcohol intake: never Comment: 5 min safety checks Patient Tobacco Use Status: Never used Tobacco Tobacco use type: Cigarette e-Cigarette/Vaping Use: Never Used Second Hand Smoke Exposure: No Advance Directives Date on File: 08/12/20 service: No Current occupational status: disabled Current occupational exposures/hazards: No Sexual orientation: Straight/Heterosexual Gender identity: Female Cognitive needs: Yes (cane) Hearing needs: No Vision needs: Yes (Glasses) Female Reproductive History Menstrual Age of Menarche: 10 Review of Systems Const Denies daytime sleepiness, Denies difficulty sleeping, Denies snoring, Denies stops breathing during sleep and Denies weakness Card Reports chest pain, Denies rapid heart rate, Denies irregular heart rhythm, Denies claudication, Denies leg edema, Denies lightheadedness, Denies palpitations, Reports dyspnea, Denies dyspnea on exertion, Denies orthopnea, Denies paroxysmal nocturnal dyspnea and Denies slow heart rate Resp Denies cough, Reports dyspnea, Denies dyspnea on exertion and Denies snoring GI Reports no additional complaints, Denies hematochezia, Denies change in stool character and Denies dyspepsia Musc Denies abnormal gait, Denies muscle weakness and Denies numbness Neuro Denies abnormal gait, Denies numbness and Denies weakness Endo Denies palpitations Physical Exam Vital Signs: Last Vital Signs Pulse 69 01/01/25 15:02 BP 110/64 01/01/25 15:02 BMI result Body Mass Index 21.0 Const General: cooperative, healthy appearing, comfortable and no acute distress Orientation/consciousness: patient oriented x3 HEENT Head: Yes normal to inspection Neck Neck: Yes normal visual inspection, Yes trachea midline and Yes supple Chest Chest palpation & inspection: normal inspection of the chest Resp Effort & Inspection: normal respiratory effort Auscultation: clear to auscultation bilaterally, no crackles, no rales, no rhonchi and no wheezes Cardio Jugular venous distension: no JVD Palpation: normal PMI Rate: regular rate Rhythm: regular rhythm Heart sounds: S1 normal heart sound present, S2 normal heart sound present, no click, no gallops, no murmurs and no rubs Peripheral pulses: Peripheral pulses 2+ throughout GI Inspection: Yes normal to inspection Palpation (GI): Soft to palpation Auscultation: normal bowel sounds Skin General skin exam: no rashes or lesions noted Neuro General: patient oriented x3 Extrem General: Yes normal to inspection, No no pedal edema and No calf tenderness Psych Appearance: grossly normal Mental Status: mental status grossly normal Speech and movement: Normal speech and movement present Office Procedures EKG Details: EKG today showed normal sinus rhythm, rate 69 beats per minute, [place], [place] [id number]-[id number], Complete Assessment & Plan Assessment & Plan (1) Cardiomyopathy: Code(s): I42.9 - Cardiomyopathy, unspecified Category: Medical Plan: 10/14/2024- Holter study showed a baseline normal sinus rhythm with rare PACs. 10/14/2024-echo study showed a mildly reduced LV systolic function with the ejection fraction at 44% with hypokinetic inferoseptal wall, basal inferior, and basal inferolateral segments, and a small loculated pericardial effusion over left ventricle. 12/11/2024-patient underwent a myocardial perfusion study with vasodilating agent that showed no clear evidence of ischemia. Given above for motion abnormality on echo and her ongoing symptoms, we will proceed with a coronary CTA to look for a coronary artery disease and the extent of ischemic changes. Patient's EKG back in June showed a history of left bundle branch block which is no longer present on any other EKGs. Blood pressure is within normal limits. Advised to seek ER care case of exertional chest pain not resolved with rest. Advised management of vascular risk factors. (2) Chest pain: Code(s): R07.9 - Chest pain, unspecified Category: Medical Plan: As above. (3) Exertional dyspnea: Code(s): R06.09 - Other forms of dyspnea Category: Medical Plan: As above. (4) Dizziness: Code(s): R42 - Dizziness and giddiness Category: Medical Plan: As above. (5) LBBB (left bundle branch block): Code(s): I44.7 - Left bundle-branch block, unspecified Category: Medical Plan: As above. Advised heart healthy diet, stress medication strategies, and management of vascular risk factors. Further treatment based on findings. Patient will follow up after completion of coronary CTA. In the interim, patient will call the office with any concerns or change in symptoms. This note was generated using voice recognition software. While every effort has been made to ensure accuracy and proper foot drill operator, there may be occasional errors that could affect the content or meaning of the described symptoms. Orders: Orders CT Cardiac Coronary Angio Today I42.9 - Cardiomyopathy, unspecified, R07.9 - Chest pain, unspecified Basic Metabolic Panel Today R07.9 - Chest pain, unspecified AMB EKG-In Office Today R07.9 - Chest pain, unspecified Coding Level of Care Code Est Pt Level 4 (72983) Complex EM visit Add On G2211 Diagnoses Cardiomyopathy I42.9 Chest pain R07.9 Exertional dyspnea R06.09 Dizziness R42 LBBB (left bundle branch block) I44.7 CPT Codes EKG - CPT: 23974-[id number], Complete ([id number]) Time Spent (min) 32 Comment Time spent in reviewing the chart, test results, assessment, counseling and documentation.
--- OUTSIDE RECORDS SUMMARY | 2025-01-01 17:10 | XMS_ITS | Clinical Summary ---
Author Organization [facility] Address [address] [place] [address] Care Team Providers Care Sewing Trimmer Name Role Phone Chuck Davila MD Primary Care Provider [phone] Surgical History Surgery Date Site/Laterality Comments SECTION PROCEDURE: SECTION TUBAL LIGATION PROCEDURE:TUBAL LIGATION MASTECTOMY PROCEDURE:MASTECTOMY COLONOSCOPY PROCEDURE:COLONOSCOPY HYSTERECTOMY PROCEDURE:HYSTERECTOMY Medical History Medical History Date Comments Breast cancer (CMS/HCC V24, CMS/[facility] V28) DX:Breast cancer (HCC) Disease [...] age to complete this topic Care Teams Sewing Trimmer Relationship Specialty Start Date End Date Chuck Davila MD [address] [place] [address] Dr [address] ANJU Huerta PCP - General 04/07/23
--- OUTSIDE RECORDS SUMMARY | 2025-01-01 17:10 | XMS_ITS | Clinical Summary ---
Author Organization [facility] Address [address] [place] [address] Care Team Providers Care Braider Operator Name Role Phone Chuck Davila MD Primary Care Provider [phone] Allergies Active Allergy Reactions Criticality Noted Date [...] age to complete this topic Care Teams Braider Operator Relationship Specialty Start Date End Date Chuck Davila MD [address] [place] [address] [place] [id number] PCP - General Internal Medicine 04/07/23
== END 2025-01-01 15:43 | disposition home or self-care (01) ==
LOC: HO.HCS 15:01
PROVIDERS: PCP Internal Medicine
DX: I42.9 Cardiomyopathy, unspecified (principal); R07.9 Chest pain, unspecified; R06.09 Other forms of dyspnea; R42 Dizziness and giddiness; I44.7 Left bundle-branch block, unspecified
CPT/HCPCS: 93010; 99214

== ENCOUNTER → 2025-01-01 15:00 | Outpatient (BNVA) | payer OTHER, SELFPAY | PROVIDERS: PCP Internal Medicine | DX: Z71.2 Person consulting for explanation of examination or test findings (principal); I42.9 Cardiomyopathy, unspecified; R07.9 Chest pain, unspecified; R06.09 Other forms of dyspnea; R42 Dizziness and giddiness; I44.7 Left bundle-branch block, unspecified | CPT/HCPCS: 93005; 99212 ==

== ENCOUNTER 2025-01-06 15:01 | Outpatient (AMB) | payer OTHER, SELFPAY ==
[2025-01-06 15:08] VITALS: BP 112/74; PULSE 83; O2SAT 98; BMI 21.9
--- NOTE | 2025-01-06 15:08 | MHC.OFFVIS ---
Vital Signs 01/06/25 15:08 Height 5 ft 1.22 in Weight 116 lb 13.52 oz BMI 21.9 BP 112/74 Blood Pressure Location Lt brachial Position Sitting Pulse 83 Pulse Source Pulse Oximeter Pulse Oximetry (%) 98 Oxygen Delivery Method Room Air Intake Visit Reasons: f/u low bone mass Intake Note: Patient present today for Osteoporosis follow up. Chief Operating Officer Required: Yes Chief Operating Officer Language: Telegraph Repeater Technician Services: Chief Operating Officer Offered & Declined Chief Operating Officer Name: Daughter Accompanied by: Daughter Allergies Sulfa (Sulfonamide Antibiotics) Allergy (Severe, Verified 01/06/25 15:10) Itching codeine (CODEINE) Allergy (Intermediate, Verified 01/06/25 15:10) ITCHING hydroxychloroquine (From PLAQUENIL) Allergy (Intermediate, Verified 01/06/25 15:10) VOMITING morphine (MORPHINE) Allergy (Intermediate, Verified 01/06/25 15:10) ITCHING Estrogens Allergy (Mild, Verified 01/06/25 15:10) Unknown levothyroxine sodium Allergy (Unknown, Verified 01/06/25 15:10) rash,throat closes prednisone Allergy (Unknown, Verified 01/06/25 15:10) Unknown Corticosteroids (Glucocorticoids) (CORTICOSTEROIDS (GLUCOCORTICOIDS)) Adverse Reaction (Severe, Verified 01/06/25 15:10) DIFFICULTY BREATHING escitalopram (From Lexapro) Adverse Reaction (Severe, Verified 01/06/25 15:10) seizure meloxicam Adverse Reaction (Severe, Verified 01/06/25 15:10) Gastrointestinal Upset tadalafil (From Cialis) Adverse Reaction (Intermediate, Verified 01/06/25 15:10) Nausea and Vomiting acetaminophen (Percocet) Adverse Reaction (Unknown, Verified 01/06/25 15:10) Unknown duloxetine Adverse Reaction (Unknown, Verified 01/06/25 15:10) Unknown fluconazole Adverse Reaction (Unknown, Verified 01/06/25 15:10) Itch, pain, Medication List - Last Reconciled 01/06/25 by Som Brandon MD albuterol sulfate 90 mcg/actuation (Ventolin HFA) 2 puffs inhalation Q6H PRN bisacodyl 10 mg (2 x 5 mg) PO BEDTIME bupropion HCl XL 150 mg PO QAM clonazepam 1 mg PO TID PRN dexlansoprazole (Dexilant) 60 mg PO DAILY diclofenac sodium 75 mg PO BID diclofenac sodium 1% 2 grams topical ONCE PRN ferrous sulfate 324 mg PO DAILY gabapentin 300 mg PO TID lamotrigine 50 mg (2 x 25 mg) PO BEDTIME lidocaine 5% 1 patch topical DAILY 30 days nystatin 1 mL PO DAILY onabotulinumtoxinA (Botox) 200 units IM [id number] ondansetron HCl 8 mg PO BEDTIME PRN oxybutynin chloride ER 10 mg PO DAILY simethicone (Gas Relief (simethicone)) 125 mg PO BID-QID PRN sumatriptan succinate 50 mg PO DAILY PRN Synthroid (levothyroxine) 50 mcg PO DAILY 90 days NS trazodone 100 mg PO BEDTIME HPI Comments Details: 59-year-old female, today for follow-up visit, for evaluation of hypothyroidism and osteoporosis . Recetly fell forward and fx humerus in 03/2021 Has a subsequent fx of L shoulder . Shoulder fx happened after waking up felt a pop. . DEXA showed nl bone density She was diagnosed with breast cancer in 2010 she spent 7 years on aromatase inhibitors. No radiotherapy given. She took alendronate 70 mg weekly for 3 years. Medication was stopped the medication last year. She has lupus and rheumatoid arthritis she has never been on prednisone long-term she has adverse reactions to steroids. She has past medical history of breast cancer, SLE, rheumatoid arthritis, hypothyroidism, vitamin-D deficiency and depression, fibromyalgia. She denies prior fragilityb fractures, positive GERD on chronic PPI use, she has positive FH of osteoporosis in her mother, nephrolithiasis, never smoker, never on anti seizures medications. Bisphosphonates use: Alendronate 70 mg weekly since 2015. Stopped in May 2019. Calcium intake: 500 mg bid. Vitamin D: 100,000 international units weekly. Herbal medications. None. A complete secondary workup including workup for mastocytosis, Ely's, hypercalciuria, multiple myeloma was completely normal She reports she was diagnosed with hypothyroidism a 20 years ago. She has negative antibodies. She is currently on Synthroid 50 mcg daily. She reports she has been on the same dose for 20 years. She is 100% compliance with LT4, she takes Prilosec 1 hour after Synthroid. She has cold intolerance, she denies heat intolerance, she denies weigth loss or gain, is postmenopausal , denies diarrhea, positive constipation, positive imsomnia but results with treatment, positive fatigue, denies dry skin, denies dyspnea, dysphonia, tremors, palpitations, irritability, anxiety. She has a swallowing problem, she reports she has choking sensation with swallowing solid. She had normal EGD. The barium swallowing study was not completed due to choking with barium. Family History: Her sister has thyroid nodules. 03/13/19 US thyroid Right Thyroid Lobe: 4.4 x 1.3 x 1.3 cm, volume 3.4 mL. Parenchyma: The gland echotexture is homogeneous. Thyroid vascularity is increased. Left Thyroid Lobe: 3.7 x 1.0 x 1.3 cm, volume 2.5 mL. Parenchyma: The gland echotexture is homogeneous. Thyroid vascularity is increased. Isthmus: 0.3 cm in maximum AP dimension. RIGHT THYROID LOBE: There are 2 nodules seen. 1. Location: Mid/lower pole. Size: 0.1 x 0.1 x 0.2 cm. Nodule characteristics: Well-circumscribed hypoechoic cyst with a punctate echogenic focus. No calcification or intranodular flow. This has the appearance of a colloid cyst. 2. Location: Lower pole. Size: 0.2 x 0.1 x 0.2 cm. Nodule characteristics: Well-circumscribed anechoic simple cyst with no microcalcification or intranodular flow. ISTHMUS: No nodules. LEFT THYROID LOBE: No nodules. NODES: No lymphadenopathy is seen in the tissue surrounding the thyroid gland. Trended TSH from 1078-9017 range 0.39 to 2.44 mIU/mL. 05/02/2019 DEXA scan FINDINGS: AP SPINE L1-L4: BMD 1.118 g/cm2, Z-score 0.7, T-score -0.5, normal. LEFT FEMUR, NECK: BMD 0.958 g/cm2, Z-score 0.7, T-score -0.6, normal. LEFT FEMUR, TOTAL: BMD 1.017 g/cm2, Z-score 1.0, T-score 0.1, normal. Laboratory Tests 11/25/19 06/01/20 11:03 12:58 Sodium 143 Potassium 4.7 Creatinine 0.66 Estimated GFR > 60 Calcium 8.7 D Alkaline Phosphatase 40 Albumin 4.2 N-Telopeptide X-linked 18 25-OH Vitamin D Total 82.9 TSH 0.39 Free T4 1.22 currently on calcium and vitamin-D supplementation. No fractures since last visit. Repeat DEXA showed stable bone density with the presence of low bone mass. Recent urine NTX was suppressed [facility] Medical History SOB (shortness of breath) Bipolar depression Headache Cerumen impaction Otitis media Arthralgia Nausea Recurrent cystitis Screening for tuberculosis History of breast cancer in female Pharyngitis Oral pharyngeal candidiasis Bipolar 1 disorder Chronic idiopathic constipation Depression Chronic pruritus Urticaria Vitamin D deficiency Polyarthralgia Small bowel motility disorder Dry mouth and eyes Seborrhea capitis in adult Bilateral sciatica Urinary frequency Abdominal pannus Positive sm/UTILITY TECH antibody Family history of polyps in the colon Fracture of neck of left humerus Humeral head fracture Chronic gastritis Insomnia Hypothyroidism Seropositive rheumatoid arthritis Leukopenia Gingivitis History of breast cancer Estrogen receptor positive status [ER+] Ductal carcinoma in situ (DCIS) of left breast Autoimmune disorder PTSD (post-traumatic stress disorder) COVID-19 Bilateral knee pain Fibromyalgia Schatzki's ring Rheumatoid arthritis Small bowel motility disorder Osteoporosis Raynaud's disease without gangrene Anxiety Primary insomnia Constipation Acquired hypothyroidism Systemic lupus erythematosus Left temporomandibular joint disorder, unspecified Surgical History Hx of abdominoplasty History of esophagogastroduodenoscopy (EGD) Hx of colonoscopy History of bilateral mastectomy History of total abdominal hysterectomy and bilateral salpingo-oophorectomy History of cholecystectomy History of tubal ligation History of section Family History Father Prostate cancer Hypertension Mother Breast cancer Hypertension Asthma Maternal Aunt Breast cancer Maternal Grandmother Colon cancer Maternal Aunt Breast cancer Sister Bone cancer Social History Household Members: Children Household Members Other:: 2 daughters and 3 dogs Housing: House Do you presently have visiting nurse or other home services: No Alcohol intake: never Comment: 5 min safety checks Patient Tobacco Use Status: Never used Tobacco Tobacco use type: Cigarette e-Cigarette/Vaping Use: Never Used Second Hand Smoke Exposure: No Advance Directives Date on File: 08/12/20 service: No Current occupational status: disabled Current occupational exposures/hazards: No Sexual orientation: Straight/Heterosexual Gender identity: Female Cognitive needs: Yes (cane) Hearing needs: No Vision needs: Yes (Glasses) Female Reproductive History Menstrual Age of Menarche: 10 Physical Exam Vital Signs: BMI result Body Mass Index 21.9 Assessment & Plan Assessment & Plan (1) Osteoporosis: Code(s): M81.0 - Age-related osteoporosis without current pathological fracture Category: Medical Qualifiers: Osteoporosis type: unspecified Presence of current pathological fracture: without current pathological fracture Qualified Code(s): M81.0 - Age-related osteoporosis without current pathological fracture Plan: Multiple risk factors for osteoporosis with normal DEXA and completed a course of multiple years of bisphosphonate with suppressed NTX. She recently sustained a fragility fracture of the shoulder. Concurrently taking calcium and vitamin-D supplementation. F/U DeXA showed low bone mass with stable bone density . Ely syndrome, multiple myeloma and systemic mastocytosis and hypophosphatemia have been ruled out Plan is to continue calcium and vitamin-D supplementation. We will send back to primary care provider at this point who can we check a DEXA bone density in about 2 years time. If bone density declines into the osteoporotic range, or patient experiences a subsequent fracture, patient returned back to endocrinology for rediscussion of treatment options Coding Level of Care Code Est Pt Level 3 (84790) Diagnoses Osteoporosis without current pathological fracture, unspecified osteoporosis type M81.0 Osteoporosis type: unspecified Presence of current pathological fracture: without current pathological fracture
--- OUTSIDE RECORDS SUMMARY | 2025-01-06 18:17 | XMS_ITS | Clinical Summary ---
Author Organization [facility] Address [address] [place] [address] Care Team Providers Care Construction Ironworker Helper Name Role Phone Chuck Davila MD Primary Care Provider [phone] Surgical History Surgery Date Site/Laterality Comments SECTION [...] 03/29/2022 Social Influencers of Health Screening 03/29/2022 Depression Screening 05/01/2024 COVID-19 Vaccine (1 - 2023-2 5 season) 2024 Influenza Vaccine (#1) 2024 RSV Immunization Adult [...] age to complete this topic Care Teams Construction Ironworker Helper Relationship Specialty Start Date End Date Chuck Davila MD [address] [place] [address] [address] ANJU Huerta PCP - General 04/07/23
--- OUTSIDE RECORDS SUMMARY | 2025-01-06 18:17 | XMS_ITS | Clinical Summary ---
Author Organization [email or web address] Address [address] [place] [address] [address] [place] [address] Care Team Providers Care Maintenance Superintendent Name Role Phone Unavailable Primary Care Provider [...] COVID-19 Vaccine ( - 2023-2 5 season) 2024 Influenza Vaccine (#1) 2024 RSV Patients and [...]
--- OUTSIDE RECORDS SUMMARY | 2025-01-06 18:17 | XMS_ITS | Clinical Summary ---
Author Organization [facility] Address [address] [place] [address] Care Team Providers Care Brake Rider Name Role Phone Chuck Davila MD Primary Care Provider [phone] Allergies Active Allergy Reactions Criticality Noted Date [...] age to complete this topic Care Teams Brake Rider Relationship Specialty Start Date End Date Chuck Davila MD [address] [place] [address] [place] [address] PCP - General Internal Medicine 04/07/23
--- OUTSIDE RECORDS SUMMARY | 2025-01-06 18:17 | XMS_ITS | Encounter Summary ---
Author Organization [employer] Address [address] [place] [address] Care Team Providers Care Safety Assistant Name Role Phone Unavailable Primary Care Provider Unavailabl e Encounter Details Date Type Department Care Team (Latest Contact Info) Description 07/09/2018 Abstract [facility] CONVERSIONS Dental, Provider, DDS Social History [...]
== END 2025-01-06 15:25 | disposition home or self-care (01) ==
LOC: HO.ENCR 15:02
PROVIDERS: PCP Internal Medicine; Visit Provider Internal Medicine Endocrinology, Diabetes & Metabolism
DX: M81.0 Age-related osteoporosis without current pathological fracture (principal)
CPT/HCPCS: 99213

== ENCOUNTER → 2025-01-06 15:01 | Outpatient (BNVA) | payer OTHER, SELFPAY | PROVIDERS: PCP Internal Medicine; Visit Provider Internal Medicine Endocrinology, Diabetes & Metabolism | DX: M81.0 Age-related osteoporosis without current pathological fracture (principal) | CPT/HCPCS: 99212 ==

== ENCOUNTER 2025-01-09 14:02 | Outpatient (AMB) | payer OTHER, SELFPAY ==
--- NOTE | 2025-01-09 14:05 | A.OFFVIS_ITS ---
Vital Signs 01/09/25 14:11 Height 5 ft 1.22 in Weight 115 lb 8.356 oz BMI 21.7 BP 124/78 Blood Pressure Location Lt brachial Position Sitting Pulse 80 Pulse Source Pulse Oximeter Pulse Oximetry (%) 98 Oxygen Delivery Method Room Air Intake Visit Reasons: ANAID/SLE Intake Note: Patient presents for ANAID/SLE follow up. Photofinishing Laboratory Worker Required: Yes Photofinishing Laboratory Worker Language: Hydrometer Finisher Services: Photofinishing Laboratory Worker Present Photofinishing Laboratory Worker Name: Kristan Mesa Information Interpreted: non-clinical & clinical Allergies Sulfa (Sulfonamide Antibiotics) Allergy (Severe, Verified 01/09/25 14:09) Itching codeine (CODEINE) Allergy (Intermediate, Verified 01/09/25 14:09) ITCHING hydroxychloroquine (From PLAQUENIL) Allergy (Intermediate, Verified 01/09/25 14:09) VOMITING morphine (MORPHINE) Allergy (Intermediate, Verified 01/09/25 14:09) ITCHING Estrogens Allergy (Mild, Verified 01/09/25 14:09) Unknown levothyroxine sodium Allergy (Unknown, Verified 01/09/25 14:09) rash,throat closes prednisone Allergy (Unknown, Verified 01/09/25 14:09) Unknown Corticosteroids (Glucocorticoids) (CORTICOSTEROIDS (GLUCOCORTICOIDS)) Adverse Reaction (Severe, Verified 01/09/25 14:09) DIFFICULTY BREATHING escitalopram (From Lexapro) Adverse Reaction (Severe, Verified 01/09/25 14:09) seizure meloxicam Adverse Reaction (Severe, Verified 01/09/25 14:09) Gastrointestinal Upset tadalafil (From Cialis) Adverse Reaction (Intermediate, Verified 01/09/25 14:09) Nausea and Vomiting acetaminophen (Percocet) Adverse Reaction (Unknown, Verified 01/09/25 14:09) Unknown duloxetine Adverse Reaction (Unknown, Verified 01/09/25 14:09) Unknown fluconazole Adverse Reaction (Unknown, Verified 01/09/25 14:09) Itch, pain, Medication List - Last Reconciled 01/15/25 by Nguyen Sebastian MD albuterol sulfate 90 mcg/actuation (Ventolin HFA) 2 puffs inhalation Q6H PRN bisacodyl 10 mg (2 x 5 mg) PO BEDTIME bupropion HCl XL 150 mg PO QAM clonazepam 1 mg PO TID PRN dexlansoprazole (Dexilant) 60 mg PO DAILY diclofenac sodium 75 mg PO BID diclofenac sodium 1% 2 grams topical ONCE PRN ferrous sulfate 324 mg PO DAILY gabapentin 300 mg PO TID lamotrigine 50 mg (2 x 25 mg) PO BEDTIME lidocaine 5% 1 patch topical DAILY 30 days nystatin 1 mL PO DAILY onabotulinumtoxinA (Botox) 200 units IM [id number] ondansetron HCl 8 mg PO BEDTIME PRN oxybutynin chloride ER 10 mg PO DAILY simethicone (Gas Relief (simethicone)) 125 mg PO BID-QID PRN sumatriptan succinate 50 mg PO DAILY PRN Synthroid (levothyroxine) 50 mcg PO DAILY 90 days NS trazodone 100 mg PO BEDTIME HPI Comments Details: Patient is a 59-year-old female with hx of bilateral breast cancer (dx in 2010 s/p chemo and bilateral mastectomy), asthma, hypothyroidism, bipolar 2 disorder, migraines, cardiomyopathy, GERD, PTSD, osteopenia with low FRAX, SLE and fibromyalgia here today for follow up Interval History: Patient last seen 11/29/[address] Izquierdo - not on any rheumatology medications - being evaluated for her fibromyalgia and positive serologies - complained of widespread pain - no evidence of active inflammatory arthritis at that time and topical diclofenac was recommended Today - Not on any rheumatology medications - the pain does not let me live - very frustrated with Rheumatology in general, feels like they only want to give her steroids and Plaquenil - current main complaint is her right shoulder Rheumatologic History: Rhupus diagnosed in 2002 in [place]. Patients serology is significant for shaheen 1:1280 speckled, + Sm, ++ RF, neg CCP. Previously tried Plaquenil once daily but had GI upset and had to stop. Has not used Prednisone since 2010 approximately. Methortrexate and Cellcept caused GI upset and worsening leukopenia. Last seen in November 2019. Current Rheumatology Medication(s): [facility] Medical History (Updated 01/15/25 @ 13:22 by Nguyen Sebastian MD) Osteopenia SOB (shortness of breath) Bipolar depression Headache Cerumen impaction Otitis media Arthralgia Nausea Recurrent cystitis Screening for tuberculosis History of breast cancer in female Pharyngitis Oral pharyngeal candidiasis Bipolar 1 disorder Chronic idiopathic constipation Depression Chronic pruritus Urticaria Vitamin D deficiency Polyarthralgia Small bowel motility disorder Dry mouth and eyes Seborrhea capitis in adult Bilateral sciatica Urinary frequency Abdominal pannus Positive sm/STORE HAND antibody Family history of polyps in the colon Fracture of neck of left humerus Humeral head fracture Chronic gastritis Insomnia Hypothyroidism Seropositive rheumatoid arthritis Leukopenia Gingivitis History of breast cancer Estrogen receptor positive status [ER+] Ductal carcinoma in situ (DCIS) of left breast Autoimmune disorder PTSD (post-traumatic stress disorder) COVID-19 Bilateral knee pain Fibromyalgia Schatzki's ring Rheumatoid arthritis Small bowel motility disorder Osteoporosis Raynaud's disease without gangrene Anxiety Primary insomnia Constipation Acquired hypothyroidism Systemic lupus erythematosus Left temporomandibular joint disorder, unspecified Surgical History Hx of abdominoplasty History of esophagogastroduodenoscopy (EGD) Hx of colonoscopy History of bilateral mastectomy History of total abdominal hysterectomy and bilateral salpingo-oophorectomy History of cholecystectomy History of tubal ligation History of section Family History Father Prostate cancer Hypertension Mother Breast cancer Hypertension Asthma Maternal Aunt Breast cancer Maternal Grandmother Colon cancer Maternal Aunt Breast cancer Sister Bone cancer Social History Household Members: Children Household Members Other:: 2 daughters and 3 dogs Housing: House Do you presently have visiting nurse or other home services: No Alcohol intake: never Comment: 5 min safety checks Patient Tobacco Use Status: Never used Tobacco Tobacco use type: Cigarette e-Cigarette/Vaping Use: Never Used Second Hand Smoke Exposure: No Advance Directives Date on File: 08/12/20 service: No Current occupational status: disabled Current occupational exposures/hazards: No Sexual orientation: Straight/Heterosexual Gender identity: Female Cognitive needs: Yes (cane) Hearing needs: No Vision needs: Yes (Glasses) Female Reproductive History Menstrual Age of Menarche: 10 Review of Systems Const Details: Review of Systems Constitutional: Denies fever, chills, weight loss ENT: Denies vision changes, eye pain or eye redness, dental caries, dry mouth GI: Denies nausea, vomiting, diarrhea, abdominal pain, change in BM Pulm: Denies SOB, HARTMAN, hemoptysis, wheezing Cards: Denies chest pain, palpitations ROUGH AND TRUEING MACHINE OPERATOR: Denies headaches, weakness, paresthesias, recurrent falls MSK: as per HPI All other systems reviewed and are unremarkable except noted above Physical Exam Exam Exam: Vital signs reviewed Physical Examination CONSTITUITIONAL Patient alert and cooperative. Well appearing and in no apparent painful distress HENT No oral or nasal ulcers MSK Hands * Right Hand: Able to make a fist. No swelling or tenderness to palpation of the MCPs, PIPs or DIPs. * Left Hand: Able to make a fist. No swelling or tenderness to palpation of the MCPs, PIPs or DIPs. Wrists * Right Wrist: Full ROM to flexion and extension. No swelling or TTP * Left Wrist: Full ROM to flexion and extension. No swelling or TTP Elbows * Right Elbow: Full ROM. No swelling or TTP. No TTP of the medial epicondyle. No TTP of the lateral epicondyle * Left Elbow: Full ROM. No swelling or TTP. No TTP of the medial epicondyle. No TTP of the lateral epicondyle Shoulders * Right shoulder: Decreased ROM. No swelling noted. No TTP of the AC joint. TTP of the subacromial bursa. No TTP of the posterior shoulder * Left shoulder: Full ROM. No swelling noted. No TTP of the AC joint. No TTP of the subacromial bursa. No TTP of the posterior shoulder Knees * Right knee: Full ROM. No swelling noted. No TTP of the knee joint line. No TTP of pes anserine bursa * Left knee: Full ROM. No swelling noted. No TTP of the knee joint line. No TTP of pes anserine bursa. * Crepitations felt bilaterally Ankles * Right ankle: Good ankle dorsiflexion and plantar flexion. No swelling. No TTP of the ankle joint * Left ankle: Good ankle dorsiflexion and plantar flexion. No swelling. No TTP of the ankle joint Feet * Right foot: Negative squeeze test * Left foot: Negative squeeze test Tender points? * Tenderness to palpation of the bilateral trapezius, supraspinatus, anterior costochondral junctions, bilateral suboccipital muscle insertions SKIN No rashes Vital Signs: Last Vital Signs Pulse 80 01/09/25 14:11 BP 124/78 01/09/25 14:11 Pulse Ox 98 01/09/25 14:11 Oxygen Delivery Method Room Air 01/09/25 14:11 BMI result Body Mass Index 21.7 Office Procedures AMB Joint Injection/Aspiration Joint Injection/Aspiration Details: Procedure was explained to the patient and informed consent was obtained. ? Risks associated with the procedure were discussed with the patient including but not limited to bleeding, infection, drug reactions and reactions to the topical anesthetic. Patient made aware of signs to look out for infectious complications. The area of interest was identified and confirmed with patient. ?This was subsequently cleaned with chlorhexidine x 2. ? The area was then anesthetized using ethyl chloride spray. 30mg ketorolac was injected without issue. ?Minimal to no bleeding. ?Patient tolerated procedure. Primary Site: right shoulder Prep: site was prepped using aseptic technique and ethochloride spray was applied Injected: other (30 mg of ketorolac) Procedure: The patient tolerated the procedure well Coding 56514 - Glenohumeral/Tronchanteric Bursa/Intraarticular Procedure code (CPT) selection complete Office Meds ketorolac 30 mg/mL injection solution Performing Provider: Nguyen Sebastian MD Performing Location[facility] [place] [facility] Administered by: Stanley Gomez RN on 01/09/25 16:12 Dose Route Admin Location Dispensed Lot Number Expiration Date [facility] Oxygraph Operator 30 mg intra-articular right subacromial bursa 1 mL [id number] 07/29/25 93171-931-14 Total Dispensed Waste 1 mL 0 % Results Reviewed Results Reviewed: Laboratory Tests 07/20/24 08/13/24 10/02/24 10:52 18:51 12:25 WBC 3.7 L RBC 3.86 L Hgb 10.1 L Hct 31.9 L Plt Count 188 ESR 44 H Sodium 142 Potassium 4.3 Chloride 109 H Carbon Dioxide 24 BUN 11 Creatinine 0.59 AST 23 ALT 15 Laboratory Tests 12/16/21 07/07/23 06/03/24 10:52 12:15 07:11 Rheumatoid Factor 15.6 H SHAHEEN Screen POSITIVE A SHAHEEN Titer 1:320 H SHAHEEN Pattern Nuclear, Speckled A Sm (Myers) Antibody <1.0 NEG SM/STORE HAND IgG Antibody >8.0 POS A Scl-70 Scleroderma Ab <1.0 NEG Double Strand DNA Ab 1 DEXA 07/2024 FINDINGS: The bone mineral density of the lumbar spine is 1.054 with a T-score of -1.0, and a Z-score of 0.7. This is indicative of normal bone mineral density. This represents a BMD change of -1.9% compared to the prior exam. This is not statistically significant. The bone mineral density of the left total hip is 0.951 with a T-score of -0.5, and a Z-score of 0.8. This is indicative of normal bone mineral density. This represents a BMD change of -3.3% compared to the prior exam. This is not statistically significant. The bone mineral density of the left femoral neck is 0.871 with a T-score of -1.2, and a Z-score of 0.4. This is indicative of osteopenia. This represents a BMD change of -4.6% compared to the prior exam. FRACTURE RISK: The FRAX index suggests a ten year probability of major osteoporotic fracture of 8.6%, and of hip fracture 0.7%. Assessment & Plan Assessment & Plan (1) Systemic lupus erythematosus: Code(s): M32.9 - Systemic lupus erythematosus, unspecified Category: Medical Qualifiers: Systemic lupus erythematosus type: unspecified Systemic lupus erythematosus organ involvement: unspecified Qualified Code(s): M32.9 - Systemic lupus erythematosus, unspecified Plan: #SLE Patient is a 59-year-old female with a diagnosis of lupus currently here for follow up. No evidence of any active lupus at this time with no evidence of synovitis, rash, ulcers or alopecia. Had a very long discussion with the patient about her diagnosis of lupus and despite her current complaints of widespread pain that this is not related to her active lupus. She was very adamant against being given hydroxychloroquine or steroids because in the past that is all her manufacturing maintenance mechanic have given her. I explained the reasoning behind hydroxychloroquine and lupus as well as the role of steroids in the treatment of lupus. There was a lot of back and forth about this but ultimately the patient understood and ideally would like to not be on hydroxychloroquine or any form of steroids whether that be p.o. or injectable Plan - Monitor off immunosuppression - RTC 6 months - Labs before visit: CBC, CMP, ESR, CRP, C3, C4, dsDNA, UA, UPC (2) Fibromyalgia: Code(s): M79.7 - Fibromyalgia Category: Medical Plan: #Fibromyalgia Patient without any active lupus on examination today however her complaints and symptoms are more mary to fibromyalgia type symptoms with an elevated somatic symptom score and pain score. She is already taking gabapentin t.i.d. which helps she is not interested in any further medications at this time. She was given a ketorolac injection of her right shoulder for subacromial bursitis Plan - s/p ketorolac injection of subacromial bursitis - continue gabapentin from other providers (3) Osteopenia: Comment: DEXA 07/2024: AP Spine -1.0, Left femur neck -1.2, Left femur total -0.5. FRAX 8.6/0.7 Code(s): M85.80 - Other specified disorders of bone density and structure, unspecified site Category: Medical Qualifiers: Osteopenia location: femoral neck Laterality: left Qualified Code(s): M85.852 - Other specified disorders of bone density and structure, left thigh Plan: #Osteopenia Patient with osteopenia of her left femur neck with low FRAX index. No indication for starting antiresorptives at this time Plan This is my first visit with this patient. I spent 45 minutes reviewing the record and labs, taking a history, examining the patient, discussing the treatment plan, explaining diagnosis, ordering diagnostic work up and documenting in the medical record Orders: Orders AMB Joint Injection/Aspiration 01/09/25 M75.51 - Bursitis of right shoulder Erythrocyte Sedimentation Rate 6 Months M32.9 - Systemic lupus erythematosus, unspecified Anti DNA DS Antibody 6 Months M32.9 - Systemic lupus erythematosus, unspecified Protein Creatinine Ratio, Ur 6 Months M32.9 - Systemic lupus erythematosus, unspecified Complete Blood Count Auto Diff 6 Months M32.9 - Systemic lupus erythematosus, unspecified Comprehensive Met. Panel 6 Months M32.9 - Systemic lupus erythematosus, unspecified C Reactive Protein 6 Months M32.9 - Systemic lupus erythematosus, unspecified Complement C3 6 Months M32.9 - Systemic lupus erythematosus, unspecified Complement C4 6 Months M32.9 - Systemic lupus erythematosus, unspecified UA ClnCatch+Micro w/rflx Cult 6 Months M32.9 - Systemic lupus erythematosus, unspecified Coding Level of Care Code Est Pt Level 5 (30949) Complex EM visit Add On G2211 Diagnoses Systemic lupus erythematosus, unspecified SLE type, unspecified organ involvement status M32.9 Systemic lupus erythematosus type: unspecified Systemic lupus erythematosus organ involvement: unspecified Fibromyalgia M79.7 Osteopenia of neck of left femur M85.852 Osteopenia location: femoral neck Laterality: left CPT Codes Coding - Joint 7: 53675 - Glenohumeral/Tronchanteric Bursa/Intraarticular ([id number])
[2025-01-09 14:11] VITALS: BP 124/78; PULSE 80; O2SAT 98; BMI 21.7
--- OUTSIDE RECORDS SUMMARY | 2025-01-09 17:52 | XMS_ITS | Encounter Summary ---
Author Organization [employer] Address [address] [facility] [address] [facility] [address] [place] [address] Care Team Providers Care Bridge/Structure Inspection Team Leader Name Role Phone Unavailable Primary Care Provider Unavailabl e Encounter Details Date Type Department Care Team (Latest Contact Info) Description 07/09/2018 Abstract [facility] CONVERSIONS Dental, Provider, DDS Social [...]
--- OUTSIDE RECORDS SUMMARY | 2025-01-09 17:52 | XMS_ITS | Clinical Summary ---
Author Organization [facility] Address [address] [place] [address] Care Team Providers Care Traffic Monitor Specialist Name Role Phone Chuck Davila MD Primary Care Provider [phone] Allergies Active Allergy Reactions Criticality Noted Date [...] age to complete this topic Care Teams Traffic Monitor Specialist Relationship Specialty Start Date End Date Chuck Davila MD [address] [place] [address] [place] [address] PCP - General Internal Medicine 04/07/23
--- OUTSIDE RECORDS SUMMARY | 2025-01-09 17:52 | XMS_ITS | Clinical Summary ---
Author Organization [facility] Address [address] [place] [address] Care Team Providers Care Elocution Teacher Name Role Phone Chuck Davila MD Primary Care Provider [phone] Surgical History Surgery Date Site/Laterality Comments SECTION PROCEDURE: SECTION TUBAL LIGATION PROCEDURE:TUBAL LIGATION MASTECTOMY PROCEDURE:MASTECTOMY COLONOSCOPY PROCEDURE:COLONOSCOPY HYSTERECTOMY PROCEDURE:HYSTERECTOMY Medical History Medical History Date Comments Breast cancer (CMS/HCC V24, CMS/[facility] V28) DX:Breast cancer (HCC) Disease of thyroid [...] age to complete this topic Care Teams Elocution Teacher Relationship Specialty Start Date End Date Chuck Davila MD [address] [place] [address] [address] ANJU Huerta PCP - General 04/07/23
--- OUTSIDE RECORDS SUMMARY | 2025-01-09 17:52 | XMS_ITS | Clinical Summary ---
Author Organization [employer] Address [address] [place] [address] [address] [place] [address] Care Team Providers Care Pet Care Attendant Name Role Phone Unavailable Primary Care [...]
== END 2025-01-09 15:32 | disposition home or self-care (01) ==
LOC: HO.RHES 14:03
PROVIDERS: PCP Internal Medicine; Visit Provider Student in an Organized Health Care Education/Training Program
DX: M75.51 Bursitis of right shoulder (principal)

== ENCOUNTER → 2025-01-09 14:02 | Outpatient (BNVA) | payer OTHER, SELFPAY | PROVIDERS: PCP Internal Medicine; Visit Provider Student in an Organized Health Care Education/Training Program | DX: M75.51 Bursitis of right shoulder (principal); M32.9 Systemic lupus erythematosus, unspecified; M79.7 Fibromyalgia; M85.852 Other specified disorders of bone density and structure, left thigh | CPT/HCPCS: 20610; 99212; J1885 ==

== ENCOUNTER 2025-01-15 14:28 | Outpatient (AMB) | payer OTHER, SELFPAY ==
--- NOTE | 2025-01-15 14:49 | MHC.OFFVIS ---
Intake Visit Reasons: 200u for Chr. Migraine Allergies Sulfa (Sulfonamide Antibiotics) Allergy (Severe, Verified 01/09/25 14:09) Itching codeine (CODEINE) Allergy (Intermediate, Verified 01/09/25 14:09) ITCHING hydroxychloroquine (From PLAQUENIL) Allergy (Intermediate, Verified 01/09/25 14:09) VOMITING morphine (MORPHINE) Allergy (Intermediate, Verified 01/09/25 14:09) ITCHING Estrogens Allergy (Mild, Verified 01/09/25 14:09) Unknown levothyroxine sodium Allergy (Unknown, Verified 01/09/25 14:09) rash,throat closes prednisone Allergy (Unknown, Verified 01/09/25 14:09) Unknown Corticosteroids (Glucocorticoids) (CORTICOSTEROIDS (GLUCOCORTICOIDS)) Adverse Reaction (Severe, Verified 01/09/25 14:09) DIFFICULTY BREATHING escitalopram (From Lexapro) Adverse Reaction (Severe, Verified 01/09/25 14:09) seizure meloxicam Adverse Reaction (Severe, Verified 01/09/25 14:09) Gastrointestinal Upset tadalafil (From Cialis) Adverse Reaction (Intermediate, Verified 01/09/25 14:09) Nausea and Vomiting acetaminophen (Percocet) Adverse Reaction (Unknown, Verified 01/09/25 14:09) Unknown duloxetine Adverse Reaction (Unknown, Verified 01/09/25 14:09) Unknown fluconazole Adverse Reaction (Unknown, Verified 01/09/25 14:09) Itch, pain, Medication List - Last Reconciled 01/15/25 by Polly Key MD albuterol sulfate 90 mcg/actuation (Ventolin HFA) 2 puffs inhalation Q6H PRN bisacodyl 10 mg (2 x 5 mg) PO BEDTIME bupropion HCl XL 150 mg PO QAM clonazepam 1 mg PO TID diclofenac sodium 75 mg PO BID diclofenac sodium 1% 2 grams topical ONCE PRN ferrous sulfate 324 mg PO DAILY gabapentin 300 mg PO TID lamotrigine 50 mg (2 x 25 mg) PO BEDTIME lidocaine 5% 1 patch topical DAILY 30 days nystatin 1 mL PO DAILY onabotulinumtoxinA (Botox) 200 units IM [id number] ondansetron HCl 8 mg PO BEDTIME PRN simethicone (Gas Relief (simethicone)) 125 mg PO BID-QID PRN Synthroid (levothyroxine) 50 mcg PO DAILY 90 days NS trazodone 100 mg PO BEDTIME HPI Comments Details: Says she is doing terrible for 1 month with constant generalized headache with pulsations in the head. . Also has diarrhea and also gets vomiting upto yesterday. She is dizzy also. No fever. No sinus symptoms. Is dizzy. One fall recently . Has had multiple falls in the past with lightheaded and vertiginous episodes. Has had this before for 2-3 months. She is a poor historian. She has chronic headaches.? Gets??Botox injection for jaw dystonia and for migraine. Botox helped her pain about 30%. She has chr. jaw pain and headaches for Botox for jaw dystonia and tightness. Tightness in opening mouth. Notices effects of Botox wear off just before 3 month cassius. No trouble swallowing solids, no issues with liquids. Not sleeping. Has generalized pains. Botox has helped a lot in mouth opening. At times unsteady on walking and feeling off balance. Body hurts all over. H/O multiple falls last fall 2 months ago down the stairs went to ER. Had admission to for depression with OD with suicidal intent and had 4 ECT treatments. Mild crisis as she ran out of meds. She says she gets dizzy spells that make her fall. She is also shaky. On one occasion she had loss of consciousness but usually falls without losing consciousness. No history of stroke or seizures. She had an MRI of the brain on 06/14/17, which was unremarkable. She gets some vertiginous sensations at times, specially when she lies down, the room spins a bit. ?Was hospitalized for psych reasons for a month in May. [facility], [facility] Medical History (Updated 01/15/25 @ 15:02 by Polly Key MD) Headache Osteopenia SOB (shortness of breath) Bipolar depression Cerumen impaction Otitis media Arthralgia Nausea Recurrent cystitis Screening for tuberculosis History of breast cancer in female Pharyngitis Oral pharyngeal candidiasis Bipolar 1 disorder Chronic idiopathic constipation Depression Chronic pruritus Urticaria Vitamin D deficiency Polyarthralgia Small bowel motility disorder Dry mouth and eyes Seborrhea capitis in adult Bilateral sciatica Urinary frequency Abdominal pannus Positive sm/[employer] antibody Family history of polyps in the colon Fracture of neck of left humerus Humeral head fracture Chronic gastritis Insomnia Hypothyroidism Seropositive rheumatoid arthritis Leukopenia Gingivitis History of breast cancer Estrogen receptor positive status [ER+] Ductal carcinoma in situ (DCIS) of left breast Autoimmune disorder PTSD (post-traumatic stress disorder) COVID-19 Bilateral knee pain Fibromyalgia Schatzki's ring Rheumatoid arthritis Small bowel motility disorder Osteoporosis Raynaud's disease without gangrene Anxiety Primary insomnia Constipation Acquired hypothyroidism Systemic lupus erythematosus Left temporomandibular joint disorder, unspecified Surgical History Hx of abdominoplasty History of esophagogastroduodenoscopy (EGD) Hx of colonoscopy History of bilateral mastectomy History of total abdominal hysterectomy and bilateral salpingo-oophorectomy History of cholecystectomy History of tubal ligation History of section Family History Father Prostate cancer Hypertension Mother Breast cancer Hypertension Asthma Maternal Aunt Breast cancer Maternal Grandmother Colon cancer Maternal Aunt Breast cancer Sister Bone cancer Social History Household Members: Children Household Members Other:: 2 daughters and 3 dogs Housing: House Do you presently have visiting nurse or other home services: No Alcohol intake: never Comment: 5 min safety checks Patient Tobacco Use Status: Never used Tobacco Tobacco use type: Cigarette e-Cigarette/Vaping Use: Never Used Second Hand Smoke Exposure: No Advance Directives Date on File: 08/12/20 service: No Current occupational status: disabled Current occupational exposures/hazards: No Sexual orientation: Straight/Heterosexual Gender identity: Female Cognitive needs: Yes (cane) Hearing needs: No Vision needs: Yes (Glasses) Female Reproductive History Menstrual Age of Menarche: 10 Review of Systems Const Details: ?Sleep:? Difficulty getting to sleepdenies.? Difficulty maintaining sleepdenies?.? Urge to move legsdenies.? Teeth grindingdenies.? Shouting or Kicking during sleepdenies.? Abnormal behavior during sleepdenies.? Excessive sleepdenies.? Snoringdenies.? Daytime sleepinessdenies. ???General/Constitutional:? Change in appetitedenies.? Chillsdenies.? Fatiguedenies.? Feverdenies.? Weight gaindenies.? Weight lossdenies. ???Ophthalmologic:? Blurred visiondenies.? Diminished visual acuitydenies. ???ENT:? Stuffinessdenies.? Decreased hearingdenies.? Dry mouthdenies.? Ear paindenies.? Nosebleeddenies.? Ringing in the earsdenies.? Sinus paindenies.? Sore throatdenies.? Swollen glandsdenies. ???Endocrine:? Cold intolerancedenies.? Excessive thirstdenies.? Frequent urinationdenies.? Heat intolerancedenies. ???Respiratory:? Shortness of breathdenies.? Chest paindenies.? Coughdenies. ???Breast:? Breast lumpdenies.? Nipple dischargedenies. ???Cardiovascular:? Chest pain at restdenies.? Chest pain with exertiondenies.? Claudicationdenies.? Dizzinessdenies.? Fluid accumulation in the legsdenies.? Irregular heartbeatdenies.? Palpitationsdenies. ???Gastrointestinal:? Abdominal paindenies.? Constipationdenies.? Diarrheadenies.? Difficulty swallowingdenies.? Heartburndenies.? Nauseadenies.? Rectal bleedingdenies. ???Hematology:? Easy bruisingdenies.? Prolonged bleedingdenies. ???Genitourinary:? Frequent urinationdenies.? Urgencydenies.? Incontinencedenies.? Erectile Dysfunctiondenies. ???Musculoskeletal:? Neck paindenies.? Back paindenies.? Muscle achesdenies.? Painful jointsdenies.? Sciaticadenies.? Weaknessdenies. ???Podiatric:? Difficulty walkingdenies.? Foot numbnessdenies. ???Neurologic:? Difficulty swallowingdenies.? Balance difficultydenies.? Coordinationnormal.? Difficulty speakingdenies.? Dizzinessdenies.? Faintingdenies.? Gait abnormalitydenies.? Headachedenies.? Loss of strengthdenies.? Loss of use of extremitydenies.? Low back paindenies.? Memory lossdenies.? Seizuresdenies.? Ticsdenies.? Tingling/Numbnessdenies.? Transient loss of visiondenies.? Tremordenies. ???Psychiatric:? Anxietydenies.? Auditory/visual hallucinationsdenies.? Delusionsdenies.? Depressed mooddenies.? Stressorsdenies.? Substance abusedenies.? Suicidal thoughtsdenies. Physical Exam Neuro Other: General Examination: GENERAL APPEARANCE:??normal,?in no acute distress?,?normal,?in no acute distress.?HEART:??S1, S2 normal,?no murmurs?,?S1, S2 normal,?no murmurs.?LUNGS:??clear anteriorly and posteriorly?,?clear anteriorly and posteriorly.?MUSCULOSKELETAL:??normal?,?normal.?EXTREMITIES:??no edema?,?no edema.?PSYCH:??alert, oriented,?cognitive function intact,?cooperative with exam?,?alert, oriented,?cognitive function intact,?cooperative with exam.? Neurological: Abnormal neurological findings:??none.?Mental Status:??alert and oriented X 3,?Normal attention, orientation, memory and affect.?Cranial Nerves:??Pupils are equal, round and reactive to light. Fundoscopy shows normal disc bilaterally. External occular muscles are intact. Visual ordoñez are full, no ptosis. Face is symmetrical, no facial weakness or droop. Facial sensations are normal. Tongue protrudes in midline. Palate elevates symmetrically. Shoulder shrugging is normal..?Motor Examination:??Normal muscle tone, bulk and strength,?No atrophy or fasciculations,?No drift of the extended upper extremities,?Deep tendon reflexes are 2+?,?Plantars are flexor?.?Motor Strength:?Proximal Muscles (out of 5):5Distal Muscles (out of 5):5Neck Flexors (out of 5):5Neck Extensors (out of 5):5Deltoid (out of 5):5Biceps (out of 5):5Triceps (out of 5):5Serratus Anterior (out of 5):5Wrist Extensors (out of 5):5APB (out of 5):5Finger Spread (out of 5):5Ileopsoas (out of 5):5Quadriceps (out of 5):5Hamstrings (out of 5):5Tibialis Anterior (out of 5):5Peronei (out of 5):5EDB (out of 5):5Gastrocnemius (out of 5):5Straight Leg Raising:??90 degrees.?Sensory Exam:??Normal light touch, temperature, pinprick, vibration and joint-position sensations?,?Rhomberg sign is absent.?Coordination:??no ataxia,?no titubation,?[id number], bidq-[id number] test and rapid alternating movements were normal.?Gait Exam:??Within normal limits.?Cerebellar Signs:??[id number] and nmyk-[id number] is normal,?no dysdiadochokinesia?.?Extrapyramidal System:??No tremor, rigidity with normal facial expressions,?No bradykinesia, no bradyphrenia. Normal arm swing and posture. No propulsion or retropulsion.?Speech:??Normal,?no dysphasia or dysarthria..? Assessment & Plan Assessment & Plan (1) Dystonia: Code(s): G24.9 - Dystonia, unspecified Category: Medical (2) Headache: Code(s): R51.9 - Headache, unspecified Category: Medical Qualifiers: Headache type: unspecified Headache chronicity pattern: episodic headache Intractability: not intractable Qualified Code(s): R51.9 - Headache, unspecified Plan Check sed rate and CBC. Scheduled Botox for the next scheduled visit. Start topiramate 50 mg b.i.d. Orders: Orders Erythrocyte Sedimentation Rate Today R51.9 - Headache, unspecified Complete Blood Count Auto Diff Today R51.9 - Headache, unspecified Medications: New topiramate XR 50 mg PO BID 60 caps 4RF 30 days Changed From onabotulinumtoxinA (Botox) 200 units IM [id number] To onabotulinumtoxinA (Botox) 200 units IM [id number] 1 ea 3RF 90 days Coding Level of Care Code Est Pt Level 4 (24061) Diagnoses Dystonia G24.9 Nonintractable episodic headache, unspecified headache type R51.9 Headache type: unspecified Headache chronicity pattern: episodic headache Intractability: not intractable
--- OUTSIDE RECORDS SUMMARY | 2025-01-15 18:13 | XMS_ITS | Clinical Summary ---
Author Organization [employer] Address [address] [place] [address] [address] [place] [address] Care Team Providers Care Senior Executive Compensation Analyst Name Role Phone Unavailable Primary Care Provider [...]
--- OUTSIDE RECORDS SUMMARY | 2025-01-15 18:13 | XMS_ITS | Clinical Summary ---
Author Organization [facility] Address [address] [place] [address] Care Team Providers Care Transplanter Name Role Phone Chuck Davila MD Primary Care Provider Surgical History Surgery Date Site/Laterality Comments SECTION PROCEDURE: SECTION TUBAL LIGATION PROCEDURE:TUBAL LIGATION MASTECTOMY PROCEDURE:MASTECTOMY COLONOSCOPY PROCEDURE:COLONOSCOPY HYSTERECTOMY PROCEDURE:HYSTERECTOMY Medical History Medical History Date Comments Breast cancer (CMS/HCC V24, CMS/FORMERLY [facility] V28) DX:Breast cancer (HCC) Disease of thyroid [...] age to complete this topic Care Teams Transplanter Relationship Specialty Start Date End Date Chuck Davila MD [address] [place] [address] Dr [address] ANJU Huerta PCP - General 04/07/23
--- OUTSIDE RECORDS SUMMARY | 2025-01-15 18:13 | XMS_ITS | Encounter Summary ---
Author Organization [employer] Address [address] [facility] [address] [place] [address] Care Team Providers Care Speech Language Pathology Assistant Name Role Phone Unavailable Primary Care Provider Unavailabl e Encounter Details Date Type Department Care Team (Latest Contact Info) Description 07/09/2018 Abstract [facility] CONVERSIONS Dental, Provider, DDS Social History [...]
--- OUTSIDE RECORDS SUMMARY | 2025-01-15 18:13 | XMS_ITS | Clinical Summary ---
Author Organization [facility] Address [address] [place] [address] Care Team Providers Care Portrait Photographer Name Role Phone Chuck Davila MD Primary Care Provider [phone]- [phone] Allergies Active Allergy Reactions Criticality Noted Date [...] age to complete this topic Care Teams Portrait Photographer Relationship Specialty Start Date End Date Chuck Davila MD [address] [place] [address] [place] [id number] PCP - General Internal Medicine 04/07/23
== END 2025-01-15 16:14 | disposition home or self-care (01) ==
LOC: HO.HSM 14:29
PROVIDERS: PCP Internal Medicine; Visit Provider Psychiatry & Neurology Neurology
DX: G24.9 Dystonia, unspecified (principal); R51.9 Headache, unspecified
CPT/HCPCS: 99214

== ENCOUNTER → 2025-01-15 14:28 | Outpatient (BNVA) | payer OTHER, SELFPAY | PROVIDERS: PCP Internal Medicine; Visit Provider Psychiatry & Neurology Neurology | DX: G43.709 Chronic migraine without aura, not intractable, without status migrainosus (principal) | CPT/HCPCS: 64615; 99211; J0585 ==

== ENCOUNTER 2025-01-15 15:52 | Outpatient (AMB) | payer OTHER, SELFPAY ==
[2025-01-15 15:59] VITALS: BP 113/82; RESP 16; BMI 21.3
--- NOTE | 2025-01-15 15:59 | A.OFFVIS_ITS ---
Vital Signs 01/15/25 15:59 Height 5 ft 1 in Weight 113 lb BMI 21.3 BP 113/82 Blood Pressure Location Rt brachial Position Sitting Respiration 16 Intake Visit Reasons: 200 units migraine Allergies Sulfa (Sulfonamide Antibiotics) Allergy (Severe, Verified 01/09/25 14:09) Itching codeine (CODEINE) Allergy (Intermediate, Verified 01/09/25 14:09) ITCHING hydroxychloroquine (From PLAQUENIL) Allergy (Intermediate, Verified 01/09/25 14:09) VOMITING morphine (MORPHINE) Allergy (Intermediate, Verified 01/09/25 14:09) ITCHING Estrogens Allergy (Mild, Verified 01/09/25 14:09) Unknown levothyroxine sodium Allergy (Unknown, Verified 01/09/25 14:09) rash,throat closes prednisone Allergy (Unknown, Verified 01/09/25 14:09) Unknown Corticosteroids (Glucocorticoids) (CORTICOSTEROIDS (GLUCOCORTICOIDS)) Adverse Reaction (Severe, Verified 01/09/25 14:09) DIFFICULTY BREATHING escitalopram (From Lexapro) Adverse Reaction (Severe, Verified 01/09/25 14:09) seizure meloxicam Adverse Reaction (Severe, Verified 01/09/25 14:09) Gastrointestinal Upset tadalafil (From Cialis) Adverse Reaction (Intermediate, Verified 01/09/25 14:09) Nausea and Vomiting acetaminophen (Percocet) Adverse Reaction (Unknown, Verified 01/09/25 14:09) Unknown duloxetine Adverse Reaction (Unknown, Verified 01/09/25 14:09) Unknown fluconazole Adverse Reaction (Unknown, Verified 01/09/25 14:09) Itch, pain, PFSH Medical History (Updated 01/15/25 @ 15:02 by Polly Key MD) Headache Osteopenia SOB (shortness of breath) Bipolar depression Cerumen impaction Otitis media Arthralgia Nausea Recurrent cystitis Screening for tuberculosis History of breast cancer in female Pharyngitis Oral pharyngeal candidiasis Bipolar 1 disorder Chronic idiopathic constipation Depression Chronic pruritus Urticaria Vitamin D deficiency Polyarthralgia Small bowel motility disorder Dry mouth and eyes Seborrhea capitis in adult Bilateral sciatica Urinary frequency Abdominal pannus Positive sm/[employer] antibody Family history of polyps in the colon Fracture of neck of left humerus Humeral head fracture Chronic gastritis Insomnia Hypothyroidism Seropositive rheumatoid arthritis Leukopenia Gingivitis History of breast cancer Estrogen receptor positive status [ER+] Ductal carcinoma in situ (DCIS) of left breast Autoimmune disorder PTSD (post-traumatic stress disorder) COVID-19 Bilateral knee pain Fibromyalgia Schatzki's ring Rheumatoid arthritis Small bowel motility disorder Osteoporosis Raynaud's disease without gangrene Anxiety Primary insomnia Constipation Acquired hypothyroidism Systemic lupus erythematosus Left temporomandibular joint disorder, unspecified Surgical History Hx of abdominoplasty History of esophagogastroduodenoscopy (EGD) Hx of colonoscopy History of bilateral mastectomy History of total abdominal hysterectomy and bilateral salpingo-oophorectomy History of cholecystectomy History of tubal ligation History of section Family History Father Prostate cancer Hypertension Mother Breast cancer Hypertension Asthma Maternal Aunt Breast cancer Maternal Grandmother Colon cancer Maternal Aunt Breast cancer Sister Bone cancer Social History Household Members: Children Household Members Other:: 2 daughters and 3 dogs Housing: House Do you presently have visiting nurse or other home services: No Alcohol intake: never Comment: 5 min safety checks Patient Tobacco Use Status: Never used Tobacco Tobacco use type: Cigarette e-Cigarette/Vaping Use: Never Used Second Hand Smoke Exposure: No Advance Directives Date on File: 08/12/20 service: No Current occupational status: disabled Current occupational exposures/hazards: No Sexual orientation: Straight/Heterosexual Gender identity: Female Cognitive needs: Yes (cane) Hearing needs: No Vision needs: Yes (Glasses) Female Reproductive History Menstrual Age of Menarche: 10 Coding
--- NOTE | 2025-01-15 15:59 | A.OFFVIS_ITS ---
Vital Signs 01/15/25 15:59 Height 5 ft 1 in Weight 113 lb BMI 21.3 BP 113/82 Blood Pressure Location Rt brachial Position Sitting Respiration 16 Intake Visit Reasons: 200 units migraine Dental Ceramist Assistant Required: Yes Dental Ceramist Assistant Services: Dental Ceramist Assistant Present Dental Ceramist Assistant Name: Ravin ID [id number] Allergies Sulfa (Sulfonamide Antibiotics) Allergy (Severe, Verified 01/15/25 16:01) Itching codeine (CODEINE) Allergy (Intermediate, Verified 01/15/25 16:01) ITCHING hydroxychloroquine (From PLAQUENIL) Allergy (Intermediate, Verified 01/15/25 16:01) VOMITING morphine (MORPHINE) Allergy (Intermediate, Verified 01/15/25 16:01) ITCHING Estrogens Allergy (Mild, Verified 01/15/25 16:01) Unknown levothyroxine sodium Allergy (Unknown, Verified 01/15/25 16:01) rash,throat closes prednisone Allergy (Unknown, Verified 01/15/25 16:01) Unknown Corticosteroids (Glucocorticoids) (CORTICOSTEROIDS (GLUCOCORTICOIDS)) Adverse Reaction (Severe, Verified 01/15/25 16:01) DIFFICULTY BREATHING escitalopram (From Lexapro) Adverse Reaction (Severe, Verified 01/15/25 16:01) seizure meloxicam Adverse Reaction (Severe, Verified 01/15/25 16:01) Gastrointestinal Upset tadalafil (From Cialis) Adverse Reaction (Intermediate, Verified 01/15/25 16:01) Nausea and Vomiting acetaminophen (Percocet) Adverse Reaction (Unknown, Verified 01/15/25 16:01) Unknown duloxetine Adverse Reaction (Unknown, Verified 01/15/25 16:01) Unknown fluconazole Adverse Reaction (Unknown, Verified 01/15/25 16:01) Itch, pain, Medication List - Last Reconciled 01/15/25 by Carmen Byrne, WHITNEY albuterol sulfate 90 mcg/actuation (Ventolin HFA) 2 puffs inhalation Q6H PRN bisacodyl 10 mg (2 x 5 mg) PO BEDTIME bupropion HCl XL 150 mg PO QAM clonazepam 1 mg PO TID diclofenac sodium 75 mg PO BID diclofenac sodium 1% 2 grams topical ONCE PRN ferrous sulfate 324 mg PO DAILY gabapentin 300 mg PO TID lamotrigine 50 mg (2 x 25 mg) PO BEDTIME lidocaine 5% 1 patch topical DAILY 30 days nystatin 1 mL PO DAILY onabotulinumtoxinA (Botox) 200 units IM [id number] 90 days ondansetron HCl 8 mg PO BEDTIME PRN simethicone (Gas Relief (simethicone)) 125 mg PO BID-QID PRN Synthroid (levothyroxine) 50 mcg PO DAILY 90 days NS topiramate XR 50 mg PO BID 30 days trazodone 100 mg PO BEDTIME HPI Comments Details: Zara is a 59-year-old female patient following in the clinic for chronic migraine in the setting of bruxism who is here today for Botox therapy. She was originally scheduled with Dr. Key however the patient was switched to my schedule due to some scheduling conflicts. She notes that she does have improvement with the Botox therapy within the 1st 2 weeks of therapy though does have some where effect after the 1st 2 months. Overall, it has been quite helpful. She has had no complications from Botox therapy in the past. [facility] Medical History (Updated 01/15/25 @ 16:15 by Carmen Byrne CNP) Headache Osteopenia SOB (shortness of breath) Bipolar depression Cerumen impaction Otitis media Arthralgia Nausea Recurrent cystitis Screening for tuberculosis History of breast cancer in female Pharyngitis Oral pharyngeal candidiasis Bipolar 1 disorder Chronic idiopathic constipation Depression Chronic pruritus Urticaria Vitamin D deficiency Polyarthralgia Small bowel motility disorder Dry mouth and eyes Seborrhea capitis in adult Bilateral sciatica Urinary frequency Abdominal pannus Positive sm/[employer]STRATIONS MAP INKER antibody Family history of polyps in the colon Fracture of neck of left humerus Humeral head fracture Chronic gastritis Insomnia Hypothyroidism Seropositive rheumatoid arthritis Leukopenia Gingivitis History of breast cancer Estrogen receptor positive status [ER+] Ductal carcinoma in situ (DCIS) of left breast Autoimmune disorder PTSD (post-traumatic stress disorder) COVID-19 Bilateral knee pain Fibromyalgia Schatzki's ring Rheumatoid arthritis Small bowel motility disorder Osteoporosis Raynaud's disease without gangrene Anxiety Primary insomnia Constipation Acquired hypothyroidism Systemic lupus erythematosus Left temporomandibular joint disorder, unspecified Surgical History Hx of abdominoplasty History of esophagogastroduodenoscopy (EGD) Hx of colonoscopy History of bilateral mastectomy History of total abdominal hysterectomy and bilateral salpingo-oophorectomy History of cholecystectomy History of tubal ligation History of section Family History Father Prostate cancer Hypertension Mother Breast cancer Hypertension Asthma Maternal Aunt Breast cancer Maternal Grandmother Colon cancer Maternal Aunt Breast cancer Sister Bone cancer Social History Household Members: Children Household Members Other:: 2 daughters and 3 dogs Housing: House Do you presently have visiting nurse or other home services: No Alcohol intake: never Comment: 5 min safety checks Patient Tobacco Use Status: Never used Tobacco Tobacco use type: Cigarette e-Cigarette/Vaping Use: Never Used Second Hand Smoke Exposure: No Advance Directives Date on File: 08/12/20 service: No Current occupational status: disabled Current occupational exposures/hazards: No Sexual orientation: Straight/Heterosexual Gender identity: Female Cognitive needs: Yes (cane) Hearing needs: No Vision needs: Yes (Glasses) Female Reproductive History Menstrual Age of Menarche: 10 Physical Exam Vital Signs: Last Vital Signs Resp 16 01/15/25 15:59 BP 113/82 01/15/25 15:59 BMI result Body Mass Index 21.3 Const General: cooperative, healthy appearing, comfortable and no acute distress Nutritional Appearance: well nourished Orientation/consciousness: patient oriented x3 Limitations: no limitations HEENT Head: Yes normal to inspection and Yes normocephalic Eyes General: appearance normal, both eyes and all related structures Visual Saab: normal visual saab by confrontation Alignment and Position: alignment normal Periorbital: periorbital findings normal Eyelids: Yes eyelids normal Conjunctivae: conjunctivae normal Sclerae: sclerae normal Neck Neck: Yes normal visual inspection and Yes full ROM Back/Spine/Pelvis Other: Bilateral temporal tenderness and some notable atrophy to the bilateral temporalis muscles Neuro General: patient oriented x3 Cranial nerves: Yes CN's II-XII intact bilaterally and Yes Facial sensation intact/muscles of mastication intact (Jaw tenderness and difficulty opening jaw. ) Cognition (Neuro): normal cognition Gait exam (Neuro): Normal gait present Pupils: Normal pupillary reactivity/response: bilateral Psych Appearance: grossly normal Mental Status: mental status grossly normal Speech and movement: Normal speech and movement present and Clear speech present Affect: normal affect Attitude: cooperative Thought process: Normal thought process present Thought content: Normal thought content present Insight: Good insight present (Psych) Judgement: Good judgement present (Psych) Office Procedures Botulinum toxin Injection Details: Procedure: Botox therapy for Chronic Migraine Laterally: Bilateral Indications: Chronic Migraine Medications: Botox 155units Timeout performed before procedure, patient identified with full name and date of . Risks and benefits of procedure reviewed, as well as site verified, sonsent signed, allergies reviewed, and medication reconsilliatino reviewed/completed. Following universal hygiene protocol and PREEMPT protocol, Botox 200unit vial was reconstituted with 4cc normal saline for a final concentration of 5units/0.1cc. The areas of injection were cleansed with alcohol. A 30g 0.5 needle was used to administer the injections as below. Procerus: 5units midline Label Maker: 5units left and 5units right Frontalis: 10units left and 10units right Temporalis: 20units left and 20units right Occipitalis:15units left and 15units right Cervical paraspinal 10units left and 10units right Trapezius 15units left and 15units right No noted paresthesias during injection 155units of Botox used and 45units wasted per PREEMPT protocol Complications: None Patient was observed for 15 minutes after the procedure and discharged home with instructions to apply ice to their head as needed. 15903 - Migraine Procedure code (CPT) selection complete Office Meds onabotulinumtoxinA 200 unit solution for injection Performing Provider: Carmen Byrne CNP [place] [facility] [place] [facility] [place] Administered by: Carmen Byrne CNP on 01/15/25 16:16 Dose Route Admin Location Dispensed Lot Number Expiration Date [facility] [employer] Fabricator 155 unit IM 200 units [id number] ALLERGAN /BOTOX Total Dispensed Waste 200 units 22.5 % Assessment & Plan Assessment & Plan (1) Chronic migraine without aura without status migrainosus, not intractable: Code(s): G43.709 - Chronic migraine without aura, not intractable, without status migrainosus Category: Medical Plan Botox for chronic migraine. Botox therapy provided without any complications. -Botox therapy per PREEMPT protocol provided to patient -Follow-up in 12 weeks for next round of therapy and comprehensive headache review Orders: Orders AMB Botulinum toxin Injection - Patient Supplied N/C Today G43.709 - Chronic migraine without aura, not intractable, without status migrainosus Coding Level of Care Code Est Pt Level 1 (48281) Diagnoses Chronic migraine without aura without status migrainosus, not intractable G43.709 CPT Codes Botox Injection - Botox 3: 70693 - Migraine ([id number])
== END 2025-01-15 16:13 | disposition home or self-care (01) ==
LOC: HO.HSM 15:53
PROVIDERS: PCP Internal Medicine; Visit Provider Nurse Practitioner
DX: G43.709 Chronic migraine without aura, not intractable, without status migrainosus (principal)
CPT/HCPCS: 64615

== ENCOUNTER 2025-02-14 14:16 | Outpatient (REF) | payer OTHER, SELFPAY ==
--- NOTE | ~2025-02-14 | XR_ITS ---
EXAMINATION: XR STERNUM CLINICAL INFORMATION: R07.89 - Other chest pain COMPARISON: None available. TECHNIQUE: 2 views of the sternum were obtained. FINDINGS: There are no fractures. No bone, joint or soft tissue abnormality is demonstrated. XR/XR sternum min 2V IMPRESSION: Unremarkable examination. Electronically signed by: Samara Lovell MD 02/14/2025 04:15 PM EDT RP
== END 2025-02-14 14:17 | disposition home or self-care (01) ==
LOC: HO.HMGCX 14:16
PROVIDERS: PCP Internal Medicine; Visit Provider Physician Assistant
DX: R07.89 Other chest pain (principal); Z13.89 Encounter for screening for other disorder
CPT/HCPCS: 71120; 81003; 96372; 99212; J1885

== ENCOUNTER 2025-02-14 14:16 | Outpatient (AMB) | payer OTHER, SELFPAY ==
[2025-02-14 14:53] VITALS: BP 142/90; PULSE 80; TEMP 36.8; O2SAT 100; BMI 21.5
--- NOTE | 2025-02-14 14:53 | AM.OFFWIN_ITS ---
Intake Vital Signs 02/14/25 14:53 Height 5 ft 1 in Weight 114 lb BMI 21.5 BP 142/90 H Blood Pressure Location Lt brachial Position Sitting Pulse 80 Pulse Source Pulse Oximeter Temp 98.2 F Temp Source Oral Pulse Oximetry (%) 100 Oxygen Delivery Method Room Air Intake Visit Reasons: EP- Sternum Discomfort x 3 days Intake Note: Patient presents with sternal pain & pain when breathing x5 days due to her dog jumping on her chest. Patient also presents with concern for UTI. Patient Tobacco Use Status: Never used Tobacco Allergies Sulfa (Sulfonamide Antibiotics) Allergy (Severe, Verified 02/14/25 14:58) Itching codeine (CODEINE) Allergy (Intermediate, Verified 02/14/25 14:58) ITCHING hydroxychloroquine (From PLAQUENIL) Allergy (Intermediate, Verified 02/14/25 14:58) VOMITING morphine (MORPHINE) Allergy (Intermediate, Verified 02/14/25 14:58) ITCHING Estrogens Allergy (Mild, Verified 02/14/25 14:58) Unknown levothyroxine sodium Allergy (Unknown, Verified 02/14/25 14:58) rash,throat closes prednisone Allergy (Unknown, Verified 02/14/25 14:58) Unknown Corticosteroids (Glucocorticoids) (CORTICOSTEROIDS (GLUCOCORTICOIDS)) Adverse Reaction (Severe, Verified 02/14/25 14:58) DIFFICULTY BREATHING escitalopram (From Lexapro) Adverse Reaction (Severe, Verified 02/14/25 14:58) seizure meloxicam Adverse Reaction (Severe, Verified 02/14/25 14:58) Gastrointestinal Upset tadalafil (From Cialis) Adverse Reaction (Intermediate, Verified 02/14/25 14:58) Nausea and Vomiting acetaminophen (Percocet) Adverse Reaction (Unknown, Verified 02/14/25 14:58) Unknown duloxetine Adverse Reaction (Unknown, Verified 02/14/25 14:58) Unknown fluconazole Adverse Reaction (Unknown, Verified 02/14/25 14:58) Itch, pain, Do you need a note to return to daycare/school/sports/work: No HPI HPI Comments History of Present Illness Details History - The patient is a 59-year-old female pr esenting with urinary tract infection symptoms and chest pain following trauma. - Urinary tract infection: The patient r eported pain in the bladder area and a home positive urinary test. She has a history of interstitial cystitis. - The patient denied any blood in the ur ine but reported low back pain, lower abdominal pain and feverish sensations at night without measuring the temper ature. - Chest pain: The patient experienced ch est pain after being hit hard in the chest by her very large dog a couple of days ago, with tenderness when she touches it and associated shortness of breath. Review of Systems - Genitourinary: Reports bladder pain, d enies hematuria. - Musculoskeletal: Reports chest pain an d tenderness following trauma. - Constitutional: Reports feverish sensa tions at night, denies measured fever. - Respiratory: Reports dyspnea, denies c ough or wheezing. All systems reviewed and are unremarkable except as noted in HPI Physical Exam General: Cooperative, healthy appearing, comfortable, no acute distress and well developed Orientation: Patient oriented x3 Limitations: No limitations Head: Normal to inspection Ears: Hearing grossly normal bilaterally Face and sinus: Normal facial exam Neck: Normal visual inspection and Yes full ROM Respiratory: Normal respiratory effort, but reports shortness of breath and chest pain on the right side due to recent trauma. Skin: No rashes or lesions noted Neuro: Patient oriented x3 [facility] Medical History (Updated 02/14/25 @ 15:23 by Hedy Cerda PA-C) Headache Osteopenia SOB (shortness of breath) Bipolar depression Cerumen impaction Otitis media Arthralgia Nausea Recurrent cystitis Screening for tuberculosis History of breast cancer in female Pharyngitis Oral pharyngeal candidiasis Bipolar 1 disorder Chronic idiopathic constipation Depression Chronic pruritus Urticaria Vitamin D deficiency Polyarthralgia Small bowel motility disorder Dry mouth and eyes Seborrhea capitis in adult Bilateral sciatica Urinary frequency Abdominal pannus 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 sm/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 antibody Family history of polyps in the colon Fracture of neck of left humerus Humeral head fracture Chronic gastritis Insomnia Hypothyroidism Seropositive rheumatoid arthritis Leukopenia Gingivitis History of breast cancer Estrogen receptor positive status [ER+] Ductal carcinoma in situ (DCIS) of left breast Autoimmune disorder PTSD (post-traumatic stress disorder) COVID-19 Bilateral knee pain Fibromyalgia Schatzki's ring Rheumatoid arthritis Small bowel motility disorder Osteoporosis Raynaud's disease without gangrene Anxiety Primary insomnia Constipation Acquired hypothyroidism Systemic lupus erythematosus Left temporomandibular joint disorder, unspecified Surgical History Hx of abdominoplasty History of esophagogastroduodenoscopy (EGD) Hx of colonoscopy History of bilateral mastectomy History of total abdominal hysterectomy and bilateral salpingo-oophorectomy History of cholecystectomy History of tubal ligation History of section Family History Father Prostate cancer Hypertension Mother Breast cancer Hypertension Asthma Maternal Aunt Breast cancer Maternal Grandmother Colon cancer Maternal Aunt Breast cancer Sister Bone cancer Social History Household Members: Children Household Members Other:: 2 daughters and 3 dogs Housing: House Do you presently have visiting nurse or other home services: No Alcohol intake: never Comment: 5 min safety checks Patient Tobacco Use Status: Never used Tobacco Tobacco use type: Cigarette e-Cigarette/Vaping Use: Never Used Second Hand Smoke Exposure: No Advance Directives Date on File: 08/12/20 service: No Current occupational status: disabled Current occupational exposures/hazards: No Sexual orientation: Straight/Heterosexual Gender identity: Female Cognitive needs: Yes (cane) Hearing needs: No Vision needs: Yes (Glasses) Female Reproductive History Menstrual Age of Menarche: 10 Physical Exam Vital Signs: Last Vital Signs Temp 98.2 F 02/14/25 14:53 Pulse 80 02/14/25 14:53 BP 142/90 H 02/14/25 14:53 Pulse Ox 100 02/14/25 14:53 Oxygen Delivery Method Room Air 02/14/25 14:53 BMI result Body Mass Index 21.5 Results AMB Urinalysis, Automated UA Leukoctes 15 Kristie/uL Last Edit by Swetha Galarza CMA on 02/14/25 15:19 UA Nitrite Negative Last Edit by Swetha Galarza CMA on 02/14/25 15:19 UA Urobilinogen 0.2 mg/dL Last Edit by Swetha Galarza CMA on 02/14/25 15: 19 UA Protein 30 mg/dL Last Edit by Swetha Galarza CMA on 02/14/25 15:19 UA pH 6.0 Last Edit by Swetha Galarza CMA on 02/14/25 15:19 UA Blood 0 Josue/uL Last Edit by Swetha Galarza CMA on 02/14/25 15:19 UA Specific [place] 1.025 Last Edit by Swetha Galarza CMA on 02/14/25 15 :19 UA Ketone Negative Last Edit by Swetha Galarza CMA on 02/14/25 15:19 UA Bilirubin 1 mg/dL Last Edit by Swetha Galarza CMA on 02/14/25 15:19 UA Glucose 0 mg/dL Last Edit by Swetha Galarza CMA on 02/14/25 15:19 Assessment & Plan Assessment & Plan (1) Sternum pain: Code(s): R07.89 - Other chest pain Plan: - Conduct a sternum x-ray to rule out fractures or other injuries due to trauma. - Administer Toradol injection for pain management, with instructions to avoid other NSAIDs for six hours. - Recommend the use of Aleve (naproxen) for additional pain relief if needed, pls wait 6 hours after the Torodol injection. - The patient uses trazodone nightly and was advised to skip it while on antibiotics due to potential interaction. Patient was informed and verbally consented to the use of an ambient scribe for clinic note documentation during this visit. (2) Symptomatic urinary tract infection: Code(s): N39.0 - Urinary tract infection, site not specified Plan: - UA + leuks, neg nitrites, neg blood, will treat based on symptoms. Will send culture and call pt if negative to stop abx. - Initiate antibiotic therapy for suspected urinary tract infection, with a follow-up culture to confirm diagnosis. - Advise the patient to discontinue trazodone while on antibiotics due to potential drug interaction. Could not RX cefuroxime due to severe interaction with one of her medications. Orders: Orders AMB Ketorolac Injection Today R07.89 - Other chest pain XR sternum min 2V Today R07.89 - Other chest pain AMB Urinalysis Automated Today Z13.9 - Encounter for screening, unspecified Medications: New ciprofloxacin HCl 250 mg PO Q12H 6 tabs 0RF ketorolac 30 mg IM ONCE 1 mL 0RF pain R07.89 - Other chest pain Coding Level of Care Code Est Pt Level 4 (88126) Diagnoses Sternum pain R07.89 Symptomatic urinary tract infection N39.0
--- OUTSIDE RECORDS SUMMARY | 2025-02-14 16:49 | XMS_ITS | Clinical Summary ---
Author Organization [facility] Address [address] [place] [address] Care Team Providers Care Ship Runner Name Role Phone Chuck Davila MD Primary [...] Last Done Comments Breast Cancer Screening 1965 Colorectal Cancer Screening: Colonoscopy 1963 DTaP,Tdap,and Td Vaccines (1 - Tdap) 1982 Cervical Cancer Screening: P ap Smear 1984 Pneumococcal Vaccine: 50+ Ye ars (1 of 1 - PCV) 2013 Zoster Vaccines (1 of 2) 2013 HIV Screening 03/29/2022 Hepatitis C Screening 03/29/2022 [...] age to complete this topic Care Teams Ship Runner Relationship Specialty Start Date End Date Chuck Davila MD [address] [place] [address] Dr [address] ANJU Huerta PCP - General 04/07/23
--- OUTSIDE RECORDS SUMMARY | 2025-02-14 16:49 | XMS_ITS | Clinical Summary ---
Author Organization [facility] Address [address] [place] [address] Care Team Providers Care Translator Deaf Name Role Phone Chuck Davila MD Primary Care Provider +1- [phone] Allergies Active Allergy Reactions Criticality Noted Date [...] age to complete this topic Care Teams Translator Deaf Relationship Specialty Start Date End Date Chuck Davila MD [address] [place] [address] [place] [address] PCP - General Internal Medicine 04/07/23
--- OUTSIDE RECORDS SUMMARY | 2025-02-14 16:49 | XMS_ITS | Encounter Summary ---
Author Organization [employer] Address [address] [place] [address] [address] [place] [address] Care Team Providers Care Flatbed Owner Operator Name Role Phone Unavailable Primary Care Provider Unavailabl e Encounter Details Date Type Department Care Team (Latest Contact Info) Description 07/09/2018 Abstract [facility] CONVERSIONS Dental, Provider, DDS Social History Tobacco [...]
--- OUTSIDE RECORDS SUMMARY | 2025-02-14 16:49 | XMS_ITS | Clinical Summary ---
Author Organization [employer] Address [address] [place] [address] [address] [place] [address] Care Team Providers Care Wild Oyster Harvester Name Role Phone Unavailable Primary Care Provider [...]
== END 2025-02-14 15:53 | disposition home or self-care (01) ==
PROVIDERS: PCP Internal Medicine; Visit Provider Physician Assistant
DX: R07.89 Other chest pain (principal); N39.0 Urinary tract infection, site not specified; Z13.9 Encounter for screening, unspecified

== ENCOUNTER → 2025-02-14 15:43 | Outpatient (BNV) | payer OTHER, SELFPAY | PROVIDERS: PCP Internal Medicine; Visit Provider Radiology Diagnostic Radiology | DX: R07.89 Other chest pain (principal) | CPT/HCPCS: 71120 ==

== ENCOUNTER 2025-03-12 13:09 | Outpatient (AMB) | payer OTHER, SELFPAY ==
--- NOTE | 2025-03-12 13:19 | MHC.OFFVIS ---
Intake Visit Reasons: 1y/PVR Intake Note: Patient is present for 1Y/PVR Urology Medication:NONE Antibiotic Allergy:SULFA Blood Thinner:NONE TODAY'S PVR:0ML'S Tube Operator Required: Yes Tube Operator Services: Tube Operator Present Tube Operator Name: Eunice Allergies Sulfa (Sulfonamide Antibiotics) Allergy (Severe, Verified 03/12/25 14:19) Itching codeine (CODEINE) Allergy (Intermediate, Verified 03/12/25 14:19) ITCHING hydroxychloroquine (From PLAQUENIL) Allergy (Intermediate, Verified 03/12/25 14:19) VOMITING morphine (MORPHINE) Allergy (Intermediate, Verified 03/12/25 14:19) ITCHING Estrogens Allergy (Mild, Verified 03/12/25 14:19) Unknown levothyroxine sodium Allergy (Unknown, Verified 03/12/25 14:19) rash,throat closes prednisone Allergy (Unknown, Verified 03/12/25 14:19) Unknown Corticosteroids (Glucocorticoids) (CORTICOSTEROIDS (GLUCOCORTICOIDS)) Adverse Reaction (Severe, Verified 03/12/25 14:19) DIFFICULTY BREATHING escitalopram (From Lexapro) Adverse Reaction (Severe, Verified 03/12/25 14:19) seizure meloxicam Adverse Reaction (Severe, Verified 03/12/25 14:19) Gastrointestinal Upset tadalafil (From Cialis) Adverse Reaction (Intermediate, Verified 03/12/25 14:19) Nausea and Vomiting acetaminophen (Percocet) Adverse Reaction (Unknown, Verified 03/12/25 14:19) Unknown duloxetine Adverse Reaction (Unknown, Verified 03/12/25 14:19) Unknown fluconazole Adverse Reaction (Unknown, Verified 03/12/25 14:19) Itch, pain, Medication List - Last Reconciled 03/12/25 by TRINY Jiang albuterol sulfate 90 mcg/actuation (Ventolin HFA) 2 puffs inhalation Q6H PRN bisacodyl 10 mg (2 x 5 mg) PO BEDTIME bupropion HCl XL 150 mg PO QAM clonazepam 1 mg PO TID dexlansoprazole (Dexilant) 60 mg PO DAILY 30 days diclofenac sodium 1% 4 grams topical QID ferrous sulfate 324 mg PO DAILY gabapentin 300 mg PO TID lamotrigine 50 mg (2 x 25 mg) PO BEDTIME lidocaine 5% 1 patch topical DAILY 30 days nystatin 1 mL PO DAILY onabotulinumtoxinA (Botox) 200 units IM [id number] 90 days ondansetron HCl 8 mg PO BEDTIME PRN simethicone (Gas Relief (simethicone)) 125 mg PO BID-QID PRN solifenacin (Vesicare) 5 mg PO DAILY 30 days Synthroid (levothyroxine) 50 mcg PO DAILY 90 days NS topiramate XR 50 mg PO BID 30 days trazodone 100 mg PO BEDTIME HPI Comments Details: Zara is a very pleasant 59-year-old Turkmen-speaking female patient of Dr. Davila who was accompanied by her daughter during [facility] video telehealth visit. She has a past medical history of hypothyroidism, anxiety, bipolar, depression, constipation, ductal carcinoma in Situ of left breast, fibromyalgia, insomnia, leukopenia, lupus, osteoporosis, polyarthralgia, PTSD, Raynaud's, rheumatoid arthritis, and vitamin-D deficiency. In discussion with the patient today she reports over the last 1-2 months she has been experiencing ongoing lower urinary tract symptoms. She reports she was unsure if it was a cystitis flare-up verses a urinary tract infection. She discusses having seeked urgent care services here through [facility] at which time she was given ciprofloxacin however shortly after completion of antibiotic therapy lower urinary tract symptoms resurfaced. She is enquiring cystoscopy with hydrodistention as she feels this was helpful in the past. In office urinalysis results reviewed with the patient today trace leukocytes negative nitrates. PVR 0 mL. Patient with a longstanding history of interstitial cystitis and has undergone multiple treatment options to include cystoscopy hydrodistention with Dr. Keita 03/23 as well as in office bladder instillations. Previous workup has included a bladder ultrasound 07/21 noting posterior bladder wall trabeculations possibly related to history of cystitis or hypertrophy. She has trialed low-dose Cialis however experienced reaction of swelling and itching. She discusses her frustration regarding her health and ongoing chronic pain she continues to experience. Discussed and stressed the importance of avoiding bladder triggers/irritants. She otherwise offers no other issues or concerns at this time. [facility] Medical History Headache Osteopenia SOB (shortness of breath) Bipolar depression Cerumen impaction Otitis media Arthralgia Nausea Recurrent cystitis Screening for tuberculosis History of breast cancer in female Pharyngitis Oral pharyngeal candidiasis Bipolar 1 disorder Chronic idiopathic constipation Depression Chronic pruritus Urticaria Vitamin D deficiency Polyarthralgia Small bowel motility disorder Dry mouth and eyes Seborrhea capitis in adult Bilateral sciatica Urinary frequency Abdominal pannus Positive sm/CLAIMS SERVICE REPRESENTATIVE antibody Family history of polyps in the colon Fracture of neck of left humerus Humeral head fracture Chronic gastritis Insomnia Hypothyroidism Seropositive rheumatoid arthritis Leukopenia Gingivitis History of breast cancer Estrogen receptor positive status [ER+] Ductal carcinoma in situ (DCIS) of left breast Autoimmune disorder PTSD (post-traumatic stress disorder) COVID-19 Bilateral knee pain Fibromyalgia Schatzki's ring Rheumatoid arthritis Small bowel motility disorder Osteoporosis Raynaud's disease without gangrene Anxiety Primary insomnia Constipation Acquired hypothyroidism Systemic lupus erythematosus Left temporomandibular joint disorder, unspecified Surgical History Hx of abdominoplasty History of esophagogastroduodenoscopy (EGD) Hx of colonoscopy History of bilateral mastectomy History of total abdominal hysterectomy and bilateral salpingo-oophorectomy History of cholecystectomy History of tubal ligation History of section Family History Father Prostate cancer Hypertension Mother Breast cancer Hypertension Asthma Maternal Aunt Breast cancer Maternal Grandmother Colon cancer Maternal Aunt Breast cancer Sister Bone cancer Social History Household Members: Children Household Members Other:: 2 daughters and 3 dogs Housing: House Do you presently have visiting nurse or other home services: No Alcohol intake: never Comment: 5 min safety checks Patient Tobacco Use Status: Never used Tobacco Tobacco use type: Cigarette e-Cigarette/Vaping Use: Never Used Second Hand Smoke Exposure: No Advance Directives Date on File: 08/12/20 service: No Current occupational status: disabled Current occupational exposures/hazards: No Sexual orientation: Straight/Heterosexual Gender identity: Female Cognitive needs: Yes (cane) Hearing needs: No Vision needs: Yes (Glasses) Female Reproductive History Menstrual Age of Menarche: 10 Review of Systems Const Reports as per HPI Eyes Reports no additional complaints ENT Reports no additional complaints Card Reports as per HPI Resp Reports no additional complaints GI Reports as per [facility] Reports as per [facility] Musc Reports as per [facility] Skin/Breast Reports as per [facility] Neuro Reports as per [facility] Psych Reports as per [facility] Endo Reports as per HPI Aller/Immun Reports as per [facility] Physical Exam Const General: cooperative, healthy appearing, comfortable, no acute distress, well developed, alert and awake Orientation/consciousness: patient oriented x3 Limitations: language barrier HEENT Head: Yes normal to inspection, Yes normocephalic and Yes atraumatic Ears: hearing grossly normal bilaterally Eyes General: appearance normal, both eyes and all related structures Neck Neck: Yes normal visual inspection and Yes trachea midline Chest Chest palpation & inspection: normal inspection of the chest Resp Effort & Inspection: normal respiratory effort and able to speak in complete sentences Cardio Rate: regular rate GI Inspection: Yes normal to inspection General: Yes no CVA tenderness Back/Spine/Pelvis Back: no CVA tenderness Skin General skin exam: no rashes or lesions noted Neuro General: patient oriented x3 Extrem General: Yes normal to inspection Psych Appearance: grossly normal and well kempt Mental Status: mental status grossly normal Speech and movement: Normal speech and movement present and Clear speech present Affect: normal affect Attitude: cooperative Thought process: Normal thought process present Thought content: Normal thought content present Insight: Fair insight present (Psych) Judgement: Fair judgement present (Psych) Office Procedures Post Void Residual Post Residual Void Post Void Residual (PVR): 0 [id number] Void Residual by ultrasound Results AMB Urinalysis, Automated UA Leukoctes 15 Kristie/uL Last Edit by TOM Tinsley on 03/12/25 15:43 UA Nitrite Negative Last Edit by TOM Tinsley on 03/12/25 15:43 UA Urobilinogen 0.2 mg/dL Last Edit by TOM Tinsley on 03/12/25 15:43 UA Protein 15 mg/dL Last Edit by TOM Tinsley on 03/12/25 15:43 UA pH 6.0 Last Edit by TOM Tinsley on 03/12/25 15:43 UA Blood 0 Josue/uL Last Edit by TOM Tinsley on 03/12/25 15:43 UA Specific [place] 1.025 Last Edit by TOM Tinsley on 03/12/25 15:43 UA Ketone Negative Last Edit by TOM Tinsley on 03/12/25 15:43 UA Bilirubin 0 mg/dL Last Edit by TOM Tinsley on 03/12/25 15:43 UA Glucose 0 mg/dL Last Edit by TOM Tinsley on 03/12/25 15:43 Results Reviewed Results Reviewed: Laboratory Last Values Urine pH (Auto) 6.0 03/12/25 15:43 Specific [place] (Auto) 1.025 03/12/25 15:43 Urine Protein (Auto) 15 mg/dL 03/12/25 15:43 Glucose (UA)(Auto) 0 mg/dL 03/12/25 15:43 Urine Ketones (Auto) Negative 03/12/25 15:43 Urine Blood (Auto) 0 Josue/uL 03/12/25 15:43 Urine Nitrite (Auto) Negative 03/12/25 15:43 Urine Bilirubin (Auto) 0 mg/dL 03/12/25 15:43 Urine Urobilinogen (Auto) 0.2 mg/dL 03/12/25 15:43 Leukocyte Esterase (Auto) 15 Kristie/uL 03/12/25 15:43 Assessment & Plan Assessment & Plan (1) Lower urinary tract symptoms: Code(s): R39.9 - Unspecified symptoms and signs involving the genitourinary system Category: Medical Plan: Risks, benefits and alternatives to therapy were discussed. These include but are not limited to infection, bleeding, damage to local organs and tissues, need for further interventions. ? Anesthetic risks regarding cardiac arrhythmia, blood clots, and potential mortality were discussed. The patient understands the typical recovery time and the outpatient nature of the procedure. After consideration of these risks the patient gives full informed consent and they wish to move ahead with the procedure. (2) Interstitial cystitis: Code(s): N30.10 - Interstitial cystitis (chronic) without hematuria Category: Medical (3) Sensation of pressure in bladder area: Code(s): R39.89 - Other symptoms and signs involving the genitourinary system Category: Medical Plan In office urinalysis results reviewed with the patient today; as noted above; will send for urine culture. Will obtain retroperitoneal ultrasound for further assessment evaluation. We did discuss lower urinary tract symptoms in relation to interstitial cystitis. We did discussed further treatment options and risks and benefits of these treatment options. We discussed bladder triggers and irritants. Start VESIcare as discussed and prescribed. Will arrange for cystoscopy hydrodistention. Follow-up per doctor's orders; or sooner with any issues, concerns, and or questions. Orders: Orders US retroperitoneal comp Today R39.9 - Unspecified symptoms and signs involving the genitourinary system AMB Urinalysis Automated Today Z13.9 - Encounter for screening, unspecified Urine Culture Today N39.0 - Urinary tract infection, site not specified Medications: New solifenacin (Vesicare) 5 mg PO DAILY 30 tabs 3RF 30 days Discontinued ciprofloxacin HCl Discontinued Reason: Patient Completed Course 250 mg PO Q12H 6 tabs 0RF Patient Instructions: The patient had an opportunity to ask questions regarding the treatment plan. All questions were answered. Physical exam, labs, and imaging were discussed and reviewed in detail. As well as risks, benefits, and discussion of treatment choices. No major barriers to understanding were identified. The patient expressed understanding and agreement with the above treatment plan. The patient was made aware they should contact our office by phone for worsening of their current condition, the appearance of new symptoms, or with any questions or concerns. Compliance is encouraged with any medications and follow up testing that is ordered. It is a privilege to be allowed the opportunity to participate in? your urological care.? Again, if you have any questions or concerns If you have any questions or concerns please do not hesitate to contact me. The office is [phone]. This note is constructed using voice recognition software. While every effort has been made to ensure accuracy fruit harvester errors may have been included. Yours sincerely, TRINY Jiang Coding Level of Care Code Est Pt Level 4 (72929) Complex EM visit Add On G2211 Diagnoses Lower urinary tract symptoms R39.9 Interstitial cystitis N30.10 Sensation of pressure in bladder area R39.89 CPT Codes Post Residual Void - PVR CPT Code: 67593-[id number] Void Residual by ultrasound ([id number]) Time Spent (min) 40
--- OUTSIDE RECORDS SUMMARY | 2025-03-12 15:56 | XMS_ITS | Encounter Summary ---
Author Organization [employer] Address [address] [place] [address] [address] [place] [address] Care Team Providers Care Financial Accounting Analyst Name Role Phone Unavailable Primary Care Provider Unavailabl e Encounter Details Date Type Department Care Team (Latest Contact Info) Description 07/09/[address] [facility] CONVERSIONS Dental, Provider, DDS Social History [...]
--- OUTSIDE RECORDS SUMMARY | 2025-03-12 15:56 | XMS_ITS | Clinical Summary ---
Author Organization [facility] Address [address] [place] [address] Care Team Providers Care Dental Scheduler Name Role Phone Chuck Davila MD Primary [...] Depression Screening 05/01/2024 COVID-19 Vaccine (1 - 2024-2 6 season) 2024 Influenza Vaccine (#1) 2024 RSV [...] age to complete this topic Care Teams Dental Scheduler Relationship Specialty Start Date End Date Chuck Davila MD [address] [place] [address] Dr [address] ANJU Huerta PCP - General 04/07/23
--- OUTSIDE RECORDS SUMMARY | 2025-03-12 15:56 | XMS_ITS | Clinical Summary ---
Author Organization [email or web address] Address [address] [place] [address] [address] [place] [address] Care Team Providers Care Transcriber Name Role Phone Unavailable Primary Care Provider [...]
--- OUTSIDE RECORDS SUMMARY | 2025-03-12 15:56 | XMS_ITS | Clinical Summary ---
Author Organization [facility] Address [address] [place] [address] Care Team Providers Care Building Architect Name Role Phone Chuck Davila MD Primary Care Provider +1- [phone] Allergies Active Allergy Reactions Criticality Noted Date [...] age to complete this topic Care Teams Building Architect Relationship Specialty Start Date End Date hCuck Davila MD [address] [place] [address] [place] [address] PCP - General Internal Medicine 04/07/23
== END 2025-03-12 14:41 | disposition home or self-care (01) ==
LOC: HO.HUSH 13:10
PROVIDERS: PCP Internal Medicine; Visit Provider Nurse Practitioner Family
DX: R39.9 Unspecified symptoms and signs involving the genitourinary system (principal); N30.10 Interstitial cystitis (chronic) without hematuria; R39.89 Other symptoms and signs involving the genitourinary system; Z13.9 Encounter for screening, unspecified
CPT/HCPCS: 99214

== ENCOUNTER 2025-03-12 13:09 | Outpatient (REF) | payer OTHER, SELFPAY | END 2025-03-12 13:10 | disposition home or self-care (01) | LOC: HO.LAB 13:09 | PROVIDERS: PCP Internal Medicine; Visit Provider Nurse Practitioner Family | DX: N30.10 Interstitial cystitis (chronic) without hematuria (principal); R39.89 Other symptoms and signs involving the genitourinary system; Z13.89 Encounter for screening for other disorder | CPT/HCPCS: 51798; 81003; 87086; 99212 ==

== ENCOUNTER 2025-03-13 10:56 | Outpatient (REF) | payer OTHER, SELFPAY ==
[2025-03-13 11:07] LABS: MANUAL DIFF FLAG NO
[2025-03-13 11:34] LABS: Appearance Urine Clear; Glucose Urine UA Negative (Negative); PH 5.5 (5.0-9.0); Specific Gravity - Urine 1.020 (1.005-1.025); UMIC TRIGGER UACC YES
[2025-03-13 11:38] LABS: Hematocrit 35.8 % (37.0-47.0); Hemoglobin 11.1 g/dl (12.0-16.0); Imm Gran Abs Auto 0.01 X10*3/uL (0.00-0.03); Imm Gran Pct Auto 0.2 % (0.0-0.4); Lymphocytes Absolute Auto 0.9 X10*3/uL (1.2-4.9); Mean Corpuscular HGB Conc 31.0 g/dl (31.0-35.0); Mean Corpuscular Hemoglobin 26.7 pg (27.0-33.0); Mean Corpuscular Volume 86.3 fL (80.0-98.0); NRBC Abs Auto 0.000 X10*3/uL (0.0-0.012); NRBC Pct Auto 0.0 /100WBC (0.0-0.2); Platelet Count 212 X10*3/uL (160-400); Red Blood Count 4.15 X10*6/uL (4.20-5.50); White Blood Count 4.5 X10*3/uL (4.8-10.8)
[2025-03-13 12:28] LABS: Alanine Aminotransferase 20 U/L (0-31); Albumin Level 4.3 g/dL (3.5-5.0); Alkaline Phosphatase 57 U/L (39-117); Anion Gap 11 (12-20); Aspartate Amino Transferase 24 U/L (5-31); Blood Urea Nitrogen 16 mg/dL (9-16); Calcium 8.7 mg/dL (8.4-10.2); Carbon Dioxide 28 mmol/L (22-29); Chloride 107 mmol/L (96-108); Cholesterol 203 mg/dL (<200); Estimated Glomerular Filt Rate > 60; HDL Cholesterol 76 mg/dL (>40); Iron 51 mcg/dL (30-160); Percent Iron Saturation 15 % (15-50); Potassium 3.7 mmol/L (3.3-5.1); Sodium 142 mmol/L (135-145); Total Iron Binding Capacity 331 mcg/dL (228-428); Total Protein 6.9 g/dL (6.5-8.0); Triglycerides 52 mg/dL (<150); Unsaturated Iron Binding 280 ug/dL
[2025-03-13 12:58] LABS: Folate 9.5 ng/mL (> or = 4.0); Vitamin B12 326 pg/mL (200-900)
--- OUTSIDE RECORDS SUMMARY | 2025-03-13 13:39 | XMS_ITS | Clinical Summary ---
Author Organization [employer] Address [address] [place] [address] [address] [place] [address] Care Team Providers Care Sugar Drier Name Role Phone Unavailable Primary Care Provider [...]
--- OUTSIDE RECORDS SUMMARY | 2025-03-13 13:39 | XMS_ITS | Encounter Summary ---
Author Organization [email or web address] Address [address] [facility] [address] [place] [address] Care Team Providers Care Team Psychologist Name Role Phone Unavailable Primary Care Provider Unavailabl e Encounter Details Date Type Department Care Team (Latest Contact Info) Description 07/09/2018 Abstract [facility] CONVERSIONS Dental, Provider, DDS Social History [...]
--- OUTSIDE RECORDS SUMMARY | 2025-03-13 13:39 | XMS_ITS | Clinical Summary ---
Author Organization [facility] Address [address] [place] [address] Care Team Providers Care Employee Benefits Director Name Role Phone Chuck Davila MD Primary Care Provider Surgical History Surgery Date Site/Laterality Comments SECTION PROCEDURE: SECTION TUBAL LIGATION PROCEDURE:TUBAL LIGATION MASTECTOMY PROCEDURE:MASTECTOMY COLONOSCOPY PROCEDURE:COLONOSCOPY HYSTERECTOMY PROCEDURE:HYSTERECTOMY Medical History Medical History Date Comments Breast cancer (CMS/HCC V24, CMS/[facility] V28) DX:Breast cancer (HCC) Disease of [...] age to complete this topic Care Teams Employee Benefits Director Relationship Specialty Start Date End Date Chuck Davila MD [address] [place] [address] Dr [address] ANJU Huerta PCP - General 04/07/23
--- OUTSIDE RECORDS SUMMARY | 2025-03-13 13:39 | XMS_ITS | Clinical Summary ---
Author Organization [facility] Address [address] [place] [address] Care Team Providers Care Rail Gang Supervisor Name Role Phone Chuck Davila MD Primary Care Provider +1- [phone] Allergies Active Allergy Reactions Criticality Noted Date [...] Active clonazePAM (KlonoPIN) 1 MG tablet TOME RTUDY TABLETA QING VECES AL D A CUANDO [...] age to complete this topic Care Teams Rail Gang Supervisor Relationship Specialty Start Date End Date Chuck Davila MD [address] [place] [address] [place] [address] PCP - General Internal Medicine 04/07/23
== END 2025-03-13 10:57 | disposition home or self-care (01) ==
LOC: HO.LAB 10:56
PROVIDERS: PCP Internal Medicine
DX: E53.8 Deficiency of other specified B group vitamins (principal); R30.0 Dysuria; E78.00 Pure hypercholesterolemia, unspecified; D50.9 Iron deficiency anemia, unspecified; D64.9 Anemia, unspecified
CPT/HCPCS: 36415; 80053; 80061; 81001; 82607; 82746; 83540; 84443; 85025

== ENCOUNTER → 2025-03-19 11:23 | Outpatient (BNVA) | payer OTHER, SELFPAY | PROVIDERS: PCP Internal Medicine; Visit Provider Nurse Practitioner Family | DX: N30.10 Interstitial cystitis (chronic) without hematuria (principal); R39.89 Other symptoms and signs involving the genitourinary system | CPT/HCPCS: 51700; 51701; J0665; J1643; J2003; J2919 ==

== ENCOUNTER → 2025-03-20 11:25 | Outpatient (BNVA) | payer OTHER, SELFPAY | PROVIDERS: PCP Internal Medicine; Visit Provider Nurse Practitioner Family | DX: N30.10 Interstitial cystitis (chronic) without hematuria (principal) | CPT/HCPCS: 51700; 51701; J0665; J1643; J2003; J2919 ==

== ENCOUNTER 2025-03-25 08:26 | Day surgery (SDC) | payer OTHER, SELFPAY ==
[2025-03-21 15:05] VITALS: BMI 21.5
--- NOTE | 2025-03-24 11:30 | HO.ANESPROP2 ---
Documented by User: Sanjana Salazar NP 03/25/25 09:00 HPI - Anesthesia Eval Consult details Narrative: 59 yr old female for ?Cystoscopy Hydrodistention of Bladder Cardiomopathy: follows [facility] cardiology, last visit 12/2024 stated Given wall motion abnormality on echo and her ongoing symptoms, we will proceed with a coronary CTA to look for a coronary artery disease and the extent of ischemic changes . On 03/25/25 Dr. Mishra stated may proceed if no acute cardiac symptoms . Replied to [employer] from . [facility] Active Problems Active Problems: All Active Problems Symptomatic urinary tract infection (Acute) Sternum pain (Acute) Chronic migraine without aura without status migrainosus, not intractable (Acute) Headache (Acute) Osteopenia (Acute) Cardiomyopathy (Acute) Chest pain (Acute) Vertigo (Acute) LBBB (left bundle branch block) (Acute) Heart palpitations (Acute) Sensation of pressure in bladder area (Acute) Bipolar 2 disorder, major depressive episode (Acute) Migraine (Acute) Suicidal ideation (Acute) Prolonged Q-T interval on ECG (Acute) Dizziness (Acute) Exertional dyspnea (Acute) Chronic pruritus (Acute) Polyarthralgia (Acute) Dysphagia (Acute) Osteoarthritis of lumbar spine (Acute) Osteoarthritis of knees, bilateral (Acute) Interstitial cystitis (Acute) Bilateral carpal tunnel syndrome (Acute) Dystonia (Acute) Elevated BP without diagnosis of hypertension (Acute) Anemia (Acute) Tubular adenoma of colon (Acute) GERD (gastroesophageal reflux disease) (Acute) Constipation (Acute) PTSD (post-traumatic stress disorder) (Acute) Fibromyalgia (Acute) Osteoporosis (Acute) Raynaud's disease without gangrene (Acute) Anxiety (Acute) Primary insomnia (Acute) Systemic lupus erythematosus (Acute) Left temporomandibular joint disorder, unspecified (Acute) Past Medical History Medical History Headache Osteopenia SOB (shortness of breath) Bipolar depression Cerumen impaction Otitis media Arthralgia Nausea Recurrent cystitis Screening for tuberculosis History of breast cancer in female Pharyngitis Oral pharyngeal candidiasis Bipolar 1 disorder Chronic idiopathic constipation Depression Chronic pruritus Urticaria Vitamin D deficiency Polyarthralgia Small bowel motility disorder Dry mouth and eyes Seborrhea capitis in adult Bilateral sciatica Urinary frequency Abdominal pannus Positive sm/[employer] antibody Family history of polyps in the colon Fracture of neck of left humerus Humeral head fracture Chronic gastritis Insomnia Hypothyroidism Seropositive rheumatoid arthritis Leukopenia Gingivitis History of breast cancer Estrogen receptor positive status [ER+] Ductal carcinoma in situ (DCIS) of left breast Autoimmune disorder PTSD (post-traumatic stress disorder) COVID-19 Bilateral knee pain Fibromyalgia Schatzki's ring Rheumatoid arthritis Small bowel motility disorder Osteoporosis Raynaud's disease without gangrene Anxiety Primary insomnia Constipation Acquired hypothyroidism Systemic lupus erythematosus Left temporomandibular joint disorder, unspecified Family History Family History Father Prostate cancer Hypertension Mother Breast cancer Hypertension Asthma Maternal Aunt Breast cancer Maternal Grandmother Colon cancer Maternal Aunt Breast cancer Sister Bone cancer Family history of problems with anesthesia: No Surgical History Surgical History Hx of abdominoplasty History of esophagogastroduodenoscopy (EGD) Hx of colonoscopy History of bilateral mastectomy History of total abdominal hysterectomy and bilateral salpingo-oophorectomy History of cholecystectomy History of tubal ligation History of section History of Problems with Anesthesia: No Social History Social History Household Members: Children Household Members Other:: 2 daughters and 3 dogs Housing: House Do you presently have visiting nurse or other home services: No Alcohol intake: never Comment: 5 min safety checks Patient Tobacco Use Status: Never used Tobacco Tobacco use type: Cigarette e-Cigarette/Vaping Use: Never Used Second Hand Smoke Exposure: No Use of substances other than those prescribed or required for medical reasons: No Are you DNR?: No Advance Directives: No Advance Directives Information Provided: Yes Advance Directives Date on File: 08/12/20 Patient : No : No service: No Current occupational status: disabled Current occupational exposures/hazards: No Sexual orientation: Straight/Heterosexual Gender identity: Female Cognitive needs: Yes (cane) Hearing needs: No Vision needs: Yes (Glasses) Meds Allergies Allergy/AdvReac Type Severity Reaction Status Date / Time Sulfa (Sulfonamide Allergy Severe Itching Verified 03/12/25 14:19 Antibiotics) codeine (CODEINE) Allergy Intermediate ITCHING Verified 03/12/25 14:19 hydroxychloroquine (From Allergy Intermediate VOMITING Verified 03/12/25 14:19 PLAQUENIL) morphine (MORPHINE) Allergy Intermediate ITCHING Verified 03/12/25 14:19 Estrogens Allergy Mild Unknown Verified 03/12/25 14:19 levothyroxine sodium Allergy Unknown rash,throat Verified 03/12/25 14:19 closes prednisone Allergy Unknown Unknown Verified 03/12/25 14:19 Corticosteroids AdvReac Severe DIFFICULTY Verified 03/12/25 14:19 (Glucocorticoids) BREATHING (CORTICOSTEROIDS (GLUCOCORTICOIDS)) escitalopram (From Lexapro) AdvReac Severe seizure Verified 03/12/25 14:19 meloxicam AdvReac Severe Gastrointestinal Verified 03/12/25 14:19 Upset tadalafil (From Cialis) AdvReac Intermediate Nausea and Verified 03/12/25 14:19 Vomiting acetaminophen (Percocet) AdvReac Unknown Unknown Verified 03/12/25 14:19 duloxetine AdvReac Unknown Unknown Verified 03/12/25 14:19 fluconazole AdvReac Unknown Itch, pain, Verified 03/12/25 14:19 Home Medications ?Medication ?Instructions ?Recorded ?Confirmed ?Last Taken ?Type bupropion HCl 150 mg 24 hr tablet, 150 mg PO QAM 08/13/24 03/21/25 Unknown History extended release gabapentin 300 mg capsule 300 mg PO TID 08/13/24 03/21/25 Unknown History ondansetron HCl 8 mg tablet 8 mg PO BEDTIME PRN nausea 08/13/24 03/21/25 Unknown History trazodone 100 mg tablet 100 mg PO BEDTIME 10/11/24 03/21/25 Unknown History clonazepam 1 mg tablet 1 mg PO TID Anxiety 01/15/25 03/21/25 Unknown History Exam Height,Weight and Vital Signs: Height 5 ft 1 in Weight 51.71 kg Pertinent Lab Results Pertinent Lab Results: Laboratory Tests 03/13/25 11:06 WBC 4.5 L RBC 4.15 L Hgb 11.1 L Hct 35.8 L Plt Count 212 Sodium 142 Potassium 3.7 BUN 16 Creatinine 0.60 Narrative Narrative: Cardiolite Stress Test 11/2024 Impression: 1. Myocardial perfusion imaging study shows fixed apical defect, either artifactual or related to left bundle branch block. No clear evidence of ischemia or infarction otherwise. 2. Gated LVEF is 48% during stress and 41% during rest. Correlate with echocardiogram. 3. Transient ischemic dilatation not present. EKG component of the test reported separately. EKG 12/2024 Normal sinus, rate 69 ECHO 09/2024 Conclusions: - The left ventricular systolic function is mildly decreased. The calculated ejection fraction is 44% by biplane method. - The inferoseptal wall, the basal inferior, and basal inferolateral segments are hypokinetic. - There is a small loculated pericardial effusion overlying the left ventricle. Assessment and Plan Final Anesthetic Review Family History of Problems with Anesthesia: No History of Problems with Anesthesia: No Documented by User: Ramu Hector MD 03/25/25 10:13 [facility] Past Medical History Medical History Headache Osteopenia SOB (shortness of breath) Bipolar depression Cerumen impaction Otitis media Arthralgia Nausea Recurrent cystitis Screening for tuberculosis History of breast cancer in female Pharyngitis Oral pharyngeal candidiasis Bipolar 1 disorder Chronic idiopathic constipation Depression Chronic pruritus Urticaria Vitamin D deficiency Polyarthralgia Small bowel motility disorder Dry mouth and eyes Seborrhea capitis in adult Bilateral sciatica Urinary frequency Abdominal pannus Positive sm/[employer] antibody Family history of polyps in the colon Fracture of neck of left humerus Humeral head fracture Chronic gastritis Insomnia Hypothyroidism Seropositive rheumatoid arthritis Leukopenia Gingivitis History of breast cancer Estrogen receptor positive status [ER+] Ductal carcinoma in situ (DCIS) of left breast Autoimmune disorder PTSD (post-traumatic stress disorder) COVID-19 Bilateral knee pain Fibromyalgia Schatzki's ring Rheumatoid arthritis Small bowel motility disorder Osteoporosis Raynaud's disease without gangrene Anxiety Primary insomnia Constipation Acquired hypothyroidism Systemic lupus erythematosus Left temporomandibular joint disorder, unspecified Functional capacity: independent ambulation Family History Family History Father Prostate cancer Hypertension Mother Breast cancer Hypertension Asthma Maternal Aunt Breast cancer Maternal Grandmother Colon cancer Maternal Aunt Breast cancer Sister Bone cancer Surgical History Surgical History Hx of abdominoplasty History of esophagogastroduodenoscopy (EGD) Hx of colonoscopy History of bilateral mastectomy History of total abdominal hysterectomy and bilateral salpingo-oophorectomy History of cholecystectomy History of tubal ligation History of section Social History Social History Household Members: Children Household Members Other:: 2 daughters and 3 dogs Housing: House Do you presently have visiting nurse or other home services: No Alcohol intake: never Comment: 5 min safety checks Patient Tobacco Use Status: Never used Tobacco Tobacco use type: Cigarette e-Cigarette/Vaping Use: Never Used Second Hand Smoke Exposure: No Use of substances other than those prescribed or required for medical reasons: No Are you DNR?: No Advance Directives: No Advance Directives Information Provided: Yes Advance Directives Date on File: 08/12/20 Patient : No : No service: No Current occupational status: disabled Current occupational exposures/hazards: No Sexual orientation: Straight/Heterosexual Gender identity: Female Cognitive needs: Yes (cane) Hearing needs: No Vision needs: Yes (Glasses) Meds Allergies Allergy/AdvReac Type Severity Reaction Status Date / Time Sulfa (Sulfonamide Allergy Severe Itching Verified 03/12/25 14:19 Antibiotics) codeine (CODEINE) Allergy Intermediate ITCHING Verified 03/12/25 14:19 hydroxychloroquine (From Allergy Intermediate VOMITING Verified 03/12/25 14:19 PLAQUENIL) morphine (MORPHINE) Allergy Intermediate ITCHING Verified 03/12/25 14:19 Estrogens Allergy Mild Unknown Verified 03/12/25 14:19 levothyroxine sodium Allergy Unknown rash,throat Verified 03/12/25 14:19 closes prednisone Allergy Unknown Unknown Verified 03/12/25 14:19 Corticosteroids AdvReac Severe DIFFICULTY Verified 03/12/25 14:19 (Glucocorticoids) BREATHING (CORTICOSTEROIDS (GLUCOCORTICOIDS)) escitalopram (From Lexapro) AdvReac Severe seizure Verified 03/12/25 14:19 meloxicam AdvReac Severe Gastrointestinal Verified 03/12/25 14:19 Upset tadalafil (From Cialis) AdvReac Intermediate Nausea and Verified 03/12/25 14:19 Vomiting acetaminophen (Percocet) AdvReac Unknown Unknown Verified 03/12/25 14:19 duloxetine AdvReac Unknown Unknown Verified 03/12/25 14:19 fluconazole AdvReac Unknown Itch, pain, Verified 03/12/25 14:19 Home Medications ?Medication ?Instructions ?Recorded ?Confirmed ?Last Taken ?Type bupropion HCl 150 mg 24 hr tablet, 150 mg PO QAM 08/13/24 03/21/25 Unknown History extended release gabapentin 300 mg capsule 300 mg PO TID 08/13/24 03/21/25 Unknown History ondansetron HCl 8 mg tablet 8 mg PO BEDTIME PRN nausea 08/13/24 03/21/25 Unknown History trazodone 100 mg tablet 100 mg PO BEDTIME 10/11/24 03/21/25 Unknown History clonazepam 1 mg tablet 1 mg PO TID Anxiety 01/15/25 03/21/25 Unknown History Exam Exam Date and Time: 03/25/25 Airway Loose/Missing/Broken Teeth: No Heart: normal Lungs: normal Other: normal Assessment and Plan Assessment Anesthesia Assessment: Anesthesia Plan Discussed Final Anesthetic Review NPO: Yes ASA Class: III Final Preanesthetic Review: No Changes in Pt Med Stat, Meds/Allgs Chart Reviewed, Consent Obtained/Reviewed and Anes Risks/Benef Reviewed Patient Risk: Intermediate Procedure Risk: Low Anesthetic Plan Anesthetic Plan: GA Disposition: Standard PACU
[2025-03-25] VITALS (19 sets, daily range): BP systolic 115–154; BP diastolic 44–100; PULSE 43–85; RESP 10–20; TEMP 36.5–37.2; O2SAT 93–100; BMI 21.1
[2025-03-25] MEDS: Lactated Ringers 1,000 ML 100 ML IVCONT (09:24)
--- NOTE | 2025-03-25 10:15 | W.PM.OPN ---
Operative Note Operative Note Date of Service: 03/25/25 Narrative: PREOP DIAGNOSIS: Interstitial cystitis, pelvic pain, microscopic hematuria POSTOP DIAGNOSIS: Interstitial cystitis, pelvic pain, microscopic hematuria, PROCEDURE: CYSTOSCOPY HYDRODISTENTION Anethesia: General Surgeon: Dr. Missy Mcfadden Details of procedure: The patient was brought into the operating room placed on the OR table in supine position. 2 g of Ancef IV. General anesthesia was administered. The patient was repositioned into lithotomy position, prepped and draped in the usual sterile fashion. Time-out was done per protocol. A 22 fr cystoscope was placed transurethrally into the bladder. Urine was drained from the bladder measuring 70 mL.The right and left ureteral orifices were visualized. The entire bladder was visualized. There were no suspicious bladder lesions seen. There were mild trabeculations noted. The bladder was filled with sterile water at 80 cm of water pressure under gravity. The bladder was distended for 3 minutes. Bladder capacity measured 500 mL. Revisualization of the bladder, noted moderate glomerulations. No Hunner ulcerations observed. The bladder was refilled with sterile water again at 80 cm of water pressure under gravity. The bladder was distended for 3 minutes. The fluid was drained from the bladder and measured 600 mL. The cystoscope was removed. 2% lidocaine urojet was passed transurethrally, Solution of (1% lidocaine plain, 30 mL, mixed with 30,000 units of heparin concentration 5000 units per mL total of 6 mL heparin) instilled transurethrally into the bladder. [place] IA placed. The patient was brought out of anesthesia and taken to recovery in stable condition. Complications: None EBL: minimal (<5 mL) Drains: none
--- NOTE | 2025-03-25 10:15 | MHC.SHP ---
Pre-Procedural Eval Section A - 24 Hr Update-Section A only Date of Service: 03/25/25 The patient is an INPATIENT: No The patient has been examined within 24 hours of the surgical procedure. The History & Physical has been completed within 30 days and I have reviewed it.: Yes Section B - Complete if H&P > 30 days Chief Complaint: Interstitial cystitis (chronic) without hematuria Allergies: Allergies Allergy/AdvReac Type Severity Reaction Status Date / Time Sulfa (Sulfonamide Allergy Severe Itching Verified 03/12/25 14:19 Antibiotics) codeine (CODEINE) Allergy Intermediate ITCHING Verified 03/12/25 14:19 hydroxychloroquine (From Allergy Intermediate VOMITING Verified 03/12/25 14:19 PLAQUENIL) morphine (MORPHINE) Allergy Intermediate ITCHING Verified 03/12/25 14:19 Estrogens Allergy Mild Unknown Verified 03/12/25 14:19 levothyroxine sodium Allergy Unknown rash,throat Verified 03/12/25 14:19 closes prednisone Allergy Unknown Unknown Verified 03/12/25 14:19 Corticosteroids AdvReac Severe DIFFICULTY Verified 03/12/25 14:19 (Glucocorticoids) BREATHING (CORTICOSTEROIDS (GLUCOCORTICOIDS)) escitalopram (From Lexapro) AdvReac Severe seizure Verified 03/12/25 14:19 meloxicam AdvReac Severe Gastrointestinal Verified 03/12/25 14:19 Upset tadalafil (From Cialis) AdvReac Intermediate Nausea and Verified 03/12/25 14:19 Vomiting acetaminophen (Percocet) AdvReac Unknown Unknown Verified 03/12/25 14:19 duloxetine AdvReac Unknown Unknown Verified 03/12/25 14:19 fluconazole AdvReac Unknown Itch, pain, Verified 03/12/25 14:19 Plan Diagnosis/Plan: Unchanged I have reviewed the history and physical and performed a pertinent physical examination on my patient. No changes have occurred unless specified. Cystoscopy Hydrodistension. Discussed risks to include but not limited to, blood in the urine, burning with urination, urgency. Time Spent With Patient Time: Total time managing care of this patient today ____ minutes.
== END 2025-03-25 14:21 | disposition home or self-care (01) ==
PROVIDERS: PCP Internal Medicine; Visit Provider Urology
PROC: 0T7B7ZZ Dilation of Bladder, Via Natural or Artificial Opening (ICD-10-PCS; CPT 52260; principal; 2025-03-25 10:40)
DX: N30.10 Interstitial cystitis (chronic) without hematuria (principal); R39.9 Unspecified symptoms and signs involving the genitourinary system; R39.89 Other symptoms and signs involving the genitourinary system; R31.29 Other microscopic hematuria; R10.20 Pelvic and perineal pain unspecified side; B95.2 Enterococcus as the cause of diseases classified elsewhere; N32.89 Other specified disorders of bladder; M79.7 Fibromyalgia; M32.9 Systemic lupus erythematosus, unspecified; M06.9 Rheumatoid arthritis, unspecified; M81.0 Age-related osteoporosis without current pathological fracture; D72.819 Decreased white blood cell count, unspecified; I73.00 Raynaud's syndrome without gangrene; E55.9 Vitamin D deficiency, unspecified; E03.9 Hypothyroidism, unspecified; F31.9 Bipolar disorder, unspecified; F41.9 Anxiety disorder, unspecified; Z85.3 Personal history of malignant neoplasm of breast; Z79.899 Other long term (current) drug therapy; Z88.2 Allergy status to sulfonamides; Z88.5 Allergy status to narcotic agent; Z88.8 Allergy status to other drugs, medicaments and biological substances; Z98.890 Other specified postprocedural states
CPT/HCPCS: 52260; 87086; 87088; 87186; J0690; J1100; J1171; J1644; J2003; J2405; J2704; J3010

== ENCOUNTER → 2025-03-25 08:26 | Outpatient (BNV) | payer OTHER, SELFPAY | PROVIDERS: PCP Internal Medicine; Visit Provider Urology | DX: N30.11 Interstitial cystitis (chronic) with hematuria (principal); R10.20 Pelvic and perineal pain unspecified side | CPT/HCPCS: 52260 ==

== ENCOUNTER 2025-03-31 15:18 | Outpatient (AMB) | payer OTHER, SELFPAY ==
--- NOTE | 2025-03-31 15:31 | MHC.PC.OV ---
Vital Signs 03/31/25 15:32 Height 5 ft 2 in Weight 115 lb 8 oz BMI 21.1 BP 122/78 Blood Pressure Location Lt brachial Position Sitting Pulse 69 Pulse Source Pulse Oximeter Pulse Oximetry (%) 97 Oxygen Delivery Method Room Air Intake Visit Reasons: 4mth f/u Insulation Technician Required: No Accompanied by: Self / Same As Patient Allergies Sulfa (Sulfonamide Antibiotics) Allergy (Severe, Verified 03/31/25 16:01) Itching codeine (CODEINE) Allergy (Intermediate, Verified 03/31/25 16:01) ITCHING hydroxychloroquine (From PLAQUENIL) Allergy (Intermediate, Verified 03/31/25 16:01) VOMITING morphine (MORPHINE) Allergy (Intermediate, Verified 03/31/25 16:01) ITCHING Estrogens Allergy (Mild, Verified 03/31/25 16:01) Unknown levothyroxine sodium Allergy (Unknown, Verified 03/31/25 16:01) rash,throat closes prednisone Allergy (Unknown, Verified 03/31/25 16:01) Unknown Corticosteroids (Glucocorticoids) (CORTICOSTEROIDS (GLUCOCORTICOIDS)) Adverse Reaction (Severe, Verified 03/31/25 16:01) DIFFICULTY BREATHING escitalopram (From Lexapro) Adverse Reaction (Severe, Verified 03/31/25 16:01) seizure meloxicam Adverse Reaction (Severe, Verified 03/31/25 16:01) Gastrointestinal Upset tadalafil (From Cialis) Adverse Reaction (Intermediate, Verified 03/31/25 16:01) Nausea and Vomiting acetaminophen (Percocet) Adverse Reaction (Unknown, Verified 03/31/25 16:01) Unknown duloxetine Adverse Reaction (Unknown, Verified 03/31/25 16:01) Unknown fluconazole Adverse Reaction (Unknown, Verified 03/31/25 16:01) Itch, pain, Medication List - Last Reconciled 03/31/25 by Chuck Davila MD albuterol sulfate 90 mcg/actuation (Ventolin HFA) 2 puffs inhalation Q6H PRN bisacodyl 10 mg (2 x 5 mg) PO BEDTIME bupropion HCl XL 150 mg PO QAM clonazepam 1 mg PO TID dexlansoprazole (Dexilant) 60 mg PO DAILY 30 days diclofenac sodium 1% 4 grams topical QID ferrous sulfate 324 mg PO DAILY gabapentin 300 mg PO TID lamotrigine 50 mg (2 x 25 mg) PO BEDTIME lidocaine 5% 1 patch topical DAILY 30 days nystatin 1 mL PO DAILY onabotulinumtoxinA (Botox) 200 units IM [id number] 90 days ondansetron HCl 8 mg PO BEDTIME PRN oxycodone 5 mg PO [id number] PRN phenazopyridine (Pyridium) 200 mg PO Q8H PRN simethicone (Gas Relief (simethicone)) 125 mg PO BID-QID PRN solifenacin (Vesicare) 5 mg PO DAILY 30 days Synthroid (levothyroxine) 50 mcg PO DAILY 90 days NS topiramate XR 50 mg PO BID 30 days trazodone 100 mg PO BEDTIME Tobacco use date assessed: 03/31/25 Dental Screening Dental Screen Date: 03/31/25 Did you have a dental visit in the last 12 months?: Yes Did you have a dental problem in the last 6 months where you did not have access to dental care?: No Was dental information given to patient?: Patient has dentist HPI 4mth f/u HPI Details - The patient is a 59 year old individual presenting for a follow-up visit. - The patient's weight is stable and blood pressure is well controlled. - The patient underwent a repeat surgery for cystitis approximately one week ago and reports some persistent pain in the bladder area, which is slowly improving. 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 - The patient also reports itchy, white patches on the scalp. - Recent lab work showed that cholesterol levels increased by approximately 10 points, with the LDL being slightly higher, while renal function and other tests were normal. - The patient has a known allergy to medications containing cortisone. She continues to complain of diffuse pain due to her fibromyalgia She currently still has occasional migraine headaches and frequent dizziness She denies any exertional chest pains but still has mild HARTMAN No nausea/vomiting, no abdominal pain No change in bowel habits noted She had some follow-up labs done a few weeks ago - to discuss her results [facility] Medical History (Updated 03/31/25 @ 16:09 by Chuck Davila MD) Seborrhea capitis in adult Headache Osteopenia SOB (shortness of breath) Bipolar depression Cerumen impaction Otitis media Arthralgia Nausea Recurrent cystitis Screening for tuberculosis History of breast cancer in female Pharyngitis Oral pharyngeal candidiasis Bipolar 1 disorder Chronic idiopathic constipation Depression Chronic pruritus Urticaria Vitamin D deficiency Polyarthralgia Small bowel motility disorder Dry mouth and eyes Bilateral sciatica Urinary frequency Abdominal pannus Positive sm/AIRCRAFT STRESS ANALYST antibody Family history of polyps in the colon Fracture of neck of left humerus Humeral head fracture Chronic gastritis Insomnia Hypothyroidism Seropositive rheumatoid arthritis Leukopenia Gingivitis History of breast cancer Estrogen receptor positive status [ER+] Ductal carcinoma in situ (DCIS) of left breast Autoimmune disorder PTSD (post-traumatic stress disorder) COVID-19 Bilateral knee pain Fibromyalgia Schatzki's ring Rheumatoid arthritis Small bowel motility disorder Osteoporosis Raynaud's disease without gangrene Anxiety Primary insomnia Constipation Acquired hypothyroidism Systemic lupus erythematosus Left temporomandibular joint disorder, unspecified Surgical History Hx of abdominoplasty History of esophagogastroduodenoscopy (EGD) Hx of colonoscopy History of bilateral mastectomy History of total abdominal hysterectomy and bilateral salpingo-oophorectomy History of cholecystectomy History of tubal ligation History of section Family History Father Prostate cancer Hypertension Mother Breast cancer Hypertension Asthma Maternal Aunt Breast cancer Maternal Grandmother Colon cancer Maternal Aunt Breast cancer Sister Bone cancer Social History Household Members: Children Household Members Other:: 2 daughters and 3 dogs Housing: House Do you presently have visiting nurse or other home services: No Alcohol intake: never Comment: 5 min safety checks Patient Tobacco Use Status: Never used Tobacco Tobacco use type: Cigarette e-Cigarette/Vaping Use: Never Used Second Hand Smoke Exposure: No Advance Directives Date on File: 08/12/20 service: No Current occupational status: disabled Current occupational exposures/hazards: No Sexual orientation: Straight/Heterosexual Gender identity: Female Cognitive needs: Yes (cane) Hearing needs: No Vision needs: Yes (Glasses) Female Reproductive History Menstrual Age of Menarche: 10 Questionnaire PHQ-9 Over the last 2 weeks, how often have you been bothered by any of the following problems? 1. Little interest or pleasure in doing things: not at all 2. Feeling down, depressed, or hopeless: nearly every day 3. Trouble falling or staying asleep, or sleeping too much: more than half the days 4. Feeling tired or having little energy: more than half the days 5. Poor appetite or overeating: more than half the days 6. Feeling bad about yourself - or that you are a failure or have let yourself or your family down: nearly every day 7. Trouble concentrating on things, such as reading the newspaper or watching television: nearly every day 8. Moving or speaking so slowly that other people could have noticed. Or the opposite - being so fidgety or restless that you have been moving around a lot more than usual: nearly every day 9. Thoughts that you would be better off or of hurting yourself in some way: nearly every day Total score: 21 Depression Screening Interpretation: Positive Depression Screening Follow-up: Existing condition and In treatment Depression Screening Done: Yes 62815 - PHQ-9 Billing: Yes Source: Developed by Drs. Som Barrera, Stephy Taylor, Michele Li and colleagues, with an educational coleman from [employer]. Thrive Questionnaire Date Thrive assessed: 03/31/25 I am a: Patient What is your living situation today?: I choose not to answer this question Within the past 12 months, did the food you bought not last and you didn't have the money to get more?: Sometimes True Within the past 12 months, did you worry whether your food would run out before you got money to buy more?: Sometimes True Do you have trouble paying for medicines?: No Do you have trouble getting transportation to medical appointments?: No Do you have trouble paying your heating and electricity bill?: I choose not to answer this question Do you have trouble taking care of your child, family member or friend?: I choose not to answer this question Do you have trouble with day-to-day activities such as bathing, preparing meals, shopping, managing finances, etc.?: Yes Are you currently unemployed and looking for a job?: No Are you interested in more education?: Yes Please select the resources that you would like help with: Transportation Currently or been in a relationship where the following occur: I choose not to answer THRIVE Score: 2 AUDIT C Alcohol Use Questionnaire (AUDIT-C) 1. How often do you have a drink containing alcohol?: Never 3. How often do you have six or more drinks on one occasion?: Never Total Score: 0 Score Reviewed/Action Taken: Yes MOSHE-7 AMB Questionnaire MOSHE-7 Date MOSHE - 7 assessed: 03/31/25 Feeling nervous, anxious, or on edge: 1 = Several days Not being able to stop or control worryin = Several days Worrying too much about different things: 1 = Several days Trouble relaxin = Several days Being so restless that it is hard to sit still: 1 = Several days Becoming easily annoyed or irritable: 1 = Several days Feeling afraid as if something awful might happen: 1 = Several days Total MOSHE-7 score (0-4 normal; 5-9 mild; 10-14 moderate; 15-21 severe): 7 Source: Developed by Drs. Som Barrera, Stephy Taylor, Michele Li and colleagues, with an educational coleman from [employer]. Review of Systems Const Reports body aches (diffuse), Denies chills, Reports fatigue (chronic), Denies fever(s) and Reports headache(s) (recurrent) ENT Reports dysphagia (see HPI), Reports dizziness (frequent lately), Denies otalgia, Reports headache(s) (recurrent), Reports neck pain (chronic), Denies odynophagia and Denies sore throat Card Denies chest pain, Reports irregular heart rhythm (c/o on and off sensations of fluttering or palpitations of her heart), Denies palpitations and Reports dyspnea on exertion (mild, chronic) Resp Denies chest congestion, Denies cough, Reports dyspnea on exertion (mild, chronic) and Denies wheezing GI Denies abdominal pain, Reports constipation (Rx helping), Reports dysphagia (see HPI), Denies heartburn, Denies diarrhea, Denies nausea, Denies odynophagia and Denies vomiting Denies hematuria, Denies difficulty voiding, Reports nocturia, Denies dysuria and Denies urinary urgency Musc Reports back pain (over the lower back, on and off; also over both shoulder areas ), Reports arthralgias (involving multiple joints, especially both shoulders/scapular areas) and Reports neck pain (chronic) Skin/Breast Denies rash Neuro Reports dizziness (frequent lately) and Reports headache(s) (recurrent) Psych Reports anxiety and Reports depression Endo Reports fatigue (chronic) and Denies palpitations Aller/Immun Denies wheezing Physical exam (Primary Care) Vital Signs: Last Vital Signs Pulse 69 03/31/25 15:32 BP 122/78 03/31/25 15:32 Pulse Ox 97 03/31/25 15:32 Oxygen Delivery Method Room Air 03/31/25 15:32 BMI result Body Mass Index 21.1 Tobacco/Smoking Status: Tobacco use Status Tobacco use date assessed 03/31/25 03/31/25 15:33 Patient Tobacco Use Status Never used Tobacco 03/31/25 15:33 Tobacco use type Cigarette 03/31/25 15:33 e-Cigarette/Vaping Use Never Used 03/31/25 15:33 PHQ-9: PHQ-9 Score PHQ-9: Total score 21 03/31/25 16:06 Depression Screening Interpretation: Positive Depression Screening Follow-up: Existing condition and In treatment Thrive Assessment: Date of Thrive Assessment Date Thrive assessed 03/31/25 03/31/25 15:33 Currently or been in a relationship where the following occur: I choose not to answer Const General: no acute distress and alert HENMT Ears: TM's normal bilaterally and EAC's normal Throat: Yes posterior oropharynx normal and Yes tonsils normal Neck Neck: No lymphadenopathy and Yes tender (over the cervical spine and paraspinal areas bilaterally) Thyroid: Thyroid normal Resp Auscultation: clear to auscultation bilaterally, no rales and no wheezes Cardio Rate: regular rate Rhythm: regular rhythm Heart sounds: no murmurs GI Palpation (GI): Soft to palpation and nontender Auscultation: normal bowel sounds General: Yes no CVA tenderness Back/Spine/Pelvis Back: no CVA tenderness Thoracic/Lumbar Spine: paraspinal muscle tenderness bilaterally (over the cervical and thoracolumbar spine (diffuse)) and lumbar spinal tenderness Skin Rashes: no rashes Extrem General: Yes no clubbing, cyanosis or edema Right upper extremity: shoulder/upper arm Details: tenderness (diffusely over the scapular area) Left upper extremity: shoulder/upper arm Details: tenderness (diffusely over the scapular areas) Results Reviewed Results Reviewed: Laboratory Tests 03/13/25 03/13/25 11:00 11:06 WBC 4.5 L Hgb 11.1 L Hct 35.8 L Plt Count 212 Sodium 142 Potassium 3.7 Creatinine 0.60 Estimated GFR > 60 Fasting Glucose 72 Calcium 8.7 Iron 51 TIBC 331 % Saturation 15 AST 24 ALT 20 Triglycerides 52 Cholesterol 203 H LDL Cholesterol, Calc 117 H HDL Cholesterol 76 Vitamin B12 326 TSH 0.65 Ur Specific Beverly 1.020 Urine Protein Negative Urine Glucose (UA) Negative Urine Blood Negative Urine Nitrite Negative Ur Leukocyte Esterase Trace H Coding Level of Care Code Est Pt Level 4 (71682) Diagnoses Seborrhea capitis in adult L21.0 Fibromyalgia M79.7 Polyarthralgia M25.50 Systemic lupus erythematosus, unspecified SLE type, unspecified organ involvement status M32.9 Systemic lupus erythematosus organ involvement: unspecified Systemic lupus erythematosus type: unspecified Dystonia G24.9 Nonintractable episodic headache, unspecified headache type R51.9 Headache chronicity pattern: episodic headache Headache type: unspecified Intractability: not intractable Heart palpitations R00.2 Oral phase dysphagia R13.11 Dysphagia type: oral phase Acquired hypothyroidism E03.9 Chronic pruritus L29.9 Anemia, unspecified type D64.9 Anemia type: unspecified type Osteoporosis without current pathological fracture, unspecified osteoporosis type M81.0 Osteoporosis type: unspecified Presence of current pathological fracture: without current pathological fracture Midline low back pain without sciatica, unspecified chronicity M54.50 Back pain laterality: midline Chronicity: unspecified Sciatica presence: without sciatica Vitamin D deficiency E55.9 Gastroesophageal reflux disease without esophagitis K21.9 Esophagitis presence: without esophagitis Chronic idiopathic constipation K59.04 Interstitial cystitis N30.10 Primary insomnia F51.01 Anxiety F41.9 Bipolar depression F31.9 Additional Codes PHQ-9 - 62554 - PHQ-9 Billing: Yes ([id number]) Assessment & Plan Assessment & Plan (1) Seborrhea capitis in adult: Code(s): L21.0 - Seborrhea capitis Category: Medical (2) Fibromyalgia: Code(s): M79.7 - Fibromyalgia Category: Medical Plan: Patient used to see Dr. Castrejon at the [facility] in [place] previously and was reportedly advised that although she tested positive for DANA, all other workups were negative and she has no clinical evidence of active disease and there is no indication for treatment for lupus or RA at the time She was also reportedly advised that most of her pain symptoms are due to fibromyalgia She was seen by rheumatology here at [facility] previously and was advised of the same - that she has no evidence of active inflammatory joint disease and there is no indication for therapy; was also reportedly advised that she may have fibromyalgia but to continue following up with her PCP for this as they do NOT treat or manage fibromyalgia, which patient finds strange Have advised patient that rheumatology nowadays mostly do not see fibromyalgia patients anymore and management of these are often left up to the patient's PCP to handle Patient is again encouraged to stay active and exercise regularly (as tolerated) to help manage her fibromyalgia symptoms Continue Lidocaine patches PRN and Gabapentin 300 mg TID (3) Polyarthralgia: Code(s): M25.50 - Pain in unspecified joint Category: Medical Plan: Continue Diclofenac sodium 1% gel topically PRN Follow up with [facility] Pain Management as scheduled She was going to physical therapy previously but states that she did not experience any relief from PT and has been advised to consider a referral to physiatry instead (4) Systemic lupus erythematosus: Code(s): M32.9 - Systemic lupus erythematosus, unspecified Category: Medical Qualifiers: Systemic lupus erythematosus organ involvement: unspecified Systemic lupus erythematosus type: unspecified Qualified Code(s): M32.9 - Systemic lupus erythematosus, unspecified Plan: Patient reports (+) Hx of SLE and she received some unrecalled Tx for lupus while she was still living in [place] many years ago but did not tolerate the Tx She has been advised by Rheumatology here on more than one occasion that although she tested positive for DANA, she has no clinical evidence of active disease and there is no indication for treatment for lupus or RA at this time Per her request, she was again referred for rheumatology consultation and she is now back to seeing [facility] Rheumatology for her lupus (5) Dystonia: Code(s): G24.9 - Dystonia, unspecified Category: Medical Plan: She continues to receive botox injections from neurology when needed for cervical dystonia Follow up with neurology as scheduled (6) Headache: Code(s): R51.9 - Headache, unspecified Category: Medical Qualifiers: Headache chronicity pattern: episodic headache Headache type: unspecified Intractability: not intractable Qualified Code(s): R51.9 - Headache, unspecified Plan: Continue Sumatriptan 50 mg PRN Patient is reminded to continue avoiding any potential migraine triggers as best as she can Follow up with neurology as scheduled (7) Heart palpitations: Code(s): R00.2 - Palpitations Category: Medical Plan: Her extended Holter monitor done a few months ago was unrevealing as her reportedly multiple vague symptoms all correlated with NSR She does have a decreased EF and mild left ventricular dysfunction seen on her recent echocardiogram Myocardial perfusion imaging study done in November 2024 showed (+) fixed apical defect, either artifactual or related to left bundle branch block. No clear evidence of ischemia or infarction otherwise. Gated LVEF is 48% during stress and 41% during rest. Correlate with echocardiogram. Transient ischemic dilatation not present. Patient also still reports experiencing frequent dizziness lately that she feels are triggered or related to movement and changes in position Follow up with cardiology as scheduled (8) Dysphagia: Comment: ORAL PHASE WITH CHOKING ON SOLID FOODS, but no finding on mod barium swallow with speech therapy, no help with bentyl or hyoscamine. Did not try CCB r/t vertigo. Code(s): R13.10 - Dysphagia, unspecified Category: Medical Qualifiers: Dysphagia type: oral phase Qualified Code(s): R13.11 - Dysphagia, oral phase Plan: Modified barium swallow done last year revealed the presence of a mild esophageal webbing at the level of C5 She was seen by GI for follow up and underwent EGD and colonoscopy back on 03/19/2024 - EGD revealed findings of mild esophagitis and gastritis She also underwent balloon dilatation of her esophagus, with (+) perceived improvement of her dysphagia since She is currently scheduled for repeat EGD later this month Follow up with GI as scheduled (9) Acquired hypothyroidism: Code(s): E03.9 - Hypothyroidism, unspecified Category: Medical Plan: Continue Synthroid 50 mcg QD Will recheck her TFTs in 4 months for follow up Follow up with endocrinology as scheduled (10) Chronic pruritus: Code(s): L29.9 - Pruritus, unspecified Category: Medical Plan: She is currently still taking Loratadine 10 mg Q AM and Cetirizine 10 mg 1 to 2 tablets Q HS PRN for her symptoms She recently failed Xolair and was started on Dupixent instead She has been seeing allergists at [facility] for the past couple of years and is encouraged to continue following up with them as scheduled Per request, we will refer her to dermatology for further evaluation/recommendations (11) Anemia: Comment: mild Code(s): D64.9 - Anemia, unspecified Category: Medical Qualifiers: Anemia type: unspecified type Qualified Code(s): D64.9 - Anemia, unspecified Plan: She remains anemic on her recent labs but her H/H has been stable for the past year Continue Ferrous Sulfate 325 mg QD States that she was advised that she will get iron infusions only on an as-needed basis Her colonoscopy done back in March 2024 came back showing only findings of melanosis coli and (+) internal hemorrhoids Due to fair colon prep, she was recommended to get a repeat colonoscopy in 5 years Will have patient recheck her labs in 4 months for follow up (12) Osteoporosis: Code(s): M81.0 - Age-related osteoporosis without current pathological fracture Category: Medical Qualifiers: Osteoporosis type: unspecified Presence of current pathological fracture: without current pathological fracture Qualified Code(s): M81.0 - Age-related osteoporosis without current pathological fracture Plan: Continue oral calcium and Vitamin D supplements daily Fall precautions reinforced Follow up with endocrinology as scheduled - she was referred by Dr. Brandon to the [facility] Vitamin D and bone metabolism unit for a second opinion but states that she has not yet been contacted for an appointment Have advised patient / daughter to reach out to Dr. Brandon regarding this as I am not familiar with the place that she was referred to nor with the reason as to why she is being referred there (13) Low back pain: Code(s): M54.5 - Low back pain Category: Medical Qualifiers: Back pain laterality: midline Chronicity: unspecified Sciatica presence: without sciatica Qualified Code(s): M54.50 - Low back pain, unspecified Plan: Repeat lumbar spine x-rays done back in July 2024 revealed (+) mild spondylosis in the lower lumbar spine with no acute findings Reinforced activity and weight-lifting restrictions to minimize aggravating her low back pain (14) Vitamin D deficiency: Code(s): E55.9 - Vitamin D deficiency, unspecified Category: Medical Plan: Continue Vitamin D2 88842 units once a week (15) GERD (gastroesophageal reflux disease): Code(s): K21.9 - Gastro-esophageal reflux disease without esophagitis Category: Medical Qualifiers: Esophagitis presence: without esophagitis Qualified Code(s): K21.9 - Gastro-esophageal reflux disease without esophagitis Plan: Dietary restrictions reinforced Continue Dexilant 60 mg QD (16) Chronic idiopathic constipation: Code(s): K59.04 - Chronic idiopathic constipation Category: Medical Plan: Continue Bisacodyl PRN and Colace 100 mg QD PRN Patient is again encouraged on increased oral fluids and dietary fiber Follow up with GI as scheduled (17) Interstitial cystitis: Code(s): N30.10 - Interstitial cystitis (chronic) without hematuria Category: Medical Plan: Her urinary bladder US done last year revealed (+) posterior wall trabeculations but no generalized bladder wall thickening and no masses or calculi noted S/P cystoscopy with hydrodistention by urology last year, with reported significant improvement of her symptoms following the procedure Patient is again encouraged to increase her oral fluid intake and was advised that drinking cranberry juice may help with her symptoms Follow up with urology as scheduled (18) Primary insomnia: Code(s): F51.01 - Primary insomnia Category: Medical Plan: Sleep hygiene reinforced Continue Trazodone 50 mg Q HS (19) Anxiety: Code(s): F41.9 - Anxiety disorder, unspecified Category: Medical Plan: Continue Clonazepam 1 mg TID PRN Follow up with psychiatry as scheduled (20) Bipolar depression: Code(s): F31.9 - Bipolar disorder, unspecified Category: Medical Plan: Continue Bupropion XL 150 mg QD, Lamotrigine 100 mg BID, Prazosin 1 mg Q HS and Olanzapine 10 mg Q HS Follow-up with Psychiatry as scheduled Plan Follow up in 4 months Orders: Orders Complete Blood Count Auto Diff 4 Months D64.9 - Anemia, unspecified Comprehensive [place]. Panel Fast 4 Months E78.00 - Pure hypercholesterolemia, unspecified Lipid Panel 4 Months E78.00 - Pure hypercholesterolemia, unspecified TSH reflex Free T4 4 Months E78.00 - Pure hypercholesterolemia, unspecified UA CC w/rflx Micro + Cult 4 Months R30.0 - Dysuria Vitamin D 25-OH Total 4 Months E55.9 - Vitamin D deficiency, unspecified Referrals Dermatology Referral L21.0 - Seborrhea capitis, L29.9 - Pruritus, unspecified Medications: Refilled ketorolac Take WITH FOOD and ONLY NEEDED for severe pain 10 mg PO Q8H PRN 20 tabs 1RF pain 7 days
[2025-03-31 15:32] VITALS: BP 122/78; PULSE 69; O2SAT 97; BMI 21.1
--- OUTSIDE RECORDS SUMMARY | 2025-03-31 18:22 | XMS_ITS | Clinical Summary ---
Author Organization [facility] Address [address] [place] [address] Care Team Providers Care Vp Ad Products And Planning Name Role Phone Chuck Davila MD Primary Care Provider Surgical History Surgery Date Site/Laterality Comments SECTION PROCEDURE: SECTION TUBAL LIGATION PROCEDURE:TUBAL LIGATION MASTECTOMY PROCEDURE:MASTECTOMY COLONOSCOPY PROCEDURE:COLONOSCOPY HYSTERECTOMY PROCEDURE:HYSTERECTOMY Medical History Medical History Date Comments Breast cancer (CMS/HCC V24, CMS/[facility] V28) DX:Breast cancer (HCC) Disease [...] age to complete this topic Care Teams Vp Ad Products And Planning Relationship Specialty Start Date End Date Chuck Davila MD [address] [place] [address] Dr [address] ANJU Huerta PCP - General 04/07/23
--- OUTSIDE RECORDS SUMMARY | 2025-03-31 18:22 | XMS_ITS | Clinical Summary ---
Author Organization [employer] Address [address] [place] [address] [address] [place] [address] Care Team Providers Care Senior Manufacturing Engineer Name Role Phone Unavailable Primary Care [...]
--- OUTSIDE RECORDS SUMMARY | 2025-03-31 18:22 | XMS_ITS | Encounter Summary ---
Author Organization [employer] Address [address] [place] [address] [address] [place] [address] Care Team Providers Care Ink Printer Name Role Phone Unavailable Primary Care Provider Unavailabl e Encounter Details Date Type Department Care Team (Latest Contact Info) Description 07/09/2018 Abstract [facility] CONVERSIONS Dental, Provider, DDS Social History Tobacco [...]
--- OUTSIDE RECORDS SUMMARY | 2025-03-31 18:22 | XMS_ITS | Clinical Summary ---
Author Organization [facility] Address [address] [place] [address] Care Team Providers Care Machine Feed Operator Name Role Phone Chuck Davila MD Primary Care Provider [phone] Allergies Active Allergy Reactions Criticality Noted Date [...] age to complete this topic Care Teams Machine Feed Operator Relationship Specialty Start Date End Date Chuck Davila MD [address] [place] [address] [place] [address] PCP - General Internal Medicine 04/07/23
== END 2025-03-31 16:16 | disposition home or self-care (01) ==
LOC: HO.HMCH 15:19
PROVIDERS: PCP Internal Medicine; Visit Provider Internal Medicine
DX: M32.9 Systemic lupus erythematosus, unspecified (principal); F31.9 Bipolar disorder, unspecified; L21.0 Seborrhea capitis; M79.7 Fibromyalgia; M25.50 Pain in unspecified joint; G24.9 Dystonia, unspecified; R51.9 Headache, unspecified; R00.2 Palpitations; R13.11 Dysphagia, oral phase; E03.9 Hypothyroidism, unspecified; L29.9 Pruritus, unspecified; D64.9 Anemia, unspecified; M81.0 Age-related osteoporosis without current pathological fracture; M54.50 Low back pain, unspecified; E55.9 Vitamin D deficiency, unspecified; K21.9 Gastro-esophageal reflux disease without esophagitis; K59.04 Chronic idiopathic constipation; N30.10 Interstitial cystitis (chronic) without hematuria; F51.01 Primary insomnia; F41.9 Anxiety disorder, unspecified

== ENCOUNTER → 2025-03-31 15:18 | Outpatient (BNVA) | payer OTHER, SELFPAY | PROVIDERS: PCP Internal Medicine; Visit Provider Internal Medicine | DX: L21.0 Seborrhea capitis (principal); L29.9 Pruritus, unspecified; M79.7 Fibromyalgia; M25.50 Pain in unspecified joint; M32.9 Systemic lupus erythematosus, unspecified; G24.9 Dystonia, unspecified; R51.9 Headache, unspecified; R00.2 Palpitations; R13.11 Dysphagia, oral phase; E03.9 Hypothyroidism, unspecified; D64.9 Anemia, unspecified; M81.0 Age-related osteoporosis without current pathological fracture; M54.50 Low back pain, unspecified; E55.9 Vitamin D deficiency, unspecified; L21.9 Seborrheic dermatitis, unspecified; K59.04 Chronic idiopathic constipation; N30.10 Interstitial cystitis (chronic) without hematuria; F51.01 Primary insomnia; F41.9 Anxiety disorder, unspecified; F31.9 Bipolar disorder, unspecified; Z13.31 Encounter for screening for depression; Z98.890 Other specified postprocedural states | CPT/HCPCS: 96127; 99212 ==

== ENCOUNTER 2025-04-04 14:10 | Outpatient (REF) | payer OTHER, SELFPAY ==
[2025-04-04 16:16] LABS: Appearance Urine Turbid; Glucose Urine UA Negative (Negative); PH 6.0 (5.0-9.0); Specific Gravity - Urine 1.025 (1.005-1.025); UMIC TRIGGER UA YES
--- OUTSIDE RECORDS SUMMARY | 2025-04-04 18:21 | XMS_ITS | Clinical Summary ---
Author Organization [employer] Address [address] [place] [address] [address] [place] [address] Care Team Providers Care Bladder Blower Name Role Phone Unavailable Primary Care Provider [...]
--- OUTSIDE RECORDS SUMMARY | 2025-04-04 18:21 | XMS_ITS | Encounter Summary ---
Author Organization [employer] Address [address] [place] [address] [address] [place] [address] Care Team Providers Care Ingot Header Name Role Phone Unavailable Primary Care Provider Unavailabl e Encounter Details Date Type Department Care Team (Latest Contact Info) Description 07/09/2018 Abstract [facility] CONVERSIONS Dental, Provider, DDS Social History [...]
--- OUTSIDE RECORDS SUMMARY | 2025-04-04 18:22 | XMS_ITS | Clinical Summary ---
Author Organization [facility] Address [address] [place] [address] Care Team Providers Care Metalworking Instructor Name Role Phone Chuck Davila MD Primary Care Provider [phone] Surgical History Surgery Date Site/Laterality Comments SECTION PROCEDURE: SECTION TUBAL LIGATION PROCEDURE:TUBAL LIGATION MASTECTOMY PROCEDURE:MASTECTOMY COLONOSCOPY PROCEDURE:COLONOSCOPY HYSTERECTOMY PROCEDURE:HYSTERECTOMY Medical History Medical History Date Comments Breast cancer (CMS/HCC V24, CMS/[facility] V28) DX:Breast cancer (HCC) Disease of [...] age to complete this topic Care Teams Metalworking Instructor Relationship Specialty Start Date End Date Chuck Davila MD [address] [place] [address] Dr [address] ANJU Huerta PCP - General 04/07/23
--- OUTSIDE RECORDS SUMMARY | 2025-04-04 18:22 | XMS_ITS | Clinical Summary ---
Author Organization [facility] Prior to 09/28/24 Address [address] [place] [address] Care Team Providers Care Bouffant Curtain Machine Tender Name Role Phone Chuck Davila MD Primary Care Provider [phone] Allergies Active Allergy Reactions Criticality Noted Date [...] 04/20/2023 Active D3 Super Strength 50 MCG (1999 [place]) CAPS TOME RTUDY C PSULA TODOS LOS D 0 05/06/2023 [...] age to complete this topic Care Teams Bouffant Curtain Machine Tender Relationship Specialty Start Date End Date Chuck Davila MD [address] [place] [address] [place] [address] PCP - General Internal Medicine 04/07/23
== END 2025-04-04 14:11 | disposition home or self-care (01) ==
LOC: HO.HMGCLDS 14:10
PROVIDERS: PCP Internal Medicine; Visit Provider Nurse Practitioner Family
DX: N30.10 Interstitial cystitis (chronic) without hematuria (principal); R39.89 Other symptoms and signs involving the genitourinary system
CPT/HCPCS: 81001; 87086; 87088; 87186

== ENCOUNTER 2025-04-16 13:11 | Outpatient (REF) | payer OTHER, SELFPAY ==
--- NOTE | ~2025-04-16 | US_ITS ---
EXAMINATION: US RETROPERITONEUM HISTORY: R39.9 - Unspecified symptoms and signs involving the genitourinary system TECHNIQUE: Real-time grayscale ultrasound imaging of the kidneys was performed and images were reviewed. COMPARISON: There are no prior studies available for comparison. FINDINGS: Right kidney: The right kidney measures 8.7 x 3.2 x 4.1 cm. Renal parenchymal echotexture and thickness are normal. There are no masses. There is no hydronephrosis or renal calculi. Left Kidney: The left kidney measures 9.2 x 4.3 x 4.1 cm. Renal parenchymal echotexture and thickness are normal. There are no masses. There is no hydronephrosis or renal calculi. The urinary bladder is unremarkable. Bilateral ureteral jets are identified. Before voiding, the urinary bladder measured 8.6 x 7.4 x 9.1 cm, for an estimated volume of 301 mL. After voiding, the urinary bladder measured 3.4 x 2.2 x 4.3 cm, for an estimated volume of 17 mL. US/US retroperitoneal comp IMPRESSION: Unremarkable retroperitoneal ultrasound. Post void bladder residual of 17 mL. Electronically signed by: Som Guerrero MD 04/16/2025 02:28 PM [facility]
== END 2025-04-16 13:12 ==
LOC: HO.US 13:11
PROVIDERS: PCP Internal Medicine; Visit Provider Nurse Practitioner Family
DX: R39.9 Unspecified symptoms and signs involving the genitourinary system (principal)
CPT/HCPCS: 76770

== ENCOUNTER → 2025-04-16 13:13 | Outpatient (BNV) | payer OTHER, SELFPAY | PROVIDERS: PCP Internal Medicine; Visit Provider Radiology Diagnostic Radiology | DX: R39.9 Unspecified symptoms and signs involving the genitourinary system (principal) | CPT/HCPCS: 76770 ==

== ENCOUNTER 2025-04-22 14:59 | Outpatient (AMB) | payer OTHER, SELFPAY ==
--- NOTE | 2025-04-22 15:02 | MHC.OFFVIS ---
Vital Signs 04/22/25 15:04 Height 5 ft 2 in Weight 117 lb 11.629 oz BMI 21.5 BP 110/68 Blood Pressure Location Lt brachial Position Sitting Pulse 81 Pulse Source Pulse Oximeter Intake Visit Reasons: 3 mth fu after CTA Supervisor Respiratory Required: Yes Supervisor Respiratory Name: Kayla Juarez [id number] Information Interpreted: non-clinical & clinical Accompanied by: Self / Same As Patient Allergies Sulfa (Sulfonamide Antibiotics) Allergy (Severe, Verified 04/22/25 15:13) Itching codeine (CODEINE) Allergy (Intermediate, Verified 04/22/25 15:13) ITCHING hydroxychloroquine (From PLAQUENIL) Allergy (Intermediate, Verified 04/22/25 15:13) VOMITING morphine (MORPHINE) Allergy (Intermediate, Verified 04/22/25 15:13) ITCHING Estrogens Allergy (Mild, Verified 04/22/25 15:13) Unknown levothyroxine sodium Allergy (Unknown, Verified 04/22/25 15:13) rash,throat closes prednisone Allergy (Unknown, Verified 04/22/25 15:13) Unknown Corticosteroids (Glucocorticoids) (CORTICOSTEROIDS (GLUCOCORTICOIDS)) Adverse Reaction (Severe, Verified 04/22/25 15:13) DIFFICULTY BREATHING escitalopram (From Lexapro) Adverse Reaction (Severe, Verified 04/22/25 15:13) seizure meloxicam Adverse Reaction (Severe, Verified 04/22/25 15:13) Gastrointestinal Upset tadalafil (From Cialis) Adverse Reaction (Intermediate, Verified 04/22/25 15:13) Nausea and Vomiting acetaminophen (Percocet) Adverse Reaction (Unknown, Verified 04/22/25 15:13) Unknown duloxetine Adverse Reaction (Unknown, Verified 04/22/25 15:13) Unknown fluconazole Adverse Reaction (Unknown, Verified 04/22/25 15:13) Itch, pain, Medication List - Last Reconciled 04/22/25 by Sadiq Purvis NP albuterol sulfate 90 mcg/actuation (Ventolin HFA) 2 puffs inhalation Q6H PRN bisacodyl 10 mg (2 x 5 mg) PO BEDTIME bupropion HCl XL 150 mg PO QAM clonazepam 1 mg PO TID diclofenac sodium 1% 4 grams topical QID ferrous sulfate 324 mg PO DAILY gabapentin 300 mg PO TID lamotrigine 50 mg (2 x 25 mg) PO BEDTIME lidocaine 5% 1 patch topical DAILY 30 days nitrofurantoin monohyd/m-cryst 100 mg (Macrobid) 100 mg PO BID 14 days nystatin 1 mL PO DAILY onabotulinumtoxinA (Botox) 200 units IM [id number] 90 days ondansetron HCl 8 mg PO BEDTIME PRN phenazopyridine (Pyridium) 200 mg PO Q8H PRN simethicone (Gas Relief (simethicone)) 125 mg PO BID-QID PRN solifenacin (Vesicare) 5 mg PO DAILY 30 days trazodone 100 mg PO BEDTIME HPI Comments Details: This is a 59-year-old female patient coming in for a follow-up visit. Patient is Lithuanian-speaking and an forest technician was used throughout the visit. Patient has been following with us for cardiomyopathy and ongoing chest discomfort, shortness of breath and dizziness for which patient has undergone cardiac testings including Holter, echo that showed reduced EF at 44% with wall motion abnormalities for which patient underwent a myocardial perfusion study showing no clear ischemia. Most recently patient underwent a coronary CTA that showed no coronary artery disease. Patient has history report symptoms of chest discomfort, shortness of breath, dizziness, and palpitations which are random in nature. Patient is denying any associated symptoms of orthopnea, PND, leg edema, presyncope or syncope. In June, patient was noted to have a left bundle branch block on her EKG however no other EKGs show this. Patient is otherwise reporting compliance with all her medications. 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 antibody Family history of polyps in the colon Fracture of neck of left humerus Chronic gastritis Insomnia Hypothyroidism Seropositive rheumatoid arthritis Leukopenia Gingivitis History of breast cancer Estrogen receptor positive status [ER+] Ductal carcinoma in situ (DCIS) of left breast Autoimmune disorder PTSD (post-traumatic stress disorder) Fibromyalgia Schatzki's ring Rheumatoid arthritis Small bowel motility disorder Osteoporosis Raynaud's disease without gangrene Anxiety Primary insomnia Acquired hypothyroidism Systemic lupus erythematosus Left temporomandibular joint disorder, unspecified Surgical History Hx of abdominoplasty History of esophagogastroduodenoscopy (EGD) Hx of colonoscopy History of bilateral mastectomy History of total abdominal hysterectomy and bilateral salpingo-oophorectomy History of cholecystectomy History of tubal ligation History of section Family History Father Prostate cancer Hypertension Mother Breast cancer Hypertension Asthma Maternal Aunt Breast cancer Maternal Grandmother Colon cancer Maternal Aunt Breast cancer Sister Bone cancer Social History Household Members: Children Household Members Other:: 2 daughters and 3 dogs Housing: House Do you presently have visiting nurse or other home services: No Alcohol intake: never Comment: 5 min safety checks Patient Tobacco Use Status: Never used Tobacco Tobacco use type: Cigarette e-Cigarette/Vaping Use: Never Used Second Hand Smoke Exposure: No Advance Directives Date on File: 08/12/20 service: No Current occupational status: disabled Current occupational exposures/hazards: No Sexual orientation: Straight/Heterosexual Gender identity: Female Cognitive needs: Yes (cane) Hearing needs: No Vision needs: Yes (Glasses) Female Reproductive History Menstrual Age of Menarche: 10 Review of Systems Const Denies daytime sleepiness, Denies difficulty sleeping, Reports fatigue, Denies snoring, Denies stops breathing during sleep and Reports weakness Card Denies chest pain, Denies rapid heart rate, Denies irregular heart rhythm, Denies claudication, Denies leg edema, Denies lightheadedness, Reports palpitations, Denies dyspnea, Denies dyspnea on exertion, Denies orthopnea, Denies paroxysmal nocturnal dyspnea and Denies slow heart rate Resp Denies cough, Denies dyspnea, Denies dyspnea on exertion and Denies snoring GI Reports no additional complaints, Denies hematochezia, Denies change in stool character and Denies dyspepsia Musc Denies abnormal gait, Denies muscle weakness and Denies numbness Neuro Denies abnormal gait, Denies numbness and Reports weakness Endo Reports fatigue and Reports palpitations Physical Exam Vital Signs: Last Vital Signs Pulse 81 04/22/25 15:04 BP 110/68 04/22/25 15:04 BMI result Body Mass Index 21.5 Const General: cooperative, healthy appearing, comfortable and no acute distress Orientation/consciousness: patient oriented x3 HEENT Head: Yes normal to inspection Neck Neck: Yes normal visual inspection, Yes trachea midline and Yes supple Chest Chest palpation & inspection: normal inspection of the chest Resp Effort & Inspection: normal respiratory effort Auscultation: clear to auscultation bilaterally, no crackles, no rales, no rhonchi and no wheezes Cardio Jugular venous distension: no JVD Palpation: normal PMI Rate: regular rate Rhythm: regular rhythm Heart sounds: S1 normal heart sound present, S2 normal heart sound present, no click, no gallops, no murmurs and no rubs Peripheral pulses: Peripheral pulses 2+ throughout GI Inspection: Yes normal to inspection Palpation (GI): Soft to palpation Auscultation: normal bowel sounds Skin General skin exam: no rashes or lesions noted Neuro General: patient oriented x3 Extrem General: Yes normal to inspection, No no pedal edema and No calf tenderness Psych Appearance: grossly normal Mental Status: mental status grossly normal Speech and movement: Normal speech and movement present Assessment & Plan Assessment & Plan (1) Cardiomyopathy: Code(s): I42.9 - Cardiomyopathy, unspecified Category: Medical Plan: 10/14/2024- Holter study showed a baseline normal sinus rhythm with rare PACs. 10/14/2024-echo study showed a mildly reduced LV systolic function with the ejection fraction at 44% with hypokinetic inferoseptal wall, basal inferior, and basal inferolateral segments, and a small loculated pericardial effusion over left ventricle. 12/11/2024-patient underwent a myocardial perfusion study with vasodilating agent that showed no clear evidence of ischemia. 04/09/2025- coronary CTA showed no significant plaque or stenosis of the coronary arteries however incidental finding of suspected small fistula between proximal OM1 in the greater cardiac vein. Given her findings of wall motion abnormality, pericardial effusion, and ongoing symptoms, we will get a cardiac MRI. We will start patient on valsartan and Jardiance at this time. Benefits of current directed medical therapy was discussed with the patient. If her blood pressure permits then we can plan on switching to Entresto and adding Aldactone. Clinically euvolemic. Discussed on signs and symptoms of heart failure to watch for. Advised on low-salt diet, daily weight monitoring, and compression socks as needed. (2) Chest pain: Code(s): R07.9 - Chest pain, unspecified Category: Medical Plan: As above. (3) Exertional dyspnea: Code(s): R06.09 - Other forms of dyspnea Category: Medical Plan: As above. (4) Dizziness: Code(s): R42 - Dizziness and giddiness Category: Medical Plan: As above. Advised on heart healthy diet, regular exercise, stress mitigation strategies, med compliance, and management of vascular risk factors. Further treatment plan based on findings. Follow up after cardiac MRI. In the interim, patient will call the office with any concerns or change in symptoms. This note was generated using voice recognition software. While every effort has been made to ensure accuracy and proper spark tester, there may be occasional errors that could affect the content or meaning of the described symptoms. Orders: Orders Basic Metabolic Panel Today I42.9 - Cardiomyopathy, unspecified MR cardiac morph fnct w/wo con Today I42.9 - Cardiomyopathy, unspecified Medications: New valsartan 40 mg PO BID 60 tabs 1RF empagliflozin 25 mg PO DAILY 60 tabs 0RF Coding Level of Care Code Est Pt Level 4 (49187) Add On Problem Visit Only Diagnoses Cardiomyopathy I42.9 Chest pain R07.9 Exertional dyspnea R06.09 Dizziness R42 Time Spent (min) 34 Comment Time spent in reviewing the chart, test results, assessment, counseling and documentation.
[2025-04-22 15:04] VITALS: BP 110/68; PULSE 81; BMI 21.5
--- OUTSIDE RECORDS SUMMARY | 2025-04-22 16:16 | XMS_ITS | Encounter Summary ---
Author Organization [employer] Address [address] [place] [address] [address] [place] [address] Care Team Providers Care Flow Specialist Name Role Phone Unavailable Primary Care Provider Unavailabl e Encounter Details Date Type Department Care Team (Latest Contact Info) Description 07/09/2018 Abstract [facility] CONVERSIONS Dental, Provider, DDS Social History Tobacco [...]
--- OUTSIDE RECORDS SUMMARY | 2025-04-22 16:16 | XMS_ITS | Clinical Summary ---
Author Organization [facility] Prior to 09/28/24 Address [address] [place] [address] Care Team Providers Care Planting Material Carrier Name Role Phone Chuck Davila MD Primary Care Provider [phone] Allergies Active Allergy Reactions Criticality Noted Date [...] Strength 50 MCG (1999 UT) CAPS TOME TRUDY C PSULA TODOS LOS [...] age to complete this topic Care Teams Planting Material Carrier Relationship Specialty Start Date End Date Chuck Davila MD [address] [place] [address] [place] [address] PCP - General Internal Medicine 04/07/23
--- OUTSIDE RECORDS SUMMARY | 2025-04-22 16:16 | XMS_ITS | Clinical Summary ---
Author Organization [employer] Address [address] [place] [address] [address] [place] [address] Care Team Providers Care Beauty Artist Name Role Phone Unavailable Primary Care Provider [...]
--- OUTSIDE RECORDS SUMMARY | 2025-04-22 16:16 | XMS_ITS | Clinical Summary ---
Author Organization [facility] Address [address] [place] [address] Care Team Providers Care Apprentice Cook Name Role Phone Chuck Davila MD Primary Care Provider [phone] Surgical History Surgery Date Site/Laterality Comments SECTION PROCEDURE: SECTION TUBAL LIGATION PROCEDURE:TUBAL LIGATION MASTECTOMY PROCEDURE:MASTECTOMY COLONOSCOPY PROCEDURE:COLONOSCOPY HYSTERECTOMY PROCEDURE:HYSTERECTOMY Medical History Medical History Date Comments Breast cancer (CMS/HCC V24, CMS/HCC V28) DX:Breast cancer (HCC) Disease of thyroid [...] on file Sexual Orientation Not on file Last Filed Vital Signs [...] age to complete this topic Care Teams Apprentice Cook Relationship Specialty Start Date End Date Cuhck Davila MD [address] [place] [address] Dr [address] ANJU Huerta PCP - General 04/07/23
== END 2025-04-22 15:47 | disposition home or self-care (01) ==
LOC: HO.HCS 15:00
PROVIDERS: PCP Internal Medicine
DX: I42.9 Cardiomyopathy, unspecified (principal); R07.9 Chest pain, unspecified; R06.09 Other forms of dyspnea; R42 Dizziness and giddiness
CPT/HCPCS: 99214

== ENCOUNTER → 2025-04-22 14:59 | Outpatient (BNVA) | payer OTHER, SELFPAY | PROVIDERS: PCP Internal Medicine | DX: R06.09 Other forms of dyspnea (principal); R07.9 Chest pain, unspecified; R42 Dizziness and giddiness; I42.9 Cardiomyopathy, unspecified | CPT/HCPCS: 99212 ==

== ENCOUNTER 2025-04-25 11:20 | Day surgery (SDC) | payer OTHER, SELFPAY ==
--- OUTSIDE RECORDS SUMMARY | 2025-03-20 10:58 | XMS_ITS | Clinical Summary ---
Author Organization [facility] Address [address] [place] [address] Care Team Providers Care Assistant Plant Controller Name Role Phone Chuck Davila MD Primary Care Provider +1- [phone] Allergies Active Allergy Reactions Criticality Noted Date [...] age to complete this topic Care Teams Assistant Plant Controller Relationship Specialty Start Date End Date Chuck Davila MD [address] [place] [address] [place] [address] PCP - General Internal Medicine 04/07/23
--- OUTSIDE RECORDS SUMMARY | 2025-03-20 10:58 | XMS_ITS | Encounter Summary ---
Author Organization [employer] Address [address] [place] [address] [address] [place] [address] Care Team Providers Care Destaticizer Feeder Name Role Phone Unavailable Primary Care Provider Unavailabl e Encounter Details Date Type Department Care Team (Latest Contact Info) Description 07/09/2018 Abstract [facility] CONVERSIONS Dental, Provider, DDS Social History Tobacco [...]
--- OUTSIDE RECORDS SUMMARY | 2025-03-20 10:58 | XMS_ITS | Clinical Summary ---
Author Organization [employer] Address [address] [place] [address] [address] [place] [address] Care Team Providers Care Millinery Salesperson Name Role Phone Unavailable Primary Care Provider [...] of 2) 2013 COVID-19 Vaccine ( - 2024-2 6 season) 2024 Influenza Vaccine [...]
[2025-04-21 14:15] VITALS: BMI 21.2
--- NOTE | 2025-04-22 09:11 | P.CONAN_ITS ---
Documented by User: Sanjana Salazar NP 04/22/25 09:25 HPI - Anesthesia Eval Consult details Narrative: 59 yr old female for upper endoscopy s/p cystoscopy with GA, LMA 3 on 03/25/25. Cardiomopathy: follows [facility] cardiology, last visit 12/2024 stated Given wall motion abnormality on echo and her ongoing symptoms, we will proceed with a coronary CTA to look for a coronary artery disease and the extent of ischemic changes .On 03/25/25 Dr. Mishra stated may proceed if no acute cardiac symptoms . Replied to [employer] from . Coronary CTA was completed at [facility] 04/09/25: no significant CAD or ischemic changes, see below [facility] Active Problems Active Problems: All Active Problems (Updated 04/21/25 @ 14:02 by Jessica Rivero RN) Pruritus (Acute) Symptomatic urinary tract infection (Acute) Sternum pain (Acute) Chronic migraine without aura without status migrainosus, not intractable (Acute) Cardiomyopathy (Acute) Chest pain (Acute) Vertigo (Acute) LBBB (left bundle branch block) (Acute) Heart palpitations (Acute) Sensation of pressure in bladder area (Acute) Bipolar 2 disorder, major depressive episode (Acute) Migraine (Acute) Suicidal ideation (Acute) Prolonged Q-T interval on ECG (Acute) Dizziness (Acute) Exertional dyspnea (Acute) Dysphagia (Acute) Osteoarthritis of lumbar spine (Acute) Osteoarthritis of knees, bilateral (Acute) Interstitial cystitis (Acute) Bilateral carpal tunnel syndrome (Acute) Dystonia (Acute) Elevated BP without diagnosis of hypertension (Acute) Anemia (Acute) Tubular adenoma of colon (Acute) GERD (gastroesophageal reflux disease) (Acute) Constipation (Acute) Seborrhea capitis in adult (Acute) Headache (Acute) Osteopenia (Acute) Chronic pruritus (Acute) Polyarthralgia (Acute) PTSD (post-traumatic stress disorder) (Acute) Fibromyalgia (Acute) Osteoporosis (Acute) Raynaud's disease without gangrene (Acute) Anxiety (Acute) Primary insomnia (Acute) Systemic lupus erythematosus (Acute) Left temporomandibular joint disorder, unspecified (Acute) Past Medical History Medical History GERD (gastroesophageal reflux disease) Seborrhea capitis in adult Headache Osteopenia SOB (shortness of breath) Bipolar depression Arthralgia Recurrent cystitis History of breast cancer in female Bipolar 1 disorder Chronic idiopathic constipation Depression Chronic pruritus Vitamin D deficiency Polyarthralgia Small bowel motility disorder Urinary frequency Abdominal pannus 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 Family history of polyps in the colon Fracture of neck of left humerus Chronic gastritis Insomnia Hypothyroidism Seropositive rheumatoid arthritis Leukopenia Gingivitis History of breast cancer Estrogen receptor positive status [ER+] Ductal carcinoma in situ (DCIS) of left breast Autoimmune disorder PTSD (post-traumatic stress disorder) Fibromyalgia Schatzki's ring Rheumatoid arthritis Small bowel motility disorder Osteoporosis Raynaud's disease without gangrene Anxiety Primary insomnia Acquired hypothyroidism Systemic lupus erythematosus Left temporomandibular joint disorder, unspecified Family History Family History Father Prostate cancer Hypertension Mother Breast cancer Hypertension Asthma Maternal Aunt Breast cancer Maternal Grandmother Colon cancer Maternal Aunt Breast cancer Sister Bone cancer Family history of problems with anesthesia: No Surgical History Surgical History Hx of abdominoplasty History of esophagogastroduodenoscopy (EGD) Hx of colonoscopy History of bilateral mastectomy History of total abdominal hysterectomy and bilateral salpingo-oophorectomy History of cholecystectomy History of tubal ligation History of section History of Problems with Anesthesia: No Social History Social History Household Members: Children Household Members Other:: 2 daughters and 3 dogs Housing: House Do you presently have visiting nurse or other home services: No Alcohol intake: never Comment: 5 min safety checks Patient Tobacco Use Status: Never used Tobacco Tobacco use type: Cigarette e-Cigarette/Vaping Use: Never Used Second Hand Smoke Exposure: No Use of substances other than those prescribed or required for medical reasons: No Advance Directives: No Advance Directives Information Provided: Yes Advance Directives Date on File: 08/12/20 service: No Current occupational status: disabled Current occupational exposures/hazards: No Sexual orientation: Straight/Heterosexual Gender identity: Female Cognitive needs: Yes (cane) Hearing needs: No Vision needs: Yes (Glasses) Meds Allergies Allergy/AdvReac Type Severity Reaction Status Date / Time Sulfa (Sulfonamide Allergy Severe Itching Verified 04/22/25 15:13 Antibiotics) codeine (CODEINE) Allergy Intermediate ITCHING Verified 04/22/25 15:13 hydroxychloroquine (From Allergy Intermediate VOMITING Verified 04/22/25 15:13 PLAQUENIL) morphine (MORPHINE) Allergy Intermediate ITCHING Verified 04/22/25 15:13 Estrogens Allergy Mild Unknown Verified 04/22/25 15:13 levothyroxine sodium Allergy Unknown rash,throat Verified 04/22/25 15:13 closes prednisone Allergy Unknown Unknown Verified 04/22/25 15:13 Corticosteroids AdvReac Severe DIFFICULTY Verified 04/22/25 15:13 (Glucocorticoids) BREATHING (CORTICOSTEROIDS (GLUCOCORTICOIDS)) escitalopram (From Lexapro) AdvReac Severe seizure Verified 04/22/25 15:13 meloxicam AdvReac Severe Gastrointestinal Verified 04/22/25 15:13 Upset tadalafil (From Cialis) AdvReac Intermediate Nausea and Verified 04/22/25 15:13 Vomiting acetaminophen (Percocet) AdvReac Unknown Unknown Verified 04/22/25 15:13 duloxetine AdvReac Unknown Unknown Verified 04/22/25 15:13 fluconazole AdvReac Unknown Itch, pain, Verified 04/22/25 15:13 Home Medications ?Medication ?Instructions ?Recorded ?Confirmed ?Last Taken ?Type bupropion HCl 150 mg 24 hr tablet, 150 mg PO QAM 08/1304/22/25 Unknown History extended release gabapentin 300 mg capsule 300 mg PO TID 08/13/2404/22 Unknown History ondansetron HCl 8 mg tablet 8 mg PO BEDTIME PRN nausea 08/13/24 04/22/25 Unknown History trazodone 100 mg tablet 100 mg PO BEDTIME 10/11/24 1 06/23/24 Unknown History clonazepam 1 mg tablet 1 mg PO TID Anxiety 01/15/25 04/22/25 Unknown History Exam Height,Weight and Vital Signs: Height 5 ft 2 in Weight 52.617 kg Narrative Narrative: Coronary CTA 04/09/25 Assessment and Plan Assessment Anesthesia Assessment: Chart Reviewed Final Anesthetic Review Family History of Problems with Anesthesia: No History of Problems with Anesthesia: No Documented by User: Maldonado Martin MD 04/25/25 13:28 [facility] Past Medical History Medical History GERD (gastroesophageal reflux disease) Seborrhea capitis in adult Headache Osteopenia SOB (shortness of breath) Bipolar depression Arthralgia Recurrent cystitis History of breast cancer in female Bipolar 1 disorder Chronic idiopathic constipation Depression Chronic pruritus Vitamin D deficiency Polyarthralgia Small bowel motility disorder Urinary frequency Abdominal pannus 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 Family history of polyps in the colon Fracture of neck of left humerus Chronic gastritis Insomnia Hypothyroidism Seropositive rheumatoid arthritis Leukopenia Gingivitis History of breast cancer Estrogen receptor positive status [ER+] Ductal carcinoma in situ (DCIS) of left breast Autoimmune disorder PTSD (post-traumatic stress disorder) Fibromyalgia Schatzki's ring Rheumatoid arthritis Small bowel motility disorder Osteoporosis Raynaud's disease without gangrene Anxiety Primary insomnia Acquired hypothyroidism Systemic lupus erythematosus Left temporomandibular joint disorder, unspecified Family History Family History Father Prostate cancer Hypertension Mother Breast cancer Hypertension Asthma Maternal Aunt Breast cancer Maternal Grandmother Colon cancer Maternal Aunt Breast cancer Sister Bone cancer Surgical History Surgical History Hx of abdominoplasty History of esophagogastroduodenoscopy (EGD) Hx of colonoscopy History of bilateral mastectomy History of total abdominal hysterectomy and bilateral salpingo-oophorectomy History of cholecystectomy History of tubal ligation History of section Social History Social History Household Members: Children Household Members Other:: 2 daughters and 3 dogs Housing: House Do you presently have visiting nurse or other home services: No Alcohol intake: never Comment: 5 min safety checks Patient Tobacco Use Status: Never used Tobacco Tobacco use type: Cigarette e-Cigarette/Vaping Use: Never Used Second Hand Smoke Exposure: No Use of substances other than those prescribed or required for medical reasons: No Advance Directives: No Advance Directives Information Provided: Yes Advance Directives Date on File: 08/12/20 service: No Current occupational status: disabled Current occupational exposures/hazards: No Sexual orientation: Straight/Heterosexual Gender identity: Female Cognitive needs: Yes (cane) Hearing needs: No Vision needs: Yes (Glasses) Meds Allergies Allergy/AdvReac Type Severity Reaction Status Date / Time Sulfa (Sulfonamide Allergy Severe Itching Verified 04/22/25 15:13 Antibiotics) codeine (CODEINE) Allergy Intermediate ITCHING Verified 04/22/25 15:13 hydroxychloroquine (From Allergy Intermediate VOMITING Verified 04/22/25 15:13 PLAQUENIL) morphine (MORPHINE) Allergy Intermediate ITCHING Verified 04/22/25 15:13 Estrogens Allergy Mild Unknown Verified 04/22/25 15:13 levothyroxine sodium Allergy Unknown rash,throat Verified 04/22/25 15:13 closes prednisone Allergy Unknown Unknown Verified 04/22/25 15:13 Corticosteroids AdvReac Severe DIFFICULTY Verified 04/22/25 15:13 (Glucocorticoids) BREATHING (CORTICOSTEROIDS (GLUCOCORTICOIDS)) escitalopram (From Lexapro) AdvReac Severe seizure Verified 04/22/25 15:13 meloxicam AdvReac Severe Gastrointestinal Verified 04/22/25 15:13 Upset tadalafil (From Cialis) AdvReac Intermediate Nausea and Verified 04/22/25 15:13 Vomiting acetaminophen (Percocet) AdvReac Unknown Unknown Verified 04/22/25 15:13 duloxetine AdvReac Unknown Unknown Verified 04/22/25 15:13 fluconazole AdvReac Unknown Itch, pain, Verified 04/22/25 15:13 Home Medications ?Medication ?Instructions ?Recorded ?Confirmed ?Last Taken ?Type bupropion HCl 150 mg 24 hr tablet, 150 mg PO QAM 08/1304/22/25 Unknown History extended release gabapentin 300 mg capsule 300 mg PO TID 08/13/2404/22 Unknown History ondansetron HCl 8 mg tablet 8 mg PO BEDTIME PRN nausea 08/13/24 04/22/25 Unknown History trazodone 100 mg tablet 100 mg PO BEDTIME 10/11/24 1 06/23/24 Unknown History clonazepam 1 mg tablet 1 mg PO TID Anxiety 01/15/25 04/22/25 Unknown History Exam Airway Mallampati Class: I TM Dist: >3cm Neck ROM: Full Heart: ok Lungs: ok Assessment and Plan Assessment Anesthesia Assessment: Anesthesia Plan Discussed Final Anesthetic Review NPO: Yes ASA Class: III Final Preanesthetic Review: No Changes in Pt Med Stat, Meds/Allgs Chart Reviewed, Consent Obtained/Reviewed and Anes Risks/Benef Reviewed Patient Risk: Intermediate Procedure Risk: Intermediate Anesthetic Plan Anesthetic Plan: Agree w/ Assess. and Plan and TIVA Disposition: Standard PACU
[2025-04-25 11:47] VITALS: BP 120/68; PULSE 83; RESP 16; TEMP 37.3; O2SAT 98
[2025-04-25] MEDS: Lactated Ringers 1,000 ML 100 ML IVCONT (11:48)
--- NOTE | 2025-04-25 12:48 | P.HPSUR_ITS ---
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 Family history of polyps in the colon Fracture of neck of left humerus Humeral head fracture Insomnia Hypothyroidism Seropositive rheumatoid arthritis Leukopenia Gingivitis History of breast cancer Estrogen receptor positive status [ER+] Ductal carcinoma in situ (DCIS) of left breast Autoimmune disorder PTSD (post-traumatic stress disorder) COVID-19 Bilateral knee pain Fibromyalgia Schatzki's ring Rheumatoid arthritis Small bowel motility disorder Osteoporosis Raynaud's disease without gangrene Anxiety Primary insomnia Constipation Acquired hypothyroidism Systemic lupus erythematosus Left temporomandibular joint disorder, unspecified Surgical History Hx of abdominoplasty History of esophagogastroduodenoscopy (EGD) Hx of colonoscopy History of bilateral mastectomy History of total abdominal hysterectomy and bilateral salpingo-oophorectomy History of cholecystectomy History of tubal ligation History of section Present Medications: see Short Stay Collaborative assessment Allergies: Allergies Allergy/AdvReac Type Severity Reaction Status Date / Time Sulfa (Sulfonamide Allergy Severe Itching Verified 04/22/25 15:13 Antibiotics) codeine (CODEINE) Allergy Intermediate ITCHING Verified 04/22/25 15:13 hydroxychloroquine (From Allergy Intermediate VOMITING Verified 04/22/25 15:13 PLAQUENIL) morphine (MORPHINE) Allergy Intermediate ITCHING Verified 04/22/25 15:13 Estrogens Allergy Mild Unknown Verified 04/22/25 15:13 levothyroxine sodium Allergy Unknown rash,throat Verified 04/22/25 15:13 closes prednisone Allergy Unknown Unknown Verified 04/22/25 15:13 Corticosteroids AdvReac Severe DIFFICULTY Verified 04/22/25 15:13 (Glucocorticoids) BREATHING (CORTICOSTEROIDS (GLUCOCORTICOIDS)) escitalopram (From Lexapro) AdvReac Severe seizure Verified 04/22/25 15:13 meloxicam AdvReac Severe Gastrointestinal Verified 04/22/25 15:13 Upset tadalafil (From Cialis) AdvReac Intermediate Nausea and Verified 04/22/25 15:13 Vomiting acetaminophen (Percocet) AdvReac Unknown Unknown Verified 04/22/25 15:13 duloxetine AdvReac Unknown Unknown Verified 04/22/25 15:13 fluconazole AdvReac Unknown Itch, pain, Verified 04/22/25 15:13 Review of Systems Review of Systems Comment: Ten point ROS negative Exam Exam Comment: Gen appear: No acute distress HEENT: no icterus Chest: No overt resp distress Abd: soft, nontender, nondistended Psych: Stable affect, answering questions appropriately Neuro: A/Ox3 noted to move all extremities spontaneously Ext: no peripheral edema Plan Diagnosis/Plan: Unchanged I have reviewed the history and physical and performed a pertinent physical examination on my patient. No changes have occurred unless specified. Time Spent With Patient Time: Total time managing care of this patient today ____ minutes.
--- NOTE | 2025-04-25 13:47 | P.OP_ITS ---
Operative Note Operative Note Date of Service: 04/25/25 Narrative: Procedure: Esophagogastroduodenoscopy Endoscopist: Haritha Barreto MD Indication: Dysphagia Anesthesia Provider: Dr Maldonado Martin Anesthesia Type: MAC ?? EGD Procedure:?? The procedure, indications, preparation and potential complications were reviewed with the patient with the help of repair servicer, who indicated understanding and gave written informed consent to proceed. A physical exam was performed. The endoscope was introduced through the mouth, and advanced to the second part of duodenum. The mucosa was carefully examined on slow withdrawal of the endoscope. The patient tolerated the procedure well. There were no immediate complications.? ? EGD Findings:? * Esophagus:? Normal mucosa noted in the entire esophagus. The Z line was at 39 cm displaced by a small hiatal hernia with the diaphragmatic hiatus at 40 cm. * Stomach:? Normal mucosa was noted in the stomach. Retroflexion was performed in the cardia. * Duodenum:? Normal mucosa was noted in the whole of the examined duodenum. Additional intervention: Soft tip Savary wire was introduced through the biopsy channel of the gastroscope and advanced to the antrum. ?The gastroscope was then backed out. ?Savary Autumn bougie was advanced over the guidewire and the esophagus was dilated from 16 to 18 mm with resistance felt. 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 ? ? EGD Impressions:? * Esophageal web (dilation) * Normal stomach * Normal duodenum ?? Recommendations:?? * Cont PPI therapy * Take magic mouthwash as needed BID/TID x 2 days * Avoid NSAIDs. Above has been reviewed with the patient.
[2025-04-25 13:54] VITALS: BP 102/55; PULSE 74; RESP 26; TEMP 36.6; O2SAT 97
[2025-04-25 14:09] VITALS: BP 109/58; PULSE 74; RESP 20; O2SAT 97
[2025-04-25 14:25] VITALS: BP 120/43; PULSE 71; RESP 16; TEMP 36.7; O2SAT 100
== END 2025-04-25 14:52 | disposition home or self-care (01) ==
PROVIDERS: PCP Internal Medicine; Visit Provider Internal Medicine
PROC: 0DJ08ZZ Inspection of Upper Intestinal Tract, Via Natural or Artificial Opening Endoscopic (ICD-10-PCS; CPT 43235; principal; 2025-04-25 12:10)
DX: R13.10 Dysphagia, unspecified (principal); Q39.4 Esophageal web; K21.9 Gastro-esophageal reflux disease without esophagitis; K44.9 Diaphragmatic hernia without obstruction or gangrene
CPT/HCPCS: 43248; C1769; J2003; J2704

== ENCOUNTER → 2025-04-25 11:20 | Outpatient (BNV) | payer OTHER, SELFPAY | PROVIDERS: PCP Internal Medicine; Visit Provider Internal Medicine | DX: R13.10 Dysphagia, unspecified (principal); K44.0 Diaphragmatic hernia with obstruction, without gangrene | CPT/HCPCS: 43248 ==

== ENCOUNTER 2025-04-29 15:42 | Outpatient (AMB) | payer OTHER, SELFPAY ==
--- NOTE | 2025-04-29 16:01 | MHC.OFFWIV ---
Intake Vital Signs 04/29/25 16:02 Height 5 ft 2 in Weight 118 lb BMI 21.6 BP 130/72 Blood Pressure Location Lt brachial Position Sitting Pulse 92 Pulse Source Pulse Oximeter Temp 98.1 F Temp Source Oral Pulse Oximetry (%) 100 Oxygen Delivery Method Room Air Intake Visit Reasons: EP Back pain, abdominal pain Intake Note: pt presents with mid abdominal pain that radiates to mid back and down legs with nausea x1 wk Patient Tobacco Use Status: Never used Tobacco Allergies Sulfa (Sulfonamide Antibiotics) Allergy (Severe, Verified 04/29/25 16:04) Itching codeine (CODEINE) Allergy (Intermediate, Verified 04/29/25 16:04) ITCHING hydroxychloroquine (From PLAQUENIL) Allergy (Intermediate, Verified 04/29/25 16:04) VOMITING morphine (MORPHINE) Allergy (Intermediate, Verified 04/29/25 16:04) ITCHING Estrogens Allergy (Mild, Verified 04/29/25 16:04) Unknown levothyroxine sodium Allergy (Unknown, Verified 04/29/25 16:04) rash,throat closes prednisone Allergy (Unknown, Verified 04/29/25 16:04) Unknown Corticosteroids (Glucocorticoids) (CORTICOSTEROIDS (GLUCOCORTICOIDS)) Adverse Reaction (Severe, Verified 04/29/25 16:04) DIFFICULTY BREATHING escitalopram (From Lexapro) Adverse Reaction (Severe, Verified 04/29/25 16:04) seizure meloxicam Adverse Reaction (Severe, Verified 04/29/25 16:04) Gastrointestinal Upset tadalafil (From Cialis) Adverse Reaction (Intermediate, Verified 04/29/25 16:04) Nausea and Vomiting acetaminophen (Percocet) Adverse Reaction (Unknown, Verified 04/29/25 16:04) Unknown duloxetine Adverse Reaction (Unknown, Verified 04/29/25 16:04) Unknown fluconazole Adverse Reaction (Unknown, Verified 04/29/25 16:04) Itch, pain, Do you need a note to return to daycare/school/sports/work: No HPI HPI Comments History of Present Illness Details 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 History of Present Illness - The patient is a 59 year old female with a past med hx of left bundle branch block, heart palpitations, vertigo, bipolar II disorder, migraines, dysphagia, GERD, anemia, osteoarthritis, cystitis, carpal tunnel syndrome, dystonia, polyarthralgia, fibromyalgia, lupus, and cardiomyopathy presenting with worsening abdominal pain and back pain for the last few days. - She reports a one-week history of worsening, sharp, knife-like abdominal pain. - The pain is constant when standing or sitting and is severe enough to cause a decreased appetite, although eating does not exacerbate it. - Associated symptoms include nausea and the sensation of needing to vomit, but she has not had any episodes of emesis, diarrhea, or constipation. - Her last bowel movement was this morning and was normal in appearance and consistency, no blood or black in the stool. - The pain is not typical of her diagnosed fibromyalgia. - She does not take any PPI's saying her GI doc took her off of them a while ago. She tells me it does not feel like reflux. - She also is complaining of acute on chronic low back pain that radiates down her left leg. - Again, she says the pain is not typical of her fibromyalgia - Her surgical history is significant for a cholecystectomy years ago. - Her medical history is notable for cardiomyopathy, for which she is followed by cardiology and has an ejection fraction of 44% with grade 1 diastolic dysfunction as of September 2024. - Other chronic conditions include - she is asking for an injection of Toradol today as she has had it before with good relief of her back pain. She tells me she does not have any kidney issues, she has not taken any NSAIDs in the past 6-8 hours. Review of Systems - CONSTITUTIONAL: Reports fatigue. - GASTROINTESTINAL: Reports abdominal pain for one week, loss of appetite, and nausea. Denies vomiting, diarrhea, constipation, or hematochezia/melena. - CARDIOVASCULAR: Denies chest pain or dizziness. - RESPIRATORY: Denies shortness of breath or dyspnea. - MUSCULOSKELETAL: Reports pain in the lower back radiating down the leg. All systems reviewed and are unremarkable except as noted in HPI Physical Exam General: Cooperative, healthy appearing, comfortable, no acute distress and well developed Orientation: Patient oriented x3 Limitations: No limitations Head: Normal to inspection Ears: Hearing grossly normal bilaterally Nose: Normal External nose present Face and sinus: Normal facial exam Eyes: Appearance normal, both eyes and all related structures Neck: Normal visual inspection and Yes full ROM Respiratory: Normal respiratory effort and able to speak in complete sentences. Clear to auscultation throughout, no wheezes, rales and rhonchi. Cardiac: Regular rate and rhythm, Normal S1 and S2, no murmurs, rubs or gallops GI: normoactive bs, soft, mild TTP with deep palpation mid abdomen superior to umbilicus but not epigastric, neg Sopchoppy, neg McBurney's Skin: No rashes or lesions noted Neuro: Patient oriented x3, gait normal Back/spine: No tenderness to palpation of the cervical thoracic or lumbar spine, mild tenderness to palpation of the bilateral lumbar back left greater than right. Extremities: Normal to inspection, neg straight leg bilaterally PFSH Medical History (Updated 04/29/25 @ 16:34 by Hedy Cerda PA-C) Back pain GERD (gastroesophageal reflux disease) Seborrhea capitis in adult Headache Osteopenia SOB (shortness of breath) Bipolar depression Arthralgia Recurrent cystitis History of breast cancer in female Bipolar 1 disorder Chronic idiopathic constipation Depression Chronic pruritus Vitamin D deficiency Polyarthralgia Small bowel motility disorder Urinary frequency Abdominal pannus Positive sm/[employer]BI[employer]UTIONS ARCHITECT antibody Family history of polyps in the colon Fracture of neck of left humerus Chronic gastritis Insomnia Hypothyroidism Seropositive rheumatoid arthritis Leukopenia Gingivitis History of breast cancer Estrogen receptor positive status [ER+] Ductal carcinoma in situ (DCIS) of left breast Autoimmune disorder PTSD (post-traumatic stress disorder) Fibromyalgia Schatzki's ring Rheumatoid arthritis Small bowel motility disorder Osteoporosis Raynaud's disease without gangrene Anxiety Primary insomnia Acquired hypothyroidism Systemic lupus erythematosus Left temporomandibular joint disorder, unspecified Surgical History Hx of abdominoplasty History of esophagogastroduodenoscopy (EGD) Hx of colonoscopy History of bilateral mastectomy History of total abdominal hysterectomy and bilateral salpingo-oophorectomy History of cholecystectomy History of tubal ligation History of section Family History Father Prostate cancer Hypertension Mother Breast cancer Hypertension Asthma Maternal Aunt Breast cancer Maternal Grandmother Colon cancer Maternal Aunt Breast cancer Sister Bone cancer Social History Household Members: Children Household Members Other:: 2 daughters and 3 dogs Housing: House Do you presently have visiting nurse or other home services: No Alcohol intake: never Patient Tobacco Use Status: Never used Tobacco Tobacco use type: Cigarette e-Cigarette/Vaping Use: Never Used Second Hand Smoke Exposure: No Advance Directives Date on File: 08/12/20 service: No Current occupational status: disabled Current occupational exposures/hazards: No Sexual orientation: Straight/Heterosexual Gender identity: Female Cognitive needs: Yes (cane) Hearing needs: No Vision needs: Yes (Glasses) Female Reproductive History Menstrual Age of Menarche: 10 Physical Exam Vital Signs: Last Vital Signs Temp 98.1 F 04/29/25 16:02 Pulse 92 04/29/25 16:02 BP 130/72 04/29/25 16:02 Pulse Ox 100 04/29/25 16:02 Oxygen Delivery Method Room Air 04/29/25 16:02 BMI result Body Mass Index 21.6 Office Meds ketorolac 30 mg/mL (1 mL) injection solution Performing Provider: Hedy Cerda PA-C Performing Location: [facility] Administered by: Nancy Peterson on 04/29/25 16:41 Dose Route Admin Location Dispensed Lot Number Expiration Date [facility] [employer] 30 mg IM left gluteus 1 mL [id number] 07/18/25 8244-4014-82 [employer] Total Dispensed Waste 1 mL 0 % Assessment & Plan Assessment & Plan (1) Back pain: Code(s): M54.9 - Dorsalgia, unspecified Qualifiers: Back pain laterality: left Back pain location: low back pain Chronicity: chronic Sciatica presence: without sciatica Qualified Code(s): M54.50 - Low back pain, unspecified; G89.29 - Other chronic pain Plan: We administered an intramuscular injection of Toradol today for her back pain. Last BUN and creatinine from last month are within normal limits. Patient has received the medication before with good relief of her pain. Reminded patient not to take any NSAIDs in the next 6-8 hours. She is advised to follow up with her primary care physician, Dr. Davila in the next one to two weeks for a more comprehensive workup. The patient was instructed to go to the emergency department if her symptoms acutely worsen. (2) Abdominal pain in female: Code(s): R10.9 - Unspecified abdominal pain Plan: The patient is a 59-year-old female with a complex medical history presenting with one week of worsening, sharp abdominal pain radiating to her back and leg, which is atypical in nature. The exam reveals tenderness in the mid-upper abdomen and bilateral lower back. Given the atypical presentation, a definitive diagnosis is unclear. The plan is to manage her symptoms and facilitate further evaluation with her PCP. There are no red flag symptoms to warrant sending her to the ED. Her vital signs are stable and she is well-appearing in her physical exam was unremarkable. Recommended if her abdominal pain gets worse, she can go to the emergency department. She will be prescribed dicyclomine for abdominal cramping and pain. Reached out to her PCP's office to see if we can get her a follow up appointment in the coming 1-2 weeks. Plan Patient was informed and verbally consented to the use of an ambient scribe for clinic note documentation during this visit. Orders: Orders AMB Ketorolac Injection 04/29/25 M54.9 - Dorsalgia, unspecified Medications: New dicyclomine 10 mg PO TID 10 caps 0RF Discontinued solifenacin (Vesicare) Discontinued Reason: Patient Completed Course 5 mg PO DAILY 30 days 30 tabs 3RF Coding Level of Care Code Est Pt Level 4 (22110) Diagnoses Chronic left-sided low back pain without sciatica M54.50; G89.29 Back pain laterality: left Back pain location: low back pain Chronicity: chronic Sciatica presence: without sciatica Abdominal pain in female R10.9
[2025-04-29 16:02] VITALS: BP 130/72; PULSE 92; TEMP 36.7; O2SAT 100; BMI 21.6
--- OUTSIDE RECORDS SUMMARY | 2025-04-29 18:54 | XMS_ITS | Encounter Summary ---
Author Organization [employer] Address [address] [facility] [address] [place] [address] Care Team Providers Care Grades 1 Thru 6 Home Teacher Name Role Phone Unavailable Primary Care Provider Unavailabl e Encounter Details Date Type Department Care Team (Latest Contact Info) Description 07/09/2018 Abstract [facility] CONVERSIONS Dental, Provider, DDS Social History [...]
--- OUTSIDE RECORDS SUMMARY | 2025-04-29 18:54 | XMS_ITS | Clinical Summary ---
Author Organization [facility] Prior to 09/28/24 Address [address] [place] [address] Care Team Providers Care Verifier Name Role Phone Chuck Davila MD Primary Care Provider [phone] Allergies Active Allergy Reactions Criticality Noted Date [...] age to complete this topic Care Teams Verifier Relationship Specialty Start Date End Date Chuck Davila MD [address] [place] [address] [place] [address] PCP - General Internal Medicine 04/07/23
--- OUTSIDE RECORDS SUMMARY | 2025-04-29 18:54 | XMS_ITS | Clinical Summary ---
Author Organization [facility] Address [address] [place] [address] Care Team Providers Care Mud Analysis Supervisor Name Role Phone Chuck Davila MD [...] age to complete this topic Care Teams Mud Analysis Supervisor Relationship Specialty Start Date End Date Chuck Davila MD [address] [place] [address] Dr [address] ANJU Huerta PCP - General 04/07/23
--- OUTSIDE RECORDS SUMMARY | 2025-04-29 18:54 | XMS_ITS | Clinical Summary ---
Author Organization [employer] Address [address] [place] [address] [address] [place] [address] Care Team Providers Care Salt Lifter Name Role Phone Unavailable Primary Care Provider [...]
== END 2025-04-29 17:17 | disposition home or self-care (01) ==
PROVIDERS: PCP Internal Medicine; Visit Provider Physician Assistant
DX: M54.9 Dorsalgia, unspecified (principal)

== ENCOUNTER → 2025-04-29 15:42 | Outpatient (BNVA) | payer OTHER, SELFPAY | PROVIDERS: PCP Internal Medicine; Visit Provider Physician Assistant | DX: M54.50 Low back pain, unspecified (principal); G89.29 Other chronic pain | CPT/HCPCS: 96372; 99212; J1885 ==